=== PATIENT | female | born 1950 | race Caucasian/White ===

== ENCOUNTER 2018-03-16 17:01 | Inpatient (IN) | payer MEDICARE ==
[~2018-03-16] VITALS: Ht 160 cm; Wt 132.6 kg
--- NOTE | 2018-03-16 18:11 | PM&R H&P / Post Admit Assess ---
History of Present Illness HPI/Chief Complaint CC: Debility following left knee replacement uncomplicated per Dr Aleman HPI: This is a 68yoWF clinic patient of Dr Andre Barreto in [place] who presents to the IRF following DC from [facility] in [place] after an uncomplicated left knee replacement but having debility and significant hypoxia during exertion precluding a fast recovery following elective surgery so she was admitted for Pulmonology consultation along with intense therapy in order to optimize her recovery and return home with her . She had her right knee replaced in 2010 and had a long recovery. Patient is maintained on CPAP for DOM but had not required home O2 in the past but has had extensive cardiac history in [facility] in [place] s/p stent in the past. She has required an increase in her Prozac due to tearfulness while at [place] yesterday along with prn Xanax so that will be monitored closely also. Source: patient Exam Limitations: no limitations Date Seen 03/16/18 Time Seen by a Provider: 18:30 Attending Physician Tricia Mccormick DO PCP Dr Andre Barreto Referring Physician Date of Admission Home Medications & Allergies Home Medications Reviewed patient Home Medication Reconciliation performed by pharmacy medication reconciliations concrete engineering technician and/or nursing. Patients Allergies have been reviewed. 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) Smoking Status: Never a Smoker Seasonal Allergies Seasonal Allergies: No Past Medical History Surgeries: Abdominal (exp lap appy), Orthopedic Respiratory: Chronic Bronchitis, Sleep Apnea Currently Using CPAP: Yes Currently Using BIPAP: No Cardiac: Chronic Edema/Swelling, Coronary Artery Disease, High Cholesterol, Hypertension Gastrointestinal: Chronic Constipation Musculoskeletal: Arthritis, Chronic Back Pain Psychosocial: Anxiety, Depression Review of Systems Constitutional: dizziness, malaise, weakness EENTM: no symptoms reported Respiratory: dyspnea on exertion, short of breath, wheezing Cardiovascular: no symptoms reported Gastrointestinal: constipation Genitourinary: no symptoms reported Musculoskeletal: joint pain Skin: no symptoms reported Psychiatric/Neurological: Anxiety, Depressed, Emotional Problems All Other Systems Reviewed Negative Unless Noted: Yes Physical Exam Exam Vital Signs Vital Signs Date Time Temp Pulse Resp B/P (MAP) Pulse Ox O2 Delivery O2 Flow Rate FiO2 03/17/18 09:06 97 Room Air 03/17/18 08:07 89 111/70 (84) 03/17/18 06:29 2.00 03/17/18 05:31 98.3 18 Capillary Refill : General Appearance: No Apparent Distress, WD/WN, Chronically ill, Obese HEENT: PERRL/EOMI, TMs Normal, Normal ENT Inspection, Pharynx Normal, Moist Mucous Membranes Neck: Full Range of Motion, Normal Inspection, Non Tender, Supple Respiratory: Chest Non Tender, Lungs Clear, Normal Breath Sounds, No Accessory Muscle Use, No Respiratory Distress, Decreased Breath Sounds Cardiovascular: Regular Rate, Rhythm, No Edema, No Gallop, No JVD, No Murmur, Normal Peripheral Pulses Gastrointestinal: Normal Bowel Sounds, No Organomegaly, No Pulsatile Mass, Non Tender, Soft Extremity: Normal Capillary Refill, Normal Inspection, Normal Range of Motion ( except left leg post op site), Non Tender, No Calf Tenderness, No Pedal Edema Neurologic/Psychiatric: Alert, Oriented x3, No Motor/Sensory Deficits, Normal Mood/Affect Skin: Normal Color, Warm/Dry Lymphatic: No Adenopathy Results Results/Procedures Labs Laboratory Tests 03/17/18 05:25 Patient resulted labs reviewed. Assessment/Plan Assessment and Plan Assess & Plan/Chief Complaint Assessment: Right total knee replacement POD # 2 Hypoxia requiring supplemental oxygen new onset Chronic bronchitis Anemia s/p surgery DVT prophylaxis with Eliquis DOM on CPAP HTN HLP CAD s/p stent Chronic constipation Depression Anxiety Obesity OAB Insomnia Plan: IRF Monitor depression and hypoxia closely Obtain ECHO and Cardiology records at [place] (1) Status post left knee replacement (2) Anemia due to blood loss, acute (3) Oxygen dependent Onset Date: ~ 03/14/2018 (4) Chronic bronchitis (5) DOM on CPAP (6) CAD (coronary artery disease) (7) Stented coronary artery (8) Depression (9) Anxiety (10) Hypertension (11) Hyperlipidemia (12) Tearfulness (13) Overactive bladder (14) Constipation (15) Insomnia (16) DVT prophylaxis Post Admission Physician Asses Date seen by provider: Mar 16, 2018 Time seen by provider: 18:30 The preadmission screen agrees with the post admission assessment that the patient is a good candidate for inpatient rehabilitation. The patient will have a comprehensive program of inpatient rehabilitation with a goal of maximizing level of functional independence prior to discharge home with family. The patient will have PT/OT ninety minutes per day, each discipline, five days a week for gait, strengthening, conditioning, balance, ADLs, any patient/family/caregiver training as necessary. Speech therapy to do cognitive assessment and treat as indicated. Rehabilitation nursing to assist with bowel, bladder, skin, wound care, medication administration, pain management. Fur Coat Sewer to assist with discharge planning, community reentry. SCD's for DVT prophylaxis. She appears to be well motivated to participate in three hours of therapy a day. She should be able to tolerate three hours of therapy a day from a medical standpoint. She should benefit from the three hours of therapy a day. She has a reasonable discharge plan, reasonable discharge rehabilitation goals and a supportive family. She has various comorbidities that need to be closely monitored with medications and treatments adjusted on a daily basis as needed. These include: [] Barriers to discharge for this patient who had been independent prior to this are for her to be modified independent to supervision for ADLs and mobility skills prior to discharge home with [family], so as to lessen the burden of the caregivers. Risks for this patient include: 1. Fall 2. Fracture 3. DVT 4. Pulmonary embolism 5. Wound infection 6. Skin breakdown 7. Contractures 8. Poorly controlled pain 9. Urinary retention 10. UTI 11. Respiratory infection 12. Aspiration Estimated Length of Stay: 7 days Prognosis: Rehab prognosis appears good for goal of discharge home with family modified independent to supervision for ADLs and mobility skills. TRICIA MCCORMICK DO Mar 16, 2018 18:11
[2018-03-16] MEDS ORDERED: BISACODYL 10 MG SUPP (DULCOLAX) PR PRN (18:15)
[2018-03-16] MEDS ORDERED: PATIENT MAY USE OWN MEDS, ALL MC SCH (18:15)
[2018-03-16] MEDS ORDERED: ONDANSETRON 4 MG (ZOFRAN) ORAL DISSOLVE TAB PO PRN (18:15)
[2018-03-16] MEDS ORDERED: ALPRAZolam 0.25 MG (XANAX) TAB PO PRN (18:15)
[2018-03-16] MEDS ORDERED: guaiFENesin/CODEINE (ROBITUSSIN AC) 10ML UDC PO PRN (18:15)
[2018-03-16] MEDS ORDERED: diphenhydrAMINE 25 MG TAB (BENADRYL) PO PRN (18:15)
[2018-03-16] MEDS ORDERED: CALCIUM CARBONATE 500 MG (TUMS) TAB.CHEW PO PRN (18:15)
[2018-03-16] MEDS ORDERED: ACETAMINOPHEN 500 MG TAB (TYLENOL) PO PRN (18:15)
[2018-03-16] MEDS ORDERED: MELATONIN 3 MG TABLET PO PRN (18:15)
[2018-03-16] MEDS ORDERED: LOPERAMIDE 2 MG (IMODIUM) CAP PO PRN (18:15)
[2018-03-16 18:52] VITALS: BP 114/71
--- NOTE | 2018-03-16 18:53 | NUR ---
Admitted to room 224-1, with an admitting diagnosis of debility post TKR, on 03/16/18 from [place] in [facility] , accompanied by .KETTY CENTENO introduced to surroundings, call light, bed controls, phone, TV, temperature control, lights, meal times, smoking policy, visitor policy, side rail policy, bathrooms and showers. Patient Rights given to patient in the handbook.KETTY CENTENO verbalizes understanding that [facility] is not responsible for the loss or damage to any personal effects or valuables that are kept in the patients posession during their hospitalization. The following Patient Care Plans were discussed with the : Discharge Planning, ,, and , potential for injury r/t fall. KETTY CENTENO verbalizes understanding of Interdisciplinary Patient Education. Patient and/or family were informed about the Rapid Response Team and its purpose. Patient received Patient Rights Booklet, which includes Privacy Act Statement and Data Collection Information Summary.
--- OUTSIDE RECORDS SUMMARY | 2018-03-16 19:07 | XMS REPORT ---
Author Author [facility] Medical Staff Organization [facility] Address [address], [place] [address] Phone [phone] Care Team Providers Care Hooker Operator Name Role Phone CHIQUITA ALFARO MD PP [phone] Summary purpose TRANSITION OF CARE AUTO GENERATION Chief Complaint and Reason for Visit Admit Diagnosis 1 PHYSICAL THERAPY NEC Problem list No authorized problems tracked for continuity of care are available for this visit. Encounters No authorized problems tracked for encounter diagnoses are available for this visit. Medications No medications recorded for this patient visit Allergies, adverse reactions, alerts Allergen Category Ingredient Status Reaction Severity Onset Penicillins Drug Allergy Penicillins Confirmed or Verified Hives Sulfa (Sulfonamide Antibiotics) Drug Allergy Sulfa (Sulfonamide Antibiotics) Confirmed or Verified Hives Zinc Drug Allergy Zinc Confirmed or Verified Hives Immunizations No immunizations recorded for this patient visit Relevant diagnostic tests and/or laboratory data No authorized results are available for this patient visit History of procedures No procedures recorded for this patient visit. Functional status No functional or cognitive status observations are available for this visit. Vital signs No authorized vital signs are available for this visit. Social history No Social History or smoking status observations were recorded for this visit. ( Unknown if ever smoked.) Treatment Plan No treatment plan text is available for this visit. Hospital discharge instructions No discharge instruction text is available for this visit.
--- OUTSIDE RECORDS SUMMARY | 2018-03-16 19:07 | XMS REPORT ---
Author Author [facility] Medical Staff Organization [facility] Address [address], [place] [address] Phone [phone] Care Team Providers Care Telesales Advisor Name Role Phone CHIQUITA ALFARO MD PP [phone] Summary purpose TRANSITION OF CARE AUTO GENERATION [...]
--- OUTSIDE RECORDS SUMMARY | 2018-03-16 19:07 | XMS REPORT ---
Author Author [employer] [facility] Medical Staff Organization [facility] Address [address] [place], [place] [address] Phone [phone] Care Team Providers Care Human Service Worker Name Role Phone CHIQUITA ALFARO MD PP [phone] Summary purpose TRANSITION OF CARE AUTO GENERATION [...]
--- OUTSIDE RECORDS SUMMARY | 2018-03-16 19:07 | XMS REPORT ---
Author Author [facility] Medical Staff Organization [facility] Address [address] [place], [place] [address] Phone [phone] Care Team Providers Care Edge Stripper Name Role Phone CHIQUITA ALFARO MD PP [phone] Summary purpose TRANSITION OF CARE AUTO GENERATION Chief Complaint and Reason for Visit Admit Diagnosis 1 PHYSICAL THERAPY NEC Problem list No authorized problems tracked for continuity of care are available for this visit. Encounters No authorized problems tracked for encounter diagnoses are available for this visit. Medications No home medications recorded for this patient visit Allergies, [...] for this patient visit History of procedures Procedure Code Code Type Description Date Performed Performing Physician 11497 CPT-4 THERAPEUTIC EXERCISES 04-23-2014 CHIQUITA ALFARO 87873 CPT-4 PT EVALUATION 04-23-2014 CHIQUITA ALFARO G8978 CPT-4 MOBILITY CURRENT STATUS 04-23-2014 CHIQUITA ALFARO G8979 CPT-4 MOBILITY GOAL STATUS 04-23-2014 CHIQUITA ALFARO Functional status No functional or cognitive status [...]
--- OUTSIDE RECORDS SUMMARY | 2018-03-16 19:07 | XMS REPORT ---
Author [facility] Medical [facility] Organization [facility] Address [address], [place] [address] Phone [phone] Summary purpose TRANSITION OF CARE AUTO GENERATION Chief Complaint and Reason for Visit No authorized Reason for Visit (Admitting Diagnosis) is available for this visit. Problem list No authorized problems tracked for [...] visit Relevant diagnostic tests and/or laboratory data RESULTS Radiology Results [id number] Bilateral Screen Digital Mammo PACs Image DATE OF EXAM: 2015 [facility] 0845-BILAT SCREEN DIG MAMMO : RADIOLOGY REPORT DATE OF SERVICE: 08/23/15 HISTORY: Screening for possible malignant neoplasm. BILATERAL DIGITAL SCREENING MAMMOGRAPHIC STUDY WITH iCAD SecondLook 7.2-H+ 1035 HOURS There is predominantly fatty parenchyma bilaterally. Asymmetric areas of fibrous tissue and intramammary type lymph node densities in the superior lateral right and left breast demonstrated. No distinct mass, stellate lesion, or abnormal stippled clustered calcification can be seen. Compared to the prior study dated 02/27/2014, 03/07/2010, interval change is not seen. Yearly mammography is recommended. CAD imaging does indicate benign calcifications vascular type bilaterally and an asymmetric fibrous tissue on the left oblique and cephalocaudad view benign presentation. IMPRESSION: 1. Stable mammographic study with no evidence of malignant change. 2. BI-RAD breast assessment category II benign finding. DO BA Jauregui/ellis 08/23/2015 10:48:00 / 08/23/2015 11:26:48 cc:Dr. Andre Alfaro This document has been electronically Signed by: On: DATE OF EXAM: 2015 [facility] 0845-BILAT SCREEN DIG MAMMO : RADIOLOGY REPORT DATE OF SERVICE: 08/23/15 HISTORY: Screening for possible malignant neoplasm. BILATERAL DIGITAL SCREENING MAMMOGRAPHIC STUDY WITH iCAD SecondLook 7.2-H+ 1035 HOURS There is predominantly fatty parenchyma bilaterally. Asymmetric areas of fibrous tissue and intramammary type lymph node densities in the superior lateral right and left breast demonstrated. No distinct mass, stellate lesion, or abnormal stippled clustered calcification can be seen. Compared to the prior study dated 02/27/2014, 03/07/2010, interval change is not seen. Yearly mammography is recommended. CAD imaging does indicate benign calcifications vascular type bilaterally and an asymmetric fibrous tissue on the left oblique and cephalocaudad view benign presentation. IMPRESSION: 1. Stable mammographic study with no evidence of malignant change. 2. BI-RAD breast assessment category II benign finding. Thomas Faria DO /wi 08/23/2015 10:48:00 / 08/23/2015 11:26:48 cc:Dr. Andre Alfaro This document has been electronically Signed by: THOMAS FARIA DO On: 2015 12:58P Result Amended on 2015-08-23 at 12:58:30. Previous status was [place]. History of procedures Procedure Code Code Type Description Date Performed Performing Physician 03822 CPT-4 MAMMOGRAM, SCREENING 08-23-2015 ANDRE ALFARO 51181 CPT-4 COMP SCREEN MAMMOGRAM ADD-ON 08-23-2015 ANDRE ALFARO Functional status No functional or cognitive [...]
--- OUTSIDE RECORDS SUMMARY | 2018-03-16 19:07 | XMS REPORT ---
Author Author [facility] Medical Staff Organization [facility] Address [address] [place], [place] [address] Phone [phone] Care Team Providers Care Sand Screener Operator Name Role Phone CHIQUITA ALFARO MD PP [phone] Summary purpose TRANSITION OF CARE AUTO GENERATION [...] Code Type Description Date Performed Performing Physician 20014 CPT-4 THERAPEUTIC EXERCISES 04-23-2014 CHIQUITA ALFARO 32243 CPT-4 PT EVALUATION 04-23-2014 CHIQUITA ALFARO [id number] [...]
--- OUTSIDE RECORDS SUMMARY | 2018-03-16 19:07 | XMS REPORT ---
Author Author [facility] Medical Staff Organization [facility] Address [address], [place] [address] Phone [phone] Summary purpose TRANSITION OF CARE AUTO GENERATION [...] tests and/or laboratory data RESULTS Radiology Results [id number] Bilateral Screen Digital Mammo PACs Image DATE OF EXAM: 2015 [facility] 0845-BILAT SCREEN DIG MAMMO : RADIOLOGY REPORT [...] 08/23/2015 10:48:00 / 08/23/2015 11:26:48 cc:Dr. Andre Barreto This document has been electronically Signed by: On: DATE OF EXAM: 2015 [facility] 0845-BILAT SCREEN DIG MAMMO : RADIOLOGY REPORT [...] category II benign finding. Thomas Faria DO WP/pr 08/23/2015 10:48:00 / 08/23/2015 11:26:48 cc:Dr. Andre Barreto This document has been electronically Signed by: THOMAS FARIA DO On: 2015 12:58P Result Amended on 2015-08-23 at 12:58:30. Previous status was [place]. History of procedures No procedures recorded for [...]
--- OUTSIDE RECORDS SUMMARY | 2018-03-16 19:08 | XMS REPORT | Clinical Summary ---
Author Author Admin, [place] Organization [facility] Address Unknown Phone Unavailable Allergies, Adverse Reactions, Alerts Allergy Name Reaction Description Start Date Severity Status Provider SULFA Mild No Longer Active Jillina Frazell CERTIFIED ALCOHOL AND DRUG COUNSELOR PENICILLIN Mild No Longer Active Jillina Frazell CERTIFIED ALCOHOL AND DRUG COUNSELOR ZINC Mild No Longer Active Jillina Frazell CERTIFIED ALCOHOL AND DRUG COUNSELOR SULFA Critical No Longer Active Marcelle Yesi RMA PENICILLIN Critical No Longer Active Marcelle Yesi RMA ZINC Critical No Longer Active Marcelle Yesi RMA PENICILLIN UNK Inactive Red Funes MA ZINC UNK Inactive Red Funes MA SULFA UNK Inactive Red Funes MA Conditions or Problems Problem Name Problem Code Onset Date Status Entry Date Provider Comment Standard Description Annotate Hyperlipidemia 272.4 Refinement Andre Barreto MD Other and unspecified hyperlipidemia Mixed hyperlipidemia 272.4 Active Andre Barreto MD Other and unspecified hyperlipidemia Hypertension 401.9 Inactive Andre Barreto MD Unspecified essential hypertension Hypertension, benign essential, controlled 401.1 Active Andre Barreto MD Benign essential hypertension DYSPNEA 786.09 Resolved Andre Barreto MD Other dyspnea and respiratory abnormality FATIGUE 780.79 Resolved Andre Barreto MD Other malaise and fatigue DYSPNEA 786.05 Resolved Andre Barreto MD Shortness of breath Coronary artery disease 414.00 Active Andre Barreto MD Coronary atherosclerosis of unspecified type of vessel, [place] or graft Obstructive sleep apnea 327.23 Active Andre Barreto MD Obstructive sleep apnea (adult) (pediatric) Health screening V70.0 Refinement Andre Barreto MD Routine general medical examination at a health care facility Well Adult Exam V70.0 Active Andre Barreto MD Routine general medical examination at a health care facility Fever 780.60 Resolved Andre Barreto MD Fever, unspecified Actinic keratosis 702.0 Resolved Andre Barreto MD Actinic keratosis Seborrheic keratosis 702.19 Resolved Andre Barreto MD Other seborrheic keratosis Skin tag 701.9 Resolved Andre Barreto MD Unspecified hypertrophic and atrophic conditions of skin Elevated blood sugar 790.29 Inactive Marcelle [facility] Other abnormal glucose Glucose intolerance 271.3 Active Andre Barreto MD Intestinal disaccharidase deficiencies and disaccharide malabsorption Osteoarthritis, knee, left 715.96 Active Andre Barreto MD Osteoarthrosis, unspecified whether generalized or localized, involving lower leg Weakness, muscle 728.87 Resolved Andre Barreto MD Muscle weakness (generalized) Dyshidrotic eczema, hands 705.81 Resolved Andre Barreto MD Dyshidrosis Depression 311 Refinement Andre Barreto MD Depressive disorder, not elsewhere classified Major depressive disorder, single episode, moderate 311 Active Andre Barreto MD Depressive disorder, not elsewhere classified Insomnia, chronic 307.42 Active Andre Barreto MD Persistent disorder of initiating or maintaining sleep Urinary incontinence, urge 788.31 Active Andre Barreto MD Urge incontinence Bronchitis, chronic 491.9 Active Andre Barreto MD Unspecified chronic bronchitis Postmenopausal status V49.81 Resolved Andre Barreto MD Asymptomatic postmenopausal status (age-related) (natural) Family history of osteoporosis V17.81 Resolved Andre Barreto MD Family history of osteoporosis Unsteady gait 781.2 Resolved Andre Barreto MD Abnormality of gait Continuous positive airway pressure rx V46.2 Resolved Andre Barreto MD Other dependence on machines, supplemental oxygen Osteopenia 733.90 Active Pushpa Hernandez APRN Disorder of bone and cartilage, unspecified Obstructive sleep apnea 327.23 Active Andre Barreto MD Obstructive sleep apnea (adult) (pediatric) Acute exacerbation of chronic bronchitis 491.22 Inactive Solitario Howe MD Obstructive chronic bronchitis with acute bronchitis Sinusitis 473.9 Resolved Andre Barreto MD Unspecified sinusitis (chronic) Abscess, skin 682.9 Resolved Andre Barreto MD Cellulitis and abscess of unspecified sites Benign paroxysmal positional vertigo 386.11 Resolved Andre Barreto MD Benign paroxysmal positional vertigo Body Mass Index 50.0-59.9 Adult Active Andre Barreto MD Body Mass Index 50.0-59.9, adult Obesity Class III (BMI >=40) Active Andre Barreto MD Morbid obesity DYSPNEA ICD-786.09 Inactive Andre Barreto MD 2012 FATIGUE ICD-780.79 Inactive Andre Barreto MD 2012 DYSPNEA ICD-786.05 Inactive Andre Barreto MD 2012 Fever ICD-780.60 Inactive Andre Barreto MD 05/23 Actinic keratosis ICD-702.0 Inactive Andre Barreto MD Seborrheic keratosis ICD-702.19 Inactive Andre Barreto MD Skin tag ICD-701.9 Inactive Andre Barreto MD 2014 Weakness, muscle ICD-728.87 Inactive Andre Barreto MD Dyshidrotic eczema, hands ICD-705.81 Inactive Andre Barreto MD Postmenopausal status ICD-V49.81 Inactive Andre Barreto MD Family history of osteoporosis ICD-V17.81 Inactive Andre Barreto MD Unsteady gait ICD-781.2 Inactive Andre Barreto MD Continuous positive airway pressure rx ICD-V46.2 Inactive Andre Barreto MD Acute exacerbation of chronic bronchitis ICD-491.22 Inactive Solitario Howe MD Sinusitis ICD-473.9 Inactive Andre Barreto MD Abscess, skin ICD-682.9 Inactive Andre Barreto MD Benign paroxysmal positional vertigo ICD-386.11 Inactive Andre Barreto MD Medication List Medication Instructions Start Date Stop Date Generic Name NDC Status Provider Patient Instruction PREDNISONE 20 MG ORAL TABLET 2 po qd x 4 days, then 1 po qd x 4 days, then 0.5 po qd x 4 days PREDNISONE 08229187549 Active Andre Barreto MD Active DOXYCYCLINE MONOHYDRATE 100 MG ORAL CAPSULE 1 po BID x 10 days DOXYCYCLINE MONOHYDRATE 26789554428 No Longer Active Andre Barreto MD Active TUSSIONEX PENNKINETIC ER 10-8 MG/5ML ORAL SUSPENSION EXTENDED RELEASE 5ml po q12hr PRN Cough HYDROCOD POLST-CHLORPHEN POLST 07073108125 Active Andre Barreto MD Active ADVAIR DISKUS 250-50 MCG/DOSE INHALATION AEROSOL POWDER BREATH ACTIVATED 1 INH BID FLUTICASONE-SALMETEROL 95162090909 Active Andre Barreto MD Active MYRBETRIQ 25 MG ORAL TABLET EXTENDED RELEASE 24 HOUR 1 po qd MIRABEGRON 73400745113 Active Andre Barreto MD Active TRAMADOL HCL 50 MG ORAL TABLET 2 po q 6 hrs prn TRAMADOL HCL 78019558029 No Longer Active Andre Barreto MD Active MECLIZINE HCL 25 MG ORAL TABLET 1 po q8hr PRN Dizziness MECLIZINE HCL 64314795950 No Longer Active Andre Barreto MD Active MELOXICAM 15 MG ORAL TABLET 1 po qd PRN Pain MELOXICAM 68365500812 Active Andre Barreto MD Active ATORVASTATIN CALCIUM 40 MG ORAL TABLET 1 po qHS ATORVASTATIN CALCIUM 53705704814 No Longer Active Andre Barreto MD Active ATORVASTATIN CALCIUM 20 MG ORAL TABLET 1 po MWF ATORVASTATIN CALCIUM 91995635174 Active Andre Barreto MD Active GUAIFENESIN DM 400-20 MG ORAL TABLET 1 pill by mouth twice daily, if needed for cough DEXTROMETHORPHAN-GUAIFENESIN 34847958459 No Longer Active Andre Barreto MD Active BACTROBAN 2 % EXTERNAL OINTMENT Apply to affected area BID 05/18 MUPIROCIN 95999172007 No Longer Active Moira Price MA Active CLINDAMYCIN HCL 300 MG ORAL CAPSULE 1 po QID x 7 days CLINDAMYCIN HCL 91208114449 No Longer Active David King APRN Active BACTRIM DS 800-160 MG ORAL TABLET 1 tab by mouth twice daily 2017 TRIMETHOPRIM-SULFAMETHOXAZOLE 26671306963 No Longer Active Javanllkinza King APRN Active CEFDINIR 300 MG ORAL CAPSULE by mouth twice a day CEFDINIR 49557880765 No Longer Active David Montsemaury REYNA Active BENZONATATE 200 MG ORAL CAPSULE 1 three times a day as needed for cough 03/27 BENZONATATE 09477736312 No Longer Active Luna Prabhakar Active ZITHROMAX Z-NEVAEH 250 MG ORAL TABLET 2 today and then 1 daily for 4 days 03/27 AZITHROMYCIN 05300670569 No Longer Active Luna Prabhakar Active PREDNISONE 20 MG ORAL TABLET 2 daily for 3 days then 1 daily for 3 days 03/27 PREDNISONE 45831271782 No Longer Active Luna Prabhakar Active CLOPIDOGREL BISULFATE 75 MG ORAL TABLET 1 po qd CLOPIDOGREL BISULFATE 59741583911 Active Andre Barreto MD Active FUROSEMIDE 20 MG ORAL TABLET 1 po qd PRN Edema FUROSEMIDE 37733302143 Active Andre Barreto MD Active PROAIR HFA 108 (90 Base) MCG/ACT INHALATION AEROSOL SOLUTION 2 puffs q4hr PRN Shortness of air/Wheezing ALBUTEROL SULFATE 28123468798 Active Andre Barreto MD Active ATORVASTATIN CALCIUM 80 MG ORAL TABLET 1 po qHS ATORVASTATIN CALCIUM 23601433317 No Longer Active Andre Barreto MD Active AMBIEN 5 MG ORAL TABLET 1 po qHS PRN Insomnia ZOLPIDEM TARTRATE 22732327439 Active Andre Barreto MD Active DETROL 2 MG ORAL TABLET 1 po qd TOLTERODINE TARTRATE 77694952177 Active Andre Barreto MD Active NITROGLYCERIN 0.4 MG SUBLINGUAL TABLET SUBLINGUAL 1 SL q5min PRN Chest pain up to 3 doses NITROGLYCERIN 55938879664 Active Andre Barreto MD Active TOPROL XL 50 MG ORAL TABLET EXTENDED RELEASE 24 HOUR 1 po qd METOPROLOL SUCCINATE 52695464115 Active Andre Barreto MD Active FLUOXETINE HCL 40 MG ORAL CAPSULE 1 po qd FLUOXETINE HCL 29400602552 Active Andre Barreto MD Active BENICAR HCT 40-25 MG ORAL TABLET Take one by mouth daily OLMESARTAN MEDOXOMIL-HCTZ 06038534698 No Longer Active Andre Barreto MD Active LOSARTAN POTASSIUM-HCTZ 100-25 MG ORAL TABLET 1 po qd LOSARTAN POTASSIUM-HCTZ 75210801374 Active Andre Barreto MD Active BETAMETHASONE DIPROPIONATE 0.05 % EXTERNAL OINTMENT Apply to affected areas BID for up to 2 weeks BETAMETHASONE DIPROPIONATE 59401598542 No Longer Active Andre Barreto MD Active ZOFRAN 4 MG ORAL TABLET 1 po q6hr PRN Nausea ONDANSETRON HCL 59024847290 No Longer Active Andre Barreto MD Active CIPRO 500 MG ORAL TABLET 1 tablet by mouth twice daily CIPROFLOXACIN HCL 52085362337 No Longer Active Andre Barreto MD Active SYMBICORT 160-4.5 MCG/ACT INHALATION AEROSOL 2 puffs inhaled bid BUDESONIDE-FORMOTEROL FUMARATE 48327194058 No Longer Active Andre Barreto MD Active DICLOFENAC SODIUM 75 MG ORAL TABLET DELAYED RELEASE 1 tablet by mouth twice daily DICLOFENAC SODIUM 46078286568 No Longer Active Andre Barreto MD Active PROZAC 40 MG ORAL CAPSULE 1 cap by mouth at bedtime FLUOXETINE HCL 35500920229 No Longer Active Andre Barreto MD Active HYDROCODONE-ACETAMINOPHEN 5-325 MG ORAL TABLET 1 po q 6hr PRN Pain HYDROCODONE-ACETAMINOPHEN 71432180385 No Longer Active Andre Barreto MD Active HYDROCODONE-ACETAMINOPHEN 5-325 MG ORAL TABLET 1 po q 6hr PRN Pain HYDROCODONE-ACETAMINOPHEN 5-325 MG ORAL TABLET 967122 HYDROCODONE- ACETAMINOPHEN Inactive PROZAC 40 MG ORAL CAPSULE 1 cap by mouth at bedtime PROZAC 40 MG ORAL CAPSULE 764989 FLUOXETINE HCL Inactive DICLOFENAC SODIUM 75 MG ORAL TABLET DELAYED RELEASE 1 tablet by mouth twice daily DICLOFENAC SODIUM 75 MG ORAL TABLET DELAYED RELEASE 691414 DICLOFENAC SODIUM Inactive SYMBICORT 160-4.5 MCG/ACT INHALATION AEROSOL 2 puffs inhaled bid SYMBICORT 160-4.5 MCG/ACT INHALATION AEROSOL BUDESONIDE-FORMOTEROL FUMARATE Inactive ZOFRAN 4 MG ORAL TABLET 1 po q6hr PRN Nausea ZOFRAN 4 MG ORAL TABLET 227857 ONDANSETRON HCL Inactive BETAMETHASONE DIPROPIONATE 0.05 % EXTERNAL OINTMENT Apply to affected areas BID for up to 2 weeks BETAMETHASONE DIPROPIONATE 0.05 % EXTERNAL OINTMENT 196402 BETAMETHASONE DIPROPIONATE Inactive BENICAR HCT 40-25 MG ORAL TABLET Take one by mouth daily BENICAR HCT 40-25 MG ORAL TABLET 884731 OLMESARTAN MEDOXOMIL-HCTZ Inactive ATORVASTATIN CALCIUM 80 MG ORAL TABLET 1 po qHS ATORVASTATIN CALCIUM 80 MG ORAL TABLET 450219 ATORVASTATIN CALCIUM Inactive PREDNISONE 20 MG ORAL TABLET 2 daily for 3 days then 1 daily for 3 days 03/27 PREDNISONE 20 MG ORAL TABLET 033825 PREDNISONE Inactive ZITHROMAX Z-NEVAEH 250 MG ORAL TABLET 2 today and then 1 daily for 4 days 03/27 ZITHROMAX Z-NEVAEH 250 MG ORAL TABLET 424213 AZITHROMYCIN Inactive BENZONATATE 200 MG ORAL CAPSULE 1 three times a day as needed for cough 03/27 BENZONATATE 200 MG ORAL CAPSULE 740262 BENZONATATE Inactive BACTRIM DS 800-160 MG ORAL TABLET 1 tab by mouth twice daily 2017 BACTRIM DS 800-160 MG ORAL TABLET 609765 TRIMETHOPRIM- SULFAMETHOXAZOLE Inactive BACTROBAN 2 % EXTERNAL OINTMENT Apply to affected area BID 05/18 BACTROBAN 2 % EXTERNAL OINTMENT MUPIROCIN Inactive GUAIFENESIN DM 400-20 MG ORAL TABLET 1 pill by mouth twice daily, if needed for cough GUAIFENESIN DM 400-20 MG ORAL TABLET 6002124 DEXTROMETHORPHAN-GUAIFENESIN Inactive ATORVASTATIN CALCIUM 40 MG ORAL TABLET 1 po qHS ATORVASTATIN CALCIUM 40 MG ORAL TABLET 161904 ATORVASTATIN CALCIUM Inactive MECLIZINE HCL 25 MG ORAL TABLET 1 po q8hr PRN Dizziness MECLIZINE HCL 25 MG ORAL TABLET 085914 MECLIZINE HCL Inactive TRAMADOL HCL 50 MG ORAL TABLET 2 po q 6 hrs prn TRAMADOL HCL 50 MG ORAL TABLET 173532 TRAMADOL HCL Inactive CIPRO 500 MG ORAL TABLET 1 tablet by mouth twice daily CIPRO 500 MG ORAL TABLET 549199 CIPROFLOXACIN HCL Inactive CEFDINIR 300 MG ORAL CAPSULE by mouth twice a day CEFDINIR 300 MG ORAL CAPSULE 060971 CEFDINIR Inactive CLINDAMYCIN HCL 300 MG ORAL CAPSULE 1 po QID x 7 days CLINDAMYCIN HCL 300 MG ORAL CAPSULE 599745 CLINDAMYCIN HCL Inactive DOXYCYCLINE MONOHYDRATE 100 MG ORAL CAPSULE 1 po BID x 10 days DOXYCYCLINE MONOHYDRATE 100 MG ORAL CAPSULE 2477805 DOXYCYCLINE MONOHYDRATE Inactive Advance Directives Directive Description Start Date DISCUSSED WITH PATIENT -- NO DECISION MADE Vital Signs Date Name Value Unit Range Description blood pressure, diastolic 78 mm[Hg] BP pat blood pressure, systolic 154 mm[Hg] BP sys height E&M 63 [in_us] Bdy height pulse rate E&M 69 /min Heart rate temperature E&M 99.4 [degF] Body temperature weight E&M 290 [lb_av] Weight Measured blood pressure, diastolic 76 mm[Hg] BP pat blood pressure, systolic 142 mm[Hg] BP sys height E&M 63 [in_us] Bdy height pulse rate E&M 74 /min Heart rate temperature E&M 98.7 [degF] Body temperature weight E&M 288.80 [lb_av] Weight Measured blood pressure, diastolic 76 mm[Hg] BP pat blood pressure, systolic 138 mm[Hg] BP sys height E&M 63 [in_us] Bdy height pulse rate E&M 71 /min Heart rate temperature E&M 97.5 [degF] Body temperature weight E&M 283.50 [lb_av] Weight Measured blood pressure, diastolic 64 mm[Hg] BP pat blood pressure, systolic 143 mm[Hg] BP sys height E&M 63 [in_us] Bdy height pulse rate E&M 88 /min Heart rate temperature E&M 99.1 [degF] Body temperature weight E&M 281.50 [lb_av] Weight Measured blood pressure, diastolic 68 mm[Hg] BP pat blood pressure, systolic 137 mm[Hg] BP sys height E&M 63 [in_us] Bdy height pulse rate E&M 68 /min Heart rate temperature E&M 97.3 [degF] Body temperature weight E&M 281.5 [lb_av] Weight Measured blood pressure, diastolic 71 mm[Hg] BP pat blood pressure, systolic 148 mm[Hg] BP sys height E&M 63 [in_us] Bdy height pulse rate E&M 71 /min Heart rate temperature E&M 98.6 [degF] Body temperature weight E&M 280 [lb_av] Weight Measured blood pressure, diastolic 73 mm[Hg] BP pat blood pressure, systolic 119 mm[Hg] BP sys height E&M 63 [in_us] Bdy height pulse rate E&M 67 /min Heart rate temperature E&M 98.4 [degF] Body temperature weight E&M 279 [lb_av] Weight Measured blood pressure, diastolic 80 mm[Hg] BP pat blood pressure, systolic 130 mm[Hg] BP sys height E&M 63 [in_us] Bdy height pulse rate E&M 72 /min Heart rate temperature E&M 98.6 [degF] Body temperature weight E&M 280 [lb_av] Weight Measured blood pressure, diastolic 76 mm[Hg] BP pat blood pressure, systolic 176 mm[Hg] BP sys height E&M 63 [in_us] Bdy height pulse rate E&M 92 /min Heart rate temperature E&M 98 [degF] Body temperature weight E&M 278 [lb_av] Weight Measured blood pressure, diastolic 68 mm[Hg] BP pat blood pressure, systolic 149 mm[Hg] BP sys height E&M 63 [in_us] Bdy height pulse rate E&M 59 /min Heart rate temperature E&M 98.6 [degF] Body temperature weight E&M 284.31 [lb_av] Weight Measured blood pressure, diastolic 52 mm[Hg] BP pat blood pressure, systolic 136 mm[Hg] BP sys height E&M 63 [in_us] Bdy height pulse rate E&M 52 /min Heart rate temperature E&M 99.3 [degF] Body temperature weight E&M 281.5 [lb_av] Weight Measured Diagnostic Results Date Name Value Unit Range Description Lab Report: CBC - Hematology leukocyte count, blood 8.1 10^3/MM^3 10*3/mm3 4.6-10.2 erythrocyte (RBC) count 3.96 10^6/MM^3 10*6/mm3 3.80-5.80 hemoglobin, blood 12.4 g/dL 12.0-16.0 hematocrit, blood 38.3 % 37.0-47.0 mean corpuscular volume, RBC 97 fL 80-97 mean corpuscular hemoglobin, RBC 31.3 pg 27.0-31.2 mean corpuscular hemoglobin concentration, RBC 32.4 G/DL % 31.8- 35.4 red blood cell distribution width 13.1 % 11.6-14.8 platelet count 247 10^3/MM^3 10*3/mm3 142-424 Lab Report: Comp. Metabolic Panel - Chemistry sodium, serum 139 mmol/L 094-167 0042/05/04 carbon dioxide, venous blood 28.7 mmol/L 21.0-32.0 potassium, serum 4.2 mmol/L 3.5-5.2 chloride, serum 102 mmol/L 98-107 blood glucose 120 mg/dL 65-95 urea nitrogen, blood 19 mg/dL 7-18 creatinine, serum 0.99 mg/dL 0.60-1.30 alanine aminotransferase (SGPT), serum 40 U/L 12-78 aspartate aminotransferase (SGOT), serum 23 U/L 15-37 calcium, serum 9.4 mg/dL 8.5-10.1 bilirubin, serum, total 0.50 mg/dL 0.00-1.00 Lab Report: HGBA1C, Lipid Panel - Chemistry hemoglobin A1C, blood, as % of total hemoglobin 6.2 % 4.3-6.0 cholesterol, serum 302 mg/dL 661-846 3040/05/04 triglyceride, serum, fasting 145 mg/dL 30-200 HDL cholesterol, serum 61 mg/dL 32-60 LDL cholesterol, serum 212 mg/dL 0-130 Lab Report: Lipid Panel, HGBA1C, MICROALB/CREAT W/RATIO, Comp. Metabolic ... - Chemistry cholesterol, serum 240 mg/dL 671-504 8538/12/18 triglyceride, serum, fasting 119 mg/dL 30-200 HDL cholesterol, serum 51 mg/dL 32-60 LDL cholesterol, serum 165 mg/dL 0-130 hemoglobin A1C, blood, as % of total hemoglobin 6.3 % 4.3-6.0 sodium, serum 139 mmol/L 597-086 7290/12/18 carbon dioxide, venous blood 25.9 mmol/L 21.0-32.0 potassium, serum 3.9 mmol/L 3.5-5.2 chloride, serum 100 mmol/L 98-107 blood glucose 117 mg/dL 65-95 urea nitrogen, blood 23 mg/dL 7-18 creatinine, serum 1.01 mg/dL 0.60-1.30 Estimated Glomerular Filtration Rate (calc) 58 (?) mL/min/1.73m2 =OR > 60 mL/min alanine aminotransferase (SGPT), serum 36 U/L 12-78 aspartate aminotransferase (SGOT), serum 21 U/L 15-37 calcium, serum 9.5 mg/dL 8.5-10.1 bilirubin, serum, total 0.40 mg/dL 0.00-1.00 Lab Report: Lipid Panel, HGBA1C, MICROALB/CREAT W/RATIO, Comp. Metabolic ... - Lab Alkaline phosphatase 109 50-136 microalbumin, urine 30 mg/L 0-19 Lab Report: Lipid Panel, HGBA1C, MICROALB/CREAT W/RATIO, Comp. Metabolic ... - Urinalysis microalbumin/total urine volume <30 mg/g Normal mg/g mg/L 0-29 Encounters Code Encounter Date Provider Facility CPT-01070 Level 3 Est. Patient 14:11:29 FIELD SALES CONSULTANT Andre Barreto MD [facility] CPT-31072 Level 4 Est. Patient 10:54:33 FIELD SALES CONSULTANT Andre Barreto MD [facility] CPT-63386 Level 4 Est. Patient 09:44:36 CDT Andre Barreto MD [facility] CPT-13689 Level 4 Est. Patient 10:07:14 CDT Andre Barreto MD [facility] CPT-77037 Level 3 Est. Patient 14:29:01 CDT Esa Jackson MD [facility] CPT-17200 Level 3 Est. Patient 14:06:16 CDT Andre Barreto MD [facility] CPT-87039 Level 3 Est. Patient 09:16:36 CDT David King [facility] CPT-70411 Level 3 Est. Patient 09:24:01 FIELD SALES CONSULTANT David King [facility] CPT-75468 Level 3 Est. Patient 13:01:07 FIELD SALES CONSULTANT Solitario Howe MD [facility] CPT-14104 Level 4 Est. Patient 10:26:48 FIELD SALES CONSULTANT Andre Barreto MD [facility] CPT-40078 Level 4 Est. Patient 09:45:06 CDT Andre Barreto MD [facility] CPT-72925 Level 4 Est. Patient 11:53:39 FIELD SALES CONSULTANT Andre Barreto MD [facility] CPT-94157 Level 4 Est. Patient 14:21:31 CDT Andre Barreto MD [facility] CPT-95927 Level 4 Est. Patient 15:24:17 CDT Andre Barreto MD [facility] CPT-80324 Level 3 Est. Patient 10:36:40 CDT Andre Barreto MD [facility] CPT-51002 Level 4 Est. Patient 11:27:43 CDT Andre Barreto MD [facility] CPT-11952 Level 3 Est. Patient 10:57:31 FIELD SALES CONSULTANT Andre Barreto MD [facility] CPT-31729 Level 3 Est. Patient 13:53:13 FIELD SALES CONSULTANT Andre Barreto MD [facility] CPT-69621 Level 3 Est. Patient 09:16:12 CDT Andre Barreto MD [facility] CPT-78901 Level 3 Est. Patient 14:50:35 CDT Andre Barreto MD [facility] Procedures Code Procedure Name Date Entry Date Standard Description CPT-000 Give Immunizations Due 11:57:53 CDT CPT-000 Give Appropriate Flu Vaccine 10:54:34 FIELD SALES CONSULTANT CPT-G0439 Subsequent Annual Wellness Exam 10:54:34 FIELD SALES CONSULTANT CPT-82689 Bone Density - XRAY USE ONLY 11:55:39 CDT CPT-63038 Postop F/U Visit 14:31:27 CDT CPT-75335 Postop F/U Visit 14:30:20 CDT CPT-06984 Sono pelvis coley bladder only - XRAY USE ONLY 15:07:39 CDT CPT-58293 First Vx - Ix admin for Medicare patients 13:56:44 FIELD SALES CONSULTANT CPT-56959 Zostavax Subcutaneous Solution Reconstituted 10473 UNT/0.65ML 12/22 13:56:44 FIELD SALES CONSULTANT CPT-G0009 Administration of Pneumococcal Vaccine 10:12:50 CDT CPT-89334 Pneumovax 23 Injection Injectable 25 MCG/0.5ML 10:12:50 CDT CPT-G0439 Subsequent Annual Wellness Exam 09:49:25 CDT CPT-44334 First Vx - Ix admin for Medicare patients 17:55:11 FIELD SALES CONSULTANT CPT-74136 Fluzone High-Dose Intramuscular Suspension 17:55:11 FIELD SALES CONSULTANT CPT-04077 Venipuncture Draw Fee 14:11:36 CDT CPT-23778 Lipid - LAB USE ONLY 14:11:36 CDT CPT-63465 CMP - LAB USE ONLY 14:11:36 CDT CPT-G0438 Initial Annual Wellness Exam 13:29:06 CDT CPT-G0009 Administration of Pneumococcal Vaccine 13:26:57 CDT CPT-67111 Prevnar 13 Intramuscular Suspension 13:26:56 CDT 08/19 CPT-53170 Bone Density - XRAY USE ONLY 09:30:16 CDT CPT-Cryo Cryotherapy 08:59:26 FIELD SALES CONSULTANT CPT-Cryo Cryotherapy 08:46:02 CDT CPT-84043 Chest 2V Frontal and Lat 14:02:13 FIELD SALES CONSULTANT
--- OUTSIDE RECORDS SUMMARY | 2018-03-16 19:08 | XMS REPORT | Clinical Summary ---
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 SULFA Critical No Longer Active Marcelle Yesi [...] Coronary atherosclerosis of unspecified type of vessel, [place] or graft Obstructive sleep apnea 327.23 Active [...] Elevated blood sugar 790.29 Inactive Marcelle Key A Other abnormal glucose Glucose intolerance 271.3 Active [...] 0.5 po qd x 4 days PREDNISONE 66673453769 Active Andre Barreto MD Active DOXYCYCLINE MONOHYDRATE 100 MG ORAL CAPSULE 1 po BID x 10 days DOXYCYCLINE MONOHYDRATE 58968784755 Active Andre Barreto MD Active TUSSIONEX PENNKINETIC ER 10-8 MG/5ML ORAL SUSPENSION EXTENDED RELEASE 5ml po q12hr PRN Cough HYDROCOD POLST-CHLORPHEN POLST 23325425422 Active Andre Barreto MD Active ADVAIR DISKUS 250-50 MCG/DOSE INHALATION AEROSOL POWDER BREATH ACTIVATED 1 INH BID FLUTICASONE-SALMETEROL 16547554551 Active Andre Barreto MD Active MYRBETRIQ 25 MG ORAL TABLET EXTENDED RELEASE 24 HOUR 1 po qd MIRABEGRON 78456711960 Active Andre Barreto MD Active TRAMADOL HCL 50 MG ORAL TABLET 2 po q 6 hrs prn TRAMADOL HCL 25182935160 No Longer Active Andre Barreto MD Active MECLIZINE HCL 25 MG ORAL TABLET 1 po q8hr PRN Dizziness MECLIZINE HCL 10218819831 No Longer Active Andre Barreto MD Active MELOXICAM 15 MG ORAL TABLET 1 po qd PRN Pain MELOXICAM 14867186635 Active Andre Barreto MD Active ATORVASTATIN CALCIUM 40 MG ORAL TABLET 1 po qHS ATORVASTATIN CALCIUM 57638430358 No Longer Active Andre Barreto MD Active ATORVASTATIN CALCIUM 20 MG ORAL TABLET 1 po MWF ATORVASTATIN CALCIUM 63338078636 Active Andre Barreto MD Active GUAIFENESIN DM 400-20 MG ORAL TABLET 1 pill by mouth twice daily, if needed for cough DEXTROMETHORPHAN-GUAIFENESIN 62471378109 No Longer Active Andre Barreto MD Active BACTROBAN 2 % EXTERNAL OINTMENT Apply to affected area BID 05/18 MUPIROCIN 53264111885 No Longer Active Moira Price MA Active CLINDAMYCIN HCL 300 MG ORAL CAPSULE 1 po QID x 7 days CLINDAMYCIN HCL 02053862023 No Longer Active David King APRN Active BACTRIM DS 800-160 MG ORAL TABLET 1 tab by mouth twice daily 2017 TRIMETHOPRIM-SULFAMETHOXAZOLE 21014255478 No Longer Active Javanllkinza King APRN Active CEFDINIR 300 MG ORAL CAPSULE by mouth twice a day CEFDINIR 06255840141 No Longer Active David Montsemaury REYNA Active BENZONATATE 200 MG ORAL CAPSULE 1 three times a day as needed for cough 03/27 BENZONATATE 67625880979 No Longer Active Luna Prabhakar Active ZITHROMAX Z-NEVAEH 250 MG ORAL TABLET 2 today and then 1 daily for 4 days 03/27 AZITHROMYCIN 18476954862 No Longer Active Luna Prabhakar Active PREDNISONE 20 MG ORAL TABLET 2 daily for 3 days then 1 daily for 3 days 03/27 PREDNISONE 00208395234 No Longer Active Luna Prabhakar Active CLOPIDOGREL BISULFATE 75 MG ORAL TABLET 1 po qd CLOPIDOGREL BISULFATE 40660753527 Active Andre Barreto MD Active FUROSEMIDE 20 MG ORAL TABLET 1 po qd PRN Edema FUROSEMIDE 23113156273 Active Andre Barreto MD Active PROAIR HFA 108 (90 Base) MCG/ACT INHALATION AEROSOL SOLUTION 2 puffs q4hr PRN Shortness of air/Wheezing ALBUTEROL SULFATE 13954085578 Active Andre Barreto MD Active ATORVASTATIN CALCIUM 80 MG ORAL TABLET 1 po qHS ATORVASTATIN CALCIUM 83629055784 No Longer Active Andre Barreto MD Active AMBIEN 5 MG ORAL TABLET 1 po qHS PRN Insomnia ZOLPIDEM TARTRATE 44995374327 Active Andre Barreto MD Active DETROL 2 MG ORAL TABLET 1 po qd TOLTERODINE TARTRATE 24498158004 Active Andre Barreto MD Active NITROGLYCERIN 0.4 MG SUBLINGUAL TABLET SUBLINGUAL 1 SL q5min PRN Chest pain up to 3 doses NITROGLYCERIN 53677083817 Active Andre Barreto MD Active TOPROL XL 50 MG ORAL TABLET EXTENDED RELEASE 24 HOUR 1 po qd METOPROLOL SUCCINATE 70012404404 Active Andre Barreto MD Active FLUOXETINE HCL 40 MG ORAL CAPSULE 1 po qd FLUOXETINE HCL 09671055854 Active Andre Barreto MD Active BENICAR HCT 40-25 MG ORAL TABLET Take one by mouth daily OLMESARTAN MEDOXOMIL-HCTZ 96448657841 No Longer Active Andre Barreto MD Active LOSARTAN POTASSIUM-HCTZ 100-25 MG ORAL TABLET 1 po qd [place] POTASSIUM-HCTZ 65838651100 Active Andre Barreto MD Active BETAMETHASONE DIPROPIONATE 0.05 % EXTERNAL OINTMENT Apply to affected areas BID for up to 2 weeks BETAMETHASONE DIPROPIONATE 44838133837 No Longer Active Andre Barreto MD Active ZOFRAN 4 MG ORAL TABLET 1 po q6hr PRN Nausea ONDANSETRON HCL 93438810867 No Longer Active Andre Barreto MD Active CIPRO 500 MG ORAL TABLET 1 tablet by mouth twice daily CIPROFLOXACIN HCL 51851380120 No Longer Active Andre Barreto MD Active SYMBICORT 160-4.5 MCG/ACT INHALATION AEROSOL 2 puffs inhaled bid BUDESONIDE-FORMOTEROL FUMARATE 55194683119 No Longer Active Andre Barreto MD Active DICLOFENAC SODIUM 75 MG ORAL TABLET DELAYED RELEASE 1 tablet by mouth twice daily DICLOFENAC SODIUM 38736492268 No Longer Active Andre Barreto MD Active PROZAC 40 MG ORAL CAPSULE 1 cap by mouth at bedtime FLUOXETINE HCL 58439224737 No Longer Active Andre Barreto MD Active HYDROCODONE-ACETAMINOPHEN 5-325 MG ORAL TABLET 1 po q 6hr PRN Pain HYDROCODONE-ACETAMINOPHEN 28463162954 No Longer Active Andre Barreto MD Active HYDROCODONE-ACETAMINOPHEN 5-325 MG ORAL TABLET 1 po q 6hr PRN Pain HYDROCODONE-ACETAMINOPHEN 5-325 MG ORAL TABLET 342779 HYDROCODONE- ACETAMINOPHEN Inactive PROZAC 40 MG ORAL CAPSULE 1 cap by mouth at bedtime PROZAC 40 MG ORAL CAPSULE 042031 FLUOXETINE HCL Inactive DICLOFENAC SODIUM 75 MG ORAL TABLET DELAYED RELEASE 1 tablet by mouth twice daily DICLOFENAC SODIUM 75 MG ORAL TABLET DELAYED RELEASE 559540 DICLOFENAC SODIUM Inactive SYMBICORT 160-4.5 MCG/ACT INHALATION AEROSOL 2 puffs inhaled bid SYMBICORT 160-4.5 MCG/ACT INHALATION AEROSOL BUDESONIDE-FORMOTEROL FUMARATE Inactive ZOFRAN 4 MG ORAL TABLET 1 po q6hr PRN Nausea ZOFRAN 4 MG ORAL TABLET 226868 ONDANSETRON HCL Inactive BETAMETHASONE DIPROPIONATE 0.05 % EXTERNAL OINTMENT Apply to affected areas BID for up to 2 weeks BETAMETHASONE DIPROPIONATE 0.05 % EXTERNAL OINTMENT 306884 BETAMETHASONE DIPROPIONATE Inactive BENICAR HCT 40-25 MG ORAL TABLET Take one by mouth daily BENICAR HCT 40-25 MG ORAL TABLET 769020 OLMESARTAN MEDOXOMIL-HCTZ Inactive ATORVASTATIN CALCIUM 80 MG ORAL TABLET 1 po qHS ATORVASTATIN CALCIUM 80 MG ORAL TABLET 694066 ATORVASTATIN CALCIUM Inactive PREDNISONE 20 MG ORAL TABLET 2 daily for 3 days then 1 daily for 3 days 03/27 PREDNISONE 20 MG ORAL TABLET 014318 PREDNISONE Inactive ZITHROMAX Z-NEVAEH 250 MG ORAL TABLET 2 today and then 1 daily for 4 days 03/27 ZITHROMAX Z-NEVAEH 250 MG ORAL TABLET 378016 AZITHROMYCIN Inactive BENZONATATE 200 MG ORAL CAPSULE 1 three times a day as needed for cough 03/27 BENZONATATE 200 MG ORAL CAPSULE 565195 BENZONATATE Inactive BACTRIM DS 800-160 MG ORAL TABLET 1 tab by mouth twice daily 2017 BACTRIM DS 800-160 MG ORAL TABLET 664476 TRIMETHOPRIM- SULFAMETHOXAZOLE Inactive BACTROBAN 2 % EXTERNAL OINTMENT Apply to affected area BID 05/18 BACTROBAN 2 % EXTERNAL OINTMENT MUPIROCIN Inactive GUAIFENESIN DM 400-20 MG ORAL TABLET 1 pill by mouth twice daily, if needed for cough GUAIFENESIN DM 400-20 MG ORAL TABLET 3031240 DEXTROMETHORPHAN-GUAIFENESIN Inactive ATORVASTATIN CALCIUM 40 MG ORAL TABLET 1 po qHS ATORVASTATIN CALCIUM 40 MG ORAL TABLET 878687 ATORVASTATIN CALCIUM Inactive MECLIZINE HCL 25 MG ORAL TABLET 1 po q8hr PRN Dizziness MECLIZINE HCL 25 MG ORAL TABLET 567584 MECLIZINE HCL Inactive TRAMADOL HCL 50 MG ORAL TABLET 2 po q 6 hrs prn TRAMADOL HCL 50 MG ORAL TABLET 279709 TRAMADOL HCL Inactive CIPRO 500 MG ORAL TABLET 1 tablet by mouth twice daily CIPRO 500 MG ORAL TABLET 861672 CIPROFLOXACIN HCL Inactive CEFDINIR 300 MG ORAL CAPSULE by mouth twice a day CEFDINIR 300 MG ORAL CAPSULE 386889 CEFDINIR Inactive CLINDAMYCIN HCL 300 MG ORAL CAPSULE 1 po QID x 7 days CLINDAMYCIN HCL 300 MG ORAL CAPSULE 793345 CLINDAMYCIN HCL Inactive Advance Directives Directive Description Start Date [...] Panel - Chemistry sodium, serum 139 mmol/L 401-311 0106/05/04 carbon dioxide, venous blood 28.7 mmol/L 21.0-32.0 [...] 6.2 % 4.3-6.0 cholesterol, serum 302 mg/dL 193-994 3259/05/04 triglyceride, serum, fasting 145 mg/dL 30-200 HDL cholesterol, serum 61 mg/dL 32-60 LDL cholesterol, serum 212 mg/dL 0-130 Lab Report: Lipid Panel, HGBA1C, MICROALB/CREAT W/RATIO, Comp. Metabolic ... - Chemistry cholesterol, serum 240 mg/dL 060-839 8058/12/18 triglyceride, serum, fasting 119 mg/dL 30-200 HDL cholesterol, serum 51 mg/dL 32-60 LDL cholesterol, serum 165 mg/dL 0-130 hemoglobin A1C, blood, as % of total hemoglobin 6.3 % 4.3-6.0 sodium, serum 139 mmol/L 990-399 5795/12/18 carbon dioxide, venous blood 25.9 mmol/L 21.0-32.0 [...] 0-29 Encounters Code Encounter Date Provider Facility CPT-90771 Level 3 Est. Patient 14:11:29 [employer] Andre Barreto MD [facility] CPT-65715 Level 4 Est. Patient 10:54:33 [employer] Andre Barreto MD [facility] CPT-26037 Level 4 Est. Patient 09:44:36 CDT Andre Barreto MD [facility] CPT-31270 Level 4 Est. Patient 10:07:14 CDT Andre Barreto MD [facility] CPT-91904 Level 3 Est. Patient 14:29:01 CDT Esa Jackson MD [facility] CPT-55473 Level 3 Est. Patient 14:06:16 CDT Andre Barreto MD [facility] CPT-32520 Level 3 Est. Patient 09:16:36 CDT David King [facility] CPT-00009 Level 3 Est. Patient 09:24:01 [employer] David King [facility] CPT-48796 Level 3 Est. Patient 13:01:07 [employer] Solitario Howe MD [facility] CPT-76865 Level 4 Est. Patient 10:26:48 [employer] Andre Barreto MD [facility] CPT-78551 Level 4 Est. Patient 09:45:06 CDT Andre Barreto MD [facility] CPT-91778 Level 4 Est. Patient 11:53:39 [employer] Andre Barreto MD [facility] CPT-02996 Level 4 Est. Patient 14:21:31 CDT Andre Barreto MD [facility] CPT-81462 Level 4 Est. Patient 15:24:17 CDT Andre Barreto MD [facility] CPT-50728 Level 3 Est. Patient 10:36:40 CDT Andre Barreto MD [facility] CPT-30777 Level 4 Est. Patient 11:27:43 CDT Andre Barreto MD [facility] CPT-53674 Level 3 Est. Patient 10:57:31 [employer] Andre Barreto MD [facility] CPT-61303 Level 3 Est. Patient 13:53:13 [employer] Andre Barreto MD [facility] CPT-31888 Level 3 Est. Patient 09:16:12 CDT Andre Barreto MD [facility] CPT-73799 Level 3 Est. Patient 14:50:35 CDT Andre Barreto MD [facility] Procedures Code Procedure Name Date Entry Date Standard Description CPT-000 Give Immunizations Due 11:57:53 CDT CPT-000 Give Appropriate Flu Vaccine 10:54:34 [employer] CPT-G0439 Subsequent Annual Wellness Exam 10:54:34 [employer] CPT-46524 Bone Density - XRAY USE ONLY 11:55:39 CDT CPT-89901 Postop F/U Visit 14:31:27 CDT CPT-46791 Postop F/U Visit 14:30:20 CDT CPT-23707 Sono pelvis coley bladder only - XRAY USE ONLY 15:07:39 CDT CPT-73272 First Vx - Ix admin for Medicare patients 13:56:44 [employer] CPT-01361 Zostavax Subcutaneous Solution Reconstituted 97353 UNT/0.65ML 12/22 13:56:44 [employer] CPT-G0009 Administration of Pneumococcal Vaccine 10:12:50 CDT CPT-78533 Pneumovax 23 Injection Injectable 25 MCG/0.5ML 10:12:50 CDT CPT-G0439 Subsequent Annual Wellness Exam 09:49:25 CDT CPT-68760 First Vx - Ix admin for Medicare patients 17:55:11 [facility] CPT-41585 Fluzone High-Dose Intramuscular Suspension 17:55:11 [facility] CPT-54452 Venipuncture Draw Fee 14:11:36 CDT CPT-89482 Lipid - LAB USE ONLY 14:11:36 CDT CPT-05158 CMP - LAB USE ONLY 14:11:36 CDT CPT-G0438 Initial Annual Wellness Exam 13:29:06 CDT CPT-G0009 Administration of Pneumococcal Vaccine 13:26:57 CDT CPT-74580 Prevnar 13 Intramuscular Suspension 13:26:56 CDT 08/19 CPT-75670 Bone Density - XRAY USE ONLY 09:30:16 CDT CPT-Cryo Cryotherapy 08:59:26 [employer] CPT-Cryo Cryotherapy 08:46:02 CDT CPT-43407 Chest 2V Frontal and Lat 14:02:13 [employer]
--- OUTSIDE RECORDS SUMMARY | 2018-03-16 19:09 | XMS REPORT | Clinical Summary ---
Author Author Admin, EDUARDO Organization [employer] Address Unknown Phone Unavailable Allergies, Adverse Reactions, Alerts Allergy Name Reaction Description Start Date Severity Status Provider SULFA Mild No Longer Active Jillina Frazell GUIDE CRUISE PENICILLIN Mild No Longer Active Jillina Frazell GUIDE CRUISE ZINC Mild No Longer Active Jillina Frazell GUIDE CRUISE SULFA Critical No Longer Active Marcelle Yesi [...] Coronary atherosclerosis of unspecified type of vessel, [place] or graft Obstructive sleep apnea 327.23 Active [...] DYSPNEA ICD-786.05 Inactive Andre Barreto MD 2012 Actinic keratosis ICD-702.0 Inactive Andre Barreto MD Seborrheic keratosis ICD-702.19 Inactive Andre Barreto MD Skin tag ICD-701.9 Inactive Andre Barreto MD 2014 Fever ICD-780.60 Inactive Andre Barreto MD 05/23 Dyshidrotic eczema, hands ICD-705.81 Inactive Andre Barreto MD Postmenopausal status ICD-V49.81 Inactive Andre Barreto MD Family history of osteoporosis ICD-V17.81 Inactive Andre Barreto MD Unsteady gait ICD-781.2 Inactive Andre Barreto MD Continuous positive airway pressure rx ICD-V46.2 Inactive Andre Barreto MD Acute exacerbation of chronic bronchitis ICD-491.22 Inactive Solitario Howe MD Sinusitis ICD-473.9 Inactive Andre Barreto MD Abscess, skin ICD-682.9 Inactive Andre Brareto MD Benign paroxysmal positional vertigo ICD-386.11 Inactive Andre Barreto MD Weakness, muscle ICD-728.87 Inactive Andre Barreto MD Medication List Medication Instructions Start Date Stop Date Generic Name NDC Status Provider Patient Instruction PREDNISONE 20 MG ORAL TABLET 2 po qd x 4 days, then 1 po qd x 4 days, then 0.5 po qd x 4 days PREDNISONE 32593453179 Active Andre Barreto MD Active DOXYCYCLINE MONOHYDRATE 100 MG ORAL CAPSULE 1 po BID x 10 days DOXYCYCLINE MONOHYDRATE 83746241053 Active Andre Barreto MD Active TUSSIONEX PENNKINETIC ER 10-8 MG/5ML ORAL SUSPENSION EXTENDED RELEASE 5ml po q12hr PRN Cough HYDROCOD POLST-CHLORPHEN POLST 90306533712 Active Andre Barreto MD Active ADVAIR DISKUS 250-50 MCG/DOSE INHALATION AEROSOL POWDER BREATH ACTIVATED 1 INH BID FLUTICASONE-SALMETEROL 26152309874 Active Andre Barreto MD Active MYRBETRIQ 25 MG ORAL TABLET EXTENDED RELEASE 24 HOUR 1 po qd MIRABEGRON 14633512870 Active Andre Barreto MD Active TRAMADOL HCL 50 MG ORAL TABLET 2 po q 6 hrs prn TRAMADOL HCL 26678053145 No Longer Active Andre Barreto MD Active MECLIZINE HCL 25 MG ORAL TABLET 1 po q8hr PRN Dizziness MECLIZINE HCL 64010036463 No Longer Active Andre Barreto MD Active MELOXICAM 15 MG ORAL TABLET 1 po qd PRN Pain MELOXICAM 13742570544 Active Andre Barreto MD Active ATORVASTATIN CALCIUM 40 MG ORAL TABLET 1 po qHS ATORVASTATIN CALCIUM 93729856320 No Longer Active Andre Barreto MD Active ATORVASTATIN CALCIUM 20 MG ORAL TABLET 1 po MWF ATORVASTATIN CALCIUM 98463650615 Active Andre Barreto MD Active GUAIFENESIN DM 400-20 MG ORAL TABLET 1 pill by mouth twice daily, if needed for cough DEXTROMETHORPHAN-GUAIFENESIN 50851092935 No Longer Active Andre Barreto MD Active BACTROBAN 2 % EXTERNAL OINTMENT Apply to affected area BID 05/18 MUPIROCIN 25766100383 No Longer Active Moira Price MA Active CLINDAMYCIN HCL 300 MG ORAL CAPSULE 1 po QID x 7 days CLINDAMYCIN HCL 33716497673 No Longer Active David King APRN Active BACTRIM DS 800-160 MG ORAL TABLET 1 tab by mouth twice daily 2017 TRIMETHOPRIM-SULFAMETHOXAZOLE 41361138037 No Longer Active Javanllkinza King APRN Active CEFDINIR 300 MG ORAL CAPSULE by mouth twice a day CEFDINIR 50438182594 No Longer Active David Montsemaury REYNA Active BENZONATATE 200 MG ORAL CAPSULE 1 three times a day as needed for cough 03/27 BENZONATATE 70950625684 No Longer Active Luna Prabhakar Active ZITHROMAX Z-NEVAEH 250 MG ORAL TABLET 2 today and then 1 daily for 4 days 03/27 AZITHROMYCIN 12261225316 No Longer Active Luna Prabhakar Active PREDNISONE 20 MG ORAL TABLET 2 daily for 3 days then 1 daily for 3 days 03/27 PREDNISONE 47737006149 No Longer Active Luna Prabhakar Active CLOPIDOGREL BISULFATE 75 MG ORAL TABLET 1 po qd CLOPIDOGREL BISULFATE 71614489897 Active Andre Barreto MD Active FUROSEMIDE 20 MG ORAL TABLET 1 po qd PRN Edema FUROSEMIDE 09165323536 Active Andre Barreto MD Active PROAIR HFA 108 (90 Base) MCG/ACT INHALATION AEROSOL SOLUTION 2 puffs q4hr PRN Shortness of air/Wheezing ALBUTEROL SULFATE 77051129562 Active Andre Barreto MD Active ATORVASTATIN CALCIUM 80 MG ORAL TABLET 1 po qHS ATORVASTATIN CALCIUM 75375638999 No Longer Active Andre Barreto MD Active AMBIEN 5 MG ORAL TABLET 1 po qHS PRN Insomnia ZOLPIDEM TARTRATE 79275179887 Active Andre Barreto MD Active DETROL 2 MG ORAL TABLET 1 po qd TOLTERODINE TARTRATE 91545224292 Active Andre Barreto MD Active NITROGLYCERIN 0.4 MG SUBLINGUAL TABLET SUBLINGUAL 1 SL q5min PRN Chest pain up to 3 doses NITROGLYCERIN 14534798622 Active Andre Barreto MD Active TOPROL XL 50 MG ORAL TABLET EXTENDED RELEASE 24 HOUR 1 po qd METOPROLOL SUCCINATE 91307524889 Active Andre Barreto MD Active FLUOXETINE HCL 40 MG ORAL CAPSULE 1 po qd FLUOXETINE HCL 42500771239 Active Andre Barreto MD Active BENICAR HCT 40-25 MG ORAL TABLET Take one by mouth daily OLMESARTAN MEDOXOMIL-HCTZ 70173674540 No Longer Active Andre Barreto MD Active [place]ARTAN POTASSIUM-HCTZ 100-25 MG ORAL TABLET 1 po qd [place] POTASSIUM-HCTZ 27848247699 Active Andre Barreto MD Active BETAMETHASONE DIPROPIONATE 0.05 % EXTERNAL OINTMENT Apply to affected areas BID for up to 2 weeks BETAMETHASONE DIPROPIONATE 39743633768 No Longer Active Andre Barreto MD Active ZOFRAN 4 MG ORAL TABLET 1 po q6hr PRN Nausea ONDANSETRON HCL 24566185647 No Longer Active Andre Barreto MD Active CIPRO 500 MG ORAL TABLET 1 tablet by mouth twice daily CIPROFLOXACIN HCL 05752339168 No Longer Active Andre Barreto MD Active SYMBICORT 160-4.5 MCG/ACT INHALATION AEROSOL 2 puffs inhaled bid BUDESONIDE-FORMOTEROL FUMARATE 53150101037 No Longer Active Andre Barreto MD Active DICLOFENAC SODIUM 75 MG ORAL TABLET DELAYED RELEASE 1 tablet by mouth twice daily DICLOFENAC SODIUM 38535975280 No Longer Active Andre Barreto MD Active PROZAC 40 MG ORAL CAPSULE 1 cap by mouth at bedtime FLUOXETINE HCL 73814259984 No Longer Active Andre Barreto MD Active HYDROCODONE-ACETAMINOPHEN 5-325 MG ORAL TABLET 1 po q 6hr PRN Pain HYDROCODONE-ACETAMINOPHEN 92944023561 No Longer Active Andre Barreto MD Active HYDROCODONE-ACETAMINOPHEN 5-325 MG ORAL TABLET 1 po q 6hr PRN Pain HYDROCODONE-ACETAMINOPHEN 5-325 MG ORAL TABLET 721476 HYDROCODONE- ACETAMINOPHEN Inactive PROZAC 40 MG ORAL CAPSULE 1 cap by mouth at bedtime PROZAC 40 MG ORAL CAPSULE 965170 FLUOXETINE HCL Inactive DICLOFENAC SODIUM 75 MG ORAL TABLET DELAYED RELEASE 1 tablet by mouth twice daily DICLOFENAC SODIUM 75 MG ORAL TABLET DELAYED RELEASE 184413 DICLOFENAC SODIUM Inactive SYMBICORT 160-4.5 MCG/ACT INHALATION AEROSOL 2 puffs inhaled bid SYMBICORT 160-4.5 MCG/ACT INHALATION AEROSOL BUDESONIDE-FORMOTEROL FUMARATE Inactive ZOFRAN 4 MG ORAL TABLET 1 po q6hr PRN Nausea ZOFRAN 4 MG ORAL TABLET 914102 ONDANSETRON HCL Inactive BETAMETHASONE DIPROPIONATE 0.05 % EXTERNAL OINTMENT Apply to affected areas BID for up to 2 weeks BETAMETHASONE DIPROPIONATE 0.05 % EXTERNAL OINTMENT 751506 BETAMETHASONE DIPROPIONATE Inactive BENICAR HCT 40-25 MG ORAL TABLET Take one by mouth daily BENICAR HCT 40-25 MG ORAL TABLET 279204 OLMESARTAN MEDOXOMIL-HCTZ Inactive ATORVASTATIN CALCIUM 80 MG ORAL TABLET 1 po qHS ATORVASTATIN CALCIUM 80 MG ORAL TABLET 549321 ATORVASTATIN CALCIUM Inactive PREDNISONE 20 MG ORAL TABLET 2 daily for 3 days then 1 daily for 3 days 03/27 PREDNISONE 20 MG ORAL TABLET 499369 PREDNISONE Inactive ZITHROMAX Z-NEVAEH 250 MG ORAL TABLET 2 today and then 1 daily for 4 days 03/27 ZITHROMAX Z-NEVAEH 250 MG ORAL TABLET 945483 AZITHROMYCIN Inactive BENZONATATE 200 MG ORAL CAPSULE 1 three times a day as needed for cough 03/27 BENZONATATE 200 MG ORAL CAPSULE 260842 BENZONATATE Inactive BACTRIM DS 800-160 MG ORAL TABLET 1 tab by mouth twice daily 2017 BACTRIM DS 800-160 MG ORAL TABLET 233757 TRIMETHOPRIM- SULFAMETHOXAZOLE Inactive BACTROBAN 2 % EXTERNAL OINTMENT Apply to affected area BID 05/18 BACTROBAN 2 % EXTERNAL OINTMENT MUPIROCIN Inactive GUAIFENESIN DM 400-20 MG ORAL TABLET 1 pill by mouth twice daily, if needed for cough GUAIFENESIN DM 400-20 MG ORAL TABLET 7549367 DEXTROMETHORPHAN-GUAIFENESIN Inactive ATORVASTATIN CALCIUM 40 MG ORAL TABLET 1 po qHS ATORVASTATIN CALCIUM 40 MG ORAL TABLET 433877 ATORVASTATIN CALCIUM Inactive MECLIZINE HCL 25 MG ORAL TABLET 1 po q8hr PRN Dizziness MECLIZINE HCL 25 MG ORAL TABLET 155656 MECLIZINE HCL Inactive TRAMADOL HCL 50 MG ORAL TABLET 2 po q 6 hrs prn TRAMADOL HCL 50 MG ORAL TABLET 502668 TRAMADOL HCL Inactive CIPRO 500 MG ORAL TABLET 1 tablet by mouth twice daily CIPRO 500 MG ORAL TABLET 307414 CIPROFLOXACIN HCL Inactive CEFDINIR 300 MG ORAL CAPSULE by mouth twice a day CEFDINIR 300 MG ORAL CAPSULE 107596 CEFDINIR Inactive CLINDAMYCIN HCL 300 MG ORAL CAPSULE 1 po QID x 7 days CLINDAMYCIN HCL 300 MG ORAL CAPSULE 125086 CLINDAMYCIN HCL Inactive Advance Directives Directive Description [...] Panel - Chemistry sodium, serum 139 mmol/L 894-118 2038/05/04 carbon dioxide, venous blood 28.7 mmol/L 21.0-32.0 [...] 6.2 % 4.3-6.0 cholesterol, serum 302 mg/dL 569-726 4177/05/04 triglyceride, serum, fasting 145 mg/dL 30-200 HDL cholesterol, serum 61 mg/dL 32-60 LDL cholesterol, serum 212 mg/dL 0-130 Lab Report: Lipid Panel, HGBA1C, MICROALB/CREAT W/RATIO, Comp. Metabolic ... - Chemistry cholesterol, serum 240 mg/dL 157-076 6229/12/18 triglyceride, serum, fasting 119 mg/dL 30-200 HDL cholesterol, serum 51 mg/dL 32-60 LDL cholesterol, serum 165 mg/dL 0-130 hemoglobin A1C, blood, as % of total hemoglobin 6.3 % 4.3-6.0 sodium, serum 139 mmol/L 504-561 9940/12/18 carbon dioxide, venous blood 25.9 mmol/L 21.0-32.0 [...] 0-29 Encounters Code Encounter Date Provider Facility CPT-54832 Level 3 Est. Patient 14:11:29 [facility] Andre Barreto MD [facility] CPT-28686 Level 4 Est. Patient 10:54:33 [facility] Andre Barreto MD [facility] CPT-88086 Level 4 Est. Patient 09:44:36 CDT Andre Barreto MD [facility] CPT-46820 Level 4 Est. Patient 10:07:14 CDT Andre Barreto MD [facility] CPT-65727 Level 3 Est. Patient 14:29:01 CDT Esa Jackson MD [facility] CPT-04132 Level 3 Est. Patient 14:06:16 CDT Andre Barreto MD [facility] CPT-37059 Level 3 Est. Patient 09:16:36 CDT David King [facility] CPT-73312 Level 3 Est. Patient 09:24:01 [facility] David King [facility] CPT-01351 Level 3 Est. Patient 13:01:07 [facility] Solitario Howe MD [facility] CPT-71727 Level 4 Est. Patient 10:26:48 [facility] Andre Barreto MD [facility] CPT-15982 Level 4 Est. Patient 09:45:06 CDT Andre Barreto MD [facility] CPT-38940 Level 4 Est. Patient 11:53:39 [facility] Andre Barreto MD [facility] CPT-04096 Level 4 Est. Patient 14:21:31 CDT Andre Barreto MD [facility] CPT-49257 Level 4 Est. Patient 15:24:17 CDT Andre Barreto MD [facility] CPT-87677 Level 3 Est. Patient 10:36:40 CDT Andre Barreto MD [facility] CPT-80153 Level 4 Est. Patient 11:27:43 CDT Andre Barreto MD [facility] CPT-60972 Level 3 Est. Patient 10:57:31 [facility] [employer] [facility] Andre Barreto MD [facility] CPT-78121 Level 3 Est. Patient 13:53:13 [facility] [employer] [facility] Andre Barreto MD [facility] CPT-53575 Level 3 Est. Patient 09:16:12 CDT Andre Barreto MD [facility] CPT-82763 Level 3 Est. Patient 14:50:35 CDT Andre Barreto MD [facility] Procedures Code Procedure Name Date Entry Date Standard Description CPT-000 Give Immunizations Due 11:57:53 CDT CPT-000 Give Appropriate Flu Vaccine 10:54:34 [facility] CPT-G0439 Subsequent Annual Wellness Exam 10:54:34 [facility] CPT-49186 Bone Density - XRAY USE ONLY 11:55:39 CDT CPT-26189 Postop F/U Visit 14:31:27 CDT CPT-94791 Postop F/U Visit 14:30:20 CDT CPT-16620 Sono pelvis coley bladder only - XRAY USE ONLY 15:07:39 CDT CPT-87409 First Vx - Ix admin for Medicare patients 13:56:44 [facility] CPT-30184 Zostavax Subcutaneous Solution Reconstituted 31732 UNT/0.65ML 12/22 13:56:44 [facility] CPT-G0009 Administration of Pneumococcal Vaccine 10:12:50 CDT CPT-03072 Pneumovax 23 Injection Injectable 25 MCG/0.5ML 10:12:50 CDT CPT-G0439 Subsequent Annual Wellness Exam 09:49:25 CDT CPT-78597 First Vx - Ix admin for Medicare patients 17:55:11 [facility]09992 Fluzone High-Dose Intramuscular Suspension 17:55:11 [facility] C[facility]-45834 Venipuncture Draw Fee 14:11:36 CDT CPT-49374 Lipid - LAB USE ONLY 14:11:36 CDT CPT-37916 CMP - LAB USE ONLY 14:11:36 CDT CPT-G0438 Initial Annual Wellness Exam 13:29:06 CDT CPT-G0009 Administration of Pneumococcal Vaccine 13:26:57 CDT CPT-27377 Prevnar 13 Intramuscular Suspension 13:26:56 CDT 08/19 CPT-51981 Bone Density - XRAY USE ONLY 09:30:16 CDT CPT-Cryo Cryotherapy 08:59:26 [facility] CPT-Cryo Cryotherapy 08:46:02 CDT CPT-22809 Chest 2V Frontal and Lat 14:02:13 [facility]
--- OUTSIDE RECORDS SUMMARY | 2018-03-16 19:10 | XMS REPORT | Clinical Summary ---
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 SULFA Critical No Longer Active Marcelle Yesi [...] Coronary atherosclerosis of unspecified type of vessel, big sandy or graft Obstructive sleep apnea 327.23 Active Andre Barreto MD Obstructive sleep apnea (adult) (pediatric) Health screening V70.0 Refinement Andre Barreto MD Routine general medical examination at a health care facility Well Adult Exam V70.0 Active Andre Brareto MD Routine general medical examination at a [...] Body Mass Index 50.0-59.9 Adult Active Andre Barerto MD Body Mass Index 50.0-59.9, adult Obesity Class III (BMI >=40) Active Andre Barreto MD Morbid obesity DYSPNEA ICD-786.09 Inactive Andre Barreto MD 2012 FATIGUE ICD-780.79 Inactive Andre Barrteo MD 2012 DYSPNEA ICD-786.05 Inactive Andre Barreto [...] 0.5 po qd x 4 days PREDNISONE 23074501187 Active Andre Barreto MD Active DOXYCYCLINE MONOHYDRATE 100 MG ORAL CAPSULE 1 po BID x 10 days DOXYCYCLINE MONOHYDRATE 71661929969 Active Andre Barreto MD Active TUSSIONEX PENNKINETIC ER 10-8 MG/5ML ORAL SUSPENSION EXTENDED RELEASE 5ml po q12hr PRN Cough HYDROCOD POLST-CHLORPHEN POLST 61408057748 Active Andre Barreto MD Active ADVAIR DISKUS 250-50 MCG/DOSE INHALATION AEROSOL POWDER BREATH ACTIVATED 1 INH BID FLUTICASONE-SALMETEROL 73519626852 Active Andre Barreto MD Active MYRBETRIQ 25 MG ORAL TABLET EXTENDED RELEASE 24 HOUR 1 po qd MIRABEGRON 25581158222 Active Andre Barreto MD Active TRAMADOL HCL 50 MG ORAL TABLET 2 po q 6 hrs prn TRAMADOL HCL 25680674760 No Longer Active Andre Barreto MD Active MECLIZINE HCL 25 MG ORAL TABLET 1 po q8hr PRN Dizziness MECLIZINE HCL 61467521893 No Longer Active Andre Barreto MD Active MELOXICAM 15 MG ORAL TABLET 1 po qd PRN Pain MELOXICAM 55278568734 Active Andre Barreto MD Active ATORVASTATIN CALCIUM 40 MG ORAL TABLET 1 po qHS ATORVASTATIN CALCIUM 41359397676 No Longer Active Andre Barreto MD Active ATORVASTATIN CALCIUM 20 MG ORAL TABLET 1 po MWF ATORVASTATIN CALCIUM 09862702507 Active Andre Barreto MD Active GUAIFENESIN DM 400-20 MG ORAL TABLET 1 pill by mouth twice daily, if needed for cough DEXTROMETHORPHAN-GUAIFENESIN 88088466689 No Longer Active Andre Barreto MD Active BACTROBAN 2 % EXTERNAL OINTMENT Apply to affected area BID 05/18 MUPIROCIN 41011427385 No Longer Active Moira Price MA Active CLINDAMYCIN HCL 300 MG ORAL CAPSULE 1 po QID x 7 days CLINDAMYCIN HCL 96070480165 No Longer Active David King APRN Active BACTRIM DS 800-160 MG ORAL TABLET 1 tab by mouth twice daily 2017 TRIMETHOPRIM-SULFAMETHOXAZOLE 34188067207 No Longer Active Javanllkinza King APRN Active CEFDINIR 300 MG ORAL CAPSULE by mouth twice a day CEFDINIR 07022494084 No Longer Active David Montsemaury REYNA Active BENZONATATE 200 MG ORAL CAPSULE 1 three times a day as needed for cough 03/27 BENZONATATE 60081116189 No Longer Active Luna Prabhakar Active ZITHROMAX Z-NEVAEH 250 MG ORAL TABLET 2 today and then 1 daily for 4 days 03/27 AZITHROMYCIN 40929848627 No Longer Active Luna Prabhakar Active PREDNISONE 20 MG ORAL TABLET 2 daily for 3 days then 1 daily for 3 days 03/27 PREDNISONE 02137327428 No Longer Active Luna Prabhakar Active CLOPIDOGREL BISULFATE 75 MG ORAL TABLET 1 po qd CLOPIDOGREL BISULFATE 39372922415 Active Andre Barreto MD Active FUROSEMIDE 20 MG ORAL TABLET 1 po qd PRN Edema FUROSEMIDE 78540765255 Active Andre Barreto MD Active PROAIR HFA 108 (90 Base) MCG/ACT INHALATION AEROSOL SOLUTION 2 puffs q4hr PRN Shortness of air/Wheezing ALBUTEROL SULFATE 20303479438 Active Andre Barreto MD Active ATORVASTATIN CALCIUM 80 MG ORAL TABLET 1 po qHS ATORVASTATIN CALCIUM 10805039223 No Longer Active Andre Barreto MD Active AMBIEN 5 MG ORAL TABLET 1 po qHS PRN Insomnia ZOLPIDEM TARTRATE 11159873658 Active Andre Barreto MD Active DETROL 2 MG ORAL TABLET 1 po qd TOLTERODINE TARTRATE 78374744770 Active Andre Barreto MD Active NITROGLYCERIN 0.4 MG SUBLINGUAL TABLET SUBLINGUAL 1 SL q5min PRN Chest pain up to 3 doses NITROGLYCERIN 50140138273 Active Andre Barreto MD Active TOPROL XL 50 MG ORAL TABLET EXTENDED RELEASE 24 HOUR 1 po qd METOPROLOL SUCCINATE 03160186302 Active Andre Barreto MD Active FLUOXETINE HCL 40 MG ORAL CAPSULE 1 po qd FLUOXETINE HCL 88438102789 Active Andre Barreto MD Active BENICAR HCT 40-25 MG ORAL TABLET Take one by mouth daily OLMESARTAN MEDOXOMIL-HCTZ 65183888959 No Longer Active Andre Barreto MD Active LOSARTAN POTASSIUM-HCTZ 100-25 MG ORAL TABLET 1 po qd LOSARTAN POTASSIUM-HCTZ 63178256109 Active Andre Barreto MD Active BETAMETHASONE DIPROPIONATE 0.05 % EXTERNAL OINTMENT Apply to affected areas BID for up to 2 weeks BETAMETHASONE DIPROPIONATE 08875486430 No Longer Active Andre Barreto MD Active ZOFRAN 4 MG ORAL TABLET 1 po q6hr PRN Nausea ONDANSETRON HCL 05680394299 No Longer Active Andre Barreto MD Active CIPRO 500 MG ORAL TABLET 1 tablet by mouth twice daily CIPROFLOXACIN HCL 01622966045 No Longer Active Andre Barreto MD Active SYMBICORT 160-4.5 MCG/ACT INHALATION AEROSOL 2 puffs inhaled bid BUDESONIDE-FORMOTEROL FUMARATE 56746593994 No Longer Active Andre Barreto MD Active DICLOFENAC SODIUM 75 MG ORAL TABLET DELAYED RELEASE 1 tablet by mouth twice daily DICLOFENAC SODIUM 28760525021 No Longer Active Andre Barreto MD Active PROZAC 40 MG ORAL CAPSULE 1 cap by mouth at bedtime FLUOXETINE HCL 50909309360 No Longer Active Andre Barreto MD Active HYDROCODONE-ACETAMINOPHEN 5-325 MG ORAL TABLET 1 po q 6hr PRN Pain HYDROCODONE-ACETAMINOPHEN 85387975506 No Longer Active Andre Barreto MD Active HYDROCODONE-ACETAMINOPHEN 5-325 MG ORAL TABLET 1 po q 6hr PRN Pain HYDROCODONE-ACETAMINOPHEN 5-325 MG ORAL TABLET 907564 HYDROCODONE- ACETAMINOPHEN Inactive PROZAC 40 MG ORAL CAPSULE 1 cap by mouth at bedtime PROZAC 40 MG ORAL CAPSULE 997298 FLUOXETINE HCL Inactive DICLOFENAC SODIUM 75 MG ORAL TABLET DELAYED RELEASE 1 tablet by mouth twice daily DICLOFENAC SODIUM 75 MG ORAL TABLET DELAYED RELEASE 427483 DICLOFENAC SODIUM Inactive SYMBICORT 160-4.5 MCG/ACT INHALATION AEROSOL 2 puffs inhaled bid SYMBICORT 160-4.5 MCG/ACT INHALATION AEROSOL BUDESONIDE-FORMOTEROL FUMARATE Inactive ZOFRAN 4 MG ORAL TABLET 1 po q6hr PRN Nausea ZOFRAN 4 MG ORAL TABLET 657158 ONDANSETRON HCL Inactive BETAMETHASONE DIPROPIONATE 0.05 % EXTERNAL OINTMENT Apply to affected areas BID for up to 2 weeks BETAMETHASONE DIPROPIONATE 0.05 % EXTERNAL OINTMENT 819859 BETAMETHASONE DIPROPIONATE Inactive BENICAR HCT 40-25 MG ORAL TABLET Take one by mouth daily BENICAR HCT 40-25 MG ORAL TABLET 257378 OLMESARTAN MEDOXOMIL-HCTZ Inactive ATORVASTATIN CALCIUM 80 MG ORAL TABLET 1 po qHS ATORVASTATIN CALCIUM 80 MG ORAL TABLET 325798 ATORVASTATIN CALCIUM Inactive PREDNISONE 20 MG ORAL TABLET 2 daily for 3 days then 1 daily for 3 days 03/27 PREDNISONE 20 MG ORAL TABLET 851356 PREDNISONE Inactive ZITHROMAX Z-NEVAEH 250 MG ORAL TABLET 2 today and then 1 daily for 4 days 03/27 ZITHROMAX Z-NEVAEH 250 MG ORAL TABLET 635867 AZITHROMYCIN Inactive BENZONATATE 200 MG ORAL CAPSULE 1 three times a day as needed for cough 03/27 BENZONATATE 200 MG ORAL CAPSULE 089618 BENZONATATE Inactive BACTRIM DS 800-160 MG ORAL TABLET 1 tab by mouth twice daily 2017 BACTRIM DS 800-160 MG ORAL TABLET 106464 TRIMETHOPRIM- SULFAMETHOXAZOLE Inactive BACTROBAN 2 % EXTERNAL OINTMENT Apply to affected area BID 05/18 BACTROBAN 2 % EXTERNAL OINTMENT MUPIROCIN Inactive GUAIFENESIN DM 400-20 MG ORAL TABLET 1 pill by mouth twice daily, if needed for cough GUAIFENESIN DM 400-20 MG ORAL TABLET 9021183 DEXTROMETHORPHAN-GUAIFENESIN Inactive ATORVASTATIN CALCIUM 40 MG ORAL TABLET 1 po qHS ATORVASTATIN CALCIUM 40 MG ORAL TABLET 843420 ATORVASTATIN CALCIUM Inactive MECLIZINE HCL 25 MG ORAL TABLET 1 po q8hr PRN Dizziness MECLIZINE HCL 25 MG ORAL TABLET 429198 MECLIZINE HCL Inactive TRAMADOL HCL 50 MG ORAL TABLET 2 po q 6 hrs prn TRAMADOL HCL 50 MG ORAL TABLET 291997 TRAMADOL HCL Inactive CIPRO 500 MG ORAL TABLET 1 tablet by mouth twice daily CIPRO 500 MG ORAL TABLET 393967 CIPROFLOXACIN HCL Inactive CEFDINIR 300 MG ORAL CAPSULE by mouth twice a day CEFDINIR 300 MG ORAL CAPSULE 605745 CEFDINIR Inactive CLINDAMYCIN HCL 300 MG ORAL CAPSULE 1 po QID x 7 days CLINDAMYCIN HCL 300 MG ORAL CAPSULE 230850 CLINDAMYCIN HCL Inactive Advance Directives Directive Description [...] Panel - Chemistry sodium, serum 139 mmol/L 832-659 4283/05/04 carbon dioxide, venous blood 28.7 mmol/L 21.0-32.0 [...] 6.2 % 4.3-6.0 cholesterol, serum 302 mg/dL 832-844 9341/05/04 triglyceride, serum, fasting 145 mg/dL 30-200 HDL cholesterol, serum 61 mg/dL 32-60 LDL cholesterol, serum 212 mg/dL 0-130 Lab Report: Lipid Panel, HGBA1C, MICROALB/CREAT W/RATIO, Comp. Metabolic ... - Chemistry cholesterol, serum 240 mg/dL 264-393 3776/12/18 triglyceride, serum, fasting 119 mg/dL 30-200 HDL cholesterol, serum 51 mg/dL 32-60 LDL cholesterol, serum 165 mg/dL 0-130 hemoglobin A1C, blood, as % of total hemoglobin 6.3 % 4.3-6.0 sodium, serum 139 mmol/L 820-511 5129/12/18 carbon dioxide, venous blood 25.9 mmol/L 21.0-32.0 [...] 0-29 Encounters Code Encounter Date Provider Facility CPT-56516 Level 3 Est. Patient 14:11:29 CABINETMAKER APPRENTICE Andre Barreto MD [facility] CPT-71861 Level 4 Est. Patient 10:54:33 CABINETMAKER APPRENTICE Andre Barreto MD [facility] CPT-63975 Level 4 Est. Patient 09:44:36 CDT Andre Barreto MD [facility] CPT-61464 Level 4 Est. Patient 10:07:14 CDT Andre Barreto MD [facility] CPT-67169 Level 3 Est. Patient 14:29:01 CDT Esa Jackson MD [facility] CPT-74405 Level 3 Est. Patient 14:06:16 CDT Andre Barreto MD [facility] CPT-43284 Level 3 Est. Patient 09:16:36 CDT David King [facility] CPT-31012 Level 3 Est. Patient 09:24:01 CABINETMAKER APPRENTICE David King [facility] CPT-94978 Level 3 Est. Patient 13:01:07 CABINETMAKER APPRENTICE Solitario Howe MD [facility] CPT-69885 Level 4 Est. Patient 10:26:48 CABINETMAKER APPRENTICE Andre Barreto MD [facility] CPT-71708 Level 4 Est. Patient 09:45:06 CDT Andre Barreto MD [facility] CPT-98571 Level 4 Est. Patient 11:53:39 CABINETMAKER APPRENTICE Andre Barreto MD [facility] CPT-75232 Level 4 Est. Patient 14:21:31 CDT Andre Barreto MD [facility] CPT-06650 Level 4 Est. Patient 15:24:17 CDT Andre Barreto MD [facility] CPT-45285 Level 3 Est. Patient 10:36:40 CDT Andre Barreto MD [facility] CPT-06335 Level 4 Est. Patient 11:27:43 CDT Andre Barreto MD [facility] CPT-66726 Level 3 Est. Patient 10:57:31 CABINETMAKER APPRENTICE Andre Barreto MD [facility] CPT-35383 Level 3 Est. Patient 13:53:13 CABINETMAKER APPRENTICE Andre Barreto MD [facility] CPT-20215 Level 3 Est. Patient 09:16:12 CDT Andre Barreto MD [facility] CPT-62589 Level 3 Est. Patient 14:50:35 CDT Andre Barreto MD [facility] Procedures Code Procedure Name Date Entry Date Standard Description CPT-000 Give Immunizations Due 11:57:53 CDT CPT-000 Give Appropriate Flu Vaccine 10:54:34 CABINETMAKER APPRENTICE CPT-G0439 Subsequent Annual Wellness Exam 10:54:34 CABINETMAKER APPRENTICE CPT-53703 Bone Density - XRAY USE ONLY 11:55:39 CDT CPT-23699 Postop F/U Visit 14:31:27 CDT CPT-53725 Postop F/U Visit 14:30:20 CDT CPT-16816 Sono pelvis coley bladder only - XRAY USE ONLY 15:07:39 CDT CPT-49380 First Vx - Ix admin for Medicare patients 13:56:44 CABINETMAKER APPRENTICE CPT-85185 Zostavax Subcutaneous Solution Reconstituted 03161 UNT/0.65ML 12/22 13:56:44 CABINETMAKER APPRENTICE CPT-G0009 Administration of Pneumococcal Vaccine 10:12:50 CDT CPT-56447 Pneumovax 23 Injection Injectable 25 MCG/0.5ML 10:12:50 CDT CPT-G0439 Subsequent Annual Wellness Exam 09:49:25 CDT CPT-81101 First Vx - Ix admin for Medicare patients 17:55:11 [facility] CPT-96798 Fluzone High-Dose Intramuscular Suspension 17:55:11 [facility] CPT-73671 Venipuncture Draw Fee 14:11:36 CDT CPT-54321 Lipid - LAB USE ONLY 14:11:36 CDT CPT-31668 CMP - LAB USE ONLY 14:11:36 CDT CPT-G0438 Initial Annual Wellness Exam 13:29:06 CDT CPT-G0009 Administration of Pneumococcal Vaccine 13:26:57 CDT CPT-17380 Prevnar 13 Intramuscular Suspension 13:26:56 CDT 08/19 CPT-39061 Bone Density - XRAY USE ONLY 09:30:16 CDT CPT-Cryo Cryotherapy 08:59:26 CABINETMAKER APPRENTICE CPT-Cryo Cryotherapy 08:46:02 CDT CPT-93819 Chest 2V Frontal and Lat 14:02:13 CABINETMAKER APPRENTICE
--- OUTSIDE RECORDS SUMMARY | 2018-03-16 19:11 | XMS REPORT | Clinical Summary ---
Author Author Admin, EDUARDO Organization [facility] Address Unknown Phone Unavailable Allergies, Adverse Reactions, Alerts Allergy Name Reaction Description Start Date Severity Status Provider SULFA Mild No Longer Active Jillina Frazell VIDEO CONTROL ENGINEER PENICILLIN Mild No Longer Active Jillina Frazell VIDEO CONTROL ENGINEER ZINC Mild No Longer Active Jillina Frazell VIDEO CONTROL ENGINEER SULFA Critical No Longer Active Marcelle Yesi [...] Coronary atherosclerosis of unspecified type of vessel, barrow or graft Obstructive sleep apnea 327.23 Active [...] 0.5 po qd x 4 days PREDNISONE 42823683428 Active Andre Barreto MD Active DOXYCYCLINE MONOHYDRATE 100 MG ORAL CAPSULE 1 po BID x 10 days DOXYCYCLINE MONOHYDRATE 45696730586 Active Andre Barreto MD Active TUSSIONEX PENNKINETIC ER 10-8 MG/5ML ORAL SUSPENSION EXTENDED RELEASE 5ml po q12hr PRN Cough HYDROCOD POLST-CHLORPHEN POLST 42604492454 Active Andre Barreto MD Active ADVAIR DISKUS 250-50 MCG/DOSE INHALATION AEROSOL POWDER BREATH ACTIVATED 1 INH BID FLUTICASONE-SALMETEROL 91041009735 Active Andre Barreto MD Active MYRBETRIQ 25 MG ORAL TABLET EXTENDED RELEASE 24 HOUR 1 po qd MIRABEGRON 48788591297 Active Andre Barreto MD Active TRAMADOL HCL 50 MG ORAL TABLET 2 po q 6 hrs prn TRAMADOL HCL 96490374383 No Longer Active Andre Barreto MD Active MECLIZINE HCL 25 MG ORAL TABLET 1 po q8hr PRN Dizziness MECLIZINE HCL 66166674148 No Longer Active Andre Barreto MD Active MELOXICAM 15 MG ORAL TABLET 1 po qd PRN Pain MELOXICAM 80867436915 Active Andre Barreto MD Active ATORVASTATIN CALCIUM 40 MG ORAL TABLET 1 po qHS ATORVASTATIN CALCIUM 18603857562 No Longer Active Andre Barreto MD Active ATORVASTATIN CALCIUM 20 MG ORAL TABLET 1 po MWF ATORVASTATIN CALCIUM 13010339423 Active Andre Barreto MD Active GUAIFENESIN DM 400-20 MG ORAL TABLET 1 pill by mouth twice daily, if needed for cough DEXTROMETHORPHAN-GUAIFENESIN 87761794737 No Longer Active Andre Barreto MD Active BACTROBAN 2 % EXTERNAL OINTMENT Apply to affected area BID 05/18 MUPIROCIN 94915679857 No Longer Active Moira Price MA Active CLINDAMYCIN HCL 300 MG ORAL CAPSULE 1 po QID x 7 days CLINDAMYCIN HCL 74700614665 No Longer Active David King APRN Active BACTRIM DS 800-160 MG ORAL TABLET 1 tab by mouth twice daily 2017 TRIMETHOPRIM-SULFAMETHOXAZOLE 32183847719 No Longer Active Javanllkinza King APRN Active CEFDINIR 300 MG ORAL CAPSULE by mouth twice a day CEFDINIR 27325760782 No Longer Active David Montsemaury REYNA Active BENZONATATE 200 MG ORAL CAPSULE 1 three times a day as needed for cough 03/27 BENZONATATE 25230851423 No Longer Active Luna Prabhakar Active ZITHROMAX Z-NEVAEH 250 MG ORAL TABLET 2 today and then 1 daily for 4 days 03/27 AZITHROMYCIN 78032196022 No Longer Active Luna Prabhakar Active PREDNISONE 20 MG ORAL TABLET 2 daily for 3 days then 1 daily for 3 days 03/27 PREDNISONE 31968863992 No Longer Active Luna Prabhakar Active CLOPIDOGREL BISULFATE 75 MG ORAL TABLET 1 po qd CLOPIDOGREL BISULFATE 04604960866 Active Andre Barreto MD Active FUROSEMIDE 20 MG ORAL TABLET 1 po qd PRN Edema FUROSEMIDE 46233045936 Active Andre Barreto MD Active PROAIR HFA 108 (90 Base) MCG/ACT INHALATION AEROSOL SOLUTION 2 puffs q4hr PRN Shortness of air/Wheezing ALBUTEROL SULFATE 12014372193 Active Andre Barreto MD Active ATORVASTATIN CALCIUM 80 MG ORAL TABLET 1 po qHS ATORVASTATIN CALCIUM 73780467195 No Longer Active Andre Barreto MD Active AMBIEN 5 MG ORAL TABLET 1 po qHS PRN Insomnia ZOLPIDEM TARTRATE 96901872179 Active Andre Barreto MD Active DETROL 2 MG ORAL TABLET 1 po qd TOLTERODINE TARTRATE 39511376547 Active Andre Barreto MD Active NITROGLYCERIN 0.4 MG SUBLINGUAL TABLET SUBLINGUAL 1 SL q5min PRN Chest pain up to 3 doses NITROGLYCERIN 29357591331 Active Andre Barreto MD Active TOPROL XL 50 MG ORAL TABLET EXTENDED RELEASE 24 HOUR 1 po qd METOPROLOL SUCCINATE 67023615978 Active Andre Barreto MD Active FLUOXETINE HCL 40 MG ORAL CAPSULE 1 po qd FLUOXETINE HCL 94589544538 Active Andre Barreto MD Active BENICAR HCT 40-25 MG ORAL TABLET Take one by mouth daily OLMESARTAN MEDOXOMIL-HCTZ 74054421361 No Longer Active Andre Barreto MD Active LOSARTAN POTASSIUM-HCTZ 100-25 MG ORAL TABLET 1 po qd LOSARTAN POTASSIUM-HCTZ 99413360720 Active Andre Barreto MD Active BETAMETHASONE DIPROPIONATE 0.05 % EXTERNAL OINTMENT Apply to affected areas BID for up to 2 weeks BETAMETHASONE DIPROPIONATE 34851099820 No Longer Active Andre Barreto MD Active ZOFRAN 4 MG ORAL TABLET 1 po q6hr PRN Nausea ONDANSETRON HCL 61681081432 No Longer Active Andre Barreto MD Active CIPRO 500 MG ORAL TABLET 1 tablet by mouth twice daily CIPROFLOXACIN HCL 99191438498 No Longer Active Andre Barreto MD Active SYMBICORT 160-4.5 MCG/ACT INHALATION AEROSOL 2 puffs inhaled bid BUDESONIDE-FORMOTEROL FUMARATE 41215195167 No Longer Active Andre Barreto MD Active DICLOFENAC SODIUM 75 MG ORAL TABLET DELAYED RELEASE 1 tablet by mouth twice daily DICLOFENAC SODIUM 69221686301 No Longer Active Andre Barreto MD Active PROZAC 40 MG ORAL CAPSULE 1 cap by mouth at bedtime FLUOXETINE HCL 59478842546 No Longer Active Andre Barreto MD Active HYDROCODONE-ACETAMINOPHEN 5-325 MG ORAL TABLET 1 po q 6hr PRN Pain HYDROCODONE-ACETAMINOPHEN 90809937118 No Longer Active Andre Barreto MD Active HYDROCODONE-ACETAMINOPHEN 5-325 MG ORAL TABLET 1 po q 6hr PRN Pain HYDROCODONE-ACETAMINOPHEN 5-325 MG ORAL TABLET 850490 HYDROCODONE- ACETAMINOPHEN Inactive PROZAC 40 MG ORAL CAPSULE 1 cap by mouth at bedtime PROZAC 40 MG ORAL CAPSULE 169692 FLUOXETINE HCL Inactive DICLOFENAC SODIUM 75 MG ORAL TABLET DELAYED RELEASE 1 tablet by mouth twice daily DICLOFENAC SODIUM 75 MG ORAL TABLET DELAYED RELEASE 749338 DICLOFENAC SODIUM Inactive SYMBICORT 160-4.5 MCG/ACT INHALATION AEROSOL 2 puffs inhaled bid SYMBICORT 160-4.5 MCG/ACT INHALATION AEROSOL BUDESONIDE-FORMOTEROL FUMARATE Inactive ZOFRAN 4 MG ORAL TABLET 1 po q6hr PRN Nausea ZOFRAN 4 MG ORAL TABLET 780438 ONDANSETRON HCL Inactive BETAMETHASONE DIPROPIONATE 0.05 % EXTERNAL OINTMENT Apply to affected areas BID for up to 2 weeks BETAMETHASONE DIPROPIONATE 0.05 % EXTERNAL OINTMENT 842622 BETAMETHASONE DIPROPIONATE Inactive BENICAR HCT 40-25 MG ORAL TABLET Take one by mouth daily BENICAR HCT 40-25 MG ORAL TABLET 436984 OLMESARTAN MEDOXOMIL-HCTZ Inactive ATORVASTATIN CALCIUM 80 MG ORAL TABLET 1 po qHS ATORVASTATIN CALCIUM 80 MG ORAL TABLET 493894 ATORVASTATIN CALCIUM Inactive PREDNISONE 20 MG ORAL TABLET 2 daily for 3 days then 1 daily for 3 days 03/27 PREDNISONE 20 MG ORAL TABLET 822473 PREDNISONE Inactive ZITHROMAX Z-NEVAEH 250 MG ORAL TABLET 2 today and then 1 daily for 4 days 03/27 ZITHROMAX Z-NEVAEH 250 MG ORAL TABLET 262597 AZITHROMYCIN Inactive BENZONATATE 200 MG ORAL CAPSULE 1 three times a day as needed for cough 03/27 BENZONATATE 200 MG ORAL CAPSULE 493933 BENZONATATE Inactive BACTRIM DS 800-160 MG ORAL TABLET 1 tab by mouth twice daily 2017 BACTRIM DS 800-160 MG ORAL TABLET 044078 TRIMETHOPRIM- SULFAMETHOXAZOLE Inactive BACTROBAN 2 % EXTERNAL OINTMENT Apply to affected area BID 05/18 BACTROBAN 2 % EXTERNAL OINTMENT MUPIROCIN Inactive GUAIFENESIN DM 400-20 MG ORAL TABLET 1 pill by mouth twice daily, if needed for cough GUAIFENESIN DM 400-20 MG ORAL TABLET 2227421 DEXTROMETHORPHAN-GUAIFENESIN Inactive ATORVASTATIN CALCIUM 40 MG ORAL TABLET 1 po qHS ATORVASTATIN CALCIUM 40 MG ORAL TABLET 736329 ATORVASTATIN CALCIUM Inactive MECLIZINE HCL 25 MG ORAL TABLET 1 po q8hr PRN Dizziness MECLIZINE HCL 25 MG ORAL TABLET 970084 MECLIZINE HCL Inactive TRAMADOL HCL 50 MG ORAL TABLET 2 po q 6 hrs prn TRAMADOL HCL 50 MG ORAL TABLET 562292 TRAMADOL HCL Inactive CIPRO 500 MG ORAL TABLET 1 tablet by mouth twice daily CIPRO 500 MG ORAL TABLET 873025 CIPROFLOXACIN HCL Inactive CEFDINIR 300 MG ORAL CAPSULE by mouth twice a day CEFDINIR 300 MG ORAL CAPSULE 916792 CEFDINIR Inactive CLINDAMYCIN HCL 300 MG ORAL CAPSULE 1 po QID x 7 days CLINDAMYCIN HCL 300 MG ORAL CAPSULE 714460 CLINDAMYCIN HCL Inactive Advance Directives Directive Description [...] Panel - Chemistry sodium, serum 139 mmol/L 350-084 0697/05/04 carbon dioxide, venous blood 28.7 mmol/L 21.0-32.0 [...] 6.2 % 4.3-6.0 cholesterol, serum 302 mg/dL 680-769 4879/05/04 triglyceride, serum, fasting 145 mg/dL 30-200 HDL cholesterol, serum 61 mg/dL 32-60 LDL cholesterol, serum 212 mg/dL 0-130 Lab Report: Lipid Panel, HGBA1C, MICROALB/CREAT W/RATIO, Comp. Metabolic ... - Chemistry cholesterol, serum 240 mg/dL 097-028 5485/12/18 triglyceride, serum, fasting 119 mg/dL 30-200 HDL cholesterol, serum 51 mg/dL 32-60 LDL cholesterol, serum 165 mg/dL 0-130 hemoglobin A1C, blood, as % of total hemoglobin 6.3 % 4.3-6.0 sodium, serum 139 mmol/L 065-261 4325/12/18 carbon dioxide, venous blood 25.9 mmol/L 21.0-32.0 [...] 0-29 Encounters Code Encounter Date Provider Facility CPT-03578 Level 3 Est. Patient 14:11:29 FABRICATION INSPECTOR Andre Barreto MD [facility] CPT-46607 Level 4 Est. Patient 10:54:33 FABRICATION INSPECTOR Andre Barreto MD [facility] CPT-91321 Level 4 Est. Patient 09:44:36 CDT Andre Barreto MD [facility] CPT-96157 Level 4 Est. Patient 10:07:14 CDT Andre Barreto MD [facility] CPT-78321 Level 3 Est. Patient 14:29:01 CDT Esa Jackson MD [facility] CPT-47177 Level 3 Est. Patient 14:06:16 CDT Andre Barreto MD [facility] CPT-76974 Level 3 Est. Patient 09:16:36 CDT David King [facility] CPT-98616 Level 3 Est. Patient 09:24:01 FABRICATION INSPECTOR David King [facility] CPT-65280 Level 3 Est. Patient 13:01:07 FABRICATION INSPECTOR Solitario Howe MD [facility] CPT-15196 Level 4 Est. Patient 10:26:48 FABRICATION INSPECTOR Andre Barreto MD [facility] CPT-84849 Level 4 Est. Patient 09:45:06 CDT Andre Barreto MD [facility] CPT-05875 Level 4 Est. Patient 11:53:39 FABRICATION INSPECTOR Andre Barreto MD [facility] CPT-78752 Level 4 Est. Patient 14:21:31 CDT Andre Barreto MD [facility] CPT-64479 Level 4 Est. Patient 15:24:17 CDT Andre Barreto MD [facility] CPT-76530 Level 3 Est. Patient 10:36:40 CDT Andre Barreto MD [facility] CPT-44522 Level 4 Est. Patient 11:27:43 CDT Andre Barreto MD [facility] CPT-27095 Level 3 Est. Patient 10:57:31 FABRICATION INSPECTOR Andre Barreto MD [facility] CPT-97975 Level 3 Est. Patient 13:53:13 FABRICATION INSPECTOR Andre Barreto MD [facility] CPT-35449 Level 3 Est. Patient 09:16:12 CDT Andre Barreto MD [facility] CPT-32276 Level 3 Est. Patient 14:50:35 CDT Andre Barreto MD [facility] Procedures Code Procedure Name Date Entry Date Standard Description CPT-000 Give Immunizations Due 11:57:53 CDT CPT-000 Give Appropriate Flu Vaccine 10:54:34 FABRICATION INSPECTOR CPT-G0439 Subsequent Annual Wellness Exam 10:54:34 FABRICATION INSPECTOR CPT-49206 Bone Density - XRAY USE ONLY 11:55:39 CDT CPT-50661 Postop F/U Visit 14:31:27 CDT CPT-11217 Postop F/U Visit 14:30:20 CDT CPT-36716 Sono pelvis coley bladder only - XRAY USE ONLY 15:07:39 CDT CPT-11493 First Vx - Ix admin for Medicare patients 13:56:44 FABRICATION INSPECTOR CPT-73607 Zostavax Subcutaneous Solution Reconstituted 31389 UNT/0.65ML 12/22 13:56:44 FABRICATION INSPECTOR CPT-G0009 Administration of Pneumococcal Vaccine 10:12:50 CDT CPT-94385 Pneumovax 23 Injection Injectable 25 MCG/0.5ML 10:12:50 CDT CPT-G0439 Subsequent Annual Wellness Exam 09:49:25 CDT CPT-96481 First Vx - Ix admin for Medicare patients 17:55:11 [facility] CPT-53906 Fluzone High-Dose Intramuscular Suspension 17:55:11 [facility] CPT-43947 Venipuncture Draw Fee 14:11:36 CDT CPT-02247 Lipid - LAB USE ONLY 14:11:36 CDT CPT-04970 CMP - LAB USE ONLY 14:11:36 CDT CPT-G0438 Initial Annual Wellness Exam 13:29:06 CDT CPT-G0009 Administration of Pneumococcal Vaccine 13:26:57 CDT CPT-61716 Prevnar 13 Intramuscular Suspension 13:26:56 CDT 08/19 CPT-43456 Bone Density - XRAY USE ONLY 09:30:16 CDT CPT-Cryo Cryotherapy 08:59:26 FABRICATION INSPECTOR CPT-Cryo Cryotherapy 08:46:02 CDT CPT-57029 Chest 2V Frontal and Lat 14:02:13 FABRICATION INSPECTOR
--- OUTSIDE RECORDS SUMMARY | 2018-03-16 19:12 | XMS REPORT | Clinical Summary ---
Author Author Admin, Mobile Messenger Organization [facility] Address Unknown Phone Unavailable Allergies, Adverse Reactions, Alerts Allergy Name Reaction Description Start Date Severity Status Provider SULFA Mild No Longer Active Jillina Frazell DEPUTY SHERIFF CHIEF PENICILLIN Mild No Longer Active Jillina Frazell DEPUTY SHERIFF CHIEF ZINC Mild No Longer Active Jillina Frazell DEPUTY SHERIFF CHIEF SULFA Critical No Longer Active Marcelle Yesi [...] Coronary atherosclerosis of unspecified type of vessel, stebbins or graft Obstructive sleep apnea 327.23 Active [...] Elevated blood sugar 790.29 Inactive Marcelle Key [facility] Other abnormal glucose Glucose intolerance 271.3 Active [...] Generic Name NDC Status Provider Patient Instruction ADVAIR DISKUS 250-50 MCG/DOSE INHALATION AEROSOL POWDER BREATH ACTIVATED 1 INH BID FLUTICASONE-SALMETEROL 74796963455 Active Andre Barreto MD Active MYRBETRIQ 25 MG ORAL TABLET EXTENDED RELEASE 24 HOUR 1 po qd MIRABEGRON 15659198397 Active Andre Barreto MD Active TRAMADOL HCL 50 MG ORAL TABLET 2 po q 6 hrs prn TRAMADOL HCL 18580635354 No Longer Active Andre Barreto MD Active MECLIZINE HCL 25 MG ORAL TABLET 1 po q8hr PRN Dizziness MECLIZINE HCL 91279112627 No Longer Active Andre Barreto MD Active MELOXICAM 15 MG ORAL TABLET 1 po qd PRN Pain MELOXICAM 11897826398 Active Andre Barreto MD Active ATORVASTATIN CALCIUM 40 MG ORAL TABLET 1 po qHS ATORVASTATIN CALCIUM 41899438993 No Longer Active Andre Barreto MD Active ATORVASTATIN CALCIUM 20 MG ORAL TABLET 1 po MWF ATORVASTATIN CALCIUM 48175506739 Active Andre Barreto MD Active GUAIFENESIN DM 400-20 MG ORAL TABLET 1 pill by mouth twice daily, if needed for cough DEXTROMETHORPHAN-GUAIFENESIN 70097714635 No Longer Active Andre Barreto MD Active BACTROBAN 2 % EXTERNAL OINTMENT Apply to affected area BID 05/18 MUPIROCIN 15633211625 No Longer Active Moira Price MA Active CLINDAMYCIN HCL 300 MG ORAL CAPSULE 1 po QID x 7 days CLINDAMYCIN HCL 47564886506 No Longer Active Jillina Frazell DEPUTY SHERIFF CHIEF Active BACTRIM DS 800-160 MG ORAL TABLET 1 tab by mouth twice daily 2017 TRIMETHOPRIM-SULFAMETHOXAZOLE 77631236976 No Longer Active Jillina Frazell DEPUTY SHERIFF CHIEF Active CEFDINIR 300 MG ORAL CAPSULE by mouth twice a day CEFDINIR 76307003646 No Longer Active Jillina Frazell DEPUTY SHERIFF CHIEF Active BENZONATATE 200 MG ORAL CAPSULE 1 three times a day as needed for cough 03/27 BENZONATATE 75110994794 No Longer Active Luna Prabhakar Active ZITHROMAX Z-NEVAEH 250 MG ORAL TABLET 2 today and then 1 daily for 4 days 03/27 AZITHROMYCIN 83059033468 No Longer Active Luna Prabhakar Active PREDNISONE 20 MG ORAL TABLET 2 daily for 3 days then 1 daily for 3 days 03/27 PREDNISONE 79529560069 No Longer Active Luna Prabhakar Active CLOPIDOGREL BISULFATE 75 MG ORAL TABLET 1 po qd CLOPIDOGREL BISULFATE 59975217623 Active Andre Barreto MD Active FUROSEMIDE 20 MG ORAL TABLET 1 po qd PRN Edema FUROSEMIDE 73621138977 Active Andre Barreto MD Active PROAIR HFA 108 (90 Base) MCG/ACT INHALATION AEROSOL SOLUTION 2 puffs q4hr PRN Shortness of air/Wheezing ALBUTEROL SULFATE 09294188484 Active Andre Barreto MD Active ATORVASTATIN CALCIUM 80 MG ORAL TABLET 1 po qHS ATORVASTATIN CALCIUM 06516106681 No Longer Active Andre Barreto MD Active AMBIEN 5 MG ORAL TABLET 1 po qHS PRN Insomnia ZOLPIDEM TARTRATE 23089480918 Active Andre Barreto MD Active DETROL 2 MG ORAL TABLET 1 po qd TOLTERODINE TARTRATE 27281384922 Active Andre Barreto MD Active NITROGLYCERIN 0.4 MG SUBLINGUAL TABLET SUBLINGUAL 1 SL q5min PRN Chest pain up to 3 doses NITROGLYCERIN 61421894309 Active Andre Barreto MD Active TOPROL XL 50 MG ORAL TABLET EXTENDED RELEASE 24 HOUR 1 po qd METOPROLOL SUCCINATE 15295125316 Active Andre Barreto MD Active FLUOXETINE HCL 40 MG ORAL CAPSULE 1 po qd FLUOXETINE HCL 61807224250 Active Andre Barreto MD Active BENICAR HCT 40-25 MG ORAL TABLET Take one by mouth daily OLMESARTAN MEDOXOMIL-HCTZ 09758153313 No Longer Active Andre Barreto MD Active LOSARTAN POTASSIUM-HCTZ 100-25 MG ORAL TABLET 1 po qd LOSARTAN POTASSIUM-HCTZ 43555525064 Active Andre Barreto MD Active BETAMETHASONE DIPROPIONATE 0.05 % EXTERNAL OINTMENT Apply to affected areas BID for up to 2 weeks BETAMETHASONE DIPROPIONATE 46436491231 No Longer Active Andre Barreto MD Active ZOFRAN 4 MG ORAL TABLET 1 po q6hr PRN Nausea ONDANSETRON HCL 74297173515 No Longer Active Andre Barreto MD Active CIPRO 500 MG ORAL TABLET 1 tablet by mouth twice daily CIPROFLOXACIN HCL 74106082378 No Longer Active Andre Barreto MD Active SYMBICORT 160-4.5 MCG/ACT INHALATION AEROSOL 2 puffs inhaled bid BUDESONIDE-FORMOTEROL FUMARATE 11555351570 No Longer Active Andre Barreto MD Active DICLOFENAC SODIUM 75 MG ORAL TABLET DELAYED RELEASE 1 tablet by mouth twice daily DICLOFENAC SODIUM 08276361656 No Longer Active Andre Barreto MD Active PROZAC 40 MG ORAL CAPSULE 1 cap by mouth at bedtime FLUOXETINE HCL 38710806790 No Longer Active Andre Barreto MD Active HYDROCODONE-ACETAMINOPHEN 5-325 MG ORAL TABLET 1 po q 6hr PRN Pain HYDROCODONE-ACETAMINOPHEN 32129632359 No Longer Active Andre Barreto MD Active HYDROCODONE-ACETAMINOPHEN 5-325 MG ORAL TABLET 1 po q 6hr PRN Pain HYDROCODONE-ACETAMINOPHEN 5-325 MG ORAL TABLET 130654 HYDROCODONE- ACETAMINOPHEN Inactive PROZAC 40 MG ORAL CAPSULE 1 cap by mouth at bedtime PROZAC 40 MG ORAL CAPSULE 967048 FLUOXETINE HCL Inactive DICLOFENAC SODIUM 75 MG ORAL TABLET DELAYED RELEASE 1 tablet by mouth twice daily DICLOFENAC SODIUM 75 MG ORAL TABLET DELAYED RELEASE 762316 DICLOFENAC SODIUM Inactive SYMBICORT 160-4.5 MCG/ACT INHALATION AEROSOL 2 puffs inhaled bid SYMBICORT 160-4.5 MCG/ACT INHALATION AEROSOL BUDESONIDE-FORMOTEROL FUMARATE Inactive ZOFRAN 4 MG ORAL TABLET 1 po q6hr PRN Nausea ZOFRAN 4 MG ORAL TABLET 654742 ONDANSETRON HCL Inactive BETAMETHASONE DIPROPIONATE 0.05 % EXTERNAL OINTMENT Apply to affected areas BID for up to 2 weeks BETAMETHASONE DIPROPIONATE 0.05 % EXTERNAL OINTMENT 667183 BETAMETHASONE DIPROPIONATE Inactive BENICAR HCT 40-25 MG ORAL TABLET Take one by mouth daily BENICAR HCT 40-25 MG ORAL TABLET 232077 OLMESARTAN MEDOXOMIL-HCTZ Inactive ATORVASTATIN CALCIUM 80 MG ORAL TABLET 1 po qHS ATORVASTATIN CALCIUM 80 MG ORAL TABLET 512143 ATORVASTATIN CALCIUM Inactive PREDNISONE 20 MG ORAL TABLET 2 daily for 3 days then 1 daily for 3 days 03/27 PREDNISONE 20 MG ORAL TABLET 532270 PREDNISONE Inactive ZITHROMAX Z-NEVAEH 250 MG ORAL TABLET 2 today and then 1 daily for 4 days 03/27 ZITHROMAX Z-NEVAEH 250 MG ORAL TABLET 550561 AZITHROMYCIN Inactive BENZONATATE 200 MG ORAL CAPSULE 1 three times a day as needed for cough 03/27 BENZONATATE 200 MG ORAL CAPSULE 525868 BENZONATATE Inactive BACTRIM DS 800-160 MG ORAL TABLET 1 tab by mouth twice daily 2017 BACTRIM DS 800-160 MG ORAL TABLET 165332 TRIMETHOPRIM- SULFAMETHOXAZOLE Inactive BACTROBAN 2 % EXTERNAL OINTMENT Apply to affected area BID 05/18 BACTROBAN 2 % EXTERNAL OINTMENT MUPIROCIN Inactive GUAIFENESIN DM 400-20 MG ORAL TABLET 1 pill by mouth twice daily, if needed for cough GUAIFENESIN DM 400-20 MG ORAL TABLET 9691253 DEXTROMETHORPHAN-GUAIFENESIN Inactive ATORVASTATIN CALCIUM 40 MG ORAL TABLET 1 po qHS ATORVASTATIN CALCIUM 40 MG ORAL TABLET 954406 ATORVASTATIN CALCIUM Inactive MECLIZINE HCL 25 MG ORAL TABLET 1 po q8hr PRN Dizziness MECLIZINE HCL 25 MG ORAL TABLET 967161 MECLIZINE HCL Inactive TRAMADOL HCL 50 MG ORAL TABLET 2 po q 6 hrs prn TRAMADOL HCL 50 MG ORAL TABLET 456840 TRAMADOL HCL Inactive CIPRO 500 MG ORAL TABLET 1 tablet by mouth twice daily CIPRO 500 MG ORAL TABLET 075711 CIPROFLOXACIN HCL Inactive CEFDINIR 300 MG ORAL CAPSULE by mouth twice a day CEFDINIR 300 MG ORAL CAPSULE 178973 CEFDINIR Inactive CLINDAMYCIN HCL 300 MG ORAL CAPSULE 1 po QID x 7 days CLINDAMYCIN HCL 300 MG ORAL CAPSULE 738214 CLINDAMYCIN HCL Inactive Advance Directives Directive Description Start Date DISCUSSED WITH PATIENT -- NO DECISION MADE Vital Signs Date Name Value Unit Range Description blood pressure, diastolic 76 mm[Hg] BP pat [...] Panel - Chemistry sodium, serum 139 mmol/L 199-265 9425/05/04 carbon dioxide, venous blood 28.7 mmol/L 21.0-32.0 [...] 6.2 % 4.3-6.0 cholesterol, serum 302 mg/dL 922-127 7452/05/04 triglyceride, serum, fasting 145 mg/dL 30-200 HDL cholesterol, serum 61 mg/dL 32-60 LDL cholesterol, serum 212 mg/dL 0-130 Lab Report: Lipid Panel, HGBA1C, MICROALB/CREAT W/RATIO, Comp. Metabolic ... - Chemistry cholesterol, serum 240 mg/dL 612-345 5780/12/18 triglyceride, serum, fasting 119 mg/dL 30-200 HDL cholesterol, serum 51 mg/dL 32-60 LDL cholesterol, serum 165 mg/dL 0-130 hemoglobin A1C, blood, as % of total hemoglobin 6.3 % 4.3-6.0 sodium, serum 139 mmol/L 541-772 8877/12/18 carbon dioxide, venous blood 25.9 mmol/L 21.0-32.0 [...] 0-29 Encounters Code Encounter Date Provider Facility CPT-49599 Level 4 Est. Patient 10:54:33 [employer] Andre Barreto MD [facility] CPT-40921 Level 4 Est. Patient 09:44:36 CDT Andre Barreto MD [facility] CPT-97384 Level 4 Est. Patient 10:07:14 CDT Andre Barreto MD [facility] CPT-81278 Level 3 Est. Patient 14:29:01 CDT Esa Jackson MD [facility] CPT-71314 Level 3 Est. Patient 14:06:16 CDT Andre Barreto MD [facility] CPT-88012 Level 3 Est. Patient 09:16:36 CDT [facility] CPT-93188 Level 3 Est. Patient 09:24:01 [employer] TE[employer] [facility] CPT-86574 Level 3 Est. Patient 13:01:07 [employer] Solitario Howe MD [facility] CPT-10369 Level 4 Est. Patient 10:26:48 [employer] Andre Barreto MD [facility] CPT-56282 Level 4 Est. Patient 09:45:06 CDT Andre Barreto MD [facility] CPT-46740 Level 4 Est. Patient 11:53:39 [employer] TE[employer] Andre Barreto MD [facility] CPT-66366 Level 4 Est. Patient 14:21:31 CDT Andre Barreto MD [facility] CPT-36947 Level 4 Est. Patient 15:24:17 CDT Andre Barreto MD [facility] CPT-00785 Level 3 Est. Patient 10:36:40 CDT Andre Barreto MD [facility] CPT-25920 Level 4 Est. Patient 11:27:43 CDT Andre Barreto MD [facility] CPT-08443 Level 3 Est. Patient 10:57:31 [employer] Andre Barreto MD [facility] CPT-00121 Level 3 Est. Patient 13:53:13 [employer] TE[employer] Andre Barreto MD [facility] CPT-08032 Level 3 Est. Patient 09:16:12 CDT Andre Barreto MD [facility] CPT-49641 Level 3 Est. Patient 14:50:35 CDT Andre Barreto MD [facility] Procedures Code Procedure Name Date Entry Date Standard Description CPT-000 Give Immunizations Due 11:57:53 CDT CPT-000 Give Appropriate Flu Vaccine 10:54:34 [employer] CPT-G0439 Subsequent Annual Wellness Exam 10:54:34 [facility] CPT-68938 Bone Density - XRAY USE ONLY 11:55:39 CDT CPT-80150 Postop F/U Visit 14:31:27 CDT CPT-83739 Postop F/U Visit 14:30:20 CDT CPT-49251 Sono pelvis coley bladder only - XRAY USE ONLY 15:07:39 CDT CPT-95301 First Vx - Ix admin for Medicare patients 13:56:44 [employer] CPT-73674 Zostavax Subcutaneous Solution Reconstituted 98500 UNT/0.65ML 12/22 13:56:44 [employer] CPT-G0009 Administration of Pneumococcal Vaccine 10:12:50 CDT CPT-25126 Pneumovax 23 Injection Injectable 25 MCG/0.5ML 10:12:50 CDT CPT-G0439 Subsequent Annual Wellness Exam 09:49:25 CDT CPT-80427 First Vx - Ix admin for Medicare patients 17:55:11 [employer] CPT-83809 Fluzone High-Dose Intramuscular Suspension 17:55:11 [employer] CPT-40327 Venipuncture Draw Fee 14:11:36 CDT CPT-13808 Lipid - LAB USE ONLY 14:11:36 CDT CPT-16680 CMP - LAB USE ONLY 14:11:36 CDT CPT-G0438 Initial Annual Wellness Exam 13:29:06 CDT CPT-G0009 Administration of Pneumococcal Vaccine 13:26:57 CDT CPT-83621 Prevnar 13 Intramuscular Suspension 13:26:56 CDT 08/19 CPT-01664 Bone Density - XRAY USE ONLY 09:30:16 CDT CPT-Cryo Cryotherapy 08:59:26 [employer] CPT-Cryo Cryotherapy 08:46:02 CDT CPT-11798 Chest 2V Frontal and Lat 14:02:13 [employer]ER
--- OUTSIDE RECORDS SUMMARY | 2018-03-16 19:12 | XMS REPORT | Clinical Summary ---
Author Author Admin, hulu Organization [facility] Address Unknown Phone Unavailable Allergies, Adverse Reactions, Alerts Allergy Name Reaction Description Start Date Severity Status Provider SULFA Mild No Longer Active Jillina Frazell LEGAL PROCESS SPECIALIST PENICILLIN Mild No Longer Active Jillina Frazell LEGAL PROCESS SPECIALIST ZINC Mild No Longer Active Jillina Frazell LEGAL PROCESS SPECIALIST SULFA Critical No Longer Active Marcelle Yesi [...] Coronary atherosclerosis of unspecified type of vessel, [place] or graft Obstructive sleep apnea 327.23 Active [...] Elevated blood sugar 790.29 Inactive Marcelle Key [facility] Other abnormal glucose Glucose intolerance 271.3 Active [...] Generic Name NDC Status Provider Patient Instruction MYRBETRIQ 25 MG ORAL TABLET EXTENDED RELEASE 24 HOUR 1 po qd MIRABEGRON 53496858005 Active Andre Barreto MD Active TRAMADOL HCL 50 MG ORAL TABLET 2 po q 6 hrs prn TRAMADOL HCL 47953944423 No Longer Active Andre Barreto MD Active MECLIZINE HCL 25 MG ORAL TABLET 1 po q8hr PRN Dizziness MECLIZINE HCL 84477729942 No Longer Active Andre Barreto MD Active MELOXICAM 15 MG ORAL TABLET 1 po qd PRN Pain MELOXICAM 38939886127 Active Andre Barreto MD Active ATORVASTATIN CALCIUM 40 MG ORAL TABLET 1 po qHS ATORVASTATIN CALCIUM 15372158197 No Longer Active Andre Barreto MD Active ATORVASTATIN CALCIUM 20 MG ORAL TABLET 1 po MWF ATORVASTATIN CALCIUM 30988753252 Active Andre Barreto MD Active GUAIFENESIN DM 400-20 MG ORAL TABLET 1 pill by mouth twice daily, if needed for cough DEXTROMETHORPHAN-GUAIFENESIN 32131900569 No Longer Active Andre Barreto MD Active BACTROBAN 2 % EXTERNAL OINTMENT Apply to affected area BID 05/18 MUPIROCIN 81271020252 No Longer Active Moira Price MA Active CLINDAMYCIN HCL 300 MG ORAL CAPSULE 1 po QID x 7 days CLINDAMYCIN HCL 18109077307 No Longer Active Jillina Frazell LEGAL PROCESS SPECIALIST Active BACTRIM DS 800-160 MG ORAL TABLET 1 tab by mouth twice daily 2017 TRIMETHOPRIM-SULFAMETHOXAZOLE 83191602694 No Longer Active Jillina Frazell LEGAL PROCESS SPECIALIST Active CEFDINIR 300 MG ORAL CAPSULE by mouth twice a day CEFDINIR 43238359513 No Longer Active Jillina Frazell LEGAL PROCESS SPECIALIST Active BENZONATATE 200 MG ORAL CAPSULE 1 three times a day as needed for cough 03/27 BENZONATATE 77094396130 No Longer Active Luna Prabhakar Active ZITHROMAX Z-NEVAEH 250 MG ORAL TABLET 2 today and then 1 daily for 4 days 03/27 AZITHROMYCIN 62486875096 No Longer Active Luna Prabhakar Active PREDNISONE 20 MG ORAL TABLET 2 daily for 3 days then 1 daily for 3 days 03/27 PREDNISONE 01057924523 No Longer Active Luna Prabhakar Active CLOPIDOGREL BISULFATE 75 MG ORAL TABLET 1 po qd CLOPIDOGREL BISULFATE 49248321142 Active Andre Barreto MD Active FUROSEMIDE 20 MG ORAL TABLET 1 po qd PRN Edema FUROSEMIDE 43192564104 Active Andre Barreto MD Active PROAIR HFA 108 (90 Base) MCG/ACT INHALATION AEROSOL SOLUTION 2 puffs q4hr PRN Shortness of air/Wheezing ALBUTEROL SULFATE 30058625576 Active Andre Barreto MD Active ATORVASTATIN CALCIUM 80 MG ORAL TABLET 1 po qHS ATORVASTATIN CALCIUM 79774099052 No Longer Active Andre Barreot MD Active AMBIEN 5 MG ORAL TABLET 1 po qHS PRN Insomnia ZOLPIDEM TARTRATE 99581350980 Active Andre Barreto MD Active DETROL 2 MG ORAL TABLET 1 po qd TOLTERODINE TARTRATE 70526909993 Active Andre Barreto MD Active NITROGLYCERIN 0.4 MG SUBLINGUAL TABLET SUBLINGUAL 1 SL q5min PRN Chest pain up to 3 doses NITROGLYCERIN 23988182585 Active Andre Barreto MD Active TOPROL XL 50 MG ORAL TABLET EXTENDED RELEASE 24 HOUR 1 po qd METOPROLOL SUCCINATE 51331107075 Active Andre Barreto MD Active SYMBICORT 160-4.5 MCG/ACT INHALATION AEROSOL 2 puff BID BUDESONIDE-FORMOTEROL FUMARATE 42154388123 Active Andre Barreto MD Active FLUOXETINE HCL 40 MG ORAL CAPSULE 1 po qd FLUOXETINE HCL 68163422412 Active Andre Barreto MD Active BENICAR HCT 40-25 MG ORAL TABLET Take one by mouth daily OLMESARTAN MEDOXOMIL-HCTZ 86583111697 No Longer Active Andre Barreto MD Active LOSARTAN POTASSIUM-HCTZ 100-25 MG ORAL TABLET 1 po qd LOSARTAN POTASSIUM-HCTZ 19247975130 Active Andre Barreto MD Active BETAMETHASONE DIPROPIONATE 0.05 % EXTERNAL OINTMENT Apply to affected areas BID for up to 2 weeks BETAMETHASONE DIPROPIONATE 67721024496 No Longer Active Andre Barreto MD Active ZOFRAN 4 MG ORAL TABLET 1 po q6hr PRN Nausea ONDANSETRON HCL 95632412393 No Longer Active Andre Barreto MD Active CIPRO 500 MG ORAL TABLET 1 tablet by mouth twice daily CIPROFLOXACIN HCL 01201230258 No Longer Active Andre Barreto MD Active SYMBICORT 160-4.5 MCG/ACT INHALATION AEROSOL 2 puffs inhaled bid BUDESONIDE-FORMOTEROL FUMARATE 53093995890 No Longer Active Andre Barreto MD Active DICLOFENAC SODIUM 75 MG ORAL TABLET DELAYED RELEASE 1 tablet by mouth twice daily DICLOFENAC SODIUM 38548174157 No Longer Active Andre Barreto MD Active PROZAC 40 MG ORAL CAPSULE 1 cap by mouth at bedtime FLUOXETINE HCL 98132047556 No Longer Active Andre Barreto MD Active HYDROCODONE-ACETAMINOPHEN 5-325 MG ORAL TABLET 1 po q 6hr PRN Pain HYDROCODONE-ACETAMINOPHEN 64907637703 No Longer Active Andre Barreto MD Active HYDROCODONE-ACETAMINOPHEN 5-325 MG ORAL TABLET 1 po q 6hr PRN Pain HYDROCODONE-ACETAMINOPHEN 5-325 MG ORAL TABLET 469748 HYDROCODONE- ACETAMINOPHEN Inactive PROZAC 40 MG ORAL CAPSULE 1 cap by mouth at bedtime PROZAC 40 MG ORAL CAPSULE 888967 FLUOXETINE HCL Inactive DICLOFENAC SODIUM 75 MG ORAL TABLET DELAYED RELEASE 1 tablet by mouth twice daily DICLOFENAC SODIUM 75 MG ORAL TABLET DELAYED RELEASE 966343 DICLOFENAC SODIUM Inactive SYMBICORT 160-4.5 MCG/ACT INHALATION AEROSOL 2 puffs inhaled bid SYMBICORT 160-4.5 MCG/ACT INHALATION AEROSOL BUDESONIDE-FORMOTEROL FUMARATE Inactive ZOFRAN 4 MG ORAL TABLET 1 po q6hr PRN Nausea ZOFRAN 4 MG ORAL TABLET 237721 ONDANSETRON HCL Inactive BETAMETHASONE DIPROPIONATE 0.05 % EXTERNAL OINTMENT Apply to affected areas BID for up to 2 weeks BETAMETHASONE DIPROPIONATE 0.05 % EXTERNAL OINTMENT 924748 BETAMETHASONE DIPROPIONATE Inactive BENICAR HCT 40-25 MG ORAL TABLET Take one by mouth daily BENICAR HCT 40-25 MG ORAL TABLET 555062 OLMESARTAN MEDOXOMIL-HCTZ Inactive ATORVASTATIN CALCIUM 80 MG ORAL TABLET 1 po qHS ATORVASTATIN CALCIUM 80 MG ORAL TABLET 938882 ATORVASTATIN CALCIUM Inactive PREDNISONE 20 MG ORAL TABLET 2 daily for 3 days then 1 daily for 3 days 03/27 PREDNISONE 20 MG ORAL TABLET 898683 PREDNISONE Inactive ZITHROMAX Z-NEVAEH 250 MG ORAL TABLET 2 today and then 1 daily for 4 days 03/27 ZITHROMAX Z-NEVAEH 250 MG ORAL TABLET 247809 AZITHROMYCIN Inactive BENZONATATE 200 MG ORAL CAPSULE 1 three times a day as needed for cough 03/27 BENZONATATE 200 MG ORAL CAPSULE 896955 BENZONATATE Inactive BACTRIM DS 800-160 MG ORAL TABLET 1 tab by mouth twice daily 2017 BACTRIM DS 800-160 MG ORAL TABLET 742038 TRIMETHOPRIM- SULFAMETHOXAZOLE Inactive BACTROBAN 2 % EXTERNAL OINTMENT Apply to affected area BID 05/18 BACTROBAN 2 % EXTERNAL OINTMENT MUPIROCIN Inactive GUAIFENESIN DM 400-20 MG ORAL TABLET 1 pill by mouth twice daily, if needed for cough GUAIFENESIN DM 400-20 MG ORAL TABLET 1413418 DEXTROMETHORPHAN-GUAIFENESIN Inactive ATORVASTATIN CALCIUM 40 MG ORAL TABLET 1 po qHS ATORVASTATIN CALCIUM 40 MG ORAL TABLET 359897 ATORVASTATIN CALCIUM Inactive MECLIZINE HCL 25 MG ORAL TABLET 1 po q8hr PRN Dizziness MECLIZINE HCL 25 MG ORAL TABLET 146907 MECLIZINE HCL Inactive TRAMADOL HCL 50 MG ORAL TABLET 2 po q 6 hrs prn TRAMADOL HCL 50 MG ORAL TABLET 260356 TRAMADOL HCL Inactive CIPRO 500 MG ORAL TABLET 1 tablet by mouth twice daily CIPRO 500 MG ORAL TABLET 879847 CIPROFLOXACIN HCL Inactive CEFDINIR 300 MG ORAL CAPSULE by mouth twice a day CEFDINIR 300 MG ORAL CAPSULE 789142 CEFDINIR Inactive CLINDAMYCIN HCL 300 MG ORAL CAPSULE 1 po QID x 7 days CLINDAMYCIN HCL 300 MG ORAL CAPSULE 986958 CLINDAMYCIN HCL Inactive Advance Directives Directive Description [...] Panel - Chemistry sodium, serum 139 mmol/L 306-139 7005/05/04 carbon dioxide, venous blood 28.7 mmol/L 21.0-32.0 [...] 6.2 % 4.3-6.0 cholesterol, serum 302 mg/dL 606-740 4825/05/04 triglyceride, serum, fasting 145 mg/dL 30-200 HDL cholesterol, serum 61 mg/dL 32-60 LDL cholesterol, serum 212 mg/dL 0-130 Lab Report: Lipid Panel, HGBA1C, MICROALB/CREAT W/RATIO, Comp. Metabolic ... - Chemistry cholesterol, serum 240 mg/dL 289-379 1905/12/18 triglyceride, serum, fasting 119 mg/dL 30-200 HDL cholesterol, serum 51 mg/dL 32-60 LDL cholesterol, serum 165 mg/dL 0-130 hemoglobin A1C, blood, as % of total hemoglobin 6.3 % 4.3-6.0 sodium, serum 139 mmol/L 430-945 4924/12/18 carbon dioxide, venous blood 25.9 mmol/L 21.0-32.0 [...] 0-29 Encounters Code Encounter Date Provider Facility CPT-11454 Level 4 Est. Patient 10:54:33 LIVESTOCK YARD SUPERVISOR Andre Barreto MD [facility] CPT-67784 Level 4 Est. Patient 09:44:36 CDT nAdre Barreto MD [facility] CPT-87887 Level 4 Est. Patient 10:07:14 CDT Andre Barreto MD [facility] CPT-65557 Level 3 Est. Patient 14:29:01 CDT Esa Jackson MD [facility] CPT-44920 Level 3 Est. Patient 14:06:16 CDT Andre Barreto MD [facility] CPT-65058 Level 3 Est. Patient 09:16:36 CDT David King [facility] CPT-68466 Level 3 Est. Patient 09:24:01 LIVESTOCK YARD SUPERVISOR David King [facility] CPT-99486 Level 3 Est. Patient 13:01:07 LIVESTOCK YARD SUPERVISOR Solitario Howe MD [facility] CPT-49986 Level 4 Est. Patient 10:26:48 LIVESTOCK YARD SUPERVISOR Andre Barreto MD [facility] CPT-61006 Level 4 Est. Patient 09:45:06 CDT Andre Barreto MD [facility] CPT-34124 Level 4 Est. Patient 11:53:39 LIVESTOCK YARD SUPERVISOR Andre Barreto MD [facility] CPT-79391 Level 4 Est. Patient 14:21:31 CDT Andre Barreto MD [facility] CPT-82254 Level 4 Est. Patient 15:24:17 CDT Andre Barreto MD [facility] CPT-12879 Level 3 Est. Patient 10:36:40 CDT Andre Barreto MD [facility] CPT-84112 Level 4 Est. Patient 11:27:43 CDT Andre Barreto MD [facility] CPT-50244 Level 3 Est. Patient 10:57:31 LIVESTOCK YARD SUPERVISOR Andre Barreto MD [facility] CPT-79987 Level 3 Est. Patient 13:53:13 LIVESTOCK YARD SUPERVISOR Andre Barreto MD [facility] CPT-40991 Level 3 Est. Patient 09:16:12 CDT Andre Barreto MD [facility] CPT-90391 Level 3 Est. Patient 14:50:35 CDT Andre Barreto MD [facility] Procedures Code Procedure Name Date Entry Date Standard Description CPT-G0439 Subsequent Annual Wellness Exam 10:54:34 LIVESTOCK YARD SUPERVISOR CPT-25357 Bone Density - XRAY USE ONLY 11:55:39 CDT CPT-39444 Postop F/U Visit 14:31:27 CDT CPT-17992 Postop F/U Visit 14:30:20 CDT CPT-60128 Sono pelvis coley bladder only - XRAY USE ONLY 15:07:39 CDT CPT-38913 First Vx - Ix admin for Medicare patients 13:56:44 LIVESTOCK YARD SUPERVISOR CPT-91247 Zostavax Subcutaneous Solution Reconstituted 41364 UNT/0.65ML 12/22 13:56:44 LIVESTOCK YARD SUPERVISOR CPT-G0009 Administration of Pneumococcal Vaccine 10:12:50 CDT CPT-59381 Pneumovax 23 Injection Injectable 25 MCG/0.5ML 10:12:50 CDT CPT-G0439 Subsequent Annual Wellness Exam 09:49:25 CDT CPT-95547 First Vx - Ix admin for Medicare patients 17:55:11 LIVESTOCK YARD SUPERVISOR CPT-44331 Fluzone High-Dose Intramuscular Suspension 17:55:11 LIVESTOCK YARD SUPERVISOR CPT-08149 Venipuncture Draw Fee 14:11:36 CDT CPT-23585 Lipid - LAB USE ONLY 14:11:36 CDT CPT-88485 CMP - LAB USE ONLY 14:11:36 CDT CPT-G0438 Initial Annual Wellness Exam 13:29:06 CDT CPT-G0009 Administration of Pneumococcal Vaccine 13:26:57 CDT CPT-06295 Prevnar 13 Intramuscular Suspension 13:26:56 CDT 08/19 CPT-03316 Bone Density - XRAY USE ONLY 09:30:16 CDT CPT-Cryo Cryotherapy 08:59:26 LIVESTOCK YARD SUPERVISOR CPT-Cryo Cryotherapy 08:46:02 CDT CPT-84379 Chest 2V Frontal and Lat 14:02:13 LIVESTOCK YARD SUPERVISOR
--- OUTSIDE RECORDS SUMMARY | 2018-03-16 19:13 | XMS REPORT | Clinical Summary ---
Author Author Admin, EDUARDO Organization [facility] Address Unknown Phone Unavailable Allergies, Adverse Reactions, Alerts Allergy Name Reaction Description Start Date Severity Status Provider SULFA Mild No Longer Active Jillina Frazell SNOWSPORT INSTRUCTOR PENICILLIN Mild No Longer Active Jillina Frazell SNOWSPORT INSTRUCTOR ZINC Mild No Longer Active Jillina Frazell SNOWSPORT INSTRUCTOR SULFA Critical No Longer Active Marcelle Yesi [...] Coronary atherosclerosis of unspecified type of vessel, [place] or graft Obstructive sleep apnea 327.23 Active [...] RELEASE 24 HOUR 1 po qd MIRABEGRON 38130788924 Active Andre Barreto MD Active TRAMADOL HCL 50 MG ORAL TABLET 2 po q 6 hrs prn TRAMADOL HCL 20263618360 No Longer Active Andre Barreto MD Active MECLIZINE HCL 25 MG ORAL TABLET 1 po q8hr PRN Dizziness MECLIZINE HCL 62302633783 No Longer Active Andre Barreto MD Active MELOXICAM 15 MG ORAL TABLET 1 po qd PRN Pain MELOXICAM 65371415261 Active Andre Barreto MD Active ATORVASTATIN CALCIUM 40 MG ORAL TABLET 1 po qHS ATORVASTATIN CALCIUM 62543293709 No Longer Active Andre Barreto MD Active ATORVASTATIN CALCIUM 20 MG ORAL TABLET 1 po MWF ATORVASTATIN CALCIUM 94648254847 Active Andre Barreto MD Active GUAIFENESIN DM 400-20 MG ORAL TABLET 1 pill by mouth twice daily, if needed for cough DEXTROMETHORPHAN-GUAIFENESIN 88859818158 No Longer Active Andre Barreto MD Active BACTROBAN 2 % EXTERNAL OINTMENT Apply to affected area BID 05/18 MUPIROCIN 83132574583 No Longer Active Moira Price MA Active CLINDAMYCIN HCL 300 MG ORAL CAPSULE 1 po QID x 7 days CLINDAMYCIN HCL 22071846933 No Longer Active Jillina Frazell SNOWSPORT INSTRUCTOR Active BACTRIM DS 800-160 MG ORAL TABLET 1 tab by mouth twice daily 2017 TRIMETHOPRIM-SULFAMETHOXAZOLE 13860847704 No Longer Active Jillina Frazell SNOWSPORT INSTRUCTOR Active CEFDINIR 300 MG ORAL CAPSULE by mouth twice a day CEFDINIR 55660223468 No Longer Active Jillina Frazell SNOWSPORT INSTRUCTOR Active BENZONATATE 200 MG ORAL CAPSULE 1 three times a day as needed for cough 03/27 BENZONATATE 54170433169 No Longer Active Luna Prabhakar Active ZITHROMAX Z-NEVAEH 250 MG ORAL TABLET 2 today and then 1 daily for 4 days 03/27 AZITHROMYCIN 03290549997 No Longer Active Luna Prabhakar Active PREDNISONE 20 MG ORAL TABLET 2 daily for 3 days then 1 daily for 3 days 03/27 PREDNISONE 23133595611 No Longer Active Luna Prabhakar Active CLOPIDOGREL BISULFATE 75 MG ORAL TABLET 1 po qd CLOPIDOGREL BISULFATE 72787209513 Active Andre Barreto MD Active FUROSEMIDE 20 MG ORAL TABLET 1 po qd PRN Edema FUROSEMIDE 57429827396 Active Andre Barreto MD Active PROAIR HFA 108 (90 Base) MCG/ACT INHALATION AEROSOL SOLUTION 2 puffs q4hr PRN Shortness of air/Wheezing ALBUTEROL SULFATE 18983928788 Active Andre Barreto MD Active ATORVASTATIN CALCIUM 80 MG ORAL TABLET 1 po qHS ATORVASTATIN CALCIUM 36774991543 No Longer Active Andre Barreto MD Active AMBIEN 5 MG ORAL TABLET 1 po qHS PRN Insomnia ZOLPIDEM TARTRATE 69880789246 Active Andre Barreto MD Active DETROL 2 MG ORAL TABLET 1 po qd TOLTERODINE TARTRATE 16178694823 Active Andre Barreto MD Active NITROGLYCERIN 0.4 MG SUBLINGUAL TABLET SUBLINGUAL 1 SL q5min PRN Chest pain up to 3 doses NITROGLYCERIN 44041240423 Active Andre Barreto MD Active TOPROL XL 50 MG ORAL TABLET EXTENDED RELEASE 24 HOUR 1 po qd METOPROLOL SUCCINATE 47443172765 Active Andre Barreto MD Active SYMBICORT 160-4.5 MCG/ACT INHALATION AEROSOL 2 puff BID BUDESONIDE-FORMOTEROL FUMARATE 82866253166 Active Andre Barreto MD Active FLUOXETINE HCL 40 MG ORAL CAPSULE 1 po qd FLUOXETINE HCL 12099022909 Active Andre Barreto MD Active BENICAR HCT 40-25 MG ORAL TABLET Take one by mouth daily OLMESARTAN MEDOXOMIL-HCTZ 22593447525 No Longer Active Andre Barreto MD Active LOSARTAN POTASSIUM-HCTZ 100-25 MG ORAL TABLET 1 po qd LOSARTAN POTASSIUM-HCTZ 21285080431 Active Andre Barreto MD Active BETAMETHASONE DIPROPIONATE 0.05 % EXTERNAL OINTMENT Apply to affected areas BID for up to 2 weeks BETAMETHASONE DIPROPIONATE 02550527038 No Longer Active Andre Barreto MD Active ZOFRAN 4 MG ORAL TABLET 1 po q6hr PRN Nausea ONDANSETRON HCL 85066394968 No Longer Active Andre Barreto MD Active CIPRO 500 MG ORAL TABLET 1 tablet by mouth twice daily CIPROFLOXACIN HCL 83288672098 No Longer Active Andre Barreto MD Active SYMBICORT 160-4.5 MCG/ACT INHALATION AEROSOL 2 puffs inhaled bid BUDESONIDE-FORMOTEROL FUMARATE 87079537487 No Longer Active Andre Barreto MD Active DICLOFENAC SODIUM 75 MG ORAL TABLET DELAYED RELEASE 1 tablet by mouth twice daily DICLOFENAC SODIUM 84774890548 No Longer Active Andre Barreto MD Active PROZAC 40 MG ORAL CAPSULE 1 cap by mouth at bedtime FLUOXETINE HCL 73179216145 No Longer Active Andre Barreto MD Active HYDROCODONE-ACETAMINOPHEN 5-325 MG ORAL TABLET 1 po q 6hr PRN Pain HYDROCODONE-ACETAMINOPHEN 02835769386 No Longer Active Andre Barreto MD Active HYDROCODONE-ACETAMINOPHEN 5-325 MG ORAL TABLET 1 po q 6hr PRN Pain HYDROCODONE-ACETAMINOPHEN 5-325 MG ORAL TABLET 533439 HYDROCODONE- ACETAMINOPHEN Inactive PROZAC 40 MG ORAL CAPSULE 1 cap by mouth at bedtime PROZAC 40 MG ORAL CAPSULE 934411 FLUOXETINE HCL Inactive DICLOFENAC SODIUM 75 MG ORAL TABLET DELAYED RELEASE 1 tablet by mouth twice daily DICLOFENAC SODIUM 75 MG ORAL TABLET DELAYED RELEASE 504649 DICLOFENAC SODIUM Inactive SYMBICORT 160-4.5 MCG/ACT INHALATION AEROSOL 2 puffs inhaled bid SYMBICORT 160-4.5 MCG/ACT INHALATION AEROSOL BUDESONIDE-FORMOTEROL FUMARATE Inactive ZOFRAN 4 MG ORAL TABLET 1 po q6hr PRN Nausea ZOFRAN 4 MG ORAL TABLET 766034 ONDANSETRON HCL Inactive BETAMETHASONE DIPROPIONATE 0.05 % EXTERNAL OINTMENT Apply to affected areas BID for up to 2 weeks BETAMETHASONE DIPROPIONATE 0.05 % EXTERNAL OINTMENT 201907 BETAMETHASONE DIPROPIONATE Inactive BENICAR HCT 40-25 MG ORAL TABLET Take one by mouth daily BENICAR HCT 40-25 MG ORAL TABLET 752204 OLMESARTAN MEDOXOMIL-HCTZ Inactive ATORVASTATIN CALCIUM 80 MG ORAL TABLET 1 po qHS ATORVASTATIN CALCIUM 80 MG ORAL TABLET 602774 ATORVASTATIN CALCIUM Inactive PREDNISONE 20 MG ORAL TABLET 2 daily for 3 days then 1 daily for 3 days 03/27 PREDNISONE 20 MG ORAL TABLET 840925 PREDNISONE Inactive ZITHROMAX Z-NEVAEH 250 MG ORAL TABLET 2 today and then 1 daily for 4 days 03/27 ZITHROMAX Z-NEVAEH 250 MG ORAL TABLET 546603 AZITHROMYCIN Inactive BENZONATATE 200 MG ORAL CAPSULE 1 three times a day as needed for cough 03/27 BENZONATATE 200 MG ORAL CAPSULE 832659 BENZONATATE Inactive BACTRIM DS 800-160 MG ORAL TABLET 1 tab by mouth twice daily 2017 BACTRIM DS 800-160 MG ORAL TABLET 515967 TRIMETHOPRIM- SULFAMETHOXAZOLE Inactive BACTROBAN 2 % EXTERNAL OINTMENT Apply to affected area BID 05/18 BACTROBAN 2 % EXTERNAL OINTMENT MUPIROCIN Inactive GUAIFENESIN DM 400-20 MG ORAL TABLET 1 pill by mouth twice daily, if needed for cough GUAIFENESIN DM 400-20 MG ORAL TABLET 8395495 DEXTROMETHORPHAN-GUAIFENESIN Inactive ATORVASTATIN CALCIUM 40 MG ORAL TABLET 1 po qHS ATORVASTATIN CALCIUM 40 MG ORAL TABLET 324911 ATORVASTATIN CALCIUM Inactive MECLIZINE HCL 25 MG ORAL TABLET 1 po q8hr PRN Dizziness MECLIZINE HCL 25 MG ORAL TABLET 454711 MECLIZINE HCL Inactive TRAMADOL HCL 50 MG ORAL TABLET 2 po q 6 hrs prn TRAMADOL HCL 50 MG ORAL TABLET 495820 TRAMADOL HCL Inactive CIPRO 500 MG ORAL TABLET 1 tablet by mouth twice daily CIPRO 500 MG ORAL TABLET 864090 CIPROFLOXACIN HCL Inactive CEFDINIR 300 MG ORAL CAPSULE by mouth twice a day CEFDINIR 300 MG ORAL CAPSULE 542090 CEFDINIR Inactive CLINDAMYCIN HCL 300 MG ORAL CAPSULE 1 po QID x 7 days CLINDAMYCIN HCL 300 MG ORAL CAPSULE 432824 CLINDAMYCIN HCL Inactive Advance Directives Directive Description [...] Panel - Chemistry sodium, serum 139 mmol/L 764-968 4133/05/04 carbon dioxide, venous blood 28.7 mmol/L 21.0-32.0 [...] 6.2 % 4.3-6.0 cholesterol, serum 302 mg/dL 338-593 3197/05/04 triglyceride, serum, fasting 145 mg/dL 30-200 HDL cholesterol, serum 61 mg/dL 32-60 LDL cholesterol, serum 212 mg/dL 0-130 Lab Report: Lipid Panel, HGBA1C, MICROALB/CREAT W/RATIO, Comp. Metabolic ... - Chemistry cholesterol, serum 240 mg/dL 151-958 1402/12/18 triglyceride, serum, fasting 119 mg/dL 30-200 HDL cholesterol, serum 51 mg/dL 32-60 LDL cholesterol, serum 165 mg/dL 0-130 hemoglobin A1C, blood, as % of total hemoglobin 6.3 % 4.3-6.0 sodium, serum 139 mmol/L 030-915 1576/12/18 carbon dioxide, venous blood 25.9 mmol/L 21.0-32.0 [...] 0-29 Encounters Code Encounter Date Provider Facility CPT-66814 Level 4 Est. Patient 10:54:33 AUTO BUMPER STRAIGHTENER Andre Barreto MD [facility] CPT-56564 Level 4 Est. Patient 09:44:36 CDT Andre Barreto MD [facility] CPT-45377 Level 4 Est. Patient 10:07:14 CDT Andre Barreto MD [facility] CPT-34738 Level 3 Est. Patient 14:29:01 CDT Esa Jackson MD [facility] CPT-48794 Level 3 Est. Patient 14:06:16 CDT Andre Barreto MD [facility] CPT-10637 Level 3 Est. Patient 09:16:36 CDT David King [facility] CPT-10033 Level 3 Est. Patient 09:24:01 AUTO BUMPER STRAIGHTENER David King [facility] CPT-62134 Level 3 Est. Patient 13:01:07 AUTO BUMPER STRAIGHTENER Solitario Howe MD [facility] CPT-30054 Level 4 Est. Patient 10:26:48 AUTO BUMPER STRAIGHTENER Andre Barreto MD [facility] CPT-73419 Level 4 Est. Patient 09:45:06 CDT Andre Barreto MD [facility] CPT-61175 Level 4 Est. Patient 11:53:39 AUTO BUMPER STRAIGHTENER Andre Barreto MD [facility] CPT-51635 Level 4 Est. Patient 14:21:31 CDT Andre Barreto MD [facility] CPT-78572 Level 4 Est. Patient 15:24:17 CDT Andre Barreto MD [facility] CPT-58943 Level 3 Est. Patient 10:36:40 CDT Andre Barreto MD [facility] CPT-71029 Level 4 Est. Patient 11:27:43 CDT Andre Barreto MD [facility] CPT-75797 Level 3 Est. Patient 10:57:31 AUTO BUMPER STRAIGHTENER Andre Barreto MD [facility] CPT-96309 Level 3 Est. Patient 13:53:13 AUTO BUMPER STRAIGHTENER Andre Barreto MD [facility] CPT-87036 Level 3 Est. Patient 09:16:12 CDT Andre Barreto MD [facility] CPT-71736 Level 3 Est. Patient 14:50:35 CDT Andre Barreto MD [facility] Procedures Code Procedure Name Date Entry Date Standard Description CPT-G0439 Subsequent Annual Wellness Exam 10:54:34 AUTO BUMPER STRAIGHTENER CPT-61886 Bone Density - XRAY USE ONLY 11:55:39 CDT CPT-53189 Postop F/U Visit 14:31:27 CDT CPT-92129 Postop F/U Visit 14:30:20 CDT CPT-64295 Sono pelvis coley bladder only - XRAY USE ONLY 15:07:39 CDT CPT-88577 First Vx - Ix admin for Medicare patients 13:56:44 AUTO BUMPER STRAIGHTENER CPT-20178 Zostavax Subcutaneous Solution Reconstituted 66569 UNT/0.65ML 12/22 13:56:44 AUTO BUMPER STRAIGHTENER CPT-G0009 Administration of Pneumococcal Vaccine 10:12:50 CDT CPT-94327 Pneumovax 23 Injection Injectable 25 MCG/0.5ML 10:12:50 CDT CPT-G0439 Subsequent Annual Wellness Exam 09:49:25 CDT CPT-81307 First Vx - Ix admin for Medicare patients 17:55:11 AUTO BUMPER STRAIGHTENER CPT-85124 Fluzone High-Dose Intramuscular Suspension 17:55:11 AUTO BUMPER STRAIGHTENER CPT-85972 Venipuncture Draw Fee 14:11:36 CDT CPT-03363 Lipid - LAB USE ONLY 14:11:36 CDT CPT-15277 CMP - LAB USE ONLY 14:11:36 CDT CPT-G0438 Initial Annual Wellness Exam 13:29:06 CDT CPT-G0009 Administration of Pneumococcal Vaccine 13:26:57 CDT CPT-59824 Prevnar 13 Intramuscular Suspension 13:26:56 CDT 08/19 CPT-54073 Bone Density - XRAY USE ONLY 09:30:16 CDT CPT-Cryo Cryotherapy 08:59:26 AUTO BUMPER STRAIGHTENER CPT-Cryo Cryotherapy 08:46:02 CDT CPT-63706 Chest 2V Frontal and Lat 14:02:13 AUTO BUMPER STRAIGHTENER
--- OUTSIDE RECORDS SUMMARY | 2018-03-16 19:14 | XMS REPORT | Clinical Summary ---
Author Author Admin, [employer] Organization [facility] Address Unknown Phone Unavailable Allergies, Adverse Reactions, Alerts Allergy Name Reaction Description Start Date Severity Status Provider SULFA Mild No Longer Active Jillina Frazell JOB COMPOSITOR PENICILLIN Mild No Longer Active Jillina Frazell JOB COMPOSITOR ZINC Mild No Longer Active Jillina Frazell JOB COMPOSITOR SULFA Critical No Longer Active Marcelle Yesi [...] Coronary atherosclerosis of unspecified type of vessel, [place] or graft Obstructive sleep apnea 327.23 Active [...] sugar 790.29 Inactive Marcelle Key [facility] Other abnormal glucose Glucose intolerance 271.3 [...] RELEASE 24 HOUR 1 po qd MIRABEGRON 73065765675 Active Andre Barreto MD Active TRAMADOL HCL 50 MG ORAL TABLET 2 po q 6 hrs prn TRAMADOL HCL 00139452684 No Longer Active Andre Barreto MD Active MECLIZINE HCL 25 MG ORAL TABLET 1 po q8hr PRN Dizziness MECLIZINE HCL 10834038689 No Longer Active Andre Barreto MD Active MELOXICAM 15 MG ORAL TABLET 1 po qd PRN Pain MELOXICAM 53894298325 Active Andre Barreto MD Active ATORVASTATIN CALCIUM 40 MG ORAL TABLET 1 po qHS ATORVASTATIN CALCIUM 66894825660 No Longer Active Andre Barreto MD Active ATORVASTATIN CALCIUM 20 MG ORAL TABLET 1 po MWF ATORVASTATIN CALCIUM 64479624057 Active Andre Barreto MD Active GUAIFENESIN DM 400-20 MG ORAL TABLET 1 pill by mouth twice daily, if needed for cough DEXTROMETHORPHAN-GUAIFENESIN 90262022181 No Longer Active Andre Barreto MD Active BACTROBAN 2 % EXTERNAL OINTMENT Apply to affected area BID 05/18 MUPIROCIN 97117596735 No Longer Active Moira Price MA Active CLINDAMYCIN HCL 300 MG ORAL CAPSULE 1 po QID x 7 days CLINDAMYCIN HCL 84182311532 No Longer Active Jillina Frazell JOB COMPOSITOR Active BACTRIM DS 800-160 MG ORAL TABLET 1 tab by mouth twice daily 2017 TRIMETHOPRIM-SULFAMETHOXAZOLE 44786701382 No Longer Active Jillina Frazell JOB COMPOSITOR Active CEFDINIR 300 MG ORAL CAPSULE by mouth twice a day CEFDINIR 93905478708 No Longer Active Jillina Frazell JOB COMPOSITOR Active BENZONATATE 200 MG ORAL CAPSULE 1 three times a day as needed for cough 03/27 BENZONATATE 88908962631 No Longer Active Luna Prabhakar Active ZITHROMAX Z-NEVAEH 250 MG ORAL TABLET 2 today and then 1 daily for 4 days 03/27 AZITHROMYCIN 09292467096 No Longer Active Luna Prabhakar Active PREDNISONE 20 MG ORAL TABLET 2 daily for 3 days then 1 daily for 3 days 03/27 PREDNISONE 62461645480 No Longer Active Luna Prabhakar Active CLOPIDOGREL BISULFATE 75 MG ORAL TABLET 1 po qd CLOPIDOGREL BISULFATE 16742015765 Active Andre aBrreto MD Active FUROSEMIDE 20 MG ORAL TABLET 1 po qd PRN Edema FUROSEMIDE 96607773504 Active Andre Barreto MD Active PROAIR HFA 108 (90 Base) MCG/ACT INHALATION AEROSOL SOLUTION 2 puffs q4hr PRN Shortness of air/Wheezing ALBUTEROL SULFATE 32687541081 Active Andre Barreto MD Active ATORVASTATIN CALCIUM 80 MG ORAL TABLET 1 po qHS ATORVASTATIN CALCIUM 41209468791 No Longer Active Andre Barreto MD Active AMBIEN 5 MG ORAL TABLET 1 po qHS PRN Insomnia ZOLPIDEM TARTRATE 11607058000 Active Andre Barreto MD Active DETROL 2 MG ORAL TABLET 1 po qd TOLTERODINE TARTRATE 26117915112 Active Andre Barreto MD Active NITROGLYCERIN 0.4 MG SUBLINGUAL TABLET SUBLINGUAL 1 SL q5min PRN Chest pain up to 3 doses NITROGLYCERIN 22286723431 Active Andre Barreto MD Active TOPROL XL 50 MG ORAL TABLET EXTENDED RELEASE 24 HOUR 1 po qd METOPROLOL SUCCINATE 42041685120 Active Andre Barreto MD Active SYMBICORT 160-4.5 MCG/ACT INHALATION AEROSOL 2 puff BID BUDESONIDE-FORMOTEROL FUMARATE 29336862811 Active Andre Barreto MD Active FLUOXETINE HCL 40 MG ORAL CAPSULE 1 po qd FLUOXETINE HCL 17076735402 Active Andre Barreto MD Active BENICAR HCT 40-25 MG ORAL TABLET Take one by mouth daily OLMESARTAN MEDOXOMIL-HCTZ 84363836627 No Longer Active Andre Barreto MD Active LOSARTAN POTASSIUM-HCTZ 100-25 MG ORAL TABLET 1 po qd LOSARTAN POTASSIUM-HCTZ 10823695404 Active Andre Barreto MD Active BETAMETHASONE DIPROPIONATE 0.05 % EXTERNAL OINTMENT Apply to affected areas BID for up to 2 weeks BETAMETHASONE DIPROPIONATE 52496698680 No Longer Active Andre Barreto MD Active ZOFRAN 4 MG ORAL TABLET 1 po q6hr PRN Nausea ONDANSETRON HCL 54615793150 No Longer Active Andre Barreto MD Active CIPRO 500 MG ORAL TABLET 1 tablet by mouth twice daily CIPROFLOXACIN HCL 17507564150 No Longer Active Andre Barreto MD Active SYMBICORT 160-4.5 MCG/ACT INHALATION AEROSOL 2 puffs inhaled bid BUDESONIDE-FORMOTEROL FUMARATE 24326153364 No Longer Active Andre Barreto MD Active DICLOFENAC SODIUM 75 MG ORAL TABLET DELAYED RELEASE 1 tablet by mouth twice daily DICLOFENAC SODIUM 35247986933 No Longer Active Andre Barreto MD Active PROZAC 40 MG ORAL CAPSULE 1 cap by mouth at bedtime FLUOXETINE HCL 96900378492 No Longer Active Andre Barreto MD Active HYDROCODONE-ACETAMINOPHEN 5-325 MG ORAL TABLET 1 po q 6hr PRN Pain HYDROCODONE-ACETAMINOPHEN 28086258026 No Longer Active Andre Barreto MD Active HYDROCODONE-ACETAMINOPHEN 5-325 MG ORAL TABLET 1 po q 6hr PRN Pain HYDROCODONE-ACETAMINOPHEN 5-325 MG ORAL TABLET 090953 HYDROCODONE- ACETAMINOPHEN Inactive PROZAC 40 MG ORAL CAPSULE 1 cap by mouth at bedtime PROZAC 40 MG ORAL CAPSULE 972798 FLUOXETINE HCL Inactive DICLOFENAC SODIUM 75 MG ORAL TABLET DELAYED RELEASE 1 tablet by mouth twice daily DICLOFENAC SODIUM 75 MG ORAL TABLET DELAYED RELEASE 303698 DICLOFENAC SODIUM Inactive SYMBICORT 160-4.5 MCG/ACT INHALATION AEROSOL 2 puffs inhaled bid SYMBICORT 160-4.5 MCG/ACT INHALATION AEROSOL BUDESONIDE-FORMOTEROL FUMARATE Inactive ZOFRAN 4 MG ORAL TABLET 1 po q6hr PRN Nausea ZOFRAN 4 MG ORAL TABLET 614613 ONDANSETRON HCL Inactive BETAMETHASONE DIPROPIONATE 0.05 % EXTERNAL OINTMENT Apply to affected areas BID for up to 2 weeks BETAMETHASONE DIPROPIONATE 0.05 % EXTERNAL OINTMENT 693492 BETAMETHASONE DIPROPIONATE Inactive BENICAR HCT 40-25 MG ORAL TABLET Take one by mouth daily BENICAR HCT 40-25 MG ORAL TABLET 054296 OLMESARTAN MEDOXOMIL-HCTZ Inactive ATORVASTATIN CALCIUM 80 MG ORAL TABLET 1 po qHS ATORVASTATIN CALCIUM 80 MG ORAL TABLET 850616 ATORVASTATIN CALCIUM Inactive PREDNISONE 20 MG ORAL TABLET 2 daily for 3 days then 1 daily for 3 days 03/27 PREDNISONE 20 MG ORAL TABLET 274534 PREDNISONE Inactive ZITHROMAX Z-NEVAEH 250 MG ORAL TABLET 2 today and then 1 daily for 4 days 03/27 ZITHROMAX Z-NEVAEH 250 MG ORAL TABLET 008449 AZITHROMYCIN Inactive BENZONATATE 200 MG ORAL CAPSULE 1 three times a day as needed for cough 03/27 BENZONATATE 200 MG ORAL CAPSULE 731071 BENZONATATE Inactive BACTRIM DS 800-160 MG ORAL TABLET 1 tab by mouth twice daily 2017 BACTRIM DS 800-160 MG ORAL TABLET 641569 TRIMETHOPRIM- SULFAMETHOXAZOLE Inactive BACTROBAN 2 % EXTERNAL OINTMENT Apply to affected area BID 05/18 BACTROBAN 2 % EXTERNAL OINTMENT MUPIROCIN Inactive GUAIFENESIN DM 400-20 MG ORAL TABLET 1 pill by mouth twice daily, if needed for cough GUAIFENESIN DM 400-20 MG ORAL TABLET 4376742 DEXTROMETHORPHAN-GUAIFENESIN Inactive ATORVASTATIN CALCIUM 40 MG ORAL TABLET 1 po qHS ATORVASTATIN CALCIUM 40 MG ORAL TABLET 498671 ATORVASTATIN CALCIUM Inactive MECLIZINE HCL 25 MG ORAL TABLET 1 po q8hr PRN Dizziness MECLIZINE HCL 25 MG ORAL TABLET 691979 MECLIZINE HCL Inactive TRAMADOL HCL 50 MG ORAL TABLET 2 po q 6 hrs prn TRAMADOL HCL 50 MG ORAL TABLET 580338 TRAMADOL HCL Inactive CIPRO 500 MG ORAL TABLET 1 tablet by mouth twice daily CIPRO 500 MG ORAL TABLET 391370 CIPROFLOXACIN HCL Inactive CEFDINIR 300 MG ORAL CAPSULE by mouth twice a day CEFDINIR 300 MG ORAL CAPSULE 824417 CEFDINIR Inactive CLINDAMYCIN HCL 300 MG ORAL CAPSULE 1 po QID x 7 days CLINDAMYCIN HCL 300 MG ORAL CAPSULE 985018 CLINDAMYCIN HCL Inactive Advance Directives Directive Description [...] Panel - Chemistry sodium, serum 139 mmol/L 872-774 9400/05/04 carbon dioxide, venous blood 28.7 mmol/L 21.0-32.0 [...] 6.2 % 4.3-6.0 cholesterol, serum 302 mg/dL 846-599 1664/05/04 triglyceride, serum, fasting 145 mg/dL 30-200 HDL cholesterol, serum 61 mg/dL 32-60 LDL cholesterol, serum 212 mg/dL 0-130 Lab Report: Lipid Panel, HGBA1C, MICROALB/CREAT W/RATIO, Comp. Metabolic ... - Chemistry cholesterol, serum 240 mg/dL 224-506 2366/12/18 triglyceride, serum, fasting 119 mg/dL 30-200 HDL cholesterol, serum 51 mg/dL 32-60 LDL cholesterol, serum 165 mg/dL 0-130 hemoglobin A1C, blood, as % of total hemoglobin 6.3 % 4.3-6.0 sodium, serum 139 mmol/L 707-623 5076/12/18 carbon dioxide, venous blood 25.9 mmol/L 21.0-32.0 [...] 0-29 Encounters Code Encounter Date Provider Facility CPT-28257 Level 4 Est. Patient 10:54:33 HYDROLOGIST Andre Barreto MD [facility] CPT-15044 Level 4 Est. Patient 09:44:36 CDT Andre Barreto MD [facility] CPT-10131 Level 4 Est. Patient 10:07:14 CDT Andre Barreto MD [facility] CPT-42308 Level 3 Est. Patient 14:29:01 CDT Esa Jackson MD [facility] CPT-61712 Level 3 Est. Patient 14:06:16 CDT Andre Barreto MD [facility] CPT-56984 Level 3 Est. Patient 09:16:36 CDT David King [facility] CPT-07372 Level 3 Est. Patient 09:24:01 HYDROLOGIST David King [facility] CPT-03572 Level 3 Est. Patient 13:01:07 HYDROLOGIST Solitario Howe MD [facility] CPT-09961 Level 4 Est. Patient 10:26:48 HYDROLOGIST Andre Barreto MD [facility] CPT-83644 Level 4 Est. Patient 09:45:06 CDT Andre Barreto MD [facility] CPT-77462 Level 4 Est. Patient 11:53:39 HYDROLOGIST Andre Barreto MD [facility] CPT-15162 Level 4 Est. Patient 14:21:31 CDT Andre Barreto MD [facility] CPT-25279 Level 4 Est. Patient 15:24:17 CDT Andre Barreto MD [facility] CPT-73031 Level 3 Est. Patient 10:36:40 CDT Andre Barerto MD [facility] CPT-65369 Level 4 Est. Patient 11:27:43 CDT Andre Barreto MD [facility] CPT-11184 Level 3 Est. Patient 10:57:31 HYDROLOGIST Andre Barreto MD [facility] CPT-99872 Level 3 Est. Patient 13:53:13 HYDROLOGIST Andre Barreto MD [facility] CPT-73405 Level 3 Est. Patient 09:16:12 CDT Andre Barreto MD [facility] CPT-25557 Level 3 Est. Patient 14:50:35 CDT Andre Barreto MD [facility] Procedures Code Procedure Name Date Entry Date Standard Description CPT-G0439 Subsequent Annual Wellness Exam 10:54:34 HYDROLOGIST CPT-90784 Bone Density - XRAY USE ONLY 11:55:39 CDT CPT-09843 Postop F/U Visit 14:31:27 CDT CPT-00124 Postop F/U Visit 14:30:20 CDT CPT-07203 Sono pelvis coley bladder only - XRAY USE ONLY 15:07:39 CDT CPT-16583 First Vx - Ix admin for Medicare patients 13:56:44 HYDROLOGIST CPT-26171 Zostavax Subcutaneous Solution Reconstituted 23122 UNT/0.65ML 12/22 13:56:44 HYDROLOGIST CPT-G0009 Administration of Pneumococcal Vaccine 10:12:50 CDT CPT-24751 Pneumovax 23 Injection Injectable 25 MCG/0.5ML 10:12:50 CDT CPT-G0439 Subsequent Annual Wellness Exam 09:49:25 CDT CPT-91934 First Vx - Ix admin for Medicare patients 17:55:11 HYDROLOGIST CPT-57105 Fluzone High-Dose Intramuscular Suspension 17:55:11 HYDROLOGIST CPT-20350 Venipuncture Draw Fee 14:11:36 CDT CPT-86099 Lipid - LAB USE ONLY 14:11:36 CDT CPT-70549 CMP - LAB USE ONLY 14:11:36 CDT CPT-G0438 Initial Annual Wellness Exam 13:29:06 CDT CPT-G0009 Administration of Pneumococcal Vaccine 13:26:57 CDT CPT-75242 Prevnar 13 Intramuscular Suspension 13:26:56 CDT 08/19 CPT-84098 Bone Density - XRAY USE ONLY 09:30:16 CDT CPT-Cryo Cryotherapy 08:59:26 HYDROLOGIST CPT-Cryo Cryotherapy 08:46:02 CDT CPT-67291 Chest 2V Frontal and Lat 14:02:13 HYDROLOGIST
--- OUTSIDE RECORDS SUMMARY | 2018-03-16 19:15 | XMS REPORT | Clinical Summary ---
Author Author Admin, [employer] Organization [employer] Address Unknown Phone Unavailable Allergies, Adverse Reactions, Alerts Allergy Name Reaction Description Start Date Severity Status Provider SULFA Mild No Longer Active Jillina Frazell ASSOCIATE PROFESSOR OF MEDICINE PENICILLIN Mild No Longer Active Jillina Frazell ASSOCIATE PROFESSOR OF MEDICINE ZINC Mild No Longer Active Jillina Frazell ASSOCIATE PROFESSOR OF MEDICINE SULFA Critical No Longer Active Marcelle Yesi [...] Coronary atherosclerosis of unspecified type of vessel, [place] or graft Obstructive sleep apnea 327.23 Active [...] elsewhere classified Insomnia, chronic 307.42 Active Andre Brareto MD Persistent disorder of initiating or maintaining [...] unspecified sites Benign paroxysmal positional vertigo 386.11 Active Andre Barreto MD Benign paroxysmal positional vertigo Body Mass Index 50.0-59.9 Adult Active Andre Barreto MD Body Mass Index 50.0-59.9, adult DYSPNEA ICD-786.09 Inactive Andre Barreto MD 2012 [...] Abscess, skin ICD-682.9 Inactive Andre Barreto MD Medication List Medication Instructions Start Date Stop Date Generic Name NDC Status Provider Patient Instruction MECLIZINE HCL 25 MG ORAL TABLET 1 po q8hr PRN Dizziness MECLIZINE HCL 47734952576 No Longer Active Andre Barreto MD Active MELOXICAM 15 MG ORAL TABLET 1 po qd PRN Pain MELOXICAM 77962562041 Active Andre Barreto MD Active ATORVASTATIN CALCIUM 40 MG ORAL TABLET 1 po qHS ATORVASTATIN CALCIUM 95212939081 No Longer Active Andre Barreto MD Active ATORVASTATIN CALCIUM 20 MG ORAL TABLET 1 po MWF ATORVASTATIN CALCIUM 82531983085 Active Andre Barreto MD Active GUAIFENESIN DM 400-20 MG ORAL TABLET 1 pill by mouth twice daily, if needed for cough DEXTROMETHORPHAN-GUAIFENESIN 09551595299 No Longer Active Andre Barreto MD Active BACTROBAN 2 % EXTERNAL OINTMENT Apply to affected area BID 05/18 MUPIROCIN 46411706729 No Longer Active Moira Price MA Active CLINDAMYCIN HCL 300 MG ORAL CAPSULE 1 po QID x 7 days CLINDAMYCIN HCL 91258202992 No Longer Active Jillina Frazell ASSOCIATE PROFESSOR OF MEDICINE Active BACTRIM DS 800-160 MG ORAL TABLET 1 tab by mouth twice daily 2017 TRIMETHOPRIM-SULFAMETHOXAZOLE 84216822308 No Longer Active Jillina Frazell ASSOCIATE PROFESSOR OF MEDICINE Active CEFDINIR 300 MG ORAL CAPSULE by mouth twice a day CEFDINIR 21359794863 No Longer Active Jillina Frazell ASSOCIATE PROFESSOR OF MEDICINE Active BENZONATATE 200 MG ORAL CAPSULE 1 three times a day as needed for cough 03/27 BENZONATATE 30640292575 No Longer Active Luna Prabhakar Active ZITHROMAX Z-NEVAEH 250 MG ORAL TABLET 2 today and then 1 daily for 4 days 03/27 AZITHROMYCIN 23574546728 No Longer Active Luna Prabhakar Active PREDNISONE 20 MG ORAL TABLET 2 daily for 3 days then 1 daily for 3 days 03/27 PREDNISONE 84181289182 No Longer Active Luna Prabhakar Active CLOPIDOGREL BISULFATE 75 MG ORAL TABLET 1 po qd CLOPIDOGREL BISULFATE 18768355411 Active Andre Barreto MD Active FUROSEMIDE 20 MG ORAL TABLET 1 po qd PRN Edema FUROSEMIDE 56967856852 Active Andre Barreto MD Active PROAIR HFA 108 (90 Base) MCG/ACT INHALATION AEROSOL SOLUTION 2 puffs q4hr PRN Shortness of air/Wheezing ALBUTEROL SULFATE 70674321094 Active Andre Barreto MD Active ATORVASTATIN CALCIUM 80 MG ORAL TABLET 1 po qHS ATORVASTATIN CALCIUM 96618183168 No Longer Active Andre Barreto MD Active AMBIEN 5 MG ORAL TABLET 1 po qHS PRN Insomnia ZOLPIDEM TARTRATE 81470002099 Active Andre Barreto MD Active DETROL 2 MG ORAL TABLET 1 po qd TOLTERODINE TARTRATE 54499217669 Active Andre Barreto MD Active NITROGLYCERIN 0.4 MG SUBLINGUAL TABLET SUBLINGUAL 1 SL q5min PRN Chest pain up to 3 doses NITROGLYCERIN 29033818323 Active Andre Barreto MD Active TOPROL XL 50 MG ORAL TABLET EXTENDED RELEASE 24 HOUR 1 po qd METOPROLOL SUCCINATE 44827222722 Active Andre Barreto MD Active SYMBICORT 160-4.5 MCG/ACT INHALATION AEROSOL 2 puff BID BUDESONIDE-FORMOTEROL FUMARATE 81383914860 Active Cayla VERA Active FLUOXETINE HCL 40 MG ORAL CAPSULE 1 po qd FLUOXETINE HCL 12766206202 Active Andre Barreto MD Active BENICAR HCT 40-25 MG ORAL TABLET Take one by mouth daily OLMESARTAN MEDOXOMIL-HCTZ 09299242742 No Longer Active Andre Barreto MD Active LOSART[place] POTASSIUM-HCTZ 100-25 MG ORAL TABLET 1 po qd [place]ARTAN POTASSIUM-HCTZ 64384307196 Active Andre Barreto MD Active BETAMETHASONE DIPROPIONATE 0.05 % EXTERNAL OINTMENT Apply to affected areas BID for up to 2 weeks BETAMETHASONE DIPROPIONATE 59917333441 No Longer Active Andre Barreto MD Active ZOFRAN 4 MG ORAL TABLET 1 po q6hr PRN Nausea ONDANSETRON HCL 63853134022 No Longer Active Andre Barreto MD Active CIPRO 500 MG ORAL TABLET 1 tablet by mouth twice daily CIPROFLOXACIN HCL 58612568159 No Longer Active Andre Barreto MD Active SYMBICORT 160-4.5 MCG/ACT INHALATION AEROSOL 2 puffs inhaled bid BUDESONIDE-FORMOTEROL FUMARATE 45297061206 No Longer Active Andre Barreto MD Active DICLOFENAC SODIUM 75 MG ORAL TABLET DELAYED RELEASE 1 tablet by mouth twice daily DICLOFENAC SODIUM 86953496226 No Longer Active Andre Barreto MD Active PROZAC 40 MG ORAL CAPSULE 1 cap by mouth at bedtime FLUOXETINE HCL 83620070037 No Longer Active Andre Barreto MD Active HYDROCODONE-ACETAMINOPHEN 5-325 MG ORAL TABLET 1 po q 6hr PRN Pain HYDROCODONE-ACETAMINOPHEN 19961718060 No Longer Active Andre Barreto MD Active TRAMADOL HCL 50 MG ORAL TABLET 2 po q 6 hrs prn TRAMADOL HCL 08267525342 Active Andre Barreto MD Active HYDROCODONE-ACETAMINOPHEN 5-325 MG ORAL TABLET 1 po q 6hr PRN Pain HYDROCODONE-ACETAMINOPHEN 5-325 MG ORAL TABLET 292638 HYDROCODONE- ACETAMINOPHEN Inactive PROZAC 40 MG ORAL CAPSULE 1 cap by mouth at bedtime PROZAC 40 MG ORAL CAPSULE 319225 FLUOXETINE HCL Inactive DICLOFENAC SODIUM 75 MG ORAL TABLET DELAYED RELEASE 1 tablet by mouth twice daily DICLOFENAC SODIUM 75 MG ORAL TABLET DELAYED RELEASE 599565 DICLOFENAC SODIUM Inactive SYMBICORT 160-4.5 MCG/ACT INHALATION AEROSOL 2 puffs inhaled bid SYMBICORT 160-4.5 MCG/ACT INHALATION AEROSOL BUDESONIDE-FORMOTEROL FUMARATE Inactive ZOFRAN 4 MG ORAL TABLET 1 po q6hr PRN Nausea ZOFRAN 4 MG ORAL TABLET 024201 ONDANSETRON HCL Inactive BETAMETHASONE DIPROPIONATE 0.05 % EXTERNAL OINTMENT Apply to affected areas BID for up to 2 weeks BETAMETHASONE DIPROPIONATE 0.05 % EXTERNAL OINTMENT 383927 BETAMETHASONE DIPROPIONATE Inactive BENICAR HCT 40-25 MG ORAL TABLET Take one by mouth daily BENICAR HCT 40-25 MG ORAL TABLET 102900 OLMESARTAN MEDOXOMIL-HCTZ Inactive ATORVASTATIN CALCIUM 80 MG ORAL TABLET 1 po qHS ATORVASTATIN CALCIUM 80 MG ORAL TABLET 410451 ATORVASTATIN CALCIUM Inactive PREDNISONE 20 MG ORAL TABLET 2 daily for 3 days then 1 daily for 3 days 03/27 PREDNISONE 20 MG ORAL TABLET 262631 PREDNISONE Inactive ZITHROMAX Z-NEVAEH 250 MG ORAL TABLET 2 today and then 1 daily for 4 days 03/27 ZITHROMAX Z-NEVAEH 250 MG ORAL TABLET 126580 AZITHROMYCIN Inactive BENZONATATE 200 MG ORAL CAPSULE 1 three times a day as needed for cough 03/27 BENZONATATE 200 MG ORAL CAPSULE 372614 BENZONATATE Inactive BACTRIM DS 800-160 MG ORAL TABLET 1 tab by mouth twice daily 2017 BACTRIM DS 800-160 MG ORAL TABLET 377051 TRIMETHOPRIM- SULFAMETHOXAZOLE Inactive BACTROBAN 2 % EXTERNAL OINTMENT Apply to affected area BID 05/18 BACTROBAN 2 % EXTERNAL OINTMENT MUPIROCIN Inactive GUAIFENESIN DM 400-20 MG ORAL TABLET 1 pill by mouth twice daily, if needed for cough GUAIFENESIN DM 400-20 MG ORAL TABLET 6626450 DEXTROMETHORPHAN-GUAIFENESIN Inactive ATORVASTATIN CALCIUM 40 MG ORAL TABLET 1 po qHS ATORVASTATIN CALCIUM 40 MG ORAL TABLET 969527 ATORVASTATIN CALCIUM Inactive MECLIZINE HCL 25 MG ORAL TABLET 1 po q8hr PRN Dizziness MECLIZINE HCL 25 MG ORAL TABLET 754453 MECLIZINE HCL Inactive CIPRO 500 MG ORAL TABLET 1 tablet by mouth twice daily CIPRO 500 MG ORAL TABLET 462949 CIPROFLOXACIN HCL Inactive CEFDINIR 300 MG ORAL CAPSULE by mouth twice a day CEFDINIR 300 MG ORAL CAPSULE 531017 CEFDINIR Inactive CLINDAMYCIN HCL 300 MG ORAL CAPSULE 1 po QID x 7 days CLINDAMYCIN HCL 300 MG ORAL CAPSULE 682733 CLINDAMYCIN HCL Inactive Advance Directives Directive Description [...] Panel - Chemistry sodium, serum 139 mmol/L 957-046 3672/05/04 carbon dioxide, venous blood 28.7 mmol/L 21.0-32.0 [...] 6.2 % 4.3-6.0 cholesterol, serum 302 mg/dL 583-429 8609/05/04 triglyceride, serum, fasting 145 mg/dL 30-200 HDL cholesterol, serum 61 mg/dL 32-60 LDL cholesterol, serum 212 mg/dL 0-130 Lab Report: Lipid Panel, HGBA1C, MICROALB/CREAT W/RATIO, Comp. Metabolic ... - Chemistry cholesterol, serum 240 mg/dL 997-219 6566/12/18 triglyceride, serum, fasting 119 mg/dL 30-200 HDL cholesterol, serum 51 mg/dL 32-60 LDL cholesterol, serum 165 mg/dL 0-130 hemoglobin A1C, blood, as % of total hemoglobin 6.3 % 4.3-6.0 sodium, serum 139 mmol/L 766-185 4996/12/18 carbon dioxide, venous blood 25.9 mmol/L 21.0-32.0 [...] 0-29 Encounters Code Encounter Date Provider Facility CPT-99571 Level 4 Est. Patient 09:44:36 CDT Andre Barreto MD [facility] CPT-87241 Level 4 Est. Patient 10:07:14 CDT Andre Barreto MD [facility] CPT-30560 Level 3 Est. Patient 14:29:01 CDT Esa Jackson MD [facility] CPT-36970 Level 3 Est. Patient 14:06:16 CDT Andre Barreto MD [facility] CPT-74118 Level 3 Est. Patient 09:16:36 CDT David King APRN [facility] CPT-16214 Level 3 Est. Patient 09:24:01 DIRECTOR OF STRATEGIC COMMUNICATIONS David King APRN [facility] CPT-61429 Level 3 Est. Patient 13:01:07 DIRECTOR OF STRATEGIC COMMUNICATIONS Solitario Howe MD [facility] CPT-69101 Level 4 Est. Patient 10:26:48 DIRECTOR OF STRATEGIC COMMUNICATIONS Andre Barreto MD [facility] CPT-64480 Level 4 Est. Patient 09:45:06 CDT nAdre Barreto MD [facility] CPT-62536 Level 4 Est. Patient 11:53:39 DIRECTOR OF STRATEGIC COMMUNICATIONS Andre Barreto MD [facility] CPT-06501 Level 4 Est. Patient 14:21:31 CDT Andre Barreto MD [facility] CPT-00091 Level 4 Est. Patient 15:24:17 CDT Andre Barreto MD [facility] CPT-01542 Level 3 Est. Patient 10:36:40 CDT Andre Barreto MD [facility] CPT-19865 Level 4 Est. Patient 11:27:43 CDT Andre Barreto MD [facility] CPT-54522 Level 3 Est. Patient 10:57:31 DIRECTOR OF STRATEGIC COMMUNICATIONS Andre Barreto MD [facility] CPT-38890 Level 3 Est. Patient 13:53:13 DIRECTOR OF STRATEGIC COMMUNICATIONS Andre Barreto MD [facility] CPT-90273 Level 3 Est. Patient 09:16:12 CDT Andre Barreto MD [facility] CPT-04266 Level 3 Est. Patient 14:50:35 CDT Andre Barreto MD [facility] Procedures Code Procedure Name Date Entry Date Standard Description CPT-82547 Bone Density - XRAY USE ONLY 11:55:39 CDT CPT-79849 Postop F/U Visit 14:31:27 CDT CPT-83579 Postop F/U Visit 14:30:20 CDT CPT-58743 Sono pelvis coley bladder only - XRAY USE ONLY 15:07:39 CDT CPT-07944 First Vx - Ix admin for Medicare patients 13:56:44 DIRECTOR OF STRATEGIC COMMUNICATIONS CPT-19966 Zostavax Subcutaneous Solution Reconstituted 24164 UNT/0.65ML 12/22 13:56:44 DIRECTOR OF STRATEGIC COMMUNICATIONS CPT-G0009 Administration of Pneumococcal Vaccine 10:12:50 CDT CPT-88181 Pneumovax 23 Injection Injectable 25 MCG/0.5ML 10:12:50 CDT CPT-G0439 Subsequent Annual Wellness Exam 09:49:25 CDT CPT-36082 First Vx - Ix admin for Medicare patients 17:55:11 DIRECTOR OF STRATEGIC COMMUNICATIONS CPT-36539 Fluzone High-Dose Intramuscular Suspension 17:55:11 DIRECTOR OF STRATEGIC COMMUNICATIONS CPT-68856 Venipuncture Draw Fee 14:11:36 CDT CPT-94258 Lipid - LAB USE ONLY 14:11:36 CDT CPT-53464 CMP - LAB USE ONLY 14:11:36 CDT CPT-G0438 Initial Annual Wellness Exam 13:29:06 CDT CPT-G0009 Administration of Pneumococcal Vaccine 13:26:57 CDT CPT-11286 Prevnar 13 Intramuscular Suspension 13:26:56 CDT 08/19 CPT-88583 Bone Density - XRAY USE ONLY 09:30:16 CDT CPT-Cryo Cryotherapy 08:59:26 DIRECTOR OF STRATEGIC COMMUNICATIONS CPT-Cryo Cryotherapy 08:46:02 CDT CPT-61492 Chest 2V Frontal and Lat 14:02:13 DIRECTOR OF STRATEGIC COMMUNICATIONS
--- OUTSIDE RECORDS SUMMARY | 2018-03-16 19:15 | XMS REPORT | Clinical Summary ---
Author Author Admin, Apriva Organization [facility] Address Unknown Phone Unavailable Allergies, Adverse Reactions, Alerts Allergy Name Reaction Description Start Date Severity Status Provider SULFA Mild No Longer Active Jillina Frazell REPULPING SUPERVISOR PENICILLIN Mild No Longer Active Jillina Frazell REPULPING SUPERVISOR ZINC Mild No Longer Active Jillina Frazell REPULPING SUPERVISOR SULFA Critical No Longer Active Marcelle Yesi [...] Coronary atherosclerosis of unspecified type of vessel, [place] or graft Obstructive sleep apnea 327.23 Active [...] Elevated blood sugar 790.29 Inactive Marcelle Key [facility] Other abnormal glucose Glucose intolerance 271.3 Active [...] RELEASE 24 HOUR 1 po qd MIRABEGRON 89756870212 Active Andre Barreto MD Active TRAMADOL HCL 50 MG ORAL TABLET 2 po q 6 hrs prn TRAMADOL HCL 90052982510 No Longer Active Andre Barreto MD Active MECLIZINE HCL 25 MG ORAL TABLET 1 po q8hr PRN Dizziness MECLIZINE HCL 84491676024 No Longer Active Andre Barreto MD Active MELOXICAM 15 MG ORAL TABLET 1 po qd PRN Pain MELOXICAM 62726330677 Active Andre Barreto MD Active ATORVASTATIN CALCIUM 40 MG ORAL TABLET 1 po qHS ATORVASTATIN CALCIUM 54458991533 No Longer Active Andre Barreto MD Active ATORVASTATIN CALCIUM 20 MG ORAL TABLET 1 po MWF ATORVASTATIN CALCIUM 95972886874 Active Andre Barreto MD Active GUAIFENESIN DM 400-20 MG ORAL TABLET 1 pill by mouth twice daily, if needed for cough DEXTROMETHORPHAN-GUAIFENESIN 99457570386 No Longer Active Andre Barreto MD Active BACTROBAN 2 % EXTERNAL OINTMENT Apply to affected area BID 05/18 MUPIROCIN 63736325596 No Longer Active Moira Price MA Active CLINDAMYCIN HCL 300 MG ORAL CAPSULE 1 po QID x 7 days CLINDAMYCIN HCL 73790349787 No Longer Active Jillina Frazell REPULPING SUPERVISOR Active BACTRIM DS 800-160 MG ORAL TABLET 1 tab by mouth twice daily 2017 TRIMETHOPRIM-SULFAMETHOXAZOLE 64554585326 No Longer Active Jillina Frazell REPULPING SUPERVISOR Active CEFDINIR 300 MG ORAL CAPSULE by mouth twice a day CEFDINIR 50581495121 No Longer Active Jillina Frazell REPULPING SUPERVISOR Active BENZONATATE 200 MG ORAL CAPSULE 1 three times a day as needed for cough 03/27 BENZONATATE 18181028389 No Longer Active Luna Prabhakar Active ZITHROMAX Z-NEVAEH 250 MG ORAL TABLET 2 today and then 1 daily for 4 days 03/27 AZITHROMYCIN 51554459373 No Longer Active Luna Prabhakar Active PREDNISONE 20 MG ORAL TABLET 2 daily for 3 days then 1 daily for 3 days 03/27 PREDNISONE 24231790469 No Longer Active Luna Prabhakar Active CLOPIDOGREL BISULFATE 75 MG ORAL TABLET 1 po qd CLOPIDOGREL BISULFATE 69712535197 Active Andre Barreto MD Active FUROSEMIDE 20 MG ORAL TABLET 1 po qd PRN Edema FUROSEMIDE 21638173250 Active Andre Barreto MD Active PROAIR HFA 108 (90 Base) MCG/ACT INHALATION AEROSOL SOLUTION 2 puffs q4hr PRN Shortness of air/Wheezing ALBUTEROL SULFATE 46616663372 Active Andre Barreto MD Active ATORVASTATIN CALCIUM 80 MG ORAL TABLET 1 po qHS ATORVASTATIN CALCIUM 24092155549 No Longer Active Andre Barreto MD Active AMBIEN 5 MG ORAL TABLET 1 po qHS PRN Insomnia ZOLPIDEM TARTRATE 75515689042 Active Andre Barreto MD Active DETROL 2 MG ORAL TABLET 1 po qd TOLTERODINE TARTRATE 89861777190 Active Andre Barreto MD Active NITROGLYCERIN 0.4 MG SUBLINGUAL TABLET SUBLINGUAL 1 SL q5min PRN Chest pain up to 3 doses NITROGLYCERIN 50491403976 Active Andre Barreto MD Active TOPROL XL 50 MG ORAL TABLET EXTENDED RELEASE 24 HOUR 1 po qd METOPROLOL SUCCINATE 82653613813 Active Andre Barreto MD Active SYMBICORT 160-4.5 MCG/ACT INHALATION AEROSOL 2 puff BID BUDESONIDE-FORMOTEROL FUMARATE 19151475640 Active Andre Barreto MD Active FLUOXETINE HCL 40 MG ORAL CAPSULE 1 po qd FLUOXETINE HCL 57049560767 Active Andre Barreto MD Active BENICAR HCT 40-25 MG ORAL TABLET Take one by mouth daily OLMESARTAN MEDOXOMIL-HCTZ 06674715633 No Longer Active Andre Barreto MD Active LOSARTAN POTASSIUM-HCTZ 100-25 MG ORAL TABLET 1 po qd LOSARTAN POTASSIUM-HCTZ 85146128096 Active Andre Barreto MD Active BETAMETHASONE DIPROPIONATE 0.05 % EXTERNAL OINTMENT Apply to affected areas BID for up to 2 weeks BETAMETHASONE DIPROPIONATE 32049258004 No Longer Active Andre Barreto MD Active ZOFRAN 4 MG ORAL TABLET 1 po q6hr PRN Nausea ONDANSETRON HCL 16884664259 No Longer Active Andre Barreto MD Active CIPRO 500 MG ORAL TABLET 1 tablet by mouth twice daily CIPROFLOXACIN HCL 89933836049 No Longer Active Andre Barreto MD Active SYMBICORT 160-4.5 MCG/ACT INHALATION AEROSOL 2 puffs inhaled bid BUDESONIDE-FORMOTEROL FUMARATE 05114004436 No Longer Active Andre Barreto MD Active DICLOFENAC SODIUM 75 MG ORAL TABLET DELAYED RELEASE 1 tablet by mouth twice daily DICLOFENAC SODIUM 35601355848 No Longer Active Andre Barreto MD Active PROZAC 40 MG ORAL CAPSULE 1 cap by mouth at bedtime FLUOXETINE HCL 38781035941 No Longer Active Andre Barreto MD Active HYDROCODONE-ACETAMINOPHEN 5-325 MG ORAL TABLET 1 po q 6hr PRN Pain HYDROCODONE-ACETAMINOPHEN 24875605042 No Longer Active Andre Barreto MD Active HYDROCODONE-ACETAMINOPHEN 5-325 MG ORAL TABLET 1 po q 6hr PRN Pain HYDROCODONE-ACETAMINOPHEN 5-325 MG ORAL TABLET 821991 HYDROCODONE- ACETAMINOPHEN Inactive PROZAC 40 MG ORAL CAPSULE 1 cap by mouth at bedtime PROZAC 40 MG ORAL CAPSULE 182863 FLUOXETINE HCL Inactive DICLOFENAC SODIUM 75 MG ORAL TABLET DELAYED RELEASE 1 tablet by mouth twice daily DICLOFENAC SODIUM 75 MG ORAL TABLET DELAYED RELEASE 712036 DICLOFENAC SODIUM Inactive SYMBICORT 160-4.5 MCG/ACT INHALATION AEROSOL 2 puffs inhaled bid SYMBICORT 160-4.5 MCG/ACT INHALATION AEROSOL BUDESONIDE-FORMOTEROL FUMARATE Inactive ZOFRAN 4 MG ORAL TABLET 1 po q6hr PRN Nausea ZOFRAN 4 MG ORAL TABLET 623682 ONDANSETRON HCL Inactive BETAMETHASONE DIPROPIONATE 0.05 % EXTERNAL OINTMENT Apply to affected areas BID for up to 2 weeks BETAMETHASONE DIPROPIONATE 0.05 % EXTERNAL OINTMENT 392466 BETAMETHASONE DIPROPIONATE Inactive BENICAR HCT 40-25 MG ORAL TABLET Take one by mouth daily BENICAR HCT 40-25 MG ORAL TABLET 200632 OLMESARTAN MEDOXOMIL-HCTZ Inactive ATORVASTATIN CALCIUM 80 MG ORAL TABLET 1 po qHS ATORVASTATIN CALCIUM 80 MG ORAL TABLET 567729 ATORVASTATIN CALCIUM Inactive PREDNISONE 20 MG ORAL TABLET 2 daily for 3 days then 1 daily for 3 days 03/27 PREDNISONE 20 MG ORAL TABLET 984750 PREDNISONE Inactive ZITHROMAX Z-NEVAEH 250 MG ORAL TABLET 2 today and then 1 daily for 4 days 03/27 ZITHROMAX Z-NEVAEH 250 MG ORAL TABLET 217679 AZITHROMYCIN Inactive BENZONATATE 200 MG ORAL CAPSULE 1 three times a day as needed for cough 03/27 BENZONATATE 200 MG ORAL CAPSULE 222312 BENZONATATE Inactive BACTRIM DS 800-160 MG ORAL TABLET 1 tab by mouth twice daily 2017 BACTRIM DS 800-160 MG ORAL TABLET 338754 TRIMETHOPRIM- SULFAMETHOXAZOLE Inactive BACTROBAN 2 % EXTERNAL OINTMENT Apply to affected area BID 05/18 BACTROBAN 2 % EXTERNAL OINTMENT MUPIROCIN Inactive GUAIFENESIN DM 400-20 MG ORAL TABLET 1 pill by mouth twice daily, if needed for cough GUAIFENESIN DM 400-20 MG ORAL TABLET 0242399 DEXTROMETHORPHAN-GUAIFENESIN Inactive ATORVASTATIN CALCIUM 40 MG ORAL TABLET 1 po qHS ATORVASTATIN CALCIUM 40 MG ORAL TABLET 380687 ATORVASTATIN CALCIUM Inactive MECLIZINE HCL 25 MG ORAL TABLET 1 po q8hr PRN Dizziness MECLIZINE HCL 25 MG ORAL TABLET 035244 MECLIZINE HCL Inactive TRAMADOL HCL 50 MG ORAL TABLET 2 po q 6 hrs prn TRAMADOL HCL 50 MG ORAL TABLET 597026 TRAMADOL HCL Inactive CIPRO 500 MG ORAL TABLET 1 tablet by mouth twice daily CIPRO 500 MG ORAL TABLET 894806 CIPROFLOXACIN HCL Inactive CEFDINIR 300 MG ORAL CAPSULE by mouth twice a day CEFDINIR 300 MG ORAL CAPSULE 392099 CEFDINIR Inactive CLINDAMYCIN HCL 300 MG ORAL CAPSULE 1 po QID x 7 days CLINDAMYCIN HCL 300 MG ORAL CAPSULE 406572 CLINDAMYCIN HCL Inactive Advance Directives Directive Description [...] Panel - Chemistry sodium, serum 139 mmol/L 259-004 8239/05/04 carbon dioxide, venous blood 28.7 mmol/L 21.0-32.0 [...] 6.2 % 4.3-6.0 cholesterol, serum 302 mg/dL 921-087 9083/05/04 triglyceride, serum, fasting 145 mg/dL 30-200 HDL cholesterol, serum 61 mg/dL 32-60 LDL cholesterol, serum 212 mg/dL 0-130 Lab Report: Lipid Panel, HGBA1C, MICROALB/CREAT W/RATIO, Comp. Metabolic ... - Chemistry cholesterol, serum 240 mg/dL 990-714 1055/12/18 triglyceride, serum, fasting 119 mg/dL 30-200 HDL cholesterol, serum 51 mg/dL 32-60 LDL cholesterol, serum 165 mg/dL 0-130 hemoglobin A1C, blood, as % of total hemoglobin 6.3 % 4.3-6.0 sodium, serum 139 mmol/L 633-448 7945/12/18 carbon dioxide, venous blood 25.9 mmol/L 21.0-32.0 [...] 0-29 Encounters Code Encounter Date Provider Facility CPT-34266 Level 4 Est. Patient 10:54:33 BALER Andre Barreto MD [facility] CPT-45414 Level 4 Est. Patient 09:44:36 CDT Andre Barreto MD [facility] CPT-53849 Level 4 Est. Patient 10:07:14 CDT Andre Barreto MD [facility] CPT-54921 Level 3 Est. Patient 14:29:01 CDT Esa Jackson MD [facility] CPT-04205 Level 3 Est. Patient 14:06:16 CDT Andre Barreto MD [facility] CPT-23431 Level 3 Est. Patient 09:16:36 CDT [facility] CPT-01216 Level 3 Est. Patient 09:24:01 BALER [facility] CPT-87098 Level 3 Est. Patient 13:01:07 BALER Solitario Howe MD [facility] CPT-41335 Level 4 Est. Patient 10:26:48 BALER Andre Barreto MD [facility] CPT-67812 Level 4 Est. Patient 09:45:06 CDT Andre Barreto MD [facility] CPT-36769 Level 4 Est. Patient 11:53:39 BALER Andre Barreto MD [facility] CPT-94471 Level 4 Est. Patient 14:21:31 CDT Andre Barreto MD [facility] CPT-90647 Level 4 Est. Patient 15:24:17 CDT Andre Barreto MD [facility] CPT-26152 Level 3 Est. Patient 10:36:40 CDT Andre Barreto MD [facility] CPT-70629 Level 4 Est. Patient 11:27:43 CDT Andre Barreto MD [facility] CPT-67303 Level 3 Est. Patient 10:57:31 BALER Andre Barreto MD [facility] CPT-02859 Level 3 Est. Patient 13:53:13 BALER Andre Barreto MD [facility] CPT-39388 Level 3 Est. Patient 09:16:12 CDT Andre Barreto MD [facility] CPT-38285 Level 3 Est. Patient 14:50:35 CDT Andre Barreto MD [facility] Procedures Code Procedure Name Date Entry Date Standard Description CPT-G0439 Subsequent Annual Wellness Exam 10:54:34 BALER CPT-95055 Bone Density - XRAY USE ONLY 11:55:39 CDT CPT-69415 Postop F/U Visit 14:31:27 CDT CPT-48776 Postop F/U Visit 14:30:20 CDT CPT-82866 Sono pelvis coley bladder only - XRAY USE ONLY 15:07:39 CDT CPT-54211 First Vx - Ix admin for Medicare patients 13:56:44 BALER CPT-46711 Zostavax Subcutaneous Solution Reconstituted 46301 UNT/0.65ML 12/22 13:56:44 BALER CPT-G0009 Administration of Pneumococcal Vaccine 10:12:50 CDT CPT-79820 Pneumovax 23 Injection Injectable 25 MCG/0.5ML 10:12:50 CDT CPT-G0439 Subsequent Annual Wellness Exam 09:49:25 CDT CPT-58199 First Vx - Ix admin for Medicare patients 17:55:11 BALER CPT-01951 Fluzone High-Dose Intramuscular Suspension 17:55:11 BALER CPT-69025 Venipuncture Draw Fee 14:11:36 CDT CPT-99018 Lipid - LAB USE ONLY 14:11:36 CDT CPT-83473 CMP - LAB USE ONLY 14:11:36 CDT CPT-G0438 Initial Annual Wellness Exam 13:29:06 CDT CPT-G0009 Administration of Pneumococcal Vaccine 13:26:57 CDT CPT-60338 Prevnar 13 Intramuscular Suspension 13:26:56 CDT 08/19 CPT-29874 Bone Density - XRAY USE ONLY 09:30:16 CDT CPT-Cryo Cryotherapy 08:59:26 BALER CPT-Cryo Cryotherapy 08:46:02 CDT CPT-86508 Chest 2V Frontal and Lat 14:02:13 BALER
--- OUTSIDE RECORDS SUMMARY | 2018-03-16 19:16 | XMS REPORT | Clinical Summary ---
Author Author Admin, EDUARDO Organization [facility] Address Unknown Phone Unavailable Allergies, Adverse Reactions, Alerts Allergy Name Reaction Description Start Date Severity Status Provider SULFA Mild No Longer Active Jillina Frazell ENGINE SERVICE REPAIRER PENICILLIN Mild No Longer Active Jillina Frazell ENGINE SERVICE REPAIRER ZINC Mild No Longer Active Jillina Frazell ENGINE SERVICE REPAIRER SULFA Critical No Longer Active Marcelle Yesi [...] Coronary atherosclerosis of unspecified type of vessel, [place] or graft Obstructive sleep apnea 327.23 Active [...] DYSPNEA ICD-786.05 Inactive Andre Barreto MD 2012 Seborrheic keratosis ICD-702.19 Inactive Andre Barreto MD Fever ICD-780.60 Inactive Andre Barreto MD 05/23 Actinic keratosis ICD-702.0 Inactive Andre Barreto MD Dyshidrotic eczema, hands [...] Abscess, skin ICD-682.9 Inactive Andre Barreto MD Skin tag ICD-701.9 Inactive Andre Barreto MD 2014 Weakness, muscle ICD-728.87 Inactive Andre Barreto MD Medication List Medication Instructions Start Date Stop Date Generic Name NDC Status Provider Patient Instruction MECLIZINE HCL 25 MG ORAL TABLET 1 po q8hr PRN Dizziness MECLIZINE HCL 42962584150 No Longer Active Andre Barreto MD Active MELOXICAM 15 MG ORAL TABLET 1 po qd PRN Pain MELOXICAM 06210744659 Active Andre Barreto MD Active ATORVASTATIN CALCIUM 40 MG ORAL TABLET 1 po qHS ATORVASTATIN CALCIUM 82316149945 No Longer Active Andre Barreto MD Active ATORVASTATIN CALCIUM 20 MG ORAL TABLET 1 po MWF ATORVASTATIN CALCIUM 66309669680 Active Andre Barreto MD Active GUAIFENESIN DM 400-20 MG ORAL TABLET 1 pill by mouth twice daily, if needed for cough DEXTROMETHORPHAN-GUAIFENESIN 92809063850 No Longer Active Andre Barreto MD Active BACTROBAN 2 % EXTERNAL OINTMENT Apply to affected area BID 05/18 MUPIROCIN 50625185159 No Longer Active Moira Price MA Active CLINDAMYCIN HCL 300 MG ORAL CAPSULE 1 po QID x 7 days CLINDAMYCIN HCL 87341731654 No Longer Active Jillina Frazell ENGINE SERVICE REPAIRER Active BACTRIM DS 800-160 MG ORAL TABLET 1 tab by mouth twice daily 2017 TRIMETHOPRIM-SULFAMETHOXAZOLE 77685028224 No Longer Active Jillina Frazell ENGINE SERVICE REPAIRER Active CEFDINIR 300 MG ORAL CAPSULE by mouth twice a day CEFDINIR 27698233902 No Longer Active Jillina Frazell ENGINE SERVICE REPAIRER Active BENZONATATE 200 MG ORAL CAPSULE 1 three times a day as needed for cough 03/27 BENZONATATE 79041798744 No Longer Active Luna Prabhakar Active ZITHROMAX Z-NEVAEH 250 MG ORAL TABLET 2 today and then 1 daily for 4 days 03/27 AZITHROMYCIN 01059674437 No Longer Active Luna Prabhakar Active PREDNISONE 20 MG ORAL TABLET 2 daily for 3 days then 1 daily for 3 days 03/27 PREDNISONE 11579739777 No Longer Active Luna Prabhakar Active CLOPIDOGREL BISULFATE 75 MG ORAL TABLET 1 po qd CLOPIDOGREL BISULFATE 40762645205 Active Andre Barreto MD Active FUROSEMIDE 20 MG ORAL TABLET 1 po qd PRN Edema FUROSEMIDE 75807580415 Active Andre Barreto MD Active PROAIR HFA 108 (90 Base) MCG/ACT INHALATION AEROSOL SOLUTION 2 puffs q4hr PRN Shortness of air/Wheezing ALBUTEROL SULFATE 87095702520 Active Andre Barreto MD Active ATORVASTATIN CALCIUM 80 MG ORAL TABLET 1 po qHS ATORVASTATIN CALCIUM 27288954433 No Longer Active Andre Barreto MD Active AMBIEN 5 MG ORAL TABLET 1 po qHS PRN Insomnia ZOLPIDEM TARTRATE 89842348439 Active Andre Barreto MD Active DETROL 2 MG ORAL TABLET 1 po qd TOLTERODINE TARTRATE 83731780111 Active Andre Barreto MD Active NITROGLYCERIN 0.4 MG SUBLINGUAL TABLET SUBLINGUAL 1 SL q5min PRN Chest pain up to 3 doses NITROGLYCERIN 09885795758 Active Andre Barreto MD Active TOPROL XL 50 MG ORAL TABLET EXTENDED RELEASE 24 HOUR 1 po qd METOPROLOL SUCCINATE 57451933594 Active Andre Barreto MD Active SYMBICORT 160-4.5 MCG/ACT INHALATION AEROSOL 2 puff BID BUDESONIDE-FORMOTEROL FUMARATE 17071207961 Active Cayla VERA Active FLUOXETINE HCL 40 MG ORAL CAPSULE 1 po qd FLUOXETINE HCL 76761065355 Active Andre Barreto MD Active BENICAR HCT 40-25 MG ORAL TABLET Take one by mouth daily OLMESARTAN MEDOXOMIL-HCTZ 34319173018 No Longer Active Adnre Barreto MD Active LOSARTAN POTASSIUM-HCTZ 100-25 MG ORAL TABLET 1 po qd LOSARTAN POTASSIUM-HCTZ 44359897711 Active Andre Barreto MD Active BETAMETHASONE DIPROPIONATE 0.05 % EXTERNAL OINTMENT Apply to affected areas BID for up to 2 weeks BETAMETHASONE DIPROPIONATE 29767649131 No Longer Active Andre Barreto MD Active ZOFRAN 4 MG ORAL TABLET 1 po q6hr PRN Nausea ONDANSETRON HCL 18988917031 No Longer Active Andre Barreto MD Active CIPRO 500 MG ORAL TABLET 1 tablet by mouth twice daily CIPROFLOXACIN HCL 50821783740 No Longer Active Andre Barreto MD Active SYMBICORT 160-4.5 MCG/ACT INHALATION AEROSOL 2 puffs inhaled bid BUDESONIDE-FORMOTEROL FUMARATE 83174719712 No Longer Active Andre Barreto MD Active DICLOFENAC SODIUM 75 MG ORAL TABLET DELAYED RELEASE 1 tablet by mouth twice daily DICLOFENAC SODIUM 67506374411 No Longer Active Andre Barreto MD Active PROZAC 40 MG ORAL CAPSULE 1 cap by mouth at bedtime FLUOXETINE HCL 75766044804 No Longer Active Andre Barreto MD Active HYDROCODONE-ACETAMINOPHEN 5-325 MG ORAL TABLET 1 po q 6hr PRN Pain HYDROCODONE-ACETAMINOPHEN 64284542197 No Longer Active Andre Barreto MD Active TRAMADOL HCL 50 MG ORAL TABLET 2 po q 6 hrs prn TRAMADOL HCL 39824459037 Active Andre Barreto MD Active HYDROCODONE-ACETAMINOPHEN 5-325 MG ORAL TABLET 1 po q 6hr PRN Pain HYDROCODONE-ACETAMINOPHEN 5-325 MG ORAL TABLET 066009 HYDROCODONE- ACETAMINOPHEN Inactive PROZAC 40 MG ORAL CAPSULE 1 cap by mouth at bedtime PROZAC 40 MG ORAL CAPSULE 162339 FLUOXETINE HCL Inactive DICLOFENAC SODIUM 75 MG ORAL TABLET DELAYED RELEASE 1 tablet by mouth twice daily DICLOFENAC SODIUM 75 MG ORAL TABLET DELAYED RELEASE 350198 DICLOFENAC SODIUM Inactive SYMBICORT 160-4.5 MCG/ACT INHALATION AEROSOL 2 puffs inhaled bid SYMBICORT 160-4.5 MCG/ACT INHALATION AEROSOL BUDESONIDE-FORMOTEROL FUMARATE Inactive ZOFRAN 4 MG ORAL TABLET 1 po q6hr PRN Nausea ZOFRAN 4 MG ORAL TABLET 299883 ONDANSETRON HCL Inactive BETAMETHASONE DIPROPIONATE 0.05 % EXTERNAL OINTMENT Apply to affected areas BID for up to 2 weeks BETAMETHASONE DIPROPIONATE 0.05 % EXTERNAL OINTMENT 863217 BETAMETHASONE DIPROPIONATE Inactive BENICAR HCT 40-25 MG ORAL TABLET Take one by mouth daily BENICAR HCT 40-25 MG ORAL TABLET 960422 OLMESARTAN MEDOXOMIL-HCTZ Inactive ATORVASTATIN CALCIUM 80 MG ORAL TABLET 1 po qHS ATORVASTATIN CALCIUM 80 MG ORAL TABLET 020686 ATORVASTATIN CALCIUM Inactive PREDNISONE 20 MG ORAL TABLET 2 daily for 3 days then 1 daily for 3 days 03/27 PREDNISONE 20 MG ORAL TABLET 616296 PREDNISONE Inactive ZITHROMAX Z-NEVAEH 250 MG ORAL TABLET 2 today and then 1 daily for 4 days 03/27 ZITHROMAX Z-NEVAEH 250 MG ORAL TABLET 097098 AZITHROMYCIN Inactive BENZONATATE 200 MG ORAL CAPSULE 1 three times a day as needed for cough 03/27 BENZONATATE 200 MG ORAL CAPSULE 519078 BENZONATATE Inactive BACTRIM DS 800-160 MG ORAL TABLET 1 tab by mouth twice daily 2017 BACTRIM DS 800-160 MG ORAL TABLET 056718 TRIMETHOPRIM- SULFAMETHOXAZOLE Inactive BACTROBAN 2 % EXTERNAL OINTMENT Apply to affected area BID 05/18 BACTROBAN 2 % EXTERNAL OINTMENT MUPIROCIN Inactive GUAIFENESIN DM 400-20 MG ORAL TABLET 1 pill by mouth twice daily, if needed for cough GUAIFENESIN DM 400-20 MG ORAL TABLET 6866536 DEXTROMETHORPHAN-GUAIFENESIN Inactive ATORVASTATIN CALCIUM 40 MG ORAL TABLET 1 po qHS ATORVASTATIN CALCIUM 40 MG ORAL TABLET 090624 ATORVASTATIN CALCIUM Inactive MECLIZINE HCL 25 MG ORAL TABLET 1 po q8hr PRN Dizziness MECLIZINE HCL 25 MG ORAL TABLET 981289 MECLIZINE HCL Inactive CIPRO 500 MG ORAL TABLET 1 tablet by mouth twice daily CIPRO 500 MG ORAL TABLET 209533 CIPROFLOXACIN HCL Inactive CEFDINIR 300 MG ORAL CAPSULE by mouth twice a day CEFDINIR 300 MG ORAL CAPSULE 242132 CEFDINIR Inactive CLINDAMYCIN HCL 300 MG ORAL CAPSULE 1 po QID x 7 days CLINDAMYCIN HCL 300 MG ORAL CAPSULE 733995 CLINDAMYCIN HCL Inactive Advance Directives Directive Description [...] Panel - Chemistry sodium, serum 139 mmol/L 468-035 6159/05/04 carbon dioxide, venous blood 28.7 mmol/L 21.0-32.0 [...] 6.2 % 4.3-6.0 cholesterol, serum 302 mg/dL 883-693 0509/05/04 triglyceride, serum, fasting 145 mg/dL 30-200 HDL cholesterol, serum 61 mg/dL 32-60 LDL cholesterol, serum 212 mg/dL 0-130 Lab Report: Lipid Panel, HGBA1C, MICROALB/CREAT W/RATIO, Comp. Metabolic ... - Chemistry cholesterol, serum 240 mg/dL 874-229 7542/12/18 triglyceride, serum, fasting 119 mg/dL 30-200 HDL cholesterol, serum 51 mg/dL 32-60 LDL cholesterol, serum 165 mg/dL 0-130 hemoglobin A1C, blood, as % of total hemoglobin 6.3 % 4.3-6.0 sodium, serum 139 mmol/L 292-403 2710/12/18 carbon dioxide, venous blood 25.9 mmol/L 21.0-32.0 [...] 0-29 Encounters Code Encounter Date Provider Facility CPT-37681 Level 4 Est. Patient 09:44:36 CDT Andre Barreto MD [facility] CPT-80080 Level 4 Est. Patient 10:07:14 CDT Andre Barreto MD [facility] CPT-90763 Level 3 Est. Patient 14:29:01 CDT Esa Jackson MD [facility] CPT-85728 Level 3 Est. Patient 14:06:16 CDT Andre Barreto MD [facility] CPT-32324 Level 3 Est. Patient 09:16:36 CDT David King APRN [facility] CPT-36340 Level 3 Est. Patient 09:24:01 RADAR TECHNICIAN David King APRN [facility] CPT-16327 Level 3 Est. Patient 13:01:07 RADAR TECHNICIAN Solitario Howe MD [facility] CPT-84602 Level 4 Est. Patient 10:26:48 RADAR TECHNICIAN Andre Barreto MD [facility] CPT-74704 Level 4 Est. Patient 09:45:06 CDT Andre Barreto MD [facility] CPT-25509 Level 4 Est. Patient 11:53:39 RADAR TECHNICIAN Andre Barreto MD [facility] CPT-17988 Level 4 Est. Patient 14:21:31 CDT Andre Barreto MD [facility] CPT-15958 Level 4 Est. Patient 15:24:17 CDT Andre Barreto MD [facility] CPT-81856 Level 3 Est. Patient 10:36:40 CDT Andre Barreto MD [facility] CPT-20982 Level 4 Est. Patient 11:27:43 CDT Andre Barreto MD [facility] CPT-17920 Level 3 Est. Patient 10:57:31 RADAR TECHNICIAN Andre Barreto MD [facility] CPT-90378 Level 3 Est. Patient 13:53:13 RADAR TECHNICIAN Andre Barreto MD [facility] CPT-02118 Level 3 Est. Patient 09:16:12 CDT Andre Barreto MD [facility] CPT-50347 Level 3 Est. Patient 14:50:35 CDT Andre Brareto MD [facility] Procedures Code Procedure Name Date Entry Date Standard Description CPT-77326 Bone Density - XRAY USE ONLY 11:55:39 CDT CPT-52064 Postop F/U Visit 14:31:27 CDT CPT-93111 Postop F/U Visit 14:30:20 CDT CPT-64113 Sono pelvis coley bladder only - XRAY USE ONLY 15:07:39 CDT CPT-55685 First Vx - Ix admin for Medicare patients 13:56:44 RADAR TECHNICIAN CPT-89383 Zostavax Subcutaneous Solution Reconstituted 24287 UNT/0.65ML 12/22 13:56:44 RADAR TECHNICIAN CPT-G0009 Administration of Pneumococcal Vaccine 10:12:50 CDT CPT-24737 Pneumovax 23 Injection Injectable 25 MCG/0.5ML 10:12:50 CDT CPT-G0439 Subsequent Annual Wellness Exam 09:49:25 CDT CPT-05290 First Vx - Ix admin for Medicare patients 17:55:11 RADAR TECHNICIAN CPT-07047 Fluzone High-Dose Intramuscular Suspension 17:55:11 RADAR TECHNICIAN CPT-32960 Venipuncture Draw Fee 14:11:36 CDT CPT-10433 Lipid - LAB USE ONLY 14:11:36 CDT CPT-89961 CMP - LAB USE ONLY 14:11:36 CDT CPT-G0438 Initial Annual Wellness Exam 13:29:06 CDT CPT-G0009 Administration of Pneumococcal Vaccine 13:26:57 CDT CPT-47855 Prevnar 13 Intramuscular Suspension 13:26:56 CDT 08/19 CPT-05566 Bone Density - XRAY USE ONLY 09:30:16 CDT CPT-Cryo Cryotherapy 08:59:26 RADAR TECHNICIAN CPT-Cryo Cryotherapy 08:46:02 CDT CPT-29648 Chest 2V Frontal and Lat 14:02:13 RADAR TECHNICIAN
--- OUTSIDE RECORDS SUMMARY | 2018-03-16 19:17 | XMS REPORT | Clinical Summary ---
Author Author Admin, EDUARDO Organization [employer] Address Unknown Phone Unavailable Allergies, Adverse Reactions, Alerts Allergy Name Reaction Description Start Date Severity Status Provider SULFA Mild No Longer Active Jillina Frazell NEUROPSYCHOLOGY MEDICAL CONSULTANT PENICILLIN Mild No Longer Active Jillina Frazell NEUROPSYCHOLOGY MEDICAL CONSULTANT ZINC Mild No Longer Active Jillina Frazell NEUROPSYCHOLOGY MEDICAL CONSULTANT SULFA Critical No Longer Active Marcelle Yesi [...] Coronary atherosclerosis of unspecified type of vessel, jackson or graft Obstructive sleep apnea 327.23 Active [...] 1 po q8hr PRN Dizziness MECLIZINE HCL 68096094926 No Longer Active Andre Barreto MD Active MELOXICAM 15 MG ORAL TABLET 1 po qd PRN Pain MELOXICAM 22342198979 Active Andre Barreto MD Active ATORVASTATIN CALCIUM 40 MG ORAL TABLET 1 po qHS ATORVASTATIN CALCIUM 07756056706 No Longer Active Andre Barreto MD Active ATORVASTATIN CALCIUM 20 MG ORAL TABLET 1 po MWF ATORVASTATIN CALCIUM 33945166424 Active Andre Barreto MD Active GUAIFENESIN DM 400-20 MG ORAL TABLET 1 pill by mouth twice daily, if needed for cough DEXTROMETHORPHAN-GUAIFENESIN 27760882425 No Longer Active Andre Barreto MD Active BACTROBAN 2 % EXTERNAL OINTMENT Apply to affected area BID 05/18 MUPIROCIN 69177634006 No Longer Active Moira Price MA Active CLINDAMYCIN HCL 300 MG ORAL CAPSULE 1 po QID x 7 days CLINDAMYCIN HCL 52912084224 No Longer Active Jillina Frazell NEUROPSYCHOLOGY MEDICAL CONSULTANT Active BACTRIM DS 800-160 MG ORAL TABLET 1 tab by mouth twice daily 2017 TRIMETHOPRIM-SULFAMETHOXAZOLE 29453123330 No Longer Active Jillina Frazell NEUROPSYCHOLOGY MEDICAL CONSULTANT Active CEFDINIR 300 MG ORAL CAPSULE by mouth twice a day CEFDINIR 95483535566 No Longer Active Jillina Frazell NEUROPSYCHOLOGY MEDICAL CONSULTANT Active BENZONATATE 200 MG ORAL CAPSULE 1 three times a day as needed for cough 03/27 BENZONATATE 61989366440 No Longer Active Luna Prabhakar Active ZITHROMAX Z-NEVAEH 250 MG ORAL TABLET 2 today and then 1 daily for 4 days 03/27 AZITHROMYCIN 37775604256 No Longer Active Luna Prabhakar Active PREDNISONE 20 MG ORAL TABLET 2 daily for 3 days then 1 daily for 3 days 03/27 PREDNISONE 40775171752 No Longer Active Luna Prabhakar Active CLOPIDOGREL BISULFATE 75 MG ORAL TABLET 1 po qd CLOPIDOGREL BISULFATE 89934563809 Active Andre Barreto MD Active FUROSEMIDE 20 MG ORAL TABLET 1 po qd PRN Edema FUROSEMIDE 55433589093 Active Andre Barreto MD Active PROAIR HFA 108 (90 Base) MCG/ACT INHALATION AEROSOL SOLUTION 2 puffs q4hr PRN Shortness of air/Wheezing ALBUTEROL SULFATE 86310706114 Active Andre Barreto MD Active ATORVASTATIN CALCIUM 80 MG ORAL TABLET 1 po qHS ATORVASTATIN CALCIUM 94947380004 No Longer Active Andre Barreto MD Active AMBIEN 5 MG ORAL TABLET 1 po qHS PRN Insomnia ZOLPIDEM TARTRATE 94187863728 Active Andre Barreto MD Active DETROL 2 MG ORAL TABLET 1 po qd TOLTERODINE TARTRATE 91084798000 Active Andre Barreto MD Active NITROGLYCERIN 0.4 MG SUBLINGUAL TABLET SUBLINGUAL 1 SL q5min PRN Chest pain up to 3 doses NITROGLYCERIN 51559358508 Active Andre Barreto MD Active TOPROL XL 50 MG ORAL TABLET EXTENDED RELEASE 24 HOUR 1 po qd METOPROLOL SUCCINATE 25384919240 Active Andre Barreto MD Active SYMBICORT 160-4.5 MCG/ACT INHALATION AEROSOL 2 puff BID BUDESONIDE-FORMOTEROL FUMARATE 98455447096 Active Cayla VERA Active FLUOXETINE HCL 40 MG ORAL CAPSULE 1 po qd FLUOXETINE HCL 75906937530 Active Andre Barreto MD Active BENICAR HCT 40-25 MG ORAL TABLET Take one by mouth daily OLMESARTAN MEDOXOMIL-HCTZ 17541887010 No Longer Active Andre Barreto MD Active LOSARTAN POTASSIUM-HCTZ 100-25 MG ORAL TABLET 1 po qd LOSARTAN POTASSIUM-HCTZ 70299877386 Active Andre Barreto MD Active BETAMETHASONE DIPROPIONATE 0.05 % EXTERNAL OINTMENT Apply to affected areas BID for up to 2 weeks BETAMETHASONE DIPROPIONATE 37565107582 No Longer Active Andre Barreto MD Active ZOFRAN 4 MG ORAL TABLET 1 po q6hr PRN Nausea ONDANSETRON HCL 19280451385 No Longer Active Andre Barreto MD Active CIPRO 500 MG ORAL TABLET 1 tablet by mouth twice daily CIPROFLOXACIN HCL 84206400170 No Longer Active Andre Barreto MD Active SYMBICORT 160-4.5 MCG/ACT INHALATION AEROSOL 2 puffs inhaled bid BUDESONIDE-FORMOTEROL FUMARATE 68643419264 No Longer Active Andre Barreto MD Active DICLOFENAC SODIUM 75 MG ORAL TABLET DELAYED RELEASE 1 tablet by mouth twice daily DICLOFENAC SODIUM 96587525257 No Longer Active Andre Barreto MD Active PROZAC 40 MG ORAL CAPSULE 1 cap by mouth at bedtime FLUOXETINE HCL 90186844316 No Longer Active Andre Barreto MD Active HYDROCODONE-ACETAMINOPHEN 5-325 MG ORAL TABLET 1 po q 6hr PRN Pain HYDROCODONE-ACETAMINOPHEN 36133385496 No Longer Active Andre Barreto MD Active TRAMADOL HCL 50 MG ORAL TABLET 2 po q 6 hrs prn TRAMADOL HCL 31751755426 Active Andre Barreto MD Active HYDROCODONE-ACETAMINOPHEN 5-325 MG ORAL TABLET 1 po q 6hr PRN Pain HYDROCODONE-ACETAMINOPHEN 5-325 MG ORAL TABLET 381383 HYDROCODONE- ACETAMINOPHEN Inactive PROZAC 40 MG ORAL CAPSULE 1 cap by mouth at bedtime PROZAC 40 MG ORAL CAPSULE 259266 FLUOXETINE HCL Inactive DICLOFENAC SODIUM 75 MG ORAL TABLET DELAYED RELEASE 1 tablet by mouth twice daily DICLOFENAC SODIUM 75 MG ORAL TABLET DELAYED RELEASE 361532 DICLOFENAC SODIUM Inactive SYMBICORT 160-4.5 MCG/ACT INHALATION AEROSOL 2 puffs inhaled bid SYMBICORT 160-4.5 MCG/ACT INHALATION AEROSOL BUDESONIDE-FORMOTEROL FUMARATE Inactive ZOFRAN 4 MG ORAL TABLET 1 po q6hr PRN Nausea ZOFRAN 4 MG ORAL TABLET 760264 ONDANSETRON HCL Inactive BETAMETHASONE DIPROPIONATE 0.05 % EXTERNAL OINTMENT Apply to affected areas BID for up to 2 weeks BETAMETHASONE DIPROPIONATE 0.05 % EXTERNAL OINTMENT 868080 BETAMETHASONE DIPROPIONATE Inactive BENICAR HCT 40-25 MG ORAL TABLET Take one by mouth daily BENICAR HCT 40-25 MG ORAL TABLET 790225 OLMESARTAN MEDOXOMIL-HCTZ Inactive ATORVASTATIN CALCIUM 80 MG ORAL TABLET 1 po qHS ATORVASTATIN CALCIUM 80 MG ORAL TABLET 512613 ATORVASTATIN CALCIUM Inactive PREDNISONE 20 MG ORAL TABLET 2 daily for 3 days then 1 daily for 3 days 03/27 PREDNISONE 20 MG ORAL TABLET 851991 PREDNISONE Inactive ZITHROMAX Z-NEVAEH 250 MG ORAL TABLET 2 today and then 1 daily for 4 days 03/27 ZITHROMAX Z-NEVAEH 250 MG ORAL TABLET 323679 AZITHROMYCIN Inactive BENZONATATE 200 MG ORAL CAPSULE 1 three times a day as needed for cough 03/27 BENZONATATE 200 MG ORAL CAPSULE 766017 BENZONATATE Inactive BACTRIM DS 800-160 MG ORAL TABLET 1 tab by mouth twice daily 2017 BACTRIM DS 800-160 MG ORAL TABLET 076551 TRIMETHOPRIM- SULFAMETHOXAZOLE Inactive BACTROBAN 2 % EXTERNAL OINTMENT Apply to affected area BID 05/18 BACTROBAN 2 % EXTERNAL OINTMENT MUPIROCIN Inactive GUAIFENESIN DM 400-20 MG ORAL TABLET 1 pill by mouth twice daily, if needed for cough GUAIFENESIN DM 400-20 MG ORAL TABLET 5577369 DEXTROMETHORPHAN-GUAIFENESIN Inactive ATORVASTATIN CALCIUM 40 MG ORAL TABLET 1 po qHS ATORVASTATIN CALCIUM 40 MG ORAL TABLET 769047 ATORVASTATIN CALCIUM Inactive MECLIZINE HCL 25 MG ORAL TABLET 1 po q8hr PRN Dizziness MECLIZINE HCL 25 MG ORAL TABLET 376040 MECLIZINE HCL Inactive CIPRO 500 MG ORAL TABLET 1 tablet by mouth twice daily CIPRO 500 MG ORAL TABLET 420285 CIPROFLOXACIN HCL Inactive CEFDINIR 300 MG ORAL CAPSULE by mouth twice a day CEFDINIR 300 MG ORAL CAPSULE 740385 CEFDINIR Inactive CLINDAMYCIN HCL 300 MG ORAL CAPSULE 1 po QID x 7 days CLINDAMYCIN HCL 300 MG ORAL CAPSULE 923708 CLINDAMYCIN HCL Inactive Advance Directives Directive Description [...] 281.5 [lb_av] Weight Measured blood pressure, diastolic 82 mm[Hg] BP pat blood pressure, systolic 139 mm[Hg] BP sys height E&M 63 [in_us] Bdy height pulse rate E&M 69 /min Heart rate temperature E&M 99.4 [degF] Body temperature weight E&M 275 [lb_av] Weight Measured Diagnostic Results Date Name Value Unit Range Description Lab Report: CBC - Hematology mean corpuscular hemoglobin, RBC 31.3 pg 27.0-31.2 mean corpuscular hemoglobin concentration, RBC 32.4 G/DL % 31.8- 35.4 red blood cell distribution width 13.1 % 11.6-14.8 platelet count 247 10^3/MM^3 10*3/mm3 860-668 0603/07/03 leukocyte count, blood 8.1 10^3/MM^3 10*3/mm3 4.6-10.2 erythrocyte (RBC) count 3.96 10^6/MM^3 10*6/mm3 3.80-5.80 hemoglobin, blood 12.4 g/dL 12.0-16.0 hematocrit, blood 38.3 % 37.0-47.0 mean corpuscular volume, RBC 97 fL 80-97 Lab Report: Comp. Metabolic Panel - Chemistry urea nitrogen, blood 19 mg/dL 7-18 creatinine, serum 0.99 mg/dL 0.60-1.30 alanine aminotransferase (SGPT), serum 40 U/L 12-78 aspartate aminotransferase (SGOT), serum 23 U/L 15-37 calcium, serum 9.4 mg/dL 8.5-10.1 bilirubin, serum, total 0.50 mg/dL 0.00-1.00 blood glucose 120 mg/dL 65-95 chloride, serum 102 mmol/L 98-107 potassium, serum 4.2 mmol/L 3.5-5.2 carbon dioxide, venous blood 28.7 mmol/L 21.0-32.0 sodium, serum 139 mmol/L 136-145 Lab Report: HGBA1C, CBC - Chemistry hemoglobin A1C, blood, as % of total hemoglobin 6.3 % 4.3-6.0 Lab Report: HGBA1C, CBC - Hematology leukocyte count, blood 8.0 10^3/MM^3 10*3/mm3 4.6-10.2 erythrocyte (RBC) count 4.40 10^6/MM^3 10*6/mm3 3.80-5.80 hemoglobin, blood 13.4 g/dL 12.0-16.0 hematocrit, blood 41.5 % 37.0-47.0 mean corpuscular volume, RBC 94 fL 80-97 mean corpuscular hemoglobin, RBC 30.3 pg 27.0-31.2 mean corpuscular hemoglobin concentration, RBC 32.2 G/DL % 31.8- 35.4 red blood cell distribution width 15.5 % 11.6-14.8 platelet count 245 10^3/MM^3 10*3/mm3 142-424 Lab Report: HGBA1C, Lipid Panel - Chemistry hemoglobin A1C, blood, as % of total hemoglobin 6.2 % 4.3-6.0 cholesterol, serum 302 mg/dL 643-513 9324/05/04 triglyceride, serum, fasting 145 mg/dL 30-200 HDL cholesterol, serum 61 mg/dL 32-60 LDL cholesterol, serum 212 mg/dL 0-130 Lab Report: Lipid Panel, Comp. Metabolic Panel - Chemistry cholesterol, serum 275 mg/dL 143-557 4524/11/07 triglyceride, serum, fasting 166 mg/dL 30-200 HDL cholesterol, serum 62 mg/dL 32-60 LDL cholesterol, serum 180 mg/dL 0-130 sodium, serum 141 mmol/L 731-453 7017/11/07 carbon dioxide, venous blood 26.3 mmol/L 21.0-32.0 potassium, serum 4.0 mmol/L 3.5-5.2 chloride, serum 102 mmol/L 98-107 blood glucose 111 mg/dL 65-110 urea nitrogen, blood 24 mg/dL 7-18 creatinine, serum 1.15 mg/dL 0.60-1.30 alanine aminotransferase (SGPT), serum 52 U/L 12-78 aspartate aminotransferase (SGOT), serum 28 U/L 15-37 calcium, serum 9.2 mg/dL 8.5-10.1 bilirubin, serum, total 0.50 mg/dL 0.00-1.00 Lab Report: MICROALB/CREAT W/RATIO - Chemistry albumin/creatinine ratio, urine <30 mg/g Normal mg/g mg/g{creat} 0-29 Lab Report: MICROALB/CREAT W/RATIO - Lab microalbumin, urine 10 mg/L 0-19 Encounters Code Encounter Date Provider Facility CPT-01220 Level 4 Est. Patient 09:44:36 CDT Andre Barreto MD [facility] CPT-19565 Level 4 Est. Patient 10:07:14 CDT Andre Barreto MD [facility] CPT-85305 Level 3 Est. Patient 14:29:01 CDT Esa Jackson MD [facility] CPT-82530 Level 3 Est. Patient 14:06:16 CDT Andre Barreto MD [facility] CPT-93767 Level 3 Est. Patient 09:16:36 CDT David King [facility] CPT-35076 Level 3 Est. Patient 09:24:01 [employer] David King [facility] CPT-14429 Level 3 Est. Patient 13:01:07 [employer] Solitario Howe MD [facility] CPT-73950 Level 4 Est. Patient 10:26:48 [employer] Andre Barreto MD [facility] CPT-41162 Level 4 Est. Patient 09:45:06 CDT Andre Barreto MD [facility] CPT-94575 Level 4 Est. Patient 11:53:39 [employer] Andre Barreto MD [facility] CPT-84330 Level 4 Est. Patient 14:21:31 CDT Andre Barreto MD [facility] CPT-00974 Level 4 Est. Patient 15:24:17 CDT Andre Barreto MD [facility] CPT-55716 Level 3 Est. Patient 10:36:40 CDT Andre Barreto MD [facility] CPT-54416 Level 4 Est. Patient 11:27:43 CDT Andre Barreto MD [facility] CPT-21109 Level 3 Est. Patient 10:57:31 [employer] Andre Barreto MD [facility] CPT-75863 Level 3 Est. Patient 13:53:13 [employer] Andre Barreto MD [facility] CPT-68204 Level 3 Est. Patient 09:16:12 CDT Andre Barreto MD [facility] CPT-64954 Level 3 Est. Patient 14:50:35 CDT Andre Barreto MD [facility] Procedures Code Procedure Name Date Entry Date Standard Description CPT-75557 Bone Density - XRAY USE ONLY 11:55:39 CDT CPT-68942 Postop F/U Visit 14:31:27 CDT CPT-37382 Postop F/U Visit 14:30:20 CDT CPT-48931 Sono pelvis coley bladder only - XRAY USE ONLY 15:07:39 CDT CPT-28830 First Vx - Ix admin for Medicare patients 13:56:44 [employer] CPT-14326 Zostavax Subcutaneous Solution Reconstituted 23585 UNT/0.65ML 12/22 13:56:44 [employer] CPT-G0009 Administration of Pneumococcal Vaccine 10:12:50 CDT CPT-53064 Pneumovax 23 Injection Injectable 25 MCG/0.5ML 10:12:50 CDT CPT-G0439 [facility] Annual Wellness Exam 09:49:25 CDT CPT-18662 First Vx - Ix admin for Medicare patients 17:55:11 [employer] CPT-46341 Fluzone High-Dose Intramuscular Suspension 17:55:11 [employer] CPT-66917 Venipuncture Draw Fee 14:11:36 CDT CPT-95621 Lipid - LAB USE ONLY 14:11:36 CDT CPT-99787 CMP - LAB USE ONLY 14:11:36 CDT CPT-G0438 Initial Annual Wellness Exam 13:29:06 CDT CPT-G0009 Administration of Pneumococcal Vaccine 13:26:57 CDT CPT-13747 Prevnar 13 Intramuscular Suspension 13:26:56 CDT 08/19 CPT-79527 Bone Density - XRAY USE ONLY 09:30:16 CDT CPT-Cryo Cryotherapy 08:59:26 [employer] CPT-Cryo Cryotherapy 08:46:02 CDT CPT-44447 Chest 2V Frontal and Lat 14:02:13 [employer]
--- OUTSIDE RECORDS SUMMARY | 2018-03-16 19:17 | XMS REPORT | Clinical Summary ---
Author Author Admin, EDUARDO Organization [employer] Address Unknown Phone Unavailable Allergies, Adverse Reactions, Alerts Allergy Name Reaction Description Start Date Severity Status Provider SULFA Mild No Longer Active Jillina Frazell WHEEL MILL OPERATOR PENICILLIN Mild No Longer Active Jillina Frazell WHEEL MILL OPERATOR ZINC Mild No Longer Active Jillina Frazell WHEEL MILL OPERATOR SULFA Critical No Longer Active Marcelle Yesi RMA PENICILLIN Critical No Longer Active Marcelle Yesi RMA ZINC Critical No Longer Active Marcelle Yesi RMA PENICILLIN UNK Inactive Red Funes MA ZINC UNK Inactive Red Funes MA SULFA UNK Inactive Red Funes MA Conditions or Problems Problem Name Problem Code Onset Date Status Entry Date Provider Comment Standard Description Annotate Hyperlipidemia 272.4 Active Andre Barreto MD Other and [...] Coronary atherosclerosis of unspecified type of vessel, [place] or graft Obstructive sleep apnea 327.23 Active Andre Barreto MD Obstructive sleep apnea (adult) (pediatric) Health screening V70.0 Active Andre Barreto MD Routine general [...] Resolved Andre Barreto MD Dyshidrosis Depression 311 Active Andre Barreto MD Depressive disorder, [...] gait Continuous positive airway pressure rx V46.2 Active Pushpa Hernandez WHEEL MILL OPERATOR Other dependence on machines, supplemental oxygen Osteopenia 733.90 Active Pushpa Hernandez APRN Disorder of bone and cartilage, unspecified Obstructive sleep apnea 327.23 Active Andre Barreto MD Obstructive sleep apnea (adult) (pediatric) Acute exacerbation of chronic bronchitis 491.22 Inactive Solitario Howe MD Obstructive chronic bronchitis with acute bronchitis Sinusitis 473.9 Active David King WHEEL MILL OPERATOR Unspecified sinusitis (chronic) Abscess, skin 682.9 Active David King APRN Cellulitis and abscess of unspecified sites DYSPNEA ICD-786.09 Inactive Andre Barreto MD 2012 [...] Unsteady gait ICD-781.2 Inactive Andre Barreto MD Acute exacerbation of chronic bronchitis ICD-491.22 Inactive Solitario Howe MD Medication List Medication Instructions Start Date Stop Date Generic Name NDC Status Provider Patient Instruction BACTROBAN 2 % EXTERNAL OINTMENT Apply to affected area BID 05/18 MUPIROCIN 63437779964 No Longer Active Moira Price MA Active CLINDAMYCIN HCL 300 MG ORAL CAPSULE 1 po QID x 7 days CLINDAMYCIN HCL 19658745763 No Longer Active Jillina Frazell WHEEL MILL OPERATOR Active BACTRIM DS 800-160 MG ORAL TABLET 1 tab by mouth twice daily 2017 TRIMETHOPRIM-SULFAMETHOXAZOLE 45791138659 No Longer Active Jillina Frazell WHEEL MILL OPERATOR Active GUAIFENESIN DM 400-20 MG ORAL TABLET 1 pill by mouth twice daily, if needed for cough DEXTROMETHORPHAN-GUAIFENESIN 29879292172 Active Jillina Frazell WHEEL MILL OPERATOR Active CEFDINIR 300 MG ORAL CAPSULE by mouth twice a day CEFDINIR 60186020077 No Longer Active Jillina Frazell WHEEL MILL OPERATOR Active BENZONATATE 200 MG ORAL CAPSULE 1 three times a day as needed for cough 03/27 BENZONATATE 49331153871 No Longer Active Luna Prabhakar Active ZITHROMAX Z-NEVAEH 250 MG ORAL TABLET 2 today and then 1 daily for 4 days 03/27 AZITHROMYCIN 72116547496 No Longer Active Luna Prabhakar Active PREDNISONE 20 MG ORAL TABLET 2 daily for 3 days then 1 daily for 3 days 03/27 PREDNISONE 36458760999 No Longer Active Luna Prabhakar Active ATORVASTATIN CALCIUM 40 MG ORAL TABLET 1 po qHS ATORVASTATIN CALCIUM 14808276025 Active Marcelle VERA Active CLOPIDOGREL BISULFATE 75 MG ORAL TABLET 1 po qd CLOPIDOGREL BISULFATE 39254466060 Active Andre Barreto MD Active FUROSEMIDE 20 MG ORAL TABLET 1 po qd PRN Edema FUROSEMIDE 44722982884 Active Andre Barreto MD Active PROAIR HFA 108 (90 Base) MCG/ACT INHALATION AEROSOL SOLUTION 2 puffs q4hr PRN Shortness of air/Wheezing ALBUTEROL SULFATE 76053068104 Active Andre Barreto MD Active ATORVASTATIN CALCIUM 80 MG ORAL TABLET 1 po qHS ATORVASTATIN CALCIUM 63735499479 No Longer Active Andre Barreto MD Active AMBIEN 5 MG ORAL TABLET 1 po qHS PRN Insomnia ZOLPIDEM TARTRATE 04468179088 Active Andre Barreto MD Active DETROL 2 MG ORAL TABLET 1 po qd TOLTERODINE TARTRATE 86538956594 Active Andre Barreto MD Active NITROGLYCERIN 0.4 MG SUBLINGUAL TABLET SUBLINGUAL 1 SL q5min PRN Chest pain up to 3 doses NITROGLYCERIN 73447799347 Active Andre Barreto MD Active TOPROL XL 50 MG ORAL TABLET EXTENDED RELEASE 24 HOUR 1 po qd METOPROLOL SUCCINATE 13468769765 Active Andre Barreto MD Active SYMBICORT 160-4.5 MCG/ACT INHALATION AEROSOL 2 puff BID BUDESONIDE-FORMOTEROL FUMARATE 14398816455 Active Cayla VERA Active FLUOXETINE HCL 40 MG ORAL CAPSULE 1 po qd FLUOXETINE HCL 84512622014 Active Andre Barreto MD Active BENICAR HCT 40-25 MG ORAL TABLET Take one by mouth daily OLMESARTAN MEDOXOMIL-HCTZ 54549041745 No Longer Active Andre Barreto MD Active LOSARTAN POTASSIUM-HCTZ 100-25 MG ORAL TABLET 1 po qd LOSARTAN POTASSIUM-HCTZ 23225878107 Active Andre Barreto MD Active BETAMETHASONE DIPROPIONATE 0.05 % EXTERNAL OINTMENT Apply to affected areas BID for up to 2 weeks BETAMETHASONE DIPROPIONATE 22573703189 No Longer Active Andre Barreto MD Active ZOFRAN 4 MG ORAL TABLET 1 po q6hr PRN Nausea ONDANSETRON HCL 92632195378 No Longer Active Andre Barreto MD Active CIPRO 500 MG ORAL TABLET 1 tablet by mouth twice daily CIPROFLOXACIN HCL 05185407840 No Longer Active Andre Barreto MD Active SYMBICORT 160-4.5 MCG/ACT INHALATION AEROSOL 2 puffs inhaled bid BUDESONIDE-FORMOTEROL FUMARATE 50497183692 No Longer Active Andre Barreto MD Active DICLOFENAC SODIUM 75 MG ORAL TABLET DELAYED RELEASE 1 tablet by mouth twice daily DICLOFENAC SODIUM 05921216943 No Longer Active Andre Barreto MD Active PROZAC 40 MG ORAL CAPSULE 1 cap by mouth at bedtime FLUOXETINE HCL 24066819872 No Longer Active Andre Barreto MD Active HYDROCODONE-ACETAMINOPHEN 5-325 MG ORAL TABLET 1 po q 6hr PRN Pain HYDROCODONE-ACETAMINOPHEN 27912237136 No Longer Active Andre Barreto MD Active TRAMADOL HCL 50 MG ORAL TABLET 2 po q 6 hrs prn TRAMADOL HCL 03064506519 Active Andre Barreto MD Active HYDROCODONE-ACETAMINOPHEN 5-325 MG ORAL TABLET 1 po q 6hr PRN Pain HYDROCODONE-ACETAMINOPHEN 5-325 MG ORAL TABLET 601823 HYDROCODONE- ACETAMINOPHEN Inactive PROZAC 40 MG ORAL CAPSULE 1 cap by mouth at bedtime PROZAC 40 MG ORAL CAPSULE 708543 FLUOXETINE HCL Inactive DICLOFENAC SODIUM 75 MG ORAL TABLET DELAYED RELEASE 1 tablet by mouth twice daily DICLOFENAC SODIUM 75 MG ORAL TABLET DELAYED RELEASE 051966 DICLOFENAC SODIUM Inactive SYMBICORT 160-4.5 MCG/ACT INHALATION AEROSOL 2 puffs inhaled bid SYMBICORT 160-4.5 MCG/ACT INHALATION AEROSOL BUDESONIDE-FORMOTEROL FUMARATE Inactive ZOFRAN 4 MG ORAL TABLET 1 po q6hr PRN Nausea ZOFRAN 4 MG ORAL TABLET 568465 ONDANSETRON HCL Inactive BETAMETHASONE DIPROPIONATE 0.05 % EXTERNAL OINTMENT Apply to affected areas BID for up to 2 weeks BETAMETHASONE DIPROPIONATE 0.05 % EXTERNAL OINTMENT 692194 BETAMETHASONE DIPROPIONATE Inactive BENICAR HCT 40-25 MG ORAL TABLET Take one by mouth daily BENICAR HCT 40-25 MG ORAL TABLET 892456 OLMESARTAN MEDOXOMIL-HCTZ Inactive ATORVASTATIN CALCIUM 80 MG ORAL TABLET 1 po qHS ATORVASTATIN CALCIUM 80 MG ORAL TABLET 539754 ATORVASTATIN CALCIUM Inactive PREDNISONE 20 MG ORAL TABLET 2 daily for 3 days then 1 daily for 3 days 03/27 PREDNISONE 20 MG ORAL TABLET 990019 PREDNISONE Inactive ZITHROMAX Z-NEVAEH 250 MG ORAL TABLET 2 today and then 1 daily for 4 days 03/27 ZITHROMAX Z-NEVAEH 250 MG ORAL TABLET 462778 AZITHROMYCIN Inactive BENZONATATE 200 MG ORAL CAPSULE 1 three times a day as needed for cough 03/27 BENZONATATE 200 MG ORAL CAPSULE 265403 BENZONATATE Inactive BACTRIM DS 800-160 MG ORAL TABLET 1 tab by mouth twice daily 2017 BACTRIM DS 800-160 MG ORAL TABLET 078935 TRIMETHOPRIM- SULFAMETHOXAZOLE Inactive BACTROBAN 2 % EXTERNAL OINTMENT Apply to affected area BID 05/18 BACTROBAN 2 % EXTERNAL OINTMENT 909117 MUPIROCIN Inactive CIPRO 500 MG ORAL TABLET 1 tablet by mouth twice daily CIPRO 500 MG ORAL TABLET 948941 CIPROFLOXACIN HCL Inactive CEFDINIR 300 MG ORAL CAPSULE by mouth twice a day CEFDINIR 300 MG ORAL CAPSULE 675752 CEFDINIR Inactive CLINDAMYCIN HCL 300 MG ORAL CAPSULE 1 po QID x 7 days CLINDAMYCIN HCL 300 MG ORAL CAPSULE 081840 CLINDAMYCIN HCL Inactive Advance Directives Directive Description Start Date DISCUSSED WITH PATIENT -- NO DECISION MADE Vital Signs Date Name Value Unit Range Description blood pressure, diastolic 68 mm[Hg] BP pat [...] temperature weight E&M 275 [lb_av] Weight Measured blood pressure, diastolic 85 mm[Hg] BP pat blood pressure, systolic 162 mm[Hg] BP sys pulse rate E&M 80 /min Heart rate temperature E&M 97.8 [degF] Body temperature weight E&M 293.56 [lb_av] Weight Measured Diagnostic Results Date Name Value Unit Range Description Lab Report: CBC - Chemistry albumin/creatinine ratio, urine <30 mg/g Normal mg/g mg/g{creat} 0-29 Lab Report: CBC - Hematology leukocyte count, blood 6.7 10^3/MM^3 10*3/mm3 4.6-10.2 erythrocyte (RBC) count 4.49 10^6/MM^3 10*6/mm3 3.80-5.80 hemoglobin, blood 13.5 g/dL 12.0-16.0 hematocrit, blood 41.5 % 37.0-47.0 mean corpuscular volume, RBC 92 fL 80-97 mean corpuscular hemoglobin, RBC 30.0 pg 27.0-31.2 mean corpuscular hemoglobin concentration, RBC 32.5 G/DL % 31.8- 35.4 red blood cell distribution width 13.4 % 11.6-14.8 platelet count 263 10^3/MM^3 10*3/mm3 142-424 Lab Report: CBC - Lab microalbumin, urine 30 mg/L 0-19 Lab Report: HGBA1C, CBC - Chemistry hemoglobin [...] 10^3/MM^3 10*3/mm3 142-424 Lab Report: HGBA1C, Lipid Panel, Comp. Metabolic Panel - Chemistry hemoglobin A1C, blood, as % of total hemoglobin 6.2 % 4.3-6.0 cholesterol, serum 229 mg/dL 321-993 6841/07/24 triglyceride, serum, fasting 106 mg/dL 30-200 HDL cholesterol, serum 60 mg/dL 32-60 LDL cholesterol, serum 148 mg/dL 0-130 sodium, serum 139 mmol/L 115-870 0296/07/24 carbon dioxide, venous blood 34.8 mmol/L 21.0-32.0 potassium, serum 4.6 mmol/L 3.5-5.2 chloride, serum 101 mmol/L 98-107 blood glucose 112 mg/dL 65-110 urea nitrogen, blood 22 mg/dL 7-18 creatinine, serum 1.12 mg/dL 0.60-1.30 alanine aminotransferase (SGPT), serum 32 U/L 12-78 aspartate aminotransferase (SGOT), serum 22 U/L 15-37 calcium, serum 9.4 mg/dL 8.5-10.1 bilirubin, serum, total 0.50 mg/dL 0.00-1.00 Lab Report: Lipid Panel, Comp. Metabolic Panel - Chemistry cholesterol, serum 275 mg/dL 497-744 1949/11/07 triglyceride, serum, fasting 166 mg/dL 30-200 HDL cholesterol, serum 62 mg/dL 32-60 LDL cholesterol, serum 180 mg/dL 0-130 sodium, serum 141 mmol/L 376-712 5964/11/07 carbon dioxide, venous blood 26.3 mmol/L 21.0-32.0 potassium, serum 4.0 mmol/L 3.5-5.2 chloride, serum 102 mmol/L 98-107 blood glucose 111 mg/dL 65-110 urea nitrogen, blood 24 mg/dL 7-18 creatinine, serum 1.15 mg/dL 0.60-1.30 alanine aminotransferase (SGPT), serum 52 U/L -78 aspartate aminotransferase (SGOT), serum 28 U/L 15-37 calcium, serum 9.2 mg/dL 8.5-10.1 bilirubin, serum, total 0.50 mg/dL 0.00-1.00 Lab Report: MICROALB/CREAT W/RATIO - Chemistry albumin/creatinine ratio, urine <30 mg/g Normal mg/g mg/g{creat} 0-29 Lab Report: MICROALB/CREAT W/RATIO - Lab microalbumin, urine 10 mg/L 0-19 Encounters Code Encounter Date Provider Facility CPT-17260 Level 3 Est. Patient 14:29:01 CDT Esa Jackson MD [facility] CPT-16965 Level 3 Est. Patient 14:06:16 CDT Andre Barreto MD [facility] CPT-97323 Level 3 Est. Patient 09:16:36 CDT David King [facility] CPT-32600 Level 3 Est. Patient 09:24:01 BUSINESS OFFICE MANAGER David King [facility] CPT-11935 Level 3 Est. Patient 13:01:07 BUSINESS OFFICE MANAGER Solitario Howe MD [facility] CPT-48688 Level 4 Est. Patient 10:26:48 BUSINESS OFFICE MANAGER Andre Barreto MD [facility] CPT-16756 Level 4 Est. Patient 09:45:06 CDT Andre Barreto MD [facility] CPT-19752 Level 4 Est. Patient 11:53:39 BUSINESS OFFICE MANAGER Andre Barreto MD [facility] CPT-00935 Level 4 Est. Patient 14:21:31 CDT Andre Barreto MD [facility] CPT-03225 Level 4 Est. Patient 15:24:17 CDT Andre Barreto MD [facility] CPT-42834 Level 3 Est. Patient 10:36:40 CDT Andre Barreto MD [facility] [place] CPT-81453 Level 4 Est. Patient 11:27:43 CDT Andre Barreto MD [facility] CPT-63200 Level 3 Est. Patient 10:57:31 BUSINESS OFFICE MANAGER Andre Barreto MD [facility] CPT-81483 Level 3 Est. Patient 13:53:13 BUSINESS OFFICE MANAGER Andre Barreto MD [facility] CPT-06227 Level 3 Est. Patient 09:16:12 CDT Andre Barreto MD [facility] CPT-16401 Level 3 Est. Patient 14:50:35 CDT Andre Barreto MD [facility] [place] Procedures Code Procedure Name Date Entry Date Standard Description CPT-78424 Postop F/U Visit 14:31:27 CDT CPT-79844 Postop F/U Visit 14:30:20 CDT CPT-30008 Sono pelvis coley bladder only - XRAY USE ONLY 15:07:39 CDT CPT-97334 First Vx - Ix admin for Medicare patients 13:56:44 BUSINESS OFFICE MANAGER CPT-20609 Zostavax Subcutaneous Solution Reconstituted 41107 UNT/0.65ML 12/22 13:56:44 BUSINESS OFFICE MANAGER CPT-G0009 Administration of Pneumococcal Vaccine 10:12:50 CDT CPT-27794 Pneumovax 23 Injection Injectable 25 MCG/0.5ML 10:12:50 CDT CPT-G0439 Subsequent Annual Wellness Exam 09:49:25 CDT CPT-96198 First Vx - Ix admin for Medicare patients 17:55:11 BUSINESS OFFICE MANAGER CPT-35633 Fluzone High-Dose Intramuscular Suspension 17:55:11 BUSINESS OFFICE MANAGER CPT-00433 Venipuncture Draw Fee 14:11:36 CDT CPT-77346 Lipid - LAB USE ONLY 14:11:36 CDT CPT-48911 CMP - LAB USE ONLY 14:11:36 CDT CPT-G0438 Initial Annual Wellness Exam 13:29:06 CDT CPT-G0009 Administration of Pneumococcal Vaccine 13:26:57 CDT CPT-17145 Prevnar 13 Intramuscular Suspension 13:26:56 CDT 08/19 CPT-80819 Bone Density - XRAY USE ONLY 09:30:16 CDT CPT-Cryo Cryotherapy 08:59:26 BUSINESS OFFICE MANAGER CPT-Cryo Cryotherapy 08:46:02 CDT CPT-76821 Chest 2V Frontal and Lat 14:02:13 BUSINESS OFFICE MANAGER
--- OUTSIDE RECORDS SUMMARY | 2018-03-16 19:18 | XMS REPORT | Clinical Summary ---
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 SULFA Critical No Longer Active Marcelle [...] Coronary atherosclerosis of unspecified type of vessel, nulato or graft Obstructive sleep apnea 327.23 Active [...] 1 po q8hr PRN Dizziness MECLIZINE HCL 12080803690 No Longer Active Andre Barreto MD Active MELOXICAM 15 MG ORAL TABLET 1 po qd PRN Pain MELOXICAM 87318109560 Active Andre Barreto MD Active ATORVASTATIN CALCIUM 40 MG ORAL TABLET 1 po qHS ATORVASTATIN CALCIUM 34209653280 No Longer Active Andre Barreto MD Active ATORVASTATIN CALCIUM 20 MG ORAL TABLET 1 po MWF ATORVASTATIN CALCIUM 53461082178 Active Andre Barreto MD Active GUAIFENESIN DM 400-20 MG ORAL TABLET 1 pill by mouth twice daily, if needed for cough DEXTROMETHORPHAN-GUAIFENESIN 85576443737 No Longer Active Andre Barreto MD Active BACTROBAN 2 % EXTERNAL OINTMENT Apply to affected area BID 05/18 MUPIROCIN 55424076338 No Longer Active Moira Price MA Active CLINDAMYCIN HCL 300 MG ORAL CAPSULE 1 po QID x 7 days CLINDAMYCIN HCL 80520786599 No Longer Active Jillina Frazell 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 BACTRIM DS 800-160 MG ORAL TABLET 1 tab by mouth twice daily 2017 TRIMETHOPRIM-SULFAMETHOXAZOLE 13584681254 No Longer Active Jillina Frazell 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 CEFDINIR 300 MG ORAL CAPSULE by mouth twice a day CEFDINIR 72105447212 No Longer Active Jillina Frazell 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 BENZONATATE 200 MG ORAL CAPSULE 1 three times a day as needed for cough 03/27 BENZONATATE 87418193027 No Longer Active Luna Prabhakar Active ZITHROMAX Z-NEVAEH 250 MG ORAL TABLET 2 today and then 1 daily for 4 days 03/27 AZITHROMYCIN 57832586346 No Longer Active Luna Prabhakar Active PREDNISONE 20 MG ORAL TABLET 2 daily for 3 days then 1 daily for 3 days 03/27 PREDNISONE 68780290908 No Longer Active Luna Prabhakar Active CLOPIDOGREL BISULFATE 75 MG ORAL TABLET 1 po qd CLOPIDOGREL BISULFATE 93623209399 Active Andre Barreto MD Active FUROSEMIDE 20 MG ORAL TABLET 1 po qd PRN Edema FUROSEMIDE 78748839599 Active Andre Barreto MD Active PROAIR HFA 108 (90 Base) MCG/ACT INHALATION AEROSOL SOLUTION 2 puffs q4hr PRN Shortness of air/Wheezing ALBUTEROL SULFATE 21657945171 Active Andre Barreto MD Active ATORVASTATIN CALCIUM 80 MG ORAL TABLET 1 po qHS ATORVASTATIN CALCIUM 47140956543 No Longer Active Andre Barreto MD Active AMBIEN 5 MG ORAL TABLET 1 po qHS PRN Insomnia ZOLPIDEM TARTRATE 33297842275 Active Andre Barreto MD Active DETROL 2 MG ORAL TABLET 1 po qd TOLTERODINE TARTRATE 01696103639 Active Andre Barreto MD Active NITROGLYCERIN 0.4 MG SUBLINGUAL TABLET SUBLINGUAL 1 SL q5min PRN Chest pain up to 3 doses NITROGLYCERIN 19760898268 Active Andre Barreto MD Active TOPROL XL 50 MG ORAL TABLET EXTENDED RELEASE 24 HOUR 1 po qd METOPROLOL SUCCINATE 83281642957 Active Andre Barreto MD Active SYMBICORT 160-4.5 MCG/ACT INHALATION AEROSOL 2 puff BID BUDESONIDE-FORMOTEROL FUMARATE 80356488143 Active Cayla VERA Active FLUOXETINE HCL 40 MG ORAL CAPSULE 1 po qd FLUOXETINE HCL 37079768756 Active Andre Barreto MD Active BENICAR HCT 40-25 MG ORAL TABLET Take one by mouth daily OLMESARTAN MEDOXOMIL-HCTZ 67365134847 No Longer Active Andre Barreto MD Active LOSARTAN POTASSIUM-HCTZ 100-25 MG ORAL TABLET 1 po qd LOSARTAN POTASSIUM-HCTZ 21104091671 Active Andre Barreto MD Active BETAMETHASONE DIPROPIONATE 0.05 % EXTERNAL OINTMENT Apply to affected areas BID for up to 2 weeks BETAMETHASONE DIPROPIONATE 60231563128 No Longer Active Andre Barreto MD Active ZOFRAN 4 MG ORAL TABLET 1 po q6hr PRN Nausea ONDANSETRON HCL 01056463979 No Longer Active Andre Barreto MD Active CIPRO 500 MG ORAL TABLET 1 tablet by mouth twice daily CIPROFLOXACIN HCL 15903331031 No Longer Active Andre Barreto MD Active SYMBICORT 160-4.5 MCG/ACT INHALATION AEROSOL 2 puffs inhaled bid BUDESONIDE-FORMOTEROL FUMARATE 20182039989 No Longer Active Andre Barreto MD Active DICLOFENAC SODIUM 75 MG ORAL TABLET DELAYED RELEASE 1 tablet by mouth twice daily DICLOFENAC SODIUM 29743255687 No Longer Active Andre Barreto MD Active PROZAC 40 MG ORAL CAPSULE 1 cap by mouth at bedtime FLUOXETINE HCL 14153496102 No Longer Active Andre Barreto MD Active HYDROCODONE-ACETAMINOPHEN 5-325 MG ORAL TABLET 1 po q 6hr PRN Pain HYDROCODONE-ACETAMINOPHEN 30212025005 No Longer Active Andre Barreto MD Active TRAMADOL HCL 50 MG ORAL TABLET 2 po q 6 hrs prn TRAMADOL HCL 93917600741 Active Andre Barreto MD Active HYDROCODONE-ACETAMINOPHEN 5-325 MG ORAL TABLET 1 po q 6hr PRN Pain HYDROCODONE-ACETAMINOPHEN 5-325 MG ORAL TABLET 500287 HYDROCODONE- ACETAMINOPHEN Inactive PROZAC 40 MG ORAL CAPSULE 1 cap by mouth at bedtime PROZAC 40 MG ORAL CAPSULE 517742 FLUOXETINE HCL Inactive DICLOFENAC SODIUM 75 MG ORAL TABLET DELAYED RELEASE 1 tablet by mouth twice daily DICLOFENAC SODIUM 75 MG ORAL TABLET DELAYED RELEASE 575721 DICLOFENAC SODIUM Inactive SYMBICORT 160-4.5 MCG/ACT INHALATION AEROSOL 2 puffs inhaled bid SYMBICORT 160-4.5 MCG/ACT INHALATION AEROSOL BUDESONIDE-FORMOTEROL FUMARATE Inactive ZOFRAN 4 MG ORAL TABLET 1 po q6hr PRN Nausea ZOFRAN 4 MG ORAL TABLET 889231 ONDANSETRON HCL Inactive BETAMETHASONE DIPROPIONATE 0.05 % EXTERNAL OINTMENT Apply to affected areas BID for up to 2 weeks BETAMETHASONE DIPROPIONATE 0.05 % EXTERNAL OINTMENT 012604 BETAMETHASONE DIPROPIONATE Inactive BENICAR HCT 40-25 MG ORAL TABLET Take one by mouth daily BENICAR HCT 40-25 MG ORAL TABLET 364434 OLMESARTAN MEDOXOMIL-HCTZ Inactive ATORVASTATIN CALCIUM 80 MG ORAL TABLET 1 po qHS ATORVASTATIN CALCIUM 80 MG ORAL TABLET 381377 ATORVASTATIN CALCIUM Inactive PREDNISONE 20 MG ORAL TABLET 2 daily for 3 days then 1 daily for 3 days 03/27 PREDNISONE 20 MG ORAL TABLET 209008 PREDNISONE Inactive ZITHROMAX Z-NEVAEH 250 MG ORAL TABLET 2 today and then 1 daily for 4 days 03/27 ZITHROMAX Z-NEVAEH 250 MG ORAL TABLET 240095 AZITHROMYCIN Inactive BENZONATATE 200 MG ORAL CAPSULE 1 three times a day as needed for cough 03/27 BENZONATATE 200 MG ORAL CAPSULE 844031 BENZONATATE Inactive BACTRIM DS 800-160 MG ORAL TABLET 1 tab by mouth twice daily 2017 BACTRIM DS 800-160 MG ORAL TABLET 067574 TRIMETHOPRIM- SULFAMETHOXAZOLE Inactive BACTROBAN 2 % EXTERNAL OINTMENT Apply to affected area BID 05/18 BACTROBAN 2 % EXTERNAL OINTMENT MUPIROCIN Inactive GUAIFENESIN DM 400-20 MG ORAL TABLET 1 pill by mouth twice daily, if needed for cough GUAIFENESIN DM 400-20 MG ORAL TABLET 1122739 DEXTROMETHORPHAN-GUAIFENESIN Inactive ATORVASTATIN CALCIUM 40 MG ORAL TABLET 1 po qHS ATORVASTATIN CALCIUM 40 MG ORAL TABLET 727639 ATORVASTATIN CALCIUM Inactive MECLIZINE HCL 25 MG ORAL TABLET 1 po q8hr PRN Dizziness MECLIZINE HCL 25 MG ORAL TABLET 355785 MECLIZINE HCL Inactive CIPRO 500 MG ORAL TABLET 1 tablet by mouth twice daily CIPRO 500 MG ORAL TABLET 274586 CIPROFLOXACIN HCL Inactive CEFDINIR 300 MG ORAL CAPSULE by mouth twice a day CEFDINIR 300 MG ORAL CAPSULE 666061 CEFDINIR Inactive CLINDAMYCIN HCL 300 MG ORAL CAPSULE 1 po QID x 7 days CLINDAMYCIN HCL 300 MG ORAL CAPSULE 473856 CLINDAMYCIN HCL Inactive Advance Directives Directive Description [...] % 11.6-14.8 platelet count 263 10^3/MM^3 10*3/mm3 013-396 7277/07/03 leukocyte count, blood 8.1 10^3/MM^3 10*3/mm3 4.6-10.2 [...] count 247 10^3/MM^3 10*3/mm3 142-424 Lab Report: CBC - Lab microalbumin, urine 30 mg/L 0-19 Lab Report: Comp. Metabolic Panel - Chemistry sodium, serum 139 mmol/L 837-271 7081/05/04 carbon dioxide, venous blood 28.7 mmol/L 21.0-32.0 potassium, serum 4.2 mmol/L 3.5-5.2 chloride, serum 102 mmol/L 98-107 blood glucose 120 mg/dL 65-95 urea nitrogen, blood 19 mg/dL 7-18 creatinine, serum 0.99 mg/dL 0.60-1.30 alanine aminotransferase (SGPT), serum 40 U/L 12-78 aspartate aminotransferase (SGOT), serum 23 U/L 15-37 calcium, serum 9.4 mg/dL 8.5-10.1 bilirubin, serum, total 0.50 mg/dL 0.00-1.00 Lab Report: HGBA1C, CBC - Chemistry hemoglobin [...] 6.2 % 4.3-6.0 cholesterol, serum 302 mg/dL 358-641 0939/05/04 triglyceride, serum, fasting 145 mg/dL 30-200 HDL cholesterol, serum 61 mg/dL 32-60 LDL cholesterol, serum 212 mg/dL 0-130 Lab Report: HGBA1C, Lipid Panel, Comp. Metabolic Panel - Chemistry hemoglobin A1C, blood, as % of total hemoglobin 6.2 % 4.3-6.0 cholesterol, serum 229 mg/dL 178-541 1290/07/24 triglyceride, serum, fasting 106 mg/dL 30-200 HDL cholesterol, serum 60 mg/dL 32-60 LDL cholesterol, serum 148 mg/dL 0-130 sodium, serum 139 mmol/L 380-121 6051/07/24 carbon dioxide, venous blood 34.8 mmol/L 21.0-32.0 [...] Panel - Chemistry cholesterol, serum 275 mg/dL 365-134 9518/11/07 triglyceride, serum, fasting 166 mg/dL 30-200 HDL cholesterol, serum 62 mg/dL 32-60 LDL cholesterol, serum 180 mg/dL 0-130 sodium, serum 141 mmol/L 692-540 4008/11/07 carbon dioxide, venous blood 26.3 mmol/L 21.0-32.0 [...] 0-19 Encounters Code Encounter Date Provider Facility CPT-57570 Level 4 Est. Patient 09:44:36 CDT Andre Barreto MD [facility] CPT-89847 Level 4 Est. Patient 10:07:14 CDT Andre Barreto MD [facility] CPT-01287 Level 3 Est. Patient 14:29:01 CDT Esa Jackson MD [facility] CPT-98529 Level 3 Est. Patient 14:06:16 CDT Andre Barreto MD [facility] CPT-54253 Level 3 Est. Patient 09:16:36 CDT David King [facility] CPT-56142 Level 3 Est. Patient 09:24:01 [employer]VIS[employer] David King [facility] CPT-15382 Level 3 Est. Patient 13:01:07 [employer]PER[employer] Solitario Howe MD [facility] CPT-90264 Level 4 Est. Patient 10:26:48 [employer] Andre Barreto MD [facility] CPT-59218 Level 4 Est. Patient 09:45:06 CDT Andre Barreto MD [facility] CPT-95135 Level 4 Est. Patient 11:53:39 [employer]PERVIS[employer] Andre Barreto MD [facility] CPT-00207 Level 4 Est. Patient 14:21:31 CDT Andre Barreto MD [facility] CPT-87577 Level 4 Est. Patient 15:24:17 CDT Andre Barreto MD [facility] CPT-58053 Level 3 Est. Patient 10:36:40 CDT Andre Barreto MD [facility] CPT-05580 Level 4 Est. Patient 11:27:43 CDT Andre Barreto MD [facility] CPT-59046 Level 3 Est. Patient 10:57:31 [employer]PERVIS[employer] Andre Barreto MD [facility] CPT-91746 Level 3 Est. Patient 13:53:13 SUPERVIS[employer] Andre Barreto MD [facility] CPT-72275 Level 3 Est. Patient 09:16:12 CDT Andre Barreto MD [facility] CPT-09351 Level 3 Est. Patient 14:50:35 CDT Andre Barreto MD [facility] Procedures Code Procedure Name Date Entry Date Standard Description CPT-93830 Bone Density - XRAY USE ONLY 11:55:39 CDT CPT-45979 Postop F/U Visit 14:31:27 CDT CPT-86215 Postop F/U Visit 14:30:20 CDT CPT-53760 Sono pelvis coley bladder only - XRAY USE ONLY 15:07:39 CDT CPT-45779 First Vx - Ix admin for Medicare patients 13:56:44 [employer] CPT-34121 Zostavax Subcutaneous Solution Reconstituted 71808 UNT/0.65ML 12/22 13:56:44 [employer] CPT-G0009 Administration of Pneumococcal Vaccine 10:12:50 CDT CPT-28699 Pneumovax 23 Injection Injectable 25 MCG/0.5ML 10:12:50 CDT CPT-G0439 Subsequent Annual Wellness Exam 09:49:25 CDT CPT-14257 First Vx - Ix admin for Medicare patients 17:55:11 [employer] CPT-36929 Fluzone High-Dose Intramuscular Suspension 17:55:11 [employer] CPT-34905 Venipuncture Draw Fee 14:11:36 CDT CPT-46818 Lipid - LAB USE ONLY 14:11:36 CDT CPT-90895 CMP - LAB USE ONLY 14:11:36 CDT CPT-G0438 Initial Annual Wellness Exam 13:29:06 CDT CPT-G0009 Administration of Pneumococcal Vaccine 13:26:57 CDT CPT-92571 Prevnar 13 Intramuscular Suspension 13:26:56 CDT 08/19 CPT-22578 Bone Density - XRAY USE ONLY 09:30:16 CDT CPT-Cryo Cryotherapy 08:59:26 SUPERVIS[employer] CPT-Cryo Cryotherapy 08:46:02 CDT CPT-82792 Chest 2V Frontal and Lat 14:02:13 SUPERVIS[employer]
--- OUTSIDE RECORDS SUMMARY | 2018-03-16 19:19 | XMS REPORT | Clinical Summary ---
Author Author Admin, [employer] Organization [facility] Address Unknown Phone Unavailable Allergies, Adverse Reactions, Alerts Allergy Name Reaction Description Start Date Severity Status Provider SULFA Mild No Longer Active Jillina Frazell DIRECTOR FACILITIES MAINTENANCE PENICILLIN Mild No Longer Active Jillina Frazell DIRECTOR FACILITIES MAINTENANCE ZINC Mild No Longer Active Jillina Frazell DIRECTOR FACILITIES MAINTENANCE SULFA Critical No Longer Active Marcelle Yesi [...] Coronary atherosclerosis of unspecified type of vessel, little traverse or graft Obstructive sleep apnea 327.23 Active [...] sugar 790.29 Inactive Marcelle Key [facility] Other abnormal glucose Glucose intolerance 271.3 Active [...] Abscess, skin ICD-682.9 Inactive Andre Barreto MD Actinic keratosis ICD-702.0 Inactive Andre Barreto MD Weakness, muscle ICD-728.87 Inactive Andre Barreto MD Medication List Medication Instructions Start Date Stop Date Generic Name NDC Status Provider Patient Instruction MECLIZINE HCL 25 MG ORAL TABLET 1 po q8hr PRN Dizziness MECLIZINE HCL 81543987545 No Longer Active Andre Barreto MD Active MELOXICAM 15 MG ORAL TABLET 1 po qd PRN Pain MELOXICAM 73583404226 Active Andre Barreto MD Active ATORVASTATIN CALCIUM 40 MG ORAL TABLET 1 po qHS ATORVASTATIN CALCIUM 01554403370 No Longer Active Andre Barreto MD Active ATORVASTATIN CALCIUM 20 MG ORAL TABLET 1 po MWF ATORVASTATIN CALCIUM 84985869670 Active Andre Barreto MD Active GUAIFENESIN DM 400-20 MG ORAL TABLET 1 pill by mouth twice daily, if needed for cough DEXTROMETHORPHAN-GUAIFENESIN 61554637840 No Longer Active Andre Barreto MD Active BACTROBAN 2 % EXTERNAL OINTMENT Apply to affected area BID 05/18 MUPIROCIN 30381366887 No Longer Active Moira Price MA Active CLINDAMYCIN HCL 300 MG ORAL CAPSULE 1 po QID x 7 days CLINDAMYCIN HCL 37464669166 No Longer Active Jillina Frazell DIRECTOR FACILITIES MAINTENANCE Active BACTRIM DS 800-160 MG ORAL TABLET 1 tab by mouth twice daily 2017 TRIMETHOPRIM-SULFAMETHOXAZOLE 12595450784 No Longer Active Jillina Frazell DIRECTOR FACILITIES MAINTENANCE Active CEFDINIR 300 MG ORAL CAPSULE by mouth twice a day CEFDINIR 10082226663 No Longer Active Jillina Frazell DIRECTOR FACILITIES MAINTENANCE Active BENZONATATE 200 MG ORAL CAPSULE 1 three times a day as needed for cough 03/27 BENZONATATE 93333069844 No Longer Active Luna Prabhakar Active ZITHROMAX Z-NEVAEH 250 MG ORAL TABLET 2 today and then 1 daily for 4 days 03/27 AZITHROMYCIN 72743360346 No Longer Active Luna Prabhakar Active PREDNISONE 20 MG ORAL TABLET 2 daily for 3 days then 1 daily for 3 days 03/27 PREDNISONE 18968604366 No Longer Active Luna Prabhakar Active CLOPIDOGREL BISULFATE 75 MG ORAL TABLET 1 po qd CLOPIDOGREL BISULFATE 62750653953 Active Andre Barreto MD Active FUROSEMIDE 20 MG ORAL TABLET 1 po qd PRN Edema FUROSEMIDE 14914170119 Active Andre Barreto MD Active PROAIR HFA 108 (90 Base) MCG/ACT INHALATION AEROSOL SOLUTION 2 puffs q4hr PRN Shortness of air/Wheezing ALBUTEROL SULFATE 24067340916 Active Andre Barreto MD Active ATORVASTATIN CALCIUM 80 MG ORAL TABLET 1 po qHS ATORVASTATIN CALCIUM 75589018142 No Longer Active Andre Barreto MD Active AMBIEN 5 MG ORAL TABLET 1 po qHS PRN Insomnia ZOLPIDEM TARTRATE 47845619090 Active Andre Barreto MD Active DETROL 2 MG ORAL TABLET 1 po qd TOLTERODINE TARTRATE 40849010804 Active Andre Barreto MD Active NITROGLYCERIN 0.4 MG SUBLINGUAL TABLET SUBLINGUAL 1 SL q5min PRN Chest pain up to 3 doses NITROGLYCERIN 14077749528 Active Andre Barreto MD Active TOPROL XL 50 MG ORAL TABLET EXTENDED RELEASE 24 HOUR 1 po qd METOPROLOL SUCCINATE 16198117404 Active Andre Barreto MD Active SYMBICORT 160-4.5 MCG/ACT INHALATION AEROSOL 2 puff BID BUDESONIDE-FORMOTEROL FUMARATE 49105851093 Active Cayla VERA Active FLUOXETINE HCL 40 MG ORAL CAPSULE 1 po qd FLUOXETINE HCL 17981334441 Active Andre Barreto MD Active BENICAR HCT 40-25 MG ORAL TABLET Take one by mouth daily OLMESARTAN MEDOXOMIL-HCTZ 04475006714 No Longer Active Andre Barreto MD Active LOSARTAN POTASSIUM-HCTZ 100-25 MG ORAL TABLET 1 po qd LOSARTAN POTASSIUM-HCTZ 11353706269 Active Andre Barreto MD Active BETAMETHASONE DIPROPIONATE 0.05 % EXTERNAL OINTMENT Apply to affected areas BID for up to 2 weeks BETAMETHASONE DIPROPIONATE 38862831520 No Longer Active Andre Barreto MD Active ZOFRAN 4 MG ORAL TABLET 1 po q6hr PRN Nausea ONDANSETRON HCL 70102956451 No Longer Active Ander Barreto MD Active CIPRO 500 MG ORAL TABLET 1 tablet by mouth twice daily CIPROFLOXACIN HCL 72072691536 No Longer Active Andre Barreto MD Active SYMBICORT 160-4.5 MCG/ACT INHALATION AEROSOL 2 puffs inhaled bid BUDESONIDE-FORMOTEROL FUMARATE 41775711334 No Longer Active Andre Barreto MD Active DICLOFENAC SODIUM 75 MG ORAL TABLET DELAYED RELEASE 1 tablet by mouth twice daily DICLOFENAC SODIUM 47658099763 No Longer Active Andre Barreto MD Active PROZAC 40 MG ORAL CAPSULE 1 cap by mouth at bedtime FLUOXETINE HCL 01187223580 No Longer Active Andre aBrreto MD Active HYDROCODONE-ACETAMINOPHEN 5-325 MG ORAL TABLET 1 po q 6hr PRN Pain HYDROCODONE-ACETAMINOPHEN 60049620761 No Longer Active Andre Barreto MD Active TRAMADOL HCL 50 MG ORAL TABLET 2 po q 6 hrs prn TRAMADOL HCL 97582518381 Active Andre Barreto MD Active HYDROCODONE-ACETAMINOPHEN 5-325 MG ORAL TABLET 1 po q 6hr PRN Pain HYDROCODONE-ACETAMINOPHEN 5-325 MG ORAL TABLET 695825 HYDROCODONE- ACETAMINOPHEN Inactive PROZAC 40 MG ORAL CAPSULE 1 cap by mouth at bedtime PROZAC 40 MG ORAL CAPSULE 546658 FLUOXETINE HCL Inactive DICLOFENAC SODIUM 75 MG ORAL TABLET DELAYED RELEASE 1 tablet by mouth twice daily DICLOFENAC SODIUM 75 MG ORAL TABLET DELAYED RELEASE 067140 DICLOFENAC SODIUM Inactive SYMBICORT 160-4.5 MCG/ACT INHALATION AEROSOL 2 puffs inhaled bid SYMBICORT 160-4.5 MCG/ACT INHALATION AEROSOL BUDESONIDE-FORMOTEROL FUMARATE Inactive ZOFRAN 4 MG ORAL TABLET 1 po q6hr PRN Nausea ZOFRAN 4 MG ORAL TABLET 654231 ONDANSETRON HCL Inactive BETAMETHASONE DIPROPIONATE 0.05 % EXTERNAL OINTMENT Apply to affected areas BID for up to 2 weeks BETAMETHASONE DIPROPIONATE 0.05 % EXTERNAL OINTMENT 992960 BETAMETHASONE DIPROPIONATE Inactive BENICAR HCT 40-25 MG ORAL TABLET Take one by mouth daily BENICAR HCT 40-25 MG ORAL TABLET 366109 OLMESARTAN MEDOXOMIL-HCTZ Inactive ATORVASTATIN CALCIUM 80 MG ORAL TABLET 1 po qHS ATORVASTATIN CALCIUM 80 MG ORAL TABLET 454697 ATORVASTATIN CALCIUM Inactive PREDNISONE 20 MG ORAL TABLET 2 daily for 3 days then 1 daily for 3 days 03/27 PREDNISONE 20 MG ORAL TABLET 836410 PREDNISONE Inactive ZITHROMAX Z-NEVAEH 250 MG ORAL TABLET 2 today and then 1 daily for 4 days 03/27 ZITHROMAX Z-NEVAEH 250 MG ORAL TABLET 254569 AZITHROMYCIN Inactive BENZONATATE 200 MG ORAL CAPSULE 1 three times a day as needed for cough 03/27 BENZONATATE 200 MG ORAL CAPSULE 947289 BENZONATATE Inactive BACTRIM DS 800-160 MG ORAL TABLET 1 tab by mouth twice daily 2017 BACTRIM DS 800-160 MG ORAL TABLET 894084 TRIMETHOPRIM- SULFAMETHOXAZOLE Inactive BACTROBAN 2 % EXTERNAL OINTMENT Apply to affected area BID 05/18 BACTROBAN 2 % EXTERNAL OINTMENT MUPIROCIN Inactive GUAIFENESIN DM 400-20 MG ORAL TABLET 1 pill by mouth twice daily, if needed for cough GUAIFENESIN DM 400-20 MG ORAL TABLET 5806714 DEXTROMETHORPHAN-GUAIFENESIN Inactive ATORVASTATIN CALCIUM 40 MG ORAL TABLET 1 po qHS ATORVASTATIN CALCIUM 40 MG ORAL TABLET 282733 ATORVASTATIN CALCIUM Inactive MECLIZINE HCL 25 MG ORAL TABLET 1 po q8hr PRN Dizziness MECLIZINE HCL 25 MG ORAL TABLET 990998 MECLIZINE HCL Inactive CIPRO 500 MG ORAL TABLET 1 tablet by mouth twice daily CIPRO 500 MG ORAL TABLET 198851 CIPROFLOXACIN HCL Inactive CEFDINIR 300 MG ORAL CAPSULE by mouth twice a day CEFDINIR 300 MG ORAL CAPSULE 267490 CEFDINIR Inactive CLINDAMYCIN HCL 300 MG ORAL CAPSULE 1 po QID x 7 days CLINDAMYCIN HCL 300 MG ORAL CAPSULE 014799 CLINDAMYCIN HCL Inactive Advance Directives Directive Description [...] mg/g{creat} 0-29 Lab Report: CBC - Hematology mean corpuscular hemoglobin, RBC 30.0 pg 27.0-31.2 mean corpuscular hemoglobin concentration, RBC 32.5 G/DL % 31.8- 35.4 red blood cell distribution width 13.4 % 11.6-14.8 platelet count 263 10^3/MM^3 10*3/mm3 512-851 7928/07/24 mean corpuscular volume, RBC 92 fL 80-97 hematocrit, blood 41.5 % 37.0-47.0 hemoglobin, blood 13.5 g/dL 12.0-16.0 erythrocyte (RBC) count 4.49 10^6/MM^3 10*6/mm3 3.80-5.80 leukocyte count, blood 6.7 10^3/MM^3 10*3/mm3 4.6-10.2 leukocyte count, blood 8.1 10^3/MM^3 10*3/mm3 4.6-10.2 [...] Panel - Chemistry sodium, serum 139 mmol/L 006-574 3213/05/04 carbon dioxide, venous blood 28.7 mmol/L 21.0-32.0 [...] 6.2 % 4.3-6.0 cholesterol, serum 302 mg/dL 646-321 9607/05/04 triglyceride, serum, fasting 145 mg/dL 30-200 HDL cholesterol, serum 61 mg/dL 32-60 LDL cholesterol, serum 212 mg/dL 0-130 Lab Report: HGBA1C, Lipid Panel, Comp. Metabolic Panel - Chemistry hemoglobin A1C, blood, as % of total hemoglobin 6.2 % 4.3-6.0 cholesterol, serum 229 mg/dL 718-586 4818/07/24 triglyceride, serum, fasting 106 mg/dL 30-200 HDL cholesterol, serum 60 mg/dL 32-60 LDL cholesterol, serum 148 mg/dL 0-130 sodium, serum 139 mmol/L 386-289 5406/07/24 carbon dioxide, venous blood 34.8 mmol/L 21.0-32.0 [...] Panel - Chemistry cholesterol, serum 275 mg/dL 688-700 9274/11/07 triglyceride, serum, fasting 166 mg/dL 30-200 HDL cholesterol, serum 62 mg/dL 32-60 LDL cholesterol, serum 180 mg/dL 0-130 sodium, serum 141 mmol/L 284-457 0571/11/07 carbon dioxide, venous blood 26.3 mmol/L 21.0-32.0 [...] 0-19 Encounters Code Encounter Date Provider Facility CPT-61610 Level 4 Est. Patient 09:44:36 CDT Andre Barreto MD [facility] CPT-81908 Level 4 Est. Patient 10:07:14 CDT Andre Barreto MD [facility] CPT-30789 Level 3 Est. Patient 14:29:01 CDT Esa Jackson MD [facility] CPT-68435 Level 3 Est. Patient 14:06:16 CDT Andre Barreto MD [facility] CPT-20177 Level 3 Est. Patient 09:16:36 CDT [facility] CPT-22375 Level 3 Est. Patient 09:24:01 BLASTING HELPER [facility] CPT-54315 Level 3 Est. Patient 13:01:07 BLASTING HELPER Solitario Howe MD [facility] CPT-59127 Level 4 Est. Patient 10:26:48 BLASTING HELPER Andre Barreto MD [facility] CPT-79251 Level 4 Est. Patient 09:45:06 CDT Andre Barreto MD [facility] CPT-15703 Level 4 Est. Patient 11:53:39 BLASTING HELPER Andre Barreto MD [facility] CPT-03759 Level 4 Est. Patient 14:21:31 CDT Andre Barreto MD [facility] CPT-22358 Level 4 Est. Patient 15:24:17 CDT Andre Barreto MD [facility] CPT-11312 Level 3 Est. Patient 10:36:40 CDT Andre Barreto MD [facility] CPT-51923 Level 4 Est. Patient 11:27:43 CDT Andre Barreto MD [facility] CPT-78651 Level 3 Est. Patient 10:57:31 BLASTING HELPER Andre Barreto MD [facility] CPT-49227 Level 3 Est. Patient 13:53:13 BLASTING HELPER Andre Barreto MD [facility] CPT-00110 Level 3 Est. Patient 09:16:12 CDT Andre Barreto MD [facility] CPT-38547 Level 3 Est. Patient 14:50:35 CDT Andre Barreto MD [facility] Procedures Code Procedure Name Date Entry Date Standard Description CPT-14439 Bone Density - XRAY USE ONLY 11:55:39 CDT CPT-70143 Postop F/U Visit 14:31:27 CDT CPT-91532 Postop F/U Visit 14:30:20 CDT CPT-26661 Sono pelvis coley bladder only - XRAY USE ONLY 15:07:39 CDT CPT-37110 First Vx - Ix admin for Medicare patients 13:56:44 BLASTING HELPER CPT-96140 Zostavax Subcutaneous Solution Reconstituted 29831 UNT/0.65ML 12/22 13:56:44 BLASTING HELPER CPT-G0009 Administration of Pneumococcal Vaccine 10:12:50 CDT CPT-09926 Pneumovax 23 Injection Injectable 25 MCG/0.5ML 10:12:50 CDT CPT-G0439 Subsequent Annual Wellness Exam 09:49:25 CDT CPT-48863 First Vx - Ix admin for Medicare patients 17:55:11 BLASTING HELPER CPT-48552 Fluzone High-Dose Intramuscular Suspension 17:55:11 BLASTING HELPER CPT-59238 Venipuncture Draw Fee 14:11:36 CDT CPT-83352 Lipid - LAB USE ONLY 14:11:36 CDT CPT-97462 CMP - LAB USE ONLY 14:11:36 CDT CPT-G0438 Initial Annual Wellness Exam 13:29:06 CDT CPT-G0009 Administration of Pneumococcal Vaccine 13:26:57 CDT CPT-27665 Prevnar 13 Intramuscular Suspension 13:26:56 CDT 08/19 CPT-19104 Bone Density - XRAY USE ONLY 09:30:16 CDT CPT-Cryo Cryotherapy 08:59:26 BLASTING HELPER CPT-Cryo Cryotherapy 08:46:02 CDT CPT-97060 Chest 2V Frontal and Lat 14:02:13 BLASTING HELPER
--- OUTSIDE RECORDS SUMMARY | 2018-03-16 19:20 | XMS REPORT | Clinical Summary ---
Author Author Admin, EDUARDO Organization [employer] Address Unknown Phone Unavailable Allergies, Adverse Reactions, Alerts Allergy Name Reaction Description Start Date Severity Status Provider SULFA Mild No Longer Active Jillina Frazell [employer] PENICILLIN Mild No Longer Active Jillina Frazell [employer] ZINC Mild No Longer Active Jillina Frazell [employer] SULFA Critical No Longer Active Marcelle Yesi [...] Coronary atherosclerosis of unspecified type of vessel, [place] or graft Obstructive sleep apnea 327.23 Active Anrde Barreto MD Obstructive sleep apnea (adult) (pediatric) [...] 1 po q8hr PRN Dizziness MECLIZINE HCL 21728428827 No Longer Active Andre Barreto MD Active MELOXICAM 15 MG ORAL TABLET 1 po qd PRN Pain MELOXICAM 38593370997 Active Andre Barreto MD Active ATORVASTATIN CALCIUM 40 MG ORAL TABLET 1 po qHS ATORVASTATIN CALCIUM 04137327696 No Longer Active Andre Barreto MD Active ATORVASTATIN CALCIUM 20 MG ORAL TABLET 1 po MWF ATORVASTATIN CALCIUM 41805399196 Active Andre Barreto MD Active GUAIFENESIN DM 400-20 MG ORAL TABLET 1 pill by mouth twice daily, if needed for cough DEXTROMETHORPHAN-GUAIFENESIN 00643851202 No Longer Active Andre Barreto MD Active BACTROBAN 2 % EXTERNAL OINTMENT Apply to affected area BID 05/18 MUPIROCIN 27778518964 No Longer Active Moira Price MA Active CLINDAMYCIN HCL 300 MG ORAL CAPSULE 1 po QID x 7 days CLINDAMYCIN HCL 65733830847 No Longer Active Jillina Frazell [employer] Active BACTRIM DS 800-160 MG ORAL TABLET 1 tab by mouth twice daily 2017 TRIMETHOPRIM-SULFAMETHOXAZOLE 41911158547 No Longer Active Jillina Frazell [employer] Active CEFDINIR 300 MG ORAL CAPSULE by mouth twice a day CEFDINIR 25016187720 No Longer Active Jillina Frazell [employer] Active BENZONATATE 200 MG ORAL CAPSULE 1 three times a day as needed for cough 03/27 BENZONATATE 24003200704 No Longer Active Luna Prabhakar Active ZITHROMAX Z-NEVAEH 250 MG ORAL TABLET 2 today and then 1 daily for 4 days 03/27 AZITHROMYCIN 31555767597 No Longer Active Luna Prabhakar Active PREDNISONE 20 MG ORAL TABLET 2 daily for 3 days then 1 daily for 3 days 03/27 PREDNISONE 18028702743 No Longer Active Luna Prabhakar Active CLOPIDOGREL BISULFATE 75 MG ORAL TABLET 1 po qd CLOPIDOGREL BISULFATE 20322953761 Active Andre Barreto MD Active FUROSEMIDE 20 MG ORAL TABLET 1 po qd PRN Edema FUROSEMIDE 99838551907 Active Andre Barreto MD Active PROAIR HFA 108 (90 Base) MCG/ACT INHALATION AEROSOL SOLUTION 2 puffs q4hr PRN Shortness of air/Wheezing ALBUTEROL SULFATE 86921261168 Active Andre Barreto MD Active ATORVASTATIN CALCIUM 80 MG ORAL TABLET 1 po qHS ATORVASTATIN CALCIUM 71223915261 No Longer Active Andre Barreto MD Active AMBIEN 5 MG ORAL TABLET 1 po qHS PRN Insomnia ZOLPIDEM TARTRATE 72111636096 Active Andre Barreto MD Active DETROL 2 MG ORAL TABLET 1 po qd TOLTERODINE TARTRATE 12327450991 Active Andre Barreto MD Active NITROGLYCERIN 0.4 MG SUBLINGUAL TABLET SUBLINGUAL 1 SL q5min PRN Chest pain up to 3 doses NITROGLYCERIN 19777189625 Active Andre Barreto MD Active TOPROL XL 50 MG ORAL TABLET EXTENDED RELEASE 24 HOUR 1 po qd METOPROLOL SUCCINATE 01850908008 Active Andre Barreto MD Active SYMBICORT 160-4.5 MCG/ACT INHALATION AEROSOL 2 puff BID BUDESONIDE-FORMOTEROL FUMARATE 48111973742 Active Cayla VERA Active FLUOXETINE HCL 40 MG ORAL CAPSULE 1 po qd FLUOXETINE HCL 31776873911 Active Andre Barreto MD Active BENICAR HCT 40-25 MG ORAL TABLET Take one by mouth daily OLMESARTAN MEDOXOMIL-HCTZ 30015583404 No Longer Active Andre Barreto MD Active LOSARTAN POTASSIUM-HCTZ 100-25 MG ORAL TABLET 1 po qd [place] POTASSIUM-HCTZ 17280684099 Active Andre Barreto MD Active BETAMETHASONE DIPROPIONATE 0.05 % EXTERNAL OINTMENT Apply to affected areas BID for up to 2 weeks BETAMETHASONE DIPROPIONATE 92615160581 No Longer Active Andre Barreto MD Active ZOFRAN 4 MG ORAL TABLET 1 po q6hr PRN Nausea ONDANSETRON HCL 11440715839 No Longer Active Andre Barreto MD Active CIPRO 500 MG ORAL TABLET 1 tablet by mouth twice daily CIPROFLOXACIN HCL 01829631238 No Longer Active Andre Barreto MD Active SYMBICORT 160-4.5 MCG/ACT INHALATION AEROSOL 2 puffs inhaled bid BUDESONIDE-FORMOTEROL FUMARATE 02523923038 No Longer Active Andre Barreto MD Active DICLOFENAC SODIUM 75 MG ORAL TABLET DELAYED RELEASE 1 tablet by mouth twice daily DICLOFENAC SODIUM 10341830946 No Longer Active Andre Barreto MD Active PROZAC 40 MG ORAL CAPSULE 1 cap by mouth at bedtime FLUOXETINE HCL 64495996295 No Longer Active Andre Barreto MD Active HYDROCODONE-ACETAMINOPHEN 5-325 MG ORAL TABLET 1 po q 6hr PRN Pain HYDROCODONE-ACETAMINOPHEN 73853612104 No Longer Active Andre Barreto MD Active TRAMADOL HCL 50 MG ORAL TABLET 2 po q 6 hrs prn TRAMADOL HCL 44565762129 Active Andre Barreto MD Active HYDROCODONE-ACETAMINOPHEN 5-325 MG ORAL TABLET 1 po q 6hr PRN Pain HYDROCODONE-ACETAMINOPHEN 5-325 MG ORAL TABLET 724936 HYDROCODONE- ACETAMINOPHEN Inactive PROZAC 40 MG ORAL CAPSULE 1 cap by mouth at bedtime PROZAC 40 MG ORAL CAPSULE 532026 FLUOXETINE HCL Inactive DICLOFENAC SODIUM 75 MG ORAL TABLET DELAYED RELEASE 1 tablet by mouth twice daily DICLOFENAC SODIUM 75 MG ORAL TABLET DELAYED RELEASE 702915 DICLOFENAC SODIUM Inactive SYMBICORT 160-4.5 MCG/ACT INHALATION AEROSOL 2 puffs inhaled bid SYMBICORT 160-4.5 MCG/ACT INHALATION AEROSOL BUDESONIDE-FORMOTEROL FUMARATE Inactive ZOFRAN 4 MG ORAL TABLET 1 po q6hr PRN Nausea ZOFRAN 4 MG ORAL TABLET 675788 ONDANSETRON HCL Inactive BETAMETHASONE DIPROPIONATE 0.05 % EXTERNAL OINTMENT Apply to affected areas BID for up to 2 weeks BETAMETHASONE DIPROPIONATE 0.05 % EXTERNAL OINTMENT 396894 BETAMETHASONE DIPROPIONATE Inactive BENICAR HCT 40-25 MG ORAL TABLET Take one by mouth daily BENICAR HCT 40-25 MG ORAL TABLET 378476 OLMESARTAN MEDOXOMIL-HCTZ Inactive ATORVASTATIN CALCIUM 80 MG ORAL TABLET 1 po qHS ATORVASTATIN CALCIUM 80 MG ORAL TABLET 788689 ATORVASTATIN CALCIUM Inactive PREDNISONE 20 MG ORAL TABLET 2 daily for 3 days then 1 daily for 3 days 03/27 PREDNISONE 20 MG ORAL TABLET 233715 PREDNISONE Inactive ZITHROMAX Z-NEVAEH 250 MG ORAL TABLET 2 today and then 1 daily for 4 days 03/27 ZITHROMAX Z-NEVAEH 250 MG ORAL TABLET 977611 AZITHROMYCIN Inactive BENZONATATE 200 MG ORAL CAPSULE 1 three times a day as needed for cough 03/27 BENZONATATE 200 MG ORAL CAPSULE 293489 BENZONATATE Inactive BACTRIM DS 800-160 MG ORAL TABLET 1 tab by mouth twice daily 2017 BACTRIM DS 800-160 MG ORAL TABLET 824409 TRIMETHOPRIM- SULFAMETHOXAZOLE Inactive BACTROBAN 2 % EXTERNAL OINTMENT Apply to affected area BID 05/18 BACTROBAN 2 % EXTERNAL OINTMENT MUPIROCIN Inactive GUAIFENESIN DM 400-20 MG ORAL TABLET 1 pill by mouth twice daily, if needed for cough GUAIFENESIN DM 400-20 MG ORAL TABLET 2023320 DEXTROMETHORPHAN-GUAIFENESIN Inactive ATORVASTATIN CALCIUM 40 MG ORAL TABLET 1 po qHS ATORVASTATIN CALCIUM 40 MG ORAL TABLET 538266 ATORVASTATIN CALCIUM Inactive MECLIZINE HCL 25 MG ORAL TABLET 1 po q8hr PRN Dizziness MECLIZINE HCL 25 MG ORAL TABLET 447322 MECLIZINE HCL Inactive CIPRO 500 MG ORAL TABLET 1 tablet by mouth twice daily CIPRO 500 MG ORAL TABLET 050535 CIPROFLOXACIN HCL Inactive CEFDINIR 300 MG ORAL CAPSULE by mouth twice a day CEFDINIR 300 MG ORAL CAPSULE 987949 CEFDINIR Inactive CLINDAMYCIN HCL 300 MG ORAL CAPSULE 1 po QID x 7 days CLINDAMYCIN HCL 300 MG ORAL CAPSULE 929266 CLINDAMYCIN HCL Inactive Advance Directives Directive Description [...] Panel - Chemistry sodium, serum 139 mmol/L 804-391 6378/05/04 carbon dioxide, venous blood 28.7 mmol/L 21.0-32.0 [...] 6.2 % 4.3-6.0 cholesterol, serum 302 mg/dL 951-363 3689/05/04 triglyceride, serum, fasting 145 mg/dL 30-200 HDL cholesterol, serum 61 mg/dL 32-60 LDL cholesterol, serum 212 mg/dL 0-130 Lab Report: HGBA1C, Lipid Panel, Comp. Metabolic Panel - Chemistry hemoglobin A1C, blood, as % of total hemoglobin 6.2 % 4.3-6.0 cholesterol, serum 229 mg/dL 232-405 2126/07/24 triglyceride, serum, fasting 106 mg/dL 30-200 HDL cholesterol, serum 60 mg/dL 32-60 LDL cholesterol, serum 148 mg/dL 0-130 sodium, serum 139 mmol/L 475-348 4933/07/24 carbon dioxide, venous blood 34.8 mmol/L 21.0-32.0 potassium, serum 4.6 mmol/L 3.5-5.2 chloride, serum 101 mmol/L 98-107 blood glucose 112 mg/dL 65-110 urea nitrogen, blood 22 mg/dL 7-18 creatinine, serum 1.12 mg/dL 0.60-1.30 alanine aminotransferase (SGPT), serum 32 U/L -78 aspartate aminotransferase (SGOT), serum 22 U/L 15-37 calcium, serum 9.4 mg/dL 8.5-10.1 bilirubin, serum, total 0.50 mg/dL 0.00-1.00 Lab Report: Lipid Panel, Comp. Metabolic Panel - Chemistry cholesterol, serum 275 mg/dL 936-680 0492/11/07 triglyceride, serum, fasting 166 mg/dL 30-200 HDL cholesterol, serum 62 mg/dL 32-60 LDL cholesterol, serum 180 mg/dL 0-130 sodium, serum 141 mmol/L 540-209 3867/11/07 carbon dioxide, venous blood 26.3 mmol/L 21.0-32.0 [...] 0-19 Encounters Code Encounter Date Provider Facility CPT-99267 Level 4 Est. Patient 09:44:36 CDT Andre Barreto MD [facility] CPT-67823 Level 4 Est. Patient 10:07:14 CDT Andre Barreto MD [facility] CPT-93707 Level 3 Est. Patient 14:29:01 CDT Esa Jackson MD [facility] CPT-50700 Level 3 Est. Patient 14:06:16 CDT Andre Barreto MD [facility] CPT-01194 Level 3 Est. Patient 09:16:36 CDT David King [facility] CPT-21415 Level 3 Est. Patient 09:24:01 MULTIPLE 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 David King [facility] CPT-41500 Level 3 Est. Patient 13:01:07 MULTIPLE 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 Solitario Howe MD [facility] CPT-71883 Level 4 Est. Patient 10:26:48 MULTIPLE 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 Andre Barreto MD [facility] CPT-32814 Level 4 Est. Patient 09:45:06 CDT Andre Barreto MD [facility] CPT-62368 Level 4 Est. Patient 11:53:39 MULTIPLE 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 Andre Barreto MD [facility] CPT-37456 Level 4 Est. Patient 14:21:31 CDT Andre Barreto MD [facility] CPT-10182 Level 4 Est. Patient 15:24:17 CDT Andre Barreto MD [facility] CPT-03801 Level 3 Est. Patient 10:36:40 CDT Andre Barreto MD [facility] CPT-91352 Level 4 Est. Patient 11:27:43 CDT Andre Barreto MD [facility] CPT-20607 Level 3 Est. Patient 10:57:31 MULTIPLE 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 Andre Barreto MD [facility] CPT-52966 Level 3 Est. Patient 13:53:13 MULTIPLE 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 Andre Barreto MD [facility] CPT-14558 Level 3 Est. Patient 09:16:12 CDT Andre Barreto MD [facility] CPT-67836 Level 3 Est. Patient 14:50:35 CDT Andre Barreto MD [facility] Procedures Code Procedure Name Date Entry Date Standard Description CPT-10478 Postop F/U Visit 14:31:27 CDT CPT-39668 Postop F/U Visit 14:30:20 CDT CPT-84811 Sono pelvis coley bladder only - XRAY USE ONLY 15:07:39 CDT CPT-23316 First Vx - Ix admin for Medicare patients 13:56:44 MULTIPLE 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 CPT-21236 Zostavax Subcutaneous Solution Reconstituted 34155 UNT/0.65ML 12/22 13:56:44 MULTIPLE 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 CPT-G0009 Administration of Pneumococcal Vaccine 10:12:50 CDT CPT-50903 Pneumovax 23 Injection Injectable 25 MCG/0.5ML 10:12:50 CDT CPT-G0439 [facility] Annual Wellness Exam 09:49:25 CDT CPT-70828 First Vx - Ix admin for Medicare patients 17:55:11 MULTIPLE 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 CPT-15533 Fluzone High-Dose Intramuscular Suspension 17:55:11 MULTIPLE 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 CPT-31824 Venipuncture Draw Fee 14:11:36 CDT CPT-10348 Lipid - LAB USE ONLY 14:11:36 CDT CPT-36612 CMP - LAB USE ONLY 14:11:36 CDT CPT-G0438 Initial Annual Wellness Exam 13:29:06 CDT CPT-G0009 Administration of Pneumococcal Vaccine 13:26:57 CDT CPT-98964 Prevnar 13 Intramuscular Suspension 13:26:56 CDT 08/19 CPT-54927 Bone Density - XRAY USE ONLY 09:30:16 CDT CPT-Cryo Cryotherapy 08:59:26 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
--- OUTSIDE RECORDS SUMMARY | 2018-03-16 19:21 | XMS REPORT | Clinical Summary ---
Author Author Admin, EDUARDO Organization [facility] Address Unknown Phone Unavailable Allergies, Adverse Reactions, Alerts Allergy Name Reaction Description Start Date Severity Status Provider SULFA Critical Active Marcelle Yesi RMA PENICILLIN Critical Active Marcelle Yesi RMA ZINC Critical Active Marcelle Yesi RMA Conditions or Problems Problem Name Problem Code Onset Date Status Entry Date Provider Comment Standard Description Annotate Hyperlipidemia 272.4 Active Andre Barreto MD Other and unspecified hyperlipidemia Hypertension 401.9 Active Andre Barreto MD Unspecified essential hypertension DYSPNEA 786.09 Resolved Andre Barreto MD Other dyspnea and respiratory abnormality FATIGUE 780.79 Resolved Andre Barreto MD Other malaise and fatigue DYSPNEA 786.05 Resolved Andre Barreto MD Shortness of breath CORONARY ARTERY DISEASE 414.00 Active Andre Barreto MD Coronary atherosclerosis of unspecified type of vessel, [place] or graft OBSTRUCTIVE SLEEP APNEA 327.23 Active Andre Barreto MD Obstructive sleep apnea (adult) (pediatric) HEALTH SCREENING V70.0 Active Andre Barreto MD Routine general medical examination at a health care facility Fever 780.60 Resolved Andre Barreto MD Fever, unspecified Actinic keratosis 702.0 Active Andre Barreto MD Actinic keratosis Seborrheic keratosis 702.19 Active Andre Barreto MD Other seborrheic keratosis Skin [...] localized, involving lower leg Weakness, muscle 728.87 Active Andre Barreto MD Muscle weakness (generalized) DYSPNEA ICD-786.09 Inactive Andre Barreto MD 2012 FATIGUE ICD-780.79 Inactive Andre Barreto MD 2012 DYSPNEA ICD-786.05 Inactive Andre Barreto MD 2012 Fever ICD-780.60 Inactive Andre Barreto MD 05/23 Skin tag ICD-701.9 Inactive Andre Barreto MD 2014 Medication List Medication Instructions Start Date Stop Date Generic Name NDC Status Provider Patient Instruction LIPITOR 40 MG TAB Take 1 tab by mouth daily ATORVASTATIN CALCIUM 69385313981 Active Andre Barreto MD Active ZOFRAN 4 MG TABS 1 po q6hr PRN Nausea ONDANSETRON HCL 04947342961 No Longer Active Andre Barreto MD Active CIPRO 500 MG TAB 1 tablet by mouth twice daily CIPROFLOXACIN HCL 53294148437 No Longer Active Andre Barreto MD Active SYMBICORT 160-4.5 MCG/ACT AERO 2 puffs inhaled bid BUDESONIDE- FORMOTEROL FUMARATE 04788411720 No Longer Active Andre Barreto MD Active LASIX 20 MG TAB 1 tablet by mouth daily PRN FUROSEMIDE 88577206811 Active Andre Barreto MD Active TOPROL XL 25 MG [id number] Take one by mouth daily METOPROLOL SUCCINATE 33081142870 Active Andre Barreto MD Active PLAVIX 75 MG TABS 1 tablet by mouth daily CLOPIDOGREL BISULFATE 11603385664 Active Andre Barreto MD Active NITROSTAT 0.4 MG SL TAB disolve 1 under tongue repeat if needed NITROGLYCERIN 77557719187 Active Andre Barreto MD Active DICLOFENAC SODIUM 75 MG TBEC 1 tablet by mouth twice daily DICLOFENAC SODIUM 00479149053 No Longer Active Andre Barreto MD Active FLUOXETINE HCL 20 MG CAPS TAKE 3 CAPSULES BY MOUTH ONCE DAILY. FLUOXETINE HCL 33828299052 Active Andre Barreto MD Active PROZAC 40 MG CAPS 1 cap by mouth at bedtime FLUOXETINE HCL 26444698593 No Longer Active Andre Barreto MD Active HYDROCODONE-ACETAMINOPHEN 5-325 MG TABS 1 po q 6hr PRN Pain HYDROCODONE-ACETAMINOPHEN 41250423609 No Longer Active Andre Barreto MD Active TRAMADOL HCL 50 MG TABS 2 po q 6 hrs prn TRAMADOL HCL 36678999248 Active Andre Barreto MD Active AMBIEN 5 MG TABS 1 po a hs prn ZOLPIDEM TARTRATE 44441451107 Active Andre Barreto MD Active BENICAR HCT 40-25 MG TABS Take one by mouth daily OLMESARTAN MEDOXOMIL- HCTZ 91710223120 Active Andre Barreto MD Active HYDROCODONE-ACETAMINOPHEN 5-325 MG TABS 1 po q 6hr PRN Pain HYDROCODONE-ACETAMINOPHEN 5-325 MG TABS 389047 HYDROCODONE-ACETAMINOPHEN Inactive PROZAC 40 MG CAPS 1 cap by mouth at bedtime PROZAC 40 MG CAPS 372640 FLUOXETINE HCL Inactive DICLOFENAC SODIUM 75 MG TBEC 1 tablet by mouth twice daily DICLOFENAC SODIUM 75 MG TBEC 857482 DICLOFENAC SODIUM Inactive SYMBICORT 160-4.5 MCG/ACT AERO 2 puffs inhaled bid SYMBICORT 160-4.5 MCG/ACT AERO BUDESONIDE-FORMOTEROL FUMARATE Inactive ZOFRAN 4 MG TABS 1 po q6hr PRN Nausea ZOFRAN 4 MG TABS 379429 ONDANSETRON HCL Inactive CIPRO 500 MG TAB 1 tablet by mouth twice daily CIPRO 500 MG TAB 398282 CIPROFLOXACIN HCL Inactive Vital Signs Date Name Value Unit Range Description blood pressure, diastolic - 8462-4 77 mm[Hg] BP pat blood pressure, systolic - 8480-6 119 mm[Hg] BP sys pulse rate E&M - 8867-4 59 /min Heart rate temperature E&M 98.7 [degF] Body temperature weight E&M - 3141-9 261 [lb_av] Weight Measured blood pressure, diastolic - 8462-4 83 mm[Hg] BP pat blood pressure, systolic - 8480-6 132 mm[Hg] BP sys pulse rate E&M - 8867-4 75 /min Heart rate weight E&M - 3141-9 270.1 [lb_av] Weight Measured blood pressure, diastolic - 8462-4 83 mm[Hg] BP pat blood pressure, systolic - 8480-6 169 mm[Hg] BP sys pulse rate E&M - 8867-4 80 /min Heart rate temperature E&M 99.0 [degF] Body temperature weight E&M - 3141-9 276.2 [lb_av] Weight Measured Diagnostic Results Date Name Value Unit Range Description Lab Report: Comp. Metabolic Panel, Lipid Panel, CBC W/DIFF - Chemistry sodium, serum 145 mmol/L 838-728 2458/12/19 potassium, serum 4.3 mmol/L 3.5-5.2 chloride, serum 104 mmol/L 98-107 carbon dioxide, venous blood 29.9 mmol/L 21.0-32.0 blood glucose 121 mg/dL 65-110 urea nitrogen, blood 17 mg/dL 7-18 creatinine, serum 1.20 mg/dL 0.60-1.30 alanine aminotransferase (SGPT), serum 40 U/L 12-78 aspartate aminotransferase (SGOT), serum 25 U/L 15-37 calcium, serum 9.2 mg/dL 8.5-10.1 bilirubin, serum, total 0.50 mg/dL 0.00-1.00 cholesterol, serum 174 mg/dL 496-300 0485/12/19 triglyceride, serum, fasting 129 mg/dL 30-200 HDL cholesterol, serum 55 mg/dL 32-96 LDL cholesterol, serum 93 mg/dL 0-130 Lab Report: Comp. Metabolic Panel, Lipid Panel, CBC W/DIFF - Hematology leukocyte count, blood 8.6 10^3/MM^3 10*3/mm3 4.6-10.2 neutrophils as percent of blood leukocytes 62.2 % 42.2-75.2 monocytes as percent of blood leukocytes 5.5 % 1.7-9.3 lymphocytes as percent of blood leukocytes 28.1 % 20.5-51.1 erythrocyte (RBC) count 4.48 10^6/MM^3 10*6/mm3 4.04-5.48 hemoglobin, blood 14.3 g/dL 12.0-16.0 hematocrit, blood 42.6 % 36.0-46.0 mean corpuscular volume, RBC 95 fL 80-97 mean corpuscular hemoglobin, RBC 31.8 pg 27.0-31.2 mean corpuscular hemoglobin concentration, RBC 33.5 G/DL % 31.8- 35.4 red blood cell distribution width 13.6 % 11.6-14.8 platelet count 256 10^3/MM^3 10*3/mm3 142-424 Lab Report: HGBA1C - Chemistry hemoglobin A1C, blood, as % of total hemoglobin 5.9 % 4.3-6.0 hemoglobin A1C, blood, as % of total hemoglobin 6.0 % 4.3-6.0 Encounters Code Encounter Date Provider Facility CPT-26992 Level 4 Est. Patient 11:27:43 CDT Andre Barreto MD [facility] CPT-96264 Level 3 Est. Patient 10:57:31 [employer] Andre Barreto MD [facility] CPT-51863 Level 3 Est. Patient 13:53:13 [employer] Andre Barreto MD [facility] CPT-28229 Level 3 Est. Patient 09:16:12 CDT Andre Barreto MD [facility] CPT-62637 Level 3 Est. Patient 14:50:35 CDT Andre Barreto MD [facility] Procedures Code Procedure Name Date Entry Date Standard Description CPT-Cryo Cryotherapy 08:59:26 [employer] CPT-Cryo Cryotherapy 08:46:02 CDT CPT-61254 Chest 2V Frontal and Lat 14:02:13 [employer]
--- OUTSIDE RECORDS SUMMARY | 2018-03-16 19:21 | XMS REPORT | Clinical Summary ---
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, supplemental oxygen Osteopenia 733.90 Active Pushpa Beverly APRN Disorder of bone and cartilage, unspecified FATIGUE ICD-780.79 Inactive Andre Barreto MD 2012 DYSPNEA ICD-786.05 Inactive Andre Barreto MD 2012 Fever ICD-780.60 Inactive Andre Barreto MD 05/23 Actinic keratosis ICD-702.0 Inactive Andre Barreto MD Seborrheic keratosis ICD-702.19 Inactive Andre Barreto MD Skin tag ICD-701.9 Inactive Andre Barreto MD 2014 Weakness, muscle ICD-728.87 Inactive Ander Barreto MD Dyshidrotic eczema, hands ICD-705.81 Inactive Andre Barreto MD Postmenopausal status ICD-V49.81 Inactive Andre Barreto MD Family history of osteoporosis ICD-V17.81 Inactive Andre Barreto MD Unsteady gait ICD-781.2 Inactive Andre Barreto MD DYSPNEA ICD-786.09 Inactive Andre Barreto MD 2012 Medication List Medication Instructions Start Date Stop Date Generic Name NDC Status Provider Patient Instruction DETROL 2 MG ORAL TABS 1 po qd TOLTERODINE TARTRATE 82150310627 Active Andre Barreto MD Active NITROGLYCERIN 0.4 MG SL SUBL 1 SL q5min PRN Chest pain up to 3 doses NITROGLYCERIN 55839715890 Active Andre Barreto MD Active TOPROL XL 50 MG ORAL AV56R-YOL 1 po qd METOPROLOL SUCCINATE 26703533573 Active Andre Barreto MD Active PLAVIX 75 MG TABS 1 po qd CLOPIDOGREL BISULFATE 49467051700 Active Andre Barreto MD Active LASIX 20 MG TAB 1 po qd PRN Edema FUROSEMIDE 03874279390 Bar Barreto MD Active ATORVASTATIN CALCIUM 80 MG TABS 1 po qHS ATORVASTATIN CALCIUM 76262054037 Active Andre Barreto MD Active SYMBICORT 160-4.5 MCG/ACT AERO 2 puff BID BUDESONIDE- FORMOTEROL FUMARATE 89233568438 Active Andre Barreto MD Active PROAIR HFA 108 (90 BASE) MCG/ACT AERS 2 puffs four times a day as needed 2015 ALBUTEROL SULFATE 37845962128 Active Andre Barreto MD Active FLUOXETINE HCL 40 MG ORAL CAPS 1 po qd FLUOXETINE HCL 86097148126 Active Andre Barreto MD Active BENICAR HCT 40-25 MG TABS Take one by mouth daily OLMESARTAN MEDOXOMIL-HCTZ 24872712016 No Longer Active Andre Barreto MD Active LOSARTAN POTASSIUM-HCTZ 100-25 MG TABS 1 po qd LOSARTAN POTASSIUM-HCTZ 30256010927 Active Andre Barreto MD Active BETAMETHASONE DIPROPIONATE 0.05 % OINT Apply to affected areas BID for up to 2 weeks BETAMETHASONE DIPROPIONATE 84793332849 No Longer Active Andre Barreto MD Active ZOFRAN 4 MG TABS 1 po q6hr PRN Nausea ONDANSETRON HCL 89128955047 No Longer Active Andre Barreto MD Active CIPRO 500 MG TAB 1 tablet by mouth twice daily CIPROFLOXACIN HCL 62436938754 No Longer Active Andre Barreto MD Active SYMBICORT 160-4.5 MCG/ACT AERO 2 puffs inhaled bid BUDESONIDE- FORMOTEROL FUMARATE 87118198754 No Longer Active Andre Barreto MD Active DICLOFENAC SODIUM 75 MG TBEC 1 tablet by mouth twice daily DICLOFENAC SODIUM 87660794688 No Longer Active Andre Barreto MD Active PROZAC 40 MG CAPS 1 cap by mouth at bedtime FLUOXETINE HCL 11515074797 No Longer Active Andre Barreto MD Active HYDROCODONE-ACETAMINOPHEN 5-325 MG TABS 1 po q 6hr PRN Pain HYDROCODONE-ACETAMINOPHEN 52052199429 No Longer Active Andre Barreto MD Active TRAMADOL HCL 50 MG TABS 2 po q 6 hrs prn TRAMADOL HCL 61154369536 Active Andre Barreto MD Active AMBIEN 5 MG TABS 1 po a hs prn ZOLPIDEM TARTRATE 04130492043 Active Andre Barreto MD Active HYDROCODONE-ACETAMINOPHEN 5-325 MG TABS 1 po q 6hr PRN Pain HYDROCODONE-ACETAMINOPHEN 5-325 MG TABS 066627 HYDROCODONE-ACETAMINOPHEN Inactive PROZAC 40 MG CAPS 1 cap by mouth at bedtime PROZAC 40 MG CAPS 630656 FLUOXETINE HCL Inactive DICLOFENAC SODIUM 75 MG TBEC 1 tablet by mouth twice daily DICLOFENAC SODIUM 75 MG TBEC 846348 DICLOFENAC SODIUM Inactive SYMBICORT 160-4.5 MCG/ACT AERO 2 puffs inhaled bid SYMBICORT 160-4.5 MCG/ACT AERO BUDESONIDE-FORMOTEROL FUMARATE Inactive ZOFRAN 4 MG TABS 1 po q6hr PRN Nausea ZOFRAN 4 MG TABS 912902 ONDANSETRON HCL Inactive BETAMETHASONE DIPROPIONATE 0.05 % OINT Apply to affected areas BID for up to 2 weeks BETAMETHASONE DIPROPIONATE 0.05 % OINT 326079 BETAMETHASONE DIPROPIONATE Inactive BENICAR HCT 40-25 MG TABS Take one by mouth daily BENICAR HCT 40-25 MG TABS 781095 OLMESARTAN MEDOXOMIL-HCTZ Inactive CIPRO 500 MG TAB 1 tablet by mouth twice daily CIPRO 500 MG TAB 152723 CIPROFLOXACIN HCL Inactive Advance Directives Directive Description Start Date DISCUSSED WITH PATIENT -- NO DECISION MADE Vital Signs Date Name Value Unit Range Description blood pressure, diastolic - 8462-4 57 mm[Hg] BP pat blood pressure, systolic - 8480-6 134 mm[Hg] BP sys pulse rate E&M - 8867-4 63 /min Heart rate temperature E&M 98.6 [degF] Body temperature weight E&M - 3141-9 290.4 [lb_av] Weight Measured blood pressure, diastolic - 8462-4 85 mm[Hg] BP pat blood pressure, systolic - 8480-6 166 mm[Hg] BP sys pulse rate E&M - 8867-4 85 /min Heart rate temperature E&M 99.4 [degF] Body temperature weight E&M - 3141-9 293 [lb_av] Weight Measured blood pressure, diastolic - 8462-4 72 mm[Hg] BP pat blood pressure, systolic - 8480-6 149 mm[Hg] BP sys height E&M - 8302-2 63 [in_us] Bdy height pulse rate E&M - 8867-4 72 /min Heart rate temperature E&M 98.9 [degF] Body temperature weight E&M - 3141-9 279 [lb_av] Weight Measured blood pressure, diastolic - 8462-4 71 mm[Hg] BP pat blood pressure, systolic - 8480-6 131 mm[Hg] BP sys pulse rate E&M - 8867-4 56 /min Heart rate temperature E&M 96.5 [degF] Body temperature weight E&M - 3141-9 281 [lb_av] Weight Measured Diagnostic Results Date Name Value Unit Range Description Lab Report: CBC, Comp. Metabolic Panel, Lipid Panel, HGBA1C, MICROALB/CR ... - Chemistry sodium, serum 140 mmol/L 177-639 8420/06/28 carbon dioxide, venous blood 32.4 mmol/L 21.0-32.0 potassium, serum 4.0 mmol/L 3.5-5.2 chloride, serum 101 mmol/L 98-107 blood glucose 108 mg/dL 65-110 urea nitrogen, blood 20 mg/dL 7-18 creatinine, serum 0.98 mg/dL 0.55-1.30 alanine aminotransferase (SGPT), serum 44 U/L 12-78 aspartate aminotransferase (SGOT), serum 27 U/L 15-37 calcium, serum 9.4 mg/dL 8.5-10.1 bilirubin, serum, total 0.30 mg/dL 0.00-1.00 cholesterol, serum 264 mg/dL 700-469 0462/06/28 triglyceride, serum, fasting 146 mg/dL 30-200 HDL cholesterol, serum 70 mg/dL 32-96 LDL cholesterol, serum 165 mg/dL 0-130 hemoglobin A1C, blood, as % of total hemoglobin 6.0 % 4.3-6.0 albumin/creatinine ratio, urine < 30 mg/g mg/g{creat} 0-29 Lab Report: CBC, Comp. Metabolic Panel, Lipid Panel, HGBA1C, MICROALB/CR ... - Hematology leukocyte count, blood 8.2 10^3/MM^3 10*3/mm3 4.6-10.2 erythrocyte (RBC) count 4.43 10^6/MM^3 10*6/mm3 4.04-5.48 hemoglobin, blood 14.0 g/dL 12.0-16.0 hematocrit, blood 41.8 % 36.0-46.0 mean corpuscular volume, RBC 94 fL 80-97 mean corpuscular hemoglobin, RBC 31.5 pg 27.0-31.2 mean corpuscular hemoglobin concentration, RBC 33.4 G/DL % 31.8- 35.4 red blood cell distribution width 13.9 % 11.6-14.8 platelet count 283 10^3/MM^3 10*3/mm3 142-424 Lab Report: CBC, Comp. Metabolic Panel, Lipid Panel, HGBA1C, MICROALB/CR ... - Lab microalbumin, urine 30 0-19 Lab Report: Comp. Metabolic Panel, Lipid Panel - Chemistry sodium, serum 143 mmol/L 438-123 0733/09/27 carbon dioxide, venous blood 30.1 mmol/L 21.0-32.0 potassium, serum 3.9 mmol/L 3.5-5.2 chloride, serum 107 mmol/L 98-107 blood glucose 114 mg/dL 65-110 urea nitrogen, blood 14 mg/dL 7-18 creatinine, serum 0.79 mg/dL 0.55-1.30 alanine aminotransferase (SGPT), serum 44 U/L 12-78 aspartate aminotransferase (SGOT), serum 25 U/L 15-37 calcium, serum 8.5 mg/dL 8.5-10.1 bilirubin, serum, total 0.30 mg/dL 0.00-1.00 cholesterol, serum 152 mg/dL 156-998 6688/09/27 triglyceride, serum, fasting 85 mg/dL 30-200 HDL cholesterol, serum 59 mg/dL 32-96 LDL cholesterol, serum 76 mg/dL 0-130 Encounters Code Encounter Date Provider Facility CPT-16911 Level 4 Est. Patient 11:53:39 CARE GIVER Andre Barreto MD [facility] CPT-85623 Level 4 Est. Patient 14:21:31 CDT Andre Barreto MD [facility] CPT-87964 Level 4 Est. Patient 15:24:17 CDT Andre Barreto MD [facility] CPT-91895 Level 3 Est. Patient 10:36:40 CDT Andre Barreto MD [facility] CPT-51120 Level 4 Est. Patient 11:27:43 CDT Andre Barreto MD [facility] CPT-09231 Level 3 Est. Patient 10:57:31 CARE GIVER Andre Barreto MD [facility] CPT-32340 Level 3 Est. Patient 13:53:13 CARE GIVER Andre Barreto MD [facility] CPT-42367 Level 3 Est. Patient 09:16:12 CDT Andre Barreto MD [facility] CPT-50735 Level 3 Est. Patient 14:50:35 CDT Andre Barreto MD [facility] Procedures Code Procedure Name Date Entry Date Standard Description CPT-35775 First Vx - Ix admin for Medicare patients 17:55:11 CARE GIVER CPT-58304 Fluzone High-Dose Intramuscular Suspension 17:55:11 CARE GIVER CPT-57423 Venipuncture Draw Fee 14:11:36 CDT CPT-42135 Lipid - LAB USE ONLY 14:11:36 CDT CPT-44394 CMP - LAB USE ONLY 14:11:36 CDT CPT-G0438 Initial Annual Wellness Exam 13:29:06 CDT CPT-G0009 Administration of Pneumococcal Vaccine 13:26:57 CDT CPT-15157 Prevnar 13 Intramuscular Suspension 13:26:56 CDT 08/19 CPT-95958 Bone Density - XRAY USE ONLY 09:30:16 CDT CPT-Cryo Cryotherapy 08:59:26 CARE GIVER CPT-Cryo Cryotherapy 08:46:02 CDT CPT-00346 Chest 2V Frontal and Lat 14:02:13 CARE GIVER
--- OUTSIDE RECORDS SUMMARY | 2018-03-16 19:21 | XMS REPORT | Clinical Summary ---
Author Author Admin, EDUARDO Organization [employer] Address Unknown Phone Unavailable Allergies, Adverse Reactions, Alerts Allergy Name Reaction Description Start Date Severity Status Provider SULFA Mild No Longer Active Jillina Frazell PARTS COUNTER SALESPERSON PENICILLIN Mild No Longer Active Jillina Frazell PARTS COUNTER SALESPERSON ZINC Mild No Longer Active Jillina Frazell PARTS COUNTER SALESPERSON SULFA Critical No Longer Active Marcelle Yesi [...] Coronary atherosclerosis of unspecified type of vessel, [place] or graft Obstructive sleep apnea 327.23 Active [...] 1 po q8hr PRN Dizziness MECLIZINE HCL 66497500115 No Longer Active Andre Barreto MD Active MELOXICAM 15 MG ORAL TABLET 1 po qd PRN Pain MELOXICAM 99162892532 Active Andre Barreto MD Active ATORVASTATIN CALCIUM 40 MG ORAL TABLET 1 po qHS ATORVASTATIN CALCIUM 88623850057 No Longer Active Andre Barreto MD Active ATORVASTATIN CALCIUM 20 MG ORAL TABLET 1 po MWF ATORVASTATIN CALCIUM 98989809238 Active Andre Barreto MD Active GUAIFENESIN DM 400-20 MG ORAL TABLET 1 pill by mouth twice daily, if needed for cough DEXTROMETHORPHAN-GUAIFENESIN 58712133940 No Longer Active Andre Barreto MD Active BACTROBAN 2 % EXTERNAL OINTMENT Apply to affected area BID 05/18 MUPIROCIN 28552972830 No Longer Active Moira Price MA Active CLINDAMYCIN HCL 300 MG ORAL CAPSULE 1 po QID x 7 days CLINDAMYCIN HCL 76369973969 No Longer Active Jillina Frazell PARTS COUNTER SALESPERSON Active BACTRIM DS 800-160 MG ORAL TABLET 1 tab by mouth twice daily 2017 TRIMETHOPRIM-SULFAMETHOXAZOLE 69613599543 No Longer Active Jillina Frazell PARTS COUNTER SALESPERSON Active CEFDINIR 300 MG ORAL CAPSULE by mouth twice a day CEFDINIR 44764529792 No Longer Active Jillina Frazell PARTS COUNTER SALESPERSON Active BENZONATATE 200 MG ORAL CAPSULE 1 three times a day as needed for cough 03/27 BENZONATATE 49289348021 No Longer Active Luna Prabhakar Active ZITHROMAX Z-NEVAEH 250 MG ORAL TABLET 2 today and then 1 daily for 4 days 03/27 AZITHROMYCIN 46792954078 No Longer Active Luna Prabhakar Active PREDNISONE 20 MG ORAL TABLET 2 daily for 3 days then 1 daily for 3 days 03/27 PREDNISONE 94950975493 No Longer Active Luna Prabhakar Active CLOPIDOGREL BISULFATE 75 MG ORAL TABLET 1 po qd CLOPIDOGREL BISULFATE 30786703260 Active Andre Barreto MD Active FUROSEMIDE 20 MG ORAL TABLET 1 po qd PRN Edema FUROSEMIDE 39282095322 Active Andre Barreto MD Active PROAIR HFA 108 (90 Base) MCG/ACT INHALATION AEROSOL SOLUTION 2 puffs q4hr PRN Shortness of air/Wheezing ALBUTEROL SULFATE 60527954377 Active Andre Barreto MD Active ATORVASTATIN CALCIUM 80 MG ORAL TABLET 1 po qHS ATORVASTATIN CALCIUM 21267755303 No Longer Active Andre Barreto MD Active AMBIEN 5 MG ORAL TABLET 1 po qHS PRN Insomnia ZOLPIDEM TARTRATE 96374246512 Active Andre Barreto MD Active DETROL 2 MG ORAL TABLET 1 po qd TOLTERODINE TARTRATE 70806547790 Active Andre Barreto MD Active NITROGLYCERIN 0.4 MG SUBLINGUAL TABLET SUBLINGUAL 1 SL q5min PRN Chest pain up to 3 doses NITROGLYCERIN 33892225768 Active Andre Barreto MD Active TOPROL XL 50 MG ORAL TABLET EXTENDED RELEASE 24 HOUR 1 po qd METOPROLOL SUCCINATE 25834204328 Active Andre Barreto MD Active SYMBICORT 160-4.5 MCG/ACT INHALATION AEROSOL 2 puff BID BUDESONIDE-FORMOTEROL FUMARATE 78793755855 Active Cayla VERA Active FLUOXETINE HCL 40 MG ORAL CAPSULE 1 po qd FLUOXETINE HCL 37089792893 Active Andre Barreto MD Active BENICAR HCT 40-25 MG ORAL TABLET Take one by mouth daily OLMESARTAN MEDOXOMIL-HCTZ 05055476890 No Longer Active Andre Barreto MD Active LOSARTAN POTASSIUM-HCTZ 100-25 MG ORAL TABLET 1 po qd LOSARTAN POTASSIUM-HCTZ 62673241496 Active Andre Barreto MD Active BETAMETHASONE DIPROPIONATE 0.05 % EXTERNAL OINTMENT Apply to affected areas BID for up to 2 weeks BETAMETHASONE DIPROPIONATE 36013988342 No Longer Active Andre Barreto MD Active ZOFRAN 4 MG ORAL TABLET 1 po q6hr PRN Nausea ONDANSETRON HCL 50833958306 No Longer Active Andre Barreto MD Active CIPRO 500 MG ORAL TABLET 1 tablet by mouth twice daily CIPROFLOXACIN HCL 15502549419 No Longer Active Andre Barreto MD Active SYMBICORT 160-4.5 MCG/ACT INHALATION AEROSOL 2 puffs inhaled bid BUDESONIDE-FORMOTEROL FUMARATE 22133643941 No Longer Active Andre Barreto MD Active DICLOFENAC SODIUM 75 MG ORAL TABLET DELAYED RELEASE 1 tablet by mouth twice daily DICLOFENAC SODIUM 33601424531 No Longer Active Andre Barreto MD Active PROZAC 40 MG ORAL CAPSULE 1 cap by mouth at bedtime FLUOXETINE HCL 86194807635 No Longer Active Andre Barreto MD Active HYDROCODONE-ACETAMINOPHEN 5-325 MG ORAL TABLET 1 po q 6hr PRN Pain HYDROCODONE-ACETAMINOPHEN 18133485749 No Longer Active Andre Barreto MD Active TRAMADOL HCL 50 MG ORAL TABLET 2 po q 6 hrs prn TRAMADOL HCL 04247293290 Active Andre Barreto MD Active HYDROCODONE-ACETAMINOPHEN 5-325 MG ORAL TABLET 1 po q 6hr PRN Pain HYDROCODONE-ACETAMINOPHEN 5-325 MG ORAL TABLET 330531 HYDROCODONE- ACETAMINOPHEN Inactive PROZAC 40 MG ORAL CAPSULE 1 cap by mouth at bedtime PROZAC 40 MG ORAL CAPSULE 205321 FLUOXETINE HCL Inactive DICLOFENAC SODIUM 75 MG ORAL TABLET DELAYED RELEASE 1 tablet by mouth twice daily DICLOFENAC SODIUM 75 MG ORAL TABLET DELAYED RELEASE 432940 DICLOFENAC SODIUM Inactive SYMBICORT 160-4.5 MCG/ACT INHALATION AEROSOL 2 puffs inhaled bid SYMBICORT 160-4.5 MCG/ACT INHALATION AEROSOL BUDESONIDE-FORMOTEROL FUMARATE Inactive ZOFRAN 4 MG ORAL TABLET 1 po q6hr PRN Nausea ZOFRAN 4 MG ORAL TABLET 606897 ONDANSETRON HCL Inactive BETAMETHASONE DIPROPIONATE 0.05 % EXTERNAL OINTMENT Apply to affected areas BID for up to 2 weeks BETAMETHASONE DIPROPIONATE 0.05 % EXTERNAL OINTMENT 746158 BETAMETHASONE DIPROPIONATE Inactive BENICAR HCT 40-25 MG ORAL TABLET Take one by mouth daily BENICAR HCT 40-25 MG ORAL TABLET 150032 OLMESARTAN MEDOXOMIL-HCTZ Inactive ATORVASTATIN CALCIUM 80 MG ORAL TABLET 1 po qHS ATORVASTATIN CALCIUM 80 MG ORAL TABLET 992922 ATORVASTATIN CALCIUM Inactive PREDNISONE 20 MG ORAL TABLET 2 daily for 3 days then 1 daily for 3 days 03/27 PREDNISONE 20 MG ORAL TABLET 662156 PREDNISONE Inactive ZITHROMAX Z-NEVAEH 250 MG ORAL TABLET 2 today and then 1 daily for 4 days 03/27 ZITHROMAX Z-NEVAEH 250 MG ORAL TABLET 223635 AZITHROMYCIN Inactive BENZONATATE 200 MG ORAL CAPSULE 1 three times a day as needed for cough 03/27 BENZONATATE 200 MG ORAL CAPSULE 394547 BENZONATATE Inactive BACTRIM DS 800-160 MG ORAL TABLET 1 tab by mouth twice daily 2017 BACTRIM DS 800-160 MG ORAL TABLET 094958 TRIMETHOPRIM- SULFAMETHOXAZOLE Inactive BACTROBAN 2 % EXTERNAL OINTMENT Apply to affected area BID 05/18 BACTROBAN 2 % EXTERNAL OINTMENT MUPIROCIN Inactive GUAIFENESIN DM 400-20 MG ORAL TABLET 1 pill by mouth twice daily, if needed for cough GUAIFENESIN DM 400-20 MG ORAL TABLET 3868922 DEXTROMETHORPHAN-GUAIFENESIN Inactive ATORVASTATIN CALCIUM 40 MG ORAL TABLET 1 po qHS ATORVASTATIN CALCIUM 40 MG ORAL TABLET 647601 ATORVASTATIN CALCIUM Inactive MECLIZINE HCL 25 MG ORAL TABLET 1 po q8hr PRN Dizziness MECLIZINE HCL 25 MG ORAL TABLET 911966 MECLIZINE HCL Inactive CIPRO 500 MG ORAL TABLET 1 tablet by mouth twice daily CIPRO 500 MG ORAL TABLET 221936 CIPROFLOXACIN HCL Inactive CEFDINIR 300 MG ORAL CAPSULE by mouth twice a day CEFDINIR 300 MG ORAL CAPSULE 082279 CEFDINIR Inactive CLINDAMYCIN HCL 300 MG ORAL CAPSULE 1 po QID x 7 days CLINDAMYCIN HCL 300 MG ORAL CAPSULE 877755 CLINDAMYCIN HCL Inactive Advance Directives Directive Description [...] Panel - Chemistry sodium, serum 139 mmol/L 360-284 0723/05/04 carbon dioxide, venous blood 28.7 mmol/L 21.0-32.0 [...] 4.3-6.0 Lab Report: HGBA1C, CBC - Hematology mean corpuscular volume, RBC 94 fL 80-97 mean corpuscular hemoglobin, RBC 30.3 pg 27.0-31.2 mean corpuscular hemoglobin concentration, RBC 32.2 G/DL % 31.8- 35.4 red blood cell distribution width 15.5 % 11.6-14.8 platelet count 245 10^3/MM^3 10*3/mm3 310-571 3332/11/07 hematocrit, blood 41.5 % 37.0-47.0 hemoglobin, blood 13.4 g/dL 12.0-16.0 erythrocyte (RBC) count 4.40 10^6/MM^3 10*6/mm3 3.80-5.80 leukocyte count, blood 8.0 10^3/MM^3 10*3/mm3 4.6-10.2 Lab Report: HGBA1C, Lipid Panel - Chemistry hemoglobin A1C, blood, as % of total hemoglobin 6.2 % 4.3-6.0 cholesterol, serum 302 mg/dL 456-045 8320/05/04 triglyceride, serum, fasting 145 mg/dL 30-200 HDL cholesterol, serum 61 mg/dL 32-60 LDL cholesterol, serum 212 mg/dL 0-130 Lab Report: HGBA1C, Lipid Panel, Comp. Metabolic Panel - Chemistry hemoglobin A1C, blood, as % of total hemoglobin 6.2 % 4.3-6.0 cholesterol, serum 229 mg/dL 095-633 9021/07/24 triglyceride, serum, fasting 106 mg/dL 30-200 HDL cholesterol, serum 60 mg/dL 32-60 LDL cholesterol, serum 148 mg/dL 0-130 sodium, serum 139 mmol/L 439-311 8480/07/24 carbon dioxide, venous blood 34.8 mmol/L 21.0-32.0 [...] Panel - Chemistry cholesterol, serum 275 mg/dL 565-320 4459/11/07 triglyceride, serum, fasting 166 mg/dL 30-200 HDL cholesterol, serum 62 mg/dL 32-60 LDL cholesterol, serum 180 mg/dL 0-130 sodium, serum 141 mmol/L 296-692 4494/11/07 carbon dioxide, venous blood 26.3 mmol/L 21.0-32.0 [...] 0-19 Encounters Code Encounter Date Provider Facility CPT-73530 Level 4 Est. Patient 09:44:36 CDT Andre Barreto MD [facility] CPT-01559 Level 4 Est. Patient 10:07:14 CDT Andre Barreto MD [facility] CPT-71954 Level 3 Est. Patient 14:29:01 CDT Esa Jackson MD [facility] CPT-50901 Level 3 Est. Patient 14:06:16 CDT Andre Barreto MD [facility] CPT-02856 Level 3 Est. Patient 09:16:36 CDT David King [facility] CPT-39590 Level 3 Est. Patient 09:24:01 YARD CALLER David King [facility] CPT-25798 Level 3 Est. Patient 13:01:07 YARD CALLER Solitario Howe MD [facility] CPT-19238 Level 4 Est. Patient 10:26:48 YARD CALLER Andre Barreto MD [facility] CPT-38826 Level 4 Est. Patient 09:45:06 CDT Andre Barreto MD [facility] CPT-62040 Level 4 Est. Patient 11:53:39 YARD CALLER Andre Barreto MD [facility] CPT-82793 Level 4 Est. Patient 14:21:31 CDT Andre Barreto MD [facility] CPT-18770 Level 4 Est. Patient 15:24:17 CDT Andre Barreto MD [facility] CPT-70240 Level 3 Est. Patient 10:36:40 CDT Andre Barreto MD [facility] CPT-17876 Level 4 Est. Patient 11:27:43 CDT Andre Barreto MD [facility] CPT-33035 Level 3 Est. Patient 10:57:31 YARD CALLER Andre Barreto MD [facility] CPT-66172 Level 3 Est. Patient 13:53:13 YARD CALLER Andre Barreto MD [facility] CPT-11907 Level 3 Est. Patient 09:16:12 CDT Andre Barreto MD [facility] CPT-34116 Level 3 Est. Patient 14:50:35 CDT Andre Barreto MD [facility] Procedures Code Procedure Name Date Entry Date Standard Description CPT-12857 Postop F/U Visit 14:31:27 CDT CPT-71654 Postop F/U Visit 14:30:20 CDT CPT-30965 Sono pelvis coley bladder only - XRAY USE ONLY 15:07:39 CDT CPT-60849 First Vx - Ix admin for Medicare patients 13:56:44 YARD CALLER CPT-37066 Zostavax Subcutaneous Solution Reconstituted 88213 UNT/0.65ML 12/22 13:56:44 YARD CALLER CPT-G0009 Administration of Pneumococcal Vaccine 10:12:50 CDT CPT-80857 Pneumovax 23 Injection Injectable 25 MCG/0.5ML 10:12:50 CDT CPT-G0439 [facility] Annual Wellness Exam 09:49:25 CDT CPT-33788 First Vx - Ix admin for Medicare patients 17:55:11 YARD CALLER CPT-03934 Fluzone High-Dose Intramuscular Suspension 17:55:11 YARD CALLER CPT-55544 Venipuncture Draw Fee 14:11:36 CDT CPT-32357 Lipid - LAB USE ONLY 14:11:36 CDT CPT-01623 CMP - LAB USE ONLY 14:11:36 CDT CPT-G0438 Initial Annual Wellness Exam 13:29:06 CDT CPT-G0009 Administration of Pneumococcal Vaccine 13:26:57 CDT CPT-73855 Prevnar 13 Intramuscular Suspension 13:26:56 CDT 08/19 CPT-96583 Bone Density - XRAY USE ONLY 09:30:16 CDT CPT-Cryo Cryotherapy 08:59:26 YARD CALLER CPT-Cryo Cryotherapy 08:46:02 CDT CPT-05672 Chest 2V Frontal and Lat 14:02:13 YARD CALLER
--- OUTSIDE RECORDS SUMMARY | 2018-03-16 19:22 | XMS REPORT | Clinical Summary ---
Author Author Admin, E Organization [facility] Address Unknown Phone Unavailable Allergies, Adverse [...] Coronary atherosclerosis of unspecified type of vessel, [place]' or graft Obstructive sleep apnea 327.23 Active [...] airway pressure rx V46.2 Active Pushpa Beverly APRN Other dependence on machines, supplemental oxygen Osteopenia 733.90 Active Pushpa Beverly APRN Disorder of bone and cartilage, unspecified DYSPNEA ICD-786.09 Inactive Andre Barreto MD 2012 [...] Unsteady gait ICD-781.2 Inactive Andre Barreto MD Medication List Medication Instructions Start Date Stop Date Generic Name NDC Status Provider Patient Instruction TOPROL XL 50 MG ORAL [id number] 1 po qd METOPROLOL SUCCINATE 46912178748 Active Andre Barreto MD Active PLAVIX 75 MG TABS 1 po qd CLOPIDOGREL BISULFATE 06174784277 Active Andre Barreto MD Active LASIX 20 MG TAB 1 po qd PRN Edema FUROSEMIDE 13835302100 Active Andre Barreto MD Active ATORVASTATIN CALCIUM 80 MG TABS 1 po qHS ATORVASTATIN CALCIUM 90284748865 Active Andre Barreto MD Active SYMBICORT 160-4.5 MCG/ACT AERO 2 puff BID BUDESONIDE- FORMOTEROL FUMARATE 20141785127 Active Andre Barreto MD Active PROAIR HFA 108 (90 BASE) MCG/ACT AERS 2 puffs four times a day as needed 2015 ALBUTEROL SULFATE 65832768589 Active Andre Barreto MD Active FLUOXETINE HCL 40 MG ORAL CAPS 1 po qd FLUOXETINE HCL 90098821409 Active Andre Barreto MD Active DETROL 2 MG ORAL TABS one tab daily TOLTERODINE TARTRATE 61843535695 Active Andre Barreto MD Active BENICAR HCT 40-25 MG TABS Take one by mouth daily OLMESARTAN MEDOXOMIL-HCTZ 69570430681 No Longer Active Andre Barreto MD Active LOSARTAN POTASSIUM-HCTZ 100-25 MG TABS 1 po qd LOSARTAN POTASSIUM-HCTZ 06505688180 Active Andre Barreto MD Active BETAMETHASONE DIPROPIONATE 0.05 % OINT Apply to affected areas BID for up to 2 weeks BETAMETHASONE DIPROPIONATE 22455850451 No Longer Active Andre Barreto MD Active ZOFRAN 4 MG TABS 1 po q6hr PRN Nausea ONDANSETRON HCL 11921662722 No Longer Active Andre Barreto MD Active CIPRO 500 MG TAB 1 tablet by mouth twice daily CIPROFLOXACIN HCL 28508907568 No Longer Active Andre Barreto MD Active SYMBICORT 160-4.5 MCG/ACT AERO 2 puffs inhaled bid BUDESONIDE- FORMOTEROL FUMARATE 81842330615 No Longer Active Andre Barreto MD Active NITROSTAT 0.4 MG SL TAB disolve 1 under tongue repeat if needed NITROGLYCERIN 00506201616 Active Andre Barreto MD Active DICLOFENAC SODIUM 75 MG TBEC 1 tablet by mouth twice daily DICLOFENAC SODIUM 70924415801 No Longer Active Andre Barreto MD Active PROZAC 40 MG CAPS 1 cap by mouth at bedtime FLUOXETINE HCL 87998405235 No Longer Active Andre Barreto MD Active HYDROCODONE-ACETAMINOPHEN 5-325 MG TABS 1 po q 6hr PRN Pain HYDROCODONE-ACETAMINOPHEN 81637929826 No Longer Active Andre Barreto MD Active TRAMADOL HCL 50 MG TABS 2 po q 6 hrs prn TRAMADOL HCL 10727479677 Active Andre Barreto MD Active AMBIEN 5 MG TABS 1 po a hs prn ZOLPIDEM TARTRATE 91120878860 Active Andre Barreto MD Active HYDROCODONE-ACETAMINOPHEN 5-325 MG TABS 1 po q 6hr PRN Pain HYDROCODONE-ACETAMINOPHEN 5-325 MG TABS 424772 HYDROCODONE-ACETAMINOPHEN Inactive PROZAC 40 MG CAPS 1 cap by mouth at bedtime PROZAC 40 MG CAPS 048890 FLUOXETINE HCL Inactive DICLOFENAC SODIUM 75 MG TBEC 1 tablet by mouth twice daily DICLOFENAC SODIUM 75 MG TBEC 746699 DICLOFENAC SODIUM Inactive SYMBICORT 160-4.5 MCG/ACT AERO 2 puffs inhaled bid SYMBICORT 160-4.5 MCG/ACT AERO BUDESONIDE-FORMOTEROL FUMARATE Inactive ZOFRAN 4 MG TABS 1 po q6hr PRN Nausea ZOFRAN 4 MG TABS 078115 ONDANSETRON HCL Inactive BETAMETHASONE DIPROPIONATE 0.05 % OINT Apply to affected areas BID for up to 2 weeks BETAMETHASONE DIPROPIONATE 0.05 % OINT 246549 BETAMETHASONE DIPROPIONATE Inactive BENICAR HCT 40-25 MG TABS Take one by mouth daily BENICAR HCT 40-25 MG TABS OLMESARTAN MEDOXOMIL-HCTZ Inactive CIPRO 500 MG TAB 1 tablet by mouth twice daily CIPRO 500 MG TAB 660996 CIPROFLOXACIN HCL Inactive Advance Directives Directive Description Start Date DISCUSSED WITH PATIENT -- NO DECISION MADE Vital Signs Date Name Value Unit Range Description blood pressure, diastolic - 8462-4 85 mm[Hg] [...] ... - Chemistry sodium, serum 140 mmol/L 389-858 1074/06/28 carbon dioxide, venous blood 32.4 mmol/L 21.0-32.0 potassium, serum 4.0 mmol/L 3.5-5.2 chloride, serum 101 mmol/L 98-107 blood glucose 108 mg/dL 65-110 urea nitrogen, blood 20 mg/dL 7-18 creatinine, serum 0.98 mg/dL 0.55-1.30 alanine aminotransferase (SGPT), serum 44 U/L 12-78 aspartate aminotransferase (SGOT), serum 27 U/L 15-37 calcium, serum 9.4 mg/dL 8.5-10.1 bilirubin, serum, total 0.30 mg/dL 0.00-1.00 cholesterol, serum 264 mg/dL 855-836 1606/06/28 triglyceride, serum, fasting 146 mg/dL 30-200 HDL [...] Panel - Chemistry sodium, serum 143 mmol/L 234-228 9589/09/27 carbon dioxide, venous blood 30.1 mmol/L 21.0-32.0 potassium, serum 3.9 mmol/L 3.5-5.2 chloride, serum 107 mmol/L 98-107 blood glucose 114 mg/dL 65-110 urea nitrogen, blood 14 mg/dL 7-18 creatinine, serum 0.79 mg/dL 0.55-1.30 alanine aminotransferase (SGPT), serum 44 U/L 12-78 aspartate aminotransferase (SGOT), serum 25 U/L 15-37 calcium, serum 8.5 mg/dL 8.5-10.1 bilirubin, serum, total 0.30 mg/dL 0.00-1.00 cholesterol, serum 152 mg/dL 837-951 4368/09/27 triglyceride, serum, fasting 85 mg/dL 30-200 HDL cholesterol, serum 59 mg/dL 32-96 LDL cholesterol, serum 76 mg/dL 0-130 Encounters Code Encounter Date Provider Facility CPT-85336 Level 4 Est. Patient 14:21:31 CDT Andre Barreto MD [facility] CPT-07886 Level 4 Est. Patient 15:24:17 CDT Andre Barreto MD [facility] CPT-44836 Level 3 Est. Patient 10:36:40 CDT Andre Barreto MD [facility] CPT-52193 Level 4 Est. Patient 11:27:43 CDT Andre Barreto MD [facility] CPT-68147 Level 3 Est. Patient 10:57:31 WOOD BARREL RECONDITIONER Andre Barreto MD [facility] CPT-61728 Level 3 Est. Patient 13:53:13 WOOD BARREL RECONDITIONER Andre Barreto MD [facility] CPT-17903 Level 3 Est. Patient 09:16:12 CDT Andre Barreto MD [facility] CPT-98859 Level 3 Est. Patient 14:50:35 CDT Andre Barreto MD [facility] Procedures Code Procedure Name Date Entry Date Standard Description CPT-82201 Venipuncture Draw Fee 14:11:36 CDT CPT-40576 Lipid - LAB USE ONLY 14:11:36 CDT CPT-78011 CMP - LAB USE ONLY 14:11:36 CDT CPT-G0438 Initial Annual Wellness Exam 13:29:06 CDT CPT-G0009 Administration of Pneumococcal Vaccine 13:26:57 CDT CPT-26422 Prevnar 13 Intramuscular Suspension 13:26:56 CDT 08/19 CPT-76124 Bone Density - XRAY USE ONLY 09:30:16 CDT CPT-Cryo Cryotherapy 08:59:26 WOOD BARREL RECONDITIONER CPT-Cryo Cryotherapy 08:46:02 CDT CPT-01132 Chest 2V Frontal and Lat 14:02:13 WOOD BARREL RECONDITIONER
--- OUTSIDE RECORDS SUMMARY | 2018-03-16 19:22 | XMS REPORT | Clinical Summary ---
Author Author Admin, EDUARDO Organization [facility] Address Unknown Phone Unavailable Allergies, Adverse Reactions, [...] Coronary atherosclerosis of unspecified type of vessel, [place] or graft Obstructive sleep apnea 327.23 Active [...] airway pressure rx V46.2 Active Pushpa Beverly COSMETOLOGY INSTRUCTOR Other dependence on machines, supplemental oxygen Osteopenia 733.90 Active Pushpa Beverly APRN Disorder of bone and cartilage, unspecified Obstructive sleep apnea 327.23 Active Andre Barreto MD Obstructive sleep apnea (adult) (pediatric) DYSPNEA ICD-786.09 Inactive Andre Barreto MD 2012 [...] Inactive Andre Barreto MD Unsteady gait ICD-781.2 Andressa Barreto MD Medication List Medication Instructions Start Date Stop Date Generic Name NDC Status Provider Patient Instruction CLOPIDOGREL BISULFATE 75 MG ORAL TABS 1 po qd CLOPIDOGREL BISULFATE 53602691407 Active Andre Barreto MD Active FUROSEMIDE 20 MG ORAL TABS 1 po qd PRN Edema FUROSEMIDE 04155348959 Active Andre Barreto MD Active PROAIR HFA 108 (90 BASE) MCG/ACT INH AERS 2 puffs q4hr PRN Shortness of air/ Wheezing ALBUTEROL SULFATE 33203012641 Active Andre Barreto MD Active ATORVASTATIN CALCIUM 80 MG TABS 1 po qHS ATORVASTATIN CALCIUM 05946690551 No Longer Active Andre Barreto MD Active AMBIEN 5 MG TABS 1 po qHS PRN Insomnia ZOLPIDEM TARTRATE 81899970645 Active Andre Barreto MD Active DETROL 2 MG ORAL TABS 1 po qd TOLTERODINE TARTRATE 38210193871 Active Andre Barreto MD Active NITROGLYCERIN 0.4 MG SL SUBL 1 SL q5min PRN Chest pain up to 3 doses NITROGLYCERIN 27200697287 Active Andre Barreto MD Active TOPROL XL 50 MG ORAL [id number] 1 po qd METOPROLOL SUCCINATE 13433665024 Active Andre Barreto MD Active SYMBICORT 160-4.5 MCG/ACT AERO 2 puff BID BUDESONIDE- FORMOTEROL FUMARATE 10404626933 Active Cayla Flanagan [facility] Active FLUOXETINE HCL 40 MG ORAL CAPS 1 po qd FLUOXETINE HCL 26407951880 Active Andre Barreto MD Active BENICAR HCT 40-25 MG TABS Take one by mouth daily OLMESARTAN MEDOXOMIL-HCTZ 09208750069 No Longer Active Andre Barreto MD Active LOSARTAN POTASSIUM-HCTZ 100-25 MG TABS 1 po qd LOSARTAN POTASSIUM-HCTZ 50143423238 Active Andre Barreto MD Active BETAMETHASONE DIPROPIONATE 0.05 % OINT Apply to affected areas BID for up to 2 weeks BETAMETHASONE DIPROPIONATE 41141099969 No Longer Active Andre Barreto MD Active ZOFRAN 4 MG TABS 1 po q6hr PRN Nausea ONDANSETRON HCL 48097819093 No Longer Active Andre Barreto MD Active CIPRO 500 MG TAB 1 tablet by mouth twice daily CIPROFLOXACIN HCL 66862348614 No Longer Active Andre Barreto MD Active SYMBICORT 160-4.5 MCG/ACT AERO 2 puffs inhaled bid BUDESONIDE- FORMOTEROL FUMARATE 90880300581 No Longer Active Andre Barreto MD Active DICLOFENAC SODIUM 75 MG TBEC 1 tablet by mouth twice daily DICLOFENAC SODIUM 76834837295 No Longer Active Andre Barreot MD Active PROZAC 40 MG CAPS 1 cap by mouth at bedtime FLUOXETINE HCL 99809015948 No Longer Active Andre Barreto MD Active HYDROCODONE-ACETAMINOPHEN 5-325 MG TABS 1 po q 6hr PRN Pain HYDROCODONE-ACETAMINOPHEN 85750518921 No Longer Active Andre Barreto MD Active TRAMADOL HCL 50 MG TABS 2 po q 6 hrs prn TRAMADOL HCL 57469861453 Active Andre Barreto MD Active HYDROCODONE-ACETAMINOPHEN 5-325 MG TABS 1 po q 6hr PRN Pain HYDROCODONE-ACETAMINOPHEN 5-325 MG TABS 435700 HYDROCODONE-ACETAMINOPHEN Inactive PROZAC 40 MG CAPS 1 cap by mouth at bedtime PROZAC 40 MG CAPS 297781 FLUOXETINE HCL Inactive DICLOFENAC SODIUM 75 MG TBEC 1 tablet by mouth twice daily DICLOFENAC SODIUM 75 MG TBEC 732230 DICLOFENAC SODIUM Inactive SYMBICORT 160-4.5 MCG/ACT AERO 2 puffs inhaled bid SYMBICORT 160-4.5 MCG/ACT AERO BUDESONIDE-FORMOTEROL FUMARATE Inactive ZOFRAN 4 MG TABS 1 po q6hr PRN Nausea ZOFRAN 4 MG TABS 942821 ONDANSETRON HCL Inactive BETAMETHASONE DIPROPIONATE 0.05 % OINT Apply to affected areas BID for up to 2 weeks BETAMETHASONE DIPROPIONATE 0.05 % OINT 787714 BETAMETHASONE DIPROPIONATE Inactive BENICAR HCT 40-25 MG TABS Take one by mouth daily BENICAR HCT 40-25 MG TABS 111578 OLMESARTAN MEDOXOMIL-HCTZ Inactive ATORVASTATIN CALCIUM 80 MG TABS 1 po qHS ATORVASTATIN CALCIUM 80 MG TABS 794157 ATORVASTATIN CALCIUM Inactive CIPRO 500 MG TAB 1 tablet by mouth twice daily CIPRO 500 MG TAB 094596 CIPROFLOXACIN HCL Inactive Advance Directives Directive Description Start Date DISCUSSED WITH PATIENT -- NO DECISION MADE Vital Signs Date Name Value Unit Range Description blood pressure, diastolic 82 mm[Hg] BP pat [...] temperature weight E&M 293.56 [lb_av] Weight Measured blood pressure, diastolic 57 mm[Hg] BP pat blood pressure, systolic 134 mm[Hg] BP sys pulse rate E&M 63 /min Heart rate temperature E&M 98.6 [degF] Body temperature weight E&M 290.4 [lb_av] Weight Measured Diagnostic Results Date Name [...] urine 30 mg/L 0-19 Lab Report: HGBA1C, Lipid Panel, Comp. Metabolic Panel - Chemistry hemoglobin A1C, blood, as % of total hemoglobin 6.2 % 4.3-6.0 cholesterol, serum 229 mg/dL 081-515 3171/07/24 triglyceride, serum, fasting 106 mg/dL 30-200 HDL cholesterol, serum 60 mg/dL 32-60 LDL cholesterol, serum 148 mg/dL 0-130 sodium, serum 139 mmol/L 783-035 7831/07/24 carbon dioxide, venous blood 34.8 mmol/L 21.0-32.0 potassium, serum 4.6 mmol/L 3.5-5.2 chloride, serum 101 mmol/L 98-107 blood glucose 112 mg/dL 65-110 urea nitrogen, blood 22 mg/dL 7-18 creatinine, serum 1.12 mg/dL 0.60-1.30 alanine aminotransferase (SGPT), serum 32 U/L 12-78 aspartate aminotransferase (SGOT), serum 22 U/L 15-37 calcium, serum 9.4 mg/dL 8.5-10.1 bilirubin, serum, total 0.50 mg/dL 0.00-1.00 Encounters Code Encounter Date Provider Facility CPT-63092 Level 4 Est. Patient 10:26:48 JOINT SEALER Andre Barreto MD [facility] CPT-18987 Level 4 Est. Patient 09:45:06 CDT Andre Barreto MD [facility] CPT-79133 Level 4 Est. Patient 11:53:39 JOINT SEALER Andre Barreto MD [facility] CPT-35795 Level 4 Est. Patient 14:21:31 CDT Andre Barreto MD [facility] CPT-08755 Level 4 Est. Patient 15:24:17 CDT Adnre Barreto [facility] CPT-87399 Level 3 Est. Patient 10:36:40 CDT Andre Barreto MD [facility] CPT-86096 Level 4 Est. Patient 11:27:43 CDT Andre Barreto MD [facility] CPT-58890 Level 3 Est. Patient 10:57:31 JOINT SEALER Andre Barreto MD [facility] CPT-55190 Level 3 Est. Patient 13:53:13 JOINT SEALER Andre Barreto MD [facility] CPT-32014 Level 3 Est. Patient 09:16:12 CDT Andre Barreto MD [facility] CPT-32590 Level 3 Est. Patient 14:50:35 CDT Andre Barreto MD [facility] Procedures Code Procedure Name Date Entry Date Standard Description CPT-81652 First Vx - Ix admin for Medicare patients 13:56:44 JOINT SEALER CPT-16608 Zostavax Subcutaneous Solution Reconstituted 91224 UNT/0.65ML 12/22 13:56:44 JOINT SEALER CPT-G0009 Administration of Pneumococcal Vaccine 10:12:50 CDT CPT-57831 Pneumovax 23 Injection Injectable 25 MCG/0.5ML 10:12:50 CDT CPT-G0439 Subsequent Annual Wellness Exam 09:49:25 CDT CPT-69196 First Vx - Ix admin for Medicare patients 17:55:11 JOINT SEALER CPT-25089 Fluzone High-Dose Intramuscular Suspension 17:55:11 JOINT SEALER CPT-30019 Venipuncture Draw Fee 14:11:36 CDT CPT-00334 Lipid - LAB USE ONLY 14:11:36 CDT CPT-38356 CMP - LAB USE ONLY 14:11:36 CDT CPT-G0438 Initial Annual Wellness Exam 13:29:06 CDT CPT-G0009 Administration of Pneumococcal Vaccine 13:26:57 CDT CPT-42744 Prevnar 13 Intramuscular Suspension 13:26:56 CDT 08/19 CPT-28281 Bone Density - XRAY USE ONLY 09:30:16 CDT CPT-Cryo Cryotherapy 08:59:26 JOINT SEALER CPT-Cryo Cryotherapy 08:46:02 CDT CPT-76352 Chest 2V Frontal and Lat 14:02:13 JOINT SEALER
--- OUTSIDE RECORDS SUMMARY | 2018-03-16 19:22 | XMS REPORT | Clinical Summary ---
Author Author Admin, EDUARDO Organization [facility] Address Unknown Phone Unavailable Allergies, Adverse [...] Coronary atherosclerosis of unspecified type of vessel, [place] or graft OBSTRUCTIVE SLEEP APNEA 327.23 Active [...] Muscle weakness (generalized) Dyshidrotic eczema, hands 705.81 Active Andre Barreto MD Dyshidrosis DYSPNEA ICD-786.09 Inactive Andre Barreto MD 2012 FATIGUE ICD-780.79 Inactive Andre Barreto MD 2012 DYSPNEA ICD-786.05 Inactive Andre Barreto MD 2012 Fever ICD-780.60 Inactive Andre Barreto MD 05/23 Skin tag ICD-701.9 Inactive Andre Barreto MD 2014 Weakness, muscle ICD-728.87 Inactive Andre Barreto MD Medication List Medication Instructions Start Date Stop Date Generic Name NDC Status Provider Patient Instruction BETAMETHASONE DIPROPIONATE 0.05 % OINT Apply to affected areas BID for up to 2 weeks BETAMETHASONE DIPROPIONATE 67898718475 Active Andre Barreto MD Active LIPITOR 40 MG TAB Take 1 tab by mouth daily ATORVASTATIN CALCIUM 32201093193 Active Andre Barreto MD Active ZOFRAN 4 MG TABS 1 po q6hr PRN Nausea ONDANSETRON HCL 30024045959 No Longer Active Andre Barreto MD Active CIPRO 500 MG TAB 1 tablet by mouth twice daily CIPROFLOXACIN HCL 58914425725 No Longer Active Andre Barreto MD Active SYMBICORT 160-4.5 MCG/ACT AERO 2 puffs inhaled bid BUDESONIDE- FORMOTEROL FUMARATE 21883182833 No Longer Active Andre Barreto MD Active LASIX 20 MG TAB 1 tablet by mouth daily PRN FUROSEMIDE 89795929049 Active Andre Barreto MD Active TOPROL XL 25 MG [id number] Take one by mouth daily METOPROLOL SUCCINATE 25866729996 Active Andre Barreto MD Active PLAVIX 75 MG TABS 1 tablet by mouth daily CLOPIDOGREL BISULFATE 51555795146 Active Andre Barreto MD Active NITROSTAT 0.4 MG SL TAB disolve 1 under tongue repeat if needed NITROGLYCERIN 43303948914 Active Andre Barreto MD Active DICLOFENAC SODIUM 75 MG TBEC 1 tablet by mouth twice daily DICLOFENAC SODIUM 02245420130 No Longer Active Andre Barreto MD Active FLUOXETINE HCL 20 MG CAPS TAKE 3 CAPSULES BY MOUTH ONCE DAILY. FLUOXETINE HCL 43320624611 Active Andre Barreto MD Active PROZAC 40 MG CAPS 1 cap by mouth at bedtime FLUOXETINE HCL 75481621773 No Longer Active Andre Barreto MD Active HYDROCODONE-ACETAMINOPHEN 5-325 MG TABS 1 po q 6hr PRN Pain HYDROCODONE-ACETAMINOPHEN 78154127513 No Longer Active Andre Barreto MD Active TRAMADOL HCL 50 MG TABS 2 po q 6 hrs prn TRAMADOL HCL 28605451768 Active Andre Barreto MD Active AMBIEN 5 MG TABS 1 po a hs prn ZOLPIDEM TARTRATE 94495471397 Active Andre Barreto MD Active BENICAR HCT 40-25 MG TABS Take one by mouth daily OLMESARTAN MEDOXOMIL- HCTZ 45558832736 Active Andre Barreto MD Active HYDROCODONE-ACETAMINOPHEN 5-325 MG TABS 1 po q 6hr PRN Pain HYDROCODONE-ACETAMINOPHEN 5-325 MG TABS 098050 HYDROCODONE-ACETAMINOPHEN Inactive PROZAC 40 MG CAPS 1 cap by mouth at bedtime PROZAC 40 MG CAPS 020261 FLUOXETINE HCL Inactive DICLOFENAC SODIUM 75 MG TBEC 1 tablet by mouth twice daily DICLOFENAC SODIUM 75 MG TBEC 468985 DICLOFENAC SODIUM Inactive SYMBICORT 160-4.5 MCG/ACT AERO 2 puffs inhaled bid SYMBICORT 160-4.5 MCG/ACT AERO BUDESONIDE-FORMOTEROL FUMARATE Inactive ZOFRAN 4 MG TABS 1 po q6hr PRN Nausea ZOFRAN 4 MG TABS 721758 ONDANSETRON HCL Inactive CIPRO 500 MG TAB 1 tablet by mouth twice daily CIPRO 500 MG TAB 334936 CIPROFLOXACIN HCL Inactive Vital Signs Date Name Value Unit Range Description blood pressure, diastolic - 8462-4 79 mm[Hg] BP pat blood pressure, systolic - 8480-6 123 mm[Hg] BP sys pulse rate E&M - 8867-4 72 /min Heart rate temperature E&M 98.6 [degF] Body temperature weight E&M - 3141-9 259 [lb_av] Weight Measured Encounters Code Encounter Date Provider Facility CPT-21969 Level 3 Est. Patient 10:36:40 CDT [facility] CPT-11669 Level 4 Est. Patient 11:27:43 CDT [facility] CPT-70384 Level 3 Est. Patient 10:57:31 HOME CARE ASSISTANT Andre [facility] MD [facility] CPT-59390 Level 3 Est. Patient 13:53:13 HOME CARE ASSISTANT Andre Barreto MD [facility] CPT-17130 Level 3 Est. Patient 09:16:12 CDT Andre Barre[facility] MD [facility] CPT-78887 Level 3 Est. Patient 14:50:35 CDT Andre Barreto MD [facility] Procedures Code Procedure Name Date Entry Date Standard Description CPT-Cryo Cryotherapy 08:59:26 HOME CARE ASSISTANT CPT-Cryo Cryotherapy 08:46:02 CDT CPT-08863 Chest 2V Frontal and Lat 14:02:13 HOME CARE ASSISTANT
--- OUTSIDE RECORDS SUMMARY | 2018-03-16 19:23 | XMS REPORT | Clinical Summary ---
Author Author Admin, EDUARDO Organization [employer] Address Unknown Phone Unavailable Allergies, Adverse Reactions, Alerts Allergy Name Reaction Description Start Date Severity Status Provider SULFA Mild No Longer Active Jillina Frazell CONSUMER SCIENCE TEACHER PENICILLIN Mild No Longer Active Jillina Frazell CONSUMER SCIENCE TEACHER ZINC Mild No Longer Active Jillina Frazell CONSUMER SCIENCE TEACHER SULFA Critical No Longer Active Marcelle Yesi [...] Coronary atherosclerosis of unspecified type of vessel, [place] or graft Obstructive sleep apnea 327.23 Active [...] airway pressure rx V46.2 Active Pushpa Hernandez CONSUMER SCIENCE TEACHER Other dependence on machines, supplemental oxygen Osteopenia 733.90 Active Pushpa Hernandez CONSUMER SCIENCE TEACHER Disorder of bone and cartilage, unspecified Obstructive sleep apnea 327.23 Active Andre Barreto MD Obstructive sleep apnea (adult) (pediatric) Acute exacerbation of chronic bronchitis 491.22 Inactive Solitario Howe MD Obstructive chronic bronchitis with acute bronchitis Sinusitis 473.9 Active David King CONSUMER SCIENCE TEACHER Unspecified sinusitis (chronic) Abscess, skin 682.9 Active David King APRN Cellulitis and abscess of unspecified sites DYSPNEA ICD-786.09 Inactive Andre Barreto MD 2012 FATIGUE ICD-780.79 Inactive Andre Barreto MD 2012 DYSPNEA ICD-786.05 Inactive Andre Barreto MD 2012 Fever ICD-780.60 Inactive Andre Barreto MD 05/23 Actinic keratosis ICD-702.0 Inactive Andre Barreto MD Seborrheic keratosis ICD-702.19 Inactive Andre Barreto MD Dyshidrotic eczema, hands ICD-705.81 Inactive Andre Barreto MD Postmenopausal status ICD-V49.81 Inactive Andre Barreto MD Family history of osteoporosis ICD-V17.81 Inactive Andre Barreto MD Unsteady gait ICD-781.2 Inactive Andre Barreto MD Acute exacerbation of chronic bronchitis ICD-491.22 Inactive Solitario Howe MD Skin tag ICD-701.9 Inactive Andre Barreto MD 2014 Weakness, muscle ICD-728.87 Inactive Andre Barreto MD Medication List Medication Instructions Start Date Stop Date Generic Name NDC Status Provider Patient Instruction BACTROBAN 2 % EXTERNAL OINTMENT Apply to affected area BID MUPIROCIN 00033864445 Active Jillina Frazell CONSUMER SCIENCE TEACHER Active BACTRIM DS 800-160 MG ORAL TABLET 1 tab by mouth twice daily 2017 TRIMETHOPRIM-SULFAMETHOXAZOLE 48956236308 Active Jillina Frazell CONSUMER SCIENCE TEACHER Active GUAIFENESIN DM 400-20 MG ORAL TABLET 1 pill by mouth twice daily, if needed for cough DEXTROMETHORPHAN-GUAIFENESIN 95941160609 Active Jillina Frazell CONSUMER SCIENCE TEACHER Active CEFDINIR 300 MG ORAL CAPSULE by mouth twice a day CEFDINIR 26258967259 No Longer Active Jillina Frazell CONSUMER SCIENCE TEACHER Active BENZONATATE 200 MG ORAL CAPSULE 1 three times a day as needed for cough 03/27 BENZONATATE 52689003397 No Longer Active Luna Prabhakar Active ZITHROMAX Z-NEVAEH 250 MG ORAL TABLET 2 today and then 1 daily for 4 days 03/27 AZITHROMYCIN 20701769265 No Longer Active Luna Prabhakar Active PREDNISONE 20 MG ORAL TABLET 2 daily for 3 days then 1 daily for 3 days 03/27 PREDNISONE 66161629786 No Longer Active Luna Prabhakar Active ATORVASTATIN CALCIUM 40 MG ORAL TABLET 1 po qHS ATORVASTATIN CALCIUM 64858923170 Active Marcelle VERA Active CLOPIDOGREL BISULFATE 75 MG ORAL TABLET 1 po qd CLOPIDOGREL BISULFATE 79781225935 Active Andre Barreto MD Active FUROSEMIDE 20 MG ORAL TABLET 1 po qd PRN Edema FUROSEMIDE 93986150980 Active Andre Barreto MD Active PROAIR HFA 108 (90 Base) MCG/ACT INHALATION AEROSOL SOLUTION 2 puffs q4hr PRN Shortness of air/Wheezing ALBUTEROL SULFATE 44579437897 Active Andre Barreto MD Active ATORVASTATIN CALCIUM 80 MG ORAL TABLET 1 po qHS ATORVASTATIN CALCIUM 09474285635 No Longer Active Andre Barreto MD Active AMBIEN 5 MG ORAL TABLET 1 po qHS PRN Insomnia ZOLPIDEM TARTRATE 91098902779 Active Andre Barreto MD Active DETROL 2 MG ORAL TABLET 1 po qd TOLTERODINE TARTRATE 92303209903 Active Andre Barreto MD Active NITROGLYCERIN 0.4 MG SUBLINGUAL TABLET SUBLINGUAL 1 SL q5min PRN Chest pain up to 3 doses NITROGLYCERIN 72682980424 Active Andre Barreto MD Active TOPROL XL 50 MG ORAL TABLET EXTENDED RELEASE 24 HOUR 1 po qd METOPROLOL SUCCINATE 98286601684 Active Andre Barreto MD Active SYMBICORT 160-4.5 MCG/ACT INHALATION AEROSOL 2 puff BID BUDESONIDE-FORMOTEROL FUMARATE 24621480758 Active Cayla VERA Active FLUOXETINE HCL 40 MG ORAL CAPSULE 1 po qd FLUOXETINE HCL 01881405725 Active Andre Barreto MD Active BENICAR HCT 40-25 MG ORAL TABLET Take one by mouth daily OLMESARTAN MEDOXOMIL-HCTZ 87900556457 No Longer Active Andre Barreto MD Active LOSARTAN POTASSIUM-HCTZ 100-25 MG ORAL TABLET 1 po qd LOSARTAN POTASSIUM-HCTZ 07706773102 Active Andre Barreto MD Active BETAMETHASONE DIPROPIONATE 0.05 % EXTERNAL OINTMENT Apply to affected areas BID for up to 2 weeks BETAMETHASONE DIPROPIONATE 21571939873 No Longer Active Andre Barreto MD Active ZOFRAN 4 MG ORAL TABLET 1 po q6hr PRN Nausea ONDANSETRON HCL 15517457599 No Longer Active Andre Barreto MD Active CIPRO 500 MG ORAL TABLET 1 tablet by mouth twice daily CIPROFLOXACIN HCL 60058792777 No Longer Active Andre Barreto MD Active SYMBICORT 160-4.5 MCG/ACT INHALATION AEROSOL 2 puffs inhaled bid BUDESONIDE-FORMOTEROL FUMARATE 86240470822 No Longer Active Andre Barreto MD Active DICLOFENAC SODIUM 75 MG ORAL TABLET DELAYED RELEASE 1 tablet by mouth twice daily DICLOFENAC SODIUM 48998385247 No Longer Active Andre Barreto MD Active PROZAC 40 MG ORAL CAPSULE 1 cap by mouth at bedtime FLUOXETINE HCL 31967846535 No Longer Active Andre Barreto MD Active HYDROCODONE-ACETAMINOPHEN 5-325 MG ORAL TABLET 1 po q 6hr PRN Pain HYDROCODONE-ACETAMINOPHEN 65498346859 No Longer Active Andre Barreto MD Active TRAMADOL HCL 50 MG ORAL TABLET 2 po q 6 hrs prn TRAMADOL HCL 54491315281 Active Andre Barreto MD Active HYDROCODONE-ACETAMINOPHEN 5-325 MG ORAL TABLET 1 po q 6hr PRN Pain HYDROCODONE-ACETAMINOPHEN 5-325 MG ORAL TABLET 622422 HYDROCODONE- ACETAMINOPHEN Inactive PROZAC 40 MG ORAL CAPSULE 1 cap by mouth at bedtime PROZAC 40 MG ORAL CAPSULE 426853 FLUOXETINE HCL Inactive DICLOFENAC SODIUM 75 MG ORAL TABLET DELAYED RELEASE 1 tablet by mouth twice daily DICLOFENAC SODIUM 75 MG ORAL TABLET DELAYED RELEASE 582039 DICLOFENAC SODIUM Inactive SYMBICORT 160-4.5 MCG/ACT INHALATION AEROSOL 2 puffs inhaled bid SYMBICORT 160-4.5 MCG/ACT INHALATION AEROSOL BUDESONIDE-FORMOTEROL FUMARATE Inactive ZOFRAN 4 MG ORAL TABLET 1 po q6hr PRN Nausea ZOFRAN 4 MG ORAL TABLET 151320 ONDANSETRON HCL Inactive BETAMETHASONE DIPROPIONATE 0.05 % EXTERNAL OINTMENT Apply to affected areas BID for up to 2 weeks BETAMETHASONE DIPROPIONATE 0.05 % EXTERNAL OINTMENT 317137 BETAMETHASONE DIPROPIONATE Inactive BENICAR HCT 40-25 MG ORAL TABLET Take one by mouth daily BENICAR HCT 40-25 MG ORAL TABLET 678293 OLMESARTAN MEDOXOMIL-HCTZ Inactive ATORVASTATIN CALCIUM 80 MG ORAL TABLET 1 po qHS ATORVASTATIN CALCIUM 80 MG ORAL TABLET 905809 ATORVASTATIN CALCIUM Inactive PREDNISONE 20 MG ORAL TABLET 2 daily for 3 days then 1 daily for 3 days 03/27 PREDNISONE 20 MG ORAL TABLET 042261 PREDNISONE Inactive ZITHROMAX Z-NEVAEH 250 MG ORAL TABLET 2 today and then 1 daily for 4 days 03/27 ZITHROMAX Z-NEVAEH 250 MG ORAL TABLET 940643 AZITHROMYCIN Inactive BENZONATATE 200 MG ORAL CAPSULE 1 three times a day as needed for cough 03/27 BENZONATATE 200 MG ORAL CAPSULE 179993 BENZONATATE Inactive CIPRO 500 MG ORAL TABLET 1 tablet by mouth twice daily CIPRO 500 MG ORAL TABLET 533547 CIPROFLOXACIN HCL Inactive CEFDINIR 300 MG ORAL CAPSULE by mouth twice a day CEFDINIR 300 MG ORAL CAPSULE 685522 CEFDINIR Inactive Advance Directives Directive Description Start Date [...] Measured blood pressure, diastolic 68 mm[Hg] BP pta blood pressure, systolic 149 mm[Hg] BP sys [...] 6.2 % 4.3-6.0 cholesterol, serum 229 mg/dL 749-245 6085/07/24 triglyceride, serum, fasting 106 mg/dL 30-200 HDL cholesterol, serum 60 mg/dL 32-60 LDL cholesterol, serum 148 mg/dL 0-130 sodium, serum 139 mmol/L 396-294 3361/07/24 carbon dioxide, venous blood 34.8 mmol/L 21.0-32.0 [...] Panel - Chemistry cholesterol, serum 275 mg/dL 215-210 2561/11/07 triglyceride, serum, fasting 166 mg/dL 30-200 HDL cholesterol, serum 62 mg/dL 32-60 LDL cholesterol, serum 180 mg/dL 0-130 sodium, serum 141 mmol/L 403-002 8174/11/07 carbon dioxide, venous blood 26.3 mmol/L 21.0-32.0 [...] 0-19 Encounters Code Encounter Date Provider Facility CPT-55635 Level 3 Est. Patient 09:16:36 CDT David King APRN [facility] CPT-37481 Level 3 Est. Patient 09:24:01 LICENSED PESTICIDE APPLICATOR Dvaid King APRN [facility] CPT-86784 Level 3 Est. Patient 13:01:07 LICENSED PESTICIDE APPLICATOR Solitario Howe MD [facility] CPT-28738 Level 4 Est. Patient 10:26:48 LICENSED PESTICIDE APPLICATOR Andre Barreto MD [facility] CPT-85575 Level 4 Est. Patient 09:45:06 CDT Andre Barreto MD [facility] CPT-03480 Level 4 Est. Patient 11:53:39 LICENSED PESTICIDE APPLICATOR Andre Barreto MD [facility] CPT-24731 Level 4 Est. Patient 14:21:31 CDT Andre Barreto MD [facility] CPT-97416 Level 4 Est. Patient 15:24:17 CDT Andre Barreto MD [facility] CPT-20704 Level 3 Est. Patient 10:36:40 CDT Andre Barreto MD [facility] CPT-67457 Level 4 Est. Patient 11:27:43 CDT Andre Barreto MD [facility] CPT-38111 Level 3 Est. Patient 10:57:31 LICENSED PESTICIDE APPLICATOR Andre Barreto MD [facility] CPT-61241 Level 3 Est. Patient 13:53:13 LICENSED PESTICIDE APPLICATOR Andre Barreto MD [facility] CPT-58915 Level 3 Est. Patient 09:16:12 CDT Andre Barreto MD [facility] CPT-22792 Level 3 Est. Patient 14:50:35 CDT Andre Barreto MD [facility] Procedures Code Procedure Name Date Entry Date Standard Description CPT-13010 First Vx - Ix admin for Medicare patients 13:56:44 LICENSED PESTICIDE APPLICATOR CPT-79762 Zostavax Subcutaneous Solution Reconstituted 35791 UNT/0.65ML 12/22 13:56:44 LICENSED PESTICIDE APPLICATOR CPT-G0009 Administration of Pneumococcal Vaccine 10:12:50 CDT CPT-79613 Pneumovax 23 Injection Injectable 25 MCG/0.5ML 10:12:50 CDT CPT-G0439 Subsequent Annual Wellness Exam 09:49:25 CDT CPT-23538 First Vx - Ix admin for Medicare patients 17:55:11 LICENSED PESTICIDE APPLICATOR CPT-11470 Fluzone High-Dose Intramuscular Suspension 17:55:11 LICENSED PESTICIDE APPLICATOR CPT-11199 Venipuncture Draw Fee 14:11:36 CDT CPT-46443 Lipid - LAB USE ONLY 14:11:36 CDT CPT-30397 CMP - LAB USE ONLY 14:11:36 CDT CPT-G0438 Initial Annual Wellness Exam 13:29:06 CDT CPT-G0009 Administration of Pneumococcal Vaccine 13:26:57 CDT CPT-80263 Prevnar 13 Intramuscular Suspension 13:26:56 CDT 08/19 CPT-80436 Bone Density - XRAY USE ONLY 09:30:16 CDT CPT-Cryo Cryotherapy 08:59:26 LICENSED PESTICIDE APPLICATOR CPT-Cryo Cryotherapy 08:46:02 CDT CPT-50672 Chest 2V Frontal and Lat 14:02:13 LICENSED PESTICIDE APPLICATOR
--- OUTSIDE RECORDS SUMMARY | 2018-03-16 19:23 | XMS REPORT | Clinical Summary ---
Author Author Admin, EDUARDO Organization [facility] Address Unknown Phone Unavailable Allergies, Adverse Reactions, [...] MD Benign essential hypertension DYSPNEA 786.09 Resolved Ander Barreto MD Other dyspnea and respiratory abnormality FATIGUE 780.79 Resolved Andre Barreto MD Other malaise and fatigue DYSPNEA 786.05 Resolved Andre Barreto MD Shortness of breath Coronary artery disease 414.00 Active Andre Barreto MD Coronary atherosclerosis of unspecified type of vessel, [place] or graft Obstructive sleep apnea 327.23 Active [...] Elevated blood sugar 790.29 Inactive Marcelle Key RMIsabella Other abnormal glucose Glucose intolerance 271.3 Active [...] airway pressure rx V46.2 Active 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 on 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, supplemental oxygen Osteopenia 733.90 Active Pushpa Beverly APRN Disorder of bone and cartilage, unspecified Obstructive sleep apnea 327.23 Active Andre Barreto MD Obstructive sleep apnea (adult) (pediatric) Acute exacerbation of chronic bronchitis 491.22 Active Solitario Howe MD Obstructive chronic bronchitis with acute bronchitis DYSPNEA ICD-786.09 Inactive Andre Barreto MD 2012 [...] Barreto MD Family history of osteoporosis ICD-V17.81 Andressa Barreto MD Unsteady gait ICD-781.2 Andressa Barreto MD Medication List Medication Instructions Start Date Stop Date Generic Name NDC Status Provider Patient Instruction PREDNISONE 20 MG ORAL TABLET 2 daily for 3 days then 1 daily for 3 days 03/27 PREDNISONE 23521609993 Active Solitario Howe MD Active BENZONATATE 200 MG ORAL CAPSULE 1 three times a day as needed for cough 03/27 BENZONATATE 30837354027 Active Solitario Howe MD Active ZITHROMAX Z-NEVAEH 250 MG ORAL TABLET 2 today and then 1 daily for 4 days 03/27 AZITHROMYCIN 11535170949 Active Solitario Howe MD Active ATORVASTATIN CALCIUM 40 MG ORAL TABLET 1 po qHS ATORVASTATIN CALCIUM 98300416045 Active Marcelle Key RMA Active CLOPIDOGREL BISULFATE 75 MG ORAL TABLET 1 po qd CLOPIDOGREL BISULFATE 15986120899 Active Andre Barreto MD Active FUROSEMIDE 20 MG ORAL TABLET 1 po qd PRN Edema FUROSEMIDE 51102997134 Active Andre Barreto MD Active PROAIR HFA 108 (90 Base) MCG/ACT INHALATION AEROSOL SOLUTION 2 puffs q4hr PRN Shortness of air/Wheezing ALBUTEROL SULFATE 86424109226 Active Andre Barreto MD Active ATORVASTATIN CALCIUM 80 MG ORAL TABLET 1 po qHS ATORVASTATIN CALCIUM 43873710947 No Longer Active Andre Barreto MD Active AMBIEN 5 MG ORAL TABLET 1 po qHS PRN Insomnia ZOLPIDEM TARTRATE 62860873182 Active Andre Barreto MD Active DETROL 2 MG ORAL TABLET 1 po qd TOLTERODINE TARTRATE 75118192245 Active Andre Barreto MD Active NITROGLYCERIN 0.4 MG SUBLINGUAL TABLET SUBLINGUAL 1 SL q5min PRN Chest pain up to 3 doses NITROGLYCERIN 42388998636 Active Andre Barreto MD Active TOPROL XL 50 MG ORAL TABLET EXTENDED RELEASE 24 HOUR 1 po qd METOPROLOL SUCCINATE 42991966385 Active Andre Barreto MD Active SYMBICORT 160-4.5 MCG/ACT INHALATION AEROSOL 2 puff BID BUDESONIDE-FORMOTEROL FUMARATE 05260599309 Active Cayla Flanagan [facility] Active FLUOXETINE HCL 40 MG ORAL CAPSULE 1 po qd FLUOXETINE HCL 52508220851 Active Andre Barreto MD Active BENICAR HCT 40-25 MG ORAL TABLET Take one by mouth daily OLMESARTAN MEDOXOMIL-HCTZ 21679564065 No Longer Active Andre Barreto MD Active LOSARTAN POTASSIUM-HCTZ 100-25 MG ORAL TABLET 1 po qd LOSARTAN POTASSIUM-HCTZ 06628268930 Active Andre Barreto MD Active BETAMETHASONE DIPROPIONATE 0.05 % EXTERNAL OINTMENT Apply to affected areas BID for up to 2 weeks BETAMETHASONE DIPROPIONATE 59018856834 No Longer Active Andre Barreto MD Active ZOFRAN 4 MG ORAL TABLET 1 po q6hr PRN Nausea ONDANSETRON HCL 61828058290 No Longer Active Andre Barreto MD Active CIPRO 500 MG ORAL TABLET 1 tablet by mouth twice daily CIPROFLOXACIN HCL 19767050082 No Longer Active Andre Barreto MD Active SYMBICORT 160-4.5 MCG/ACT INHALATION AEROSOL 2 puffs inhaled bid BUDESONIDE-FORMOTEROL FUMARATE 66613384802 No Longer Active Andre Barreto MD Active DICLOFENAC SODIUM 75 MG ORAL TABLET DELAYED RELEASE 1 tablet by mouth twice daily DICLOFENAC SODIUM 03471714880 No Longer Active Andre Barreto MD Active PROZAC 40 MG ORAL CAPSULE 1 cap by mouth at bedtime FLUOXETINE HCL 42980618320 No Longer Active Andre Barreto MD Active HYDROCODONE-ACETAMINOPHEN 5-325 MG ORAL TABLET 1 po q 6hr PRN Pain HYDROCODONE-ACETAMINOPHEN 29900521127 No Longer Active Andre Barreto MD Active TRAMADOL HCL 50 MG ORAL TABLET 2 po q 6 hrs prn TRAMADOL HCL 13852501566 Active Andre Barreto MD Active HYDROCODONE-ACETAMINOPHEN 5-325 MG ORAL TABLET 1 po q 6hr PRN Pain HYDROCODONE-ACETAMINOPHEN 5-325 MG ORAL TABLET 371382 HYDROCODONE- ACETAMINOPHEN Inactive PROZAC 40 MG ORAL CAPSULE 1 cap by mouth at bedtime PROZAC 40 MG ORAL CAPSULE 054868 FLUOXETINE HCL Inactive DICLOFENAC SODIUM 75 MG ORAL TABLET DELAYED RELEASE 1 tablet by mouth twice daily DICLOFENAC SODIUM 75 MG ORAL TABLET DELAYED RELEASE 669707 DICLOFENAC SODIUM Inactive SYMBICORT 160-4.5 MCG/ACT INHALATION AEROSOL 2 puffs inhaled bid SYMBICORT 160-4.5 MCG/ACT INHALATION AEROSOL BUDESONIDE-FORMOTEROL FUMARATE Inactive ZOFRAN 4 MG ORAL TABLET 1 po q6hr PRN Nausea ZOFRAN 4 MG ORAL TABLET 158344 ONDANSETRON HCL Inactive BETAMETHASONE DIPROPIONATE 0.05 % EXTERNAL OINTMENT Apply to affected areas BID for up to 2 weeks BETAMETHASONE DIPROPIONATE 0.05 % EXTERNAL OINTMENT 170799 BETAMETHASONE DIPROPIONATE Inactive BENICAR HCT 40-25 MG ORAL TABLET Take one by mouth daily BENICAR HCT 40-25 MG ORAL TABLET 149926 OLMESARTAN MEDOXOMIL-HCTZ Inactive ATORVASTATIN CALCIUM 80 MG ORAL TABLET 1 po qHS ATORVASTATIN CALCIUM 80 MG ORAL TABLET 842220 ATORVASTATIN CALCIUM Inactive CIPRO 500 MG ORAL TABLET 1 tablet by mouth twice daily CIPRO 500 MG ORAL TABLET 253707 CIPROFLOXACIN HCL Inactive Advance Directives Directive Description Start Date DISCUSSED WITH PATIENT -- NO DECISION MADE Vital Signs Date Name Value Unit Range Description blood pressure, diastolic 52 mm[Hg] BP pat [...] 6.2 % 4.3-6.0 cholesterol, serum 229 mg/dL 484-994 2000/07/24 triglyceride, serum, fasting 106 mg/dL 30-200 HDL cholesterol, serum 60 mg/dL 32-60 LDL cholesterol, serum 148 mg/dL 0-130 sodium, serum 139 mmol/L 142-563 0458/07/24 carbon dioxide, venous blood 34.8 mmol/L 21.0-32.0 [...] Panel - Chemistry cholesterol, serum 275 mg/dL 335-742 4055/11/07 triglyceride, serum, fasting 166 mg/dL 30-200 HDL cholesterol, serum 62 mg/dL 32-60 LDL cholesterol, serum 180 mg/dL 0-130 sodium, serum 141 mmol/L 598-577 1973/11/07 carbon dioxide, venous blood 26.3 mmol/L 21.0-32.0 [...] 0-19 Encounters Code Encounter Date Provider Facility CPT-92608 Level 3 Est. Patient 13:01:07 THERAPIST'S ASSISTANT Solitario Howe MD [facility] CPT-22032 Level 4 Est. Patient 10:26:48 THERAPIST'S ASSISTANT Andre Barreto MD [facility] CPT-87688 Level 4 Est. Patient 09:45:06 CDT Andre Barreto MD [facility] CPT-29274 Level 4 Est. Patient 11:53:39 THERAPIST'S ASSISTANT Andre Barreto MD [facility] CPT-79790 Level 4 Est. Patient 14:21:31 CDT Andre Barreto MD [facility] CPT-36803 Level 4 Est. Patient 15:24:17 CDT Andre Barreto MD [facility] CPT-06901 Level 3 Est. Patient 10:36:40 CDT Andre Barreto MD [facility] CPT-18769 Level 4 Est. Patient 11:27:43 CDT Andre Barreto MD [facility] CPT-73583 Level 3 Est. Patient 10:57:31 THERAPIST'S ASSISTANT Andre Barreto MD [facility] CPT-56511 Level 3 Est. Patient 13:53:13 THERAPIST'S ASSISTANT Andre Barreto MD [facility] CPT-14701 Level 3 Est. Patient 09:16:12 CDT Andre Barreto MD [facility] CPT-87888 Level 3 Est. Patient 14:50:35 CDT Andre Barreto MD [facility] Procedures Code Procedure Name Date Entry Date Standard Description CPT-76183 First Vx - Ix admin for Medicare patients 13:56:44 THERAPIST'S ASSISTANT CPT-70332 Zostavax Subcutaneous Solution Reconstituted 01616 UNT/0.65ML 12/22 13:56:44 THERAPIST'S ASSISTANT CPT-G0009 Administration of Pneumococcal Vaccine 10:12:50 CDT CPT-92585 Pneumovax 23 Injection Injectable 25 MCG/0.5ML 10:12:50 CDT CPT-G0439 Subsequent Annual Wellness Exam 09:49:25 CDT CPT-33886 First Vx - Ix admin for Medicare patients 17:55:11 THERAPIST'S ASSISTANT CPT-39739 Fluzone High-Dose Intramuscular Suspension 17:55:11 THERAPIST'S ASSISTANT CPT-16158 Venipuncture Draw Fee 14:11:36 CDT CPT-99806 Lipid - LAB USE ONLY 14:11:36 CDT CPT-27472 CMP - LAB USE ONLY 14:11:36 CDT CPT-G0438 Initial Annual Wellness Exam 13:29:06 CDT CPT-G0009 Administration of Pneumococcal Vaccine 13:26:57 CDT CPT-57996 Prevnar 13 Intramuscular Suspension 13:26:56 CDT 08/19 CPT-29531 Bone Density - XRAY USE ONLY 09:30:16 CDT CPT-Cryo Cryotherapy 08:59:26 THERAPIST'S ASSISTANT CPT-Cryo Cryotherapy 08:46:02 CDT CPT-98008 Chest 2V Frontal and Lat 14:02:13 THERAPIST'S ASSISTANT
--- OUTSIDE RECORDS SUMMARY | 2018-03-16 19:24 | XMS REPORT | Clinical Summary ---
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, supplemental oxygen Osteopenia 733.90 Active Pushpa Beverly APRN Disorder of bone and cartilage, unspecified Obstructive sleep apnea 327.23 Active Andre Barreto MD Obstructive sleep apnea (adult) (pediatric) DYSPNEA ICD-786.09 Inactive Andre Barreto MD 2012 FATIGUE ICD-780.79 Inactive Andre Barreto MD 2012 DYSPNEA ICD-786.05 Inactive Andre Barreto MD 2012 Fever ICD-780.60 Inactive Andre Barreto MD 05/23 Seborrheic keratosis ICD-702.19 Inactive Andre Barreto MD Skin tag ICD-701.9 Inactive Andre Barreto MD 2014 Weakness, muscle ICD-728.87 Inactive Andre Barreto MD Dyshidrotic eczema, hands ICD-705.81 Inactive Andre Barreto MD Postmenopausal status ICD-V49.81 Inactive Andre Barreto MD Family history of osteoporosis ICD-V17.81 Inactive Andre Barreto MD Unsteady gait ICD-781.2 Inactive Andre Barreto MD Actinic keratosis ICD-702.0 Inactive Andre Barreto MD Medication List Medication Instructions Start Date Stop Date Generic Name NDC Status Provider Patient Instruction CLOPIDOGREL BISULFATE 75 MG ORAL TABS 1 po qd CLOPIDOGREL BISULFATE 96131196232 Active Andre Barreto MD Active FUROSEMIDE 20 MG ORAL TABS 1 po qd PRN Edema FUROSEMIDE 88821354118 Active Anrde Barreto MD Active PROAIR HFA 108 (90 BASE) MCG/ACT INH AERS 2 puffs q4hr PRN Shortness of air/ Wheezing ALBUTEROL SULFATE 72679404357 Active Andre Barreto MD Active ATORVASTATIN CALCIUM 80 MG TABS 1 po qHS ATORVASTATIN CALCIUM 12699334684 No Longer Active Andre Barreto MD Active AMBIEN 5 MG TABS 1 po qHS PRN Insomnia ZOLPIDEM TARTRATE 08322599045 Active Andre Barreto MD Active DETROL 2 MG ORAL TABS 1 po qd TOLTERODINE TARTRATE 21660906639 Active Andre Barreto MD Active NITROGLYCERIN 0.4 MG SL SUBL 1 SL q5min PRN Chest pain up to 3 doses NITROGLYCERIN 66431678409 Active Andre Barreto MD Active TOPROL XL 50 MG ORAL TC48N-RFL 1 po qd METOPROLOL SUCCINATE 98677005489 Active Andre Barreto MD Active SYMBICORT 160-4.5 MCG/ACT AERO 2 puff BID BUDESONIDE- FORMOTEROL FUMARATE 58526316604 Active Cayla Flanagan [facility] Active FLUOXETINE HCL 40 MG ORAL CAPS 1 po qd FLUOXETINE HCL 87210729124 Active Andre Barreto MD Active BENICAR HCT 40-25 MG TABS Take one by mouth daily OLMESARTAN MEDOXOMIL-HCTZ 83717375442 No Longer Active Andre Barreto MD Active LOSARTAN POTASSIUM-HCTZ 100-25 MG TABS 1 po qd LOSARTAN POTASSIUM-HCTZ 27888096605 Active Andre Barreto MD Active BETAMETHASONE DIPROPIONATE 0.05 % OINT Apply to affected areas BID for up to 2 weeks BETAMETHASONE DIPROPIONATE 76712101419 No Longer Active Andre Barreto MD Active ZOFRAN 4 MG TABS 1 po q6hr PRN Nausea ONDANSETRON HCL 71058244297 No Longer Active Andre Barreto MD Active CIPRO 500 MG TAB 1 tablet by mouth twice daily CIPROFLOXACIN HCL 61246161173 No Longer Active Andre Barreto MD Active SYMBICORT 160-4.5 MCG/ACT AERO 2 puffs inhaled bid BUDESONIDE- FORMOTEROL FUMARATE 73625903886 No Longer Active Andre Barreto MD Active DICLOFENAC SODIUM 75 MG TBEC 1 tablet by mouth twice daily DICLOFENAC SODIUM 52988386363 No Longer Active Andre Barreto MD Active PROZAC 40 MG CAPS 1 cap by mouth at bedtime FLUOXETINE HCL 59781372135 No Longer Active Andre Barreto MD Active HYDROCODONE-ACETAMINOPHEN 5-325 MG TABS 1 po q 6hr PRN Pain HYDROCODONE-ACETAMINOPHEN 58961386934 No Longer Active Andre Barreto MD Active TRAMADOL HCL 50 MG TABS 2 po q 6 hrs prn TRAMADOL HCL 59141950805 Active Andre Barreto MD Active BETAMETHASONE DIPROPIONATE 0.05 % OINT Apply to affected areas BID for up to 2 weeks BETAMETHASONE DIPROPIONATE 0.05 % OINT 421398 BETAMETHASONE DIPROPIONATE Inactive CIPRO 500 MG TAB 1 tablet by mouth twice daily CIPRO 500 MG TAB 013607 CIPROFLOXACIN HCL Inactive ZOFRAN 4 MG TABS 1 po q6hr PRN Nausea ZOFRAN 4 MG TABS 518199 ONDANSETRON HCL Inactive DICLOFENAC SODIUM 75 MG TBEC 1 tablet by mouth twice daily DICLOFENAC SODIUM 75 MG TBEC 585779 DICLOFENAC SODIUM Inactive PROZAC 40 MG CAPS 1 cap by mouth at bedtime PROZAC 40 MG CAPS 184219 FLUOXETINE HCL Inactive ATORVASTATIN CALCIUM 80 MG TABS 1 po qHS ATORVASTATIN CALCIUM 80 MG TABS 709660 ATORVASTATIN CALCIUM Inactive HYDROCODONE-ACETAMINOPHEN 5-325 MG TABS 1 po q 6hr PRN Pain HYDROCODONE-ACETAMINOPHEN 5-325 MG TABS 938699 HYDROCODONE-ACETAMINOPHEN Inactive BENICAR HCT 40-25 MG TABS Take one by mouth daily BENICAR HCT 40-25 MG TABS 853956 OLMESARTAN MEDOXOMIL-HCTZ Inactive SYMBICORT 160-4.5 MCG/ACT AERO 2 puffs inhaled bid SYMBICORT 160-4.5 MCG/ACT AERO BUDESONIDE-FORMOTEROL FUMARATE Inactive Advance Directives Directive Description Start Date [...] % 11.6-14.8 platelet count 263 10^3/MM^3 10*3/mm3 666-501 0952/07/24 mean corpuscular volume, RBC 92 fL 80-97 hematocrit, blood 41.5 % 37.0-47.0 hemoglobin, blood 13.5 g/dL 12.0-16.0 erythrocyte (RBC) count 4.49 10^6/MM^3 10*6/mm3 3.80-5.80 leukocyte count, blood 6.7 10^3/MM^3 10*3/mm3 4.6-10.2 Lab Report: CBC - Lab microalbumin, urine [...] 6.2 % 4.3-6.0 cholesterol, serum 229 mg/dL 580-283 5936/07/24 triglyceride, serum, fasting 106 mg/dL 30-200 HDL cholesterol, serum 60 mg/dL 32-60 LDL cholesterol, serum 148 mg/dL 0-130 sodium, serum 139 mmol/L 847-124 3400/07/24 carbon dioxide, venous blood 34.8 mmol/L 21.0-32.0 [...] Panel - Chemistry cholesterol, serum 275 mg/dL 344-291 6887/11/07 triglyceride, serum, fasting 166 mg/dL 30-200 HDL cholesterol, serum 62 mg/dL 32-60 LDL cholesterol, serum 180 mg/dL 0-130 sodium, serum 141 mmol/L 412-657 0803/11/07 carbon dioxide, venous blood 26.3 mmol/L 21.0-32.0 [...] 0-19 Encounters Code Encounter Date Provider Facility CPT-90533 Level 4 Est. Patient 10:26:48 COPPER PLATE PRINTER Andre Barreto MD [facility] CPT-09983 Level 4 Est. Patient 09:45:06 CDT Andre Barreto MD [facility] CPT-13560 Level 4 Est. Patient 11:53:39 COPPER PLATE PRINTER Andre Barreto MD [facility] CPT-95296 Level 4 Est. Patient 14:21:31 CDT Andre Barreto MD [facility] CPT-92390 Level 4 Est. Patient 15:24:17 CDT Andre Barreto MD [facility] CPT-84434 Level 3 Est. Patient 10:36:40 CDT Andre Barreto MD [facility] CPT-17340 Level 4 Est. Patient 11:27:43 CDT Andre Barreto MD [facility] CPT-18902 Level 3 Est. Patient 10:57:31 COPPER PLATE PRINTER Andre Barreto MD [facility] CPT-23348 Level 3 Est. Patient 13:53:13 COPPER PLATE PRINTER Andre Barreto MD [facility] CPT-49962 Level 3 Est. Patient 09:16:12 CDT Andre Barreto MD [facility] CPT-37039 Level 3 Est. Patient 14:50:35 CDT Andre Barreto MD [facility] Procedures Code Procedure Name Date Entry Date Standard Description CPT-31264 First Vx - Ix admin for Medicare patients 13:56:44 COPPER PLATE PRINTER CPT-17029 Zostavax Subcutaneous Solution Reconstituted 37000 UNT/0.65ML 12/22 13:56:44 COPPER PLATE PRINTER CPT-G0009 Administration of Pneumococcal Vaccine 10:12:50 CDT CPT-95603 Pneumovax 23 Injection Injectable 25 MCG/0.5ML 10:12:50 CDT CPT-G0439 [facility] Annual Wellness Exam 09:49:25 CDT CPT-86466 First Vx - Ix admin for Medicare patients 17:55:11 COPPER PLATE PRINTER CPT-34444 Fluzone High-Dose Intramuscular Suspension 17:55:11 COPPER PLATE PRINTER CPT-90907 Venipuncture Draw Fee 14:11:36 CDT CPT-42436 Lipid - LAB USE ONLY 14:11:36 CDT CPT-12081 CMP - LAB USE ONLY 14:11:36 CDT CPT-G0438 Initial Annual Wellness Exam 13:29:06 CDT CPT-G0009 Administration of Pneumococcal Vaccine 13:26:57 CDT CPT-50252 Prevnar 13 Intramuscular Suspension 13:26:56 CDT 08/19 CPT-01495 Bone Density - XRAY USE ONLY 09:30:16 CDT CPT-Cryo Cryotherapy 08:59:26 COPPER PLATE PRINTER CPT-Cryo Cryotherapy 08:46:02 CDT CPT-16103 Chest 2V Frontal and Lat 14:02:13 COPPER PLATE PRINTER
--- OUTSIDE RECORDS SUMMARY | 2018-03-16 19:25 | XMS REPORT | Clinical Summary ---
Author Author Admin, EDUARDO Organization [facility] Address Unknown Phone Unavailable Allergies, Adverse Reactions, Alerts Allergy Name Reaction Description Start Date Severity Status Provider SULFA Mild No Longer Active Jillina Frazell COATER OPERATOR PENICILLIN Mild No Longer Active Jillina Frazell COATER OPERATOR ZINC Mild No Longer Active Jillina Frazell COATER OPERATOR SULFA Critical No Longer Active Marcelle [...] Coronary atherosclerosis of unspecified type of vessel, seneca or graft Obstructive sleep apnea 327.23 Active [...] airway pressure rx V46.2 Active Pushpa Hernandez COATER OPERATOR Other dependence on machines, supplemental oxygen Osteopenia 733.90 Active Pushpa Hernandez APRN Disorder of bone and cartilage, unspecified Obstructive sleep apnea 327.23 Active Andre Barreto MD Obstructive sleep apnea (adult) (pediatric) Acute exacerbation of chronic bronchitis 491.22 Inactive Solitario Howe MD Obstructive chronic bronchitis with acute bronchitis Sinusitis 473.9 Active David King COATER OPERATOR Unspecified sinusitis (chronic) Abscess, skin 682.9 [...] Apply to affected area BID 05/18 MUPIROCIN 33099214534 No Longer Active Moira Price MA Active CLINDAMYCIN HCL 300 MG ORAL CAPSULE 1 po QID x 7 days CLINDAMYCIN HCL 67150111616 No Longer Active Jillina Frazell COATER OPERATOR Active BACTRIM DS 800-160 MG ORAL TABLET 1 tab by mouth twice daily 2017 TRIMETHOPRIM-SULFAMETHOXAZOLE 98044571199 No Longer Active Jillina Frazell COATER OPERATOR Active GUAIFENESIN DM 400-20 MG ORAL TABLET 1 pill by mouth twice daily, if needed for cough DEXTROMETHORPHAN-GUAIFENESIN 02978395532 Active Jillina Frazell COATER OPERATOR Active CEFDINIR 300 MG ORAL CAPSULE by mouth twice a day CEFDINIR 62331592627 No Longer Active Jillina Frazell COATER OPERATOR Active BENZONATATE 200 MG ORAL CAPSULE 1 three times a day as needed for cough 03/27 BENZONATATE 65133394066 No Longer Active Luna Prabhakar Active ZITHROMAX Z-NEVAEH 250 MG ORAL TABLET 2 today and then 1 daily for 4 days 03/27 AZITHROMYCIN 98585101619 No Longer Active Luna Prabhakar Active PREDNISONE 20 MG ORAL TABLET 2 daily for 3 days then 1 daily for 3 days 03/27 PREDNISONE 06113511911 No Longer Active Luna Prabhakar Active ATORVASTATIN CALCIUM 40 MG ORAL TABLET 1 po qHS ATORVASTATIN CALCIUM 31855710076 Active Marcelle VERA Active CLOPIDOGREL BISULFATE 75 MG ORAL TABLET 1 po qd CLOPIDOGREL BISULFATE 55954360482 Active Andre Barreto MD Active FUROSEMIDE 20 MG ORAL TABLET 1 po qd PRN Edema FUROSEMIDE 94726615997 Active Andre Barreto MD Active PROAIR HFA 108 (90 Base) MCG/ACT INHALATION AEROSOL SOLUTION 2 puffs q4hr PRN Shortness of air/Wheezing ALBUTEROL SULFATE 97735920923 Active Andre Barreto MD Active ATORVASTATIN CALCIUM 80 MG ORAL TABLET 1 po qHS ATORVASTATIN CALCIUM 94632817604 No Longer Active Andre Barreto MD Active AMBIEN 5 MG ORAL TABLET 1 po qHS PRN Insomnia ZOLPIDEM TARTRATE 64067260642 Active Andre Barreto MD Active DETROL 2 MG ORAL TABLET 1 po qd TOLTERODINE TARTRATE 80995042924 Active Andre Barreto MD Active NITROGLYCERIN 0.4 MG SUBLINGUAL TABLET SUBLINGUAL 1 SL q5min PRN Chest pain up to 3 doses NITROGLYCERIN 50481268054 Active Andre Barreto MD Active TOPROL XL 50 MG ORAL TABLET EXTENDED RELEASE 24 HOUR 1 po qd METOPROLOL SUCCINATE 80623319347 Active Andre Barreto MD Active SYMBICORT 160-4.5 MCG/ACT INHALATION AEROSOL 2 puff BID BUDESONIDE-FORMOTEROL FUMARATE 86404232959 Active Cayla VERA Active FLUOXETINE HCL 40 MG ORAL CAPSULE 1 po qd FLUOXETINE HCL 39866728797 Active Andre Barreto MD Active BENICAR HCT 40-25 MG ORAL TABLET Take one by mouth daily OLMESARTAN MEDOXOMIL-HCTZ 63562014155 No Longer Active Andre Barreto MD Active LOSARTAN POTASSIUM-HCTZ 100-25 MG ORAL TABLET 1 po qd LOSARTAN POTASSIUM-HCTZ 51659383799 Active Andre Barreto MD Active BETAMETHASONE DIPROPIONATE 0.05 % EXTERNAL OINTMENT Apply to affected areas BID for up to 2 weeks BETAMETHASONE DIPROPIONATE 50700356294 No Longer Active Andre Barreto MD Active ZOFRAN 4 MG ORAL TABLET 1 po q6hr PRN Nausea ONDANSETRON HCL 62511705537 No Longer Active Andre Barreto MD Active CIPRO 500 MG ORAL TABLET 1 tablet by mouth twice daily CIPROFLOXACIN HCL 26548204804 No Longer Active Andre Barreto MD Active SYMBICORT 160-4.5 MCG/ACT INHALATION AEROSOL 2 puffs inhaled bid BUDESONIDE-FORMOTEROL FUMARATE 02177107588 No Longer Active Andre Barreto MD Active DICLOFENAC SODIUM 75 MG ORAL TABLET DELAYED RELEASE 1 tablet by mouth twice daily DICLOFENAC SODIUM 59537376891 No Longer Active Andre Barreto MD Active PROZAC 40 MG ORAL CAPSULE 1 cap by mouth at bedtime FLUOXETINE HCL 29390660393 No Longer Active Andre Barreto MD Active HYDROCODONE-ACETAMINOPHEN 5-325 MG ORAL TABLET 1 po q 6hr PRN Pain HYDROCODONE-ACETAMINOPHEN 10236369971 No Longer Active Andre Barreto MD Active TRAMADOL HCL 50 MG ORAL TABLET 2 po q 6 hrs prn TRAMADOL HCL 26197864389 Active Andre Barreto MD Active HYDROCODONE-ACETAMINOPHEN 5-325 MG ORAL TABLET 1 po q 6hr PRN Pain HYDROCODONE-ACETAMINOPHEN 5-325 MG ORAL TABLET 677789 HYDROCODONE- ACETAMINOPHEN Inactive PROZAC 40 MG ORAL CAPSULE 1 cap by mouth at bedtime PROZAC 40 MG ORAL CAPSULE 507954 FLUOXETINE HCL Inactive DICLOFENAC SODIUM 75 MG ORAL TABLET DELAYED RELEASE 1 tablet by mouth twice daily DICLOFENAC SODIUM 75 MG ORAL TABLET DELAYED RELEASE 340835 DICLOFENAC SODIUM Inactive SYMBICORT 160-4.5 MCG/ACT INHALATION AEROSOL 2 puffs inhaled bid SYMBICORT 160-4.5 MCG/ACT INHALATION AEROSOL BUDESONIDE-FORMOTEROL FUMARATE Inactive ZOFRAN 4 MG ORAL TABLET 1 po q6hr PRN Nausea ZOFRAN 4 MG ORAL TABLET 286925 ONDANSETRON HCL Inactive BETAMETHASONE DIPROPIONATE 0.05 % EXTERNAL OINTMENT Apply to affected areas BID for up to 2 weeks BETAMETHASONE DIPROPIONATE 0.05 % EXTERNAL OINTMENT 166034 BETAMETHASONE DIPROPIONATE Inactive BENICAR HCT 40-25 MG ORAL TABLET Take one by mouth daily BENICAR HCT 40-25 MG ORAL TABLET 301554 OLMESARTAN MEDOXOMIL-HCTZ Inactive ATORVASTATIN CALCIUM 80 MG ORAL TABLET 1 po qHS ATORVASTATIN CALCIUM 80 MG ORAL TABLET 821713 ATORVASTATIN CALCIUM Inactive PREDNISONE 20 MG ORAL TABLET 2 daily for 3 days then 1 daily for 3 days 03/27 PREDNISONE 20 MG ORAL TABLET 689513 PREDNISONE Inactive ZITHROMAX Z-NEVAEH 250 MG ORAL TABLET 2 today and then 1 daily for 4 days 03/27 ZITHROMAX Z-NEVAEH 250 MG ORAL TABLET 442710 AZITHROMYCIN Inactive BENZONATATE 200 MG ORAL CAPSULE 1 three times a day as needed for cough 03/27 BENZONATATE 200 MG ORAL CAPSULE 812502 BENZONATATE Inactive BACTRIM DS 800-160 MG ORAL TABLET 1 tab by mouth twice daily 2017 BACTRIM DS 800-160 MG ORAL TABLET 212980 TRIMETHOPRIM- SULFAMETHOXAZOLE Inactive BACTROBAN 2 % EXTERNAL OINTMENT Apply to affected area BID 05/18 BACTROBAN 2 % EXTERNAL OINTMENT 071167 MUPIROCIN Inactive CIPRO 500 MG ORAL TABLET 1 tablet by mouth twice daily CIPRO 500 MG ORAL TABLET 778489 CIPROFLOXACIN HCL Inactive CEFDINIR 300 MG ORAL CAPSULE by mouth twice a day CEFDINIR 300 MG ORAL CAPSULE 715814 CEFDINIR Inactive CLINDAMYCIN HCL 300 MG ORAL CAPSULE 1 po QID x 7 days CLINDAMYCIN HCL 300 MG ORAL CAPSULE 178787 CLINDAMYCIN HCL Inactive Advance Directives Directive Description [...] 6.2 % 4.3-6.0 cholesterol, serum 229 mg/dL 791-409 2238/07/24 triglyceride, serum, fasting 106 mg/dL 30-200 HDL cholesterol, serum 60 mg/dL 32-60 LDL cholesterol, serum 148 mg/dL 0-130 sodium, serum 139 mmol/L 314-657 6696/07/24 carbon dioxide, venous blood 34.8 mmol/L 21.0-32.0 [...] Panel - Chemistry cholesterol, serum 275 mg/dL 580-750 5994/11/07 triglyceride, serum, fasting 166 mg/dL 30-200 HDL cholesterol, serum 62 mg/dL 32-60 LDL cholesterol, serum 180 mg/dL 0-130 sodium, serum 141 mmol/L 446-825 1117/11/07 carbon dioxide, venous blood 26.3 mmol/L 21.0-32.0 [...] 0-19 Encounters Code Encounter Date Provider Facility CPT-56831 Level 3 Est. Patient 14:29:01 CDT Esa Jackson MD [facility] CPT-43922 Level 3 Est. Patient 14:06:16 CDT Andre Barreto MD [facility] CPT-01935 Level 3 Est. Patient 09:16:36 CDT David King [facility] CPT-52285 Level 3 Est. Patient 09:24:01 PRODUCTION SERVICE MANAGER David King [facility] CPT-51276 Level 3 Est. Patient 13:01:07 PRODUCTION SERVICE MANAGER Solitario Howe MD [facility] CPT-74008 Level 4 Est. Patient 10:26:48 PRODUCTION SERVICE MANAGER Andre Barreto MD [facility] CPT-51960 Level 4 Est. Patient 09:45:06 CDT Andre Barreto MD [facility] CPT-25762 Level 4 Est. Patient 11:53:39 PRODUCTION SERVICE MANAGER Andre Barreto MD [facility] CPT-69796 Level 4 Est. Patient 14:21:31 CDT Andre Barreto MD [facility] CPT-53518 Level 4 Est. Patient 15:24:17 CDT Andre Barreto MD [facility] CPT-63339 Level 3 Est. Patient 10:36:40 CDT Andre Barreto MD [facility] CPT-65274 Level 4 Est. Patient 11:27:43 CDT Andre Barreto MD [facility] CPT-81443 Level 3 Est. Patient 10:57:31 PRODUCTION SERVICE MANAGER Andre Barreto MD [facility] CPT-84721 Level 3 Est. Patient 13:53:13 PRODUCTION SERVICE MANAGER Andre Barreto MD [facility] CPT-70004 Level 3 Est. Patient 09:16:12 CDT Andre Barreto MD [facility] CPT-41126 Level 3 Est. Patient 14:50:35 CDT Andre Barreto MD [facility] Procedures Code Procedure Name Date Entry Date Standard Description CPT-06612 Postop F/U Visit 14:31:27 CDT CPT-57359 Postop F/U Visit 14:30:20 CDT CPT-29788 Sono pelvis coley bladder only - XRAY USE ONLY 15:07:39 CDT CPT-43136 First Vx - Ix admin for Medicare patients 13:56:44 PRODUCTION SERVICE MANAGER CPT-96431 Zostavax Subcutaneous Solution Reconstituted 78895 UNT/0.65ML 12/22 13:56:44 PRODUCTION SERVICE MANAGER CPT-G0009 Administration of Pneumococcal Vaccine 10:12:50 CDT CPT-28551 Pneumovax 23 Injection Injectable 25 MCG/0.5ML 10:12:50 CDT CPT-G0439 Subsequent Annual Wellness Exam 09:49:25 CDT CPT-35265 First Vx - Ix admin for Medicare patients 17:55:11 PRODUCTION SERVICE MANAGER CPT-55353 Fluzone High-Dose Intramuscular Suspension 17:55:11 PRODUCTION SERVICE MANAGER CPT-68747 Venipuncture Draw Fee 14:11:36 CDT CPT-65007 Lipid - LAB USE ONLY 14:11:36 CDT CPT-94920 CMP - LAB USE ONLY 14:11:36 CDT CPT-G0438 Initial Annual Wellness Exam 13:29:06 CDT CPT-G0009 Administration of Pneumococcal Vaccine 13:26:57 CDT CPT-07869 Prevnar 13 Intramuscular Suspension 13:26:56 CDT 08/19 CPT-83301 Bone Density - XRAY USE ONLY 09:30:16 CDT CPT-Cryo Cryotherapy 08:59:26 PRODUCTION SERVICE MANAGER CPT-Cryo Cryotherapy 08:46:02 CDT CPT-81035 Chest 2V Frontal and Lat 14:02:13 PRODUCTION SERVICE MANAGER
--- OUTSIDE RECORDS SUMMARY | 2018-03-16 19:25 | XMS REPORT | Clinical Summary ---
Author Author Admin, E Organization [facility] Address Unknown Phone Unavailable Allergies, Adverse Reactions, [...] Coronary atherosclerosis of unspecified type of vessel, [place] or graft Obstructive sleep apnea 327.23 Active [...] ORAL TABS 1 po qd CLOPIDOGREL BISULFATE 22937068208 Active Andre Barreto MD Active FUROSEMIDE 20 MG ORAL TABS 1 po qd PRN Edema FUROSEMIDE 39789696236 Active Andre Barreto MD Active PROAIR HFA 108 (90 BASE) MCG/ACT INH AERS 2 puffs q4hr PRN Shortness of air/ Wheezing ALBUTEROL SULFATE 86256970436 Active Andre Barreto MD Active ATORVASTATIN CALCIUM 80 MG TABS 1 po qHS ATORVASTATIN CALCIUM 58769428978 No Longer Active Andre Barreto MD Active AMBIEN 5 MG TABS 1 po qHS PRN Insomnia ZOLPIDEM TARTRATE 28214979929 Active Andre Barreto MD Active DETROL 2 MG ORAL TABS 1 po qd TOLTERODINE TARTRATE 72651200269 Active Andre Barreto MD Active NITROGLYCERIN 0.4 MG SL SUBL 1 SL q5min PRN Chest pain up to 3 doses NITROGLYCERIN 60854235176 Active Andre Barreto MD Active TOPROL XL 50 MG ORAL [id number] 1 po qd METOPROLOL SUCCINATE 77366653821 Active Andre Barreto MD Active SYMBICORT 160-4.5 MCG/ACT AERO 2 puff BID BUDESONIDE- FORMOTEROL FUMARATE 38521657679 Active Cayla VERA Active FLUOXETINE HCL 40 MG ORAL CAPS 1 po qd FLUOXETINE HCL 54754284545 Active Andre Barreto MD Active BENICAR HCT 40-25 MG TABS Take one by mouth daily OLMESARTAN MEDOXOMIL-HCTZ 12318841530 No Longer Active Andre Barreto MD Active LOSARTAN POTASSIUM-HCTZ 100-25 MG TABS 1 po qd LOSARTAN POTASSIUM-HCTZ 37762363016 Active Andre Barreto MD Active BETAMETHASONE DIPROPIONATE 0.05 % OINT Apply to affected areas BID for up to 2 weeks BETAMETHASONE DIPROPIONATE 22220971530 No Longer Active Andre Barreto MD Active ZOFRAN 4 MG TABS 1 po q6hr PRN Nausea ONDANSETRON HCL 28617918836 No Longer Active Andre Barreto MD Active CIPRO 500 MG TAB 1 tablet by mouth twice daily CIPROFLOXACIN HCL 74643766790 No Longer Active Andre Barreto MD Active SYMBICORT 160-4.5 MCG/ACT AERO 2 puffs inhaled bid BUDESONIDE- FORMOTEROL FUMARATE 56463010902 No Longer Active Andre Barreto MD Active DICLOFENAC SODIUM 75 MG TBEC 1 tablet by mouth twice daily DICLOFENAC SODIUM 98535488560 No Longer Active Andre Barreto MD Active PROZAC 40 MG CAPS 1 cap by mouth at bedtime FLUOXETINE HCL 34409710990 No Longer Active Andre Barreto MD Active HYDROCODONE-ACETAMINOPHEN 5-325 MG TABS 1 po q 6hr PRN Pain HYDROCODONE-ACETAMINOPHEN 51131819569 No Longer Active Andre Barreto MD Active TRAMADOL HCL 50 MG TABS 2 po q 6 hrs prn TRAMADOL HCL 89740721564 Active Andre Barreto MD Active HYDROCODONE-ACETAMINOPHEN 5-325 MG TABS 1 po q 6hr PRN Pain HYDROCODONE-ACETAMINOPHEN 5-325 MG TABS 622591 HYDROCODONE-ACETAMINOPHEN Inactive PROZAC 40 MG CAPS 1 cap by mouth at bedtime PROZAC 40 MG CAPS 009357 FLUOXETINE HCL Inactive DICLOFENAC SODIUM 75 MG TBEC 1 tablet by mouth twice daily DICLOFENAC SODIUM 75 MG TBEC 381428 DICLOFENAC SODIUM Inactive SYMBICORT 160-4.5 MCG/ACT AERO 2 puffs inhaled bid SYMBICORT 160-4.5 MCG/ACT AERO BUDESONIDE-FORMOTEROL FUMARATE Inactive ZOFRAN 4 MG TABS 1 po q6hr PRN Nausea ZOFRAN 4 MG TABS 499174 ONDANSETRON HCL Inactive BETAMETHASONE DIPROPIONATE 0.05 % OINT Apply to affected areas BID for up to 2 weeks BETAMETHASONE DIPROPIONATE 0.05 % OINT 789295 BETAMETHASONE DIPROPIONATE Inactive BENICAR HCT 40-25 MG TABS Take one by mouth daily BENICAR HCT 40-25 MG TABS 211020 OLMESARTAN MEDOXOMIL-HCTZ Inactive ATORVASTATIN CALCIUM 80 MG TABS 1 po qHS ATORVASTATIN CALCIUM 80 MG TABS 074762 ATORVASTATIN CALCIUM Inactive CIPRO 500 MG TAB 1 tablet by mouth twice daily CIPRO 500 MG TAB 842654 CIPROFLOXACIN HCL Inactive Advance Directives Directive Description [...] 6.2 % 4.3-6.0 cholesterol, serum 229 mg/dL 009-923 4324/07/24 triglyceride, serum, fasting 106 mg/dL 30-200 HDL cholesterol, serum 60 mg/dL 32-60 LDL cholesterol, serum 148 mg/dL 0-130 sodium, serum 139 mmol/L 762-269 9512/07/24 carbon dioxide, venous blood 34.8 mmol/L 21.0-32.0 [...] 0.00-1.00 Encounters Code Encounter Date Provider Facility CPT-24846 Level 4 Est. Patient 10:26:48 SILK FINISHER Andre Barreto MD [facility] CPT-32381 Level 4 Est. Patient 09:45:06 CDT Andre Barreto MD [facility] CPT-44429 Level 4 Est. Patient 11:53:39 SILK FINISHER Andre Barreto MD [facility] CPT-05051 Level 4 Est. Patient 14:21:31 CDT Andre Barreto MD [facility] CPT-43198 Level 4 Est. Patient 15:24:17 CDT Andre Barreto MD [facility] CPT-75024 Level 3 Est. Patient 10:36:40 CDT Andre Barreto MD [facility] CPT-83398 Level 4 Est. Patient 11:27:43 CDT Andre Barreto MD [facility] CPT-31208 Level 3 Est. Patient 10:57:31 SILK FINISHER Andre Barreto MD [facility] CPT-71528 Level 3 Est. Patient 13:53:13 SILK FINISHER Andre Barreto MD [facility] CPT-52862 Level 3 Est. Patient 09:16:12 CDT Andre Barreto MD [facility] CPT-88440 Level 3 Est. Patient 14:50:35 CDT Andre Barreto MD [facility] Procedures Code Procedure Name Date Entry Date Standard Description CPT-G0009 Administration of Pneumococcal Vaccine 10:12:50 CDT CPT-71672 Pneumovax 23 Injection Injectable 25 MCG/0.5ML 10:12:50 CDT CPT-G0439 Subsequent Annual Wellness Exam 09:49:25 CDT CPT-33358 First Vx - Ix admin for Medicare patients 17:55:11 [facility] CPT-58269 Fluzone High-Dose Intramuscular Suspension 17:55:11 [facility] CPT-05393 Venipuncture Draw Fee 14:11:36 CDT CPT-90149 Lipid - LAB USE ONLY 14:11:36 CDT CPT-10744 CMP - LAB USE ONLY 14:11:36 CDT CPT-G0438 Initial Annual Wellness Exam 13:29:06 CDT CPT-G0009 Administration of Pneumococcal Vaccine 13:26:57 CDT CPT-21064 Prevnar 13 Intramuscular Suspension 13:26:56 CDT 08/19 CPT-02481 Bone Density - XRAY USE ONLY 09:30:16 CDT CPT-Cryo Cryotherapy 08:59:26 SILK FINISHER CPT-Cryo Cryotherapy 08:46:02 CDT CPT-35534 Chest 2V Frontal and Lat 14:02:13 SILK FINISHER
--- OUTSIDE RECORDS SUMMARY | 2018-03-16 19:25 | XMS REPORT | Clinical Summary ---
Author Author Admin, EDUARDO Organization [facility] Address Unknown Phone Unavailable Allergies, Adverse Reactions, [...] Coronary atherosclerosis of unspecified type of vessel, [place] or graft Obstructive sleep apnea 327.23 Active [...] airway pressure rx V46.2 Active [employer] [place] [employer] Other dependence on machines, supplemental oxygen Osteopenia [...] Generic Name NDC Status Provider Patient Instruction ATORVASTATIN CALCIUM 80 MG TABS 1 po qHS ATORVASTATIN CALCIUM 93606098425 No Longer Active Andre Barreto MD Active AMBIEN 5 MG TABS 1 po qHS PRN Insomnia ZOLPIDEM TARTRATE 90284276345 Active Andre Barreto MD Active DETROL 2 MG ORAL TABS 1 po qd TOLTERODINE TARTRATE 92335577707 Active Andre Barreto MD Active NITROGLYCERIN 0.4 MG SL SUBL 1 SL q5min PRN Chest pain up to 3 doses NITROGLYCERIN 13936152155 Active Andre Barreto MD Active TOPROL XL 50 MG ORAL [id number] 1 po qd METOPROLOL SUCCINATE 95952799026 Active Andre Barreto MD Active PLAVIX 75 MG TABS 1 po qd CLOPIDOGREL BISULFATE 90629908777 Active Andre Barreto MD Active LASIX 20 MG TAB 1 po qd PRN Edema FUROSEMIDE 38134556322 Active Andre Barreto MD Active SYMBICORT 160-4.5 MCG/ACT AERO 2 puff BID BUDESONIDE- FORMOTEROL FUMARATE 11672823633 Active Cayla VERA Active PROAIR HFA 108 (90 BASE) MCG/ACT AERS 2 puffs four times a day as needed 2015 ALBUTEROL SULFATE 99229261053 Active Ander Barreto MD Active FLUOXETINE HCL 40 MG ORAL CAPS 1 po qd FLUOXETINE HCL 19977821426 Active Andre Barreto MD Active BENICAR HCT 40-25 MG TABS Take one by mouth daily OLMESARTAN MEDOXOMIL-HCTZ 11868212737 No Longer Active Andre Barreto MD Active LOSARTAN POTASSIUM-HCTZ 100-25 MG TABS 1 po qd LOSARTAN POTASSIUM-HCTZ 24424847991 Active Andre Barreto MD Active BETAMETHASONE DIPROPIONATE 0.05 % OINT Apply to affected areas BID for up to 2 weeks BETAMETHASONE DIPROPIONATE 36738707189 No Longer Active Andre Barreto MD Active ZOFRAN 4 MG TABS 1 po q6hr PRN Nausea ONDANSETRON HCL 66604477215 No Longer Active Andre Barreto MD Active CIPRO 500 MG TAB 1 tablet by mouth twice daily CIPROFLOXACIN HCL 28753739877 No Longer Active Andre Barreto MD Active SYMBICORT 160-4.5 MCG/ACT AERO 2 puffs inhaled bid BUDESONIDE- FORMOTEROL FUMARATE 99927824245 No Longer Active Andre Barreto MD Active DICLOFENAC SODIUM 75 MG TBEC 1 tablet by mouth twice daily DICLOFENAC SODIUM 66024585435 No Longer Active Andre Barreto MD Active PROZAC 40 MG CAPS 1 cap by mouth at bedtime FLUOXETINE HCL 71075206195 No Longer Active Andre Barreto MD Active HYDROCODONE-ACETAMINOPHEN 5-325 MG TABS 1 po q 6hr PRN Pain HYDROCODONE-ACETAMINOPHEN 21999234328 No Longer Active Andre Barreto MD Active TRAMADOL HCL 50 MG TABS 2 po q 6 hrs prn TRAMADOL HCL 41274006069 Active Andre Barreto MD Active HYDROCODONE-ACETAMINOPHEN 5-325 MG TABS 1 po q 6hr PRN Pain HYDROCODONE-ACETAMINOPHEN 5-325 MG TABS 542037 HYDROCODONE-ACETAMINOPHEN Inactive PROZAC 40 MG CAPS 1 cap by mouth at bedtime PROZAC 40 MG CAPS 283060 FLUOXETINE HCL Inactive DICLOFENAC SODIUM 75 MG TBEC 1 tablet by mouth twice daily DICLOFENAC SODIUM 75 MG TBEC 845166 DICLOFENAC SODIUM Inactive SYMBICORT 160-4.5 MCG/ACT AERO 2 puffs inhaled bid SYMBICORT 160-4.5 MCG/ACT AERO BUDESONIDE-FORMOTEROL FUMARATE Inactive ZOFRAN 4 MG TABS 1 po q6hr PRN Nausea ZOFRAN 4 MG TABS 290316 ONDANSETRON HCL Inactive BETAMETHASONE DIPROPIONATE 0.05 % OINT Apply to affected areas BID for up to 2 weeks BETAMETHASONE DIPROPIONATE 0.05 % OINT 274971 BETAMETHASONE DIPROPIONATE Inactive BENICAR HCT 40-25 MG TABS Take one by mouth daily BENICAR HCT 40-25 MG TABS 033227 OLMESARTAN MEDOXOMIL-HCTZ Inactive ATORVASTATIN CALCIUM 80 MG TABS 1 po qHS ATORVASTATIN CALCIUM 80 MG TABS 241139 ATORVASTATIN CALCIUM Inactive CIPRO 500 MG TAB 1 tablet by mouth twice daily CIPRO 500 MG TAB 927356 CIPROFLOXACIN HCL Inactive Advance Directives Directive Description Start Date DISCUSSED WITH PATIENT -- NO DECISION MADE Vital Signs Date Name Value Unit Range Description blood pressure, diastolic 85 mm[Hg] BP pat [...] temperature weight E&M 290.4 [lb_av] Weight Measured blood pressure, diastolic 85 mm[Hg] BP pat blood pressure, systolic 166 mm[Hg] BP sys pulse rate E&M 85 /min Heart rate temperature E&M 99.4 [degF] Body temperature weight E&M 293 [lb_av] Weight Measured Diagnostic Results Date Name [...] 30 mg/L 0-19 Lab Report: Comp. Metabolic Panel, Lipid Panel - Chemistry sodium, serum 143 mmol/L 665-479 9543/09/27 carbon dioxide, venous blood 30.1 mmol/L 21.0-32.0 potassium, serum 3.9 mmol/L 3.5-5.2 chloride, serum 107 mmol/L 98-107 blood glucose 114 mg/dL 65-110 urea nitrogen, blood 14 mg/dL 7-18 creatinine, serum 0.79 mg/dL 0.55-1.30 alanine aminotransferase (SGPT), serum 44 U/L 12-78 aspartate aminotransferase (SGOT), serum 25 U/L 15-37 calcium, serum 8.5 mg/dL 8.5-10.1 bilirubin, serum, total 0.30 mg/dL 0.00-1.00 cholesterol, serum 152 mg/dL 700-354 3525/09/27 triglyceride, serum, fasting 85 mg/dL 30-200 HDL cholesterol, serum 59 mg/dL 32-96 LDL cholesterol, serum 76 mg/dL 0-130 Lab Report: HGBA1C, Lipid Panel, Comp. Metabolic Panel - Chemistry hemoglobin A1C, blood, as % of total hemoglobin 6.2 % 4.3-6.0 cholesterol, serum 229 mg/dL 632-995 0412/07/24 triglyceride, serum, fasting 106 mg/dL 30-200 HDL cholesterol, serum 60 mg/dL 32-60 LDL cholesterol, serum 148 mg/dL 0-130 sodium, serum 139 mmol/L 476-929 2448/07/24 carbon dioxide, venous blood 34.8 mmol/L 21.0-32.0 [...] 0.00-1.00 Encounters Code Encounter Date Provider Facility CPT-40644 Level 4 Est. Patient 09:45:06 CDT Andre Barreto MD [facility] CPT-03132 Level 4 Est. Patient 11:53:39 BELLHOP Andre Barreto MD [facility] CPT-87773 Level 4 Est. Patient 14:21:31 CDT Andre Barreto MD [facility] CPT-72264 Level 4 Est. Patient 15:24:17 CDT Andre Barreto MD [facility] CPT-10195 Level 3 Est. Patient 10:36:40 CDT Andre Barreto MD [facility] CPT-75974 Level 4 Est. Patient 11:27:43 CDT Andre Barreto MD [facility] CPT-38320 Level 3 Est. Patient 10:57:31 BE[facility]OP Andre Barreto MD [facility] CPT-33880 Level 3 Est. Patient 13:53:13 BELL[employer]OP Andre Barreto MD [facility] CPT-66263 Level 3 Est. Patient 09:16:12 CDT Andre Barreto MD [facility] CPT-63330 Level 3 Est. Patient 14:50:35 CDT Andre Barreto MD [facility] Procedures Code Procedure Name Date Entry Date Standard Description CPT-G0009 Administration of Pneumococcal Vaccine 10:12:50 CDT CPT-54612 Pneumovax 23 Injection Injectable 25 MCG/0.5ML 10:12:50 CDT CPT-G0439 MC Subsequent Annual Wellness Exam 09:49:25 CDT CPT-21025 First Vx - Ix admin for Medicare patients 17:55:11 [facility] CPT-52327 Fluzone High-Dose Intramuscular Suspension 17:55:11 [facility] CPT-64796 Venipuncture Draw Fee 14:11:36 CDT CPT-45960 Lipid - LAB USE ONLY 14:11:36 CDT CPT-88855 CMP - LAB USE ONLY 14:11:36 CDT CPT-G0438 Initial Annual Wellness Exam 13:29:06 CDT CPT-G0009 Administration of Pneumococcal Vaccine 13:26:57 CDT CPT-31959 Prevnar 13 Intramuscular Suspension 13:26:56 CDT 08/19 CPT-42872 Bone Density - XRAY USE ONLY 09:30:16 CDT CPT-Cryo Cryotherapy 08:59:26 BELL[facility]OP CPT-Cryo Cryotherapy 08:46:02 CDT CPT-52984 Chest 2V Frontal and Lat 14:02:13 [facility]
--- OUTSIDE RECORDS SUMMARY | 2018-03-16 19:26 | XMS REPORT | Clinical Summary ---
Author Author Admin, QIE Organization [facility] Address Unknown Phone Unavailable Allergies, Adverse Reactions, [...] Coronary atherosclerosis of unspecified type of vessel, [place] or graft OBSTRUCTIVE SLEEP APNEA 327.23 Active [...] for up to 2 weeks BETAMETHASONE DIPROPIONATE 43442378203 Active Andre Barreto MD Active LIPITOR 40 MG TAB Take 1 tab by mouth daily ATORVASTATIN CALCIUM 68609792370 Active Andre Barreto MD Active ZOFRAN 4 MG TABS 1 po q6hr PRN Nausea ONDANSETRON HCL 78783326598 No Longer Active Andre Barreto MD Active CIPRO 500 MG TAB 1 tablet by mouth twice daily CIPROFLOXACIN HCL 37387227723 No Longer Active Andre Barreto MD Active SYMBICORT 160-4.5 MCG/ACT AERO 2 puffs inhaled bid BUDESONIDE- FORMOTEROL FUMARATE 14888063081 No Longer Active Andre Barreto MD Active LASIX 20 MG TAB 1 tablet by mouth daily PRN FUROSEMIDE 77548852807 Active Andre Barreto MD Active TOPROL XL 25 MG [id number] Take one by mouth daily METOPROLOL SUCCINATE 89832696744 Active Andre Barreto MD Active PLAVIX 75 MG TABS 1 tablet by mouth daily CLOPIDOGREL BISULFATE 61929098348 Active Andre Barreto MD Active NITROSTAT 0.4 MG SL TAB disolve 1 under tongue repeat if needed NITROGLYCERIN 61595590658 Active Andre Barreto MD Active DICLOFENAC SODIUM 75 MG TBEC 1 tablet by mouth twice daily DICLOFENAC SODIUM 47422545129 No Longer Active Andre Barreto MD Active FLUOXETINE HCL 20 MG CAPS TAKE 3 CAPSULES BY MOUTH ONCE DAILY. FLUOXETINE HCL 28147340124 Active Andre Barreto MD Active PROZAC 40 MG CAPS 1 cap by mouth at bedtime FLUOXETINE HCL 94237732334 No Longer Active Andre Barreto MD Active HYDROCODONE-ACETAMINOPHEN 5-325 MG TABS 1 po q 6hr PRN Pain HYDROCODONE-ACETAMINOPHEN 38478235143 No Longer Active Andre Barreto MD Active TRAMADOL HCL 50 MG TABS 2 po q 6 hrs prn TRAMADOL HCL 82668870631 Active Andre Barreto MD Active AMBIEN 5 MG TABS 1 po a hs prn ZOLPIDEM TARTRATE 61664021828 Active Andre Barreto MD Active BENICAR HCT 40-25 MG TABS Take one by mouth daily OLMESARTAN MEDOXOMIL- HCTZ 96210639866 Active Andre Barreto MD Active HYDROCODONE-ACETAMINOPHEN 5-325 MG TABS 1 po q 6hr PRN Pain HYDROCODONE-ACETAMINOPHEN 5-325 MG TABS 135199 HYDROCODONE-ACETAMINOPHEN Inactive PROZAC 40 MG CAPS 1 cap by mouth at bedtime PROZAC 40 MG CAPS 647285 FLUOXETINE HCL Inactive DICLOFENAC SODIUM 75 MG TBEC 1 tablet by mouth twice daily DICLOFENAC SODIUM 75 MG TBEC 197504 DICLOFENAC SODIUM Inactive SYMBICORT 160-4.5 MCG/ACT AERO 2 puffs inhaled bid SYMBICORT 160-4.5 MCG/ACT AERO BUDESONIDE-FORMOTEROL FUMARATE Inactive ZOFRAN 4 MG TABS 1 po q6hr PRN Nausea ZOFRAN 4 MG TABS 962661 ONDANSETRON HCL Inactive CIPRO 500 MG TAB 1 tablet by mouth twice daily CIPRO 500 MG TAB 521138 CIPROFLOXACIN HCL Inactive Vital Signs Date Name Value Unit Range Description blood pressure, diastolic - 8462-4 79 mm[Hg] BP pat blood pressure, systolic - 8480-6 123 mm[Hg] BP sys pulse rate E&M - 8867-4 72 /min Heart rate temperature E&M 98.6 [degF] Body temperature weight E&M - 3141-9 259 [lb_av] Weight Measured blood pressure, diastolic - 8462-4 77 mm[Hg] [...] Panel, Lipid Panel, CBC W/DIFF - Chemistry urea nitrogen, blood 17 mg/dL 7-18 creatinine, serum 1.20 mg/dL 0.60-1.30 alanine aminotransferase (SGPT), serum 40 U/L 12-78 aspartate aminotransferase (SGOT), serum 25 U/L 15-37 calcium, serum 9.2 mg/dL 8.5-10.1 bilirubin, serum, total 0.50 mg/dL 0.00-1.00 cholesterol, serum 174 mg/dL 330-483 2404/12/19 triglyceride, serum, fasting 129 mg/dL 30-200 HDL cholesterol, serum 55 mg/dL 32-96 LDL cholesterol, serum 93 mg/dL 0-130 carbon dioxide, venous blood 29.9 mmol/L 21.0-32.0 chloride, serum 104 mmol/L 98-107 potassium, serum 4.3 mmol/L 3.5-5.2 sodium, serum 145 mmol/L 870-000 3243/12/19 blood glucose 121 mg/dL 65-110 Lab Report: Comp. Metabolic Panel, Lipid Panel, [...] % of total hemoglobin 6.0 % 4.3-6.0 hemoglobin A1C, blood, as % of total hemoglobin 5.9 % 4.3-6.0 Encounters Code Encounter Date Provider Facility CPT-25382 Level 3 Est. Patient 10:36:40 CDT Andre Barreto MD [facility] CPT-32040 Level 4 Est. Patient 11:27:43 CDT Andre Barreto MD [facility] CPT-04090 Level 3 Est. Patient 10:57:31 LOCK TECHNICIAN Andre Barreto MD [facility] CPT-60715 Level 3 Est. Patient 13:53:13 LOCK TECHNICIAN Andre Barreto MD [facility] CPT-32382 Level 3 Est. Patient 09:16:12 CDT Andre Barreto MD [facility] CPT-20480 Level 3 Est. Patient 14:50:35 CDT Andre Barreto MD [facility] Procedures Code Procedure Name Date Entry Date Standard Description CPT-Cryo Cryotherapy 08:59:26 LOCK TECHNICIAN CPT-Cryo Cryotherapy 08:46:02 CDT CPT-39534 Chest 2V Frontal and Lat 14:02:13 LOCK TECHNICIAN
--- OUTSIDE RECORDS SUMMARY | 2018-03-16 19:26 | XMS REPORT | Clinical Summary ---
Author Author Admin, EDUARDO Organization [employer] Address Unknown Phone Unavailable Allergies, Adverse Reactions, [...] Coronary atherosclerosis of unspecified type of vessel, [place] or graft Obstructive sleep apnea 327.23 Active [...] skin Elevated blood sugar 790.29 Inactive Marcelle VERA Other abnormal glucose Glucose intolerance 271.3 Active [...] airway pressure rx V46.2 Active Pushpa Hernandez APRN Other dependence on machines, supplemental oxygen Osteopenia 733.90 Active Pushpa Hernandez APRN Disorder of bone and cartilage, unspecified Obstructive sleep apnea 327.23 Active Andre Barreto MD Obstructive sleep apnea (adult) (pediatric) Acute exacerbation of chronic bronchitis 491.22 Inactive Solitario Howe MD Obstructive chronic bronchitis with acute bronchitis Sinusitis 473.9 Active David King APRN Unspecified sinusitis (chronic) DYSPNEA ICD-786.09 Inactive Andre Barreto MD 2012 [...] Generic Name NDC Status Provider Patient Instruction GUAIFENESIN DM 400-20 MG ORAL TABLET 1 pill by mouth twice daily, if needed for cough DEXTROMETHORPHAN-GUAIFENESIN 19385026243 Active David King APRN Active CEFDINIR 300 MG ORAL CAPSULE by mouth twice a day CEFDINIR 36713246124 Active David King DRESS CUTTER 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 BENZONATATE 200 MG ORAL CAPSULE 1 three times a day as needed for cough 03/27 BENZONATATE 80072688644 No Longer Active Luna Prabhakar Active ZITHROMAX Z-NEVAEH 250 MG ORAL TABLET 2 today and then 1 daily for 4 days 03/27 AZITHROMYCIN 25260473050 No Longer Active Luna Prabhakar Active PREDNISONE 20 MG ORAL TABLET 2 daily for 3 days then 1 daily for 3 days 03/27 PREDNISONE 81835714111 No Longer Active Luna Prabhakar Active ATORVASTATIN CALCIUM 40 MG ORAL TABLET 1 po qHS ATORVASTATIN CALCIUM 98985496231 Active Marcelle Key Isabella Active CLOPIDOGREL BISULFATE 75 MG ORAL TABLET 1 po qd CLOPIDOGREL BISULFATE 20199130401 Active Andre Barreto MD Active FUROSEMIDE 20 MG ORAL TABLET 1 po qd PRN Edema FUROSEMIDE 77481456723 Active Andre Barreto MD Active PROAIR HFA 108 (90 Base) MCG/ACT INHALATION AEROSOL SOLUTION 2 puffs q4hr PRN Shortness of air/Wheezing ALBUTEROL SULFATE 42640256887 Active Andre Barreto MD Active ATORVASTATIN CALCIUM 80 MG ORAL TABLET 1 po qHS ATORVASTATIN CALCIUM 13158585749 No Longer Active Andre Barreto MD Active AMBIEN 5 MG ORAL TABLET 1 po qHS PRN Insomnia ZOLPIDEM TARTRATE 81232329462 Active Andre Barreto MD Active DETROL 2 MG ORAL TABLET 1 po qd TOLTERODINE TARTRATE 79194594196 Active Andre Barreto MD Active NITROGLYCERIN 0.4 MG SUBLINGUAL TABLET SUBLINGUAL 1 SL q5min PRN Chest pain up to 3 doses NITROGLYCERIN 21838260359 Active Andre Barreto MD Active TOPROL XL 50 MG ORAL TABLET EXTENDED RELEASE 24 HOUR 1 po qd METOPROLOL SUCCINATE 64760960058 Active Andre Barreto MD Active SYMBICORT 160-4.5 MCG/ACT INHALATION AEROSOL 2 puff BID BUDESONIDE-FORMOTEROL FUMARATE 67236918703 Active Cayla VERA Active FLUOXETINE HCL 40 MG ORAL CAPSULE 1 po qd FLUOXETINE HCL 52267188407 Active Andre Barreto MD Active BENICAR HCT 40-25 MG ORAL TABLET Take one by mouth daily OLMESARTAN MEDOXOMIL-HCTZ 99377961814 No Longer Active Andre Barreto MD Active [place]ARTAN POTASSIUM-HCTZ 100-25 MG ORAL TABLET 1 po qd LOSARTAN POTASSIUM-HCTZ 08877607205 Active Andre Barreto MD Active BETAMETHASONE DIPROPIONATE 0.05 % EXTERNAL OINTMENT Apply to affected areas BID for up to 2 weeks BETAMETHASONE DIPROPIONATE 67273734757 No Longer Active Andre Barreto MD Active ZOFRAN 4 MG ORAL TABLET 1 po q6hr PRN Nausea ONDANSETRON HCL 60848277516 No Longer Active Andre Barreto MD Active CIPRO 500 MG ORAL TABLET 1 tablet by mouth twice daily CIPROFLOXACIN HCL 46722379137 No Longer Active Andre Barreto MD Active SYMBICORT 160-4.5 MCG/ACT INHALATION AEROSOL 2 puffs inhaled bid BUDESONIDE-FORMOTEROL FUMARATE 62653339354 No Longer Active Andre Barreto MD Active DICLOFENAC SODIUM 75 MG ORAL TABLET DELAYED RELEASE 1 tablet by mouth twice daily DICLOFENAC SODIUM 32899349520 No Longer Active Andre Barreto MD Active PROZAC 40 MG ORAL CAPSULE 1 cap by mouth at bedtime FLUOXETINE HCL 57671712635 No Longer Active Andre Barreto MD Active HYDROCODONE-ACETAMINOPHEN 5-325 MG ORAL TABLET 1 po q 6hr PRN Pain HYDROCODONE-ACETAMINOPHEN 88026675143 No Longer Active Andre Barreto MD Active TRAMADOL HCL 50 MG ORAL TABLET 2 po q 6 hrs prn TRAMADOL HCL 78137844613 Active Andre Barreto MD Active HYDROCODONE-ACETAMINOPHEN 5-325 MG ORAL TABLET 1 po q 6hr PRN Pain HYDROCODONE-ACETAMINOPHEN 5-325 MG ORAL TABLET 261649 HYDROCODONE- ACETAMINOPHEN Inactive PROZAC 40 MG ORAL CAPSULE 1 cap by mouth at bedtime PROZAC 40 MG ORAL CAPSULE 168208 FLUOXETINE HCL Inactive DICLOFENAC SODIUM 75 MG ORAL TABLET DELAYED RELEASE 1 tablet by mouth twice daily DICLOFENAC SODIUM 75 MG ORAL TABLET DELAYED RELEASE 535472 DICLOFENAC SODIUM Inactive SYMBICORT 160-4.5 MCG/ACT INHALATION AEROSOL 2 puffs inhaled bid SYMBICORT 160-4.5 MCG/ACT INHALATION AEROSOL BUDESONIDE-FORMOTEROL FUMARATE Inactive ZOFRAN 4 MG ORAL TABLET 1 po q6hr PRN Nausea ZOFRAN 4 MG ORAL TABLET 713551 ONDANSETRON HCL Inactive BETAMETHASONE DIPROPIONATE 0.05 % EXTERNAL OINTMENT Apply to affected areas BID for up to 2 weeks BETAMETHASONE DIPROPIONATE 0.05 % EXTERNAL OINTMENT 593333 BETAMETHASONE DIPROPIONATE Inactive BENICAR HCT 40-25 MG ORAL TABLET Take one by mouth daily BENICAR HCT 40-25 MG ORAL TABLET 093219 OLMESARTAN MEDOXOMIL-HCTZ Inactive ATORVASTATIN CALCIUM 80 MG ORAL TABLET 1 po qHS ATORVASTATIN CALCIUM 80 MG ORAL TABLET 585452 ATORVASTATIN CALCIUM Inactive PREDNISONE 20 MG ORAL TABLET 2 daily for 3 days then 1 daily for 3 days 03/27 PREDNISONE 20 MG ORAL TABLET 407447 PREDNISONE Inactive ZITHROMAX Z-NEVAEH 250 MG ORAL TABLET 2 today and then 1 daily for 4 days 03/27 ZITHROMAX Z-NEVAEH 250 MG ORAL TABLET 485762 AZITHROMYCIN Inactive BENZONATATE 200 MG ORAL CAPSULE 1 three times a day as needed for cough 03/27 BENZONATATE 200 MG ORAL CAPSULE 200675 BENZONATATE Inactive CIPRO 500 MG ORAL TABLET 1 tablet by mouth twice daily CIPRO 500 MG ORAL TABLET 003682 CIPROFLOXACIN HCL Inactive Advance Directives Directive Description [...] % 11.6-14.8 platelet count 263 10^3/MM^3 10*3/mm3 375-566 0149/07/24 mean corpuscular volume, RBC 92 fL 80-97 [...] 6.2 % 4.3-6.0 cholesterol, serum 229 mg/dL 833-377 7177/07/24 triglyceride, serum, fasting 106 mg/dL 30-200 HDL cholesterol, serum 60 mg/dL 32-60 LDL cholesterol, serum 148 mg/dL 0-130 sodium, serum 139 mmol/L 869-899 6263/07/24 carbon dioxide, venous blood 34.8 mmol/L 21.0-32.0 [...] Panel - Chemistry cholesterol, serum 275 mg/dL 023-278 8376/11/07 triglyceride, serum, fasting 166 mg/dL 30-200 HDL cholesterol, serum 62 mg/dL 32-60 LDL cholesterol, serum 180 mg/dL 0-130 sodium, serum 141 mmol/L 980-195 1192/11/07 carbon dioxide, venous blood 26.3 mmol/L 21.0-32.0 potassium, serum 4.0 mmol/L 3.5-5.2 chloride, serum 102 mmol/L 98-107 blood glucose 111 mg/dL 65-110 urea nitrogen, blood 24 mg/dL 7-18 creatinine, serum 1.15 mg/dL 0.60-1.30 alanine aminotransferase (SGPT), serum 52 U/L - aspartate aminotransferase (SGOT), serum 28 U/L 15-37 calcium, serum 9.2 mg/dL 8.5-10.1 bilirubin, serum, total 0.50 mg/dL 0.00-1.00 Lab Report: MICROALB/CREAT W/RATIO - Chemistry albumin/creatinine ratio, urine <30 mg/g Normal mg/g mg/g{creat} 0-29 Lab Report: MICROALB/CREAT W/RATIO - Lab microalbumin, urine 10 mg/L 0-19 Encounters Code Encounter Date Provider Facility CPT-67416 Level 3 Est. Patient 09:24:01 [employer] David King APRN [facility] CPT-93020 Level 3 Est. Patient 13:01:07 [employer] Solitario Howe MD [facility] CPT-24592 Level 4 Est. Patient 10:26:48 [employer] Andre Barreto MD [facility] CPT-38312 Level 4 Est. Patient 09:45:06 CDT Andre Barreto MD [facility] CPT-43937 Level 4 Est. Patient 11:53:39 [employer] Andre Barreto MD [facility] CPT-79491 Level 4 Est. Patient 14:21:31 CDT Andre Barreto MD [facility] CPT-83061 Level 4 Est. Patient 15:24:17 CDT Andre Barreto MD [facility] CPT-49399 Level 3 Est. Patient 10:36:40 CDT Andre Barreto MD [facility] CPT-00904 Level 4 Est. Patient 11:27:43 CDT Andre Barreto MD [facility] CPT-93949 Level 3 Est. Patient 10:57:31 [employer] Andre Barreto MD [facility] CPT-63400 Level 3 Est. Patient 13:53:13 [employer] Andre Barreto MD [facility] CPT-59037 Level 3 Est. Patient 09:16:12 CDT Andre Barreto MD [facility] CPT-45514 Level 3 Est. Patient 14:50:35 CDT Andre Barreto MD [facility] Procedures Code Procedure Name Date Entry Date Standard Description CPT-25629 First Vx - Ix admin for Medicare patients 13:56:44 [employer] CPT-10087 Zostavax Subcutaneous Solution Reconstituted 93984 UNT/0.65ML 12/22 13:56:44 [employer] CPT-G0009 Administration of Pneumococcal Vaccine 10:12:50 CDT CPT-16567 Pneumovax 23 Injection Injectable 25 MCG/0.5ML 10:12:50 CDT CPT-G0439 Subsequent Annual Wellness Exam 09:49:25 CDT CPT-19322 First Vx - Ix admin for Medicare patients 17:55:11 [employer] CPT-65407 Fluzone High-Dose Intramuscular Suspension 17:55:11 [employer] CPT-67683 Venipuncture Draw Fee 14:11:36 CDT CPT-31321 Lipid - LAB USE ONLY 14:11:36 CDT CPT-94317 CMP - LAB USE ONLY 14:11:36 CDT CPT-G0438 Initial Annual Wellness Exam 13:29:06 CDT CPT-G0009 Administration of Pneumococcal Vaccine 13:26:57 CDT CPT-06449 Prevnar 13 Intramuscular Suspension 13:26:56 CDT 08/19 CPT-70869 Bone Density - XRAY USE ONLY 09:30:16 CDT CPT-Cryo Cryotherapy 08:59:26 [employer] CPT-Cryo Cryotherapy 08:46:02 CDT CPT-75221 Chest 2V Frontal and Lat 14:02:13 [employer]
--- OUTSIDE RECORDS SUMMARY | 2018-03-16 19:27 | XMS REPORT | Clinical Summary ---
Author Author Admin, EDUARDO Organization [employer] Address Unknown Phone Unavailable Allergies, Adverse Reactions, [...] dyspnea and respiratory abnormality FATIGUE 780.79 Resolved nAdre Barreto MD Other malaise and fatigue DYSPNEA 786.05 Resolved Andre Barreto MD Shortness of breath Coronary artery disease 414.00 Active Andre Barreto MD Coronary atherosclerosis of unspecified type of vessel, [place] or graft Obstructive sleep apnea 327.23 Active [...] Patient Instruction TOPROL XL 50 MG ORAL [id number] 1 po qd METOPROLOL SUCCINATE 72496676269 Active Andre Barreto MD Active PLAVIX 75 MG TABS 1 po qd CLOPIDOGREL BISULFATE 51392813781 Active Andre Barreto MD Active LASIX 20 MG TAB 1 po qd PRN Edema FUROSEMIDE 06890114812 Active Andre Barreto MD Active ATORVASTATIN CALCIUM 80 MG TABS 1 po qHS ATORVASTATIN CALCIUM 36544416298 Active Andre Barreto MD Active SYMBICORT 160-4.5 MCG/ACT AERO 2 puff BID BUDESONIDE- FORMOTEROL FUMARATE 41931062512 Active Andre Barreto MD Active PROAIR HFA 108 (90 BASE) MCG/ACT AERS 2 puffs four times a day as needed 2015 ALBUTEROL SULFATE 33943764550 Active Andre Barreto MD Active FLUOXETINE HCL 40 MG ORAL CAPS 1 po qd FLUOXETINE HCL 11989218782 Active Andre Barreto MD Active DETROL 2 MG ORAL TABS one tab daily TOLTERODINE TARTRATE 42156153414 Active Andre Barreto MD Active BENICAR HCT 40-25 MG TABS Take one by mouth daily OLMESARTAN MEDOXOMIL-HCTZ 06257975443 No Longer Active Andre Barreto MD Active LOSARTAN POTASSIUM-HCTZ 100-25 MG TABS 1 po qd LOSARTAN POTASSIUM-HCTZ 45237728650 Active Andre Barreto MD Active BETAMETHASONE DIPROPIONATE 0.05 % OINT Apply to affected areas BID for up to 2 weeks BETAMETHASONE DIPROPIONATE 23212192651 No Longer Active Andre Barreto MD Active ZOFRAN 4 MG TABS 1 po q6hr PRN Nausea ONDANSETRON HCL 28531757764 No Longer Active Andre Barreto MD Active CIPRO 500 MG TAB 1 tablet by mouth twice daily CIPROFLOXACIN HCL 03096389136 No Longer Active Andre Barreto MD Active SYMBICORT 160-4.5 MCG/ACT AERO 2 puffs inhaled bid BUDESONIDE- FORMOTEROL FUMARATE 93981565804 No Longer Active Andre Barreto MD Active NITROSTAT 0.4 MG SL TAB disolve 1 under tongue repeat if needed NITROGLYCERIN 57888037269 Active Andre Barreto MD Active DICLOFENAC SODIUM 75 MG TBEC 1 tablet by mouth twice daily DICLOFENAC SODIUM 39576506727 No Longer Active Andre Barreto MD Active PROZAC 40 MG CAPS 1 cap by mouth at bedtime FLUOXETINE HCL 68852843778 No Longer Active Andre Barreto MD Active HYDROCODONE-ACETAMINOPHEN 5-325 MG TABS 1 po q 6hr PRN Pain HYDROCODONE-ACETAMINOPHEN 27901727081 No Longer Active Andre Barreto MD Active TRAMADOL HCL 50 MG TABS 2 po q 6 hrs prn TRAMADOL HCL 06061375500 Active Andre Barreto MD Active AMBIEN 5 MG TABS 1 po a hs prn ZOLPIDEM TARTRATE 19708879651 Active Andre Barreto MD Active HYDROCODONE-ACETAMINOPHEN 5-325 MG TABS 1 po q 6hr PRN Pain HYDROCODONE-ACETAMINOPHEN 5-325 MG TABS 152064 HYDROCODONE-ACETAMINOPHEN Inactive PROZAC 40 MG CAPS 1 cap by mouth at bedtime PROZAC 40 MG CAPS 732147 FLUOXETINE HCL Inactive DICLOFENAC SODIUM 75 MG TBEC 1 tablet by mouth twice daily DICLOFENAC SODIUM 75 MG TBEC 333117 DICLOFENAC SODIUM Inactive SYMBICORT 160-4.5 MCG/ACT AERO 2 puffs inhaled bid SYMBICORT 160-4.5 MCG/ACT AERO BUDESONIDE-FORMOTEROL FUMARATE Inactive ZOFRAN 4 MG TABS 1 po q6hr PRN Nausea ZOFRAN 4 MG TABS 126676 ONDANSETRON HCL Inactive BETAMETHASONE DIPROPIONATE 0.05 % OINT Apply to affected areas BID for up to 2 weeks BETAMETHASONE DIPROPIONATE 0.05 % OINT 801943 BETAMETHASONE DIPROPIONATE Inactive BENICAR HCT 40-25 MG TABS Take one by mouth daily BENICAR HCT 40-25 MG TABS OLMESARTAN MEDOXOMIL-HCTZ Inactive CIPRO 500 MG TAB 1 tablet by mouth twice daily CIPRO 500 MG TAB 114936 CIPROFLOXACIN HCL Inactive Advance Directives Directive Description [...] ... - Chemistry sodium, serum 140 mmol/L 366-828 4894/06/28 carbon dioxide, venous blood 32.4 mmol/L 21.0-32.0 potassium, serum 4.0 mmol/L 3.5-5.2 chloride, serum 101 mmol/L 98-107 blood glucose 108 mg/dL 65-110 urea nitrogen, blood 20 mg/dL 7-18 creatinine, serum 0.98 mg/dL 0.55-1.30 alanine aminotransferase (SGPT), serum 44 U/L 12-78 aspartate aminotransferase (SGOT), serum 27 U/L 15-37 calcium, serum 9.4 mg/dL 8.5-10.1 bilirubin, serum, total 0.30 mg/dL 0.00-1.00 cholesterol, serum 264 mg/dL 447-316 9479/06/28 triglyceride, serum, fasting 146 mg/dL 30-200 HDL [...] Panel - Chemistry sodium, serum 143 mmol/L 441-912 6578/09/27 carbon dioxide, venous blood 30.1 mmol/L 21.0-32.0 potassium, serum 3.9 mmol/L 3.5-5.2 chloride, serum 107 mmol/L 98-107 blood glucose 114 mg/dL 65-110 urea nitrogen, blood 14 mg/dL 7-18 creatinine, serum 0.79 mg/dL 0.55-1.30 alanine aminotransferase (SGPT), serum 44 U/L 12-78 aspartate aminotransferase (SGOT), serum 25 U/L 15-37 calcium, serum 8.5 mg/dL 8.5-10.1 bilirubin, serum, total 0.30 mg/dL 0.00-1.00 cholesterol, serum 152 mg/dL 844-458 2200/09/27 triglyceride, serum, fasting 85 mg/dL 30-200 HDL cholesterol, serum 59 mg/dL 32-96 LDL cholesterol, serum 76 mg/dL 0-130 Encounters Code Encounter Date Provider Facility CPT-40991 Level 4 Est. Patient 14:21:31 CDT Andre Barreto MD [facility] CPT-86678 Level 4 Est. Patient 15:24:17 CDT Andre Barreto MD [facility] CPT-41602 Level 3 Est. Patient 10:36:40 CDT Andre Barreto MD [facility] CPT-16482 Level 4 Est. Patient 11:27:43 CDT Andre Barreto MD [facility] CPT-07774 Level 3 Est. Patient 10:57:31 [employer] Andre Barreto MD [facility] CPT-68476 Level 3 Est. Patient 13:53:13 [employer] Andre Barreto MD [facility] CPT-88312 Level 3 Est. Patient 09:16:12 CDT Andre Barreto MD [facility] CPT-92315 Level 3 Est. Patient 14:50:35 CDT Andre Barreto MD [facility] Procedures Code Procedure Name Date Entry Date Standard Description CPT-38493 Venipuncture Draw Fee 14:11:36 CDT CPT-13229 Lipid - LAB USE ONLY 14:11:36 CDT CPT-63794 CMP - LAB USE ONLY 14:11:36 CDT CPT-G0438 Initial Annual Wellness Exam 13:29:06 CDT CPT-G0009 Administration of Pneumococcal Vaccine 13:26:57 CDT CPT-28708 Prevnar 13 Intramuscular Suspension 13:26:56 CDT 08/19 CPT-55530 Bone Density - XRAY USE ONLY 09:30:16 CDT CPT-Cryo Cryotherapy 08:59:26 [employer] CPT-Cryo Cryotherapy 08:46:02 CDT CPT-65584 Chest 2V Frontal and Lat 14:02:13 [employer]
--- OUTSIDE RECORDS SUMMARY | 2018-03-16 19:27 | XMS REPORT | Clinical Summary ---
Author Author Admin, [employer] Organization [employer] Address Unknown Phone Unavailable Allergies, Adverse Reactions, Alerts Allergy Name Reaction Description Start Date Severity Status Provider SULFA Mild No Longer Active Jillina Frazell CLIENT RELATIONS ASSOCIATE PENICILLIN Mild No Longer Active Jillina Frazell CLIENT RELATIONS ASSOCIATE ZINC Mild No Longer Active Jillina Frazell CLIENT RELATIONS ASSOCIATE SULFA Critical No Longer Active Marcelle Yesi RMA PENICILLIN Critical No Longer Active Marcelle Yesi RMA ZINC Critical No Longer Active Marcelle Ysei RMA PENICILLIN UNK Inactive [place] [...] Coronary atherosclerosis of unspecified type of vessel, [place] or graft Obstructive sleep apnea 327.23 Active [...] on machines, supplemental oxygen Osteopenia 733.90 Active uPshpa Hernandez APRN Disorder of bone and cartilage, unspecified Obstructive sleep apnea 327.23 Active Andre Barreto MD Obstructive sleep apnea (adult) (pediatric) Acute exacerbation of chronic bronchitis 491.22 Inactive Solitario Howe MD Obstructive chronic bronchitis with acute bronchitis Sinusitis 473.9 Active David King APRN Unspecified sinusitis (chronic) Abscess, skin 682.9 Active [...] Generic Name NDC Status Provider Patient Instruction CLINDAMYCIN HCL 300 MG ORAL CAPSULE 1 po QID x 7 days CLINDAMYCIN HCL 17854947360 Active Jillina Frazell CLIENT RELATIONS ASSOCIATE Active BACTRIM DS 800-160 MG ORAL TABLET 1 tab by mouth twice daily 2017 TRIMETHOPRIM-SULFAMETHOXAZOLE 96812391474 No Longer Active Jillina Frazell CLIENT RELATIONS ASSOCIATE Active BACTROBAN 2 % EXTERNAL OINTMENT Apply to affected area BID MUPIROCIN 91283967004 Active Jillina Frazell CLIENT RELATIONS ASSOCIATE Active GUAIFENESIN DM 400-20 MG ORAL TABLET 1 pill by mouth twice daily, if needed for cough DEXTROMETHORPHAN-GUAIFENESIN 96218438013 Active Jillina Frazell CLIENT RELATIONS ASSOCIATE Active CEFDINIR 300 MG ORAL CAPSULE by mouth twice a day CEFDINIR 25358484454 No Longer Active Jillina Frazell CLIENT RELATIONS ASSOCIATE Active BENZONATATE 200 MG ORAL CAPSULE 1 three times a day as needed for cough 03/27 BENZONATATE 14745649352 No Longer Active Luna Prabhakar Active ZITHROMAX Z-NEVAEH 250 MG ORAL TABLET 2 today and then 1 daily for 4 days 03/27 AZITHROMYCIN 04548804854 No Longer Active Luna Prabhakar Active PREDNISONE 20 MG ORAL TABLET 2 daily for 3 days then 1 daily for 3 days 03/27 PREDNISONE 36647622750 No Longer Active Luna Prabhakar Active ATORVASTATIN CALCIUM 40 MG ORAL TABLET 1 po qHS ATORVASTATIN CALCIUM 05585779745 Active Marcelle Key Isabella Active CLOPIDOGREL BISULFATE 75 MG ORAL TABLET 1 po qd CLOPIDOGREL BISULFATE 83545107650 Active Andre Barreto MD Active FUROSEMIDE 20 MG ORAL TABLET 1 po qd PRN Edema FUROSEMIDE 54636701744 Active Andre Barreto MD Active PROAIR HFA 108 (90 Base) MCG/ACT INHALATION AEROSOL SOLUTION 2 puffs q4hr PRN Shortness of air/Wheezing ALBUTEROL SULFATE 91684587684 Active Andre Barreto MD Active ATORVASTATIN CALCIUM 80 MG ORAL TABLET 1 po qHS ATORVASTATIN CALCIUM 24554576316 No Longer Active Andre Barreto MD Active AMBIEN 5 MG ORAL TABLET 1 po qHS PRN Insomnia ZOLPIDEM TARTRATE 41802638611 Active Andre Barreto MD Active DETROL 2 MG ORAL TABLET 1 po qd TOLTERODINE TARTRATE 40792854784 Active Andre Barreto MD Active NITROGLYCERIN 0.4 MG SUBLINGUAL TABLET SUBLINGUAL 1 SL q5min PRN Chest pain up to 3 doses NITROGLYCERIN 72022563498 Active Andre Barreto MD Active TOPROL XL 50 MG ORAL TABLET EXTENDED RELEASE 24 HOUR 1 po qd METOPROLOL SUCCINATE 85973030815 Active Andre Barreto MD Active SYMBICORT 160-4.5 MCG/ACT INHALATION AEROSOL 2 puff BID BUDESONIDE-FORMOTEROL FUMARATE 40923930656 Active Cayla VERA Active FLUOXETINE HCL 40 MG ORAL CAPSULE 1 po qd FLUOXETINE HCL 58484210450 Active Andre Barreto MD Active BENICAR HCT 40-25 MG ORAL TABLET Take one by mouth daily OLMESARTAN MEDOXOMIL-HCTZ 01843799103 No Longer Active Andre Barreto MD Active LOSARTAN POTASSIUM-HCTZ 100-25 MG ORAL TABLET 1 po qd LOSARTAN POTASSIUM-HCTZ 65802984649 Active Andre Barreto MD Active BETAMETHASONE DIPROPIONATE 0.05 % EXTERNAL OINTMENT Apply to affected areas BID for up to 2 weeks BETAMETHASONE DIPROPIONATE 06349602436 No Longer Active Andre Barreto MD Active ZOFRAN 4 MG ORAL TABLET 1 po q6hr PRN Nausea ONDANSETRON HCL 10581008533 No Longer Active Andre Barreto MD Active CIPRO 500 MG ORAL TABLET 1 tablet by mouth twice daily CIPROFLOXACIN HCL 87198531644 No Longer Active Andre Barreto MD Active SYMBICORT 160-4.5 MCG/ACT INHALATION AEROSOL 2 puffs inhaled bid BUDESONIDE-FORMOTEROL FUMARATE 04179367159 No Longer Active Andre Barreto MD Active DICLOFENAC SODIUM 75 MG ORAL TABLET DELAYED RELEASE 1 tablet by mouth twice daily DICLOFENAC SODIUM 37553294336 No Longer Active Andre Barreto MD Active PROZAC 40 MG ORAL CAPSULE 1 cap by mouth at bedtime FLUOXETINE HCL 25363062215 No Longer Active Andre Barreto MD Active HYDROCODONE-ACETAMINOPHEN 5-325 MG ORAL TABLET 1 po q 6hr PRN Pain HYDROCODONE-ACETAMINOPHEN 84295153469 No Longer Active Andre Barreto MD Active TRAMADOL HCL 50 MG ORAL TABLET 2 po q 6 hrs prn TRAMADOL HCL 16622634105 Active Andre Barreto MD Active HYDROCODONE-ACETAMINOPHEN 5-325 MG ORAL TABLET 1 po q 6hr PRN Pain HYDROCODONE-ACETAMINOPHEN 5-325 MG ORAL TABLET 180070 HYDROCODONE- ACETAMINOPHEN Inactive PROZAC 40 MG ORAL CAPSULE 1 cap by mouth at bedtime PROZAC 40 MG ORAL CAPSULE 905672 FLUOXETINE HCL Inactive DICLOFENAC SODIUM 75 MG ORAL TABLET DELAYED RELEASE 1 tablet by mouth twice daily DICLOFENAC SODIUM 75 MG ORAL TABLET DELAYED RELEASE 435489 DICLOFENAC SODIUM Inactive SYMBICORT 160-4.5 MCG/ACT INHALATION AEROSOL 2 puffs inhaled bid SYMBICORT 160-4.5 MCG/ACT INHALATION AEROSOL BUDESONIDE-FORMOTEROL FUMARATE Inactive ZOFRAN 4 MG ORAL TABLET 1 po q6hr PRN Nausea ZOFRAN 4 MG ORAL TABLET 962994 ONDANSETRON HCL Inactive BETAMETHASONE DIPROPIONATE 0.05 % EXTERNAL OINTMENT Apply to affected areas BID for up to 2 weeks BETAMETHASONE DIPROPIONATE 0.05 % EXTERNAL OINTMENT 210949 BETAMETHASONE DIPROPIONATE Inactive BENICAR HCT 40-25 MG ORAL TABLET Take one by mouth daily BENICAR HCT 40-25 MG ORAL TABLET 778555 OLMESARTAN MEDOXOMIL-HCTZ Inactive ATORVASTATIN CALCIUM 80 MG ORAL TABLET 1 po qHS ATORVASTATIN CALCIUM 80 MG ORAL TABLET 596729 ATORVASTATIN CALCIUM Inactive PREDNISONE 20 MG ORAL TABLET 2 daily for 3 days then 1 daily for 3 days 03/27 PREDNISONE 20 MG ORAL TABLET 115774 PREDNISONE Inactive ZITHROMAX Z-NEVAEH 250 MG ORAL TABLET 2 today and then 1 daily for 4 days 03/27 ZITHROMAX Z-NEVAEH 250 MG ORAL TABLET 369801 AZITHROMYCIN Inactive BENZONATATE 200 MG ORAL CAPSULE 1 three times a day as needed for cough 03/27 BENZONATATE 200 MG ORAL CAPSULE 412190 BENZONATATE Inactive BACTRIM DS 800-160 MG ORAL TABLET 1 tab by mouth twice daily 2017 BACTRIM DS 800-160 MG ORAL TABLET 439466 TRIMETHOPRIM- SULFAMETHOXAZOLE Inactive CIPRO 500 MG ORAL TABLET 1 tablet by mouth twice daily CIPRO 500 MG ORAL TABLET 218777 CIPROFLOXACIN HCL Inactive CEFDINIR 300 MG ORAL CAPSULE by mouth twice a day CEFDINIR 300 MG ORAL CAPSULE 147447 CEFDINIR Inactive Advance Directives Directive Description Start [...] 6.2 % 4.3-6.0 cholesterol, serum 229 mg/dL 593-206 7076/07/24 triglyceride, serum, fasting 106 mg/dL 30-200 HDL cholesterol, serum 60 mg/dL 32-60 LDL cholesterol, serum 148 mg/dL 0-130 sodium, serum 139 mmol/L 927-686 7915/07/24 carbon dioxide, venous blood 34.8 mmol/L 21.0-32.0 [...] Panel - Chemistry cholesterol, serum 275 mg/dL 813-174 3656/11/07 triglyceride, serum, fasting 166 mg/dL 30-200 HDL cholesterol, serum 62 mg/dL 32-60 LDL cholesterol, serum 180 mg/dL 0-130 sodium, serum 141 mmol/L 768-606 1922/11/07 carbon dioxide, venous blood 26.3 mmol/L 21.0-32.0 [...] 0-19 Encounters Code Encounter Date Provider Facility CPT-00012 Level 3 Est. Patient 09:16:36 CDT David King [facility] CPT-77568 Level 3 Est. Patient 09:24:01 SPOILAGE WORKER David King [facility] CPT-01706 Level 3 Est. Patient 13:01:07 SPOILAGE WORKER Solitario Howe MD [facility] CPT-98192 Level 4 Est. Patient 10:26:48 SPOILAGE WORKER Andre Barreto MD [facility] CPT-23347 Level 4 Est. Patient 09:45:06 CDT Andre Barreto MD [facility] CPT-95856 Level 4 Est. Patient 11:53:39 SPOILAGE WORKER Andre Barreto MD [facility] CPT-63933 Level 4 Est. Patient 14:21:31 CDT Andre Barreto MD [facility] CPT-34937 Level 4 Est. Patient 15:24:17 CDT Andre Barreto MD [facility] CPT-09302 Level 3 Est. Patient 10:36:40 CDT Andre Barreto MD [facility] CPT-68638 Level 4 Est. Patient 11:27:43 CDT Andre Barreto MD [facility] CPT-65339 Level 3 Est. Patient 10:57:31 SPOILAGE WORKER Andre Barreto MD [facility] CPT-41893 Level 3 Est. Patient 13:53:13 SPOILAGE WORKER Andre Barreto MD [facility] CPT-64637 Level 3 Est. Patient 09:16:12 CDT Andre Barreto MD [facility] CPT-74379 Level 3 Est. Patient 14:50:35 CDT Andre Barreto MD [facility] Procedures Code Procedure Name Date Entry Date Standard Description CPT-33475 First Vx - Ix admin for Medicare patients 13:56:44 SPOILAGE WORKER CPT-94846 Zostavax Subcutaneous Solution Reconstituted 16564 UNT/0.65ML 12/22 13:56:44 SPOILAGE WORKER CPT-G0009 Administration of Pneumococcal Vaccine 10:12:50 CDT CPT-04996 Pneumovax 23 Injection Injectable 25 MCG/0.5ML 10:12:50 CDT CPT-G0439 Subsequent Annual Wellness Exam 09:49:25 CDT CPT-33982 First Vx - Ix admin for Medicare patients 17:55:11 SPOILAGE WORKER CPT-17322 Fluzone High-Dose Intramuscular Suspension 17:55:11 SPOILAGE WORKER CPT-66142 Venipuncture Draw Fee 14:11:36 CDT CPT-25786 Lipid - LAB USE ONLY 14:11:36 CDT CPT-98509 CMP - LAB USE ONLY 14:11:36 CDT CPT-G0438 Initial Annual Wellness Exam 13:29:06 CDT CPT-G0009 Administration of Pneumococcal Vaccine 13:26:57 CDT CPT-76915 Prevnar 13 Intramuscular Suspension 13:26:56 CDT 08/19 CPT-61186 Bone Density - XRAY USE ONLY 09:30:16 CDT CPT-Cryo Cryotherapy 08:59:26 SPOILAGE WORKER CPT-Cryo Cryotherapy 08:46:02 CDT CPT-84878 Chest 2V Frontal and Lat 14:02:13 SPOILAGE WORKER
--- OUTSIDE RECORDS SUMMARY | 2018-03-16 19:28 | XMS REPORT | Clinical Summary ---
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 dependence on machines, supplemental oxygen Osteopenia [...] ORAL TABS 1 po qd TOLTERODINE TARTRATE 41250860830 Active Andre Barreto MD Active NITROGLYCERIN 0.4 MG SL SUBL 1 SL q5min PRN Chest pain up to 3 doses NITROGLYCERIN 58679475453 Active Andre Barreto MD Active TOPROL XL 50 MG ORAL [id number] 1 po qd METOPROLOL SUCCINATE 04800046034 Active Andre Barreto MD Active PLAVIX 75 MG TABS 1 po qd CLOPIDOGREL BISULFATE 39893255131 Active Andre Barreto MD Active LASIX 20 MG TAB 1 po qd PRN Edema FUROSEMIDE 83079748882 Bar Barreto MD Active ATORVASTATIN CALCIUM 80 MG TABS 1 po qHS ATORVASTATIN CALCIUM 94496345638 Active Andre Barreto MD Active SYMBICORT 160-4.5 MCG/ACT AERO 2 puff BID BUDESONIDE- FORMOTEROL FUMARATE 05852609984 Active Andre Barreto MD Active PROAIR HFA 108 (90 BASE) MCG/ACT AERS 2 puffs four times a day as needed 2015 ALBUTEROL SULFATE 28955500721 Active Andre Barreto MD Active FLUOXETINE HCL 40 MG ORAL CAPS 1 po qd FLUOXETINE HCL 18032950987 Active Andre Barreto MD Active BENICAR HCT 40-25 MG TABS Take one by mouth daily OLMESARTAN MEDOXOMIL-HCTZ 01918895309 No Longer Active Andre Barreto MD Active LOSARTAN POTASSIUM-HCTZ 100-25 MG TABS 1 po qd LOSARTAN POTASSIUM-HCTZ 12027646027 Active Andre Barreto MD Active BETAMETHASONE DIPROPIONATE 0.05 % OINT Apply to affected areas BID for up to 2 weeks BETAMETHASONE DIPROPIONATE 30129160438 No Longer Active Andre Barreto MD Active ZOFRAN 4 MG TABS 1 po q6hr PRN Nausea ONDANSETRON HCL 27906360891 No Longer Active Andre Barreto MD Active CIPRO 500 MG TAB 1 tablet by mouth twice daily CIPROFLOXACIN HCL 74980714792 No Longer Active Andre aBrreto MD Active SYMBICORT 160-4.5 MCG/ACT AERO 2 puffs inhaled bid BUDESONIDE- FORMOTEROL FUMARATE 76879410180 No Longer Active Andre Barreto MD Active DICLOFENAC SODIUM 75 MG TBEC 1 tablet by mouth twice daily DICLOFENAC SODIUM 25727040912 No Longer Active Andre Barreto MD Active PROZAC 40 MG CAPS 1 cap by mouth at bedtime FLUOXETINE HCL 04183477862 No Longer Active Andre Barreto MD Active HYDROCODONE-ACETAMINOPHEN 5-325 MG TABS 1 po q 6hr PRN Pain HYDROCODONE-ACETAMINOPHEN 59606354244 No Longer Active Andre Barreto MD Active TRAMADOL HCL 50 MG TABS 2 po q 6 hrs prn TRAMADOL HCL 13021775518 Active Andre Barreto MD Active AMBIEN 5 MG TABS 1 po a hs prn ZOLPIDEM TARTRATE 32801463179 Active Andre Barreto MD Active HYDROCODONE-ACETAMINOPHEN 5-325 MG TABS 1 po q 6hr PRN Pain HYDROCODONE-ACETAMINOPHEN 5-325 MG TABS 761578 HYDROCODONE-ACETAMINOPHEN Inactive PROZAC 40 MG CAPS 1 cap by mouth at bedtime PROZAC 40 MG CAPS 626021 FLUOXETINE HCL Inactive DICLOFENAC SODIUM 75 MG TBEC 1 tablet by mouth twice daily DICLOFENAC SODIUM 75 MG TBEC 361547 DICLOFENAC SODIUM Inactive SYMBICORT 160-4.5 MCG/ACT AERO 2 puffs inhaled bid SYMBICORT 160-4.5 MCG/ACT AERO BUDESONIDE-FORMOTEROL FUMARATE Inactive ZOFRAN 4 MG TABS 1 po q6hr PRN Nausea ZOFRAN 4 MG TABS 392976 ONDANSETRON HCL Inactive BETAMETHASONE DIPROPIONATE 0.05 % OINT Apply to affected areas BID for up to 2 weeks BETAMETHASONE DIPROPIONATE 0.05 % OINT 564932 BETAMETHASONE DIPROPIONATE Inactive BENICAR HCT 40-25 MG TABS Take one by mouth daily BENICAR HCT 40-25 MG TABS 854778 OLMESARTAN MEDOXOMIL-HCTZ Inactive CIPRO 500 MG TAB 1 tablet by mouth twice daily CIPRO 500 MG TAB 280982 CIPROFLOXACIN HCL Inactive Advance Directives Directive Description [...] ... - Chemistry sodium, serum 140 mmol/L 966-473 3370/06/28 carbon dioxide, venous blood 32.4 mmol/L 21.0-32.0 potassium, serum 4.0 mmol/L 3.5-5.2 chloride, serum 101 mmol/L 98-107 blood glucose 108 mg/dL 65-110 urea nitrogen, blood 20 mg/dL 7-18 creatinine, serum 0.98 mg/dL 0.55-1.30 alanine aminotransferase (SGPT), serum 44 U/L 12-78 aspartate aminotransferase (SGOT), serum 27 U/L 15-37 calcium, serum 9.4 mg/dL 8.5-10.1 bilirubin, serum, total 0.30 mg/dL 0.00-1.00 cholesterol, serum 264 mg/dL 255-481 1574/06/28 triglyceride, serum, fasting 146 mg/dL 30-200 HDL [...] Panel - Chemistry sodium, serum 143 mmol/L 093-308 3362/09/27 carbon dioxide, venous blood 30.1 mmol/L 21.0-32.0 potassium, serum 3.9 mmol/L 3.5-5.2 chloride, serum 107 mmol/L 98-107 blood glucose 114 mg/dL 65-110 urea nitrogen, blood 14 mg/dL 7-18 creatinine, serum 0.79 mg/dL 0.55-1.30 alanine aminotransferase (SGPT), serum 44 U/L 12-78 aspartate aminotransferase (SGOT), serum 25 U/L 15-37 calcium, serum 8.5 mg/dL 8.5-10.1 bilirubin, serum, total 0.30 mg/dL 0.00-1.00 cholesterol, serum 152 mg/dL 965-343 9226/09/27 triglyceride, serum, fasting 85 mg/dL 30-200 HDL cholesterol, serum 59 mg/dL 32-96 LDL cholesterol, serum 76 mg/dL 0-130 Encounters Code Encounter Date Provider Facility CPT-32098 Level 4 Est. Patient 11:53:39 REPRODUCTIVE ENDOCRINOLOGIST Andre Barreto MD [facility] CPT-94728 Level 4 Est. Patient 14:21:31 CDT Andre Barreto MD [facility] CPT-26847 Level 4 Est. Patient 15:24:17 CDT Andre Barreto MD [facility] CPT-40630 Level 3 Est. Patient 10:36:40 CDT Andre Barreto MD [facility] CPT-73247 Level 4 Est. Patient 11:27:43 CDT Andre Barreto MD [facility] CPT-06349 Level 3 Est. Patient 10:57:31 REPRODUCTIVE ENDOCRINOLOGIST Andre Barreto MD [facility] CPT-79100 Level 3 Est. Patient 13:53:13 REPRODUCTIVE ENDOCRINOLOGIST Andre Barreto MD [facility] CPT-83151 Level 3 Est. Patient 09:16:12 CDT Andre Barreto MD [facility] CPT-33112 Level 3 Est. Patient 14:50:35 CDT Andre Barreto MD [facility] Procedures Code Procedure Name Date Entry Date Standard Description CPT-62768 Venipuncture Draw Fee 14:11:36 CDT CPT-32982 Lipid - LAB USE ONLY 14:11:36 CDT CPT-59702 CMP - LAB USE ONLY 14:11:36 CDT CPT-G0438 Initial Annual Wellness Exam 13:29:06 CDT CPT-G0009 Administration of Pneumococcal Vaccine 13:26:57 CDT CPT-18670 Prevnar 13 Intramuscular Suspension 13:26:56 CDT 08/19 CPT-22266 Bone Density - XRAY USE ONLY 09:30:16 CDT CPT-Cryo Cryotherapy 08:59:26 REPRODUCTIVE ENDOCRINOLOGIST CPT-Cryo Cryotherapy 08:46:02 CDT CPT-16759 Chest 2V Frontal and Lat 14:02:13 REPRODUCTIVE ENDOCRINOLOGIST
--- OUTSIDE RECORDS SUMMARY | 2018-03-16 19:28 | XMS REPORT | Clinical Summary ---
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 Other dependence on machines, supplemental oxygen Osteopenia [...] MG TABS 1 po qHS ATORVASTATIN CALCIUM 87485876527 No Longer Active Andre Barreto MD Active AMBIEN 5 MG TABS 1 po qHS PRN Insomnia ZOLPIDEM TARTRATE 72870698424 Active Andre Barreto MD Active DETROL 2 MG ORAL TABS 1 po qd TOLTERODINE TARTRATE 98418630619 Active Andre Barreto MD Active NITROGLYCERIN 0.4 MG SL SUBL 1 SL q5min PRN Chest pain up to 3 doses NITROGLYCERIN 00136911687 Active Andre Barreto MD Active TOPROL XL 50 MG ORAL [id number] 1 po qd METOPROLOL SUCCINATE 38856585612 Active Andre Barreto MD Active PLAVIX 75 MG TABS 1 po qd CLOPIDOGREL BISULFATE 78776676401 Active Andre Barreto MD Active LASIX 20 MG TAB 1 po qd PRN Edema FUROSEMIDE 58251095739 Active Andre Barreto MD Active SYMBICORT 160-4.5 MCG/ACT AERO 2 puff BID BUDESONIDE- FORMOTEROL FUMARATE 68203925407 Active Cayla VERA Active PROAIR HFA 108 (90 BASE) MCG/ACT AERS 2 puffs four times a day as needed 2015 ALBUTEROL SULFATE 87171657250 Active Andre Barreto MD Active FLUOXETINE HCL 40 MG ORAL CAPS 1 po qd FLUOXETINE HCL 01766829074 Active Andre Barreto MD Active BENICAR HCT 40-25 MG TABS Take one by mouth daily OLMESARTAN MEDOXOMIL-HCTZ 55632307283 No Longer Active Andre Barreto MD Active LOSARTAN POTASSIUM-HCTZ 100-25 MG TABS 1 po qd LOSARTAN POTASSIUM-HCTZ 50422723578 Active Andre Barreto MD Active BETAMETHASONE DIPROPIONATE 0.05 % OINT Apply to affected areas BID for up to 2 weeks BETAMETHASONE DIPROPIONATE 87691733861 No Longer Active Andre Barreto MD Active ZOFRAN 4 MG TABS 1 po q6hr PRN Nausea ONDANSETRON HCL 79281918179 No Longer Active Andre Barreto MD Active CIPRO 500 MG TAB 1 tablet by mouth twice daily CIPROFLOXACIN HCL 92945585543 No Longer Active Andre Barreto MD Active SYMBICORT 160-4.5 MCG/ACT AERO 2 puffs inhaled bid BUDESONIDE- FORMOTEROL FUMARATE 23923631581 No Longer Active Andre Barreto MD Active DICLOFENAC SODIUM 75 MG TBEC 1 tablet by mouth twice daily DICLOFENAC SODIUM 89161979479 No Longer Active Andre Barreto MD Active PROZAC 40 MG CAPS 1 cap by mouth at bedtime FLUOXETINE HCL 06457090452 No Longer Active Andre Barreto MD Active HYDROCODONE-ACETAMINOPHEN 5-325 MG TABS 1 po q 6hr PRN Pain HYDROCODONE-ACETAMINOPHEN 51839429580 No Longer Active Andre Barreto MD Active TRAMADOL HCL 50 MG TABS 2 po q 6 hrs prn TRAMADOL HCL 16509627524 Active Andre Barreto MD Active HYDROCODONE-ACETAMINOPHEN 5-325 MG TABS 1 po q 6hr PRN Pain HYDROCODONE-ACETAMINOPHEN 5-325 MG TABS 159308 HYDROCODONE-ACETAMINOPHEN Inactive PROZAC 40 MG CAPS 1 cap by mouth at bedtime PROZAC 40 MG CAPS 932068 FLUOXETINE HCL Inactive DICLOFENAC SODIUM 75 MG TBEC 1 tablet by mouth twice daily DICLOFENAC SODIUM 75 MG TBEC 660652 DICLOFENAC SODIUM Inactive SYMBICORT 160-4.5 MCG/ACT AERO 2 puffs inhaled bid SYMBICORT 160-4.5 MCG/ACT AERO BUDESONIDE-FORMOTEROL FUMARATE Inactive ZOFRAN 4 MG TABS 1 po q6hr PRN Nausea ZOFRAN 4 MG TABS 449792 ONDANSETRON HCL Inactive BETAMETHASONE DIPROPIONATE 0.05 % OINT Apply to affected areas BID for up to 2 weeks BETAMETHASONE DIPROPIONATE 0.05 % OINT 493795 BETAMETHASONE DIPROPIONATE Inactive BENICAR HCT 40-25 MG TABS Take one by mouth daily BENICAR HCT 40-25 MG TABS 447411 OLMESARTAN MEDOXOMIL-HCTZ Inactive ATORVASTATIN CALCIUM 80 MG TABS 1 po qHS ATORVASTATIN CALCIUM 80 MG TABS 461263 ATORVASTATIN CALCIUM Inactive CIPRO 500 MG TAB 1 tablet by mouth twice daily CIPRO 500 MG TAB 247712 CIPROFLOXACIN HCL Inactive Advance Directives Directive Description [...] Panel - Chemistry sodium, serum 143 mmol/L 635-887 1519/09/27 carbon dioxide, venous blood 30.1 mmol/L 21.0-32.0 potassium, serum 3.9 mmol/L 3.5-5.2 chloride, serum 107 mmol/L 98-107 blood glucose 114 mg/dL 65-110 urea nitrogen, blood 14 mg/dL 7-18 creatinine, serum 0.79 mg/dL 0.55-1.30 alanine aminotransferase (SGPT), serum 44 U/L 12-78 aspartate aminotransferase (SGOT), serum 25 U/L 15-37 calcium, serum 8.5 mg/dL 8.5-10.1 bilirubin, serum, total 0.30 mg/dL 0.00-1.00 cholesterol, serum 152 mg/dL 901-932 1379/09/27 triglyceride, serum, fasting 85 mg/dL 30-200 HDL cholesterol, serum 59 mg/dL 32-96 LDL cholesterol, serum 76 mg/dL 0-130 Lab Report: HGBA1C, Lipid Panel, Comp. Metabolic Panel - Chemistry hemoglobin A1C, blood, as % of total hemoglobin 6.2 % 4.3-6.0 cholesterol, serum 229 mg/dL 659-957 5398/07/24 triglyceride, serum, fasting 106 mg/dL 30-200 HDL cholesterol, serum 60 mg/dL 32-60 LDL cholesterol, serum 148 mg/dL 0-130 sodium, serum 139 mmol/L 930-187 9316/07/24 carbon dioxide, venous blood 34.8 mmol/L 21.0-32.0 [...] 0.00-1.00 Encounters Code Encounter Date Provider Facility CPT-92593 Level 4 Est. Patient 09:45:06 CDT Andre Barreto MD [facility] CPT-41921 Level 4 Est. Patient 11:53:39 ENERGY BROKER Andre Barreto MD [facility] CPT-74596 Level 4 Est. Patient 14:21:31 CDT Andre Barreto MD [facility] CPT-44453 Level 4 Est. Patient 15:24:17 CDT Andre Barreto MD [facility] CPT-52999 Level 3 Est. Patient 10:36:40 CDT Andre Barreto MD [facility] CPT-02058 Level 4 Est. Patient 11:27:43 CDT Andre Barreto MD [facility] CPT-49434 Level 3 Est. Patient 10:57:31 ENERGY BROKER Andre Barreto MD [facility] CPT-07315 Level 3 Est. Patient 13:53:13 ENERGY BROKER Andre Barreto MD [facility] CPT-12851 Level 3 Est. Patient 09:16:12 CDT Andre Barreto MD [facility] CPT-76387 Level 3 Est. Patient 14:50:35 CDT Andre Barreto MD [facility] Procedures Code Procedure Name Date Entry Date Standard Description CPT-G0009 Administration of Pneumococcal Vaccine 10:12:50 CDT CPT-95519 Pneumovax 23 Injection Injectable 25 MCG/0.5ML 10:12:50 CDT CPT-G0439 MC Subsequent Annual Wellness Exam 09:49:25 CDT CPT-56599 First Vx - Ix admin for Medicare patients 17:55:11 ENERGY BROKER CPT-56001 Fluzone High-Dose Intramuscular Suspension 17:55:11 ENERGY BROKER CPT-43569 Venipuncture Draw Fee 14:11:36 CDT CPT-43959 Lipid - LAB USE ONLY 14:11:36 CDT CPT-00397 CMP - LAB USE ONLY 14:11:36 CDT CPT-G0438 Initial Annual Wellness Exam 13:29:06 CDT CPT-G0009 Administration of Pneumococcal Vaccine 13:26:57 CDT CPT-88359 Prevnar 13 Intramuscular Suspension 13:26:56 CDT 08/19 CPT-11972 Bone Density - XRAY USE ONLY 09:30:16 CDT CPT-Cryo Cryotherapy 08:59:26 ENERGY BROKER CPT-Cryo Cryotherapy 08:46:02 CDT CPT-23613 Chest 2V Frontal and Lat 14:02:13 ENERGY BROKER
--- OUTSIDE RECORDS SUMMARY | 2018-03-16 19:29 | XMS REPORT | Clinical Summary ---
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 Other dependence on machines, supplemental oxygen [...] ORAL TABS 1 po qd TOLTERODINE TARTRATE 12562048284 Active Andre Barreto MD Active NITROGLYCERIN 0.4 MG SL SUBL 1 SL q5min PRN Chest pain up to 3 doses NITROGLYCERIN 77842313066 Active Andre Barreto MD Active TOPROL XL 50 MG ORAL [id number] 1 po qd METOPROLOL SUCCINATE 52335989104 Active Andre Barreto MD Active PLAVIX 75 MG TABS 1 po qd CLOPIDOGREL BISULFATE 35594944340 Active Andre Barreto MD Active LASIX 20 MG TAB 1 po qd PRN Edema FUROSEMIDE 74248373189 Bar Barreto MD Active ATORVASTATIN CALCIUM 80 MG TABS 1 po qHS ATORVASTATIN CALCIUM 35188315986 Active Andre Barreto MD Active SYMBICORT 160-4.5 MCG/ACT AERO 2 puff BID BUDESONIDE- FORMOTEROL FUMARATE 17448508841 Active Andre Barreto MD Active PROAIR HFA 108 (90 BASE) MCG/ACT AERS 2 puffs four times a day as needed 2015 ALBUTEROL SULFATE 05024888774 Active Andre Barreto MD Active FLUOXETINE HCL 40 MG ORAL CAPS 1 po qd FLUOXETINE HCL 73870346812 Active Andre Barreto MD Active BENICAR HCT 40-25 MG TABS Take one by mouth daily OLMESARTAN MEDOXOMIL-HCTZ 98937592630 No Longer Active Andre Barreto MD Active LOSARTAN POTASSIUM-HCTZ 100-25 MG TABS 1 po qd LOSARTAN POTASSIUM-HCTZ 78303297477 Active Andre Barreto MD Active BETAMETHASONE DIPROPIONATE 0.05 % OINT Apply to affected areas BID for up to 2 weeks BETAMETHASONE DIPROPIONATE 64144771485 No Longer Active Andre Barreto MD Active ZOFRAN 4 MG TABS 1 po q6hr PRN Nausea ONDANSETRON HCL 94280568833 No Longer Active Andre Barreto MD Active CIPRO 500 MG TAB 1 tablet by mouth twice daily CIPROFLOXACIN HCL 81590274418 No Longer Active Andre Barreto MD Active SYMBICORT 160-4.5 MCG/ACT AERO 2 puffs inhaled bid BUDESONIDE- FORMOTEROL FUMARATE 34038909723 No Longer Active Andre Barreto MD Active DICLOFENAC SODIUM 75 MG TBEC 1 tablet by mouth twice daily DICLOFENAC SODIUM 56363442529 No Longer Active Andre Barreto MD Active PROZAC 40 MG CAPS 1 cap by mouth at bedtime FLUOXETINE HCL 07831467542 No Longer Active Andre Barreto MD Active HYDROCODONE-ACETAMINOPHEN 5-325 MG TABS 1 po q 6hr PRN Pain HYDROCODONE-ACETAMINOPHEN 75221572703 No Longer Active Andre Barreto MD Active TRAMADOL HCL 50 MG TABS 2 po q 6 hrs prn TRAMADOL HCL 23753050396 Active Andre Barreto MD Active AMBIEN 5 MG TABS 1 po a hs prn ZOLPIDEM TARTRATE 61368896334 Active Andre Barreto MD Active HYDROCODONE-ACETAMINOPHEN 5-325 MG TABS 1 po q 6hr PRN Pain HYDROCODONE-ACETAMINOPHEN 5-325 MG TABS 780880 HYDROCODONE-ACETAMINOPHEN Inactive PROZAC 40 MG CAPS 1 cap by mouth at bedtime PROZAC 40 MG CAPS 837236 FLUOXETINE HCL Inactive DICLOFENAC SODIUM 75 MG TBEC 1 tablet by mouth twice daily DICLOFENAC SODIUM 75 MG TBEC 576686 DICLOFENAC SODIUM Inactive SYMBICORT 160-4.5 MCG/ACT AERO 2 puffs inhaled bid SYMBICORT 160-4.5 MCG/ACT AERO BUDESONIDE-FORMOTEROL FUMARATE Inactive ZOFRAN 4 MG TABS 1 po q6hr PRN Nausea ZOFRAN 4 MG TABS 712565 ONDANSETRON HCL Inactive BETAMETHASONE DIPROPIONATE 0.05 % OINT Apply to affected areas BID for up to 2 weeks BETAMETHASONE DIPROPIONATE 0.05 % OINT 519476 BETAMETHASONE DIPROPIONATE Inactive BENICAR HCT 40-25 MG TABS Take one by mouth daily BENICAR HCT 40-25 MG TABS 770521 OLMESARTAN MEDOXOMIL-HCTZ Inactive CIPRO 500 MG TAB 1 tablet by mouth twice daily CIPRO 500 MG TAB 006266 CIPROFLOXACIN HCL Inactive Advance Directives Directive Description [...] ... - Chemistry sodium, serum 140 mmol/L 035-944 7813/06/28 carbon dioxide, venous blood 32.4 mmol/L 21.0-32.0 potassium, serum 4.0 mmol/L 3.5-5.2 chloride, serum 101 mmol/L 98-107 blood glucose 108 mg/dL 65-110 urea nitrogen, blood 20 mg/dL 7-18 creatinine, serum 0.98 mg/dL 0.55-1.30 alanine aminotransferase (SGPT), serum 44 U/L 12-78 aspartate aminotransferase (SGOT), serum 27 U/L 15-37 calcium, serum 9.4 mg/dL 8.5-10.1 bilirubin, serum, total 0.30 mg/dL 0.00-1.00 cholesterol, serum 264 mg/dL 994-098 6452/06/28 triglyceride, serum, fasting 146 mg/dL 30-200 HDL [...] Panel - Chemistry sodium, serum 143 mmol/L 646-033 7552/09/27 carbon dioxide, venous blood 30.1 mmol/L 21.0-32.0 potassium, serum 3.9 mmol/L 3.5-5.2 chloride, serum 107 mmol/L 98-107 blood glucose 114 mg/dL 65-110 urea nitrogen, blood 14 mg/dL 7-18 creatinine, serum 0.79 mg/dL 0.55-1.30 alanine aminotransferase (SGPT), serum 44 U/L 12-78 aspartate aminotransferase (SGOT), serum 25 U/L 15-37 calcium, serum 8.5 mg/dL 8.5-10.1 bilirubin, serum, total 0.30 mg/dL 0.00-1.00 cholesterol, serum 152 mg/dL 421-918 5293/09/27 triglyceride, serum, fasting 85 mg/dL 30-200 HDL cholesterol, serum 59 mg/dL 32-96 LDL cholesterol, serum 76 mg/dL 0-130 Encounters Code Encounter Date Provider Facility CPT-82914 Level 4 Est. Patient 11:53:39 BALING MACHINE OPERATOR Andre Barreto MD [facility] CPT-00866 Level 4 Est. Patient 14:21:31 CDT Andre Barreto MD [facility] CPT-24701 Level 4 Est. Patient 15:24:17 CDT Andre Barreto MD [facility] CPT-86838 Level 3 Est. Patient 10:36:40 CDT Andre Barreto MD [facility] CPT-49136 Level 4 Est. Patient 11:27:43 CDT Andre Barreto MD [facility] CPT-27571 Level 3 Est. Patient 10:57:31 BALING MACHINE OPERATOR Andre Barreto MD [facility] CPT-44184 Level 3 Est. Patient 13:53:13 BALING MACHINE OPERATOR Andre Barreto MD [facility] CPT-91320 Level 3 Est. Patient 09:16:12 CDT Andre Barreto MD [facility] CPT-09826 Level 3 Est. Patient 14:50:35 CDT Andre Barreto MD [facility] Procedures Code Procedure Name Date Entry Date Standard Description CPT-67249 First Vx - Ix admin for Medicare patients 17:55:11 BALING MACHINE OPERATOR CPT-05929 Fluzone High-Dose Intramuscular Suspension 17:55:11 BALING MACHINE OPERATOR CPT-13989 Venipuncture Draw Fee 14:11:36 CDT CPT-90212 Lipid - LAB USE ONLY 14:11:36 CDT CPT-08929 CMP - LAB USE ONLY 14:11:36 CDT CPT-G0438 Initial Annual Wellness Exam 13:29:06 CDT CPT-G0009 Administration of Pneumococcal Vaccine 13:26:57 CDT CPT-29495 Prevnar 13 Intramuscular Suspension 13:26:56 CDT 08/19 CPT-00994 Bone Density - XRAY USE ONLY 09:30:16 CDT CPT-Cryo Cryotherapy 08:59:26 BALING MACHINE OPERATOR CPT-Cryo Cryotherapy 08:46:02 CDT CPT-87207 Chest 2V Frontal and Lat 14:02:13 BALING MACHINE OPERATOR
--- OUTSIDE RECORDS SUMMARY | 2018-03-16 19:29 | XMS REPORT | Clinical Summary ---
Author Author Admin, E Organization [employer] [facility] Address Unknown Phone Unavailable Allergies, Adverse Reactions, [...] Coronary atherosclerosis of unspecified type of vessel, [place] or graft Obstructive sleep apnea 327.23 Active [...] MG TABS 1 po qHS ATORVASTATIN CALCIUM 97187813590 No Longer Active Andre Barreto MD Active AMBIEN 5 MG TABS 1 po qHS PRN Insomnia ZOLPIDEM TARTRATE 63430924889 Active Andre Barreto MD Active DETROL 2 MG ORAL TABS 1 po qd TOLTERODINE TARTRATE 99256433185 Active Andre Barreto MD Active NITROGLYCERIN 0.4 MG SL SUBL 1 SL q5min PRN Chest pain up to 3 doses NITROGLYCERIN 79342148323 Active Andre Barreto MD Active TOPROL XL 50 MG ORAL [id number] 1 po qd METOPROLOL SUCCINATE 12850809211 Active Andre Barreto MD Active PLAVIX 75 MG TABS 1 po qd CLOPIDOGREL BISULFATE 09828028801 Active Andre Barreto MD Active LASIX 20 MG TAB 1 po qd PRN Edema FUROSEMIDE 89093832657 Active Andre Barreto MD Active SYMBICORT 160-4.5 MCG/ACT AERO 2 puff BID BUDESONIDE- FORMOTEROL FUMARATE 84904834114 Active Cayla VERA Active PROAIR HFA 108 (90 BASE) MCG/ACT AERS 2 puffs four times a day as needed 2015 ALBUTEROL SULFATE 63341970591 Active Andre Barreto MD Active FLUOXETINE HCL 40 MG ORAL CAPS 1 po qd FLUOXETINE HCL 60427301507 Active Andre Barreto MD Active BENICAR HCT 40-25 MG TABS Take one by mouth daily OLMESARTAN MEDOXOMIL-HCTZ 45577144954 No Longer Active Andre Barreto MD Active [place] POTASSIUM-HCTZ 100-25 MG TABS 1 po qd LOSARTAN POTASSIUM-HCTZ 65545808348 Active Andre Barreto MD Active BETAMETHASONE DIPROPIONATE 0.05 % OINT Apply to affected areas BID for up to 2 weeks BETAMETHASONE DIPROPIONATE 66118545261 No Longer Active Andre Barreto MD Active ZOFRAN 4 MG TABS 1 po q6hr PRN Nausea ONDANSETRON HCL 89080994576 No Longer Active Andre Barreto MD Active CIPRO 500 MG TAB 1 tablet by mouth twice daily CIPROFLOXACIN HCL 18807626324 No Longer Active Andre Barreto MD Active SYMBICORT 160-4.5 MCG/ACT AERO 2 puffs inhaled bid BUDESONIDE- FORMOTEROL FUMARATE 82123715919 No Longer Active Andre Barreto MD Active DICLOFENAC SODIUM 75 MG TBEC 1 tablet by mouth twice daily DICLOFENAC SODIUM 51321374240 No Longer Active Andre Barreto MD Active PROZAC 40 MG CAPS 1 cap by mouth at bedtime FLUOXETINE HCL 35818963996 No Longer Active Andre Barreto MD Active HYDROCODONE-ACETAMINOPHEN 5-325 MG TABS 1 po q 6hr PRN Pain HYDROCODONE-ACETAMINOPHEN 91369183286 No Longer Active Andre Barreto MD Active TRAMADOL HCL 50 MG TABS 2 po q 6 hrs prn TRAMADOL HCL 78262119657 Active Andre Barreto MD Active HYDROCODONE-ACETAMINOPHEN 5-325 MG TABS 1 po q 6hr PRN Pain HYDROCODONE-ACETAMINOPHEN 5-325 MG TABS 514867 HYDROCODONE-ACETAMINOPHEN Inactive PROZAC 40 MG CAPS 1 cap by mouth at bedtime PROZAC 40 MG CAPS 373147 FLUOXETINE HCL Inactive DICLOFENAC SODIUM 75 MG TBEC 1 tablet by mouth twice daily DICLOFENAC SODIUM 75 MG TBEC 938398 DICLOFENAC SODIUM Inactive SYMBICORT 160-4.5 MCG/ACT AERO 2 puffs inhaled bid SYMBICORT 160-4.5 MCG/ACT AERO BUDESONIDE-FORMOTEROL FUMARATE Inactive ZOFRAN 4 MG TABS 1 po q6hr PRN Nausea ZOFRAN 4 MG TABS 618597 ONDANSETRON HCL Inactive BETAMETHASONE DIPROPIONATE 0.05 % OINT Apply to affected areas BID for up to 2 weeks BETAMETHASONE DIPROPIONATE 0.05 % OINT 036886 BETAMETHASONE DIPROPIONATE Inactive BENICAR HCT 40-25 MG TABS Take one by mouth daily BENICAR HCT 40-25 MG TABS 316622 OLMESARTAN MEDOXOMIL-HCTZ Inactive ATORVASTATIN CALCIUM 80 MG TABS 1 po qHS ATORVASTATIN CALCIUM 80 MG TABS 848025 ATORVASTATIN CALCIUM Inactive CIPRO 500 MG TAB 1 tablet by mouth twice daily CIPRO 500 MG TAB 403914 CIPROFLOXACIN HCL Inactive Advance Directives Directive Description [...] Panel - Chemistry sodium, serum 143 mmol/L 836-046 7964/09/27 carbon dioxide, venous blood 30.1 mmol/L 21.0-32.0 potassium, serum 3.9 mmol/L 3.5-5.2 chloride, serum 107 mmol/L 98-107 blood glucose 114 mg/dL 65-110 urea nitrogen, blood 14 mg/dL 7-18 creatinine, serum 0.79 mg/dL 0.55-1.30 alanine aminotransferase (SGPT), serum 44 U/L 12-78 aspartate aminotransferase (SGOT), serum 25 U/L 15-37 calcium, serum 8.5 mg/dL 8.5-10.1 bilirubin, serum, total 0.30 mg/dL 0.00-1.00 cholesterol, serum 152 mg/dL 932-162 8628/09/27 triglyceride, serum, fasting 85 mg/dL 30-200 HDL cholesterol, serum 59 mg/dL 32-96 LDL cholesterol, serum 76 mg/dL 0-130 Lab Report: HGBA1C, Lipid Panel, Comp. Metabolic Panel - Chemistry hemoglobin A1C, blood, as % of total hemoglobin 6.2 % 4.3-6.0 cholesterol, serum 229 mg/dL 587-815 5966/07/24 triglyceride, serum, fasting 106 mg/dL 30-200 HDL cholesterol, serum 60 mg/dL 32-60 LDL cholesterol, serum 148 mg/dL 0-130 sodium, serum 139 mmol/L 172-542 8487/07/24 carbon dioxide, venous blood 34.8 mmol/L 21.0-32.0 [...] 0.00-1.00 Encounters Code Encounter Date Provider Facility CPT-45624 Level 4 Est. Patient 09:45:06 CDT Andre Barreto MD [facility] CPT-95538 Level 4 Est. Patient 11:53:39 MASTER DATA ANALYST Andre Barreto MD [facility] CPT-86469 Level 4 Est. Patient 14:21:31 CDT Andre Barreto MD [facility] CPT-00201 Level 4 Est. Patient 15:24:17 CDT Andre Barreto MD [facility] CPT-54862 Level 3 Est. Patient 10:36:40 CDT Andre Barreto MD [facility] CPT-01416 Level 4 Est. Patient 11:27:43 CDT Andre Barreto MD [facility] CPT-86090 Level 3 Est. Patient 10:57:31 MASTER DATA ANALYST Andre Barreto MD [facility] CPT-76872 Level 3 Est. Patient 13:53:13 MASTER DATA ANALYST Andre Barreto MD [facility] CPT-02966 Level 3 Est. Patient 09:16:12 CDT Andre Barreto MD [facility] CPT-63611 Level 3 Est. Patient 14:50:35 CDT Andre Barreto MD [facility] Procedures Code Procedure Name Date Entry Date Standard Description CPT-G0009 Administration of Pneumococcal Vaccine 10:12:50 CDT CPT-50550 Pneumovax 23 Injection Injectable 25 MCG/0.5ML 10:12:50 CDT CPT-G0439 Subsequent Annual Wellness Exam 09:49:25 CDT CPT-58520 First Vx - Ix admin for Medicare patients 17:55:11 MASTER DATA ANALYST CPT-61196 Fluzone High-Dose Intramuscular Suspension 17:55:11 MASTER DATA ANALYST CPT-15643 Venipuncture Draw Fee 14:11:36 CDT CPT-48166 Lipid - LAB USE ONLY 14:11:36 CDT CPT-80256 CMP - LAB USE ONLY 14:11:36 CDT CPT-G0438 Initial Annual Wellness Exam 13:29:06 CDT CPT-G0009 Administration of Pneumococcal Vaccine 13:26:57 CDT CPT-73462 Prevnar 13 Intramuscular Suspension 13:26:56 CDT 08/19 CPT-45214 Bone Density - XRAY USE ONLY 09:30:16 CDT CPT-Cryo Cryotherapy 08:59:26 MASTER DATA ANALYST CPT-Cryo Cryotherapy 08:46:02 CDT CPT-45671 Chest 2V Frontal and Lat 14:02:13 MASTER DATA ANALYST
--- OUTSIDE RECORDS SUMMARY | 2018-03-16 19:30 | XMS REPORT | Clinical Summary ---
Author Author Admin, EDUARDO Organization [employer] Address Unknown Phone Unavailable Allergies, Adverse Reactions, Alerts Allergy Name Reaction Description Start Date Severity Status Provider SULFA Mild No Longer Active Jillina Frazell CHEMISTRY TEACHER PENICILLIN Mild No Longer Active Jillina Frazell CHEMISTRY TEACHER ZINC Mild No Longer Active Jillina Frazell CHEMISTRY TEACHER SULFA Critical No Longer Active Marcelle [...] Coronary atherosclerosis of unspecified type of vessel, [place] or graft Obstructive sleep apnea 327.23 Active [...] airway pressure rx V46.2 Active Pushpa Hernandez CHEMISTRY TEACHER Other dependence on machines, supplemental oxygen Osteopenia 733.90 Active Pushpa Hernandez APRN Disorder of bone and cartilage, unspecified Obstructive sleep apnea 327.23 Active Andre Barreto MD Obstructive sleep apnea (adult) (pediatric) Acute exacerbation of chronic bronchitis 491.22 Inactive Solitario Howe MD Obstructive chronic bronchitis with acute bronchitis Sinusitis 473.9 Active David King CHEMISTRY TEACHER Unspecified sinusitis (chronic) Abscess, skin 682.9 [...] Apply to affected area BID 05/18 MUPIROCIN 97640482250 No Longer Active Moira Price MA Active CLINDAMYCIN HCL 300 MG ORAL CAPSULE 1 po QID x 7 days CLINDAMYCIN HCL 09081131045 No Longer Active Jillina Frazell CHEMISTRY TEACHER Active BACTRIM DS 800-160 MG ORAL TABLET 1 tab by mouth twice daily 2017 TRIMETHOPRIM-SULFAMETHOXAZOLE 72262985000 No Longer Active Jillina Frazell CHEMISTRY TEACHER Active GUAIFENESIN DM 400-20 MG ORAL TABLET 1 pill by mouth twice daily, if needed for cough DEXTROMETHORPHAN-GUAIFENESIN 00409237507 Active Jillina Frazell CHEMISTRY TEACHER Active CEFDINIR 300 MG ORAL CAPSULE by mouth twice a day CEFDINIR 07626896343 No Longer Active Jillina Frazell CHEMISTRY TEACHER Active BENZONATATE 200 MG ORAL CAPSULE 1 three times a day as needed for cough 03/27 BENZONATATE 08078880938 No Longer Active Luna Prabhakar Active ZITHROMAX Z-NEVAEH 250 MG ORAL TABLET 2 today and then 1 daily for 4 days 03/27 AZITHROMYCIN 79375952776 No Longer Active Luna Prabhakar Active PREDNISONE 20 MG ORAL TABLET 2 daily for 3 days then 1 daily for 3 days 03/27 PREDNISONE 79524496531 No Longer Active Luna Prabhakar Active ATORVASTATIN CALCIUM 40 MG ORAL TABLET 1 po qHS ATORVASTATIN CALCIUM 53947445213 Active Marcelle VERA Active CLOPIDOGREL BISULFATE 75 MG ORAL TABLET 1 po qd CLOPIDOGREL BISULFATE 27848668393 Active Andre Barreto MD Active FUROSEMIDE 20 MG ORAL TABLET 1 po qd PRN Edema FUROSEMIDE 60630141335 Active Andre Barreto MD Active PROAIR HFA 108 (90 Base) MCG/ACT INHALATION AEROSOL SOLUTION 2 puffs q4hr PRN Shortness of air/Wheezing ALBUTEROL SULFATE 90188229176 Active Andre Barreto MD Active ATORVASTATIN CALCIUM 80 MG ORAL TABLET 1 po qHS ATORVASTATIN CALCIUM 95795833587 No Longer Active Andre Barreto MD Active AMBIEN 5 MG ORAL TABLET 1 po qHS PRN Insomnia ZOLPIDEM TARTRATE 89232216502 Active Andre Barreto MD Active DETROL 2 MG ORAL TABLET 1 po qd TOLTERODINE TARTRATE 60683214091 Active Andre Barreto MD Active NITROGLYCERIN 0.4 MG SUBLINGUAL TABLET SUBLINGUAL 1 SL q5min PRN Chest pain up to 3 doses NITROGLYCERIN 57166999805 Active Andre Barreto MD Active TOPROL XL 50 MG ORAL TABLET EXTENDED RELEASE 24 HOUR 1 po qd METOPROLOL SUCCINATE 57040752580 Active Andre Barreto MD Active SYMBICORT 160-4.5 MCG/ACT INHALATION AEROSOL 2 puff BID BUDESONIDE-FORMOTEROL FUMARATE 88808570506 Active Cayla VERA Active FLUOXETINE HCL 40 MG ORAL CAPSULE 1 po qd FLUOXETINE HCL 62180141352 Active Andre Barreto MD Active BENICAR HCT 40-25 MG ORAL TABLET Take one by mouth daily OLMESARTAN MEDOXOMIL-HCTZ 16572975230 No Longer Active Andre Barreto MD Active LOSARTAN POTASSIUM-HCTZ 100-25 MG ORAL TABLET 1 po qd LOSARTAN POTASSIUM-HCTZ 73834788980 Active Andre Barreto MD Active BETAMETHASONE DIPROPIONATE 0.05 % EXTERNAL OINTMENT Apply to affected areas BID for up to 2 weeks BETAMETHASONE DIPROPIONATE 60838386162 No Longer Active Andre Barreto MD Active ZOFRAN 4 MG ORAL TABLET 1 po q6hr PRN Nausea ONDANSETRON HCL 40060755952 No Longer Active Andre Barreto MD Active CIPRO 500 MG ORAL TABLET 1 tablet by mouth twice daily CIPROFLOXACIN HCL 38379853693 No Longer Active Andre Barreto MD Active SYMBICORT 160-4.5 MCG/ACT INHALATION AEROSOL 2 puffs inhaled bid BUDESONIDE-FORMOTEROL FUMARATE 81821393677 No Longer Active Andre Barreto MD Active DICLOFENAC SODIUM 75 MG ORAL TABLET DELAYED RELEASE 1 tablet by mouth twice daily DICLOFENAC SODIUM 46305158984 No Longer Active Andre Barreto MD Active PROZAC 40 MG ORAL CAPSULE 1 cap by mouth at bedtime FLUOXETINE HCL 48407441281 No Longer Active Andre Barreto MD Active HYDROCODONE-ACETAMINOPHEN 5-325 MG ORAL TABLET 1 po q 6hr PRN Pain HYDROCODONE-ACETAMINOPHEN 93225962048 No Longer Active Andre Barreto MD Active TRAMADOL HCL 50 MG ORAL TABLET 2 po q 6 hrs prn TRAMADOL HCL 45725230971 Active Andre Barreto MD Active HYDROCODONE-ACETAMINOPHEN 5-325 MG ORAL TABLET 1 po q 6hr PRN Pain HYDROCODONE-ACETAMINOPHEN 5-325 MG ORAL TABLET 741081 HYDROCODONE- ACETAMINOPHEN Inactive PROZAC 40 MG ORAL CAPSULE 1 cap by mouth at bedtime PROZAC 40 MG ORAL CAPSULE 029068 FLUOXETINE HCL Inactive DICLOFENAC SODIUM 75 MG ORAL TABLET DELAYED RELEASE 1 tablet by mouth twice daily DICLOFENAC SODIUM 75 MG ORAL TABLET DELAYED RELEASE 797516 DICLOFENAC SODIUM Inactive SYMBICORT 160-4.5 MCG/ACT INHALATION AEROSOL 2 puffs inhaled bid SYMBICORT 160-4.5 MCG/ACT INHALATION AEROSOL BUDESONIDE-FORMOTEROL FUMARATE Inactive ZOFRAN 4 MG ORAL TABLET 1 po q6hr PRN Nausea ZOFRAN 4 MG ORAL TABLET 578316 ONDANSETRON HCL Inactive BETAMETHASONE DIPROPIONATE 0.05 % EXTERNAL OINTMENT Apply to affected areas BID for up to 2 weeks BETAMETHASONE DIPROPIONATE 0.05 % EXTERNAL OINTMENT 375981 BETAMETHASONE DIPROPIONATE Inactive BENICAR HCT 40-25 MG ORAL TABLET Take one by mouth daily BENICAR HCT 40-25 MG ORAL TABLET 997886 OLMESARTAN MEDOXOMIL-HCTZ Inactive ATORVASTATIN CALCIUM 80 MG ORAL TABLET 1 po qHS ATORVASTATIN CALCIUM 80 MG ORAL TABLET 261720 ATORVASTATIN CALCIUM Inactive PREDNISONE 20 MG ORAL TABLET 2 daily for 3 days then 1 daily for 3 days 03/27 PREDNISONE 20 MG ORAL TABLET 283792 PREDNISONE Inactive ZITHROMAX Z-NEVAEH 250 MG ORAL TABLET 2 today and then 1 daily for 4 days 03/27 ZITHROMAX Z-NEVAEH 250 MG ORAL TABLET 354972 AZITHROMYCIN Inactive BENZONATATE 200 MG ORAL CAPSULE 1 three times a day as needed for cough 03/27 BENZONATATE 200 MG ORAL CAPSULE 000909 BENZONATATE Inactive BACTRIM DS 800-160 MG ORAL TABLET 1 tab by mouth twice daily 2017 BACTRIM DS 800-160 MG ORAL TABLET 080616 TRIMETHOPRIM- SULFAMETHOXAZOLE Inactive BACTROBAN 2 % EXTERNAL OINTMENT Apply to affected area BID 05/18 BACTROBAN 2 % EXTERNAL OINTMENT 953301 MUPIROCIN Inactive CIPRO 500 MG ORAL TABLET 1 tablet by mouth twice daily CIPRO 500 MG ORAL TABLET 493668 CIPROFLOXACIN HCL Inactive CEFDINIR 300 MG ORAL CAPSULE by mouth twice a day CEFDINIR 300 MG ORAL CAPSULE 287533 CEFDINIR Inactive CLINDAMYCIN HCL 300 MG ORAL CAPSULE 1 po QID x 7 days CLINDAMYCIN HCL 300 MG ORAL CAPSULE 230794 CLINDAMYCIN HCL Inactive Advance Directives Directive Description [...] 6.2 % 4.3-6.0 cholesterol, serum 229 mg/dL 911-145 0085/07/24 triglyceride, serum, fasting 106 mg/dL 30-200 HDL cholesterol, serum 60 mg/dL 32-60 LDL cholesterol, serum 148 mg/dL 0-130 sodium, serum 139 mmol/L 630-372 4402/07/24 carbon dioxide, venous blood 34.8 mmol/L 21.0-32.0 [...] Panel - Chemistry cholesterol, serum 275 mg/dL 292-312 6971/11/07 triglyceride, serum, fasting 166 mg/dL 30-200 HDL cholesterol, serum 62 mg/dL 32-60 LDL cholesterol, serum 180 mg/dL 0-130 sodium, serum 141 mmol/L 230-355 9623/11/07 carbon dioxide, venous blood 26.3 mmol/L 21.0-32.0 [...] 0-19 Encounters Code Encounter Date Provider Facility CPT-75328 Level 3 Est. Patient 14:29:01 CDT Esa Jackson MD [facility] CPT-96335 Level 3 Est. Patient 14:06:16 CDT Andre Barreto MD [facility] CPT-13623 Level 3 Est. Patient 09:16:36 CDT David King [facility] CPT-53155 Level 3 Est. Patient 09:24:01 CHEMICAL MANAGER David King [facility] CPT-14155 Level 3 Est. Patient 13:01:07 CHEMICAL MANAGER Solitario Howe MD [facility] CPT-68274 Level 4 Est. Patient 10:26:48 CHEMICAL MANAGER Andre Barreto MD [facility] CPT-73691 Level 4 Est. Patient 09:45:06 CDT Andre Barreto MD [facility] CPT-29626 Level 4 Est. Patient 11:53:39 CHEMICAL MANAGER Andre Barreto MD [facility] CPT-71108 Level 4 Est. Patient 14:21:31 CDT Andre Barreto MD [facility] CPT-49184 Level 4 Est. Patient 15:24:17 CDT Andre Barreto MD [facility] CPT-08648 Level 3 Est. Patient 10:36:40 CDT Andre Barreto MD [facility] CPT-88023 Level 4 Est. Patient 11:27:43 CDT Andre Barreto MD [facility] CPT-87471 Level 3 Est. Patient 10:57:31 CHEMICAL MANAGER Andre Barreto MD [facility] CPT-67543 Level 3 Est. Patient 13:53:13 CHEMICAL MANAGER Andre Barreto MD [facility] CPT-61835 Level 3 Est. Patient 09:16:12 CDT Andre Barreto MD [facility] CPT-05574 Level 3 Est. Patient 14:50:35 CDT Andre Barreto MD [facility] Procedures Code Procedure Name Date Entry Date Standard Description CPT-37634 Postop F/U Visit 14:31:27 CDT CPT-53095 Postop F/U Visit 14:30:20 CDT CPT-85076 Sono pelvis coley bladder only - XRAY USE ONLY 15:07:39 CDT CPT-42982 First Vx - Ix admin for Medicare patients 13:56:44 CHEMICAL MANAGER CPT-82306 Zostavax Subcutaneous Solution Reconstituted 59812 UNT/0.65ML 12/22 13:56:44 CHEMICAL MANAGER CPT-G0009 Administration of Pneumococcal Vaccine 10:12:50 CDT CPT-55912 Pneumovax 23 Injection Injectable 25 MCG/0.5ML 10:12:50 CDT CPT-G0439 Subsequent Annual Wellness Exam 09:49:25 CDT CPT-91737 First Vx - Ix admin for Medicare patients 17:55:11 CHEMICAL MANAGER CPT-30321 Fluzone High-Dose Intramuscular Suspension 17:55:11 CHEMICAL MANAGER CPT-57825 Venipuncture Draw Fee 14:11:36 CDT CPT-87811 Lipid - LAB USE ONLY 14:11:36 CDT CPT-03002 CMP - LAB USE ONLY 14:11:36 CDT CPT-G0438 Initial Annual Wellness Exam 13:29:06 CDT CPT-G0009 Administration of Pneumococcal Vaccine 13:26:57 CDT CPT-81267 Prevnar 13 Intramuscular Suspension 13:26:56 CDT 08/19 CPT-75986 Bone Density - XRAY USE ONLY 09:30:16 CDT CPT-Cryo Cryotherapy 08:59:26 CHEMICAL MANAGER CPT-Cryo Cryotherapy 08:46:02 CDT CPT-85180 Chest 2V Frontal and Lat 14:02:13 CHEMICAL MANAGER
--- OUTSIDE RECORDS SUMMARY | 2018-03-16 19:30 | XMS REPORT | Clinical Summary ---
Author Author Admin, EDUARDO Organization [employer] Address Unknown Phone Unavailable Allergies, Adverse Reactions, [...] Coronary atherosclerosis of unspecified type of vessel, [place] or graft Obstructive sleep apnea 327.23 Active [...] airway pressure rx V46.2 Active Pushpa Beverly [employer]ER Other dependence on machines, supplemental oxygen Osteopenia [...] NDC Status Provider Patient Instruction ATORVASTATIN CALCIUM 40 MG ORAL TABLET 1 po qHS ATORVASTATIN CALCIUM 61000343924 Active Marcellekala Key RMA Active CLOPIDOGREL BISULFATE 75 MG ORAL TABLET 1 po qd CLOPIDOGREL BISULFATE 06084590655 Active Andre Barreto MD Active FUROSEMIDE 20 MG ORAL TABLET 1 po qd PRN Edema FUROSEMIDE 20828083826 Active Andre Barreto MD Active PROAIR HFA 108 (90 Base) MCG/ACT INHALATION AEROSOL SOLUTION 2 puffs q4hr PRN Shortness of air/Wheezing ALBUTEROL SULFATE 93629036664 Active Andre Barreto MD Active ATORVASTATIN CALCIUM 80 MG ORAL TABLET 1 po qHS ATORVASTATIN CALCIUM 02295863894 No Longer Active Andre Barreto MD Active AMBIEN 5 MG ORAL TABLET 1 po qHS PRN Insomnia ZOLPIDEM TARTRATE 64855438665 Active Andre Barreto MD Active DETROL 2 MG ORAL TABLET 1 po qd TOLTERODINE TARTRATE 37109502399 Active Andre Barreto MD Active NITROGLYCERIN 0.4 MG SUBLINGUAL TABLET SUBLINGUAL 1 SL q5min PRN Chest pain up to 3 doses NITROGLYCERIN 06609117677 Active Andre Barreto MD Active TOPROL XL 50 MG ORAL TABLET EXTENDED RELEASE 24 HOUR 1 po qd METOPROLOL SUCCINATE 86797401188 Active Andre Barreto MD Active SYMBICORT 160-4.5 MCG/ACT INHALATION AEROSOL 2 puff BID BUDESONIDE-FORMOTEROL FUMARATE 99047970458 Active Cayla Flanagan [facility] Active FLUOXETINE HCL 40 MG ORAL CAPSULE 1 po qd FLUOXETINE HCL 77460828273 Active Andre Barreto MD Active BENICAR HCT 40-25 MG ORAL TABLET Take one by mouth daily OLMESARTAN MEDOXOMIL-HCTZ 17650460369 No Longer Active Andre Barreto MD Active LOSARTAN POTASSIUM-HCTZ 100-25 MG ORAL TABLET 1 po qd LOSARTAN POTASSIUM-HCTZ 49212730971 Active Andre Barreto MD Active BETAMETHASONE DIPROPIONATE 0.05 % EXTERNAL OINTMENT Apply to affected areas BID for up to 2 weeks BETAMETHASONE DIPROPIONATE 48278788744 No Longer Active Andre Barreto MD Active ZOFRAN 4 MG ORAL TABLET 1 po q6hr PRN Nausea ONDANSETRON HCL 00744751084 No Longer Active Andre Barreto MD Active CIPRO 500 MG ORAL TABLET 1 tablet by mouth twice daily CIPROFLOXACIN HCL 16993099450 No Longer Active Andre Barreto MD Active SYMBICORT 160-4.5 MCG/ACT INHALATION AEROSOL 2 puffs inhaled bid BUDESONIDE-FORMOTEROL FUMARATE 99562855265 No Longer Active Andre Barreto MD Active DICLOFENAC SODIUM 75 MG ORAL TABLET DELAYED RELEASE 1 tablet by mouth twice daily DICLOFENAC SODIUM 80058196189 No Longer Active Andre Barreto MD Active PROZAC 40 MG ORAL CAPSULE 1 cap by mouth at bedtime FLUOXETINE HCL 31580449546 No Longer Active Andre Barreto MD Active HYDROCODONE-ACETAMINOPHEN 5-325 MG ORAL TABLET 1 po q 6hr PRN Pain HYDROCODONE-ACETAMINOPHEN 55958295755 No Longer Active Andre Barreto MD Active TRAMADOL HCL 50 MG ORAL TABLET 2 po q 6 hrs prn TRAMADOL HCL 56301639522 Active Andre Barreto MD Active HYDROCODONE-ACETAMINOPHEN 5-325 MG ORAL TABLET 1 po q 6hr PRN Pain HYDROCODONE-ACETAMINOPHEN 5-325 MG ORAL TABLET 659736 HYDROCODONE- ACETAMINOPHEN Inactive PROZAC 40 MG ORAL CAPSULE 1 cap by mouth at bedtime PROZAC 40 MG ORAL CAPSULE 882840 FLUOXETINE HCL Inactive DICLOFENAC SODIUM 75 MG ORAL TABLET DELAYED RELEASE 1 tablet by mouth twice daily DICLOFENAC SODIUM 75 MG ORAL TABLET DELAYED RELEASE 988438 DICLOFENAC SODIUM Inactive SYMBICORT 160-4.5 MCG/ACT INHALATION AEROSOL 2 puffs inhaled bid SYMBICORT 160-4.5 MCG/ACT INHALATION AEROSOL BUDESONIDE-FORMOTEROL FUMARATE Inactive ZOFRAN 4 MG ORAL TABLET 1 po q6hr PRN Nausea ZOFRAN 4 MG ORAL TABLET 739425 ONDANSETRON HCL Inactive BETAMETHASONE DIPROPIONATE 0.05 % EXTERNAL OINTMENT Apply to affected areas BID for up to 2 weeks BETAMETHASONE DIPROPIONATE 0.05 % EXTERNAL OINTMENT 693823 BETAMETHASONE DIPROPIONATE Inactive BENICAR HCT 40-25 MG ORAL TABLET Take one by mouth daily BENICAR HCT 40-25 MG ORAL TABLET 288797 OLMESARTAN MEDOXOMIL-HCTZ Inactive ATORVASTATIN CALCIUM 80 MG ORAL TABLET 1 po qHS ATORVASTATIN CALCIUM 80 MG ORAL TABLET 501015 ATORVASTATIN CALCIUM Inactive CIPRO 500 MG ORAL TABLET 1 tablet by mouth twice daily CIPRO 500 MG ORAL TABLET 316537 CIPROFLOXACIN HCL Inactive Advance Directives Directive Description [...] 6.2 % 4.3-6.0 cholesterol, serum 229 mg/dL 990-923 0711/07/24 triglyceride, serum, fasting 106 mg/dL 30-200 HDL cholesterol, serum 60 mg/dL 32-60 LDL cholesterol, serum 148 mg/dL 0-130 sodium, serum 139 mmol/L 760-389 6387/07/24 carbon dioxide, venous blood 34.8 mmol/L 21.0-32.0 [...] Panel - Chemistry cholesterol, serum 275 mg/dL 185-010 2160/11/07 triglyceride, serum, fasting 166 mg/dL 30-200 HDL cholesterol, serum 62 mg/dL 32-60 LDL cholesterol, serum 180 mg/dL 0-130 sodium, serum 141 mmol/L 963-765 0129/11/07 carbon dioxide, venous blood 26.3 mmol/L 21.0-32.0 [...] 0-19 Encounters Code Encounter Date Provider Facility CPT-30239 Level 4 Est. Patient 10:26:48 EQUITIES ANALYST Andre Barreto MD [facility] CPT-30386 Level 4 Est. Patient 09:45:06 CDT Andre Brareto MD [facility] CPT-62643 Level 4 Est. Patient 11:53:39 EQUITIES ANALYST Andre Barreto MD [facility] CPT-46278 Level 4 Est. Patient 14:21:31 CDT Andre Barreto MD [facility] CPT-39312 Level 4 Est. Patient 15:24:17 CDT Andre Barreto MD [facility] CPT-90380 Level 3 Est. Patient 10:36:40 CDT Andre Barreto MD [facility] CPT-36684 Level 4 Est. Patient 11:27:43 CDT Andre Barreto MD [facility] CPT-60666 Level 3 Est. Patient 10:57:31 EQUITIES ANALYST Andre Barreto MD [facility] CPT-60400 Level 3 Est. Patient 13:53:13 EQUITIES ANALYST Andre Barreto MD [facility] CPT-11874 Level 3 Est. Patient 09:16:12 CDT Andre Barreto MD [facility] CPT-08518 Level 3 Est. Patient 14:50:35 CDT Andre Barreto MD [facility] Procedures Code Procedure Name Date Entry Date Standard Description CPT-56322 First Vx - Ix admin for Medicare patients 13:56:44 EQUITIES ANALYST CPT-50372 Zostavax Subcutaneous Solution Reconstituted 75515 UNT/0.65ML 12/22 13:56:44 EQUITIES ANALYST CPT-G0009 Administration of Pneumococcal Vaccine 10:12:50 CDT CPT-61115 Pneumovax 23 Injection Injectable 25 MCG/0.5ML 10:12:50 CDT CPT-G0439 Subsequent Annual Wellness Exam 09:49:25 CDT CPT-08937 First Vx - Ix admin for Medicare patients 17:55:11 EQUITIES ANALYST CPT-30281 Fluzone High-Dose Intramuscular Suspension 17:55:11 EQUITIES ANALYST CPT-73608 Venipuncture Draw Fee 14:11:36 CDT CPT-53839 Lipid - LAB USE ONLY 14:11:36 CDT CPT-34991 CMP - LAB USE ONLY 14:11:36 CDT CPT-G0438 Initial Annual Wellness Exam 13:29:06 CDT CPT-G0009 Administration of Pneumococcal Vaccine 13:26:57 CDT CPT-02451 Prevnar 13 Intramuscular Suspension 13:26:56 CDT 08/19 CPT-78020 Bone Density - XRAY USE ONLY 09:30:16 CDT CPT-Cryo Cryotherapy 08:59:26 EQUITIES ANALYST CPT-Cryo Cryotherapy 08:46:02 CDT CPT-31191 Chest 2V Frontal and Lat 14:02:13 EQUITIES ANALYST
--- OUTSIDE RECORDS SUMMARY | 2018-03-16 19:31 | XMS REPORT | Clinical Summary ---
Author Author Admin, E Organization [employer] [facility] Address Unknown Phone Unavailable Allergies, Adverse [...] Coronary atherosclerosis of unspecified type of vessel, [place] or graft Obstructive sleep apnea 327.23 Active [...] ORAL TABLET 1 po qHS ATORVASTATIN CALCIUM 46351324065 Active Marcelle Yesi A Active CLOPIDOGREL BISULFATE 75 MG ORAL TABLET 1 po qd CLOPIDOGREL BISULFATE 16025855413 Active Andre Barreto MD Active FUROSEMIDE 20 MG ORAL TABLET 1 po qd PRN Edema FUROSEMIDE 22139920218 Active Andre Barreto MD Active PROAIR HFA 108 (90 Base) MCG/ACT INHALATION AEROSOL SOLUTION 2 puffs q4hr PRN Shortness of air/Wheezing ALBUTEROL SULFATE 64236214007 Active Andre Barreto MD Active ATORVASTATIN CALCIUM 80 MG ORAL TABLET 1 po qHS ATORVASTATIN CALCIUM 48782949376 No Longer Active Andre Barreto MD Active AMBIEN 5 MG ORAL TABLET 1 po qHS PRN Insomnia ZOLPIDEM TARTRATE 25202187854 Active Andre Barreto MD Active DETROL 2 MG ORAL TABLET 1 po qd TOLTERODINE TARTRATE 43752894470 Active Andre Barreto MD Active NITROGLYCERIN 0.4 MG SUBLINGUAL TABLET SUBLINGUAL 1 SL q5min PRN Chest pain up to 3 doses NITROGLYCERIN 81886324369 Active Andre Barreto MD Active TOPROL XL 50 MG ORAL TABLET EXTENDED RELEASE 24 HOUR 1 po qd METOPROLOL SUCCINATE 22068631856 Active Andre Barreto MD Active SYMBICORT 160-4.5 MCG/ACT INHALATION AEROSOL 2 puff BID BUDESONIDE-FORMOTEROL FUMARATE 98834433184 Active Cayla Flanagan [facility] Active FLUOXETINE HCL 40 MG ORAL CAPSULE 1 po qd FLUOXETINE HCL 22925191766 Active Andre Barreto MD Active BENICAR HCT 40-25 MG ORAL TABLET Take one by mouth daily OLMESARTAN MEDOXOMIL-HCTZ 04218299660 No Longer Active Andre Barreto MD Active LOSARTAN POTASSIUM-HCTZ 100-25 MG ORAL TABLET 1 po qd LOSARTAN POTASSIUM-HCTZ 45735160541 Active Andre Barreto MD Active BETAMETHASONE DIPROPIONATE 0.05 % EXTERNAL OINTMENT Apply to affected areas BID for up to 2 weeks BETAMETHASONE DIPROPIONATE 82271848277 No Longer Active Andre Barreto MD Active ZOFRAN 4 MG ORAL TABLET 1 po q6hr PRN Nausea ONDANSETRON HCL 08496176354 No Longer Active Andre Barreto MD Active CIPRO 500 MG ORAL TABLET 1 tablet by mouth twice daily CIPROFLOXACIN HCL 97552540359 No Longer Active Andre Barreto MD Active SYMBICORT 160-4.5 MCG/ACT INHALATION AEROSOL 2 puffs inhaled bid BUDESONIDE-FORMOTEROL FUMARATE 24728232300 No Longer Active Andre Barreto MD Active DICLOFENAC SODIUM 75 MG ORAL TABLET DELAYED RELEASE 1 tablet by mouth twice daily DICLOFENAC SODIUM 65616071247 No Longer Active Andre Barreto MD Active PROZAC 40 MG ORAL CAPSULE 1 cap by mouth at bedtime FLUOXETINE HCL 77818101149 No Longer Active Andre Barreto MD Active HYDROCODONE-ACETAMINOPHEN 5-325 MG ORAL TABLET 1 po q 6hr PRN Pain HYDROCODONE-ACETAMINOPHEN 37757837886 No Longer Active Andre Barreto MD Active TRAMADOL HCL 50 MG ORAL TABLET 2 po q 6 hrs prn TRAMADOL HCL 50021108795 Active Andre Barreto MD Active HYDROCODONE-ACETAMINOPHEN 5-325 MG ORAL TABLET 1 po q 6hr PRN Pain HYDROCODONE-ACETAMINOPHEN 5-325 MG ORAL TABLET 239474 HYDROCODONE- ACETAMINOPHEN Inactive PROZAC 40 MG ORAL CAPSULE 1 cap by mouth at bedtime PROZAC 40 MG ORAL CAPSULE 170817 FLUOXETINE HCL Inactive DICLOFENAC SODIUM 75 MG ORAL TABLET DELAYED RELEASE 1 tablet by mouth twice daily DICLOFENAC SODIUM 75 MG ORAL TABLET DELAYED RELEASE 976196 DICLOFENAC SODIUM Inactive SYMBICORT 160-4.5 MCG/ACT INHALATION AEROSOL 2 puffs inhaled bid SYMBICORT 160-4.5 MCG/ACT INHALATION AEROSOL BUDESONIDE-FORMOTEROL FUMARATE Inactive ZOFRAN 4 MG ORAL TABLET 1 po q6hr PRN Nausea ZOFRAN 4 MG ORAL TABLET 012616 ONDANSETRON HCL Inactive BETAMETHASONE DIPROPIONATE 0.05 % EXTERNAL OINTMENT Apply to affected areas BID for up to 2 weeks BETAMETHASONE DIPROPIONATE 0.05 % EXTERNAL OINTMENT 720714 BETAMETHASONE DIPROPIONATE Inactive BENICAR HCT 40-25 MG ORAL TABLET Take one by mouth daily BENICAR HCT 40-25 MG ORAL TABLET 115574 OLMESARTAN MEDOXOMIL-HCTZ Inactive ATORVASTATIN CALCIUM 80 MG ORAL TABLET 1 po qHS ATORVASTATIN CALCIUM 80 MG ORAL TABLET 807867 ATORVASTATIN CALCIUM Inactive CIPRO 500 MG ORAL TABLET 1 tablet by mouth twice daily CIPRO 500 MG ORAL TABLET 714546 CIPROFLOXACIN HCL Inactive Advance Directives Directive Description [...] 6.2 % 4.3-6.0 cholesterol, serum 229 mg/dL 376-603 5233/07/24 triglyceride, serum, fasting 106 mg/dL 30-200 HDL cholesterol, serum 60 mg/dL 32-60 LDL cholesterol, serum 148 mg/dL 0-130 sodium, serum 139 mmol/L 860-014 1181/07/24 carbon dioxide, venous blood 34.8 mmol/L 21.0-32.0 [...] Panel - Chemistry cholesterol, serum 275 mg/dL 181-235 3244/11/07 triglyceride, serum, fasting 166 mg/dL 30-200 HDL cholesterol, serum 62 mg/dL 32-60 LDL cholesterol, serum 180 mg/dL 0-130 sodium, serum 141 mmol/L 186-829 2811/11/07 carbon dioxide, venous blood 26.3 mmol/L 21.0-32.0 [...] 0-19 Encounters Code Encounter Date Provider Facility CPT-21523 Level 4 Est. Patient 10:26:48 DESULFURIZER MACHINE Andre Barreto MD [facility] CPT-09332 Level 4 Est. Patient 09:45:06 CDT Andre Barreto MD [facility] CPT-91049 Level 4 Est. Patient 11:53:39 DESULFURIZER MACHINE Andre Barreto MD [facility] CPT-99393 Level 4 Est. Patient 14:21:31 CDT Andre Barreto MD [facility] CPT-66529 Level 4 Est. Patient 15:24:17 CDT Andre Barreto MD [facility] CPT-58903 Level 3 Est. Patient 10:36:40 CDT Andre Barreto MD [facility] CPT-24750 Level 4 Est. Patient 11:27:43 CDT Andre Barreto MD [facility] CPT-79106 Level 3 Est. Patient 10:57:31 DESULFURIZER MACHINE Andre Barreto MD [facility] CPT-12269 Level 3 Est. Patient 13:53:13 DESULFURIZER MACHINE Andre Barreto MD [facility] CPT-84947 Level 3 Est. Patient 09:16:12 CDT Andre Barreto MD [facility] CPT-50957 Level 3 Est. Patient 14:50:35 CDT Andre Barreto MD [facility] Procedures Code Procedure Name Date Entry Date Standard Description CPT-83687 First Vx - Ix admin for Medicare patients 13:56:44 DESULFURIZER MACHINE CPT-67881 Zostavax Subcutaneous Solution Reconstituted 80111 UNT/0.65ML 12/22 13:56:44 DESULFURIZER MACHINE CPT-G0009 Administration of Pneumococcal Vaccine 10:12:50 CDT CPT-55453 Pneumovax 23 Injection Injectable 25 MCG/0.5ML 10:12:50 CDT CPT-G0439 Subsequent Annual Wellness Exam 09:49:25 CDT CPT-22105 First Vx - Ix admin for Medicare patients 17:55:11 DESULFURIZER MACHINE CPT-92994 Fluzone High-Dose Intramuscular Suspension 17:55:11 DESULFURIZER MACHINE CPT-66705 Venipuncture Draw Fee 14:11:36 CDT CPT-49995 Lipid - LAB USE ONLY 14:11:36 CDT CPT-22094 CMP - LAB USE ONLY 14:11:36 CDT CPT-G0438 Initial Annual Wellness Exam 13:29:06 CDT CPT-G0009 Administration of Pneumococcal Vaccine 13:26:57 CDT CPT-52782 Prevnar 13 Intramuscular Suspension 13:26:56 CDT 08/19 CPT-71767 Bone Density - XRAY USE ONLY 09:30:16 CDT CPT-Cryo Cryotherapy 08:59:26 DESULFURIZER MACHINE CPT-Cryo Cryotherapy 08:46:02 CDT CPT-88977 Chest 2V Frontal and Lat 14:02:13 DESULFURIZER MACHINE
--- OUTSIDE RECORDS SUMMARY | 2018-03-16 19:31 | XMS REPORT | Clinical Summary ---
Author Author Admin, EDUARDO Organization [employer] Address Unknown Phone Unavailable Allergies, Adverse Reactions, [...] Coronary atherosclerosis of unspecified type of vessel, [place] or graft Obstructive sleep apnea 327.23 Active [...] MD Unspecified chronic bronchitis Postmenopausal status V49.81 Active Janette NICHOLS Asymptomatic postmenopausal status (age-related) (natural) Family history of osteoporosis V17.81 Active Janette NICHOLS Family history of osteoporosis DYSPNEA ICD-786.09 Inactive Andre Barreto MD 2012 FATIGUE ICD-780.79 Inactive Andre Barreto MD 2012 DYSPNEA ICD-786.05 Inactive Andre Barreto MD 2012 Fever ICD-780.60 Inactive Andre Barreto MD 05/23 Skin tag ICD-701.9 Inactive Andre Barreto MD 2014 Weakness, muscle ICD-728.87 Inactive Andre Barreto MD Dyshidrotic eczema, hands ICD-705.81 Inactive Andre Barreto MD Medication List Medication Instructions Start Date Stop Date Generic Name NDC Status Provider Patient Instruction ATORVASTATIN CALCIUM 80 MG TABS 1 po qHS ATORVASTATIN CALCIUM 09794519337 Active Andre Barreto MD Active SYMBICORT 160-4.5 MCG/ACT AERO 2 puff BID BUDESONIDE- FORMOTEROL FUMARATE 86269957184 Active Andre Barreto MD Active PROAIR HFA 108 (90 BASE) MCG/ACT AERS 2 puffs four times a day as needed 2015 ALBUTEROL SULFATE 58762232746 Active Andre Barreto MD Active FLUOXETINE HCL 40 MG ORAL CAPS 1 po qd FLUOXETINE HCL 13185856290 Active Andre Barreto MD Active DETROL 2 MG ORAL TABS one tab daily TOLTERODINE TARTRATE 54737759863 Active Andre Barreto MD Active BENICAR HCT 40-25 MG TABS Take one by mouth daily OLMESARTAN MEDOXOMIL-HCTZ 65250805408 No Longer Active Andre Barreto MD Active LOSARTAN POTASSIUM-HCTZ 100-25 MG TABS 1 po qd [place]ARTAN POTASSIUM-HCTZ 29150474945 Active Andre Barreto MD Active BETAMETHASONE DIPROPIONATE 0.05 % OINT Apply to affected areas BID for up to 2 weeks BETAMETHASONE DIPROPIONATE 64723822728 No Longer Active Andre Barreto MD Active ZOFRAN 4 MG TABS 1 po q6hr PRN Nausea ONDANSETRON HCL 10980616589 No Longer Active Andre Barreto MD Active CIPRO 500 MG TAB 1 tablet by mouth twice daily CIPROFLOXACIN HCL 18287146159 No Longer Active Andre Barreto MD Active SYMBICORT 160-4.5 MCG/ACT AERO 2 puffs inhaled bid BUDESONIDE- FORMOTEROL FUMARATE 75736860963 No Longer Active Andre Barreto MD Active LASIX 20 MG TAB 1 tablet by mouth daily PRN FUROSEMIDE 73448782475 Active Andre Barreto MD Active TOPROL XL 25 MG [id number] Take one by mouth daily METOPROLOL SUCCINATE 78911246230 Active Andre Barreto MD Active PLAVIX 75 MG TABS 1 tablet by mouth daily CLOPIDOGREL BISULFATE 95748136611 Active Andre Barreto MD Active NITROSTAT 0.4 MG SL TAB disolve 1 under tongue repeat if needed NITROGLYCERIN 18546951857 Active Andre Barreto MD Active DICLOFENAC SODIUM 75 MG TBEC 1 tablet by mouth twice daily DICLOFENAC SODIUM 35361812246 No Longer Active Andre Barreto MD Active PROZAC 40 MG CAPS 1 cap by mouth at bedtime FLUOXETINE HCL 73059220661 No Longer Active Andre Barreto MD Active HYDROCODONE-ACETAMINOPHEN 5-325 MG TABS 1 po q 6hr PRN Pain HYDROCODONE-ACETAMINOPHEN 31754045976 No Longer Active Andre Barreto MD Active TRAMADOL HCL 50 MG TABS 2 po q 6 hrs prn TRAMADOL HCL 89383400581 Active David King APRN Active AMBIEN 5 MG TABS 1 po a hs prn ZOLPIDEM TARTRATE 74344468863 Active Andre Barreto MD Active HYDROCODONE-ACETAMINOPHEN 5-325 MG TABS 1 po q 6hr PRN Pain HYDROCODONE-ACETAMINOPHEN 5-325 MG TABS 416045 HYDROCODONE-ACETAMINOPHEN Inactive PROZAC 40 MG CAPS 1 cap by mouth at bedtime PROZAC 40 MG CAPS 293495 FLUOXETINE HCL Inactive DICLOFENAC SODIUM 75 MG TBEC 1 tablet by mouth twice daily DICLOFENAC SODIUM 75 MG TBEC 402416 DICLOFENAC SODIUM Inactive SYMBICORT 160-4.5 MCG/ACT AERO 2 puffs inhaled bid SYMBICORT 160-4.5 MCG/ACT AERO BUDESONIDE-FORMOTEROL FUMARATE Inactive ZOFRAN 4 MG TABS 1 po q6hr PRN Nausea ZOFRAN 4 MG TABS 110917 ONDANSETRON HCL Inactive BETAMETHASONE DIPROPIONATE 0.05 % OINT Apply to affected areas BID for up to 2 weeks BETAMETHASONE DIPROPIONATE 0.05 % OINT 275887 BETAMETHASONE DIPROPIONATE Inactive BENICAR HCT 40-25 MG TABS Take one by mouth daily BENICAR HCT 40-25 MG TABS OLMESARTAN MEDOXOMIL-HCTZ Inactive CIPRO 500 MG TAB 1 tablet by mouth twice daily CIPRO 500 MG TAB 367147 CIPROFLOXACIN HCL Inactive Vital Signs Date Name Value Unit Range Description blood pressure, diastolic - 8462-4 71 mm[Hg] [...] ... - Chemistry sodium, serum 140 mmol/L 388-216 7069/06/28 carbon dioxide, venous blood 32.4 mmol/L 21.0-32.0 potassium, serum 4.0 mmol/L 3.5-5.2 chloride, serum 101 mmol/L 98-107 blood glucose 108 mg/dL 65-110 urea nitrogen, blood 20 mg/dL 7-18 creatinine, serum 0.98 mg/dL 0.55-1.30 alanine aminotransferase (SGPT), serum 44 U/L 12-78 aspartate aminotransferase (SGOT), serum 27 U/L 15-37 calcium, serum 9.4 mg/dL 8.5-10.1 bilirubin, serum, total 0.30 mg/dL 0.00-1.00 cholesterol, serum 264 mg/dL 343-442 5877/06/28 triglyceride, serum, fasting 146 mg/dL 30-200 HDL [...] ... - Lab microalbumin, urine 30 0-19 Encounters Code Encounter Date Provider Facility CPT-15517 Level 4 Est. Patient 15:24:17 CDT Andre Barreto MD [facility] CPT-16602 Level 3 Est. Patient 10:36:40 CDT Andre Barreto MD [facility] CPT-14994 Level 4 Est. Patient 11:27:43 CDT Andre Barreto MD [facility] CPT-34279 Level 3 Est. Patient 10:57:31 ORTHOPEDIC DESIGNER Andre Barreto MD [facility] CPT-28510 Level 3 Est. Patient 13:53:13 ORTHOPEDIC DESIGNER Andre Barreto MD [facility] CPT-39509 Level 3 Est. Patient 09:16:12 CDT Andre Barreto MD [facility] CPT-16732 Level 3 Est. Patient 14:50:35 CDT Andre Barreto MD [facility] Procedures Code Procedure Name Date Entry Date Standard Description CPT-24716 Bone Density - XRAY USE ONLY 09:30:16 CDT CPT-Cryo Cryotherapy 08:59:26 ORTHOPEDIC DESIGNER CPT-Cryo Cryotherapy 08:46:02 CDT CPT-06708 Chest 2V Frontal and Lat 14:02:13 ORTHOPEDIC DESIGNER
--- OUTSIDE RECORDS SUMMARY | 2018-03-16 19:31 | XMS REPORT | Clinical Summary ---
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, supplemental oxygen Osteopenia [...] ORAL TABLET 1 po qHS ATORVASTATIN CALCIUM 90779480681 Active Marcellekala Key RMA Active CLOPIDOGREL BISULFATE 75 MG ORAL TABLET 1 po qd CLOPIDOGREL BISULFATE 93829836703 Active Andre Barreto MD Active FUROSEMIDE 20 MG ORAL TABLET 1 po qd PRN Edema FUROSEMIDE 59284129132 Active Andre Barreto MD Active PROAIR HFA 108 (90 Base) MCG/ACT INHALATION AEROSOL SOLUTION 2 puffs q4hr PRN Shortness of air/Wheezing ALBUTEROL SULFATE 32005282205 Active Andre Barreto MD Active ATORVASTATIN CALCIUM 80 MG ORAL TABLET 1 po qHS ATORVASTATIN CALCIUM 77921053771 No Longer Active Andre Barreto MD Active AMBIEN 5 MG ORAL TABLET 1 po qHS PRN Insomnia ZOLPIDEM TARTRATE 28640358078 Active Andre Barreto MD Active DETROL 2 MG ORAL TABLET 1 po qd TOLTERODINE TARTRATE 96438034490 Active Andre Barreto MD Active NITROGLYCERIN 0.4 MG SUBLINGUAL TABLET SUBLINGUAL 1 SL q5min PRN Chest pain up to 3 doses NITROGLYCERIN 37371000396 Active Andre Barreto MD Active TOPROL XL 50 MG ORAL TABLET EXTENDED RELEASE 24 HOUR 1 po qd METOPROLOL SUCCINATE 51029798806 Active Andre Barreto MD Active SYMBICORT 160-4.5 MCG/ACT INHALATION AEROSOL 2 puff BID BUDESONIDE-FORMOTEROL FUMARATE 57888391691 Active Cayla Flanagan [facility] Active FLUOXETINE HCL 40 MG ORAL CAPSULE 1 po qd FLUOXETINE HCL 24069067939 Active Andre Barreto MD Active BENICAR HCT 40-25 MG ORAL TABLET Take one by mouth daily OLMESARTAN MEDOXOMIL-HCTZ 80990890909 No Longer Active Andre Barreto MD Active LOSARTAN POTASSIUM-HCTZ 100-25 MG ORAL TABLET 1 po qd LOSARTAN POTASSIUM-HCTZ 27506959464 Active Andre Barreto MD Active BETAMETHASONE DIPROPIONATE 0.05 % EXTERNAL OINTMENT Apply to affected areas BID for up to 2 weeks BETAMETHASONE DIPROPIONATE 41528209229 No Longer Active Andre Barreto MD Active ZOFRAN 4 MG ORAL TABLET 1 po q6hr PRN Nausea ONDANSETRON HCL 37617710840 No Longer Active Andre Barreto MD Active CIPRO 500 MG ORAL TABLET 1 tablet by mouth twice daily CIPROFLOXACIN HCL 62590965996 No Longer Active Andre Barreto MD Active SYMBICORT 160-4.5 MCG/ACT INHALATION AEROSOL 2 puffs inhaled bid BUDESONIDE-FORMOTEROL FUMARATE 69745788405 No Longer Active Andre Barreto MD Active DICLOFENAC SODIUM 75 MG ORAL TABLET DELAYED RELEASE 1 tablet by mouth twice daily DICLOFENAC SODIUM 88826087266 No Longer Active Andre Barreto MD Active PROZAC 40 MG ORAL CAPSULE 1 cap by mouth at bedtime FLUOXETINE HCL 46160212122 No Longer Active Andre Barreto MD Active HYDROCODONE-ACETAMINOPHEN 5-325 MG ORAL TABLET 1 po q 6hr PRN Pain HYDROCODONE-ACETAMINOPHEN 36306920408 No Longer Active Andre Barreto MD Active TRAMADOL HCL 50 MG ORAL TABLET 2 po q 6 hrs prn TRAMADOL HCL 05456421978 Active Andre Barreto MD Active HYDROCODONE-ACETAMINOPHEN 5-325 MG ORAL TABLET 1 po q 6hr PRN Pain HYDROCODONE-ACETAMINOPHEN 5-325 MG ORAL TABLET 219794 HYDROCODONE- ACETAMINOPHEN Inactive PROZAC 40 MG ORAL CAPSULE 1 cap by mouth at bedtime PROZAC 40 MG ORAL CAPSULE 166056 FLUOXETINE HCL Inactive DICLOFENAC SODIUM 75 MG ORAL TABLET DELAYED RELEASE 1 tablet by mouth twice daily DICLOFENAC SODIUM 75 MG ORAL TABLET DELAYED RELEASE 188744 DICLOFENAC SODIUM Inactive SYMBICORT 160-4.5 MCG/ACT INHALATION AEROSOL 2 puffs inhaled bid SYMBICORT 160-4.5 MCG/ACT INHALATION AEROSOL BUDESONIDE-FORMOTEROL FUMARATE Inactive ZOFRAN 4 MG ORAL TABLET 1 po q6hr PRN Nausea ZOFRAN 4 MG ORAL TABLET 888045 ONDANSETRON HCL Inactive BETAMETHASONE DIPROPIONATE 0.05 % EXTERNAL OINTMENT Apply to affected areas BID for up to 2 weeks BETAMETHASONE DIPROPIONATE 0.05 % EXTERNAL OINTMENT 458344 BETAMETHASONE DIPROPIONATE Inactive BENICAR HCT 40-25 MG ORAL TABLET Take one by mouth daily BENICAR HCT 40-25 MG ORAL TABLET 221313 OLMESARTAN MEDOXOMIL-HCTZ Inactive ATORVASTATIN CALCIUM 80 MG ORAL TABLET 1 po qHS ATORVASTATIN CALCIUM 80 MG ORAL TABLET 388952 ATORVASTATIN CALCIUM Inactive CIPRO 500 MG ORAL TABLET 1 tablet by mouth twice daily CIPRO 500 MG ORAL TABLET 595478 CIPROFLOXACIN HCL Inactive Advance Directives Directive Description [...] 6.2 % 4.3-6.0 cholesterol, serum 229 mg/dL 977-850 7629/07/24 triglyceride, serum, fasting 106 mg/dL 30-200 HDL cholesterol, serum 60 mg/dL 32-60 LDL cholesterol, serum 148 mg/dL 0-130 sodium, serum 139 mmol/L 686-131 1628/07/24 carbon dioxide, venous blood 34.8 mmol/L 21.0-32.0 [...] Panel - Chemistry cholesterol, serum 275 mg/dL 103-967 2068/11/07 triglyceride, serum, fasting 166 mg/dL 30-200 HDL cholesterol, serum 62 mg/dL 32-60 LDL cholesterol, serum 180 mg/dL 0-130 sodium, serum 141 mmol/L 969-898 9052/11/07 carbon dioxide, venous blood 26.3 mmol/L 21.0-32.0 [...] 0-19 Encounters Code Encounter Date Provider Facility CPT-23496 Level 4 Est. Patient 10:26:48 COMPLAINT CLERK Andre Barreto MD [facility] CPT-57702 Level 4 Est. Patient 09:45:06 CDT Andre Barreto MD [facility] CPT-94559 Level 4 Est. Patient 11:53:39 COMPLAINT CLERK Andre Barreto MD [facility] CPT-59869 Level 4 Est. Patient 14:21:31 CDT Andre Barreto MD [facility] CPT-42115 Level 4 Est. Patient 15:24:17 CDT Andre Barreto MD [facility] CPT-98417 Level 3 Est. Patient 10:36:40 CDT Andre Barreto MD [facility] CPT-07588 Level 4 Est. Patient 11:27:43 CDT Andre Barreto MD [facility] CPT-36888 Level 3 Est. Patient 10:57:31 COMPLAINT CLERK Andre Barreto MD [facility] CPT-45610 Level 3 Est. Patient 13:53:13 COMPLAINT CLERK Andre Barreto MD [facility] CPT-05762 Level 3 Est. Patient 09:16:12 CDT Andre Barreto MD [facility] CPT-69191 Level 3 Est. Patient 14:50:35 CDT Andre Barreto MD [facility] Procedures Code Procedure Name Date Entry Date Standard Description CPT-85112 First Vx - Ix admin for Medicare patients 13:56:44 COMPLAINT CLERK CPT-91065 Zostavax Subcutaneous Solution Reconstituted 00521 UNT/0.65ML 12/22 13:56:44 COMPLAINT CLERK CPT-G0009 Administration of Pneumococcal Vaccine 10:12:50 CDT CPT-49939 Pneumovax 23 Injection Injectable 25 MCG/0.5ML 10:12:50 CDT CPT-G0439 Subsequent Annual Wellness Exam 09:49:25 CDT CPT-27323 First Vx - Ix admin for Medicare patients 17:55:11 COMPLAINT CLERK CPT-93299 Fluzone High-Dose Intramuscular Suspension 17:55:11 COMPLAINT CLERK CPT-80839 Venipuncture Draw Fee 14:11:36 CDT CPT-51265 Lipid - LAB USE ONLY 14:11:36 CDT CPT-69132 CMP - LAB USE ONLY 14:11:36 CDT CPT-G0438 Initial Annual Wellness Exam 13:29:06 CDT CPT-G0009 Administration of Pneumococcal Vaccine 13:26:57 CDT CPT-86919 Prevnar 13 Intramuscular Suspension 13:26:56 CDT 08/19 CPT-12442 Bone Density - XRAY USE ONLY 09:30:16 CDT CPT-Cryo Cryotherapy 08:59:26 COMPLAINT CLERK CPT-Cryo Cryotherapy 08:46:02 CDT CPT-76802 Chest 2V Frontal and Lat 14:02:13 COMPLAINT CLERK
--- OUTSIDE RECORDS SUMMARY | 2018-03-16 19:32 | XMS REPORT | Clinical Summary ---
Author Author Admin, [employer] Organization [employer] Address Unknown Phone Unavailable Allergies, Adverse Reactions, Alerts Allergy Name Reaction Description Start Date Severity Status Provider SULFA Mild No Longer Active Jillina Frazell ICT PROGRAMMER PENICILLIN Mild No Longer Active Jillina Frazell ICT PROGRAMMER ZINC Mild No Longer Active Jillina Frazell ICT PROGRAMMER SULFA Critical No Longer Active Marcelle Yesi RMA PENICILLIN Critical No Longer Active Marcelle Yesi RMA ZINC Critical No Longer Active Marcelle Yesi RMA PENICILLIN UNK Inactive Red Funes MA ZINC UNK Inactive Red Funes MA SULFA UNK Inactive Red Funse MA Conditions or Problems Problem Name Problem [...] Coronary atherosclerosis of unspecified type of vessel, [place] or graft Obstructive sleep apnea 327.23 [...] Apply to affected area BID 05/18 MUPIROCIN 86230883374 No Longer Active Moira Price MA Active CLINDAMYCIN HCL 300 MG ORAL CAPSULE 1 po QID x 7 days CLINDAMYCIN HCL 75292839614 No Longer Active Jillina Frazell ICT PROGRAMMER Active BACTRIM DS 800-160 MG ORAL TABLET 1 tab by mouth twice daily 2017 TRIMETHOPRIM-SULFAMETHOXAZOLE 41193929098 No Longer Active Jillina Frazell ICT PROGRAMMER Active GUAIFENESIN DM 400-20 MG ORAL TABLET 1 pill by mouth twice daily, if needed for cough DEXTROMETHORPHAN-GUAIFENESIN 68206111086 Active Jillina Frazell ICT PROGRAMMER Active CEFDINIR 300 MG ORAL CAPSULE by mouth twice a day CEFDINIR 84993804510 No Longer Active Jillina Frazell ICT PROGRAMMER Active BENZONATATE 200 MG ORAL CAPSULE 1 three times a day as needed for cough 03/27 BENZONATATE 05987069090 No Longer Active Luna Prabhakar Active ZITHROMAX Z-NEVAEH 250 MG ORAL TABLET 2 today and then 1 daily for 4 days 03/27 AZITHROMYCIN 95668461991 No Longer Active Luna Prabhakar Active PREDNISONE 20 MG ORAL TABLET 2 daily for 3 days then 1 daily for 3 days 03/27 PREDNISONE 16548204275 No Longer Active Luna Prabhakar Active ATORVASTATIN CALCIUM 40 MG ORAL TABLET 1 po qHS ATORVASTATIN CALCIUM 54307252542 Active Marcelle VERA Active CLOPIDOGREL BISULFATE 75 MG ORAL TABLET 1 po qd CLOPIDOGREL BISULFATE 80222119641 Active Andre Barreto MD Active FUROSEMIDE 20 MG ORAL TABLET 1 po qd PRN Edema FUROSEMIDE 20739501488 Active Andre Barreto MD Active PROAIR HFA 108 (90 Base) MCG/ACT INHALATION AEROSOL SOLUTION 2 puffs q4hr PRN Shortness of air/Wheezing ALBUTEROL SULFATE 78653298411 Active Andre Barreto MD Active ATORVASTATIN CALCIUM 80 MG ORAL TABLET 1 po qHS ATORVASTATIN CALCIUM 15655547166 No Longer Active Andre Barreto MD Active AMBIEN 5 MG ORAL TABLET 1 po qHS PRN Insomnia ZOLPIDEM TARTRATE 23552494843 Active Andre Barreto MD Active DETROL 2 MG ORAL TABLET 1 po qd TOLTERODINE TARTRATE 28727709397 Active Andre Barreto MD Active NITROGLYCERIN 0.4 MG SUBLINGUAL TABLET SUBLINGUAL 1 SL q5min PRN Chest pain up to 3 doses NITROGLYCERIN 55764354909 Active Andre Barreto MD Active TOPROL XL 50 MG ORAL TABLET EXTENDED RELEASE 24 HOUR 1 po qd METOPROLOL SUCCINATE 38225047534 Active Andre Barreto MD Active SYMBICORT 160-4.5 MCG/ACT INHALATION AEROSOL 2 puff BID BUDESONIDE-FORMOTEROL FUMARATE 09384565901 Active Cayla VERA Active FLUOXETINE HCL 40 MG ORAL CAPSULE 1 po qd FLUOXETINE HCL 24777481769 Active Andre Barreto MD Active BENICAR HCT 40-25 MG ORAL TABLET Take one by mouth daily OLMESARTAN MEDOXOMIL-HCTZ 67044490532 No Longer Active Andre Barreto MD Active LOSARTAN POTASSIUM-HCTZ 100-25 MG ORAL TABLET 1 po qd LOSARTAN POTASSIUM-HCTZ 55332531059 Active Andre Barreto MD Active BETAMETHASONE DIPROPIONATE 0.05 % EXTERNAL OINTMENT Apply to affected areas BID for up to 2 weeks BETAMETHASONE DIPROPIONATE 83115493628 No Longer Active Andre Barreto MD Active ZOFRAN 4 MG ORAL TABLET 1 po q6hr PRN Nausea ONDANSETRON HCL 98871056166 No Longer Active Andre Barreto MD Active CIPRO 500 MG ORAL TABLET 1 tablet by mouth twice daily CIPROFLOXACIN HCL 84354529684 No Longer Active Adnre Barreto MD Active SYMBICORT 160-4.5 MCG/ACT INHALATION AEROSOL 2 puffs inhaled bid BUDESONIDE-FORMOTEROL FUMARATE 97590444731 No Longer Active Andre Barreto MD Active DICLOFENAC SODIUM 75 MG ORAL TABLET DELAYED RELEASE 1 tablet by mouth twice daily DICLOFENAC SODIUM 18156849991 No Longer Active Andre Barreto MD Active PROZAC 40 MG ORAL CAPSULE 1 cap by mouth at bedtime FLUOXETINE HCL 07661436266 No Longer Active Andre Barreto MD Active HYDROCODONE-ACETAMINOPHEN 5-325 MG ORAL TABLET 1 po q 6hr PRN Pain HYDROCODONE-ACETAMINOPHEN 40748516561 No Longer Active Andre Barreto MD Active TRAMADOL HCL 50 MG ORAL TABLET 2 po q 6 hrs prn TRAMADOL HCL 17672894900 Active Andre Barreto MD Active HYDROCODONE-ACETAMINOPHEN 5-325 MG ORAL TABLET 1 po q 6hr PRN Pain HYDROCODONE-ACETAMINOPHEN 5-325 MG ORAL TABLET 341819 HYDROCODONE- ACETAMINOPHEN Inactive PROZAC 40 MG ORAL CAPSULE 1 cap by mouth at bedtime PROZAC 40 MG ORAL CAPSULE 624387 FLUOXETINE HCL Inactive DICLOFENAC SODIUM 75 MG ORAL TABLET DELAYED RELEASE 1 tablet by mouth twice daily DICLOFENAC SODIUM 75 MG ORAL TABLET DELAYED RELEASE 795256 DICLOFENAC SODIUM Inactive SYMBICORT 160-4.5 MCG/ACT INHALATION AEROSOL 2 puffs inhaled bid SYMBICORT 160-4.5 MCG/ACT INHALATION AEROSOL BUDESONIDE-FORMOTEROL FUMARATE Inactive ZOFRAN 4 MG ORAL TABLET 1 po q6hr PRN Nausea ZOFRAN 4 MG ORAL TABLET 146161 ONDANSETRON HCL Inactive BETAMETHASONE DIPROPIONATE 0.05 % EXTERNAL OINTMENT Apply to affected areas BID for up to 2 weeks BETAMETHASONE DIPROPIONATE 0.05 % EXTERNAL OINTMENT 804409 BETAMETHASONE DIPROPIONATE Inactive BENICAR HCT 40-25 MG ORAL TABLET Take one by mouth daily BENICAR HCT 40-25 MG ORAL TABLET 533832 OLMESARTAN MEDOXOMIL-HCTZ Inactive ATORVASTATIN CALCIUM 80 MG ORAL TABLET 1 po qHS ATORVASTATIN CALCIUM 80 MG ORAL TABLET 088766 ATORVASTATIN CALCIUM Inactive PREDNISONE 20 MG ORAL TABLET 2 daily for 3 days then 1 daily for 3 days 03/27 PREDNISONE 20 MG ORAL TABLET 024379 PREDNISONE Inactive ZITHROMAX Z-NEVAEH 250 MG ORAL TABLET 2 today and then 1 daily for 4 days 03/27 ZITHROMAX Z-NEVAEH 250 MG ORAL TABLET 444124 AZITHROMYCIN Inactive BENZONATATE 200 MG ORAL CAPSULE 1 three times a day as needed for cough 03/27 BENZONATATE 200 MG ORAL CAPSULE 512463 BENZONATATE Inactive BACTRIM DS 800-160 MG ORAL TABLET 1 tab by mouth twice daily 2017 BACTRIM DS 800-160 MG ORAL TABLET 337438 TRIMETHOPRIM- SULFAMETHOXAZOLE Inactive BACTROBAN 2 % EXTERNAL OINTMENT Apply to affected area BID 05/18 BACTROBAN 2 % EXTERNAL OINTMENT 641098 MUPIROCIN Inactive CIPRO 500 MG ORAL TABLET 1 tablet by mouth twice daily CIPRO 500 MG ORAL TABLET 237428 CIPROFLOXACIN HCL Inactive CEFDINIR 300 MG ORAL CAPSULE by mouth twice a day CEFDINIR 300 MG ORAL CAPSULE 098937 CEFDINIR Inactive CLINDAMYCIN HCL 300 MG ORAL CAPSULE 1 po QID x 7 days CLINDAMYCIN HCL 300 MG ORAL CAPSULE 251912 CLINDAMYCIN HCL Inactive Advance Directives Directive Description [...] 6.2 % 4.3-6.0 cholesterol, serum 229 mg/dL 939-828 9258/07/24 triglyceride, serum, fasting 106 mg/dL 30-200 HDL cholesterol, serum 60 mg/dL 32-60 LDL cholesterol, serum 148 mg/dL 0-130 sodium, serum 139 mmol/L 081-167 0390/07/24 carbon dioxide, venous blood 34.8 mmol/L 21.0-32.0 [...] Panel - Chemistry cholesterol, serum 275 mg/dL 656-283 3654/11/07 triglyceride, serum, fasting 166 mg/dL 30-200 HDL cholesterol, serum 62 mg/dL 32-60 LDL cholesterol, serum 180 mg/dL 0-130 sodium, serum 141 mmol/L 077-900 4794/11/07 carbon dioxide, venous blood 26.3 mmol/L 21.0-32.0 [...] 0-19 Encounters Code Encounter Date Provider Facility CPT-88447 Level 3 Est. Patient 14:29:01 CDT Esa Jackson MD [facility] CPT-76842 Level 3 Est. Patient 14:06:16 CDT Andre Barreto MD [facility] CPT-68362 Level 3 Est. Patient 09:16:36 CDT David King [facility]-75963 Level 3 Est. Patient 09:24:[address] JUDGE David King [facility] CPT-77881 Level 3 Est. Patient 13:01:[address] JUDGE Solitario Howe MD [facility]-82247 Level 4 Est. Patient 10:26:[address] JUDGE Andre Barreto MD [facility] CPT-61003 Level 4 Est. Patient 09:45:06 CDT Andre Barreto MD [facility] CPT-54820 Level 4 Est. Patient 11:53:[address] JUDGE Andre Barreto MD [facility] CPT-49351 Level 4 Est. Patient 14:21:31 CDT Andre Barreto MD [facility] CPT-17377 Level 4 Est. Patient 15:24:17 CDT Andre Barreto MD [facility] CPT-53904 Level 3 Est. Patient 10:36:40 CDT Andre Barreto MD [facility] CPT-31486 Level 4 Est. Patient 11:27:43 CDT Andre Barreto MD [facility] CPT-96198 Level 3 Est. Patient 10:57:[address] JUDGE Andre Barreto MD [facility] CPT-68058 Level 3 Est. Patient 13:53:[address] JUDGE Andre Barreto MD [facility] CPT-25964 Level 3 Est. Patient 09:16:12 CDT Andre Barreto MD [facility] CPT-09172 Level 3 Est. Patient 14:50:35 CDT Andre Barreto MD [facility] Procedures Code Procedure Name Date Entry Date Standard Description CPT-37309 Postop F/U Visit 14:31:27 CDT CPT-62697 Postop F/U Visit 14:30:20 CDT CPT-95872 Sono pelvis coley bladder only - XRAY USE ONLY 15:07:39 CDT CPT-37459 First Vx - Ix admin for Medicare patients 13:56:[address] JUDGE CPT-07606 Zostavax Subcutaneous Solution Reconstituted 76994 UNT/0.65ML 12/22 13:56:[address] JUDGE CPT-G0009 Administration of Pneumococcal Vaccine 10:12:50 CDT CPT-38493 Pneumovax 23 Injection Injectable 25 MCG/0.5ML 10:12:50 CDT CPT-G0439 Subsequent Annual Wellness Exam 09:49:25 CDT CPT-22946 First Vx - Ix admin for Medicare patients 17:55:[address] JUDGE CPT-30038 Fluzone High-Dose Intramuscular Suspension 17:55:[address] JUDGE CPT-43991 Venipuncture Draw Fee 14:11:36 CDT CPT-31443 Lipid - LAB USE ONLY 14:11:36 CDT CPT-17257 CMP - LAB USE ONLY 14:11:36 CDT CPT-G0438 Initial Annual Wellness Exam 13:29:06 CDT CPT-G0009 Administration of Pneumococcal Vaccine 13:26:57 CDT CPT-21382 Prevnar 13 Intramuscular Suspension 13:26:56 CDT 08/19 CPT-44457 Bone Density - XRAY USE ONLY 09:30:16 CDT CPT-Cryo Cryotherapy 08:59:[address] JUDGE CPT-Cryo Cryotherapy 08:46:02 CDT CPT-54498 Chest 2V Frontal and Lat 14:02:[address] JUDGE
--- OUTSIDE RECORDS SUMMARY | 2018-03-16 19:33 | XMS REPORT | Clinical Summary ---
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 dependence on machines, supplemental oxygen Osteopenia [...] ORAL TABS 1 po qd TOLTERODINE TARTRATE 76092048860 Active Andre Barreto MD Active NITROGLYCERIN 0.4 MG SL SUBL 1 SL q5min PRN Chest pain up to 3 doses NITROGLYCERIN 28701129030 Active Andre Barreto MD Active TOPROL XL 50 MG ORAL [id number] 1 po qd METOPROLOL SUCCINATE 36682527669 Active Andre Barreto MD Active PLAVIX 75 MG TABS 1 po qd CLOPIDOGREL BISULFATE 30560514445 Active Andre Barreto MD Active LASIX 20 MG TAB 1 po qd PRN Edema FUROSEMIDE 10180812484 Bar Barreto MD Active ATORVASTATIN CALCIUM 80 MG TABS 1 po qHS ATORVASTATIN CALCIUM 54634796972 Active Andre Barreto MD Active SYMBICORT 160-4.5 MCG/ACT AERO 2 puff BID BUDESONIDE- FORMOTEROL FUMARATE 98799621246 Active Andre Barreto MD Active PROAIR HFA 108 (90 BASE) MCG/ACT AERS 2 puffs four times a day as needed 2015 ALBUTEROL SULFATE 55261826412 Active Andre Barreto MD Active FLUOXETINE HCL 40 MG ORAL CAPS 1 po qd FLUOXETINE HCL 09060246863 Active Andre Barreto MD Active BENICAR HCT 40-25 MG TABS Take one by mouth daily OLMESARTAN MEDOXOMIL-HCTZ 65141964279 No Longer Active Andre Barreto MD Active LOSARTAN POTASSIUM-HCTZ 100-25 MG TABS 1 po qd LOSARTAN POTASSIUM-HCTZ 98140635075 Active Andre Barreto MD Active BETAMETHASONE DIPROPIONATE 0.05 % OINT Apply to affected areas BID for up to 2 weeks BETAMETHASONE DIPROPIONATE 78813127701 No Longer Active Andre Barreto MD Active ZOFRAN 4 MG TABS 1 po q6hr PRN Nausea ONDANSETRON HCL 41724240491 No Longer Active Andre Barreto MD Active CIPRO 500 MG TAB 1 tablet by mouth twice daily CIPROFLOXACIN HCL 53537949765 No Longer Active Andre Barreto MD Active SYMBICORT 160-4.5 MCG/ACT AERO 2 puffs inhaled bid BUDESONIDE- FORMOTEROL FUMARATE 90800164501 No Longer Active Andre Barreto MD Active DICLOFENAC SODIUM 75 MG TBEC 1 tablet by mouth twice daily DICLOFENAC SODIUM 35288716458 No Longer Active Andre Barreto MD Active PROZAC 40 MG CAPS 1 cap by mouth at bedtime FLUOXETINE HCL 27332587651 No Longer Active Andre Barreto MD Active HYDROCODONE-ACETAMINOPHEN 5-325 MG TABS 1 po q 6hr PRN Pain HYDROCODONE-ACETAMINOPHEN 40273978789 No Longer Active Andre Barreto MD Active TRAMADOL HCL 50 MG TABS 2 po q 6 hrs prn TRAMADOL HCL 61383949880 Active Andre Barreto MD Active AMBIEN 5 MG TABS 1 po a hs prn ZOLPIDEM TARTRATE 47479627206 Active Andre Barreto MD Active HYDROCODONE-ACETAMINOPHEN 5-325 MG TABS 1 po q 6hr PRN Pain HYDROCODONE-ACETAMINOPHEN 5-325 MG TABS 084307 HYDROCODONE-ACETAMINOPHEN Inactive PROZAC 40 MG CAPS 1 cap by mouth at bedtime PROZAC 40 MG CAPS 061415 FLUOXETINE HCL Inactive DICLOFENAC SODIUM 75 MG TBEC 1 tablet by mouth twice daily DICLOFENAC SODIUM 75 MG TBEC 963843 DICLOFENAC SODIUM Inactive SYMBICORT 160-4.5 MCG/ACT AERO 2 puffs inhaled bid SYMBICORT 160-4.5 MCG/ACT AERO BUDESONIDE-FORMOTEROL FUMARATE Inactive ZOFRAN 4 MG TABS 1 po q6hr PRN Nausea ZOFRAN 4 MG TABS 182675 ONDANSETRON HCL Inactive BETAMETHASONE DIPROPIONATE 0.05 % OINT Apply to affected areas BID for up to 2 weeks BETAMETHASONE DIPROPIONATE 0.05 % OINT 342099 BETAMETHASONE DIPROPIONATE Inactive BENICAR HCT 40-25 MG TABS Take one by mouth daily BENICAR HCT 40-25 MG TABS 399687 OLMESARTAN MEDOXOMIL-HCTZ Inactive CIPRO 500 MG TAB 1 tablet by mouth twice daily CIPRO 500 MG TAB 453863 CIPROFLOXACIN HCL Inactive Advance Directives Directive Description [...] ... - Chemistry sodium, serum 140 mmol/L 336-477 6041/06/28 carbon dioxide, venous blood 32.4 mmol/L 21.0-32.0 potassium, serum 4.0 mmol/L 3.5-5.2 chloride, serum 101 mmol/L 98-107 blood glucose 108 mg/dL 65-110 urea nitrogen, blood 20 mg/dL 7-18 creatinine, serum 0.98 mg/dL 0.55-1.30 alanine aminotransferase (SGPT), serum 44 U/L 12-78 aspartate aminotransferase (SGOT), serum 27 U/L 15-37 calcium, serum 9.4 mg/dL 8.5-10.1 bilirubin, serum, total 0.30 mg/dL 0.00-1.00 cholesterol, serum 264 mg/dL 416-419 6107/06/28 triglyceride, serum, fasting 146 mg/dL 30-200 HDL [...] Panel - Chemistry sodium, serum 143 mmol/L 478-968 0112/09/27 carbon dioxide, venous blood 30.1 mmol/L 21.0-32.0 potassium, serum 3.9 mmol/L 3.5-5.2 chloride, serum 107 mmol/L 98-107 blood glucose 114 mg/dL 65-110 urea nitrogen, blood 14 mg/dL 7-18 creatinine, serum 0.79 mg/dL 0.55-1.30 alanine aminotransferase (SGPT), serum 44 U/L 12-78 aspartate aminotransferase (SGOT), serum 25 U/L 15-37 calcium, serum 8.5 mg/dL 8.5-10.1 bilirubin, serum, total 0.30 mg/dL 0.00-1.00 cholesterol, serum 152 mg/dL 104-340 1017/09/27 triglyceride, serum, fasting 85 mg/dL 30-200 HDL cholesterol, serum 59 mg/dL 32-96 LDL cholesterol, serum 76 mg/dL 0-130 Encounters Code Encounter Date Provider Facility CPT-27014 Level 4 Est. Patient 11:53:39 COMPUTER INFORMATION SYSTEMS INSTRUCTOR Andre Barreto MD [facility] CPT-28531 Level 4 Est. Patient 14:21:31 CDT Andre Barreto MD [facility] CPT-06096 Level 4 Est. Patient 15:24:17 CDT Andre Barreto MD [facility] CPT-49259 Level 3 Est. Patient 10:36:40 CDT Andre Barreto MD [facility] CPT-55632 Level 4 Est. Patient 11:27:43 CDT Andre Barreto MD [facility] CPT-71072 Level 3 Est. Patient 10:57:31 COMPUTER INFORMATION SYSTEMS INSTRUCTOR Andre Barreto MD [facility] CPT-80026 Level 3 Est. Patient 13:53:13 COMPUTER INFORMATION SYSTEMS INSTRUCTOR Andre Barreto MD [facility] CPT-28119 Level 3 Est. Patient 09:16:12 CDT Andre Barreto MD [facility] CPT-69382 Level 3 Est. Patient 14:50:35 CDT Andre Barreto MD [facility] Procedures Code Procedure Name Date Entry Date Standard Description CPT-08979 First Vx - Ix admin for Medicare patients 17:55:11 COMPUTER INFORMATION SYSTEMS INSTRUCTOR CPT-73119 Fluzone High-Dose Intramuscular Suspension 17:55:11 COMPUTER INFORMATION SYSTEMS INSTRUCTOR CPT-64440 Venipuncture Draw Fee 14:11:36 CDT CPT-02569 Lipid - LAB USE ONLY 14:11:36 CDT CPT-28349 CMP - LAB USE ONLY 14:11:36 CDT CPT-G0438 Initial Annual Wellness Exam 13:29:06 CDT CPT-G0009 Administration of Pneumococcal Vaccine 13:26:57 CDT CPT-86915 Prevnar 13 Intramuscular Suspension 13:26:56 CDT 08/19 CPT-10565 Bone Density - XRAY USE ONLY 09:30:16 CDT CPT-Cryo Cryotherapy 08:59:26 COMPUTER INFORMATION SYSTEMS INSTRUCTOR CPT-Cryo Cryotherapy 08:46:02 CDT CPT-49281 Chest 2V Frontal and Lat 14:02:13 COMPUTER INFORMATION SYSTEMS INSTRUCTOR
--- OUTSIDE RECORDS SUMMARY | 2018-03-16 19:33 | XMS REPORT | Clinical Summary ---
Author Author Admin, EDUARDO Organization [employer] Address Unknown Phone Unavailable Allergies, Adverse Reactions, [...] of unspecified type of vessel, [place] or graft Obstructive sleep apnea 327.23 Active [...] Patient Instruction TOPROL XL 50 MG ORAL [id number] 1 po qd METOPROLOL SUCCINATE 60602879391 Active Andre Barreto MD Active PLAVIX 75 MG TABS 1 po qd CLOPIDOGREL BISULFATE 48635165440 Active Andre Barreto MD Active LASIX 20 MG TAB 1 po qd PRN Edema FUROSEMIDE 45809500057 Active Andre Barreto MD Active ATORVASTATIN CALCIUM 80 MG TABS 1 po qHS ATORVASTATIN CALCIUM 75276650221 Active Andre Barreto MD Active SYMBICORT 160-4.5 MCG/ACT AERO 2 puff BID BUDESONIDE- FORMOTEROL FUMARATE 57778314565 Active Andre Barreto MD Active PROAIR HFA 108 (90 BASE) MCG/ACT AERS 2 puffs four times a day as needed 2015 ALBUTEROL SULFATE 55895006937 Active Andre Barreto MD Active FLUOXETINE HCL 40 MG ORAL CAPS 1 po qd FLUOXETINE HCL 42507405147 Active Andre Barreto MD Active DETROL 2 MG ORAL TABS one tab daily TOLTERODINE TARTRATE 96781327434 Active Andre Barreto MD Active BENICAR HCT 40-25 MG TABS Take one by mouth daily OLMESARTAN MEDOXOMIL-HCTZ 55226837677 No Longer Active Andre Barreto MD Active LOSARTAN POTASSIUM-HCTZ 100-25 MG TABS 1 po qd LOSARTAN POTASSIUM-HCTZ 15793513928 Active Andre Barreto MD Active BETAMETHASONE DIPROPIONATE 0.05 % OINT Apply to affected areas BID for up to 2 weeks BETAMETHASONE DIPROPIONATE 88103091644 No Longer Active Andre Barreto MD Active ZOFRAN 4 MG TABS 1 po q6hr PRN Nausea ONDANSETRON HCL 76318412023 No Longer Active Andre Barreto MD Active CIPRO 500 MG TAB 1 tablet by mouth twice daily CIPROFLOXACIN HCL 92367731754 No Longer Active Andre Barreto MD Active SYMBICORT 160-4.5 MCG/ACT AERO 2 puffs inhaled bid BUDESONIDE- FORMOTEROL FUMARATE 93987625729 No Longer Active Andre Barreto MD Active NITROSTAT 0.4 MG SL TAB disolve 1 under tongue repeat if needed NITROGLYCERIN 02760334558 Active Andre Barreto MD Active DICLOFENAC SODIUM 75 MG TBEC 1 tablet by mouth twice daily DICLOFENAC SODIUM 75053739550 No Longer Active Andre Barreto MD Active PROZAC 40 MG CAPS 1 cap by mouth at bedtime FLUOXETINE HCL 86752266738 No Longer Active Andre Barreto MD Active HYDROCODONE-ACETAMINOPHEN 5-325 MG TABS 1 po q 6hr PRN Pain HYDROCODONE-ACETAMINOPHEN 35563006799 No Longer Active Andre Barreto MD Active TRAMADOL HCL 50 MG TABS 2 po q 6 hrs prn TRAMADOL HCL 16260180804 Active Andre Barreto MD Active AMBIEN 5 MG TABS 1 po a hs prn ZOLPIDEM TARTRATE 53315447918 Active Andre Barreto MD Active HYDROCODONE-ACETAMINOPHEN 5-325 MG TABS 1 po q 6hr PRN Pain HYDROCODONE-ACETAMINOPHEN 5-325 MG TABS 608494 HYDROCODONE-ACETAMINOPHEN Inactive PROZAC 40 MG CAPS 1 cap by mouth at bedtime PROZAC 40 MG CAPS 727534 FLUOXETINE HCL Inactive DICLOFENAC SODIUM 75 MG TBEC 1 tablet by mouth twice daily DICLOFENAC SODIUM 75 MG TBEC 970180 DICLOFENAC SODIUM Inactive SYMBICORT 160-4.5 MCG/ACT AERO 2 puffs inhaled bid SYMBICORT 160-4.5 MCG/ACT AERO BUDESONIDE-FORMOTEROL FUMARATE Inactive ZOFRAN 4 MG TABS 1 po q6hr PRN Nausea ZOFRAN 4 MG TABS 657143 ONDANSETRON HCL Inactive BETAMETHASONE DIPROPIONATE 0.05 % OINT Apply to affected areas BID for up to 2 weeks BETAMETHASONE DIPROPIONATE 0.05 % OINT 226820 BETAMETHASONE DIPROPIONATE Inactive BENICAR HCT 40-25 MG TABS Take one by mouth daily BENICAR HCT 40-25 MG TABS OLMESARTAN MEDOXOMIL-HCTZ Inactive CIPRO 500 MG TAB 1 tablet by mouth twice daily CIPRO 500 MG TAB 546738 CIPROFLOXACIN HCL Inactive Advance Directives Directive Description [...] ... - Chemistry sodium, serum 140 mmol/L 636-455 4629/06/28 carbon dioxide, venous blood 32.4 mmol/L 21.0-32.0 potassium, serum 4.0 mmol/L 3.5-5.2 chloride, serum 101 mmol/L 98-107 blood glucose 108 mg/dL 65-110 urea nitrogen, blood 20 mg/dL 7-18 creatinine, serum 0.98 mg/dL 0.55-1.30 alanine aminotransferase (SGPT), serum 44 U/L 12-78 aspartate aminotransferase (SGOT), serum 27 U/L 15-37 calcium, serum 9.4 mg/dL 8.5-10.1 bilirubin, serum, total 0.30 mg/dL 0.00-1.00 cholesterol, serum 264 mg/dL 108-554 6850/06/28 triglyceride, serum, fasting 146 mg/dL 30-200 HDL [...] Panel - Chemistry sodium, serum 143 mmol/L 563-354 2246/09/27 carbon dioxide, venous blood 30.1 mmol/L 21.0-32.0 potassium, serum 3.9 mmol/L 3.5-5.2 chloride, serum 107 mmol/L 98-107 blood glucose 114 mg/dL 65-110 urea nitrogen, blood 14 mg/dL 7-18 creatinine, serum 0.79 mg/dL 0.55-1.30 alanine aminotransferase (SGPT), serum 44 U/L 12-78 aspartate aminotransferase (SGOT), serum 25 U/L 15-37 calcium, serum 8.5 mg/dL 8.5-10.1 bilirubin, serum, total 0.30 mg/dL 0.00-1.00 cholesterol, serum 152 mg/dL 727-772 3140/09/27 triglyceride, serum, fasting 85 mg/dL 30-200 HDL cholesterol, serum 59 mg/dL 32-96 LDL cholesterol, serum 76 mg/dL 0-130 Encounters Code Encounter Date Provider Facility CPT-49806 Level 4 Est. Patient 14:21:31 CDT Andre Barreto MD [facility] CPT-92438 Level 4 Est. Patient 15:24:17 CDT Andre Barreto MD [facility] CPT-24949 Level 3 Est. Patient 10:36:40 CDT Andre Barreto MD [facility] CPT-84095 Level 4 Est. Patient 11:27:43 CDT Andre Barreto MD [facility] CPT-42848 Level 3 Est. Patient 10:57:31 SALES VICE PRESIDENT Andre Barreto MD [facility] CPT-55591 Level 3 Est. Patient 13:53:13 SALES VICE PRESIDENT Andre Barreto MD [facility] CPT-42502 Level 3 Est. Patient 09:16:12 CDT Andre Barreto MD [facility] CPT-35793 Level 3 Est. Patient 14:50:35 CDT Andre Barreto MD [facility] Procedures Code Procedure Name Date Entry Date Standard Description CPT-67755 Venipuncture Draw Fee 14:11:36 CDT CPT-23777 Lipid - LAB USE ONLY 14:11:36 CDT CPT-97621 CMP - LAB USE ONLY 14:11:36 CDT CPT-G0438 Initial Annual Wellness Exam 13:29:06 CDT CPT-G0009 Administration of Pneumococcal Vaccine 13:26:57 CDT CPT-64632 Prevnar 13 Intramuscular Suspension 13:26:56 CDT 08/19 CPT-03140 Bone Density - XRAY USE ONLY 09:30:16 CDT CPT-Cryo Cryotherapy 08:59:26 SALES VICE PRESIDENT CPT-Cryo Cryotherapy 08:46:02 CDT CPT-24765 Chest 2V Frontal and Lat 14:02:13 SALES VICE PRESIDENT
--- OUTSIDE RECORDS SUMMARY | 2018-03-16 19:33 | XMS REPORT | Clinical Summary ---
Author Author Admin, E Organization [facility] Address Unknown Phone Unavailable Allergies, Adverse [...] Coronary atherosclerosis of unspecified type of vessel, [place] or graft Obstructive sleep apnea 327.23 Active [...] Patient Instruction TOPROL XL 50 MG ORAL [id number] 1 po qd METOPROLOL SUCCINATE 84780046236 Active Andre Barreto MD Active PLAVIX 75 MG TABS 1 po qd CLOPIDOGREL BISULFATE 76006635564 Active Andre Barreto MD Active LASIX 20 MG TAB 1 po qd PRN Edema FUROSEMIDE 55550210746 Active Andre Barreto MD Active ATORVASTATIN CALCIUM 80 MG TABS 1 po qHS ATORVASTATIN CALCIUM 84380591832 Active Andre Barreto MD Active SYMBICORT 160-4.5 MCG/ACT AERO 2 puff BID BUDESONIDE- FORMOTEROL FUMARATE 52013547216 Active Andre Barreto MD Active PROAIR HFA 108 (90 BASE) MCG/ACT AERS 2 puffs four times a day as needed 2015 ALBUTEROL SULFATE 33252659643 Active Andre Barreto MD Active FLUOXETINE HCL 40 MG ORAL CAPS 1 po qd FLUOXETINE HCL 58424332530 Active Andre Barreto MD Active DETROL 2 MG ORAL TABS one tab daily TOLTERODINE TARTRATE 00693909081 Active Andre Barreto MD Active BENICAR HCT 40-25 MG TABS Take one by mouth daily OLMESARTAN MEDOXOMIL-HCTZ 66106258638 No Longer Active Andre Barreto MD Active LOSARTAN POTASSIUM-HCTZ 100-25 MG TABS 1 po qd LOSARTAN POTASSIUM-HCTZ 92096343438 Active Andre Barreto MD Active BETAMETHASONE DIPROPIONATE 0.05 % OINT Apply to affected areas BID for up to 2 weeks BETAMETHASONE DIPROPIONATE 16072751615 No Longer Active Andre Barreto MD Active ZOFRAN 4 MG TABS 1 po q6hr PRN Nausea ONDANSETRON HCL 09242992487 No Longer Active Andre Barreto MD Active CIPRO 500 MG TAB 1 tablet by mouth twice daily CIPROFLOXACIN HCL 89411163697 No Longer Active Andre Barreto MD Active SYMBICORT 160-4.5 MCG/ACT AERO 2 puffs inhaled bid BUDESONIDE- FORMOTEROL FUMARATE 02491141694 No Longer Active Andre Barreto MD Active NITROSTAT 0.4 MG SL TAB disolve 1 under tongue repeat if needed NITROGLYCERIN 79959476157 Active Andre Barreto MD Active DICLOFENAC SODIUM 75 MG TBEC 1 tablet by mouth twice daily DICLOFENAC SODIUM 18202494065 No Longer Active Andre Barreto MD Active PROZAC 40 MG CAPS 1 cap by mouth at bedtime FLUOXETINE HCL 40233347079 No Longer Active Andre Barreto MD Active HYDROCODONE-ACETAMINOPHEN 5-325 MG TABS 1 po q 6hr PRN Pain HYDROCODONE-ACETAMINOPHEN 24582040157 No Longer Active Andre Barreto MD Active TRAMADOL HCL 50 MG TABS 2 po q 6 hrs prn TRAMADOL HCL 92026819982 Active Andre Barreto MD Active AMBIEN 5 MG TABS 1 po a hs prn ZOLPIDEM TARTRATE 56193659258 Active Andre Barreto MD Active HYDROCODONE-ACETAMINOPHEN 5-325 MG TABS 1 po q 6hr PRN Pain HYDROCODONE-ACETAMINOPHEN 5-325 MG TABS 422062 HYDROCODONE-ACETAMINOPHEN Inactive PROZAC 40 MG CAPS 1 cap by mouth at bedtime PROZAC 40 MG CAPS 701090 FLUOXETINE HCL Inactive DICLOFENAC SODIUM 75 MG TBEC 1 tablet by mouth twice daily DICLOFENAC SODIUM 75 MG TBEC 714089 DICLOFENAC SODIUM Inactive SYMBICORT 160-4.5 MCG/ACT AERO 2 puffs inhaled bid SYMBICORT 160-4.5 MCG/ACT AERO BUDESONIDE-FORMOTEROL FUMARATE Inactive ZOFRAN 4 MG TABS 1 po q6hr PRN Nausea ZOFRAN 4 MG TABS 901135 ONDANSETRON HCL Inactive BETAMETHASONE DIPROPIONATE 0.05 % OINT Apply to affected areas BID for up to 2 weeks BETAMETHASONE DIPROPIONATE 0.05 % OINT 063273 BETAMETHASONE DIPROPIONATE Inactive BENICAR HCT 40-25 MG TABS Take one by mouth daily BENICAR HCT 40-25 MG TABS 814384 OLMESARTAN MEDOXOMIL-HCTZ Inactive CIPRO 500 MG TAB 1 tablet by mouth twice daily CIPRO 500 MG TAB 943198 CIPROFLOXACIN HCL Inactive Advance Directives Directive Description [...] ... - Chemistry sodium, serum 140 mmol/L 658-346 3300/06/28 carbon dioxide, venous blood 32.4 mmol/L 21.0-32.0 potassium, serum 4.0 mmol/L 3.5-5.2 chloride, serum 101 mmol/L 98-107 blood glucose 108 mg/dL 65-110 urea nitrogen, blood 20 mg/dL 7-18 creatinine, serum 0.98 mg/dL 0.55-1.30 alanine aminotransferase (SGPT), serum 44 U/L 12-78 aspartate aminotransferase (SGOT), serum 27 U/L 15-37 calcium, serum 9.4 mg/dL 8.5-10.1 bilirubin, serum, total 0.30 mg/dL 0.00-1.00 cholesterol, serum 264 mg/dL 142-354 5437/06/28 triglyceride, serum, fasting 146 mg/dL 30-200 HDL [...] Panel - Chemistry sodium, serum 143 mmol/L 157-022 9111/09/27 carbon dioxide, venous blood 30.1 mmol/L 21.0-32.0 potassium, serum 3.9 mmol/L 3.5-5.2 chloride, serum 107 mmol/L 98-107 blood glucose 114 mg/dL 65-110 urea nitrogen, blood 14 mg/dL 7-18 creatinine, serum 0.79 mg/dL 0.55-1.30 alanine aminotransferase (SGPT), serum 44 U/L 12-78 aspartate aminotransferase (SGOT), serum 25 U/L 15-37 calcium, serum 8.5 mg/dL 8.5-10.1 bilirubin, serum, total 0.30 mg/dL 0.00-1.00 cholesterol, serum 152 mg/dL 291-839 4638/09/27 triglyceride, serum, fasting 85 mg/dL 30-200 HDL cholesterol, serum 59 mg/dL 32-96 LDL cholesterol, serum 76 mg/dL 0-130 Encounters Code Encounter Date Provider Facility CPT-77117 Level 4 Est. Patient 14:21:31 CDT Andre Barreto MD [facility] CPT-45339 Level 4 Est. Patient 15:24:17 CDT Andre Barreto MD [facility] CPT-43538 Level 3 Est. Patient 10:36:40 CDT Andre Barreto MD [facility] CPT-18529 Level 4 Est. Patient 11:27:43 CDT Andre Barreto MD [facility] CPT-89009 Level 3 Est. Patient 10:57:31 WARHEAD MAINTENANCE SPECIALIST Andre Barreto MD [facility] CPT-78706 Level 3 Est. Patient 13:53:13 WARHEAD MAINTENANCE SPECIALIST Andre Barreto MD [facility] CPT-13126 Level 3 Est. Patient 09:16:12 CDT Andre Barreto MD [facility] CPT-39336 Level 3 Est. Patient 14:50:35 CDT Andre Barreto MD [facility] Procedures Code Procedure Name Date Entry Date Standard Description CPT-11087 Venipuncture Draw Fee 14:11:36 CDT CPT-01507 Lipid - LAB USE ONLY 14:11:36 CDT CPT-70267 CMP - LAB USE ONLY 14:11:36 CDT CPT-G0438 Initial Annual Wellness Exam 13:29:06 CDT CPT-G0009 Administration of Pneumococcal Vaccine 13:26:57 CDT CPT-42724 Prevnar 13 Intramuscular Suspension 13:26:56 CDT 08/19 CPT-22417 Bone Density - XRAY USE ONLY 09:30:16 CDT CPT-Cryo Cryotherapy 08:59:26 WARHEAD MAINTENANCE SPECIALIST CPT-Cryo Cryotherapy 08:46:02 CDT CPT-64679 Chest 2V Frontal and Lat 14:02:13 WARHEAD MAINTENANCE SPECIALIST
--- OUTSIDE RECORDS SUMMARY | 2018-03-16 19:34 | XMS REPORT | Clinical Summary ---
Author Author Admin, EDUARDO Organization [employer] Address Unknown Phone Unavailable Allergies, Adverse Reactions, Alerts Allergy Name Reaction Description Start Date Severity Status Provider SULFA Mild No Longer Active Jillina Frazell [employer] PENICILLIN Mild No Longer Active Jillina Frazell [employer] ZINC Mild No Longer Active Jillina Frazell [employer] SULFA Critical No Longer Active Marcelle Yesi [...] Coronary atherosclerosis of unspecified type of vessel, [place] or graft Obstructive sleep apnea [...] 1 po q8hr PRN Dizziness MECLIZINE HCL 47699733379 No Longer Active Andre Barreto MD Active MELOXICAM 15 MG ORAL TABLET 1 po qd PRN Pain MELOXICAM 41493536049 Active Andre Barreto MD Active ATORVASTATIN CALCIUM 40 MG ORAL TABLET 1 po qHS ATORVASTATIN CALCIUM 12428309478 No Longer Active Andre Barreto MD Active ATORVASTATIN CALCIUM 20 MG ORAL TABLET 1 po MWF ATORVASTATIN CALCIUM 98832136258 Active Andre Barreto MD Active GUAIFENESIN DM 400-20 MG ORAL TABLET 1 pill by mouth twice daily, if needed for cough DEXTROMETHORPHAN-GUAIFENESIN 51470668592 No Longer Active Andre Barreto MD Active BACTROBAN 2 % EXTERNAL OINTMENT Apply to affected area BID 05/18 MUPIROCIN 95588983757 No Longer Active Moira Price MA Active CLINDAMYCIN HCL 300 MG ORAL CAPSULE 1 po QID x 7 days CLINDAMYCIN HCL 23619588464 No Longer Active Jillina Frazell [employer] Active BACTRIM DS 800-160 MG ORAL TABLET 1 tab by mouth twice daily 2017 TRIMETHOPRIM-SULFAMETHOXAZOLE 16394091332 No Longer Active Jillina Frazell [employer] Active CEFDINIR 300 MG ORAL CAPSULE by mouth twice a day CEFDINIR 11886823988 No Longer Active Jillina Frazell [employer] Active BENZONATATE 200 MG ORAL CAPSULE 1 three times a day as needed for cough 03/27 BENZONATATE 74764205130 No Longer Active Luna Prabhakar Active ZITHROMAX Z-NEVAEH 250 MG ORAL TABLET 2 today and then 1 daily for 4 days 03/27 AZITHROMYCIN 24878256353 No Longer Active Luna Prabhakar Active PREDNISONE 20 MG ORAL TABLET 2 daily for 3 days then 1 daily for 3 days 03/27 PREDNISONE 19959813830 No Longer Active Luna Prabhakar Active CLOPIDOGREL BISULFATE 75 MG ORAL TABLET 1 po qd CLOPIDOGREL BISULFATE 44787593483 Active Andre Barreto MD Active FUROSEMIDE 20 MG ORAL TABLET 1 po qd PRN Edema FUROSEMIDE 81867503973 Active Andre Barreto MD Active PROAIR HFA 108 (90 Base) MCG/ACT INHALATION AEROSOL SOLUTION 2 puffs q4hr PRN Shortness of air/Wheezing ALBUTEROL SULFATE 28944344824 Active Andre Barreto MD Active ATORVASTATIN CALCIUM 80 MG ORAL TABLET 1 po qHS ATORVASTATIN CALCIUM 95992402673 No Longer Active Andre Barreto MD Active AMBIEN 5 MG ORAL TABLET 1 po qHS PRN Insomnia ZOLPIDEM TARTRATE 57371635219 Active Andre Barreto MD Active DETROL 2 MG ORAL TABLET 1 po qd TOLTERODINE TARTRATE 81708409380 Active Andre Barreto MD Active NITROGLYCERIN 0.4 MG SUBLINGUAL TABLET SUBLINGUAL 1 SL q5min PRN Chest pain up to 3 doses NITROGLYCERIN 38974459103 Active Andre Barreto MD Active TOPROL XL 50 MG ORAL TABLET EXTENDED RELEASE 24 HOUR 1 po qd METOPROLOL SUCCINATE 36136692298 Active Andre Barreto MD Active SYMBICORT 160-4.5 MCG/ACT INHALATION AEROSOL 2 puff BID BUDESONIDE-FORMOTEROL FUMARATE 72748098614 Active Cayla VERA Active FLUOXETINE HCL 40 MG ORAL CAPSULE 1 po qd FLUOXETINE HCL 66853822903 Active Andre Barreto MD Active BENICAR HCT 40-25 MG ORAL TABLET Take one by mouth daily OLMESARTAN MEDOXOMIL-HCTZ 72843727853 No Longer Active Andre Barreto MD Active LOSARTAN POTASSIUM-HCTZ 100-25 MG ORAL TABLET 1 po qd LOSARTAN POTASSIUM-HCTZ 93906683411 Active Andre Barreto MD Active BETAMETHASONE DIPROPIONATE 0.05 % EXTERNAL OINTMENT Apply to affected areas BID for up to 2 weeks BETAMETHASONE DIPROPIONATE 24015863234 No Longer Active Andre Barreto MD Active ZOFRAN 4 MG ORAL TABLET 1 po q6hr PRN Nausea ONDANSETRON HCL 64498745367 No Longer Active Andre Barreto MD Active CIPRO 500 MG ORAL TABLET 1 tablet by mouth twice daily CIPROFLOXACIN HCL 11021619194 No Longer Active Andre Barreto MD Active SYMBICORT 160-4.5 MCG/ACT INHALATION AEROSOL 2 puffs inhaled bid BUDESONIDE-FORMOTEROL FUMARATE 23384035839 No Longer Active Andre Barreto MD Active DICLOFENAC SODIUM 75 MG ORAL TABLET DELAYED RELEASE 1 tablet by mouth twice daily DICLOFENAC SODIUM 08885650812 No Longer Active Andre Barreto MD Active PROZAC 40 MG ORAL CAPSULE 1 cap by mouth at bedtime FLUOXETINE HCL 82315316821 No Longer Active Andre Barreto MD Active HYDROCODONE-ACETAMINOPHEN 5-325 MG ORAL TABLET 1 po q 6hr PRN Pain HYDROCODONE-ACETAMINOPHEN 24879093539 No Longer Active Andre Barreto MD Active TRAMADOL HCL 50 MG ORAL TABLET 2 po q 6 hrs prn TRAMADOL HCL 98490373268 Active Andre Barreto MD Active HYDROCODONE-ACETAMINOPHEN 5-325 MG ORAL TABLET 1 po q 6hr PRN Pain HYDROCODONE-ACETAMINOPHEN 5-325 MG ORAL TABLET 711931 HYDROCODONE- ACETAMINOPHEN Inactive PROZAC 40 MG ORAL CAPSULE 1 cap by mouth at bedtime PROZAC 40 MG ORAL CAPSULE 793583 FLUOXETINE HCL Inactive DICLOFENAC SODIUM 75 MG ORAL TABLET DELAYED RELEASE 1 tablet by mouth twice daily DICLOFENAC SODIUM 75 MG ORAL TABLET DELAYED RELEASE 055280 DICLOFENAC SODIUM Inactive SYMBICORT 160-4.5 MCG/ACT INHALATION AEROSOL 2 puffs inhaled bid SYMBICORT 160-4.5 MCG/ACT INHALATION AEROSOL BUDESONIDE-FORMOTEROL FUMARATE Inactive ZOFRAN 4 MG ORAL TABLET 1 po q6hr PRN Nausea ZOFRAN 4 MG ORAL TABLET 380468 ONDANSETRON HCL Inactive BETAMETHASONE DIPROPIONATE 0.05 % EXTERNAL OINTMENT Apply to affected areas BID for up to 2 weeks BETAMETHASONE DIPROPIONATE 0.05 % EXTERNAL OINTMENT 541131 BETAMETHASONE DIPROPIONATE Inactive BENICAR HCT 40-25 MG ORAL TABLET Take one by mouth daily BENICAR HCT 40-25 MG ORAL TABLET 032864 OLMESARTAN MEDOXOMIL-HCTZ Inactive ATORVASTATIN CALCIUM 80 MG ORAL TABLET 1 po qHS ATORVASTATIN CALCIUM 80 MG ORAL TABLET 210799 ATORVASTATIN CALCIUM Inactive PREDNISONE 20 MG ORAL TABLET 2 daily for 3 days then 1 daily for 3 days 03/27 PREDNISONE 20 MG ORAL TABLET 895269 PREDNISONE Inactive ZITHROMAX Z-NEVAEH 250 MG ORAL TABLET 2 today and then 1 daily for 4 days 03/27 ZITHROMAX Z-NEVAEH 250 MG ORAL TABLET 003195 AZITHROMYCIN Inactive BENZONATATE 200 MG ORAL CAPSULE 1 three times a day as needed for cough 03/27 BENZONATATE 200 MG ORAL CAPSULE 151363 BENZONATATE Inactive BACTRIM DS 800-160 MG ORAL TABLET 1 tab by mouth twice daily 2017 BACTRIM DS 800-160 MG ORAL TABLET 057496 TRIMETHOPRIM- SULFAMETHOXAZOLE Inactive BACTROBAN 2 % EXTERNAL OINTMENT Apply to affected area BID 05/18 BACTROBAN 2 % EXTERNAL OINTMENT MUPIROCIN Inactive GUAIFENESIN DM 400-20 MG ORAL TABLET 1 pill by mouth twice daily, if needed for cough GUAIFENESIN DM 400-20 MG ORAL TABLET 3578947 DEXTROMETHORPHAN-GUAIFENESIN Inactive ATORVASTATIN CALCIUM 40 MG ORAL TABLET 1 po qHS ATORVASTATIN CALCIUM 40 MG ORAL TABLET 117042 ATORVASTATIN CALCIUM Inactive MECLIZINE HCL 25 MG ORAL TABLET 1 po q8hr PRN Dizziness MECLIZINE HCL 25 MG ORAL TABLET 580832 MECLIZINE HCL Inactive CIPRO 500 MG ORAL TABLET 1 tablet by mouth twice daily CIPRO 500 MG ORAL TABLET 886630 CIPROFLOXACIN HCL Inactive CEFDINIR 300 MG ORAL CAPSULE by mouth twice a day CEFDINIR 300 MG ORAL CAPSULE 000222 CEFDINIR Inactive CLINDAMYCIN HCL 300 MG ORAL CAPSULE 1 po QID x 7 days CLINDAMYCIN HCL 300 MG ORAL CAPSULE 453373 CLINDAMYCIN HCL Inactive Advance Directives Directive Description [...] Panel - Chemistry sodium, serum 139 mmol/L 562-746 7437/05/04 carbon dioxide, venous blood 28.7 mmol/L 21.0-32.0 [...] 6.2 % 4.3-6.0 cholesterol, serum 302 mg/dL 529-599 2754/05/04 triglyceride, serum, fasting 145 mg/dL 30-200 HDL cholesterol, serum 61 mg/dL 32-60 LDL cholesterol, serum 212 mg/dL 0-130 Lab Report: HGBA1C, Lipid Panel, Comp. Metabolic Panel - Chemistry hemoglobin A1C, blood, as % of total hemoglobin 6.2 % 4.3-6.0 cholesterol, serum 229 mg/dL 082-874 9418/07/24 triglyceride, serum, fasting 106 mg/dL 30-200 HDL cholesterol, serum 60 mg/dL 32-60 LDL cholesterol, serum 148 mg/dL 0-130 sodium, serum 139 mmol/L 196-608 4946/07/24 carbon dioxide, venous blood 34.8 mmol/L 21.0-32.0 [...] Panel - Chemistry cholesterol, serum 275 mg/dL 368-938 2135/11/07 triglyceride, serum, fasting 166 mg/dL 30-200 HDL cholesterol, serum 62 mg/dL 32-60 LDL cholesterol, serum 180 mg/dL 0-130 sodium, serum 141 mmol/L 762-036 3057/11/07 carbon dioxide, venous blood 26.3 mmol/L 21.0-32.0 [...] 0-19 Encounters Code Encounter Date Provider Facility CPT-58718 Level 4 Est. Patient 09:44:36 CDT Andre Barreto MD [facility] CPT-09397 Level 4 Est. Patient 10:07:14 CDT Andre Barreto MD [facility] CPT-12852 Level 3 Est. Patient 14:29:01 CDT Esa Jackson MD [facility] CPT-38678 Level 3 Est. Patient 14:06:16 CDT Andre Barreto MD [facility] CPT-64577 Level 3 Est. Patient 09:16:36 CDT David King [facility] CPT-18846 Level 3 Est. Patient 09:24:01 [employer] David King [facility] CPT-79205 Level 3 Est. Patient 13:01:07 [employer] Solitario Howe MD [facility] CPT-79359 Level 4 Est. Patient 10:26:48 [employer] Andre Barreto MD [facility] CPT-20572 Level 4 Est. Patient 09:45:06 CDT Andre Barreto MD [facility] CPT-02555 Level 4 Est. Patient 11:53:39 [employer]END[employer] Andre Barreto MD [facility] CPT-67136 Level 4 Est. Patient 14:21:31 CDT Andre Barreto MD [facility] CPT-35526 Level 4 Est. Patient 15:24:17 CDT Andre Barreto MD [facility] CPT-20229 Level 3 Est. Patient 10:36:40 CDT Andre Barreto MD [facility] CPT-72384 Level 4 Est. Patient 11:27:43 CDT Andre Barreto MD [facility] CPT-88589 Level 3 Est. Patient 10:57:31 [employer] Andre Barreto MD [facility] CPT-15764 Level 3 Est. Patient 13:53:13 [employer]END[employer] Andre Barreto MD [facility] CPT-65382 Level 3 Est. Patient 09:16:12 CDT Andre Barreto MD [facility] CPT-55484 Level 3 Est. Patient 14:50:35 CDT Andre Barreto MD [facility] Procedures Code Procedure Name Date Entry Date Standard Description CPT-36542 Postop F/U Visit 14:31:27 CDT CPT-06748 Postop F/U Visit 14:30:20 CDT CPT-64352 Sono pelvis coley bladder only - XRAY USE ONLY 15:07:39 CDT CPT-95335 First Vx - Ix admin for Medicare patients 13:56:44 [employer]END[employer] CPT-88058 Zostavax Subcutaneous Solution Reconstituted 29547 UNT/0.65ML 12/22 13:56:44 [employer]END[employer] CPT-G0009 Administration of Pneumococcal Vaccine 10:12:50 CDT CPT-77044 Pneumovax 23 Injection Injectable 25 MCG/0.5ML 10:12:50 CDT CPT-G0439 [facility] Annual Wellness Exam 09:49:25 CDT CPT-68701 First Vx - Ix admin for Medicare patients 17:55:11 [employer]END[employer] CPT-30200 Fluzone High-Dose Intramuscular Suspension 17:55:11 [employer]END[employer] CPT-19392 Venipuncture Draw Fee 14:11:36 CDT CPT-45006 Lipid - LAB USE ONLY 14:11:36 CDT CPT-95389 CMP - LAB USE ONLY 14:11:36 CDT CPT-G0438 Initial Annual Wellness Exam 13:29:06 CDT CPT-G0009 Administration of Pneumococcal Vaccine 13:26:57 CDT CPT-46758 Prevnar 13 Intramuscular Suspension 13:26:56 CDT 08/19 CPT-30990 Bone Density - XRAY USE ONLY 09:30:16 CDT CPT-Cryo Cryotherapy 08:59:26 [employer]ENDANT CPT-Cryo Cryotherapy 08:46:02 CDT CPT-71552 Chest 2V Frontal and Lat 14:02:13 [employer] ATTENDANT
--- OUTSIDE RECORDS SUMMARY | 2018-03-16 19:35 | XMS REPORT | Clinical Summary ---
Author Author Admin, EDUARDO Organization [email or web address] Address Unknown Phone Unavailable Allergies, Adverse Reactions, [...] Coronary atherosclerosis of unspecified type of vessel, [place] or graft Obstructive sleep apnea 327.23 Active [...] airway pressure rx V46.2 Active [employer] Other dependence on machines, supplemental oxygen Osteopenia [...] Generic Name NDC Status Provider Patient Instruction AMBIEN 5 MG TABS 1 po qHS PRN Insomnia ZOLPIDEM TARTRATE 53841886531 Active Andre Barreto MD Active DETROL 2 MG ORAL TABS 1 po qd TOLTERODINE TARTRATE 17942824855 Active Andre Barreto MD Active NITROGLYCERIN 0.4 MG SL SUBL 1 SL q5min PRN Chest pain up to 3 doses NITROGLYCERIN 57872804976 Bar Barreto MD Active TOPROL XL 50 MG ORAL [id number] 1 po qd METOPROLOL SUCCINATE 90049357241 Active Andre Barreto MD Active PLAVIX 75 MG TABS 1 po qd CLOPIDOGREL BISULFATE 56285203349 Bar Barreto MD Active LASIX 20 MG TAB 1 po qd PRN Edema FUROSEMIDE 29851355536 Active Andre Barreto MD Active ATORVASTATIN CALCIUM 80 MG TABS 1 po qHS ATORVASTATIN CALCIUM 78751547866 Active Andre Barreto MD Active SYMBICORT 160-4.5 MCG/ACT AERO 2 puff BID BUDESONIDE- FORMOTEROL FUMARATE 93425014880 Active Andre Barreto MD Active PROAIR HFA 108 (90 BASE) MCG/ACT AERS 2 puffs four times a day as needed 2015 ALBUTEROL SULFATE 00670539034 Active Andre Barreto MD Active FLUOXETINE HCL 40 MG ORAL CAPS 1 po qd FLUOXETINE HCL 91011912103 Active Andre Barreto MD Active BENICAR HCT 40-25 MG TABS Take one by mouth daily OLMESARTAN MEDOXOMIL-HCTZ 71569596806 No Longer Active Andre Barreto MD Active LOSARTAN POTASSIUM-HCTZ 100-25 MG TABS 1 po qd LOSARTAN POTASSIUM-HCTZ 51876786295 Active Andre Barreto MD Active BETAMETHASONE DIPROPIONATE 0.05 % OINT Apply to affected areas BID for up to 2 weeks BETAMETHASONE DIPROPIONATE 68799706345 No Longer Active Andre Barreto MD Active ZOFRAN 4 MG TABS 1 po q6hr PRN Nausea ONDANSETRON HCL 57313859574 No Longer Active Andre Barreto MD Active CIPRO 500 MG TAB 1 tablet by mouth twice daily CIPROFLOXACIN HCL 45251210843 No Longer Active Andre Barreto MD Active SYMBICORT 160-4.5 MCG/ACT AERO 2 puffs inhaled bid BUDESONIDE- FORMOTEROL FUMARATE 43135786210 No Longer Active Andre Barreto MD Active DICLOFENAC SODIUM 75 MG TBEC 1 tablet by mouth twice daily DICLOFENAC SODIUM 09221351146 No Longer Active Andre Barreto MD Active PROZAC 40 MG CAPS 1 cap by mouth at bedtime FLUOXETINE HCL 09563757045 No Longer Active Andre Barreto MD Active HYDROCODONE-ACETAMINOPHEN 5-325 MG TABS 1 po q 6hr PRN Pain HYDROCODONE-ACETAMINOPHEN 13680489193 No Longer Active Andre Barreto MD Active TRAMADOL HCL 50 MG TABS 2 po q 6 hrs prn TRAMADOL HCL 78975635946 Active Andre Barreto MD Active HYDROCODONE-ACETAMINOPHEN 5-325 MG TABS 1 po q 6hr PRN Pain HYDROCODONE-ACETAMINOPHEN 5-325 MG TABS 698994 HYDROCODONE-ACETAMINOPHEN Inactive PROZAC 40 MG CAPS 1 cap by mouth at bedtime PROZAC 40 MG CAPS 090164 FLUOXETINE HCL Inactive DICLOFENAC SODIUM 75 MG TBEC 1 tablet by mouth twice daily DICLOFENAC SODIUM 75 MG TBEC 832034 DICLOFENAC SODIUM Inactive SYMBICORT 160-4.5 MCG/ACT AERO 2 puffs inhaled bid SYMBICORT 160-4.5 MCG/ACT AERO BUDESONIDE-FORMOTEROL FUMARATE Inactive ZOFRAN 4 MG TABS 1 po q6hr PRN Nausea ZOFRAN 4 MG TABS 024266 ONDANSETRON HCL Inactive BETAMETHASONE DIPROPIONATE 0.05 % OINT Apply to affected areas BID for up to 2 weeks BETAMETHASONE DIPROPIONATE 0.05 % OINT 318948 BETAMETHASONE DIPROPIONATE Inactive BENICAR HCT 40-25 MG TABS Take one by mouth daily BENICAR HCT 40-25 MG TABS 626889 OLMESARTAN MEDOXOMIL-HCTZ Inactive CIPRO 500 MG TAB 1 tablet by mouth twice daily CIPRO 500 MG TAB 532305 CIPROFLOXACIN HCL Inactive Advance Directives Directive Description Start Date DISCUSSED WITH PATIENT -- NO DECISION MADE Vital Signs Date Name Value Unit Range Description blood pressure, diastolic 57 mm[Hg] BP pat [...] Panel - Chemistry sodium, serum 143 mmol/L 333-309 0681/09/27 carbon dioxide, venous blood 30.1 mmol/L 21.0-32.0 potassium, serum 3.9 mmol/L 3.5-5.2 chloride, serum 107 mmol/L 98-107 blood glucose 114 mg/dL 65-110 urea nitrogen, blood 14 mg/dL 7-18 creatinine, serum 0.79 mg/dL 0.55-1.30 alanine aminotransferase (SGPT), serum 44 U/L 12-78 aspartate aminotransferase (SGOT), serum 25 U/L 15-37 calcium, serum 8.5 mg/dL 8.5-10.1 bilirubin, serum, total 0.30 mg/dL 0.00-1.00 cholesterol, serum 152 mg/dL 582-179 2587/09/27 triglyceride, serum, fasting 85 mg/dL 30-200 HDL cholesterol, serum 59 mg/dL 32-96 LDL cholesterol, serum 76 mg/dL 0-130 Lab Report: HGBA1C, Lipid Panel, Comp. Metabolic Panel - Chemistry hemoglobin A1C, blood, as % of total hemoglobin 6.2 % 4.3-6.0 cholesterol, serum 229 mg/dL 349-520 7030/07/24 triglyceride, serum, fasting 106 mg/dL 30-200 HDL cholesterol, serum 60 mg/dL 32-60 LDL cholesterol, serum 148 mg/dL 0-130 sodium, serum 139 mmol/L 380-112 9573/07/24 carbon dioxide, venous blood 34.8 mmol/L 21.0-32.0 [...] 0.00-1.00 Encounters Code Encounter Date Provider Facility CPT-11763 Level 4 Est. Patient 11:53:39 [employer] Andre Barreto MD [facility] CPT-32403 Level 4 Est. Patient 14:21:31 CDT Andre Barreto MD [facility] CPT-34073 Level 4 Est. Patient 15:24:17 CDT Andre Barreto MD [facility] CPT-33947 Level 3 Est. Patient 10:36:40 CDT Andre Barreto MD [facility] CPT-16526 Level 4 Est. Patient 11:27:43 CDT Andre Barreto MD [facility] CPT-31103 Level 3 Est. Patient 10:57:31 [employer] Andre Barreto MD [facility] CPT-02567 Level 3 Est. Patient 13:53:13 [employer] Andre Barreto MD [facility] CPT-13829 Level 3 Est. Patient 09:16:12 CDT Andre Barreto MD [facility] CPT-24850 Level 3 Est. Patient 14:50:35 CDT Andre Barreto MD [facility] Procedures Code Procedure Name Date Entry Date Standard Description CPT-76816 First Vx - Ix admin for Medicare patients 17:55:11 [employer] CPT-06772 Fluzone High-Dose Intramuscular Suspension 17:55:11 [employer] CPT-54357 Venipuncture Draw Fee 14:11:36 CDT CPT-08826 Lipid - LAB USE ONLY 14:11:36 CDT CPT-37783 CMP - LAB USE ONLY 14:11:36 CDT CPT-G0438 Initial Annual Wellness Exam 13:29:06 CDT CPT-G0009 Administration of Pneumococcal Vaccine 13:26:57 CDT CPT-55980 Prevnar 13 Intramuscular Suspension 13:26:56 CDT 08/19 CPT-81272 Bone Density - XRAY USE ONLY 09:30:16 CDT CPT-Cryo Cryotherapy 08:59:26 [employer] CPT-Cryo Cryotherapy 08:46:02 CDT CPT-40697 Chest 2V Frontal and Lat 14:02:13 [employer]
--- OUTSIDE RECORDS SUMMARY | 2018-03-16 19:35 | XMS REPORT | Clinical Summary ---
Author Author Admin, [employer] Organization [employer] Address Unknown Phone Unavailable Allergies, Adverse Reactions, Alerts Allergy Name Reaction Description Start Date Severity Status Provider SULFA Mild No Longer Active Jillina Frazell FLORAL ASSISTANT PENICILLIN Mild No Longer Active Jillina Frazell FLORAL ASSISTANT ZINC Mild No Longer Active Jillina Frazell FLORAL ASSISTANT SULFA Critical No Longer Active Marcelle Yesi [...] Coronary atherosclerosis of unspecified type of vessel, [place] or graft Obstructive sleep apnea 327.23 Active [...] Barreto MD Dyshidrotic eczema, hands ICD-705.81 Inactive nAdre Barreto MD Postmenopausal status ICD-V49.81 Inactive Andre Barreto MD Family history of osteoporosis ICD-V17.81 Inactive Andre Barreto MD Unsteady gait ICD-781.2 Inactive Andre Barreto MD Acute exacerbation of chronic bronchitis ICD-491.22 Inactive Solitario Howe MD Medication List Medication Instructions Start Date Stop Date Generic Name NDC Status Provider Patient Instruction BACTROBAN 2 % EXTERNAL OINTMENT Apply to affected area BID 05/18 MUPIROCIN 22115482438 No Longer Active Moira Price MA Active CLINDAMYCIN HCL 300 MG ORAL CAPSULE 1 po QID x 7 days CLINDAMYCIN HCL 53817499818 Active Jillina Frazell FLORAL ASSISTANT Active BACTRIM DS 800-160 MG ORAL TABLET 1 tab by mouth twice daily 2017 TRIMETHOPRIM-SULFAMETHOXAZOLE 42609850851 No Longer Active Jillina Frazell FLORAL ASSISTANT Active GUAIFENESIN DM 400-20 MG ORAL TABLET 1 pill by mouth twice daily, if needed for cough DEXTROMETHORPHAN-GUAIFENESIN 57605618578 Active Jillina Frazell FLORAL ASSISTANT Active CEFDINIR 300 MG ORAL CAPSULE by mouth twice a day CEFDINIR 60397117007 No Longer Active Jillina Frazell FLORAL ASSISTANT Active BENZONATATE 200 MG ORAL CAPSULE 1 three times a day as needed for cough 03/27 BENZONATATE 95230274714 No Longer Active Luna Prabhakar Active ZITHROMAX Z-NEVAEH 250 MG ORAL TABLET 2 today and then 1 daily for 4 days 03/27 AZITHROMYCIN 78278450967 No Longer Active Luna Prabhakar Active PREDNISONE 20 MG ORAL TABLET 2 daily for 3 days then 1 daily for 3 days 03/27 PREDNISONE 51762825606 No Longer Active Luna Prabhakar Active ATORVASTATIN CALCIUM 40 MG ORAL TABLET 1 po qHS ATORVASTATIN CALCIUM 43488870424 Active Marcelle VERA Active CLOPIDOGREL BISULFATE 75 MG ORAL TABLET 1 po qd CLOPIDOGREL BISULFATE 18643986847 Active Andre Barreto MD Active FUROSEMIDE 20 MG ORAL TABLET 1 po qd PRN Edema FUROSEMIDE 78283230056 Active Andre Barreto MD Active PROAIR HFA 108 (90 Base) MCG/ACT INHALATION AEROSOL SOLUTION 2 puffs q4hr PRN Shortness of air/Wheezing ALBUTEROL SULFATE 58972071827 Active Andre Barreto MD Active ATORVASTATIN CALCIUM 80 MG ORAL TABLET 1 po qHS ATORVASTATIN CALCIUM 86543144126 No Longer Active Andre Barreto MD Active AMBIEN 5 MG ORAL TABLET 1 po qHS PRN Insomnia ZOLPIDEM TARTRATE 37674718714 Active Andre Barreto MD Active DETROL 2 MG ORAL TABLET 1 po qd TOLTERODINE TARTRATE 91033687908 Active Andre Barreto MD Active NITROGLYCERIN 0.4 MG SUBLINGUAL TABLET SUBLINGUAL 1 SL q5min PRN Chest pain up to 3 doses NITROGLYCERIN 15274597195 Active Andre Barreto MD Active TOPROL XL 50 MG ORAL TABLET EXTENDED RELEASE 24 HOUR 1 po qd METOPROLOL SUCCINATE 55058119897 Active Andre Barreto MD Active SYMBICORT 160-4.5 MCG/ACT INHALATION AEROSOL 2 puff BID BUDESONIDE-FORMOTEROL FUMARATE 01765509265 Active Cayla VERA Active FLUOXETINE HCL 40 MG ORAL CAPSULE 1 po qd FLUOXETINE HCL 25708218544 Active Andre Barreto MD Active BENICAR HCT 40-25 MG ORAL TABLET Take one by mouth daily OLMESARTAN MEDOXOMIL-HCTZ 30982197502 No Longer Active Andre Barreto MD Active LOSARTAN POTASSIUM-HCTZ 100-25 MG ORAL TABLET 1 po qd LOSARTAN POTASSIUM-HCTZ 24596368122 Active Andre Barreto MD Active BETAMETHASONE DIPROPIONATE 0.05 % EXTERNAL OINTMENT Apply to affected areas BID for up to 2 weeks BETAMETHASONE DIPROPIONATE 11123240368 No Longer Active Andre Barreto MD Active ZOFRAN 4 MG ORAL TABLET 1 po q6hr PRN Nausea ONDANSETRON HCL 94301874578 No Longer Active Andre Barreto MD Active CIPRO 500 MG ORAL TABLET 1 tablet by mouth twice daily CIPROFLOXACIN HCL 66416970546 No Longer Active Andre Barreto MD Active SYMBICORT 160-4.5 MCG/ACT INHALATION AEROSOL 2 puffs inhaled bid BUDESONIDE-FORMOTEROL FUMARATE 77329206845 No Longer Active Andre Barreto MD Active DICLOFENAC SODIUM 75 MG ORAL TABLET DELAYED RELEASE 1 tablet by mouth twice daily DICLOFENAC SODIUM 81722718733 No Longer Active Andre Barreto MD Active PROZAC 40 MG ORAL CAPSULE 1 cap by mouth at bedtime FLUOXETINE HCL 38131667985 No Longer Active Andre Barreto MD Active HYDROCODONE-ACETAMINOPHEN 5-325 MG ORAL TABLET 1 po q 6hr PRN Pain HYDROCODONE-ACETAMINOPHEN 04731427159 No Longer Active Andre Barreto MD Active TRAMADOL HCL 50 MG ORAL TABLET 2 po q 6 hrs prn TRAMADOL HCL 26967513068 Active Andre Barreto MD Active HYDROCODONE-ACETAMINOPHEN 5-325 MG ORAL TABLET 1 po q 6hr PRN Pain HYDROCODONE-ACETAMINOPHEN 5-325 MG ORAL TABLET 805049 HYDROCODONE- ACETAMINOPHEN Inactive PROZAC 40 MG ORAL CAPSULE 1 cap by mouth at bedtime PROZAC 40 MG ORAL CAPSULE 274538 FLUOXETINE HCL Inactive DICLOFENAC SODIUM 75 MG ORAL TABLET DELAYED RELEASE 1 tablet by mouth twice daily DICLOFENAC SODIUM 75 MG ORAL TABLET DELAYED RELEASE 503231 DICLOFENAC SODIUM Inactive SYMBICORT 160-4.5 MCG/ACT INHALATION AEROSOL 2 puffs inhaled bid SYMBICORT 160-4.5 MCG/ACT INHALATION AEROSOL BUDESONIDE-FORMOTEROL FUMARATE Inactive ZOFRAN 4 MG ORAL TABLET 1 po q6hr PRN Nausea ZOFRAN 4 MG ORAL TABLET 412894 ONDANSETRON HCL Inactive BETAMETHASONE DIPROPIONATE 0.05 % EXTERNAL OINTMENT Apply to affected areas BID for up to 2 weeks BETAMETHASONE DIPROPIONATE 0.05 % EXTERNAL OINTMENT 699234 BETAMETHASONE DIPROPIONATE Inactive BENICAR HCT 40-25 MG ORAL TABLET Take one by mouth daily BENICAR HCT 40-25 MG ORAL TABLET 845432 OLMESARTAN MEDOXOMIL-HCTZ Inactive ATORVASTATIN CALCIUM 80 MG ORAL TABLET 1 po qHS ATORVASTATIN CALCIUM 80 MG ORAL TABLET 976157 ATORVASTATIN CALCIUM Inactive PREDNISONE 20 MG ORAL TABLET 2 daily for 3 days then 1 daily for 3 days 03/27 PREDNISONE 20 MG ORAL TABLET 026891 PREDNISONE Inactive ZITHROMAX Z-NEVAEH 250 MG ORAL TABLET 2 today and then 1 daily for 4 days 03/27 ZITHROMAX Z-NEVAEH 250 MG ORAL TABLET 554787 AZITHROMYCIN Inactive BENZONATATE 200 MG ORAL CAPSULE 1 three times a day as needed for cough 03/27 BENZONATATE 200 MG ORAL CAPSULE 074156 BENZONATATE Inactive BACTRIM DS 800-160 MG ORAL TABLET 1 tab by mouth twice daily 2017 BACTRIM DS 800-160 MG ORAL TABLET 759229 TRIMETHOPRIM- SULFAMETHOXAZOLE Inactive BACTROBAN 2 % EXTERNAL OINTMENT Apply to affected area BID 05/18 BACTROBAN 2 % EXTERNAL OINTMENT 642341 MUPIROCIN Inactive CIPRO 500 MG ORAL TABLET 1 tablet by mouth twice daily CIPRO 500 MG ORAL TABLET 615112 CIPROFLOXACIN HCL Inactive CEFDINIR 300 MG ORAL CAPSULE by mouth twice a day CEFDINIR 300 MG ORAL CAPSULE 476710 CEFDINIR Inactive Advance Directives Directive Description Start Date DISCUSSED WITH PATIENT -- NO DECISION MADE Vital Signs Date Name Value Unit Range Description blood pressure, diastolic 80 mm[Hg] BP pat [...] 6.2 % 4.3-6.0 cholesterol, serum 229 mg/dL 239-023 4913/07/24 triglyceride, serum, fasting 106 mg/dL 30-200 HDL cholesterol, serum 60 mg/dL 32-60 LDL cholesterol, serum 148 mg/dL 0-130 sodium, serum 139 mmol/L 708-904 7157/07/24 carbon dioxide, venous blood 34.8 mmol/L 21.0-32.0 [...] Panel - Chemistry cholesterol, serum 275 mg/dL 373-360 4477/11/07 triglyceride, serum, fasting 166 mg/dL 30-200 HDL cholesterol, serum 62 mg/dL 32-60 LDL cholesterol, serum 180 mg/dL 0-130 sodium, serum 141 mmol/L 078-498 1105/11/07 carbon dioxide, venous blood 26.3 mmol/L 21.0-32.0 [...] 0-19 Encounters Code Encounter Date Provider Facility CPT-95624 Level 3 Est. Patient 14:06:16 CDT Andre Barreto MD [facility] CPT-11828 Level 3 Est. Patient 09:16:36 CDT [facility] CPT-28217 Level 3 Est. Patient 09:24:01 UPHOLSTERY AUTO TRIMMER [facility] CPT-06244 Level 3 Est. Patient 13:01:07 UPHOLSTERY AUTO TRIMMER Solitario Howe MD [facility] CPT-12511 Level 4 Est. Patient 10:26:48 UPHOLSTERY AUTO TRIMMER Andre Barreto MD [facility] CPT-98651 Level 4 Est. Patient 09:45:06 CDT Andre Barreto MD [facility] CPT-07375 Level 4 Est. Patient 11:53:39 UPHOLSTERY AUTO TRIMMER Andre Barreto MD [facility] CPT-32090 Level 4 Est. Patient 14:21:31 CDT Andre Barreto MD [facility] CPT-84157 Level 4 Est. Patient 15:24:17 CDT Andre Barreto MD [facility] CPT-30005 Level 3 Est. Patient 10:36:40 CDT Andre Barreto MD [facility] CPT-00368 Level 4 Est. Patient 11:27:43 CDT Andre Barreto MD [facility] CPT-77311 Level 3 Est. Patient 10:57:31 UPHOLSTERY AUTO TRIMMER Andre Barreto MD [facility] CPT-73904 Level 3 Est. Patient 13:53:13 UPHOLSTERY AUTO TRIMMER Andre Barreto MD [facility] CPT-81358 Level 3 Est. Patient 09:16:12 CDT Andre Barreto MD [facility] CPT-06755 Level 3 Est. Patient 14:50:35 CDT Andre Barreto MD [facility] Procedures Code Procedure Name Date Entry Date Standard Description CPT-19173 Sono pelvis coley bladder only - XRAY USE ONLY 15:07:39 CDT CPT-87307 First Vx - Ix admin for Medicare patients 13:56:44 UPHOLSTERY AUTO TRIMMER CPT-17347 Zostavax Subcutaneous Solution Reconstituted 05624 UNT/0.65ML 12/22 13:56:44 UPHOLSTERY AUTO TRIMMER CPT-G0009 Administration of Pneumococcal Vaccine 10:12:50 CDT CPT-19032 Pneumovax 23 Injection Injectable 25 MCG/0.5ML 10:12:50 CDT CPT-G0439 Subsequent Annual Wellness Exam 09:49:25 CDT CPT-09859 First Vx - Ix admin for Medicare patients 17:55:11 UPHOLSTERY AUTO TRIMMER CPT-79604 Fluzone High-Dose Intramuscular Suspension 17:55:11 UPHOLSTERY AUTO TRIMMER CPT-30800 Venipuncture Draw Fee 14:11:36 CDT CPT-44248 Lipid - LAB USE ONLY 14:11:36 CDT CPT-46639 CMP - LAB USE ONLY 14:11:36 CDT CPT-G0438 Initial Annual Wellness Exam 13:29:06 CDT CPT-G0009 Administration of Pneumococcal Vaccine 13:26:57 CDT CPT-29039 Prevnar 13 Intramuscular Suspension 13:26:56 CDT 08/19 CPT-81046 Bone Density - XRAY USE ONLY 09:30:16 CDT CPT-Cryo Cryotherapy 08:59:26 UPHOLSTERY AUTO TRIMMER CPT-Cryo Cryotherapy 08:46:02 CDT CPT-34376 Chest 2V Frontal and Lat 14:02:13 UPHOLSTERY AUTO TRIMMER
--- OUTSIDE RECORDS SUMMARY | 2018-03-16 19:36 | XMS REPORT | Clinical Summary ---
Author Author Admin, [employer] Organization [employer] Address Unknown Phone Unavailable Allergies, Adverse Reactions, Alerts Allergy Name Reaction Description Start Date Severity Status Provider SULFA Critical Active Marcelle Yesi RMA PENICILLIN Critical Active Marcelle Yesi RMA ZINC Critical Active Marcelle Yesi RMA Conditions or Problems Problem Name Problem Code Onset Date Status Entry Date Provider Comment Standard Description Annotate Hyperlipidemia 272.4 Active Anrde Barreto MD Other and unspecified hyperlipidemia Hypertension 401.9 Active Andre Barreto MD Unspecified essential hypertension DYSPNEA 786.09 Resolved Andre Barreto MD Other dyspnea and respiratory abnormality FATIGUE 780.79 Resolved Andre Barreto MD Other malaise and fatigue DYSPNEA 786.05 Resolved Andre Barreto MD Shortness of breath Coronary artery disease 414.00 Active Andre Barreto MD Coronary atherosclerosis of unspecified type of vessel, [place] or graft Obstructive sleep apnea 327.23 Active [...] Active Janette NICHOLS Family history of osteoporosis Unsteady gait 781.2 Active Pushpa Beverly APRN Abnormality of gait Continuous positive airway pressure rx V46.2 Active Pushpa Beverly APRN Other dependence on machines, supplemental oxygen Osteopenia 733.90 Active Pushpa Beverly APRN Disorder of bone and cartilage, unspecified DYSPNEA ICD-786.09 Inactive Andre Barreto MD 2012 FATIGUE ICD-780.79 Inactive Andre Barreto MD 2012 DYSPNEA ICD-786.05 Inactive Andre Barreto MD 2013 /03/26 Fever ICD-780.60 Inactive Andre Barreto MD 05/23 Skin tag ICD-701.9 Inactive Andre Barreto MD 2014 Weakness, muscle ICD-728.87 Inactive Andre Barreto MD Dyshidrotic eczema, hands ICD-705.81 Inactive Andre Barreto MD Medication List Medication Instructions Start Date Stop Date Generic Name NDC Status Provider Patient Instruction ATORVASTATIN CALCIUM 80 MG TABS 1 po qHS ATORVASTATIN CALCIUM 17051512960 Active Andre Barreto MD Active SYMBICORT 160-4.5 MCG/ACT AERO 2 puff BID BUDESONIDE- FORMOTEROL FUMARATE 68319501375 Active Andre Barreto MD Active PROAIR HFA 108 (90 BASE) MCG/ACT AERS 2 puffs four times a day as needed 2015 ALBUTEROL SULFATE 91520846787 Active Andre Barreto MD Active FLUOXETINE HCL 40 MG ORAL CAPS 1 po qd FLUOXETINE HCL 31326953257 Active Andre Barreto MD Active DETROL 2 MG ORAL TABS one tab daily TOLTERODINE TARTRATE 23245395953 Active Andre Barreto MD Active BENICAR HCT 40-25 MG TABS Take one by mouth daily OLMESARTAN MEDOXOMIL-HCTZ 44201105848 No Longer Active Andre Barreto MD Active LOSARTAN POTASSIUM-HCTZ 100-25 MG TABS 1 po qd LOSARTAN POTASSIUM-HCTZ 22673994206 Active Andre Barreto MD Active BETAMETHASONE DIPROPIONATE 0.05 % OINT Apply to affected areas BID for up to 2 weeks BETAMETHASONE DIPROPIONATE 76697303895 No Longer Active Andre Barreto MD Active ZOFRAN 4 MG TABS 1 po q6hr PRN Nausea ONDANSETRON HCL 89977195552 No Longer Active Andre Barreto MD Active CIPRO 500 MG TAB 1 tablet by mouth twice daily CIPROFLOXACIN HCL 22267337934 No Longer Active Andre Barreto MD Active SYMBICORT 160-4.5 MCG/ACT AERO 2 puffs inhaled bid BUDESONIDE- FORMOTEROL FUMARATE 58694650418 No Longer Active Andre Barreto MD Active LASIX 20 MG TAB 1 tablet by mouth daily PRN FUROSEMIDE 13153965605 Active Andre Barreto MD Active TOPROL XL 25 MG [id number] Take one by mouth daily METOPROLOL SUCCINATE 57715945354 Active Andre Barreto MD Active PLAVIX 75 MG TABS 1 tablet by mouth daily CLOPIDOGREL BISULFATE 25598447329 Active Andre Barreto MD Active NITROSTAT 0.4 MG SL TAB disolve 1 under tongue repeat if needed NITROGLYCERIN 66867999169 Active Andre Barreto MD Active DICLOFENAC SODIUM 75 MG TBEC 1 tablet by mouth twice daily DICLOFENAC SODIUM 88993048239 No Longer Active Andre Barreto MD Active PROZAC 40 MG CAPS 1 cap by mouth at bedtime FLUOXETINE HCL 26525264292 No Longer Active Andre Barreto MD Active HYDROCODONE-ACETAMINOPHEN 5-325 MG TABS 1 po q 6hr PRN Pain HYDROCODONE-ACETAMINOPHEN 90274813797 No Longer Active Andre Barreto MD Active TRAMADOL HCL 50 MG TABS 2 po q 6 hrs prn TRAMADOL HCL 39208709249 Active David King FLATBED PRESS OPERATOR Active AMBIEN 5 MG TABS 1 po a hs prn ZOLPIDEM TARTRATE 80099325637 Active Andre Barreto MD Active HYDROCODONE-ACETAMINOPHEN 5-325 MG TABS 1 po q 6hr PRN Pain HYDROCODONE-ACETAMINOPHEN 5-325 MG TABS 982096 HYDROCODONE-ACETAMINOPHEN Inactive PROZAC 40 MG CAPS 1 cap by mouth at bedtime PROZAC 40 MG CAPS 367021 FLUOXETINE HCL Inactive DICLOFENAC SODIUM 75 MG TBEC 1 tablet by mouth twice daily DICLOFENAC SODIUM 75 MG TBEC 698233 DICLOFENAC SODIUM Inactive SYMBICORT 160-4.5 MCG/ACT AERO 2 puffs inhaled bid SYMBICORT 160-4.5 MCG/ACT AERO BUDESONIDE-FORMOTEROL FUMARATE Inactive ZOFRAN 4 MG TABS 1 po q6hr PRN Nausea ZOFRAN 4 MG TABS 445896 ONDANSETRON HCL Inactive BETAMETHASONE DIPROPIONATE 0.05 % OINT Apply to affected areas BID for up to 2 weeks BETAMETHASONE DIPROPIONATE 0.05 % OINT 941211 BETAMETHASONE DIPROPIONATE Inactive BENICAR HCT 40-25 MG TABS Take one by mouth daily BENICAR HCT 40-25 MG TABS OLMESARTAN MEDOXOMIL-HCTZ Inactive CIPRO 500 MG TAB 1 tablet by mouth twice daily CIPRO 500 MG TAB 154708 CIPROFLOXACIN HCL Inactive Advance Directives Directive Description [...] ... - Chemistry sodium, serum 140 mmol/L 776-150 8048/06/28 carbon dioxide, venous blood 32.4 mmol/L 21.0-32.0 potassium, serum 4.0 mmol/L 3.5-5.2 chloride, serum 101 mmol/L 98-107 blood glucose 108 mg/dL 65-110 urea nitrogen, blood 20 mg/dL 7-18 creatinine, serum 0.98 mg/dL 0.55-1.30 alanine aminotransferase (SGPT), serum 44 U/L 12-78 aspartate aminotransferase (SGOT), serum 27 U/L 15-37 calcium, serum 9.4 mg/dL 8.5-10.1 bilirubin, serum, total 0.30 mg/dL 0.00-1.00 cholesterol, serum 264 mg/dL 414-254 5184/06/28 triglyceride, serum, fasting 146 mg/dL 30-200 HDL [...] 0-19 Encounters Code Encounter Date Provider Facility CPT-75161 Level 4 Est. Patient 15:24:17 CDT Andre Barreto MD [facility] CPT-33807 Level 3 Est. Patient 10:36:40 CDT Andre Barreto MD [facility] CPT-17977 Level 4 Est. Patient 11:27:43 CDT Andre Barreto MD [facility] CPT-01951 Level 3 Est. Patient 10:57:31 CAR MOVER Andre Barreto MD [facility] CPT-92893 Level 3 Est. Patient 13:53:13 CAR MOVER Andre Barreto MD [facility] CPT-49926 Level 3 Est. Patient 09:16:12 CDT Andre aBrreto MD [facility] CPT-67686 Level 3 Est. Patient 14:50:35 CDT Andre Barreto MD [facility] Procedures Code Procedure Name Date Entry Date Standard Description CPT-G0438 Initial Annual Wellness Exam 13:29:06 CDT CPT-G0009 Administration of Pneumococcal Vaccine 13:26:57 CDT CPT-29959 Prevnar 13 Intramuscular Suspension 13:26:56 CDT 08/19 CPT-17362 Bone Density - XRAY USE ONLY 09:30:16 CDT CPT-Cryo Cryotherapy 08:59:26 CAR MOVER CPT-Cryo Cryotherapy 08:46:02 CDT CPT-56413 Chest 2V Frontal and Lat 14:02:13 CAR MOVER
--- OUTSIDE RECORDS SUMMARY | 2018-03-16 19:37 | XMS REPORT | Clinical Summary ---
Author Author Admin, EDUARDO Organization [employer] ( [facility] ) Address Unknown Phone Unavailable Allergies, Adverse Reactions, [...] Coronary atherosclerosis of unspecified type of vessel, [place] or graft Obstructive sleep apnea 327.23 Active Andre aBrreto MD Obstructive sleep apnea (adult) (pediatric) Health screening V70.0 Active Andre Barreto MD Routine general medical examination at a health care facility Fever 780.60 Resolved Andre Barreto MD Fever, unspecified Actinic keratosis 702.0 Resolved Andre Barreto MD Actinic keratosis Seborrheic keratosis 702.19 Resolved Ander Barreto MD Other seborrheic keratosis Skin tag [...] airway pressure rx V46.2 Active 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 on 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, supplemental oxygen Osteopenia [...] ORAL TABS 1 po qd TOLTERODINE TARTRATE 48941373159 Active Andre Barreto MD Active NITROGLYCERIN 0.4 MG SL SUBL 1 SL q5min PRN Chest pain up to 3 doses NITROGLYCERIN 17882747974 Active Andre Barreto MD Active TOPROL XL 50 MG ORAL AV22X-UEX 1 po qd METOPROLOL SUCCINATE 70376115978 Active Andre Barreto MD Active PLAVIX 75 MG TABS 1 po qd CLOPIDOGREL BISULFATE 73221863993 Active Andre Barreto MD Active LASIX 20 MG TAB 1 po qd PRN Edema FUROSEMIDE 03508034687 Bar Barreto MD Active ATORVASTATIN CALCIUM 80 MG TABS 1 po qHS ATORVASTATIN CALCIUM 02993428135 Active Andre Barreto MD Active SYMBICORT 160-4.5 MCG/ACT AERO 2 puff BID BUDESONIDE- FORMOTEROL FUMARATE 21129004616 Active Andre Barreto MD Active PROAIR HFA 108 (90 BASE) MCG/ACT AERS 2 puffs four times a day as needed 2015 ALBUTEROL SULFATE 73468487650 Active Andre Barreto MD Active FLUOXETINE HCL 40 MG ORAL CAPS 1 po qd FLUOXETINE HCL 81277553541 Active Andre Barreto MD Active BENICAR HCT 40-25 MG TABS Take one by mouth daily OLMESARTAN MEDOXOMIL-HCTZ 20244249168 No Longer Active Andre Barreto MD Active LOSARTAN POTASSIUM-HCTZ 100-25 MG TABS 1 po qd LOSARTAN POTASSIUM-HCTZ 58363997254 Active Andre Barreto MD Active BETAMETHASONE DIPROPIONATE 0.05 % OINT Apply to affected areas BID for up to 2 weeks BETAMETHASONE DIPROPIONATE 20313527556 No Longer Active Andre Barreto MD Active ZOFRAN 4 MG TABS 1 po q6hr PRN Nausea ONDANSETRON HCL 38092211716 No Longer Active Andre Barreto MD Active CIPRO 500 MG TAB 1 tablet by mouth twice daily CIPROFLOXACIN HCL 74160745080 No Longer Active Andre Barreto MD Active SYMBICORT 160-4.5 MCG/ACT AERO 2 puffs inhaled bid BUDESONIDE- FORMOTEROL FUMARATE 94789411487 No Longer Active Andre Barreto MD Active DICLOFENAC SODIUM 75 MG TBEC 1 tablet by mouth twice daily DICLOFENAC SODIUM 88961548316 No Longer Active Andre Barreto MD Active PROZAC 40 MG CAPS 1 cap by mouth at bedtime FLUOXETINE HCL 86329688014 No Longer Active Andre Barreto MD Active HYDROCODONE-ACETAMINOPHEN 5-325 MG TABS 1 po q 6hr PRN Pain HYDROCODONE-ACETAMINOPHEN 39843984024 No Longer Active Andre Barreto MD Active TRAMADOL HCL 50 MG TABS 2 po q 6 hrs prn TRAMADOL HCL 32218953492 Active Andre Barreto MD Active AMBIEN 5 MG TABS 1 po a hs prn ZOLPIDEM TARTRATE 85995730362 Active Andre Barreto MD Active HYDROCODONE-ACETAMINOPHEN 5-325 MG TABS 1 po q 6hr PRN Pain HYDROCODONE-ACETAMINOPHEN 5-325 MG TABS 002812 HYDROCODONE-ACETAMINOPHEN Inactive PROZAC 40 MG CAPS 1 cap by mouth at bedtime PROZAC 40 MG CAPS 487880 FLUOXETINE HCL Inactive DICLOFENAC SODIUM 75 MG TBEC 1 tablet by mouth twice daily DICLOFENAC SODIUM 75 MG TBEC 690624 DICLOFENAC SODIUM Inactive SYMBICORT 160-4.5 MCG/ACT AERO 2 puffs inhaled bid SYMBICORT 160-4.5 MCG/ACT AERO BUDESONIDE-FORMOTEROL FUMARATE Inactive ZOFRAN 4 MG TABS 1 po q6hr PRN Nausea ZOFRAN 4 MG TABS 320591 ONDANSETRON HCL Inactive BETAMETHASONE DIPROPIONATE 0.05 % OINT Apply to affected areas BID for up to 2 weeks BETAMETHASONE DIPROPIONATE 0.05 % OINT 098880 BETAMETHASONE DIPROPIONATE Inactive BENICAR HCT 40-25 MG TABS Take one by mouth daily BENICAR HCT 40-25 MG TABS 494900 OLMESARTAN MEDOXOMIL-HCTZ Inactive CIPRO 500 MG TAB 1 tablet by mouth twice daily CIPRO 500 MG TAB 532834 CIPROFLOXACIN HCL Inactive Advance Directives Directive Description [...] ... - Chemistry sodium, serum 140 mmol/L 816-220 7176/06/28 carbon dioxide, venous blood 32.4 mmol/L 21.0-32.0 potassium, serum 4.0 mmol/L 3.5-5.2 chloride, serum 101 mmol/L 98-107 blood glucose 108 mg/dL 65-110 urea nitrogen, blood 20 mg/dL 7-18 creatinine, serum 0.98 mg/dL 0.55-1.30 alanine aminotransferase (SGPT), serum 44 U/L 12-78 aspartate aminotransferase (SGOT), serum 27 U/L 15-37 calcium, serum 9.4 mg/dL 8.5-10.1 bilirubin, serum, total 0.30 mg/dL 0.00-1.00 cholesterol, serum 264 mg/dL 745-251 6077/06/28 triglyceride, serum, fasting 146 mg/dL 30-200 HDL [...] Panel - Chemistry sodium, serum 143 mmol/L 179-259 5602/09/27 carbon dioxide, venous blood 30.1 mmol/L 21.0-32.0 potassium, serum 3.9 mmol/L 3.5-5.2 chloride, serum 107 mmol/L 98-107 blood glucose 114 mg/dL 65-110 urea nitrogen, blood 14 mg/dL 7-18 creatinine, serum 0.79 mg/dL 0.55-1.30 alanine aminotransferase (SGPT), serum 44 U/L 12-78 aspartate aminotransferase (SGOT), serum 25 U/L 15-37 calcium, serum 8.5 mg/dL 8.5-10.1 bilirubin, serum, total 0.30 mg/dL 0.00-1.00 cholesterol, serum 152 mg/dL 401-137 0855/09/27 triglyceride, serum, fasting 85 mg/dL 30-200 HDL cholesterol, serum 59 mg/dL 32-96 LDL cholesterol, serum 76 mg/dL 0-130 Encounters Code Encounter Date Provider Facility CPT-71538 Level 4 Est. Patient 11:53:39 ACRYLIC FABRICATOR Andre Barreto MD [facility] CPT-22300 Level 4 Est. Patient 14:21:31 CDT Andre Barreto MD [facility] CPT-06117 Level 4 Est. Patient 15:24:17 CDT Andre Barreto MD [facility] CPT-57102 Level 3 Est. Patient 10:36:40 CDT Andre Barreto MD [facility] CPT-97759 Level 4 Est. Patient 11:27:43 CDT Andre Barreto MD [facility] CPT-50818 Level 3 Est. Patient 10:57:31 ACRYLIC FABRICATOR Andre Barreto MD [facility] CPT-26370 Level 3 Est. Patient 13:53:13 ACRYLIC FABRICATOR Andre Barreto MD [facility] CPT-62302 Level 3 Est. Patient 09:16:12 CDT Andre Barreto MD [facility] CPT-73098 Level 3 Est. Patient 14:50:35 CDT Andre Barreto MD [facility] Procedures Code Procedure Name Date Entry Date Standard Description CPT-85730 Venipuncture Draw Fee 14:11:36 CDT CPT-38521 Lipid - LAB USE ONLY 14:11:36 CDT CPT-12989 CMP - LAB USE ONLY 14:11:36 CDT CPT-G0438 Initial Annual Wellness Exam 13:29:06 CDT CPT-G0009 Administration of Pneumococcal Vaccine 13:26:57 CDT CPT-50187 Prevnar 13 Intramuscular Suspension 13:26:56 CDT 08/19 CPT-54966 Bone Density - XRAY USE ONLY 09:30:16 CDT CPT-Cryo Cryotherapy 08:59:26 ACRYLIC FABRICATOR CPT-Cryo Cryotherapy 08:46:02 CDT CPT-82491 Chest 2V Frontal and Lat 14:02:13 ACRYLIC FABRICATOR
--- OUTSIDE RECORDS SUMMARY | 2018-03-16 19:37 | XMS REPORT | Clinical Summary ---
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, supplemental oxygen Osteopenia [...] 1 daily for 3 days 03/27 PREDNISONE 36888753354 Active Solitario Howe MD Active BENZONATATE 200 MG ORAL CAPSULE 1 three times a day as needed for cough 03/27 BENZONATATE 92489715367 Active Solitario Howe MD Active ZITHROMAX Z-NEVAEH 250 MG ORAL TABLET 2 today and then 1 daily for 4 days 03/27 AZITHROMYCIN 70708647851 Active Solitario Howe MD Active ATORVASTATIN CALCIUM 40 MG ORAL TABLET 1 po qHS ATORVASTATIN CALCIUM 46075363713 Active Marcelle Key RMA Active CLOPIDOGREL BISULFATE 75 MG ORAL TABLET 1 po qd CLOPIDOGREL BISULFATE 37028643212 Active Andre Barreto MD Active FUROSEMIDE 20 MG ORAL TABLET 1 po qd PRN Edema FUROSEMIDE 10497199121 Active Andre Barreto MD Active PROAIR HFA 108 (90 Base) MCG/ACT INHALATION AEROSOL SOLUTION 2 puffs q4hr PRN Shortness of air/Wheezing ALBUTEROL SULFATE 00404638650 Active Andre Barreto MD Active ATORVASTATIN CALCIUM 80 MG ORAL TABLET 1 po qHS ATORVASTATIN CALCIUM 80755371114 No Longer Active Andre Barreto MD Active AMBIEN 5 MG ORAL TABLET 1 po qHS PRN Insomnia ZOLPIDEM TARTRATE 68224099638 Active Andre Barreto MD Active DETROL 2 MG ORAL TABLET 1 po qd TOLTERODINE TARTRATE 84640962015 Active Andre Barreto MD Active NITROGLYCERIN 0.4 MG SUBLINGUAL TABLET SUBLINGUAL 1 SL q5min PRN Chest pain up to 3 doses NITROGLYCERIN 23032508418 Active Andre Barreto MD Active TOPROL XL 50 MG ORAL TABLET EXTENDED RELEASE 24 HOUR 1 po qd METOPROLOL SUCCINATE 98897979990 Active Andre Barreto MD Active SYMBICORT 160-4.5 MCG/ACT INHALATION AEROSOL 2 puff BID BUDESONIDE-FORMOTEROL FUMARATE 36878020511 Active Cayla Flanagan [facility] Active FLUOXETINE HCL 40 MG ORAL CAPSULE 1 po qd FLUOXETINE HCL 68021483910 Active Andre Barreto MD Active BENICAR HCT 40-25 MG ORAL TABLET Take one by mouth daily OLMESARTAN MEDOXOMIL-HCTZ 52698077609 No Longer Active Andre Barreto MD Active LOSARTAN POTASSIUM-HCTZ 100-25 MG ORAL TABLET 1 po qd LOSARTAN POTASSIUM-HCTZ 01580533712 Active Andre Barreto MD Active BETAMETHASONE DIPROPIONATE 0.05 % EXTERNAL OINTMENT Apply to affected areas BID for up to 2 weeks BETAMETHASONE DIPROPIONATE 25087072692 No Longer Active Andre Barreto MD Active ZOFRAN 4 MG ORAL TABLET 1 po q6hr PRN Nausea ONDANSETRON HCL 12902160910 No Longer Active Andre Barreto MD Active CIPRO 500 MG ORAL TABLET 1 tablet by mouth twice daily CIPROFLOXACIN HCL 76127168373 No Longer Active Andre Barreto MD Active SYMBICORT 160-4.5 MCG/ACT INHALATION AEROSOL 2 puffs inhaled bid BUDESONIDE-FORMOTEROL FUMARATE 10907640338 No Longer Active Andre Barreto MD Active DICLOFENAC SODIUM 75 MG ORAL TABLET DELAYED RELEASE 1 tablet by mouth twice daily DICLOFENAC SODIUM 30667703651 No Longer Active Andre Barreto MD Active PROZAC 40 MG ORAL CAPSULE 1 cap by mouth at bedtime FLUOXETINE HCL 87097230713 No Longer Active Andre Barreto MD Active HYDROCODONE-ACETAMINOPHEN 5-325 MG ORAL TABLET 1 po q 6hr PRN Pain HYDROCODONE-ACETAMINOPHEN 80289933590 No Longer Active Andre Barreto MD Active TRAMADOL HCL 50 MG ORAL TABLET 2 po q 6 hrs prn TRAMADOL HCL 01166193737 Active Andre Barreto MD Active HYDROCODONE-ACETAMINOPHEN 5-325 MG ORAL TABLET 1 po q 6hr PRN Pain HYDROCODONE-ACETAMINOPHEN 5-325 MG ORAL TABLET 819797 HYDROCODONE- ACETAMINOPHEN Inactive PROZAC 40 MG ORAL CAPSULE 1 cap by mouth at bedtime PROZAC 40 MG ORAL CAPSULE 263273 FLUOXETINE HCL Inactive DICLOFENAC SODIUM 75 MG ORAL TABLET DELAYED RELEASE 1 tablet by mouth twice daily DICLOFENAC SODIUM 75 MG ORAL TABLET DELAYED RELEASE 170239 DICLOFENAC SODIUM Inactive SYMBICORT 160-4.5 MCG/ACT INHALATION AEROSOL 2 puffs inhaled bid SYMBICORT 160-4.5 MCG/ACT INHALATION AEROSOL BUDESONIDE-FORMOTEROL FUMARATE Inactive ZOFRAN 4 MG ORAL TABLET 1 po q6hr PRN Nausea ZOFRAN 4 MG ORAL TABLET 469794 ONDANSETRON HCL Inactive BETAMETHASONE DIPROPIONATE 0.05 % EXTERNAL OINTMENT Apply to affected areas BID for up to 2 weeks BETAMETHASONE DIPROPIONATE 0.05 % EXTERNAL OINTMENT 030410 BETAMETHASONE DIPROPIONATE Inactive BENICAR HCT 40-25 MG ORAL TABLET Take one by mouth daily BENICAR HCT 40-25 MG ORAL TABLET 201464 OLMESARTAN MEDOXOMIL-HCTZ Inactive ATORVASTATIN CALCIUM 80 MG ORAL TABLET 1 po qHS ATORVASTATIN CALCIUM 80 MG ORAL TABLET 603686 ATORVASTATIN CALCIUM Inactive CIPRO 500 MG ORAL TABLET 1 tablet by mouth twice daily CIPRO 500 MG ORAL TABLET 134483 CIPROFLOXACIN HCL Inactive Advance Directives Directive Description [...] 6.2 % 4.3-6.0 cholesterol, serum 229 mg/dL 329-590 7973/07/24 triglyceride, serum, fasting 106 mg/dL 30-200 HDL cholesterol, serum 60 mg/dL 32-60 LDL cholesterol, serum 148 mg/dL 0-130 sodium, serum 139 mmol/L 545-765 3653/07/24 carbon dioxide, venous blood 34.8 mmol/L 21.0-32.0 [...] Panel - Chemistry cholesterol, serum 275 mg/dL 850-569 2674/11/07 triglyceride, serum, fasting 166 mg/dL 30-200 HDL cholesterol, serum 62 mg/dL 32-60 LDL cholesterol, serum 180 mg/dL 0-130 sodium, serum 141 mmol/L 289-512 3384/11/07 carbon dioxide, venous blood 26.3 mmol/L 21.0-32.0 [...] 0-19 Encounters Code Encounter Date Provider Facility CPT-18957 Level 3 Est. Patient 13:01:07 BINDING PRINTER Solitario Howe MD [facility] CPT-58875 Level 4 Est. Patient 10:26:48 BINDING PRINTER Andre Barreto MD [facility] CPT-93778 Level 4 Est. Patient 09:45:06 CDT Andre Barreto MD [facility] CPT-83616 Level 4 Est. Patient 11:53:39 BINDING PRINTER Andre Barreto MD [facility] CPT-38948 Level 4 Est. Patient 14:21:31 CDT Andre Barreto MD [facility] CPT-33727 Level 4 Est. Patient 15:24:17 CDT Andre Barreto MD [facility] CPT-46062 Level 3 Est. Patient 10:36:40 CDT Andre Barreto MD [facility] CPT-49531 Level 4 Est. Patient 11:27:43 CDT Andre Barreto MD [facility] CPT-74025 Level 3 Est. Patient 10:57:31 BINDING PRINTER Andre Barreto MD [facility] CPT-12225 Level 3 Est. Patient 13:53:13 BINDING PRINTER Andre Barreto MD [facility] CPT-17180 Level 3 Est. Patient 09:16:12 CDT Andre Barreto MD [facility] CPT-99846 Level 3 Est. Patient 14:50:35 CDT Andre Barreto MD [facility] Procedures Code Procedure Name Date Entry Date Standard Description CPT-28491 First Vx - Ix admin for Medicare patients 13:56:44 BINDING PRINTER CPT-63879 Zostavax Subcutaneous Solution Reconstituted 97382 UNT/0.65ML 12/22 13:56:44 BINDING PRINTER CPT-G0009 Administration of Pneumococcal Vaccine 10:12:50 CDT CPT-09278 Pneumovax 23 Injection Injectable 25 MCG/0.5ML 10:12:50 CDT CPT-G0439 Subsequent Annual Wellness Exam 09:49:25 CDT CPT-18181 First Vx - Ix admin for Medicare patients 17:55:11 BINDING PRINTER CPT-20837 Fluzone High-Dose Intramuscular Suspension 17:55:11 BINDING PRINTER CPT-59723 Venipuncture Draw Fee 14:11:36 CDT CPT-35140 Lipid - LAB USE ONLY 14:11:36 CDT CPT-31143 CMP - LAB USE ONLY 14:11:36 CDT CPT-G0438 Initial Annual Wellness Exam 13:29:06 CDT CPT-G0009 Administration of Pneumococcal Vaccine 13:26:57 CDT CPT-99197 Prevnar 13 Intramuscular Suspension 13:26:56 CDT 08/19 CPT-95959 Bone Density - XRAY USE ONLY 09:30:16 CDT CPT-Cryo Cryotherapy 08:59:26 BINDING PRINTER CPT-Cryo Cryotherapy 08:46:02 CDT CPT-58539 Chest 2V Frontal and Lat 14:02:13 BINDING PRINTER
--- OUTSIDE RECORDS SUMMARY | 2018-03-16 19:38 | XMS REPORT | Clinical Summary ---
Author Author Admin, E Organization [facility] Address Unknown Phone Unavailable Allergies, Adverse Reactions, [...] unspecified type of vessel, [place] or graft Obstructive sleep apnea 327.23 Active [...] MG TABS 1 po qHS ATORVASTATIN CALCIUM 52259385677 Active Andre Barreto MD Active SYMBICORT 160-4.5 MCG/ACT AERO 2 puff BID BUDESONIDE- FORMOTEROL FUMARATE 75858093281 Active Andre Barreto MD Active PROAIR HFA 108 (90 BASE) MCG/ACT AERS 2 puffs four times a day as needed 2015 ALBUTEROL SULFATE 17835166062 Active Andre Barreto MD Active FLUOXETINE HCL 40 MG ORAL CAPS 1 po qd FLUOXETINE HCL 24116023559 Active Andre Barreto MD Active DETROL 2 MG ORAL TABS one tab daily TOLTERODINE TARTRATE 81637270817 Active Andre Barreto MD Active BENICAR HCT 40-25 MG TABS Take one by mouth daily OLMESARTAN MEDOXOMIL-HCTZ 22459173027 No Longer Active Andre Barreto MD Active [place]AN POTASSIUM-HCTZ 100-25 MG TABS 1 po qd LOSARTAN POTASSIUM-HCTZ 43108456518 Active Andre Barreto MD Active BETAMETHASONE DIPROPIONATE 0.05 % OINT Apply to affected areas BID for up to 2 weeks BETAMETHASONE DIPROPIONATE 04430284956 No Longer Active Andre Barreto MD Active ZOFRAN 4 MG TABS 1 po q6hr PRN Nausea ONDANSETRON HCL 39983313995 No Longer Active Andre Barreto MD Active CIPRO 500 MG TAB 1 tablet by mouth twice daily CIPROFLOXACIN HCL 03638778473 No Longer Active Andre Barreto MD Active SYMBICORT 160-4.5 MCG/ACT AERO 2 puffs inhaled bid BUDESONIDE- FORMOTEROL FUMARATE 96912874703 No Longer Active Andre Barreto MD Active LASIX 20 MG TAB 1 tablet by mouth daily PRN FUROSEMIDE 46970201370 Active Andre Barreto MD Active TOPROL XL 25 MG [id number] Take one by mouth daily METOPROLOL SUCCINATE 61920028412 Active Andre Barreto MD Active PLAVIX 75 MG TABS 1 tablet by mouth daily CLOPIDOGREL BISULFATE 27326968153 Active Andre Barreto MD Active NITROSTAT 0.4 MG SL TAB disolve 1 under tongue repeat if needed NITROGLYCERIN 68116891745 Active Andre Barreto MD Active DICLOFENAC SODIUM 75 MG TBEC 1 tablet by mouth twice daily DICLOFENAC SODIUM 85707559582 No Longer Active Andre Barreto MD Active PROZAC 40 MG CAPS 1 cap by mouth at bedtime FLUOXETINE HCL 07597730920 No Longer Active Andre Barreto MD Active HYDROCODONE-ACETAMINOPHEN 5-325 MG TABS 1 po q 6hr PRN Pain HYDROCODONE-ACETAMINOPHEN 98299980119 No Longer Active Andre Barreto MD Active TRAMADOL HCL 50 MG TABS 2 po q 6 hrs prn TRAMADOL HCL 92413165950 Active David King TIMBER BUYER Active AMBIEN 5 MG TABS 1 po a hs prn ZOLPIDEM TARTRATE 14479875460 Active Andre Barreto MD Active HYDROCODONE-ACETAMINOPHEN 5-325 MG TABS 1 po q 6hr PRN Pain HYDROCODONE-ACETAMINOPHEN 5-325 MG TABS 938849 HYDROCODONE-ACETAMINOPHEN Inactive PROZAC 40 MG CAPS 1 cap by mouth at bedtime PROZAC 40 MG CAPS 237039 FLUOXETINE HCL Inactive DICLOFENAC SODIUM 75 MG TBEC 1 tablet by mouth twice daily DICLOFENAC SODIUM 75 MG TBEC 072171 DICLOFENAC SODIUM Inactive SYMBICORT 160-4.5 MCG/ACT AERO 2 puffs inhaled bid SYMBICORT 160-4.5 MCG/ACT AERO BUDESONIDE-FORMOTEROL FUMARATE Inactive ZOFRAN 4 MG TABS 1 po q6hr PRN Nausea ZOFRAN 4 MG TABS 747587 ONDANSETRON HCL Inactive BETAMETHASONE DIPROPIONATE 0.05 % OINT Apply to affected areas BID for up to 2 weeks BETAMETHASONE DIPROPIONATE 0.05 % OINT 833974 BETAMETHASONE DIPROPIONATE Inactive BENICAR HCT 40-25 MG TABS Take one by mouth daily BENICAR HCT 40-25 MG TABS OLMESARTAN MEDOXOMIL-HCTZ Inactive CIPRO 500 MG TAB 1 tablet by mouth twice daily CIPRO 500 MG TAB 433621 CIPROFLOXACIN HCL Inactive Advance Directives Directive Description Start Date DISCUSSED WITH PATIENT -- NO DECISION MADE Vital Signs Date Name Value Unit Range Description blood pressure, diastolic - 8462-4 72 mm[Hg] [...] ... - Chemistry sodium, serum 140 mmol/L 311-767 2906/06/28 carbon dioxide, venous blood 32.4 mmol/L 21.0-32.0 potassium, serum 4.0 mmol/L 3.5-5.2 chloride, serum 101 mmol/L 98-107 blood glucose 108 mg/dL 65-110 urea nitrogen, blood 20 mg/dL 7-18 creatinine, serum 0.98 mg/dL 0.55-1.30 alanine aminotransferase (SGPT), serum 44 U/L 12-78 aspartate aminotransferase (SGOT), serum 27 U/L 15-37 calcium, serum 9.4 mg/dL 8.5-10.1 bilirubin, serum, total 0.30 mg/dL 0.00-1.00 cholesterol, serum 264 mg/dL 720-840 6575/06/28 triglyceride, serum, fasting 146 mg/dL 30-200 HDL [...] 0-19 Encounters Code Encounter Date Provider Facility CPT-12856 Level 4 Est. Patient 15:24:17 CDT Andre Barreto MD [facility] CPT-15708 Level 3 Est. Patient 10:36:40 CDT Andre Barreto MD [facility] CPT-43812 Level 4 Est. Patient 11:27:43 CDT Andre Barreto MD [facility] CPT-09974 Level 3 Est. Patient 10:57:31 MICA INSPECTOR Andre Barreto MD [facility] CPT-81817 Level 3 Est. Patient 13:53:13 MICA INSPECTOR Andre Barreto MD [facility] CPT-24266 Level 3 Est. Patient 09:16:12 CDT Andre Barreto MD [facility] CPT-30026 Level 3 Est. Patient 14:50:35 CDT Andre Barreto MD [facility] Procedures Code Procedure Name Date Entry Date Standard Description CPT-G0438 Initial Annual Wellness Exam 13:29:06 CDT CPT-G0009 Administration of Pneumococcal Vaccine 13:26:57 CDT CPT-86690 Prevnar 13 Intramuscular Suspension 13:26:56 CDT 08/19 CPT-49344 Bone Density - XRAY USE ONLY 09:30:16 CDT CPT-Cryo Cryotherapy 08:59:26 MICA INSPECTOR CPT-Cryo Cryotherapy 08:46:02 CDT CPT-59185 Chest 2V Frontal and Lat 14:02:13 MICA INSPECTOR
--- OUTSIDE RECORDS SUMMARY | 2018-03-16 19:38 | XMS REPORT | Clinical Summary ---
Author Author Admin, QIE Organization [facility] Address Unknown Phone Unavailable Allergies, Adverse [...] Coronary atherosclerosis of unspecified type of vessel, [place] or graft OBSTRUCTIVE SLEEP APNEA 327.23 Active [...] for up to 2 weeks BETAMETHASONE DIPROPIONATE 41269119495 Active Andre Barreto MD Active LIPITOR 40 MG TAB Take 1 tab by mouth daily ATORVASTATIN CALCIUM 90428498062 Active Andre Barreto MD Active ZOFRAN 4 MG TABS 1 po q6hr PRN Nausea ONDANSETRON HCL 31910384946 No Longer Active Andre Barreto MD Active CIPRO 500 MG TAB 1 tablet by mouth twice daily CIPROFLOXACIN HCL 39733611536 No Longer Active Andre Barreto MD Active SYMBICORT 160-4.5 MCG/ACT AERO 2 puffs inhaled bid BUDESONIDE- FORMOTEROL FUMARATE 29807685735 No Longer Active Andre Barreto MD Active LASIX 20 MG TAB 1 tablet by mouth daily PRN FUROSEMIDE 00922999912 Active Andre Barreto MD Active TOPROL XL 25 MG [id number] Take one by mouth daily METOPROLOL SUCCINATE 94006952375 Active Andre Barreto MD Active PLAVIX 75 MG TABS 1 tablet by mouth daily CLOPIDOGREL BISULFATE 36123861509 Active Andre Barreto MD Active NITROSTAT 0.4 MG SL TAB disolve 1 under tongue repeat if needed NITROGLYCERIN 91539717810 Active Andre Barreto MD Active DICLOFENAC SODIUM 75 MG TBEC 1 tablet by mouth twice daily DICLOFENAC SODIUM 49661862196 No Longer Active Andre Barreto MD Active FLUOXETINE HCL 20 MG CAPS TAKE 3 CAPSULES BY MOUTH ONCE DAILY. FLUOXETINE HCL 46667780838 Active Andre Barreto MD Active PROZAC 40 MG CAPS 1 cap by mouth at bedtime FLUOXETINE HCL 72185997606 No Longer Active Andre Barreto MD Active HYDROCODONE-ACETAMINOPHEN 5-325 MG TABS 1 po q 6hr PRN Pain HYDROCODONE-ACETAMINOPHEN 05164522995 No Longer Active Andre Barreto MD Active TRAMADOL HCL 50 MG TABS 2 po q 6 hrs prn TRAMADOL HCL 11127814620 Active Andre Barreto MD Active AMBIEN 5 MG TABS 1 po a hs prn ZOLPIDEM TARTRATE 70429645577 Active Andre Barreto MD Active BENICAR HCT 40-25 MG TABS Take one by mouth daily OLMESARTAN MEDOXOMIL- HCTZ 47515914018 Active Andre Barreto MD Active CIPRO 500 MG TAB 1 tablet by mouth twice daily CIPRO 500 MG TAB 548135 CIPROFLOXACIN HCL Inactive ZOFRAN 4 MG TABS 1 po q6hr PRN Nausea ZOFRAN 4 MG TABS 573317 ONDANSETRON HCL Inactive DICLOFENAC SODIUM 75 MG TBEC 1 tablet by mouth twice daily DICLOFENAC SODIUM 75 MG TBEC 820608 DICLOFENAC SODIUM Inactive PROZAC 40 MG CAPS 1 cap by mouth at bedtime PROZAC 40 MG CAPS 581370 FLUOXETINE HCL Inactive HYDROCODONE-ACETAMINOPHEN 5-325 MG TABS 1 po q 6hr PRN Pain HYDROCODONE-ACETAMINOPHEN 5-325 MG TABS 207578 HYDROCODONE-ACETAMINOPHEN Inactive SYMBICORT 160-4.5 MCG/ACT AERO 2 puffs inhaled bid SYMBICORT 160-4.5 MCG/ACT AERO BUDESONIDE-FORMOTEROL FUMARATE Inactive Vital Signs Date Name Value Unit [...] W/DIFF - Chemistry sodium, serum 145 mmol/L 498-554 0297/12/19 potassium, serum 4.3 mmol/L 3.5-5.2 chloride, serum 104 mmol/L 98-107 carbon dioxide, venous blood 29.9 mmol/L 21.0-32.0 blood glucose 121 mg/dL 65-110 urea nitrogen, blood 17 mg/dL 7-18 creatinine, serum 1.20 mg/dL 0.60-1.30 alanine aminotransferase (SGPT), serum 40 U/L 12-78 aspartate aminotransferase (SGOT), serum 25 U/L 15-37 calcium, serum 9.2 mg/dL 8.5-10.1 bilirubin, serum, total 0.50 mg/dL 0.00-1.00 cholesterol, serum 174 mg/dL 300-689 5440/12/19 triglyceride, serum, fasting 129 mg/dL 30-200 HDL [...] 4.3-6.0 Encounters Code Encounter Date Provider Facility CPT-02463 Level 3 Est. Patient 10:36:40 CDT Andre Barreto MD [facility] CPT-34635 Level 4 Est. Patient 11:27:43 CDT Andre Barreto MD [facility] CPT-72889 Level 3 Est. Patient 10:57:31 CATALOG LIBRARY ASSISTANT Andre Barreto MD [facility] CPT-79272 Level 3 Est. Patient 13:53:13 CATALOG LIBRARY ASSISTANT Andre Barreto MD [facility] CPT-54428 Level 3 Est. Patient 09:16:12 CDT Andre Barreto MD [facility] CPT-95794 Level 3 Est. Patient 14:50:35 CDT Andre Barreto MD [facility] Procedures Code Procedure Name Date Entry Date Standard Description CPT-Cryo Cryotherapy 08:59:26 CATALOG LIBRARY ASSISTANT CPT-Cryo Cryotherapy 08:46:02 CDT CPT-77938 Chest 2V Frontal and Lat 14:02:13 CATALOG LIBRARY ASSISTANT
--- OUTSIDE RECORDS SUMMARY | 2018-03-16 19:39 | XMS REPORT | Clinical Summary ---
Author Author Admin, EDUARDO Organization [facility] Address Unknown Phone Unavailable Allergies, Adverse Reactions, [...] Coronary atherosclerosis of unspecified type of vessel, [place] or graft Obstructive sleep apnea 327.23 Active Andre Barreto MD Obstructive sleep apnea (adult) (pediatric) Health screening V70.0 Active Andre Barreto MD Routine general medical examination at a health care facility Fever 780.60 Resolved Andre Barreto MD Fever, unspecified Actinic keratosis 702.0 Active Andre Barreto MD Actinic keratosis Seborrheic keratosis 702.19 Active nAdre Barreto MD Other seborrheic keratosis Skin tag [...] DYSPNEA ICD-786.05 Inactive Andre Barreto MD 2012 Skin tag ICD-701.9 Inactive Andre Barreto MD 2014 Dyshidrotic eczema, hands ICD-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 Inactive Andre Barreto MD Weakness, muscle ICD-728.87 Inactive Andre Barreto MD Fever ICD-780.60 Inactive Andre Barreto MD 05/23 Medication List Medication Instructions Start Date Stop Date Generic Name ND Status Provider Patient Instruction SYMBICORT 160-4.5 MCG/ACT AERO 2 puff BID BUDESONIDE- FORMOTEROL FUMARATE 20361775626 Active Andre Barreto MD Active PROAIR HFA 108 (90 BASE) MCG/ACT AERS 2 puffs four times a day as needed 2015 ALBUTEROL SULFATE 40224648648 Active Andre Barreto MD Active FLUOXETINE HCL 40 MG ORAL CAPS 1 po qd FLUOXETINE HCL 67092660048 Active Andre Barreto MD Active DETROL 2 MG ORAL TABS one tab daily TOLTERODINE TARTRATE 05139158840 Active Andre Barreto MD Active BENICAR HCT 40-25 MG TABS Take one by mouth daily OLMESARTAN MEDOXOMIL-HCTZ 38865345771 No Longer Active Andre Barreto MD Active LOSARTAN POTASSIUM-HCTZ 100-25 MG TABS 1 po qd LOSARTAN POTASSIUM-HCTZ 70120572735 Active Andre Barreto MD Active BETAMETHASONE DIPROPIONATE 0.05 % OINT Apply to affected areas BID for up to 2 weeks BETAMETHASONE DIPROPIONATE 93177115989 No Longer Active Andre Barreto MD Active LIPITOR 40 MG TAB Take 1 tab by mouth daily ATORVASTATIN CALCIUM 66641222019 Active Andre Barreto MD Active ZOFRAN 4 MG TABS 1 po q6hr PRN Nausea ONDANSETRON HCL 08359364384 No Longer Active Andre Barreto MD Active CIPRO 500 MG TAB 1 tablet by mouth twice daily CIPROFLOXACIN HCL 59001833048 No Longer Active Andre Barreto MD Active SYMBICORT 160-4.5 MCG/ACT AERO 2 puffs inhaled bid BUDESONIDE- FORMOTEROL FUMARATE 45873850080 No Longer Active Andre Barreto MD Active LASIX 20 MG TAB 1 tablet by mouth daily PRN FUROSEMIDE 04638945168 Active Andre Barreto MD Active TOPROL XL 25 MG [id number] Take one by mouth daily METOPROLOL SUCCINATE 28595486273 Active Andre Barreto MD Active PLAVIX 75 MG TABS 1 tablet by mouth daily CLOPIDOGREL BISULFATE 97833132109 Active Andre Barreto MD Active NITROSTAT 0.4 MG SL TAB disolve 1 under tongue repeat if needed NITROGLYCERIN 46621550968 Active Andre Barreto MD Active DICLOFENAC SODIUM 75 MG TBEC 1 tablet by mouth twice daily DICLOFENAC SODIUM 57217402197 No Longer Active Anrde Barreto MD Active PROZAC 40 MG CAPS 1 cap by mouth at bedtime FLUOXETINE HCL 06187053988 No Longer Active Andre Barreto MD Active HYDROCODONE-ACETAMINOPHEN 5-325 MG TABS 1 po q 6hr PRN Pain HYDROCODONE-ACETAMINOPHEN 24554910115 No Longer Active Andre Barreto MD Active TRAMADOL HCL 50 MG TABS 2 po q 6 hrs prn TRAMADOL HCL 91048647646 Active David 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 AMBIEN 5 MG TABS 1 po a hs prn ZOLPIDEM TARTRATE 40830243487 Active Andre Barreto MD Active HYDROCODONE-ACETAMINOPHEN 5-325 MG TABS 1 po q 6hr PRN Pain HYDROCODONE-ACETAMINOPHEN 5-325 MG TABS 804298 HYDROCODONE-ACETAMINOPHEN Inactive PROZAC 40 MG CAPS 1 cap by mouth at bedtime PROZAC 40 MG CAPS 942317 FLUOXETINE HCL Inactive DICLOFENAC SODIUM 75 MG TBEC 1 tablet by mouth twice daily DICLOFENAC SODIUM 75 MG TBEC 588448 DICLOFENAC SODIUM Inactive SYMBICORT 160-4.5 MCG/ACT AERO 2 puffs inhaled bid SYMBICORT 160-4.5 MCG/ACT AERO BUDESONIDE-FORMOTEROL FUMARATE Inactive ZOFRAN 4 MG TABS 1 po q6hr PRN Nausea ZOFRAN 4 MG TABS 341727 ONDANSETRON HCL Inactive BETAMETHASONE DIPROPIONATE 0.05 % OINT Apply to affected areas BID for up to 2 weeks BETAMETHASONE DIPROPIONATE 0.05 % OINT 151926 BETAMETHASONE DIPROPIONATE Inactive BENICAR HCT 40-25 MG TABS Take one by mouth daily BENICAR HCT 40-25 MG TABS OLMESARTAN MEDOXOMIL-HCTZ Inactive CIPRO 500 MG TAB 1 tablet by mouth twice daily CIPRO 500 MG TAB 964695 CIPROFLOXACIN HCL Inactive Vital Signs Date Name Value Unit Range Description blood pressure, diastolic - 8462-4 71 mm[Hg] BP pat blood pressure, systolic - 8480-6 131 mm[Hg] BP sys pulse rate E&M - 8867-4 56 /min Heart rate temperature E&M 96.5 [degF] Body temperature weight E&M - 3141-9 281 [lb_av] Weight Measured Encounters Code Encounter Date Provider Facility CPT-00765 Level 4 Est. Patient 15:24:17 CDT Andre Barreto MD [facility] CPT-37814 Level 3 Est. Patient 10:36:40 CDT Andre Barreto MD [facility] CPT-53764 Level 4 Est. Patient 11:27:43 CDT Andre Barreto MD [facility] CPT-13711 Level 3 Est. Patient 10:57:31 ROLLER STAKER Andre Barreto MD [facility] CPT-45138 Level 3 Est. Patient 13:53:13 ROLLER STAKER Andre Barreto MD [facility] CPT-34363 Level 3 Est. Patient 09:16:12 CDT Andre Barreto MD [facility] CPT-82312 Level 3 Est. Patient 14:50:35 CDT Andre Barreto MD [facility] Procedures Code Procedure Name Date Entry Date Standard Description CPT-49565 Bone Density - XRAY USE ONLY 09:30:16 CDT CPT-Cryo Cryotherapy 08:59:26 ROLLER STAKER CPT-Cryo Cryotherapy 08:46:02 CDT CPT-50608 Chest 2V Frontal and Lat 14:02:13 ROLLER STAKER
--- OUTSIDE RECORDS SUMMARY | 2018-03-16 19:39 | XMS REPORT | Clinical Summary ---
Author Author Admin, QIE Organization [facility] Address Unknown Phone Unavailable Allergies, Adverse Reactions, [...] Coronary atherosclerosis of unspecified type of vessel, [place] or graft OBSTRUCTIVE SLEEP APNEA 327.23 Active [...] for up to 2 weeks BETAMETHASONE DIPROPIONATE 08548171224 Active Andre Barreto MD Active LIPITOR 40 MG TAB Take 1 tab by mouth daily ATORVASTATIN CALCIUM 95546404656 Active Andre Barreto MD Active ZOFRAN 4 MG TABS 1 po q6hr PRN Nausea ONDANSETRON HCL 68662578829 No Longer Active Andre Barreto MD Active CIPRO 500 MG TAB 1 tablet by mouth twice daily CIPROFLOXACIN HCL 75140611690 No Longer Active Andre Barreto MD Active SYMBICORT 160-4.5 MCG/ACT AERO 2 puffs inhaled bid BUDESONIDE- FORMOTEROL FUMARATE 90761342559 No Longer Active Andre Barreto MD Active LASIX 20 MG TAB 1 tablet by mouth daily PRN FUROSEMIDE 98411572184 Active Andre Barreto MD Active TOPROL XL 25 MG [id number] Take one by mouth daily METOPROLOL SUCCINATE 74516349781 Active Andre Barreto MD Active PLAVIX 75 MG TABS 1 tablet by mouth daily CLOPIDOGREL BISULFATE 94274589991 Active Andre Barreto MD Active NITROSTAT 0.4 MG SL TAB disolve 1 under tongue repeat if needed NITROGLYCERIN 26511150235 Active Adnre Barreto MD Active DICLOFENAC SODIUM 75 MG TBEC 1 tablet by mouth twice daily DICLOFENAC SODIUM 66421338222 No Longer Active Andre Barreto MD Active FLUOXETINE HCL 20 MG CAPS TAKE 3 CAPSULES BY MOUTH ONCE DAILY. FLUOXETINE HCL 07147083797 Active Andre Barreto MD Active PROZAC 40 MG CAPS 1 cap by mouth at bedtime FLUOXETINE HCL 01801940213 No Longer Active Andre Barreto MD Active HYDROCODONE-ACETAMINOPHEN 5-325 MG TABS 1 po q 6hr PRN Pain HYDROCODONE-ACETAMINOPHEN 26835980617 No Longer Active Andre Barreto MD Active TRAMADOL HCL 50 MG TABS 2 po q 6 hrs prn TRAMADOL HCL 95662560588 Active Andre Barreto MD Active AMBIEN 5 MG TABS 1 po a hs prn ZOLPIDEM TARTRATE 39157849960 Active Andre Barreto MD Active BENICAR HCT 40-25 MG TABS Take one by mouth daily OLMESARTAN MEDOXOMIL- HCTZ 03562523633 Active Andre Barreto MD Active HYDROCODONE-ACETAMINOPHEN 5-325 MG TABS 1 po q 6hr PRN Pain HYDROCODONE-ACETAMINOPHEN 5-325 MG TABS 921966 HYDROCODONE-ACETAMINOPHEN Inactive PROZAC 40 MG CAPS 1 cap by mouth at bedtime PROZAC 40 MG CAPS 399490 FLUOXETINE HCL Inactive DICLOFENAC SODIUM 75 MG TBEC 1 tablet by mouth twice daily DICLOFENAC SODIUM 75 MG TBEC 537919 DICLOFENAC SODIUM Inactive SYMBICORT 160-4.5 MCG/ACT AERO 2 puffs inhaled bid SYMBICORT 160-4.5 MCG/ACT AERO BUDESONIDE-FORMOTEROL FUMARATE Inactive ZOFRAN 4 MG TABS 1 po q6hr PRN Nausea ZOFRAN 4 MG TABS 174968 ONDANSETRON HCL Inactive CIPRO 500 MG TAB 1 tablet by mouth twice daily CIPRO 500 MG TAB 562869 CIPROFLOXACIN HCL Inactive Vital Signs Date Name [...] E&M - 3141-9 270.1 [lb_av] Weight Measured Diagnostic Results Date Name Value Unit Range Description Lab Report: HGBA1C - Chemistry hemoglobin A1C, blood, as % of total hemoglobin 6.0 % 4.3-6.0 Encounters Code Encounter Date Provider Facility CPT-38238 Level 3 Est. Patient 10:36:40 CDT Andre Barreto MD [facility] CPT-90772 Level 4 Est. Patient 11:27:43 CDT Andre Barreto MD [facility] CPT-47523 Level 3 Est. Patient 10:57:31 RAVELER Andre Barreto MD [facility] CPT-10999 Level 3 Est. Patient 13:53:13 RAVELER Andre Barreto MD [facility] CPT-34383 Level 3 Est. Patient 09:16:12 CDT Andre Barreto MD [facility] CPT-70734 Level 3 Est. Patient 14:50:35 CDT Andre Barreto MD [facility] Procedures Code Procedure Name Date Entry Date Standard Description CPT-Cryo Cryotherapy 08:59:26 RAVELER CPT-Cryo Cryotherapy 08:46:02 CDT CPT-36843 Chest 2V Frontal and Lat 14:02:13 RAVELER
--- OUTSIDE RECORDS SUMMARY | 2018-03-16 19:39 | XMS REPORT | Clinical Summary ---
Author Author Admin, E Organization [facility] [facility] [facility] Address Unknown Phone Unavailable Allergies, Adverse [...] Coronary atherosclerosis of unspecified type of vessel, [place] or graft Obstructive sleep apnea 327.23 Active [...] ORAL TABLET 1 po qHS ATORVASTATIN CALCIUM 95463705864 Active Marcelle Yesi A Active CLOPIDOGREL BISULFATE 75 MG ORAL TABLET 1 po qd CLOPIDOGREL BISULFATE 57944327200 Active Andre Barreto MD Active FUROSEMIDE 20 MG ORAL TABLET 1 po qd PRN Edema FUROSEMIDE 50314514450 Active Andre Barreto MD Active PROAIR HFA 108 (90 Base) MCG/ACT INHALATION AEROSOL SOLUTION 2 puffs q4hr PRN Shortness of air/Wheezing ALBUTEROL SULFATE 73158633150 Active Andre Barreto MD Active ATORVASTATIN CALCIUM 80 MG ORAL TABLET 1 po qHS ATORVASTATIN CALCIUM 37534256210 No Longer Active Andre Barreto MD Active AMBIEN 5 MG ORAL TABLET 1 po qHS PRN Insomnia ZOLPIDEM TARTRATE 21676559732 Active Andre Barreto MD Active DETROL 2 MG ORAL TABLET 1 po qd TOLTERODINE TARTRATE 75263781053 Active Andre Barreto MD Active NITROGLYCERIN 0.4 MG SUBLINGUAL TABLET SUBLINGUAL 1 SL q5min PRN Chest pain up to 3 doses NITROGLYCERIN 47623134979 Active Andre Barreto MD Active TOPROL XL 50 MG ORAL TABLET EXTENDED RELEASE 24 HOUR 1 po qd METOPROLOL SUCCINATE 54459134768 Active Andre Barreto MD Active SYMBICORT 160-4.5 MCG/ACT INHALATION AEROSOL 2 puff BID BUDESONIDE-FORMOTEROL FUMARATE 74077036777 Active Cayla Flanagan [facility] Active FLUOXETINE HCL 40 MG ORAL CAPSULE 1 po qd FLUOXETINE HCL 21581272615 Active Andre Barreto MD Active BENICAR HCT 40-25 MG ORAL TABLET Take one by mouth daily OLMESARTAN MEDOXOMIL-HCTZ 50069221456 No Longer Active Andre Barreto MD Active LOSARTAN POTASSIUM-HCTZ 100-25 MG ORAL TABLET 1 po qd LOSARTAN POTASSIUM-HCTZ 49372988255 Active Andre Barreto MD Active BETAMETHASONE DIPROPIONATE 0.05 % EXTERNAL OINTMENT Apply to affected areas BID for up to 2 weeks BETAMETHASONE DIPROPIONATE 60522729625 No Longer Active Andre Barreto MD Active ZOFRAN 4 MG ORAL TABLET 1 po q6hr PRN Nausea ONDANSETRON HCL 71594024877 No Longer Active Andre Barreto MD Active CIPRO 500 MG ORAL TABLET 1 tablet by mouth twice daily CIPROFLOXACIN HCL 44376908623 No Longer Active Andre Barreto MD Active SYMBICORT 160-4.5 MCG/ACT INHALATION AEROSOL 2 puffs inhaled bid BUDESONIDE-FORMOTEROL FUMARATE 23408861919 No Longer Active Andre Barreto MD Active DICLOFENAC SODIUM 75 MG ORAL TABLET DELAYED RELEASE 1 tablet by mouth twice daily DICLOFENAC SODIUM 22382909219 No Longer Active Andre Barreto MD Active PROZAC 40 MG ORAL CAPSULE 1 cap by mouth at bedtime FLUOXETINE HCL 59421845797 No Longer Active Andre Barreto MD Active HYDROCODONE-ACETAMINOPHEN 5-325 MG ORAL TABLET 1 po q 6hr PRN Pain HYDROCODONE-ACETAMINOPHEN 85465470250 No Longer Active Andre Barreto MD Active TRAMADOL HCL 50 MG ORAL TABLET 2 po q 6 hrs prn TRAMADOL HCL 02452499851 Active Andre Barreto MD Active HYDROCODONE-ACETAMINOPHEN 5-325 MG ORAL TABLET 1 po q 6hr PRN Pain HYDROCODONE-ACETAMINOPHEN 5-325 MG ORAL TABLET 179155 HYDROCODONE- ACETAMINOPHEN Inactive PROZAC 40 MG ORAL CAPSULE 1 cap by mouth at bedtime PROZAC 40 MG ORAL CAPSULE 351973 FLUOXETINE HCL Inactive DICLOFENAC SODIUM 75 MG ORAL TABLET DELAYED RELEASE 1 tablet by mouth twice daily DICLOFENAC SODIUM 75 MG ORAL TABLET DELAYED RELEASE 237822 DICLOFENAC SODIUM Inactive SYMBICORT 160-4.5 MCG/ACT INHALATION AEROSOL 2 puffs inhaled bid SYMBICORT 160-4.5 MCG/ACT INHALATION AEROSOL BUDESONIDE-FORMOTEROL FUMARATE Inactive ZOFRAN 4 MG ORAL TABLET 1 po q6hr PRN Nausea ZOFRAN 4 MG ORAL TABLET 448033 ONDANSETRON HCL Inactive BETAMETHASONE DIPROPIONATE 0.05 % EXTERNAL OINTMENT Apply to affected areas BID for up to 2 weeks BETAMETHASONE DIPROPIONATE 0.05 % EXTERNAL OINTMENT 345363 BETAMETHASONE DIPROPIONATE Inactive BENICAR HCT 40-25 MG ORAL TABLET Take one by mouth daily BENICAR HCT 40-25 MG ORAL TABLET 271192 OLMESARTAN MEDOXOMIL-HCTZ Inactive ATORVASTATIN CALCIUM 80 MG ORAL TABLET 1 po qHS ATORVASTATIN CALCIUM 80 MG ORAL TABLET 629978 ATORVASTATIN CALCIUM Inactive CIPRO 500 MG ORAL TABLET 1 tablet by mouth twice daily CIPRO 500 MG ORAL TABLET 984936 CIPROFLOXACIN HCL Inactive Advance Directives Directive Description [...] % 11.6-14.8 platelet count 263 10^3/MM^3 10*3/mm3 535-415 5905/07/24 mean corpuscular volume, RBC 92 fL 80-97 [...] 6.2 % 4.3-6.0 cholesterol, serum 229 mg/dL 189-477 8964/07/24 triglyceride, serum, fasting 106 mg/dL 30-200 HDL cholesterol, serum 60 mg/dL 32-60 LDL cholesterol, serum 148 mg/dL 0-130 sodium, serum 139 mmol/L 035-160 8405/07/24 carbon dioxide, venous blood 34.8 mmol/L 21.0-32.0 [...] Panel - Chemistry cholesterol, serum 275 mg/dL 923-343 3577/11/07 triglyceride, serum, fasting 166 mg/dL 30-200 HDL cholesterol, serum 62 mg/dL 32-60 LDL cholesterol, serum 180 mg/dL 0-130 sodium, serum 141 mmol/L 560-646 4713/11/07 carbon dioxide, venous blood 26.3 mmol/L 21.0-32.0 [...] 0-19 Encounters Code Encounter Date Provider Facility CPT-50948 Level 4 Est. Patient 10:26:48 ENVIRONMENTAL SAMPLER Andre Barreto MD [facility] CPT-20073 Level 4 Est. Patient 09:45:06 CDT Andre Barreto MD [facility] CPT-47130 Level 4 Est. Patient 11:53:39 ENVIRONMENTAL SAMPLER Andre Barreto MD [facility] CPT-80592 Level 4 Est. Patient 14:21:31 CDT Andre Barreto MD [facility] CPT-47343 Level 4 Est. Patient 15:24:17 CDT Andre Barreto MD [facility] CPT-85304 Level 3 Est. Patient 10:36:40 CDT Andre Barreto MD [facility] CPT-68642 Level 4 Est. Patient 11:27:43 CDT Andre Barreto MD [facility] CPT-49324 Level 3 Est. Patient 10:57:31 ENVIRONMENTAL SAMPLER Andre Barreto MD [facility] CPT-36164 Level 3 Est. Patient 13:53:13 ENVIRONMENTAL SAMPLER Andre Barreto MD [facility] CPT-57384 Level 3 Est. Patient 09:16:12 CDT Andre Barreto MD [facility] CPT-55838 Level 3 Est. Patient 14:50:35 CDT Andre Barreto MD [facility] Procedures Code Procedure Name Date Entry Date Standard Description CPT-18385 First Vx - Ix admin for Medicare patients 13:56:44 ENVIRONMENTAL SAMPLER CPT-38529 Zostavax Subcutaneous Solution Reconstituted 33302 UNT/0.65ML 12/22 13:56:44 ENVIRONMENTAL SAMPLER CPT-G0009 Administration of Pneumococcal Vaccine 10:12:50 CDT CPT-09181 Pneumovax 23 Injection Injectable 25 MCG/0.5ML 10:12:50 CDT CPT-G0439 Subsequent Annual Wellness Exam 09:49:25 CDT CPT-23059 First Vx - Ix admin for Medicare patients 17:55:11 ENVIRONMENTAL SAMPLER CPT-49227 Fluzone High-Dose Intramuscular Suspension 17:55:11 ENVIRONMENTAL SAMPLER CPT-07497 Venipuncture Draw Fee 14:11:36 CDT CPT-26530 Lipid - LAB USE ONLY 14:11:36 CDT CPT-02580 CMP - LAB USE ONLY 14:11:36 CDT CPT-G0438 Initial Annual Wellness Exam 13:29:06 CDT CPT-G0009 Administration of Pneumococcal Vaccine 13:26:57 CDT CPT-76639 Prevnar 13 Intramuscular Suspension 13:26:56 CDT 08/19 CPT-76144 Bone Density - XRAY USE ONLY 09:30:16 CDT CPT-Cryo Cryotherapy 08:59:26 ENVIRONMENTAL SAMPLER CPT-Cryo Cryotherapy 08:46:02 CDT CPT-22729 Chest 2V Frontal and Lat 14:02:13 ENVIRONMENTAL SAMPLER
--- OUTSIDE RECORDS SUMMARY | 2018-03-16 19:39 | XMS REPORT | Clinical Summary ---
Author Author Admin, EDUARDO Organization [facility] Address Unknown Phone Unavailable Allergies, Adverse Reactions, Alerts Allergy Name Reaction Description Start Date Severity Status Provider SULFA Critical Active Marcelle Yesi RMA PENICILLIN Critical Active Marcelle Yesi RMA ZINC Critical Active Marcelle Yesi RMA Conditions or Problems Problem Name Problem Code Onset Date Status Entry Date Provider Comment Standard Description Annotate HYPERLIPIDEMIA 272.4 Active Andre Barreto MD Other and unspecified hyperlipidemia HYPERTENSION 401.9 Active Andre Barreto MD Unspecified essential hypertension DYSPNEA 786.09 Resolved Andre Barreto MD Other dyspnea and respiratory abnormality FATIGUE 780.79 Resolved Andre Barreto MD Other malaise and fatigue DYSPNEA 786.05 Resolved Andre Barreto MD Shortness of breath CORONARY ARTERY DISEASE 414.00 Active Andre Barreto MD Coronary atherosclerosis of unspecified type of vessel, [place] or graft OBSTRUCTIVE SLEEP APNEA 327.23 Active [...] conditions of skin Elevated blood sugar 790.29 Active Marcelle Key RMA Other abnormal glucose Osteoarthritis, knee, left 715.96 Active Andre Barreto [...] 1 tab by mouth daily ATORVASTATIN CALCIUM 92021170434 Active Andre Barreto MD Active ZOFRAN 4 MG TABS 1 po q6hr PRN Nausea ONDANSETRON HCL 67577546701 No Longer Active Andre Barreto MD Active CIPRO 500 MG TAB 1 tablet by mouth twice daily CIPROFLOXACIN HCL 11612774597 No Longer Active Andre Barreto MD Active SYMBICORT 160-4.5 MCG/ACT AERO 2 puffs inhaled bid BUDESONIDE- FORMOTEROL FUMARATE 29033207636 No Longer Active Andre Barreto MD Active LASIX 20 MG TAB 1 tablet by mouth daily PRN FUROSEMIDE 06488519931 Active Andre Barreto MD Active TOPROL XL 25 MG [id number]-GKT Take one by mouth daily METOPROLOL SUCCINATE 44070155523 Active Andre Barreto MD Active PLAVIX 75 MG TABS 1 tablet by mouth daily CLOPIDOGREL BISULFATE 65956093228 Active Andre Barreto MD Active NITROSTAT 0.4 MG SL TAB disolve 1 under tongue repeat if needed NITROGLYCERIN 66017611408 Active Andre Barreto MD Active DICLOFENAC SODIUM 75 MG TBEC 1 tablet by mouth twice daily DICLOFENAC SODIUM 23162302374 No Longer Active Andre Barreto MD Active FLUOXETINE HCL 20 MG CAPS TAKE 3 CAPSULES BY MOUTH ONCE DAILY. FLUOXETINE HCL 33764476052 Active Andre Barreto MD Active PROZAC 40 MG CAPS 1 cap by mouth at bedtime FLUOXETINE HCL 22304450414 No Longer Active Andre Barreto MD Active HYDROCODONE-ACETAMINOPHEN 5-325 MG TABS 1 po q 6hr PRN Pain HYDROCODONE-ACETAMINOPHEN 56118512955 No Longer Active Andre Barreto MD Active TRAMADOL HCL 50 MG TABS 2 po q 6 hrs prn TRAMADOL HCL 67387079858 Active Andre Barreto MD Active AMBIEN 5 MG TABS 1 po a hs prn ZOLPIDEM TARTRATE 58345670518 Active Andre Barreto MD Active BENICAR HCT 40-25 MG TABS Take one by mouth daily OLMESARTAN MEDOXOMIL- HCTZ 19163216540 Active Andre Barreto MD Active HYDROCODONE-ACETAMINOPHEN 5-325 MG TABS 1 po q 6hr PRN Pain HYDROCODONE-ACETAMINOPHEN 5-325 MG TABS 566611 HYDROCODONE-ACETAMINOPHEN Inactive PROZAC 40 MG CAPS 1 cap by mouth at bedtime PROZAC 40 MG CAPS 004346 FLUOXETINE HCL Inactive DICLOFENAC SODIUM 75 MG TBEC 1 tablet by mouth twice daily DICLOFENAC SODIUM 75 MG TBEC 059935 DICLOFENAC SODIUM Inactive SYMBICORT 160-4.5 MCG/ACT AERO 2 puffs inhaled bid SYMBICORT 160-4.5 MCG/ACT AERO BUDESONIDE-FORMOTEROL FUMARATE Inactive ZOFRAN 4 MG TABS 1 po q6hr PRN Nausea ZOFRAN 4 MG TABS 068909 ONDANSETRON HCL Inactive CIPRO 500 MG TAB 1 tablet by mouth twice daily CIPRO 500 MG TAB 600024 CIPROFLOXACIN HCL Inactive Vital Signs Date Name Value Unit Range Description blood pressure, diastolic - 8462-4 83 mm[Hg] [...] W/DIFF - Chemistry sodium, serum 145 mmol/L 352-600 7914/12/19 potassium, serum 4.3 mmol/L 3.5-5.2 chloride, serum 104 mmol/L 98-107 carbon dioxide, venous blood 29.9 mmol/L 21.0-32.0 blood glucose 121 mg/dL 65-110 urea nitrogen, blood 17 mg/dL 7-18 creatinine, serum 1.20 mg/dL 0.60-1.30 alanine aminotransferase (SGPT), serum 40 U/L 12-78 aspartate aminotransferase (SGOT), serum 25 U/L 15-37 calcium, serum 9.2 mg/dL 8.5-10.1 bilirubin, serum, total 0.50 mg/dL 0.00-1.00 cholesterol, serum 174 mg/dL 445-425 4773/12/19 triglyceride, serum, fasting 129 mg/dL 30-200 HDL [...] 4.3-6.0 Encounters Code Encounter Date Provider Facility CPT-19368 Level 3 Est. Patient 10:57:31 ACCOUNT DEVELOPER Andre Barreto MD [facility] CPT-00226 Level 3 Est. Patient 13:53:13 ACCOUNT DEVELOPER Andre Barreto MD [facility] CPT-27671 Level 3 Est. Patient 09:16:12 CDT Andre Barreto MD [facility] CPT-29029 Level 3 Est. Patient 14:50:35 CDT Andre Barreto MD [facility] Procedures Code Procedure Name Date Entry Date Standard Description CPT-Cryo Cryotherapy 08:59:26 ACCOUNT DEVELOPER CPT-Cryo Cryotherapy 08:46:02 CDT CPT-26102 Chest 2V Frontal and Lat 14:02:13 ACCOUNT DEVELOPER
--- OUTSIDE RECORDS SUMMARY | 2018-03-16 19:40 | XMS REPORT | Clinical Summary ---
Author Author Admin, EDUARDO Organization [employer] [facility] Address Unknown Phone Unavailable Allergies, Adverse [...] Coronary atherosclerosis of unspecified type of vessel, [place] or graft Obstructive sleep apnea 327.23 Active [...] Andre Barreto MD Unsteady gait ICD-781.2 Inactive Anrde Barreto MD Acute exacerbation of chronic bronchitis ICD-491.22 Inactive Solitario Howe MD Actinic keratosis ICD-702.0 Inactive Andre Barreto MD Weakness, muscle ICD-728.87 Inactive Andre Barreto MD Medication List Medication Instructions Start Date Stop Date Generic Name NDC Status Provider Patient Instruction GUAIFENESIN DM 400-20 MG ORAL TABLET 1 pill by mouth twice daily, if needed for cough DEXTROMETHORPHAN-GUAIFENESIN 09580339720 Active David King APRN Active CEFDINIR 300 MG ORAL CAPSULE by mouth twice a day CEFDINIR 24686605434 Active David King HAND MOLD MAKER Active BENZONATATE 200 MG ORAL CAPSULE 1 three times a day as needed for cough 03/27 BENZONATATE 96330474027 No Longer Active Luna Prabhakar Active ZITHROMAX Z-NEVAEH 250 MG ORAL TABLET 2 today and then 1 daily for 4 days 03/27 AZITHROMYCIN 01156985212 No Longer Active Luna Prabhakar Active PREDNISONE 20 MG ORAL TABLET 2 daily for 3 days then 1 daily for 3 days 03/27 PREDNISONE 01079738793 No Longer Active Luna Prabhakar Active ATORVASTATIN CALCIUM 40 MG ORAL TABLET 1 po qHS ATORVASTATIN CALCIUM 95947518567 Active Marcelle Key Isabella Active CLOPIDOGREL BISULFATE 75 MG ORAL TABLET 1 po qd CLOPIDOGREL BISULFATE 47733840740 Active Andre Barreto MD Active FUROSEMIDE 20 MG ORAL TABLET 1 po qd PRN Edema FUROSEMIDE 70631777699 Active Andre Barreto MD Active PROAIR HFA 108 (90 Base) MCG/ACT INHALATION AEROSOL SOLUTION 2 puffs q4hr PRN Shortness of air/Wheezing ALBUTEROL SULFATE 47354067638 Active Andre Barreto MD Active ATORVASTATIN CALCIUM 80 MG ORAL TABLET 1 po qHS ATORVASTATIN CALCIUM 85488012895 No Longer Active Andre Barreto MD Active AMBIEN 5 MG ORAL TABLET 1 po qHS PRN Insomnia ZOLPIDEM TARTRATE 56646479035 Active Andre Barreto MD Active DETROL 2 MG ORAL TABLET 1 po qd TOLTERODINE TARTRATE 54211597455 Active Andre Barreto MD Active NITROGLYCERIN 0.4 MG SUBLINGUAL TABLET SUBLINGUAL 1 SL q5min PRN Chest pain up to 3 doses NITROGLYCERIN 09977026758 Active Andre Barreto MD Active TOPROL XL 50 MG ORAL TABLET EXTENDED RELEASE 24 HOUR 1 po qd METOPROLOL SUCCINATE 63352554181 Active Andre Barreto MD Active SYMBICORT 160-4.5 MCG/ACT INHALATION AEROSOL 2 puff BID BUDESONIDE-FORMOTEROL FUMARATE 35525629383 Active Cayla VERA Active FLUOXETINE HCL 40 MG ORAL CAPSULE 1 po qd FLUOXETINE HCL 14052948759 Active Andre Barreto MD Active BENICAR HCT 40-25 MG ORAL TABLET Take one by mouth daily OLMESARTAN MEDOXOMIL-HCTZ 90757708417 No Longer Active Andre Barreto MD Active LOSARTAN POTASSIUM-HCTZ 100-25 MG ORAL TABLET 1 po qd LOSARTAN POTASSIUM-HCTZ 43547461872 Active Andre Barreto MD Active BETAMETHASONE DIPROPIONATE 0.05 % EXTERNAL OINTMENT Apply to affected areas BID for up to 2 weeks BETAMETHASONE DIPROPIONATE 84345191762 No Longer Active Andre Barreto MD Active ZOFRAN 4 MG ORAL TABLET 1 po q6hr PRN Nausea ONDANSETRON HCL 08622934874 No Longer Active Andre Barreto MD Active CIPRO 500 MG ORAL TABLET 1 tablet by mouth twice daily CIPROFLOXACIN HCL 99687892028 No Longer Active Andre Barreto MD Active SYMBICORT 160-4.5 MCG/ACT INHALATION AEROSOL 2 puffs inhaled bid BUDESONIDE-FORMOTEROL FUMARATE 14556360810 No Longer Active Andre Barreto MD Active DICLOFENAC SODIUM 75 MG ORAL TABLET DELAYED RELEASE 1 tablet by mouth twice daily DICLOFENAC SODIUM 64883782088 No Longer Active Andre Barreto MD Active PROZAC 40 MG ORAL CAPSULE 1 cap by mouth at bedtime FLUOXETINE HCL 40429076341 No Longer Active Andre Barreto MD Active HYDROCODONE-ACETAMINOPHEN 5-325 MG ORAL TABLET 1 po q 6hr PRN Pain HYDROCODONE-ACETAMINOPHEN 47727726869 No Longer Active Andre Barreto MD Active TRAMADOL HCL 50 MG ORAL TABLET 2 po q 6 hrs prn TRAMADOL HCL 76526987784 Active Andre Barreto MD Active HYDROCODONE-ACETAMINOPHEN 5-325 MG ORAL TABLET 1 po q 6hr PRN Pain HYDROCODONE-ACETAMINOPHEN 5-325 MG ORAL TABLET 664348 HYDROCODONE- ACETAMINOPHEN Inactive PROZAC 40 MG ORAL CAPSULE 1 cap by mouth at bedtime PROZAC 40 MG ORAL CAPSULE 610808 FLUOXETINE HCL Inactive DICLOFENAC SODIUM 75 MG ORAL TABLET DELAYED RELEASE 1 tablet by mouth twice daily DICLOFENAC SODIUM 75 MG ORAL TABLET DELAYED RELEASE 087309 DICLOFENAC SODIUM Inactive SYMBICORT 160-4.5 MCG/ACT INHALATION AEROSOL 2 puffs inhaled bid SYMBICORT 160-4.5 MCG/ACT INHALATION AEROSOL BUDESONIDE-FORMOTEROL FUMARATE Inactive ZOFRAN 4 MG ORAL TABLET 1 po q6hr PRN Nausea ZOFRAN 4 MG ORAL TABLET 002722 ONDANSETRON HCL Inactive BETAMETHASONE DIPROPIONATE 0.05 % EXTERNAL OINTMENT Apply to affected areas BID for up to 2 weeks BETAMETHASONE DIPROPIONATE 0.05 % EXTERNAL OINTMENT 902269 BETAMETHASONE DIPROPIONATE Inactive BENICAR HCT 40-25 MG ORAL TABLET Take one by mouth daily BENICAR HCT 40-25 MG ORAL TABLET 471879 OLMESARTAN MEDOXOMIL-HCTZ Inactive ATORVASTATIN CALCIUM 80 MG ORAL TABLET 1 po qHS ATORVASTATIN CALCIUM 80 MG ORAL TABLET 532059 ATORVASTATIN CALCIUM Inactive PREDNISONE 20 MG ORAL TABLET 2 daily for 3 days then 1 daily for 3 days 03/27 PREDNISONE 20 MG ORAL TABLET 184539 PREDNISONE Inactive ZITHROMAX Z-NEVAEH 250 MG ORAL TABLET 2 today and then 1 daily for 4 days 03/27 ZITHROMAX Z-NEVAEH 250 MG ORAL TABLET 968187 AZITHROMYCIN Inactive BENZONATATE 200 MG ORAL CAPSULE 1 three times a day as needed for cough 03/27 BENZONATATE 200 MG ORAL CAPSULE 339177 BENZONATATE Inactive CIPRO 500 MG ORAL TABLET 1 tablet by mouth twice daily CIPRO 500 MG ORAL TABLET 256751 CIPROFLOXACIN HCL Inactive Advance Directives Directive Description [...] 6.2 % 4.3-6.0 cholesterol, serum 229 mg/dL 192-256 6805/07/24 triglyceride, serum, fasting 106 mg/dL 30-200 HDL cholesterol, serum 60 mg/dL 32-60 LDL cholesterol, serum 148 mg/dL 0-130 sodium, serum 139 mmol/L 755-822 8487/07/24 carbon dioxide, venous blood 34.8 mmol/L [...] Panel - Chemistry cholesterol, serum 275 mg/dL 704-576 5256/11/07 triglyceride, serum, fasting 166 mg/dL 30-200 HDL cholesterol, serum 62 mg/dL 32-60 LDL cholesterol, serum 180 mg/dL 0-130 sodium, serum 141 mmol/L 602-770 6971/11/07 carbon dioxide, venous blood 26.3 mmol/L 21.0-32.0 [...] 0-19 Encounters Code Encounter Date Provider Facility CPT-20436 Level 3 Est. Patient 09:24:01 WATER MAIN INSPECTOR David King APRN [facility] CPT-67145 Level 3 Est. Patient 13:01:07 WATER MAIN INSPECTOR Solitario Howe MD [facility] CPT-78176 Level 4 Est. Patient 10:26:48 WATER MAIN INSPECTOR Andre Barreto MD [facility] CPT-98635 Level 4 Est. Patient 09:45:06 CDT Andre Barreto MD [facility] CPT-89508 Level 4 Est. Patient 11:53:39 WATER MAIN INSPECTOR Andre Barreto MD [facility] CPT-56865 Level 4 Est. Patient 14:21:31 CDT Andre Barreto MD [facility] CPT-64616 Level 4 Est. Patient 15:24:17 CDT Andre Barreto MD [facility] CPT-44559 Level 3 Est. Patient 10:36:40 CDT Andre Barreto MD [facility] CPT-36218 Level 4 Est. Patient 11:27:43 CDT Andre Barreto MD [facility] CPT-60604 Level 3 Est. Patient 10:57:31 WATER MAIN INSPECTOR Andre Barreto MD [facility] CPT-75915 Level 3 Est. Patient 13:53:13 WATER MAIN INSPECTOR Andre Barreto MD [facility] CPT-46271 Level 3 Est. Patient 09:16:12 CDT Andre Barreto MD [facility] CPT-80447 Level 3 Est. Patient 14:50:35 CDT Andre Barreto MD [facility] Procedures Code Procedure Name Date Entry Date Standard Description CPT-38968 First Vx - Ix admin for Medicare patients 13:56:44 WATER MAIN INSPECTOR CPT-64881 Zostavax Subcutaneous Solution Reconstituted 97560 UNT/0.65ML 12/22 13:56:44 WATER MAIN INSPECTOR CPT-G0009 Administration of Pneumococcal Vaccine 10:12:50 CDT CPT-88257 Pneumovax 23 Injection Injectable 25 MCG/0.5ML 10:12:50 CDT CPT-G0439 Subsequent Annual Wellness Exam 09:49:25 CDT CPT-91083 First Vx - Ix admin for Medicare patients 17:55:11 WATER MAIN INSPECTOR CPT-60177 Fluzone High-Dose Intramuscular Suspension 17:55:11 WATER MAIN INSPECTOR CPT-32731 Venipuncture Draw Fee 14:11:36 CDT CPT-04657 Lipid - LAB USE ONLY 14:11:36 CDT CPT-55393 CMP - LAB USE ONLY 14:11:36 CDT CPT-G0438 Initial Annual Wellness Exam 13:29:06 CDT CPT-G0009 Administration of Pneumococcal Vaccine 13:26:57 CDT CPT-65778 Prevnar 13 Intramuscular Suspension 13:26:56 CDT 08/19 CPT-83805 Bone Density - XRAY USE ONLY 09:30:16 CDT CPT-Cryo Cryotherapy 08:59:26 WATER MAIN INSPECTOR CPT-Cryo Cryotherapy 08:46:02 CDT CPT-57998 Chest 2V Frontal and Lat 14:02:13 WATER MAIN INSPECTOR
--- OUTSIDE RECORDS SUMMARY | 2018-03-16 19:40 | XMS REPORT | Clinical Summary ---
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 oxygen Osteopenia [...] ORAL TABLET 1 po qHS ATORVASTATIN CALCIUM 11537431758 Active Marcellekala Key RMA Active CLOPIDOGREL BISULFATE 75 MG ORAL TABLET 1 po qd CLOPIDOGREL BISULFATE 05027424447 Active Andre Barreto MD Active FUROSEMIDE 20 MG ORAL TABLET 1 po qd PRN Edema FUROSEMIDE 25564059894 Active Andre Barreto MD Active PROAIR HFA 108 (90 Base) MCG/ACT INHALATION AEROSOL SOLUTION 2 puffs q4hr PRN Shortness of air/Wheezing ALBUTEROL SULFATE 93303476388 Active Andre Barreto MD Active ATORVASTATIN CALCIUM 80 MG ORAL TABLET 1 po qHS ATORVASTATIN CALCIUM 82882359585 No Longer Active Andre Barreto MD Active AMBIEN 5 MG ORAL TABLET 1 po qHS PRN Insomnia ZOLPIDEM TARTRATE 15370934527 Active Andre Barreto MD Active DETROL 2 MG ORAL TABLET 1 po qd TOLTERODINE TARTRATE 46173223901 Active Andre Barreto MD Active NITROGLYCERIN 0.4 MG SUBLINGUAL TABLET SUBLINGUAL 1 SL q5min PRN Chest pain up to 3 doses NITROGLYCERIN 20709927664 Active Andre Barreto MD Active TOPROL XL 50 MG ORAL TABLET EXTENDED RELEASE 24 HOUR 1 po qd METOPROLOL SUCCINATE 28323146805 Active Andre Barreto MD Active SYMBICORT 160-4.5 MCG/ACT INHALATION AEROSOL 2 puff BID BUDESONIDE-FORMOTEROL FUMARATE 11292034802 Active Cayla Flanagan [facility] Active FLUOXETINE HCL 40 MG ORAL CAPSULE 1 po qd FLUOXETINE HCL 45684938063 Active Andre Barreto MD Active BENICAR HCT 40-25 MG ORAL TABLET Take one by mouth daily OLMESARTAN MEDOXOMIL-HCTZ 56591791826 No Longer Active Andre Barreto MD Active LOSARTAN POTASSIUM-HCTZ 100-25 MG ORAL TABLET 1 po qd LOSARTAN POTASSIUM-HCTZ 73799165083 Active Andre Barreto MD Active BETAMETHASONE DIPROPIONATE 0.05 % EXTERNAL OINTMENT Apply to affected areas BID for up to 2 weeks BETAMETHASONE DIPROPIONATE 81304033470 No Longer Active Andre Barreto MD Active ZOFRAN 4 MG ORAL TABLET 1 po q6hr PRN Nausea ONDANSETRON HCL 85383519175 No Longer Active Andre Barreto MD Active CIPRO 500 MG ORAL TABLET 1 tablet by mouth twice daily CIPROFLOXACIN HCL 07407922837 No Longer Active Andre Barreto MD Active SYMBICORT 160-4.5 MCG/ACT INHALATION AEROSOL 2 puffs inhaled bid BUDESONIDE-FORMOTEROL FUMARATE 87721508770 No Longer Active Andre Barreto MD Active DICLOFENAC SODIUM 75 MG ORAL TABLET DELAYED RELEASE 1 tablet by mouth twice daily DICLOFENAC SODIUM 70264514810 No Longer Active Andre Barreto MD Active PROZAC 40 MG ORAL CAPSULE 1 cap by mouth at bedtime FLUOXETINE HCL 64682069649 No Longer Active Andre Barreto MD Active HYDROCODONE-ACETAMINOPHEN 5-325 MG ORAL TABLET 1 po q 6hr PRN Pain HYDROCODONE-ACETAMINOPHEN 36424171200 No Longer Active Andre Barreto MD Active TRAMADOL HCL 50 MG ORAL TABLET 2 po q 6 hrs prn TRAMADOL HCL 73235755921 Active Andre Barreto MD Active HYDROCODONE-ACETAMINOPHEN 5-325 MG ORAL TABLET 1 po q 6hr PRN Pain HYDROCODONE-ACETAMINOPHEN 5-325 MG ORAL TABLET 309250 HYDROCODONE- ACETAMINOPHEN Inactive PROZAC 40 MG ORAL CAPSULE 1 cap by mouth at bedtime PROZAC 40 MG ORAL CAPSULE 789294 FLUOXETINE HCL Inactive DICLOFENAC SODIUM 75 MG ORAL TABLET DELAYED RELEASE 1 tablet by mouth twice daily DICLOFENAC SODIUM 75 MG ORAL TABLET DELAYED RELEASE 790608 DICLOFENAC SODIUM Inactive SYMBICORT 160-4.5 MCG/ACT INHALATION AEROSOL 2 puffs inhaled bid SYMBICORT 160-4.5 MCG/ACT INHALATION AEROSOL BUDESONIDE-FORMOTEROL FUMARATE Inactive ZOFRAN 4 MG ORAL TABLET 1 po q6hr PRN Nausea ZOFRAN 4 MG ORAL TABLET 999565 ONDANSETRON HCL Inactive BETAMETHASONE DIPROPIONATE 0.05 % EXTERNAL OINTMENT Apply to affected areas BID for up to 2 weeks BETAMETHASONE DIPROPIONATE 0.05 % EXTERNAL OINTMENT 334676 BETAMETHASONE DIPROPIONATE Inactive BENICAR HCT 40-25 MG ORAL TABLET Take one by mouth daily BENICAR HCT 40-25 MG ORAL TABLET 375298 OLMESARTAN MEDOXOMIL-HCTZ Inactive ATORVASTATIN CALCIUM 80 MG ORAL TABLET 1 po qHS ATORVASTATIN CALCIUM 80 MG ORAL TABLET 141319 ATORVASTATIN CALCIUM Inactive CIPRO 500 MG ORAL TABLET 1 tablet by mouth twice daily CIPRO 500 MG ORAL TABLET 332465 CIPROFLOXACIN HCL Inactive Advance Directives Directive Description [...] 6.2 % 4.3-6.0 cholesterol, serum 229 mg/dL 109-457 5589/07/24 triglyceride, serum, fasting 106 mg/dL 30-200 HDL cholesterol, serum 60 mg/dL 32-60 LDL cholesterol, serum 148 mg/dL 0-130 sodium, serum 139 mmol/L 143-509 5456/07/24 carbon dioxide, venous blood 34.8 mmol/L 21.0-32.0 [...] Panel - Chemistry cholesterol, serum 275 mg/dL 273-784 5900/11/07 triglyceride, serum, fasting 166 mg/dL 30-200 HDL cholesterol, serum 62 mg/dL 32-60 LDL cholesterol, serum 180 mg/dL 0-130 sodium, serum 141 mmol/L 689-454 8000/11/07 carbon dioxide, venous blood 26.3 mmol/L 21.0-32.0 [...] 0-19 Encounters Code Encounter Date Provider Facility CPT-97492 Level 4 Est. Patient 10:26:48 CHECK WEIGHER Andre Barreto MD [facility] CPT-45711 Level 4 Est. Patient 09:45:06 CDT Andre Barreto MD [facility] CPT-59936 Level 4 Est. Patient 11:53:39 CHECK WEIGHER Andre Barreto MD [facility] CPT-13022 Level 4 Est. Patient 14:21:31 CDT Andre Barreto MD [facility] CPT-27344 Level 4 Est. Patient 15:24:17 CDT Andre Barreto MD [facility] CPT-96180 Level 3 Est. Patient 10:36:40 CDT Andre Barreto MD [facility] CPT-34327 Level 4 Est. Patient 11:27:43 CDT Andre Barreto MD [facility] CPT-69678 Level 3 Est. Patient 10:57:31 CHECK WEIGHER Andre Barreto MD [facility] CPT-25564 Level 3 Est. Patient 13:53:13 CHECK WEIGHER Andre Barreto MD [facility] CPT-42514 Level 3 Est. Patient 09:16:12 CDT Andre Barreto MD [facility] CPT-68577 Level 3 Est. Patient 14:50:35 CDT Andre Barreto MD [facility] Procedures Code Procedure Name Date Entry Date Standard Description CPT-81763 First Vx - Ix admin for Medicare patients 13:56:44 CHECK WEIGHER CPT-29667 Zostavax Subcutaneous Solution Reconstituted 82427 UNT/0.65ML 12/22 13:56:44 CHECK WEIGHER CPT-G0009 Administration of Pneumococcal Vaccine 10:12:50 CDT CPT-69287 Pneumovax 23 Injection Injectable 25 MCG/0.5ML 10:12:50 CDT CPT-G0439 Subsequent Annual Wellness Exam 09:49:25 CDT CPT-82704 First Vx - Ix admin for Medicare patients 17:55:11 CHECK WEIGHER CPT-43962 Fluzone High-Dose Intramuscular Suspension 17:55:11 CHECK WEIGHER CPT-49791 Venipuncture Draw Fee 14:11:36 CDT CPT-81836 Lipid - LAB USE ONLY 14:11:36 CDT CPT-46504 CMP - LAB USE ONLY 14:11:36 CDT CPT-G0438 Initial Annual Wellness Exam 13:29:06 CDT CPT-G0009 Administration of Pneumococcal Vaccine 13:26:57 CDT CPT-47970 Prevnar 13 Intramuscular Suspension 13:26:56 CDT 08/19 CPT-34416 Bone Density - XRAY USE ONLY 09:30:16 CDT CPT-Cryo Cryotherapy 08:59:26 CHECK WEIGHER CPT-Cryo Cryotherapy 08:46:02 CDT CPT-83393 Chest 2V Frontal and Lat 14:02:13 CHECK WEIGHER
[2018-03-16] MEDS: HYDROcodone/APAP 10 MG/325 MG (LORTAB) TAB PO PRN (19:41)
--- OUTSIDE RECORDS SUMMARY | 2018-03-16 19:41 | XMS REPORT | Clinical Summary ---
Author Author Admin, EDUARDO Organization [employer] Address Unknown Phone Unavailable Allergies, Adverse [...] Coronary atherosclerosis of unspecified type of vessel, [place] or graft Obstructive sleep apnea 327.23 Active [...] maintaining sleep Urinary incontinence, urge 788.31 Active Adnre Barreto MD Urge incontinence Bronchitis, chronic 491.9 [...] tag ICD-701.9 Inactive Andre Barreto MD 2014 Actinic keratosis ICD-702.0 Inactive Andre Barreto MD Dyshidrotic eczema, hands ICD-705.81 Inactive Andre Barreto MD Postmenopausal status ICD-V49.81 Inactive Andre Barreto MD Family history of osteoporosis ICD-V17.81 Inactive Andre Barreto MD Unsteady gait ICD-781.2 Inactive Andre Barreto MD Acute exacerbation of chronic bronchitis ICD-491.22 Inactive Solitario Howe MD Seborrheic keratosis ICD-702.19 Inactive Andre Barreto MD Weakness, muscle ICD-728.87 Inactive Andre Barreto MD Medication List Medication Instructions Start Date Stop Date Generic Name NDC Status Provider Patient Instruction GUAIFENESIN DM 400-20 MG ORAL TABLET 1 pill by mouth twice daily, if needed for cough DEXTROMETHORPHAN-GUAIFENESIN 81917995663 Active David King APRN Active CEFDINIR 300 MG ORAL CAPSULE by mouth twice a day CEFDINIR 32780724403 Active David King GENERAL OFFICE ASSOCIATE Active BENZONATATE 200 MG ORAL CAPSULE 1 three times a day as needed for cough 03/27 BENZONATATE 22199003926 No Longer Active Luna rPabhakar Active ZITHROMAX Z-NEVAEH 250 MG ORAL TABLET 2 today and then 1 daily for 4 days 03/27 AZITHROMYCIN 58149535888 No Longer Active Luna Prabhakar Active PREDNISONE 20 MG ORAL TABLET 2 daily for 3 days then 1 daily for 3 days 03/27 PREDNISONE 35390132582 No Longer Active Luna Prabhakar Active ATORVASTATIN CALCIUM 40 MG ORAL TABLET 1 po qHS ATORVASTATIN CALCIUM 60663229382 Active Marcelle Key Isabella Active CLOPIDOGREL BISULFATE 75 MG ORAL TABLET 1 po qd CLOPIDOGREL BISULFATE 92896357404 Active Andre Barreto MD Active FUROSEMIDE 20 MG ORAL TABLET 1 po qd PRN Edema FUROSEMIDE 94901202165 Active Andre Barreto MD Active PROAIR HFA 108 (90 Base) MCG/ACT INHALATION AEROSOL SOLUTION 2 puffs q4hr PRN Shortness of air/Wheezing ALBUTEROL SULFATE 27785615985 Active Andre Barreto MD Active ATORVASTATIN CALCIUM 80 MG ORAL TABLET 1 po qHS ATORVASTATIN CALCIUM 41267733335 No Longer Active Andre Barreto MD Active AMBIEN 5 MG ORAL TABLET 1 po qHS PRN Insomnia ZOLPIDEM TARTRATE 54764106656 Active Andre Barreto MD Active DETROL 2 MG ORAL TABLET 1 po qd TOLTERODINE TARTRATE 05203652582 Active Andre Barreto MD Active NITROGLYCERIN 0.4 MG SUBLINGUAL TABLET SUBLINGUAL 1 SL q5min PRN Chest pain up to 3 doses NITROGLYCERIN 82524311939 Active Andre Barreto MD Active TOPROL XL 50 MG ORAL TABLET EXTENDED RELEASE 24 HOUR 1 po qd METOPROLOL SUCCINATE 11512376889 Active Andre Barreto MD Active SYMBICORT 160-4.5 MCG/ACT INHALATION AEROSOL 2 puff BID BUDESONIDE-FORMOTEROL FUMARATE 62102971354 Active Cayla VERA Active FLUOXETINE HCL 40 MG ORAL CAPSULE 1 po qd FLUOXETINE HCL 25070648185 Active Andre Barreto MD Active BENICAR HCT 40-25 MG ORAL TABLET Take one by mouth daily OLMESARTAN MEDOXOMIL-HCTZ 66376104079 No Longer Active Andre Barreto MD Active LOSARTAN POTASSIUM-HCTZ 100-25 MG ORAL TABLET 1 po qd LOSARTAN POTASSIUM-HCTZ 21509196546 Active Andre Barreto MD Active BETAMETHASONE DIPROPIONATE 0.05 % EXTERNAL OINTMENT Apply to affected areas BID for up to 2 weeks BETAMETHASONE DIPROPIONATE 77301090562 No Longer Active Andre Barreto MD Active ZOFRAN 4 MG ORAL TABLET 1 po q6hr PRN Nausea ONDANSETRON HCL 28482096722 No Longer Active Andre Barreto MD Active CIPRO 500 MG ORAL TABLET 1 tablet by mouth twice daily CIPROFLOXACIN HCL 01838200457 No Longer Active Andre Barreto MD Active SYMBICORT 160-4.5 MCG/ACT INHALATION AEROSOL 2 puffs inhaled bid BUDESONIDE-FORMOTEROL FUMARATE 17550788028 No Longer Active Andre Barreto MD Active DICLOFENAC SODIUM 75 MG ORAL TABLET DELAYED RELEASE 1 tablet by mouth twice daily DICLOFENAC SODIUM 45889973933 No Longer Active Andre Barreto MD Active PROZAC 40 MG ORAL CAPSULE 1 cap by mouth at bedtime FLUOXETINE HCL 97854118029 No Longer Active Andre Barreto MD Active HYDROCODONE-ACETAMINOPHEN 5-325 MG ORAL TABLET 1 po q 6hr PRN Pain HYDROCODONE-ACETAMINOPHEN 96711659693 No Longer Active Andre Barreto MD Active TRAMADOL HCL 50 MG ORAL TABLET 2 po q 6 hrs prn TRAMADOL HCL 16661079515 Active Andre Barreto MD Active HYDROCODONE-ACETAMINOPHEN 5-325 MG ORAL TABLET 1 po q 6hr PRN Pain HYDROCODONE-ACETAMINOPHEN 5-325 MG ORAL TABLET 821602 HYDROCODONE- ACETAMINOPHEN Inactive PROZAC 40 MG ORAL CAPSULE 1 cap by mouth at bedtime PROZAC 40 MG ORAL CAPSULE 601639 FLUOXETINE HCL Inactive DICLOFENAC SODIUM 75 MG ORAL TABLET DELAYED RELEASE 1 tablet by mouth twice daily DICLOFENAC SODIUM 75 MG ORAL TABLET DELAYED RELEASE 758991 DICLOFENAC SODIUM Inactive SYMBICORT 160-4.5 MCG/ACT INHALATION AEROSOL 2 puffs inhaled bid SYMBICORT 160-4.5 MCG/ACT INHALATION AEROSOL BUDESONIDE-FORMOTEROL FUMARATE Inactive ZOFRAN 4 MG ORAL TABLET 1 po q6hr PRN Nausea ZOFRAN 4 MG ORAL TABLET 975084 ONDANSETRON HCL Inactive BETAMETHASONE DIPROPIONATE 0.05 % EXTERNAL OINTMENT Apply to affected areas BID for up to 2 weeks BETAMETHASONE DIPROPIONATE 0.05 % EXTERNAL OINTMENT 284422 BETAMETHASONE DIPROPIONATE Inactive BENICAR HCT 40-25 MG ORAL TABLET Take one by mouth daily BENICAR HCT 40-25 MG ORAL TABLET 750492 OLMESARTAN MEDOXOMIL-HCTZ Inactive ATORVASTATIN CALCIUM 80 MG ORAL TABLET 1 po qHS ATORVASTATIN CALCIUM 80 MG ORAL TABLET 109621 ATORVASTATIN CALCIUM Inactive PREDNISONE 20 MG ORAL TABLET 2 daily for 3 days then 1 daily for 3 days 03/27 PREDNISONE 20 MG ORAL TABLET 246482 PREDNISONE Inactive ZITHROMAX Z-NEVAEH 250 MG ORAL TABLET 2 today and then 1 daily for 4 days 03/27 ZITHROMAX Z-NEVAEH 250 MG ORAL TABLET 354313 AZITHROMYCIN Inactive BENZONATATE 200 MG ORAL CAPSULE 1 three times a day as needed for cough 03/27 BENZONATATE 200 MG ORAL CAPSULE 669513 BENZONATATE Inactive CIPRO 500 MG ORAL TABLET 1 tablet by mouth twice daily CIPRO 500 MG ORAL TABLET 043088 CIPROFLOXACIN HCL Inactive Advance Directives Directive Description [...] 6.2 % 4.3-6.0 cholesterol, serum 229 mg/dL 700-325 6302/07/24 triglyceride, serum, fasting 106 mg/dL 30-200 HDL cholesterol, serum 60 mg/dL 32-60 LDL cholesterol, serum 148 mg/dL 0-130 sodium, serum 139 mmol/L 104-485 2476/07/24 carbon dioxide, venous blood 34.8 mmol/L 21.0-32.0 [...] Panel - Chemistry cholesterol, serum 275 mg/dL 645-294 8181/11/07 triglyceride, serum, fasting 166 mg/dL 30-200 HDL cholesterol, serum 62 mg/dL 32-60 LDL cholesterol, serum 180 mg/dL 0-130 sodium, serum 141 mmol/L 266-614 5826/11/07 carbon dioxide, venous blood 26.3 mmol/L 21.0-32.0 [...] 0-19 Encounters Code Encounter Date Provider Facility CPT-95391 Level 3 Est. Patient 09:24:01 CIVIL ENGINEER'S AIDE David King APRN [facility] CPT-15354 Level 3 Est. Patient 13:01:07 CIVIL ENGINEER'S AIDE Solitario Howe MD [facility] CPT-10211 Level 4 Est. Patient 10:26:48 CIVIL ENGINEER'S AIDE Andre Barreto MD [facility] CPT-39284 Level 4 Est. Patient 09:45:06 CDT Andre Barreto MD [facility] CPT-31590 Level 4 Est. Patient 11:53:39 CIVIL ENGINEER'S AIDE Andre Barreto MD [facility] CPT-93162 Level 4 Est. Patient 14:21:31 CDT Andre Barreto MD [facility] CPT-43669 Level 4 Est. Patient 15:24:17 CDT Andre Barreto MD [facility] CPT-76874 Level 3 Est. Patient 10:36:40 CDT Andre Barreto MD [facility] CPT-22479 Level 4 Est. Patient 11:27:43 CDT Andre Barreto MD [facility] CPT-76868 Level 3 Est. Patient 10:57:31 CIVIL ENGINEER'S AIDE Andre Barreto MD [facility] CPT-22505 Level 3 Est. Patient 13:53:13 CIVIL ENGINEER'S AIDE Andre Barreto MD [facility] CPT-90765 Level 3 Est. Patient 09:16:12 CDT Andre Barreto MD [facility] CPT-55787 Level 3 Est. Patient 14:50:35 CDT Andre Barreto MD [facility] Procedures Code Procedure Name Date Entry Date Standard Description CPT-25223 First Vx - Ix admin for Medicare patients 13:56:44 CIVIL ENGINEER'S AIDE CPT-11326 Zostavax Subcutaneous Solution Reconstituted 38634 UNT/0.65ML 12/22 13:56:44 CIVIL ENGINEER'S AIDE CPT-G0009 Administration of Pneumococcal Vaccine 10:12:50 CDT CPT-79434 Pneumovax 23 Injection Injectable 25 MCG/0.5ML 10:12:50 CDT CPT-G0439 Subsequent Annual Wellness Exam 09:49:25 CDT CPT-71860 First Vx - Ix admin for Medicare patients 17:55:11 CIVIL ENGINEER'S AIDE CPT-41258 Fluzone High-Dose Intramuscular Suspension 17:55:11 CIVIL ENGINEER'S AIDE CPT-60094 Venipuncture Draw Fee 14:11:36 CDT CPT-91638 Lipid - LAB USE ONLY 14:11:36 CDT CPT-93885 CMP - LAB USE ONLY 14:11:36 CDT CPT-G0438 Initial Annual Wellness Exam 13:29:06 CDT CPT-G0009 Administration of Pneumococcal Vaccine 13:26:57 CDT CPT-12106 Prevnar 13 Intramuscular Suspension 13:26:56 CDT 08/19 CPT-02087 Bone Density - XRAY USE ONLY 09:30:16 CDT CPT-Cryo Cryotherapy 08:59:26 CIVIL ENGINEER'S AIDE CPT-Cryo Cryotherapy 08:46:02 CDT CPT-83864 Chest 2V Frontal and Lat 14:02:13 CIVIL ENGINEER'S AIDE
--- OUTSIDE RECORDS SUMMARY | 2018-03-16 19:41 | XMS REPORT | Clinical Summary ---
Author Author Admin, EDUARDO Organization [employer] Address Unknown Phone Unavailable Allergies, Adverse Reactions, [...] Coronary atherosclerosis of unspecified type of vessel, [place] or graft Obstructive sleep apnea 327.23 Active [...] Patient Instruction TOPROL XL 50 MG ORAL OS60K-IHP 1 po qd METOPROLOL SUCCINATE 18573499593 Active Andre Barreto MD Active PLAVIX 75 MG TABS 1 po qd CLOPIDOGREL BISULFATE 35969144309 Active Andre Barreto MD Active LASIX 20 MG TAB 1 po qd PRN Edema FUROSEMIDE 98854547718 Active Andre Barreto MD Active ATORVASTATIN CALCIUM 80 MG TABS 1 po qHS ATORVASTATIN CALCIUM 87110207492 Active Andre Barreto MD Active SYMBICORT 160-4.5 MCG/ACT AERO 2 puff BID BUDESONIDE- FORMOTEROL FUMARATE 50095831844 Active Andre Barreto MD Active PROAIR HFA 108 (90 BASE) MCG/ACT AERS 2 puffs four times a day as needed 2015 ALBUTEROL SULFATE 76547164717 Active Andre Barreto MD Active FLUOXETINE HCL 40 MG ORAL CAPS 1 po qd FLUOXETINE HCL 01618052294 Active Andre Barreto MD Active DETROL 2 MG ORAL TABS one tab daily TOLTERODINE TARTRATE 29964864855 Active Andre Barreto MD Active BENICAR HCT 40-25 MG TABS Take one by mouth daily OLMESARTAN MEDOXOMIL-HCTZ 46911588814 No Longer Active Andre Barreto MD Active LOSARTAN POTASSIUM-HCTZ 100-25 MG TABS 1 po qd LOSARTAN POTASSIUM-HCTZ 79556645094 Active Andre Barreto MD Active BETAMETHASONE DIPROPIONATE 0.05 % OINT Apply to affected areas BID for up to 2 weeks BETAMETHASONE DIPROPIONATE 04060563085 No Longer Active Andre Barreto MD Active ZOFRAN 4 MG TABS 1 po q6hr PRN Nausea ONDANSETRON HCL 10062411941 No Longer Active Andre Barreto MD Active CIPRO 500 MG TAB 1 tablet by mouth twice daily CIPROFLOXACIN HCL 53885872812 No Longer Active Andre Barreto MD Active SYMBICORT 160-4.5 MCG/ACT AERO 2 puffs inhaled bid BUDESONIDE- FORMOTEROL FUMARATE 33228987226 No Longer Active Andre Barreto MD Active NITROSTAT 0.4 MG SL TAB disolve 1 under tongue repeat if needed NITROGLYCERIN 13801941331 Active Andre Barreto MD Active DICLOFENAC SODIUM 75 MG TBEC 1 tablet by mouth twice daily DICLOFENAC SODIUM 05235089113 No Longer Active Andre Barreto MD Active PROZAC 40 MG CAPS 1 cap by mouth at bedtime FLUOXETINE HCL 68880319093 No Longer Active Andre Barreto MD Active HYDROCODONE-ACETAMINOPHEN 5-325 MG TABS 1 po q 6hr PRN Pain HYDROCODONE-ACETAMINOPHEN 71689757682 No Longer Active Andre Barreto MD Active TRAMADOL HCL 50 MG TABS 2 po q 6 hrs prn TRAMADOL HCL 48899741293 Active Andre Barreto MD Active AMBIEN 5 MG TABS 1 po a hs prn ZOLPIDEM TARTRATE 27574918005 Active Andre Barreto MD Active HYDROCODONE-ACETAMINOPHEN 5-325 MG TABS 1 po q 6hr PRN Pain HYDROCODONE-ACETAMINOPHEN 5-325 MG TABS 303313 HYDROCODONE-ACETAMINOPHEN Inactive PROZAC 40 MG CAPS 1 cap by mouth at bedtime PROZAC 40 MG CAPS 220091 FLUOXETINE HCL Inactive DICLOFENAC SODIUM 75 MG TBEC 1 tablet by mouth twice daily DICLOFENAC SODIUM 75 MG TBEC 201760 DICLOFENAC SODIUM Inactive SYMBICORT 160-4.5 MCG/ACT AERO 2 puffs inhaled bid SYMBICORT 160-4.5 MCG/ACT AERO BUDESONIDE-FORMOTEROL FUMARATE Inactive ZOFRAN 4 MG TABS 1 po q6hr PRN Nausea ZOFRAN 4 MG TABS 547244 ONDANSETRON HCL Inactive BETAMETHASONE DIPROPIONATE 0.05 % OINT Apply to affected areas BID for up to 2 weeks BETAMETHASONE DIPROPIONATE 0.05 % OINT 894378 BETAMETHASONE DIPROPIONATE Inactive BENICAR HCT 40-25 MG TABS Take one by mouth daily BENICAR HCT 40-25 MG TABS 788792 OLMESARTAN MEDOXOMIL-HCTZ Inactive CIPRO 500 MG TAB 1 tablet by mouth twice daily CIPRO 500 MG TAB 806660 CIPROFLOXACIN HCL Inactive Advance Directives Directive Description [...] ... - Chemistry sodium, serum 140 mmol/L 767-143 4778/06/28 carbon dioxide, venous blood 32.4 mmol/L 21.0-32.0 potassium, serum 4.0 mmol/L 3.5-5.2 chloride, serum 101 mmol/L 98-107 blood glucose 108 mg/dL 65-110 urea nitrogen, blood 20 mg/dL 7-18 creatinine, serum 0.98 mg/dL 0.55-1.30 alanine aminotransferase (SGPT), serum 44 U/L 12-78 aspartate aminotransferase (SGOT), serum 27 U/L 15-37 calcium, serum 9.4 mg/dL 8.5-10.1 bilirubin, serum, total 0.30 mg/dL 0.00-1.00 cholesterol, serum 264 mg/dL 036-540 1187/06/28 triglyceride, serum, fasting 146 mg/dL 30-200 HDL [...] Comp. Metabolic Panel, Lipid Panel - Chemistry urea nitrogen, blood 14 mg/dL 7-18 creatinine, serum 0.79 mg/dL 0.55-1.30 alanine aminotransferase (SGPT), serum 44 U/L 12-78 aspartate aminotransferase (SGOT), serum 25 U/L 15-37 calcium, serum 8.5 mg/dL 8.5-10.1 bilirubin, serum, total 0.30 mg/dL 0.00-1.00 cholesterol, serum 152 mg/dL 560-477 7833/09/27 triglyceride, serum, fasting 85 mg/dL 30-200 HDL cholesterol, serum 59 mg/dL 32-96 LDL cholesterol, serum 76 mg/dL 0-130 blood glucose 114 mg/dL 65-110 chloride, serum 107 mmol/L 98-107 potassium, serum 3.9 mmol/L 3.5-5.2 carbon dioxide, venous blood 30.1 mmol/L 21.0-32.0 sodium, serum 143 mmol/L 136-145 Encounters Code Encounter Date Provider Facility CPT-05775 Level 4 Est. Patient 14:21:31 CDT Andre Barreto MD [facility] CPT-42219 Level 4 Est. Patient 15:24:17 CDT Andre Barreto MD [facility] CPT-71710 Level 3 Est. Patient 10:36:40 CDT Andre Barreto MD [facility] CPT-60819 Level 4 Est. Patient 11:27:43 CDT Andre Barreto MD [facility] CPT-47179 Level 3 Est. Patient 10:57:31 [employer] OFFICER Andre Barreto MD [facility] CPT-26723 Level 3 Est. Patient 13:53:13 [employer]ILLANCE OFFICER Andre Barreto MD [facility] CPT-26191 Level 3 Est. Patient 09:16:12 CDT Andre Barreto MD [facility] CPT-04618 Level 3 Est. Patient 14:50:35 CDT Andre Barreto MD [facility] Procedures Code Procedure Name Date Entry Date Standard Description CPT-26396 Venipuncture Draw Fee 14:11:36 CDT CPT-89685 Lipid - LAB USE ONLY 14:11:36 CDT CPT-09512 CMP - LAB USE ONLY 14:11:36 CDT CPT-G0438 Initial Annual Wellness Exam 13:29:06 CDT CPT-G0009 Administration of Pneumococcal Vaccine 13:26:57 CDT CPT-16290 Prevnar 13 Intramuscular Suspension 13:26:56 CDT 08/19 CPT-90622 Bone Density - XRAY USE ONLY 09:30:16 CDT CPT-Cryo Cryotherapy 08:59:26 [employer]ANCE OFFICER CPT-Cryo Cryotherapy 08:46:02 CDT CPT-53817 Chest 2V Frontal and Lat 14:02:13 [employer]VEILLANCE OFFICER
--- OUTSIDE RECORDS SUMMARY | 2018-03-16 19:42 | XMS REPORT | Clinical Summary ---
Author Author Admin, EDUARDO Organization [email or web address] Address Unknown Phone Unavailable Allergies, Adverse Reactions, Alerts Allergy Name Reaction Description Start Date Severity Status Provider SULFA Mild No Longer Active Jillina Frazell MACHINE TOOL TECHNOLOGY INSTRUCTOR PENICILLIN Mild No Longer Active Jillina Frazell MACHINE TOOL TECHNOLOGY INSTRUCTOR ZINC Mild No Longer Active Jillina Frazell MACHINE TOOL TECHNOLOGY INSTRUCTOR SULFA Critical No Longer Active Marcelle Yesi RMA PENICILLIN Critical No Longer Active Marcelle Yesi RMA ZINC Critical No Longer Active Macrelle Yesi RMA PENICILLIN UNK Inactive [place] [...] Coronary atherosclerosis of unspecified type of vessel, afognak or graft Obstructive sleep apnea 327.23 Active [...] airway pressure rx V46.2 Active Pushpa Hernandez MACHINE TOOL TECHNOLOGY INSTRUCTOR Other dependence on machines, supplemental oxygen Osteopenia 733.90 Active Pushpa Hernandez APRN Disorder of bone and cartilage, unspecified Obstructive sleep apnea 327.23 Active Andre Barreto MD Obstructive sleep apnea (adult) (pediatric) Acute exacerbation of chronic bronchitis 491.22 Inactive Solitario Howe MD Obstructive chronic bronchitis with acute bronchitis Sinusitis 473.9 Active David King MACHINE TOOL TECHNOLOGY INSTRUCTOR Unspecified sinusitis (chronic) Abscess, skin 682.9 Active [...] Apply to affected area BID 05/18 MUPIROCIN 53535820918 No Longer Active Moira Price MA Active CLINDAMYCIN HCL 300 MG ORAL CAPSULE 1 po QID x 7 days CLINDAMYCIN HCL 90753759718 No Longer Active Jillina Frazell MACHINE TOOL TECHNOLOGY INSTRUCTOR Active BACTRIM DS 800-160 MG ORAL TABLET 1 tab by mouth twice daily 2017 TRIMETHOPRIM-SULFAMETHOXAZOLE 24911519244 No Longer Active Jillina Frazell MACHINE TOOL TECHNOLOGY INSTRUCTOR Active GUAIFENESIN DM 400-20 MG ORAL TABLET 1 pill by mouth twice daily, if needed for cough DEXTROMETHORPHAN-GUAIFENESIN 85344876562 Active Jillina Frazell MACHINE TOOL TECHNOLOGY INSTRUCTOR Active CEFDINIR 300 MG ORAL CAPSULE by mouth twice a day CEFDINIR 12524521003 No Longer Active Jillina Frazell MACHINE TOOL TECHNOLOGY INSTRUCTOR Active BENZONATATE 200 MG ORAL CAPSULE 1 three times a day as needed for cough 03/27 BENZONATATE 12772025687 No Longer Active Luna Prabhakar Active ZITHROMAX Z-NEVAEH 250 MG ORAL TABLET 2 today and then 1 daily for 4 days 03/27 AZITHROMYCIN 57904404139 No Longer Active Luna Prabhakar Active PREDNISONE 20 MG ORAL TABLET 2 daily for 3 days then 1 daily for 3 days 03/27 PREDNISONE 94390996968 No Longer Active Luna Prabhakar Active ATORVASTATIN CALCIUM 40 MG ORAL TABLET 1 po qHS ATORVASTATIN CALCIUM 01977835946 Active Marcelle VERA Active CLOPIDOGREL BISULFATE 75 MG ORAL TABLET 1 po qd CLOPIDOGREL BISULFATE 03243416895 Active Andre Barreto MD Active FUROSEMIDE 20 MG ORAL TABLET 1 po qd PRN Edema FUROSEMIDE 04603790558 Active Andre Barreto MD Active PROAIR HFA 108 (90 Base) MCG/ACT INHALATION AEROSOL SOLUTION 2 puffs q4hr PRN Shortness of air/Wheezing ALBUTEROL SULFATE 52137165952 Active Andre Barreto MD Active ATORVASTATIN CALCIUM 80 MG ORAL TABLET 1 po qHS ATORVASTATIN CALCIUM 79269283696 No Longer Active Andre Barreto MD Active AMBIEN 5 MG ORAL TABLET 1 po qHS PRN Insomnia ZOLPIDEM TARTRATE 17333625141 Active Andre Barreto MD Active DETROL 2 MG ORAL TABLET 1 po qd TOLTERODINE TARTRATE 47362239907 Active Andre Barreto MD Active NITROGLYCERIN 0.4 MG SUBLINGUAL TABLET SUBLINGUAL 1 SL q5min PRN Chest pain up to 3 doses NITROGLYCERIN 18768576636 Active Andre Barreto MD Active TOPROL XL 50 MG ORAL TABLET EXTENDED RELEASE 24 HOUR 1 po qd METOPROLOL SUCCINATE 40999839818 Active Andre Barreto MD Active SYMBICORT 160-4.5 MCG/ACT INHALATION AEROSOL 2 puff BID BUDESONIDE-FORMOTEROL FUMARATE 41192345812 Active Cayla VERA Active FLUOXETINE HCL 40 MG ORAL CAPSULE 1 po qd FLUOXETINE HCL 50071449568 Active Andre Barreto MD Active BENICAR HCT 40-25 MG ORAL TABLET Take one by mouth daily OLMESARTAN MEDOXOMIL-HCTZ 75900815110 No Longer Active Andre Barreto MD Active LOSARTAN POTASSIUM-HCTZ 100-25 MG ORAL TABLET 1 po qd LOSARTAN POTASSIUM-HCTZ 68931728454 Active Andre Barreto MD Active BETAMETHASONE DIPROPIONATE 0.05 % EXTERNAL OINTMENT Apply to affected areas BID for up to 2 weeks BETAMETHASONE DIPROPIONATE 97664898086 No Longer Active Andre Barreto MD Active ZOFRAN 4 MG ORAL TABLET 1 po q6hr PRN Nausea ONDANSETRON HCL 29892904149 No Longer Active Andre Barreto MD Active CIPRO 500 MG ORAL TABLET 1 tablet by mouth twice daily CIPROFLOXACIN HCL 32991532148 No Longer Active Andre Barreto MD Active SYMBICORT 160-4.5 MCG/ACT INHALATION AEROSOL 2 puffs inhaled bid BUDESONIDE-FORMOTEROL FUMARATE 07137549285 No Longer Active Andre Barreto MD Active DICLOFENAC SODIUM 75 MG ORAL TABLET DELAYED RELEASE 1 tablet by mouth twice daily DICLOFENAC SODIUM 61057956814 No Longer Active Andre Barreto MD Active PROZAC 40 MG ORAL CAPSULE 1 cap by mouth at bedtime FLUOXETINE HCL 78243390518 No Longer Active Andre Barreto MD Active HYDROCODONE-ACETAMINOPHEN 5-325 MG ORAL TABLET 1 po q 6hr PRN Pain HYDROCODONE-ACETAMINOPHEN 63118056781 No Longer Active Andre Barreto MD Active TRAMADOL HCL 50 MG ORAL TABLET 2 po q 6 hrs prn TRAMADOL HCL 58002506538 Active Andre Barreto MD Active HYDROCODONE-ACETAMINOPHEN 5-325 MG ORAL TABLET 1 po q 6hr PRN Pain HYDROCODONE-ACETAMINOPHEN 5-325 MG ORAL TABLET 889183 HYDROCODONE- ACETAMINOPHEN Inactive PROZAC 40 MG ORAL CAPSULE 1 cap by mouth at bedtime PROZAC 40 MG ORAL CAPSULE 145356 FLUOXETINE HCL Inactive DICLOFENAC SODIUM 75 MG ORAL TABLET DELAYED RELEASE 1 tablet by mouth twice daily DICLOFENAC SODIUM 75 MG ORAL TABLET DELAYED RELEASE 416288 DICLOFENAC SODIUM Inactive SYMBICORT 160-4.5 MCG/ACT INHALATION AEROSOL 2 puffs inhaled bid SYMBICORT 160-4.5 MCG/ACT INHALATION AEROSOL BUDESONIDE-FORMOTEROL FUMARATE Inactive ZOFRAN 4 MG ORAL TABLET 1 po q6hr PRN Nausea ZOFRAN 4 MG ORAL TABLET 520520 ONDANSETRON HCL Inactive BETAMETHASONE DIPROPIONATE 0.05 % EXTERNAL OINTMENT Apply to affected areas BID for up to 2 weeks BETAMETHASONE DIPROPIONATE 0.05 % EXTERNAL OINTMENT 774635 BETAMETHASONE DIPROPIONATE Inactive BENICAR HCT 40-25 MG ORAL TABLET Take one by mouth daily BENICAR HCT 40-25 MG ORAL TABLET 374245 OLMESARTAN MEDOXOMIL-HCTZ Inactive ATORVASTATIN CALCIUM 80 MG ORAL TABLET 1 po qHS ATORVASTATIN CALCIUM 80 MG ORAL TABLET 595555 ATORVASTATIN CALCIUM Inactive PREDNISONE 20 MG ORAL TABLET 2 daily for 3 days then 1 daily for 3 days 03/27 PREDNISONE 20 MG ORAL TABLET 731067 PREDNISONE Inactive ZITHROMAX Z-NEVAEH 250 MG ORAL TABLET 2 today and then 1 daily for 4 days 03/27 ZITHROMAX Z-NEVAEH 250 MG ORAL TABLET 665078 AZITHROMYCIN Inactive BENZONATATE 200 MG ORAL CAPSULE 1 three times a day as needed for cough 03/27 BENZONATATE 200 MG ORAL CAPSULE 857064 BENZONATATE Inactive BACTRIM DS 800-160 MG ORAL TABLET 1 tab by mouth twice daily 2017 BACTRIM DS 800-160 MG ORAL TABLET 581904 TRIMETHOPRIM- SULFAMETHOXAZOLE Inactive BACTROBAN 2 % EXTERNAL OINTMENT Apply to affected area BID 05/18 BACTROBAN 2 % EXTERNAL OINTMENT 966708 MUPIROCIN Inactive CIPRO 500 MG ORAL TABLET 1 tablet by mouth twice daily CIPRO 500 MG ORAL TABLET 528586 CIPROFLOXACIN HCL Inactive CEFDINIR 300 MG ORAL CAPSULE by mouth twice a day CEFDINIR 300 MG ORAL CAPSULE 093466 CEFDINIR Inactive CLINDAMYCIN HCL 300 MG ORAL CAPSULE 1 po QID x 7 days CLINDAMYCIN HCL 300 MG ORAL CAPSULE 882455 CLINDAMYCIN HCL Inactive Advance Directives Directive Description [...] 6.2 % 4.3-6.0 cholesterol, serum 229 mg/dL 682-340 1423/07/24 triglyceride, serum, fasting 106 mg/dL 30-200 HDL cholesterol, serum 60 mg/dL 32-60 LDL cholesterol, serum 148 mg/dL 0-130 sodium, serum 139 mmol/L 176-013 4065/07/24 carbon dioxide, venous blood 34.8 mmol/L 21.0-32.0 [...] Panel - Chemistry cholesterol, serum 275 mg/dL 909-189 1415/11/07 triglyceride, serum, fasting 166 mg/dL 30-200 HDL cholesterol, serum 62 mg/dL 32-60 LDL cholesterol, serum 180 mg/dL 0-130 sodium, serum 141 mmol/L 141-118 6671/11/07 carbon dioxide, venous blood 26.3 mmol/L 21.0-32.0 [...] 0-19 Encounters Code Encounter Date Provider Facility CPT-67040 Level 3 Est. Patient 14:29:01 CDT Eas Jackson MD [facility] CPT-00445 Level 3 Est. Patient 14:06:16 CDT Andre Barreto MD [facility] CPT-72626 Level 3 Est. Patient 09:16:36 CDT David King [facility] CPT-61931 Level 3 Est. Patient 09:24:01 CREAM DUMPER David King [facility] CPT-81135 Level 3 Est. Patient 13:01:07 CREAM DUMPER Solitario Howe MD [facility] CPT-18532 Level 4 Est. Patient 10:26:48 CREAM DUMPER Andre Barreto MD [facility] CPT-83165 Level 4 Est. Patient 09:45:06 CDT Andre Barreto MD [facility] CPT-47901 Level 4 Est. Patient 11:53:39 CREAM DUMPER Andre Barreto MD [facility] CPT-79003 Level 4 Est. Patient 14:21:31 CDT Andre Barreto MD [facility] CPT-60506 Level 4 Est. Patient 15:24:17 CDT Andre Barreto MD [facility] CPT-83481 Level 3 Est. Patient 10:36:40 CDT Andre Barreto MD [facility] CPT-86533 Level 4 Est. Patient 11:27:43 CDT Andre Barreto MD [facility] CPT-61292 Level 3 Est. Patient 10:57:31 CREAM DUMPER Andre Barreto MD [facility] CPT-78084 Level 3 Est. Patient 13:53:13 CREAM DUMPER Andre Barreto MD [facility] CPT-49907 Level 3 Est. Patient 09:16:12 CDT Andre Barreto MD [facility] CPT-15305 Level 3 Est. Patient 14:50:35 CDT Andre Barreto MD [facility] Procedures Code Procedure Name Date Entry Date Standard Description CPT-64103 Postop F/U Visit 14:31:27 CDT CPT-77569 Postop F/U Visit 14:30:20 CDT CPT-23841 Sono pelvis coley bladder only - XRAY USE ONLY 15:07:39 CDT CPT-95696 First Vx - Ix admin for Medicare patients 13:56:44 CREAM DUMPER CPT-64722 Zostavax Subcutaneous Solution Reconstituted 69103 UNT/0.65ML 12/22 13:56:44 CREAM DUMPER CPT-G0009 Administration of Pneumococcal Vaccine 10:12:50 CDT CPT-26436 Pneumovax 23 Injection Injectable 25 MCG/0.5ML 10:12:50 CDT CPT-G0439 Subsequent Annual Wellness Exam 09:49:25 CDT CPT-85602 First Vx - Ix admin for Medicare patients 17:55:11 CREAM DUMPER CPT-72439 Fluzone High-Dose Intramuscular Suspension 17:55:11 CREAM DUMPER CPT-91349 Venipuncture Draw Fee 14:11:36 CDT CPT-46779 Lipid - LAB USE ONLY 14:11:36 CDT CPT-57961 CMP - LAB USE ONLY 14:11:36 CDT CPT-G0438 Initial Annual Wellness Exam 13:29:06 CDT CPT-G0009 Administration of Pneumococcal Vaccine 13:26:57 CDT CPT-47615 Prevnar 13 Intramuscular Suspension 13:26:56 CDT 08/19 CPT-43296 Bone Density - XRAY USE ONLY 09:30:16 CDT CPT-Cryo Cryotherapy 08:59:26 CREAM DUMPER CPT-Cryo Cryotherapy 08:46:02 CDT CPT-70397 Chest 2V Frontal and Lat 14:02:13 CREAM DUMPER
--- OUTSIDE RECORDS SUMMARY | 2018-03-16 19:42 | XMS REPORT | Clinical Summary ---
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 Other dependence on machines, supplemental oxygen Osteopenia [...] MG TABS 1 po qHS ATORVASTATIN CALCIUM 23344785330 No Longer Active Andre Barreto MD Active AMBIEN 5 MG TABS 1 po qHS PRN Insomnia ZOLPIDEM TARTRATE 91419845228 Active Andre Barreto MD Active DETROL 2 MG ORAL TABS 1 po qd TOLTERODINE TARTRATE 32598556602 Active Andre Barreto MD Active NITROGLYCERIN 0.4 MG SL SUBL 1 SL q5min PRN Chest pain up to 3 doses NITROGLYCERIN 16360986325 Active Andre Barreto MD Active TOPROL XL 50 MG ORAL BU46Z-TIP 1 po qd METOPROLOL SUCCINATE 28249080990 Active Andre Barreto MD Active PLAVIX 75 MG TABS 1 po qd CLOPIDOGREL BISULFATE 75709015944 Active Andre Barreto MD Active LASIX 20 MG TAB 1 po qd PRN Edema FUROSEMIDE 33540939541 Active Andre Barreto MD Active SYMBICORT 160-4.5 MCG/ACT AERO 2 puff BID BUDESONIDE- FORMOTEROL FUMARATE 53973044818 Active Cayla VERA Active PROAIR HFA 108 (90 BASE) MCG/ACT AERS 2 puffs four times a day as needed 2015 ALBUTEROL SULFATE 56172918998 Active Andre Barreto MD Active FLUOXETINE HCL 40 MG ORAL CAPS 1 po qd FLUOXETINE HCL 02901493617 Active Andre Barreto MD Active BENICAR HCT 40-25 MG TABS Take one by mouth daily OLMESARTAN MEDOXOMIL-HCTZ 64574811607 No Longer Active Andre Barreto MD Active LOSARTAN POTASSIUM-HCTZ 100-25 MG TABS 1 po qd LOSARTAN POTASSIUM-HCTZ 98929908862 Active Andre Barreto MD Active BETAMETHASONE DIPROPIONATE 0.05 % OINT Apply to affected areas BID for up to 2 weeks BETAMETHASONE DIPROPIONATE 34217274682 No Longer Active Andre Barreto MD Active ZOFRAN 4 MG TABS 1 po q6hr PRN Nausea ONDANSETRON HCL 38106207831 No Longer Active Andre Barreto MD Active CIPRO 500 MG TAB 1 tablet by mouth twice daily CIPROFLOXACIN HCL 26411122533 No Longer Active Andre Barreto MD Active SYMBICORT 160-4.5 MCG/ACT AERO 2 puffs inhaled bid BUDESONIDE- FORMOTEROL FUMARATE 90514882057 No Longer Active Andre Barreto MD Active DICLOFENAC SODIUM 75 MG TBEC 1 tablet by mouth twice daily DICLOFENAC SODIUM 90259591150 No Longer Active Andre Barreto MD Active PROZAC 40 MG CAPS 1 cap by mouth at bedtime FLUOXETINE HCL 51404564034 No Longer Active Andre Barreto MD Active HYDROCODONE-ACETAMINOPHEN 5-325 MG TABS 1 po q 6hr PRN Pain HYDROCODONE-ACETAMINOPHEN 68345042057 No Longer Active Andre Barreto MD Active TRAMADOL HCL 50 MG TABS 2 po q 6 hrs prn TRAMADOL HCL 15799190597 Active Andre Barreto MD Active HYDROCODONE-ACETAMINOPHEN 5-325 MG TABS 1 po q 6hr PRN Pain HYDROCODONE-ACETAMINOPHEN 5-325 MG TABS 560759 HYDROCODONE-ACETAMINOPHEN Inactive PROZAC 40 MG CAPS 1 cap by mouth at bedtime PROZAC 40 MG CAPS 401564 FLUOXETINE HCL Inactive DICLOFENAC SODIUM 75 MG TBEC 1 tablet by mouth twice daily DICLOFENAC SODIUM 75 MG TBEC 262768 DICLOFENAC SODIUM Inactive SYMBICORT 160-4.5 MCG/ACT AERO 2 puffs inhaled bid SYMBICORT 160-4.5 MCG/ACT AERO BUDESONIDE-FORMOTEROL FUMARATE Inactive ZOFRAN 4 MG TABS 1 po q6hr PRN Nausea ZOFRAN 4 MG TABS 031291 ONDANSETRON HCL Inactive BETAMETHASONE DIPROPIONATE 0.05 % OINT Apply to affected areas BID for up to 2 weeks BETAMETHASONE DIPROPIONATE 0.05 % OINT 057046 BETAMETHASONE DIPROPIONATE Inactive BENICAR HCT 40-25 MG TABS Take one by mouth daily BENICAR HCT 40-25 MG TABS 273615 OLMESARTAN MEDOXOMIL-HCTZ Inactive ATORVASTATIN CALCIUM 80 MG TABS 1 po qHS ATORVASTATIN CALCIUM 80 MG TABS 673958 ATORVASTATIN CALCIUM Inactive CIPRO 500 MG TAB 1 tablet by mouth twice daily CIPRO 500 MG TAB 685861 CIPROFLOXACIN HCL Inactive Advance Directives Directive Description [...] Panel - Chemistry sodium, serum 143 mmol/L 009-638 6173/09/27 carbon dioxide, venous blood 30.1 mmol/L 21.0-32.0 potassium, serum 3.9 mmol/L 3.5-5.2 chloride, serum 107 mmol/L 98-107 blood glucose 114 mg/dL 65-110 urea nitrogen, blood 14 mg/dL 7-18 creatinine, serum 0.79 mg/dL 0.55-1.30 alanine aminotransferase (SGPT), serum 44 U/L 12-78 aspartate aminotransferase (SGOT), serum 25 U/L 15-37 calcium, serum 8.5 mg/dL 8.5-10.1 bilirubin, serum, total 0.30 mg/dL 0.00-1.00 cholesterol, serum 152 mg/dL 079-322 3074/09/27 triglyceride, serum, fasting 85 mg/dL 30-200 HDL cholesterol, serum 59 mg/dL 32-96 LDL cholesterol, serum 76 mg/dL 0-130 Lab Report: HGBA1C, Lipid Panel, Comp. Metabolic Panel - Chemistry hemoglobin A1C, blood, as % of total hemoglobin 6.2 % 4.3-6.0 cholesterol, serum 229 mg/dL 900-969 6572/07/24 triglyceride, serum, fasting 106 mg/dL 30-200 HDL cholesterol, serum 60 mg/dL 32-60 LDL cholesterol, serum 148 mg/dL 0-130 sodium, serum 139 mmol/L 417-870 3434/07/24 carbon dioxide, venous blood 34.8 mmol/L 21.0-32.0 [...] 0.00-1.00 Encounters Code Encounter Date Provider Facility CPT-34705 Level 4 Est. Patient 09:45:06 CDT Andre Barreto MD [facility] CPT-58017 Level 4 Est. Patient 11:53:39 CLINICAL SCIENCE LIAISON nAdre Barreto MD [facility] CPT-98800 Level 4 Est. Patient 14:21:31 CDT Andre Barreto MD [facility] CPT-57725 Level 4 Est. Patient 15:24:17 CDT Andre Barreto MD [facility] CPT-80823 Level 3 Est. Patient 10:36:40 CDT Andre Barreto MD [facility] CPT-57257 Level 4 Est. Patient 11:27:43 CDT Andre Barreto MD [facility] CPT-43585 Level 3 Est. Patient 10:57:31 CLINICAL SCIENCE LIAISON Andre Barreto MD [facility] CPT-84125 Level 3 Est. Patient 13:53:13 CLINICAL SCIENCE LIAISON Andre Barreto MD [facility] CPT-11216 Level 3 Est. Patient 09:16:12 CDT Andre Barreto MD [facility] CPT-93380 Level 3 Est. Patient 14:50:35 CDT Andre Barreto MD [facility] Procedures Code Procedure Name Date Entry Date Standard Description CPT-G0009 Administration of Pneumococcal Vaccine 10:12:50 CDT CPT-36807 Pneumovax 23 Injection Injectable 25 MCG/0.5ML 10:12:50 CDT CPT-G0439 MC Subsequent Annual Wellness Exam 09:49:25 CDT CPT-93060 First Vx - Ix admin for Medicare patients 17:55:11 CLINICAL SCIENCE LIAISON CPT-64977 Fluzone High-Dose Intramuscular Suspension 17:55:11 CLINICAL SCIENCE LIAISON CPT-45220 Venipuncture Draw Fee 14:11:36 CDT CPT-50029 Lipid - LAB USE ONLY 14:11:36 CDT CPT-39131 CMP - LAB USE ONLY 14:11:36 CDT CPT-G0438 Initial Annual Wellness Exam 13:29:06 CDT CPT-G0009 Administration of Pneumococcal Vaccine 13:26:57 CDT CPT-53420 Prevnar 13 Intramuscular Suspension 13:26:56 CDT 08/19 CPT-63601 Bone Density - XRAY USE ONLY 09:30:16 CDT CPT-Cryo Cryotherapy 08:59:26 CLINICAL SCIENCE LIAISON CPT-Cryo Cryotherapy 08:46:02 CDT CPT-91623 Chest 2V Frontal and Lat 14:02:13 CLINICAL SCIENCE LIAISON
--- OUTSIDE RECORDS SUMMARY | 2018-03-16 19:43 | XMS REPORT | Clinical Summary ---
Author Author Admin, [employer] Organization [facility] Address Unknown Phone Unavailable Allergies, Adverse Reactions, Alerts Allergy Name Reaction Description Start Date Severity Status Provider SULFA Mild No Longer Active Jillina Frazell SCIENTIFIC DIVER PENICILLIN Mild No Longer Active Jillina Frazell SCIENTIFIC DIVER ZINC Mild No Longer Active Jillina Frazell SCIENTIFIC DIVER SULFA Critical No Longer Active Marcelle Yesi [...] Coronary atherosclerosis of unspecified type of vessel, ruby or graft Obstructive sleep apnea 327.23 Active [...] Andre Barreto MD Benign paroxysmal positional vertigo DYSPNEA ICD-786.09 Inactive Andre Barreto MD 2012 [...] 1 po q8hr PRN Dizziness MECLIZINE HCL 61834411577 Active Andre Barreto MD Active MELOXICAM 15 MG ORAL TABLET 1 po qd PRN Pain MELOXICAM 28878898152 Active Andre Barreto MD Active ATORVASTATIN CALCIUM 40 MG ORAL TABLET 1 po qHS ATORVASTATIN CALCIUM 39711324222 No Longer Active Andre Barreto MD Active ATORVASTATIN CALCIUM 20 MG ORAL TABLET 1 po MWF ATORVASTATIN CALCIUM 72627952864 Active Andre Barreto MD Active GUAIFENESIN DM 400-20 MG ORAL TABLET 1 pill by mouth twice daily, if needed for cough DEXTROMETHORPHAN-GUAIFENESIN 53886551322 No Longer Active Andre Barreto MD Active BACTROBAN 2 % EXTERNAL OINTMENT Apply to affected area BID 05/18 MUPIROCIN 10214322478 No Longer Active Moira Price MA Active CLINDAMYCIN HCL 300 MG ORAL CAPSULE 1 po QID x 7 days CLINDAMYCIN HCL 93539773625 No Longer Active David King APRN Active BACTRIM DS 800-160 MG ORAL TABLET 1 tab by mouth twice daily 2017 TRIMETHOPRIM-SULFAMETHOXAZOLE 11207317014 No Longer Active David King APRN Active CEFDINIR 300 MG ORAL CAPSULE by mouth twice a day CEFDINIR 57510679990 No Longer Active David King SCIENTIFIC DIVER Active BENZONATATE 200 MG ORAL CAPSULE 1 three times a day as needed for cough 03/27 BENZONATATE 19728841805 No Longer Active Luna Prabhakar Active ZITHROMAX Z-NEVAEH 250 MG ORAL TABLET 2 today and then 1 daily for 4 days 03/27 AZITHROMYCIN 76904743435 No Longer Active Luna Prabhakar Active PREDNISONE 20 MG ORAL TABLET 2 daily for 3 days then 1 daily for 3 days 03/27 PREDNISONE 27439019071 No Longer Active Luna Prabhakar Active CLOPIDOGREL BISULFATE 75 MG ORAL TABLET 1 po qd CLOPIDOGREL BISULFATE 68398500995 Active Andre Barreto MD Active FUROSEMIDE 20 MG ORAL TABLET 1 po qd PRN Edema FUROSEMIDE 26644019073 Active Andre Barreto MD Active PROAIR HFA 108 (90 Base) MCG/ACT INHALATION AEROSOL SOLUTION 2 puffs q4hr PRN Shortness of air/Wheezing ALBUTEROL SULFATE 60383990645 Active Andre Barreto MD Active ATORVASTATIN CALCIUM 80 MG ORAL TABLET 1 po qHS ATORVASTATIN CALCIUM 20239842542 No Longer Active Andre Barreto MD Active AMBIEN 5 MG ORAL TABLET 1 po qHS PRN Insomnia ZOLPIDEM TARTRATE 29743337857 Active Andre Barreto MD Active DETROL 2 MG ORAL TABLET 1 po qd TOLTERODINE TARTRATE 09860483437 Active Andre Barreto MD Active NITROGLYCERIN 0.4 MG SUBLINGUAL TABLET SUBLINGUAL 1 SL q5min PRN Chest pain up to 3 doses NITROGLYCERIN 61611845689 Active Andre Barreto MD Active TOPROL XL 50 MG ORAL TABLET EXTENDED RELEASE 24 HOUR 1 po qd METOPROLOL SUCCINATE 33915673951 Active Andre Barreto MD Active SYMBICORT 160-4.5 MCG/ACT INHALATION AEROSOL 2 puff BID BUDESONIDE-FORMOTEROL FUMARATE 12012215308 Active Cayla VERA Active FLUOXETINE HCL 40 MG ORAL CAPSULE 1 po qd FLUOXETINE HCL 26055145185 Active Andre Barreto MD Active BENICAR HCT 40-25 MG ORAL TABLET Take one by mouth daily OLMESARTAN MEDOXOMIL-HCTZ 36663718783 No Longer Active Andre Barreto MD Active LOSARTAN POTASSIUM-HCTZ 100-25 MG ORAL TABLET 1 po qd LOSARTAN POTASSIUM-HCTZ 76678676777 Active Andre Barreto MD Active BETAMETHASONE DIPROPIONATE 0.05 % EXTERNAL OINTMENT Apply to affected areas BID for up to 2 weeks BETAMETHASONE DIPROPIONATE 81822110943 No Longer Active Andre Barreto MD Active ZOFRAN 4 MG ORAL TABLET 1 po q6hr PRN Nausea ONDANSETRON HCL 10807645290 No Longer Active Andre Barreto MD Active CIPRO 500 MG ORAL TABLET 1 tablet by mouth twice daily CIPROFLOXACIN HCL 06891942709 No Longer Active Andre Barreto MD Active SYMBICORT 160-4.5 MCG/ACT INHALATION AEROSOL 2 puffs inhaled bid BUDESONIDE-FORMOTEROL FUMARATE 40896681374 No Longer Active Andre Barreto MD Active DICLOFENAC SODIUM 75 MG ORAL TABLET DELAYED RELEASE 1 tablet by mouth twice daily DICLOFENAC SODIUM 95819554631 No Longer Active Andre Barreto MD Active PROZAC 40 MG ORAL CAPSULE 1 cap by mouth at bedtime FLUOXETINE HCL 97887585294 No Longer Active Andre Barreto MD Active HYDROCODONE-ACETAMINOPHEN 5-325 MG ORAL TABLET 1 po q 6hr PRN Pain HYDROCODONE-ACETAMINOPHEN 91743913772 No Longer Active Andre Barreto MD Active TRAMADOL HCL 50 MG ORAL TABLET 2 po q 6 hrs prn TRAMADOL HCL 83554522329 Active Andre Barreto MD Active HYDROCODONE-ACETAMINOPHEN 5-325 MG ORAL TABLET 1 po q 6hr PRN Pain HYDROCODONE-ACETAMINOPHEN 5-325 MG ORAL TABLET 567873 HYDROCODONE- ACETAMINOPHEN Inactive PROZAC 40 MG ORAL CAPSULE 1 cap by mouth at bedtime PROZAC 40 MG ORAL CAPSULE 887757 FLUOXETINE HCL Inactive DICLOFENAC SODIUM 75 MG ORAL TABLET DELAYED RELEASE 1 tablet by mouth twice daily DICLOFENAC SODIUM 75 MG ORAL TABLET DELAYED RELEASE 616891 DICLOFENAC SODIUM Inactive SYMBICORT 160-4.5 MCG/ACT INHALATION AEROSOL 2 puffs inhaled bid SYMBICORT 160-4.5 MCG/ACT INHALATION AEROSOL BUDESONIDE-FORMOTEROL FUMARATE Inactive ZOFRAN 4 MG ORAL TABLET 1 po q6hr PRN Nausea ZOFRAN 4 MG ORAL TABLET 427330 ONDANSETRON HCL Inactive BETAMETHASONE DIPROPIONATE 0.05 % EXTERNAL OINTMENT Apply to affected areas BID for up to 2 weeks BETAMETHASONE DIPROPIONATE 0.05 % EXTERNAL OINTMENT 838635 BETAMETHASONE DIPROPIONATE Inactive BENICAR HCT 40-25 MG ORAL TABLET Take one by mouth daily BENICAR HCT 40-25 MG ORAL TABLET 501918 OLMESARTAN MEDOXOMIL-HCTZ Inactive ATORVASTATIN CALCIUM 80 MG ORAL TABLET 1 po qHS ATORVASTATIN CALCIUM 80 MG ORAL TABLET 726705 ATORVASTATIN CALCIUM Inactive PREDNISONE 20 MG ORAL TABLET 2 daily for 3 days then 1 daily for 3 days 03/27 PREDNISONE 20 MG ORAL TABLET 379675 PREDNISONE Inactive ZITHROMAX Z-NEVAEH 250 MG ORAL TABLET 2 today and then 1 daily for 4 days 03/27 ZITHROMAX Z-ENVAEH 250 MG ORAL TABLET 685117 AZITHROMYCIN Inactive BENZONATATE 200 MG ORAL CAPSULE 1 three times a day as needed for cough 03/27 BENZONATATE 200 MG ORAL CAPSULE 242462 BENZONATATE Inactive BACTRIM DS 800-160 MG ORAL TABLET 1 tab by mouth twice daily 2017 BACTRIM DS 800-160 MG ORAL TABLET 864055 TRIMETHOPRIM- SULFAMETHOXAZOLE Inactive BACTROBAN 2 % EXTERNAL OINTMENT Apply to affected area BID 05/18 BACTROBAN 2 % EXTERNAL OINTMENT 259687 MUPIROCIN Inactive GUAIFENESIN DM 400-20 MG ORAL TABLET 1 pill by mouth twice daily, if needed for cough GUAIFENESIN DM 400-20 MG ORAL TABLET 8429248 DEXTROMETHORPHAN-GUAIFENESIN Inactive ATORVASTATIN CALCIUM 40 MG ORAL TABLET 1 po qHS ATORVASTATIN CALCIUM 40 MG ORAL TABLET 623581 ATORVASTATIN CALCIUM Inactive CIPRO 500 MG ORAL TABLET 1 tablet by mouth twice daily CIPRO 500 MG ORAL TABLET 907182 CIPROFLOXACIN HCL Inactive CEFDINIR 300 MG ORAL CAPSULE by mouth twice a day CEFDINIR 300 MG ORAL CAPSULE 313455 CEFDINIR Inactive CLINDAMYCIN HCL 300 MG ORAL CAPSULE 1 po QID x 7 days CLINDAMYCIN HCL 300 MG ORAL CAPSULE 910985 CLINDAMYCIN HCL Inactive Advance Directives Directive Description Start Date DISCUSSED WITH PATIENT -- NO DECISION MADE Vital Signs Date Name Value Unit Range Description blood pressure, diastolic 64 mm[Hg] BP pat [...] Panel - Chemistry sodium, serum 139 mmol/L 033-359 1454/05/04 carbon dioxide, venous blood 28.7 mmol/L 21.0-32.0 [...] 6.2 % 4.3-6.0 cholesterol, serum 302 mg/dL 106-642 0362/05/04 triglyceride, serum, fasting 145 mg/dL 30-200 HDL cholesterol, serum 61 mg/dL 32-60 LDL cholesterol, serum 212 mg/dL 0-130 Lab Report: HGBA1C, Lipid Panel, Comp. Metabolic Panel - Chemistry hemoglobin A1C, blood, as % of total hemoglobin 6.2 % 4.3-6.0 cholesterol, serum 229 mg/dL 281-895 5672/07/24 triglyceride, serum, fasting 106 mg/dL 30-200 HDL cholesterol, serum 60 mg/dL 32-60 LDL cholesterol, serum 148 mg/dL 0-130 sodium, serum 139 mmol/L 373-795 9811/07/24 carbon dioxide, venous blood 34.8 mmol/L 21.0-32.0 [...] Panel - Chemistry cholesterol, serum 275 mg/dL 246-606 5375/11/07 triglyceride, serum, fasting 166 mg/dL 30-200 HDL cholesterol, serum 62 mg/dL 32-60 LDL cholesterol, serum 180 mg/dL 0-130 sodium, serum 141 mmol/L 442-003 3914/11/07 carbon dioxide, venous blood 26.3 mmol/L 21.0-32.0 [...] 0-19 Encounters Code Encounter Date Provider Facility CPT-75272 Level 4 Est. Patient 10:07:14 CDT Andre Barreto MD [facility] CPT-54515 Level 3 Est. Patient 14:29:01 CDT Esa Jackson MD [facility] CPT-33716 Level 3 Est. Patient 14:06:16 CDT Andre Barreto MD [facility] CPT-74669 Level 3 Est. Patient 09:16:36 CDT David King [facility] CPT-62441 Level 3 Est. Patient 09:24:01 NURSE ORTHOPEDIC David King [facility] CPT-54829 Level 3 Est. Patient 13:01:07 NURSE ORTHOPEDIC Solitario Howe MD [facility] CPT-51431 Level 4 Est. Patient 10:26:48 NURSE ORTHOPEDIC Andre Barreto MD [facility] CPT-21416 Level 4 Est. Patient 09:45:06 CDT Andre Barreto MD [facility] CPT-39476 Level 4 Est. Patient 11:53:39 NURSE ORTHOPEDIC Andre Barreto MD [facility] CPT-02945 Level 4 Est. Patient 14:21:31 CDT Andre Barreto MD [facility] CPT-38235 Level 4 Est. Patient 15:24:17 CDT Andre Barreto MD [facility] CPT-00885 Level 3 Est. Patient 10:36:40 CDT Andre Barreto MD [facility] CPT-81361 Level 4 Est. Patient 11:27:43 CDT Andre Barreto MD [facility] CPT-36041 Level 3 Est. Patient 10:57:31 NURSE ORTHOPEDIC Andre Barreto MD [facility] CPT-51493 Level 3 Est. Patient 13:53:13 NURSE ORTHOPEDIC Andre Barreto MD [facility] CPT-80899 Level 3 Est. Patient 09:16:12 CDT Andre Barreto MD [facility] CPT-93149 Level 3 Est. Patient 14:50:35 CDT Andre Barreto MD [facility] Procedures Code Procedure Name Date Entry Date Standard Description CPT-70192 Postop F/U Visit 14:31:27 CDT CPT-99372 Postop F/U Visit 14:30:20 CDT CPT-99867 Sono pelvis coley bladder only - XRAY USE ONLY 15:07:39 CDT CPT-25844 First Vx - Ix admin for Medicare patients 13:56:44 NURSE ORTHOPEDIC CPT-34776 Zostavax Subcutaneous Solution Reconstituted 53497 UNT/0.65ML 12/22 13:56:44 NURSE ORTHOPEDIC CPT-G0009 Administration of Pneumococcal Vaccine 10:12:50 CDT CPT-59035 Pneumovax 23 Injection Injectable 25 MCG/0.5ML 10:12:50 CDT CPT-G0439 Subsequent Annual Wellness Exam 09:49:25 CDT CPT-24641 First Vx - Ix admin for Medicare patients 17:55:11 NURSE ORTHOPEDIC CPT-93017 Fluzone High-Dose Intramuscular Suspension 17:55:11 NURSE ORTHOPEDIC CPT-04683 Venipuncture Draw Fee 14:11:36 CDT CPT-43517 Lipid - LAB USE ONLY 14:11:36 CDT CPT-30508 CMP - LAB USE ONLY 14:11:36 CDT CPT-G0438 Initial Annual Wellness Exam 13:29:06 CDT CPT-G0009 Administration of Pneumococcal Vaccine 13:26:57 CDT CPT-59838 Prevnar 13 Intramuscular Suspension 13:26:56 CDT 08/19 CPT-13186 Bone Density - XRAY USE ONLY 09:30:16 CDT CPT-Cryo Cryotherapy 08:59:26 NURSE ORTHOPEDIC CPT-Cryo Cryotherapy 08:46:02 CDT CPT-60401 Chest 2V Frontal and Lat 14:02:13 NURSE ORTHOPEDIC
--- OUTSIDE RECORDS SUMMARY | 2018-03-16 19:44 | XMS REPORT | Clinical Summary ---
Author Author Admin, [employer] Organization [employer] Address Unknown Phone Unavailable Allergies, Adverse Reactions, [...] Coronary atherosclerosis of unspecified type of vessel, [place] or graft Obstructive sleep apnea 327.23 Active [...] airway pressure rx V46.2 Active [employer] Other dependence on machines, supplemental oxygen Osteopenia [...] 1 po qHS PRN Insomnia ZOLPIDEM TARTRATE 77695051576 Active Andre Barreto MD Active DETROL 2 MG ORAL TABS 1 po qd TOLTERODINE TARTRATE 93831557631 Active Andre Barreto MD Active NITROGLYCERIN 0.4 MG SL SUBL 1 SL q5min PRN Chest pain up to 3 doses NITROGLYCERIN 58601244687 Bar Barreto MD Active TOPROL XL 50 MG ORAL NH72X-LDT 1 po qd METOPROLOL SUCCINATE 59626003199 Active Andre Barreto MD Active PLAVIX 75 MG TABS 1 po qd CLOPIDOGREL BISULFATE 87682394547 Bar Barreto MD Active LASIX 20 MG TAB 1 po qd PRN Edema FUROSEMIDE 38190465295 Active Andre Barreto MD Active ATORVASTATIN CALCIUM 80 MG TABS 1 po qHS ATORVASTATIN CALCIUM 39133464018 Active Andre Barreto MD Active SYMBICORT 160-4.5 MCG/ACT AERO 2 puff BID BUDESONIDE- FORMOTEROL FUMARATE 90899671763 Active Andre Barreto MD Active PROAIR HFA 108 (90 BASE) MCG/ACT AERS 2 puffs four times a day as needed 2015 ALBUTEROL SULFATE 16544359907 Active Andre Barreto MD Active FLUOXETINE HCL 40 MG ORAL CAPS 1 po qd FLUOXETINE HCL 72412887006 Active Andre Barreto MD Active BENICAR HCT 40-25 MG TABS Take one by mouth daily OLMESARTAN MEDOXOMIL-HCTZ 80773444643 No Longer Active Andre Barreto MD Active LOSARTAN POTASSIUM-HCTZ 100-25 MG TABS 1 po qd LOSARTAN POTASSIUM-HCTZ 97021005873 Active Andre Barreto MD Active BETAMETHASONE DIPROPIONATE 0.05 % OINT Apply to affected areas BID for up to 2 weeks BETAMETHASONE DIPROPIONATE 28749239512 No Longer Active Andre Barreto MD Active ZOFRAN 4 MG TABS 1 po q6hr PRN Nausea ONDANSETRON HCL 60029008922 No Longer Active Andre Barreto MD Active CIPRO 500 MG TAB 1 tablet by mouth twice daily CIPROFLOXACIN HCL 36551353887 No Longer Active Andre Barreto MD Active SYMBICORT 160-4.5 MCG/ACT AERO 2 puffs inhaled bid BUDESONIDE- FORMOTEROL FUMARATE 01266311466 No Longer Active Andre Barreto MD Active DICLOFENAC SODIUM 75 MG TBEC 1 tablet by mouth twice daily DICLOFENAC SODIUM 22470131218 No Longer Active Andre Barreto MD Active PROZAC 40 MG CAPS 1 cap by mouth at bedtime FLUOXETINE HCL 40378826878 No Longer Active Andre Barreto MD Active HYDROCODONE-ACETAMINOPHEN 5-325 MG TABS 1 po q 6hr PRN Pain HYDROCODONE-ACETAMINOPHEN 42211603269 No Longer Active Andre Barreto MD Active TRAMADOL HCL 50 MG TABS 2 po q 6 hrs prn TRAMADOL HCL 86640726489 Active Andre Barreto MD Active HYDROCODONE-ACETAMINOPHEN 5-325 MG TABS 1 po q 6hr PRN Pain HYDROCODONE-ACETAMINOPHEN 5-325 MG TABS 688981 HYDROCODONE-ACETAMINOPHEN Inactive PROZAC 40 MG CAPS 1 cap by mouth at bedtime PROZAC 40 MG CAPS 540776 FLUOXETINE HCL Inactive DICLOFENAC SODIUM 75 MG TBEC 1 tablet by mouth twice daily DICLOFENAC SODIUM 75 MG TBEC 627952 DICLOFENAC SODIUM Inactive SYMBICORT 160-4.5 MCG/ACT AERO 2 puffs inhaled bid SYMBICORT 160-4.5 MCG/ACT AERO BUDESONIDE-FORMOTEROL FUMARATE Inactive ZOFRAN 4 MG TABS 1 po q6hr PRN Nausea ZOFRAN 4 MG TABS 704949 ONDANSETRON HCL Inactive BETAMETHASONE DIPROPIONATE 0.05 % OINT Apply to affected areas BID for up to 2 weeks BETAMETHASONE DIPROPIONATE 0.05 % OINT 979666 BETAMETHASONE DIPROPIONATE Inactive BENICAR HCT 40-25 MG TABS Take one by mouth daily BENICAR HCT 40-25 MG TABS 212435 OLMESARTAN MEDOXOMIL-HCTZ Inactive CIPRO 500 MG TAB 1 tablet by mouth twice daily CIPRO 500 MG TAB 870866 CIPROFLOXACIN HCL Inactive Advance Directives Directive Description [...] ... - Chemistry sodium, serum 140 mmol/L 183-275 4626/06/28 carbon dioxide, venous blood 32.4 mmol/L 21.0-32.0 potassium, serum 4.0 mmol/L 3.5-5.2 chloride, serum 101 mmol/L 98-107 blood glucose 108 mg/dL 65-110 urea nitrogen, blood 20 mg/dL 7-18 creatinine, serum 0.98 mg/dL 0.55-1.30 alanine aminotransferase (SGPT), serum 44 U/L 12-78 aspartate aminotransferase (SGOT), serum 27 U/L 15-37 calcium, serum 9.4 mg/dL 8.5-10.1 bilirubin, serum, total 0.30 mg/dL 0.00-1.00 cholesterol, serum 264 mg/dL 135-648 6598/06/28 triglyceride, serum, fasting 146 mg/dL 30-200 HDL [...] Panel - Chemistry sodium, serum 143 mmol/L 070-286 4809/09/27 carbon dioxide, venous blood 30.1 mmol/L 21.0-32.0 potassium, serum 3.9 mmol/L 3.5-5.2 chloride, serum 107 mmol/L 98-107 blood glucose 114 mg/dL 65-110 urea nitrogen, blood 14 mg/dL 7-18 creatinine, serum 0.79 mg/dL 0.55-1.30 alanine aminotransferase (SGPT), serum 44 U/L 12-78 aspartate aminotransferase (SGOT), serum 25 U/L 15-37 calcium, serum 8.5 mg/dL 8.5-10.1 bilirubin, serum, total 0.30 mg/dL 0.00-1.00 cholesterol, serum 152 mg/dL 516-890 5650/09/27 triglyceride, serum, fasting 85 mg/dL 30-200 HDL cholesterol, serum 59 mg/dL 32-96 LDL cholesterol, serum 76 mg/dL 0-130 Encounters Code Encounter Date Provider Facility CPT-57868 Level 4 Est. Patient 11:53:39 B[employer]LING BALL [employer]OLDER Andre Barreto MD [facility] CPT-55916 Level 4 Est. Patient 14:21:31 CDT Andre Barreto MD [facility] CPT-46354 Level 4 Est. Patient 15:24:17 CDT Andre Barreto MD [facility] CPT-86250 Level 3 Est. Patient 10:36:40 CDT Ander Barreto MD [facility] CPT-10714 Level 4 Est. Patient 11:27:43 CDT Andre Barreto MD [facility] CPT-23202 Level 3 Est. Patient 10:57:31 B[employer]LING BALL MOLDER Andre Barreto MD [facility] CPT-05576 Level 3 Est. Patient 13:53:13 BOWLING BALL MOLDER Andre Barreto MD [facility] CPT-48488 Level 3 Est. Patient 09:16:12 CDT Andre Barreto MD [facility] CPT-56623 Level 3 Est. Patient 14:50:35 CDT Andre Barreto MD [facility] Procedures Code Procedure Name Date Entry Date Standard Description CPT-96537 First Vx - Ix admin for Medicare patients 17:55:11 B[employer]LING BALL MOLDER CPT-90766 Fluzone High-Dose Intramuscular Suspension 17:55:11 B[employer]LING B[employer]DER CPT-84340 Venipuncture Draw Fee 14:11:36 CDT CPT-65195 Lipid - LAB USE ONLY 14:11:36 CDT CPT-75605 CMP - LAB USE ONLY 14:11:36 CDT CPT-G0438 Initial Annual Wellness Exam 13:29:06 CDT CPT-G0009 Administration of Pneumococcal Vaccine 13:26:57 CDT CPT-86967 Prevnar 13 Intramuscular Suspension 13:26:56 CDT 08/19 CPT-34573 Bone Density - XRAY USE ONLY 09:30:16 CDT CPT-Cryo Cryotherapy 08:59:26 B[employer]LING BALL MOLDER CPT-Cryo Cryotherapy 08:46:02 CDT CPT-84233 Chest 2V Frontal and Lat 14:02:13 B[employer]LING BALL M[employer]DER
--- OUTSIDE RECORDS SUMMARY | 2018-03-16 19:44 | XMS REPORT | Clinical Summary ---
Author Author Admin, EDUARDO Organization [email or web address] Address Unknown Phone Unavailable Allergies, Adverse Reactions, [...] Coronary atherosclerosis of unspecified type of vessel, [place] or graft Obstructive sleep apnea 327.23 [...] airway pressure rx V46.2 Active Pushpa Beverly [facility] Other dependence on machines, supplemental oxygen Osteopenia [...] 1 daily for 3 days 03/27 PREDNISONE 44909511737 Active Solitario Howe MD Active BENZONATATE 200 MG ORAL CAPSULE 1 three times a day as needed for cough 03/27 BENZONATATE 26816954672 Active Solitario Howe MD Active ZITHROMAX Z-NEVAEH 250 MG ORAL TABLET 2 today and then 1 daily for 4 days 03/27 AZITHROMYCIN 88867152913 Active Solitario Howe MD Active ATORVASTATIN CALCIUM 40 MG ORAL TABLET 1 po qHS ATORVASTATIN CALCIUM 22547017083 Active Marcelle Key RMA Active CLOPIDOGREL BISULFATE 75 MG ORAL TABLET 1 po qd CLOPIDOGREL BISULFATE 22629867262 Active Andre Barreto MD Active FUROSEMIDE 20 MG ORAL TABLET 1 po qd PRN Edema FUROSEMIDE 52288864715 Active Andre Barreto MD Active PROAIR HFA 108 (90 Base) MCG/ACT INHALATION AEROSOL SOLUTION 2 puffs q4hr PRN Shortness of air/Wheezing ALBUTEROL SULFATE 18130292456 Active Andre Barreto MD Active ATORVASTATIN CALCIUM 80 MG ORAL TABLET 1 po qHS ATORVASTATIN CALCIUM 98006503459 No Longer Active Andre Barreto MD Active AMBIEN 5 MG ORAL TABLET 1 po qHS PRN Insomnia ZOLPIDEM TARTRATE 15872215591 Active Andre Barreto MD Active DETROL 2 MG ORAL TABLET 1 po qd TOLTERODINE TARTRATE 44461022302 Active Andre Barreto MD Active NITROGLYCERIN 0.4 MG SUBLINGUAL TABLET SUBLINGUAL 1 SL q5min PRN Chest pain up to 3 doses NITROGLYCERIN 23935354528 Active Andre Barreto MD Active TOPROL XL 50 MG ORAL TABLET EXTENDED RELEASE 24 HOUR 1 po qd METOPROLOL SUCCINATE 82781988339 Active Andre Barreto MD Active SYMBICORT 160-4.5 MCG/ACT INHALATION AEROSOL 2 puff BID BUDESONIDE-FORMOTEROL FUMARATE 21645609440 Active Cayla Flanagan [facility] Active FLUOXETINE HCL 40 MG ORAL CAPSULE 1 po qd FLUOXETINE HCL 43402629860 Active Andre Barreto MD Active BENICAR HCT 40-25 MG ORAL TABLET Take one by mouth daily OLMESARTAN MEDOXOMIL-HCTZ 76538607861 No Longer Active Andre Barreto MD Active LOSARTAN POTASSIUM-HCTZ 100-25 MG ORAL TABLET 1 po qd LOSARTAN POTASSIUM-HCTZ 60781478959 Active Andre Barreto MD Active BETAMETHASONE DIPROPIONATE 0.05 % EXTERNAL OINTMENT Apply to affected areas BID for up to 2 weeks BETAMETHASONE DIPROPIONATE 14248745916 No Longer Active Andre Barreto MD Active ZOFRAN 4 MG ORAL TABLET 1 po q6hr PRN Nausea ONDANSETRON HCL 91040504795 No Longer Active Andre Barreto MD Active CIPRO 500 MG ORAL TABLET 1 tablet by mouth twice daily CIPROFLOXACIN HCL 76187085045 No Longer Active Andre Barreto MD Active SYMBICORT 160-4.5 MCG/ACT INHALATION AEROSOL 2 puffs inhaled bid BUDESONIDE-FORMOTEROL FUMARATE 63459730686 No Longer Active Andre Barreto MD Active DICLOFENAC SODIUM 75 MG ORAL TABLET DELAYED RELEASE 1 tablet by mouth twice daily DICLOFENAC SODIUM 49469669304 No Longer Active Andre Barreto MD Active PROZAC 40 MG ORAL CAPSULE 1 cap by mouth at bedtime FLUOXETINE HCL 88160651623 No Longer Active Andre Barreto MD Active HYDROCODONE-ACETAMINOPHEN 5-325 MG ORAL TABLET 1 po q 6hr PRN Pain HYDROCODONE-ACETAMINOPHEN 26993069456 No Longer Active Andre Barreto MD Active TRAMADOL HCL 50 MG ORAL TABLET 2 po q 6 hrs prn TRAMADOL HCL 61744567899 Active Andre Barreto MD Active HYDROCODONE-ACETAMINOPHEN 5-325 MG ORAL TABLET 1 po q 6hr PRN Pain HYDROCODONE-ACETAMINOPHEN 5-325 MG ORAL TABLET 921275 HYDROCODONE- ACETAMINOPHEN Inactive PROZAC 40 MG ORAL CAPSULE 1 cap by mouth at bedtime PROZAC 40 MG ORAL CAPSULE 641518 FLUOXETINE HCL Inactive DICLOFENAC SODIUM 75 MG ORAL TABLET DELAYED RELEASE 1 tablet by mouth twice daily DICLOFENAC SODIUM 75 MG ORAL TABLET DELAYED RELEASE 072564 DICLOFENAC SODIUM Inactive SYMBICORT 160-4.5 MCG/ACT INHALATION AEROSOL 2 puffs inhaled bid SYMBICORT 160-4.5 MCG/ACT INHALATION AEROSOL BUDESONIDE-FORMOTEROL FUMARATE Inactive ZOFRAN 4 MG ORAL TABLET 1 po q6hr PRN Nausea ZOFRAN 4 MG ORAL TABLET 080154 ONDANSETRON HCL Inactive BETAMETHASONE DIPROPIONATE 0.05 % EXTERNAL OINTMENT Apply to affected areas BID for up to 2 weeks BETAMETHASONE DIPROPIONATE 0.05 % EXTERNAL OINTMENT 059317 BETAMETHASONE DIPROPIONATE Inactive BENICAR HCT 40-25 MG ORAL TABLET Take one by mouth daily BENICAR HCT 40-25 MG ORAL TABLET 798388 OLMESARTAN MEDOXOMIL-HCTZ Inactive ATORVASTATIN CALCIUM 80 MG ORAL TABLET 1 po qHS ATORVASTATIN CALCIUM 80 MG ORAL TABLET 451133 ATORVASTATIN CALCIUM Inactive CIPRO 500 MG ORAL TABLET 1 tablet by mouth twice daily CIPRO 500 MG ORAL TABLET 233810 CIPROFLOXACIN HCL Inactive Advance Directives Directive Description [...] 6.2 % 4.3-6.0 cholesterol, serum 229 mg/dL 979-269 2679/07/24 triglyceride, serum, fasting 106 mg/dL 30-200 HDL cholesterol, serum 60 mg/dL 32-60 LDL cholesterol, serum 148 mg/dL 0-130 sodium, serum 139 mmol/L 980-893 1777/07/24 carbon dioxide, venous blood 34.8 mmol/L 21.0-32.0 [...] Panel - Chemistry cholesterol, serum 275 mg/dL 036-955 7647/11/07 triglyceride, serum, fasting 166 mg/dL 30-200 HDL cholesterol, serum 62 mg/dL 32-60 LDL cholesterol, serum 180 mg/dL 0-130 sodium, serum 141 mmol/L 895-023 2838/11/07 carbon dioxide, venous blood 26.3 mmol/L 21.0-32.0 [...] 0-19 Encounters Code Encounter Date Provider Facility CPT-77452 Level 3 Est. Patient 13:01:07 SOLUTION DIRECTOR Solitario Howe MD [facility] CPT-05157 Level 4 Est. Patient 10:26:48 SOLUTION DIRECTOR Andre Barreto MD [facility] CPT-23823 Level 4 Est. Patient 09:45:06 CDT Andre Barreto MD [facility] CPT-56241 Level 4 Est. Patient 11:53:39 SOLUTION DIRECTOR Andre Barreto MD [facility] CPT-49367 Level 4 Est. Patient 14:21:31 CDT Andre Barreto MD [facility] CPT-69528 Level 4 Est. Patient 15:24:17 CDT Andre Barreto MD [facility] CPT-83576 Level 3 Est. Patient 10:36:40 CDT Andre Barreto MD [facility] CPT-66902 Level 4 Est. Patient 11:27:43 CDT Andre Barreto MD [facility] CPT-89791 Level 3 Est. Patient 10:57:31 SOLUTION DIRECTOR Andre Barreto MD [facility] CPT-84166 Level 3 Est. Patient 13:53:13 SOLUTION DIRECTOR Andre Barreto MD [facility] CPT-51551 Level 3 Est. Patient 09:16:12 CDT Andre Barreto MD [facility] CPT-75554 Level 3 Est. Patient 14:50:35 CDT Andre Barreto MD [facility] Procedures Code Procedure Name Date Entry Date Standard Description CPT-08964 First Vx - Ix admin for Medicare patients 13:56:44 SOLUTION DIRECTOR CPT-92893 Zostavax Subcutaneous Solution Reconstituted 02314 UNT/0.65ML 12/22 13:56:44 SOLUTION DIRECTOR CPT-G0009 Administration of Pneumococcal Vaccine 10:12:50 CDT CPT-70471 Pneumovax 23 Injection Injectable 25 MCG/0.5ML 10:12:50 CDT CPT-G0439 Subsequent Annual Wellness Exam 09:49:25 CDT CPT-76183 First Vx - Ix admin for Medicare patients 17:55:11 SOLUTION DIRECTOR CPT-19475 Fluzone High-Dose Intramuscular Suspension 17:55:11 SOLUTION DIRECTOR CPT-83111 Venipuncture Draw Fee 14:11:36 CDT CPT-68161 Lipid - LAB USE ONLY 14:11:36 CDT CPT-66824 CMP - LAB USE ONLY 14:11:36 CDT CPT-G0438 Initial Annual Wellness Exam 13:29:06 CDT CPT-G0009 Administration of Pneumococcal Vaccine 13:26:57 CDT CPT-04791 Prevnar 13 Intramuscular Suspension 13:26:56 CDT 08/19 CPT-13878 Bone Density - XRAY USE ONLY 09:30:16 CDT CPT-Cryo Cryotherapy 08:59:26 SOLUTION DIRECTOR CPT-Cryo Cryotherapy 08:46:02 CDT CPT-48855 Chest 2V Frontal and Lat 14:02:13 SOLUTION DIRECTOR
--- OUTSIDE RECORDS SUMMARY | 2018-03-16 19:45 | XMS REPORT | Clinical Summary ---
Author Author Admin, EDUARDO Organization [employer] Address Unknown Phone Unavailable Allergies, Adverse Reactions, Alerts Allergy Name Reaction Description Start Date Severity Status Provider SULFA Mild No Longer Active Jillina Frazell SUPERVISORY FORESTER PENICILLIN Mild No Longer Active Jillina Frazell SUPERVISORY FORESTER ZINC Mild No Longer Active Jillina Frazell SUPERVISORY FORESTER SULFA Critical No Longer Active Marcelle Yesi [...] Coronary atherosclerosis of unspecified type of vessel, [place] or graft Obstructive sleep apnea 327.23 Active [...] acute bronchitis Sinusitis 473.9 Active David King SUPERVISORY FORESTER Unspecified sinusitis (chronic) Abscess, skin 682.9 Active [...] po QID x 7 days CLINDAMYCIN HCL 88221882909 Active Jillina Frazell SUPERVISORY FORESTER Active BACTRIM DS 800-160 MG ORAL TABLET 1 tab by mouth twice daily 2017 TRIMETHOPRIM-SULFAMETHOXAZOLE 14926316156 No Longer Active Jillina Frazell SUPERVISORY FORESTER Active BACTROBAN 2 % EXTERNAL OINTMENT Apply to affected area BID MUPIROCIN 03028658928 Active Jillina Frazell SUPERVISORY FORESTER Active GUAIFENESIN DM 400-20 MG ORAL TABLET 1 pill by mouth twice daily, if needed for cough DEXTROMETHORPHAN-GUAIFENESIN 28880214123 Active Jillina Frazell SUPERVISORY FORESTER Active CEFDINIR 300 MG ORAL CAPSULE by mouth twice a day CEFDINIR 30720119624 No Longer Active Jillina Frazell SUPERVISORY FORESTER Active BENZONATATE 200 MG ORAL CAPSULE 1 three times a day as needed for cough 03/27 BENZONATATE 70810421380 No Longer Active Luna Prabhakar Active ZITHROMAX Z-NEVAEH 250 MG ORAL TABLET 2 today and then 1 daily for 4 days 03/27 AZITHROMYCIN 22938943001 No Longer Active Luna Prabhakar Active PREDNISONE 20 MG ORAL TABLET 2 daily for 3 days then 1 daily for 3 days 03/27 PREDNISONE 03495106468 No Longer Active Luna Prabhakar Active ATORVASTATIN CALCIUM 40 MG ORAL TABLET 1 po qHS ATORVASTATIN CALCIUM 88046778201 Active Marcelle VERA Active CLOPIDOGREL BISULFATE 75 MG ORAL TABLET 1 po qd CLOPIDOGREL BISULFATE 67646058127 Active Andre Barreto MD Active FUROSEMIDE 20 MG ORAL TABLET 1 po qd PRN Edema FUROSEMIDE 43896943714 Active Andre Barreto MD Active PROAIR HFA 108 (90 Base) MCG/ACT INHALATION AEROSOL SOLUTION 2 puffs q4hr PRN Shortness of air/Wheezing ALBUTEROL SULFATE 70403454284 Active Andre Barreto MD Active ATORVASTATIN CALCIUM 80 MG ORAL TABLET 1 po qHS ATORVASTATIN CALCIUM 31573521820 No Longer Active Andre Barreto MD Active AMBIEN 5 MG ORAL TABLET 1 po qHS PRN Insomnia ZOLPIDEM TARTRATE 12244545134 Active Andre Barreto MD Active DETROL 2 MG ORAL TABLET 1 po qd TOLTERODINE TARTRATE 37104722093 Active Andre Barreto MD Active NITROGLYCERIN 0.4 MG SUBLINGUAL TABLET SUBLINGUAL 1 SL q5min PRN Chest pain up to 3 doses NITROGLYCERIN 48614572582 Active Andre Barreto MD Active TOPROL XL 50 MG ORAL TABLET EXTENDED RELEASE 24 HOUR 1 po qd METOPROLOL SUCCINATE 12520170435 Active Andre Barreto MD Active SYMBICORT 160-4.5 MCG/ACT INHALATION AEROSOL 2 puff BID BUDESONIDE-FORMOTEROL FUMARATE 45688642286 Active Cayla Flanagan Isabella Active FLUOXETINE HCL 40 MG ORAL CAPSULE 1 po qd FLUOXETINE HCL 62043196149 Active Andre Barreto MD Active BENICAR HCT 40-25 MG ORAL TABLET Take one by mouth daily OLMESARTAN MEDOXOMIL-HCTZ 28584175794 No Longer Active Andre Barreto MD Active LOSARTAN POTASSIUM-HCTZ 100-25 MG ORAL TABLET 1 po qd LOSARTAN POTASSIUM-HCTZ 24121884482 Active Andre Barreto MD Active BETAMETHASONE DIPROPIONATE 0.05 % EXTERNAL OINTMENT Apply to affected areas BID for up to 2 weeks BETAMETHASONE DIPROPIONATE 03412797047 No Longer Active Andre Barreto MD Active ZOFRAN 4 MG ORAL TABLET 1 po q6hr PRN Nausea ONDANSETRON HCL 57432744943 No Longer Active Andre Barreto MD Active CIPRO 500 MG ORAL TABLET 1 tablet by mouth twice daily CIPROFLOXACIN HCL 35113026313 No Longer Active Andre aBrreto MD Active SYMBICORT 160-4.5 MCG/ACT INHALATION AEROSOL 2 puffs inhaled bid BUDESONIDE-FORMOTEROL FUMARATE 00359970237 No Longer Active Andre Barreto MD Active DICLOFENAC SODIUM 75 MG ORAL TABLET DELAYED RELEASE 1 tablet by mouth twice daily DICLOFENAC SODIUM 43701944306 No Longer Active Andre Barreto MD Active PROZAC 40 MG ORAL CAPSULE 1 cap by mouth at bedtime FLUOXETINE HCL 49049326737 No Longer Active Andre Barreto MD Active HYDROCODONE-ACETAMINOPHEN 5-325 MG ORAL TABLET 1 po q 6hr PRN Pain HYDROCODONE-ACETAMINOPHEN 45860152571 No Longer Active Andre Barreto MD Active TRAMADOL HCL 50 MG ORAL TABLET 2 po q 6 hrs prn TRAMADOL HCL 48778005403 Active Andre Barreto MD Active HYDROCODONE-ACETAMINOPHEN 5-325 MG ORAL TABLET 1 po q 6hr PRN Pain HYDROCODONE-ACETAMINOPHEN 5-325 MG ORAL TABLET 486805 HYDROCODONE- ACETAMINOPHEN Inactive PROZAC 40 MG ORAL CAPSULE 1 cap by mouth at bedtime PROZAC 40 MG ORAL CAPSULE 011630 FLUOXETINE HCL Inactive DICLOFENAC SODIUM 75 MG ORAL TABLET DELAYED RELEASE 1 tablet by mouth twice daily DICLOFENAC SODIUM 75 MG ORAL TABLET DELAYED RELEASE 203709 DICLOFENAC SODIUM Inactive SYMBICORT 160-4.5 MCG/ACT INHALATION AEROSOL 2 puffs inhaled bid SYMBICORT 160-4.5 MCG/ACT INHALATION AEROSOL BUDESONIDE-FORMOTEROL FUMARATE Inactive ZOFRAN 4 MG ORAL TABLET 1 po q6hr PRN Nausea ZOFRAN 4 MG ORAL TABLET 133825 ONDANSETRON HCL Inactive BETAMETHASONE DIPROPIONATE 0.05 % EXTERNAL OINTMENT Apply to affected areas BID for up to 2 weeks BETAMETHASONE DIPROPIONATE 0.05 % EXTERNAL OINTMENT 447218 BETAMETHASONE DIPROPIONATE Inactive BENICAR HCT 40-25 MG ORAL TABLET Take one by mouth daily BENICAR HCT 40-25 MG ORAL TABLET 622777 OLMESARTAN MEDOXOMIL-HCTZ Inactive ATORVASTATIN CALCIUM 80 MG ORAL TABLET 1 po qHS ATORVASTATIN CALCIUM 80 MG ORAL TABLET 229278 ATORVASTATIN CALCIUM Inactive PREDNISONE 20 MG ORAL TABLET 2 daily for 3 days then 1 daily for 3 days 03/27 PREDNISONE 20 MG ORAL TABLET 265862 PREDNISONE Inactive ZITHROMAX Z-NEVAEH 250 MG ORAL TABLET 2 today and then 1 daily for 4 days 03/27 ZITHROMAX Z-NEVAEH 250 MG ORAL TABLET 632724 AZITHROMYCIN Inactive BENZONATATE 200 MG ORAL CAPSULE 1 three times a day as needed for cough 03/27 BENZONATATE 200 MG ORAL CAPSULE 757588 BENZONATATE Inactive BACTRIM DS 800-160 MG ORAL TABLET 1 tab by mouth twice daily 2017 BACTRIM DS 800-160 MG ORAL TABLET 980477 TRIMETHOPRIM- SULFAMETHOXAZOLE Inactive CIPRO 500 MG ORAL TABLET 1 tablet by mouth twice daily CIPRO 500 MG ORAL TABLET 631189 CIPROFLOXACIN HCL Inactive CEFDINIR 300 MG ORAL CAPSULE by mouth twice a day CEFDINIR 300 MG ORAL CAPSULE 168600 CEFDINIR Inactive Advance Directives Directive Description Start [...] Lab Report: CBC - Hematology mean corpuscular volume, RBC 92 fL 80-97 hematocrit, blood 41.5 % 37.0-47.0 hemoglobin, blood 13.5 g/dL 12.0-16.0 erythrocyte (RBC) count 4.49 10^6/MM^3 10*6/mm3 3.80-5.80 leukocyte count, blood 6.7 10^3/MM^3 10*3/mm3 4.6-10.2 platelet count 263 10^3/MM^3 10*3/mm3 300-236 4007/07/24 red blood cell distribution width 13.4 % 11.6-14.8 mean corpuscular hemoglobin concentration, RBC 32.5 G/DL % 31.8- 35.4 mean corpuscular hemoglobin, RBC 30.0 pg 27.0-31.2 Lab Report: CBC - Lab microalbumin, urine [...] % of total hemoglobin 6.2 % 4.3-6.0 carbon dioxide, venous blood 34.8 mmol/L 21.0-32.0 potassium, serum 4.6 mmol/L 3.5-5.2 chloride, serum 101 mmol/L 98-107 blood glucose 112 mg/dL 65-110 urea nitrogen, blood 22 mg/dL 7-18 creatinine, serum 1.12 mg/dL 0.60-1.30 alanine aminotransferase (SGPT), serum 32 U/L 12-78 aspartate aminotransferase (SGOT), serum 22 U/L 15-37 calcium, serum 9.4 mg/dL 8.5-10.1 bilirubin, serum, total 0.50 mg/dL 0.00-1.00 cholesterol, serum 229 mg/dL 200-396 5868/07/24 triglyceride, serum, fasting 106 mg/dL 30-200 HDL cholesterol, serum 60 mg/dL 32-60 LDL cholesterol, serum 148 mg/dL 0-130 sodium, serum 139 mmol/L 136-145 Lab Report: Lipid Panel, Comp. Metabolic Panel - Chemistry cholesterol, serum 275 mg/dL 325-495 1895/11/07 potassium, serum 4.0 mmol/L 3.5-5.2 chloride, serum 102 mmol/L 98-107 blood glucose 111 mg/dL 65-110 urea nitrogen, blood 24 mg/dL 7-18 creatinine, serum 1.15 mg/dL 0.60-1.30 alanine aminotransferase (SGPT), serum 52 U/L 12-78 aspartate aminotransferase (SGOT), serum 28 U/L 15-37 calcium, serum 9.2 mg/dL 8.5-10.1 bilirubin, serum, total 0.50 mg/dL 0.00-1.00 triglyceride, serum, fasting 166 mg/dL 30-200 HDL cholesterol, serum 62 mg/dL 32-60 LDL cholesterol, serum 180 mg/dL 0-130 sodium, serum 141 mmol/L 456-389 3553/11/07 carbon dioxide, venous blood 26.3 mmol/L 21.0-32.0 Lab Report: MICROALB/CREAT W/RATIO - Chemistry albumin/creatinine ratio, urine <30 mg/g Normal mg/g mg/g{creat} 0-29 Lab Report: MICROALB/CREAT W/RATIO - Lab microalbumin, urine 10 mg/L 0-19 Encounters Code Encounter Date Provider Facility CPT-40907 Level 3 Est. Patient 14:06:16 CDT Andre Barreto MD [facility] CPT-96585 Level 3 Est. Patient 09:16:36 CDT [facility] CPT-99354 Level 3 Est. Patient 09:24:01 BILINGUAL TEACHER ASSISTANT [facility] CPT-45532 Level 3 Est. Patient 13:01:07 BILINGUAL TEACHER ASSISTANT Solitario Howe MD [facility] CPT-68968 Level 4 Est. Patient 10:26:48 BILINGUAL TEACHER ASSISTANT Andre Barreto MD [facility] CPT-50904 Level 4 Est. Patient 09:45:06 CDT Andre Barreto MD [facility] CPT-61002 Level 4 Est. Patient 11:53:39 BILINGUAL TEACHER ASSISTANT Andre Barreto MD [facility] CPT-48370 Level 4 Est. Patient 14:21:31 CDT Andre Barreto MD [facility] CPT-96419 Level 4 Est. Patient 15:24:17 CDT Andre Barreto MD [facility] CPT-73659 Level 3 Est. Patient 10:36:40 CDT Andre Barreto MD [facility] CPT-28384 Level 4 Est. Patient 11:27:43 CDT Andre Barreto MD [facility] CPT-81453 Level 3 Est. Patient 10:57:31 BILINGUAL TEACHER ASSISTANT Andre Barreto MD [facility] CPT-58583 Level 3 Est. Patient 13:53:13 BILINGUAL TEACHER ASSISTANT Andre Barreto MD [facility] CPT-96377 Level 3 Est. Patient 09:16:12 CDT Andre Barreto MD [facility] CPT-19508 Level 3 Est. Patient 14:50:35 CDT Andre Barreto MD [facility] Procedures Code Procedure Name Date Entry Date Standard Description CPT-95111 Sono pelvis coley bladder only - XRAY USE ONLY 15:07:39 CDT CPT-25252 First Vx - Ix admin for Medicare patients 13:56:44 BILINGUAL TEACHER ASSISTANT CPT-40010 Zostavax Subcutaneous Solution Reconstituted 79442 UNT/0.65ML 12/22 13:56:44 BILINGUAL TEACHER ASSISTANT CPT-G0009 Administration of Pneumococcal Vaccine 10:12:50 CDT CPT-72942 Pneumovax 23 Injection Injectable 25 MCG/0.5ML 10:12:50 CDT CPT-G0439 Subsequent Annual Wellness Exam 09:49:25 CDT CPT-01906 First Vx - Ix admin for Medicare patients 17:55:11 BILINGUAL TEACHER ASSISTANT CPT-30326 Fluzone High-Dose Intramuscular Suspension 17:55:11 BILINGUAL TEACHER ASSISTANT CPT-65422 Venipuncture Draw Fee 14:11:36 CDT CPT-66787 Lipid - LAB USE ONLY 14:11:36 CDT CPT-49036 CMP - LAB USE ONLY 14:11:36 CDT CPT-G0438 Initial Annual Wellness Exam 13:29:06 CDT CPT-G0009 Administration of Pneumococcal Vaccine 13:26:57 CDT CPT-97304 Prevnar 13 Intramuscular Suspension 13:26:56 CDT 08/19 CPT-92724 Bone Density - XRAY USE ONLY 09:30:16 CDT CPT-Cryo Cryotherapy 08:59:26 BILINGUAL TEACHER ASSISTANT CPT-Cryo Cryotherapy 08:46:02 CDT CPT-88970 Chest 2V Frontal and Lat 14:02:13 BILINGUAL TEACHER ASSISTANT
--- OUTSIDE RECORDS SUMMARY | 2018-03-16 19:46 | XMS REPORT | Clinical Summary ---
Author Author Admin, [employer] Organization [employer] Address Unknown Phone Unavailable Allergies, Adverse Reactions, Alerts Allergy Name Reaction Description Start Date Severity Status Provider SULFA Mild No Longer Active Jillina Frazell WAREHOUSER PENICILLIN Mild No Longer Active Jillina Frazell WAREHOUSER ZINC Mild No Longer Active Jillina Frazell WAREHOUSER SULFA Critical No Longer Active Marcelle Yesi [...] Coronary atherosclerosis of unspecified type of vessel, council or graft Obstructive sleep apnea 327.23 Active [...] Apply to affected area BID 05/18 MUPIROCIN 31668525873 No Longer Active Moira Price MA Active CLINDAMYCIN HCL 300 MG ORAL CAPSULE 1 po QID x 7 days CLINDAMYCIN HCL 06711264170 No Longer Active Jillina Frazell WAREHOUSER Active BACTRIM DS 800-160 MG ORAL TABLET 1 tab by mouth twice daily 2017 TRIMETHOPRIM-SULFAMETHOXAZOLE 75470780195 No Longer Active Jillina Frazell WAREHOUSER Active GUAIFENESIN DM 400-20 MG ORAL TABLET 1 pill by mouth twice daily, if needed for cough DEXTROMETHORPHAN-GUAIFENESIN 43123257121 Active Jillina Frazell WAREHOUSER Active CEFDINIR 300 MG ORAL CAPSULE by mouth twice a day CEFDINIR 95766754136 No Longer Active Jillina Frazell WAREHOUSER Active BENZONATATE 200 MG ORAL CAPSULE 1 three times a day as needed for cough 03/27 BENZONATATE 95602011966 No Longer Active Luna Prabhakar Active ZITHROMAX Z-NEVAEH 250 MG ORAL TABLET 2 today and then 1 daily for 4 days 03/27 AZITHROMYCIN 57509724865 No Longer Active Luna Prabhakar Active PREDNISONE 20 MG ORAL TABLET 2 daily for 3 days then 1 daily for 3 days 03/27 PREDNISONE 57107858180 No Longer Active Luna Prabhakar Active ATORVASTATIN CALCIUM 40 MG ORAL TABLET 1 po qHS ATORVASTATIN CALCIUM 09287267933 Active Marcelle VERA Active CLOPIDOGREL BISULFATE 75 MG ORAL TABLET 1 po qd CLOPIDOGREL BISULFATE 56875849471 Active Andre Barreto MD Active FUROSEMIDE 20 MG ORAL TABLET 1 po qd PRN Edema FUROSEMIDE 25681601542 Active Andre Barreto MD Active PROAIR HFA 108 (90 Base) MCG/ACT INHALATION AEROSOL SOLUTION 2 puffs q4hr PRN Shortness of air/Wheezing ALBUTEROL SULFATE 82121731587 Active Andre Barreto MD Active ATORVASTATIN CALCIUM 80 MG ORAL TABLET 1 po qHS ATORVASTATIN CALCIUM 98499178293 No Longer Active Andre Barreto MD Active AMBIEN 5 MG ORAL TABLET 1 po qHS PRN Insomnia ZOLPIDEM TARTRATE 44929110052 Active Andre Barreto MD Active DETROL 2 MG ORAL TABLET 1 po qd TOLTERODINE TARTRATE 45029064642 Active Andre Barreto MD Active NITROGLYCERIN 0.4 MG SUBLINGUAL TABLET SUBLINGUAL 1 SL q5min PRN Chest pain up to 3 doses NITROGLYCERIN 80799421698 Active Andre Barreto MD Active TOPROL XL 50 MG ORAL TABLET EXTENDED RELEASE 24 HOUR 1 po qd METOPROLOL SUCCINATE 30876703394 Active Andre Barreto MD Active SYMBICORT 160-4.5 MCG/ACT INHALATION AEROSOL 2 puff BID BUDESONIDE-FORMOTEROL FUMARATE 84234890928 Active Cayla VERA Active FLUOXETINE HCL 40 MG ORAL CAPSULE 1 po qd FLUOXETINE HCL 89744966428 Active Andre Barreto MD Active BENICAR HCT 40-25 MG ORAL TABLET Take one by mouth daily OLMESARTAN MEDOXOMIL-HCTZ 01745480794 No Longer Active Andre Barreto MD Active LOSARTAN POTASSIUM-HCTZ 100-25 MG ORAL TABLET 1 po qd LOSARTAN POTASSIUM-HCTZ 26479764290 Active Andre Barreto MD Active BETAMETHASONE DIPROPIONATE 0.05 % EXTERNAL OINTMENT Apply to affected areas BID for up to 2 weeks BETAMETHASONE DIPROPIONATE 48286291774 No Longer Active Andre Barreto MD Active ZOFRAN 4 MG ORAL TABLET 1 po q6hr PRN Nausea ONDANSETRON HCL 14823906597 No Longer Active Andre Barreto MD Active CIPRO 500 MG ORAL TABLET 1 tablet by mouth twice daily CIPROFLOXACIN HCL 35518031725 No Longer Active Andre Barreto MD Active SYMBICORT 160-4.5 MCG/ACT INHALATION AEROSOL 2 puffs inhaled bid BUDESONIDE-FORMOTEROL FUMARATE 39945501866 No Longer Active Andre Barreto MD Active DICLOFENAC SODIUM 75 MG ORAL TABLET DELAYED RELEASE 1 tablet by mouth twice daily DICLOFENAC SODIUM 79774982117 No Longer Active Andre Barreto MD Active PROZAC 40 MG ORAL CAPSULE 1 cap by mouth at bedtime FLUOXETINE HCL 54626239031 No Longer Active Andre Barreto MD Active HYDROCODONE-ACETAMINOPHEN 5-325 MG ORAL TABLET 1 po q 6hr PRN Pain HYDROCODONE-ACETAMINOPHEN 05086142695 No Longer Active Andre Barreto MD Active TRAMADOL HCL 50 MG ORAL TABLET 2 po q 6 hrs prn TRAMADOL HCL 28413250657 Active Andre Barreto MD Active HYDROCODONE-ACETAMINOPHEN 5-325 MG ORAL TABLET 1 po q 6hr PRN Pain HYDROCODONE-ACETAMINOPHEN 5-325 MG ORAL TABLET 770805 HYDROCODONE- ACETAMINOPHEN Inactive PROZAC 40 MG ORAL CAPSULE 1 cap by mouth at bedtime PROZAC 40 MG ORAL CAPSULE 729441 FLUOXETINE HCL Inactive DICLOFENAC SODIUM 75 MG ORAL TABLET DELAYED RELEASE 1 tablet by mouth twice daily DICLOFENAC SODIUM 75 MG ORAL TABLET DELAYED RELEASE 147877 DICLOFENAC SODIUM Inactive SYMBICORT 160-4.5 MCG/ACT INHALATION AEROSOL 2 puffs inhaled bid SYMBICORT 160-4.5 MCG/ACT INHALATION AEROSOL BUDESONIDE-FORMOTEROL FUMARATE Inactive ZOFRAN 4 MG ORAL TABLET 1 po q6hr PRN Nausea ZOFRAN 4 MG ORAL TABLET 363809 ONDANSETRON HCL Inactive BETAMETHASONE DIPROPIONATE 0.05 % EXTERNAL OINTMENT Apply to affected areas BID for up to 2 weeks BETAMETHASONE DIPROPIONATE 0.05 % EXTERNAL OINTMENT 415250 BETAMETHASONE DIPROPIONATE Inactive BENICAR HCT 40-25 MG ORAL TABLET Take one by mouth daily BENICAR HCT 40-25 MG ORAL TABLET 952129 OLMESARTAN MEDOXOMIL-HCTZ Inactive ATORVASTATIN CALCIUM 80 MG ORAL TABLET 1 po qHS ATORVASTATIN CALCIUM 80 MG ORAL TABLET 900649 ATORVASTATIN CALCIUM Inactive PREDNISONE 20 MG ORAL TABLET 2 daily for 3 days then 1 daily for 3 days 03/27 PREDNISONE 20 MG ORAL TABLET 057865 PREDNISONE Inactive ZITHROMAX Z-NEVAEH 250 MG ORAL TABLET 2 today and then 1 daily for 4 days 03/27 ZITHROMAX Z-NEVAEH 250 MG ORAL TABLET 455077 AZITHROMYCIN Inactive BENZONATATE 200 MG ORAL CAPSULE 1 three times a day as needed for cough 03/27 BENZONATATE 200 MG ORAL CAPSULE 497051 BENZONATATE Inactive BACTRIM DS 800-160 MG ORAL TABLET 1 tab by mouth twice daily 2017 BACTRIM DS 800-160 MG ORAL TABLET 310175 TRIMETHOPRIM- SULFAMETHOXAZOLE Inactive BACTROBAN 2 % EXTERNAL OINTMENT Apply to affected area BID 05/18 BACTROBAN 2 % EXTERNAL OINTMENT 399310 MUPIROCIN Inactive CIPRO 500 MG ORAL TABLET 1 tablet by mouth twice daily CIPRO 500 MG ORAL TABLET 296230 CIPROFLOXACIN HCL Inactive CEFDINIR 300 MG ORAL CAPSULE by mouth twice a day CEFDINIR 300 MG ORAL CAPSULE 691147 CEFDINIR Inactive CLINDAMYCIN HCL 300 MG ORAL CAPSULE 1 po QID x 7 days CLINDAMYCIN HCL 300 MG ORAL CAPSULE 280842 CLINDAMYCIN HCL Inactive Advance Directives Directive Description [...] 6.2 % 4.3-6.0 cholesterol, serum 229 mg/dL 067-958 5967/07/24 triglyceride, serum, fasting 106 mg/dL 30-200 HDL cholesterol, serum 60 mg/dL 32-60 LDL cholesterol, serum 148 mg/dL 0-130 sodium, serum 139 mmol/L 600-860 7628/07/24 carbon dioxide, venous blood 34.8 mmol/L 21.0-32.0 [...] Panel - Chemistry cholesterol, serum 275 mg/dL 581-148 7450/11/07 triglyceride, serum, fasting 166 mg/dL 30-200 HDL cholesterol, serum 62 mg/dL 32-60 LDL cholesterol, serum 180 mg/dL 0-130 sodium, serum 141 mmol/L 366-608 0810/11/07 carbon dioxide, venous blood 26.3 mmol/L 21.0-32.0 [...] 0-19 Encounters Code Encounter Date Provider Facility CPT-47199 Level 3 Est. Patient 14:29:01 CDT Esa Jackson MD [facility] CPT-36308 Level 3 Est. Patient 14:06:16 CDT Andre Barreto MD [facility] CPT-94137 Level 3 Est. Patient 09:16:36 CDT David King [facility]-23728 Level 3 Est. Patient 09:24:01 QUALITY HEAD David King [facility] CPT-42300 Level 3 Est. Patient 13:01:07 QUAL[facility] Solitario Howe MD [facility]-79161 Level 4 Est. Patient 10:26:48 QUAL[facility] Andre Barreto MD [facility] CPT-82736 Level 4 Est. Patient 09:45:06 CDT Andre Barreto MD [facility] CPT-55225 Level 4 Est. Patient 11:53:39 QUAL[facility] Andre Barreto MD [facility] CPT-19456 Level 4 Est. Patient 14:21:31 CDT Andre Barreto MD [facility] CPT-51579 Level 4 Est. Patient 15:24:17 CDT Andre Barreto MD [facility] CPT-15309 Level 3 Est. Patient 10:36:40 CDT Andre Barreto MD [facility] CPT-44082 Level 4 Est. Patient 11:27:43 CDT Andre Barreto MD [facility] CPT-89598 Level 3 Est. Patient 10:57:31 QUALITY [facility] Andre Barreto MD [facility] CPT-42831 Level 3 Est. Patient 13:53:13 QUALITY HEAD Andre Barreto MD [facility] CPT-48838 Level 3 Est. Patient 09:16:12 CDT Andre Barreto MD [facility] CPT-77183 Level 3 Est. Patient 14:50:35 CDT Andre Barreto MD [facility] Procedures Code Procedure Name Date Entry Date Standard Description CPT-45753 Postop F/U Visit 14:31:27 CDT CPT-07145 Postop F/U Visit 14:30:20 CDT CPT-92107 Sono pelvis coley bladder only - XRAY USE ONLY 15:07:39 CDT CPT-88025 First Vx - Ix admin for Medicare patients 13:56:44 QUALITY HEAD CPT-50402 Zostavax Subcutaneous Solution Reconstituted 55892 UNT/0.65ML 12/22 13:56:44 QUALITY HEAD CPT-G0009 Administration of Pneumococcal Vaccine 10:12:50 CDT CPT-39207 Pneumovax 23 Injection Injectable 25 MCG/0.5ML 10:12:50 CDT CPT-G0439 Subsequent Annual Wellness Exam 09:49:25 CDT CPT-04111 First Vx - Ix admin for Medicare patients 17:55:11 QUALITY HEAD CPT-06899 Fluzone High-Dose Intramuscular Suspension 17:55:11 QUAL[facility] HEAD CPT-11819 Venipuncture Draw Fee 14:11:36 CDT CPT-35373 Lipid - LAB USE ONLY 14:11:36 CDT CPT-04959 CMP - LAB USE ONLY 14:11:36 CDT CPT-G0438 Initial Annual Wellness Exam 13:29:06 CDT CPT-G0009 Administration of Pneumococcal Vaccine 13:26:57 CDT CPT-68553 Prevnar 13 Intramuscular Suspension 13:26:56 CDT 08/19 CPT-05491 Bone Density - XRAY USE ONLY 09:30:16 CDT CPT-Cryo Cryotherapy 08:59:26 QUALITY HEAD CPT-Cryo Cryotherapy 08:46:02 CDT CPT-70652 Chest 2V Frontal and Lat 14:02:13 QUALITY HEAD
--- OUTSIDE RECORDS SUMMARY | 2018-03-16 19:46 | XMS REPORT | Clinical Summary ---
Author Author Admin, EDUARDO Organization [employer] Address Unknown Phone Unavailable Allergies, Adverse Reactions, [...] atherosclerosis of unspecified type of vessel, [place] or graft Obstructive sleep apnea 327.23 [...] airway pressure rx V46.2 Active [employer] [place] [employer] Other dependence on machines, supplemental oxygen Osteopenia [...] 1 po qHS PRN Insomnia ZOLPIDEM TARTRATE 42184618998 Active Andre Barreto MD Active DETROL 2 MG ORAL TABS 1 po qd TOLTERODINE TARTRATE 11538548696 Active Andre Barreto MD Active NITROGLYCERIN 0.4 MG SL SUBL 1 SL q5min PRN Chest pain up to 3 doses NITROGLYCERIN 98856215835 Bar Barreto MD Active TOPROL XL 50 MG ORAL [id number] 1 po qd METOPROLOL SUCCINATE 78560985193 Active Andre Barreto MD Active PLAVIX 75 MG TABS 1 po qd CLOPIDOGREL BISULFATE 95727862894 Bar Barreto MD Active LASIX 20 MG TAB 1 po qd PRN Edema FUROSEMIDE 66393464913 Active Andre Barreto MD Active ATORVASTATIN CALCIUM 80 MG TABS 1 po qHS ATORVASTATIN CALCIUM 38771301196 Active Andre Barreto MD Active SYMBICORT 160-4.5 MCG/ACT AERO 2 puff BID BUDESONIDE- FORMOTEROL FUMARATE 25084086992 Active Andre Barreto MD Active PROAIR HFA 108 (90 BASE) MCG/ACT AERS 2 puffs four times a day as needed 2015 ALBUTEROL SULFATE 89647166441 Active Andre Barreto MD Active FLUOXETINE HCL 40 MG ORAL CAPS 1 po qd FLUOXETINE HCL 35995714578 Active Andre Barreto MD Active BENICAR HCT 40-25 MG TABS Take one by mouth daily OLMESARTAN MEDOXOMIL-HCTZ 33748262118 No Longer Active Andre Barreto MD Active LOSARTAN POTASSIUM-HCTZ 100-25 MG TABS 1 po qd LOSARTAN POTASSIUM-HCTZ 94099788338 Active Andre Barreto MD Active BETAMETHASONE DIPROPIONATE 0.05 % OINT Apply to affected areas BID for up to 2 weeks BETAMETHASONE DIPROPIONATE 94273139004 No Longer Active Andre Barreto MD Active ZOFRAN 4 MG TABS 1 po q6hr PRN Nausea ONDANSETRON HCL 11624004082 No Longer Active Andre Barreto MD Active CIPRO 500 MG TAB 1 tablet by mouth twice daily CIPROFLOXACIN HCL 21830351684 No Longer Active Andre Barreto MD Active SYMBICORT 160-4.5 MCG/ACT AERO 2 puffs inhaled bid BUDESONIDE- FORMOTEROL FUMARATE 14782125024 No Longer Active Andre Barreto MD Active DICLOFENAC SODIUM 75 MG TBEC 1 tablet by mouth twice daily DICLOFENAC SODIUM 94391545834 No Longer Active Andre Barreto MD Active PROZAC 40 MG CAPS 1 cap by mouth at bedtime FLUOXETINE HCL 07759725298 No Longer Active Andre Barreto MD Active HYDROCODONE-ACETAMINOPHEN 5-325 MG TABS 1 po q 6hr PRN Pain HYDROCODONE-ACETAMINOPHEN 51242970577 No Longer Active Andre Barreto MD Active TRAMADOL HCL 50 MG TABS 2 po q 6 hrs prn TRAMADOL HCL 92976607240 Active Andre Barreto MD Active HYDROCODONE-ACETAMINOPHEN 5-325 MG TABS 1 po q 6hr PRN Pain HYDROCODONE-ACETAMINOPHEN 5-325 MG TABS 863930 HYDROCODONE-ACETAMINOPHEN Inactive PROZAC 40 MG CAPS 1 cap by mouth at bedtime PROZAC 40 MG CAPS 192154 FLUOXETINE HCL Inactive DICLOFENAC SODIUM 75 MG TBEC 1 tablet by mouth twice daily DICLOFENAC SODIUM 75 MG TBEC 080359 DICLOFENAC SODIUM Inactive SYMBICORT 160-4.5 MCG/ACT AERO 2 puffs inhaled bid SYMBICORT 160-4.5 MCG/ACT AERO BUDESONIDE-FORMOTEROL FUMARATE Inactive ZOFRAN 4 MG TABS 1 po q6hr PRN Nausea ZOFRAN 4 MG TABS 569780 ONDANSETRON HCL Inactive BETAMETHASONE DIPROPIONATE 0.05 % OINT Apply to affected areas BID for up to 2 weeks BETAMETHASONE DIPROPIONATE 0.05 % OINT 048039 BETAMETHASONE DIPROPIONATE Inactive BENICAR HCT 40-25 MG TABS Take one by mouth daily BENICAR HCT 40-25 MG TABS 616892 OLMESARTAN MEDOXOMIL-HCTZ Inactive CIPRO 500 MG TAB 1 tablet by mouth twice daily CIPRO 500 MG TAB 732141 CIPROFLOXACIN HCL Inactive Advance Directives Directive Description [...] ... - Chemistry sodium, serum 140 mmol/L 753-744 0615/06/28 carbon dioxide, venous blood 32.4 mmol/L 21.0-32.0 potassium, serum 4.0 mmol/L 3.5-5.2 chloride, serum 101 mmol/L 98-107 blood glucose 108 mg/dL 65-110 urea nitrogen, blood 20 mg/dL 7-18 creatinine, serum 0.98 mg/dL 0.55-1.30 alanine aminotransferase (SGPT), serum 44 U/L 12-78 aspartate aminotransferase (SGOT), serum 27 U/L 15-37 calcium, serum 9.4 mg/dL 8.5-10.1 bilirubin, serum, total 0.30 mg/dL 0.00-1.00 cholesterol, serum 264 mg/dL 173-506 3451/06/28 triglyceride, serum, fasting 146 mg/dL 30-200 HDL [...] Panel - Chemistry sodium, serum 143 mmol/L 115-802 2720/09/27 carbon dioxide, venous blood 30.1 mmol/L 21.0-32.0 potassium, serum 3.9 mmol/L 3.5-5.2 chloride, serum 107 mmol/L 98-107 blood glucose 114 mg/dL 65-110 urea nitrogen, blood 14 mg/dL 7-18 creatinine, serum 0.79 mg/dL 0.55-1.30 alanine aminotransferase (SGPT), serum 44 U/L 12-78 aspartate aminotransferase (SGOT), serum 25 U/L 15-37 calcium, serum 8.5 mg/dL 8.5-10.1 bilirubin, serum, total 0.30 mg/dL 0.00-1.00 cholesterol, serum 152 mg/dL 869-525 1392/09/27 triglyceride, serum, fasting 85 mg/dL 30-200 HDL cholesterol, serum 59 mg/dL 32-96 LDL cholesterol, serum 76 mg/dL 0-130 Encounters Code Encounter Date Provider Facility CPT-47036 Level 4 Est. Patient 11:53:39 BOTTOM BRUSHER Andre Barreto MD [facility] CPT-26657 Level 4 Est. Patient 14:21:31 CDT Andre Barreto MD [facility] CPT-36154 Level 4 Est. Patient 15:24:17 CDT Andre Barreto MD [facility] CPT-16972 Level 3 Est. Patient 10:36:40 CDT Andre Barreto MD [facility] CPT-48012 Level 4 Est. Patient 11:27:43 CDT Andre Barreto MD [facility] CPT-46291 Level 3 Est. Patient 10:57:31 BOTTOM BRUSHER Andre Barreto MD [facility] CPT-67907 Level 3 Est. Patient 13:53:13 BOTTOM BRUSHER Andre Barreto MD [facility] CPT-81991 Level 3 Est. Patient 09:16:12 CDT Andre Barreto MD [facility] CPT-84851 Level 3 Est. Patient 14:50:35 CDT Andre Barreto MD [facility] Procedures Code Procedure Name Date Entry Date Standard Description CPT-22298 First Vx - Ix admin for Medicare patients 17:55:11 BOTTOM BRUSHER CPT-68703 Fluzone High-Dose Intramuscular Suspension 17:55:11 BOTTOM BRUSHER CPT-38538 Venipuncture Draw Fee 14:11:36 CDT CPT-89887 Lipid - LAB USE ONLY 14:11:36 CDT CPT-65939 CMP - LAB USE ONLY 14:11:36 CDT CPT-G0438 Initial Annual Wellness Exam 13:29:06 CDT CPT-G0009 Administration of Pneumococcal Vaccine 13:26:57 CDT CPT-42878 Prevnar 13 Intramuscular Suspension 13:26:56 CDT 08/19 CPT-21111 Bone Density - XRAY USE ONLY 09:30:16 CDT CPT-Cryo Cryotherapy 08:59:26 BOTTOM BRUSHER CPT-Cryo Cryotherapy 08:46:02 CDT CPT-24130 Chest 2V Frontal and Lat 14:02:13 BOTTOM BRUSHER
--- OUTSIDE RECORDS SUMMARY | 2018-03-16 19:46 | XMS REPORT | Clinical Summary ---
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 [...] Unsteady gait ICD-781.2 Inactive Andre Barreto MD Weakness, muscle ICD-728.87 Inactive Andre Barreto MD Medication List Medication Instructions Start Date Stop Date Generic Name NDC Status Provider Patient Instruction DETROL 2 MG ORAL TABS 1 po qd TOLTERODINE TARTRATE 68347320693 Active Andre Barreto MD Active NITROGLYCERIN 0.4 MG SL SUBL 1 SL q5min PRN Chest pain up to 3 doses NITROGLYCERIN 21258503762 Active Andre Barreto MD Active TOPROL XL 50 MG ORAL [id number] 1 po qd METOPROLOL SUCCINATE 68549052769 Active Andre Barreto MD Active PLAVIX 75 MG TABS 1 po qd CLOPIDOGREL BISULFATE 61640140450 Active Andre Barreto MD Active LASIX 20 MG TAB 1 po qd PRN Edema FUROSEMIDE 54171807987 Bar Barreto MD Active ATORVASTATIN CALCIUM 80 MG TABS 1 po qHS ATORVASTATIN CALCIUM 17386059294 Active Andre Barreto MD Active SYMBICORT 160-4.5 MCG/ACT AERO 2 puff BID BUDESONIDE- FORMOTEROL FUMARATE 54597540160 Active Andre Barreto MD Active PROAIR HFA 108 (90 BASE) MCG/ACT AERS 2 puffs four times a day as needed 2015 ALBUTEROL SULFATE 39243510566 Active Andre Barreto MD Active FLUOXETINE HCL 40 MG ORAL CAPS 1 po qd FLUOXETINE HCL 01124953896 Active Andre Barreto MD Active BENICAR HCT 40-25 MG TABS Take one by mouth daily OLMESARTAN MEDOXOMIL-HCTZ 06490661208 No Longer Active Andre Barreto MD Active LOSARTAN POTASSIUM-HCTZ 100-25 MG TABS 1 po qd LOSARTAN POTASSIUM-HCTZ 69670527565 Active Andre Barreto MD Active BETAMETHASONE DIPROPIONATE 0.05 % OINT Apply to affected areas BID for up to 2 weeks BETAMETHASONE DIPROPIONATE 20844185723 No Longer Active Andre Barreto MD Active ZOFRAN 4 MG TABS 1 po q6hr PRN Nausea ONDANSETRON HCL 04791095561 No Longer Active Andre Barreto MD Active CIPRO 500 MG TAB 1 tablet by mouth twice daily CIPROFLOXACIN HCL 85241346556 No Longer Active Andre Barreto MD Active SYMBICORT 160-4.5 MCG/ACT AERO 2 puffs inhaled bid BUDESONIDE- FORMOTEROL FUMARATE 43008561606 No Longer Active Andre Barreto MD Active DICLOFENAC SODIUM 75 MG TBEC 1 tablet by mouth twice daily DICLOFENAC SODIUM 72472551758 No Longer Active Andre Barreto MD Active PROZAC 40 MG CAPS 1 cap by mouth at bedtime FLUOXETINE HCL 71555386948 No Longer Active Andre Barreto MD Active HYDROCODONE-ACETAMINOPHEN 5-325 MG TABS 1 po q 6hr PRN Pain HYDROCODONE-ACETAMINOPHEN 63333696281 No Longer Active Andre Barreto MD Active TRAMADOL HCL 50 MG TABS 2 po q 6 hrs prn TRAMADOL HCL 05054275877 Active Andre Barreto MD Active AMBIEN 5 MG TABS 1 po a hs prn ZOLPIDEM TARTRATE 81358294191 Active Andre Barreto MD Active HYDROCODONE-ACETAMINOPHEN 5-325 MG TABS 1 po q 6hr PRN Pain HYDROCODONE-ACETAMINOPHEN 5-325 MG TABS 508794 HYDROCODONE-ACETAMINOPHEN Inactive PROZAC 40 MG CAPS 1 cap by mouth at bedtime PROZAC 40 MG CAPS 877428 FLUOXETINE HCL Inactive DICLOFENAC SODIUM 75 MG TBEC 1 tablet by mouth twice daily DICLOFENAC SODIUM 75 MG TBEC 369066 DICLOFENAC SODIUM Inactive SYMBICORT 160-4.5 MCG/ACT AERO 2 puffs inhaled bid SYMBICORT 160-4.5 MCG/ACT AERO BUDESONIDE-FORMOTEROL FUMARATE Inactive ZOFRAN 4 MG TABS 1 po q6hr PRN Nausea ZOFRAN 4 MG TABS 051086 ONDANSETRON HCL Inactive BETAMETHASONE DIPROPIONATE 0.05 % OINT Apply to affected areas BID for up to 2 weeks BETAMETHASONE DIPROPIONATE 0.05 % OINT 283213 BETAMETHASONE DIPROPIONATE Inactive BENICAR HCT 40-25 MG TABS Take one by mouth daily BENICAR HCT 40-25 MG TABS 637309 OLMESARTAN MEDOXOMIL-HCTZ Inactive CIPRO 500 MG TAB 1 tablet by mouth twice daily CIPRO 500 MG TAB 225388 CIPROFLOXACIN HCL Inactive Advance Directives Directive Description [...] ... - Chemistry sodium, serum 140 mmol/L 958-190 3881/06/28 carbon dioxide, venous blood 32.4 mmol/L 21.0-32.0 potassium, serum 4.0 mmol/L 3.5-5.2 chloride, serum 101 mmol/L 98-107 blood glucose 108 mg/dL 65-110 urea nitrogen, blood 20 mg/dL 7-18 creatinine, serum 0.98 mg/dL 0.55-1.30 alanine aminotransferase (SGPT), serum 44 U/L 12-78 aspartate aminotransferase (SGOT), serum 27 U/L 15-37 calcium, serum 9.4 mg/dL 8.5-10.1 bilirubin, serum, total 0.30 mg/dL 0.00-1.00 cholesterol, serum 264 mg/dL 278-333 7497/06/28 triglyceride, serum, fasting 146 mg/dL 30-200 HDL cholesterol, serum 70 mg/dL 32-96 LDL cholesterol, serum 165 mg/dL 0-130 hemoglobin A1C, blood, as % of total hemoglobin 6.0 % 4.3-6.0 albumin/creatinine ratio, urine < 30 mg/g mg/g{creat} 0-29 Lab Report: CBC, Comp. Metabolic Panel, Lipid Panel, HGBA1C, MICROALB/CR ... - Hematology mean corpuscular volume, RBC 94 fL 80-97 hematocrit, blood 41.8 % 36.0-46.0 hemoglobin, blood 14.0 g/dL 12.0-16.0 erythrocyte (RBC) count 4.43 10^6/MM^3 10*6/mm3 4.04-5.48 leukocyte count, blood 8.2 10^3/MM^3 10*3/mm3 4.6-10.2 mean corpuscular hemoglobin, RBC 31.5 pg 27.0-31.2 mean corpuscular hemoglobin concentration, RBC 33.4 G/DL % 31.8- 35.4 red blood cell distribution width 13.9 % 11.6-14.8 platelet count 283 10^3/MM^3 10*3/mm3 142-424 Lab Report: CBC, Comp. Metabolic Panel, Lipid Panel, HGBA1C, MICROALB/CR ... - Lab microalbumin, urine 30 0-19 Lab Report: Comp. Metabolic Panel, Lipid Panel - Chemistry sodium, serum 143 mmol/L 494-346 0434/09/27 creatinine, serum 0.79 mg/dL 0.55-1.30 alanine aminotransferase (SGPT), serum 44 U/L 12-78 aspartate aminotransferase (SGOT), serum 25 U/L 15-37 calcium, serum 8.5 mg/dL 8.5-10.1 bilirubin, serum, total 0.30 mg/dL 0.00-1.00 cholesterol, serum 152 mg/dL 871-639 4459/09/27 triglyceride, serum, fasting 85 mg/dL 30-200 HDL cholesterol, serum 59 mg/dL 32-96 LDL cholesterol, serum 76 mg/dL 0-130 carbon dioxide, venous blood 30.1 mmol/L 21.0-32.0 potassium, serum 3.9 mmol/L 3.5-5.2 chloride, serum 107 mmol/L 98-107 blood glucose 114 mg/dL 65-110 urea nitrogen, blood 14 mg/dL 7-18 Encounters Code Encounter Date Provider Facility CPT-10916 Level 4 Est. 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 Patient 14:21:31 CDT Andre Barreto MD [facility] CPT-76741 Level 4 Est. Patient 15:24:17 CDT Andre Barreto MD [facility] CPT-43792 Level 3 Est. Patient 10:36:40 CDT Andre Barreto MD [facility] CPT-19677 Level 4 Est. Patient 11:27:43 CDT Andre Barreto MD [facility] CPT-55774 Level 3 Est. 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 CPT-10113 Level 3 Est. 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 CPT-54886 Level 3 Est. Patient 09:16:12 CDT Andre Barreto MD [facility] CPT-73438 Level 3 Est. Patient 14:50:35 CDT Andre Barreto MD 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
--- OUTSIDE RECORDS SUMMARY | 2018-03-16 19:47 | XMS REPORT | Clinical Summary ---
Author Author Admin, [employer]LINK Organization [employer] Address Unknown Phone Unavailable Allergies, Adverse Reactions, Alerts Allergy Name Reaction Description Start Date Severity Status Provider SULFA Mild No Longer Active Jillina Frazell RESPIRATORY EQUIPMENT ASSISTANT PENICILLIN Mild No Longer Active Jillina Frazell RESPIRATORY EQUIPMENT ASSISTANT ZINC Mild No Longer Active Jillina Frazell RESPIRATORY EQUIPMENT ASSISTANT SULFA Critical No Longer Active Marcelle [...] Coronary atherosclerosis of unspecified type of vessel, [place] or graft Obstructive sleep apnea 327.23 Active [...] Apply to affected area BID 05/18 MUPIROCIN 60573936516 No Longer Active Moira Price MA Active CLINDAMYCIN HCL 300 MG ORAL CAPSULE 1 po QID x 7 days CLINDAMYCIN HCL 76595962341 No Longer Active Jillina Frazell RESPIRATORY EQUIPMENT ASSISTANT Active BACTRIM DS 800-160 MG ORAL TABLET 1 tab by mouth twice daily 2017 TRIMETHOPRIM-SULFAMETHOXAZOLE 50935775470 No Longer Active Jillina Frazell RESPIRATORY EQUIPMENT ASSISTANT Active GUAIFENESIN DM 400-20 MG ORAL TABLET 1 pill by mouth twice daily, if needed for cough DEXTROMETHORPHAN-GUAIFENESIN 93724633113 Active Jillina Frazell RESPIRATORY EQUIPMENT ASSISTANT Active CEFDINIR 300 MG ORAL CAPSULE by mouth twice a day CEFDINIR 90806436601 No Longer Active Jillina Frazell RESPIRATORY EQUIPMENT ASSISTANT Active BENZONATATE 200 MG ORAL CAPSULE 1 three times a day as needed for cough 03/27 BENZONATATE 38511337928 No Longer Active Luna Prabhakar Active ZITHROMAX Z-NEVAEH 250 MG ORAL TABLET 2 today and then 1 daily for 4 days 03/27 AZITHROMYCIN 54429158605 No Longer Active Luna Prabhakar Active PREDNISONE 20 MG ORAL TABLET 2 daily for 3 days then 1 daily for 3 days 03/27 PREDNISONE 25053516330 No Longer Active Luna Prabhakar Active ATORVASTATIN CALCIUM 40 MG ORAL TABLET 1 po qHS ATORVASTATIN CALCIUM 62440796027 Active Marcelle VERA Active CLOPIDOGREL BISULFATE 75 MG ORAL TABLET 1 po qd CLOPIDOGREL BISULFATE 76915263334 Active Andre Barreto MD Active FUROSEMIDE 20 MG ORAL TABLET 1 po qd PRN Edema FUROSEMIDE 27394037885 Active Andre Barreto MD Active PROAIR HFA 108 (90 Base) MCG/ACT INHALATION AEROSOL SOLUTION 2 puffs q4hr PRN Shortness of air/Wheezing ALBUTEROL SULFATE 13208094950 Active Andre Barreto MD Active ATORVASTATIN CALCIUM 80 MG ORAL TABLET 1 po qHS ATORVASTATIN CALCIUM 21444882611 No Longer Active Andre Barreto MD Active AMBIEN 5 MG ORAL TABLET 1 po qHS PRN Insomnia ZOLPIDEM TARTRATE 89313409508 Active Andre Barreto MD Active DETROL 2 MG ORAL TABLET 1 po qd TOLTERODINE TARTRATE 12026866214 Active Andre Barreto MD Active NITROGLYCERIN 0.4 MG SUBLINGUAL TABLET SUBLINGUAL 1 SL q5min PRN Chest pain up to 3 doses NITROGLYCERIN 38972078836 Active Andre Barreto MD Active TOPROL XL 50 MG ORAL TABLET EXTENDED RELEASE 24 HOUR 1 po qd METOPROLOL SUCCINATE 63135422629 Active Andre Barreto MD Active SYMBICORT 160-4.5 MCG/ACT INHALATION AEROSOL 2 puff BID BUDESONIDE-FORMOTEROL FUMARATE 60169173727 Active Cayla VERA Active FLUOXETINE HCL 40 MG ORAL CAPSULE 1 po qd FLUOXETINE HCL 87237146269 Active Andre Barreto MD Active BENICAR HCT 40-25 MG ORAL TABLET Take one by mouth daily OLMESARTAN MEDOXOMIL-HCTZ 92262615838 No Longer Active Andre Barreto MD Active LOSARTAN POTASSIUM-HCTZ 100-25 MG ORAL TABLET 1 po qd LOSARTAN POTASSIUM-HCTZ 24866531246 Active Andre Barreto MD Active BETAMETHASONE DIPROPIONATE 0.05 % EXTERNAL OINTMENT Apply to affected areas BID for up to 2 weeks BETAMETHASONE DIPROPIONATE 11611746952 No Longer Active Andre Barreto MD Active ZOFRAN 4 MG ORAL TABLET 1 po q6hr PRN Nausea ONDANSETRON HCL 81822219191 No Longer Active Andre Barreto MD Active CIPRO 500 MG ORAL TABLET 1 tablet by mouth twice daily CIPROFLOXACIN HCL 35954862376 No Longer Active Andre Barreto MD Active SYMBICORT 160-4.5 MCG/ACT INHALATION AEROSOL 2 puffs inhaled bid BUDESONIDE-FORMOTEROL FUMARATE 58087303019 No Longer Active Andre Barreto MD Active DICLOFENAC SODIUM 75 MG ORAL TABLET DELAYED RELEASE 1 tablet by mouth twice daily DICLOFENAC SODIUM 10662006618 No Longer Active Andre Barreto MD Active PROZAC 40 MG ORAL CAPSULE 1 cap by mouth at bedtime FLUOXETINE HCL 85516596089 No Longer Active Andre Barreto MD Active HYDROCODONE-ACETAMINOPHEN 5-325 MG ORAL TABLET 1 po q 6hr PRN Pain HYDROCODONE-ACETAMINOPHEN 51925786026 No Longer Active Andre Barreto MD Active TRAMADOL HCL 50 MG ORAL TABLET 2 po q 6 hrs prn TRAMADOL HCL 72786662793 Active Andre Barreto MD Active HYDROCODONE-ACETAMINOPHEN 5-325 MG ORAL TABLET 1 po q 6hr PRN Pain HYDROCODONE-ACETAMINOPHEN 5-325 MG ORAL TABLET 944437 HYDROCODONE- ACETAMINOPHEN Inactive PROZAC 40 MG ORAL CAPSULE 1 cap by mouth at bedtime PROZAC 40 MG ORAL CAPSULE 485160 FLUOXETINE HCL Inactive DICLOFENAC SODIUM 75 MG ORAL TABLET DELAYED RELEASE 1 tablet by mouth twice daily DICLOFENAC SODIUM 75 MG ORAL TABLET DELAYED RELEASE 438558 DICLOFENAC SODIUM Inactive SYMBICORT 160-4.5 MCG/ACT INHALATION AEROSOL 2 puffs inhaled bid SYMBICORT 160-4.5 MCG/ACT INHALATION AEROSOL BUDESONIDE-FORMOTEROL FUMARATE Inactive ZOFRAN 4 MG ORAL TABLET 1 po q6hr PRN Nausea ZOFRAN 4 MG ORAL TABLET 923384 ONDANSETRON HCL Inactive BETAMETHASONE DIPROPIONATE 0.05 % EXTERNAL OINTMENT Apply to affected areas BID for up to 2 weeks BETAMETHASONE DIPROPIONATE 0.05 % EXTERNAL OINTMENT 365061 BETAMETHASONE DIPROPIONATE Inactive BENICAR HCT 40-25 MG ORAL TABLET Take one by mouth daily BENICAR HCT 40-25 MG ORAL TABLET 155833 OLMESARTAN MEDOXOMIL-HCTZ Inactive ATORVASTATIN CALCIUM 80 MG ORAL TABLET 1 po qHS ATORVASTATIN CALCIUM 80 MG ORAL TABLET 051134 ATORVASTATIN CALCIUM Inactive PREDNISONE 20 MG ORAL TABLET 2 daily for 3 days then 1 daily for 3 days 03/27 PREDNISONE 20 MG ORAL TABLET 840316 PREDNISONE Inactive ZITHROMAX Z-NEVAEH 250 MG ORAL TABLET 2 today and then 1 daily for 4 days 03/27 ZITHROMAX Z-NEVAEH 250 MG ORAL TABLET 737449 AZITHROMYCIN Inactive BENZONATATE 200 MG ORAL CAPSULE 1 three times a day as needed for cough 03/27 BENZONATATE 200 MG ORAL CAPSULE 486045 BENZONATATE Inactive BACTRIM DS 800-160 MG ORAL TABLET 1 tab by mouth twice daily 2017 BACTRIM DS 800-160 MG ORAL TABLET 716566 TRIMETHOPRIM- SULFAMETHOXAZOLE Inactive BACTROBAN 2 % EXTERNAL OINTMENT Apply to affected area BID 05/18 BACTROBAN 2 % EXTERNAL OINTMENT 707367 MUPIROCIN Inactive CIPRO 500 MG ORAL TABLET 1 tablet by mouth twice daily CIPRO 500 MG ORAL TABLET 391062 CIPROFLOXACIN HCL Inactive CEFDINIR 300 MG ORAL CAPSULE by mouth twice a day CEFDINIR 300 MG ORAL CAPSULE 393597 CEFDINIR Inactive CLINDAMYCIN HCL 300 MG ORAL CAPSULE 1 po QID x 7 days CLINDAMYCIN HCL 300 MG ORAL CAPSULE 054449 CLINDAMYCIN HCL Inactive Advance Directives Directive Description [...] 6.2 % 4.3-6.0 cholesterol, serum 229 mg/dL 545-761 0788/07/24 triglyceride, serum, fasting 106 mg/dL 30-200 HDL cholesterol, serum 60 mg/dL 32-60 LDL cholesterol, serum 148 mg/dL 0-130 sodium, serum 139 mmol/L 928-169 8560/07/24 carbon dioxide, venous blood 34.8 mmol/L 21.0-32.0 [...] Panel - Chemistry cholesterol, serum 275 mg/dL 287-329 8529/11/07 triglyceride, serum, fasting 166 mg/dL 30-200 HDL cholesterol, serum 62 mg/dL 32-60 LDL cholesterol, serum 180 mg/dL 0-130 sodium, serum 141 mmol/L 170-183 3005/11/07 carbon dioxide, venous blood 26.3 mmol/L 21.0-32.0 [...] 0-19 Encounters Code Encounter Date Provider Facility CPT-49909 Level 3 Est. Patient 14:29:01 CDT Esa Jackson MD [facility] CPT-41312 Level 3 Est. Patient 14:06:16 CDT Andre Barreto MD [facility] CPT-62031 Level 3 Est. Patient 09:16:36 CDT David King [facility]-03198 Level 3 Est. Patient 09:24:01 [employer] David King [facility] CPT-53926 Level 3 Est. Patient 13:01:07 [employer]SEM[employer] Solitario Howe MD [facility]-94595 Level 4 Est. Patient 10:26:48 [employer]SEMBLER [employer] Andre Barreto MD [facility] CPT-67772 Level 4 Est. Patient 09:45:06 CDT Andre Barreto MD [facility] CPT-47148 Level 4 Est. Patient 11:53:39 ASSEMBLER [employer] Andre Barreto MD [facility] CPT-80474 Level 4 Est. Patient 14:21:31 CDT Andre Barreto MD [facility] CPT-03750 Level 4 Est. Patient 15:24:17 CDT Andre Barreto MD [facility] CPT-27654 Level 3 Est. Patient 10:36:40 CDT Andre Barreto MD [facility] CPT-66657 Level 4 Est. Patient 11:27:43 CDT Andre Barreto MD [facility] CPT-35557 Level 3 Est. Patient 10:57:31 ASSEMBLER [employer] Andre Barreto MD [facility] CPT-39906 Level 3 Est. Patient 13:53:13 ASSEMBLER [employer] Andre Barreto MD [facility] CPT-75014 Level 3 Est. Patient 09:16:12 CDT Andre Barreto MD [facility] CPT-64401 Level 3 Est. Patient 14:50:35 CDT Andre Barreto MD [facility] Procedures Code Procedure Name Date Entry Date Standard Description CPT-21232 Postop F/U Visit 14:31:27 CDT CPT-50743 Postop F/U Visit 14:30:20 CDT CPT-57900 Sono pelvis coley bladder only - XRAY USE ONLY 15:07:39 CDT CPT-59215 First Vx - Ix admin for Medicare patients 13:56:44 [employer]SEMBLER [employer] CPT-09473 Zostavax Subcutaneous Solution Reconstituted 58075 UNT/0.65ML 12/22 13:56:44 [employer]SEMBLER [employer] CPT-G0009 Administration of Pneumococcal Vaccine 10:12:50 CDT CPT-45479 Pneumovax 23 Injection Injectable 25 MCG/0.5ML 10:12:50 CDT CPT-G0439 Subsequent Annual Wellness Exam 09:49:25 CDT CPT-61029 First Vx - Ix admin for Medicare patients 17:55:11 [employer]SEMBLER [employer] CPT-89559 Fluzone High-Dose Intramuscular Suspension 17:55:11 [employer]SEMBLER [employer] CPT-11027 Venipuncture Draw Fee 14:11:36 CDT CPT-58165 Lipid - LAB USE ONLY 14:11:36 CDT CPT-33300 CMP - LAB USE ONLY 14:11:36 CDT CPT-G0438 Initial Annual Wellness Exam 13:29:06 CDT CPT-G0009 Administration of Pneumococcal Vaccine 13:26:57 CDT CPT-67788 Prevnar 13 Intramuscular Suspension 13:26:56 CDT 08/19 CPT-47765 Bone Density - XRAY USE ONLY 09:30:16 CDT CPT-Cryo Cryotherapy 08:59:26 [employer]SEMBLER [employer] CPT-Cryo Cryotherapy 08:46:02 CDT CPT-96178 Chest 2V Frontal and Lat 14:02:13 ASSEMBLER [employer]
--- OUTSIDE RECORDS SUMMARY | 2018-03-16 19:48 | XMS REPORT | Clinical Summary ---
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 Other dependence on machines, supplemental oxygen [...] tag ICD-701.9 Inactive Andre Barreto MD 2014 Seborrheic keratosis ICD-702.19 Inactive Andre Barreto MD Dyshidrotic eczema, hands ICD-705.81 Inactive Andre Barreto MD Postmenopausal status ICD-V49.81 Inactive Andre Barreto MD Family history of osteoporosis ICD-V17.81 Andressa Barreto MD Unsteady gait ICD-781.2 Inactive Andre Barreto MD Actinic keratosis ICD-702.0 Inactive Andre Barreto MD Weakness, muscle ICD-728.87 Andressa Barreto MD Medication List Medication Instructions Start Date Stop Date Generic Name NDC Status Provider Patient Instruction PREDNISONE 20 MG ORAL TABLET 2 daily for 3 days then 1 daily for 3 days 03/27 PREDNISONE 57963149430 Active Solitario Howe MD Active BENZONATATE 200 MG ORAL CAPSULE 1 three times a day as needed for cough 03/27 BENZONATATE 11140364087 Active Solitario Howe MD Active ZITHROMAX Z-NEVAEH 250 MG ORAL TABLET 2 today and then 1 daily for 4 days 03/27 AZITHROMYCIN 64614287728 Active Solitario Howe MD Active ATORVASTATIN CALCIUM 40 MG ORAL TABLET 1 po qHS ATORVASTATIN CALCIUM 86641784013 Active Marcelle Key RMA Active CLOPIDOGREL BISULFATE 75 MG ORAL TABLET 1 po qd CLOPIDOGREL BISULFATE 33428936970 Active Andre Barreto MD Active FUROSEMIDE 20 MG ORAL TABLET 1 po qd PRN Edema FUROSEMIDE 66279755852 Active Andre Barreto MD Active PROAIR HFA 108 (90 Base) MCG/ACT INHALATION AEROSOL SOLUTION 2 puffs q4hr PRN Shortness of air/Wheezing ALBUTEROL SULFATE 10180345462 Active Andre Barreto MD Active ATORVASTATIN CALCIUM 80 MG ORAL TABLET 1 po qHS ATORVASTATIN CALCIUM 17439363262 No Longer Active Andre Barreto MD Active AMBIEN 5 MG ORAL TABLET 1 po qHS PRN Insomnia ZOLPIDEM TARTRATE 24750989866 Active Andre Barreto MD Active DETROL 2 MG ORAL TABLET 1 po qd TOLTERODINE TARTRATE 99888694960 Active Andre Barreto MD Active NITROGLYCERIN 0.4 MG SUBLINGUAL TABLET SUBLINGUAL 1 SL q5min PRN Chest pain up to 3 doses NITROGLYCERIN 19905410032 Active Andre Barreto MD Active TOPROL XL 50 MG ORAL TABLET EXTENDED RELEASE 24 HOUR 1 po qd METOPROLOL SUCCINATE 38382559494 Active Andre Barreto MD Active SYMBICORT 160-4.5 MCG/ACT INHALATION AEROSOL 2 puff BID BUDESONIDE-FORMOTEROL FUMARATE 19223528914 Active Cayla Flanagan [facility] Active FLUOXETINE HCL 40 MG ORAL CAPSULE 1 po qd FLUOXETINE HCL 78754597112 Active Andre Barreto MD Active BENICAR HCT 40-25 MG ORAL TABLET Take one by mouth daily OLMESARTAN MEDOXOMIL-HCTZ 57300350034 No Longer Active Andre Barreto MD Active LOSARTAN POTASSIUM-HCTZ 100-25 MG ORAL TABLET 1 po qd LOSARTAN POTASSIUM-HCTZ 05960026387 Active Andre Barreto MD Active BETAMETHASONE DIPROPIONATE 0.05 % EXTERNAL OINTMENT Apply to affected areas BID for up to 2 weeks BETAMETHASONE DIPROPIONATE 28981545188 No Longer Active Andre Barreto MD Active ZOFRAN 4 MG ORAL TABLET 1 po q6hr PRN Nausea ONDANSETRON HCL 90542904521 No Longer Active Andre Barreto MD Active CIPRO 500 MG ORAL TABLET 1 tablet by mouth twice daily CIPROFLOXACIN HCL 83127839974 No Longer Active Andre Barreto MD Active SYMBICORT 160-4.5 MCG/ACT INHALATION AEROSOL 2 puffs inhaled bid BUDESONIDE-FORMOTEROL FUMARATE 85461212390 No Longer Active Andre Barreto MD Active DICLOFENAC SODIUM 75 MG ORAL TABLET DELAYED RELEASE 1 tablet by mouth twice daily DICLOFENAC SODIUM 42167197929 No Longer Active Andre Barreto MD Active PROZAC 40 MG ORAL CAPSULE 1 cap by mouth at bedtime FLUOXETINE HCL 42146979821 No Longer Active Andre Barreto MD Active HYDROCODONE-ACETAMINOPHEN 5-325 MG ORAL TABLET 1 po q 6hr PRN Pain HYDROCODONE-ACETAMINOPHEN 80691828680 No Longer Active Andre Barreto MD Active TRAMADOL HCL 50 MG ORAL TABLET 2 po q 6 hrs prn TRAMADOL HCL 68675106679 Active Andre Barreto MD Active HYDROCODONE-ACETAMINOPHEN 5-325 MG ORAL TABLET 1 po q 6hr PRN Pain HYDROCODONE-ACETAMINOPHEN 5-325 MG ORAL TABLET 577947 HYDROCODONE- ACETAMINOPHEN Inactive PROZAC 40 MG ORAL CAPSULE 1 cap by mouth at bedtime PROZAC 40 MG ORAL CAPSULE 021096 FLUOXETINE HCL Inactive DICLOFENAC SODIUM 75 MG ORAL TABLET DELAYED RELEASE 1 tablet by mouth twice daily DICLOFENAC SODIUM 75 MG ORAL TABLET DELAYED RELEASE 761589 DICLOFENAC SODIUM Inactive SYMBICORT 160-4.5 MCG/ACT INHALATION AEROSOL 2 puffs inhaled bid SYMBICORT 160-4.5 MCG/ACT INHALATION AEROSOL BUDESONIDE-FORMOTEROL FUMARATE Inactive ZOFRAN 4 MG ORAL TABLET 1 po q6hr PRN Nausea ZOFRAN 4 MG ORAL TABLET 983229 ONDANSETRON HCL Inactive BETAMETHASONE DIPROPIONATE 0.05 % EXTERNAL OINTMENT Apply to affected areas BID for up to 2 weeks BETAMETHASONE DIPROPIONATE 0.05 % EXTERNAL OINTMENT 535765 BETAMETHASONE DIPROPIONATE Inactive BENICAR HCT 40-25 MG ORAL TABLET Take one by mouth daily BENICAR HCT 40-25 MG ORAL TABLET 335894 OLMESARTAN MEDOXOMIL-HCTZ Inactive ATORVASTATIN CALCIUM 80 MG ORAL TABLET 1 po qHS ATORVASTATIN CALCIUM 80 MG ORAL TABLET 638376 ATORVASTATIN CALCIUM Inactive CIPRO 500 MG ORAL TABLET 1 tablet by mouth twice daily CIPRO 500 MG ORAL TABLET 202132 CIPROFLOXACIN HCL Inactive Advance Directives Directive Description [...] leukocyte count, blood 6.7 10^3/MM^3 10*3/mm3 4.6-10.2 mean corpuscular hemoglobin, RBC 30.0 pg 27.0-31.2 [...] Report: HGBA1C, CBC - Hematology mean corpuscular hemoglobin, RBC 30.3 pg 27.0-31.2 mean corpuscular hemoglobin concentration, RBC 32.2 G/DL % 31.8- 35.4 red blood cell distribution width 15.5 % 11.6-14.8 platelet count 245 10^3/MM^3 10*3/mm3 071-074 0743/11/07 leukocyte count, blood 8.0 10^3/MM^3 10*3/mm3 4.6-10.2 erythrocyte (RBC) count 4.40 10^6/MM^3 10*6/mm3 3.80-5.80 hemoglobin, blood 13.4 g/dL 12.0-16.0 hematocrit, blood 41.5 % 37.0-47.0 mean corpuscular volume, RBC 94 fL 80-97 Lab Report: HGBA1C, Lipid Panel, Comp. Metabolic Panel - Chemistry hemoglobin A1C, blood, as % of total hemoglobin 6.2 % 4.3-6.0 cholesterol, serum 229 mg/dL 397-369 5420/07/24 triglyceride, serum, fasting 106 mg/dL 30-200 HDL cholesterol, serum 60 mg/dL 32-60 LDL cholesterol, serum 148 mg/dL 0-130 sodium, serum 139 mmol/L 383-999 1300/07/24 carbon dioxide, venous blood 34.8 mmol/L 21.0-32.0 [...] Panel - Chemistry cholesterol, serum 275 mg/dL 190-054 6693/11/07 potassium, serum 4.0 mmol/L 3.5-5.2 chloride, serum [...] 180 mg/dL 0-130 sodium, serum 141 mmol/L 244-853 2649/11/07 carbon dioxide, venous blood 26.3 mmol/L 21.0-32.0 Lab Report: MICROALB/CREAT W/RATIO - Chemistry albumin/creatinine ratio, urine <30 mg/g Normal mg/g mg/g{creat} 0-29 Lab Report: MICROALB/CREAT W/RATIO - Lab microalbumin, urine 10 mg/L 0-19 Encounters Code Encounter Date Provider Facility CPT-30249 Level 3 Est. Patient 13:01:07 CAUSE ANALYST Solitario Howe MD [facility] CPT-93679 Level 4 Est. Patient 10:26:48 CAUSE ANALYST Andre Barreto MD [facility] CPT-01165 Level 4 Est. Patient 09:45:06 CDT Andre Barreto MD [facility] CPT-27660 Level 4 Est. Patient 11:53:39 CAUSE ANALYST Andre Barreto MD [facility] CPT-35365 Level 4 Est. Patient 14:21:31 CDT Andre Barreto MD [facility] CPT-84232 Level 4 Est. Patient 15:24:17 CDT Andre Barreto MD [facility] CPT-33180 Level 3 Est. Patient 10:36:40 CDT Andre Barreto MD [facility] CPT-40706 Level 4 Est. Patient 11:27:43 CDT Andre Barreto MD [facility] CPT-67808 Level 3 Est. Patient 10:57:31 CAUSE ANALYST Andre Barreto MD [facility] CPT-04910 Level 3 Est. Patient 13:53:13 CAUSE ANALYST Andre Barreto MD [facility] CPT-83036 Level 3 Est. Patient 09:16:12 CDT Andre Barreto MD [facility] CPT-49970 Level 3 Est. Patient 14:50:35 CDT Andre Barreto MD [facility] Procedures Code Procedure Name Date Entry Date Standard Description CPT-42038 First Vx - Ix admin for Medicare patients 13:56:44 CAUSE ANALYST CPT-96805 Zostavax Subcutaneous Solution Reconstituted 45346 UNT/0.65ML 12/22 13:56:44 CAUSE ANALYST CPT-G0009 Administration of Pneumococcal Vaccine 10:12:50 CDT CPT-60108 Pneumovax 23 Injection Injectable 25 MCG/0.5ML 10:12:50 CDT CPT-G0439 Subsequent Annual Wellness Exam 09:49:25 CDT CPT-38006 First Vx - Ix admin for Medicare patients 17:55:11 CAUSE ANALYST CPT-01933 Fluzone High-Dose Intramuscular Suspension 17:55:11 CAUSE ANALYST CPT-07543 Venipuncture Draw Fee 14:11:36 CDT CPT-64224 Lipid - LAB USE ONLY 14:11:36 CDT CPT-74915 CMP - LAB USE ONLY 14:11:36 CDT CPT-G0438 Initial Annual Wellness Exam 13:29:06 CDT CPT-G0009 Administration of Pneumococcal Vaccine 13:26:57 CDT CPT-77576 Prevnar 13 Intramuscular Suspension 13:26:56 CDT 08/19 CPT-11805 Bone Density - XRAY USE ONLY 09:30:16 CDT CPT-Cryo Cryotherapy 08:59:26 CAUSE ANALYST CPT-Cryo Cryotherapy 08:46:02 CDT CPT-85610 Chest 2V Frontal and Lat 14:02:13 CAUSE ANALYST
--- OUTSIDE RECORDS SUMMARY | 2018-03-16 19:48 | XMS REPORT | Clinical Summary ---
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, supplemental oxygen Osteopenia [...] MD 2014 Weakness, muscle ICD-728.87 Inactive Andre Barerto MD Dyshidrotic eczema, hands ICD-705.81 Inactive Andre Barreto MD Postmenopausal status ICD-V49.81 Inactive Andre Barreto MD Family history of osteoporosis ICD-V17.81 Inactive Andre Barreto MD Unsteady gait ICD-781.2 Inactive Andre Barreto MD Medication List Medication Instructions Start Date Stop Date Generic Name NDC Status Provider Patient Instruction ATORVASTATIN CALCIUM 80 MG TABS 1 po qHS ATORVASTATIN CALCIUM 40675253991 No Longer Active Andre Barreto MD Active AMBIEN 5 MG TABS 1 po qHS PRN Insomnia ZOLPIDEM TARTRATE 91353461390 Active Andre Barreto MD Active DETROL 2 MG ORAL TABS 1 po qd TOLTERODINE TARTRATE 23851526997 Active Andre Barreto MD Active NITROGLYCERIN 0.4 MG SL SUBL 1 SL q5min PRN Chest pain up to 3 doses NITROGLYCERIN 37163801340 Active Andre Barreto MD Active TOPROL XL 50 MG ORAL NT78C-MEU 1 po qd METOPROLOL SUCCINATE 66901812753 Active Andre aBrreto MD Active PLAVIX 75 MG TABS 1 po qd CLOPIDOGREL BISULFATE 02726864756 Active Andre Barreto MD Active LASIX 20 MG TAB 1 po qd PRN Edema FUROSEMIDE 28578175960 Active Andre Barreto MD Active SYMBICORT 160-4.5 MCG/ACT AERO 2 puff BID BUDESONIDE- FORMOTEROL FUMARATE 32234625328 Active Cayla VERA Active PROAIR HFA 108 (90 BASE) MCG/ACT AERS 2 puffs four times a day as needed 2015 ALBUTEROL SULFATE 13704633055 Active Andre Barreto MD Active FLUOXETINE HCL 40 MG ORAL CAPS 1 po qd FLUOXETINE HCL 75929887247 Active Andre Barerto MD Active BENICAR HCT 40-25 MG TABS Take one by mouth daily OLMESARTAN MEDOXOMIL-HCTZ 94644037983 No Longer Active Andre Barreto MD Active LOSARTAN POTASSIUM-HCTZ 100-25 MG TABS 1 po qd LOSARTAN POTASSIUM-HCTZ 66857188773 Active Andre Barreto MD Active BETAMETHASONE DIPROPIONATE 0.05 % OINT Apply to affected areas BID for up to 2 weeks BETAMETHASONE DIPROPIONATE 07504295889 No Longer Active Andre Barreto MD Active ZOFRAN 4 MG TABS 1 po q6hr PRN Nausea ONDANSETRON HCL 56330368481 No Longer Active Andre Barreto MD Active CIPRO 500 MG TAB 1 tablet by mouth twice daily CIPROFLOXACIN HCL 04320561236 No Longer Active Andre Barreto MD Active SYMBICORT 160-4.5 MCG/ACT AERO 2 puffs inhaled bid BUDESONIDE- FORMOTEROL FUMARATE 29778864265 No Longer Active Andre Barreto MD Active DICLOFENAC SODIUM 75 MG TBEC 1 tablet by mouth twice daily DICLOFENAC SODIUM 55487294808 No Longer Active Andre Barreto MD Active PROZAC 40 MG CAPS 1 cap by mouth at bedtime FLUOXETINE HCL 74630631772 No Longer Active Andre Barreto MD Active HYDROCODONE-ACETAMINOPHEN 5-325 MG TABS 1 po q 6hr PRN Pain HYDROCODONE-ACETAMINOPHEN 16881628950 No Longer Active Andre Barreto MD Active TRAMADOL HCL 50 MG TABS 2 po q 6 hrs prn TRAMADOL HCL 00000766758 Active Andre Barreto MD Active HYDROCODONE-ACETAMINOPHEN 5-325 MG TABS 1 po q 6hr PRN Pain HYDROCODONE-ACETAMINOPHEN 5-325 MG TABS 722925 HYDROCODONE-ACETAMINOPHEN Inactive PROZAC 40 MG CAPS 1 cap by mouth at bedtime PROZAC 40 MG CAPS 121523 FLUOXETINE HCL Inactive DICLOFENAC SODIUM 75 MG TBEC 1 tablet by mouth twice daily DICLOFENAC SODIUM 75 MG TBEC 837353 DICLOFENAC SODIUM Inactive SYMBICORT 160-4.5 MCG/ACT AERO 2 puffs inhaled bid SYMBICORT 160-4.5 MCG/ACT AERO BUDESONIDE-FORMOTEROL FUMARATE Inactive ZOFRAN 4 MG TABS 1 po q6hr PRN Nausea ZOFRAN 4 MG TABS 585758 ONDANSETRON HCL Inactive BETAMETHASONE DIPROPIONATE 0.05 % OINT Apply to affected areas BID for up to 2 weeks BETAMETHASONE DIPROPIONATE 0.05 % OINT 122470 BETAMETHASONE DIPROPIONATE Inactive BENICAR HCT 40-25 MG TABS Take one by mouth daily BENICAR HCT 40-25 MG TABS 237806 OLMESARTAN MEDOXOMIL-HCTZ Inactive ATORVASTATIN CALCIUM 80 MG TABS 1 po qHS ATORVASTATIN CALCIUM 80 MG TABS 174882 ATORVASTATIN CALCIUM Inactive CIPRO 500 MG TAB 1 tablet by mouth twice daily CIPRO 500 MG TAB 999856 CIPROFLOXACIN HCL Inactive Advance Directives Directive Description [...] Panel - Chemistry sodium, serum 143 mmol/L 244-311 4694/09/27 carbon dioxide, venous blood 30.1 mmol/L 21.0-32.0 potassium, serum 3.9 mmol/L 3.5-5.2 chloride, serum 107 mmol/L 98-107 blood glucose 114 mg/dL 65-110 urea nitrogen, blood 14 mg/dL 7-18 creatinine, serum 0.79 mg/dL 0.55-1.30 alanine aminotransferase (SGPT), serum 44 U/L 12-78 aspartate aminotransferase (SGOT), serum 25 U/L 15-37 calcium, serum 8.5 mg/dL 8.5-10.1 bilirubin, serum, total 0.30 mg/dL 0.00-1.00 cholesterol, serum 152 mg/dL 977-683 8614/09/27 triglyceride, serum, fasting 85 mg/dL 30-200 HDL cholesterol, serum 59 mg/dL 32-96 LDL cholesterol, serum 76 mg/dL 0-130 Lab Report: HGBA1C, Lipid Panel, Comp. Metabolic Panel - Chemistry hemoglobin A1C, blood, as % of total hemoglobin 6.2 % 4.3-6.0 cholesterol, serum 229 mg/dL 608-665 5363/07/24 triglyceride, serum, fasting 106 mg/dL 30-200 HDL cholesterol, serum 60 mg/dL 32-60 LDL cholesterol, serum 148 mg/dL 0-130 sodium, serum 139 mmol/L 622-719 4763/07/24 carbon dioxide, venous blood 34.8 mmol/L 21.0-32.0 [...] 0.00-1.00 Encounters Code Encounter Date Provider Facility CPT-39713 Level 4 Est. Patient 09:45:06 CDT Andre Barreto MD [facility] CPT-51210 Level 4 Est. 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 Patient 14:21:31 CDT Andre Barreto MD [facility] CPT-13549 Level 4 Est. Patient 15:24:17 CDT Andre Barreto MD [facility] CPT-51421 Level 3 Est. Patient 10:36:40 CDT Andre Barreto MD [facility] CPT-54811 Level 4 Est. Patient 11:27:43 CDT Andre Barreto MD [facility] CPT-15613 Level 3 Est. Patient 10:57:31 LAYBOY OPERATOR Andre Barreto MD [facility] CPT-42877 Level 3 Est. Patient 13:53:13 LAYBOY OPERATOR Andre Barreto MD [facility] CPT-49754 Level 3 Est. Patient 09:16:12 CDT Andre Barreto MD [facility] CPT-42461 Level 3 Est. Patient 14:50:35 CDT Andre Barreto MD [facility] Procedures Code Procedure Name Date Entry Date Standard Description CPT-G0009 Administration of Pneumococcal Vaccine 10:12:50 CDT CPT-93823 Pneumovax 23 Injection Injectable 25 MCG/0.5ML 10:12:50 CDT CPT-G0439 MC Subsequent Annual Wellness Exam 09:49:25 CDT CPT-06448 First Vx - Ix admin for Medicare patients 17:55:11 LAYBOY OPERATOR CPT-20673 Fluzone High-Dose Intramuscular Suspension 17:55:11 LAYBOY OPERATOR CPT-82169 Venipuncture Draw Fee 14:11:36 CDT CPT-99617 Lipid - LAB USE ONLY 14:11:36 CDT CPT-40729 CMP - LAB USE ONLY 14:11:36 CDT CPT-G0438 Initial Annual Wellness Exam 13:29:06 CDT CPT-G0009 Administration of Pneumococcal Vaccine 13:26:57 CDT CPT-85611 Prevnar 13 Intramuscular Suspension 13:26:56 CDT 08/19 CPT-30785 Bone Density - XRAY USE ONLY 09:30:16 CDT CPT-Cryo Cryotherapy 08:59:26 LAYBOY OPERATOR CPT-Cryo Cryotherapy 08:46:02 CDT CPT-01453 Chest 2V Frontal and Lat 14:02:13 LAYBOY OPERATOR
--- OUTSIDE RECORDS SUMMARY | 2018-03-16 19:49 | XMS REPORT | Clinical Summary ---
Author Author Admin, [employer] Organization [facility] Address Unknown Phone Unavailable Allergies, Adverse Reactions, Alerts Allergy Name Reaction Description Start Date Severity Status Provider SULFA Mild No Longer Active Jillina Frazell WATER RECLAMATION SYSTEMS OPERATOR PENICILLIN Mild No Longer Active Jillina Frazell WATER RECLAMATION SYSTEMS OPERATOR ZINC Mild No Longer Active Jillina Frazell WATER RECLAMATION SYSTEMS OPERATOR SULFA Critical No Longer Active Marcelle [...] Coronary atherosclerosis of unspecified type of vessel, [place] or graft Obstructive sleep apnea 327.23 Active [...] Apply to affected area BID 05/18 MUPIROCIN 94292953298 No Longer Active Moira Price MA Active CLINDAMYCIN HCL 300 MG ORAL CAPSULE 1 po QID x 7 days CLINDAMYCIN HCL 68523773193 No Longer Active Jillina Frazell WATER RECLAMATION SYSTEMS OPERATOR Active BACTRIM DS 800-160 MG ORAL TABLET 1 tab by mouth twice daily 2017 TRIMETHOPRIM-SULFAMETHOXAZOLE 07969484171 No Longer Active Jillina Frazell WATER RECLAMATION SYSTEMS OPERATOR Active GUAIFENESIN DM 400-20 MG ORAL TABLET 1 pill by mouth twice daily, if needed for cough DEXTROMETHORPHAN-GUAIFENESIN 28486096795 Active Jillina Frazell WATER RECLAMATION SYSTEMS OPERATOR Active CEFDINIR 300 MG ORAL CAPSULE by mouth twice a day CEFDINIR 42880171408 No Longer Active Jillina Frazell WATER RECLAMATION SYSTEMS OPERATOR Active BENZONATATE 200 MG ORAL CAPSULE 1 three times a day as needed for cough 03/27 BENZONATATE 17299008170 No Longer Active Luna Prabhakar Active ZITHROMAX Z-NEVAEH 250 MG ORAL TABLET 2 today and then 1 daily for 4 days 03/27 AZITHROMYCIN 41057597188 No Longer Active Luna Prabhakar Active PREDNISONE 20 MG ORAL TABLET 2 daily for 3 days then 1 daily for 3 days 03/27 PREDNISONE 88769287145 No Longer Active Luna Prabhakar Active ATORVASTATIN CALCIUM 40 MG ORAL TABLET 1 po qHS ATORVASTATIN CALCIUM 23015285445 Active Marcelle VERA Active CLOPIDOGREL BISULFATE 75 MG ORAL TABLET 1 po qd CLOPIDOGREL BISULFATE 09440411491 Active Andre Barreto MD Active FUROSEMIDE 20 MG ORAL TABLET 1 po qd PRN Edema FUROSEMIDE 67881727333 Active Andre Barreto MD Active PROAIR HFA 108 (90 Base) MCG/ACT INHALATION AEROSOL SOLUTION 2 puffs q4hr PRN Shortness of air/Wheezing ALBUTEROL SULFATE 31890223007 Active Andre Barreto MD Active ATORVASTATIN CALCIUM 80 MG ORAL TABLET 1 po qHS ATORVASTATIN CALCIUM 14391640466 No Longer Active Andre Barreto MD Active AMBIEN 5 MG ORAL TABLET 1 po qHS PRN Insomnia ZOLPIDEM TARTRATE 78850349846 Active Andre Barreto MD Active DETROL 2 MG ORAL TABLET 1 po qd TOLTERODINE TARTRATE 03881070014 Active Andre Barreto MD Active NITROGLYCERIN 0.4 MG SUBLINGUAL TABLET SUBLINGUAL 1 SL q5min PRN Chest pain up to 3 doses NITROGLYCERIN 01100715341 Active Andre Barreto MD Active TOPROL XL 50 MG ORAL TABLET EXTENDED RELEASE 24 HOUR 1 po qd METOPROLOL SUCCINATE 75799558388 Active Andre Barreto MD Active SYMBICORT 160-4.5 MCG/ACT INHALATION AEROSOL 2 puff BID BUDESONIDE-FORMOTEROL FUMARATE 96978298262 Active Cayla VERA Active FLUOXETINE HCL 40 MG ORAL CAPSULE 1 po qd FLUOXETINE HCL 99493119849 Active Andre Barreto MD Active BENICAR HCT 40-25 MG ORAL TABLET Take one by mouth daily OLMESARTAN MEDOXOMIL-HCTZ 90377153102 No Longer Active Andre Barreto MD Active LOSARTAN POTASSIUM-HCTZ 100-25 MG ORAL TABLET 1 po qd LOSARTAN POTASSIUM-HCTZ 34166165355 Active Andre Barreto MD Active BETAMETHASONE DIPROPIONATE 0.05 % EXTERNAL OINTMENT Apply to affected areas BID for up to 2 weeks BETAMETHASONE DIPROPIONATE 78187650543 No Longer Active Andre Barreto MD Active ZOFRAN 4 MG ORAL TABLET 1 po q6hr PRN Nausea ONDANSETRON HCL 97570859856 No Longer Active Andre Barreto MD Active CIPRO 500 MG ORAL TABLET 1 tablet by mouth twice daily CIPROFLOXACIN HCL 29079079774 No Longer Active Andre Barreto MD Active SYMBICORT 160-4.5 MCG/ACT INHALATION AEROSOL 2 puffs inhaled bid BUDESONIDE-FORMOTEROL FUMARATE 79702605722 No Longer Active Andre Barreto MD Active DICLOFENAC SODIUM 75 MG ORAL TABLET DELAYED RELEASE 1 tablet by mouth twice daily DICLOFENAC SODIUM 94035462909 No Longer Active Andre Barreto MD Active PROZAC 40 MG ORAL CAPSULE 1 cap by mouth at bedtime FLUOXETINE HCL 18756426930 No Longer Active Andre Barreto MD Active HYDROCODONE-ACETAMINOPHEN 5-325 MG ORAL TABLET 1 po q 6hr PRN Pain HYDROCODONE-ACETAMINOPHEN 43101334411 No Longer Active Andre Barreto MD Active TRAMADOL HCL 50 MG ORAL TABLET 2 po q 6 hrs prn TRAMADOL HCL 08089624914 Active Andre Barreto MD Active HYDROCODONE-ACETAMINOPHEN 5-325 MG ORAL TABLET 1 po q 6hr PRN Pain HYDROCODONE-ACETAMINOPHEN 5-325 MG ORAL TABLET 392013 HYDROCODONE- ACETAMINOPHEN Inactive PROZAC 40 MG ORAL CAPSULE 1 cap by mouth at bedtime PROZAC 40 MG ORAL CAPSULE 113847 FLUOXETINE HCL Inactive DICLOFENAC SODIUM 75 MG ORAL TABLET DELAYED RELEASE 1 tablet by mouth twice daily DICLOFENAC SODIUM 75 MG ORAL TABLET DELAYED RELEASE 783803 DICLOFENAC SODIUM Inactive SYMBICORT 160-4.5 MCG/ACT INHALATION AEROSOL 2 puffs inhaled bid SYMBICORT 160-4.5 MCG/ACT INHALATION AEROSOL BUDESONIDE-FORMOTEROL FUMARATE Inactive ZOFRAN 4 MG ORAL TABLET 1 po q6hr PRN Nausea ZOFRAN 4 MG ORAL TABLET 218709 ONDANSETRON HCL Inactive BETAMETHASONE DIPROPIONATE 0.05 % EXTERNAL OINTMENT Apply to affected areas BID for up to 2 weeks BETAMETHASONE DIPROPIONATE 0.05 % EXTERNAL OINTMENT 671596 BETAMETHASONE DIPROPIONATE Inactive BENICAR HCT 40-25 MG ORAL TABLET Take one by mouth daily BENICAR HCT 40-25 MG ORAL TABLET 396153 OLMESARTAN MEDOXOMIL-HCTZ Inactive ATORVASTATIN CALCIUM 80 MG ORAL TABLET 1 po qHS ATORVASTATIN CALCIUM 80 MG ORAL TABLET 757517 ATORVASTATIN CALCIUM Inactive PREDNISONE 20 MG ORAL TABLET 2 daily for 3 days then 1 daily for 3 days 03/27 PREDNISONE 20 MG ORAL TABLET 902328 PREDNISONE Inactive ZITHROMAX Z-NEVAEH 250 MG ORAL TABLET 2 today and then 1 daily for 4 days 03/27 ZITHROMAX Z-NEVAEH 250 MG ORAL TABLET 743530 AZITHROMYCIN Inactive BENZONATATE 200 MG ORAL CAPSULE 1 three times a day as needed for cough 03/27 BENZONATATE 200 MG ORAL CAPSULE 604297 BENZONATATE Inactive BACTRIM DS 800-160 MG ORAL TABLET 1 tab by mouth twice daily 2017 BACTRIM DS 800-160 MG ORAL TABLET 810921 TRIMETHOPRIM- SULFAMETHOXAZOLE Inactive BACTROBAN 2 % EXTERNAL OINTMENT Apply to affected area BID 05/18 BACTROBAN 2 % EXTERNAL OINTMENT 174022 MUPIROCIN Inactive CIPRO 500 MG ORAL TABLET 1 tablet by mouth twice daily CIPRO 500 MG ORAL TABLET 514991 CIPROFLOXACIN HCL Inactive CEFDINIR 300 MG ORAL CAPSULE by mouth twice a day CEFDINIR 300 MG ORAL CAPSULE 958088 CEFDINIR Inactive CLINDAMYCIN HCL 300 MG ORAL CAPSULE 1 po QID x 7 days CLINDAMYCIN HCL 300 MG ORAL CAPSULE 766630 CLINDAMYCIN HCL Inactive Advance Directives Directive Description [...] Measured blood pressure, diastolic 52 mm[Hg] BP pta blood pressure, systolic 136 mm[Hg] BP sys [...] Panel - Chemistry sodium, serum 139 mmol/L 118-633 4283/05/04 carbon dioxide, venous blood 28.7 mmol/L [...] % 11.6-14.8 platelet count 245 10^3/MM^3 10*3/mm3 613-913 9365/11/07 leukocyte count, blood 8.0 10^3/MM^3 10*3/mm3 4.6-10.2 erythrocyte (RBC) count 4.40 10^6/MM^3 10*6/mm3 3.80-5.80 hemoglobin, blood 13.4 g/dL 12.0-16.0 hematocrit, blood 41.5 % 37.0-47.0 mean corpuscular volume, RBC 94 fL 80-97 Lab Report: HGBA1C, Lipid Panel - Chemistry hemoglobin A1C, blood, as % of total hemoglobin 6.2 % 4.3-6.0 cholesterol, serum 302 mg/dL 692-884 1705/05/04 triglyceride, serum, fasting 145 mg/dL 30-200 HDL cholesterol, serum 61 mg/dL 32-60 LDL cholesterol, serum 212 mg/dL 0-130 Lab Report: HGBA1C, Lipid Panel, Comp. Metabolic Panel - Chemistry hemoglobin A1C, blood, as % of total hemoglobin 6.2 % 4.3-6.0 cholesterol, serum 229 mg/dL 585-726 8224/07/24 triglyceride, serum, fasting 106 mg/dL 30-200 HDL cholesterol, serum 60 mg/dL 32-60 LDL cholesterol, serum 148 mg/dL 0-130 sodium, serum 139 mmol/L 733-583 1873/07/24 carbon dioxide, venous blood 34.8 mmol/L 21.0-32.0 [...] Panel - Chemistry cholesterol, serum 275 mg/dL 932-110 0542/11/07 triglyceride, serum, fasting 166 mg/dL 30-200 HDL cholesterol, serum 62 mg/dL 32-60 LDL cholesterol, serum 180 mg/dL 0-130 sodium, serum 141 mmol/L 386-942 1302/11/07 carbon dioxide, venous blood 26.3 mmol/L 21.0-32.0 [...] 0-19 Encounters Code Encounter Date Provider Facility CPT-83530 Level 3 Est. Patient 14:29:01 CDT Esa Jackson MD [facility] CPT-13771 Level 3 Est. Patient 14:06:16 CDT Andre Barreto MD [facility] CPT-11729 Level 3 Est. Patient 09:16:36 CDT David King [facility] CPT-60060 Level 3 Est. Patient 09:24:01 PERCH MENDER David King [facility] CPT-53034 Level 3 Est. Patient 13:01:07 [employer] Solitario Howe MD [facility] CPT-84659 Level 4 Est. Patient 10:26:48 PER[employer]ENDER Andre Barreto MD [facility] CPT-31599 Level 4 Est. Patient 09:45:06 CDT Andre Barreto MD [facility] CPT-96181 Level 4 Est. Patient 11:53:39 PERCH MENDER Andre Barreto MD [facility] CPT-51933 Level 4 Est. Patient 14:21:31 CDT Andre Barreto MD [facility] CPT-25180 Level 4 Est. Patient 15:24:17 CDT Andre Barreto MD [facility] CPT-45777 Level 3 Est. Patient 10:36:40 CDT Andre Barreto MD [facility] CPT-18732 Level 4 Est. Patient 11:27:43 CDT Andre Barreto MD [facility] CPT-17381 Level 3 Est. Patient 10:57:31 PERCH MENDER Andre Barreto MD [facility] CPT-37372 Level 3 Est. Patient 13:53:13 PERCH MENDER Andre Barreto MD [facility] CPT-07046 Level 3 Est. Patient 09:16:12 CDT Andre Barreto MD [facility] CPT-83708 Level 3 Est. Patient 14:50:35 CDT Andre Barreto MD [facility] Procedures Code Procedure Name Date Entry Date Standard Description CPT-81625 Postop F/U Visit 14:31:27 CDT CPT-91139 Postop F/U Visit 14:30:20 CDT CPT-16981 Sono pelvis coley bladder only - XRAY USE ONLY 15:07:39 CDT CPT-52347 First Vx - Ix admin for Medicare patients 13:56:44 PER[employer] MENDER CPT-17248 Zostavax Subcutaneous Solution Reconstituted 24576 UNT/0.65ML 12/22 13:56:44 [employer] MENDER CPT-G0009 Administration of Pneumococcal Vaccine 10:12:50 CDT CPT-35995 Pneumovax 23 Injection Injectable 25 MCG/0.5ML 10:12:50 CDT CPT-G0439 Subsequent Annual Wellness Exam 09:49:25 CDT CPT-47056 First Vx - Ix admin for Medicare patients 17:55:11 [employer] MEND[employer] CPT-14990 Fluzone High-Dose Intramuscular Suspension 17:55:11 [employer] CPT-17382 Venipuncture Draw Fee 14:11:36 CDT CPT-16573 Lipid - LAB USE ONLY 14:11:36 CDT CPT-28481 CMP - LAB USE ONLY 14:11:36 CDT CPT-G0438 Initial Annual Wellness Exam 13:29:06 CDT CPT-G0009 Administration of Pneumococcal Vaccine 13:26:57 CDT CPT-94505 Prevnar 13 Intramuscular Suspension 13:26:56 CDT 08/19 CPT-40495 Bone Density - XRAY USE ONLY 09:30:16 CDT CPT-Cryo Cryotherapy 08:59:26 PERCH MENDER CPT-Cryo Cryotherapy 08:46:02 CDT CPT-88793 Chest 2V Frontal and Lat 14:02:13 PERCH MENDER
--- OUTSIDE RECORDS SUMMARY | 2018-03-16 19:51 | XMS REPORT | Clinical Summary ---
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 Other dependence on machines, supplemental oxygen Osteopenia [...] ORAL TABS 1 po qd CLOPIDOGREL BISULFATE 72248423281 Active Andre Barreto MD Active FUROSEMIDE 20 MG ORAL TABS 1 po qd PRN Edema FUROSEMIDE 81762942499 Active Andre Barreto MD Active PROAIR HFA 108 (90 BASE) MCG/ACT INH AERS 2 puffs q4hr PRN Shortness of air/ Wheezing ALBUTEROL SULFATE 92397789591 Active Andre Barreto MD Active ATORVASTATIN CALCIUM 80 MG TABS 1 po qHS ATORVASTATIN CALCIUM 21833274898 No Longer Active Andre Barreto MD Active AMBIEN 5 MG TABS 1 po qHS PRN Insomnia ZOLPIDEM TARTRATE 63041955419 Active Andre Barreto MD Active DETROL 2 MG ORAL TABS 1 po qd TOLTERODINE TARTRATE 21394140723 Active Andre Barreto MD Active NITROGLYCERIN 0.4 MG SL SUBL 1 SL q5min PRN Chest pain up to 3 doses NITROGLYCERIN 57570339504 Active Andre Barreto MD Active TOPROL XL 50 MG ORAL [id number] 1 po qd METOPROLOL SUCCINATE 90968087557 Active Andre Barreto MD Active SYMBICORT 160-4.5 MCG/ACT AERO 2 puff BID BUDESONIDE- FORMOTEROL FUMARATE 82725036288 Active Cayla Flanagan [facility] Active FLUOXETINE HCL 40 MG ORAL CAPS 1 po qd FLUOXETINE HCL 78192939686 Active Andre Barreto MD Active BENICAR HCT 40-25 MG TABS Take one by mouth daily OLMESARTAN MEDOXOMIL-HCTZ 20403765239 No Longer Active Andre Barreto MD Active LOSARTAN POTASSIUM-HCTZ 100-25 MG TABS 1 po qd LOSARTAN POTASSIUM-HCTZ 93332849281 Active Andre Barreto MD Active BETAMETHASONE DIPROPIONATE 0.05 % OINT Apply to affected areas BID for up to 2 weeks BETAMETHASONE DIPROPIONATE 49248883115 No Longer Active Andre Barreto MD Active ZOFRAN 4 MG TABS 1 po q6hr PRN Nausea ONDANSETRON HCL 80699369322 No Longer Active Andre Barreto MD Active CIPRO 500 MG TAB 1 tablet by mouth twice daily CIPROFLOXACIN HCL 82390282786 No Longer Active Andre Barreto MD Active SYMBICORT 160-4.5 MCG/ACT AERO 2 puffs inhaled bid BUDESONIDE- FORMOTEROL FUMARATE 13705652783 No Longer Active Andre Barreto MD Active DICLOFENAC SODIUM 75 MG TBEC 1 tablet by mouth twice daily DICLOFENAC SODIUM 28609117243 No Longer Active Andre Barreto MD Active PROZAC 40 MG CAPS 1 cap by mouth at bedtime FLUOXETINE HCL 83230266497 No Longer Active Andre Barreto MD Active HYDROCODONE-ACETAMINOPHEN 5-325 MG TABS 1 po q 6hr PRN Pain HYDROCODONE-ACETAMINOPHEN 73738582322 No Longer Active Andre Barreto MD Active TRAMADOL HCL 50 MG TABS 2 po q 6 hrs prn TRAMADOL HCL 48833332506 Active Andre Barreto MD Active HYDROCODONE-ACETAMINOPHEN 5-325 MG TABS 1 po q 6hr PRN Pain HYDROCODONE-ACETAMINOPHEN 5-325 MG TABS 461060 HYDROCODONE-ACETAMINOPHEN Inactive PROZAC 40 MG CAPS 1 cap by mouth at bedtime PROZAC 40 MG CAPS 694979 FLUOXETINE HCL Inactive DICLOFENAC SODIUM 75 MG TBEC 1 tablet by mouth twice daily DICLOFENAC SODIUM 75 MG TBEC 763627 DICLOFENAC SODIUM Inactive SYMBICORT 160-4.5 MCG/ACT AERO 2 puffs inhaled bid SYMBICORT 160-4.5 MCG/ACT AERO BUDESONIDE-FORMOTEROL FUMARATE Inactive ZOFRAN 4 MG TABS 1 po q6hr PRN Nausea ZOFRAN 4 MG TABS 630073 ONDANSETRON HCL Inactive BETAMETHASONE DIPROPIONATE 0.05 % OINT Apply to affected areas BID for up to 2 weeks BETAMETHASONE DIPROPIONATE 0.05 % OINT 760676 BETAMETHASONE DIPROPIONATE Inactive BENICAR HCT 40-25 MG TABS Take one by mouth daily BENICAR HCT 40-25 MG TABS 463500 OLMESARTAN MEDOXOMIL-HCTZ Inactive ATORVASTATIN CALCIUM 80 MG TABS 1 po qHS ATORVASTATIN CALCIUM 80 MG TABS 943932 ATORVASTATIN CALCIUM Inactive CIPRO 500 MG TAB 1 tablet by mouth twice daily CIPRO 500 MG TAB 764849 CIPROFLOXACIN HCL Inactive Advance Directives Directive Description [...] 6.2 % 4.3-6.0 cholesterol, serum 229 mg/dL 241-937 2462/07/24 triglyceride, serum, fasting 106 mg/dL 30-200 HDL cholesterol, serum 60 mg/dL 32-60 LDL cholesterol, serum 148 mg/dL 0-130 sodium, serum 139 mmol/L 785-023 1126/07/24 carbon dioxide, venous blood 34.8 mmol/L 21.0-32.0 [...] 0.00-1.00 Encounters Code Encounter Date Provider Facility CPT-16331 Level 4 Est. 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 Patient 09:45:06 CDT Andre Barreot MD [facility] CPT-39059 Level 4 Est. Patient 11:53:39 FOOD AND NUTRITION SERVICES SUPERVISOR Andre Barreto MD [facility] CPT-19099 Level 4 Est. Patient 14:21:31 CDT Andre Barreto MD [facility] CPT-77418 Level 4 Est. Patient 15:24:17 CDT Andre Barreto [facility] CPT-38334 Level 3 Est. Patient 10:36:40 CDT Andre Barreto MD [facility] CPT-14866 Level 4 Est. Patient 11:27:43 CDT Andre Barreto MD [facility] CPT-67233 Level 3 Est. Patient 10:57:31 FOOD AND NUTRITION SERVICES SUPERVISOR Andre Barreto MD [facility] CPT-94498 Level 3 Est. Patient 13:53:13 FOOD AND NUTRITION SERVICES SUPERVISOR Andre Barreto MD [facility] CPT-84870 Level 3 Est. Patient 09:16:12 CDT Andre Barreto MD [facility] CPT-51751 Level 3 Est. Patient 14:50:35 CDT Andre Barreto MD [facility] Procedures Code Procedure Name Date Entry Date Standard Description CPT-G0009 Administration of Pneumococcal Vaccine 10:12:50 CDT CPT-30702 Pneumovax 23 Injection Injectable 25 MCG/0.5ML 10:12:50 CDT CPT-G0439 Subsequent Annual Wellness Exam 09:49:25 CDT CPT-65458 First Vx - Ix admin for Medicare patients 17:55:11 FOOD AND NUTRITION SERVICES SUPERVISOR CPT-55423 Fluzone High-Dose Intramuscular Suspension 17:55:11 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
--- OUTSIDE RECORDS SUMMARY | 2018-03-16 19:51 | XMS REPORT | Clinical Summary ---
Author Author Admin, EDUARDO Organization [place] Address Unknown Phone Unavailable Allergies, Adverse Reactions, [...] Coronary atherosclerosis of unspecified type of vessel, [place] or graft Obstructive sleep apnea 327.23 Active [...] 1 daily for 3 days 03/27 PREDNISONE 62574992332 Active Solitario Howe MD Active BENZONATATE 200 MG ORAL CAPSULE 1 three times a day as needed for cough 03/27 BENZONATATE 30786138041 Active Solitario Howe MD Active ZITHROMAX Z-NEVAEH 250 MG ORAL TABLET 2 today and then 1 daily for 4 days 03/27 AZITHROMYCIN 65442433681 Active Solitario Howe MD Active ATORVASTATIN CALCIUM 40 MG ORAL TABLET 1 po qHS ATORVASTATIN CALCIUM 43689598807 Active Marcelle Key A Active CLOPIDOGREL BISULFATE 75 MG ORAL TABLET 1 po qd CLOPIDOGREL BISULFATE 33078355455 Active Andre Barreto MD Active FUROSEMIDE 20 MG ORAL TABLET 1 po qd PRN Edema FUROSEMIDE 72314040679 Active Andre Barreto MD Active PROAIR HFA 108 (90 Base) MCG/ACT INHALATION AEROSOL SOLUTION 2 puffs q4hr PRN Shortness of air/Wheezing ALBUTEROL SULFATE 62234088295 Active Andre Barreto MD Active ATORVASTATIN CALCIUM 80 MG ORAL TABLET 1 po qHS ATORVASTATIN CALCIUM 45419667111 No Longer Active Andre Barreto MD Active AMBIEN 5 MG ORAL TABLET 1 po qHS PRN Insomnia ZOLPIDEM TARTRATE 33622664449 Active Andre Barreto MD Active DETROL 2 MG ORAL TABLET 1 po qd TOLTERODINE TARTRATE 39932939937 Active Andre Barreto MD Active NITROGLYCERIN 0.4 MG SUBLINGUAL TABLET SUBLINGUAL 1 SL q5min PRN Chest pain up to 3 doses NITROGLYCERIN 59666465891 Active Andre Barreto MD Active TOPROL XL 50 MG ORAL TABLET EXTENDED RELEASE 24 HOUR 1 po qd METOPROLOL SUCCINATE 19615761924 Active Andre Barreto MD Active SYMBICORT 160-4.5 MCG/ACT INHALATION AEROSOL 2 puff BID BUDESONIDE-FORMOTEROL FUMARATE 63325216635 Active Cayla Flanagan [facility] Active FLUOXETINE HCL 40 MG ORAL CAPSULE 1 po qd FLUOXETINE HCL 73860491428 Active Andre Barreto MD Active BENICAR HCT 40-25 MG ORAL TABLET Take one by mouth daily OLMESARTAN MEDOXOMIL-HCTZ 45352813462 No Longer Active Andre Barreto MD Active LOSARTAN POTASSIUM-HCTZ 100-25 MG ORAL TABLET 1 po qd LOSARTAN POTASSIUM-HCTZ 68631106817 Active Andre Barreto MD Active BETAMETHASONE DIPROPIONATE 0.05 % EXTERNAL OINTMENT Apply to affected areas BID for up to 2 weeks BETAMETHASONE DIPROPIONATE 70370512507 No Longer Active Andre Barreto MD Active ZOFRAN 4 MG ORAL TABLET 1 po q6hr PRN Nausea ONDANSETRON HCL 01399842935 No Longer Active Andre Barreto MD Active CIPRO 500 MG ORAL TABLET 1 tablet by mouth twice daily CIPROFLOXACIN HCL 13268877540 No Longer Active Andre Barreto MD Active SYMBICORT 160-4.5 MCG/ACT INHALATION AEROSOL 2 puffs inhaled bid BUDESONIDE-FORMOTEROL FUMARATE 05449260677 No Longer Active Andre Barreto MD Active DICLOFENAC SODIUM 75 MG ORAL TABLET DELAYED RELEASE 1 tablet by mouth twice daily DICLOFENAC SODIUM 79719592529 No Longer Active Andre Barreto MD Active PROZAC 40 MG ORAL CAPSULE 1 cap by mouth at bedtime FLUOXETINE HCL 33059777614 No Longer Active Andre Barreto MD Active HYDROCODONE-ACETAMINOPHEN 5-325 MG ORAL TABLET 1 po q 6hr PRN Pain HYDROCODONE-ACETAMINOPHEN 30662895435 No Longer Active Andre Barreto MD Active TRAMADOL HCL 50 MG ORAL TABLET 2 po q 6 hrs prn TRAMADOL HCL 68063221306 Active Andre Barreto MD Active HYDROCODONE-ACETAMINOPHEN 5-325 MG ORAL TABLET 1 po q 6hr PRN Pain HYDROCODONE-ACETAMINOPHEN 5-325 MG ORAL TABLET 760261 HYDROCODONE- ACETAMINOPHEN Inactive PROZAC 40 MG ORAL CAPSULE 1 cap by mouth at bedtime PROZAC 40 MG ORAL CAPSULE 987471 FLUOXETINE HCL Inactive DICLOFENAC SODIUM 75 MG ORAL TABLET DELAYED RELEASE 1 tablet by mouth twice daily DICLOFENAC SODIUM 75 MG ORAL TABLET DELAYED RELEASE 489334 DICLOFENAC SODIUM Inactive SYMBICORT 160-4.5 MCG/ACT INHALATION AEROSOL 2 puffs inhaled bid SYMBICORT 160-4.5 MCG/ACT INHALATION AEROSOL BUDESONIDE-FORMOTEROL FUMARATE Inactive ZOFRAN 4 MG ORAL TABLET 1 po q6hr PRN Nausea ZOFRAN 4 MG ORAL TABLET 443585 ONDANSETRON HCL Inactive BETAMETHASONE DIPROPIONATE 0.05 % EXTERNAL OINTMENT Apply to affected areas BID for up to 2 weeks BETAMETHASONE DIPROPIONATE 0.05 % EXTERNAL OINTMENT 914302 BETAMETHASONE DIPROPIONATE Inactive BENICAR HCT 40-25 MG ORAL TABLET Take one by mouth daily BENICAR HCT 40-25 MG ORAL TABLET 593329 OLMESARTAN MEDOXOMIL-HCTZ Inactive ATORVASTATIN CALCIUM 80 MG ORAL TABLET 1 po qHS ATORVASTATIN CALCIUM 80 MG ORAL TABLET 929567 ATORVASTATIN CALCIUM Inactive CIPRO 500 MG ORAL TABLET 1 tablet by mouth twice daily CIPRO 500 MG ORAL TABLET 130292 CIPROFLOXACIN HCL Inactive Advance Directives Directive Description [...] % 11.6-14.8 platelet count 245 10^3/MM^3 10*3/mm3 280-780 9769/11/07 leukocyte count, blood 8.0 10^3/MM^3 10*3/mm3 4.6-10.2 erythrocyte (RBC) count 4.40 10^6/MM^3 10*6/mm3 3.80-5.80 hemoglobin, blood 13.4 g/dL 12.0-16.0 hematocrit, blood 41.5 % 37.0-47.0 mean corpuscular volume, RBC 94 fL 80-97 Lab Report: HGBA1C, Lipid Panel, Comp. Metabolic Panel - Chemistry hemoglobin A1C, blood, as % of total hemoglobin 6.2 % 4.3-6.0 cholesterol, serum 229 mg/dL 314-327 7827/07/24 triglyceride, serum, fasting 106 mg/dL 30-200 HDL cholesterol, serum 60 mg/dL 32-60 LDL cholesterol, serum 148 mg/dL 0-130 sodium, serum 139 mmol/L 488-776 0208/07/24 carbon dioxide, venous blood 34.8 mmol/L 21.0-32.0 [...] Lipid Panel, Comp. Metabolic Panel - Chemistry carbon dioxide, venous blood 26.3 mmol/L 21.0-32.0 potassium, serum 4.0 mmol/L 3.5-5.2 chloride, serum 102 mmol/L 98-107 blood glucose 111 mg/dL 65-110 urea nitrogen, blood 24 mg/dL 7-18 creatinine, serum 1.15 mg/dL 0.60-1.30 alanine aminotransferase (SGPT), serum 52 U/L -78 aspartate aminotransferase (SGOT), serum 28 U/L 15-37 calcium, serum 9.2 mg/dL 8.5-10.1 bilirubin, serum, total 0.50 mg/dL 0.00-1.00 cholesterol, serum 275 mg/dL 297-370 0550/11/07 triglyceride, serum, fasting 166 mg/dL 30-200 HDL cholesterol, serum 62 mg/dL 32-60 LDL cholesterol, serum 180 mg/dL 0-130 sodium, serum 141 mmol/L 136-145 Lab Report: MICROALB/CREAT W/RATIO - Chemistry albumin/creatinine ratio, urine <30 mg/g Normal mg/g mg/g{creat} 0-29 Lab Report: MICROALB/CREAT W/RATIO - Lab microalbumin, urine 10 mg/L 0-19 Encounters Code Encounter Date Provider Facility CPT-34558 Level 3 Est. Patient 13:01:07 [employer] OUT WORKER Solitario Howe MD [facility] CPT-87783 Level 4 Est. Patient 10:26:48 [employer] OUT WORKER Andre Barreto MD [facility] CPT-53234 Level 4 Est. Patient 09:45:06 CDT Andre Barreto MD [facility] CPT-66539 Level 4 Est. Patient 11:53:39 L[employer] OUT WORKER Andre Barreto MD [facility] CPT-15578 Level 4 Est. Patient 14:21:31 CDT Andre Barreto MD [facility] CPT-18743 Level 4 Est. Patient 15:24:17 CDT Andre Barreto MD [facility] CPT-29366 Level 3 Est. Patient 10:36:40 CDT Andre Barreto MD [facility] CPT-67249 Level 4 Est. Patient 11:27:43 CDT Andre Barreto MD [facility] CPT-16982 Level 3 Est. Patient 10:57:31 L[employer] OUT WORKER Andre Barreto MD [facility] CPT-95949 Level 3 Est. Patient 13:53:13 L[employer] OUT WORKER Andre Barreto MD [facility] CPT-99274 Level 3 Est. Patient 09:16:12 CDT Andre Barreto MD [facility] CPT-47653 Level 3 Est. Patient 14:50:35 CDT Andre Barreto MD [facility] Procedures Code Procedure Name Date Entry Date Standard Description CPT-81653 First Vx - Ix admin for Medicare patients 13:56:44 L[employer] OUT WORKER CPT-17120 Zostavax Subcutaneous Solution Reconstituted 66287 UNT/0.65ML 12/22 13:56:44 [employer] OUT WORKER CPT-G0009 Administration of Pneumococcal Vaccine 10:12:50 CDT CPT-33523 Pneumovax 23 Injection Injectable 25 MCG/0.5ML 10:12:50 CDT CPT-G0439 Subsequent Annual Wellness Exam 09:49:25 CDT CPT-21831 First Vx - Ix admin for Medicare patients 17:55:11 L[employer] OUT WORKER CPT-16548 Fluzone High-Dose Intramuscular Suspension 17:55:11 [employer] OUT WORKER CPT-29766 Venipuncture Draw Fee 14:11:36 CDT CPT-34988 Lipid - LAB USE ONLY 14:11:36 CDT CPT-54305 CMP - LAB USE ONLY 14:11:36 CDT CPT-G0438 Initial Annual Wellness Exam 13:29:06 CDT CPT-G0009 Administration of Pneumococcal Vaccine 13:26:57 CDT CPT-47936 Prevnar 13 Intramuscular Suspension 13:26:56 CDT 08/19 CPT-58520 Bone Density - XRAY USE ONLY 09:30:16 CDT CPT-Cryo Cryotherapy 08:59:26 L[employer] OUT WORKER CPT-Cryo Cryotherapy 08:46:02 CDT CPT-15315 Chest 2V Frontal and Lat 14:02:13 LAY OUT WORKER
--- OUTSIDE RECORDS SUMMARY | 2018-03-16 19:52 | XMS REPORT | Clinical Summary ---
Author Author Admin, EDUARDO Organization [employer] Address Unknown Phone Unavailable Allergies, Adverse Reactions, [...] Coronary atherosclerosis of unspecified type of vessel, [place] or graft Obstructive sleep apnea 327.23 Active [...] DYSPNEA ICD-786.05 Inactive Andre Barreto MD 2012 DYSPNEA ICD-786.09 Inactive Andre Barreto MD 2012 Actinic keratosis [...] Unsteady gait ICD-781.2 Inactive Andre Barreto MD Fever ICD-780.60 Inactive Andre Barreto MD 05/23 Medication List Medication Instructions Start Date Stop Date Generic Name NDC Status Provider Patient Instruction TOPROL XL 50 MG ORAL ME27P-POT 1 po qd METOPROLOL SUCCINATE 60465812576 Active Andre Barreto MD Active PLAVIX 75 MG TABS 1 po qd CLOPIDOGREL BISULFATE 04036130315 Active Andre Barreto MD Active LASIX 20 MG TAB 1 po qd PRN Edema FUROSEMIDE 08357204476 Active Andre Barreto MD Active ATORVASTATIN CALCIUM 80 MG TABS 1 po qHS ATORVASTATIN CALCIUM 23113834289 Active Andre Barreto MD Active SYMBICORT 160-4.5 MCG/ACT AERO 2 puff BID BUDESONIDE- FORMOTEROL FUMARATE 20557956507 Active Andre Barreto MD Active PROAIR HFA 108 (90 BASE) MCG/ACT AERS 2 puffs four times a day as needed 2015 ALBUTEROL SULFATE 39081539309 Active Andre Barreto MD Active FLUOXETINE HCL 40 MG ORAL CAPS 1 po qd FLUOXETINE HCL 54105329644 Active Andre Barreto MD Active DETROL 2 MG ORAL TABS one tab daily TOLTERODINE TARTRATE 99281401042 Active Andre Barreto MD Active BENICAR HCT 40-25 MG TABS Take one by mouth daily OLMESARTAN MEDOXOMIL-HCTZ 24584907868 No Longer Active Andre Barreto MD Active [place]AN POTASSIUM-HCTZ 100-25 MG TABS 1 po qd [place]ARTAN POTASSIUM-HCTZ 02791189806 Active Andre Barreto MD Active BETAMETHASONE DIPROPIONATE 0.05 % OINT Apply to affected areas BID for up to 2 weeks BETAMETHASONE DIPROPIONATE 23747729967 No Longer Active Andre Barreto MD Active ZOFRAN 4 MG TABS 1 po q6hr PRN Nausea ONDANSETRON HCL 46429092575 No Longer Active Andre Barreto MD Active CIPRO 500 MG TAB 1 tablet by mouth twice daily CIPROFLOXACIN HCL 39941678647 No Longer Active Andre Barreto MD Active SYMBICORT 160-4.5 MCG/ACT AERO 2 puffs inhaled bid BUDESONIDE- FORMOTEROL FUMARATE 97365710871 No Longer Active Andre Barreto MD Active NITROSTAT 0.4 MG SL TAB disolve 1 under tongue repeat if needed NITROGLYCERIN 86819568753 Active Andre Barreto MD Active DICLOFENAC SODIUM 75 MG TBEC 1 tablet by mouth twice daily DICLOFENAC SODIUM 56833307147 No Longer Active Andre Barreto MD Active PROZAC 40 MG CAPS 1 cap by mouth at bedtime FLUOXETINE HCL 12678476137 No Longer Active Andre Barreto MD Active HYDROCODONE-ACETAMINOPHEN 5-325 MG TABS 1 po q 6hr PRN Pain HYDROCODONE-ACETAMINOPHEN 46038783347 No Longer Active Andre Barreto MD Active TRAMADOL HCL 50 MG TABS 2 po q 6 hrs prn TRAMADOL HCL 44285754365 Active Andre Barreto MD Active AMBIEN 5 MG TABS 1 po a hs prn ZOLPIDEM TARTRATE 21736940243 Active Andre Barreto MD Active HYDROCODONE-ACETAMINOPHEN 5-325 MG TABS 1 po q 6hr PRN Pain HYDROCODONE-ACETAMINOPHEN 5-325 MG TABS 847496 HYDROCODONE-ACETAMINOPHEN Inactive PROZAC 40 MG CAPS 1 cap by mouth at bedtime PROZAC 40 MG CAPS 414710 FLUOXETINE HCL Inactive DICLOFENAC SODIUM 75 MG TBEC 1 tablet by mouth twice daily DICLOFENAC SODIUM 75 MG TBEC 643016 DICLOFENAC SODIUM Inactive SYMBICORT 160-4.5 MCG/ACT AERO 2 puffs inhaled bid SYMBICORT 160-4.5 MCG/ACT AERO BUDESONIDE-FORMOTEROL FUMARATE Inactive ZOFRAN 4 MG TABS 1 po q6hr PRN Nausea ZOFRAN 4 MG TABS 174943 ONDANSETRON HCL Inactive BETAMETHASONE DIPROPIONATE 0.05 % OINT Apply to affected areas BID for up to 2 weeks BETAMETHASONE DIPROPIONATE 0.05 % OINT 406010 BETAMETHASONE DIPROPIONATE Inactive BENICAR HCT 40-25 MG TABS Take one by mouth daily BENICAR HCT 40-25 MG TABS OLMESARTAN MEDOXOMIL-HCTZ Inactive CIPRO 500 MG TAB 1 tablet by mouth twice daily CIPRO 500 MG TAB 587997 CIPROFLOXACIN HCL Inactive Advance Directives Directive Description [...] ... - Chemistry sodium, serum 140 mmol/L 352-577 4614/06/28 carbon dioxide, venous blood 32.4 mmol/L 21.0-32.0 potassium, serum 4.0 mmol/L 3.5-5.2 chloride, serum 101 mmol/L 98-107 blood glucose 108 mg/dL 65-110 urea nitrogen, blood 20 mg/dL 7-18 creatinine, serum 0.98 mg/dL 0.55-1.30 alanine aminotransferase (SGPT), serum 44 U/L 12-78 aspartate aminotransferase (SGOT), serum 27 U/L 15-37 calcium, serum 9.4 mg/dL 8.5-10.1 bilirubin, serum, total 0.30 mg/dL 0.00-1.00 cholesterol, serum 264 mg/dL 100-671 5631/06/28 triglyceride, serum, fasting 146 mg/dL 30-200 HDL [...] Comp. Metabolic Panel, Lipid Panel - Chemistry cholesterol, serum 152 mg/dL 215-343 4970/09/27 triglyceride, serum, fasting 85 mg/dL 30-200 HDL cholesterol, serum 59 mg/dL 32-96 LDL cholesterol, serum 76 mg/dL 0-130 sodium, serum 143 mmol/L 050-292 3695/09/27 carbon dioxide, venous blood 30.1 mmol/L 21.0-32.0 potassium, serum 3.9 mmol/L 3.5-5.2 chloride, serum 107 mmol/L 98-107 blood glucose 114 mg/dL 65-110 urea nitrogen, blood 14 mg/dL 7-18 creatinine, serum 0.79 mg/dL 0.55-1.30 alanine aminotransferase (SGPT), serum 44 U/L 12-78 aspartate aminotransferase (SGOT), serum 25 U/L 15-37 calcium, serum 8.5 mg/dL 8.5-10.1 bilirubin, serum, total 0.30 mg/dL 0.00-1.00 Encounters Code Encounter Date Provider Facility CPT-69300 Level 4 Est. Patient 14:21:31 CDT [facility] CPT-82185 Level 4 Est. Patient 15:24:17 CDT [facility] CPT-28723 Level 3 Est. Patient 10:36:40 CDT Andre Barreto MD [facility] CPT-36191 Level 4 Est. Patient 11:27:43 CDT Andre Barreto MD [facility] CPT-79407 Level 3 Est. Patient 10:57:31 [employer] Andre Barreto MD [facility] CPT-60942 Level 3 Est. Patient 13:53:13 [employer] Andre Barreto MD [facility] CPT-05964 Level 3 Est. Patient 09:16:12 CDT Andre Barreto MD [facility] CPT-43701 Level 3 Est. Patient 14:50:35 CDT Andre Barreto MD [facility] Procedures Code Procedure Name Date Entry Date Standard Description CPT-28567 Venipuncture Draw Fee 14:11:36 CDT CPT-43411 Lipid - LAB USE ONLY 14:11:36 CDT CPT-86605 CMP - LAB USE ONLY 14:11:36 CDT CPT-G0438 Initial Annual Wellness Exam 13:29:06 CDT CPT-G0009 Administration of Pneumococcal Vaccine 13:26:57 CDT CPT-01465 Prevnar 13 Intramuscular Suspension 13:26:56 CDT 08/19 CPT-07380 Bone Density - XRAY USE ONLY 09:30:16 CDT CPT-Cryo Cryotherapy 08:59:26 [employer] CPT-Cryo Cryotherapy 08:46:02 CDT CPT-35829 Chest 2V Frontal and Lat 14:02:13 [employer]
--- OUTSIDE RECORDS SUMMARY | 2018-03-16 19:53 | XMS REPORT | Clinical Summary ---
Author Author Admin, QIE Organization [facility] Address Unknown Phone Unavailable Allergies, Adverse [...] Coronary atherosclerosis of unspecified type of vessel, [place] or graft OBSTRUCTIVE SLEEP APNEA 327.23 Active [...] 1 tab by mouth daily ATORVASTATIN CALCIUM 87871736230 Active Andre Barreto MD Active ZOFRAN 4 MG TABS 1 po q6hr PRN Nausea ONDANSETRON HCL 21164854680 No Longer Active Andre Barreto MD Active CIPRO 500 MG TAB 1 tablet by mouth twice daily CIPROFLOXACIN HCL 88373983047 No Longer Active Andre Barreto MD Active SYMBICORT 160-4.5 MCG/ACT AERO 2 puffs inhaled bid BUDESONIDE- FORMOTEROL FUMARATE 85365291036 No Longer Active Andre Barreto MD Active LASIX 20 MG TAB 1 tablet by mouth daily PRN FUROSEMIDE 17050729296 Active Andre Barreto MD Active TOPROL XL 25 MG [id number] Take one by mouth daily METOPROLOL SUCCINATE 73997891262 Active Andre Barreto MD Active PLAVIX 75 MG TABS 1 tablet by mouth daily CLOPIDOGREL BISULFATE 45105427878 Active Andre Barreto MD Active NITROSTAT 0.4 MG SL TAB disolve 1 under tongue repeat if needed NITROGLYCERIN 82815481590 Active Andre Barreto MD Active DICLOFENAC SODIUM 75 MG TBEC 1 tablet by mouth twice daily DICLOFENAC SODIUM 93867413510 No Longer Active Andre Barreto MD Active FLUOXETINE HCL 20 MG CAPS TAKE 3 CAPSULES BY MOUTH ONCE DAILY. FLUOXETINE HCL 14245941502 Active Andre Barreto MD Active PROZAC 40 MG CAPS 1 cap by mouth at bedtime FLUOXETINE HCL 56762004291 No Longer Active Andre Barreto MD Active HYDROCODONE-ACETAMINOPHEN 5-325 MG TABS 1 po q 6hr PRN Pain HYDROCODONE-ACETAMINOPHEN 06743201717 No Longer Active Andre Barreto MD Active TRAMADOL HCL 50 MG TABS 2 po q 6 hrs prn TRAMADOL HCL 70307480939 Active Andre Barreto MD Active AMBIEN 5 MG TABS 1 po a hs prn ZOLPIDEM TARTRATE 33109610013 Active Andre Barreto MD Active BENICAR HCT 40-25 MG TABS Take one by mouth daily OLMESARTAN MEDOXOMIL- HCTZ 48053584628 Active Andre Barreto MD Active HYDROCODONE-ACETAMINOPHEN 5-325 MG TABS 1 po q 6hr PRN Pain HYDROCODONE-ACETAMINOPHEN 5-325 MG TABS 341380 HYDROCODONE-ACETAMINOPHEN Inactive PROZAC 40 MG CAPS 1 cap by mouth at bedtime PROZAC 40 MG CAPS 382140 FLUOXETINE HCL Inactive DICLOFENAC SODIUM 75 MG TBEC 1 tablet by mouth twice daily DICLOFENAC SODIUM 75 MG TBEC 686965 DICLOFENAC SODIUM Inactive SYMBICORT 160-4.5 MCG/ACT AERO 2 puffs inhaled bid SYMBICORT 160-4.5 MCG/ACT AERO BUDESONIDE-FORMOTEROL FUMARATE Inactive ZOFRAN 4 MG TABS 1 po q6hr PRN Nausea ZOFRAN 4 MG TABS 774447 ONDANSETRON HCL Inactive CIPRO 500 MG TAB 1 tablet by mouth twice daily CIPRO 500 MG TAB 802079 CIPROFLOXACIN HCL Inactive Vital Signs Date Name [...] W/DIFF - Chemistry sodium, serum 145 mmol/L 735-921 4045/12/19 potassium, serum 4.3 mmol/L 3.5-5.2 chloride, serum 104 mmol/L 98-107 carbon dioxide, venous blood 29.9 mmol/L 21.0-32.0 blood glucose 121 mg/dL 65-110 urea nitrogen, blood 17 mg/dL 7-18 creatinine, serum 1.20 mg/dL 0.60-1.30 alanine aminotransferase (SGPT), serum 40 U/L 12-78 aspartate aminotransferase (SGOT), serum 25 U/L 15-37 calcium, serum 9.2 mg/dL 8.5-10.1 bilirubin, serum, total 0.50 mg/dL 0.00-1.00 cholesterol, serum 174 mg/dL 523-647 2044/12/19 triglyceride, serum, fasting 129 mg/dL 30-200 HDL [...] 4.3-6.0 Encounters Code Encounter Date Provider Facility CPT-03357 Level 4 Est. Patient 11:27:43 CDT Andre Barreto MD [facility] CPT-96605 Level 3 Est. Patient 10:57:31 [employer] Andre Barreto MD [facility] CPT-59397 Level 3 Est. Patient 13:53:13 [employer] Andre Barreto MD [facility] CPT-78400 Level 3 Est. Patient 09:16:12 CDT Andre Barreto MD [facility] CPT-14514 Level 3 Est. Patient 14:50:35 CDT Andre Barreto MD [facility] Procedures Code Procedure Name Date Entry Date Standard Description CPT-Cryo Cryotherapy 08:59:26 [employer]ER CPT-Cryo Cryotherapy 08:46:02 CDT CPT-90956 Chest 2V Frontal and Lat 14:02:13 [employer]OTH [employer]
--- OUTSIDE RECORDS SUMMARY | 2018-03-16 19:54 | XMS REPORT | Clinical Summary ---
Author Author Admin, EDUARDO Organization [employer] Address Unknown Phone Unavailable Allergies, Adverse Reactions, Alerts Allergy Name Reaction Description Start Date Severity Status Provider SULFA Mild No Longer Active Jillina Frazell [employer] PENICILLIN Mild No Longer Active Jillina Frazell [employer] HELPER ZINC Mild No Longer Active Jillina Frazell [employer] HELPER SULFA Critical No Longer Active Marcelle Yesi [...] and respiratory abnormality FATIGUE 780.79 Resolved Andre Barerto MD Other malaise and fatigue DYSPNEA 786.05 Resolved Andre Barreto MD Shortness of breath Coronary artery disease 414.00 Active Andre Barreto MD Coronary atherosclerosis of unspecified type of vessel, mak[place] or graft Obstructive sleep apnea 327.23 Active [...] airway pressure rx V46.2 Active Pushpa Hernandez [employer] Other dependence on machines, supplemental oxygen Osteopenia 733.90 Active Pushpa Hernandez APRN Disorder of bone and cartilage, unspecified Obstructive sleep apnea 327.23 Active Andre Barreto MD Obstructive sleep apnea (adult) (pediatric) Acute exacerbation of chronic bronchitis 491.22 Inactive Solitario Howe MD Obstructive chronic bronchitis with acute bronchitis Sinusitis 473.9 Active David King [employer] Unspecified sinusitis (chronic) Abscess, skin 682.9 Active David King APRN Cellulitis and abscess of unspecified sites DYSPNEA ICD-786.09 Inactive Andre Barreot MD 2012 FATIGUE ICD-780.79 Inactive Andre Barreto [...] Apply to affected area BID 05/18 MUPIROCIN 07155793094 No Longer Active Moira Price MA Active CLINDAMYCIN HCL 300 MG ORAL CAPSULE 1 po QID x 7 days CLINDAMYCIN HCL 20571061259 No Longer Active Jillina Frazell [employer]PER Active BACTRIM DS 800-160 MG ORAL TABLET 1 tab by mouth twice daily 2017 TRIMETHOPRIM-SULFAMETHOXAZOLE 96032603546 No Longer Active Jillina Frazell [employer] HELPER Active GUAIFENESIN DM 400-20 MG ORAL TABLET 1 pill by mouth twice daily, if needed for cough DEXTROMETHORPHAN-GUAIFENESIN 74027945284 Active Jillina Frazell [employer] HELPER Active CEFDINIR 300 MG ORAL CAPSULE by mouth twice a day CEFDINIR 44183144774 No Longer Active Jillina Frazell [employer] HELPER Active BENZONATATE 200 MG ORAL CAPSULE 1 three times a day as needed for cough 03/27 BENZONATATE 62097958010 No Longer Active Luna Prabhakar Active ZITHROMAX Z-NEVAEH 250 MG ORAL TABLET 2 today and then 1 daily for 4 days 03/27 AZITHROMYCIN 54204846642 No Longer Active Luna Prabhakar Active PREDNISONE 20 MG ORAL TABLET 2 daily for 3 days then 1 daily for 3 days 03/27 PREDNISONE 61273831415 No Longer Active Luna Prabhakar Active ATORVASTATIN CALCIUM 40 MG ORAL TABLET 1 po qHS ATORVASTATIN CALCIUM 56016203914 Active Marcelle VERA Active CLOPIDOGREL BISULFATE 75 MG ORAL TABLET 1 po qd CLOPIDOGREL BISULFATE 47069252452 Active Andre Barreto MD Active FUROSEMIDE 20 MG ORAL TABLET 1 po qd PRN Edema FUROSEMIDE 05026730048 Active Andre Barreto MD Active PROAIR HFA 108 (90 Base) MCG/ACT INHALATION AEROSOL SOLUTION 2 puffs q4hr PRN Shortness of air/Wheezing ALBUTEROL SULFATE 43949958396 Active Andre Barreto MD Active ATORVASTATIN CALCIUM 80 MG ORAL TABLET 1 po qHS ATORVASTATIN CALCIUM 26281333205 No Longer Active Andre Barreto MD Active AMBIEN 5 MG ORAL TABLET 1 po qHS PRN Insomnia ZOLPIDEM TARTRATE 71447728497 Active Andre Barreto MD Active DETROL 2 MG ORAL TABLET 1 po qd TOLTERODINE TARTRATE 65870946078 Active Andre Barreto MD Active NITROGLYCERIN 0.4 MG SUBLINGUAL TABLET SUBLINGUAL 1 SL q5min PRN Chest pain up to 3 doses NITROGLYCERIN 27745560382 Active Andre Barreto MD Active TOPROL XL 50 MG ORAL TABLET EXTENDED RELEASE 24 HOUR 1 po qd METOPROLOL SUCCINATE 74053297943 Active Andre Barreto MD Active SYMBICORT 160-4.5 MCG/ACT INHALATION AEROSOL 2 puff BID BUDESONIDE-FORMOTEROL FUMARATE 35361197566 Active Cayla VERA Active FLUOXETINE HCL 40 MG ORAL CAPSULE 1 po qd FLUOXETINE HCL 21925565727 Active Andre Barreto MD Active BENICAR HCT 40-25 MG ORAL TABLET Take one by mouth daily OLMESARTAN MEDOXOMIL-HCTZ 41105197310 No Longer Active Andre Barreto MD Active LOSARTAN POTASSIUM-HCTZ 100-25 MG ORAL TABLET 1 po qd LOSARTAN POTASSIUM-HCTZ 80023403403 Active Andre Barreto MD Active BETAMETHASONE DIPROPIONATE 0.05 % EXTERNAL OINTMENT Apply to affected areas BID for up to 2 weeks BETAMETHASONE DIPROPIONATE 82389190780 No Longer Active Andre Barreto MD Active ZOFRAN 4 MG ORAL TABLET 1 po q6hr PRN Nausea ONDANSETRON HCL 65175450350 No Longer Active Andre Barreto MD Active CIPRO 500 MG ORAL TABLET 1 tablet by mouth twice daily CIPROFLOXACIN HCL 94575819790 No Longer Active Andre Barreto MD Active SYMBICORT 160-4.5 MCG/ACT INHALATION AEROSOL 2 puffs inhaled bid BUDESONIDE-FORMOTEROL FUMARATE 33351652484 No Longer Active Andre Barerto MD Active DICLOFENAC SODIUM 75 MG ORAL TABLET DELAYED RELEASE 1 tablet by mouth twice daily DICLOFENAC SODIUM 97409623505 No Longer Active Andre Barreto MD Active PROZAC 40 MG ORAL CAPSULE 1 cap by mouth at bedtime FLUOXETINE HCL 08613491791 No Longer Active Andre Barreto MD Active HYDROCODONE-ACETAMINOPHEN 5-325 MG ORAL TABLET 1 po q 6hr PRN Pain HYDROCODONE-ACETAMINOPHEN 40983305384 No Longer Active Andre Barreto MD Active TRAMADOL HCL 50 MG ORAL TABLET 2 po q 6 hrs prn TRAMADOL HCL 70717664648 Active Andre Barreto MD Active HYDROCODONE-ACETAMINOPHEN 5-325 MG ORAL TABLET 1 po q 6hr PRN Pain HYDROCODONE-ACETAMINOPHEN 5-325 MG ORAL TABLET 151589 HYDROCODONE- ACETAMINOPHEN Inactive PROZAC 40 MG ORAL CAPSULE 1 cap by mouth at bedtime PROZAC 40 MG ORAL CAPSULE 379809 FLUOXETINE HCL Inactive DICLOFENAC SODIUM 75 MG ORAL TABLET DELAYED RELEASE 1 tablet by mouth twice daily DICLOFENAC SODIUM 75 MG ORAL TABLET DELAYED RELEASE 741228 DICLOFENAC SODIUM Inactive SYMBICORT 160-4.5 MCG/ACT INHALATION AEROSOL 2 puffs inhaled bid SYMBICORT 160-4.5 MCG/ACT INHALATION AEROSOL BUDESONIDE-FORMOTEROL FUMARATE Inactive ZOFRAN 4 MG ORAL TABLET 1 po q6hr PRN Nausea ZOFRAN 4 MG ORAL TABLET 423341 ONDANSETRON HCL Inactive BETAMETHASONE DIPROPIONATE 0.05 % EXTERNAL OINTMENT Apply to affected areas BID for up to 2 weeks BETAMETHASONE DIPROPIONATE 0.05 % EXTERNAL OINTMENT 090355 BETAMETHASONE DIPROPIONATE Inactive BENICAR HCT 40-25 MG ORAL TABLET Take one by mouth daily BENICAR HCT 40-25 MG ORAL TABLET 769163 OLMESARTAN MEDOXOMIL-HCTZ Inactive ATORVASTATIN CALCIUM 80 MG ORAL TABLET 1 po qHS ATORVASTATIN CALCIUM 80 MG ORAL TABLET 003364 ATORVASTATIN CALCIUM Inactive PREDNISONE 20 MG ORAL TABLET 2 daily for 3 days then 1 daily for 3 days 03/27 PREDNISONE 20 MG ORAL TABLET 916960 PREDNISONE Inactive ZITHROMAX Z-NEVAEH 250 MG ORAL TABLET 2 today and then 1 daily for 4 days 03/27 ZITHROMAX Z-NEVAEH 250 MG ORAL TABLET 640806 AZITHROMYCIN Inactive BENZONATATE 200 MG ORAL CAPSULE 1 three times a day as needed for cough 03/27 BENZONATATE 200 MG ORAL CAPSULE 756864 BENZONATATE Inactive BACTRIM DS 800-160 MG ORAL TABLET 1 tab by mouth twice daily 2017 BACTRIM DS 800-160 MG ORAL TABLET 082531 TRIMETHOPRIM- SULFAMETHOXAZOLE Inactive BACTROBAN 2 % EXTERNAL OINTMENT Apply to affected area BID 05/18 BACTROBAN 2 % EXTERNAL OINTMENT 817801 MUPIROCIN Inactive CIPRO 500 MG ORAL TABLET 1 tablet by mouth twice daily CIPRO 500 MG ORAL TABLET 628563 CIPROFLOXACIN HCL Inactive CEFDINIR 300 MG ORAL CAPSULE by mouth twice a day CEFDINIR 300 MG ORAL CAPSULE 435022 CEFDINIR Inactive CLINDAMYCIN HCL 300 MG ORAL CAPSULE 1 po QID x 7 days CLINDAMYCIN HCL 300 MG ORAL CAPSULE 044792 CLINDAMYCIN HCL Inactive Advance Directives Directive Description [...] 6.2 % 4.3-6.0 cholesterol, serum 229 mg/dL 660-126 1098/07/24 triglyceride, serum, fasting 106 mg/dL 30-200 HDL cholesterol, serum 60 mg/dL 32-60 LDL cholesterol, serum 148 mg/dL 0-130 sodium, serum 139 mmol/L 564-423 8460/07/24 carbon dioxide, venous blood 34.8 mmol/L 21.0-32.0 [...] Panel - Chemistry cholesterol, serum 275 mg/dL 834-630 1757/11/07 triglyceride, serum, fasting 166 mg/dL 30-200 HDL cholesterol, serum 62 mg/dL 32-60 LDL cholesterol, serum 180 mg/dL 0-130 sodium, serum 141 mmol/L 448-761 7661/11/07 carbon dioxide, venous blood 26.3 mmol/L 21.0-32.0 [...] 0-19 Encounters Code Encounter Date Provider Facility CPT-42492 Level 3 Est. Patient 14:29:01 CDT Esa Jackson MD [facility] CPT-81393 Level 3 Est. Patient 14:06:16 CDT Andre Barreto MD [facility] CPT-49859 Level 3 Est. Patient 09:16:36 CDT David King [facility] CPT-08912 Level 3 Est. Patient 09:24:01 CHARGE HAND David King [facility] CPT-00321 Level 3 Est. Patient 13:01:07 CHARGE HAND Solitario Howe MD [facility] CPT-93022 Level 4 Est. Patient 10:26:48 CHARGE HAND nAdre Barreto MD [facility] CPT-54099 Level 4 Est. Patient 09:45:06 CDT Andre Barreto MD [facility] CPT-92827 Level 4 Est. Patient 11:53:39 CHARGE HAND Andre Barreto MD [facility] CPT-44883 Level 4 Est. Patient 14:21:31 CDT Andre Barreto MD [facility] CPT-80029 Level 4 Est. Patient 15:24:17 CDT Andre Barreto MD [facility] CPT-27889 Level 3 Est. Patient 10:36:40 CDT Andre Barreto MD [facility] CPT-56392 Level 4 Est. Patient 11:27:43 CDT Andre Barreto MD [facility] CPT-51707 Level 3 Est. Patient 10:57:31 CHARGE HAND Andre Barreto MD [facility] CPT-91636 Level 3 Est. Patient 13:53:13 CHARGE HAND Andre Barreto MD [facility] CPT-31992 Level 3 Est. Patient 09:16:12 CDT Andre Barreto MD [facility] CPT-68681 Level 3 Est. Patient 14:50:35 CDT Andre Barreto MD [facility] Procedures Code Procedure Name Date Entry Date Standard Description CPT-60178 Postop F/U Visit 14:31:27 CDT CPT-60274 Postop F/U Visit 14:30:20 CDT CPT-28798 Sono pelvis coley bladder only - XRAY USE ONLY 15:07:39 CDT CPT-79522 First Vx - Ix admin for Medicare patients 13:56:44 CHARGE HAND CPT-62613 Zostavax Subcutaneous Solution Reconstituted 90528 UNT/0.65ML 12/22 13:56:44 CHARGE HAND CPT-G0009 Administration of Pneumococcal Vaccine 10:12:50 CDT CPT-26370 Pneumovax 23 Injection Injectable 25 MCG/0.5ML 10:12:50 CDT CPT-G0439 Subsequent Annual Wellness Exam 09:49:25 CDT CPT-89156 First Vx - Ix admin for Medicare patients 17:55:11 CHARGE HAND CPT-96849 Fluzone High-Dose Intramuscular Suspension 17:55:11 CHARGE HAND CPT-42407 Venipuncture Draw Fee 14:11:36 CDT CPT-69698 Lipid - LAB USE ONLY 14:11:36 CDT CPT-79439 CMP - LAB USE ONLY 14:11:36 CDT CPT-G0438 Initial Annual Wellness Exam 13:29:06 CDT CPT-G0009 Administration of Pneumococcal Vaccine 13:26:57 CDT CPT-83348 Prevnar 13 Intramuscular Suspension 13:26:56 CDT 08/19 CPT-74027 Bone Density - XRAY USE ONLY 09:30:16 CDT CPT-Cryo Cryotherapy 08:59:26 CHARGE HAND CPT-Cryo Cryotherapy 08:46:02 CDT CPT-58511 Chest 2V Frontal and Lat 14:02:13 CHARGE HAND
--- OUTSIDE RECORDS SUMMARY | 2018-03-16 19:55 | XMS REPORT | Clinical Summary ---
Author Author Admin, EDUARDO Organization [employer] Address Unknown Phone Unavailable Allergies, Adverse Reactions, Alerts Allergy Name Reaction Description Start Date Severity Status Provider SULFA Mild No Longer Active Jillina Frazell [employer]APHIC WORKER PENICILLIN Mild No Longer Active Jillina Frazell [employer]AL L[employer]OGRAPHIC WORKER ZINC Mild No Longer Active Jillina Frazell [employer]AL [employer]GRAPHIC WORKER SULFA Critical No Longer Active Marcelle Yesi [...] Coronary atherosclerosis of unspecified type of vessel, [place] or graft Obstructive sleep apnea 327.23 Active [...] airway pressure rx V46.2 Active Pushpa Hernandez [employer]IC WORKER Other dependence on machines, supplemental oxygen Osteopenia 733.90 Active Pushpa Hernandez APRN Disorder of bone and cartilage, unspecified Obstructive sleep apnea 327.23 Active Andre Barreto MD Obstructive sleep apnea (adult) (pediatric) Acute exacerbation of chronic bronchitis 491.22 Inactive Solitario Howe MD Obstructive chronic bronchitis with acute bronchitis Sinusitis 473.9 Active David King [employer] WORKER Unspecified sinusitis (chronic) Abscess, skin 682.9 Active [...] Apply to affected area BID 05/18 MUPIROCIN 64464832384 No Longer Active Moira Price MA Active CLINDAMYCIN HCL 300 MG ORAL CAPSULE 1 po QID x 7 days CLINDAMYCIN HCL 70516104898 No Longer Active Jillina Frazell [employer]AL [employer]GRAPHIC WORKER Active BACTRIM DS 800-160 MG ORAL TABLET 1 tab by mouth twice daily 2017 TRIMETHOPRIM-SULFAMETHOXAZOLE 47758473490 No Longer Active Jillina Frazell [employer]AL [employer]OGRAPHIC WORKER Active GUAIFENESIN DM 400-20 MG ORAL TABLET 1 pill by mouth twice daily, if needed for cough DEXTROMETHORPHAN-GUAIFENESIN 31760384166 Active Jillina Frazell [employer]AL [employer]OGRAPHIC WORKER Active CEFDINIR 300 MG ORAL CAPSULE by mouth twice a day CEFDINIR 81249061383 No Longer Active Jillina Frazell GENERAL L[employer]OGRAPHIC WORKER Active BENZONATATE 200 MG ORAL CAPSULE 1 three times a day as needed for cough 03/27 BENZONATATE 34356193441 No Longer Active Luna Prabhakar Active ZITHROMAX Z-NEVAEH 250 MG ORAL TABLET 2 today and then 1 daily for 4 days 03/27 AZITHROMYCIN 70702373278 No Longer Active Luna Prabhakar Active PREDNISONE 20 MG ORAL TABLET 2 daily for 3 days then 1 daily for 3 days 03/27 PREDNISONE 52067076539 No Longer Active Luna Prabhakar Active ATORVASTATIN CALCIUM 40 MG ORAL TABLET 1 po qHS ATORVASTATIN CALCIUM 64043661859 Active Marcelle VERA Active CLOPIDOGREL BISULFATE 75 MG ORAL TABLET 1 po qd CLOPIDOGREL BISULFATE 41119404261 Active Andre Barreto MD Active FUROSEMIDE 20 MG ORAL TABLET 1 po qd PRN Edema FUROSEMIDE 68666061831 Active Andre Barreto MD Active PROAIR HFA 108 (90 Base) MCG/ACT INHALATION AEROSOL SOLUTION 2 puffs q4hr PRN Shortness of air/Wheezing ALBUTEROL SULFATE 35387581899 Active Andre Barreto MD Active ATORVASTATIN CALCIUM 80 MG ORAL TABLET 1 po qHS ATORVASTATIN CALCIUM 03048821924 No Longer Active Andre Barreto MD Active AMBIEN 5 MG ORAL TABLET 1 po qHS PRN Insomnia ZOLPIDEM TARTRATE 72532215909 Active Andre aBrreto MD Active DETROL 2 MG ORAL TABLET 1 po qd TOLTERODINE TARTRATE 95101977784 Active Andre Barreto MD Active NITROGLYCERIN 0.4 MG SUBLINGUAL TABLET SUBLINGUAL 1 SL q5min PRN Chest pain up to 3 doses NITROGLYCERIN 59665400083 Active Andre Barreto MD Active TOPROL XL 50 MG ORAL TABLET EXTENDED RELEASE 24 HOUR 1 po qd METOPROLOL SUCCINATE 75371398313 Active Andre Barreto MD Active SYMBICORT 160-4.5 MCG/ACT INHALATION AEROSOL 2 puff BID BUDESONIDE-FORMOTEROL FUMARATE 15111475872 Active Cayla VERA Active FLUOXETINE HCL 40 MG ORAL CAPSULE 1 po qd FLUOXETINE HCL 52199840246 Active Andre Barreto MD Active BENICAR HCT 40-25 MG ORAL TABLET Take one by mouth daily OLMESARTAN MEDOXOMIL-HCTZ 95451782710 No Longer Active Andre Barreto MD Active LOSARTAN POTASSIUM-HCTZ 100-25 MG ORAL TABLET 1 po qd LOSARTAN POTASSIUM-HCTZ 66576930855 Active Andre Barreto MD Active BETAMETHASONE DIPROPIONATE 0.05 % EXTERNAL OINTMENT Apply to affected areas BID for up to 2 weeks BETAMETHASONE DIPROPIONATE 09209030385 No Longer Active Andre Barreto MD Active ZOFRAN 4 MG ORAL TABLET 1 po q6hr PRN Nausea ONDANSETRON HCL 00810602540 No Longer Active Andre Barreto MD Active CIPRO 500 MG ORAL TABLET 1 tablet by mouth twice daily CIPROFLOXACIN HCL 75193189469 No Longer Active Andre Barreto MD Active SYMBICORT 160-4.5 MCG/ACT INHALATION AEROSOL 2 puffs inhaled bid BUDESONIDE-FORMOTEROL FUMARATE 95421275439 No Longer Active Andre Barreto MD Active DICLOFENAC SODIUM 75 MG ORAL TABLET DELAYED RELEASE 1 tablet by mouth twice daily DICLOFENAC SODIUM 86664775740 No Longer Active Andre Barreto MD Active PROZAC 40 MG ORAL CAPSULE 1 cap by mouth at bedtime FLUOXETINE HCL 22892197849 No Longer Active Andre Barreto MD Active HYDROCODONE-ACETAMINOPHEN 5-325 MG ORAL TABLET 1 po q 6hr PRN Pain HYDROCODONE-ACETAMINOPHEN 31974733633 No Longer Active Andre Barreto MD Active TRAMADOL HCL 50 MG ORAL TABLET 2 po q 6 hrs prn TRAMADOL HCL 49650985272 Active Andre Barreto MD Active HYDROCODONE-ACETAMINOPHEN 5-325 MG ORAL TABLET 1 po q 6hr PRN Pain HYDROCODONE-ACETAMINOPHEN 5-325 MG ORAL TABLET 187852 HYDROCODONE- ACETAMINOPHEN Inactive PROZAC 40 MG ORAL CAPSULE 1 cap by mouth at bedtime PROZAC 40 MG ORAL CAPSULE 014055 FLUOXETINE HCL Inactive DICLOFENAC SODIUM 75 MG ORAL TABLET DELAYED RELEASE 1 tablet by mouth twice daily DICLOFENAC SODIUM 75 MG ORAL TABLET DELAYED RELEASE 480782 DICLOFENAC SODIUM Inactive SYMBICORT 160-4.5 MCG/ACT INHALATION AEROSOL 2 puffs inhaled bid SYMBICORT 160-4.5 MCG/ACT INHALATION AEROSOL BUDESONIDE-FORMOTEROL FUMARATE Inactive ZOFRAN 4 MG ORAL TABLET 1 po q6hr PRN Nausea ZOFRAN 4 MG ORAL TABLET 101211 ONDANSETRON HCL Inactive BETAMETHASONE DIPROPIONATE 0.05 % EXTERNAL OINTMENT Apply to affected areas BID for up to 2 weeks BETAMETHASONE DIPROPIONATE 0.05 % EXTERNAL OINTMENT 300993 BETAMETHASONE DIPROPIONATE Inactive BENICAR HCT 40-25 MG ORAL TABLET Take one by mouth daily BENICAR HCT 40-25 MG ORAL TABLET 212362 OLMESARTAN MEDOXOMIL-HCTZ Inactive ATORVASTATIN CALCIUM 80 MG ORAL TABLET 1 po qHS ATORVASTATIN CALCIUM 80 MG ORAL TABLET 403340 ATORVASTATIN CALCIUM Inactive PREDNISONE 20 MG ORAL TABLET 2 daily for 3 days then 1 daily for 3 days 03/27 PREDNISONE 20 MG ORAL TABLET 136434 PREDNISONE Inactive ZITHROMAX Z-NEVAEH 250 MG ORAL TABLET 2 today and then 1 daily for 4 days 03/27 ZITHROMAX Z-NEVAEH 250 MG ORAL TABLET 318771 AZITHROMYCIN Inactive BENZONATATE 200 MG ORAL CAPSULE 1 three times a day as needed for cough 03/27 BENZONATATE 200 MG ORAL CAPSULE 087494 BENZONATATE Inactive BACTRIM DS 800-160 MG ORAL TABLET 1 tab by mouth twice daily 2017 BACTRIM DS 800-160 MG ORAL TABLET 498048 TRIMETHOPRIM- SULFAMETHOXAZOLE Inactive BACTROBAN 2 % EXTERNAL OINTMENT Apply to affected area BID 05/18 BACTROBAN 2 % EXTERNAL OINTMENT 488554 MUPIROCIN Inactive CIPRO 500 MG ORAL TABLET 1 tablet by mouth twice daily CIPRO 500 MG ORAL TABLET 603116 CIPROFLOXACIN HCL Inactive CEFDINIR 300 MG ORAL CAPSULE by mouth twice a day CEFDINIR 300 MG ORAL CAPSULE 916739 CEFDINIR Inactive CLINDAMYCIN HCL 300 MG ORAL CAPSULE 1 po QID x 7 days CLINDAMYCIN HCL 300 MG ORAL CAPSULE 324054 CLINDAMYCIN HCL Inactive Advance Directives Directive Description [...] 6.2 % 4.3-6.0 cholesterol, serum 229 mg/dL 535-624 4953/07/24 triglyceride, serum, fasting 106 mg/dL 30-200 HDL cholesterol, serum 60 mg/dL 32-60 LDL cholesterol, serum 148 mg/dL 0-130 sodium, serum 139 mmol/L 775-185 8757/07/24 carbon dioxide, venous blood 34.8 mmol/L 21.0-32.0 [...] Panel - Chemistry cholesterol, serum 275 mg/dL 068-694 3904/11/07 triglyceride, serum, fasting 166 mg/dL 30-200 HDL cholesterol, serum 62 mg/dL 32-60 LDL cholesterol, serum 180 mg/dL 0-130 sodium, serum 141 mmol/L 125-316 6484/11/07 carbon dioxide, venous blood 26.3 mmol/L 21.0-32.0 [...] 0-19 Encounters Code Encounter Date Provider Facility CPT-40067 Level 3 Est. Patient 14:29:01 CDT Esa Jackson MD [facility] CPT-14322 Level 3 Est. Patient 14:06:16 CDT Andre Barreto MD [facility] CPT-41849 Level 3 Est. Patient 09:16:36 CDT David King [facility] CPT-84947 Level 3 Est. Patient 09:24:01 TRANSITIONS RN CARE COORDINATOR David King [facility] CPT-35500 Level 3 Est. Patient 13:01:07 TRANSITIONS RN CARE COORDINATOR Solitario Howe MD [facility] CPT-59388 Level 4 Est. Patient 10:26:48 TRANSITIONS RN CARE COORDINATOR Andre Barreto MD [facility] CPT-17962 Level 4 Est. Patient 09:45:06 CDT Andre Barreto MD [facility] CPT-04048 Level 4 Est. Patient 11:53:39 TRANSITIONS RN CARE COORDINATOR Andre Barreto MD [facility] CPT-90218 Level 4 Est. Patient 14:21:31 CDT Andre Barreto MD [facility] CPT-00566 Level 4 Est. Patient 15:24:17 CDT Andre Barreto MD [facility] CPT-00410 Level 3 Est. Patient 10:36:40 CDT Andre Barreto MD [facility] CPT-97788 Level 4 Est. Patient 11:27:43 CDT Andre Barreto MD [facility] CPT-63447 Level 3 Est. Patient 10:57:31 TRANSITIONS RN CARE COORDINATOR Andre Barreto MD [facility] CPT-48436 Level 3 Est. Patient 13:53:13 TRANSITIONS RN CARE COORDINATOR Andre Barreto MD [facility] CPT-47869 Level 3 Est. Patient 09:16:12 CDT Andre Barreto MD [facility] CPT-82327 Level 3 Est. Patient 14:50:35 CDT Andre Barreto MD [facility] Procedures Code Procedure Name Date Entry Date Standard Description CPT-77887 Postop F/U Visit 14:31:27 CDT CPT-31051 Postop F/U Visit 14:30:20 CDT CPT-41866 Sono pelvis coley bladder only - XRAY USE ONLY 15:07:39 CDT CPT-42373 First Vx - Ix admin for Medicare patients 13:56:44 TRANSITIONS RN CARE COORDINATOR CPT-85174 Zostavax Subcutaneous Solution Reconstituted 34001 UNT/0.65ML 12/22 13:56:44 TRANSITIONS RN CARE COORDINATOR CPT-G0009 Administration of Pneumococcal Vaccine 10:12:50 CDT CPT-10875 Pneumovax 23 Injection Injectable 25 MCG/0.5ML 10:12:50 CDT CPT-G0439 Subsequent Annual Wellness Exam 09:49:25 CDT CPT-49010 First Vx - Ix admin for Medicare patients 17:55:11 TRANSITIONS RN CARE COORDINATOR CPT-21752 Fluzone High-Dose Intramuscular Suspension 17:55:11 TRANSITIONS RN CARE COORDINATOR CPT-52139 Venipuncture Draw Fee 14:11:36 CDT CPT-56113 Lipid - LAB USE ONLY 14:11:36 CDT CPT-11344 CMP - LAB USE ONLY 14:11:36 CDT CPT-G0438 Initial Annual Wellness Exam 13:29:06 CDT CPT-G0009 Administration of Pneumococcal Vaccine 13:26:57 CDT CPT-75209 Prevnar 13 Intramuscular Suspension 13:26:56 CDT 08/19 CPT-05567 Bone Density - XRAY USE ONLY 09:30:16 CDT CPT-Cryo Cryotherapy 08:59:26 TRANSITIONS RN CARE COORDINATOR CPT-Cryo Cryotherapy 08:46:02 CDT CPT-80313 Chest 2V Frontal and Lat 14:02:13 TRANSITIONS RN CARE COORDINATOR
--- OUTSIDE RECORDS SUMMARY | 2018-03-16 19:56 | XMS REPORT | Clinical Summary ---
Author Author Admin, EDUARDO Organization [employer] Address Unknown Phone Unavailable Allergies, Adverse Reactions, [...] Coronary atherosclerosis of unspecified type of vessel, [place] or graft Obstructive sleep apnea 327.23 Active Andre Barreto MD Obstructive sleep apnea (adult) (pediatric) Health screening V70.0 Active Andre Barreto MD Routine general medical examination at a health care facility Fever 780.60 Resolved Ander Barreto MD Fever, unspecified Actinic keratosis 702.0 [...] Patient Instruction TOPROL XL 50 MG ORAL [id number] 1 po qd METOPROLOL SUCCINATE 05747648035 Active Andre Barreto MD Active PLAVIX 75 MG TABS 1 po qd CLOPIDOGREL BISULFATE 30095717570 Active Andre Barreto MD Active LASIX 20 MG TAB 1 po qd PRN Edema FUROSEMIDE 13405618799 Active Andre Barreto MD Active ATORVASTATIN CALCIUM 80 MG TABS 1 po qHS ATORVASTATIN CALCIUM 61985970981 Active Andre Barreto MD Active SYMBICORT 160-4.5 MCG/ACT AERO 2 puff BID BUDESONIDE- FORMOTEROL FUMARATE 49918851274 Active Andre Barreto MD Active PROAIR HFA 108 (90 BASE) MCG/ACT AERS 2 puffs four times a day as needed 2015 ALBUTEROL SULFATE 81843066329 Active Andre Barreto MD Active FLUOXETINE HCL 40 MG ORAL CAPS 1 po qd FLUOXETINE HCL 06616070248 Active Andre Barreto MD Active DETROL 2 MG ORAL TABS one tab daily TOLTERODINE TARTRATE 71963687702 Active Andre Barreto MD Active BENICAR HCT 40-25 MG TABS Take one by mouth daily OLMESARTAN MEDOXOMIL-HCTZ 24653564263 No Longer Active Andre Barreto MD Active LOSARTAN POTASSIUM-HCTZ 100-25 MG TABS 1 po qd LOSARTAN POTASSIUM-HCTZ 42681637724 Active Andre Barreto MD Active BETAMETHASONE DIPROPIONATE 0.05 % OINT Apply to affected areas BID for up to 2 weeks BETAMETHASONE DIPROPIONATE 45495513339 No Longer Active Andre Barreto MD Active ZOFRAN 4 MG TABS 1 po q6hr PRN Nausea ONDANSETRON HCL 09799510939 No Longer Active Andre Barreto MD Active CIPRO 500 MG TAB 1 tablet by mouth twice daily CIPROFLOXACIN HCL 52758493943 No Longer Active Andre Barreto MD Active SYMBICORT 160-4.5 MCG/ACT AERO 2 puffs inhaled bid BUDESONIDE- FORMOTEROL FUMARATE 16679062759 No Longer Active Andre Barreto MD Active NITROSTAT 0.4 MG SL TAB disolve 1 under tongue repeat if needed NITROGLYCERIN 13818971957 Active Andre Barreto MD Active DICLOFENAC SODIUM 75 MG TBEC 1 tablet by mouth twice daily DICLOFENAC SODIUM 92850709873 No Longer Active Andre Barreto MD Active PROZAC 40 MG CAPS 1 cap by mouth at bedtime FLUOXETINE HCL 20590235845 No Longer Active Andre Barreto MD Active HYDROCODONE-ACETAMINOPHEN 5-325 MG TABS 1 po q 6hr PRN Pain HYDROCODONE-ACETAMINOPHEN 43302900567 No Longer Active Andre Barreto MD Active TRAMADOL HCL 50 MG TABS 2 po q 6 hrs prn TRAMADOL HCL 28811369477 Active Andre Barreto MD Active AMBIEN 5 MG TABS 1 po a hs prn ZOLPIDEM TARTRATE 71656541097 Active Andre Barreto MD Active HYDROCODONE-ACETAMINOPHEN 5-325 MG TABS 1 po q 6hr PRN Pain HYDROCODONE-ACETAMINOPHEN 5-325 MG TABS 542657 HYDROCODONE-ACETAMINOPHEN Inactive PROZAC 40 MG CAPS 1 cap by mouth at bedtime PROZAC 40 MG CAPS 525482 FLUOXETINE HCL Inactive DICLOFENAC SODIUM 75 MG TBEC 1 tablet by mouth twice daily DICLOFENAC SODIUM 75 MG TBEC 475631 DICLOFENAC SODIUM Inactive SYMBICORT 160-4.5 MCG/ACT AERO 2 puffs inhaled bid SYMBICORT 160-4.5 MCG/ACT AERO BUDESONIDE-FORMOTEROL FUMARATE Inactive ZOFRAN 4 MG TABS 1 po q6hr PRN Nausea ZOFRAN 4 MG TABS 291438 ONDANSETRON HCL Inactive BETAMETHASONE DIPROPIONATE 0.05 % OINT Apply to affected areas BID for up to 2 weeks BETAMETHASONE DIPROPIONATE 0.05 % OINT 758761 BETAMETHASONE DIPROPIONATE Inactive BENICAR HCT 40-25 MG TABS Take one by mouth daily BENICAR HCT 40-25 MG TABS OLMESARTAN MEDOXOMIL-HCTZ Inactive CIPRO 500 MG TAB 1 tablet by mouth twice daily CIPRO 500 MG TAB 754045 CIPROFLOXACIN HCL Inactive Advance Directives Directive Description [...] ... - Chemistry sodium, serum 140 mmol/L 682-067 7144/06/28 carbon dioxide, venous blood 32.4 mmol/L 21.0-32.0 potassium, serum 4.0 mmol/L 3.5-5.2 chloride, serum 101 mmol/L 98-107 blood glucose 108 mg/dL 65-110 urea nitrogen, blood 20 mg/dL 7-18 creatinine, serum 0.98 mg/dL 0.55-1.30 alanine aminotransferase (SGPT), serum 44 U/L 12-78 aspartate aminotransferase (SGOT), serum 27 U/L 15-37 calcium, serum 9.4 mg/dL 8.5-10.1 bilirubin, serum, total 0.30 mg/dL 0.00-1.00 cholesterol, serum 264 mg/dL 232-347 1216/06/28 triglyceride, serum, fasting 146 mg/dL 30-200 HDL [...] Panel - Chemistry sodium, serum 143 mmol/L 410-433 9395/09/27 carbon dioxide, venous blood 30.1 mmol/L 21.0-32.0 potassium, serum 3.9 mmol/L 3.5-5.2 chloride, serum 107 mmol/L 98-107 blood glucose 114 mg/dL 65-110 urea nitrogen, blood 14 mg/dL 7-18 creatinine, serum 0.79 mg/dL 0.55-1.30 alanine aminotransferase (SGPT), serum 44 U/L 12-78 aspartate aminotransferase (SGOT), serum 25 U/L 15-37 calcium, serum 8.5 mg/dL 8.5-10.1 bilirubin, serum, total 0.30 mg/dL 0.00-1.00 cholesterol, serum 152 mg/dL 673-433 0474/09/27 triglyceride, serum, fasting 85 mg/dL 30-200 HDL cholesterol, serum 59 mg/dL 32-96 LDL cholesterol, serum 76 mg/dL 0-130 Encounters Code Encounter Date Provider Facility CPT-57571 Level 4 Est. Patient 14:21:31 CDT Andre Barreto MD [facility] CPT-43689 Level 4 Est. Patient 15:24:17 CDT Andre Barreto MD [facility] CPT-07799 Level 3 Est. Patient 10:36:40 CDT Andre Barreto MD [facility] CPT-45980 Level 4 Est. Patient 11:27:43 CDT Andre Barreto MD [facility] CPT-30006 Level 3 Est. Patient 10:57:31 USED [employer] Andre Barreto MD [facility] CPT-36547 Level 3 Est. Patient 13:53:13 USED [employer] Andre Barreto MD [facility] CPT-56210 Level 3 Est. Patient 09:16:12 CDT Andre Barreto MD [facility] CPT-92801 Level 3 Est. Patient 14:50:35 CDT Andre Barreto MD [facility] Procedures Code Procedure Name Date Entry Date Standard Description CPT-65921 Venipuncture Draw Fee 14:11:36 CDT CPT-51892 Lipid - LAB USE ONLY 14:11:36 CDT CPT-91675 CMP - LAB USE ONLY 14:11:36 CDT CPT-G0438 Initial Annual Wellness Exam 13:29:06 CDT CPT-G0009 Administration of Pneumococcal Vaccine 13:26:57 CDT CPT-36138 Prevnar 13 Intramuscular Suspension 13:26:56 CDT 08/19 CPT-32508 Bone Density - XRAY USE ONLY 09:30:16 CDT CPT-Cryo Cryotherapy 08:59:26 USED [employer] CPT-Cryo Cryotherapy 08:46:02 CDT CPT-23793 Chest 2V Frontal and Lat 14:02:13 USED [employer]
--- OUTSIDE RECORDS SUMMARY | 2018-03-16 19:57 | XMS REPORT | Clinical Summary ---
Author Author Admin, EDUARDO Organization [employer] Address Unknown Phone Unavailable Allergies, Adverse Reactions, [...] of unspecified type of vessel, [place] or graft Obstructive sleep apnea 327.23 Active [...] Patient Instruction TOPROL XL 50 MG ORAL [id number] 1 po qd METOPROLOL SUCCINATE 07037577361 Active Andre Barreto MD Active PLAVIX 75 MG TABS 1 po qd CLOPIDOGREL BISULFATE 12388409492 Active Andre Barreto MD Active LASIX 20 MG TAB 1 po qd PRN Edema FUROSEMIDE 61100344987 Active Andre Barreto MD Active ATORVASTATIN CALCIUM 80 MG TABS 1 po qHS ATORVASTATIN CALCIUM 08392856694 Active Andre Barreto MD Active SYMBICORT 160-4.5 MCG/ACT AERO 2 puff BID BUDESONIDE- FORMOTEROL FUMARATE 62110452724 Active Andre Barreto MD Active PROAIR HFA 108 (90 BASE) MCG/ACT AERS 2 puffs four times a day as needed 2015 ALBUTEROL SULFATE 53202758315 Active Andre Barreto MD Active FLUOXETINE HCL 40 MG ORAL CAPS 1 po qd FLUOXETINE HCL 81508683852 Active Andre Barreto MD Active DETROL 2 MG ORAL TABS one tab daily TOLTERODINE TARTRATE 93157527961 Active Andre Barreto MD Active BENICAR HCT 40-25 MG TABS Take one by mouth daily OLMESARTAN MEDOXOMIL-HCTZ 45999461321 No Longer Active Andre Barreto MD Active LOSARTAN POTASSIUM-HCTZ 100-25 MG TABS 1 po qd LOSARTAN POTASSIUM-HCTZ 90072037415 Active Andre Barreto MD Active BETAMETHASONE DIPROPIONATE 0.05 % OINT Apply to affected areas BID for up to 2 weeks BETAMETHASONE DIPROPIONATE 59046743378 No Longer Active Andre Barreto MD Active ZOFRAN 4 MG TABS 1 po q6hr PRN Nausea ONDANSETRON HCL 98416486615 No Longer Active Andre Barreto MD Active CIPRO 500 MG TAB 1 tablet by mouth twice daily CIPROFLOXACIN HCL 36679146650 No Longer Active Andre Barreto MD Active SYMBICORT 160-4.5 MCG/ACT AERO 2 puffs inhaled bid BUDESONIDE- FORMOTEROL FUMARATE 43766256117 No Longer Active Andre Barreto MD Active NITROSTAT 0.4 MG SL TAB disolve 1 under tongue repeat if needed NITROGLYCERIN 21932389474 Active Andre Barreto MD Active DICLOFENAC SODIUM 75 MG TBEC 1 tablet by mouth twice daily DICLOFENAC SODIUM 71706694627 No Longer Active Andre Barreto MD Active PROZAC 40 MG CAPS 1 cap by mouth at bedtime FLUOXETINE HCL 60601836701 No Longer Active Andre Barreto MD Active HYDROCODONE-ACETAMINOPHEN 5-325 MG TABS 1 po q 6hr PRN Pain HYDROCODONE-ACETAMINOPHEN 13355449880 No Longer Active Andre Barreto MD Active TRAMADOL HCL 50 MG TABS 2 po q 6 hrs prn TRAMADOL HCL 96998028279 Active Andre Barreto MD Active AMBIEN 5 MG TABS 1 po a hs prn ZOLPIDEM TARTRATE 15619981583 Active Andre Barreto MD Active HYDROCODONE-ACETAMINOPHEN 5-325 MG TABS 1 po q 6hr PRN Pain HYDROCODONE-ACETAMINOPHEN 5-325 MG TABS 874287 HYDROCODONE-ACETAMINOPHEN Inactive PROZAC 40 MG CAPS 1 cap by mouth at bedtime PROZAC 40 MG CAPS 482053 FLUOXETINE HCL Inactive DICLOFENAC SODIUM 75 MG TBEC 1 tablet by mouth twice daily DICLOFENAC SODIUM 75 MG TBEC 761388 DICLOFENAC SODIUM Inactive SYMBICORT 160-4.5 MCG/ACT AERO 2 puffs inhaled bid SYMBICORT 160-4.5 MCG/ACT AERO BUDESONIDE-FORMOTEROL FUMARATE Inactive ZOFRAN 4 MG TABS 1 po q6hr PRN Nausea ZOFRAN 4 MG TABS 210993 ONDANSETRON HCL Inactive BETAMETHASONE DIPROPIONATE 0.05 % OINT Apply to affected areas BID for up to 2 weeks BETAMETHASONE DIPROPIONATE 0.05 % OINT 482226 BETAMETHASONE DIPROPIONATE Inactive BENICAR HCT 40-25 MG TABS Take one by mouth daily BENICAR HCT 40-25 MG TABS OLMESARTAN MEDOXOMIL-HCTZ Inactive CIPRO 500 MG TAB 1 tablet by mouth twice daily CIPRO 500 MG TAB 130635 CIPROFLOXACIN HCL Inactive Advance Directives Directive Description [...] ... - Chemistry sodium, serum 140 mmol/L 960-088 2984/06/28 carbon dioxide, venous blood 32.4 mmol/L 21.0-32.0 potassium, serum 4.0 mmol/L 3.5-5.2 chloride, serum 101 mmol/L 98-107 blood glucose 108 mg/dL 65-110 urea nitrogen, blood 20 mg/dL 7-18 creatinine, serum 0.98 mg/dL 0.55-1.30 alanine aminotransferase (SGPT), serum 44 U/L 12-78 aspartate aminotransferase (SGOT), serum 27 U/L 15-37 calcium, serum 9.4 mg/dL 8.5-10.1 bilirubin, serum, total 0.30 mg/dL 0.00-1.00 cholesterol, serum 264 mg/dL 164-800 3122/06/28 triglyceride, serum, fasting 146 mg/dL 30-200 HDL [...] Panel - Chemistry sodium, serum 143 mmol/L 566-259 3337/09/27 carbon dioxide, venous blood 30.1 mmol/L 21.0-32.0 potassium, serum 3.9 mmol/L 3.5-5.2 chloride, serum 107 mmol/L 98-107 blood glucose 114 mg/dL 65-110 urea nitrogen, blood 14 mg/dL 7-18 creatinine, serum 0.79 mg/dL 0.55-1.30 alanine aminotransferase (SGPT), serum 44 U/L 12-78 aspartate aminotransferase (SGOT), serum 25 U/L 15-37 calcium, serum 8.5 mg/dL 8.5-10.1 bilirubin, serum, total 0.30 mg/dL 0.00-1.00 cholesterol, serum 152 mg/dL 685-034 8244/09/27 triglyceride, serum, fasting 85 mg/dL 30-200 HDL cholesterol, serum 59 mg/dL 32-96 LDL cholesterol, serum 76 mg/dL 0-130 Encounters Code Encounter Date Provider Facility CPT-87110 Level 4 Est. Patient 14:21:31 CDT Andre Barreto MD [facility] CPT-21015 Level 4 Est. Patient 15:24:17 CDT Andre Barreto MD [facility] CPT-33953 Level 3 Est. Patient 10:36:40 CDT Andre Barreto MD [facility] CPT-90769 Level 4 Est. Patient 11:27:43 CDT Andre Barreto MD [facility] CPT-11659 Level 3 Est. Patient 10:57:31 MANUFACTURING [employer]OB [employer]ITLES Andre Barreto MD [facility] CPT-40079 Level 3 Est. Patient 13:53:13 MANUFACTURING JOB TITLES Andre Barreto MD [facility] CPT-23702 Level 3 Est. Patient 09:16:12 CDT Andre Barreto MD [facility] CPT-94474 Level 3 Est. Patient 14:50:35 CDT Andre Barreto MD [facility] Procedures Code Procedure Name Date Entry Date Standard Description CPT-48363 Venipuncture Draw Fee 14:11:36 CDT CPT-70641 Lipid - LAB USE ONLY 14:11:36 CDT CPT-18891 CMP - LAB USE ONLY 14:11:36 CDT CPT-G0438 Initial Annual Wellness Exam 13:29:06 CDT CPT-G0009 Administration of Pneumococcal Vaccine 13:26:57 CDT CPT-54841 Prevnar 13 Intramuscular Suspension 13:26:56 CDT 08/19 CPT-28412 Bone Density - XRAY USE ONLY 09:30:16 CDT CPT-Cryo Cryotherapy 08:59:26 MANUFACTURING JOB TITLES CPT-Cryo Cryotherapy 08:46:02 CDT CPT-91228 Chest 2V Frontal and Lat 14:02:13 MANUFACTURING JOB TITLES
--- OUTSIDE RECORDS SUMMARY | 2018-03-16 19:59 | XMS REPORT | Clinical Summary ---
Author Author Admin, EDUARDO Organization [employer] Address Unknown Phone Unavailable Allergies, Adverse Reactions, Alerts Allergy Name Reaction Description Start Date Severity Status Provider SULFA Critical Active Marcelle Ysei RMA PENICILLIN Critical Active Marcelle Yesi RMA [...] Coronary atherosclerosis of unspecified type of vessel, [place] or graft Obstructive sleep apnea 327.23 Active [...] Patient Instruction TOPROL XL 50 MG ORAL [id number] 1 po qd METOPROLOL SUCCINATE 20562291427 Active Andre Barreto MD Active PLAVIX 75 MG TABS 1 po qd CLOPIDOGREL BISULFATE 20196415238 Active Andre Barreto MD Active LASIX 20 MG TAB 1 po qd PRN Edema FUROSEMIDE 37418575308 Active Andre Barreto MD Active ATORVASTATIN CALCIUM 80 MG TABS 1 po qHS ATORVASTATIN CALCIUM 49850352325 Active Andre Barreto MD Active SYMBICORT 160-4.5 MCG/ACT AERO 2 puff BID BUDESONIDE- FORMOTEROL FUMARATE 07913933236 Active Andre Brareto MD Active PROAIR HFA 108 (90 BASE) MCG/ACT AERS 2 puffs four times a day as needed 2015 ALBUTEROL SULFATE 21862955407 Active Andre Barreto MD Active FLUOXETINE HCL 40 MG ORAL CAPS 1 po qd FLUOXETINE HCL 49778868879 Active Andre Barreto MD Active DETROL 2 MG ORAL TABS one tab daily TOLTERODINE TARTRATE 73019074250 Active Andre Barreto MD Active BENICAR HCT 40-25 MG TABS Take one by mouth daily OLMESARTAN MEDOXOMIL-HCTZ 32072660931 No Longer Active Andre Barreto MD Active LOSARTAN POTASSIUM-HCTZ 100-25 MG TABS 1 po qd LOSARTAN POTASSIUM-HCTZ 04955699810 Active Andre Barreto MD Active BETAMETHASONE DIPROPIONATE 0.05 % OINT Apply to affected areas BID for up to 2 weeks BETAMETHASONE DIPROPIONATE 68986583788 No Longer Active Andre Barreto MD Active ZOFRAN 4 MG TABS 1 po q6hr PRN Nausea ONDANSETRON HCL 55628930801 No Longer Active Andre Barreto MD Active CIPRO 500 MG TAB 1 tablet by mouth twice daily CIPROFLOXACIN HCL 22793095744 No Longer Active Andre Barreto MD Active SYMBICORT 160-4.5 MCG/ACT AERO 2 puffs inhaled bid BUDESONIDE- FORMOTEROL FUMARATE 38927836897 No Longer Active Andre Barreto MD Active NITROSTAT 0.4 MG SL TAB disolve 1 under tongue repeat if needed NITROGLYCERIN 14794652609 Active Andre Barreto MD Active DICLOFENAC SODIUM 75 MG TBEC 1 tablet by mouth twice daily DICLOFENAC SODIUM 50618136796 No Longer Active Andre Barreto MD Active PROZAC 40 MG CAPS 1 cap by mouth at bedtime FLUOXETINE HCL 54233303779 No Longer Active Andre Barreto MD Active HYDROCODONE-ACETAMINOPHEN 5-325 MG TABS 1 po q 6hr PRN Pain HYDROCODONE-ACETAMINOPHEN 72003367171 No Longer Active Andre Barreto MD Active TRAMADOL HCL 50 MG TABS 2 po q 6 hrs prn TRAMADOL HCL 71130303568 Active Andre Barreto MD Active AMBIEN 5 MG TABS 1 po a hs prn ZOLPIDEM TARTRATE 57065545959 Active Andre Barreto MD Active HYDROCODONE-ACETAMINOPHEN 5-325 MG TABS 1 po q 6hr PRN Pain HYDROCODONE-ACETAMINOPHEN 5-325 MG TABS 689929 HYDROCODONE-ACETAMINOPHEN Inactive PROZAC 40 MG CAPS 1 cap by mouth at bedtime PROZAC 40 MG CAPS 144593 FLUOXETINE HCL Inactive DICLOFENAC SODIUM 75 MG TBEC 1 tablet by mouth twice daily DICLOFENAC SODIUM 75 MG TBEC 776900 DICLOFENAC SODIUM Inactive SYMBICORT 160-4.5 MCG/ACT AERO 2 puffs inhaled bid SYMBICORT 160-4.5 MCG/ACT AERO BUDESONIDE-FORMOTEROL FUMARATE Inactive ZOFRAN 4 MG TABS 1 po q6hr PRN Nausea ZOFRAN 4 MG TABS 301938 ONDANSETRON HCL Inactive BETAMETHASONE DIPROPIONATE 0.05 % OINT Apply to affected areas BID for up to 2 weeks BETAMETHASONE DIPROPIONATE 0.05 % OINT 184257 BETAMETHASONE DIPROPIONATE Inactive BENICAR HCT 40-25 MG TABS Take one by mouth daily BENICAR HCT 40-25 MG TABS OLMESARTAN MEDOXOMIL-HCTZ Inactive CIPRO 500 MG TAB 1 tablet by mouth twice daily CIPRO 500 MG TAB 035922 CIPROFLOXACIN HCL Inactive Advance Directives Directive Description [...] pressure, diastolic - 8462-4 72 mm[Hg] BP pta blood pressure, systolic - 8480-6 149 mm[Hg] [...] ... - Chemistry sodium, serum 140 mmol/L 908-233 8759/06/28 carbon dioxide, venous blood 32.4 mmol/L 21.0-32.0 potassium, serum 4.0 mmol/L 3.5-5.2 chloride, serum 101 mmol/L 98-107 blood glucose 108 mg/dL 65-110 urea nitrogen, blood 20 mg/dL 7-18 creatinine, serum 0.98 mg/dL 0.55-1.30 alanine aminotransferase (SGPT), serum 44 U/L 12-78 aspartate aminotransferase (SGOT), serum 27 U/L 15-37 calcium, serum 9.4 mg/dL 8.5-10.1 bilirubin, serum, total 0.30 mg/dL 0.00-1.00 cholesterol, serum 264 mg/dL 371-137 7385/06/28 triglyceride, serum, fasting 146 mg/dL 30-200 HDL [...] Panel - Chemistry sodium, serum 143 mmol/L 467-973 5450/09/27 carbon dioxide, venous blood 30.1 mmol/L 21.0-32.0 potassium, serum 3.9 mmol/L 3.5-5.2 chloride, serum 107 mmol/L 98-107 blood glucose 114 mg/dL 65-110 urea nitrogen, blood 14 mg/dL 7-18 creatinine, serum 0.79 mg/dL 0.55-1.30 alanine aminotransferase (SGPT), serum 44 U/L 12-78 aspartate aminotransferase (SGOT), serum 25 U/L 15-37 calcium, serum 8.5 mg/dL 8.5-10.1 bilirubin, serum, total 0.30 mg/dL 0.00-1.00 cholesterol, serum 152 mg/dL 386-803 0579/09/27 triglyceride, serum, fasting 85 mg/dL 30-200 HDL cholesterol, serum 59 mg/dL 32-96 LDL cholesterol, serum 76 mg/dL 0-130 Encounters Code Encounter Date Provider Facility CPT-86667 Level 4 Est. Patient 14:21:31 CDT Andre Barreto MD [facility] CPT-79369 Level 4 Est. Patient 15:24:17 CDT Andre Barreto MD [facility] CPT-32620 Level 3 Est. Patient 10:36:40 CDT Andre Barreto MD [facility] CPT-22632 Level 4 Est. Patient 11:27:43 CDT Andre Barreto MD [facility] CPT-39448 Level 3 Est. Patient 10:57:31 PLATER PRODUCTION Andre Barreto MD [facility] CPT-08459 Level 3 Est. Patient 13:53:13 PLATER PRODUCTION Andre Barreto MD [facility] CPT-79732 Level 3 Est. Patient 09:16:12 CDT Andre Barreto MD [facility] CPT-01744 Level 3 Est. Patient 14:50:35 CDT Andre Barreto MD [facility] Procedures Code Procedure Name Date Entry Date Standard Description CPT-73996 Venipuncture Draw Fee 14:11:36 CDT CPT-84413 Lipid - LAB USE ONLY 14:11:36 CDT CPT-16218 CMP - LAB USE ONLY 14:11:36 CDT CPT-G0438 Initial Annual Wellness Exam 13:29:06 CDT CPT-G0009 Administration of Pneumococcal Vaccine 13:26:57 CDT CPT-66841 Prevnar 13 Intramuscular Suspension 13:26:56 CDT 08/19 CPT-42157 Bone Density - XRAY USE ONLY 09:30:16 CDT CPT-Cryo Cryotherapy 08:59:26 PLATER PRODUCTION CPT-Cryo Cryotherapy 08:46:02 CDT CPT-70751 Chest 2V Frontal and Lat 14:02:13 PLATER PRODUCTION
--- OUTSIDE RECORDS SUMMARY | 2018-03-16 20:02 | XMS REPORT | Clinical Summary ---
Author Author Admin, EDUARDO Organization [employer] Address Unknown Phone Unavailable Allergies, Adverse Reactions, Alerts Allergy Name Reaction Description Start Date Severity Status Provider SULFA Mild No Longer Active Jillina Frazell LASTING ROOM SUPERVISOR PENICILLIN Mild No Longer Active Jillina Frazell LASTING ROOM SUPERVISOR ZINC Mild No Longer Active Jillina Frazell LASTING ROOM SUPERVISOR SULFA Critical No Longer Active Marcelle [...] Coronary atherosclerosis of unspecified type of vessel, [place] or graft Obstructive sleep apnea 327.23 Active [...] airway pressure rx V46.2 Active Pushpa Hernandez LASTING ROOM SUPERVISOR Other dependence on machines, supplemental oxygen Osteopenia 733.90 Active Pushpa Hernandez APRN Disorder of bone and cartilage, unspecified Obstructive sleep apnea 327.23 Active Andre Barreto MD Obstructive sleep apnea (adult) (pediatric) Acute exacerbation of chronic bronchitis 491.22 Inactive Solitario Howe MD Obstructive chronic bronchitis with acute bronchitis Sinusitis 473.9 Active David King LASTING ROOM SUPERVISOR Unspecified sinusitis (chronic) Abscess, skin 682.9 Active David King APRN Cellulitis and abscess of unspecified sites DYSPNEA ICD-786.09 Inactive Andre Barreto MD 2012 FATIGUE ICD-780.79 Inactive Andre Barreto MD 2012 DYSPNEA ICD-786.05 Inactive Andre Barreto MD 2012 Fever ICD-780.60 Inactive Andre Barreto MD 05/23 Actinic keratosis ICD-702.0 Inactive Andre Barreto MD Seborrheic keratosis ICD-702.19 Inactive Andre Barreto MD Skin tag ICD-701.9 Inactive Andre Barreot MD 2014 Weakness, muscle ICD-728.87 Inactive Andre [...] Apply to affected area BID 05/18 MUPIROCIN 30084904207 No Longer Active Moira Price MA Active CLINDAMYCIN HCL 300 MG ORAL CAPSULE 1 po QID x 7 days CLINDAMYCIN HCL 44616232393 No Longer Active Jillina Frazell LASTING ROOM SUPERVISOR Active BACTRIM DS 800-160 MG ORAL TABLET 1 tab by mouth twice daily 2017 TRIMETHOPRIM-SULFAMETHOXAZOLE 03657893477 No Longer Active Jillina Frazell LASTING ROOM SUPERVISOR Active GUAIFENESIN DM 400-20 MG ORAL TABLET 1 pill by mouth twice daily, if needed for cough DEXTROMETHORPHAN-GUAIFENESIN 86259950972 Active Jillina Frazell LASTING ROOM SUPERVISOR Active CEFDINIR 300 MG ORAL CAPSULE by mouth twice a day CEFDINIR 88792921191 No Longer Active Jillina Frazell LASTING ROOM SUPERVISOR Active BENZONATATE 200 MG ORAL CAPSULE 1 three times a day as needed for cough 03/27 BENZONATATE 03580773910 No Longer Active Luna Prabhakar Active ZITHROMAX Z-NEVAEH 250 MG ORAL TABLET 2 today and then 1 daily for 4 days 03/27 AZITHROMYCIN 63551950731 No Longer Active Luna Prabhakar Active PREDNISONE 20 MG ORAL TABLET 2 daily for 3 days then 1 daily for 3 days 03/27 PREDNISONE 42308309895 No Longer Active Luan Prabhakar Active ATORVASTATIN CALCIUM 40 MG ORAL TABLET 1 po qHS ATORVASTATIN CALCIUM 36138187267 Active Marcelle VERA Active CLOPIDOGREL BISULFATE 75 MG ORAL TABLET 1 po qd CLOPIDOGREL BISULFATE 43603576765 Active Andre Barreto MD Active FUROSEMIDE 20 MG ORAL TABLET 1 po qd PRN Edema FUROSEMIDE 45423547094 Active Andre Barreto MD Active PROAIR HFA 108 (90 Base) MCG/ACT INHALATION AEROSOL SOLUTION 2 puffs q4hr PRN Shortness of air/Wheezing ALBUTEROL SULFATE 87808482750 Active Andre Barreto MD Active ATORVASTATIN CALCIUM 80 MG ORAL TABLET 1 po qHS ATORVASTATIN CALCIUM 46683660647 No Longer Active Andre Barreto MD Active AMBIEN 5 MG ORAL TABLET 1 po qHS PRN Insomnia ZOLPIDEM TARTRATE 92132284821 Active Andre Barreto MD Active DETROL 2 MG ORAL TABLET 1 po qd TOLTERODINE TARTRATE 00868821324 Active Andre Barreto MD Active NITROGLYCERIN 0.4 MG SUBLINGUAL TABLET SUBLINGUAL 1 SL q5min PRN Chest pain up to 3 doses NITROGLYCERIN 09763677779 Active Andre Barreto MD Active TOPROL XL 50 MG ORAL TABLET EXTENDED RELEASE 24 HOUR 1 po qd METOPROLOL SUCCINATE 47932820539 Active Andre Barreto MD Active SYMBICORT 160-4.5 MCG/ACT INHALATION AEROSOL 2 puff BID BUDESONIDE-FORMOTEROL FUMARATE 86819876893 Active Cayla VERA Active FLUOXETINE HCL 40 MG ORAL CAPSULE 1 po qd FLUOXETINE HCL 78779362158 Active Andre Barreto MD Active BENICAR HCT 40-25 MG ORAL TABLET Take one by mouth daily OLMESARTAN MEDOXOMIL-HCTZ 82533080159 No Longer Active Andre Barreto MD Active LOSARTAN POTASSIUM-HCTZ 100-25 MG ORAL TABLET 1 po qd LOSARTAN POTASSIUM-HCTZ 76430339558 Active Andre Barreto MD Active BETAMETHASONE DIPROPIONATE 0.05 % EXTERNAL OINTMENT Apply to affected areas BID for up to 2 weeks BETAMETHASONE DIPROPIONATE 10933768013 No Longer Active Andre Barreto MD Active ZOFRAN 4 MG ORAL TABLET 1 po q6hr PRN Nausea ONDANSETRON HCL 14754769756 No Longer Active Andre Barreto MD Active CIPRO 500 MG ORAL TABLET 1 tablet by mouth twice daily CIPROFLOXACIN HCL 17994136822 No Longer Active Andre Barreto MD Active SYMBICORT 160-4.5 MCG/ACT INHALATION AEROSOL 2 puffs inhaled bid BUDESONIDE-FORMOTEROL FUMARATE 71494143912 No Longer Active Andre Barreto MD Active DICLOFENAC SODIUM 75 MG ORAL TABLET DELAYED RELEASE 1 tablet by mouth twice daily DICLOFENAC SODIUM 61643883996 No Longer Active Andre Barreto MD Active PROZAC 40 MG ORAL CAPSULE 1 cap by mouth at bedtime FLUOXETINE HCL 31906771673 No Longer Active Andre Barreto MD Active HYDROCODONE-ACETAMINOPHEN 5-325 MG ORAL TABLET 1 po q 6hr PRN Pain HYDROCODONE-ACETAMINOPHEN 95148424242 No Longer Active Andre Barreto MD Active TRAMADOL HCL 50 MG ORAL TABLET 2 po q 6 hrs prn TRAMADOL HCL 58243777616 Active Andre Barreto MD Active HYDROCODONE-ACETAMINOPHEN 5-325 MG ORAL TABLET 1 po q 6hr PRN Pain HYDROCODONE-ACETAMINOPHEN 5-325 MG ORAL TABLET 182350 HYDROCODONE- ACETAMINOPHEN Inactive PROZAC 40 MG ORAL CAPSULE 1 cap by mouth at bedtime PROZAC 40 MG ORAL CAPSULE 159564 FLUOXETINE HCL Inactive DICLOFENAC SODIUM 75 MG ORAL TABLET DELAYED RELEASE 1 tablet by mouth twice daily DICLOFENAC SODIUM 75 MG ORAL TABLET DELAYED RELEASE 155407 DICLOFENAC SODIUM Inactive SYMBICORT 160-4.5 MCG/ACT INHALATION AEROSOL 2 puffs inhaled bid SYMBICORT 160-4.5 MCG/ACT INHALATION AEROSOL BUDESONIDE-FORMOTEROL FUMARATE Inactive ZOFRAN 4 MG ORAL TABLET 1 po q6hr PRN Nausea ZOFRAN 4 MG ORAL TABLET 397429 ONDANSETRON HCL Inactive BETAMETHASONE DIPROPIONATE 0.05 % EXTERNAL OINTMENT Apply to affected areas BID for up to 2 weeks BETAMETHASONE DIPROPIONATE 0.05 % EXTERNAL OINTMENT 631677 BETAMETHASONE DIPROPIONATE Inactive BENICAR HCT 40-25 MG ORAL TABLET Take one by mouth daily BENICAR HCT 40-25 MG ORAL TABLET 397541 OLMESARTAN MEDOXOMIL-HCTZ Inactive ATORVASTATIN CALCIUM 80 MG ORAL TABLET 1 po qHS ATORVASTATIN CALCIUM 80 MG ORAL TABLET 313662 ATORVASTATIN CALCIUM Inactive PREDNISONE 20 MG ORAL TABLET 2 daily for 3 days then 1 daily for 3 days 03/27 PREDNISONE 20 MG ORAL TABLET 158299 PREDNISONE Inactive ZITHROMAX Z-ENVAEH 250 MG ORAL TABLET 2 today and then 1 daily for 4 days 03/27 ZITHROMAX Z-NEVAEH 250 MG ORAL TABLET 943629 AZITHROMYCIN Inactive BENZONATATE 200 MG ORAL CAPSULE 1 three times a day as needed for cough 03/27 BENZONATATE 200 MG ORAL CAPSULE 159324 BENZONATATE Inactive BACTRIM DS 800-160 MG ORAL TABLET 1 tab by mouth twice daily 2017 BACTRIM DS 800-160 MG ORAL TABLET 962366 TRIMETHOPRIM- SULFAMETHOXAZOLE Inactive BACTROBAN 2 % EXTERNAL OINTMENT Apply to affected area BID 05/18 BACTROBAN 2 % EXTERNAL OINTMENT 034222 MUPIROCIN Inactive CIPRO 500 MG ORAL TABLET 1 tablet by mouth twice daily CIPRO 500 MG ORAL TABLET 096289 CIPROFLOXACIN HCL Inactive CEFDINIR 300 MG ORAL CAPSULE by mouth twice a day CEFDINIR 300 MG ORAL CAPSULE 277217 CEFDINIR Inactive CLINDAMYCIN HCL 300 MG ORAL CAPSULE 1 po QID x 7 days CLINDAMYCIN HCL 300 MG ORAL CAPSULE 922784 CLINDAMYCIN HCL Inactive Advance Directives Directive Description [...] 6.2 % 4.3-6.0 cholesterol, serum 229 mg/dL 713-751 5842/07/24 triglyceride, serum, fasting 106 mg/dL 30-200 HDL cholesterol, serum 60 mg/dL 32-60 LDL cholesterol, serum 148 mg/dL 0-130 sodium, serum 139 mmol/L 045-610 5008/07/24 carbon dioxide, venous blood 34.8 mmol/L 21.0-32.0 [...] Panel - Chemistry cholesterol, serum 275 mg/dL 781-351 1020/11/07 triglyceride, serum, fasting 166 mg/dL 30-200 HDL cholesterol, serum 62 mg/dL 32-60 LDL cholesterol, serum 180 mg/dL 0-130 sodium, serum 141 mmol/L 096-659 7147/11/07 carbon dioxide, venous blood 26.3 mmol/L 21.0-32.0 [...] 0-19 Encounters Code Encounter Date Provider Facility CPT-15620 Level 3 Est. Patient 14:29:01 CDT Esa Jackson MD [facility] CPT-48070 Level 3 Est. Patient 14:06:16 CDT Andre Barreto MD [facility] CPT-22093 Level 3 Est. Patient 09:16:36 CDT David King [facility] CPT-77416 Level 3 Est. Patient 09:24:01 LABOR CREW SUPERVISOR David King [facility] CPT-04554 Level 3 Est. Patient 13:01:07 LABOR CREW SUPERVISOR Solitario Howe MD [facility] CPT-87051 Level 4 Est. Patient 10:26:48 LABOR CREW SUPERVISOR Andre Barreto MD [facility] CPT-40802 Level 4 Est. Patient 09:45:06 CDT Andre Barreto MD [facility] CPT-57107 Level 4 Est. Patient 11:53:39 LABOR CREW SUPERVISOR Andre Barreto MD [facility] CPT-64455 Level 4 Est. Patient 14:21:31 CDT Andre Barreto MD [facility] CPT-28314 Level 4 Est. Patient 15:24:17 CDT Andre Barreto MD [facility] CPT-65302 Level 3 Est. Patient 10:36:40 CDT Andre Barreto MD [facility] CPT-37280 Level 4 Est. Patient 11:27:43 CDT Andre Barreto MD [facility] CPT-47467 Level 3 Est. Patient 10:57:31 LABOR CREW SUPERVISOR Andre Barreto MD [facility] CPT-98772 Level 3 Est. Patient 13:53:13 LABOR CREW SUPERVISOR Andre Barreto MD [facility] CPT-72287 Level 3 Est. Patient 09:16:12 CDT Andre Barreto MD [facility] CPT-30674 Level 3 Est. Patient 14:50:35 CDT Andre Barreto MD [facility] Procedures Code Procedure Name Date Entry Date Standard Description CPT-49765 Postop F/U Visit 14:31:27 CDT CPT-07672 Postop F/U Visit 14:30:20 CDT CPT-83780 Sono pelvis coley bladder only - XRAY USE ONLY 15:07:39 CDT CPT-94595 First Vx - Ix admin for Medicare patients 13:56:44 LABOR CREW SUPERVISOR CPT-27859 Zostavax Subcutaneous Solution Reconstituted 36473 UNT/0.65ML 12/22 13:56:44 LABOR CREW SUPERVISOR CPT-G0009 Administration of Pneumococcal Vaccine 10:12:50 CDT CPT-14664 Pneumovax 23 Injection Injectable 25 MCG/0.5ML 10:12:50 CDT CPT-G0439 Subsequent Annual Wellness Exam 09:49:25 CDT CPT-00361 First Vx - Ix admin for Medicare patients 17:55:11 LABOR CREW SUPERVISOR CPT-97565 Fluzone High-Dose Intramuscular Suspension 17:55:11 LABOR CREW SUPERVISOR CPT-03032 Venipuncture Draw Fee 14:11:36 CDT CPT-27841 Lipid - LAB USE ONLY 14:11:36 CDT CPT-65105 CMP - LAB USE ONLY 14:11:36 CDT CPT-G0438 Initial Annual Wellness Exam 13:29:06 CDT CPT-G0009 Administration of Pneumococcal Vaccine 13:26:57 CDT CPT-42813 Prevnar 13 Intramuscular Suspension 13:26:56 CDT 08/19 CPT-94385 Bone Density - XRAY USE ONLY 09:30:16 CDT CPT-Cryo Cryotherapy 08:59:26 LABOR CREW SUPERVISOR CPT-Cryo Cryotherapy 08:46:02 CDT CPT-65649 Chest 2V Frontal and Lat 14:02:13 LABOR CREW SUPERVISOR
--- OUTSIDE RECORDS SUMMARY | 2018-03-16 20:03 | XMS REPORT | Clinical Summary ---
Author Author Admin, EDUARDO Organization [employer] Address Unknown Phone Unavailable Allergies, Adverse Reactions, [...] airway pressure rx V46.2 Active Pushpa Beverly PEER TUTOR Other dependence on machines, supplemental oxygen Osteopenia 733.90 Active Pushpa Beverly APRN Disorder of bone and cartilage, unspecified DYSPNEA ICD-786.09 Inactive Andre Barreto MD 2012 FATIGUE ICD-780.79 Inactive Andre Barreto MD 2012 DYSPNEA ICD-786.05 Inactive Andre Barreto MD 2012 Fever ICD-780.60 Inactive Andre Barreot MD 05/23 Actinic keratosis ICD-702.0 Inactive Andre Barreto MD Seborrheic keratosis ICD-702.19 Inactive Andre Barreto MD Dyshidrotic eczema, hands ICD-705.81 Inactive Andre Barreto MD Postmenopausal status ICD-V49.81 Inactive Andre Barreto MD Family history of osteoporosis ICD-V17.81 Inactive Andre Barreto MD Unsteady gait ICD-781.2 Inactive Andre Barreto MD Skin tag ICD-701.9 Inactive Andre Barreto MD 2014 Weakness, muscle ICD-728.87 Inactive Andre Barreto MD Medication List Medication Instructions Start Date Stop Date Generic Name NDC Status Provider Patient Instruction DETROL 2 MG ORAL TABS 1 po qd TOLTERODINE TARTRATE 81408183099 Active Andre Barreto MD Active NITROGLYCERIN 0.4 MG SL SUBL 1 SL q5min PRN Chest pain up to 3 doses NITROGLYCERIN 19513936547 Active Andre Barreto MD Active TOPROL XL 50 MG ORAL LB64F-MBL 1 po qd METOPROLOL SUCCINATE 58337121343 Active Andre Barreto MD Active PLAVIX 75 MG TABS 1 po qd CLOPIDOGREL BISULFATE 34194346056 Active Andre Barreto MD Active LASIX 20 MG TAB 1 po qd PRN Edema FUROSEMIDE 66116943659 Active Andre Barreto MD Active ATORVASTATIN CALCIUM 80 MG TABS 1 po qHS ATORVASTATIN CALCIUM 13947106984 Active Andre Barreto MD Active SYMBICORT 160-4.5 MCG/ACT AERO 2 puff BID BUDESONIDE- FORMOTEROL FUMARATE 89397191301 Active Andre Barreto MD Active PROAIR HFA 108 (90 BASE) MCG/ACT AERS 2 puffs four times a day as needed 2015 ALBUTEROL SULFATE 60953519445 Active Andre Barreto MD Active FLUOXETINE HCL 40 MG ORAL CAPS 1 po qd FLUOXETINE HCL 59520466465 Active Andre Barreto MD Active BENICAR HCT 40-25 MG TABS Take one by mouth daily OLMESARTAN MEDOXOMIL-HCTZ 60892694285 No Longer Active Andre Barreto MD Active LOSARTAN POTASSIUM-HCTZ 100-25 MG TABS 1 po qd LOSARTAN POTASSIUM-HCTZ 38926164870 Active Andre Barreto MD Active BETAMETHASONE DIPROPIONATE 0.05 % OINT Apply to affected areas BID for up to 2 weeks BETAMETHASONE DIPROPIONATE 80239511925 No Longer Active Andre Barreot MD Active ZOFRAN 4 MG TABS 1 po q6hr PRN Nausea ONDANSETRON HCL 87955022056 No Longer Active Andre Barreto MD Active CIPRO 500 MG TAB 1 tablet by mouth twice daily CIPROFLOXACIN HCL 13056940584 No Longer Active Andre Barreto MD Active SYMBICORT 160-4.5 MCG/ACT AERO 2 puffs inhaled bid BUDESONIDE- FORMOTEROL FUMARATE 93527649521 No Longer Active Andre Barreto MD Active DICLOFENAC SODIUM 75 MG TBEC 1 tablet by mouth twice daily DICLOFENAC SODIUM 44249258620 No Longer Active Andre Barreto MD Active PROZAC 40 MG CAPS 1 cap by mouth at bedtime FLUOXETINE HCL 45012008931 No Longer Active Andre Barreto MD Active HYDROCODONE-ACETAMINOPHEN 5-325 MG TABS 1 po q 6hr PRN Pain HYDROCODONE-ACETAMINOPHEN 14031052571 No Longer Active Andre Barreto MD Active TRAMADOL HCL 50 MG TABS 2 po q 6 hrs prn TRAMADOL HCL 30787768876 Active Andre Barreto MD Active AMBIEN 5 MG TABS 1 po a hs prn ZOLPIDEM TARTRATE 25422165965 Active Andre Barreto MD Active HYDROCODONE-ACETAMINOPHEN 5-325 MG TABS 1 po q 6hr PRN Pain HYDROCODONE-ACETAMINOPHEN 5-325 MG TABS 214762 HYDROCODONE-ACETAMINOPHEN Inactive PROZAC 40 MG CAPS 1 cap by mouth at bedtime PROZAC 40 MG CAPS 589576 FLUOXETINE HCL Inactive DICLOFENAC SODIUM 75 MG TBEC 1 tablet by mouth twice daily DICLOFENAC SODIUM 75 MG TBEC 134221 DICLOFENAC SODIUM Inactive SYMBICORT 160-4.5 MCG/ACT AERO 2 puffs inhaled bid SYMBICORT 160-4.5 MCG/ACT AERO BUDESONIDE-FORMOTEROL FUMARATE Inactive ZOFRAN 4 MG TABS 1 po q6hr PRN Nausea ZOFRAN 4 MG TABS 577103 ONDANSETRON HCL Inactive BETAMETHASONE DIPROPIONATE 0.05 % OINT Apply to affected areas BID for up to 2 weeks BETAMETHASONE DIPROPIONATE 0.05 % OINT 896780 BETAMETHASONE DIPROPIONATE Inactive BENICAR HCT 40-25 MG TABS Take one by mouth daily BENICAR HCT 40-25 MG TABS 244420 OLMESARTAN MEDOXOMIL-HCTZ Inactive CIPRO 500 MG TAB 1 tablet by mouth twice daily CIPRO 500 MG TAB 458385 CIPROFLOXACIN HCL Inactive Advance Directives Directive Description [...] ... - Chemistry sodium, serum 140 mmol/L 665-421 2259/06/28 carbon dioxide, venous blood 32.4 mmol/L 21.0-32.0 potassium, serum 4.0 mmol/L 3.5-5.2 chloride, serum 101 mmol/L 98-107 blood glucose 108 mg/dL 65-110 urea nitrogen, blood 20 mg/dL 7-18 creatinine, serum 0.98 mg/dL 0.55-1.30 alanine aminotransferase (SGPT), serum 44 U/L 12-78 aspartate aminotransferase (SGOT), serum 27 U/L 15-37 calcium, serum 9.4 mg/dL 8.5-10.1 bilirubin, serum, total 0.30 mg/dL 0.00-1.00 cholesterol, serum 264 mg/dL 674-093 6974/06/28 triglyceride, serum, fasting 146 mg/dL 30-200 HDL [...] Panel - Chemistry cholesterol, serum 152 mg/dL 074-286 2862/09/27 triglyceride, serum, fasting 85 mg/dL 30-200 HDL cholesterol, serum 59 mg/dL 32-96 LDL cholesterol, serum 76 mg/dL 0-130 sodium, serum 143 mmol/L 965-344 6114/09/27 carbon dioxide, venous blood 30.1 mmol/L 21.0-32.0 [...] 0.00-1.00 Encounters Code Encounter Date Provider Facility CPT-70153 Level 4 Est. Patient 11:53:39 MARKET RESEARCH ASSISTANT Andre Barreto MD [facility] CPT-20084 Level 4 Est. Patient 14:21:31 CDT Andre Barreto MD [facility] CPT-39809 Level 4 Est. Patient 15:24:17 CDT Andre Barreto MD [facility] CPT-16757 Level 3 Est. Patient 10:36:40 CDT Andre Barreto MD [facility] CPT-75474 Level 4 Est. Patient 11:27:43 CDT Andre Barreto MD [facility] CPT-94958 Level 3 Est. Patient 10:57:31 MARKET RESEARCH ASSISTANT Andre Barreto MD [facility] CPT-56347 Level 3 Est. Patient 13:53:13 MARKET RESEARCH ASSISTANT Andre Barreto MD [facility] CPT-29965 Level 3 Est. Patient 09:16:12 CDT Andre Barreot MD [facility] CPT-31365 Level 3 Est. Patient 14:50:35 CDT Andre Barreto MD [facility] Procedures Code Procedure Name Date Entry Date Standard Description CPT-74143 First Vx - Ix admin for Medicare patients 17:55:11 MARKET RESEARCH ASSISTANT CPT-15507 Fluzone High-Dose Intramuscular Suspension 17:55:11 MARKET RESEARCH ASSISTANT CPT-33461 Venipuncture Draw Fee 14:11:36 CDT CPT-68417 Lipid - LAB USE ONLY 14:11:36 CDT CPT-21008 CMP - LAB USE ONLY 14:11:36 CDT CPT-G0438 Initial Annual Wellness Exam 13:29:06 CDT CPT-G0009 Administration of Pneumococcal Vaccine 13:26:57 CDT CPT-27976 Prevnar 13 Intramuscular Suspension 13:26:56 CDT 08/19 CPT-71647 Bone Density - XRAY USE ONLY 09:30:16 CDT CPT-Cryo Cryotherapy 08:59:26 MARKET RESEARCH ASSISTANT CPT-Cryo Cryotherapy 08:46:02 CDT CPT-17175 Chest 2V Frontal and Lat 14:02:13 MARKET RESEARCH ASSISTANT
--- OUTSIDE RECORDS SUMMARY | 2018-03-16 20:03 | XMS REPORT | Clinical Summary ---
Author Author Admin, EDUARDO Organization [facility] Address Unknown Phone Unavailable Allergies, Adverse Reactions, Alerts Allergy Name Reaction Description Start Date Severity Status Provider SULFA Mild No Longer Active Jillina Frazell NATUROPATHIC ONCOLOGY PROVIDER PENICILLIN Mild No Longer Active Jillina Frazell NATUROPATHIC ONCOLOGY PROVIDER ZINC Mild No Longer Active Jillina Frazell NATUROPATHIC ONCOLOGY PROVIDER SULFA Critical No Longer Active Marcelle Yesi [...] Coronary atherosclerosis of unspecified type of vessel, cherokee or graft Obstructive sleep apnea 327.23 Active [...] airway pressure rx V46.2 Active Pushpa Hernandez NATUROPATHIC ONCOLOGY PROVIDER Other dependence on machines, supplemental oxygen Osteopenia 733.90 Active Pushpa Hernandez NATUROPATHIC ONCOLOGY PROVIDER Disorder of bone and cartilage, unspecified Obstructive sleep apnea 327.23 Active Andre Barreto MD Obstructive sleep apnea (adult) (pediatric) Acute exacerbation of chronic bronchitis 491.22 Inactive Solitario Howe MD Obstructive chronic bronchitis with acute bronchitis Sinusitis 473.9 Active David King NATUROPATHIC ONCOLOGY PROVIDER Unspecified sinusitis (chronic) Abscess, skin 682.9 Active [...] po QID x 7 days CLINDAMYCIN HCL 95828311309 Active Jillina Frazell NATUROPATHIC ONCOLOGY PROVIDER Active BACTRIM DS 800-160 MG ORAL TABLET 1 tab by mouth twice daily 2017 TRIMETHOPRIM-SULFAMETHOXAZOLE 29682100586 No Longer Active Jillina Frazell NATUROPATHIC ONCOLOGY PROVIDER Active BACTROBAN 2 % EXTERNAL OINTMENT Apply to affected area BID MUPIROCIN 26352336948 Active Jillina Frazell NATUROPATHIC ONCOLOGY PROVIDER Active GUAIFENESIN DM 400-20 MG ORAL TABLET 1 pill by mouth twice daily, if needed for cough DEXTROMETHORPHAN-GUAIFENESIN 53997168491 Active Jillina Frazell NATUROPATHIC ONCOLOGY PROVIDER Active CEFDINIR 300 MG ORAL CAPSULE by mouth twice a day CEFDINIR 16348812064 No Longer Active Jillina Frazell NATUROPATHIC ONCOLOGY PROVIDER Active BENZONATATE 200 MG ORAL CAPSULE 1 three times a day as needed for cough 03/27 BENZONATATE 33076796782 No Longer Active Luna Prabhakar Active ZITHROMAX Z-NEVAEH 250 MG ORAL TABLET 2 today and then 1 daily for 4 days 03/27 AZITHROMYCIN 99292438368 No Longer Active Luna Prabhakar Active PREDNISONE 20 MG ORAL TABLET 2 daily for 3 days then 1 daily for 3 days 03/27 PREDNISONE 24469465277 No Longer Active Luna Prabhakar Active ATORVASTATIN CALCIUM 40 MG ORAL TABLET 1 po qHS ATORVASTATIN CALCIUM 26088556769 Active Marcelle VERA Active CLOPIDOGREL BISULFATE 75 MG ORAL TABLET 1 po qd CLOPIDOGREL BISULFATE 71819195342 Active Andre Barreto MD Active FUROSEMIDE 20 MG ORAL TABLET 1 po qd PRN Edema FUROSEMIDE 70717651777 Active Andre Barreto MD Active PROAIR HFA 108 (90 Base) MCG/ACT INHALATION AEROSOL SOLUTION 2 puffs q4hr PRN Shortness of air/Wheezing ALBUTEROL SULFATE 92515392230 Active Andre Barerto MD Active ATORVASTATIN CALCIUM 80 MG ORAL TABLET 1 po qHS ATORVASTATIN CALCIUM 58072932431 No Longer Active Andre Barreto MD Active AMBIEN 5 MG ORAL TABLET 1 po qHS PRN Insomnia ZOLPIDEM TARTRATE 02371518215 Active Andre Barreto MD Active DETROL 2 MG ORAL TABLET 1 po qd TOLTERODINE TARTRATE 08054742793 Active Andre Barreto MD Active NITROGLYCERIN 0.4 MG SUBLINGUAL TABLET SUBLINGUAL 1 SL q5min PRN Chest pain up to 3 doses NITROGLYCERIN 88840529171 Active Andre Barreto MD Active TOPROL XL 50 MG ORAL TABLET EXTENDED RELEASE 24 HOUR 1 po qd METOPROLOL SUCCINATE 82761430108 Active Andre Barreto MD Active SYMBICORT 160-4.5 MCG/ACT INHALATION AEROSOL 2 puff BID BUDESONIDE-FORMOTEROL FUMARATE 71580411900 Active Cayla Flanagan Isabella Active FLUOXETINE HCL 40 MG ORAL CAPSULE 1 po qd FLUOXETINE HCL 96919487531 Active Andre Barreto MD Active BENICAR HCT 40-25 MG ORAL TABLET Take one by mouth daily OLMESARTAN MEDOXOMIL-HCTZ 37070711516 No Longer Active Andre Barreto MD Active LOSARTAN POTASSIUM-HCTZ 100-25 MG ORAL TABLET 1 po qd LOSARTAN POTASSIUM-HCTZ 12651801012 Active Andre Barreto MD Active BETAMETHASONE DIPROPIONATE 0.05 % EXTERNAL OINTMENT Apply to affected areas BID for up to 2 weeks BETAMETHASONE DIPROPIONATE 85829268077 No Longer Active Andre Barreto MD Active ZOFRAN 4 MG ORAL TABLET 1 po q6hr PRN Nausea ONDANSETRON HCL 78533818612 No Longer Active Andre Barreto MD Active CIPRO 500 MG ORAL TABLET 1 tablet by mouth twice daily CIPROFLOXACIN HCL 89097381099 No Longer Active Andre Barreto MD Active SYMBICORT 160-4.5 MCG/ACT INHALATION AEROSOL 2 puffs inhaled bid BUDESONIDE-FORMOTEROL FUMARATE 65056046965 No Longer Active Andre Barreto MD Active DICLOFENAC SODIUM 75 MG ORAL TABLET DELAYED RELEASE 1 tablet by mouth twice daily DICLOFENAC SODIUM 71450412481 No Longer Active Andre Barreto MD Active PROZAC 40 MG ORAL CAPSULE 1 cap by mouth at bedtime FLUOXETINE HCL 25470861645 No Longer Active Andre Barreto MD Active HYDROCODONE-ACETAMINOPHEN 5-325 MG ORAL TABLET 1 po q 6hr PRN Pain HYDROCODONE-ACETAMINOPHEN 83341871169 No Longer Active Andre Barreto MD Active TRAMADOL HCL 50 MG ORAL TABLET 2 po q 6 hrs prn TRAMADOL HCL 99911185518 Active Andre Barreto MD Active HYDROCODONE-ACETAMINOPHEN 5-325 MG ORAL TABLET 1 po q 6hr PRN Pain HYDROCODONE-ACETAMINOPHEN 5-325 MG ORAL TABLET 194008 HYDROCODONE- ACETAMINOPHEN Inactive PROZAC 40 MG ORAL CAPSULE 1 cap by mouth at bedtime PROZAC 40 MG ORAL CAPSULE 171796 FLUOXETINE HCL Inactive DICLOFENAC SODIUM 75 MG ORAL TABLET DELAYED RELEASE 1 tablet by mouth twice daily DICLOFENAC SODIUM 75 MG ORAL TABLET DELAYED RELEASE 981591 DICLOFENAC SODIUM Inactive SYMBICORT 160-4.5 MCG/ACT INHALATION AEROSOL 2 puffs inhaled bid SYMBICORT 160-4.5 MCG/ACT INHALATION AEROSOL BUDESONIDE-FORMOTEROL FUMARATE Inactive ZOFRAN 4 MG ORAL TABLET 1 po q6hr PRN Nausea ZOFRAN 4 MG ORAL TABLET 705510 ONDANSETRON HCL Inactive BETAMETHASONE DIPROPIONATE 0.05 % EXTERNAL OINTMENT Apply to affected areas BID for up to 2 weeks BETAMETHASONE DIPROPIONATE 0.05 % EXTERNAL OINTMENT 445613 BETAMETHASONE DIPROPIONATE Inactive BENICAR HCT 40-25 MG ORAL TABLET Take one by mouth daily BENICAR HCT 40-25 MG ORAL TABLET 213399 OLMESARTAN MEDOXOMIL-HCTZ Inactive ATORVASTATIN CALCIUM 80 MG ORAL TABLET 1 po qHS ATORVASTATIN CALCIUM 80 MG ORAL TABLET 171996 ATORVASTATIN CALCIUM Inactive PREDNISONE 20 MG ORAL TABLET 2 daily for 3 days then 1 daily for 3 days 03/27 PREDNISONE 20 MG ORAL TABLET 580010 PREDNISONE Inactive ZITHROMAX Z-NEVAEH 250 MG ORAL TABLET 2 today and then 1 daily for 4 days 03/27 ZITHROMAX Z-NEVAEH 250 MG ORAL TABLET 165772 AZITHROMYCIN Inactive BENZONATATE 200 MG ORAL CAPSULE 1 three times a day as needed for cough 03/27 BENZONATATE 200 MG ORAL CAPSULE 897504 BENZONATATE Inactive BACTRIM DS 800-160 MG ORAL TABLET 1 tab by mouth twice daily 2017 BACTRIM DS 800-160 MG ORAL TABLET 426647 TRIMETHOPRIM- SULFAMETHOXAZOLE Inactive CIPRO 500 MG ORAL TABLET 1 tablet by mouth twice daily CIPRO 500 MG ORAL TABLET 993371 CIPROFLOXACIN HCL Inactive CEFDINIR 300 MG ORAL CAPSULE by mouth twice a day CEFDINIR 300 MG ORAL CAPSULE 815597 CEFDINIR Inactive Advance Directives Directive Description Start [...] 6.2 % 4.3-6.0 cholesterol, serum 229 mg/dL 622-187 9597/07/24 triglyceride, serum, fasting 106 mg/dL 30-200 HDL cholesterol, serum 60 mg/dL 32-60 LDL cholesterol, serum 148 mg/dL 0-130 sodium, serum 139 mmol/L 937-825 7113/07/24 carbon dioxide, venous blood 34.8 mmol/L 21.0-32.0 [...] Panel - Chemistry cholesterol, serum 275 mg/dL 132-202 1670/11/07 triglyceride, serum, fasting 166 mg/dL 30-200 HDL cholesterol, serum 62 mg/dL 32-60 LDL cholesterol, serum 180 mg/dL 0-130 sodium, serum 141 mmol/L 578-155 5610/11/07 carbon dioxide, venous blood 26.3 mmol/L 21.0-32.0 [...] 0-19 Encounters Code Encounter Date Provider Facility CPT-90375 Level 3 Est. Patient 09:16:36 CDT David King [facility] [place] CPT-85416 Level 3 Est. Patient 09:24:01 METAL CRAFTS TEACHER David King [facility] [place] [facility] [place] CPT-53411 Level 3 Est. Patient 13:01:07 METAL CRAFTS TEACHER Solitario Howe MD [facility] CPT-21836 Level 4 Est. Patient 10:26:48 METAL CRAFTS TEACHER Andre Barreto MD [facility] CPT-36621 Level 4 Est. Patient 09:45:06 CDT Andre Barreto MD [facility] CPT-50740 Level 4 Est. Patient 11:53:39 METAL CRAFTS TEACHER Andre Barreto MD [facility] CPT-30979 Level 4 Est. Patient 14:21:31 CDT Andre Barreto MD [facility] CPT-42931 Level 4 Est. Patient 15:24:17 CDT Andre Barreto MD [facility] CPT-71590 Level 3 Est. Patient 10:36:40 CDT Andre Barreto MD [facility] CPT-29872 Level 4 Est. Patient 11:27:43 CDT Andre Barreto MD [facility] CPT-78686 Level 3 Est. Patient 10:57:31 METAL CRAFTS TEACHER Andre Barreto MD [facility] CPT-55760 Level 3 Est. Patient 13:53:13 METAL CRAFTS TEACHER Andre Barreto MD [facility] CPT-71931 Level 3 Est. Patient 09:16:12 CDT Andre Barreto MD [facility] CPT-05974 Level 3 Est. Patient 14:50:35 CDT Andre Barreto MD [facility] Procedures Code Procedure Name Date Entry Date Standard Description CPT-98827 First Vx - Ix admin for Medicare patients 13:56:44 METAL CRAFTS TEACHER CPT-25180 Zostavax Subcutaneous Solution Reconstituted 50952 UNT/0.65ML 12/22 13:56:44 METAL CRAFTS TEACHER CPT-G0009 Administration of Pneumococcal Vaccine 10:12:50 CDT CPT-56082 Pneumovax 23 Injection Injectable 25 MCG/0.5ML 10:12:50 CDT CPT-G0439 Subsequent Annual Wellness Exam 09:49:25 CDT CPT-47398 First Vx - Ix admin for Medicare patients 17:55:11 METAL CRAFTS TEACHER CPT-94831 Fluzone High-Dose Intramuscular Suspension 17:55:11 METAL CRAFTS TEACHER CPT-99757 Venipuncture Draw Fee 14:11:36 CDT CPT-41301 Lipid - LAB USE ONLY 14:11:36 CDT CPT-38770 CMP - LAB USE ONLY 14:11:36 CDT CPT-G0438 Initial Annual Wellness Exam 13:29:06 CDT CPT-G0009 Administration of Pneumococcal Vaccine 13:26:57 CDT CPT-23157 Prevnar 13 Intramuscular Suspension 13:26:56 CDT 08/19 CPT-66790 Bone Density - XRAY USE ONLY 09:30:16 CDT CPT-Cryo Cryotherapy 08:59:26 METAL CRAFTS TEACHER CPT-Cryo Cryotherapy 08:46:02 CDT CPT-56888 Chest 2V Frontal and Lat 14:02:13 METAL CRAFTS TEACHER
--- OUTSIDE RECORDS SUMMARY | 2018-03-16 20:06 | XMS REPORT | Clinical Summary ---
Author Author Admin, [employer] Organization [facility] Address Unknown Phone Unavailable Allergies, Adverse Reactions, Alerts Allergy Name Reaction Description Start Date Severity Status Provider SULFA Mild No Longer Active Jillina Frazell VALIDATION SOFTWARE FACILITATOR PENICILLIN Mild No Longer Active Jillina Frazell VALIDATION SOFTWARE FACILITATOR ZINC Mild No Longer Active Jillina Frazell VALIDATION SOFTWARE FACILITATOR SULFA Critical No Longer Active Marcelle Yesi [...] Coronary atherosclerosis of unspecified type of vessel, gamb[place] or graft Obstructive sleep apnea 327.23 Active [...] 1 po q8hr PRN Dizziness MECLIZINE HCL 82633944270 Active Andre Barreto MD Active MELOXICAM 15 MG ORAL TABLET 1 po qd PRN Pain MELOXICAM 84975627903 Active Andre Barreto MD Active ATORVASTATIN CALCIUM 40 MG ORAL TABLET 1 po qHS ATORVASTATIN CALCIUM 58729889797 No Longer Active Andre Barreto MD Active ATORVASTATIN CALCIUM 20 MG ORAL TABLET 1 po MWF ATORVASTATIN CALCIUM 96063211836 Active Andre Barreto MD Active GUAIFENESIN DM 400-20 MG ORAL TABLET 1 pill by mouth twice daily, if needed for cough DEXTROMETHORPHAN-GUAIFENESIN 48267399209 No Longer Active Andre Barreto MD Active BACTROBAN 2 % EXTERNAL OINTMENT Apply to affected area BID 05/18 MUPIROCIN 99421800569 No Longer Active Moira Price MA Active CLINDAMYCIN HCL 300 MG ORAL CAPSULE 1 po QID x 7 days CLINDAMYCIN HCL 31339144711 No Longer Active David King APRN Active BACTRIM DS 800-160 MG ORAL TABLET 1 tab by mouth twice daily 2017 TRIMETHOPRIM-SULFAMETHOXAZOLE 84755447729 No Longer Active David King APRN Active CEFDINIR 300 MG ORAL CAPSULE by mouth twice a day CEFDINIR 09835207086 No Longer Active David King VALIDATION SOFTWARE FACILITATOR Active BENZONATATE 200 MG ORAL CAPSULE 1 three times a day as needed for cough 03/27 BENZONATATE 04701555621 No Longer Active Luna Prabhakar Active ZITHROMAX Z-NEVAEH 250 MG ORAL TABLET 2 today and then 1 daily for 4 days 03/27 AZITHROMYCIN 03323466527 No Longer Active Luna Prabhakar Active PREDNISONE 20 MG ORAL TABLET 2 daily for 3 days then 1 daily for 3 days 03/27 PREDNISONE 37430801978 No Longer Active Luna Prabhakar Active CLOPIDOGREL BISULFATE 75 MG ORAL TABLET 1 po qd CLOPIDOGREL BISULFATE 32535000495 Active Andre Barreto MD Active FUROSEMIDE 20 MG ORAL TABLET 1 po qd PRN Edema FUROSEMIDE 40148113208 Active Andre Barreto MD Active PROAIR HFA 108 (90 Base) MCG/ACT INHALATION AEROSOL SOLUTION 2 puffs q4hr PRN Shortness of air/Wheezing ALBUTEROL SULFATE 31158162963 Active Andre Barreto MD Active ATORVASTATIN CALCIUM 80 MG ORAL TABLET 1 po qHS ATORVASTATIN CALCIUM 01529005613 No Longer Active Andre Barreto MD Active AMBIEN 5 MG ORAL TABLET 1 po qHS PRN Insomnia ZOLPIDEM TARTRATE 79863206773 Active Andre Barreto MD Active DETROL 2 MG ORAL TABLET 1 po qd TOLTERODINE TARTRATE 06813818622 Active Andre Barreto MD Active NITROGLYCERIN 0.4 MG SUBLINGUAL TABLET SUBLINGUAL 1 SL q5min PRN Chest pain up to 3 doses NITROGLYCERIN 83445601684 Active Andre Barreto MD Active TOPROL XL 50 MG ORAL TABLET EXTENDED RELEASE 24 HOUR 1 po qd METOPROLOL SUCCINATE 85084568142 Active Andre Barreto MD Active SYMBICORT 160-4.5 MCG/ACT INHALATION AEROSOL 2 puff BID BUDESONIDE-FORMOTEROL FUMARATE 82166122466 Active Cayla VERA Active FLUOXETINE HCL 40 MG ORAL CAPSULE 1 po qd FLUOXETINE HCL 28727750730 Active Andre Barreto MD Active BENICAR HCT 40-25 MG ORAL TABLET Take one by mouth daily OLMESARTAN MEDOXOMIL-HCTZ 19946993404 No Longer Active Andre Barreto MD Active LOSARTAN POTASSIUM-HCTZ 100-25 MG ORAL TABLET 1 po qd LOSARTAN POTASSIUM-HCTZ 00068590497 Active Andre Barreto MD Active BETAMETHASONE DIPROPIONATE 0.05 % EXTERNAL OINTMENT Apply to affected areas BID for up to 2 weeks BETAMETHASONE DIPROPIONATE 63427209432 No Longer Active Andre Barreto MD Active ZOFRAN 4 MG ORAL TABLET 1 po q6hr PRN Nausea ONDANSETRON HCL 38885372426 No Longer Active Andre Barreto MD Active CIPRO 500 MG ORAL TABLET 1 tablet by mouth twice daily CIPROFLOXACIN HCL 79560355535 No Longer Active Andre Barreto MD Active SYMBICORT 160-4.5 MCG/ACT INHALATION AEROSOL 2 puffs inhaled bid BUDESONIDE-FORMOTEROL FUMARATE 70675503569 No Longer Active Andre Barreto MD Active DICLOFENAC SODIUM 75 MG ORAL TABLET DELAYED RELEASE 1 tablet by mouth twice daily DICLOFENAC SODIUM 49180715655 No Longer Active Andre Barreto MD Active PROZAC 40 MG ORAL CAPSULE 1 cap by mouth at bedtime FLUOXETINE HCL 39319194576 No Longer Active Andre Barreto MD Active HYDROCODONE-ACETAMINOPHEN 5-325 MG ORAL TABLET 1 po q 6hr PRN Pain HYDROCODONE-ACETAMINOPHEN 92947192847 No Longer Active Andre Barreto MD Active TRAMADOL HCL 50 MG ORAL TABLET 2 po q 6 hrs prn TRAMADOL HCL 15222905647 Active Andre Barreto MD Active HYDROCODONE-ACETAMINOPHEN 5-325 MG ORAL TABLET 1 po q 6hr PRN Pain HYDROCODONE-ACETAMINOPHEN 5-325 MG ORAL TABLET 479339 HYDROCODONE- ACETAMINOPHEN Inactive PROZAC 40 MG ORAL CAPSULE 1 cap by mouth at bedtime PROZAC 40 MG ORAL CAPSULE 148554 FLUOXETINE HCL Inactive DICLOFENAC SODIUM 75 MG ORAL TABLET DELAYED RELEASE 1 tablet by mouth twice daily DICLOFENAC SODIUM 75 MG ORAL TABLET DELAYED RELEASE 818122 DICLOFENAC SODIUM Inactive SYMBICORT 160-4.5 MCG/ACT INHALATION AEROSOL 2 puffs inhaled bid SYMBICORT 160-4.5 MCG/ACT INHALATION AEROSOL BUDESONIDE-FORMOTEROL FUMARATE Inactive ZOFRAN 4 MG ORAL TABLET 1 po q6hr PRN Nausea ZOFRAN 4 MG ORAL TABLET 208752 ONDANSETRON HCL Inactive BETAMETHASONE DIPROPIONATE 0.05 % EXTERNAL OINTMENT Apply to affected areas BID for up to 2 weeks BETAMETHASONE DIPROPIONATE 0.05 % EXTERNAL OINTMENT 651175 BETAMETHASONE DIPROPIONATE Inactive BENICAR HCT 40-25 MG ORAL TABLET Take one by mouth daily BENICAR HCT 40-25 MG ORAL TABLET 182189 OLMESARTAN MEDOXOMIL-HCTZ Inactive ATORVASTATIN CALCIUM 80 MG ORAL TABLET 1 po qHS ATORVASTATIN CALCIUM 80 MG ORAL TABLET 680706 ATORVASTATIN CALCIUM Inactive PREDNISONE 20 MG ORAL TABLET 2 daily for 3 days then 1 daily for 3 days 03/27 PREDNISONE 20 MG ORAL TABLET 668199 PREDNISONE Inactive ZITHROMAX Z-NEVAEH 250 MG ORAL TABLET 2 today and then 1 daily for 4 days 03/27 ZITHROMAX Z-NEVAEH 250 MG ORAL TABLET 849349 AZITHROMYCIN Inactive BENZONATATE 200 MG ORAL CAPSULE 1 three times a day as needed for cough 03/27 BENZONATATE 200 MG ORAL CAPSULE 828716 BENZONATATE Inactive BACTRIM DS 800-160 MG ORAL TABLET 1 tab by mouth twice daily 2017 BACTRIM DS 800-160 MG ORAL TABLET 097683 TRIMETHOPRIM- SULFAMETHOXAZOLE Inactive BACTROBAN 2 % EXTERNAL OINTMENT Apply to affected area BID 05/18 BACTROBAN 2 % EXTERNAL OINTMENT 822109 MUPIROCIN Inactive GUAIFENESIN DM 400-20 MG ORAL TABLET 1 pill by mouth twice daily, if needed for cough GUAIFENESIN DM 400-20 MG ORAL TABLET 9602223 DEXTROMETHORPHAN-GUAIFENESIN Inactive ATORVASTATIN CALCIUM 40 MG ORAL TABLET 1 po qHS ATORVASTATIN CALCIUM 40 MG ORAL TABLET 456345 ATORVASTATIN CALCIUM Inactive CIPRO 500 MG ORAL TABLET 1 tablet by mouth twice daily CIPRO 500 MG ORAL TABLET 584309 CIPROFLOXACIN HCL Inactive CEFDINIR 300 MG ORAL CAPSULE by mouth twice a day CEFDINIR 300 MG ORAL CAPSULE 115130 CEFDINIR Inactive CLINDAMYCIN HCL 300 MG ORAL CAPSULE 1 po QID x 7 days CLINDAMYCIN HCL 300 MG ORAL CAPSULE 456546 CLINDAMYCIN HCL Inactive Advance Directives Directive Description [...] Measured blood pressure, diastolic 85 mm[Hg] BP pta blood pressure, systolic 162 mm[Hg] BP sys [...] % 11.6-14.8 platelet count 263 10^3/MM^3 10*3/mm3 855-028 7214/07/24 mean corpuscular volume, RBC 92 fL 80-97 hematocrit, blood 41.5 % 37.0-47.0 hemoglobin, blood 13.5 g/dL 12.0-16.0 erythrocyte (RBC) count 4.49 10^6/MM^3 10*6/mm3 3.80-5.80 leukocyte count, blood 6.7 10^3/MM^3 10*3/mm3 4.6-10.2 Lab Report: CBC - Lab microalbumin, urine 30 mg/L 0-19 Lab Report: Comp. Metabolic Panel - Chemistry sodium, serum 139 mmol/L 142-869 9326/05/04 carbon dioxide, venous blood 28.7 mmol/L 21.0-32.0 [...] 6.2 % 4.3-6.0 cholesterol, serum 302 mg/dL 146-771 1158/05/04 triglyceride, serum, fasting 145 mg/dL 30-200 HDL cholesterol, serum 61 mg/dL 32-60 LDL cholesterol, serum 212 mg/dL 0-130 Lab Report: HGBA1C, Lipid Panel, Comp. Metabolic Panel - Chemistry hemoglobin A1C, blood, as % of total hemoglobin 6.2 % 4.3-6.0 cholesterol, serum 229 mg/dL 326-877 8167/07/24 triglyceride, serum, fasting 106 mg/dL 30-200 HDL cholesterol, serum 60 mg/dL 32-60 LDL cholesterol, serum 148 mg/dL 0-130 sodium, serum 139 mmol/L 812-554 7440/07/24 carbon dioxide, venous blood 34.8 mmol/L 21.0-32.0 [...] Panel - Chemistry cholesterol, serum 275 mg/dL 389-854 0285/11/07 triglyceride, serum, fasting 166 mg/dL 30-200 HDL cholesterol, serum 62 mg/dL 32-60 LDL cholesterol, serum 180 mg/dL 0-130 sodium, serum 141 mmol/L 042-031 1892/11/07 carbon dioxide, venous blood 26.3 mmol/L 21.0-32.0 [...] 0-19 Encounters Code Encounter Date Provider Facility CPT-94407 Level 4 Est. Patient 10:07:14 CDT Andre Barreto MD [facility] CPT-76439 Level 3 Est. Patient 14:29:01 CDT Esa Jackson MD [facility] CPT-64801 Level 3 Est. Patient 14:06:16 CDT Andre Barreto MD [facility] CPT-10982 Level 3 Est. Patient 09:16:36 CDT David King [facility] CPT-94293 Level 3 Est. Patient 09:24:01 SALESMAN/OWNER David King [facility] CPT-97781 Level 3 Est. Patient 13:01:07 SALESMAN/OWNER Solitario Howe MD [facility] CPT-88752 Level 4 Est. Patient 10:26:48 SALESMAN/OWNER Andre Barreto MD [facility] CPT-23701 Level 4 Est. Patient 09:45:06 CDT Andre Barreto MD [facility] CPT-62717 Level 4 Est. Patient 11:53:39 SALESMAN/OWNER Andre Barreto MD [facility] CPT-47456 Level 4 Est. Patient 14:21:31 CDT Andre Barreto MD [facility] CPT-87003 Level 4 Est. Patient 15:24:17 CDT Andre Barreto MD [facility] CPT-44673 Level 3 Est. Patient 10:36:40 CDT Andre Barreto MD [facility] CPT-63135 Level 4 Est. Patient 11:27:43 CDT Andre Barreto MD [facility] CPT-98606 Level 3 Est. Patient 10:57:31 SALESMAN/OWNER Andre Barreto MD [facility] CPT-65527 Level 3 Est. Patient 13:53:13 SALESMAN/OWNER Andre Barreto MD [facility] CPT-09472 Level 3 Est. Patient 09:16:12 CDT Andre Barreto MD [facility] CPT-23275 Level 3 Est. Patient 14:50:35 CDT Andre Barreto MD [facility] Procedures Code Procedure Name Date Entry Date Standard Description CPT-31541 Postop F/U Visit 14:31:27 CDT CPT-71353 Postop F/U Visit 14:30:20 CDT CPT-18873 Sono pelvis coley bladder only - XRAY USE ONLY 15:07:39 CDT CPT-10148 First Vx - Ix admin for Medicare patients 13:56:44 SALESMAN/OWNER CPT-26068 Zostavax Subcutaneous Solution Reconstituted 75059 UNT/0.65ML 12/22 13:56:44 SALESMAN/OWNER CPT-G0009 Administration of Pneumococcal Vaccine 10:12:50 CDT CPT-16251 Pneumovax 23 Injection Injectable 25 MCG/0.5ML 10:12:50 CDT CPT-G0439 Subsequent Annual Wellness Exam 09:49:25 CDT CPT-10606 First Vx - Ix admin for Medicare patients 17:55:11 SALESMAN/OWNER CPT-96383 Fluzone High-Dose Intramuscular Suspension 17:55:11 SALESMAN/OWNER CPT-24832 Venipuncture Draw Fee 14:11:36 CDT CPT-97879 Lipid - LAB USE ONLY 14:11:36 CDT CPT-84117 CMP - LAB USE ONLY 14:11:36 CDT CPT-G0438 Initial Annual Wellness Exam 13:29:06 CDT CPT-G0009 Administration of Pneumococcal Vaccine 13:26:57 CDT CPT-11763 Prevnar 13 Intramuscular Suspension 13:26:56 CDT 08/19 CPT-06181 Bone Density - XRAY USE ONLY 09:30:16 CDT CPT-Cryo Cryotherapy 08:59:26 SALESMAN/OWNER CPT-Cryo Cryotherapy 08:46:02 CDT CPT-15765 Chest 2V Frontal and Lat 14:02:13 SALESMAN/OWNER
--- OUTSIDE RECORDS SUMMARY | 2018-03-16 20:08 | XMS REPORT | Clinical Summary ---
Author Author Admin, E Organization [facility] Address Unknown Phone Unavailable Allergies, Adverse Reactions, [...] type of vessel, [place] or graft Obstructive sleep apnea 327.23 Active [...] skin Elevated blood sugar 790.29 Inactive Marcelle eKy RMA Other abnormal glucose Glucose intolerance 271.3 [...] Andre Barreto MD Seborrheic keratosis ICD-702.19 Inactive Ander Barreto MD Skin tag ICD-701.9 Inactive Andre [...] MG TABS 1 po qHS ATORVASTATIN CALCIUM 01477699875 No Longer Active Andre Barreto MD Active AMBIEN 5 MG TABS 1 po qHS PRN Insomnia ZOLPIDEM TARTRATE 01270997155 Active Andre Barreto MD Active DETROL 2 MG ORAL TABS 1 po qd TOLTERODINE TARTRATE 01846252011 Active Andre Barreto MD Active NITROGLYCERIN 0.4 MG SL SUBL 1 SL q5min PRN Chest pain up to 3 doses NITROGLYCERIN 21381231790 Active Andre Barreto MD Active TOPROL XL 50 MG ORAL [id number] 1 po qd METOPROLOL SUCCINATE 06958883896 Active Andre Barreto MD Active PLAVIX 75 MG TABS 1 po qd CLOPIDOGREL BISULFATE 00256413411 Active Andre Barreto MD Active LASIX 20 MG TAB 1 po qd PRN Edema FUROSEMIDE 51915853463 Active Andre Barreto MD Active SYMBICORT 160-4.5 MCG/ACT AERO 2 puff BID BUDESONIDE- FORMOTEROL FUMARATE 14120088853 Active Cayla VERA Active PROAIR HFA 108 (90 BASE) MCG/ACT AERS 2 puffs four times a day as needed 2015 ALBUTEROL SULFATE 97629764874 Active Andre Barreto MD Active FLUOXETINE HCL 40 MG ORAL CAPS 1 po qd FLUOXETINE HCL 32095370628 Active Andre Barreto MD Active BENICAR HCT 40-25 MG TABS Take one by mouth daily OLMESARTAN MEDOXOMIL-HCTZ 04399567745 No Longer Active Andre Barreto MD Active LOSARTAN POTASSIUM-HCTZ 100-25 MG TABS 1 po qd LOSARTAN POTASSIUM-HCTZ 45617350859 Active Andre Barreto MD Active BETAMETHASONE DIPROPIONATE 0.05 % OINT Apply to affected areas BID for up to 2 weeks BETAMETHASONE DIPROPIONATE 25383087533 No Longer Active Andre Barreto MD Active ZOFRAN 4 MG TABS 1 po q6hr PRN Nausea ONDANSETRON HCL 46159794609 No Longer Active Ander Barreto MD Active CIPRO 500 MG TAB 1 tablet by mouth twice daily CIPROFLOXACIN HCL 37106990530 No Longer Active Andre Barreto MD Active SYMBICORT 160-4.5 MCG/ACT AERO 2 puffs inhaled bid BUDESONIDE- FORMOTEROL FUMARATE 95929048933 No Longer Active Andre Barreto MD Active DICLOFENAC SODIUM 75 MG TBEC 1 tablet by mouth twice daily DICLOFENAC SODIUM 00105459973 No Longer Active Andre Barreto MD Active PROZAC 40 MG CAPS 1 cap by mouth at bedtime FLUOXETINE HCL 90450233735 No Longer Active Andre Barreto MD Active HYDROCODONE-ACETAMINOPHEN 5-325 MG TABS 1 po q 6hr PRN Pain HYDROCODONE-ACETAMINOPHEN 87750242559 No Longer Active Andre Barreto MD Active TRAMADOL HCL 50 MG TABS 2 po q 6 hrs prn TRAMADOL HCL 44163523967 Active Andre Barreto MD Active HYDROCODONE-ACETAMINOPHEN 5-325 MG TABS 1 po q 6hr PRN Pain HYDROCODONE-ACETAMINOPHEN 5-325 MG TABS 313702 HYDROCODONE-ACETAMINOPHEN Inactive PROZAC 40 MG CAPS 1 cap by mouth at bedtime PROZAC 40 MG CAPS 670136 FLUOXETINE HCL Inactive DICLOFENAC SODIUM 75 MG TBEC 1 tablet by mouth twice daily DICLOFENAC SODIUM 75 MG TBEC 171153 DICLOFENAC SODIUM Inactive SYMBICORT 160-4.5 MCG/ACT AERO 2 puffs inhaled bid SYMBICORT 160-4.5 MCG/ACT AERO BUDESONIDE-FORMOTEROL FUMARATE Inactive ZOFRAN 4 MG TABS 1 po q6hr PRN Nausea ZOFRAN 4 MG TABS 398537 ONDANSETRON HCL Inactive BETAMETHASONE DIPROPIONATE 0.05 % OINT Apply to affected areas BID for up to 2 weeks BETAMETHASONE DIPROPIONATE 0.05 % OINT 812858 BETAMETHASONE DIPROPIONATE Inactive BENICAR HCT 40-25 MG TABS Take one by mouth daily BENICAR HCT 40-25 MG TABS 122696 OLMESARTAN MEDOXOMIL-HCTZ Inactive ATORVASTATIN CALCIUM 80 MG TABS 1 po qHS ATORVASTATIN CALCIUM 80 MG TABS 385713 ATORVASTATIN CALCIUM Inactive CIPRO 500 MG TAB 1 tablet by mouth twice daily CIPRO 500 MG TAB 367690 CIPROFLOXACIN HCL Inactive Advance Directives Directive Description [...] Panel - Chemistry sodium, serum 143 mmol/L 849-488 0380/09/27 carbon dioxide, venous blood 30.1 mmol/L 21.0-32.0 potassium, serum 3.9 mmol/L 3.5-5.2 chloride, serum 107 mmol/L 98-107 blood glucose 114 mg/dL 65-110 urea nitrogen, blood 14 mg/dL 7-18 creatinine, serum 0.79 mg/dL 0.55-1.30 alanine aminotransferase (SGPT), serum 44 U/L 12-78 aspartate aminotransferase (SGOT), serum 25 U/L 15-37 calcium, serum 8.5 mg/dL 8.5-10.1 bilirubin, serum, total 0.30 mg/dL 0.00-1.00 cholesterol, serum 152 mg/dL 937-601 6614/09/27 triglyceride, serum, fasting 85 mg/dL 30-200 HDL cholesterol, serum 59 mg/dL 32-96 LDL cholesterol, serum 76 mg/dL 0-130 Lab Report: HGBA1C, Lipid Panel, Comp. Metabolic Panel - Chemistry hemoglobin A1C, blood, as % of total hemoglobin 6.2 % 4.3-6.0 cholesterol, serum 229 mg/dL 950-363 0246/07/24 triglyceride, serum, fasting 106 mg/dL 30-200 HDL cholesterol, serum 60 mg/dL 32-60 LDL cholesterol, serum 148 mg/dL 0-130 sodium, serum 139 mmol/L 380-890 6160/07/24 carbon dioxide, venous blood 34.8 mmol/L 21.0-32.0 [...] 0.00-1.00 Encounters Code Encounter Date Provider Facility CPT-95060 Level 4 Est. Patient 09:45:06 CDT Andre Barreto MD [facility] CPT-88684 Level 4 Est. Patient 11:53:39 CNC MACHINE SETTER Andre Barreto MD [facility] CPT-61146 Level 4 Est. Patient 14:21:31 CDT Andre Barreto MD [facility] CPT-68896 Level 4 Est. Patient 15:24:17 CDT Andre Barreto MD [facility] CPT-86174 Level 3 Est. Patient 10:36:40 CDT Andre Barreto MD [facility] CPT-59690 Level 4 Est. Patient 11:27:43 CDT Andre Barreto MD [facility] CPT-61553 Level 3 Est. Patient 10:57:31 CNC MACHINE SETTER Andre Barreto MD [facility] CPT-87119 Level 3 Est. Patient 13:53:13 CNC MACHINE SETTER Andre Barreto MD [facility] CPT-13352 Level 3 Est. Patient 09:16:12 CDT Andre Barreto MD [facility] CPT-72935 Level 3 Est. Patient 14:50:35 CDT Andre Barreto MD [facility] Procedures Code Procedure Name Date Entry Date Standard Description CPT-G0009 Administration of Pneumococcal Vaccine 10:12:50 CDT CPT-24962 Pneumovax 23 Injection Injectable 25 MCG/0.5ML 10:12:50 CDT CPT-G0439 Subsequent Annual Wellness Exam 09:49:25 CDT CPT-51836 First Vx - Ix admin for Medicare patients 17:55:11 CNC MACHINE SETTER CPT-95404 Fluzone High-Dose Intramuscular Suspension 17:55:11 CNC MACHINE SETTER CPT-41229 Venipuncture Draw Fee 14:11:36 CDT CPT-51736 Lipid - LAB USE ONLY 14:11:36 CDT CPT-57203 CMP - LAB USE ONLY 14:11:36 CDT CPT-G0438 Initial Annual Wellness Exam 13:29:06 CDT CPT-G0009 Administration of Pneumococcal Vaccine 13:26:57 CDT CPT-14909 Prevnar 13 Intramuscular Suspension 13:26:56 CDT 08/19 CPT-70873 Bone Density - XRAY USE ONLY 09:30:16 CDT CPT-Cryo Cryotherapy 08:59:26 CNC MACHINE SETTER CPT-Cryo Cryotherapy 08:46:02 CDT CPT-20105 Chest 2V Frontal and Lat 14:02:13 CNC MACHINE SETTER
--- OUTSIDE RECORDS SUMMARY | 2018-03-16 20:09 | XMS REPORT | Clinical Summary ---
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 Other dependence on machines, supplemental oxygen Osteopenia 733.90 Active Pushpa Beverly APRN Disorder of bone and cartilage, unspecified DYSPNEA ICD-786.09 Inactive Andre Barreto MD 2012 FATIGUE ICD-780.79 Inactive Andre Barreto MD 2013 /03/26 DYSPNEA ICD-786.05 Inactive Andre Barreto MD 2012 Fever ICD-780.60 Inactive Andre Barreto MD 05/23 Actinic keratosis ICD-702.0 Inactive Andre Barreto MD Seborrheic keratosis ICD-702.19 Inactive Andre Barreto MD Skin tag ICD-701.9 Inactive Andre Barreto MD 2014 Weakness, muscle ICD-728.87 Inactive Andre Barreto MD Dyshidrotic eczema, hands ICD-705.81 Inactive Andre Barreot MD Postmenopausal status ICD-V49.81 Inactive Andre Barreto MD Family history of osteoporosis ICD-V17.81 Inactive Andre Barreto MD Unsteady gait ICD-781.2 Inactive Andre Barreto MD Medication List Medication Instructions Start Date Stop Date Generic Name NDC Status Provider Patient Instruction DETROL 2 MG ORAL TABS 1 po qd TOLTERODINE TARTRATE 65057331640 Active Andre Barreto MD Active NITROGLYCERIN 0.4 MG SL SUBL 1 SL q5min PRN Chest pain up to 3 doses NITROGLYCERIN 15709326035 Active Andre Barreto MD Active TOPROL XL 50 MG ORAL [id number] 1 po qd METOPROLOL SUCCINATE 77175682804 Active Andre Barreto MD Active PLAVIX 75 MG TABS 1 po qd CLOPIDOGREL BISULFATE 58845075252 Active Andre Barreto MD Active LASIX 20 MG TAB 1 po qd PRN Edema FUROSEMIDE 63899399437 Bar Barreto MD Active ATORVASTATIN CALCIUM 80 MG TABS 1 po qHS ATORVASTATIN CALCIUM 86127643121 Active Andre Barreto MD Active SYMBICORT 160-4.5 MCG/ACT AERO 2 puff BID BUDESONIDE- FORMOTEROL FUMARATE 99585097070 Active Andre Barreto MD Active PROAIR HFA 108 (90 BASE) MCG/ACT AERS 2 puffs four times a day as needed 2015 ALBUTEROL SULFATE 13180198530 Active Andre Barreto MD Active FLUOXETINE HCL 40 MG ORAL CAPS 1 po qd FLUOXETINE HCL 11080739759 Active Andre Barreto MD Active BENICAR HCT 40-25 MG TABS Take one by mouth daily OLMESARTAN MEDOXOMIL-HCTZ 69205626011 No Longer Active Andre Barreto MD Active LOSARTAN POTASSIUM-HCTZ 100-25 MG TABS 1 po qd LOSARTAN POTASSIUM-HCTZ 64138867881 Active Andre Barreto MD Active BETAMETHASONE DIPROPIONATE 0.05 % OINT Apply to affected areas BID for up to 2 weeks BETAMETHASONE DIPROPIONATE 34288708171 No Longer Active Andre Barreto MD Active ZOFRAN 4 MG TABS 1 po q6hr PRN Nausea ONDANSETRON HCL 48125264428 No Longer Active Andre Barreto MD Active CIPRO 500 MG TAB 1 tablet by mouth twice daily CIPROFLOXACIN HCL 59402015678 No Longer Active Andre Barreto MD Active SYMBICORT 160-4.5 MCG/ACT AERO 2 puffs inhaled bid BUDESONIDE- FORMOTEROL FUMARATE 85579561475 No Longer Active Andre Barreto MD Active DICLOFENAC SODIUM 75 MG TBEC 1 tablet by mouth twice daily DICLOFENAC SODIUM 80523333995 No Longer Active Andre Barreto MD Active PROZAC 40 MG CAPS 1 cap by mouth at bedtime FLUOXETINE HCL 77994350544 No Longer Active Andre Barreto MD Active HYDROCODONE-ACETAMINOPHEN 5-325 MG TABS 1 po q 6hr PRN Pain HYDROCODONE-ACETAMINOPHEN 00212315617 No Longer Active Andre Barreto MD Active TRAMADOL HCL 50 MG TABS 2 po q 6 hrs prn TRAMADOL HCL 57025363822 Active Andre Barreto MD Active AMBIEN 5 MG TABS 1 po a hs prn ZOLPIDEM TARTRATE 00515853343 Active Andre Barreto MD Active HYDROCODONE-ACETAMINOPHEN 5-325 MG TABS 1 po q 6hr PRN Pain HYDROCODONE-ACETAMINOPHEN 5-325 MG TABS 066846 HYDROCODONE-ACETAMINOPHEN Inactive PROZAC 40 MG CAPS 1 cap by mouth at bedtime PROZAC 40 MG CAPS 780819 FLUOXETINE HCL Inactive DICLOFENAC SODIUM 75 MG TBEC 1 tablet by mouth twice daily DICLOFENAC SODIUM 75 MG TBEC 105577 DICLOFENAC SODIUM Inactive SYMBICORT 160-4.5 MCG/ACT AERO 2 puffs inhaled bid SYMBICORT 160-4.5 MCG/ACT AERO BUDESONIDE-FORMOTEROL FUMARATE Inactive ZOFRAN 4 MG TABS 1 po q6hr PRN Nausea ZOFRAN 4 MG TABS 519401 ONDANSETRON HCL Inactive BETAMETHASONE DIPROPIONATE 0.05 % OINT Apply to affected areas BID for up to 2 weeks BETAMETHASONE DIPROPIONATE 0.05 % OINT 804298 BETAMETHASONE DIPROPIONATE Inactive BENICAR HCT 40-25 MG TABS Take one by mouth daily BENICAR HCT 40-25 MG TABS 869619 OLMESARTAN MEDOXOMIL-HCTZ Inactive CIPRO 500 MG TAB 1 tablet by mouth twice daily CIPRO 500 MG TAB 070564 CIPROFLOXACIN HCL Inactive Advance Directives Directive Description [...] ... - Chemistry sodium, serum 140 mmol/L 319-517 4825/06/28 carbon dioxide, venous blood 32.4 mmol/L 21.0-32.0 potassium, serum 4.0 mmol/L 3.5-5.2 chloride, serum 101 mmol/L 98-107 blood glucose 108 mg/dL 65-110 urea nitrogen, blood 20 mg/dL 7-18 creatinine, serum 0.98 mg/dL 0.55-1.30 alanine aminotransferase (SGPT), serum 44 U/L 12-78 aspartate aminotransferase (SGOT), serum 27 U/L 15-37 calcium, serum 9.4 mg/dL 8.5-10.1 bilirubin, serum, total 0.30 mg/dL 0.00-1.00 cholesterol, serum 264 mg/dL 885-931 5704/06/28 triglyceride, serum, fasting 146 mg/dL 30-200 HDL [...] Panel - Chemistry sodium, serum 143 mmol/L 609-760 6671/09/27 carbon dioxide, venous blood 30.1 mmol/L 21.0-32.0 potassium, serum 3.9 mmol/L 3.5-5.2 chloride, serum 107 mmol/L 98-107 blood glucose 114 mg/dL 65-110 urea nitrogen, blood 14 mg/dL 7-18 creatinine, serum 0.79 mg/dL 0.55-1.30 alanine aminotransferase (SGPT), serum 44 U/L 12-78 aspartate aminotransferase (SGOT), serum 25 U/L 15-37 calcium, serum 8.5 mg/dL 8.5-10.1 bilirubin, serum, total 0.30 mg/dL 0.00-1.00 cholesterol, serum 152 mg/dL 213-734 3627/09/27 triglyceride, serum, fasting 85 mg/dL 30-200 HDL cholesterol, serum 59 mg/dL 32-96 LDL cholesterol, serum 76 mg/dL 0-130 Encounters Code Encounter Date Provider Facility CPT-30548 Level 4 Est. Patient 11:53:39 IMAGE CONSULTANT Andre Barreto MD [facility] CPT-39584 Level 4 Est. Patient 14:21:31 CDT Andre Barreto MD [facility] CPT-38806 Level 4 Est. Patient 15:24:17 CDT Andre Barreto MD [facility] CPT-34637 Level 3 Est. Patient 10:36:40 CDT Andre Barreto MD [facility] CPT-50923 Level 4 Est. Patient 11:27:43 CDT Andre Barreto MD [facility] CPT-03269 Level 3 Est. Patient 10:57:31 IMAGE CONSULTANT Andre Barreto MD [facility] CPT-54114 Level 3 Est. Patient 13:53:13 IMAGE CONSULTANT Andre Barreto MD [facility] CPT-88386 Level 3 Est. Patient 09:16:12 CDT Andre Barreto MD [facility] CPT-10809 Level 3 Est. Patient 14:50:35 CDT Andre Barreto MD [facility] Procedures Code Procedure Name Date Entry Date Standard Description CPT-94964 First Vx - Ix admin for Medicare patients 17:55:11 IMAGE CONSULTANT CPT-82699 Fluzone High-Dose Intramuscular Suspension 17:55:11 IMAGE CONSULTANT CPT-21575 Venipuncture Draw Fee 14:11:36 CDT CPT-07477 Lipid - LAB USE ONLY 14:11:36 CDT CPT-96961 CMP - LAB USE ONLY 14:11:36 CDT CPT-G0438 Initial Annual Wellness Exam 13:29:06 CDT CPT-G0009 Administration of Pneumococcal Vaccine 13:26:57 CDT CPT-74634 Prevnar 13 Intramuscular Suspension 13:26:56 CDT 08/19 CPT-98023 Bone Density - XRAY USE ONLY 09:30:16 CDT CPT-Cryo Cryotherapy 08:59:26 IMAGE CONSULTANT CPT-Cryo Cryotherapy 08:46:02 CDT CPT-80755 Chest 2V Frontal and Lat 14:02:13 IMAGE CONSULTANT
--- OUTSIDE RECORDS SUMMARY | 2018-03-16 20:11 | XMS REPORT | Clinical Summary ---
Author Author Admin, [employer] Organization [employer] Address Unknown Phone Unavailable Allergies, Adverse Reactions, Alerts Allergy Name Reaction Description Start Date Severity Status Provider SULFA Mild No Longer Active Jillina Frazell [employer]OR [employer] PENICILLIN Mild No Longer Active Jillina Frazell [employer]OR [employer] ZINC Mild No Longer Active Jillina Frazell DIRECTOR [employer] SULFA Critical No Longer Active Marcelle Yesi [...] Coronary atherosclerosis of unspecified type of vessel, [place] or graft Obstructive sleep apnea 327.23 Active Andre Barreto MD Obstructive sleep apnea (adult) (pediatric) Health screening V70.0 Active Andre Barreto MD Routine general medical examination at a health care facility Fever 780.60 Resolved Andre Barreto MD Fever, unspecified Actinic keratosis 702.0 Resolved Andre Barreto MD Actinic keratosis Seborrheic keratosis 702.19 Resolved Andre Barreto MD Other seborrheic keratosis Skin tag 701.9 Resolved Anrde Barreto MD Unspecified hypertrophic and atrophic conditions [...] po QID x 7 days CLINDAMYCIN HCL 13021226417 Active Jillina Frazell [employer]OR PUBLIC [employer]ICE Active BACTRIM DS 800-160 MG ORAL TABLET 1 tab by mouth twice daily 2017 TRIMETHOPRIM-SULFAMETHOXAZOLE 55735753660 No Longer Active Jillina Frazell [employer]OR [employer]ICE Active BACTROBAN 2 % EXTERNAL OINTMENT Apply to affected area BID MUPIROCIN 24759138356 Active Jillina Frazell DIRECTOR [employer] SERVICE Active GUAIFENESIN DM 400-20 MG ORAL TABLET 1 pill by mouth twice daily, if needed for cough DEXTROMETHORPHAN-GUAIFENESIN 70724109828 Active Jillina Frazell [employer]OR [employer]ICE Active CEFDINIR 300 MG ORAL CAPSULE by mouth twice a day CEFDINIR 56221866669 No Longer Active Jillina Frazell [employer] Active BENZONATATE 200 MG ORAL CAPSULE 1 three times a day as needed for cough 03/27 BENZONATATE 19353546638 No Longer Active Luna Prabhakar Active ZITHROMAX Z-NEVAEH 250 MG ORAL TABLET 2 today and then 1 daily for 4 days 03/27 AZITHROMYCIN 74560821419 No Longer Active Luna Prabhakar Active PREDNISONE 20 MG ORAL TABLET 2 daily for 3 days then 1 daily for 3 days 03/27 PREDNISONE 91259214712 No Longer Active Luna Prabhakar Active ATORVASTATIN CALCIUM 40 MG ORAL TABLET 1 po qHS ATORVASTATIN CALCIUM 65275959856 Active Marcelle Key Isabella Active CLOPIDOGREL BISULFATE 75 MG ORAL TABLET 1 po qd CLOPIDOGREL BISULFATE 64123662495 Active Andre Barreto MD Active FUROSEMIDE 20 MG ORAL TABLET 1 po qd PRN Edema FUROSEMIDE 74660624496 Active Andre Barreto MD Active PROAIR HFA 108 (90 Base) MCG/ACT INHALATION AEROSOL SOLUTION 2 puffs q4hr PRN Shortness of air/Wheezing ALBUTEROL SULFATE 00356641701 Active Andre Barreto MD Active ATORVASTATIN CALCIUM 80 MG ORAL TABLET 1 po qHS ATORVASTATIN CALCIUM 35470604261 No Longer Active Andre Barreto MD Active AMBIEN 5 MG ORAL TABLET 1 po qHS PRN Insomnia ZOLPIDEM TARTRATE 74786307014 Active Andre Barreto MD Active DETROL 2 MG ORAL TABLET 1 po qd TOLTERODINE TARTRATE 17901829772 Active Andre Barreto MD Active NITROGLYCERIN 0.4 MG SUBLINGUAL TABLET SUBLINGUAL 1 SL q5min PRN Chest pain up to 3 doses NITROGLYCERIN 58782318858 Active Andre Barreto MD Active TOPROL XL 50 MG ORAL TABLET EXTENDED RELEASE 24 HOUR 1 po qd METOPROLOL SUCCINATE 00436326808 Active Andre Barreto MD Active SYMBICORT 160-4.5 MCG/ACT INHALATION AEROSOL 2 puff BID BUDESONIDE-FORMOTEROL FUMARATE 62298697163 Active Cayla VERA Active FLUOXETINE HCL 40 MG ORAL CAPSULE 1 po qd FLUOXETINE HCL 60457079506 Active Andre Barreto MD Active BENICAR HCT 40-25 MG ORAL TABLET Take one by mouth daily OLMESARTAN MEDOXOMIL-HCTZ 51158793822 No Longer Active Andre Barreto MD Active [place]ARTAN POTASSIUM-HCTZ 100-25 MG ORAL TABLET 1 po qd LOSARTAN POTASSIUM-HCTZ 49481977420 Active Andre Barreto MD Active BETAMETHASONE DIPROPIONATE 0.05 % EXTERNAL OINTMENT Apply to affected areas BID for up to 2 weeks BETAMETHASONE DIPROPIONATE 24492763386 No Longer Active Andre Barreto MD Active ZOFRAN 4 MG ORAL TABLET 1 po q6hr PRN Nausea ONDANSETRON HCL 94491341983 No Longer Active Andre Barreto MD Active CIPRO 500 MG ORAL TABLET 1 tablet by mouth twice daily CIPROFLOXACIN HCL 69925703899 No Longer Active Andre Barreto MD Active SYMBICORT 160-4.5 MCG/ACT INHALATION AEROSOL 2 puffs inhaled bid BUDESONIDE-FORMOTEROL FUMARATE 71330848877 No Longer Active Andre Barreto MD Active DICLOFENAC SODIUM 75 MG ORAL TABLET DELAYED RELEASE 1 tablet by mouth twice daily DICLOFENAC SODIUM 69080746496 No Longer Active Andre Barreto MD Active PROZAC 40 MG ORAL CAPSULE 1 cap by mouth at bedtime FLUOXETINE HCL 49661710200 No Longer Active Andre Barreto MD Active HYDROCODONE-ACETAMINOPHEN 5-325 MG ORAL TABLET 1 po q 6hr PRN Pain HYDROCODONE-ACETAMINOPHEN 01745200669 No Longer Active Andre Barreto MD Active TRAMADOL HCL 50 MG ORAL TABLET 2 po q 6 hrs prn TRAMADOL HCL 91628493428 Active Andre Barreto MD Active HYDROCODONE-ACETAMINOPHEN 5-325 MG ORAL TABLET 1 po q 6hr PRN Pain HYDROCODONE-ACETAMINOPHEN 5-325 MG ORAL TABLET 539355 HYDROCODONE- ACETAMINOPHEN Inactive PROZAC 40 MG ORAL CAPSULE 1 cap by mouth at bedtime PROZAC 40 MG ORAL CAPSULE 763345 FLUOXETINE HCL Inactive DICLOFENAC SODIUM 75 MG ORAL TABLET DELAYED RELEASE 1 tablet by mouth twice daily DICLOFENAC SODIUM 75 MG ORAL TABLET DELAYED RELEASE 581072 DICLOFENAC SODIUM Inactive SYMBICORT 160-4.5 MCG/ACT INHALATION AEROSOL 2 puffs inhaled bid SYMBICORT 160-4.5 MCG/ACT INHALATION AEROSOL BUDESONIDE-FORMOTEROL FUMARATE Inactive ZOFRAN 4 MG ORAL TABLET 1 po q6hr PRN Nausea ZOFRAN 4 MG ORAL TABLET 194877 ONDANSETRON HCL Inactive BETAMETHASONE DIPROPIONATE 0.05 % EXTERNAL OINTMENT Apply to affected areas BID for up to 2 weeks BETAMETHASONE DIPROPIONATE 0.05 % EXTERNAL OINTMENT 364235 BETAMETHASONE DIPROPIONATE Inactive BENICAR HCT 40-25 MG ORAL TABLET Take one by mouth daily BENICAR HCT 40-25 MG ORAL TABLET 991470 OLMESARTAN MEDOXOMIL-HCTZ Inactive ATORVASTATIN CALCIUM 80 MG ORAL TABLET 1 po qHS ATORVASTATIN CALCIUM 80 MG ORAL TABLET 666741 ATORVASTATIN CALCIUM Inactive PREDNISONE 20 MG ORAL TABLET 2 daily for 3 days then 1 daily for 3 days 03/27 PREDNISONE 20 MG ORAL TABLET 759183 PREDNISONE Inactive ZITHROMAX Z-NEVAEH 250 MG ORAL TABLET 2 today and then 1 daily for 4 days 03/27 ZITHROMAX Z-NEVAEH 250 MG ORAL TABLET 846760 AZITHROMYCIN Inactive BENZONATATE 200 MG ORAL CAPSULE 1 three times a day as needed for cough 03/27 BENZONATATE 200 MG ORAL CAPSULE 077171 BENZONATATE Inactive BACTRIM DS 800-160 MG ORAL TABLET 1 tab by mouth twice daily 2017 BACTRIM DS 800-160 MG ORAL TABLET 565426 TRIMETHOPRIM- SULFAMETHOXAZOLE Inactive CIPRO 500 MG ORAL TABLET 1 tablet by mouth twice daily CIPRO 500 MG ORAL TABLET 298468 CIPROFLOXACIN HCL Inactive CEFDINIR 300 MG ORAL CAPSULE by mouth twice a day CEFDINIR 300 MG ORAL CAPSULE 000679 CEFDINIR Inactive Advance Directives Directive Description Start [...] 6.2 % 4.3-6.0 cholesterol, serum 229 mg/dL 878-732 0529/07/24 triglyceride, serum, fasting 106 mg/dL 30-200 HDL cholesterol, serum 60 mg/dL 32-60 LDL cholesterol, serum 148 mg/dL 0-130 sodium, serum 139 mmol/L 511-892 9246/07/24 carbon dioxide, venous blood 34.8 mmol/L 21.0-32.0 [...] Panel - Chemistry cholesterol, serum 275 mg/dL 206-067 0149/11/07 triglyceride, serum, fasting 166 mg/dL 30-200 HDL cholesterol, serum 62 mg/dL 32-60 LDL cholesterol, serum 180 mg/dL 0-130 sodium, serum 141 mmol/L 059-569 2818/11/07 carbon dioxide, venous blood 26.3 mmol/L 21.0-32.0 [...] 0-19 Encounters Code Encounter Date Provider Facility CPT-09765 Level 3 Est. Patient 14:06:16 CDT Andre Barreto MD [facility] CPT-47505 Level 3 Est. Patient 09:16:36 CDT David King [facility] CPT-34635 Level 3 Est. Patient 09:24:01 RADIOLOGY RECEPTIONIST David King [facility] CPT-46253 Level 3 Est. Patient 13:01:07 RADIOLOGY RECEPTIONIST Solitario Howe MD [facility] CPT-33578 Level 4 Est. Patient 10:26:48 RADIOLOGY RECEPTIONIST Andre Barreto MD [facility] CPT-71826 Level 4 Est. Patient 09:45:06 CDT Andre Barreto MD [facility] CPT-17263 Level 4 Est. Patient 11:53:39 RADIOLOGY RECEPTIONIST Andre Barreto MD [facility] CPT-52175 Level 4 Est. Patient 14:21:31 CDT Andre Barreto MD [facility] CPT-43764 Level 4 Est. Patient 15:24:17 CDT Andre Barreto MD [facility] CPT-07282 Level 3 Est. Patient 10:36:40 CDT Andre Barreto MD [facility] CPT-39623 Level 4 Est. Patient 11:27:43 CDT Andre Barreto MD [facility] CPT-05200 Level 3 Est. Patient 10:57:31 RADIOLOGY RECEPTIONIST Andre Barreto MD [facility] CPT-31396 Level 3 Est. Patient 13:53:13 RADIOLOGY RECEPTIONIST Andre Barreto MD [facility] CPT-28607 Level 3 Est. Patient 09:16:12 CDT Andre Barreto MD [facility] CPT-58845 Level 3 Est. Patient 14:50:35 CDT Andre Barreto MD [facility] Procedures Code Procedure Name Date Entry Date Standard Description CPT-18988 Sono pelvis coley bladder only - XRAY USE ONLY 15:07:39 CDT CPT-73747 First Vx - Ix admin for Medicare patients 13:56:44 RADIOLOGY RECEPTIONIST CPT-98573 Zostavax Subcutaneous Solution Reconstituted 64294 UNT/0.65ML 12/22 13:56:44 RADIOLOGY RECEPTIONIST CPT-G0009 Administration of Pneumococcal Vaccine 10:12:50 CDT CPT-76657 Pneumovax 23 Injection Injectable 25 MCG/0.5ML 10:12:50 CDT CPT-G0439 Subsequent Annual Wellness Exam 09:49:25 CDT CPT-51629 First Vx - Ix admin for Medicare patients 17:55:11 RADIOLOGY RECEPTIONIST CPT-66187 Fluzone High-Dose Intramuscular Suspension 17:55:11 RADIOLOGY RECEPTIONIST CPT-50497 Venipuncture Draw Fee 14:11:36 CDT CPT-94169 Lipid - LAB USE ONLY 14:11:36 CDT CPT-14371 CMP - LAB USE ONLY 14:11:36 CDT CPT-G0438 Initial Annual Wellness Exam 13:29:06 CDT CPT-G0009 Administration of Pneumococcal Vaccine 13:26:57 CDT CPT-32712 Prevnar 13 Intramuscular Suspension 13:26:56 CDT 08/19 CPT-28202 Bone Density - XRAY USE ONLY 09:30:16 CDT CPT-Cryo Cryotherapy 08:59:26 RADIOLOGY RECEPTIONIST CPT-Cryo Cryotherapy 08:46:02 CDT CPT-30557 Chest 2V Frontal and Lat 14:02:13 RADIOLOGY RECEPTIONIST
--- OUTSIDE RECORDS SUMMARY | 2018-03-16 20:12 | XMS REPORT | Clinical Summary ---
Author Author Admin, [employer] Organization [employer] Address Unknown Phone Unavailable Allergies, Adverse Reactions, [...] Coronary atherosclerosis of unspecified type of vessel, [place] or graft Obstructive sleep apnea 327.23 Active [...] MG TABS 1 po qHS ATORVASTATIN CALCIUM 59023876087 Active Andre Barreto MD Active SYMBICORT 160-4.5 MCG/ACT AERO 2 puff BID BUDESONIDE- FORMOTEROL FUMARATE 15023587724 Active Andre Barreto MD Active PROAIR HFA 108 (90 BASE) MCG/ACT AERS 2 puffs four times a day as needed 2015 ALBUTEROL SULFATE 83043197111 Active Andre Barreto MD Active FLUOXETINE HCL 40 MG ORAL CAPS 1 po qd FLUOXETINE HCL 95947686470 Active Andre Barreto MD Active DETROL 2 MG ORAL TABS one tab daily TOLTERODINE TARTRATE 58967912712 Active Andre Barreto MD Active BENICAR HCT 40-25 MG TABS Take one by mouth daily OLMESARTAN MEDOXOMIL-HCTZ 71413168199 No Longer Active Andre Barreto MD Active LOSARTAN POTASSIUM-HCTZ 100-25 MG TABS 1 po qd LOSARTAN POTASSIUM-HCTZ 46124268063 Active Andre Barreto MD Active BETAMETHASONE DIPROPIONATE 0.05 % OINT Apply to affected areas BID for up to 2 weeks BETAMETHASONE DIPROPIONATE 68104987886 No Longer Active Andre Barreto MD Active ZOFRAN 4 MG TABS 1 po q6hr PRN Nausea ONDANSETRON HCL 08193201864 No Longer Active Andre Barreto MD Active CIPRO 500 MG TAB 1 tablet by mouth twice daily CIPROFLOXACIN HCL 17627069593 No Longer Active Andre Barreto MD Active SYMBICORT 160-4.5 MCG/ACT AERO 2 puffs inhaled bid BUDESONIDE- FORMOTEROL FUMARATE 35093573835 No Longer Active Andre Barreto MD Active LASIX 20 MG TAB 1 tablet by mouth daily PRN FUROSEMIDE 59407708996 Active Andre Barreto MD Active TOPROL XL 25 MG [id number] Take one by mouth daily METOPROLOL SUCCINATE 66552974519 Active Andre Barreto MD Active PLAVIX 75 MG TABS 1 tablet by mouth daily CLOPIDOGREL BISULFATE 64820276668 Active Andre Barreto MD Active NITROSTAT 0.4 MG SL TAB disolve 1 under tongue repeat if needed NITROGLYCERIN 32480138314 Active Andre Barreto MD Active DICLOFENAC SODIUM 75 MG TBEC 1 tablet by mouth twice daily DICLOFENAC SODIUM 39637241588 No Longer Active Andre Barreto MD Active PROZAC 40 MG CAPS 1 cap by mouth at bedtime FLUOXETINE HCL 29046007385 No Longer Active Andre Barreto MD Active HYDROCODONE-ACETAMINOPHEN 5-325 MG TABS 1 po q 6hr PRN Pain HYDROCODONE-ACETAMINOPHEN 53262517820 No Longer Active Andre Barreto MD Active TRAMADOL HCL 50 MG TABS 2 po q 6 hrs prn TRAMADOL HCL 72583110412 Active Andre Barreto MD Active AMBIEN 5 MG TABS 1 po a hs prn ZOLPIDEM TARTRATE 59191600832 Active Andre Barreto MD Active HYDROCODONE-ACETAMINOPHEN 5-325 MG TABS 1 po q 6hr PRN Pain HYDROCODONE-ACETAMINOPHEN 5-325 MG TABS 018992 HYDROCODONE-ACETAMINOPHEN Inactive PROZAC 40 MG CAPS 1 cap by mouth at bedtime PROZAC 40 MG CAPS 918394 FLUOXETINE HCL Inactive DICLOFENAC SODIUM 75 MG TBEC 1 tablet by mouth twice daily DICLOFENAC SODIUM 75 MG TBEC 155043 DICLOFENAC SODIUM Inactive SYMBICORT 160-4.5 MCG/ACT AERO 2 puffs inhaled bid SYMBICORT 160-4.5 MCG/ACT AERO BUDESONIDE-FORMOTEROL FUMARATE Inactive ZOFRAN 4 MG TABS 1 po q6hr PRN Nausea ZOFRAN 4 MG TABS 058535 ONDANSETRON HCL Inactive BETAMETHASONE DIPROPIONATE 0.05 % OINT Apply to affected areas BID for up to 2 weeks BETAMETHASONE DIPROPIONATE 0.05 % OINT 040233 BETAMETHASONE DIPROPIONATE Inactive BENICAR HCT 40-25 MG TABS Take one by mouth daily BENICAR HCT 40-25 MG TABS OLMESARTAN MEDOXOMIL-HCTZ Inactive CIPRO 500 MG TAB 1 tablet by mouth twice daily CIPRO 500 MG TAB 080966 CIPROFLOXACIN HCL Inactive Advance Directives Directive Description [...] ... - Chemistry sodium, serum 140 mmol/L 222-147 0379/06/28 carbon dioxide, venous blood 32.4 mmol/L 21.0-32.0 potassium, serum 4.0 mmol/L 3.5-5.2 chloride, serum 101 mmol/L 98-107 blood glucose 108 mg/dL 65-110 urea nitrogen, blood 20 mg/dL 7-18 creatinine, serum 0.98 mg/dL 0.55-1.30 alanine aminotransferase (SGPT), serum 44 U/L 12-78 aspartate aminotransferase (SGOT), serum 27 U/L 15-37 calcium, serum 9.4 mg/dL 8.5-10.1 bilirubin, serum, total 0.30 mg/dL 0.00-1.00 cholesterol, serum 264 mg/dL 911-081 9949/06/28 triglyceride, serum, fasting 146 mg/dL 30-200 HDL [...] Panel - Chemistry sodium, serum 143 mmol/L 710-160 1787/09/27 carbon dioxide, venous blood 30.1 mmol/L 21.0-32.0 potassium, serum 3.9 mmol/L 3.5-5.2 chloride, serum 107 mmol/L 98-107 blood glucose 114 mg/dL 65-110 urea nitrogen, blood 14 mg/dL 7-18 creatinine, serum 0.79 mg/dL 0.55-1.30 alanine aminotransferase (SGPT), serum 44 U/L 12-78 aspartate aminotransferase (SGOT), serum 25 U/L 15-37 calcium, serum 8.5 mg/dL 8.5-10.1 bilirubin, serum, total 0.30 mg/dL 0.00-1.00 cholesterol, serum 152 mg/dL 701-936 9037/09/27 triglyceride, serum, fasting 85 mg/dL 30-200 HDL cholesterol, serum 59 mg/dL 32-96 LDL cholesterol, serum 76 mg/dL 0-130 Encounters Code Encounter Date Provider Facility CPT-20362 Level 4 Est. Patient 15:24:17 CDT Andre Barreto MD [facility] CPT-45445 Level 3 Est. Patient 10:36:40 CDT Andre Barreto MD [facility] CPT-38121 Level 4 Est. Patient 11:27:43 CDT Andre Barreto MD [facility] CPT-17958 Level 3 Est. Patient 10:57:31 TUNNEL MAN Andre Barreto MD [facility] CPT-64662 Level 3 Est. Patient 13:53:13 TUNNEL MAN Andre Barreto MD [facility] CPT-51713 Level 3 Est. Patient 09:16:12 CDT Andre Barreto MD [facility] CPT-30231 Level 3 Est. Patient 14:50:35 CDT Andre Barreto MD [facility] Procedures Code Procedure Name Date Entry Date Standard Description CPT-G0438 Initial Annual Wellness Exam 13:29:06 CDT CPT-G0009 Administration of Pneumococcal Vaccine 13:26:57 CDT CPT-97621 Prevnar 13 Intramuscular Suspension 13:26:56 CDT 08/19 CPT-54840 Bone Density - XRAY USE ONLY 09:30:16 CDT CPT-Cryo Cryotherapy 08:59:26 TUNNEL MAN CPT-Cryo Cryotherapy 08:46:02 CDT CPT-50092 Chest 2V Frontal and Lat 14:02:13 TUNNEL MAN
--- OUTSIDE RECORDS SUMMARY | 2018-03-16 20:12 | XMS REPORT | Clinical Summary ---
Author Author Admin, [employer] Organization [employer] Address Unknown Phone Unavailable Allergies, Adverse Reactions, [...] Coronary atherosclerosis of unspecified type of vessel, [place] or graft Obstructive sleep apnea 327.23 Active [...] Active Andre Barreto MD Unspecified chronic bronchitis DYSPNEA ICD-786.09 Inactive Andre Barreto MD [...] Generic Name NDC Status Provider Patient Instruction SYMBICORT 160-4.5 MCG/ACT AERO 2 puff BID BUDESONIDE- FORMOTEROL FUMARATE 52389279405 Active Andre Barreto MD Active PROAIR HFA 108 (90 BASE) MCG/ACT AERS 2 puffs four times a day as needed 2015 ALBUTEROL SULFATE 28639511156 Active Andre Barreto MD Active FLUOXETINE HCL 40 MG ORAL CAPS 1 po qd FLUOXETINE HCL 93636360663 Active Andre Barreto MD Active DETROL 2 MG ORAL TABS one tab daily TOLTERODINE TARTRATE 92303607958 Active Andre Barreto MD Active BENICAR HCT 40-25 MG TABS Take one by mouth daily OLMESARTAN MEDOXOMIL-HCTZ 22233029008 No Longer Active Andre Barreto MD Active LOSARTAN POTASSIUM-HCTZ 100-25 MG TABS 1 po qd LOSARTAN POTASSIUM-HCTZ 49038930738 Active Andre Barreto MD Active BETAMETHASONE DIPROPIONATE 0.05 % OINT Apply to affected areas BID for up to 2 weeks BETAMETHASONE DIPROPIONATE 46430705212 No Longer Active Andre Barreto MD Active LIPITOR 40 MG TAB Take 1 tab by mouth daily ATORVASTATIN CALCIUM 48163166460 Active Andre Barreto MD Active ZOFRAN 4 MG TABS 1 po q6hr PRN Nausea ONDANSETRON HCL 46850558273 No Longer Active Andre Barreto MD Active CIPRO 500 MG TAB 1 tablet by mouth twice daily CIPROFLOXACIN HCL 59803934366 No Longer Active Andre Barreto MD Active SYMBICORT 160-4.5 MCG/ACT AERO 2 puffs inhaled bid BUDESONIDE- FORMOTEROL FUMARATE 85127433070 No Longer Active Andre Barreto MD Active LASIX 20 MG TAB 1 tablet by mouth daily PRN FUROSEMIDE 77823554238 Active Andre Barreto MD Active TOPROL XL 25 MG [id number] Take one by mouth daily METOPROLOL SUCCINATE 79069088160 Active Andre Barreto MD Active PLAVIX 75 MG TABS 1 tablet by mouth daily CLOPIDOGREL BISULFATE 20111039681 Active Andre Barreto MD Active NITROSTAT 0.4 MG SL TAB disolve 1 under tongue repeat if needed NITROGLYCERIN 43573844486 Active Andre Barreto MD Active DICLOFENAC SODIUM 75 MG TBEC 1 tablet by mouth twice daily DICLOFENAC SODIUM 53251848594 No Longer Active Andre Barreto MD Active PROZAC 40 MG CAPS 1 cap by mouth at bedtime FLUOXETINE HCL 93632540634 No Longer Active Andre Barreto MD Active HYDROCODONE-ACETAMINOPHEN 5-325 MG TABS 1 po q 6hr PRN Pain HYDROCODONE-ACETAMINOPHEN 07850198341 No Longer Active Andre Barreto MD Active TRAMADOL HCL 50 MG TABS 2 po q 6 hrs prn TRAMADOL HCL 30987791735 Active David King CLOTH FINISHER Active AMBIEN 5 MG TABS 1 po a hs prn ZOLPIDEM TARTRATE 08725229267 Active Andre Barreto MD Active HYDROCODONE-ACETAMINOPHEN 5-325 MG TABS 1 po q 6hr PRN Pain HYDROCODONE-ACETAMINOPHEN 5-325 MG TABS 880453 HYDROCODONE-ACETAMINOPHEN Inactive PROZAC 40 MG CAPS 1 cap by mouth at bedtime PROZAC 40 MG CAPS 785565 FLUOXETINE HCL Inactive DICLOFENAC SODIUM 75 MG TBEC 1 tablet by mouth twice daily DICLOFENAC SODIUM 75 MG TBEC 738397 DICLOFENAC SODIUM Inactive SYMBICORT 160-4.5 MCG/ACT AERO 2 puffs inhaled bid SYMBICORT 160-4.5 MCG/ACT AERO BUDESONIDE-FORMOTEROL FUMARATE Inactive ZOFRAN 4 MG TABS 1 po q6hr PRN Nausea ZOFRAN 4 MG TABS 108817 ONDANSETRON HCL Inactive BETAMETHASONE DIPROPIONATE 0.05 % OINT Apply to affected areas BID for up to 2 weeks BETAMETHASONE DIPROPIONATE 0.05 % OINT 804893 BETAMETHASONE DIPROPIONATE Inactive BENICAR HCT 40-25 MG TABS Take one by mouth daily BENICAR HCT 40-25 MG TABS OLMESARTAN MEDOXOMIL-HCTZ Inactive CIPRO 500 MG TAB 1 tablet by mouth twice daily CIPRO 500 MG TAB 900459 CIPROFLOXACIN HCL Inactive Vital Signs Date Name Value Unit Range Description blood pressure, diastolic - 8462-4 71 mm[Hg] BP pat blood pressure, systolic - 8480-6 131 mm[Hg] BP sys pulse rate E&M - 8867-4 56 /min Heart rate temperature E&M 96.5 [degF] Body temperature weight E&M - 3141-9 281 [lb_av] Weight Measured Encounters Code Encounter Date Provider Facility CPT-30087 Level 4 Est. Patient 15:24:17 CDT Andre Barreto MD [facility] CPT-41518 Level 3 Est. Patient 10:36:40 CDT Andre Barreto MD [facility] CPT-03173 Level 4 Est. Patient 11:27:43 CDT Andre Barreto MD [facility] CPT-27988 Level 3 Est. 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 Patient 13:53:13 MACHINE TOOL ELECTRICIAN Andre Barreto MD [facility] CPT-08044 Level 3 Est. Patient 09:16:12 CDT Andre Barreto MD [facility] CPT-42529 Level 3 Est. Patient 14:50:35 CDT Andre Barreto MD [facility] Procedures Code Procedure Name Date Entry Date Standard Description CPT-Cryo Cryotherapy 08:59:26 MACHINE TOOL ELECTRICIAN CPT-Cryo Cryotherapy 08:46:02 CDT CPT-83206 Chest 2V Frontal and Lat 14:02:13 MACHINE TOOL ELECTRICIAN
--- OUTSIDE RECORDS SUMMARY | 2018-03-16 20:14 | XMS REPORT | Clinical Summary ---
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 on machines, supplemental oxygen [...] ORAL TABS 1 po qd TOLTERODINE TARTRATE 06510579416 Active Andre Barreto MD Active NITROGLYCERIN 0.4 MG SL SUBL 1 SL q5min PRN Chest pain up to 3 doses NITROGLYCERIN 08501211764 Active Andre Barreto MD Active TOPROL XL 50 MG ORAL [id number] 1 po qd METOPROLOL SUCCINATE 56582905697 Active Andre Barreto MD Active PLAVIX 75 MG TABS 1 po qd CLOPIDOGREL BISULFATE 74853244836 Active Andre Barreto MD Active LASIX 20 MG TAB 1 po qd PRN Edema FUROSEMIDE 26917706651 Bar Barreto MD Active ATORVASTATIN CALCIUM 80 MG TABS 1 po qHS ATORVASTATIN CALCIUM 38250087150 Active Andre Barreto MD Active SYMBICORT 160-4.5 MCG/ACT AERO 2 puff BID BUDESONIDE- FORMOTEROL FUMARATE 89262964182 Active Andre Barreto MD Active PROAIR HFA 108 (90 BASE) MCG/ACT AERS 2 puffs four times a day as needed 2015 ALBUTEROL SULFATE 26462461120 Active Andre Barreto MD Active FLUOXETINE HCL 40 MG ORAL CAPS 1 po qd FLUOXETINE HCL 76057582966 Active Andre Barreto MD Active BENICAR HCT 40-25 MG TABS Take one by mouth daily OLMESARTAN MEDOXOMIL-HCTZ 45113167143 No Longer Active Andre Barreto MD Active LOSARTAN POTASSIUM-HCTZ 100-25 MG TABS 1 po qd LOSARTAN POTASSIUM-HCTZ 47469171305 Active Andre Barreto MD Active BETAMETHASONE DIPROPIONATE 0.05 % OINT Apply to affected areas BID for up to 2 weeks BETAMETHASONE DIPROPIONATE 64736232304 No Longer Active Andre Barreto MD Active ZOFRAN 4 MG TABS 1 po q6hr PRN Nausea ONDANSETRON HCL 80862338105 No Longer Active Andre Barreto MD Active CIPRO 500 MG TAB 1 tablet by mouth twice daily CIPROFLOXACIN HCL 13977383896 No Longer Active Andre Barreto MD Active SYMBICORT 160-4.5 MCG/ACT AERO 2 puffs inhaled bid BUDESONIDE- FORMOTEROL FUMARATE 28577748737 No Longer Active Andre Barreto MD Active DICLOFENAC SODIUM 75 MG TBEC 1 tablet by mouth twice daily DICLOFENAC SODIUM 96317547708 No Longer Active Andre Barreto MD Active PROZAC 40 MG CAPS 1 cap by mouth at bedtime FLUOXETINE HCL 67848505527 No Longer Active Andre Barreto MD Active HYDROCODONE-ACETAMINOPHEN 5-325 MG TABS 1 po q 6hr PRN Pain HYDROCODONE-ACETAMINOPHEN 10274542165 No Longer Active Andre Barreto MD Active TRAMADOL HCL 50 MG TABS 2 po q 6 hrs prn TRAMADOL HCL 64933030457 Active Andre Barreto MD Active AMBIEN 5 MG TABS 1 po a hs prn ZOLPIDEM TARTRATE 84802160635 Active Andre Barreto MD Active HYDROCODONE-ACETAMINOPHEN 5-325 MG TABS 1 po q 6hr PRN Pain HYDROCODONE-ACETAMINOPHEN 5-325 MG TABS 695190 HYDROCODONE-ACETAMINOPHEN Inactive PROZAC 40 MG CAPS 1 cap by mouth at bedtime PROZAC 40 MG CAPS 586652 FLUOXETINE HCL Inactive DICLOFENAC SODIUM 75 MG TBEC 1 tablet by mouth twice daily DICLOFENAC SODIUM 75 MG TBEC 776106 DICLOFENAC SODIUM Inactive SYMBICORT 160-4.5 MCG/ACT AERO 2 puffs inhaled bid SYMBICORT 160-4.5 MCG/ACT AERO BUDESONIDE-FORMOTEROL FUMARATE Inactive ZOFRAN 4 MG TABS 1 po q6hr PRN Nausea ZOFRAN 4 MG TABS 213099 ONDANSETRON HCL Inactive BETAMETHASONE DIPROPIONATE 0.05 % OINT Apply to affected areas BID for up to 2 weeks BETAMETHASONE DIPROPIONATE 0.05 % OINT 541629 BETAMETHASONE DIPROPIONATE Inactive BENICAR HCT 40-25 MG TABS Take one by mouth daily BENICAR HCT 40-25 MG TABS 808556 OLMESARTAN MEDOXOMIL-HCTZ Inactive CIPRO 500 MG TAB 1 tablet by mouth twice daily CIPRO 500 MG TAB 806743 CIPROFLOXACIN HCL Inactive Advance Directives Directive Description [...] ... - Chemistry sodium, serum 140 mmol/L 083-514 8220/06/28 carbon dioxide, venous blood 32.4 mmol/L 21.0-32.0 potassium, serum 4.0 mmol/L 3.5-5.2 chloride, serum 101 mmol/L 98-107 blood glucose 108 mg/dL 65-110 urea nitrogen, blood 20 mg/dL 7-18 creatinine, serum 0.98 mg/dL 0.55-1.30 alanine aminotransferase (SGPT), serum 44 U/L 12-78 aspartate aminotransferase (SGOT), serum 27 U/L 15-37 calcium, serum 9.4 mg/dL 8.5-10.1 bilirubin, serum, total 0.30 mg/dL 0.00-1.00 cholesterol, serum 264 mg/dL 200-009 8707/06/28 triglyceride, serum, fasting 146 mg/dL 30-200 HDL [...] Panel - Chemistry sodium, serum 143 mmol/L 354-380 7133/09/27 carbon dioxide, venous blood 30.1 mmol/L 21.0-32.0 potassium, serum 3.9 mmol/L 3.5-5.2 chloride, serum 107 mmol/L 98-107 blood glucose 114 mg/dL 65-110 urea nitrogen, blood 14 mg/dL 7-18 creatinine, serum 0.79 mg/dL 0.55-1.30 alanine aminotransferase (SGPT), serum 44 U/L 12-78 aspartate aminotransferase (SGOT), serum 25 U/L 15-37 calcium, serum 8.5 mg/dL 8.5-10.1 bilirubin, serum, total 0.30 mg/dL 0.00-1.00 cholesterol, serum 152 mg/dL 837-038 1021/09/27 triglyceride, serum, fasting 85 mg/dL 30-200 HDL cholesterol, serum 59 mg/dL 32-96 LDL cholesterol, serum 76 mg/dL 0-130 Encounters Code Encounter Date Provider Facility CPT-20886 Level 4 Est. 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 Patient 14:21:31 CDT Andre Barreto MD [facility] CPT-90472 Level 4 Est. Patient 15:24:17 CDT Andre Barreto MD [facility] CPT-10243 Level 3 Est. Patient 10:36:40 CDT Andre Barreto MD [facility] CPT-94261 Level 4 Est. Patient 11:27:43 CDT Andre Barreto MD [facility] CPT-01672 Level 3 Est. Patient 10:57:31 AUTO BODY STRAIGHTENER Andre Barreto MD [facility] CPT-87704 Level 3 Est. Patient 13:53:13 AUTO BODY STRAIGHTENER Andre Barreto MD [facility] CPT-55248 Level 3 Est. Patient 09:16:12 CDT Andre Barreto MD [facility] CPT-53584 Level 3 Est. Patient 14:50:35 CDT Andre Barreto MD [facility] Procedures Code Procedure Name Date Entry Date Standard Description CPT-41027 First Vx - Ix admin for Medicare patients 17:55:11 AUTO BODY STRAIGHTENER CPT-31655 Fluzone High-Dose Intramuscular Suspension 17:55:11 AUTO BODY STRAIGHTENER CPT-44570 Venipuncture Draw Fee 14:11:36 CDT CPT-38901 Lipid - LAB USE ONLY 14:11:36 CDT CPT-77733 CMP - LAB USE ONLY 14:11:36 CDT CPT-G0438 Initial Annual Wellness Exam 13:29:06 CDT CPT-G0009 Administration of Pneumococcal Vaccine 13:26:57 CDT CPT-77738 Prevnar 13 Intramuscular Suspension 13:26:56 CDT 08/19 CPT-20475 Bone Density - XRAY USE ONLY 09:30:16 CDT CPT-Cryo Cryotherapy 08:59:26 AUTO BODY STRAIGHTENER CPT-Cryo Cryotherapy 08:46:02 CDT CPT-99046 Chest 2V Frontal and Lat 14:02:13 AUTO BODY STRAIGHTENER
--- OUTSIDE RECORDS SUMMARY | 2018-03-16 20:15 | XMS REPORT | Clinical Summary ---
Author Author Admin, EDUARDO Organization [facility] Address Unknown Phone Unavailable Allergies, Adverse Reactions, [...] Coronary atherosclerosis of unspecified type of vessel, [place] or graft OBSTRUCTIVE SLEEP APNEA 327.23 Active [...] for up to 2 weeks BETAMETHASONE DIPROPIONATE 20580882890 Active Andre Barreto MD Active LIPITOR 40 MG TAB Take 1 tab by mouth daily ATORVASTATIN CALCIUM 09640204136 Active Andre Barreto MD Active ZOFRAN 4 MG TABS 1 po q6hr PRN Nausea ONDANSETRON HCL 70970181476 No Longer Active Andre Barreto MD Active CIPRO 500 MG TAB 1 tablet by mouth twice daily CIPROFLOXACIN HCL 82082570449 No Longer Active Andre Barreto MD Active SYMBICORT 160-4.5 MCG/ACT AERO 2 puffs inhaled bid BUDESONIDE- FORMOTEROL FUMARATE 82759959096 No Longer Active Andre Barreto MD Active LASIX 20 MG TAB 1 tablet by mouth daily PRN FUROSEMIDE 35436998497 Active Andre Barreto MD Active TOPROL XL 25 MG [id number] Take one by mouth daily METOPROLOL SUCCINATE 04398197257 Active Andre Barreto MD Active PLAVIX 75 MG TABS 1 tablet by mouth daily CLOPIDOGREL BISULFATE 11180414998 Active Andre Barreto MD Active NITROSTAT 0.4 MG SL TAB disolve 1 under tongue repeat if needed NITROGLYCERIN 05087961989 Active Andre Barreto MD Active DICLOFENAC SODIUM 75 MG TBEC 1 tablet by mouth twice daily DICLOFENAC SODIUM 24491945088 No Longer Active Andre Barreto MD Active FLUOXETINE HCL 20 MG CAPS TAKE 3 CAPSULES BY MOUTH ONCE DAILY. FLUOXETINE HCL 93179066654 Active Andre Barreto MD Active PROZAC 40 MG CAPS 1 cap by mouth at bedtime FLUOXETINE HCL 26298693222 No Longer Active Andre Barreto MD Active HYDROCODONE-ACETAMINOPHEN 5-325 MG TABS 1 po q 6hr PRN Pain HYDROCODONE-ACETAMINOPHEN 89199225179 No Longer Active Andre Barreto MD Active TRAMADOL HCL 50 MG TABS 2 po q 6 hrs prn TRAMADOL HCL 60345000707 Active Andre Barreto MD Active AMBIEN 5 MG TABS 1 po a hs prn ZOLPIDEM TARTRATE 90073593966 Active Andre Barreto MD Active BENICAR HCT 40-25 MG TABS Take one by mouth daily OLMESARTAN MEDOXOMIL- HCTZ 81675291924 Active Andre Barreto MD Active HYDROCODONE-ACETAMINOPHEN 5-325 MG TABS 1 po q 6hr PRN Pain HYDROCODONE-ACETAMINOPHEN 5-325 MG TABS 291549 HYDROCODONE-ACETAMINOPHEN Inactive PROZAC 40 MG CAPS 1 cap by mouth at bedtime PROZAC 40 MG CAPS 537110 FLUOXETINE HCL Inactive DICLOFENAC SODIUM 75 MG TBEC 1 tablet by mouth twice daily DICLOFENAC SODIUM 75 MG TBEC 160394 DICLOFENAC SODIUM Inactive SYMBICORT 160-4.5 MCG/ACT AERO 2 puffs inhaled bid SYMBICORT 160-4.5 MCG/ACT AERO BUDESONIDE-FORMOTEROL FUMARATE Inactive ZOFRAN 4 MG TABS 1 po q6hr PRN Nausea ZOFRAN 4 MG TABS 475308 ONDANSETRON HCL Inactive CIPRO 500 MG TAB 1 tablet by mouth twice daily CIPRO 500 MG TAB 428808 CIPROFLOXACIN HCL Inactive Vital Signs Date Name [...] W/DIFF - Chemistry sodium, serum 145 mmol/L 538-178 6333/12/19 potassium, serum 4.3 mmol/L 3.5-5.2 chloride, serum 104 mmol/L 98-107 carbon dioxide, venous blood 29.9 mmol/L 21.0-32.0 blood glucose 121 mg/dL 65-110 urea nitrogen, blood 17 mg/dL 7-18 creatinine, serum 1.20 mg/dL 0.60-1.30 alanine aminotransferase (SGPT), serum 40 U/L 12-78 aspartate aminotransferase (SGOT), serum 25 U/L 15-37 calcium, serum 9.2 mg/dL 8.5-10.1 bilirubin, serum, total 0.50 mg/dL 0.00-1.00 cholesterol, serum 174 mg/dL 650-634 6673/12/19 triglyceride, serum, fasting 129 mg/dL 30-200 HDL [...] 4.3-6.0 Encounters Code Encounter Date Provider Facility CPT-00007 Level 3 Est. Patient 10:36:40 CDT Andre Barreto MD [facility] CPT-33842 Level 4 Est. Patient 11:27:43 CDT Andre Barreto MD [facility] CPT-02166 Level 3 Est. 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 Patient 13:53:13 STARCH MANGLE TENDER Andre Barreto MD [facility] CPT-99582 Level 3 Est. Patient 09:16:12 CDT Andre Barreto MD [facility] CPT-15116 Level 3 Est. Patient 14:50:35 CDT Andre Barreto MD [facility] Procedures Code Procedure Name Date Entry Date Standard Description CPT-Cryo Cryotherapy 08:59:26 STARCH MANGLE TENDER CPT-Cryo Cryotherapy 08:46:02 CDT CPT-71724 Chest 2V Frontal and Lat 14:02:13 STARCH MANGLE TENDER
--- OUTSIDE RECORDS SUMMARY | 2018-03-16 20:16 | XMS REPORT | Clinical Summary ---
Author Author Admin, EDUARDO Organization [employer] Address Unknown Phone Unavailable Allergies, Adverse Reactions, [...] Coronary atherosclerosis of unspecified type of vessel, [place] or graft Obstructive sleep apnea 327.23 Active [...] malabsorption Osteoarthritis, knee, left 715.96 Active Andre Brareto MD Osteoarthrosis, unspecified whether generalized or localized, [...] AERO 2 puff BID BUDESONIDE- FORMOTEROL FUMARATE 68026232994 Active Andre Barreto MD Active PROAIR HFA 108 (90 BASE) MCG/ACT AERS 2 puffs four times a day as needed 2015 ALBUTEROL SULFATE 94767740816 Active Andre Barreto MD Active FLUOXETINE HCL 40 MG ORAL CAPS 1 po qd FLUOXETINE HCL 49502718316 Active Andre Barreto MD Active DETROL 2 MG ORAL TABS one tab daily TOLTERODINE TARTRATE 79057262474 Active Andre Barreto MD Active BENICAR HCT 40-25 MG TABS Take one by mouth daily OLMESARTAN MEDOXOMIL-HCTZ 70328036906 No Longer Active Andre Barreto MD Active [place]ART[place] POTASSIUM-HCTZ 100-25 MG TABS 1 po qd LOSARTAN POTASSIUM-HCTZ 92469244258 Active Andre Barreto MD Active BETAMETHASONE DIPROPIONATE 0.05 % OINT Apply to affected areas BID for up to 2 weeks BETAMETHASONE DIPROPIONATE 86901276032 No Longer Active Andre Barreto MD Active LIPITOR 40 MG TAB Take 1 tab by mouth daily ATORVASTATIN CALCIUM 52844105094 Active Andre Barreto MD Active ZOFRAN 4 MG TABS 1 po q6hr PRN Nausea ONDANSETRON HCL 34785897958 No Longer Active Andre Barreto MD Active CIPRO 500 MG TAB 1 tablet by mouth twice daily CIPROFLOXACIN HCL 96035311442 No Longer Active Andre Barreto MD Active SYMBICORT 160-4.5 MCG/ACT AERO 2 puffs inhaled bid BUDESONIDE- FORMOTEROL FUMARATE 06884872668 No Longer Active Andre Barreto MD Active LASIX 20 MG TAB 1 tablet by mouth daily PRN FUROSEMIDE 76337658638 Active Andre Barreto MD Active TOPROL XL 25 MG [id number] Take one by mouth daily METOPROLOL SUCCINATE 35986788377 Active Andre Barreto MD Active PLAVIX 75 MG TABS 1 tablet by mouth daily CLOPIDOGREL BISULFATE 47317192963 Active Andre Barreto MD Active NITROSTAT 0.4 MG SL TAB disolve 1 under tongue repeat if needed NITROGLYCERIN 56055907220 Active Andre Barreto MD Active DICLOFENAC SODIUM 75 MG TBEC 1 tablet by mouth twice daily DICLOFENAC SODIUM 03472893369 No Longer Active Andre Barreto MD Active PROZAC 40 MG CAPS 1 cap by mouth at bedtime FLUOXETINE HCL 66704787445 No Longer Active Anrde Barreto MD Active HYDROCODONE-ACETAMINOPHEN 5-325 MG TABS 1 po q 6hr PRN Pain HYDROCODONE-ACETAMINOPHEN 88683996959 No Longer Active Andre Barreto MD Active TRAMADOL HCL 50 MG TABS 2 po q 6 hrs prn TRAMADOL HCL 44957982090 Active David King BABY COUNSELOR Active AMBIEN 5 MG TABS 1 po a hs prn ZOLPIDEM TARTRATE 96807773689 Active Andre Barreto MD Active HYDROCODONE-ACETAMINOPHEN 5-325 MG TABS 1 po q 6hr PRN Pain HYDROCODONE-ACETAMINOPHEN 5-325 MG TABS 764841 HYDROCODONE-ACETAMINOPHEN Inactive PROZAC 40 MG CAPS 1 cap by mouth at bedtime PROZAC 40 MG CAPS 607981 FLUOXETINE HCL Inactive DICLOFENAC SODIUM 75 MG TBEC 1 tablet by mouth twice daily DICLOFENAC SODIUM 75 MG TBEC 294845 DICLOFENAC SODIUM Inactive SYMBICORT 160-4.5 MCG/ACT AERO 2 puffs inhaled bid SYMBICORT 160-4.5 MCG/ACT AERO BUDESONIDE-FORMOTEROL FUMARATE Inactive ZOFRAN 4 MG TABS 1 po q6hr PRN Nausea ZOFRAN 4 MG TABS 652915 ONDANSETRON HCL Inactive BETAMETHASONE DIPROPIONATE 0.05 % OINT Apply to affected areas BID for up to 2 weeks BETAMETHASONE DIPROPIONATE 0.05 % OINT 814949 BETAMETHASONE DIPROPIONATE Inactive BENICAR HCT 40-25 MG TABS Take one by mouth daily BENICAR HCT 40-25 MG TABS OLMESARTAN MEDOXOMIL-HCTZ Inactive CIPRO 500 MG TAB 1 tablet by mouth twice daily CIPRO 500 MG TAB 576591 CIPROFLOXACIN HCL Inactive Vital Signs Date Name Value Unit Range Description blood pressure, diastolic - 8462-4 71 mm[Hg] BP pat blood pressure, systolic - 8480-6 131 mm[Hg] BP sys pulse rate E&M - 8867-4 56 /min Heart rate temperature E&M 96.5 [degF] Body temperature weight E&M - 3141-9 281 [lb_av] Weight Measured Encounters Code Encounter Date Provider Facility CPT-80721 Level 4 Est. Patient 15:24:17 CDT Andre Barreto MD [facility] CPT-75334 Level 3 Est. Patient 10:36:40 CDT Andre Barreto MD [facility] CPT-40089 Level 4 Est. Patient 11:27:43 CDT Andre Barreto MD [facility] CPT-35082 Level 3 Est. Patient 10:57:31 MACHINE GREASER Andre Barreto MD [facility] CPT-49126 Level 3 Est. Patient 13:53:13 MACHINE GREASER Andre Barreto MD [facility] CPT-10172 Level 3 Est. Patient 09:16:12 CDT Andre Barreto MD [facility] CPT-53423 Level 3 Est. Patient 14:50:35 CDT Andre Barreto MD [facility] Procedures Code Procedure Name Date Entry Date Standard Description CPT-Cryo Cryotherapy 08:59:26 MACHINE GREASER CPT-Cryo Cryotherapy 08:46:02 CDT CPT-68072 Chest 2V Frontal and Lat 14:02:13 MACHINE GREASER
--- OUTSIDE RECORDS SUMMARY | 2018-03-16 20:16 | XMS REPORT | Clinical Summary ---
Author Author Admin, EDUARDO Organization [employer] Address Unknown Phone Unavailable Allergies, Adverse Reactions, [...] Coronary atherosclerosis of unspecified type of vessel, [place] or graft Obstructive sleep apnea 327.23 Active [...] MG TABS 1 po qHS ATORVASTATIN CALCIUM 30587415910 Active Andre Barreto MD Active SYMBICORT 160-4.5 MCG/ACT AERO 2 puff BID BUDESONIDE- FORMOTEROL FUMARATE 22084183689 Active Andre Barreto MD Active PROAIR HFA 108 (90 BASE) MCG/ACT AERS 2 puffs four times a day as needed 2015 ALBUTEROL SULFATE 32069200706 Active Andre Barreto MD Active FLUOXETINE HCL 40 MG ORAL CAPS 1 po qd FLUOXETINE HCL 16594250844 Active Andre Barreto MD Active DETROL 2 MG ORAL TABS one tab daily TOLTERODINE TARTRATE 83842424386 Active Andre Barreto MD Active BENICAR HCT 40-25 MG TABS Take one by mouth daily OLMESARTAN MEDOXOMIL-HCTZ 38503576992 No Longer Active Andre Barreto MD Active [place] POTASSIUM-HCTZ 100-25 MG TABS 1 po qd LOSARTAN POTASSIUM-HCTZ 20389924574 Active Andre Barreto MD Active BETAMETHASONE DIPROPIONATE 0.05 % OINT Apply to affected areas BID for up to 2 weeks BETAMETHASONE DIPROPIONATE 39816116687 No Longer Active Andre Barreto MD Active ZOFRAN 4 MG TABS 1 po q6hr PRN Nausea ONDANSETRON HCL 89922568866 No Longer Active Andre Barreto MD Active CIPRO 500 MG TAB 1 tablet by mouth twice daily CIPROFLOXACIN HCL 30884671626 No Longer Active Andre Barreto MD Active SYMBICORT 160-4.5 MCG/ACT AERO 2 puffs inhaled bid BUDESONIDE- FORMOTEROL FUMARATE 26046037645 No Longer Active Andre Barreto MD Active LASIX 20 MG TAB 1 tablet by mouth daily PRN FUROSEMIDE 82076729832 Active Andre Barreto MD Active TOPROL XL 25 MG [id number] Take one by mouth daily METOPROLOL SUCCINATE 09306093126 Active Andre Barreto MD Active PLAVIX 75 MG TABS 1 tablet by mouth daily CLOPIDOGREL BISULFATE 21094693003 Active Andre Barreto MD Active NITROSTAT 0.4 MG SL TAB disolve 1 under tongue repeat if needed NITROGLYCERIN 11476100086 Active Andre Barreto MD Active DICLOFENAC SODIUM 75 MG TBEC 1 tablet by mouth twice daily DICLOFENAC SODIUM 93106879071 No Longer Active Andre Barreto MD Active PROZAC 40 MG CAPS 1 cap by mouth at bedtime FLUOXETINE HCL 16338048454 No Longer Active Andre Barreto MD Active HYDROCODONE-ACETAMINOPHEN 5-325 MG TABS 1 po q 6hr PRN Pain HYDROCODONE-ACETAMINOPHEN 77159415796 No Longer Active Andre Barreto MD Active TRAMADOL HCL 50 MG TABS 2 po q 6 hrs prn TRAMADOL HCL 47003917901 Active David King PLATE AND WELD INSPECTOR Active AMBIEN 5 MG TABS 1 po a hs prn ZOLPIDEM TARTRATE 26214847021 Active Andre Barreto MD Active HYDROCODONE-ACETAMINOPHEN 5-325 MG TABS 1 po q 6hr PRN Pain HYDROCODONE-ACETAMINOPHEN 5-325 MG TABS 372446 HYDROCODONE-ACETAMINOPHEN Inactive PROZAC 40 MG CAPS 1 cap by mouth at bedtime PROZAC 40 MG CAPS 842336 FLUOXETINE HCL Inactive DICLOFENAC SODIUM 75 MG TBEC 1 tablet by mouth twice daily DICLOFENAC SODIUM 75 MG TBEC 885147 DICLOFENAC SODIUM Inactive SYMBICORT 160-4.5 MCG/ACT AERO 2 puffs inhaled bid SYMBICORT 160-4.5 MCG/ACT AERO BUDESONIDE-FORMOTEROL FUMARATE Inactive ZOFRAN 4 MG TABS 1 po q6hr PRN Nausea ZOFRAN 4 MG TABS 065429 ONDANSETRON HCL Inactive BETAMETHASONE DIPROPIONATE 0.05 % OINT Apply to affected areas BID for up to 2 weeks BETAMETHASONE DIPROPIONATE 0.05 % OINT 714596 BETAMETHASONE DIPROPIONATE Inactive BENICAR HCT 40-25 MG TABS Take one by mouth daily BENICAR HCT 40-25 MG TABS OLMESARTAN MEDOXOMIL-HCTZ Inactive CIPRO 500 MG TAB 1 tablet by mouth twice daily CIPRO 500 MG TAB 443669 CIPROFLOXACIN HCL Inactive Advance Directives Directive Description [...] ... - Chemistry sodium, serum 140 mmol/L 619-277 7586/06/28 carbon dioxide, venous blood 32.4 mmol/L 21.0-32.0 potassium, serum 4.0 mmol/L 3.5-5.2 chloride, serum 101 mmol/L 98-107 blood glucose 108 mg/dL 65-110 urea nitrogen, blood 20 mg/dL 7-18 creatinine, serum 0.98 mg/dL 0.55-1.30 alanine aminotransferase (SGPT), serum 44 U/L 12-78 aspartate aminotransferase (SGOT), serum 27 U/L 15-37 calcium, serum 9.4 mg/dL 8.5-10.1 bilirubin, serum, total 0.30 mg/dL 0.00-1.00 cholesterol, serum 264 mg/dL 332-549 7968/06/28 triglyceride, serum, fasting 146 mg/dL 30-200 HDL [...] 0-19 Encounters Code Encounter Date Provider Facility CPT-72675 Level 4 Est. Patient 15:24:17 CDT Andre Barreto MD [facility] CPT-27955 Level 3 Est. Patient 10:36:40 CDT Andre Barreto MD [facility] CPT-70422 Level 4 Est. Patient 11:27:43 CDT Andre Barreto MD [facility] CPT-79371 Level 3 Est. Patient 10:57:31 PR SPECIALIST Andre Barreto MD [facility] CPT-97689 Level 3 Est. Patient 13:53:13 PR SPECIALIST Andre Barreto MD [facility] CPT-25981 Level 3 Est. Patient 09:16:12 CDT Andre Barreto MD [facility] CPT-82100 Level 3 Est. Patient 14:50:35 CDT Andre Barreto MD [facility] Procedures Code Procedure Name Date Entry Date Standard Description CPT-G0438 Initial Annual Wellness Exam 13:29:06 CDT CPT-G0009 Administration of Pneumococcal Vaccine 13:26:57 CDT CPT-07202 Prevnar 13 Intramuscular Suspension 13:26:56 CDT 08/19 CPT-35283 Bone Density - XRAY USE ONLY 09:30:16 CDT CPT-Cryo Cryotherapy 08:59:26 PR SPECIALIST CPT-Cryo Cryotherapy 08:46:02 CDT CPT-15737 Chest 2V Frontal and Lat 14:02:13 PR SPECIALIST
[2018-03-16] MEDS: RT-ALBUTEROL SULF 2.5 MG/3 ML PRE-MIX VIAL INH SCH (20:17)
[2018-03-16] MEDS: RT-ADVAIR HFA 115/21 MCG PER PUFF IH SCH (20:17)
--- OUTSIDE RECORDS SUMMARY | 2018-03-16 20:17 | XMS REPORT | Clinical Summary ---
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 dependence on machines, supplemental oxygen Osteopenia [...] ORAL TABS 1 po qd TOLTERODINE TARTRATE 61158428768 Active Andre Barreto MD Active NITROGLYCERIN 0.4 MG SL SUBL 1 SL q5min PRN Chest pain up to 3 doses NITROGLYCERIN 86774077876 Active Andre Barreto MD Active TOPROL XL 50 MG ORAL [id number]-EFA 1 po qd METOPROLOL SUCCINATE 69567073844 Active Andre Barreto MD Active PLAVIX 75 MG TABS 1 po qd CLOPIDOGREL BISULFATE 97262546910 Active Andre Barreto MD Active LASIX 20 MG TAB 1 po qd PRN Edema FUROSEMIDE 74185865699 Bar Barreto MD Active ATORVASTATIN CALCIUM 80 MG TABS 1 po qHS ATORVASTATIN CALCIUM 95685382967 Active Andre Barreto MD Active SYMBICORT 160-4.5 MCG/ACT AERO 2 puff BID BUDESONIDE- FORMOTEROL FUMARATE 35498531957 Active Andre Barreto MD Active PROAIR HFA 108 (90 BASE) MCG/ACT AERS 2 puffs four times a day as needed 2015 ALBUTEROL SULFATE 45090859642 Active Andre Barreto MD Active FLUOXETINE HCL 40 MG ORAL CAPS 1 po qd FLUOXETINE HCL 91438341798 Active Andre Barreto MD Active BENICAR HCT 40-25 MG TABS Take one by mouth daily OLMESARTAN MEDOXOMIL-HCTZ 63492299835 No Longer Active Andre Barreto MD Active LOSARTAN POTASSIUM-HCTZ 100-25 MG TABS 1 po qd LOSARTAN POTASSIUM-HCTZ 99539295582 Active Andre Barreto MD Active BETAMETHASONE DIPROPIONATE 0.05 % OINT Apply to affected areas BID for up to 2 weeks BETAMETHASONE DIPROPIONATE 75405955214 No Longer Active Andre Barreto MD Active ZOFRAN 4 MG TABS 1 po q6hr PRN Nausea ONDANSETRON HCL 43532913914 No Longer Active Andre Barreto MD Active CIPRO 500 MG TAB 1 tablet by mouth twice daily CIPROFLOXACIN HCL 74240377239 No Longer Active Andre Barreto MD Active SYMBICORT 160-4.5 MCG/ACT AERO 2 puffs inhaled bid BUDESONIDE- FORMOTEROL FUMARATE 83841402523 No Longer Active Andre Barreto MD Active DICLOFENAC SODIUM 75 MG TBEC 1 tablet by mouth twice daily DICLOFENAC SODIUM 90125668321 No Longer Active Andre Barreto MD Active PROZAC 40 MG CAPS 1 cap by mouth at bedtime FLUOXETINE HCL 50026379239 No Longer Active Andre Barreto MD Active HYDROCODONE-ACETAMINOPHEN 5-325 MG TABS 1 po q 6hr PRN Pain HYDROCODONE-ACETAMINOPHEN 51548714322 No Longer Active Andre Barreto MD Active TRAMADOL HCL 50 MG TABS 2 po q 6 hrs prn TRAMADOL HCL 50022007395 Active Andre Barreto MD Active AMBIEN 5 MG TABS 1 po a hs prn ZOLPIDEM TARTRATE 57134012551 Active Andre Barreto MD Active HYDROCODONE-ACETAMINOPHEN 5-325 MG TABS 1 po q 6hr PRN Pain HYDROCODONE-ACETAMINOPHEN 5-325 MG TABS 233129 HYDROCODONE-ACETAMINOPHEN Inactive PROZAC 40 MG CAPS 1 cap by mouth at bedtime PROZAC 40 MG CAPS 919757 FLUOXETINE HCL Inactive DICLOFENAC SODIUM 75 MG TBEC 1 tablet by mouth twice daily DICLOFENAC SODIUM 75 MG TBEC 119183 DICLOFENAC SODIUM Inactive SYMBICORT 160-4.5 MCG/ACT AERO 2 puffs inhaled bid SYMBICORT 160-4.5 MCG/ACT AERO BUDESONIDE-FORMOTEROL FUMARATE Inactive ZOFRAN 4 MG TABS 1 po q6hr PRN Nausea ZOFRAN 4 MG TABS 538801 ONDANSETRON HCL Inactive BETAMETHASONE DIPROPIONATE 0.05 % OINT Apply to affected areas BID for up to 2 weeks BETAMETHASONE DIPROPIONATE 0.05 % OINT 120785 BETAMETHASONE DIPROPIONATE Inactive BENICAR HCT 40-25 MG TABS Take one by mouth daily BENICAR HCT 40-25 MG TABS 065969 OLMESARTAN MEDOXOMIL-HCTZ Inactive CIPRO 500 MG TAB 1 tablet by mouth twice daily CIPRO 500 MG TAB 345884 CIPROFLOXACIN HCL Inactive Advance Directives Directive Description [...] ... - Chemistry sodium, serum 140 mmol/L 474-457 9112/06/28 carbon dioxide, venous blood 32.4 mmol/L 21.0-32.0 potassium, serum 4.0 mmol/L 3.5-5.2 chloride, serum 101 mmol/L 98-107 blood glucose 108 mg/dL 65-110 urea nitrogen, blood 20 mg/dL 7-18 creatinine, serum 0.98 mg/dL 0.55-1.30 alanine aminotransferase (SGPT), serum 44 U/L 12-78 aspartate aminotransferase (SGOT), serum 27 U/L 15-37 calcium, serum 9.4 mg/dL 8.5-10.1 bilirubin, serum, total 0.30 mg/dL 0.00-1.00 cholesterol, serum 264 mg/dL 906-465 0067/06/28 triglyceride, serum, fasting 146 mg/dL 30-200 HDL [...] Panel - Chemistry sodium, serum 143 mmol/L 338-658 3160/09/27 carbon dioxide, venous blood 30.1 mmol/L 21.0-32.0 potassium, serum 3.9 mmol/L 3.5-5.2 chloride, serum 107 mmol/L 98-107 blood glucose 114 mg/dL 65-110 urea nitrogen, blood 14 mg/dL 7-18 creatinine, serum 0.79 mg/dL 0.55-1.30 alanine aminotransferase (SGPT), serum 44 U/L 12-78 aspartate aminotransferase (SGOT), serum 25 U/L 15-37 calcium, serum 8.5 mg/dL 8.5-10.1 bilirubin, serum, total 0.30 mg/dL 0.00-1.00 cholesterol, serum 152 mg/dL 921-596 1488/09/27 triglyceride, serum, fasting 85 mg/dL 30-200 HDL cholesterol, serum 59 mg/dL 32-96 LDL cholesterol, serum 76 mg/dL 0-130 Encounters Code Encounter Date Provider Facility CPT-49438 Level 4 Est. Patient 11:53:39 SWING DRIVER Andre Barreto MD [facility] CPT-34733 Level 4 Est. Patient 14:21:31 CDT Andre Barreto MD [facility] CPT-75051 Level 4 Est. Patient 15:24:17 CDT Andre Barreto MD [facility] CPT-71662 Level 3 Est. Patient 10:36:40 CDT Andre Barreto MD [facility] CPT-19157 Level 4 Est. Patient 11:27:43 CDT Andre Barreto MD [facility] CPT-49346 Level 3 Est. Patient 10:57:31 SWING DRIVER Andre Barreto MD [facility] CPT-91370 Level 3 Est. Patient 13:53:13 SWING DRIVER Andre Barreto MD [facility] CPT-40728 Level 3 Est. Patient 09:16:12 CDT Andre Barreto MD [facility] CPT-58360 Level 3 Est. Patient 14:50:35 CDT Andre Barreto MD [facility] Procedures Code Procedure Name Date Entry Date Standard Description CPT-60260 Venipuncture Draw Fee 14:11:36 CDT CPT-53768 Lipid - LAB USE ONLY 14:11:36 CDT CPT-68924 CMP - LAB USE ONLY 14:11:36 CDT CPT-G0438 Initial Annual Wellness Exam 13:29:06 CDT CPT-G0009 Administration of Pneumococcal Vaccine 13:26:57 CDT CPT-08748 Prevnar 13 Intramuscular Suspension 13:26:56 CDT 08/19 CPT-00511 Bone Density - XRAY USE ONLY 09:30:16 CDT CPT-Cryo Cryotherapy 08:59:26 SWING DRIVER CPT-Cryo Cryotherapy 08:46:02 CDT CPT-32174 Chest 2V Frontal and Lat 14:02:13 SWING DRIVER
--- OUTSIDE RECORDS SUMMARY | 2018-03-16 20:18 | XMS REPORT | Clinical Summary ---
Author Author Admin, EDUARDO Organization [employer] Address Unknown Phone Unavailable Allergies, Adverse Reactions, [...] AERO 2 puff BID BUDESONIDE- FORMOTEROL FUMARATE 66088777984 Active Andre Barreto MD Active PROAIR HFA 108 (90 BASE) MCG/ACT AERS 2 puffs four times a day as needed 2015 ALBUTEROL SULFATE 07575814996 Active Andre Barreto MD Active FLUOXETINE HCL 40 MG ORAL CAPS 1 po qd FLUOXETINE HCL 38456472041 Active Andre Barreto MD Active DETROL 2 MG ORAL TABS one tab daily TOLTERODINE TARTRATE 76058243880 Active Andre Barreto MD Active BENICAR HCT 40-25 MG TABS Take one by mouth daily OLMESARTAN MEDOXOMIL-HCTZ 17061427987 No Longer Active Andre Barreto MD Active LOSARTAN POTASSIUM-HCTZ 100-25 MG TABS 1 po qd LOSARTAN POTASSIUM-HCTZ 71034285868 Active Andre Barreto MD Active BETAMETHASONE DIPROPIONATE 0.05 % OINT Apply to affected areas BID for up to 2 weeks BETAMETHASONE DIPROPIONATE 11608574580 No Longer Active Andre Barreto MD Active LIPITOR 40 MG TAB Take 1 tab by mouth daily ATORVASTATIN CALCIUM 34030922990 Active Andre Barreto MD Active ZOFRAN 4 MG TABS 1 po q6hr PRN Nausea ONDANSETRON HCL 07425358284 No Longer Active Andre Barreto MD Active CIPRO 500 MG TAB 1 tablet by mouth twice daily CIPROFLOXACIN HCL 34014438949 No Longer Active Andre Barreto MD Active SYMBICORT 160-4.5 MCG/ACT AERO 2 puffs inhaled bid BUDESONIDE- FORMOTEROL FUMARATE 46405996768 No Longer Active Andre Barreto MD Active LASIX 20 MG TAB 1 tablet by mouth daily PRN FUROSEMIDE 83109376775 Active Andre Barreto MD Active TOPROL XL 25 MG [id number]-MLH Take one by mouth daily METOPROLOL SUCCINATE 18057407853 Active Andre Barreto MD Active PLAVIX 75 MG TABS 1 tablet by mouth daily CLOPIDOGREL BISULFATE 13140066409 Active Andre Barreto MD Active NITROSTAT 0.4 MG SL TAB disolve 1 under tongue repeat if needed NITROGLYCERIN 14404010885 Active Andre Barreto MD Active DICLOFENAC SODIUM 75 MG TBEC 1 tablet by mouth twice daily DICLOFENAC SODIUM 75674907480 No Longer Active Andre Barreto MD Active PROZAC 40 MG CAPS 1 cap by mouth at bedtime FLUOXETINE HCL 35567630098 No Longer Active Andre Barreto MD Active HYDROCODONE-ACETAMINOPHEN 5-325 MG TABS 1 po q 6hr PRN Pain HYDROCODONE-ACETAMINOPHEN 81822723081 No Longer Active Andre Barreto MD Active TRAMADOL HCL 50 MG TABS 2 po q 6 hrs prn TRAMADOL HCL 32489326217 Active David King UNDERWRITER SOLICITATION DIRECTOR Active AMBIEN 5 MG TABS 1 po a hs prn ZOLPIDEM TARTRATE 96998653934 Active Andre Barreto MD Active HYDROCODONE-ACETAMINOPHEN 5-325 MG TABS 1 po q 6hr PRN Pain HYDROCODONE-ACETAMINOPHEN 5-325 MG TABS 875837 HYDROCODONE-ACETAMINOPHEN Inactive PROZAC 40 MG CAPS 1 cap by mouth at bedtime PROZAC 40 MG CAPS 742937 FLUOXETINE HCL Inactive DICLOFENAC SODIUM 75 MG TBEC 1 tablet by mouth twice daily DICLOFENAC SODIUM 75 MG TBEC 510212 DICLOFENAC SODIUM Inactive SYMBICORT 160-4.5 MCG/ACT AERO 2 puffs inhaled bid SYMBICORT 160-4.5 MCG/ACT AERO BUDESONIDE-FORMOTEROL FUMARATE Inactive ZOFRAN 4 MG TABS 1 po q6hr PRN Nausea ZOFRAN 4 MG TABS 512043 ONDANSETRON HCL Inactive BETAMETHASONE DIPROPIONATE 0.05 % OINT Apply to affected areas BID for up to 2 weeks BETAMETHASONE DIPROPIONATE 0.05 % OINT 025010 BETAMETHASONE DIPROPIONATE Inactive BENICAR HCT 40-25 MG TABS Take one by mouth daily BENICAR HCT 40-25 MG TABS OLMESARTAN MEDOXOMIL-HCTZ Inactive CIPRO 500 MG TAB 1 tablet by mouth twice daily CIPRO 500 MG TAB 636778 CIPROFLOXACIN HCL Inactive Vital Signs Date Name Value Unit Range Description blood pressure, diastolic - 8462-4 71 mm[Hg] BP pat blood pressure, systolic - 8480-6 131 mm[Hg] BP sys pulse rate E&M - 8867-4 56 /min Heart rate temperature E&M 96.5 [degF] Body temperature weight E&M - 3141-9 281 [lb_av] Weight Measured Encounters Code Encounter Date Provider Facility CPT-06346 Level 4 Est. Patient 15:24:17 CDT Andre Barreto MD [facility] CPT-01851 Level 3 Est. Patient 10:36:40 CDT Andre Barreto MD [facility] CPT-61934 Level 4 Est. Patient 11:27:43 CDT Andre Barreto MD [facility] CPT-42266 Level 3 Est. Patient 10:57:31 WINDER FIXER Andre Barreto MD [facility] CPT-86501 Level 3 Est. Patient 13:53:13 WINDER FIXER Andre Barreto MD [facility] CPT-75712 Level 3 Est. Patient 09:16:12 CDT Andre Barreto MD [facility] CPT-20032 Level 3 Est. Patient 14:50:35 CDT Andre Barreto MD [facility] Procedures Code Procedure Name Date Entry Date Standard Description CPT-Cryo Cryotherapy 08:59:26 WINDER FIXER CPT-Cryo Cryotherapy 08:46:02 CDT CPT-33463 Chest 2V Frontal and Lat 14:02:13 WINDER FIXER
--- OUTSIDE RECORDS SUMMARY | 2018-03-16 20:19 | XMS REPORT | Clinical Summary ---
Author Author Admin, E Organization [employer] [facility] Address Unknown Phone Unavailable Allergies, Adverse [...] Coronary atherosclerosis of unspecified type of vessel, [place] or graft Obstructive sleep apnea 327.23 Active [...] Elevated blood sugar 790.29 Inactive Marcelle eKy RMIsabella Other abnormal glucose Glucose intolerance 271.3 [...] 1 daily for 3 days 03/27 PREDNISONE 32668740358 Active Solitario Howe MD Active BENZONATATE 200 MG ORAL CAPSULE 1 three times a day as needed for cough 03/27 BENZONATATE 09907647331 Active Solitario Howe MD Active ZITHROMAX Z-NEVAEH 250 MG ORAL TABLET 2 today and then 1 daily for 4 days 03/27 AZITHROMYCIN 51052930995 Active Solitario Howe MD Active ATORVASTATIN CALCIUM 40 MG ORAL TABLET 1 po qHS ATORVASTATIN CALCIUM 29067533564 Active Marcelle Key RMA Active CLOPIDOGREL BISULFATE 75 MG ORAL TABLET 1 po qd CLOPIDOGREL BISULFATE 55835398900 Active Andre Barreto MD Active FUROSEMIDE 20 MG ORAL TABLET 1 po qd PRN Edema FUROSEMIDE 90635434418 Active Andre Barreto MD Active PROAIR HFA 108 (90 Base) MCG/ACT INHALATION AEROSOL SOLUTION 2 puffs q4hr PRN Shortness of air/Wheezing ALBUTEROL SULFATE 23857995243 Active Andre Barreto MD Active ATORVASTATIN CALCIUM 80 MG ORAL TABLET 1 po qHS ATORVASTATIN CALCIUM 02123479650 No Longer Active Andre Barreto MD Active AMBIEN 5 MG ORAL TABLET 1 po qHS PRN Insomnia ZOLPIDEM TARTRATE 00469775102 Active Andre Barreto MD Active DETROL 2 MG ORAL TABLET 1 po qd TOLTERODINE TARTRATE 35752941635 Active Andre Barreto MD Active NITROGLYCERIN 0.4 MG SUBLINGUAL TABLET SUBLINGUAL 1 SL q5min PRN Chest pain up to 3 doses NITROGLYCERIN 06612771541 Active Andre Barreto MD Active TOPROL XL 50 MG ORAL TABLET EXTENDED RELEASE 24 HOUR 1 po qd METOPROLOL SUCCINATE 31554115213 Active Andre Barreto MD Active SYMBICORT 160-4.5 MCG/ACT INHALATION AEROSOL 2 puff BID BUDESONIDE-FORMOTEROL FUMARATE 46778247378 Active Cayla Flanagan [facility] Active FLUOXETINE HCL 40 MG ORAL CAPSULE 1 po qd FLUOXETINE HCL 66103954116 Active Andre Barreto MD Active BENICAR HCT 40-25 MG ORAL TABLET Take one by mouth daily OLMESARTAN MEDOXOMIL-HCTZ 40781027996 No Longer Active Andre Barreto MD Active LOSARTAN POTASSIUM-HCTZ 100-25 MG ORAL TABLET 1 po qd LOSARTAN POTASSIUM-HCTZ 69234136842 Active Andre Barreto MD Active BETAMETHASONE DIPROPIONATE 0.05 % EXTERNAL OINTMENT Apply to affected areas BID for up to 2 weeks BETAMETHASONE DIPROPIONATE 80034292640 No Longer Active Andre Barreto MD Active ZOFRAN 4 MG ORAL TABLET 1 po q6hr PRN Nausea ONDANSETRON HCL 81636989618 No Longer Active Andre Barreto MD Active CIPRO 500 MG ORAL TABLET 1 tablet by mouth twice daily CIPROFLOXACIN HCL 22671083781 No Longer Active Andre Barreto MD Active SYMBICORT 160-4.5 MCG/ACT INHALATION AEROSOL 2 puffs inhaled bid BUDESONIDE-FORMOTEROL FUMARATE 58378490605 No Longer Active Andre Barreto MD Active DICLOFENAC SODIUM 75 MG ORAL TABLET DELAYED RELEASE 1 tablet by mouth twice daily DICLOFENAC SODIUM 32342384725 No Longer Active Andre Barreto MD Active PROZAC 40 MG ORAL CAPSULE 1 cap by mouth at bedtime FLUOXETINE HCL 59053491202 No Longer Active Andre Barreto MD Active HYDROCODONE-ACETAMINOPHEN 5-325 MG ORAL TABLET 1 po q 6hr PRN Pain HYDROCODONE-ACETAMINOPHEN 85911122331 No Longer Active Andre Barreto MD Active TRAMADOL HCL 50 MG ORAL TABLET 2 po q 6 hrs prn TRAMADOL HCL 17384065552 Active Andre Barreto MD Active HYDROCODONE-ACETAMINOPHEN 5-325 MG ORAL TABLET 1 po q 6hr PRN Pain HYDROCODONE-ACETAMINOPHEN 5-325 MG ORAL TABLET 102585 HYDROCODONE- ACETAMINOPHEN Inactive PROZAC 40 MG ORAL CAPSULE 1 cap by mouth at bedtime PROZAC 40 MG ORAL CAPSULE 229161 FLUOXETINE HCL Inactive DICLOFENAC SODIUM 75 MG ORAL TABLET DELAYED RELEASE 1 tablet by mouth twice daily DICLOFENAC SODIUM 75 MG ORAL TABLET DELAYED RELEASE 502091 DICLOFENAC SODIUM Inactive SYMBICORT 160-4.5 MCG/ACT INHALATION AEROSOL 2 puffs inhaled bid SYMBICORT 160-4.5 MCG/ACT INHALATION AEROSOL BUDESONIDE-FORMOTEROL FUMARATE Inactive ZOFRAN 4 MG ORAL TABLET 1 po q6hr PRN Nausea ZOFRAN 4 MG ORAL TABLET 527558 ONDANSETRON HCL Inactive BETAMETHASONE DIPROPIONATE 0.05 % EXTERNAL OINTMENT Apply to affected areas BID for up to 2 weeks BETAMETHASONE DIPROPIONATE 0.05 % EXTERNAL OINTMENT 582769 BETAMETHASONE DIPROPIONATE Inactive BENICAR HCT 40-25 MG ORAL TABLET Take one by mouth daily BENICAR HCT 40-25 MG ORAL TABLET 066845 OLMESARTAN MEDOXOMIL-HCTZ Inactive ATORVASTATIN CALCIUM 80 MG ORAL TABLET 1 po qHS ATORVASTATIN CALCIUM 80 MG ORAL TABLET 097061 ATORVASTATIN CALCIUM Inactive CIPRO 500 MG ORAL TABLET 1 tablet by mouth twice daily CIPRO 500 MG ORAL TABLET 112841 CIPROFLOXACIN HCL Inactive Advance Directives Directive Description [...] 6.2 % 4.3-6.0 cholesterol, serum 229 mg/dL 435-584 4851/07/24 triglyceride, serum, fasting 106 mg/dL 30-200 HDL cholesterol, serum 60 mg/dL 32-60 LDL cholesterol, serum 148 mg/dL 0-130 sodium, serum 139 mmol/L 940-898 9475/07/24 carbon dioxide, venous blood 34.8 mmol/L 21.0-32.0 [...] Panel - Chemistry cholesterol, serum 275 mg/dL 604-766 0931/11/07 triglyceride, serum, fasting 166 mg/dL 30-200 HDL cholesterol, serum 62 mg/dL 32-60 LDL cholesterol, serum 180 mg/dL 0-130 sodium, serum 141 mmol/L 248-324 5792/11/07 carbon dioxide, venous blood 26.3 mmol/L 21.0-32.0 [...] 0-19 Encounters Code Encounter Date Provider Facility CPT-90751 Level 3 Est. Patient 13:01:07 SUPERINTENDENT RECREATION Solitario Howe MD [facility] CPT-64008 Level 4 Est. Patient 10:26:48 SUPERINTENDENT RECREATION Andre Barreto MD [facility] CPT-46712 Level 4 Est. Patient 09:45:06 CDT Andre Barreto MD [facility] CPT-03162 Level 4 Est. Patient 11:53:39 SUPERINTENDENT RECREATION Andre Barreto MD [facility] CPT-82185 Level 4 Est. Patient 14:21:31 CDT Andre Barreto MD [facility] CPT-51675 Level 4 Est. Patient 15:24:17 CDT Andre Barreto MD [facility] CPT-51842 Level 3 Est. Patient 10:36:40 CDT Andre Barreto MD [facility] CPT-96772 Level 4 Est. Patient 11:27:43 CDT Andre Barreto MD [facility] CPT-62010 Level 3 Est. Patient 10:57:31 SUPERINTENDENT RECREATION Andre Barreto MD [facility] CPT-30556 Level 3 Est. Patient 13:53:13 SUPERINTENDENT RECREATION Andre Barreto MD [facility] CPT-60672 Level 3 Est. Patient 09:16:12 CDT Andre Barreto MD [facility] CPT-85731 Level 3 Est. Patient 14:50:35 CDT Andre Barreto MD [facility] Procedures Code Procedure Name Date Entry Date Standard Description CPT-51783 First Vx - Ix admin for Medicare patients 13:56:44 SUPERINTENDENT RECREATION CPT-21859 Zostavax Subcutaneous Solution Reconstituted 28907 UNT/0.65ML 12/22 13:56:44 SUPERINTENDENT RECREATION CPT-G0009 Administration of Pneumococcal Vaccine 10:12:50 CDT CPT-91786 Pneumovax 23 Injection Injectable 25 MCG/0.5ML 10:12:50 CDT CPT-G0439 Subsequent Annual Wellness Exam 09:49:25 CDT CPT-70030 First Vx - Ix admin for Medicare patients 17:55:11 SUPERINTENDENT RECREATION CPT-42809 Fluzone High-Dose Intramuscular Suspension 17:55:11 SUPERINTENDENT RECREATION CPT-03289 Venipuncture Draw Fee 14:11:36 CDT CPT-88647 Lipid - LAB USE ONLY 14:11:36 CDT CPT-02156 CMP - LAB USE ONLY 14:11:36 CDT CPT-G0438 Initial Annual Wellness Exam 13:29:06 CDT CPT-G0009 Administration of Pneumococcal Vaccine 13:26:57 CDT CPT-16010 Prevnar 13 Intramuscular Suspension 13:26:56 CDT 08/19 CPT-26502 Bone Density - XRAY USE ONLY 09:30:16 CDT CPT-Cryo Cryotherapy 08:59:26 SUPERINTENDENT RECREATION CPT-Cryo Cryotherapy 08:46:02 CDT CPT-67734 Chest 2V Frontal and Lat 14:02:13 SUPERINTENDENT RECREATION
--- OUTSIDE RECORDS SUMMARY | 2018-03-16 20:20 | XMS REPORT | Clinical Summary ---
Author Author Admin, E Organization [employer] [facility] Address Unknown Phone Unavailable Allergies, Adverse [...] Coronary atherosclerosis of unspecified type of vessel, [place] or graft Obstructive sleep apnea 327.23 Active [...] MG TABS 1 po qHS ATORVASTATIN CALCIUM 18928577603 No Longer Active Andre Barreto MD Active AMBIEN 5 MG TABS 1 po qHS PRN Insomnia ZOLPIDEM TARTRATE 62354764896 Active Andre Barreto MD Active DETROL 2 MG ORAL TABS 1 po qd TOLTERODINE TARTRATE 42033859370 Active Andre Barreto MD Active NITROGLYCERIN 0.4 MG SL SUBL 1 SL q5min PRN Chest pain up to 3 doses NITROGLYCERIN 17986953756 Active Andre Barreto MD Active TOPROL XL 50 MG ORAL [id number] 1 po qd METOPROLOL SUCCINATE 54584639362 Active Andre Barreto MD Active PLAVIX 75 MG TABS 1 po qd CLOPIDOGREL BISULFATE 04503211263 Active Andre Barreto MD Active LASIX 20 MG TAB 1 po qd PRN Edema FUROSEMIDE 62425008580 Active Andre Barreto MD Active SYMBICORT 160-4.5 MCG/ACT AERO 2 puff BID BUDESONIDE- FORMOTEROL FUMARATE 50380825597 Active Cayla VERA Active PROAIR HFA 108 (90 BASE) MCG/ACT AERS 2 puffs four times a day as needed 2015 ALBUTEROL SULFATE 69922816539 Active Andre Barreto MD Active FLUOXETINE HCL 40 MG ORAL CAPS 1 po qd FLUOXETINE HCL 49499710411 Active Andre Barreto MD Active BENICAR HCT 40-25 MG TABS Take one by mouth daily OLMESARTAN MEDOXOMIL-HCTZ 05988404088 No Longer Active Andre Barreto MD Active LOSARTAN POTASSIUM-HCTZ 100-25 MG TABS 1 po qd LOSARTAN POTASSIUM-HCTZ 33371301970 Active Andre Barreto MD Active BETAMETHASONE DIPROPIONATE 0.05 % OINT Apply to affected areas BID for up to 2 weeks BETAMETHASONE DIPROPIONATE 08483338232 No Longer Active Andre Barreto MD Active ZOFRAN 4 MG TABS 1 po q6hr PRN Nausea ONDANSETRON HCL 67487240681 No Longer Active Andre Barreto MD Active CIPRO 500 MG TAB 1 tablet by mouth twice daily CIPROFLOXACIN HCL 58143281820 No Longer Active Andre Barreto MD Active SYMBICORT 160-4.5 MCG/ACT AERO 2 puffs inhaled bid BUDESONIDE- FORMOTEROL FUMARATE 35304821137 No Longer Active Andre Barreto MD Active DICLOFENAC SODIUM 75 MG TBEC 1 tablet by mouth twice daily DICLOFENAC SODIUM 22064845156 No Longer Active Andre Barreto MD Active PROZAC 40 MG CAPS 1 cap by mouth at bedtime FLUOXETINE HCL 88011370214 No Longer Active Andre Barreto MD Active HYDROCODONE-ACETAMINOPHEN 5-325 MG TABS 1 po q 6hr PRN Pain HYDROCODONE-ACETAMINOPHEN 05663579478 No Longer Active Andre Barreto MD Active TRAMADOL HCL 50 MG TABS 2 po q 6 hrs prn TRAMADOL HCL 05291794700 Active Andre Barreto MD Active HYDROCODONE-ACETAMINOPHEN 5-325 MG TABS 1 po q 6hr PRN Pain HYDROCODONE-ACETAMINOPHEN 5-325 MG TABS 965287 HYDROCODONE-ACETAMINOPHEN Inactive PROZAC 40 MG CAPS 1 cap by mouth at bedtime PROZAC 40 MG CAPS 523784 FLUOXETINE HCL Inactive DICLOFENAC SODIUM 75 MG TBEC 1 tablet by mouth twice daily DICLOFENAC SODIUM 75 MG TBEC 996589 DICLOFENAC SODIUM Inactive SYMBICORT 160-4.5 MCG/ACT AERO 2 puffs inhaled bid SYMBICORT 160-4.5 MCG/ACT AERO BUDESONIDE-FORMOTEROL FUMARATE Inactive ZOFRAN 4 MG TABS 1 po q6hr PRN Nausea ZOFRAN 4 MG TABS 709381 ONDANSETRON HCL Inactive BETAMETHASONE DIPROPIONATE 0.05 % OINT Apply to affected areas BID for up to 2 weeks BETAMETHASONE DIPROPIONATE 0.05 % OINT 305633 BETAMETHASONE DIPROPIONATE Inactive BENICAR HCT 40-25 MG TABS Take one by mouth daily BENICAR HCT 40-25 MG TABS 001637 OLMESARTAN MEDOXOMIL-HCTZ Inactive ATORVASTATIN CALCIUM 80 MG TABS 1 po qHS ATORVASTATIN CALCIUM 80 MG TABS 134916 ATORVASTATIN CALCIUM Inactive CIPRO 500 MG TAB 1 tablet by mouth twice daily CIPRO 500 MG TAB 455921 CIPROFLOXACIN HCL Inactive Advance Directives Directive Description [...] Panel - Chemistry sodium, serum 143 mmol/L 501-544 3433/09/27 carbon dioxide, venous blood 30.1 mmol/L 21.0-32.0 potassium, serum 3.9 mmol/L 3.5-5.2 chloride, serum 107 mmol/L 98-107 blood glucose 114 mg/dL 65-110 urea nitrogen, blood 14 mg/dL 7-18 creatinine, serum 0.79 mg/dL 0.55-1.30 alanine aminotransferase (SGPT), serum 44 U/L 12-78 aspartate aminotransferase (SGOT), serum 25 U/L 15-37 calcium, serum 8.5 mg/dL 8.5-10.1 bilirubin, serum, total 0.30 mg/dL 0.00-1.00 cholesterol, serum 152 mg/dL 582-923 4052/09/27 triglyceride, serum, fasting 85 mg/dL 30-200 HDL cholesterol, serum 59 mg/dL 32-96 LDL cholesterol, serum 76 mg/dL 0-130 Lab Report: HGBA1C, Lipid Panel, Comp. Metabolic Panel - Chemistry hemoglobin A1C, blood, as % of total hemoglobin 6.2 % 4.3-6.0 cholesterol, serum 229 mg/dL 034-360 7385/07/24 triglyceride, serum, fasting 106 mg/dL 30-200 HDL cholesterol, serum 60 mg/dL 32-60 LDL cholesterol, serum 148 mg/dL 0-130 sodium, serum 139 mmol/L 294-144 2362/07/24 carbon dioxide, venous blood 34.8 mmol/L 21.0-32.0 [...] 0.00-1.00 Encounters Code Encounter Date Provider Facility CPT-35608 Level 4 Est. Patient 09:45:06 CDT Andre Barreto MD [facility] CPT-11659 Level 4 Est. Patient 11:53:39 [employer] Andre Barreto MD [facility] CPT-94176 Level 4 Est. Patient 14:21:31 CDT Andre Barreto MD [facility] CPT-77702 Level 4 Est. Patient 15:24:17 CDT Andre Barreto MD [facility] CPT-19175 Level 3 Est. Patient 10:36:40 CDT Andre Barreto MD [facility] CPT-24382 Level 4 Est. Patient 11:27:43 CDT Andre Barreto MD [facility] CPT-37109 Level 3 Est. Patient 10:57:31 [employer] Andre Barreto MD [facility] CPT-68062 Level 3 Est. Patient 13:53:13 [employer] Andre Barreto MD [facility] CPT-53815 Level 3 Est. Patient 09:16:12 CDT Andre Barreto MD [facility] CPT-90836 Level 3 Est. Patient 14:50:35 CDT Andre Barreto MD [facility] Procedures Code Procedure Name Date Entry Date Standard Description CPT-G0009 Administration of Pneumococcal Vaccine 10:12:50 CDT CPT-98184 Pneumovax 23 Injection Injectable 25 MCG/0.5ML 10:12:50 CDT CPT-G0439 Subsequent Annual Wellness Exam 09:49:25 CDT CPT-71337 First Vx - Ix admin for Medicare patients 17:55:11 [employer] CPT-82934 Fluzone High-Dose Intramuscular Suspension 17:55:11 [employer] CPT-94926 Venipuncture Draw Fee 14:11:36 CDT CPT-33431 Lipid - LAB USE ONLY 14:11:36 CDT CPT-91311 CMP - LAB USE ONLY 14:11:36 CDT CPT-G0438 Initial Annual Wellness Exam 13:29:06 CDT CPT-G0009 Administration of Pneumococcal Vaccine 13:26:57 CDT CPT-26189 Prevnar 13 Intramuscular Suspension 13:26:56 CDT 08/19 CPT-17771 Bone Density - XRAY USE ONLY 09:30:16 CDT CPT-Cryo Cryotherapy 08:59:26 [employer] CPT-Cryo Cryotherapy 08:46:02 CDT CPT-24520 Chest 2V Frontal and Lat 14:02:13 [employer]
--- OUTSIDE RECORDS SUMMARY | 2018-03-16 20:20 | XMS REPORT | Clinical Summary ---
Author Author Admin, E Organization [facility] Address Unknown Phone Unavailable Allergies, Adverse [...] Coronary atherosclerosis of unspecified type of vessel, [place] or graft Obstructive sleep apnea 327.23 Active Andre Barreto MD Obstructive sleep apnea (adult) (pediatric) Health screening V70.0 Active Andre Barreto MD Routine general medical examination at a health care facility Fever 780.60 Resolved Andre Barreto MD Fever, unspecified Actinic keratosis 702.0 Active Andre Barreto MD Actinic keratosis Seborrheic keratosis 702.19 Active Andre Brareto MD Other seborrheic keratosis Skin tag 701.9 [...] MG TABS 1 po qHS ATORVASTATIN CALCIUM 91369881821 Active Andre Barreto MD Active SYMBICORT 160-4.5 MCG/ACT AERO 2 puff BID BUDESONIDE- FORMOTEROL FUMARATE 24309669727 Active Andre Barreto MD Active PROAIR HFA 108 (90 BASE) MCG/ACT AERS 2 puffs four times a day as needed 2015 ALBUTEROL SULFATE 86657747932 Active Andre Barreto MD Active FLUOXETINE HCL 40 MG ORAL CAPS 1 po qd FLUOXETINE HCL 07694165260 Active Andre Barreto MD Active DETROL 2 MG ORAL TABS one tab daily TOLTERODINE TARTRATE 31538520882 Active Andre Barreto MD Active BENICAR HCT 40-25 MG TABS Take one by mouth daily OLMESARTAN MEDOXOMIL-HCTZ 06585076974 No Longer Active Andre Barreto MD Active LOSARTAN POTASSIUM-HCTZ 100-25 MG TABS 1 po qd LOSARTAN POTASSIUM-HCTZ 61609704746 Active Andre Barreto MD Active BETAMETHASONE DIPROPIONATE 0.05 % OINT Apply to affected areas BID for up to 2 weeks BETAMETHASONE DIPROPIONATE 42245186715 No Longer Active Andre Barreto MD Active ZOFRAN 4 MG TABS 1 po q6hr PRN Nausea ONDANSETRON HCL 61771005256 No Longer Active Andre Barreto MD Active CIPRO 500 MG TAB 1 tablet by mouth twice daily CIPROFLOXACIN HCL 72768238116 No Longer Active Andre Barreto MD Active SYMBICORT 160-4.5 MCG/ACT AERO 2 puffs inhaled bid BUDESONIDE- FORMOTEROL FUMARATE 29941525318 No Longer Active Andre Barreto MD Active LASIX 20 MG TAB 1 tablet by mouth daily PRN FUROSEMIDE 40474818813 Active Andre Barreto MD Active TOPROL XL 25 MG [id number] Take one by mouth daily METOPROLOL SUCCINATE 90005061119 Active Andre Barreto MD Active PLAVIX 75 MG TABS 1 tablet by mouth daily CLOPIDOGREL BISULFATE 79706982384 Active Andre Barreto MD Active NITROSTAT 0.4 MG SL TAB disolve 1 under tongue repeat if needed NITROGLYCERIN 11272656903 Active Andre Barreto MD Active DICLOFENAC SODIUM 75 MG TBEC 1 tablet by mouth twice daily DICLOFENAC SODIUM 18336283070 No Longer Active Andre Barreto MD Active PROZAC 40 MG CAPS 1 cap by mouth at bedtime FLUOXETINE HCL 79902443353 No Longer Active Andre Barreto MD Active HYDROCODONE-ACETAMINOPHEN 5-325 MG TABS 1 po q 6hr PRN Pain HYDROCODONE-ACETAMINOPHEN 66747643609 No Longer Active Andre Barreto MD Active TRAMADOL HCL 50 MG TABS 2 po q 6 hrs prn TRAMADOL HCL 95481000690 Active David King APRN Active AMBIEN 5 MG TABS 1 po a hs prn ZOLPIDEM TARTRATE 55956388470 Active Andre Barreto MD Active HYDROCODONE-ACETAMINOPHEN 5-325 MG TABS 1 po q 6hr PRN Pain HYDROCODONE-ACETAMINOPHEN 5-325 MG TABS 166198 HYDROCODONE-ACETAMINOPHEN Inactive PROZAC 40 MG CAPS 1 cap by mouth at bedtime PROZAC 40 MG CAPS 509700 FLUOXETINE HCL Inactive DICLOFENAC SODIUM 75 MG TBEC 1 tablet by mouth twice daily DICLOFENAC SODIUM 75 MG TBEC 718176 DICLOFENAC SODIUM Inactive SYMBICORT 160-4.5 MCG/ACT AERO 2 puffs inhaled bid SYMBICORT 160-4.5 MCG/ACT AERO BUDESONIDE-FORMOTEROL FUMARATE Inactive ZOFRAN 4 MG TABS 1 po q6hr PRN Nausea ZOFRAN 4 MG TABS 124800 ONDANSETRON HCL Inactive BETAMETHASONE DIPROPIONATE 0.05 % OINT Apply to affected areas BID for up to 2 weeks BETAMETHASONE DIPROPIONATE 0.05 % OINT 149039 BETAMETHASONE DIPROPIONATE Inactive BENICAR HCT 40-25 MG TABS Take one by mouth daily BENICAR HCT 40-25 MG TABS OLMESARTAN MEDOXOMIL-HCTZ Inactive CIPRO 500 MG TAB 1 tablet by mouth twice daily CIPRO 500 MG TAB 528717 CIPROFLOXACIN HCL Inactive Vital Signs Date Name [...] ... - Chemistry sodium, serum 140 mmol/L 070-350 0079/06/28 carbon dioxide, venous blood 32.4 mmol/L 21.0-32.0 potassium, serum 4.0 mmol/L 3.5-5.2 chloride, serum 101 mmol/L 98-107 blood glucose 108 mg/dL 65-110 urea nitrogen, blood 20 mg/dL 7-18 creatinine, serum 0.98 mg/dL 0.55-1.30 alanine aminotransferase (SGPT), serum 44 U/L 12-78 aspartate aminotransferase (SGOT), serum 27 U/L 15-37 calcium, serum 9.4 mg/dL 8.5-10.1 bilirubin, serum, total 0.30 mg/dL 0.00-1.00 cholesterol, serum 264 mg/dL 613-316 7130/06/28 triglyceride, serum, fasting 146 mg/dL 30-200 HDL [...] 0-19 Encounters Code Encounter Date Provider Facility CPT-83202 Level 4 Est. Patient 15:24:17 CDT Andre Barreto MD [facility] CPT-12559 Level 3 Est. Patient 10:36:40 CDT Andre Barreto MD [facility] CPT-43573 Level 4 Est. Patient 11:27:43 CDT Andre Barreto MD [facility] CPT-85933 Level 3 Est. Patient 10:57:31 [employer] Andre Barreto MD [facility] CPT-89362 Level 3 Est. Patient 13:53:13 [employer] Andre Barreto MD [facility] CPT-85823 Level 3 Est. Patient 09:16:12 CDT Andre Barreto MD [facility] CPT-08300 Level 3 Est. 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
--- OUTSIDE RECORDS SUMMARY | 2018-03-16 20:21 | XMS REPORT | Clinical Summary ---
Author Author Admin, EDUARDO Organization [employer] Address Unknown Phone Unavailable Allergies, Adverse Reactions, [...] Coronary atherosclerosis of unspecified type of vessel, [place] or graft Obstructive sleep apnea [...] airway pressure rx V46.2 Active [employer] Other dependence on machines, supplemental oxygen Osteopenia [...] 1 po qHS PRN Insomnia ZOLPIDEM TARTRATE 81627791557 Active Andre Barreto MD Active DETROL 2 MG ORAL TABS 1 po qd TOLTERODINE TARTRATE 98697259196 Active Andre Barreto MD Active NITROGLYCERIN 0.4 MG SL SUBL 1 SL q5min PRN Chest pain up to 3 doses NITROGLYCERIN 59533722933 Bar Barreto MD Active TOPROL XL 50 MG ORAL [id number] 1 po qd METOPROLOL SUCCINATE 28814912540 Active Andre Barreto MD Active PLAVIX 75 MG TABS 1 po qd CLOPIDOGREL BISULFATE 54616934210 Bar Barreto MD Active LASIX 20 MG TAB 1 po qd PRN Edema FUROSEMIDE 69400486856 Active Andre Barreto MD Active ATORVASTATIN CALCIUM 80 MG TABS 1 po qHS ATORVASTATIN CALCIUM 55079728349 Active Andre Barreto MD Active SYMBICORT 160-4.5 MCG/ACT AERO 2 puff BID BUDESONIDE- FORMOTEROL FUMARATE 56342373305 Active Andre Barreto MD Active PROAIR HFA 108 (90 BASE) MCG/ACT AERS 2 puffs four times a day as needed 2015 ALBUTEROL SULFATE 13804005115 Active Ander Barreto MD Active FLUOXETINE HCL 40 MG ORAL CAPS 1 po qd FLUOXETINE HCL 62191944875 Active Andre Barreto MD Active BENICAR HCT 40-25 MG TABS Take one by mouth daily OLMESARTAN MEDOXOMIL-HCTZ 74566620629 No Longer Active Andre Barreto MD Active LOSARTAN POTASSIUM-HCTZ 100-25 MG TABS 1 po qd LOSARTAN POTASSIUM-HCTZ 40514137305 Active Andre Barreto MD Active BETAMETHASONE DIPROPIONATE 0.05 % OINT Apply to affected areas BID for up to 2 weeks BETAMETHASONE DIPROPIONATE 49056901073 No Longer Active Andre Barreto MD Active ZOFRAN 4 MG TABS 1 po q6hr PRN Nausea ONDANSETRON HCL 66505163767 No Longer Active Andre Barreto MD Active CIPRO 500 MG TAB 1 tablet by mouth twice daily CIPROFLOXACIN HCL 12093066212 No Longer Active Andre Barreto MD Active SYMBICORT 160-4.5 MCG/ACT AERO 2 puffs inhaled bid BUDESONIDE- FORMOTEROL FUMARATE 26209856563 No Longer Active Andre Barreto MD Active DICLOFENAC SODIUM 75 MG TBEC 1 tablet by mouth twice daily DICLOFENAC SODIUM 61193820482 No Longer Active Andre Barreto MD Active PROZAC 40 MG CAPS 1 cap by mouth at bedtime FLUOXETINE HCL 56564890754 No Longer Active Andre Barreto MD Active HYDROCODONE-ACETAMINOPHEN 5-325 MG TABS 1 po q 6hr PRN Pain HYDROCODONE-ACETAMINOPHEN 22074765642 No Longer Active Andre Barreto MD Active TRAMADOL HCL 50 MG TABS 2 po q 6 hrs prn TRAMADOL HCL 44463973559 Active Andre Barreto MD Active HYDROCODONE-ACETAMINOPHEN 5-325 MG TABS 1 po q 6hr PRN Pain HYDROCODONE-ACETAMINOPHEN 5-325 MG TABS 922241 HYDROCODONE-ACETAMINOPHEN Inactive PROZAC 40 MG CAPS 1 cap by mouth at bedtime PROZAC 40 MG CAPS 234028 FLUOXETINE HCL Inactive DICLOFENAC SODIUM 75 MG TBEC 1 tablet by mouth twice daily DICLOFENAC SODIUM 75 MG TBEC 284774 DICLOFENAC SODIUM Inactive SYMBICORT 160-4.5 MCG/ACT AERO 2 puffs inhaled bid SYMBICORT 160-4.5 MCG/ACT AERO BUDESONIDE-FORMOTEROL FUMARATE Inactive ZOFRAN 4 MG TABS 1 po q6hr PRN Nausea ZOFRAN 4 MG TABS 205451 ONDANSETRON HCL Inactive BETAMETHASONE DIPROPIONATE 0.05 % OINT Apply to affected areas BID for up to 2 weeks BETAMETHASONE DIPROPIONATE 0.05 % OINT 969845 BETAMETHASONE DIPROPIONATE Inactive BENICAR HCT 40-25 MG TABS Take one by mouth daily BENICAR HCT 40-25 MG TABS 636551 OLMESARTAN MEDOXOMIL-HCTZ Inactive CIPRO 500 MG TAB 1 tablet by mouth twice daily CIPRO 500 MG TAB 859682 CIPROFLOXACIN HCL Inactive Advance Directives Directive Description [...] 0.30 mg/dL 0.00-1.00 cholesterol, serum 152 mg/dL 850-645 4606/09/27 triglyceride, serum, fasting 85 mg/dL 30-200 HDL cholesterol, serum 59 mg/dL 32-96 LDL cholesterol, serum 76 mg/dL 0-130 blood glucose 114 mg/dL 65-110 chloride, serum 107 mmol/L 98-107 potassium, serum 3.9 mmol/L 3.5-5.2 carbon dioxide, venous blood 30.1 mmol/L 21.0-32.0 sodium, serum 143 mmol/L 136-145 Lab Report: HGBA1C, Lipid Panel, Comp. Metabolic Panel - Chemistry alanine aminotransferase (SGPT), serum 32 U/L 12-78 aspartate aminotransferase (SGOT), serum 22 U/L 15-37 calcium, serum 9.4 mg/dL 8.5-10.1 bilirubin, serum, total 0.50 mg/dL 0.00-1.00 hemoglobin A1C, blood, as % of total hemoglobin 6.2 % 4.3-6.0 cholesterol, serum 229 mg/dL 164-640 9647/07/24 triglyceride, serum, fasting 106 mg/dL 30-200 HDL cholesterol, serum 60 mg/dL 32-60 LDL cholesterol, serum 148 mg/dL 0-130 sodium, serum 139 mmol/L 230-329 6149/07/24 carbon dioxide, venous blood 34.8 mmol/L 21.0-32.0 potassium, serum 4.6 mmol/L 3.5-5.2 chloride, serum 101 mmol/L 98-107 blood glucose 112 mg/dL 65-110 urea nitrogen, blood 22 mg/dL 7-18 creatinine, serum 1.12 mg/dL 0.60-1.30 Encounters Code Encounter Date Provider Facility CPT-85529 Level 4 Est. Patient 11:53:39 [employer] Andre Barreto MD [facility] CPT-44886 Level 4 Est. Patient 14:21:31 CDT Andre Barreto MD [facility] CPT-43075 Level 4 Est. Patient 15:24:17 CDT Andre Barreto MD [facility] CPT-99965 Level 3 Est. Patient 10:36:40 CDT [facility] CPT-65289 Level 4 Est. Patient 11:27:43 CDT [facility] CPT-81057 Level 3 Est. Patient 10:57:31 [employer] Andre [facility] CPT-41672 Level 3 Est. Patient 13:53:13 [employer] Andre [facility] CPT-32996 Level 3 Est. Patient 09:16:12 CDT Andre [facility] CPT-35822 Level 3 Est. Patient 14:50:35 CDT Andre [facility] Procedures Code Procedure Name Date Entry Date Standard Description CPT-20228 First Vx - Ix admin for Medicare patients 17:55:11 [employer] CPT-39878 Fluzone High-Dose Intramuscular Suspension 17:55:11 [employer] CPT-45872 Venipuncture Draw Fee 14:11:36 CDT CPT-53125 Lipid - LAB USE ONLY 14:11:36 CDT CPT-87460 CMP - LAB USE ONLY 14:11:36 CDT CPT-G0438 Initial Annual Wellness Exam 13:29:06 CDT CPT-G0009 Administration of Pneumococcal Vaccine 13:26:57 CDT CPT-04713 Prevnar 13 Intramuscular Suspension 13:26:56 CDT 08/19 CPT-05473 Bone Density - XRAY USE ONLY 09:30:16 CDT CPT-Cryo Cryotherapy 08:59:26 [employer] CPT-Cryo Cryotherapy 08:46:02 CDT CPT-81938 Chest 2V Frontal and Lat 14:02:13 [employer]
--- OUTSIDE RECORDS SUMMARY | 2018-03-16 20:22 | XMS REPORT | Clinical Summary ---
Author Author Admin, E Organization [facility] Address Unknown Phone Unavailable Allergies, [...] Patient Instruction TOPROL XL 50 MG ORAL [id number] 1 po qd METOPROLOL SUCCINATE 70346169445 Active Andre Barreto MD Active PLAVIX 75 MG TABS 1 po qd CLOPIDOGREL BISULFATE 51490335181 Active Andre Barreto MD Active LASIX 20 MG TAB 1 po qd PRN Edema FUROSEMIDE 10994151755 Active Andre Barreto MD Active ATORVASTATIN CALCIUM 80 MG TABS 1 po qHS ATORVASTATIN CALCIUM 57478969686 Active Andre Barreto MD Active SYMBICORT 160-4.5 MCG/ACT AERO 2 puff BID BUDESONIDE- FORMOTEROL FUMARATE 80559010472 Active Andre Barreto MD Active PROAIR HFA 108 (90 BASE) MCG/ACT AERS 2 puffs four times a day as needed 2015 ALBUTEROL SULFATE 98637112478 Active Andre Barreto MD Active FLUOXETINE HCL 40 MG ORAL CAPS 1 po qd FLUOXETINE HCL 49294452048 Active Andre Barreto MD Active DETROL 2 MG ORAL TABS one tab daily TOLTERODINE TARTRATE 47397452169 Active Andre Barreto MD Active BENICAR HCT 40-25 MG TABS Take one by mouth daily OLMESARTAN MEDOXOMIL-HCTZ 76318272182 No Longer Active Andre Barreto MD Active LOSARTAN POTASSIUM-HCTZ 100-25 MG TABS 1 po qd LOSARTAN POTASSIUM-HCTZ 26133742928 Active Andre Barreto MD Active BETAMETHASONE DIPROPIONATE 0.05 % OINT Apply to affected areas BID for up to 2 weeks BETAMETHASONE DIPROPIONATE 24678221169 No Longer Active Andre Barreto MD Active ZOFRAN 4 MG TABS 1 po q6hr PRN Nausea ONDANSETRON HCL 37483748806 No Longer Active Andre Barreto MD Active CIPRO 500 MG TAB 1 tablet by mouth twice daily CIPROFLOXACIN HCL 23315258330 No Longer Active Andre Barreto MD Active SYMBICORT 160-4.5 MCG/ACT AERO 2 puffs inhaled bid BUDESONIDE- FORMOTEROL FUMARATE 11127540947 No Longer Active Andre Barreto MD Active NITROSTAT 0.4 MG SL TAB disolve 1 under tongue repeat if needed NITROGLYCERIN 49353430448 Active Andre Barreto MD Active DICLOFENAC SODIUM 75 MG TBEC 1 tablet by mouth twice daily DICLOFENAC SODIUM 43608818246 No Longer Active Andre Barreto MD Active PROZAC 40 MG CAPS 1 cap by mouth at bedtime FLUOXETINE HCL 91869814109 No Longer Active Andre Barreto MD Active HYDROCODONE-ACETAMINOPHEN 5-325 MG TABS 1 po q 6hr PRN Pain HYDROCODONE-ACETAMINOPHEN 91158458629 No Longer Active Andre Barreto MD Active TRAMADOL HCL 50 MG TABS 2 po q 6 hrs prn TRAMADOL HCL 24168385584 Active Andre Barreto MD Active AMBIEN 5 MG TABS 1 po a hs prn ZOLPIDEM TARTRATE 09491463815 Active Andre Barreto MD Active HYDROCODONE-ACETAMINOPHEN 5-325 MG TABS 1 po q 6hr PRN Pain HYDROCODONE-ACETAMINOPHEN 5-325 MG TABS 222326 HYDROCODONE-ACETAMINOPHEN Inactive PROZAC 40 MG CAPS 1 cap by mouth at bedtime PROZAC 40 MG CAPS 550193 FLUOXETINE HCL Inactive DICLOFENAC SODIUM 75 MG TBEC 1 tablet by mouth twice daily DICLOFENAC SODIUM 75 MG TBEC 289782 DICLOFENAC SODIUM Inactive SYMBICORT 160-4.5 MCG/ACT AERO 2 puffs inhaled bid SYMBICORT 160-4.5 MCG/ACT AERO BUDESONIDE-FORMOTEROL FUMARATE Inactive ZOFRAN 4 MG TABS 1 po q6hr PRN Nausea ZOFRAN 4 MG TABS 612000 ONDANSETRON HCL Inactive BETAMETHASONE DIPROPIONATE 0.05 % OINT Apply to affected areas BID for up to 2 weeks BETAMETHASONE DIPROPIONATE 0.05 % OINT 976778 BETAMETHASONE DIPROPIONATE Inactive BENICAR HCT 40-25 MG TABS Take one by mouth daily BENICAR HCT 40-25 MG TABS 633191 OLMESARTAN MEDOXOMIL-HCTZ Inactive CIPRO 500 MG TAB 1 tablet by mouth twice daily CIPRO 500 MG TAB 429454 CIPROFLOXACIN HCL Inactive Advance Directives Directive Description [...] ... - Chemistry sodium, serum 140 mmol/L 860-609 8605/06/28 carbon dioxide, venous blood 32.4 mmol/L 21.0-32.0 potassium, serum 4.0 mmol/L 3.5-5.2 chloride, serum 101 mmol/L 98-107 blood glucose 108 mg/dL 65-110 urea nitrogen, blood 20 mg/dL 7-18 creatinine, serum 0.98 mg/dL 0.55-1.30 alanine aminotransferase (SGPT), serum 44 U/L 12-78 aspartate aminotransferase (SGOT), serum 27 U/L 15-37 calcium, serum 9.4 mg/dL 8.5-10.1 bilirubin, serum, total 0.30 mg/dL 0.00-1.00 cholesterol, serum 264 mg/dL 700-297 5009/06/28 triglyceride, serum, fasting 146 mg/dL 30-200 HDL [...] Panel - Chemistry sodium, serum 143 mmol/L 654-971 2431/09/27 carbon dioxide, venous blood 30.1 mmol/L 21.0-32.0 potassium, serum 3.9 mmol/L 3.5-5.2 chloride, serum 107 mmol/L 98-107 blood glucose 114 mg/dL 65-110 urea nitrogen, blood 14 mg/dL 7-18 creatinine, serum 0.79 mg/dL 0.55-1.30 alanine aminotransferase (SGPT), serum 44 U/L 12-78 aspartate aminotransferase (SGOT), serum 25 U/L 15-37 calcium, serum 8.5 mg/dL 8.5-10.1 bilirubin, serum, total 0.30 mg/dL 0.00-1.00 cholesterol, serum 152 mg/dL 324-085 4490/09/27 triglyceride, serum, fasting 85 mg/dL 30-200 HDL cholesterol, serum 59 mg/dL 32-96 LDL cholesterol, serum 76 mg/dL 0-130 Encounters Code Encounter Date Provider Facility CPT-51281 Level 4 Est. Patient 14:21:31 CDT Andre Barreto MD [facility] CPT-65513 Level 4 Est. Patient 15:24:17 CDT Andre Barreto MD [facility] CPT-45190 Level 3 Est. Patient 10:36:40 CDT Andre Barreto MD [facility] CPT-91885 Level 4 Est. Patient 11:27:43 CDT Andre Barreto MD [facility] CPT-78455 Level 3 Est. Patient 10:57:31 ROAD WORKER Andre Barreto MD [facility] CPT-93528 Level 3 Est. Patient 13:53:13 ROAD WORKER Andre Barreto MD [facility] CPT-54189 Level 3 Est. Patient 09:16:12 CDT Andre Barreto MD [facility] CPT-82222 Level 3 Est. Patient 14:50:35 CDT Andre Barreto MD [facility] Procedures Code Procedure Name Date Entry Date Standard Description CPT-59837 Venipuncture Draw Fee 14:11:36 CDT CPT-06583 Lipid - LAB USE ONLY 14:11:36 CDT CPT-45746 CMP - LAB USE ONLY 14:11:36 CDT CPT-G0438 Initial Annual Wellness Exam 13:29:06 CDT CPT-G0009 Administration of Pneumococcal Vaccine 13:26:57 CDT CPT-79021 Prevnar 13 Intramuscular Suspension 13:26:56 CDT 08/19 CPT-98481 Bone Density - XRAY USE ONLY 09:30:16 CDT CPT-Cryo Cryotherapy 08:59:26 ROAD WORKER CPT-Cryo Cryotherapy 08:46:02 CDT CPT-75381 Chest 2V Frontal and Lat 14:02:13 ROAD WORKER
--- OUTSIDE RECORDS SUMMARY | 2018-03-16 20:24 | XMS REPORT | Clinical Summary ---
Author Author Admin, [employer] Organization [facility] Address Unknown Phone Unavailable Allergies, Adverse Reactions, Alerts Allergy Name Reaction Description Start Date Severity Status Provider SULFA Mild No Longer Active Jillina Frazell INSTALLER APPRENTICE PENICILLIN Mild No Longer Active Jillina Frazell INSTALLER APPRENTICE ZINC Mild No Longer Active Jillina Frazell INSTALLER APPRENTICE SULFA Critical No Longer Active Marcelle Yesi [...] Coronary atherosclerosis of unspecified type of vessel, kake or graft Obstructive sleep apnea 327.23 Active [...] Apply to affected area BID 05/18 MUPIROCIN 61663911647 No Longer Active Moira Price MA Active CLINDAMYCIN HCL 300 MG ORAL CAPSULE 1 po QID x 7 days CLINDAMYCIN HCL 78161650697 Active Jillina Frazell INSTALLER APPRENTICE Active BACTRIM DS 800-160 MG ORAL TABLET 1 tab by mouth twice daily 2017 TRIMETHOPRIM-SULFAMETHOXAZOLE 26645318572 No Longer Active Jillina Frazell INSTALLER APPRENTICE Active GUAIFENESIN DM 400-20 MG ORAL TABLET 1 pill by mouth twice daily, if needed for cough DEXTROMETHORPHAN-GUAIFENESIN 66590145794 Active Jillina Frazell INSTALLER APPRENTICE Active CEFDINIR 300 MG ORAL CAPSULE by mouth twice a day CEFDINIR 58152097962 No Longer Active Jillina Frazell INSTALLER APPRENTICE Active BENZONATATE 200 MG ORAL CAPSULE 1 three times a day as needed for cough 03/27 BENZONATATE 85046751007 No Longer Active Luna Prabhakar Active ZITHROMAX Z-NEVAEH 250 MG ORAL TABLET 2 today and then 1 daily for 4 days 03/27 AZITHROMYCIN 29243053563 No Longer Active Luna Prabhakar Active PREDNISONE 20 MG ORAL TABLET 2 daily for 3 days then 1 daily for 3 days 03/27 PREDNISONE 68354257871 No Longer Active Luna Prabhakar Active ATORVASTATIN CALCIUM 40 MG ORAL TABLET 1 po qHS ATORVASTATIN CALCIUM 49120263598 Active Marcelle VERA Active CLOPIDOGREL BISULFATE 75 MG ORAL TABLET 1 po qd CLOPIDOGREL BISULFATE 84834845350 Active Andre Barreto MD Active FUROSEMIDE 20 MG ORAL TABLET 1 po qd PRN Edema FUROSEMIDE 00223358435 Active Andre Barreto MD Active PROAIR HFA 108 (90 Base) MCG/ACT INHALATION AEROSOL SOLUTION 2 puffs q4hr PRN Shortness of air/Wheezing ALBUTEROL SULFATE 56691865158 Active Andre Barreto MD Active ATORVASTATIN CALCIUM 80 MG ORAL TABLET 1 po qHS ATORVASTATIN CALCIUM 75843980686 No Longer Active Andre Barreto MD Active AMBIEN 5 MG ORAL TABLET 1 po qHS PRN Insomnia ZOLPIDEM TARTRATE 41357272876 Active Andre Barreto MD Active DETROL 2 MG ORAL TABLET 1 po qd TOLTERODINE TARTRATE 90189580245 Active Andre Barreto MD Active NITROGLYCERIN 0.4 MG SUBLINGUAL TABLET SUBLINGUAL 1 SL q5min PRN Chest pain up to 3 doses NITROGLYCERIN 88563191436 Active Andre Barreto MD Active TOPROL XL 50 MG ORAL TABLET EXTENDED RELEASE 24 HOUR 1 po qd METOPROLOL SUCCINATE 60602970712 Active Andre Barreto MD Active SYMBICORT 160-4.5 MCG/ACT INHALATION AEROSOL 2 puff BID BUDESONIDE-FORMOTEROL FUMARATE 95960983899 Active Cayla VERA Active FLUOXETINE HCL 40 MG ORAL CAPSULE 1 po qd FLUOXETINE HCL 26307508510 Active Andre Barreto MD Active BENICAR HCT 40-25 MG ORAL TABLET Take one by mouth daily OLMESARTAN MEDOXOMIL-HCTZ 17844938369 No Longer Active Andre Barreto MD Active LOSARTAN POTASSIUM-HCTZ 100-25 MG ORAL TABLET 1 po qd LOSARTAN POTASSIUM-HCTZ 80408395886 Active Andre Barreto MD Active BETAMETHASONE DIPROPIONATE 0.05 % EXTERNAL OINTMENT Apply to affected areas BID for up to 2 weeks BETAMETHASONE DIPROPIONATE 11264066750 No Longer Active Andre Barreto MD Active ZOFRAN 4 MG ORAL TABLET 1 po q6hr PRN Nausea ONDANSETRON HCL 57869836672 No Longer Active Andre Barreto MD Active CIPRO 500 MG ORAL TABLET 1 tablet by mouth twice daily CIPROFLOXACIN HCL 32788667475 No Longer Active Andre Barreto MD Active SYMBICORT 160-4.5 MCG/ACT INHALATION AEROSOL 2 puffs inhaled bid BUDESONIDE-FORMOTEROL FUMARATE 74948807943 No Longer Active Andre Barreto MD Active DICLOFENAC SODIUM 75 MG ORAL TABLET DELAYED RELEASE 1 tablet by mouth twice daily DICLOFENAC SODIUM 23345249326 No Longer Active Andre Barreto MD Active PROZAC 40 MG ORAL CAPSULE 1 cap by mouth at bedtime FLUOXETINE HCL 95207487990 No Longer Active Andre Barreto MD Active HYDROCODONE-ACETAMINOPHEN 5-325 MG ORAL TABLET 1 po q 6hr PRN Pain HYDROCODONE-ACETAMINOPHEN 08708756277 No Longer Active Andre Barreto MD Active TRAMADOL HCL 50 MG ORAL TABLET 2 po q 6 hrs prn TRAMADOL HCL 38225165032 Active Andre Barreto MD Active HYDROCODONE-ACETAMINOPHEN 5-325 MG ORAL TABLET 1 po q 6hr PRN Pain HYDROCODONE-ACETAMINOPHEN 5-325 MG ORAL TABLET 138539 HYDROCODONE- ACETAMINOPHEN Inactive PROZAC 40 MG ORAL CAPSULE 1 cap by mouth at bedtime PROZAC 40 MG ORAL CAPSULE 979415 FLUOXETINE HCL Inactive DICLOFENAC SODIUM 75 MG ORAL TABLET DELAYED RELEASE 1 tablet by mouth twice daily DICLOFENAC SODIUM 75 MG ORAL TABLET DELAYED RELEASE 451672 DICLOFENAC SODIUM Inactive SYMBICORT 160-4.5 MCG/ACT INHALATION AEROSOL 2 puffs inhaled bid SYMBICORT 160-4.5 MCG/ACT INHALATION AEROSOL BUDESONIDE-FORMOTEROL FUMARATE Inactive ZOFRAN 4 MG ORAL TABLET 1 po q6hr PRN Nausea ZOFRAN 4 MG ORAL TABLET 256258 ONDANSETRON HCL Inactive BETAMETHASONE DIPROPIONATE 0.05 % EXTERNAL OINTMENT Apply to affected areas BID for up to 2 weeks BETAMETHASONE DIPROPIONATE 0.05 % EXTERNAL OINTMENT 453492 BETAMETHASONE DIPROPIONATE Inactive BENICAR HCT 40-25 MG ORAL TABLET Take one by mouth daily BENICAR HCT 40-25 MG ORAL TABLET 868305 OLMESARTAN MEDOXOMIL-HCTZ Inactive ATORVASTATIN CALCIUM 80 MG ORAL TABLET 1 po qHS ATORVASTATIN CALCIUM 80 MG ORAL TABLET 822288 ATORVASTATIN CALCIUM Inactive PREDNISONE 20 MG ORAL TABLET 2 daily for 3 days then 1 daily for 3 days 03/27 PREDNISONE 20 MG ORAL TABLET 859089 PREDNISONE Inactive ZITHROMAX Z-NEVAEH 250 MG ORAL TABLET 2 today and then 1 daily for 4 days 03/27 ZITHROMAX Z-NEVAEH 250 MG ORAL TABLET 090805 AZITHROMYCIN Inactive BENZONATATE 200 MG ORAL CAPSULE 1 three times a day as needed for cough 03/27 BENZONATATE 200 MG ORAL CAPSULE 070118 BENZONATATE Inactive BACTRIM DS 800-160 MG ORAL TABLET 1 tab by mouth twice daily 2017 BACTRIM DS 800-160 MG ORAL TABLET 335009 TRIMETHOPRIM- SULFAMETHOXAZOLE Inactive BACTROBAN 2 % EXTERNAL OINTMENT Apply to affected area BID 05/18 BACTROBAN 2 % EXTERNAL OINTMENT 167360 MUPIROCIN Inactive CIPRO 500 MG ORAL TABLET 1 tablet by mouth twice daily CIPRO 500 MG ORAL TABLET 288320 CIPROFLOXACIN HCL Inactive CEFDINIR 300 MG ORAL CAPSULE by mouth twice a day CEFDINIR 300 MG ORAL CAPSULE 339291 CEFDINIR Inactive Advance Directives Directive Description Start [...] 6.2 % 4.3-6.0 cholesterol, serum 229 mg/dL 915-300 0501/07/24 triglyceride, serum, fasting 106 mg/dL 30-200 HDL cholesterol, serum 60 mg/dL 32-60 LDL cholesterol, serum 148 mg/dL 0-130 sodium, serum 139 mmol/L 467-058 3430/07/24 carbon dioxide, venous blood 34.8 mmol/L 21.0-32.0 [...] Panel - Chemistry cholesterol, serum 275 mg/dL 054-044 1788/11/07 triglyceride, serum, fasting 166 mg/dL 30-200 HDL cholesterol, serum 62 mg/dL 32-60 LDL cholesterol, serum 180 mg/dL 0-130 sodium, serum 141 mmol/L 623-831 1149/11/07 carbon dioxide, venous blood 26.3 mmol/L 21.0-32.0 [...] 0-19 Encounters Code Encounter Date Provider Facility CPT-78634 Level 3 Est. Patient 14:06:16 CDT Andre Barreto MD [facility] CPT-21554 Level 3 Est. Patient 09:16:36 CDT [facility] CPT-07970 Level 3 Est. Patient 09:24:01 VOICE INTERCEPT TECHNICIAN [facility] CPT-24960 Level 3 Est. Patient 13:01:07 VOICE INTERCEPT TECHNICIAN Solitario Howe MD [facility] CPT-15172 Level 4 Est. Patient 10:26:48 VOICE INTERCEPT TECHNICIAN Andre Barreto MD [facility] CPT-28997 Level 4 Est. Patient 09:45:06 CDT Andre Barreto MD [facility] CPT-43290 Level 4 Est. Patient 11:53:39 VOICE INTERCEPT TECHNICIAN Andre Barreto MD [facility] CPT-15043 Level 4 Est. Patient 14:21:31 CDT Andre Barreto MD [facility] CPT-88487 Level 4 Est. Patient 15:24:17 CDT Andre Barreto MD [facility] CPT-34972 Level 3 Est. Patient 10:36:40 CDT Andre Barreto MD [facility] CPT-82290 Level 4 Est. Patient 11:27:43 CDT Andre Barreto MD [facility] CPT-48595 Level 3 Est. Patient 10:57:31 VOICE INTERCEPT TECHNICIAN Andre Barreto MD [facility] CPT-82956 Level 3 Est. Patient 13:53:13 VOICE INTERCEPT TECHNICIAN Andre Barreto MD [facility] CPT-77073 Level 3 Est. Patient 09:16:12 CDT Andre Barreto MD [facility] CPT-20680 Level 3 Est. Patient 14:50:35 CDT Andre Barreto MD [facility] Procedures Code Procedure Name Date Entry Date Standard Description CPT-17300 Sono pelvis coley bladder only - XRAY USE ONLY 15:07:39 CDT CPT-76426 First Vx - Ix admin for Medicare patients 13:56:44 VOICE INTERCEPT TECHNICIAN CPT-27113 Zostavax Subcutaneous Solution Reconstituted 32869 UNT/0.65ML 12/22 13:56:44 VOICE INTERCEPT TECHNICIAN CPT-G0009 Administration of Pneumococcal Vaccine 10:12:50 CDT CPT-79162 Pneumovax 23 Injection Injectable 25 MCG/0.5ML 10:12:50 CDT CPT-G0439 Subsequent Annual Wellness Exam 09:49:25 CDT CPT-48017 First Vx - Ix admin for Medicare patients 17:55:11 VOICE INTERCEPT TECHNICIAN CPT-77639 Fluzone High-Dose Intramuscular Suspension 17:55:11 VOICE INTERCEPT TECHNICIAN CPT-98788 Venipuncture Draw Fee 14:11:36 CDT CPT-45902 Lipid - LAB USE ONLY 14:11:36 CDT CPT-57693 CMP - LAB USE ONLY 14:11:36 CDT CPT-G0438 Initial Annual Wellness Exam 13:29:06 CDT CPT-G0009 Administration of Pneumococcal Vaccine 13:26:57 CDT CPT-05086 Prevnar 13 Intramuscular Suspension 13:26:56 CDT 08/19 CPT-10914 Bone Density - XRAY USE ONLY 09:30:16 CDT CPT-Cryo Cryotherapy 08:59:26 VOICE INTERCEPT TECHNICIAN CPT-Cryo Cryotherapy 08:46:02 CDT CPT-74212 Chest 2V Frontal and Lat 14:02:13 VOICE INTERCEPT TECHNICIAN
--- OUTSIDE RECORDS SUMMARY | 2018-03-16 20:24 | XMS REPORT | Clinical Summary ---
Author Author Admin, EDUARDO Organization [employer] Address Unknown Phone Unavailable Allergies, Adverse Reactions, Alerts Allergy Name Reaction Description Start Date Severity Status Provider SULFA Mild No Longer Active Jillina Frazell INSTANT PRINT OPERATOR PENICILLIN Mild No Longer Active Jillina Frazell INSTANT PRINT OPERATOR ZINC Mild No Longer Active Jillina Frazell INSTANT PRINT OPERATOR SULFA Critical No Longer Active Marcelle [...] Coronary atherosclerosis of unspecified type of vessel, [place] or graft Obstructive sleep apnea 327.23 Active [...] airway pressure rx V46.2 Active Pushpa Hernandez INSTANT PRINT OPERATOR Other dependence on machines, supplemental oxygen Osteopenia 733.90 Active Pushpa Hernandez APRN Disorder of bone and cartilage, unspecified Obstructive sleep apnea 327.23 Active Andre Barreto MD Obstructive sleep apnea (adult) (pediatric) Acute exacerbation of chronic bronchitis 491.22 Inactive Solitario Howe MD Obstructive chronic bronchitis with acute bronchitis Sinusitis 473.9 Active David King INSTANT PRINT OPERATOR Unspecified sinusitis (chronic) Abscess, skin 682.9 Active David King APRN Cellulitis and abscess of unspecified sites DYSPNEA ICD-786.09 Inactive Andre Barreot MD 2012 FATIGUE ICD-780.79 Inactive Andre Barreto MD 2012 DYSPNEA ICD-786.05 Inactive Andre Barreto MD 2012 Fever ICD-780.60 Inactive Andre Barerto MD 05/23 Actinic keratosis ICD-702.0 Inactive Andre [...] Apply to affected area BID 05/18 MUPIROCIN 59239582002 No Longer Active Moira Price MA Active CLINDAMYCIN HCL 300 MG ORAL CAPSULE 1 po QID x 7 days CLINDAMYCIN HCL 99548286446 Active Jillina Frazell INSTANT PRINT OPERATOR Active BACTRIM DS 800-160 MG ORAL TABLET 1 tab by mouth twice daily 2017 TRIMETHOPRIM-SULFAMETHOXAZOLE 10728769297 No Longer Active Jillina Frazell INSTANT PRINT OPERATOR Active GUAIFENESIN DM 400-20 MG ORAL TABLET 1 pill by mouth twice daily, if needed for cough DEXTROMETHORPHAN-GUAIFENESIN 28990401992 Active Jillina Frazell INSTANT PRINT OPERATOR Active CEFDINIR 300 MG ORAL CAPSULE by mouth twice a day CEFDINIR 66482748485 No Longer Active Jillina Frazell INSTANT PRINT OPERATOR Active BENZONATATE 200 MG ORAL CAPSULE 1 three times a day as needed for cough 03/27 BENZONATATE 22800677569 No Longer Active Luna Prabhakar Active ZITHROMAX Z-NEVAEH 250 MG ORAL TABLET 2 today and then 1 daily for 4 days 03/27 AZITHROMYCIN 78237860602 No Longer Active Luna Prabhakar Active PREDNISONE 20 MG ORAL TABLET 2 daily for 3 days then 1 daily for 3 days 03/27 PREDNISONE 86708431300 No Longer Active Luna Prabhakar Active ATORVASTATIN CALCIUM 40 MG ORAL TABLET 1 po qHS ATORVASTATIN CALCIUM 97378666605 Active Marcellekala Key RMA Active CLOPIDOGREL BISULFATE 75 MG ORAL TABLET 1 po qd CLOPIDOGREL BISULFATE 24056835269 Active Andre Barreto MD Active FUROSEMIDE 20 MG ORAL TABLET 1 po qd PRN Edema FUROSEMIDE 56245191816 Active Andre Barreto MD Active PROAIR HFA 108 (90 Base) MCG/ACT INHALATION AEROSOL SOLUTION 2 puffs q4hr PRN Shortness of air/Wheezing ALBUTEROL SULFATE 22618665602 Active Andre Barreto MD Active ATORVASTATIN CALCIUM 80 MG ORAL TABLET 1 po qHS ATORVASTATIN CALCIUM 21084128610 No Longer Active Andre Barreto MD Active AMBIEN 5 MG ORAL TABLET 1 po qHS PRN Insomnia ZOLPIDEM TARTRATE 63737033419 Active Andre Barreto MD Active DETROL 2 MG ORAL TABLET 1 po qd TOLTERODINE TARTRATE 38976264060 Active Andre Barreto MD Active NITROGLYCERIN 0.4 MG SUBLINGUAL TABLET SUBLINGUAL 1 SL q5min PRN Chest pain up to 3 doses NITROGLYCERIN 87123957302 Active Andre Barreto MD Active TOPROL XL 50 MG ORAL TABLET EXTENDED RELEASE 24 HOUR 1 po qd METOPROLOL SUCCINATE 58943550175 Active Adnre Barreto MD Active SYMBICORT 160-4.5 MCG/ACT INHALATION AEROSOL 2 puff BID BUDESONIDE-FORMOTEROL FUMARATE 47423011778 Active Cayla VERA Active FLUOXETINE HCL 40 MG ORAL CAPSULE 1 po qd FLUOXETINE HCL 96686322175 Active Andre Barreto MD Active BENICAR HCT 40-25 MG ORAL TABLET Take one by mouth daily OLMESARTAN MEDOXOMIL-HCTZ 78846615631 No Longer Active Andre Barreto MD Active LOSARTAN POTASSIUM-HCTZ 100-25 MG ORAL TABLET 1 po qd LOSARTAN POTASSIUM-HCTZ 58631295862 Active Andre Barreto MD Active BETAMETHASONE DIPROPIONATE 0.05 % EXTERNAL OINTMENT Apply to affected areas BID for up to 2 weeks BETAMETHASONE DIPROPIONATE 49132253414 No Longer Active Andre Barreto MD Active ZOFRAN 4 MG ORAL TABLET 1 po q6hr PRN Nausea ONDANSETRON HCL 49324482166 No Longer Active Andre Barreto MD Active CIPRO 500 MG ORAL TABLET 1 tablet by mouth twice daily CIPROFLOXACIN HCL 35911950320 No Longer Active Andre Barreto MD Active SYMBICORT 160-4.5 MCG/ACT INHALATION AEROSOL 2 puffs inhaled bid BUDESONIDE-FORMOTEROL FUMARATE 40105313072 No Longer Active Andre Barreto MD Active DICLOFENAC SODIUM 75 MG ORAL TABLET DELAYED RELEASE 1 tablet by mouth twice daily DICLOFENAC SODIUM 41827909230 No Longer Active Andre Barreto MD Active PROZAC 40 MG ORAL CAPSULE 1 cap by mouth at bedtime FLUOXETINE HCL 08825715928 No Longer Active Andre Barreto MD Active HYDROCODONE-ACETAMINOPHEN 5-325 MG ORAL TABLET 1 po q 6hr PRN Pain HYDROCODONE-ACETAMINOPHEN 68353093232 No Longer Active Andre Barreto MD Active TRAMADOL HCL 50 MG ORAL TABLET 2 po q 6 hrs prn TRAMADOL HCL 67997303743 Active Andre Barreto MD Active HYDROCODONE-ACETAMINOPHEN 5-325 MG ORAL TABLET 1 po q 6hr PRN Pain HYDROCODONE-ACETAMINOPHEN 5-325 MG ORAL TABLET 633712 HYDROCODONE- ACETAMINOPHEN Inactive PROZAC 40 MG ORAL CAPSULE 1 cap by mouth at bedtime PROZAC 40 MG ORAL CAPSULE 983287 FLUOXETINE HCL Inactive DICLOFENAC SODIUM 75 MG ORAL TABLET DELAYED RELEASE 1 tablet by mouth twice daily DICLOFENAC SODIUM 75 MG ORAL TABLET DELAYED RELEASE 913595 DICLOFENAC SODIUM Inactive SYMBICORT 160-4.5 MCG/ACT INHALATION AEROSOL 2 puffs inhaled bid SYMBICORT 160-4.5 MCG/ACT INHALATION AEROSOL BUDESONIDE-FORMOTEROL FUMARATE Inactive ZOFRAN 4 MG ORAL TABLET 1 po q6hr PRN Nausea ZOFRAN 4 MG ORAL TABLET 701123 ONDANSETRON HCL Inactive BETAMETHASONE DIPROPIONATE 0.05 % EXTERNAL OINTMENT Apply to affected areas BID for up to 2 weeks BETAMETHASONE DIPROPIONATE 0.05 % EXTERNAL OINTMENT 300337 BETAMETHASONE DIPROPIONATE Inactive BENICAR HCT 40-25 MG ORAL TABLET Take one by mouth daily BENICAR HCT 40-25 MG ORAL TABLET 802486 OLMESARTAN MEDOXOMIL-HCTZ Inactive ATORVASTATIN CALCIUM 80 MG ORAL TABLET 1 po qHS ATORVASTATIN CALCIUM 80 MG ORAL TABLET 367799 ATORVASTATIN CALCIUM Inactive PREDNISONE 20 MG ORAL TABLET 2 daily for 3 days then 1 daily for 3 days 03/27 PREDNISONE 20 MG ORAL TABLET 152172 PREDNISONE Inactive ZITHROMAX Z-NEVAEH 250 MG ORAL TABLET 2 today and then 1 daily for 4 days 03/27 ZITHROMAX Z-NEVAEH 250 MG ORAL TABLET 578877 AZITHROMYCIN Inactive BENZONATATE 200 MG ORAL CAPSULE 1 three times a day as needed for cough 03/27 BENZONATATE 200 MG ORAL CAPSULE 416536 BENZONATATE Inactive BACTRIM DS 800-160 MG ORAL TABLET 1 tab by mouth twice daily 2017 BACTRIM DS 800-160 MG ORAL TABLET 957502 TRIMETHOPRIM- SULFAMETHOXAZOLE Inactive BACTROBAN 2 % EXTERNAL OINTMENT Apply to affected area BID 05/18 BACTROBAN 2 % EXTERNAL OINTMENT 336526 MUPIROCIN Inactive CIPRO 500 MG ORAL TABLET 1 tablet by mouth twice daily CIPRO 500 MG ORAL TABLET 927164 CIPROFLOXACIN HCL Inactive CEFDINIR 300 MG ORAL CAPSULE by mouth twice a day CEFDINIR 300 MG ORAL CAPSULE 911619 CEFDINIR Inactive Advance Directives Directive Description Start [...] 6.2 % 4.3-6.0 cholesterol, serum 229 mg/dL 120-340 4795/07/24 triglyceride, serum, fasting 106 mg/dL 30-200 HDL cholesterol, serum 60 mg/dL 32-60 LDL cholesterol, serum 148 mg/dL 0-130 sodium, serum 139 mmol/L 183-675 2342/07/24 carbon dioxide, venous blood 34.8 mmol/L 21.0-32.0 [...] Panel - Chemistry cholesterol, serum 275 mg/dL 338-376 8439/11/07 triglyceride, serum, fasting 166 mg/dL 30-200 HDL cholesterol, serum 62 mg/dL 32-60 LDL cholesterol, serum 180 mg/dL 0-130 sodium, serum 141 mmol/L 886-225 3791/11/07 carbon dioxide, venous blood 26.3 mmol/L 21.0-32.0 [...] 0-19 Encounters Code Encounter Date Provider Facility CPT-13826 Level 3 Est. Patient 14:06:16 CDT Andre Barreto MD [facility] CPT-93033 Level 3 Est. Patient 09:16:36 CDT David King [facility] CPT-02828 Level 3 Est. Patient 09:24:01 DIETARY ASSISTANT David King [facility] CPT-64447 Level 3 Est. Patient 13:01:07 DIETARY ASSISTANT Solitario Howe MD [facility] CPT-02619 Level 4 Est. Patient 10:26:48 DIETARY ASSISTANT Andre Barreto MD [facility] CPT-21503 Level 4 Est. Patient 09:45:06 CDT Andre Barreto MD [facility] CPT-58347 Level 4 Est. Patient 11:53:39 DIETARY ASSISTANT Andre Barreto MD [facility] CPT-35488 Level 4 Est. Patient 14:21:31 CDT Andre Barreto MD [facility] CPT-17747 Level 4 Est. Patient 15:24:17 CDT Andre Barreto MD [facility] CPT-59671 Level 3 Est. Patient 10:36:40 CDT Andre Barreto MD [facility] CPT-82945 Level 4 Est. Patient 11:27:43 CDT Andre Barreto MD [facility] CPT-84133 Level 3 Est. Patient 10:57:31 DIETARY ASSISTANT Andre Barreto MD [facility] CPT-18014 Level 3 Est. Patient 13:53:13 DIETARY ASSISTANT Andre Barreto MD [facility] CPT-67983 Level 3 Est. Patient 09:16:12 CDT Andre Barreto MD [facility] CPT-79208 Level 3 Est. Patient 14:50:35 CDT Andre Barreto MD [facility] Procedures Code Procedure Name Date Entry Date Standard Description CPT-24585 Sono pelvis coley bladder only - XRAY USE ONLY 15:07:39 CDT CPT-45198 First Vx - Ix admin for Medicare patients 13:56:44 DIETARY ASSISTANT CPT-79243 Zostavax Subcutaneous Solution Reconstituted 17937 UNT/0.65ML 12/22 13:56:44 DIETARY ASSISTANT CPT-G0009 Administration of Pneumococcal Vaccine 10:12:50 CDT CPT-91011 Pneumovax 23 Injection Injectable 25 MCG/0.5ML 10:12:50 CDT CPT-G0439 Subsequent Annual Wellness Exam 09:49:25 CDT CPT-03568 First Vx - Ix admin for Medicare patients 17:55:11 DIETARY ASSISTANT CPT-48799 Fluzone High-Dose Intramuscular Suspension 17:55:11 DIETARY ASSISTANT CPT-33197 Venipuncture Draw Fee 14:11:36 CDT CPT-06743 Lipid - LAB USE ONLY 14:11:36 CDT CPT-51767 CMP - LAB USE ONLY 14:11:36 CDT CPT-G0438 Initial Annual Wellness Exam 13:29:06 CDT CPT-G0009 Administration of Pneumococcal Vaccine 13:26:57 CDT CPT-20642 Prevnar 13 Intramuscular Suspension 13:26:56 CDT 08/19 CPT-38608 Bone Density - XRAY USE ONLY 09:30:16 CDT CPT-Cryo Cryotherapy 08:59:26 DIETARY ASSISTANT CPT-Cryo Cryotherapy 08:46:02 CDT CPT-19634 Chest 2V Frontal and Lat 14:02:13 DIETARY ASSISTANT
--- OUTSIDE RECORDS SUMMARY | 2018-03-16 20:25 | XMS REPORT | Clinical Summary ---
Author Author Admin, EDUARDO Organization [facility] Address Unknown Phone Unavailable Allergies, Adverse [...] Coronary atherosclerosis of unspecified type of vessel, [place] or graft OBSTRUCTIVE SLEEP APNEA 327.23 Active [...] for up to 2 weeks BETAMETHASONE DIPROPIONATE 97496867517 Active Andre Barreto MD Active LIPITOR 40 MG TAB Take 1 tab by mouth daily ATORVASTATIN CALCIUM 25972931087 Active Andre Barreto MD Active ZOFRAN 4 MG TABS 1 po q6hr PRN Nausea ONDANSETRON HCL 86088383636 No Longer Active Andre Barreto MD Active CIPRO 500 MG TAB 1 tablet by mouth twice daily CIPROFLOXACIN HCL 14780566793 No Longer Active Andre Barreto MD Active SYMBICORT 160-4.5 MCG/ACT AERO 2 puffs inhaled bid BUDESONIDE- FORMOTEROL FUMARATE 54188642004 No Longer Active Andre Barreto MD Active LASIX 20 MG TAB 1 tablet by mouth daily PRN FUROSEMIDE 65720194217 Active Andre Barreto MD Active TOPROL XL 25 MG [id number] Take one by mouth daily METOPROLOL SUCCINATE 46965171036 Active Andre Barreto MD Active PLAVIX 75 MG TABS 1 tablet by mouth daily CLOPIDOGREL BISULFATE 23989719935 Active Andre Barreto MD Active NITROSTAT 0.4 MG SL TAB disolve 1 under tongue repeat if needed NITROGLYCERIN 17077219921 Active Andre Barreto MD Active DICLOFENAC SODIUM 75 MG TBEC 1 tablet by mouth twice daily DICLOFENAC SODIUM 35683779500 No Longer Active Andre Barreto MD Active FLUOXETINE HCL 20 MG CAPS TAKE 3 CAPSULES BY MOUTH ONCE DAILY. FLUOXETINE HCL 23846114327 Active Andre Barreto MD Active PROZAC 40 MG CAPS 1 cap by mouth at bedtime FLUOXETINE HCL 28302956679 No Longer Active Andre Barreto MD Active HYDROCODONE-ACETAMINOPHEN 5-325 MG TABS 1 po q 6hr PRN Pain HYDROCODONE-ACETAMINOPHEN 54097102953 No Longer Active Andre Barreto MD Active TRAMADOL HCL 50 MG TABS 2 po q 6 hrs prn TRAMADOL HCL 30919601682 Active Andre Barreto MD Active AMBIEN 5 MG TABS 1 po a hs prn ZOLPIDEM TARTRATE 80312318688 Active Andre Barreto MD Active BENICAR HCT 40-25 MG TABS Take one by mouth daily OLMESARTAN MEDOXOMIL- HCTZ 93198496640 Active Andre Barreto MD Active HYDROCODONE-ACETAMINOPHEN 5-325 MG TABS 1 po q 6hr PRN Pain HYDROCODONE-ACETAMINOPHEN 5-325 MG TABS 918858 HYDROCODONE-ACETAMINOPHEN Inactive PROZAC 40 MG CAPS 1 cap by mouth at bedtime PROZAC 40 MG CAPS 329902 FLUOXETINE HCL Inactive DICLOFENAC SODIUM 75 MG TBEC 1 tablet by mouth twice daily DICLOFENAC SODIUM 75 MG TBEC 678927 DICLOFENAC SODIUM Inactive SYMBICORT 160-4.5 MCG/ACT AERO 2 puffs inhaled bid SYMBICORT 160-4.5 MCG/ACT AERO BUDESONIDE-FORMOTEROL FUMARATE Inactive ZOFRAN 4 MG TABS 1 po q6hr PRN Nausea ZOFRAN 4 MG TABS 421914 ONDANSETRON HCL Inactive CIPRO 500 MG TAB 1 tablet by mouth twice daily CIPRO 500 MG TAB 676273 CIPROFLOXACIN HCL Inactive Vital Signs Date Name [...] 4.3-6.0 Encounters Code Encounter Date Provider Facility CPT-60121 Level 3 Est. Patient 10:36:40 CDT Andre Barreto MD [facility] CPT-72014 Level 4 Est. Patient 11:27:43 CDT Andre Barreto MD [facility] CPT-57013 Level 3 Est. Patient 10:57:31 BIBLICAL STUDIES PROFESSOR Andre Barreto MD [facility] CPT-19170 Level 3 Est. Patient 13:53:13 BIBLICAL STUDIES PROFESSOR Andre Barreto MD [facility] CPT-48451 Level 3 Est. Patient 09:16:12 CDT Andre Barreto MD [facility] CPT-96319 Level 3 Est. Patient 14:50:35 CDT Andre Barreto MD [facility] Procedures Code Procedure Name Date Entry Date Standard Description CPT-Cryo Cryotherapy 08:59:26 BIBLICAL STUDIES PROFESSOR CPT-Cryo Cryotherapy 08:46:02 CDT CPT-42015 Chest 2V Frontal and Lat 14:02:13 BIBLICAL STUDIES PROFESSOR
--- OUTSIDE RECORDS SUMMARY | 2018-03-16 20:25 | XMS REPORT | Clinical Summary ---
Author Author Admin, EDUARDO Organization [employer] Address Unknown Phone Unavailable Allergies, Adverse Reactions, [...] eczema, hands ICD-705.81 Inactive Andre Barreto MD Skin tag ICD-701.9 Inactive Andre Barreto MD 2014 Weakness, muscle ICD-728.87 Inactive Andre Barreto MD Medication List Medication Instructions Start Date Stop Date Generic Name NDC Status Provider Patient Instruction ATORVASTATIN CALCIUM 80 MG TABS 1 po qHS ATORVASTATIN CALCIUM 96978672686 Active Andre Barreto MD Active SYMBICORT 160-4.5 MCG/ACT AERO 2 puff BID BUDESONIDE- FORMOTEROL FUMARATE 19904753415 Active Andre Barreto MD Active PROAIR HFA 108 (90 BASE) MCG/ACT AERS 2 puffs four times a day as needed 2015 ALBUTEROL SULFATE 08835968245 Active Andre Barreto MD Active FLUOXETINE HCL 40 MG ORAL CAPS 1 po qd FLUOXETINE HCL 41510224938 Active Andre Barreto MD Active DETROL 2 MG ORAL TABS one tab daily TOLTERODINE TARTRATE 10397029106 Active Andre Barreto MD Active BENICAR HCT 40-25 MG TABS Take one by mouth daily OLMESARTAN MEDOXOMIL-HCTZ 07250715385 No Longer Active Andre Barreto MD Active LOSARTAN POTASSIUM-HCTZ 100-25 MG TABS 1 po qd LOSARTAN POTASSIUM-HCTZ 13854717342 Active Andre Barreto MD Active BETAMETHASONE DIPROPIONATE 0.05 % OINT Apply to affected areas BID for up to 2 weeks BETAMETHASONE DIPROPIONATE 00211944139 No Longer Active Andre Barreto MD Active ZOFRAN 4 MG TABS 1 po q6hr PRN Nausea ONDANSETRON HCL 99122601809 No Longer Active Andre Barreto MD Active CIPRO 500 MG TAB 1 tablet by mouth twice daily CIPROFLOXACIN HCL 64378301841 No Longer Active Andre Barreto MD Active SYMBICORT 160-4.5 MCG/ACT AERO 2 puffs inhaled bid BUDESONIDE- FORMOTEROL FUMARATE 90158074043 No Longer Active Andre Barreto MD Active LASIX 20 MG TAB 1 tablet by mouth daily PRN FUROSEMIDE 89161362710 Active Andre Barreto MD Active TOPROL XL 25 MG [id number] Take one by mouth daily METOPROLOL SUCCINATE 37209191198 Active Andre Barreto MD Active PLAVIX 75 MG TABS 1 tablet by mouth daily CLOPIDOGREL BISULFATE 05627900070 Active Andre Barreto MD Active NITROSTAT 0.4 MG SL TAB disolve 1 under tongue repeat if needed NITROGLYCERIN 81744506257 Active Andre Barreto MD Active DICLOFENAC SODIUM 75 MG TBEC 1 tablet by mouth twice daily DICLOFENAC SODIUM 67911173478 No Longer Active Andre Barreto MD Active PROZAC 40 MG CAPS 1 cap by mouth at bedtime FLUOXETINE HCL 07433218454 No Longer Active Andre Barreto MD Active HYDROCODONE-ACETAMINOPHEN 5-325 MG TABS 1 po q 6hr PRN Pain HYDROCODONE-ACETAMINOPHEN 76052187399 No Longer Active Andre Barreto MD Active TRAMADOL HCL 50 MG TABS 2 po q 6 hrs prn TRAMADOL HCL 21003981840 Active David King AUTO REPAIR TECHNICIAN Active AMBIEN 5 MG TABS 1 po a hs prn ZOLPIDEM TARTRATE 18445821874 Active Andre Barreto MD Active HYDROCODONE-ACETAMINOPHEN 5-325 MG TABS 1 po q 6hr PRN Pain HYDROCODONE-ACETAMINOPHEN 5-325 MG TABS 142692 HYDROCODONE-ACETAMINOPHEN Inactive PROZAC 40 MG CAPS 1 cap by mouth at bedtime PROZAC 40 MG CAPS 612475 FLUOXETINE HCL Inactive DICLOFENAC SODIUM 75 MG TBEC 1 tablet by mouth twice daily DICLOFENAC SODIUM 75 MG TBEC 100644 DICLOFENAC SODIUM Inactive SYMBICORT 160-4.5 MCG/ACT AERO 2 puffs inhaled bid SYMBICORT 160-4.5 MCG/ACT AERO BUDESONIDE-FORMOTEROL FUMARATE Inactive ZOFRAN 4 MG TABS 1 po q6hr PRN Nausea ZOFRAN 4 MG TABS 285147 ONDANSETRON HCL Inactive BETAMETHASONE DIPROPIONATE 0.05 % OINT Apply to affected areas BID for up to 2 weeks BETAMETHASONE DIPROPIONATE 0.05 % OINT 140889 BETAMETHASONE DIPROPIONATE Inactive BENICAR HCT 40-25 MG TABS Take one by mouth daily BENICAR HCT 40-25 MG TABS OLMESARTAN MEDOXOMIL-HCTZ Inactive CIPRO 500 MG TAB 1 tablet by mouth twice daily CIPRO 500 MG TAB 769403 CIPROFLOXACIN HCL Inactive Advance Directives Directive Description [...] ... - Chemistry sodium, serum 140 mmol/L 745-076 8493/06/28 carbon dioxide, venous blood 32.4 mmol/L 21.0-32.0 potassium, serum 4.0 mmol/L 3.5-5.2 chloride, serum 101 mmol/L 98-107 blood glucose 108 mg/dL 65-110 urea nitrogen, blood 20 mg/dL 7-18 creatinine, serum 0.98 mg/dL 0.55-1.30 alanine aminotransferase (SGPT), serum 44 U/L 12-78 aspartate aminotransferase (SGOT), serum 27 U/L 15-37 calcium, serum 9.4 mg/dL 8.5-10.1 bilirubin, serum, total 0.30 mg/dL 0.00-1.00 cholesterol, serum 264 mg/dL 967-451 4125/06/28 triglyceride, serum, fasting 146 mg/dL 30-200 HDL [...] 0-19 Encounters Code Encounter Date Provider Facility CPT-34602 Level 4 Est. Patient 15:24:17 CDT Andre Barreto MD [facility] CPT-49306 Level 3 Est. Patient 10:36:40 CDT Andre Barreto MD [facility] CPT-61773 Level 4 Est. Patient 11:27:43 CDT Andre Barreto MD [facility] CPT-80240 Level 3 Est. Patient 10:57:31 CNA PCT Andre Barreto MD [facility] CPT-43251 Level 3 Est. Patient 13:53:13 CNA PCT Andre Barreto MD [facility] CPT-70845 Level 3 Est. Patient 09:16:12 CDT Andre Barreto MD [facility] CPT-04706 Level 3 Est. Patient 14:50:35 CDT Andre Barreto MD [facility] Procedures Code Procedure Name Date Entry Date Standard Description CPT-G0438 Initial Annual Wellness Exam 13:29:06 CDT CPT-G0009 Administration of Pneumococcal Vaccine 13:26:57 CDT CPT-66575 Prevnar 13 Intramuscular Suspension 13:26:56 CDT 08/19 CPT-03585 Bone Density - XRAY USE ONLY 09:30:16 CDT CPT-Cryo Cryotherapy 08:59:26 CNA PCT CPT-Cryo Cryotherapy 08:46:02 CDT CPT-18610 Chest 2V Frontal and Lat 14:02:13 CNA PCT
--- OUTSIDE RECORDS SUMMARY | 2018-03-16 20:26 | XMS REPORT | Clinical Summary ---
Author Author Admin, EDUARDO Organization [employer] Address Unknown Phone Unavailable Allergies, Adverse Reactions, Alerts Allergy Name Reaction Description Start Date Severity Status Provider SULFA Mild No Longer Active Jillina Frazell SUPERVISOR [employer] PENICILLIN Mild No Longer Active Jillina Frazell SUPERVISOR [employer] ZINC Mild No Longer Active Jillina Frazell SUPERVISOR [employer]SEM[employer]Y SULFA Critical No Longer Active Marcelle Yesi [...] Coronary atherosclerosis of unspecified type of vessel, [place] or graft Obstructive sleep apnea [...] airway pressure rx V46.2 Active Pushpa Hernandez SUPERVISOR [employer]SEMBL[employer] Other dependence on machines, supplemental oxygen Osteopenia 733.90 Active Pushpa Hernandez APRN Disorder of bone and cartilage, unspecified Obstructive sleep apnea 327.23 Active Andre Barreto MD Obstructive sleep apnea (adult) (pediatric) Acute exacerbation of chronic bronchitis 491.22 Inactive Solitario Howe MD Obstructive chronic bronchitis with acute bronchitis Sinusitis 473.9 Active David King SUPERVISOR [employer]SEM[employer] Unspecified sinusitis (chronic) Abscess, skin 682.9 Active [...] Acute exacerbation of chronic bronchitis ICD-491.22 Inactive Soltiario Howe MD Medication List Medication Instructions Start Date Stop Date Generic Name NDC Status Provider Patient Instruction BACTROBAN 2 % EXTERNAL OINTMENT Apply to affected area BID 05/18 MUPIROCIN [id number] No Longer Active Moira Price MA Active CLINDAMYCIN HCL 300 MG ORAL CAPSULE 1 po QID x 7 days CLINDAMYCIN HCL 70288144674 Active Jillina Frazell SUPERVISOR [employer] Active BACTRIM DS 800-160 MG ORAL TABLET 1 tab by mouth twice daily 2017 TRIMETHOPRIM-SULFAMETHOXAZOLE 87235837038 No Longer Active Jillina Frazell SUPERVISOR [employer] Active GUAIFENESIN DM 400-20 MG ORAL TABLET 1 pill by mouth twice daily, if needed for cough DEXTROMETHORPHAN-GUAIFENESIN 99192748483 Active Jillina Frazell SUPERVISOR [employer] Active CEFDINIR 300 MG ORAL CAPSULE by mouth twice a day CEFDINIR 25838747940 No Longer Active Jillina Frazell SUPERVISOR [employer] Active BENZONATATE 200 MG ORAL CAPSULE 1 three times a day as needed for cough 03/27 BENZONATATE 90518746628 No Longer Active Luna Prabhakar Active ZITHROMAX Z-NEVAEH 250 MG ORAL TABLET 2 today and then 1 daily for 4 days 03/27 AZITHROMYCIN 10285118610 No Longer Active Luna Prabhakar Active PREDNISONE 20 MG ORAL TABLET 2 daily for 3 days then 1 daily for 3 days 03/27 PREDNISONE 90114948951 No Longer Active Luna Prabhakar Active ATORVASTATIN CALCIUM 40 MG ORAL TABLET 1 po qHS ATORVASTATIN CALCIUM 77234657355 Active Marcellekala Key RMA Active CLOPIDOGREL BISULFATE 75 MG ORAL TABLET 1 po qd CLOPIDOGREL BISULFATE 14411749420 Active Andre Barreto MD Active FUROSEMIDE 20 MG ORAL TABLET 1 po qd PRN Edema FUROSEMIDE 95319613560 Active Andre Barreto MD Active PROAIR HFA 108 (90 Base) MCG/ACT INHALATION AEROSOL SOLUTION 2 puffs q4hr PRN Shortness of air/Wheezing ALBUTEROL SULFATE 49627056554 Active Andre Barreto MD Active ATORVASTATIN CALCIUM 80 MG ORAL TABLET 1 po qHS ATORVASTATIN CALCIUM 64734174419 No Longer Active Andre Barreto MD Active AMBIEN 5 MG ORAL TABLET 1 po qHS PRN Insomnia ZOLPIDEM TARTRATE 04826403302 Active Andre Barreto MD Active DETROL 2 MG ORAL TABLET 1 po qd TOLTERODINE TARTRATE 03264087653 Active Andre Barreto MD Active NITROGLYCERIN 0.4 MG SUBLINGUAL TABLET SUBLINGUAL 1 SL q5min PRN Chest pain up to 3 doses NITROGLYCERIN 65014194056 Active Andre Barreto MD Active TOPROL XL 50 MG ORAL TABLET EXTENDED RELEASE 24 HOUR 1 po qd METOPROLOL SUCCINATE 32232634562 Active Andre Barreto MD Active SYMBICORT 160-4.5 MCG/ACT INHALATION AEROSOL 2 puff BID BUDESONIDE-FORMOTEROL FUMARATE 59475663311 Active Cayla VERA Active FLUOXETINE HCL 40 MG ORAL CAPSULE 1 po qd FLUOXETINE HCL 58248723725 Active Andre Barreto MD Active BENICAR HCT 40-25 MG ORAL TABLET Take one by mouth daily OLMESARTAN MEDOXOMIL-HCTZ 88298053876 No Longer Active Andre Barreto MD Active LOSARTAN POTASSIUM-HCTZ 100-25 MG ORAL TABLET 1 po qd LOSARTAN POTASSIUM-HCTZ 18309131923 Active Andre Barreto MD Active BETAMETHASONE DIPROPIONATE 0.05 % EXTERNAL OINTMENT Apply to affected areas BID for up to 2 weeks BETAMETHASONE DIPROPIONATE 50313831229 No Longer Active Andre Barreto MD Active ZOFRAN 4 MG ORAL TABLET 1 po q6hr PRN Nausea ONDANSETRON HCL 51999344973 No Longer Active Andre Barreto MD Active CIPRO 500 MG ORAL TABLET 1 tablet by mouth twice daily CIPROFLOXACIN HCL 61490062172 No Longer Active Andre Barreto MD Active SYMBICORT 160-4.5 MCG/ACT INHALATION AEROSOL 2 puffs inhaled bid BUDESONIDE-FORMOTEROL FUMARATE 60376693887 No Longer Active Andre Barreto MD Active DICLOFENAC SODIUM 75 MG ORAL TABLET DELAYED RELEASE 1 tablet by mouth twice daily DICLOFENAC SODIUM 50979740545 No Longer Active Andre Barreto MD Active PROZAC 40 MG ORAL CAPSULE 1 cap by mouth at bedtime FLUOXETINE HCL 21580538669 No Longer Active Andre Barreto MD Active HYDROCODONE-ACETAMINOPHEN 5-325 MG ORAL TABLET 1 po q 6hr PRN Pain HYDROCODONE-ACETAMINOPHEN 58723172322 No Longer Active Andre Barreto MD Active TRAMADOL HCL 50 MG ORAL TABLET 2 po q 6 hrs prn TRAMADOL HCL 61761738533 Active Andre Barreto MD Active HYDROCODONE-ACETAMINOPHEN 5-325 MG ORAL TABLET 1 po q 6hr PRN Pain HYDROCODONE-ACETAMINOPHEN 5-325 MG ORAL TABLET 525615 HYDROCODONE- ACETAMINOPHEN Inactive PROZAC 40 MG ORAL CAPSULE 1 cap by mouth at bedtime PROZAC 40 MG ORAL CAPSULE 615413 FLUOXETINE HCL Inactive DICLOFENAC SODIUM 75 MG ORAL TABLET DELAYED RELEASE 1 tablet by mouth twice daily DICLOFENAC SODIUM 75 MG ORAL TABLET DELAYED RELEASE 784138 DICLOFENAC SODIUM Inactive SYMBICORT 160-4.5 MCG/ACT INHALATION AEROSOL 2 puffs inhaled bid SYMBICORT 160-4.5 MCG/ACT INHALATION AEROSOL BUDESONIDE-FORMOTEROL FUMARATE Inactive ZOFRAN 4 MG ORAL TABLET 1 po q6hr PRN Nausea ZOFRAN 4 MG ORAL TABLET 160106 ONDANSETRON HCL Inactive BETAMETHASONE DIPROPIONATE 0.05 % EXTERNAL OINTMENT Apply to affected areas BID for up to 2 weeks BETAMETHASONE DIPROPIONATE 0.05 % EXTERNAL OINTMENT 222335 BETAMETHASONE DIPROPIONATE Inactive BENICAR HCT 40-25 MG ORAL TABLET Take one by mouth daily BENICAR HCT 40-25 MG ORAL TABLET 192854 OLMESARTAN MEDOXOMIL-HCTZ Inactive ATORVASTATIN CALCIUM 80 MG ORAL TABLET 1 po qHS ATORVASTATIN CALCIUM 80 MG ORAL TABLET 832204 ATORVASTATIN CALCIUM Inactive PREDNISONE 20 MG ORAL TABLET 2 daily for 3 days then 1 daily for 3 days 03/27 PREDNISONE 20 MG ORAL TABLET 162430 PREDNISONE Inactive ZITHROMAX Z-NEVAEH 250 MG ORAL TABLET 2 today and then 1 daily for 4 days 03/27 ZITHROMAX Z-NEVAEH 250 MG ORAL TABLET 113810 AZITHROMYCIN Inactive BENZONATATE 200 MG ORAL CAPSULE 1 three times a day as needed for cough 03/27 BENZONATATE 200 MG ORAL CAPSULE 778305 BENZONATATE Inactive BACTRIM DS 800-160 MG ORAL TABLET 1 tab by mouth twice daily 2017 BACTRIM DS 800-160 MG ORAL TABLET 538862 TRIMETHOPRIM- SULFAMETHOXAZOLE Inactive BACTROBAN 2 % EXTERNAL OINTMENT Apply to affected area BID 05/18 BACTROBAN 2 % EXTERNAL OINTMENT 675232 MUPIROCIN Inactive CIPRO 500 MG ORAL TABLET 1 tablet by mouth twice daily CIPRO 500 MG ORAL TABLET 851060 CIPROFLOXACIN HCL Inactive CEFDINIR 300 MG ORAL CAPSULE by mouth twice a day CEFDINIR 300 MG ORAL CAPSULE 818584 CEFDINIR Inactive Advance Directives Directive Description Start [...] 6.2 % 4.3-6.0 cholesterol, serum 229 mg/dL 128-753 6527/07/24 triglyceride, serum, fasting 106 mg/dL 30-200 HDL cholesterol, serum 60 mg/dL 32-60 LDL cholesterol, serum 148 mg/dL 0-130 sodium, serum 139 mmol/L 073-406 4099/07/24 carbon dioxide, venous blood 34.8 mmol/L 21.0-32.0 [...] Panel - Chemistry cholesterol, serum 275 mg/dL 218-357 6341/11/07 triglyceride, serum, fasting 166 mg/dL 30-200 HDL cholesterol, serum 62 mg/dL 32-60 LDL cholesterol, serum 180 mg/dL 0-130 sodium, serum 141 mmol/L 223-375 8941/11/07 carbon dioxide, venous blood 26.3 mmol/L 21.0-32.0 [...] 0-19 Encounters Code Encounter Date Provider Facility CPT-49102 Level 3 Est. Patient 14:06:16 CDT Andre Barreto MD [facility] CPT-67475 Level 3 Est. Patient 09:16:36 CDT David King [facility] CPT-96985 Level 3 Est. Patient 09:24:01 ELECTRONIC NEWS GATHERING EDITOR David King [facility] CPT-20095 Level 3 Est. Patient 13:01:07 ELECTRONIC NEWS GATHERING EDITOR Solitario Howe MD [facility] CPT-93691 Level 4 Est. Patient 10:26:48 ELECTRONIC NEWS GATHERING EDITOR Andre Barreto MD [facility] CPT-46503 Level 4 Est. Patient 09:45:06 CDT Andre Barreto MD [facility] CPT-27306 Level 4 Est. Patient 11:53:39 ELECTRONIC NEWS GATHERING EDITOR Andre Barreto MD [facility] CPT-25572 Level 4 Est. Patient 14:21:31 CDT Andre Barreto MD [facility] CPT-55393 Level 4 Est. Patient 15:24:17 CDT Andre Barreto MD [facility] CPT-06283 Level 3 Est. Patient 10:36:40 CDT Andre Barreto MD [facility] CPT-58012 Level 4 Est. Patient 11:27:43 CDT Andre Barreto MD [facility] CPT-91070 Level 3 Est. Patient 10:57:31 ELECTRONIC NEWS GATHERING EDITOR Andre Barreto MD [facility] CPT-24950 Level 3 Est. Patient 13:53:13 ELECTRONIC NEWS GATHERING EDITOR Andre Barreto MD [facility] CPT-18351 Level 3 Est. Patient 09:16:12 CDT Andre Barreto MD [facility] CPT-40102 Level 3 Est. Patient 14:50:35 CDT Andre Barreto MD [facility] Procedures Code Procedure Name Date Entry Date Standard Description CPT-60990 Sono pelvis coley bladder only - XRAY USE ONLY 15:07:39 CDT CPT-02676 First Vx - Ix admin for Medicare patients 13:56:44 ELECTRONIC NEWS GATHERING EDITOR CPT-68902 Zostavax Subcutaneous Solution Reconstituted 14697 UNT/0.65ML 12/22 13:56:44 ELECTRONIC NEWS GATHERING EDITOR CPT-G0009 Administration of Pneumococcal Vaccine 10:12:50 CDT CPT-49239 Pneumovax 23 Injection Injectable 25 MCG/0.5ML 10:12:50 CDT CPT-G0439 Subsequent Annual Wellness Exam 09:49:25 CDT CPT-82629 First Vx - Ix admin for Medicare patients 17:55:11 ELECTRONIC NEWS GATHERING EDITOR CPT-58851 Fluzone High-Dose Intramuscular Suspension 17:55:11 ELECTRONIC NEWS GATHERING EDITOR CPT-86290 Venipuncture Draw Fee 14:11:36 CDT CPT-28429 Lipid - LAB USE ONLY 14:11:36 CDT CPT-14691 CMP - LAB USE ONLY 14:11:36 CDT CPT-G0438 Initial Annual Wellness Exam 13:29:06 CDT CPT-G0009 Administration of Pneumococcal Vaccine 13:26:57 CDT CPT-80714 Prevnar 13 Intramuscular Suspension 13:26:56 CDT 08/19 CPT-66915 Bone Density - XRAY USE ONLY 09:30:16 CDT CPT-Cryo Cryotherapy 08:59:26 ELECTRONIC NEWS GATHERING EDITOR CPT-Cryo Cryotherapy 08:46:02 CDT CPT-51555 Chest 2V Frontal and Lat 14:02:13 ELECTRONIC NEWS GATHERING EDITOR
--- OUTSIDE RECORDS SUMMARY | 2018-03-16 20:27 | XMS REPORT | Clinical Summary ---
Author Author Admin, QIE Organization [facility] Address Unknown Phone Unavailable Allergies, Adverse Reactions, [...] Coronary atherosclerosis of unspecified type of vessel, [place] or graft OBSTRUCTIVE SLEEP APNEA 327.23 Active [...] for up to 2 weeks BETAMETHASONE DIPROPIONATE 40040232402 Active Andre Barreto MD Active LIPITOR 40 MG TAB Take 1 tab by mouth daily ATORVASTATIN CALCIUM 57565335890 Active Andre Barreto MD Active ZOFRAN 4 MG TABS 1 po q6hr PRN Nausea ONDANSETRON HCL 06488854179 No Longer Active Andre Barreto MD Active CIPRO 500 MG TAB 1 tablet by mouth twice daily CIPROFLOXACIN HCL 02777997532 No Longer Active Andre Barreto MD Active SYMBICORT 160-4.5 MCG/ACT AERO 2 puffs inhaled bid BUDESONIDE- FORMOTEROL FUMARATE 69222995094 No Longer Active Andre Barreto MD Active LASIX 20 MG TAB 1 tablet by mouth daily PRN FUROSEMIDE 06888262936 Active Andre Barreto MD Active TOPROL XL 25 MG [id number] Take one by mouth daily METOPROLOL SUCCINATE 04975161932 Active Andre Barreto MD Active PLAVIX 75 MG TABS 1 tablet by mouth daily CLOPIDOGREL BISULFATE 30790176860 Active Andre Barreto MD Active NITROSTAT 0.4 MG SL TAB disolve 1 under tongue repeat if needed NITROGLYCERIN 09781166420 Active Andre Barreto MD Active DICLOFENAC SODIUM 75 MG TBEC 1 tablet by mouth twice daily DICLOFENAC SODIUM 44778570835 No Longer Active Andre Barreto MD Active FLUOXETINE HCL 20 MG CAPS TAKE 3 CAPSULES BY MOUTH ONCE DAILY. FLUOXETINE HCL 95946391668 Active Andre Barreto MD Active PROZAC 40 MG CAPS 1 cap by mouth at bedtime FLUOXETINE HCL 91796306819 No Longer Active Andre Barreto MD Active HYDROCODONE-ACETAMINOPHEN 5-325 MG TABS 1 po q 6hr PRN Pain HYDROCODONE-ACETAMINOPHEN 26246707409 No Longer Active Andre Barreto MD Active TRAMADOL HCL 50 MG TABS 2 po q 6 hrs prn TRAMADOL HCL 83025612655 Active Andre Barreto MD Active AMBIEN 5 MG TABS 1 po a hs prn ZOLPIDEM TARTRATE 57626722792 Active Andre Barreto MD Active BENICAR HCT 40-25 MG TABS Take one by mouth daily OLMESARTAN MEDOXOMIL- HCTZ 36652801724 Active Andre Barreto MD Active HYDROCODONE-ACETAMINOPHEN 5-325 MG TABS 1 po q 6hr PRN Pain HYDROCODONE-ACETAMINOPHEN 5-325 MG TABS 751052 HYDROCODONE-ACETAMINOPHEN Inactive PROZAC 40 MG CAPS 1 cap by mouth at bedtime PROZAC 40 MG CAPS 943144 FLUOXETINE HCL Inactive DICLOFENAC SODIUM 75 MG TBEC 1 tablet by mouth twice daily DICLOFENAC SODIUM 75 MG TBEC 731483 DICLOFENAC SODIUM Inactive SYMBICORT 160-4.5 MCG/ACT AERO 2 puffs inhaled bid SYMBICORT 160-4.5 MCG/ACT AERO BUDESONIDE-FORMOTEROL FUMARATE Inactive ZOFRAN 4 MG TABS 1 po q6hr PRN Nausea ZOFRAN 4 MG TABS 816293 ONDANSETRON HCL Inactive CIPRO 500 MG TAB 1 tablet by mouth twice daily CIPRO 500 MG TAB 320563 CIPROFLOXACIN HCL Inactive Vital Signs Date Name [...] 4.3-6.0 Encounters Code Encounter Date Provider Facility CPT-71331 Level 3 Est. Patient 10:36:40 CDT Andre Barreto MD [facility] CPT-29708 Level 4 Est. Patient 11:27:43 CDT Andre Barreto MD [facility] CPT-56398 Level 3 Est. Patient 10:57:31 SEMICONDUCTOR WAFERS ETCH OPERATOR Andre Barreto MD [facility] CPT-33426 Level 3 Est. Patient 13:53:13 SEMICONDUCTOR WAFERS ETCH OPERATOR Andre Barreto MD [facility] CPT-69498 Level 3 Est. Patient 09:16:12 CDT Andre Barreto MD [facility] CPT-75347 Level 3 Est. Patient 14:50:35 CDT Andre Barreto MD [facility] Procedures Code Procedure Name Date Entry Date Standard Description CPT-Cryo Cryotherapy 08:59:26 SEMICONDUCTOR WAFERS ETCH OPERATOR CPT-Cryo Cryotherapy 08:46:02 CDT CPT-08774 Chest 2V Frontal and Lat 14:02:13 SEMICONDUCTOR WAFERS ETCH OPERATOR
--- OUTSIDE RECORDS SUMMARY | 2018-03-16 20:27 | XMS REPORT | Clinical Summary ---
Author Author Admin, EDUARDO Organization [employer] Address Unknown Phone Unavailable Allergies, Adverse Reactions, [...] Coronary atherosclerosis of unspecified type of vessel, [place] or graft Obstructive sleep apnea 327.23 Active [...] airway pressure rx V46.2 Active Pushpa Beverly [employer] Other dependence on machines, supplemental oxygen Osteopenia [...] MG TABS 1 po qHS ATORVASTATIN CALCIUM 49348100851 No Longer Active Andre Barreto MD Active AMBIEN 5 MG TABS 1 po qHS PRN Insomnia ZOLPIDEM TARTRATE 89852323401 Active Andre Barreto MD Active DETROL 2 MG ORAL TABS 1 po qd TOLTERODINE TARTRATE 61018635585 Active Andre Barreto MD Active NITROGLYCERIN 0.4 MG SL SUBL 1 SL q5min PRN Chest pain up to 3 doses NITROGLYCERIN 80888195736 Active Andre Barreto MD Active TOPROL XL 50 MG ORAL [id number] 1 po qd METOPROLOL SUCCINATE 58970032354 Active Andre Barreto MD Active PLAVIX 75 MG TABS 1 po qd CLOPIDOGREL BISULFATE 54465815496 Active Andre Barreto MD Active LASIX 20 MG TAB 1 po qd PRN Edema FUROSEMIDE 02426084960 Active Andre Barreto MD Active SYMBICORT 160-4.5 MCG/ACT AERO 2 puff BID BUDESONIDE- FORMOTEROL FUMARATE 21896884902 Active Cayla VERA Active PROAIR HFA 108 (90 BASE) MCG/ACT AERS 2 puffs four times a day as needed 2015 ALBUTEROL SULFATE 97982858475 Active Andre Barreto MD Active FLUOXETINE HCL 40 MG ORAL CAPS 1 po qd FLUOXETINE HCL 34582085059 Active Andre Barreto MD Active BENICAR HCT 40-25 MG TABS Take one by mouth daily OLMESARTAN MEDOXOMIL-HCTZ 09231230326 No Longer Active Andre Barreto MD Active LOSARTAN POTASSIUM-HCTZ 100-25 MG TABS 1 po qd LOSARTAN POTASSIUM-HCTZ 95836790945 Active Andre Barreto MD Active BETAMETHASONE DIPROPIONATE 0.05 % OINT Apply to affected areas BID for up to 2 weeks BETAMETHASONE DIPROPIONATE 55668300080 No Longer Active Andre Barreto MD Active ZOFRAN 4 MG TABS 1 po q6hr PRN Nausea ONDANSETRON HCL 92988301188 No Longer Active Andre Barreto MD Active CIPRO 500 MG TAB 1 tablet by mouth twice daily CIPROFLOXACIN HCL 58086528103 No Longer Active Andre Barreto MD Active SYMBICORT 160-4.5 MCG/ACT AERO 2 puffs inhaled bid BUDESONIDE- FORMOTEROL FUMARATE 78860736979 No Longer Active Andre Barreto MD Active DICLOFENAC SODIUM 75 MG TBEC 1 tablet by mouth twice daily DICLOFENAC SODIUM 86054257800 No Longer Active Andre Barreto MD Active PROZAC 40 MG CAPS 1 cap by mouth at bedtime FLUOXETINE HCL 06148201139 No Longer Active Andre Barreto MD Active HYDROCODONE-ACETAMINOPHEN 5-325 MG TABS 1 po q 6hr PRN Pain HYDROCODONE-ACETAMINOPHEN 61473328273 No Longer Active Andre Barreto MD Active TRAMADOL HCL 50 MG TABS 2 po q 6 hrs prn TRAMADOL HCL 98379951580 Active Andre Barreto MD Active HYDROCODONE-ACETAMINOPHEN 5-325 MG TABS 1 po q 6hr PRN Pain HYDROCODONE-ACETAMINOPHEN 5-325 MG TABS 121048 HYDROCODONE-ACETAMINOPHEN Inactive PROZAC 40 MG CAPS 1 cap by mouth at bedtime PROZAC 40 MG CAPS 229689 FLUOXETINE HCL Inactive DICLOFENAC SODIUM 75 MG TBEC 1 tablet by mouth twice daily DICLOFENAC SODIUM 75 MG TBEC 211544 DICLOFENAC SODIUM Inactive SYMBICORT 160-4.5 MCG/ACT AERO 2 puffs inhaled bid SYMBICORT 160-4.5 MCG/ACT AERO BUDESONIDE-FORMOTEROL FUMARATE Inactive ZOFRAN 4 MG TABS 1 po q6hr PRN Nausea ZOFRAN 4 MG TABS 118616 ONDANSETRON HCL Inactive BETAMETHASONE DIPROPIONATE 0.05 % OINT Apply to affected areas BID for up to 2 weeks BETAMETHASONE DIPROPIONATE 0.05 % OINT 090752 BETAMETHASONE DIPROPIONATE Inactive BENICAR HCT 40-25 MG TABS Take one by mouth daily BENICAR HCT 40-25 MG TABS 350820 OLMESARTAN MEDOXOMIL-HCTZ Inactive ATORVASTATIN CALCIUM 80 MG TABS 1 po qHS ATORVASTATIN CALCIUM 80 MG TABS 792385 ATORVASTATIN CALCIUM Inactive CIPRO 500 MG TAB 1 tablet by mouth twice daily CIPRO 500 MG TAB 350754 CIPROFLOXACIN HCL Inactive Advance Directives Directive Description [...] Panel - Chemistry sodium, serum 143 mmol/L 269-251 6597/09/27 carbon dioxide, venous blood 30.1 mmol/L 21.0-32.0 potassium, serum 3.9 mmol/L 3.5-5.2 chloride, serum 107 mmol/L 98-107 blood glucose 114 mg/dL 65-110 urea nitrogen, blood 14 mg/dL 7-18 creatinine, serum 0.79 mg/dL 0.55-1.30 alanine aminotransferase (SGPT), serum 44 U/L 12-78 aspartate aminotransferase (SGOT), serum 25 U/L 15-37 calcium, serum 8.5 mg/dL 8.5-10.1 bilirubin, serum, total 0.30 mg/dL 0.00-1.00 cholesterol, serum 152 mg/dL 669-967 0159/09/27 triglyceride, serum, fasting 85 mg/dL 30-200 HDL cholesterol, serum 59 mg/dL 32-96 LDL cholesterol, serum 76 mg/dL 0-130 Lab Report: HGBA1C, Lipid Panel, Comp. Metabolic Panel - Chemistry hemoglobin A1C, blood, as % of total hemoglobin 6.2 % 4.3-6.0 cholesterol, serum 229 mg/dL 721-293 0466/07/24 triglyceride, serum, fasting 106 mg/dL 30-200 HDL cholesterol, serum 60 mg/dL 32-60 LDL cholesterol, serum 148 mg/dL 0-130 sodium, serum 139 mmol/L 541-928 6010/07/24 carbon dioxide, venous blood 34.8 mmol/L 21.0-32.0 [...] 0.00-1.00 Encounters Code Encounter Date Provider Facility CPT-61229 Level 4 Est. Patient 09:45:06 CDT Andre Barreto MD [facility] CPT-06874 Level 4 Est. Patient 11:53:39 AIRLINE PILOT Andre Barreto MD [facility] CPT-70815 Level 4 Est. Patient 14:21:31 CDT Andre Barreto MD [facility] CPT-93948 Level 4 Est. Patient 15:24:17 CDT Andre Barreto MD [facility] CPT-39384 Level 3 Est. Patient 10:36:40 CDT Andre Barreto MD [facility] CPT-25305 Level 4 Est. Patient 11:27:43 CDT Andre Barreto MD [facility] CPT-74377 Level 3 Est. Patient 10:57:31 AIRLINE PILOT Andre Barreto MD [facility] CPT-23132 Level 3 Est. Patient 13:53:13 AIRLINE PILOT Andre Barreto MD [facility] CPT-64510 Level 3 Est. Patient 09:16:12 CDT Andre Barreto MD [facility] CPT-39938 Level 3 Est. Patient 14:50:35 CDT Andre Barreto MD [facility] Procedures Code Procedure Name Date Entry Date Standard Description CPT-G0009 Administration of Pneumococcal Vaccine 10:12:50 CDT CPT-47241 Pneumovax 23 Injection Injectable 25 MCG/0.5ML 10:12:50 CDT CPT-G0439 MC Subsequent Annual Wellness Exam 09:49:25 CDT CPT-49808 First Vx - Ix admin for Medicare patients 17:55:11 AIRLINE PILOT CPT-39447 Fluzone High-Dose Intramuscular Suspension 17:55:11 AIRLINE PILOT CPT-64630 Venipuncture Draw Fee 14:11:36 CDT CPT-11556 Lipid - LAB USE ONLY 14:11:36 CDT CPT-85268 CMP - LAB USE ONLY 14:11:36 CDT CPT-G0438 Initial Annual Wellness Exam 13:29:06 CDT CPT-G0009 Administration of Pneumococcal Vaccine 13:26:57 CDT CPT-43652 Prevnar 13 Intramuscular Suspension 13:26:56 CDT 08/19 CPT-88544 Bone Density - XRAY USE ONLY 09:30:16 CDT CPT-Cryo Cryotherapy 08:59:26 AIRLINE PILOT CPT-Cryo Cryotherapy 08:46:02 CDT CPT-43770 Chest 2V Frontal and Lat 14:02:13 AIRLINE PILOT
--- OUTSIDE RECORDS SUMMARY | 2018-03-16 20:28 | XMS REPORT | Clinical Summary ---
Author Author Admin, EDUARDO Organization [employer] Address Unknown Phone Unavailable Allergies, Adverse Reactions, [...] Andre Barreto MD Postmenopausal status ICD-V49.81 Inactive Anrde Barreto MD Family history of osteoporosis ICD-V17.81 Inactive Andre Barreto MD Unsteady gait ICD-781.2 Inactive Andre Barreto MD Acute exacerbation of chronic bronchitis ICD-491.22 Inactive Solitario Howe MD Medication List Medication Instructions Start Date Stop Date Generic Name NDC Status Provider Patient Instruction GUAIFENESIN DM 400-20 MG ORAL TABLET 1 pill by mouth twice daily, if needed for cough DEXTROMETHORPHAN-GUAIFENESIN 53830663980 Active David King APRN Active CEFDINIR 300 MG ORAL CAPSULE by mouth twice a day CEFDINIR 22671440103 Active David King GRAPHIC ARTIST Active BENZONATATE 200 MG ORAL CAPSULE 1 three times a day as needed for cough 03/27 BENZONATATE 74322402636 No Longer Active Luna Prabhakar Active ZITHROMAX Z-NEVAEH 250 MG ORAL TABLET 2 today and then 1 daily for 4 days 03/27 AZITHROMYCIN 19035017387 No Longer Active Luna Prabhakar Active PREDNISONE 20 MG ORAL TABLET 2 daily for 3 days then 1 daily for 3 days 03/27 PREDNISONE 40113482081 No Longer Active Luna Prabhakar Active ATORVASTATIN CALCIUM 40 MG ORAL TABLET 1 po qHS ATORVASTATIN CALCIUM 61106024846 Active Marcelle Key Isabella Active CLOPIDOGREL BISULFATE 75 MG ORAL TABLET 1 po qd CLOPIDOGREL BISULFATE 66670805753 Active Andre Barreto MD Active FUROSEMIDE 20 MG ORAL TABLET 1 po qd PRN Edema FUROSEMIDE 17021977412 Active Andre Barreto MD Active PROAIR HFA 108 (90 Base) MCG/ACT INHALATION AEROSOL SOLUTION 2 puffs q4hr PRN Shortness of air/Wheezing ALBUTEROL SULFATE 47741059767 Active Andre Barreto MD Active ATORVASTATIN CALCIUM 80 MG ORAL TABLET 1 po qHS ATORVASTATIN CALCIUM 39756613001 No Longer Active Andre Barreto MD Active AMBIEN 5 MG ORAL TABLET 1 po qHS PRN Insomnia ZOLPIDEM TARTRATE 58006891330 Active Andre Barreto MD Active DETROL 2 MG ORAL TABLET 1 po qd TOLTERODINE TARTRATE 17161488419 Active Andre Barreto MD Active NITROGLYCERIN 0.4 MG SUBLINGUAL TABLET SUBLINGUAL 1 SL q5min PRN Chest pain up to 3 doses NITROGLYCERIN 59276846312 Active Andre Barreto MD Active TOPROL XL 50 MG ORAL TABLET EXTENDED RELEASE 24 HOUR 1 po qd METOPROLOL SUCCINATE 95052286982 Active Andre Barreto MD Active SYMBICORT 160-4.5 MCG/ACT INHALATION AEROSOL 2 puff BID BUDESONIDE-FORMOTEROL FUMARATE 48846316683 Active Cayla VERA Active FLUOXETINE HCL 40 MG ORAL CAPSULE 1 po qd FLUOXETINE HCL 48396338668 Active Andre Barreto MD Active BENICAR HCT 40-25 MG ORAL TABLET Take one by mouth daily OLMESARTAN MEDOXOMIL-HCTZ 43365791494 No Longer Active Andre Barreto MD Active LOSARTAN POTASSIUM-HCTZ 100-25 MG ORAL TABLET 1 po qd LOSARTAN POTASSIUM-HCTZ 27667687999 Active Andre Barreto MD Active BETAMETHASONE DIPROPIONATE 0.05 % EXTERNAL OINTMENT Apply to affected areas BID for up to 2 weeks BETAMETHASONE DIPROPIONATE 60780992712 No Longer Active Andre Barreto MD Active ZOFRAN 4 MG ORAL TABLET 1 po q6hr PRN Nausea ONDANSETRON HCL 81741720421 No Longer Active Andre Barreto MD Active CIPRO 500 MG ORAL TABLET 1 tablet by mouth twice daily CIPROFLOXACIN HCL 17162088195 No Longer Active Andre Barreto MD Active SYMBICORT 160-4.5 MCG/ACT INHALATION AEROSOL 2 puffs inhaled bid BUDESONIDE-FORMOTEROL FUMARATE 68077062067 No Longer Active Andre Barreto MD Active DICLOFENAC SODIUM 75 MG ORAL TABLET DELAYED RELEASE 1 tablet by mouth twice daily DICLOFENAC SODIUM 67272368171 No Longer Active Andre Barreto MD Active PROZAC 40 MG ORAL CAPSULE 1 cap by mouth at bedtime FLUOXETINE HCL 90701376267 No Longer Active Andre Barreto MD Active HYDROCODONE-ACETAMINOPHEN 5-325 MG ORAL TABLET 1 po q 6hr PRN Pain HYDROCODONE-ACETAMINOPHEN 02881597872 No Longer Active Andre Barreto MD Active TRAMADOL HCL 50 MG ORAL TABLET 2 po q 6 hrs prn TRAMADOL HCL 61253199261 Active Andre Barreto MD Active HYDROCODONE-ACETAMINOPHEN 5-325 MG ORAL TABLET 1 po q 6hr PRN Pain HYDROCODONE-ACETAMINOPHEN 5-325 MG ORAL TABLET 212108 HYDROCODONE- ACETAMINOPHEN Inactive PROZAC 40 MG ORAL CAPSULE 1 cap by mouth at bedtime PROZAC 40 MG ORAL CAPSULE 595122 FLUOXETINE HCL Inactive DICLOFENAC SODIUM 75 MG ORAL TABLET DELAYED RELEASE 1 tablet by mouth twice daily DICLOFENAC SODIUM 75 MG ORAL TABLET DELAYED RELEASE 248675 DICLOFENAC SODIUM Inactive SYMBICORT 160-4.5 MCG/ACT INHALATION AEROSOL 2 puffs inhaled bid SYMBICORT 160-4.5 MCG/ACT INHALATION AEROSOL BUDESONIDE-FORMOTEROL FUMARATE Inactive ZOFRAN 4 MG ORAL TABLET 1 po q6hr PRN Nausea ZOFRAN 4 MG ORAL TABLET 768790 ONDANSETRON HCL Inactive BETAMETHASONE DIPROPIONATE 0.05 % EXTERNAL OINTMENT Apply to affected areas BID for up to 2 weeks BETAMETHASONE DIPROPIONATE 0.05 % EXTERNAL OINTMENT 355706 BETAMETHASONE DIPROPIONATE Inactive BENICAR HCT 40-25 MG ORAL TABLET Take one by mouth daily BENICAR HCT 40-25 MG ORAL TABLET 261058 OLMESARTAN MEDOXOMIL-HCTZ Inactive ATORVASTATIN CALCIUM 80 MG ORAL TABLET 1 po qHS ATORVASTATIN CALCIUM 80 MG ORAL TABLET 764829 ATORVASTATIN CALCIUM Inactive PREDNISONE 20 MG ORAL TABLET 2 daily for 3 days then 1 daily for 3 days 03/27 PREDNISONE 20 MG ORAL TABLET 868048 PREDNISONE Inactive ZITHROMAX Z-NEVAEH 250 MG ORAL TABLET 2 today and then 1 daily for 4 days 03/27 ZITHROMAX Z-NEVAEH 250 MG ORAL TABLET 243927 AZITHROMYCIN Inactive BENZONATATE 200 MG ORAL CAPSULE 1 three times a day as needed for cough 03/27 BENZONATATE 200 MG ORAL CAPSULE 342575 BENZONATATE Inactive CIPRO 500 MG ORAL TABLET 1 tablet by mouth twice daily CIPRO 500 MG ORAL TABLET 834188 CIPROFLOXACIN HCL Inactive Advance Directives Directive Description [...] 6.2 % 4.3-6.0 cholesterol, serum 229 mg/dL 506-089 0847/07/24 triglyceride, serum, fasting 106 mg/dL 30-200 HDL cholesterol, serum 60 mg/dL 32-60 LDL cholesterol, serum 148 mg/dL 0-130 sodium, serum 139 mmol/L 571-901 3717/07/24 carbon dioxide, venous blood 34.8 mmol/L 21.0-32.0 [...] Panel - Chemistry cholesterol, serum 275 mg/dL 690-349 0976/11/07 triglyceride, serum, fasting 166 mg/dL 30-200 HDL cholesterol, serum 62 mg/dL 32-60 LDL cholesterol, serum 180 mg/dL 0-130 sodium, serum 141 mmol/L 286-794 8115/11/07 carbon dioxide, venous blood 26.3 mmol/L 21.0-32.0 [...] 0-19 Encounters Code Encounter Date Provider Facility CPT-06373 Level 3 Est. Patient 09:24:01 YARD SWITCHER David King APRN [facility] CPT-21951 Level 3 Est. Patient 13:01:07 YARD SWITCHER Solitario Howe MD [facility] CPT-68924 Level 4 Est. Patient 10:26:48 YARD SWITCHER Andre Barreto MD [facility] CPT-10247 Level 4 Est. Patient 09:45:06 CDT Andre Barreto MD [facility] CPT-71450 Level 4 Est. Patient 11:53:39 YARD SWITCHER Andre Barreto MD [facility] CPT-25504 Level 4 Est. Patient 14:21:31 CDT Andre Barreto MD [facility] CPT-59845 Level 4 Est. Patient 15:24:17 CDT Andre Barreto MD [facility] CPT-07675 Level 3 Est. Patient 10:36:40 CDT Andre Barreto MD [facility] CPT-49461 Level 4 Est. Patient 11:27:43 CDT Andre Barreto MD [facility] CPT-11829 Level 3 Est. Patient 10:57:31 YARD SWITCHER Andre Barreto MD [facility] CPT-25114 Level 3 Est. Patient 13:53:13 YARD SWITCHER Andre Barreto MD [facility] CPT-25950 Level 3 Est. Patient 09:16:12 CDT Andre Barreto MD [facility] CPT-62207 Level 3 Est. Patient 14:50:35 CDT Andre Barreto MD [facility] Procedures Code Procedure Name Date Entry Date Standard Description CPT-88898 First Vx - Ix admin for Medicare patients 13:56:44 YARD SWITCHER CPT-99486 Zostavax Subcutaneous Solution Reconstituted 28340 UNT/0.65ML 12/22 13:56:44 YARD SWITCHER CPT-G0009 Administration of Pneumococcal Vaccine 10:12:50 CDT CPT-67939 Pneumovax 23 Injection Injectable 25 MCG/0.5ML 10:12:50 CDT CPT-G0439 Subsequent Annual Wellness Exam 09:49:25 CDT CPT-69805 First Vx - Ix admin for Medicare patients 17:55:11 YARD SWITCHER CPT-08582 Fluzone High-Dose Intramuscular Suspension 17:55:11 YARD SWITCHER CPT-80811 Venipuncture Draw Fee 14:11:36 CDT CPT-59166 Lipid - LAB USE ONLY 14:11:36 CDT CPT-70088 CMP - LAB USE ONLY 14:11:36 CDT CPT-G0438 Initial Annual Wellness Exam 13:29:06 CDT CPT-G0009 Administration of Pneumococcal Vaccine 13:26:57 CDT CPT-12305 Prevnar 13 Intramuscular Suspension 13:26:56 CDT 08/19 CPT-08221 Bone Density - XRAY USE ONLY 09:30:16 CDT CPT-Cryo Cryotherapy 08:59:26 YARD SWITCHER CPT-Cryo Cryotherapy 08:46:02 CDT CPT-17315 Chest 2V Frontal and Lat 14:02:13 YARD SWITCHER
--- OUTSIDE RECORDS SUMMARY | 2018-03-16 20:29 | XMS REPORT | Clinical Summary ---
Author Author Admin, EDUARDO Organization [email or web address] Address Unknown Phone Unavailable Allergies, Adverse Reactions, Alerts Allergy Name Reaction Description Start Date Severity Status Provider SULFA Mild No Longer Active Jillina Frazell BINDING DYER PENICILLIN Mild No Longer Active Jillina Frazell BINDING DYER ZINC Mild No Longer Active Jillina Frazell BINDING DYER SULFA Critical No Longer Active Marcelle Yesi [...] Coronary atherosclerosis of unspecified type of vessel, [place] or graft Obstructive sleep apnea 327.23 Active [...] airway pressure rx V46.2 Active Pushpa Hernandez BINDING DYER Other dependence on machines, supplemental oxygen Osteopenia 733.90 Active Pushpa Hernandez APRN Disorder of bone and cartilage, unspecified Obstructive sleep apnea 327.23 Active Andre Barreto MD Obstructive sleep apnea (adult) (pediatric) Acute exacerbation of chronic bronchitis 491.22 Inactive Solitario Howe MD Obstructive chronic bronchitis with acute bronchitis Sinusitis 473.9 Active David King BINDING DYER Unspecified sinusitis (chronic) Abscess, skin 682.9 Active [...] Apply to affected area BID 05/18 MUPIROCIN 17642960484 No Longer Active Moira Price MA Active CLINDAMYCIN HCL 300 MG ORAL CAPSULE 1 po QID x 7 days CLINDAMYCIN HCL 86827609023 No Longer Active Jillina Frazell BINDING DYER Active BACTRIM DS 800-160 MG ORAL TABLET 1 tab by mouth twice daily 2017 TRIMETHOPRIM-SULFAMETHOXAZOLE 05238168124 No Longer Active Jillina Frazell BINDING DYER Active GUAIFENESIN DM 400-20 MG ORAL TABLET 1 pill by mouth twice daily, if needed for cough DEXTROMETHORPHAN-GUAIFENESIN 58651457052 Active Jillina Frazell BINDING DYER Active CEFDINIR 300 MG ORAL CAPSULE by mouth twice a day CEFDINIR 43774630896 No Longer Active Jillina Frazell BINDING DYER Active BENZONATATE 200 MG ORAL CAPSULE 1 three times a day as needed for cough 03/27 BENZONATATE 58859609543 No Longer Active Luna Prabhakar Active ZITHROMAX Z-NEVAEH 250 MG ORAL TABLET 2 today and then 1 daily for 4 days 03/27 AZITHROMYCIN 59165681581 No Longer Active Luna Prabhakar Active PREDNISONE 20 MG ORAL TABLET 2 daily for 3 days then 1 daily for 3 days 03/27 PREDNISONE 29011025104 No Longer Active Luna Prabhakar Active ATORVASTATIN CALCIUM 40 MG ORAL TABLET 1 po qHS ATORVASTATIN CALCIUM 83133422732 Active Marcelle VERA Active CLOPIDOGREL BISULFATE 75 MG ORAL TABLET 1 po qd CLOPIDOGREL BISULFATE 36427343651 Active Andre Barreto MD Active FUROSEMIDE 20 MG ORAL TABLET 1 po qd PRN Edema FUROSEMIDE 98734519757 Active Andre Barreto MD Active PROAIR HFA 108 (90 Base) MCG/ACT INHALATION AEROSOL SOLUTION 2 puffs q4hr PRN Shortness of air/Wheezing ALBUTEROL SULFATE 74665302692 Active Andre Barreto MD Active ATORVASTATIN CALCIUM 80 MG ORAL TABLET 1 po qHS ATORVASTATIN CALCIUM 45415056030 No Longer Active Andre Barreto MD Active AMBIEN 5 MG ORAL TABLET 1 po qHS PRN Insomnia ZOLPIDEM TARTRATE 92489655062 Active Andre Barreto MD Active DETROL 2 MG ORAL TABLET 1 po qd TOLTERODINE TARTRATE 32474566921 Active Andre Barreto MD Active NITROGLYCERIN 0.4 MG SUBLINGUAL TABLET SUBLINGUAL 1 SL q5min PRN Chest pain up to 3 doses NITROGLYCERIN 88830108594 Active Andre Barreto MD Active TOPROL XL 50 MG ORAL TABLET EXTENDED RELEASE 24 HOUR 1 po qd METOPROLOL SUCCINATE 36917031425 Active Andre Barreto MD Active SYMBICORT 160-4.5 MCG/ACT INHALATION AEROSOL 2 puff BID BUDESONIDE-FORMOTEROL FUMARATE 47633993326 Active Cayla VERA Active FLUOXETINE HCL 40 MG ORAL CAPSULE 1 po qd FLUOXETINE HCL 24531906794 Active Andre Barreto MD Active BENICAR HCT 40-25 MG ORAL TABLET Take one by mouth daily OLMESARTAN MEDOXOMIL-HCTZ 64259550609 No Longer Active Andre Barreto MD Active LOSARTAN POTASSIUM-HCTZ 100-25 MG ORAL TABLET 1 po qd LOSARTAN POTASSIUM-HCTZ 76731977660 Active Andre Barreto MD Active BETAMETHASONE DIPROPIONATE 0.05 % EXTERNAL OINTMENT Apply to affected areas BID for up to 2 weeks BETAMETHASONE DIPROPIONATE 49278860939 No Longer Active Andre Barreto MD Active ZOFRAN 4 MG ORAL TABLET 1 po q6hr PRN Nausea ONDANSETRON HCL 36616517801 No Longer Active Andre Barreto MD Active CIPRO 500 MG ORAL TABLET 1 tablet by mouth twice daily CIPROFLOXACIN HCL 78054511859 No Longer Active Andre Barreto MD Active SYMBICORT 160-4.5 MCG/ACT INHALATION AEROSOL 2 puffs inhaled bid BUDESONIDE-FORMOTEROL FUMARATE 36389900459 No Longer Active Andre Barreto MD Active DICLOFENAC SODIUM 75 MG ORAL TABLET DELAYED RELEASE 1 tablet by mouth twice daily DICLOFENAC SODIUM 56525348427 No Longer Active Andre Barreto MD Active PROZAC 40 MG ORAL CAPSULE 1 cap by mouth at bedtime FLUOXETINE HCL 76252335904 No Longer Active Andre Barreto MD Active HYDROCODONE-ACETAMINOPHEN 5-325 MG ORAL TABLET 1 po q 6hr PRN Pain HYDROCODONE-ACETAMINOPHEN 20314450450 No Longer Active Andre Barreto MD Active TRAMADOL HCL 50 MG ORAL TABLET 2 po q 6 hrs prn TRAMADOL HCL 37100300962 Active Andre Barreto MD Active HYDROCODONE-ACETAMINOPHEN 5-325 MG ORAL TABLET 1 po q 6hr PRN Pain HYDROCODONE-ACETAMINOPHEN 5-325 MG ORAL TABLET 155323 HYDROCODONE- ACETAMINOPHEN Inactive PROZAC 40 MG ORAL CAPSULE 1 cap by mouth at bedtime PROZAC 40 MG ORAL CAPSULE 149116 FLUOXETINE HCL Inactive DICLOFENAC SODIUM 75 MG ORAL TABLET DELAYED RELEASE 1 tablet by mouth twice daily DICLOFENAC SODIUM 75 MG ORAL TABLET DELAYED RELEASE 470130 DICLOFENAC SODIUM Inactive SYMBICORT 160-4.5 MCG/ACT INHALATION AEROSOL 2 puffs inhaled bid SYMBICORT 160-4.5 MCG/ACT INHALATION AEROSOL BUDESONIDE-FORMOTEROL FUMARATE Inactive ZOFRAN 4 MG ORAL TABLET 1 po q6hr PRN Nausea ZOFRAN 4 MG ORAL TABLET 168183 ONDANSETRON HCL Inactive BETAMETHASONE DIPROPIONATE 0.05 % EXTERNAL OINTMENT Apply to affected areas BID for up to 2 weeks BETAMETHASONE DIPROPIONATE 0.05 % EXTERNAL OINTMENT 220917 BETAMETHASONE DIPROPIONATE Inactive BENICAR HCT 40-25 MG ORAL TABLET Take one by mouth daily BENICAR HCT 40-25 MG ORAL TABLET 538199 OLMESARTAN MEDOXOMIL-HCTZ Inactive ATORVASTATIN CALCIUM 80 MG ORAL TABLET 1 po qHS ATORVASTATIN CALCIUM 80 MG ORAL TABLET 680850 ATORVASTATIN CALCIUM Inactive PREDNISONE 20 MG ORAL TABLET 2 daily for 3 days then 1 daily for 3 days 03/27 PREDNISONE 20 MG ORAL TABLET 366717 PREDNISONE Inactive ZITHROMAX Z-NEVAEH 250 MG ORAL TABLET 2 today and then 1 daily for 4 days 03/27 ZITHROMAX Z-NEVAEH 250 MG ORAL TABLET 218781 AZITHROMYCIN Inactive BENZONATATE 200 MG ORAL CAPSULE 1 three times a day as needed for cough 03/27 BENZONATATE 200 MG ORAL CAPSULE 823023 BENZONATATE Inactive BACTRIM DS 800-160 MG ORAL TABLET 1 tab by mouth twice daily 2017 BACTRIM DS 800-160 MG ORAL TABLET 265791 TRIMETHOPRIM- SULFAMETHOXAZOLE Inactive BACTROBAN 2 % EXTERNAL OINTMENT Apply to affected area BID 05/18 BACTROBAN 2 % EXTERNAL OINTMENT 298627 MUPIROCIN Inactive CIPRO 500 MG ORAL TABLET 1 tablet by mouth twice daily CIPRO 500 MG ORAL TABLET 955031 CIPROFLOXACIN HCL Inactive CEFDINIR 300 MG ORAL CAPSULE by mouth twice a day CEFDINIR 300 MG ORAL CAPSULE 284184 CEFDINIR Inactive CLINDAMYCIN HCL 300 MG ORAL CAPSULE 1 po QID x 7 days CLINDAMYCIN HCL 300 MG ORAL CAPSULE 440968 CLINDAMYCIN HCL Inactive Advance Directives Directive Description [...] 6.2 % 4.3-6.0 cholesterol, serum 229 mg/dL 259-130 4785/07/24 triglyceride, serum, fasting 106 mg/dL 30-200 HDL cholesterol, serum 60 mg/dL 32-60 LDL cholesterol, serum 148 mg/dL 0-130 sodium, serum 139 mmol/L 647-301 0709/07/24 carbon dioxide, venous blood 34.8 mmol/L 21.0-32.0 [...] Panel - Chemistry cholesterol, serum 275 mg/dL 804-804 4355/11/07 triglyceride, serum, fasting 166 mg/dL 30-200 HDL cholesterol, serum 62 mg/dL 32-60 LDL cholesterol, serum 180 mg/dL 0-130 sodium, serum 141 mmol/L 174-822 2556/11/07 carbon dioxide, venous blood 26.3 mmol/L 21.0-32.0 [...] 0-19 Encounters Code Encounter Date Provider Facility CPT-77323 Level 3 Est. Patient 14:06:16 CDT Andre Barreto MD [facility] CPT-85800 Level 3 Est. Patient 09:16:36 CDT David King [facility] CPT-24961 Level 3 Est. Patient 09:24:01 INVESTMENTS MANAGER David King [facility] CPT-60923 Level 3 Est. Patient 13:01:07 INVESTMENTS MANAGER Solitario Howe MD [facility] CPT-61065 Level 4 Est. Patient 10:26:48 INVESTMENTS MANAGER Andre Barreto MD [facility] CPT-10027 Level 4 Est. Patient 09:45:06 CDT Andre Barreto MD [facility] CPT-63273 Level 4 Est. Patient 11:53:39 INVESTMENTS MANAGER Andre Barreto MD [facility] CPT-48116 Level 4 Est. Patient 14:21:31 CDT Andre Barreto MD [facility] CPT-60505 Level 4 Est. Patient 15:24:17 CDT Andre Barreto MD [facility] CPT-80249 Level 3 Est. Patient 10:36:40 CDT Andre Barreto MD [facility] CPT-16171 Level 4 Est. Patient 11:27:43 CDT Andre Barreto MD [facility] CPT-45778 Level 3 Est. Patient 10:57:31 INVESTMENTS MANAGER Andre Barreto MD [facility] CPT-39050 Level 3 Est. Patient 13:53:13 INVESTMENTS MANAGER Andre Barreto MD [facility] CPT-56729 Level 3 Est. Patient 09:16:12 CDT Andre Barreto MD [facility] CPT-16384 Level 3 Est. Patient 14:50:35 CDT Andre Barreto MD [facility] Procedures Code Procedure Name Date Entry Date Standard Description CPT-00869 Sono pelvis coley bladder only - XRAY USE ONLY 15:07:39 CDT CPT-05562 First Vx - Ix admin for Medicare patients 13:56:44 INVESTMENTS MANAGER CPT-52027 Zostavax Subcutaneous Solution Reconstituted 85678 UNT/0.65ML 12/22 13:56:44 INVESTMENTS MANAGER CPT-G0009 Administration of Pneumococcal Vaccine 10:12:50 CDT CPT-65190 Pneumovax 23 Injection Injectable 25 MCG/0.5ML 10:12:50 CDT CPT-G0439 Subsequent Annual Wellness Exam 09:49:25 CDT CPT-84348 First Vx - Ix admin for Medicare patients 17:55:11 INVESTMENTS MANAGER CPT-10017 Fluzone High-Dose Intramuscular Suspension 17:55:11 INVESTMENTS MANAGER CPT-09123 Venipuncture Draw Fee 14:11:36 CDT CPT-87376 Lipid - LAB USE ONLY 14:11:36 CDT CPT-26896 CMP - LAB USE ONLY 14:11:36 CDT CPT-G0438 Initial Annual Wellness Exam 13:29:06 CDT CPT-G0009 Administration of Pneumococcal Vaccine 13:26:57 CDT CPT-89581 Prevnar 13 Intramuscular Suspension 13:26:56 CDT 08/19 CPT-63208 Bone Density - XRAY USE ONLY 09:30:16 CDT CPT-Cryo Cryotherapy 08:59:26 INVESTMENTS MANAGER CPT-Cryo Cryotherapy 08:46:02 CDT CPT-45296 Chest 2V Frontal and Lat 14:02:13 INVESTMENTS MANAGER
--- OUTSIDE RECORDS SUMMARY | 2018-03-16 20:30 | XMS REPORT | Clinical Summary ---
Author Author Admin, EDUARDO Organization [employer] Address Unknown Phone Unavailable Allergies, Adverse Reactions, Alerts Allergy Name Reaction Description Start Date Severity Status Provider SULFA Mild No Longer Active Jillina Frazell SOLAR DEVELOPMENT ENGINEER PENICILLIN Mild No Longer Active Jillina Frazell SOLAR DEVELOPMENT ENGINEER ZINC Mild No Longer Active Jillina Frazell SOLAR DEVELOPMENT ENGINEER SULFA Critical No Longer Active Marcelle [...] Coronary atherosclerosis of unspecified type of vessel, [place] or graft Obstructive sleep apnea 327.23 Active [...] airway pressure rx V46.2 Active Pushpa Hernandez SOLAR DEVELOPMENT ENGINEER Other dependence on machines, supplemental oxygen Osteopenia 733.90 Active Pushpa Hernandez APRN Disorder of bone and cartilage, unspecified Obstructive sleep apnea 327.23 Active Andre Barreto MD Obstructive sleep apnea (adult) (pediatric) Acute exacerbation of chronic bronchitis 491.22 Inactive Solitario Howe MD Obstructive chronic bronchitis with acute bronchitis Sinusitis 473.9 Active David King SOLAR DEVELOPMENT ENGINEER Unspecified sinusitis (chronic) Abscess, skin 682.9 Active [...] po QID x 7 days CLINDAMYCIN HCL 92579507097 Active Jillina Frazell SOLAR DEVELOPMENT ENGINEER Active BACTRIM DS 800-160 MG ORAL TABLET 1 tab by mouth twice daily 2017 TRIMETHOPRIM-SULFAMETHOXAZOLE 12033477877 No Longer Active Jillina Frazell SOLAR DEVELOPMENT ENGINEER Active BACTROBAN 2 % EXTERNAL OINTMENT Apply to affected area BID MUPIROCIN 10318009595 Active Jillina Frazell SOLAR DEVELOPMENT ENGINEER Active GUAIFENESIN DM 400-20 MG ORAL TABLET 1 pill by mouth twice daily, if needed for cough DEXTROMETHORPHAN-GUAIFENESIN 09840722876 Active Jillina Frazell SOLAR DEVELOPMENT ENGINEER Active CEFDINIR 300 MG ORAL CAPSULE by mouth twice a day CEFDINIR 99631007569 No Longer Active Jillina Frazell SOLAR DEVELOPMENT ENGINEER Active BENZONATATE 200 MG ORAL CAPSULE 1 three times a day as needed for cough 03/27 BENZONATATE 55770207544 No Longer Active Luna Prabhakar Active ZITHROMAX Z-NEVAEH 250 MG ORAL TABLET 2 today and then 1 daily for 4 days 03/27 AZITHROMYCIN 33871848784 No Longer Active Luna Prabhakra Active PREDNISONE 20 MG ORAL TABLET 2 daily for 3 days then 1 daily for 3 days 03/27 PREDNISONE 26964021582 No Longer Active Luna Prabhakar Active ATORVASTATIN CALCIUM 40 MG ORAL TABLET 1 po qHS ATORVASTATIN CALCIUM 15146390662 Active Marcelle VERA Active CLOPIDOGREL BISULFATE 75 MG ORAL TABLET 1 po qd CLOPIDOGREL BISULFATE 71593960081 Active Andre Barreto MD Active FUROSEMIDE 20 MG ORAL TABLET 1 po qd PRN Edema FUROSEMIDE 23772242828 Active Andre Barreto MD Active PROAIR HFA 108 (90 Base) MCG/ACT INHALATION AEROSOL SOLUTION 2 puffs q4hr PRN Shortness of air/Wheezing ALBUTEROL SULFATE 80815801127 Active Andre Barreto MD Active ATORVASTATIN CALCIUM 80 MG ORAL TABLET 1 po qHS ATORVASTATIN CALCIUM 86325348983 No Longer Active Andre Barreto MD Active AMBIEN 5 MG ORAL TABLET 1 po qHS PRN Insomnia ZOLPIDEM TARTRATE 31597547004 Active Andre Barreto MD Active DETROL 2 MG ORAL TABLET 1 po qd TOLTERODINE TARTRATE 63036738494 Active Andre Barreto MD Active NITROGLYCERIN 0.4 MG SUBLINGUAL TABLET SUBLINGUAL 1 SL q5min PRN Chest pain up to 3 doses NITROGLYCERIN 94625743880 Active Andre Barreto MD Active TOPROL XL 50 MG ORAL TABLET EXTENDED RELEASE 24 HOUR 1 po qd METOPROLOL SUCCINATE 42513024333 Active Andre Barreto MD Active SYMBICORT 160-4.5 MCG/ACT INHALATION AEROSOL 2 puff BID BUDESONIDE-FORMOTEROL FUMARATE 23096991716 Active Cayla Flanagan Isabella Active FLUOXETINE HCL 40 MG ORAL CAPSULE 1 po qd FLUOXETINE HCL 16558346962 Active Andre Barreto MD Active BENICAR HCT 40-25 MG ORAL TABLET Take one by mouth daily OLMESARTAN MEDOXOMIL-HCTZ 62451777921 No Longer Active Andre Barreto MD Active LOSARTAN POTASSIUM-HCTZ 100-25 MG ORAL TABLET 1 po qd LOSARTAN POTASSIUM-HCTZ 84711343842 Active Andre Barreto MD Active BETAMETHASONE DIPROPIONATE 0.05 % EXTERNAL OINTMENT Apply to affected areas BID for up to 2 weeks BETAMETHASONE DIPROPIONATE 90366531205 No Longer Active Andre Barreto MD Active ZOFRAN 4 MG ORAL TABLET 1 po q6hr PRN Nausea ONDANSETRON HCL 08279112538 No Longer Active Andre aBrreto MD Active CIPRO 500 MG ORAL TABLET 1 tablet by mouth twice daily CIPROFLOXACIN HCL 17472583389 No Longer Active Andre Barreto MD Active SYMBICORT 160-4.5 MCG/ACT INHALATION AEROSOL 2 puffs inhaled bid BUDESONIDE-FORMOTEROL FUMARATE 60322616665 No Longer Active Andre Barreto MD Active DICLOFENAC SODIUM 75 MG ORAL TABLET DELAYED RELEASE 1 tablet by mouth twice daily DICLOFENAC SODIUM 38152077374 No Longer Active Andre Barreto MD Active PROZAC 40 MG ORAL CAPSULE 1 cap by mouth at bedtime FLUOXETINE HCL 02062847439 No Longer Active Andre Barreto MD Active HYDROCODONE-ACETAMINOPHEN 5-325 MG ORAL TABLET 1 po q 6hr PRN Pain HYDROCODONE-ACETAMINOPHEN 07290517752 No Longer Active Andre Barreto MD Active TRAMADOL HCL 50 MG ORAL TABLET 2 po q 6 hrs prn TRAMADOL HCL 42694068278 Active Andre Barreto MD Active HYDROCODONE-ACETAMINOPHEN 5-325 MG ORAL TABLET 1 po q 6hr PRN Pain HYDROCODONE-ACETAMINOPHEN 5-325 MG ORAL TABLET 884275 HYDROCODONE- ACETAMINOPHEN Inactive PROZAC 40 MG ORAL CAPSULE 1 cap by mouth at bedtime PROZAC 40 MG ORAL CAPSULE 738272 FLUOXETINE HCL Inactive DICLOFENAC SODIUM 75 MG ORAL TABLET DELAYED RELEASE 1 tablet by mouth twice daily DICLOFENAC SODIUM 75 MG ORAL TABLET DELAYED RELEASE 560772 DICLOFENAC SODIUM Inactive SYMBICORT 160-4.5 MCG/ACT INHALATION AEROSOL 2 puffs inhaled bid SYMBICORT 160-4.5 MCG/ACT INHALATION AEROSOL BUDESONIDE-FORMOTEROL FUMARATE Inactive ZOFRAN 4 MG ORAL TABLET 1 po q6hr PRN Nausea ZOFRAN 4 MG ORAL TABLET 218437 ONDANSETRON HCL Inactive BETAMETHASONE DIPROPIONATE 0.05 % EXTERNAL OINTMENT Apply to affected areas BID for up to 2 weeks BETAMETHASONE DIPROPIONATE 0.05 % EXTERNAL OINTMENT 315927 BETAMETHASONE DIPROPIONATE Inactive BENICAR HCT 40-25 MG ORAL TABLET Take one by mouth daily BENICAR HCT 40-25 MG ORAL TABLET 971226 OLMESARTAN MEDOXOMIL-HCTZ Inactive ATORVASTATIN CALCIUM 80 MG ORAL TABLET 1 po qHS ATORVASTATIN CALCIUM 80 MG ORAL TABLET 068167 ATORVASTATIN CALCIUM Inactive PREDNISONE 20 MG ORAL TABLET 2 daily for 3 days then 1 daily for 3 days 03/27 PREDNISONE 20 MG ORAL TABLET 724141 PREDNISONE Inactive ZITHROMAX Z-NEVAEH 250 MG ORAL TABLET 2 today and then 1 daily for 4 days 03/27 ZITHROMAX Z-NEVAEH 250 MG ORAL TABLET 877862 AZITHROMYCIN Inactive BENZONATATE 200 MG ORAL CAPSULE 1 three times a day as needed for cough 03/27 BENZONATATE 200 MG ORAL CAPSULE 561261 BENZONATATE Inactive BACTRIM DS 800-160 MG ORAL TABLET 1 tab by mouth twice daily 2017 BACTRIM DS 800-160 MG ORAL TABLET 814181 TRIMETHOPRIM- SULFAMETHOXAZOLE Inactive CIPRO 500 MG ORAL TABLET 1 tablet by mouth twice daily CIPRO 500 MG ORAL TABLET 754682 CIPROFLOXACIN HCL Inactive CEFDINIR 300 MG ORAL CAPSULE by mouth twice a day CEFDINIR 300 MG ORAL CAPSULE 839817 CEFDINIR Inactive Advance Directives Directive Description Start [...] 6.2 % 4.3-6.0 cholesterol, serum 229 mg/dL 483-195 4608/07/24 triglyceride, serum, fasting 106 mg/dL 30-200 HDL cholesterol, serum 60 mg/dL 32-60 LDL cholesterol, serum 148 mg/dL 0-130 sodium, serum 139 mmol/L 395-052 1843/07/24 carbon dioxide, venous blood 34.8 mmol/L 21.0-32.0 [...] Panel - Chemistry cholesterol, serum 275 mg/dL 960-693 0884/11/07 triglyceride, serum, fasting 166 mg/dL 30-200 HDL cholesterol, serum 62 mg/dL 32-60 LDL cholesterol, serum 180 mg/dL 0-130 sodium, serum 141 mmol/L 857-987 0262/11/07 carbon dioxide, venous blood 26.3 mmol/L 21.0-32.0 [...] 0-19 Encounters Code Encounter Date Provider Facility CPT-96979 Level 3 Est. Patient 14:06:16 CDT Andre Barreto MD [facility] CPT-69947 Level 3 Est. Patient 09:16:36 CDT David King [facility] CPT-99811 Level 3 Est. Patient 09:24:01 TRACTOR MECHANIC APPRENTICE David King [facility] CPT-12266 Level 3 Est. Patient 13:01:07 TRACTOR MECHANIC APPRENTICE Solitario Howe MD [facility] CPT-44477 Level 4 Est. Patient 10:26:48 TRACTOR MECHANIC APPRENTICE Andre Barreto MD [facility] CPT-08805 Level 4 Est. Patient 09:45:06 CDT Andre Barreto MD [facility] CPT-72562 Level 4 Est. Patient 11:53:39 TRACTOR MECHANIC APPRENTICE Andre Barreto MD [facility] CPT-26736 Level 4 Est. Patient 14:21:31 CDT Andre Barreto MD [facility] CPT-39238 Level 4 Est. Patient 15:24:17 CDT Andre Barreto MD [facility] CPT-34528 Level 3 Est. Patient 10:36:40 CDT Andre Barreto MD [facility] CPT-00586 Level 4 Est. Patient 11:27:43 CDT Andre Barreto MD [facility] CPT-35484 Level 3 Est. Patient 10:57:31 TRACTOR MECHANIC APPRENTICE Andre Barreto MD [facility] CPT-37430 Level 3 Est. Patient 13:53:13 TRACTOR MECHANIC APPRENTICE Andre Barreto MD [facility] CPT-16772 Level 3 Est. Patient 09:16:12 CDT Andre Barreto MD [facility] CPT-97255 Level 3 Est. Patient 14:50:35 CDT Andre Barreto MD [facility] Procedures Code Procedure Name Date Entry Date Standard Description CPT-49833 Sono pelvis coley bladder only - XRAY USE ONLY 15:07:39 CDT CPT-47986 First Vx - Ix admin for Medicare patients 13:56:44 TRACTOR MECHANIC APPRENTICE CPT-43813 Zostavax Subcutaneous Solution Reconstituted 08004 UNT/0.65ML 12/22 13:56:44 TRACTOR MECHANIC APPRENTICE CPT-G0009 Administration of Pneumococcal Vaccine 10:12:50 CDT CPT-15622 Pneumovax 23 Injection Injectable 25 MCG/0.5ML 10:12:50 CDT CPT-G0439 Subsequent Annual Wellness Exam 09:49:25 CDT CPT-27904 First Vx - Ix admin for Medicare patients 17:55:11 TRACTOR MECHANIC APPRENTICE CPT-19274 Fluzone High-Dose Intramuscular Suspension 17:55:11 TRACTOR MECHANIC APPRENTICE CPT-11158 Venipuncture Draw Fee 14:11:36 CDT CPT-31552 Lipid - LAB USE ONLY 14:11:36 CDT CPT-85479 CMP - LAB USE ONLY 14:11:36 CDT CPT-G0438 Initial Annual Wellness Exam 13:29:06 CDT CPT-G0009 Administration of Pneumococcal Vaccine 13:26:57 CDT CPT-01946 Prevnar 13 Intramuscular Suspension 13:26:56 CDT 08/19 CPT-07234 Bone Density - XRAY USE ONLY 09:30:16 CDT CPT-Cryo Cryotherapy 08:59:26 TRACTOR MECHANIC APPRENTICE CPT-Cryo Cryotherapy 08:46:02 CDT CPT-98823 Chest 2V Frontal and Lat 14:02:13 TRACTOR MECHANIC APPRENTICE
--- OUTSIDE RECORDS SUMMARY | 2018-03-16 20:30 | XMS REPORT | Clinical Summary ---
Author Author Admin, EDUARDO Organization [employer] Address Unknown Phone Unavailable Allergies, Adverse Reactions, [...] Coronary atherosclerosis of unspecified type of vessel, [place] or graft Obstructive sleep apnea 327.23 Active [...] airway pressure rx V46.2 Active Pushpa Beverly FERTILIZER MIXER Other dependence on machines, supplemental oxygen Osteopenia [...] Actinic keratosis ICD-702.0 Inactive Andre Barreto MD Skin tag ICD-701.9 Inactive Andre Barreto MD 2014 Medication List Medication Instructions Start Date Stop Date Generic Name NDC Status Provider Patient Instruction CLOPIDOGREL BISULFATE 75 MG ORAL TABS 1 po qd CLOPIDOGREL BISULFATE 95949548465 Active Andre Barreto MD Active FUROSEMIDE 20 MG ORAL TABS 1 po qd PRN Edema FUROSEMIDE 94142298878 Active Andre Barreto MD Active PROAIR HFA 108 (90 BASE) MCG/ACT INH AERS 2 puffs q4hr PRN Shortness of air/ Wheezing ALBUTEROL SULFATE 97936923231 Active Andre Barreto MD Active ATORVASTATIN CALCIUM 80 MG TABS 1 po qHS ATORVASTATIN CALCIUM 92253834633 No Longer Active Andre Barreto MD Active AMBIEN 5 MG TABS 1 po qHS PRN Insomnia ZOLPIDEM TARTRATE 93491022413 Active Andre Barreto MD Active DETROL 2 MG ORAL TABS 1 po qd TOLTERODINE TARTRATE 38688757039 Active Andre Barreto MD Active NITROGLYCERIN 0.4 MG SL SUBL 1 SL q5min PRN Chest pain up to 3 doses NITROGLYCERIN 13340336096 Active Andre Barreto MD Active TOPROL XL 50 MG ORAL [id number] 1 po qd METOPROLOL SUCCINATE 08984546878 Active Andre Barreto MD Active SYMBICORT 160-4.5 MCG/ACT AERO 2 puff BID BUDESONIDE- FORMOTEROL FUMARATE 20452486292 Active Cayla Flanagan [facility] Active FLUOXETINE HCL 40 MG ORAL CAPS 1 po qd FLUOXETINE HCL 75193198639 Active Andre Barreto MD Active BENICAR HCT 40-25 MG TABS Take one by mouth daily OLMESARTAN MEDOXOMIL-HCTZ 58460722203 No Longer Active Andre Barreto MD Active LOSARTAN POTASSIUM-HCTZ 100-25 MG TABS 1 po qd LOSARTAN POTASSIUM-HCTZ 42455938881 Active Andre Barreto MD Active BETAMETHASONE DIPROPIONATE 0.05 % OINT Apply to affected areas BID for up to 2 weeks BETAMETHASONE DIPROPIONATE 17853696657 No Longer Active Andre Barreto MD Active ZOFRAN 4 MG TABS 1 po q6hr PRN Nausea ONDANSETRON HCL 50355943428 No Longer Active Andre Barreto MD Active CIPRO 500 MG TAB 1 tablet by mouth twice daily CIPROFLOXACIN HCL 11911399513 No Longer Active Andre Barreto MD Active SYMBICORT 160-4.5 MCG/ACT AERO 2 puffs inhaled bid BUDESONIDE- FORMOTEROL FUMARATE 76346193699 No Longer Active Andre Barreto MD Active DICLOFENAC SODIUM 75 MG TBEC 1 tablet by mouth twice daily DICLOFENAC SODIUM 66332397729 No Longer Active Andre Barreto MD Active PROZAC 40 MG CAPS 1 cap by mouth at bedtime FLUOXETINE HCL 32914255454 No Longer Active Andre Barreto MD Active HYDROCODONE-ACETAMINOPHEN 5-325 MG TABS 1 po q 6hr PRN Pain HYDROCODONE-ACETAMINOPHEN 28586605359 No Longer Active Andre Barreto MD Active TRAMADOL HCL 50 MG TABS 2 po q 6 hrs prn TRAMADOL HCL 63706233954 Active Andre Barreto MD Active HYDROCODONE-ACETAMINOPHEN 5-325 MG TABS 1 po q 6hr PRN Pain HYDROCODONE-ACETAMINOPHEN 5-325 MG TABS 319975 HYDROCODONE-ACETAMINOPHEN Inactive PROZAC 40 MG CAPS 1 cap by mouth at bedtime PROZAC 40 MG CAPS 511121 FLUOXETINE HCL Inactive DICLOFENAC SODIUM 75 MG TBEC 1 tablet by mouth twice daily DICLOFENAC SODIUM 75 MG TBEC 016967 DICLOFENAC SODIUM Inactive SYMBICORT 160-4.5 MCG/ACT AERO 2 puffs inhaled bid SYMBICORT 160-4.5 MCG/ACT AERO BUDESONIDE-FORMOTEROL FUMARATE Inactive ZOFRAN 4 MG TABS 1 po q6hr PRN Nausea ZOFRAN 4 MG TABS 790918 ONDANSETRON HCL Inactive BETAMETHASONE DIPROPIONATE 0.05 % OINT Apply to affected areas BID for up to 2 weeks BETAMETHASONE DIPROPIONATE 0.05 % OINT 507391 BETAMETHASONE DIPROPIONATE Inactive BENICAR HCT 40-25 MG TABS Take one by mouth daily BENICAR HCT 40-25 MG TABS 632992 OLMESARTAN MEDOXOMIL-HCTZ Inactive ATORVASTATIN CALCIUM 80 MG TABS 1 po qHS ATORVASTATIN CALCIUM 80 MG TABS 778452 ATORVASTATIN CALCIUM Inactive CIPRO 500 MG TAB 1 tablet by mouth twice daily CIPRO 500 MG TAB 876505 CIPROFLOXACIN HCL Inactive Advance Directives Directive Description [...] mg/g{creat} 0-29 Lab Report: CBC - Hematology platelet count 263 10^3/MM^3 10*3/mm3 615-657 6582/07/24 red blood cell distribution width 13.4 % 11.6-14.8 mean corpuscular hemoglobin concentration, RBC 32.5 G/DL % 31.8- 35.4 mean corpuscular hemoglobin, RBC 30.0 pg 27.0-31.2 mean corpuscular volume, RBC 92 fL 80-97 [...] 0.50 mg/dL 0.00-1.00 cholesterol, serum 229 mg/dL 540-935 1216/07/24 triglyceride, serum, fasting 106 mg/dL 30-200 HDL [...] 0.50 mg/dL 0.00-1.00 cholesterol, serum 275 mg/dL 183-772 6157/11/07 triglyceride, serum, fasting 166 mg/dL 30-200 HDL cholesterol, serum 62 mg/dL 32-60 LDL cholesterol, serum 180 mg/dL 0-130 sodium, serum 141 mmol/L 136-145 Lab Report: MICROALB/CREAT W/RATIO - Chemistry albumin/creatinine ratio, urine <30 mg/g Normal mg/g mg/g{creat} 0-29 Lab Report: MICROALB/CREAT W/RATIO - Lab microalbumin, urine 10 mg/L 0-19 Encounters Code Encounter Date Provider Facility CPT-21098 Level 4 Est. Patient 10:26:48 FLATTENING MACHINE OPERATOR Andre Barreto MD [facility] CPT-85559 Level 4 Est. Patient 09:45:06 CDT Andre Barreto MD [facility] CPT-65105 Level 4 Est. Patient 11:53:39 FLATTENING MACHINE OPERATOR Andre Barreto MD [facility] CPT-88968 Level 4 Est. Patient 14:21:31 CDT Andre Barreto MD [facility] CPT-39463 Level 4 Est. Patient 15:24:17 CDT Andre Barreto MD [facility] CPT-20230 Level 3 Est. Patient 10:36:40 CDT Andre Barreto MD [facility] CPT-41422 Level 4 Est. Patient 11:27:43 CDT Andre Barreto MD [facility] CPT-94062 Level 3 Est. Patient 10:57:31 FLATTENING MACHINE OPERATOR Andre Barreto MD [facility] CPT-63600 Level 3 Est. Patient 13:53:13 FLATTENING MACHINE OPERATOR Andre Barreto MD [facility] CPT-65247 Level 3 Est. Patient 09:16:12 CDT Andre Barreto MD [facility] CPT-17612 Level 3 Est. Patient 14:50:35 CDT Andre Barreto MD [facility] Procedures Code Procedure Name Date Entry Date Standard Description CPT-72759 First Vx - Ix admin for Medicare patients 13:56:44 FLATTENING MACHINE OPERATOR CPT-26408 Zostavax Subcutaneous Solution Reconstituted 14869 UNT/0.65ML 12/22 13:56:44 FLATTENING MACHINE OPERATOR CPT-G0009 Administration of Pneumococcal Vaccine 10:12:50 CDT CPT-40254 Pneumovax 23 Injection Injectable 25 MCG/0.5ML 10:12:50 CDT CPT-G0439 [facility] Annual Wellness Exam 09:49:25 CDT CPT-19447 First Vx - Ix admin for Medicare patients 17:55:11 FLATTENING MACHINE OPERATOR CPT-90718 Fluzone High-Dose Intramuscular Suspension 17:55:11 FLATTENING MACHINE OPERATOR CPT-65659 Venipuncture Draw Fee 14:11:36 CDT CPT-92645 Lipid - LAB USE ONLY 14:11:36 CDT CPT-29167 CMP - LAB USE ONLY 14:11:36 CDT CPT-G0438 Initial Annual Wellness Exam 13:29:06 CDT CPT-G0009 Administration of Pneumococcal Vaccine 13:26:57 CDT CPT-37310 Prevnar 13 Intramuscular Suspension 13:26:56 CDT 08/19 CPT-71683 Bone Density - XRAY USE ONLY 09:30:16 CDT CPT-Cryo Cryotherapy 08:59:26 FLATTENING MACHINE OPERATOR CPT-Cryo Cryotherapy 08:46:02 CDT CPT-88662 Chest 2V Frontal and Lat 14:02:13 FLATTENING MACHINE OPERATOR
--- OUTSIDE RECORDS SUMMARY | 2018-03-16 20:32 | XMS REPORT | Clinical Summary ---
Author Author Admin, [place] Organization [facility] Address Unknown Phone Unavailable Allergies, Adverse Reactions, Alerts Allergy Name Reaction Description Start Date Severity Status Provider SULFA Mild No Longer Active Jillina Frazell ADOPTION MANAGER PENICILLIN Mild No Longer Active Jillina Frazell ADOPTION MANAGER ZINC Mild No Longer Active Jillina Frazell ADOPTION MANAGER SULFA Critical No Longer Active Marcelle [...] Coronary atherosclerosis of unspecified type of vessel, [place] or graft Obstructive sleep apnea 327.23 Active [...] Elevated blood sugar 790.29 Inactive Marcelle Key [facility] Other abnormal glucose Glucose intolerance 271.3 [...] 1 po q8hr PRN Dizziness MECLIZINE HCL 79623670983 No Longer Active Andre Barreto MD Active MELOXICAM 15 MG ORAL TABLET 1 po qd PRN Pain MELOXICAM 09598232868 Active Andre Barreto MD Active ATORVASTATIN CALCIUM 40 MG ORAL TABLET 1 po qHS ATORVASTATIN CALCIUM 68558228207 No Longer Active Andre Barreto MD Active ATORVASTATIN CALCIUM 20 MG ORAL TABLET 1 po MWF ATORVASTATIN CALCIUM 39904568606 Active Andre Barreto MD Active GUAIFENESIN DM 400-20 MG ORAL TABLET 1 pill by mouth twice daily, if needed for cough DEXTROMETHORPHAN-GUAIFENESIN 10740971720 No Longer Active Andre Barreto MD Active BACTROBAN 2 % EXTERNAL OINTMENT Apply to affected area BID 05/18 MUPIROCIN 91969539277 No Longer Active Moira Price MA Active CLINDAMYCIN HCL 300 MG ORAL CAPSULE 1 po QID x 7 days CLINDAMYCIN HCL 68024211046 No Longer Active Jillina Frazell ADOPTION MANAGER Active BACTRIM DS 800-160 MG ORAL TABLET 1 tab by mouth twice daily 2017 TRIMETHOPRIM-SULFAMETHOXAZOLE 57346967088 No Longer Active Jillina Frazell ADOPTION MANAGER Active CEFDINIR 300 MG ORAL CAPSULE by mouth twice a day CEFDINIR 66344201602 No Longer Active Jillina Frazell ADOPTION MANAGER Active BENZONATATE 200 MG ORAL CAPSULE 1 three times a day as needed for cough 03/27 BENZONATATE 42192907089 No Longer Active Luna Prabhakar Active ZITHROMAX Z-NEVAEH 250 MG ORAL TABLET 2 today and then 1 daily for 4 days 03/27 AZITHROMYCIN 76801038987 No Longer Active Luna Prabhakar Active PREDNISONE 20 MG ORAL TABLET 2 daily for 3 days then 1 daily for 3 days 03/27 PREDNISONE 04952700835 No Longer Active Luna Prabhakar Active CLOPIDOGREL BISULFATE 75 MG ORAL TABLET 1 po qd CLOPIDOGREL BISULFATE 33875363665 Active Andre Barreto MD Active FUROSEMIDE 20 MG ORAL TABLET 1 po qd PRN Edema FUROSEMIDE 52763059087 Active Andre Barreto MD Active PROAIR HFA 108 (90 Base) MCG/ACT INHALATION AEROSOL SOLUTION 2 puffs q4hr PRN Shortness of air/Wheezing ALBUTEROL SULFATE 46474290198 Active Andre Barreto MD Active ATORVASTATIN CALCIUM 80 MG ORAL TABLET 1 po qHS ATORVASTATIN CALCIUM 21457012308 No Longer Active Andre Barreto MD Active AMBIEN 5 MG ORAL TABLET 1 po qHS PRN Insomnia ZOLPIDEM TARTRATE 82840322700 Active Andre Barreto MD Active DETROL 2 MG ORAL TABLET 1 po qd TOLTERODINE TARTRATE 66396636879 Active Andre Barreto MD Active NITROGLYCERIN 0.4 MG SUBLINGUAL TABLET SUBLINGUAL 1 SL q5min PRN Chest pain up to 3 doses NITROGLYCERIN 42020146474 Active Andre Barreto MD Active TOPROL XL 50 MG ORAL TABLET EXTENDED RELEASE 24 HOUR 1 po qd METOPROLOL SUCCINATE 37923488052 Active Andre Barreto MD Active SYMBICORT 160-4.5 MCG/ACT INHALATION AEROSOL 2 puff BID BUDESONIDE-FORMOTEROL FUMARATE 73624810639 Active Cayla VERA Active FLUOXETINE HCL 40 MG ORAL CAPSULE 1 po qd FLUOXETINE HCL 25820010586 Active Andre Barreto MD Active BENICAR HCT 40-25 MG ORAL TABLET Take one by mouth daily OLMESARTAN MEDOXOMIL-HCTZ 73655276885 No Longer Active Andre Barreto MD Active LOSARTAN POTASSIUM-HCTZ 100-25 MG ORAL TABLET 1 po qd LOSARTAN POTASSIUM-HCTZ 20223894691 Active Andre Barreto MD Active BETAMETHASONE DIPROPIONATE 0.05 % EXTERNAL OINTMENT Apply to affected areas BID for up to 2 weeks BETAMETHASONE DIPROPIONATE 38616734931 No Longer Active Andre Barreto MD Active ZOFRAN 4 MG ORAL TABLET 1 po q6hr PRN Nausea ONDANSETRON HCL 00768563929 No Longer Active Andre Barreto MD Active CIPRO 500 MG ORAL TABLET 1 tablet by mouth twice daily CIPROFLOXACIN HCL 27717759216 No Longer Active Andre Barreto MD Active SYMBICORT 160-4.5 MCG/ACT INHALATION AEROSOL 2 puffs inhaled bid BUDESONIDE-FORMOTEROL FUMARATE 19925053360 No Longer Active Andre Barreto MD Active DICLOFENAC SODIUM 75 MG ORAL TABLET DELAYED RELEASE 1 tablet by mouth twice daily DICLOFENAC SODIUM 18710453802 No Longer Active Andre Barreto MD Active PROZAC 40 MG ORAL CAPSULE 1 cap by mouth at bedtime FLUOXETINE HCL 11295105381 No Longer Active Andre Barreto MD Active HYDROCODONE-ACETAMINOPHEN 5-325 MG ORAL TABLET 1 po q 6hr PRN Pain HYDROCODONE-ACETAMINOPHEN 34245209925 No Longer Active Andre Barreto MD Active TRAMADOL HCL 50 MG ORAL TABLET 2 po q 6 hrs prn TRAMADOL HCL 53707462227 Active Andre Barreto MD Active HYDROCODONE-ACETAMINOPHEN 5-325 MG ORAL TABLET 1 po q 6hr PRN Pain HYDROCODONE-ACETAMINOPHEN 5-325 MG ORAL TABLET 959617 HYDROCODONE- ACETAMINOPHEN Inactive PROZAC 40 MG ORAL CAPSULE 1 cap by mouth at bedtime PROZAC 40 MG ORAL CAPSULE 546749 FLUOXETINE HCL Inactive DICLOFENAC SODIUM 75 MG ORAL TABLET DELAYED RELEASE 1 tablet by mouth twice daily DICLOFENAC SODIUM 75 MG ORAL TABLET DELAYED RELEASE 359296 DICLOFENAC SODIUM Inactive SYMBICORT 160-4.5 MCG/ACT INHALATION AEROSOL 2 puffs inhaled bid SYMBICORT 160-4.5 MCG/ACT INHALATION AEROSOL BUDESONIDE-FORMOTEROL FUMARATE Inactive ZOFRAN 4 MG ORAL TABLET 1 po q6hr PRN Nausea ZOFRAN 4 MG ORAL TABLET 215919 ONDANSETRON HCL Inactive BETAMETHASONE DIPROPIONATE 0.05 % EXTERNAL OINTMENT Apply to affected areas BID for up to 2 weeks BETAMETHASONE DIPROPIONATE 0.05 % EXTERNAL OINTMENT 943225 BETAMETHASONE DIPROPIONATE Inactive BENICAR HCT 40-25 MG ORAL TABLET Take one by mouth daily BENICAR HCT 40-25 MG ORAL TABLET 304534 OLMESARTAN MEDOXOMIL-HCTZ Inactive ATORVASTATIN CALCIUM 80 MG ORAL TABLET 1 po qHS ATORVASTATIN CALCIUM 80 MG ORAL TABLET 413883 ATORVASTATIN CALCIUM Inactive PREDNISONE 20 MG ORAL TABLET 2 daily for 3 days then 1 daily for 3 days 03/27 PREDNISONE 20 MG ORAL TABLET 573459 PREDNISONE Inactive ZITHROMAX Z-NEVAEH 250 MG ORAL TABLET 2 today and then 1 daily for 4 days 03/27 ZITHROMAX Z-NEVAEH 250 MG ORAL TABLET 799777 AZITHROMYCIN Inactive BENZONATATE 200 MG ORAL CAPSULE 1 three times a day as needed for cough 03/27 BENZONATATE 200 MG ORAL CAPSULE 052864 BENZONATATE Inactive BACTRIM DS 800-160 MG ORAL TABLET 1 tab by mouth twice daily 2017 BACTRIM DS 800-160 MG ORAL TABLET 875034 TRIMETHOPRIM- SULFAMETHOXAZOLE Inactive BACTROBAN 2 % EXTERNAL OINTMENT Apply to affected area BID 05/18 BACTROBAN 2 % EXTERNAL OINTMENT MUPIROCIN Inactive GUAIFENESIN DM 400-20 MG ORAL TABLET 1 pill by mouth twice daily, if needed for cough GUAIFENESIN DM 400-20 MG ORAL TABLET 6624554 DEXTROMETHORPHAN-GUAIFENESIN Inactive ATORVASTATIN CALCIUM 40 MG ORAL TABLET 1 po qHS ATORVASTATIN CALCIUM 40 MG ORAL TABLET 399672 ATORVASTATIN CALCIUM Inactive MECLIZINE HCL 25 MG ORAL TABLET 1 po q8hr PRN Dizziness MECLIZINE HCL 25 MG ORAL TABLET 789362 MECLIZINE HCL Inactive CIPRO 500 MG ORAL TABLET 1 tablet by mouth twice daily CIPRO 500 MG ORAL TABLET 875191 CIPROFLOXACIN HCL Inactive CEFDINIR 300 MG ORAL CAPSULE by mouth twice a day CEFDINIR 300 MG ORAL CAPSULE 325348 CEFDINIR Inactive CLINDAMYCIN HCL 300 MG ORAL CAPSULE 1 po QID x 7 days CLINDAMYCIN HCL 300 MG ORAL CAPSULE 173644 CLINDAMYCIN HCL Inactive Advance Directives Directive Description [...] % 11.6-14.8 platelet count 263 10^3/MM^3 10*3/mm3 751-261 1790/07/03 leukocyte count, blood 8.1 10^3/MM^3 10*3/mm3 4.6-10.2 [...] Panel - Chemistry sodium, serum 139 mmol/L 534-800 0162/05/04 carbon dioxide, venous blood 28.7 mmol/L 21.0-32.0 [...] 6.2 % 4.3-6.0 cholesterol, serum 302 mg/dL 748-961 1112/05/04 triglyceride, serum, fasting 145 mg/dL 30-200 HDL cholesterol, serum 61 mg/dL 32-60 LDL cholesterol, serum 212 mg/dL 0-130 Lab Report: HGBA1C, Lipid Panel, Comp. Metabolic Panel - Chemistry hemoglobin A1C, blood, as % of total hemoglobin 6.2 % 4.3-6.0 cholesterol, serum 229 mg/dL 510-472 8738/07/24 triglyceride, serum, fasting 106 mg/dL 30-200 HDL cholesterol, serum 60 mg/dL 32-60 LDL cholesterol, serum 148 mg/dL 0-130 sodium, serum 139 mmol/L 850-813 0842/07/24 carbon dioxide, venous blood 34.8 mmol/L 21.0-32.0 [...] Panel - Chemistry cholesterol, serum 275 mg/dL 042-772 9040/11/07 triglyceride, serum, fasting 166 mg/dL 30-200 HDL cholesterol, serum 62 mg/dL 32-60 LDL cholesterol, serum 180 mg/dL 0-130 sodium, serum 141 mmol/L 233-978 7381/11/07 carbon dioxide, venous blood 26.3 mmol/L 21.0-32.0 [...] 0-19 Encounters Code Encounter Date Provider Facility CPT-24902 Level 4 Est. Patient 09:44:36 CDT Andre Barreto MD [facility] CPT-37558 Level 4 Est. Patient 10:07:14 CDT Andre Barreto MD [facility] CPT-20967 Level 3 Est. Patient 14:29:01 CDT Esa Jackson MD [facility] CPT-70346 Level 3 Est. Patient 14:06:16 CDT Andre Barreto MD [facility] CPT-88013 Level 3 Est. Patient 09:16:36 CDT David King [facility] CPT-95009 Level 3 Est. Patient 09:24:01 SALES REPRESENTATIVE LIVESTOCK David King [facility] CPT-07196 Level 3 Est. Patient 13:01:07 SALES REPRESENTATIVE LIVESTOCK Solitario Howe MD [facility] CPT-24461 Level 4 Est. Patient 10:26:48 SALES REPRESENTATIVE LIVESTOCK Andre Barreto MD [facility] CPT-42185 Level 4 Est. Patient 09:45:06 CDT Andre Barreto MD [facility] CPT-60347 Level 4 Est. Patient 11:53:39 SALES REPRESENTATIVE LIVESTOCK Andre Barreto MD [facility] CPT-45779 Level 4 Est. Patient 14:21:31 CDT Andre Barreto MD [facility] CPT-36850 Level 4 Est. Patient 15:24:17 CDT Andre Barreto MD [facility] CPT-49400 Level 3 Est. Patient 10:36:40 CDT Andre Barreto MD [facility] CPT-13789 Level 4 Est. Patient 11:27:43 CDT Andre Barreto MD [facility] CPT-96463 Level 3 Est. Patient 10:57:31 SALES REPRESENTATIVE LIVESTOCK Andre Barreto MD [facility] CPT-61062 Level 3 Est. Patient 13:53:13 SALES REPRESENTATIVE LIVESTOCK Andre Barreto MD [facility] CPT-08042 Level 3 Est. Patient 09:16:12 CDT Andre Barreto MD [facility] CPT-96551 Level 3 Est. Patient 14:50:35 CDT Andre Barreto MD [facility] Procedures Code Procedure Name Date Entry Date Standard Description CPT-40823 Bone Density - XRAY USE ONLY 11:55:39 CDT CPT-70970 Postop F/U Visit 14:31:27 CDT CPT-77401 Postop F/U Visit 14:30:20 CDT CPT-48811 Sono pelvis coley bladder only - XRAY USE ONLY 15:07:39 CDT CPT-74027 First Vx - Ix admin for Medicare patients 13:56:44 SALES REPRESENTATIVE LIVESTOCK CPT-05236 Zostavax Subcutaneous Solution Reconstituted 34159 UNT/0.65ML 12/22 13:56:44 SALES REPRESENTATIVE LIVESTOCK CPT-G0009 Administration of Pneumococcal Vaccine 10:12:50 CDT CPT-57778 Pneumovax 23 Injection Injectable 25 MCG/0.5ML 10:12:50 CDT CPT-G0439 Subsequent Annual Wellness Exam 09:49:25 CDT CPT-33558 First Vx - Ix admin for Medicare patients 17:55:11 SALES REPRESENTATIVE LIVESTOCK CPT-42698 Fluzone High-Dose Intramuscular Suspension 17:55:11 SALES REPRESENTATIVE LIVESTOCK CPT-84445 Venipuncture Draw Fee 14:11:36 CDT CPT-91907 Lipid - LAB USE ONLY 14:11:36 CDT CPT-80649 CMP - LAB USE ONLY 14:11:36 CDT CPT-G0438 Initial Annual Wellness Exam 13:29:06 CDT CPT-G0009 Administration of Pneumococcal Vaccine 13:26:57 CDT CPT-02226 Prevnar 13 Intramuscular Suspension 13:26:56 CDT 08/19 CPT-60268 Bone Density - XRAY USE ONLY 09:30:16 CDT CPT-Cryo Cryotherapy 08:59:26 SALES REPRESENTATIVE LIVESTOCK CPT-Cryo Cryotherapy 08:46:02 CDT CPT-86792 Chest 2V Frontal and Lat 14:02:13 SALES REPRESENTATIVE LIVESTOCK
--- OUTSIDE RECORDS SUMMARY | 2018-03-16 20:32 | XMS REPORT | Clinical Summary ---
Author Author Admin, EDUARDO Organization [employer] Address Unknown Phone Unavailable Allergies, Adverse Reactions, [...] Coronary atherosclerosis of unspecified type of vessel, [place] or graft Obstructive sleep apnea 327.23 Active [...] Patient Instruction TOPROL XL 50 MG ORAL [id number] 1 po qd METOPROLOL SUCCINATE 47651187096 Active Andre Barerto MD Active PLAVIX 75 MG TABS 1 po qd CLOPIDOGREL BISULFATE 63624792003 Active Andre Barreto MD Active LASIX 20 MG TAB 1 po qd PRN Edema FUROSEMIDE 45552328979 Active Andre Barreto MD Active ATORVASTATIN CALCIUM 80 MG TABS 1 po qHS ATORVASTATIN CALCIUM 06067950883 Active Andre Barreto MD Active SYMBICORT 160-4.5 MCG/ACT AERO 2 puff BID BUDESONIDE- FORMOTEROL FUMARATE 61062755854 Active Andre Barreto MD Active PROAIR HFA 108 (90 BASE) MCG/ACT AERS 2 puffs four times a day as needed 2015 ALBUTEROL SULFATE 75955062875 Active Andre Barreto MD Active FLUOXETINE HCL 40 MG ORAL CAPS 1 po qd FLUOXETINE HCL 28245181290 Active Andre Barreto MD Active DETROL 2 MG ORAL TABS one tab daily TOLTERODINE TARTRATE 61960246680 Active Andre Barreto MD Active BENICAR HCT 40-25 MG TABS Take one by mouth daily OLMESARTAN MEDOXOMIL-HCTZ 30604910270 No Longer Active Andre Barreto MD Active LOSARTAN POTASSIUM-HCTZ 100-25 MG TABS 1 po qd LOSARTAN POTASSIUM-HCTZ 51144283432 Active Andre Barreto MD Active BETAMETHASONE DIPROPIONATE 0.05 % OINT Apply to affected areas BID for up to 2 weeks BETAMETHASONE DIPROPIONATE 73034438691 No Longer Active Andre Barreto MD Active ZOFRAN 4 MG TABS 1 po q6hr PRN Nausea ONDANSETRON HCL 75022998909 No Longer Active Andre Barreto MD Active CIPRO 500 MG TAB 1 tablet by mouth twice daily CIPROFLOXACIN HCL 22572542233 No Longer Active Andre Barreto MD Active SYMBICORT 160-4.5 MCG/ACT AERO 2 puffs inhaled bid BUDESONIDE- FORMOTEROL FUMARATE 42861444745 No Longer Active Andre Barreto MD Active NITROSTAT 0.4 MG SL TAB disolve 1 under tongue repeat if needed NITROGLYCERIN 14529928306 Active Andre Barreto MD Active DICLOFENAC SODIUM 75 MG TBEC 1 tablet by mouth twice daily DICLOFENAC SODIUM 57640644392 No Longer Active Andre Barreto MD Active PROZAC 40 MG CAPS 1 cap by mouth at bedtime FLUOXETINE HCL 91097113839 No Longer Active Andre Barreto MD Active HYDROCODONE-ACETAMINOPHEN 5-325 MG TABS 1 po q 6hr PRN Pain HYDROCODONE-ACETAMINOPHEN 02462782849 No Longer Active Andre Barreto MD Active TRAMADOL HCL 50 MG TABS 2 po q 6 hrs prn TRAMADOL HCL 55845891643 Active Andre Barreto MD Active AMBIEN 5 MG TABS 1 po a hs prn ZOLPIDEM TARTRATE 08956694403 Active Andre Barreto MD Active HYDROCODONE-ACETAMINOPHEN 5-325 MG TABS 1 po q 6hr PRN Pain HYDROCODONE-ACETAMINOPHEN 5-325 MG TABS 228725 HYDROCODONE-ACETAMINOPHEN Inactive PROZAC 40 MG CAPS 1 cap by mouth at bedtime PROZAC 40 MG CAPS 777277 FLUOXETINE HCL Inactive DICLOFENAC SODIUM 75 MG TBEC 1 tablet by mouth twice daily DICLOFENAC SODIUM 75 MG TBEC 073552 DICLOFENAC SODIUM Inactive SYMBICORT 160-4.5 MCG/ACT AERO 2 puffs inhaled bid SYMBICORT 160-4.5 MCG/ACT AERO BUDESONIDE-FORMOTEROL FUMARATE Inactive ZOFRAN 4 MG TABS 1 po q6hr PRN Nausea ZOFRAN 4 MG TABS 527498 ONDANSETRON HCL Inactive BETAMETHASONE DIPROPIONATE 0.05 % OINT Apply to affected areas BID for up to 2 weeks BETAMETHASONE DIPROPIONATE 0.05 % OINT 229248 BETAMETHASONE DIPROPIONATE Inactive BENICAR HCT 40-25 MG TABS Take one by mouth daily BENICAR HCT 40-25 MG TABS OLMESARTAN MEDOXOMIL-HCTZ Inactive CIPRO 500 MG TAB 1 tablet by mouth twice daily CIPRO 500 MG TAB 662036 CIPROFLOXACIN HCL Inactive Advance Directives Directive Description [...] ... - Chemistry sodium, serum 140 mmol/L 523-395 6402/06/28 carbon dioxide, venous blood 32.4 mmol/L 21.0-32.0 potassium, serum 4.0 mmol/L 3.5-5.2 chloride, serum 101 mmol/L 98-107 blood glucose 108 mg/dL 65-110 urea nitrogen, blood 20 mg/dL 7-18 creatinine, serum 0.98 mg/dL 0.55-1.30 alanine aminotransferase (SGPT), serum 44 U/L 12-78 aspartate aminotransferase (SGOT), serum 27 U/L 15-37 calcium, serum 9.4 mg/dL 8.5-10.1 bilirubin, serum, total 0.30 mg/dL 0.00-1.00 cholesterol, serum 264 mg/dL 111-886 3241/06/28 triglyceride, serum, fasting 146 mg/dL 30-200 HDL [...] Panel - Chemistry sodium, serum 143 mmol/L 340-466 7063/09/27 carbon dioxide, venous blood 30.1 mmol/L 21.0-32.0 potassium, serum 3.9 mmol/L 3.5-5.2 chloride, serum 107 mmol/L 98-107 blood glucose 114 mg/dL 65-110 urea nitrogen, blood 14 mg/dL 7-18 creatinine, serum 0.79 mg/dL 0.55-1.30 alanine aminotransferase (SGPT), serum 44 U/L 12-78 aspartate aminotransferase (SGOT), serum 25 U/L 15-37 calcium, serum 8.5 mg/dL 8.5-10.1 bilirubin, serum, total 0.30 mg/dL 0.00-1.00 cholesterol, serum 152 mg/dL 846-473 2453/09/27 triglyceride, serum, fasting 85 mg/dL 30-200 HDL cholesterol, serum 59 mg/dL 32-96 LDL cholesterol, serum 76 mg/dL 0-130 Encounters Code Encounter Date Provider Facility CPT-21474 Level 4 Est. Patient 14:21:31 CDT Andre Barreto MD [facility] CPT-43424 Level 4 Est. Patient 15:24:17 CDT Andre Barreto MD [facility] CPT-96953 Level 3 Est. Patient 10:36:40 CDT Andre Barreto MD [facility] CPT-26947 Level 4 Est. Patient 11:27:43 CDT Andre Barreto MD [facility] CPT-91732 Level 3 Est. Patient 10:57:31 BROOM BUILDER Andre Barreto MD [facility] CPT-57538 Level 3 Est. Patient 13:53:13 BROOM BUILDER Andre Barreto MD [facility] CPT-88176 Level 3 Est. Patient 09:16:12 CDT Andre Barreto MD [facility] CPT-18394 Level 3 Est. Patient 14:50:35 CDT Andre Barreto MD [facility] Procedures Code Procedure Name Date Entry Date Standard Description CPT-50951 Venipuncture Draw Fee 14:11:36 CDT CPT-31657 Lipid - LAB USE ONLY 14:11:36 CDT CPT-87276 CMP - LAB USE ONLY 14:11:36 CDT CPT-G0438 Initial Annual Wellness Exam 13:29:06 CDT CPT-G0009 Administration of Pneumococcal Vaccine 13:26:57 CDT CPT-62800 Prevnar 13 Intramuscular Suspension 13:26:56 CDT 08/19 CPT-42014 Bone Density - XRAY USE ONLY 09:30:16 CDT CPT-Cryo Cryotherapy 08:59:26 BROOM BUILDER CPT-Cryo Cryotherapy 08:46:02 CDT CPT-19830 Chest 2V Frontal and Lat 14:02:13 BROOM BUILDER
[2018-03-16] MEDS: BACLOFEN 10 MG (LIORESAL) TAB PO SCH (20:33)
[2018-03-16] MEDS: DOCUSATE SODIUM 100 MG (COLACE) CAP PO SCH (20:33)
[2018-03-16] MEDS: ZOLPIDEM 5 MG (AMBIEN) TAB PO SCH (20:33)
[2018-03-16] MEDS: LACTULOSE SYRUP 10GM/15ML (ENULOSE) 30ML UDC PO SCH (20:33)
[2018-03-16] MEDS: TOLTERODINE LA 2 MG (DETROL LA) CAP PO SCH (20:33)
--- OUTSIDE RECORDS SUMMARY | 2018-03-16 20:33 | XMS REPORT | Clinical Summary ---
Author Author Admin, EDUARDO Organization [employer] Address Unknown Phone Unavailable Allergies, Adverse Reactions, [...] MG TABS 1 po qHS ATORVASTATIN CALCIUM 18715073899 Active Andre Barreto MD Active SYMBICORT 160-4.5 MCG/ACT AERO 2 puff BID BUDESONIDE- FORMOTEROL FUMARATE 01984594981 Active Andre Barreto MD Active PROAIR HFA 108 (90 BASE) MCG/ACT AERS 2 puffs four times a day as needed 2015 ALBUTEROL SULFATE 58009220069 Active Andre Barreto MD Active FLUOXETINE HCL 40 MG ORAL CAPS 1 po qd FLUOXETINE HCL 82049227802 Active Andre Barreto MD Active DETROL 2 MG ORAL TABS one tab daily TOLTERODINE TARTRATE 65345368733 Active Andre Barreto MD Active BENICAR HCT 40-25 MG TABS Take one by mouth daily OLMESARTAN MEDOXOMIL-HCTZ 12906016188 No Longer Active Andre Barreto MD Active LOSARTAN POTASSIUM-HCTZ 100-25 MG TABS 1 po qd LOSARTAN POTASSIUM-HCTZ 13516745207 Active Andre Barreto MD Active BETAMETHASONE DIPROPIONATE 0.05 % OINT Apply to affected areas BID for up to 2 weeks BETAMETHASONE DIPROPIONATE 74099498986 No Longer Active Andre Barreto MD Active ZOFRAN 4 MG TABS 1 po q6hr PRN Nausea ONDANSETRON HCL 54468669775 No Longer Active Andre Barreto MD Active CIPRO 500 MG TAB 1 tablet by mouth twice daily CIPROFLOXACIN HCL 99076595874 No Longer Active Andre Barreto MD Active SYMBICORT 160-4.5 MCG/ACT AERO 2 puffs inhaled bid BUDESONIDE- FORMOTEROL FUMARATE 80461743261 No Longer Active Andre Barreto MD Active LASIX 20 MG TAB 1 tablet by mouth daily PRN FUROSEMIDE 85271288084 Active Andre Barreto MD Active TOPROL XL 25 MG [id number] Take one by mouth daily METOPROLOL SUCCINATE 07314407750 Active Andre Barreto MD Active PLAVIX 75 MG TABS 1 tablet by mouth daily CLOPIDOGREL BISULFATE 62050625571 Active Andre Barreto MD Active NITROSTAT 0.4 MG SL TAB disolve 1 under tongue repeat if needed NITROGLYCERIN 08682953892 Active Andre Barreto MD Active DICLOFENAC SODIUM 75 MG TBEC 1 tablet by mouth twice daily DICLOFENAC SODIUM 33862958572 No Longer Active Andre Barreto MD Active PROZAC 40 MG CAPS 1 cap by mouth at bedtime FLUOXETINE HCL 11788147548 No Longer Active Andre Barreto MD Active HYDROCODONE-ACETAMINOPHEN 5-325 MG TABS 1 po q 6hr PRN Pain HYDROCODONE-ACETAMINOPHEN 51216051837 No Longer Active Andre Barreto MD Active TRAMADOL HCL 50 MG TABS 2 po q 6 hrs prn TRAMADOL HCL 18334632377 Active David King APRN Active AMBIEN 5 MG TABS 1 po a hs prn ZOLPIDEM TARTRATE 05120861491 Active Andre Barreto MD Active HYDROCODONE-ACETAMINOPHEN 5-325 MG TABS 1 po q 6hr PRN Pain HYDROCODONE-ACETAMINOPHEN 5-325 MG TABS 309788 HYDROCODONE-ACETAMINOPHEN Inactive PROZAC 40 MG CAPS 1 cap by mouth at bedtime PROZAC 40 MG CAPS 636743 FLUOXETINE HCL Inactive DICLOFENAC SODIUM 75 MG TBEC 1 tablet by mouth twice daily DICLOFENAC SODIUM 75 MG TBEC 508572 DICLOFENAC SODIUM Inactive SYMBICORT 160-4.5 MCG/ACT AERO 2 puffs inhaled bid SYMBICORT 160-4.5 MCG/ACT AERO BUDESONIDE-FORMOTEROL FUMARATE Inactive ZOFRAN 4 MG TABS 1 po q6hr PRN Nausea ZOFRAN 4 MG TABS 921697 ONDANSETRON HCL Inactive BETAMETHASONE DIPROPIONATE 0.05 % OINT Apply to affected areas BID for up to 2 weeks BETAMETHASONE DIPROPIONATE 0.05 % OINT 154572 BETAMETHASONE DIPROPIONATE Inactive BENICAR HCT 40-25 MG TABS Take one by mouth daily BENICAR HCT 40-25 MG TABS OLMESARTAN MEDOXOMIL-HCTZ Inactive CIPRO 500 MG TAB 1 tablet by mouth twice daily CIPRO 500 MG TAB 053157 CIPROFLOXACIN HCL Inactive Vital Signs Date Name [...] ... - Chemistry sodium, serum 140 mmol/L 457-431 8545/06/28 carbon dioxide, venous blood 32.4 mmol/L 21.0-32.0 potassium, serum 4.0 mmol/L 3.5-5.2 chloride, serum 101 mmol/L 98-107 blood glucose 108 mg/dL 65-110 urea nitrogen, blood 20 mg/dL 7-18 creatinine, serum 0.98 mg/dL 0.55-1.30 alanine aminotransferase (SGPT), serum 44 U/L 12-78 aspartate aminotransferase (SGOT), serum 27 U/L 15-37 calcium, serum 9.4 mg/dL 8.5-10.1 bilirubin, serum, total 0.30 mg/dL 0.00-1.00 cholesterol, serum 264 mg/dL 176-673 8068/06/28 triglyceride, serum, fasting 146 mg/dL 30-200 HDL [...] 0-19 Encounters Code Encounter Date Provider Facility CPT-50155 Level 4 Est. Patient 15:24:17 CDT Andre Barreto MD [facility] CPT-46597 Level 3 Est. Patient 10:36:40 CDT Andre Barreto MD [facility] CPT-49855 Level 4 Est. Patient 11:27:43 CDT Andre Barreto MD [facility] CPT-49878 Level 3 Est. Patient 10:57:31 CHIEF WRITER Andre Barreto MD [facility] CPT-29793 Level 3 Est. Patient 13:53:13 CHIEF WRITER Andre Barreto MD [facility] CPT-77350 Level 3 Est. Patient 09:16:12 CDT Andre Barreto MD [facility] CPT-73143 Level 3 Est. Patient 14:50:35 CDT Andre Barreto MD [facility] Procedures Code Procedure Name Date Entry Date Standard Description CPT-33160 Bone Density - XRAY USE ONLY 09:30:16 CDT CPT-Cryo Cryotherapy 08:59:26 CHIEF WRITER CPT-Cryo Cryotherapy 08:46:02 CDT CPT-18638 Chest 2V Frontal and Lat 14:02:13 CHIEF WRITER
--- OUTSIDE RECORDS SUMMARY | 2018-03-16 20:33 | XMS REPORT | Clinical Summary ---
Author Author Admin, QIE Organization [facility] Address Unknown Phone Unavailable Allergies, Adverse [...] Coronary atherosclerosis of unspecified type of vessel, mi'kmaq or graft OBSTRUCTIVE SLEEP APNEA 327.23 Active [...] 1 tab by mouth daily ATORVASTATIN CALCIUM 25860420224 Active Andre Barreto MD Active ZOFRAN 4 MG TABS 1 po q6hr PRN Nausea ONDANSETRON HCL 71851730648 No Longer Active Andre Barreto MD Active CIPRO 500 MG TAB 1 tablet by mouth twice daily CIPROFLOXACIN HCL 97428010761 No Longer Active Andre Barreto MD Active SYMBICORT 160-4.5 MCG/ACT AERO 2 puffs inhaled bid BUDESONIDE- FORMOTEROL FUMARATE 33441454744 No Longer Active Andre Barreto MD Active LASIX 20 MG TAB 1 tablet by mouth daily PRN FUROSEMIDE 87681053485 Active Andre Barreto MD Active TOPROL XL 25 MG [id number] Take one by mouth daily METOPROLOL SUCCINATE 98730132036 Active Andre Barreto MD Active PLAVIX 75 MG TABS 1 tablet by mouth daily CLOPIDOGREL BISULFATE 75824133404 Active Andre Barreto MD Active NITROSTAT 0.4 MG SL TAB disolve 1 under tongue repeat if needed NITROGLYCERIN 27989888114 Active Andre Barreto MD Active DICLOFENAC SODIUM 75 MG TBEC 1 tablet by mouth twice daily DICLOFENAC SODIUM 67903447351 No Longer Active Andre Barreto MD Active FLUOXETINE HCL 20 MG CAPS TAKE 3 CAPSULES BY MOUTH ONCE DAILY. FLUOXETINE HCL 23363430888 Active Andre Barreto MD Active PROZAC 40 MG CAPS 1 cap by mouth at bedtime FLUOXETINE HCL 52878087694 No Longer Active Andre Barreto MD Active HYDROCODONE-ACETAMINOPHEN 5-325 MG TABS 1 po q 6hr PRN Pain HYDROCODONE-ACETAMINOPHEN 13356777186 No Longer Active Andre Barreto MD Active TRAMADOL HCL 50 MG TABS 2 po q 6 hrs prn TRAMADOL HCL 50462394500 Active Andre Barreto MD Active AMBIEN 5 MG TABS 1 po a hs prn ZOLPIDEM TARTRATE 81284585441 Active Andre Barreto MD Active BENICAR HCT 40-25 MG TABS Take one by mouth daily OLMESARTAN MEDOXOMIL- HCTZ 13330827836 Active Andre Barreto MD Active HYDROCODONE-ACETAMINOPHEN 5-325 MG TABS 1 po q 6hr PRN Pain HYDROCODONE-ACETAMINOPHEN 5-325 MG TABS 206836 HYDROCODONE-ACETAMINOPHEN Inactive PROZAC 40 MG CAPS 1 cap by mouth at bedtime PROZAC 40 MG CAPS 511442 FLUOXETINE HCL Inactive DICLOFENAC SODIUM 75 MG TBEC 1 tablet by mouth twice daily DICLOFENAC SODIUM 75 MG TBEC 088375 DICLOFENAC SODIUM Inactive SYMBICORT 160-4.5 MCG/ACT AERO 2 puffs inhaled bid SYMBICORT 160-4.5 MCG/ACT AERO BUDESONIDE-FORMOTEROL FUMARATE Inactive ZOFRAN 4 MG TABS 1 po q6hr PRN Nausea ZOFRAN 4 MG TABS 604300 ONDANSETRON HCL Inactive CIPRO 500 MG TAB 1 tablet by mouth twice daily CIPRO 500 MG TAB 953762 CIPROFLOXACIN HCL Inactive Vital Signs Date Name [...] W/DIFF - Chemistry sodium, serum 145 mmol/L 495-280 9072/12/19 potassium, serum 4.3 mmol/L 3.5-5.2 chloride, serum 104 mmol/L 98-107 carbon dioxide, venous blood 29.9 mmol/L 21.0-32.0 blood glucose 121 mg/dL 65-110 urea nitrogen, blood 17 mg/dL 7-18 creatinine, serum 1.20 mg/dL 0.60-1.30 alanine aminotransferase (SGPT), serum 40 U/L 12-78 aspartate aminotransferase (SGOT), serum 25 U/L 15-37 calcium, serum 9.2 mg/dL 8.5-10.1 bilirubin, serum, total 0.50 mg/dL 0.00-1.00 cholesterol, serum 174 mg/dL 291-604 4634/12/19 triglyceride, serum, fasting 129 mg/dL 30-200 HDL [...] 4.3-6.0 Encounters Code Encounter Date Provider Facility CPT-57651 Level 4 Est. Patient 11:27:43 CDT Andre Barreto MD [facility] CPT-52342 Level 3 Est. Patient 10:57:31 RELAY SHOP SUPERVISOR Andre Barreto MD [facility] CPT-18323 Level 3 Est. Patient 13:53:13 RELAY SHOP SUPERVISOR Andre Barreto MD [facility] CPT-37538 Level 3 Est. Patient 09:16:12 CDT Andre Barreto MD [facility] CPT-23651 Level 3 Est. Patient 14:50:35 CDT Andre Barreto MD [facility] Procedures Code Procedure Name Date Entry Date Standard Description CPT-Cryo Cryotherapy 08:59:26 RELAY SHOP SUPERVISOR CPT-Cryo Cryotherapy 08:46:02 CDT CPT-82170 Chest 2V Frontal and Lat 14:02:13 RELAY SHOP SUPERVISOR
--- OUTSIDE RECORDS SUMMARY | 2018-03-16 20:34 | XMS REPORT | Clinical Summary ---
Author Author Admin, E Organization [facility] Address Unknown Phone Unavailable Allergies, Adverse [...] Coronary atherosclerosis of unspecified type of vessel, [place] ira or graft Obstructive sleep apnea 327.23 Active [...] Patient Instruction TOPROL XL 50 MG ORAL [id number] 1 po qd METOPROLOL SUCCINATE 72352767853 Active Andre Barreto MD Active PLAVIX 75 MG TABS 1 po qd CLOPIDOGREL BISULFATE 90005098508 Active Andre Barreto MD Active LASIX 20 MG TAB 1 po qd PRN Edema FUROSEMIDE 29684714747 Active Andre Barreto MD Active ATORVASTATIN CALCIUM 80 MG TABS 1 po qHS ATORVASTATIN CALCIUM 92822550635 Active Andre Barreto MD Active SYMBICORT 160-4.5 MCG/ACT AERO 2 puff BID BUDESONIDE- FORMOTEROL FUMARATE 24927570354 Active Andre Barreto MD Active PROAIR HFA 108 (90 BASE) MCG/ACT AERS 2 puffs four times a day as needed 2015 ALBUTEROL SULFATE 68676055321 Active Andre Barreto MD Active FLUOXETINE HCL 40 MG ORAL CAPS 1 po qd FLUOXETINE HCL 44504987933 Active Andre Barreto MD Active DETROL 2 MG ORAL TABS one tab daily TOLTERODINE TARTRATE 06390430064 Active nAdre Barreto MD Active BENICAR HCT 40-25 MG TABS Take one by mouth daily OLMESARTAN MEDOXOMIL-HCTZ 26154524124 No Longer Active Andre Barreto MD Active LOSARTAN POTASSIUM-HCTZ 100-25 MG TABS 1 po qd LOSARTAN POTASSIUM-HCTZ 85890198730 Active Andre Barreto MD Active BETAMETHASONE DIPROPIONATE 0.05 % OINT Apply to affected areas BID for up to 2 weeks BETAMETHASONE DIPROPIONATE 66301558878 No Longer Active Andre Barreto MD Active ZOFRAN 4 MG TABS 1 po q6hr PRN Nausea ONDANSETRON HCL 65177022919 No Longer Active Andre Barreto MD Active CIPRO 500 MG TAB 1 tablet by mouth twice daily CIPROFLOXACIN HCL 01408668162 No Longer Active Andre Barreto MD Active SYMBICORT 160-4.5 MCG/ACT AERO 2 puffs inhaled bid BUDESONIDE- FORMOTEROL FUMARATE 47973723606 No Longer Active Andre Barreto MD Active NITROSTAT 0.4 MG SL TAB disolve 1 under tongue repeat if needed NITROGLYCERIN 15118823412 Active Andre Barreto MD Active DICLOFENAC SODIUM 75 MG TBEC 1 tablet by mouth twice daily DICLOFENAC SODIUM 55866142023 No Longer Active Andre Barreto MD Active PROZAC 40 MG CAPS 1 cap by mouth at bedtime FLUOXETINE HCL 28162130379 No Longer Active Andre Barreto MD Active HYDROCODONE-ACETAMINOPHEN 5-325 MG TABS 1 po q 6hr PRN Pain HYDROCODONE-ACETAMINOPHEN 09351566263 No Longer Active Andre Barreto MD Active TRAMADOL HCL 50 MG TABS 2 po q 6 hrs prn TRAMADOL HCL 03788240032 Active Andre Barreto MD Active AMBIEN 5 MG TABS 1 po a hs prn ZOLPIDEM TARTRATE 72223141356 Active Andre Barreto MD Active HYDROCODONE-ACETAMINOPHEN 5-325 MG TABS 1 po q 6hr PRN Pain HYDROCODONE-ACETAMINOPHEN 5-325 MG TABS 855128 HYDROCODONE-ACETAMINOPHEN Inactive PROZAC 40 MG CAPS 1 cap by mouth at bedtime PROZAC 40 MG CAPS 516012 FLUOXETINE HCL Inactive DICLOFENAC SODIUM 75 MG TBEC 1 tablet by mouth twice daily DICLOFENAC SODIUM 75 MG TBEC 229300 DICLOFENAC SODIUM Inactive SYMBICORT 160-4.5 MCG/ACT AERO 2 puffs inhaled bid SYMBICORT 160-4.5 MCG/ACT AERO BUDESONIDE-FORMOTEROL FUMARATE Inactive ZOFRAN 4 MG TABS 1 po q6hr PRN Nausea ZOFRAN 4 MG TABS 438870 ONDANSETRON HCL Inactive BETAMETHASONE DIPROPIONATE 0.05 % OINT Apply to affected areas BID for up to 2 weeks BETAMETHASONE DIPROPIONATE 0.05 % OINT 500136 BETAMETHASONE DIPROPIONATE Inactive BENICAR HCT 40-25 MG TABS Take one by mouth daily BENICAR HCT 40-25 MG TABS OLMESARTAN MEDOXOMIL-HCTZ Inactive CIPRO 500 MG TAB 1 tablet by mouth twice daily CIPRO 500 MG TAB 755864 CIPROFLOXACIN HCL Inactive Advance Directives Directive Description [...] ... - Chemistry sodium, serum 140 mmol/L 983-927 6782/06/28 carbon dioxide, venous blood 32.4 mmol/L 21.0-32.0 potassium, serum 4.0 mmol/L 3.5-5.2 chloride, serum 101 mmol/L 98-107 blood glucose 108 mg/dL 65-110 urea nitrogen, blood 20 mg/dL 7-18 creatinine, serum 0.98 mg/dL 0.55-1.30 alanine aminotransferase (SGPT), serum 44 U/L 12-78 aspartate aminotransferase (SGOT), serum 27 U/L 15-37 calcium, serum 9.4 mg/dL 8.5-10.1 bilirubin, serum, total 0.30 mg/dL 0.00-1.00 cholesterol, serum 264 mg/dL 498-536 8281/06/28 triglyceride, serum, fasting 146 mg/dL 30-200 HDL [...] Panel - Chemistry sodium, serum 143 mmol/L 927-962 1888/09/27 carbon dioxide, venous blood 30.1 mmol/L 21.0-32.0 potassium, serum 3.9 mmol/L 3.5-5.2 chloride, serum 107 mmol/L 98-107 blood glucose 114 mg/dL 65-110 urea nitrogen, blood 14 mg/dL 7-18 creatinine, serum 0.79 mg/dL 0.55-1.30 alanine aminotransferase (SGPT), serum 44 U/L 12-78 aspartate aminotransferase (SGOT), serum 25 U/L 15-37 calcium, serum 8.5 mg/dL 8.5-10.1 bilirubin, serum, total 0.30 mg/dL 0.00-1.00 cholesterol, serum 152 mg/dL 643-776 8326/09/27 triglyceride, serum, fasting 85 mg/dL 30-200 HDL cholesterol, serum 59 mg/dL 32-96 LDL cholesterol, serum 76 mg/dL 0-130 Encounters Code Encounter Date Provider Facility CPT-84404 Level 4 Est. Patient 14:21:31 CDT Andre Barreto MD [facility] CPT-39932 Level 4 Est. Patient 15:24:17 CDT Andre Barreto MD [facility] CPT-46209 Level 3 Est. Patient 10:36:40 CDT Andre Barreto MD [facility] CPT-08550 Level 4 Est. Patient 11:27:43 CDT Andre Barreto MD [facility] CPT-43444 Level 3 Est. Patient 10:57:31 HYDROMETALLURGICAL ENGINEER Andre Barreto MD [facility] CPT-42427 Level 3 Est. Patient 13:53:13 HYDROMETALLURGICAL ENGINEER Andre Barreto MD [facility] CPT-20623 Level 3 Est. Patient 09:16:12 CDT Andre Barreto MD [facility] CPT-61919 Level 3 Est. Patient 14:50:35 CDT Andre Barreto MD [facility] Procedures Code Procedure Name Date Entry Date Standard Description CPT-70987 Venipuncture Draw Fee 14:11:36 CDT CPT-49362 Lipid - LAB USE ONLY 14:11:36 CDT CPT-32209 CMP - LAB USE ONLY 14:11:36 CDT CPT-G0438 Initial Annual Wellness Exam 13:29:06 CDT CPT-G0009 Administration of Pneumococcal Vaccine 13:26:57 CDT CPT-62262 Prevnar 13 Intramuscular Suspension 13:26:56 CDT 08/19 CPT-37400 Bone Density - XRAY USE ONLY 09:30:16 CDT CPT-Cryo Cryotherapy 08:59:26 HYDROMETALLURGICAL ENGINEER CPT-Cryo Cryotherapy 08:46:02 CDT CPT-13333 Chest 2V Frontal and Lat 14:02:13 HYDROMETALLURGICAL ENGINEER
--- OUTSIDE RECORDS SUMMARY | 2018-03-16 20:34 | XMS REPORT | Clinical Summary ---
Author Author Admin, EDUARDO Organization [facility] Address Unknown Phone Unavailable Allergies, Adverse Reactions, Alerts Allergy Name Reaction Description Start Date Severity Status Provider SULFA Mild No Longer Active Jillina Frazell LABOR EMPLOYMENT ASSOCIATE PENICILLIN Mild No Longer Active Jillina Frazell LABOR EMPLOYMENT ASSOCIATE ZINC Mild No Longer Active Jillina Frazell LABOR EMPLOYMENT ASSOCIATE SULFA Critical No Longer Active Marcelle [...] of skin Elevated blood sugar 790.29 Inactive Marcellekala Key RMA Other abnormal glucose Glucose intolerance [...] 1 po q8hr PRN Dizziness MECLIZINE HCL 63461401599 Active Andre Barreto MD Active MELOXICAM 15 MG ORAL TABLET 1 po qd PRN Pain MELOXICAM 31250116965 Active Andre Barreto MD Active ATORVASTATIN CALCIUM 40 MG ORAL TABLET 1 po qHS ATORVASTATIN CALCIUM 56637453769 No Longer Active Andre Barreto MD Active ATORVASTATIN CALCIUM 20 MG ORAL TABLET 1 po MWF ATORVASTATIN CALCIUM 20736156666 Active Andre Barreto MD Active GUAIFENESIN DM 400-20 MG ORAL TABLET 1 pill by mouth twice daily, if needed for cough DEXTROMETHORPHAN-GUAIFENESIN 05162337042 No Longer Active Andre Barreto MD Active BACTROBAN 2 % EXTERNAL OINTMENT Apply to affected area BID 05/18 MUPIROCIN 00161283090 No Longer Active Moira Price MA Active CLINDAMYCIN HCL 300 MG ORAL CAPSULE 1 po QID x 7 days CLINDAMYCIN HCL 89862627561 No Longer Active David King APRN Active BACTRIM DS 800-160 MG ORAL TABLET 1 tab by mouth twice daily 2017 TRIMETHOPRIM-SULFAMETHOXAZOLE 24455281657 No Longer Active David King APRN Active CEFDINIR 300 MG ORAL CAPSULE by mouth twice a day CEFDINIR 62868769956 No Longer Active David King LABOR EMPLOYMENT ASSOCIATE Active BENZONATATE 200 MG ORAL CAPSULE 1 three times a day as needed for cough 03/27 BENZONATATE 44578431552 No Longer Active Luna Prabhakar Active ZITHROMAX Z-NEVAEH 250 MG ORAL TABLET 2 today and then 1 daily for 4 days 03/27 AZITHROMYCIN 87196015221 No Longer Active Luna Prabhakar Active PREDNISONE 20 MG ORAL TABLET 2 daily for 3 days then 1 daily for 3 days 03/27 PREDNISONE 41468298662 No Longer Active Luna Prabhakar Active CLOPIDOGREL BISULFATE 75 MG ORAL TABLET 1 po qd CLOPIDOGREL BISULFATE 68726324685 Active Andre Barreto MD Active FUROSEMIDE 20 MG ORAL TABLET 1 po qd PRN Edema FUROSEMIDE 03329424638 Active Andre Barreto MD Active PROAIR HFA 108 (90 Base) MCG/ACT INHALATION AEROSOL SOLUTION 2 puffs q4hr PRN Shortness of air/Wheezing ALBUTEROL SULFATE 32823596486 Active Andre Barreto MD Active ATORVASTATIN CALCIUM 80 MG ORAL TABLET 1 po qHS ATORVASTATIN CALCIUM 15518903632 No Longer Active Andre Barreto MD Active AMBIEN 5 MG ORAL TABLET 1 po qHS PRN Insomnia ZOLPIDEM TARTRATE 71916207005 Active Andre Barreto MD Active DETROL 2 MG ORAL TABLET 1 po qd TOLTERODINE TARTRATE 73083930856 Active Andre Barerto MD Active NITROGLYCERIN 0.4 MG SUBLINGUAL TABLET SUBLINGUAL 1 SL q5min PRN Chest pain up to 3 doses NITROGLYCERIN 61585609000 Active Andre Barreto MD Active TOPROL XL 50 MG ORAL TABLET EXTENDED RELEASE 24 HOUR 1 po qd METOPROLOL SUCCINATE 75134451158 Active Andre Barreto MD Active SYMBICORT 160-4.5 MCG/ACT INHALATION AEROSOL 2 puff BID BUDESONIDE-FORMOTEROL FUMARATE 66659291542 Active Cayla VERA Active FLUOXETINE HCL 40 MG ORAL CAPSULE 1 po qd FLUOXETINE HCL 31062770957 Active Andre Barreto MD Active BENICAR HCT 40-25 MG ORAL TABLET Take one by mouth daily OLMESARTAN MEDOXOMIL-HCTZ 19548754592 No Longer Active Andre Barreto MD Active LOSARTAN POTASSIUM-HCTZ 100-25 MG ORAL TABLET 1 po qd LOSARTAN POTASSIUM-HCTZ 11324706562 Active Andre Barreto MD Active BETAMETHASONE DIPROPIONATE 0.05 % EXTERNAL OINTMENT Apply to affected areas BID for up to 2 weeks BETAMETHASONE DIPROPIONATE 26214776529 No Longer Active Andre Barreto MD Active ZOFRAN 4 MG ORAL TABLET 1 po q6hr PRN Nausea ONDANSETRON HCL 57588010975 No Longer Active Andre Barreto MD Active CIPRO 500 MG ORAL TABLET 1 tablet by mouth twice daily CIPROFLOXACIN HCL 55587340278 No Longer Active Andre Barreto MD Active SYMBICORT 160-4.5 MCG/ACT INHALATION AEROSOL 2 puffs inhaled bid BUDESONIDE-FORMOTEROL FUMARATE 92968724817 No Longer Active Andre Barreto MD Active DICLOFENAC SODIUM 75 MG ORAL TABLET DELAYED RELEASE 1 tablet by mouth twice daily DICLOFENAC SODIUM 95435594797 No Longer Active Andre Barreto MD Active PROZAC 40 MG ORAL CAPSULE 1 cap by mouth at bedtime FLUOXETINE HCL 45303985401 No Longer Active Andre Barreto MD Active HYDROCODONE-ACETAMINOPHEN 5-325 MG ORAL TABLET 1 po q 6hr PRN Pain HYDROCODONE-ACETAMINOPHEN 66359968962 No Longer Active Andre Barreto MD Active TRAMADOL HCL 50 MG ORAL TABLET 2 po q 6 hrs prn TRAMADOL HCL 19117391005 Active Andre Barreto MD Active HYDROCODONE-ACETAMINOPHEN 5-325 MG ORAL TABLET 1 po q 6hr PRN Pain HYDROCODONE-ACETAMINOPHEN 5-325 MG ORAL TABLET 654004 HYDROCODONE- ACETAMINOPHEN Inactive PROZAC 40 MG ORAL CAPSULE 1 cap by mouth at bedtime PROZAC 40 MG ORAL CAPSULE 733471 FLUOXETINE HCL Inactive DICLOFENAC SODIUM 75 MG ORAL TABLET DELAYED RELEASE 1 tablet by mouth twice daily DICLOFENAC SODIUM 75 MG ORAL TABLET DELAYED RELEASE 662007 DICLOFENAC SODIUM Inactive SYMBICORT 160-4.5 MCG/ACT INHALATION AEROSOL 2 puffs inhaled bid SYMBICORT 160-4.5 MCG/ACT INHALATION AEROSOL BUDESONIDE-FORMOTEROL FUMARATE Inactive ZOFRAN 4 MG ORAL TABLET 1 po q6hr PRN Nausea ZOFRAN 4 MG ORAL TABLET 192081 ONDANSETRON HCL Inactive BETAMETHASONE DIPROPIONATE 0.05 % EXTERNAL OINTMENT Apply to affected areas BID for up to 2 weeks BETAMETHASONE DIPROPIONATE 0.05 % EXTERNAL OINTMENT 598991 BETAMETHASONE DIPROPIONATE Inactive BENICAR HCT 40-25 MG ORAL TABLET Take one by mouth daily BENICAR HCT 40-25 MG ORAL TABLET 302377 OLMESARTAN MEDOXOMIL-HCTZ Inactive ATORVASTATIN CALCIUM 80 MG ORAL TABLET 1 po qHS ATORVASTATIN CALCIUM 80 MG ORAL TABLET 349589 ATORVASTATIN CALCIUM Inactive PREDNISONE 20 MG ORAL TABLET 2 daily for 3 days then 1 daily for 3 days 03/27 PREDNISONE 20 MG ORAL TABLET 878186 PREDNISONE Inactive ZITHROMAX Z-NEVAEH 250 MG ORAL TABLET 2 today and then 1 daily for 4 days 03/27 ZITHROMAX Z-NEVAEH 250 MG ORAL TABLET 734938 AZITHROMYCIN Inactive BENZONATATE 200 MG ORAL CAPSULE 1 three times a day as needed for cough 03/27 BENZONATATE 200 MG ORAL CAPSULE 078140 BENZONATATE Inactive BACTRIM DS 800-160 MG ORAL TABLET 1 tab by mouth twice daily 2017 BACTRIM DS 800-160 MG ORAL TABLET 320892 TRIMETHOPRIM- SULFAMETHOXAZOLE Inactive BACTROBAN 2 % EXTERNAL OINTMENT Apply to affected area BID 05/18 BACTROBAN 2 % EXTERNAL OINTMENT 852673 MUPIROCIN Inactive GUAIFENESIN DM 400-20 MG ORAL TABLET 1 pill by mouth twice daily, if needed for cough GUAIFENESIN DM 400-20 MG ORAL TABLET 3172781 DEXTROMETHORPHAN-GUAIFENESIN Inactive ATORVASTATIN CALCIUM 40 MG ORAL TABLET 1 po qHS ATORVASTATIN CALCIUM 40 MG ORAL TABLET 294606 ATORVASTATIN CALCIUM Inactive CIPRO 500 MG ORAL TABLET 1 tablet by mouth twice daily CIPRO 500 MG ORAL TABLET 337675 CIPROFLOXACIN HCL Inactive CEFDINIR 300 MG ORAL CAPSULE by mouth twice a day CEFDINIR 300 MG ORAL CAPSULE 464430 CEFDINIR Inactive CLINDAMYCIN HCL 300 MG ORAL CAPSULE 1 po QID x 7 days CLINDAMYCIN HCL 300 MG ORAL CAPSULE 126203 CLINDAMYCIN HCL Inactive Advance Directives Directive Description [...] Panel - Chemistry sodium, serum 139 mmol/L 031-603 8529/05/04 carbon dioxide, venous blood 28.7 mmol/L 21.0-32.0 [...] 6.2 % 4.3-6.0 cholesterol, serum 302 mg/dL 667-018 6821/05/04 triglyceride, serum, fasting 145 mg/dL 30-200 HDL cholesterol, serum 61 mg/dL 32-60 LDL cholesterol, serum 212 mg/dL 0-130 Lab Report: HGBA1C, Lipid Panel, Comp. Metabolic Panel - Chemistry hemoglobin A1C, blood, as % of total hemoglobin 6.2 % 4.3-6.0 cholesterol, serum 229 mg/dL 322-002 6777/07/24 triglyceride, serum, fasting 106 mg/dL 30-200 HDL cholesterol, serum 60 mg/dL 32-60 LDL cholesterol, serum 148 mg/dL 0-130 sodium, serum 139 mmol/L 548-284 6003/07/24 carbon dioxide, venous blood 34.8 mmol/L 21.0-32.0 [...] Panel - Chemistry cholesterol, serum 275 mg/dL 000-543 6791/11/07 triglyceride, serum, fasting 166 mg/dL 30-200 HDL cholesterol, serum 62 mg/dL 32-60 LDL cholesterol, serum 180 mg/dL 0-130 sodium, serum 141 mmol/L 838-071 4697/11/07 carbon dioxide, venous blood 26.3 mmol/L 21.0-32.0 [...] 0-19 Encounters Code Encounter Date Provider Facility CPT-84140 Level 4 Est. Patient 10:07:14 CDT Andre Barreto MD [facility] CPT-54698 Level 3 Est. Patient 14:29:01 CDT Esa Jackson MD [facility] CPT-23125 Level 3 Est. Patient 14:06:16 CDT Andre Barreto MD [facility] CPT-87672 Level 3 Est. Patient 09:16:36 CDT David King [facility] CPT-14794 Level 3 Est. Patient 09:24:01 DEICER INSPECTOR PNEUMATIC David King [facility] CPT-26092 Level 3 Est. Patient 13:01:07 DEICER INSPECTOR PNEUMATIC Solitario Howe MD [facility] CPT-14477 Level 4 Est. Patient 10:26:48 DEICER INSPECTOR PNEUMATIC Andre Barreto MD [facility] CPT-48413 Level 4 Est. Patient 09:45:06 CDT Andre Barreto MD [facility] CPT-34565 Level 4 Est. Patient 11:53:39 DEICER INSPECTOR PNEUMATIC Andre Barreto MD [facility] CPT-41691 Level 4 Est. Patient 14:21:31 CDT Andre Barreto MD [facility] CPT-58444 Level 4 Est. Patient 15:24:17 CDT Andre Barreto MD [facility] CPT-28046 Level 3 Est. Patient 10:36:40 CDT Andre Barreto MD [facility] CPT-66709 Level 4 Est. Patient 11:27:43 CDT Andre Barreto MD [facility] CPT-60466 Level 3 Est. Patient 10:57:31 DEICER INSPECTOR PNEUMATIC Andre Barreto MD [facility] CPT-67373 Level 3 Est. Patient 13:53:13 DEICER INSPECTOR PNEUMATIC Andre Barreto MD [facility] CPT-55846 Level 3 Est. Patient 09:16:12 CDT Andre Barreto MD [facility] CPT-18649 Level 3 Est. Patient 14:50:35 CDT Andre Barreto MD [facility] Procedures Code Procedure Name Date Entry Date Standard Description CPT-87327 Postop F/U Visit 14:31:27 CDT CPT-64244 Postop F/U Visit 14:30:20 CDT CPT-30596 Sono pelvis coley bladder only - XRAY USE ONLY 15:07:39 CDT CPT-35361 First Vx - Ix admin for Medicare patients 13:56:44 DEICER INSPECTOR PNEUMATIC CPT-67128 Zostavax Subcutaneous Solution Reconstituted 00298 UNT/0.65ML 12/22 13:56:44 DEICER INSPECTOR PNEUMATIC CPT-G0009 Administration of Pneumococcal Vaccine 10:12:50 CDT CPT-49206 Pneumovax 23 Injection Injectable 25 MCG/0.5ML 10:12:50 CDT CPT-G0439 Subsequent Annual Wellness Exam 09:49:25 CDT CPT-69602 First Vx - Ix admin for Medicare patients 17:55:11 DEICER INSPECTOR PNEUMATIC CPT-34057 Fluzone High-Dose Intramuscular Suspension 17:55:11 DEICER INSPECTOR PNEUMATIC CPT-57890 Venipuncture Draw Fee 14:11:36 CDT CPT-14491 Lipid - LAB USE ONLY 14:11:36 CDT CPT-67113 CMP - LAB USE ONLY 14:11:36 CDT CPT-G0438 Initial Annual Wellness Exam 13:29:06 CDT CPT-G0009 Administration of Pneumococcal Vaccine 13:26:57 CDT CPT-93685 Prevnar 13 Intramuscular Suspension 13:26:56 CDT 08/19 CPT-99885 Bone Density - XRAY USE ONLY 09:30:16 CDT CPT-Cryo Cryotherapy 08:59:26 DEICER INSPECTOR PNEUMATIC CPT-Cryo Cryotherapy 08:46:02 CDT CPT-63775 Chest 2V Frontal and Lat 14:02:13 DEICER INSPECTOR PNEUMATIC
--- OUTSIDE RECORDS SUMMARY | 2018-03-16 20:35 | XMS REPORT | Clinical Summary ---
Author Author Admin, E Organization [facility] Address Unknown Phone Unavailable Allergies, Adverse [...] Coronary atherosclerosis of unspecified type of vessel, [place] or graft Obstructive sleep apnea 327.23 Active [...] MG TABS 1 po qHS ATORVASTATIN CALCIUM 47787597959 No Longer Active Andre Barreto MD Active AMBIEN 5 MG TABS 1 po qHS PRN Insomnia ZOLPIDEM TARTRATE 23370609340 Active Andre Barreto MD Active DETROL 2 MG ORAL TABS 1 po qd TOLTERODINE TARTRATE 35681984182 Active Andre Barreto MD Active NITROGLYCERIN 0.4 MG SL SUBL 1 SL q5min PRN Chest pain up to 3 doses NITROGLYCERIN 00438727581 Active Andre Barreto MD Active TOPROL XL 50 MG ORAL [id number] 1 po qd METOPROLOL SUCCINATE 26614456350 Active Andre Barreto MD Active PLAVIX 75 MG TABS 1 po qd CLOPIDOGREL BISULFATE 48489448912 Active Andre Barreto MD Active LASIX 20 MG TAB 1 po qd PRN Edema FUROSEMIDE 52695345549 Active Andre Barreto MD Active SYMBICORT 160-4.5 MCG/ACT AERO 2 puff BID BUDESONIDE- FORMOTEROL FUMARATE 28950155904 Active Cayla VERA Active PROAIR HFA 108 (90 BASE) MCG/ACT AERS 2 puffs four times a day as needed 2015 ALBUTEROL SULFATE 25975347604 Active Andre Barreto MD Active FLUOXETINE HCL 40 MG ORAL CAPS 1 po qd FLUOXETINE HCL 02598524532 Active Andre Barreto MD Active BENICAR HCT 40-25 MG TABS Take one by mouth daily OLMESARTAN MEDOXOMIL-HCTZ 97454897127 No Longer Active Andre Barreto MD Active LOSARTAN POTASSIUM-HCTZ 100-25 MG TABS 1 po qd LOSARTAN POTASSIUM-HCTZ 37549814362 Active Andre Barreto MD Active BETAMETHASONE DIPROPIONATE 0.05 % OINT Apply to affected areas BID for up to 2 weeks BETAMETHASONE DIPROPIONATE 31119660143 No Longer Active Andre Barreto MD Active ZOFRAN 4 MG TABS 1 po q6hr PRN Nausea ONDANSETRON HCL 41505671001 No Longer Active Andre Barreto MD Active CIPRO 500 MG TAB 1 tablet by mouth twice daily CIPROFLOXACIN HCL 54545258896 No Longer Active Andre Barreto MD Active SYMBICORT 160-4.5 MCG/ACT AERO 2 puffs inhaled bid BUDESONIDE- FORMOTEROL FUMARATE 23900597460 No Longer Active Andre Barreto MD Active DICLOFENAC SODIUM 75 MG TBEC 1 tablet by mouth twice daily DICLOFENAC SODIUM 59310195026 No Longer Active Andre Barreto MD Active PROZAC 40 MG CAPS 1 cap by mouth at bedtime FLUOXETINE HCL 47571745769 No Longer Active Andre Barreto MD Active HYDROCODONE-ACETAMINOPHEN 5-325 MG TABS 1 po q 6hr PRN Pain HYDROCODONE-ACETAMINOPHEN 02605259229 No Longer Active Andre Barreto MD Active TRAMADOL HCL 50 MG TABS 2 po q 6 hrs prn TRAMADOL HCL 68697488347 Active Andre Barreto MD Active HYDROCODONE-ACETAMINOPHEN 5-325 MG TABS 1 po q 6hr PRN Pain HYDROCODONE-ACETAMINOPHEN 5-325 MG TABS 611491 HYDROCODONE-ACETAMINOPHEN Inactive PROZAC 40 MG CAPS 1 cap by mouth at bedtime PROZAC 40 MG CAPS 559625 FLUOXETINE HCL Inactive DICLOFENAC SODIUM 75 MG TBEC 1 tablet by mouth twice daily DICLOFENAC SODIUM 75 MG TBEC 356937 DICLOFENAC SODIUM Inactive SYMBICORT 160-4.5 MCG/ACT AERO 2 puffs inhaled bid SYMBICORT 160-4.5 MCG/ACT AERO BUDESONIDE-FORMOTEROL FUMARATE Inactive ZOFRAN 4 MG TABS 1 po q6hr PRN Nausea ZOFRAN 4 MG TABS 812352 ONDANSETRON HCL Inactive BETAMETHASONE DIPROPIONATE 0.05 % OINT Apply to affected areas BID for up to 2 weeks BETAMETHASONE DIPROPIONATE 0.05 % OINT 035599 BETAMETHASONE DIPROPIONATE Inactive BENICAR HCT 40-25 MG TABS Take one by mouth daily BENICAR HCT 40-25 MG TABS 006241 OLMESARTAN MEDOXOMIL-HCTZ Inactive ATORVASTATIN CALCIUM 80 MG TABS 1 po qHS ATORVASTATIN CALCIUM 80 MG TABS 684889 ATORVASTATIN CALCIUM Inactive CIPRO 500 MG TAB 1 tablet by mouth twice daily CIPRO 500 MG TAB 485730 CIPROFLOXACIN HCL Inactive Advance Directives Directive Description [...] blood 6.7 10^3/MM^3 10*3/mm3 4.6-10.2 mean corpuscular hemoglobin concentration, RBC 32.5 G/DL % 31.8- 35.4 red blood cell distribution width 13.4 % 11.6-14.8 platelet count 263 10^3/MM^3 10*3/mm3 775-989 0078/07/24 erythrocyte (RBC) count 4.49 10^6/MM^3 10*6/mm3 3.80-5.80 [...] 0.30 mg/dL 0.00-1.00 cholesterol, serum 152 mg/dL 041-694 9578/09/27 triglyceride, serum, fasting 85 mg/dL 30-200 HDL [...] 6.2 % 4.3-6.0 cholesterol, serum 229 mg/dL 906-086 5639/07/24 triglyceride, serum, fasting 106 mg/dL 30-200 HDL cholesterol, serum 60 mg/dL 32-60 LDL cholesterol, serum 148 mg/dL 0-130 sodium, serum 139 mmol/L 009-628 8145/07/24 carbon dioxide, venous blood 34.8 mmol/L 21.0-32.0 [...] 0.00-1.00 Encounters Code Encounter Date Provider Facility CPT-13761 Level 4 Est. Patient 09:45:06 CDT Andre Barreto MD [facility] CPT-82302 Level 4 Est. Patient 11:53:39 QUICK PRINT OPERATOR Andre Barreto MD [facility] CPT-62169 Level 4 Est. Patient 14:21:31 CDT Andre Barreto MD [facility] CPT-36358 Level 4 Est. Patient 15:24:17 CDT Andre Barreto MD [facility] CPT-90206 Level 3 Est. Patient 10:36:40 CDT Andre Barreto MD [facility] CPT-71747 Level 4 Est. Patient 11:27:43 CDT Andre Barreto MD [facility] CPT-86191 Level 3 Est. Patient 10:57:31 QUICK PRINT OPERATOR Andre Barreto MD [facility] CPT-62041 Level 3 Est. Patient 13:53:13 QUICK PRINT OPERATOR Andre Barreto MD [facility] CPT-18363 Level 3 Est. Patient 09:16:12 CDT Andre Barreto MD [facility] CPT-58819 Level 3 Est. Patient 14:50:35 CDT Andre Barreto MD [facility] Procedures Code Procedure Name Date Entry Date Standard Description CPT-G0009 Administration of Pneumococcal Vaccine 10:12:50 CDT CPT-44760 Pneumovax 23 Injection Injectable 25 MCG/0.5ML 10:12:50 CDT CPT-G0439 Subsequent Annual Wellness Exam 09:49:25 CDT CPT-55252 First Vx - Ix admin for Medicare patients 17:55:11 QUICK PRINT OPERATOR CPT-30428 Fluzone High-Dose Intramuscular Suspension 17:55:11 QUICK PRINT OPERATOR CPT-67639 Venipuncture Draw Fee 14:11:36 CDT CPT-81948 Lipid - LAB USE ONLY 14:11:36 CDT CPT-09226 CMP - LAB USE ONLY 14:11:36 CDT CPT-G0438 Initial Annual Wellness Exam 13:29:06 CDT CPT-G0009 Administration of Pneumococcal Vaccine 13:26:57 CDT CPT-41282 Prevnar 13 Intramuscular Suspension 13:26:56 CDT 08/19 CPT-48717 Bone Density - XRAY USE ONLY 09:30:16 CDT CPT-Cryo Cryotherapy 08:59:26 QUICK PRINT OPERATOR CPT-Cryo Cryotherapy 08:46:02 CDT CPT-65676 Chest 2V Frontal and Lat 14:02:13 QUICK PRINT OPERATOR
--- OUTSIDE RECORDS SUMMARY | 2018-03-16 20:35 | XMS REPORT | Clinical Summary ---
Author Author Admin, EDUARDO Organization [employer] Address Unknown Phone Unavailable Allergies, Adverse Reactions, [...] AERO 2 puff BID BUDESONIDE- FORMOTEROL FUMARATE 71375103144 Active Andre Barreto MD Active PROAIR HFA 108 (90 BASE) MCG/ACT AERS 2 puffs four times a day as needed 2015 ALBUTEROL SULFATE 48195118012 Active Andre Barreto MD Active FLUOXETINE HCL 40 MG ORAL CAPS 1 po qd FLUOXETINE HCL 87395078713 Active Andre Barreto MD Active DETROL 2 MG ORAL TABS one tab daily TOLTERODINE TARTRATE 66618372933 Active Andre Barreto MD Active BENICAR HCT 40-25 MG TABS Take one by mouth daily OLMESARTAN MEDOXOMIL-HCTZ 65008490795 No Longer Active Andre Barreto MD Active LOSARTAN POTASSIUM-HCTZ 100-25 MG TABS 1 po qd LOSARTAN POTASSIUM-HCTZ 06312256952 Active Andre Barreto MD Active BETAMETHASONE DIPROPIONATE 0.05 % OINT Apply to affected areas BID for up to 2 weeks BETAMETHASONE DIPROPIONATE 88442465223 No Longer Active Andre Barreto MD Active LIPITOR 40 MG TAB Take 1 tab by mouth daily ATORVASTATIN CALCIUM 06310354533 Active Andre Barreto MD Active ZOFRAN 4 MG TABS 1 po q6hr PRN Nausea ONDANSETRON HCL 56947289271 No Longer Active Andre Barreto MD Active CIPRO 500 MG TAB 1 tablet by mouth twice daily CIPROFLOXACIN HCL 75358671134 No Longer Active Andre Barreto MD Active SYMBICORT 160-4.5 MCG/ACT AERO 2 puffs inhaled bid BUDESONIDE- FORMOTEROL FUMARATE 88264415794 No Longer Active Andre Barreto MD Active LASIX 20 MG TAB 1 tablet by mouth daily PRN FUROSEMIDE 97420028338 Active Andre Barreto MD Active TOPROL XL 25 MG [id number] Take one by mouth daily METOPROLOL SUCCINATE 12348752475 Active Andre Barreto MD Active PLAVIX 75 MG TABS 1 tablet by mouth daily CLOPIDOGREL BISULFATE 34050435939 Active Andre Barreto MD Active NITROSTAT 0.4 MG SL TAB disolve 1 under tongue repeat if needed NITROGLYCERIN 21726312297 Active Andre Barreto MD Active DICLOFENAC SODIUM 75 MG TBEC 1 tablet by mouth twice daily DICLOFENAC SODIUM 71984043707 No Longer Active Andre Barreto MD Active PROZAC 40 MG CAPS 1 cap by mouth at bedtime FLUOXETINE HCL 67559392143 No Longer Active Andre Barreto MD Active HYDROCODONE-ACETAMINOPHEN 5-325 MG TABS 1 po q 6hr PRN Pain HYDROCODONE-ACETAMINOPHEN 28266973870 No Longer Active Andre Barreto MD Active TRAMADOL HCL 50 MG TABS 2 po q 6 hrs prn TRAMADOL HCL 99430427893 Active David King INSIDE SALES ASSISTANT Active AMBIEN 5 MG TABS 1 po a hs prn ZOLPIDEM TARTRATE 22139962831 Active Andre Barreto MD Active HYDROCODONE-ACETAMINOPHEN 5-325 MG TABS 1 po q 6hr PRN Pain HYDROCODONE-ACETAMINOPHEN 5-325 MG TABS 444634 HYDROCODONE-ACETAMINOPHEN Inactive PROZAC 40 MG CAPS 1 cap by mouth at bedtime PROZAC 40 MG CAPS 403187 FLUOXETINE HCL Inactive DICLOFENAC SODIUM 75 MG TBEC 1 tablet by mouth twice daily DICLOFENAC SODIUM 75 MG TBEC 965413 DICLOFENAC SODIUM Inactive SYMBICORT 160-4.5 MCG/ACT AERO 2 puffs inhaled bid SYMBICORT 160-4.5 MCG/ACT AERO BUDESONIDE-FORMOTEROL FUMARATE Inactive ZOFRAN 4 MG TABS 1 po q6hr PRN Nausea ZOFRAN 4 MG TABS 352774 ONDANSETRON HCL Inactive BETAMETHASONE DIPROPIONATE 0.05 % OINT Apply to affected areas BID for up to 2 weeks BETAMETHASONE DIPROPIONATE 0.05 % OINT 675550 BETAMETHASONE DIPROPIONATE Inactive BENICAR HCT 40-25 MG TABS Take one by mouth daily BENICAR HCT 40-25 MG TABS OLMESARTAN MEDOXOMIL-HCTZ Inactive CIPRO 500 MG TAB 1 tablet by mouth twice daily CIPRO 500 MG TAB 603649 CIPROFLOXACIN HCL Inactive Vital Signs Date Name Value Unit Range Description blood pressure, diastolic - 8462-4 71 mm[Hg] BP pat blood pressure, systolic - 8480-6 131 mm[Hg] BP sys pulse rate E&M - 8867-4 56 /min Heart rate temperature E&M 96.5 [degF] Body temperature weight E&M - 3141-9 281 [lb_av] Weight Measured Encounters Code Encounter Date Provider Facility CPT-65669 Level 4 Est. Patient 15:24:17 CDT Andre Barreto MD [facility] CPT-10373 Level 3 Est. Patient 10:36:40 CDT Andre Barreto MD [facility] CPT-83684 Level 4 Est. Patient 11:27:43 CDT Andre Barreto MD [facility] CPT-92839 Level 3 Est. Patient 10:57:31 INSPECTOR AND MENDER Andre Barreto MD [facility] CPT-01258 Level 3 Est. Patient 13:53:13 INSPECTOR AND MENDER Andre Barreto MD [facility] CPT-74204 Level 3 Est. Patient 09:16:12 CDT Andre Barreto MD [facility] CPT-86625 Level 3 Est. Patient 14:50:35 CDT Andre Barreto MD [facility] Procedures Code Procedure Name Date Entry Date Standard Description CPT-Cryo Cryotherapy 08:59:26 INSPECTOR AND MENDER CPT-Cryo Cryotherapy 08:46:02 CDT CPT-18408 Chest 2V Frontal and Lat 14:02:13 INSPECTOR AND MENDER
[2018-03-16] MEDS: POLYETHYLENE GLYCOL 17 GM (MIRALAX) PACK PO SCH (20:36)
--- OUTSIDE RECORDS SUMMARY | 2018-03-16 20:36 | XMS REPORT | Clinical Summary ---
Author Author Admin, V[place] Organization [facility] Address Unknown Phone Unavailable Allergies, Adverse Reactions, Alerts Allergy Name Reaction Description Start Date Severity Status Provider SULFA Mild No Longer Active Jillina Frazell HARBORMASTER PENICILLIN Mild No Longer Active Jillina Frazell HARBORMASTER ZINC Mild No Longer Active Jillina Frazell HARBORMASTER SULFA Critical No Longer Active Marcelle Yesi [...] Coronary atherosclerosis of unspecified type of vessel, [place] or graft Obstructive sleep apnea 327.23 [...] Elevated blood sugar 790.29 Inactive Marcelle Key [facility] Other abnormal glucose Glucose intolerance 271.3 Active [...] Solitario Howe MD Sinusitis ICD-473.9 Inactive Andre Brareto MD Abscess, skin ICD-682.9 Inactive Andre Barreto MD Medication List Medication Instructions Start Date Stop Date Generic Name NDC Status Provider Patient Instruction MECLIZINE HCL 25 MG ORAL TABLET 1 po q8hr PRN Dizziness MECLIZINE HCL 96029672501 No Longer Active Andre Barreto MD Active MELOXICAM 15 MG ORAL TABLET 1 po qd PRN Pain MELOXICAM 32102839924 Active Andre Barreto MD Active ATORVASTATIN CALCIUM 40 MG ORAL TABLET 1 po qHS ATORVASTATIN CALCIUM 32242951615 No Longer Active Andre Barreto MD Active ATORVASTATIN CALCIUM 20 MG ORAL TABLET 1 po MWF ATORVASTATIN CALCIUM 42790836716 Active Andre Barreto MD Active GUAIFENESIN DM 400-20 MG ORAL TABLET 1 pill by mouth twice daily, if needed for cough DEXTROMETHORPHAN-GUAIFENESIN 09722257929 No Longer Active Andre Barreto MD Active BACTROBAN 2 % EXTERNAL OINTMENT Apply to affected area BID 05/18 MUPIROCIN 60324739603 No Longer Active Moira Price MA Active CLINDAMYCIN HCL 300 MG ORAL CAPSULE 1 po QID x 7 days CLINDAMYCIN HCL 87360167922 No Longer Active Jillina Frazell HARBORMASTER Active BACTRIM DS 800-160 MG ORAL TABLET 1 tab by mouth twice daily 2017 TRIMETHOPRIM-SULFAMETHOXAZOLE 12182908834 No Longer Active Jillina Frazell HARBORMASTER Active CEFDINIR 300 MG ORAL CAPSULE by mouth twice a day CEFDINIR 61103857930 No Longer Active Jillina Frazell HARBORMASTER Active BENZONATATE 200 MG ORAL CAPSULE 1 three times a day as needed for cough 03/27 BENZONATATE 60214738376 No Longer Active Luna Prabhakar Active ZITHROMAX Z-NEVAEH 250 MG ORAL TABLET 2 today and then 1 daily for 4 days 03/27 AZITHROMYCIN 80206212640 No Longer Active Luna Prabhakar Active PREDNISONE 20 MG ORAL TABLET 2 daily for 3 days then 1 daily for 3 days 03/27 PREDNISONE 58127642948 No Longer Active Luna Prabhakar Active CLOPIDOGREL BISULFATE 75 MG ORAL TABLET 1 po qd CLOPIDOGREL BISULFATE 17467235155 Active Andre Barreto MD Active FUROSEMIDE 20 MG ORAL TABLET 1 po qd PRN Edema FUROSEMIDE 49480755471 Active Andre Barreto MD Active PROAIR HFA 108 (90 Base) MCG/ACT INHALATION AEROSOL SOLUTION 2 puffs q4hr PRN Shortness of air/Wheezing ALBUTEROL SULFATE 21820673614 Active Andre Barreto MD Active ATORVASTATIN CALCIUM 80 MG ORAL TABLET 1 po qHS ATORVASTATIN CALCIUM 92809672097 No Longer Active Andre Barreto MD Active AMBIEN 5 MG ORAL TABLET 1 po qHS PRN Insomnia ZOLPIDEM TARTRATE 61322167593 Active Andre Barreto MD Active DETROL 2 MG ORAL TABLET 1 po qd TOLTERODINE TARTRATE 97652972509 Active Andre Barreto MD Active NITROGLYCERIN 0.4 MG SUBLINGUAL TABLET SUBLINGUAL 1 SL q5min PRN Chest pain up to 3 doses NITROGLYCERIN 19771662112 Active Andre Barreto MD Active TOPROL XL 50 MG ORAL TABLET EXTENDED RELEASE 24 HOUR 1 po qd METOPROLOL SUCCINATE 70386402720 Active Andre Barreto MD Active SYMBICORT 160-4.5 MCG/ACT INHALATION AEROSOL 2 puff BID BUDESONIDE-FORMOTEROL FUMARATE 11157663188 Active Cayla VERA Active FLUOXETINE HCL 40 MG ORAL CAPSULE 1 po qd FLUOXETINE HCL 74981705260 Active Andre Barreto MD Active BENICAR HCT 40-25 MG ORAL TABLET Take one by mouth daily OLMESARTAN MEDOXOMIL-HCTZ 68228543608 No Longer Active Andre Barreto MD Active LOSARTAN POTASSIUM-HCTZ 100-25 MG ORAL TABLET 1 po qd LOSARTAN POTASSIUM-HCTZ 70416433113 Active Andre Barreto MD Active BETAMETHASONE DIPROPIONATE 0.05 % EXTERNAL OINTMENT Apply to affected areas BID for up to 2 weeks BETAMETHASONE DIPROPIONATE 89693662115 No Longer Active Andre Barreto MD Active ZOFRAN 4 MG ORAL TABLET 1 po q6hr PRN Nausea ONDANSETRON HCL 35870552972 No Longer Active Andre Barreto MD Active CIPRO 500 MG ORAL TABLET 1 tablet by mouth twice daily CIPROFLOXACIN HCL 18787564242 No Longer Active Andre Barreto MD Active SYMBICORT 160-4.5 MCG/ACT INHALATION AEROSOL 2 puffs inhaled bid BUDESONIDE-FORMOTEROL FUMARATE 55451198834 No Longer Active Andre Barreto MD Active DICLOFENAC SODIUM 75 MG ORAL TABLET DELAYED RELEASE 1 tablet by mouth twice daily DICLOFENAC SODIUM 81262320340 No Longer Active Andre Barreto MD Active PROZAC 40 MG ORAL CAPSULE 1 cap by mouth at bedtime FLUOXETINE HCL 14253636628 No Longer Active Andre Barreto MD Active HYDROCODONE-ACETAMINOPHEN 5-325 MG ORAL TABLET 1 po q 6hr PRN Pain HYDROCODONE-ACETAMINOPHEN 66058790060 No Longer Active Andre Barreto MD Active TRAMADOL HCL 50 MG ORAL TABLET 2 po q 6 hrs prn TRAMADOL HCL 73833060852 Active Andre Barreto MD Active HYDROCODONE-ACETAMINOPHEN 5-325 MG ORAL TABLET 1 po q 6hr PRN Pain HYDROCODONE-ACETAMINOPHEN 5-325 MG ORAL TABLET 378205 HYDROCODONE- ACETAMINOPHEN Inactive PROZAC 40 MG ORAL CAPSULE 1 cap by mouth at bedtime PROZAC 40 MG ORAL CAPSULE 477532 FLUOXETINE HCL Inactive DICLOFENAC SODIUM 75 MG ORAL TABLET DELAYED RELEASE 1 tablet by mouth twice daily DICLOFENAC SODIUM 75 MG ORAL TABLET DELAYED RELEASE 857681 DICLOFENAC SODIUM Inactive SYMBICORT 160-4.5 MCG/ACT INHALATION AEROSOL 2 puffs inhaled bid SYMBICORT 160-4.5 MCG/ACT INHALATION AEROSOL BUDESONIDE-FORMOTEROL FUMARATE Inactive ZOFRAN 4 MG ORAL TABLET 1 po q6hr PRN Nausea ZOFRAN 4 MG ORAL TABLET 106571 ONDANSETRON HCL Inactive BETAMETHASONE DIPROPIONATE 0.05 % EXTERNAL OINTMENT Apply to affected areas BID for up to 2 weeks BETAMETHASONE DIPROPIONATE 0.05 % EXTERNAL OINTMENT 202444 BETAMETHASONE DIPROPIONATE Inactive BENICAR HCT 40-25 MG ORAL TABLET Take one by mouth daily BENICAR HCT 40-25 MG ORAL TABLET 494694 OLMESARTAN MEDOXOMIL-HCTZ Inactive ATORVASTATIN CALCIUM 80 MG ORAL TABLET 1 po qHS ATORVASTATIN CALCIUM 80 MG ORAL TABLET 667068 ATORVASTATIN CALCIUM Inactive PREDNISONE 20 MG ORAL TABLET 2 daily for 3 days then 1 daily for 3 days 03/27 PREDNISONE 20 MG ORAL TABLET 016791 PREDNISONE Inactive ZITHROMAX Z-NEVAEH 250 MG ORAL TABLET 2 today and then 1 daily for 4 days 03/27 ZITHROMAX Z-NEVAEH 250 MG ORAL TABLET 081094 AZITHROMYCIN Inactive BENZONATATE 200 MG ORAL CAPSULE 1 three times a day as needed for cough 03/27 BENZONATATE 200 MG ORAL CAPSULE 634476 BENZONATATE Inactive BACTRIM DS 800-160 MG ORAL TABLET 1 tab by mouth twice daily 2017 BACTRIM DS 800-160 MG ORAL TABLET 449560 TRIMETHOPRIM- SULFAMETHOXAZOLE Inactive BACTROBAN 2 % EXTERNAL OINTMENT Apply to affected area BID 05/18 BACTROBAN 2 % EXTERNAL OINTMENT MUPIROCIN Inactive GUAIFENESIN DM 400-20 MG ORAL TABLET 1 pill by mouth twice daily, if needed for cough GUAIFENESIN DM 400-20 MG ORAL TABLET 5540088 DEXTROMETHORPHAN-GUAIFENESIN Inactive ATORVASTATIN CALCIUM 40 MG ORAL TABLET 1 po qHS ATORVASTATIN CALCIUM 40 MG ORAL TABLET 537050 ATORVASTATIN CALCIUM Inactive MECLIZINE HCL 25 MG ORAL TABLET 1 po q8hr PRN Dizziness MECLIZINE HCL 25 MG ORAL TABLET 529020 MECLIZINE HCL Inactive CIPRO 500 MG ORAL TABLET 1 tablet by mouth twice daily CIPRO 500 MG ORAL TABLET 851892 CIPROFLOXACIN HCL Inactive CEFDINIR 300 MG ORAL CAPSULE by mouth twice a day CEFDINIR 300 MG ORAL CAPSULE 705446 CEFDINIR Inactive CLINDAMYCIN HCL 300 MG ORAL CAPSULE 1 po QID x 7 days CLINDAMYCIN HCL 300 MG ORAL CAPSULE 733713 CLINDAMYCIN HCL Inactive Advance Directives Directive Description [...] Panel - Chemistry sodium, serum 139 mmol/L 060-394 3577/05/04 carbon dioxide, venous blood 28.7 mmol/L 21.0-32.0 [...] 6.2 % 4.3-6.0 cholesterol, serum 302 mg/dL 900-472 5299/05/04 triglyceride, serum, fasting 145 mg/dL 30-200 HDL cholesterol, serum 61 mg/dL 32-60 LDL cholesterol, serum 212 mg/dL 0-130 Lab Report: HGBA1C, Lipid Panel, Comp. Metabolic Panel - Chemistry hemoglobin A1C, blood, as % of total hemoglobin 6.2 % 4.3-6.0 cholesterol, serum 229 mg/dL 786-916 2026/07/24 triglyceride, serum, fasting 106 mg/dL 30-200 HDL cholesterol, serum 60 mg/dL 32-60 LDL cholesterol, serum 148 mg/dL 0-130 sodium, serum 139 mmol/L 356-025 7102/07/24 carbon dioxide, venous blood 34.8 mmol/L 21.0-32.0 [...] Panel - Chemistry cholesterol, serum 275 mg/dL 972-611 4747/11/07 triglyceride, serum, fasting 166 mg/dL 30-200 HDL cholesterol, serum 62 mg/dL 32-60 LDL cholesterol, serum 180 mg/dL 0-130 sodium, serum 141 mmol/L 704-976 3953/11/07 carbon dioxide, venous blood 26.3 mmol/L 21.0-32.0 [...] 0-19 Encounters Code Encounter Date Provider Facility CPT-68413 Level 4 Est. Patient 09:44:36 CDT Andre Barreto MD [facility] CPT-38306 Level 4 Est. Patient 10:07:14 CDT Andre Barreto MD [facility] CPT-03349 Level 3 Est. Patient 14:29:01 CDT Esa Jackson MD [facility] CPT-10543 Level 3 Est. Patient 14:06:16 CDT Andre Barreto MD [facility] CPT-90804 Level 3 Est. Patient 09:16:36 CDT David King [facility] CPT-22681 Level 3 Est. Patient 09:24:01 JEWELRY SALES ASSOCIATE David King [facility] CPT-06847 Level 3 Est. Patient 13:01:07 JEWELRY SALES ASSOCIATE Solitario Howe MD [facility] CPT-24187 Level 4 Est. Patient 10:26:48 JEWELRY SALES ASSOCIATE Andre Barreto MD [facility] CPT-33013 Level 4 Est. Patient 09:45:06 CDT Andre Barreto MD [facility] CPT-42925 Level 4 Est. Patient 11:53:39 JEWELRY SALES ASSOCIATE Andre Barreto MD [facility] CPT-54970 Level 4 Est. Patient 14:21:31 CDT Andre Barreto MD [facility] CPT-15653 Level 4 Est. Patient 15:24:17 CDT Andre Barreto MD [facility] CPT-04194 Level 3 Est. Patient 10:36:40 CDT Andre Barreto MD [facility] CPT-79050 Level 4 Est. Patient 11:27:43 CDT Andre Barreto MD [facility] CPT-53918 Level 3 Est. Patient 10:57:31 JEWELRY SALES ASSOCIATE Andre Barreto MD [facility] CPT-16253 Level 3 Est. Patient 13:53:13 JEWELRY SALES ASSOCIATE Andre Barreto MD [facility] CPT-39717 Level 3 Est. Patient 09:16:12 CDT Andre Barreto MD [facility] CPT-68662 Level 3 Est. Patient 14:50:35 CDT Andre Barreto MD [facility] Procedures Code Procedure Name Date Entry Date Standard Description CPT-51926 Postop F/U Visit 14:31:27 CDT CPT-80217 Postop F/U Visit 14:30:20 CDT CPT-16826 Sono pelvis coley bladder only - XRAY USE ONLY 15:07:39 CDT CPT-52722 First Vx - Ix admin for Medicare patients 13:56:44 JEWELRY SALES ASSOCIATE CPT-45439 Zostavax Subcutaneous Solution Reconstituted 01324 UNT/0.65ML 12/22 13:56:44 JEWELRY SALES ASSOCIATE CPT-G0009 Administration of Pneumococcal Vaccine 10:12:50 CDT CPT-04315 Pneumovax 23 Injection Injectable 25 MCG/0.5ML 10:12:50 CDT CPT-G0439 [facility] Annual Wellness Exam 09:49:25 CDT CPT-66407 First Vx - Ix admin for Medicare patients 17:55:11 JEWELRY SALES ASSOCIATE CPT-64149 Fluzone High-Dose Intramuscular Suspension 17:55:11 JEWELRY SALES ASSOCIATE CPT-99872 Venipuncture Draw Fee 14:11:36 CDT CPT-87179 Lipid - LAB USE ONLY 14:11:36 CDT CPT-54610 CMP - LAB USE ONLY 14:11:36 CDT CPT-G0438 Initial Annual Wellness Exam 13:29:06 CDT CPT-G0009 Administration of Pneumococcal Vaccine 13:26:57 CDT CPT-09419 Prevnar 13 Intramuscular Suspension 13:26:56 CDT 08/19 CPT-99443 Bone Density - XRAY USE ONLY 09:30:16 CDT CPT-Cryo Cryotherapy 08:59:26 JEWELRY SALES ASSOCIATE CPT-Cryo Cryotherapy 08:46:02 CDT CPT-87060 Chest 2V Frontal and Lat 14:02:13 JEWELRY SALES ASSOCIATE
--- OUTSIDE RECORDS SUMMARY | 2018-03-16 20:37 | XMS REPORT | Clinical Summary ---
Author Author Admin, EDUARDO Organization [employer] Address Unknown Phone Unavailable Allergies, Adverse Reactions, Alerts Allergy Name Reaction Description Start Date Severity Status Provider SULFA Mild No Longer Active Jillina Frazell LICENSED MARRIAGE AND FAMILY THERAPIST PENICILLIN Mild No Longer Active Jillina Frazell LICENSED MARRIAGE AND FAMILY THERAPIST ZINC Mild No Longer Active Jillina Frazell LICENSED MARRIAGE AND FAMILY THERAPIST SULFA Critical No Longer Active Marcelle Yesi [...] airway pressure rx V46.2 Active Pushpa Hernandez LICENSED MARRIAGE AND FAMILY THERAPIST Other dependence on machines, supplemental oxygen Osteopenia 733.90 Active Pushpa Hernandez APRN Disorder of bone and cartilage, unspecified Obstructive sleep apnea 327.23 Active Andre Barreto MD Obstructive sleep apnea (adult) (pediatric) Acute exacerbation of chronic bronchitis 491.22 Inactive Solitario Howe MD Obstructive chronic bronchitis with acute bronchitis Sinusitis 473.9 Active David King LICENSED MARRIAGE AND FAMILY THERAPIST Unspecified sinusitis (chronic) Abscess, skin 682.9 Active [...] Apply to affected area BID 05/18 MUPIROCIN 32015141500 No Longer Active Moira Price MA Active CLINDAMYCIN HCL 300 MG ORAL CAPSULE 1 po QID x 7 days CLINDAMYCIN HCL 87032428718 No Longer Active Jillina Frazell LICENSED MARRIAGE AND FAMILY THERAPIST Active BACTRIM DS 800-160 MG ORAL TABLET 1 tab by mouth twice daily 2017 TRIMETHOPRIM-SULFAMETHOXAZOLE 91668857777 No Longer Active Jillina Frazell LICENSED MARRIAGE AND FAMILY THERAPIST Active GUAIFENESIN DM 400-20 MG ORAL TABLET 1 pill by mouth twice daily, if needed for cough DEXTROMETHORPHAN-GUAIFENESIN 99219383768 Active Jillina Frazell LICENSED MARRIAGE AND FAMILY THERAPIST Active CEFDINIR 300 MG ORAL CAPSULE by mouth twice a day CEFDINIR 16086054113 No Longer Active Jillina Frazell LICENSED MARRIAGE AND FAMILY THERAPIST Active BENZONATATE 200 MG ORAL CAPSULE 1 three times a day as needed for cough 03/27 BENZONATATE 14366324525 No Longer Active Luna Prabhakar Active ZITHROMAX Z-NEVAEH 250 MG ORAL TABLET 2 today and then 1 daily for 4 days 03/27 AZITHROMYCIN 68170348923 No Longer Active Luna Prabhakar Active PREDNISONE 20 MG ORAL TABLET 2 daily for 3 days then 1 daily for 3 days 03/27 PREDNISONE 38104865892 No Longer Active Luna Prabhakar Active ATORVASTATIN CALCIUM 40 MG ORAL TABLET 1 po qHS ATORVASTATIN CALCIUM 19081036609 Active Marcelle VERA Active CLOPIDOGREL BISULFATE 75 MG ORAL TABLET 1 po qd CLOPIDOGREL BISULFATE 98245509248 Active Andre Barreto MD Active FUROSEMIDE 20 MG ORAL TABLET 1 po qd PRN Edema FUROSEMIDE 04336975839 Active Andre Barreto MD Active PROAIR HFA 108 (90 Base) MCG/ACT INHALATION AEROSOL SOLUTION 2 puffs q4hr PRN Shortness of air/Wheezing ALBUTEROL SULFATE 69988077258 Active Andre Barreto MD Active ATORVASTATIN CALCIUM 80 MG ORAL TABLET 1 po qHS ATORVASTATIN CALCIUM 02894178855 No Longer Active Andre Barreto MD Active AMBIEN 5 MG ORAL TABLET 1 po qHS PRN Insomnia ZOLPIDEM TARTRATE 97108387413 Active Andre Barreto MD Active DETROL 2 MG ORAL TABLET 1 po qd TOLTERODINE TARTRATE 43170168866 Active Andre Barreto MD Active NITROGLYCERIN 0.4 MG SUBLINGUAL TABLET SUBLINGUAL 1 SL q5min PRN Chest pain up to 3 doses NITROGLYCERIN 87066176716 Active Andre Barreto MD Active TOPROL XL 50 MG ORAL TABLET EXTENDED RELEASE 24 HOUR 1 po qd METOPROLOL SUCCINATE 48247381668 Active Andre Barreto MD Active SYMBICORT 160-4.5 MCG/ACT INHALATION AEROSOL 2 puff BID BUDESONIDE-FORMOTEROL FUMARATE 66800062781 Active Cayla VERA Active FLUOXETINE HCL 40 MG ORAL CAPSULE 1 po qd FLUOXETINE HCL 08178189745 Active Andre Barreto MD Active BENICAR HCT 40-25 MG ORAL TABLET Take one by mouth daily OLMESARTAN MEDOXOMIL-HCTZ 48360279496 No Longer Active Andre Barreto MD Active LOSARTAN POTASSIUM-HCTZ 100-25 MG ORAL TABLET 1 po qd LOSARTAN POTASSIUM-HCTZ 83649781274 Active Andre Barreto MD Active BETAMETHASONE DIPROPIONATE 0.05 % EXTERNAL OINTMENT Apply to affected areas BID for up to 2 weeks BETAMETHASONE DIPROPIONATE 56381624477 No Longer Active Andre Barreto MD Active ZOFRAN 4 MG ORAL TABLET 1 po q6hr PRN Nausea ONDANSETRON HCL 15445004922 No Longer Active Andre Barreto MD Active CIPRO 500 MG ORAL TABLET 1 tablet by mouth twice daily CIPROFLOXACIN HCL 01096303029 No Longer Active Andre Barreto MD Active SYMBICORT 160-4.5 MCG/ACT INHALATION AEROSOL 2 puffs inhaled bid BUDESONIDE-FORMOTEROL FUMARATE 94283052922 No Longer Active Andre Barreto MD Active DICLOFENAC SODIUM 75 MG ORAL TABLET DELAYED RELEASE 1 tablet by mouth twice daily DICLOFENAC SODIUM 92830799802 No Longer Active Andre Barreto MD Active PROZAC 40 MG ORAL CAPSULE 1 cap by mouth at bedtime FLUOXETINE HCL 17192140929 No Longer Active Andre Barreto MD Active HYDROCODONE-ACETAMINOPHEN 5-325 MG ORAL TABLET 1 po q 6hr PRN Pain HYDROCODONE-ACETAMINOPHEN 38393282158 No Longer Active Andre Barreto MD Active TRAMADOL HCL 50 MG ORAL TABLET 2 po q 6 hrs prn TRAMADOL HCL 99065122768 Active Andre Barreto MD Active HYDROCODONE-ACETAMINOPHEN 5-325 MG ORAL TABLET 1 po q 6hr PRN Pain HYDROCODONE-ACETAMINOPHEN 5-325 MG ORAL TABLET 622855 HYDROCODONE- ACETAMINOPHEN Inactive PROZAC 40 MG ORAL CAPSULE 1 cap by mouth at bedtime PROZAC 40 MG ORAL CAPSULE 613514 FLUOXETINE HCL Inactive DICLOFENAC SODIUM 75 MG ORAL TABLET DELAYED RELEASE 1 tablet by mouth twice daily DICLOFENAC SODIUM 75 MG ORAL TABLET DELAYED RELEASE 305936 DICLOFENAC SODIUM Inactive SYMBICORT 160-4.5 MCG/ACT INHALATION AEROSOL 2 puffs inhaled bid SYMBICORT 160-4.5 MCG/ACT INHALATION AEROSOL BUDESONIDE-FORMOTEROL FUMARATE Inactive ZOFRAN 4 MG ORAL TABLET 1 po q6hr PRN Nausea ZOFRAN 4 MG ORAL TABLET 665081 ONDANSETRON HCL Inactive BETAMETHASONE DIPROPIONATE 0.05 % EXTERNAL OINTMENT Apply to affected areas BID for up to 2 weeks BETAMETHASONE DIPROPIONATE 0.05 % EXTERNAL OINTMENT 237151 BETAMETHASONE DIPROPIONATE Inactive BENICAR HCT 40-25 MG ORAL TABLET Take one by mouth daily BENICAR HCT 40-25 MG ORAL TABLET 532472 OLMESARTAN MEDOXOMIL-HCTZ Inactive ATORVASTATIN CALCIUM 80 MG ORAL TABLET 1 po qHS ATORVASTATIN CALCIUM 80 MG ORAL TABLET 137761 ATORVASTATIN CALCIUM Inactive PREDNISONE 20 MG ORAL TABLET 2 daily for 3 days then 1 daily for 3 days 03/27 PREDNISONE 20 MG ORAL TABLET 479049 PREDNISONE Inactive ZITHROMAX Z-NEVAEH 250 MG ORAL TABLET 2 today and then 1 daily for 4 days 03/27 ZITHROMAX Z-NEVAEH 250 MG ORAL TABLET 814582 AZITHROMYCIN Inactive BENZONATATE 200 MG ORAL CAPSULE 1 three times a day as needed for cough 03/27 BENZONATATE 200 MG ORAL CAPSULE 053804 BENZONATATE Inactive BACTRIM DS 800-160 MG ORAL TABLET 1 tab by mouth twice daily 2017 BACTRIM DS 800-160 MG ORAL TABLET 443879 TRIMETHOPRIM- SULFAMETHOXAZOLE Inactive BACTROBAN 2 % EXTERNAL OINTMENT Apply to affected area BID 05/18 BACTROBAN 2 % EXTERNAL OINTMENT 727554 MUPIROCIN Inactive CIPRO 500 MG ORAL TABLET 1 tablet by mouth twice daily CIPRO 500 MG ORAL TABLET 855797 CIPROFLOXACIN HCL Inactive CEFDINIR 300 MG ORAL CAPSULE by mouth twice a day CEFDINIR 300 MG ORAL CAPSULE 013995 CEFDINIR Inactive CLINDAMYCIN HCL 300 MG ORAL CAPSULE 1 po QID x 7 days CLINDAMYCIN HCL 300 MG ORAL CAPSULE 821887 CLINDAMYCIN HCL Inactive Advance Directives Directive Description [...] % 11.6-14.8 platelet count 263 10^3/MM^3 10*3/mm3 788-515 8556/07/24 mean corpuscular volume, RBC 92 fL 80-97 [...] 6.2 % 4.3-6.0 cholesterol, serum 229 mg/dL 862-434 2189/07/24 triglyceride, serum, fasting 106 mg/dL 30-200 HDL cholesterol, serum 60 mg/dL 32-60 LDL cholesterol, serum 148 mg/dL 0-130 sodium, serum 139 mmol/L 124-106 0111/07/24 carbon dioxide, venous blood 34.8 mmol/L 21.0-32.0 [...] Panel - Chemistry cholesterol, serum 275 mg/dL 531-955 9835/11/07 triglyceride, serum, fasting 166 mg/dL 30-200 HDL cholesterol, serum 62 mg/dL 32-60 LDL cholesterol, serum 180 mg/dL 0-130 sodium, serum 141 mmol/L 066-347 4381/11/07 carbon dioxide, venous blood 26.3 mmol/L 21.0-32.0 [...] 0-19 Encounters Code Encounter Date Provider Facility CPT-42188 Level 3 Est. Patient 14:29:01 CDT Esa Jackson MD [facility] CPT-00102 Level 3 Est. Patient 14:06:16 CDT Andre Barreto MD [facility] CPT-89703 Level 3 Est. Patient 09:16:36 CDT David King [facility] CPT-32321 Level 3 Est. Patient 09:24:01 BOTTLE MACHINE OPERATOR David King [facility] CPT-56772 Level 3 Est. Patient 13:01:07 BOTTLE MACHINE OPERATOR Solitario Howe MD [facility] CPT-77725 Level 4 Est. Patient 10:26:48 BOTTLE MACHINE OPERATOR Andre Barreto MD [facility] CPT-17174 Level 4 Est. Patient 09:45:06 CDT Andre Barreto MD [facility] CPT-13402 Level 4 Est. Patient 11:53:39 BOTTLE MACHINE OPERATOR Andre Barreto MD [facility] CPT-35243 Level 4 Est. Patient 14:21:31 CDT Andre Barreto MD [facility] CPT-21999 Level 4 Est. Patient 15:24:17 CDT Andre Barreto MD [facility] CPT-09666 Level 3 Est. Patient 10:36:40 CDT Andre Barreto MD [facility] CPT-90553 Level 4 Est. Patient 11:27:43 CDT Andre Barreto MD [facility] CPT-09223 Level 3 Est. Patient 10:57:31 BOTTLE MACHINE OPERATOR Andre Barreto MD [facility] CPT-54394 Level 3 Est. Patient 13:53:13 BOTTLE MACHINE OPERATOR Andre Barreto MD [facility] CPT-95977 Level 3 Est. Patient 09:16:12 CDT Andre Barreto MD [facility] CPT-44750 Level 3 Est. Patient 14:50:35 CDT Andre Barreto MD [facility] Procedures Code Procedure Name Date Entry Date Standard Description CPT-16696 Postop F/U Visit 14:31:27 CDT CPT-88723 Postop F/U Visit 14:30:20 CDT CPT-38398 Sono pelvis coley bladder only - XRAY USE ONLY 15:07:39 CDT CPT-97351 First Vx - Ix admin for Medicare patients 13:56:44 BOTTLE MACHINE OPERATOR CPT-09039 Zostavax Subcutaneous Solution Reconstituted 74364 UNT/0.65ML 12/22 13:56:44 BOTTLE MACHINE OPERATOR CPT-G0009 Administration of Pneumococcal Vaccine 10:12:50 CDT CPT-15143 Pneumovax 23 Injection Injectable 25 MCG/0.5ML 10:12:50 CDT CPT-G0439 Subsequent Annual Wellness Exam 09:49:25 CDT CPT-22908 First Vx - Ix admin for Medicare patients 17:55:11 BOTTLE MACHINE OPERATOR CPT-47316 Fluzone High-Dose Intramuscular Suspension 17:55:11 BOTTLE MACHINE OPERATOR CPT-32423 Venipuncture Draw Fee 14:11:36 CDT CPT-01022 Lipid - LAB USE ONLY 14:11:36 CDT CPT-00258 CMP - LAB USE ONLY 14:11:36 CDT CPT-G0438 Initial Annual Wellness Exam 13:29:06 CDT CPT-G0009 Administration of Pneumococcal Vaccine 13:26:57 CDT CPT-12265 Prevnar 13 Intramuscular Suspension 13:26:56 CDT 08/19 CPT-99019 Bone Density - XRAY USE ONLY 09:30:16 CDT CPT-Cryo Cryotherapy 08:59:26 BOTTLE MACHINE OPERATOR CPT-Cryo Cryotherapy 08:46:02 CDT CPT-76376 Chest 2V Frontal and Lat 14:02:13 BOTTLE MACHINE OPERATOR
--- OUTSIDE RECORDS SUMMARY | 2018-03-16 20:38 | XMS REPORT | Clinical Summary ---
Author Author Admin, EDUARDO Organization [employer] Address Unknown Phone Unavailable Allergies, Adverse Reactions, Alerts Allergy Name Reaction Description Start Date Severity Status Provider SULFA Mild No Longer Active Jillina Frazell VOTING MACHINE REPAIRER PENICILLIN Mild No Longer Active Jillina Frazell VOTING MACHINE REPAIRER ZINC Mild No Longer Active Jillina Frazell VOTING MACHINE REPAIRER SULFA Critical No Longer Active Marcelle [...] Coronary atherosclerosis of unspecified type of vessel, [place] or graft Obstructive sleep apnea 327.23 [...] Barreto MD Skin tag ICD-701.9 Inactive Andre aBrreto MD 2014 Weakness, muscle ICD-728.87 Inactive Andre [...] 1 po q8hr PRN Dizziness MECLIZINE HCL 89478941179 Active Andre Barreto MD Active MELOXICAM 15 MG ORAL TABLET 1 po qd PRN Pain MELOXICAM 22008080061 Active Andre Barreto MD Active ATORVASTATIN CALCIUM 40 MG ORAL TABLET 1 po qHS ATORVASTATIN CALCIUM 14582822674 No Longer Active Andre Barreto MD Active ATORVASTATIN CALCIUM 20 MG ORAL TABLET 1 po MWF ATORVASTATIN CALCIUM 90505985305 Active Andre Barreto MD Active GUAIFENESIN DM 400-20 MG ORAL TABLET 1 pill by mouth twice daily, if needed for cough DEXTROMETHORPHAN-GUAIFENESIN 36022914748 No Longer Active Andre Barreto MD Active BACTROBAN 2 % EXTERNAL OINTMENT Apply to affected area BID 05/18 MUPIROCIN 68004040886 No Longer Active Moira Price MA Active CLINDAMYCIN HCL 300 MG ORAL CAPSULE 1 po QID x 7 days CLINDAMYCIN HCL 27913339074 No Longer Active David King APRN Active BACTRIM DS 800-160 MG ORAL TABLET 1 tab by mouth twice daily 2017 TRIMETHOPRIM-SULFAMETHOXAZOLE 43678033879 No Longer Active David King APRN Active CEFDINIR 300 MG ORAL CAPSULE by mouth twice a day CEFDINIR 39447566851 No Longer Active David King VOTING MACHINE REPAIRER Active BENZONATATE 200 MG ORAL CAPSULE 1 three times a day as needed for cough 03/27 BENZONATATE 28262007530 No Longer Active Luna Prabhakar Active ZITHROMAX Z-NEVAEH 250 MG ORAL TABLET 2 today and then 1 daily for 4 days 03/27 AZITHROMYCIN 82591691083 No Longer Active Luna Prabhakar Active PREDNISONE 20 MG ORAL TABLET 2 daily for 3 days then 1 daily for 3 days 03/27 PREDNISONE 04826145632 No Longer Active Luna Prabhakar Active CLOPIDOGREL BISULFATE 75 MG ORAL TABLET 1 po qd CLOPIDOGREL BISULFATE 86799817690 Active Andre Barreto MD Active FUROSEMIDE 20 MG ORAL TABLET 1 po qd PRN Edema FUROSEMIDE 90182770469 Active Andre Barreto MD Active PROAIR HFA 108 (90 Base) MCG/ACT INHALATION AEROSOL SOLUTION 2 puffs q4hr PRN Shortness of air/Wheezing ALBUTEROL SULFATE 41333627574 Active Andre Barreto MD Active ATORVASTATIN CALCIUM 80 MG ORAL TABLET 1 po qHS ATORVASTATIN CALCIUM 38614195411 No Longer Active Andre Barreto MD Active AMBIEN 5 MG ORAL TABLET 1 po qHS PRN Insomnia ZOLPIDEM TARTRATE 15363275994 Active Andre Barreto MD Active DETROL 2 MG ORAL TABLET 1 po qd TOLTERODINE TARTRATE 52301037751 Active Andre Barreto MD Active NITROGLYCERIN 0.4 MG SUBLINGUAL TABLET SUBLINGUAL 1 SL q5min PRN Chest pain up to 3 doses NITROGLYCERIN 83688013113 Active Andre Barreto MD Active TOPROL XL 50 MG ORAL TABLET EXTENDED RELEASE 24 HOUR 1 po qd METOPROLOL SUCCINATE 48237969751 Active Andre Barreto MD Active SYMBICORT 160-4.5 MCG/ACT INHALATION AEROSOL 2 puff BID BUDESONIDE-FORMOTEROL FUMARATE 35343917793 Active Cayla VERA Active FLUOXETINE HCL 40 MG ORAL CAPSULE 1 po qd FLUOXETINE HCL 03857279772 Active Andre Barreto MD Active BENICAR HCT 40-25 MG ORAL TABLET Take one by mouth daily OLMESARTAN MEDOXOMIL-HCTZ 54462215436 No Longer Active Andre Barreto MD Active LOSARTAN POTASSIUM-HCTZ 100-25 MG ORAL TABLET 1 po qd LOSARTAN POTASSIUM-HCTZ 90292583150 Active Andre Barreto MD Active BETAMETHASONE DIPROPIONATE 0.05 % EXTERNAL OINTMENT Apply to affected areas BID for up to 2 weeks BETAMETHASONE DIPROPIONATE 47698503765 No Longer Active Andre Barreto MD Active ZOFRAN 4 MG ORAL TABLET 1 po q6hr PRN Nausea ONDANSETRON HCL 73607118467 No Longer Active Andre Barreto MD Active CIPRO 500 MG ORAL TABLET 1 tablet by mouth twice daily CIPROFLOXACIN HCL 13928602419 No Longer Active Andre Barreto MD Active SYMBICORT 160-4.5 MCG/ACT INHALATION AEROSOL 2 puffs inhaled bid BUDESONIDE-FORMOTEROL FUMARATE 25175906346 No Longer Active Andre Barreto MD Active DICLOFENAC SODIUM 75 MG ORAL TABLET DELAYED RELEASE 1 tablet by mouth twice daily DICLOFENAC SODIUM 53680111229 No Longer Active Andre Barreto MD Active PROZAC 40 MG ORAL CAPSULE 1 cap by mouth at bedtime FLUOXETINE HCL 08523817518 No Longer Active Andre Barreto MD Active HYDROCODONE-ACETAMINOPHEN 5-325 MG ORAL TABLET 1 po q 6hr PRN Pain HYDROCODONE-ACETAMINOPHEN 81894717276 No Longer Active Andre Barreto MD Active TRAMADOL HCL 50 MG ORAL TABLET 2 po q 6 hrs prn TRAMADOL HCL 62195537791 Active Andre Barreto MD Active HYDROCODONE-ACETAMINOPHEN 5-325 MG ORAL TABLET 1 po q 6hr PRN Pain HYDROCODONE-ACETAMINOPHEN 5-325 MG ORAL TABLET 423615 HYDROCODONE- ACETAMINOPHEN Inactive PROZAC 40 MG ORAL CAPSULE 1 cap by mouth at bedtime PROZAC 40 MG ORAL CAPSULE 997626 FLUOXETINE HCL Inactive DICLOFENAC SODIUM 75 MG ORAL TABLET DELAYED RELEASE 1 tablet by mouth twice daily DICLOFENAC SODIUM 75 MG ORAL TABLET DELAYED RELEASE 755098 DICLOFENAC SODIUM Inactive SYMBICORT 160-4.5 MCG/ACT INHALATION AEROSOL 2 puffs inhaled bid SYMBICORT 160-4.5 MCG/ACT INHALATION AEROSOL BUDESONIDE-FORMOTEROL FUMARATE Inactive ZOFRAN 4 MG ORAL TABLET 1 po q6hr PRN Nausea ZOFRAN 4 MG ORAL TABLET 233352 ONDANSETRON HCL Inactive BETAMETHASONE DIPROPIONATE 0.05 % EXTERNAL OINTMENT Apply to affected areas BID for up to 2 weeks BETAMETHASONE DIPROPIONATE 0.05 % EXTERNAL OINTMENT 569654 BETAMETHASONE DIPROPIONATE Inactive BENICAR HCT 40-25 MG ORAL TABLET Take one by mouth daily BENICAR HCT 40-25 MG ORAL TABLET 791730 OLMESARTAN MEDOXOMIL-HCTZ Inactive ATORVASTATIN CALCIUM 80 MG ORAL TABLET 1 po qHS ATORVASTATIN CALCIUM 80 MG ORAL TABLET 163918 ATORVASTATIN CALCIUM Inactive PREDNISONE 20 MG ORAL TABLET 2 daily for 3 days then 1 daily for 3 days 03/27 PREDNISONE 20 MG ORAL TABLET 897063 PREDNISONE Inactive ZITHROMAX Z-NEVAEH 250 MG ORAL TABLET 2 today and then 1 daily for 4 days 03/27 ZITHROMAX Z-NEVAEH 250 MG ORAL TABLET 316093 AZITHROMYCIN Inactive BENZONATATE 200 MG ORAL CAPSULE 1 three times a day as needed for cough 03/27 BENZONATATE 200 MG ORAL CAPSULE 671911 BENZONATATE Inactive BACTRIM DS 800-160 MG ORAL TABLET 1 tab by mouth twice daily 2017 BACTRIM DS 800-160 MG ORAL TABLET 214254 TRIMETHOPRIM- SULFAMETHOXAZOLE Inactive BACTROBAN 2 % EXTERNAL OINTMENT Apply to affected area BID 05/18 BACTROBAN 2 % EXTERNAL OINTMENT 906793 MUPIROCIN Inactive GUAIFENESIN DM 400-20 MG ORAL TABLET 1 pill by mouth twice daily, if needed for cough GUAIFENESIN DM 400-20 MG ORAL TABLET 7869688 DEXTROMETHORPHAN-GUAIFENESIN Inactive ATORVASTATIN CALCIUM 40 MG ORAL TABLET 1 po qHS ATORVASTATIN CALCIUM 40 MG ORAL TABLET 223544 ATORVASTATIN CALCIUM Inactive CIPRO 500 MG ORAL TABLET 1 tablet by mouth twice daily CIPRO 500 MG ORAL TABLET 012300 CIPROFLOXACIN HCL Inactive CEFDINIR 300 MG ORAL CAPSULE by mouth twice a day CEFDINIR 300 MG ORAL CAPSULE 628463 CEFDINIR Inactive CLINDAMYCIN HCL 300 MG ORAL CAPSULE 1 po QID x 7 days CLINDAMYCIN HCL 300 MG ORAL CAPSULE 216640 CLINDAMYCIN HCL Inactive Advance Directives Directive Description [...] Panel - Chemistry sodium, serum 139 mmol/L 620-313 2150/05/04 carbon dioxide, venous blood 28.7 mmol/L 21.0-32.0 [...] 6.2 % 4.3-6.0 cholesterol, serum 302 mg/dL 817-299 9019/05/04 triglyceride, serum, fasting 145 mg/dL 30-200 HDL cholesterol, serum 61 mg/dL 32-60 LDL cholesterol, serum 212 mg/dL 0-130 Lab Report: HGBA1C, Lipid Panel, Comp. Metabolic Panel - Chemistry hemoglobin A1C, blood, as % of total hemoglobin 6.2 % 4.3-6.0 cholesterol, serum 229 mg/dL 534-399 9880/07/24 triglyceride, serum, fasting 106 mg/dL 30-200 HDL cholesterol, serum 60 mg/dL 32-60 LDL cholesterol, serum 148 mg/dL 0-130 sodium, serum 139 mmol/L 326-543 5022/07/24 carbon dioxide, venous blood 34.8 mmol/L 21.0-32.0 [...] Panel - Chemistry cholesterol, serum 275 mg/dL 806-830 2341/11/07 triglyceride, serum, fasting 166 mg/dL 30-200 HDL cholesterol, serum 62 mg/dL 32-60 LDL cholesterol, serum 180 mg/dL 0-130 sodium, serum 141 mmol/L 397-291 3150/11/07 carbon dioxide, venous blood 26.3 mmol/L 21.0-32.0 [...] 0-19 Encounters Code Encounter Date Provider Facility CPT-04810 Level 4 Est. Patient 10:07:14 CDT Andre Barreto MD [facility] CPT-50429 Level 3 Est. Patient 14:29:01 CDT Esa Jackson MD [facility] CPT-43540 Level 3 Est. Patient 14:06:16 CDT Andre Barreto MD [facility] CPT-64249 Level 3 Est. Patient 09:16:36 CDT David King [facility] CPT-72680 Level 3 Est. Patient 09:24:01 HOT PIPE GAUGER David King [facility] CPT-37398 Level 3 Est. Patient 13:01:07 HOT PIPE GAUGER Solitario Howe MD [facility] CPT-65509 Level 4 Est. Patient 10:26:48 HOT PIPE GAUGER Andre Barreto MD [facility] CPT-61275 Level 4 Est. Patient 09:45:06 CDT Andre Barreto MD [facility] CPT-20018 Level 4 Est. Patient 11:53:39 HOT PIPE GAUGER Andre Barreto MD [facility] CPT-78207 Level 4 Est. Patient 14:21:31 CDT Andre Barreto MD [facility] CPT-07105 Level 4 Est. Patient 15:24:17 CDT Andre Barreto MD [facility] CPT-29774 Level 3 Est. Patient 10:36:40 CDT Andre Barreto MD [facility] CPT-33649 Level 4 Est. Patient 11:27:43 CDT Andre Barreto MD [facility] CPT-48882 Level 3 Est. Patient 10:57:31 HOT PIPE GAUGER Andre Barreto MD [facility] CPT-44712 Level 3 Est. Patient 13:53:13 HOT PIPE GAUGER Andre Barreto MD [facility] CPT-53409 Level 3 Est. Patient 09:16:12 CDT Andre Barreto MD [facility] CPT-47807 Level 3 Est. Patient 14:50:35 CDT Andre Barreto MD [facility] Procedures Code Procedure Name Date Entry Date Standard Description CPT-72957 Postop F/U Visit 14:31:27 CDT CPT-20998 Postop F/U Visit 14:30:20 CDT CPT-95105 Sono pelvis coley bladder only - XRAY USE ONLY 15:07:39 CDT CPT-52678 First Vx - Ix admin for Medicare patients 13:56:44 HOT PIPE GAUGER CPT-65352 Zostavax Subcutaneous Solution Reconstituted 42847 UNT/0.65ML 12/22 13:56:44 HOT PIPE GAUGER CPT-G0009 Administration of Pneumococcal Vaccine 10:12:50 CDT CPT-21855 Pneumovax 23 Injection Injectable 25 MCG/0.5ML 10:12:50 CDT CPT-G0439 Subsequent Annual Wellness Exam 09:49:25 CDT CPT-87605 First Vx - Ix admin for Medicare patients 17:55:11 HOT PIPE GAUGER CPT-89656 Fluzone High-Dose Intramuscular Suspension 17:55:11 HOT PIPE GAUGER CPT-49877 Venipuncture Draw Fee 14:11:36 CDT CPT-96535 Lipid - LAB USE ONLY 14:11:36 CDT CPT-93482 CMP - LAB USE ONLY 14:11:36 CDT CPT-G0438 Initial Annual Wellness Exam 13:29:06 CDT CPT-G0009 Administration of Pneumococcal Vaccine 13:26:57 CDT CPT-68418 Prevnar 13 Intramuscular Suspension 13:26:56 CDT 08/19 CPT-46398 Bone Density - XRAY USE ONLY 09:30:16 CDT CPT-Cryo Cryotherapy 08:59:26 HOT PIPE GAUGER CPT-Cryo Cryotherapy 08:46:02 CDT CPT-13574 Chest 2V Frontal and Lat 14:02:13 HOT PIPE GAUGER
--- OUTSIDE RECORDS SUMMARY | 2018-03-16 20:39 | XMS REPORT | Clinical Summary ---
Author Author Admin, EDUARDO Organization [employer] Address Unknown Phone Unavailable Allergies, Adverse Reactions, [...] Coronary atherosclerosis of unspecified type of vessel, qagan tayagungin or graft Obstructive sleep apnea 327.23 Active Andre Barreto MD Obstructive sleep apnea (adult) (pediatric) Health screening V70.0 Active Andre Barrteo MD Routine general medical examination at a health care facility Fever 780.60 Resolved Andre Barreto MD Fever, unspecified Actinic keratosis 702.0 Resolved Andre Barreto MD Actinic keratosis Seborrheic keratosis 702.19 Resolved Andre Barreto MD Other seborrheic keratosis Skin tag 701.9 Resolved Andre Barrteo MD Unspecified hypertrophic and atrophic conditions of [...] airway pressure rx V46.2 Active 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 Other dependence on machines, supplemental oxygen Osteopenia [...] ORAL TABS 1 po qd CLOPIDOGREL BISULFATE 68416771303 Active Andre Barreto MD Active FUROSEMIDE 20 MG ORAL TABS 1 po qd PRN Edema FUROSEMIDE 09416816908 Active Andre Barreto MD Active PROAIR HFA 108 (90 BASE) MCG/ACT INH AERS 2 puffs q4hr PRN Shortness of air/ Wheezing ALBUTEROL SULFATE 30828278411 Active Andre Barreto MD Active ATORVASTATIN CALCIUM 80 MG TABS 1 po qHS ATORVASTATIN CALCIUM 75514201610 No Longer Active Andre Barreto MD Active AMBIEN 5 MG TABS 1 po qHS PRN Insomnia ZOLPIDEM TARTRATE 80591118427 Active Andre Barreto MD Active DETROL 2 MG ORAL TABS 1 po qd TOLTERODINE TARTRATE 67129746076 Active Andre Barreto MD Active NITROGLYCERIN 0.4 MG SL SUBL 1 SL q5min PRN Chest pain up to 3 doses NITROGLYCERIN 45068340028 Active Andre Barreto MD Active TOPROL XL 50 MG ORAL [id number] 1 po qd METOPROLOL SUCCINATE 31010160070 Active Andre Barreto MD Active SYMBICORT 160-4.5 MCG/ACT AERO 2 puff BID BUDESONIDE- FORMOTEROL FUMARATE 32335594350 Active Cayla Flanagan [facility] Active FLUOXETINE HCL 40 MG ORAL CAPS 1 po qd FLUOXETINE HCL 71753702182 Active Andre Barreto MD Active BENICAR HCT 40-25 MG TABS Take one by mouth daily OLMESARTAN MEDOXOMIL-HCTZ 25873643113 No Longer Active Andre Barreto MD Active LOSARTAN POTASSIUM-HCTZ 100-25 MG TABS 1 po qd LOSARTAN POTASSIUM-HCTZ 68561935592 Active Andre Barreto MD Active BETAMETHASONE DIPROPIONATE 0.05 % OINT Apply to affected areas BID for up to 2 weeks BETAMETHASONE DIPROPIONATE 09626971506 No Longer Active Andre Barreto MD Active ZOFRAN 4 MG TABS 1 po q6hr PRN Nausea ONDANSETRON HCL 27707179067 No Longer Active Andre Barreto MD Active CIPRO 500 MG TAB 1 tablet by mouth twice daily CIPROFLOXACIN HCL 83227172091 No Longer Active Andre Barreto MD Active SYMBICORT 160-4.5 MCG/ACT AERO 2 puffs inhaled bid BUDESONIDE- FORMOTEROL FUMARATE 06898317167 No Longer Active Andre Barreto MD Active DICLOFENAC SODIUM 75 MG TBEC 1 tablet by mouth twice daily DICLOFENAC SODIUM 28704443832 No Longer Active Andre Barreto MD Active PROZAC 40 MG CAPS 1 cap by mouth at bedtime FLUOXETINE HCL 45556454362 No Longer Active Andre Barreto MD Active HYDROCODONE-ACETAMINOPHEN 5-325 MG TABS 1 po q 6hr PRN Pain HYDROCODONE-ACETAMINOPHEN 85714693425 No Longer Active Andre Barreto MD Active TRAMADOL HCL 50 MG TABS 2 po q 6 hrs prn TRAMADOL HCL 27643165256 Active Andre Barreto MD Active HYDROCODONE-ACETAMINOPHEN 5-325 MG TABS 1 po q 6hr PRN Pain HYDROCODONE-ACETAMINOPHEN 5-325 MG TABS 816613 HYDROCODONE-ACETAMINOPHEN Inactive PROZAC 40 MG CAPS 1 cap by mouth at bedtime PROZAC 40 MG CAPS 763458 FLUOXETINE HCL Inactive DICLOFENAC SODIUM 75 MG TBEC 1 tablet by mouth twice daily DICLOFENAC SODIUM 75 MG TBEC 498157 DICLOFENAC SODIUM Inactive SYMBICORT 160-4.5 MCG/ACT AERO 2 puffs inhaled bid SYMBICORT 160-4.5 MCG/ACT AERO BUDESONIDE-FORMOTEROL FUMARATE Inactive ZOFRAN 4 MG TABS 1 po q6hr PRN Nausea ZOFRAN 4 MG TABS 321574 ONDANSETRON HCL Inactive BETAMETHASONE DIPROPIONATE 0.05 % OINT Apply to affected areas BID for up to 2 weeks BETAMETHASONE DIPROPIONATE 0.05 % OINT 699346 BETAMETHASONE DIPROPIONATE Inactive BENICAR HCT 40-25 MG TABS Take one by mouth daily BENICAR HCT 40-25 MG TABS 918892 OLMESARTAN MEDOXOMIL-HCTZ Inactive ATORVASTATIN CALCIUM 80 MG TABS 1 po qHS ATORVASTATIN CALCIUM 80 MG TABS 762101 ATORVASTATIN CALCIUM Inactive CIPRO 500 MG TAB 1 tablet by mouth twice daily CIPRO 500 MG TAB 182763 CIPROFLOXACIN HCL Inactive Advance Directives Directive Description [...] 6.2 % 4.3-6.0 cholesterol, serum 229 mg/dL 235-554 2973/07/24 triglyceride, serum, fasting 106 mg/dL 30-200 HDL cholesterol, serum 60 mg/dL 32-60 LDL cholesterol, serum 148 mg/dL 0-130 sodium, serum 139 mmol/L 371-925 6422/07/24 carbon dioxide, venous blood 34.8 mmol/L 21.0-32.0 [...] 0.00-1.00 Encounters Code Encounter Date Provider Facility CPT-01189 Level 4 Est. Patient 10:26:48 DECAL APPLIER Andre Barreto MD [facility] CPT-30624 Level 4 Est. Patient 09:45:06 CDT Andre Barreto MD [facility] CPT-76271 Level 4 Est. Patient 11:53:39 DECAL APPLIER Andre Barreto MD [facility] CPT-32956 Level 4 Est. Patient 14:21:31 CDT Andre Barreto MD [facility] CPT-46917 Level 4 Est. Patient 15:24:17 CDT Andre Barreto [facility] CPT-79068 Level 3 Est. Patient 10:36:40 CDT Andre Barreto MD [facility] CPT-06926 Level 4 Est. Patient 11:27:43 CDT Andre Barreto MD [facility] CPT-55285 Level 3 Est. Patient 10:57:31 DECAL APPLIER Andre Barreto MD [facility] CPT-18853 Level 3 Est. Patient 13:53:13 DECAL APPLIER Andre Barreto MD [facility] CPT-88350 Level 3 Est. Patient 09:16:12 CDT Andre Barreto MD [facility] CPT-09029 Level 3 Est. Patient 14:50:35 CDT Andre Barreto MD [facility] Procedures Code Procedure Name Date Entry Date Standard Description CPT-34293 First Vx - Ix admin for Medicare patients 13:56:44 DECAL APPLIER CPT-56302 Zostavax Subcutaneous Solution Reconstituted 04614 UNT/0.65ML 12/22 13:56:44 DECAL APPLIER CPT-G0009 Administration of Pneumococcal Vaccine 10:12:50 CDT CPT-64491 Pneumovax 23 Injection Injectable 25 MCG/0.5ML 10:12:50 CDT CPT-G0439 Subsequent Annual Wellness Exam 09:49:25 CDT CPT-17159 First Vx - Ix admin for Medicare patients 17:55:11 DECAL APPLIER CPT-46410 Fluzone High-Dose Intramuscular Suspension 17:55:11 DECAL APPLIER CPT-70849 Venipuncture Draw Fee 14:11:36 CDT CPT-37799 Lipid - LAB USE ONLY 14:11:36 CDT CPT-89923 CMP - LAB USE ONLY 14:11:36 CDT CPT-G0438 Initial Annual Wellness Exam 13:29:06 CDT CPT-G0009 Administration of Pneumococcal Vaccine 13:26:57 CDT CPT-10697 Prevnar 13 Intramuscular Suspension 13:26:56 CDT 08/19 CPT-76512 Bone Density - XRAY USE ONLY 09:30:16 CDT CPT-Cryo Cryotherapy 08:59:26 DECAL APPLIER CPT-Cryo Cryotherapy 08:46:02 CDT CPT-94195 Chest 2V Frontal and Lat 14:02:13 DECAL APPLIER
--- OUTSIDE RECORDS SUMMARY | 2018-03-16 20:40 | XMS REPORT | Clinical Summary ---
Author Author Admin, Vascular Closure Organization [employer] Address Unknown Phone Unavailable Allergies, Adverse Reactions, Alerts Allergy Name Reaction Description Start Date Severity Status Provider SULFA Mild No Longer Active Jillina Frazell SOLAR APPLICATIONS DEVELOPMENT ENGINEER PENICILLIN Mild No Longer Active Jillina Frazell SOLAR APPLICATIONS DEVELOPMENT ENGINEER ZINC Mild No Longer Active Jillina Frazell SOLAR APPLICATIONS DEVELOPMENT ENGINEER SULFA Critical No Longer Active [...] Coronary atherosclerosis of unspecified type of vessel, [place] or graft Obstructive sleep apnea 327.23 Active [...] Apply to affected area BID 05/18 MUPIROCIN 29425041163 No Longer Active Moira Price MA Active CLINDAMYCIN HCL 300 MG ORAL CAPSULE 1 po QID x 7 days CLINDAMYCIN HCL 70815593226 No Longer Active Jillina Frazell SOLAR APPLICATIONS DEVELOPMENT ENGINEER Active BACTRIM DS 800-160 MG ORAL TABLET 1 tab by mouth twice daily 2017 TRIMETHOPRIM-SULFAMETHOXAZOLE 85354197301 No Longer Active Jillina Frazell SOLAR APPLICATIONS DEVELOPMENT ENGINEER Active GUAIFENESIN DM 400-20 MG ORAL TABLET 1 pill by mouth twice daily, if needed for cough DEXTROMETHORPHAN-GUAIFENESIN 88264937004 Active Jillina Frazell SOLAR APPLICATIONS DEVELOPMENT ENGINEER Active CEFDINIR 300 MG ORAL CAPSULE by mouth twice a day CEFDINIR 06053646558 No Longer Active Jillina Frazell SOLAR APPLICATIONS DEVELOPMENT ENGINEER Active BENZONATATE 200 MG ORAL CAPSULE 1 three times a day as needed for cough 03/27 BENZONATATE 46612257166 No Longer Active Luna Prabhakar Active ZITHROMAX Z-NEVAEH 250 MG ORAL TABLET 2 today and then 1 daily for 4 days 03/27 AZITHROMYCIN 38132139150 No Longer Active Luna Prabhakar Active PREDNISONE 20 MG ORAL TABLET 2 daily for 3 days then 1 daily for 3 days 03/27 PREDNISONE 24220090669 No Longer Active Luna Prabhakar Active ATORVASTATIN CALCIUM 40 MG ORAL TABLET 1 po qHS ATORVASTATIN CALCIUM 62111468226 Active Marcelle VERA Active CLOPIDOGREL BISULFATE 75 MG ORAL TABLET 1 po qd CLOPIDOGREL BISULFATE 13114557794 Active Andre Barreto MD Active FUROSEMIDE 20 MG ORAL TABLET 1 po qd PRN Edema FUROSEMIDE 97793577278 Active Andre Barreto MD Active PROAIR HFA 108 (90 Base) MCG/ACT INHALATION AEROSOL SOLUTION 2 puffs q4hr PRN Shortness of air/Wheezing ALBUTEROL SULFATE 23111232366 Active Andre Barreto MD Active ATORVASTATIN CALCIUM 80 MG ORAL TABLET 1 po qHS ATORVASTATIN CALCIUM 35077622367 No Longer Active Andre Barreto MD Active AMBIEN 5 MG ORAL TABLET 1 po qHS PRN Insomnia ZOLPIDEM TARTRATE 00602624577 Active Andre Barreto MD Active DETROL 2 MG ORAL TABLET 1 po qd TOLTERODINE TARTRATE 73403386239 Active Andre Barreto MD Active NITROGLYCERIN 0.4 MG SUBLINGUAL TABLET SUBLINGUAL 1 SL q5min PRN Chest pain up to 3 doses NITROGLYCERIN 45608298209 Active Andre Barreto MD Active TOPROL XL 50 MG ORAL TABLET EXTENDED RELEASE 24 HOUR 1 po qd METOPROLOL SUCCINATE 26576328145 Active Andre Barreto MD Active SYMBICORT 160-4.5 MCG/ACT INHALATION AEROSOL 2 puff BID BUDESONIDE-FORMOTEROL FUMARATE 69836337064 Active Cayla VERA Active FLUOXETINE HCL 40 MG ORAL CAPSULE 1 po qd FLUOXETINE HCL 66879141965 Active Andre Barreto MD Active BENICAR HCT 40-25 MG ORAL TABLET Take one by mouth daily OLMESARTAN MEDOXOMIL-HCTZ 11160765755 No Longer Active Andre Barreto MD Active LOSARTAN POTASSIUM-HCTZ 100-25 MG ORAL TABLET 1 po qd LOSARTAN POTASSIUM-HCTZ 05643327615 Active Andre Barreto MD Active BETAMETHASONE DIPROPIONATE 0.05 % EXTERNAL OINTMENT Apply to affected areas BID for up to 2 weeks BETAMETHASONE DIPROPIONATE 44749462397 No Longer Active Andre Barreto MD Active ZOFRAN 4 MG ORAL TABLET 1 po q6hr PRN Nausea ONDANSETRON HCL 28540075281 No Longer Active Andre Barreto MD Active CIPRO 500 MG ORAL TABLET 1 tablet by mouth twice daily CIPROFLOXACIN HCL 17798441122 No Longer Active Andre Barreto MD Active SYMBICORT 160-4.5 MCG/ACT INHALATION AEROSOL 2 puffs inhaled bid BUDESONIDE-FORMOTEROL FUMARATE 77780105260 No Longer Active Andre Barreto MD Active DICLOFENAC SODIUM 75 MG ORAL TABLET DELAYED RELEASE 1 tablet by mouth twice daily DICLOFENAC SODIUM 01895734075 No Longer Active Andre Barreto MD Active PROZAC 40 MG ORAL CAPSULE 1 cap by mouth at bedtime FLUOXETINE HCL 95898535190 No Longer Active Andre Barreto MD Active HYDROCODONE-ACETAMINOPHEN 5-325 MG ORAL TABLET 1 po q 6hr PRN Pain HYDROCODONE-ACETAMINOPHEN 32517628011 No Longer Active Andre Barreto MD Active TRAMADOL HCL 50 MG ORAL TABLET 2 po q 6 hrs prn TRAMADOL HCL 67940183515 Active Andre Barreto MD Active HYDROCODONE-ACETAMINOPHEN 5-325 MG ORAL TABLET 1 po q 6hr PRN Pain HYDROCODONE-ACETAMINOPHEN 5-325 MG ORAL TABLET 586984 HYDROCODONE- ACETAMINOPHEN Inactive PROZAC 40 MG ORAL CAPSULE 1 cap by mouth at bedtime PROZAC 40 MG ORAL CAPSULE 749006 FLUOXETINE HCL Inactive DICLOFENAC SODIUM 75 MG ORAL TABLET DELAYED RELEASE 1 tablet by mouth twice daily DICLOFENAC SODIUM 75 MG ORAL TABLET DELAYED RELEASE 263610 DICLOFENAC SODIUM Inactive SYMBICORT 160-4.5 MCG/ACT INHALATION AEROSOL 2 puffs inhaled bid SYMBICORT 160-4.5 MCG/ACT INHALATION AEROSOL BUDESONIDE-FORMOTEROL FUMARATE Inactive ZOFRAN 4 MG ORAL TABLET 1 po q6hr PRN Nausea ZOFRAN 4 MG ORAL TABLET 672977 ONDANSETRON HCL Inactive BETAMETHASONE DIPROPIONATE 0.05 % EXTERNAL OINTMENT Apply to affected areas BID for up to 2 weeks BETAMETHASONE DIPROPIONATE 0.05 % EXTERNAL OINTMENT 040537 BETAMETHASONE DIPROPIONATE Inactive BENICAR HCT 40-25 MG ORAL TABLET Take one by mouth daily BENICAR HCT 40-25 MG ORAL TABLET 183114 OLMESARTAN MEDOXOMIL-HCTZ Inactive ATORVASTATIN CALCIUM 80 MG ORAL TABLET 1 po qHS ATORVASTATIN CALCIUM 80 MG ORAL TABLET 271512 ATORVASTATIN CALCIUM Inactive PREDNISONE 20 MG ORAL TABLET 2 daily for 3 days then 1 daily for 3 days 03/27 PREDNISONE 20 MG ORAL TABLET 945904 PREDNISONE Inactive ZITHROMAX Z-NEVAEH 250 MG ORAL TABLET 2 today and then 1 daily for 4 days 03/27 ZITHROMAX Z-NEVAEH 250 MG ORAL TABLET 620645 AZITHROMYCIN Inactive BENZONATATE 200 MG ORAL CAPSULE 1 three times a day as needed for cough 03/27 BENZONATATE 200 MG ORAL CAPSULE 954835 BENZONATATE Inactive BACTRIM DS 800-160 MG ORAL TABLET 1 tab by mouth twice daily 2017 BACTRIM DS 800-160 MG ORAL TABLET 559632 TRIMETHOPRIM- SULFAMETHOXAZOLE Inactive BACTROBAN 2 % EXTERNAL OINTMENT Apply to affected area BID 05/18 BACTROBAN 2 % EXTERNAL OINTMENT 314030 MUPIROCIN Inactive CIPRO 500 MG ORAL TABLET 1 tablet by mouth twice daily CIPRO 500 MG ORAL TABLET 484187 CIPROFLOXACIN HCL Inactive CEFDINIR 300 MG ORAL CAPSULE by mouth twice a day CEFDINIR 300 MG ORAL CAPSULE 636192 CEFDINIR Inactive CLINDAMYCIN HCL 300 MG ORAL CAPSULE 1 po QID x 7 days CLINDAMYCIN HCL 300 MG ORAL CAPSULE 958923 CLINDAMYCIN HCL Inactive Advance Directives Directive Description [...] 6.2 % 4.3-6.0 cholesterol, serum 229 mg/dL 757-272 4541/07/24 triglyceride, serum, fasting 106 mg/dL 30-200 HDL cholesterol, serum 60 mg/dL 32-60 LDL cholesterol, serum 148 mg/dL 0-130 sodium, serum 139 mmol/L 443-862 9773/07/24 carbon dioxide, venous blood 34.8 mmol/L 21.0-32.0 [...] Panel - Chemistry cholesterol, serum 275 mg/dL 545-106 2653/11/07 triglyceride, serum, fasting 166 mg/dL 30-200 HDL cholesterol, serum 62 mg/dL 32-60 LDL cholesterol, serum 180 mg/dL 0-130 sodium, serum 141 mmol/L 299-403 8881/11/07 carbon dioxide, venous blood 26.3 mmol/L 21.0-32.0 [...] 0-19 Encounters Code Encounter Date Provider Facility CPT-58983 Level 3 Est. Patient 14:29:01 CDT Esa Jackson MD [facility] CPT-55115 Level 3 Est. Patient 14:06:16 CDT Andre Barreto MD [facility] CPT-56607 Level 3 Est. Patient 09:16:36 CDT David King [facility]-56823 Level 3 Est. Patient 09:24:01 FISH HATCHERY SUPERVISOR David King [facility] CPT-29135 Level 3 Est. Patient 13:01:07 FISH HATCHERY SUPERVISOR Solitario Howe MD [facility]-92830 Level 4 Est. Patient 10:26:48 FISH HATCHERY SUPERVISOR Andre Barreto MD [facility] CPT-56915 Level 4 Est. Patient 09:45:06 CDT Andre Barreto MD [facility] CPT-18478 Level 4 Est. Patient 11:53:39 FISH HATCHERY SUPERVISOR Andre Barreto MD [facility] CPT-89898 Level 4 Est. Patient 14:21:31 CDT Andre Barreot MD [facility] CPT-82727 Level 4 Est. Patient 15:24:17 CDT Andre Barreto MD [facility] CPT-48762 Level 3 Est. Patient 10:36:40 CDT Andre Barreto MD [facility] CPT-90026 Level 4 Est. Patient 11:27:43 CDT Andre Barreto MD [facility] CPT-02564 Level 3 Est. Patient 10:57:31 FISH HATCHERY SUPERVISOR Andre Barreto MD [facility] CPT-72145 Level 3 Est. Patient 13:53:13 FISH HATCHERY SUPERVISOR Andre Barreto MD [facility] CPT-49169 Level 3 Est. Patient 09:16:12 CDT Andre Barreto MD [facility] CPT-81233 Level 3 Est. Patient 14:50:35 CDT Andre Barreto MD [facility] Procedures Code Procedure Name Date Entry Date Standard Description CPT-58999 Postop F/U Visit 14:31:27 CDT CPT-14544 Postop F/U Visit 14:30:20 CDT CPT-49996 Sono pelvis coley bladder only - XRAY USE ONLY 15:07:39 CDT CPT-15592 First Vx - Ix admin for Medicare patients 13:56:44 FISH HATCHERY SUPERVISOR CPT-77798 Zostavax Subcutaneous Solution Reconstituted 78956 UNT/0.65ML 12/22 13:56:44 FISH HATCHERY SUPERVISOR CPT-G0009 Administration of Pneumococcal Vaccine 10:12:50 CDT CPT-91569 Pneumovax 23 Injection Injectable 25 MCG/0.5ML 10:12:50 CDT CPT-G0439 Subsequent Annual Wellness Exam 09:49:25 CDT CPT-67997 First Vx - Ix admin for Medicare patients 17:55:11 FISH HATCHERY SUPERVISOR CPT-17709 Fluzone High-Dose Intramuscular Suspension 17:55:11 FISH HATCHERY SUPERVISOR CPT-02575 Venipuncture Draw Fee 14:11:36 CDT CPT-97539 Lipid - LAB USE ONLY 14:11:36 CDT CPT-69647 CMP - LAB USE ONLY 14:11:36 CDT CPT-G0438 Initial Annual Wellness Exam 13:29:06 CDT CPT-G0009 Administration of Pneumococcal Vaccine 13:26:57 CDT CPT-10827 Prevnar 13 Intramuscular Suspension 13:26:56 CDT 08/19 CPT-52705 Bone Density - XRAY USE ONLY 09:30:16 CDT CPT-Cryo Cryotherapy 08:59:26 FISH HATCHERY SUPERVISOR CPT-Cryo Cryotherapy 08:46:02 CDT CPT-68333 Chest 2V Frontal and Lat 14:02:13 FISH HATCHERY SUPERVISOR
--- OUTSIDE RECORDS SUMMARY | 2018-03-16 20:41 | XMS REPORT | Clinical Summary ---
Author Author Admin, E Organization [facility] Address Unknown Phone Unavailable Allergies, [...] Coronary atherosclerosis of unspecified type of vessel, [place] or graft Obstructive sleep apnea 327.23 Active [...] (natural) Family history of osteoporosis V17.81 Active Jantete NICHOLS Family history of osteoporosis Unsteady gait [...] MG TABS 1 po qHS ATORVASTATIN CALCIUM 37561283836 Active Andre Barreto MD Active SYMBICORT 160-4.5 MCG/ACT AERO 2 puff BID BUDESONIDE- FORMOTEROL FUMARATE 33078605230 Active Andre Barreto MD Active PROAIR HFA 108 (90 BASE) MCG/ACT AERS 2 puffs four times a day as needed 2015 ALBUTEROL SULFATE 07554168223 Active Andre Barreto MD Active FLUOXETINE HCL 40 MG ORAL CAPS 1 po qd FLUOXETINE HCL 32317887354 Active Andre Barreto MD Active DETROL 2 MG ORAL TABS one tab daily TOLTERODINE TARTRATE 16094792684 Active Andre Barreto MD Active BENICAR HCT 40-25 MG TABS Take one by mouth daily OLMESARTAN MEDOXOMIL-HCTZ 21457759309 No Longer Active Andre Barreto MD Active LOSARTAN POTASSIUM-HCTZ 100-25 MG TABS 1 po qd LOSARTAN POTASSIUM-HCTZ 69956237315 Active Andre Barreto MD Active BETAMETHASONE DIPROPIONATE 0.05 % OINT Apply to affected areas BID for up to 2 weeks BETAMETHASONE DIPROPIONATE 04407245260 No Longer Active Andre Barreto MD Active ZOFRAN 4 MG TABS 1 po q6hr PRN Nausea ONDANSETRON HCL 57215648095 No Longer Active Andre Barreto MD Active CIPRO 500 MG TAB 1 tablet by mouth twice daily CIPROFLOXACIN HCL 57885514291 No Longer Active Andre Barreto MD Active SYMBICORT 160-4.5 MCG/ACT AERO 2 puffs inhaled bid BUDESONIDE- FORMOTEROL FUMARATE 86918896421 No Longer Active Andre Barreto MD Active LASIX 20 MG TAB 1 tablet by mouth daily PRN FUROSEMIDE 72842162066 Active Andre Barreto MD Active TOPROL XL 25 MG [id number]-SQO Take one by mouth daily METOPROLOL SUCCINATE 11210311094 Active Andre Barreto MD Active PLAVIX 75 MG TABS 1 tablet by mouth daily CLOPIDOGREL BISULFATE 19767365853 Active Andre Barreto MD Active NITROSTAT 0.4 MG SL TAB disolve 1 under tongue repeat if needed NITROGLYCERIN 21514264951 Active Andre Barreto MD Active DICLOFENAC SODIUM 75 MG TBEC 1 tablet by mouth twice daily DICLOFENAC SODIUM 23245766457 No Longer Active Andre Barreto MD Active PROZAC 40 MG CAPS 1 cap by mouth at bedtime FLUOXETINE HCL 65007069995 No Longer Active Andre Barreto MD Active HYDROCODONE-ACETAMINOPHEN 5-325 MG TABS 1 po q 6hr PRN Pain HYDROCODONE-ACETAMINOPHEN 57103467643 No Longer Active Andre Barreto MD Active TRAMADOL HCL 50 MG TABS 2 po q 6 hrs prn TRAMADOL HCL 68374280630 Active David King AUTOCAD ELECTRICAL DESIGNER Active AMBIEN 5 MG TABS 1 po a hs prn ZOLPIDEM TARTRATE 05493039459 Active Andre Barreto MD Active HYDROCODONE-ACETAMINOPHEN 5-325 MG TABS 1 po q 6hr PRN Pain HYDROCODONE-ACETAMINOPHEN 5-325 MG TABS 372009 HYDROCODONE-ACETAMINOPHEN Inactive PROZAC 40 MG CAPS 1 cap by mouth at bedtime PROZAC 40 MG CAPS 610714 FLUOXETINE HCL Inactive DICLOFENAC SODIUM 75 MG TBEC 1 tablet by mouth twice daily DICLOFENAC SODIUM 75 MG TBEC 757564 DICLOFENAC SODIUM Inactive SYMBICORT 160-4.5 MCG/ACT AERO 2 puffs inhaled bid SYMBICORT 160-4.5 MCG/ACT AERO BUDESONIDE-FORMOTEROL FUMARATE Inactive ZOFRAN 4 MG TABS 1 po q6hr PRN Nausea ZOFRAN 4 MG TABS 498860 ONDANSETRON HCL Inactive BETAMETHASONE DIPROPIONATE 0.05 % OINT Apply to affected areas BID for up to 2 weeks BETAMETHASONE DIPROPIONATE 0.05 % OINT 052841 BETAMETHASONE DIPROPIONATE Inactive BENICAR HCT 40-25 MG TABS Take one by mouth daily BENICAR HCT 40-25 MG TABS OLMESARTAN MEDOXOMIL-HCTZ Inactive CIPRO 500 MG TAB 1 tablet by mouth twice daily CIPRO 500 MG TAB 635698 CIPROFLOXACIN HCL Inactive Advance Directives Directive Description [...] ... - Chemistry sodium, serum 140 mmol/L 629-007 7773/06/28 carbon dioxide, venous blood 32.4 mmol/L 21.0-32.0 potassium, serum 4.0 mmol/L 3.5-5.2 chloride, serum 101 mmol/L 98-107 blood glucose 108 mg/dL 65-110 urea nitrogen, blood 20 mg/dL 7-18 creatinine, serum 0.98 mg/dL 0.55-1.30 alanine aminotransferase (SGPT), serum 44 U/L 12-78 aspartate aminotransferase (SGOT), serum 27 U/L 15-37 calcium, serum 9.4 mg/dL 8.5-10.1 bilirubin, serum, total 0.30 mg/dL 0.00-1.00 cholesterol, serum 264 mg/dL 119-528 8106/06/28 triglyceride, serum, fasting 146 mg/dL 30-200 HDL [...] 0-19 Encounters Code Encounter Date Provider Facility CPT-98518 Level 4 Est. Patient 15:24:17 CDT Andre Barreto MD [facility] CPT-62935 Level 3 Est. Patient 10:36:40 CDT Andre Barreto MD [facility] CPT-77651 Level 4 Est. Patient 11:27:43 CDT Andre Barreto MD [facility] CPT-40925 Level 3 Est. Patient 10:57:31 MANAGER PATIENT Andre Barreto MD [facility] CPT-66044 Level 3 Est. Patient 13:53:13 MANAGER PATIENT Andre Barreto MD [facility] CPT-38188 Level 3 Est. Patient 09:16:12 CDT Andre Barreto MD [facility] CPT-16180 Level 3 Est. Patient 14:50:35 CDT Andre Barreto MD [facility] Procedures Code Procedure Name Date Entry Date Standard Description CPT-G0438 Initial Annual Wellness Exam 13:29:06 CDT CPT-G0009 Administration of Pneumococcal Vaccine 13:26:57 CDT CPT-38988 Prevnar 13 Intramuscular Suspension 13:26:56 CDT 08/19 CPT-83545 Bone Density - XRAY USE ONLY 09:30:16 CDT CPT-Cryo Cryotherapy 08:59:26 MANAGER PATIENT CPT-Cryo Cryotherapy 08:46:02 CDT CPT-12491 Chest 2V Frontal and Lat 14:02:13 MANAGER PATIENT
--- OUTSIDE RECORDS SUMMARY | 2018-03-16 20:41 | XMS REPORT | Clinical Summary ---
Author Author Admin, EDUARDO Organization [employer] Address Unknown Phone Unavailable Allergies, Adverse Reactions, [...] Coronary atherosclerosis of unspecified type of vessel, [place] or graft Obstructive sleep apnea 327.23 Active [...] MG TABS 1 po qHS ATORVASTATIN CALCIUM 24508462180 Active Andre Barreto MD Active SYMBICORT 160-4.5 MCG/ACT AERO 2 puff BID BUDESONIDE- FORMOTEROL FUMARATE 57696158685 Active Andre Barreto MD Active PROAIR HFA 108 (90 BASE) MCG/ACT AERS 2 puffs four times a day as needed 2015 ALBUTEROL SULFATE 91057085433 Active Andre Barreto MD Active FLUOXETINE HCL 40 MG ORAL CAPS 1 po qd FLUOXETINE HCL 48783139604 Active Andre Barreto MD Active DETROL 2 MG ORAL TABS one tab daily TOLTERODINE TARTRATE 41104872306 Active Andre Barreto MD Active BENICAR HCT 40-25 MG TABS Take one by mouth daily OLMESARTAN MEDOXOMIL-HCTZ 72707913222 No Longer Active Andre Barreto MD Active LOSARTAN POTASSIUM-HCTZ 100-25 MG TABS 1 po qd LOSARTAN POTASSIUM-HCTZ 73853930527 Active Andre Barreto MD Active BETAMETHASONE DIPROPIONATE 0.05 % OINT Apply to affected areas BID for up to 2 weeks BETAMETHASONE DIPROPIONATE 97290076047 No Longer Active Andre Barreto MD Active ZOFRAN 4 MG TABS 1 po q6hr PRN Nausea ONDANSETRON HCL 02000948902 No Longer Active Andre Barreto MD Active CIPRO 500 MG TAB 1 tablet by mouth twice daily CIPROFLOXACIN HCL 39805514252 No Longer Active Andre Barreto MD Active SYMBICORT 160-4.5 MCG/ACT AERO 2 puffs inhaled bid BUDESONIDE- FORMOTEROL FUMARATE 21507188303 No Longer Active Andre Barreto MD Active LASIX 20 MG TAB 1 tablet by mouth daily PRN FUROSEMIDE 30603251704 Active Andre Barreto MD Active TOPROL XL 25 MG [id number] Take one by mouth daily METOPROLOL SUCCINATE 86139730879 Active Andre Barreto MD Active PLAVIX 75 MG TABS 1 tablet by mouth daily CLOPIDOGREL BISULFATE 37488183038 Active Andre Barreto MD Active NITROSTAT 0.4 MG SL TAB disolve 1 under tongue repeat if needed NITROGLYCERIN 40797354378 Active Andre Barreto MD Active DICLOFENAC SODIUM 75 MG TBEC 1 tablet by mouth twice daily DICLOFENAC SODIUM 51763743617 No Longer Active Andre Barreto MD Active PROZAC 40 MG CAPS 1 cap by mouth at bedtime FLUOXETINE HCL 52627872627 No Longer Active Andre Barreto MD Active HYDROCODONE-ACETAMINOPHEN 5-325 MG TABS 1 po q 6hr PRN Pain HYDROCODONE-ACETAMINOPHEN 25561144638 No Longer Active Andre Barreto MD Active TRAMADOL HCL 50 MG TABS 2 po q 6 hrs prn TRAMADOL HCL 25271937198 Active David King [facility] Active AMBIEN 5 MG TABS 1 po a hs prn ZOLPIDEM TARTRATE 22822091985 Active Andre Barreto MD Active HYDROCODONE-ACETAMINOPHEN 5-325 MG TABS 1 po q 6hr PRN Pain HYDROCODONE-ACETAMINOPHEN 5-325 MG TABS 087730 HYDROCODONE-ACETAMINOPHEN Inactive PROZAC 40 MG CAPS 1 cap by mouth at bedtime PROZAC 40 MG CAPS 897873 FLUOXETINE HCL Inactive DICLOFENAC SODIUM 75 MG TBEC 1 tablet by mouth twice daily DICLOFENAC SODIUM 75 MG TBEC 214784 DICLOFENAC SODIUM Inactive SYMBICORT 160-4.5 MCG/ACT AERO 2 puffs inhaled bid SYMBICORT 160-4.5 MCG/ACT AERO BUDESONIDE-FORMOTEROL FUMARATE Inactive ZOFRAN 4 MG TABS 1 po q6hr PRN Nausea ZOFRAN 4 MG TABS 010408 ONDANSETRON HCL Inactive BETAMETHASONE DIPROPIONATE 0.05 % OINT Apply to affected areas BID for up to 2 weeks BETAMETHASONE DIPROPIONATE 0.05 % OINT 797858 BETAMETHASONE DIPROPIONATE Inactive BENICAR HCT 40-25 MG TABS Take one by mouth daily BENICAR HCT 40-25 MG TABS OLMESARTAN MEDOXOMIL-HCTZ Inactive CIPRO 500 MG TAB 1 tablet by mouth twice daily CIPRO 500 MG TAB 464887 CIPROFLOXACIN HCL Inactive Advance Directives Directive Description [...] ... - Chemistry sodium, serum 140 mmol/L 399-196 8045/06/28 carbon dioxide, venous blood 32.4 mmol/L 21.0-32.0 potassium, serum 4.0 mmol/L 3.5-5.2 chloride, serum 101 mmol/L 98-107 blood glucose 108 mg/dL 65-110 urea nitrogen, blood 20 mg/dL 7-18 creatinine, serum 0.98 mg/dL 0.55-1.30 alanine aminotransferase (SGPT), serum 44 U/L 12-78 aspartate aminotransferase (SGOT), serum 27 U/L 15-37 calcium, serum 9.4 mg/dL 8.5-10.1 bilirubin, serum, total 0.30 mg/dL 0.00-1.00 cholesterol, serum 264 mg/dL 879-869 3399/06/28 triglyceride, serum, fasting 146 mg/dL 30-200 HDL [...] 0-19 Encounters Code Encounter Date Provider Facility CPT-42746 Level 4 Est. Patient 15:24:17 CDT Andre Barreto MD [facility] CPT-37900 Level 3 Est. Patient 10:36:40 CDT Andre Barreto MD [facility] CPT-22210 Level 4 Est. Patient 11:27:43 CDT Andre Barreto MD [facility] CPT-02640 Level 3 Est. Patient 10:57:31 EDGE SANDER Andre Barreto MD [facility] CPT-45726 Level 3 Est. Patient 13:53:13 EDGE SANDER Andre Barreto MD [facility] CPT-38363 Level 3 Est. Patient 09:16:12 CDT Andre Barreto MD [facility] CPT-77671 Level 3 Est. Patient 14:50:35 CDT Andre Barreto MD [facility] Procedures Code Procedure Name Date Entry Date Standard Description CPT-G0438 Initial Annual Wellness Exam 13:29:06 CDT CPT-G0009 Administration of Pneumococcal Vaccine 13:26:57 CDT CPT-68244 Prevnar 13 Intramuscular Suspension 13:26:56 CDT 08/19 CPT-99917 Bone Density - XRAY USE ONLY 09:30:16 CDT CPT-Cryo Cryotherapy 08:59:26 EDGE SANDER CPT-Cryo Cryotherapy 08:46:02 CDT CPT-18652 Chest 2V Frontal and Lat 14:02:13 EDGE SANDER
--- OUTSIDE RECORDS SUMMARY | 2018-03-16 20:42 | XMS REPORT | Clinical Summary ---
Author Author Admin, EDUARDO Organization [employer] Address Unknown Phone Unavailable Allergies, Adverse Reactions, Alerts Allergy Name Reaction Description Start Date Severity Status Provider SULFA Mild No Longer Active Jillina Frazell DRAFTER ELECTROMECHANICAL PENICILLIN Mild No Longer Active Jillina Frazell DRAFTER ELECTROMECHANICAL ZINC Mild No Longer Active Jillina Frazell DRAFTER ELECTROMECHANICAL SULFA Critical No Longer Active Marcelle Yesi [...] Coronary atherosclerosis of unspecified type of vessel, [place] or graft Obstructive sleep apnea 327.23 Active [...] MD 2014 Weakness, muscle ICD-728.87 Inactive Andre Barrteo MD Dyshidrotic eczema, hands ICD-705.81 Inactive Andre [...] 1 po q8hr PRN Dizziness MECLIZINE HCL 47312385722 Active Andre Barreto MD Active MELOXICAM 15 MG ORAL TABLET 1 po qd PRN Pain MELOXICAM 65381164960 Active Andre Barreto MD Active ATORVASTATIN CALCIUM 40 MG ORAL TABLET 1 po qHS ATORVASTATIN CALCIUM 56580649728 No Longer Active Andre Barreto MD Active ATORVASTATIN CALCIUM 20 MG ORAL TABLET 1 po MWF ATORVASTATIN CALCIUM 82872646589 Active Andre Barreto MD Active GUAIFENESIN DM 400-20 MG ORAL TABLET 1 pill by mouth twice daily, if needed for cough DEXTROMETHORPHAN-GUAIFENESIN 98424532375 No Longer Active Andre Barreto MD Active BACTROBAN 2 % EXTERNAL OINTMENT Apply to affected area BID 05/18 MUPIROCIN 87576501895 No Longer Active Moira Price MA Active CLINDAMYCIN HCL 300 MG ORAL CAPSULE 1 po QID x 7 days CLINDAMYCIN HCL 56077593693 No Longer Active David King APRN Active BACTRIM DS 800-160 MG ORAL TABLET 1 tab by mouth twice daily 2017 TRIMETHOPRIM-SULFAMETHOXAZOLE 00560921731 No Longer Active David King APRN Active CEFDINIR 300 MG ORAL CAPSULE by mouth twice a day CEFDINIR 65659173040 No Longer Active David King DRAFTER ELECTROMECHANICAL Active BENZONATATE 200 MG ORAL CAPSULE 1 three times a day as needed for cough 03/27 BENZONATATE 26067363936 No Longer Active Luna Prabhakar Active ZITHROMAX Z-NEVAEH 250 MG ORAL TABLET 2 today and then 1 daily for 4 days 03/27 AZITHROMYCIN 33146272351 No Longer Active Luna Prabhakar Active PREDNISONE 20 MG ORAL TABLET 2 daily for 3 days then 1 daily for 3 days 03/27 PREDNISONE 83103800415 No Longer Active Luna Prabhakar Active CLOPIDOGREL BISULFATE 75 MG ORAL TABLET 1 po qd CLOPIDOGREL BISULFATE 19420106731 Active Andre Barreto MD Active FUROSEMIDE 20 MG ORAL TABLET 1 po qd PRN Edema FUROSEMIDE 56759187195 Active Andre Barreto MD Active PROAIR HFA 108 (90 Base) MCG/ACT INHALATION AEROSOL SOLUTION 2 puffs q4hr PRN Shortness of air/Wheezing ALBUTEROL SULFATE 33458421099 Active Andre Barreto MD Active ATORVASTATIN CALCIUM 80 MG ORAL TABLET 1 po qHS ATORVASTATIN CALCIUM 27462022526 No Longer Active Andre Barreto MD Active AMBIEN 5 MG ORAL TABLET 1 po qHS PRN Insomnia ZOLPIDEM TARTRATE 90705485352 Active Andre Barreto MD Active DETROL 2 MG ORAL TABLET 1 po qd TOLTERODINE TARTRATE 71341265424 Active Andre Barreto MD Active NITROGLYCERIN 0.4 MG SUBLINGUAL TABLET SUBLINGUAL 1 SL q5min PRN Chest pain up to 3 doses NITROGLYCERIN 27315106557 Active Andre Barreto MD Active TOPROL XL 50 MG ORAL TABLET EXTENDED RELEASE 24 HOUR 1 po qd METOPROLOL SUCCINATE 13960054367 Active Andre Barreto MD Active SYMBICORT 160-4.5 MCG/ACT INHALATION AEROSOL 2 puff BID BUDESONIDE-FORMOTEROL FUMARATE 69310416288 Active Cayla VERA Active FLUOXETINE HCL 40 MG ORAL CAPSULE 1 po qd FLUOXETINE HCL 92432157022 Active Andre Barreto MD Active BENICAR HCT 40-25 MG ORAL TABLET Take one by mouth daily OLMESARTAN MEDOXOMIL-HCTZ 71241805528 No Longer Active Andre Barreto MD Active LOSARTAN POTASSIUM-HCTZ 100-25 MG ORAL TABLET 1 po qd LOSARTAN POTASSIUM-HCTZ 80978220259 Active Andre Barreto MD Active BETAMETHASONE DIPROPIONATE 0.05 % EXTERNAL OINTMENT Apply to affected areas BID for up to 2 weeks BETAMETHASONE DIPROPIONATE 60622869254 No Longer Active Andre Barreto MD Active ZOFRAN 4 MG ORAL TABLET 1 po q6hr PRN Nausea ONDANSETRON HCL 14568248464 No Longer Active Andre Barreto MD Active CIPRO 500 MG ORAL TABLET 1 tablet by mouth twice daily CIPROFLOXACIN HCL 79074476570 No Longer Active Andre Barreto MD Active SYMBICORT 160-4.5 MCG/ACT INHALATION AEROSOL 2 puffs inhaled bid BUDESONIDE-FORMOTEROL FUMARATE 17803208371 No Longer Active Andre Barreto MD Active DICLOFENAC SODIUM 75 MG ORAL TABLET DELAYED RELEASE 1 tablet by mouth twice daily DICLOFENAC SODIUM 23000157843 No Longer Active Andre Barreto MD Active PROZAC 40 MG ORAL CAPSULE 1 cap by mouth at bedtime FLUOXETINE HCL 13544845985 No Longer Active Andre Barreto MD Active HYDROCODONE-ACETAMINOPHEN 5-325 MG ORAL TABLET 1 po q 6hr PRN Pain HYDROCODONE-ACETAMINOPHEN 41221820257 No Longer Active Andre Barreto MD Active TRAMADOL HCL 50 MG ORAL TABLET 2 po q 6 hrs prn TRAMADOL HCL 79809771163 Active Andre Barreto MD Active HYDROCODONE-ACETAMINOPHEN 5-325 MG ORAL TABLET 1 po q 6hr PRN Pain HYDROCODONE-ACETAMINOPHEN 5-325 MG ORAL TABLET 538555 HYDROCODONE- ACETAMINOPHEN Inactive PROZAC 40 MG ORAL CAPSULE 1 cap by mouth at bedtime PROZAC 40 MG ORAL CAPSULE 941581 FLUOXETINE HCL Inactive DICLOFENAC SODIUM 75 MG ORAL TABLET DELAYED RELEASE 1 tablet by mouth twice daily DICLOFENAC SODIUM 75 MG ORAL TABLET DELAYED RELEASE 076329 DICLOFENAC SODIUM Inactive SYMBICORT 160-4.5 MCG/ACT INHALATION AEROSOL 2 puffs inhaled bid SYMBICORT 160-4.5 MCG/ACT INHALATION AEROSOL BUDESONIDE-FORMOTEROL FUMARATE Inactive ZOFRAN 4 MG ORAL TABLET 1 po q6hr PRN Nausea ZOFRAN 4 MG ORAL TABLET 229233 ONDANSETRON HCL Inactive BETAMETHASONE DIPROPIONATE 0.05 % EXTERNAL OINTMENT Apply to affected areas BID for up to 2 weeks BETAMETHASONE DIPROPIONATE 0.05 % EXTERNAL OINTMENT 584719 BETAMETHASONE DIPROPIONATE Inactive BENICAR HCT 40-25 MG ORAL TABLET Take one by mouth daily BENICAR HCT 40-25 MG ORAL TABLET 786207 OLMESARTAN MEDOXOMIL-HCTZ Inactive ATORVASTATIN CALCIUM 80 MG ORAL TABLET 1 po qHS ATORVASTATIN CALCIUM 80 MG ORAL TABLET 764204 ATORVASTATIN CALCIUM Inactive PREDNISONE 20 MG ORAL TABLET 2 daily for 3 days then 1 daily for 3 days 03/27 PREDNISONE 20 MG ORAL TABLET 968023 PREDNISONE Inactive ZITHROMAX Z-NEVAEH 250 MG ORAL TABLET 2 today and then 1 daily for 4 days 03/27 ZITHROMAX Z-NEVAEH 250 MG ORAL TABLET 298303 AZITHROMYCIN Inactive BENZONATATE 200 MG ORAL CAPSULE 1 three times a day as needed for cough 03/27 BENZONATATE 200 MG ORAL CAPSULE 584544 BENZONATATE Inactive BACTRIM DS 800-160 MG ORAL TABLET 1 tab by mouth twice daily 2017 BACTRIM DS 800-160 MG ORAL TABLET 953583 TRIMETHOPRIM- SULFAMETHOXAZOLE Inactive BACTROBAN 2 % EXTERNAL OINTMENT Apply to affected area BID 05/18 BACTROBAN 2 % EXTERNAL OINTMENT 775555 MUPIROCIN Inactive GUAIFENESIN DM 400-20 MG ORAL TABLET 1 pill by mouth twice daily, if needed for cough GUAIFENESIN DM 400-20 MG ORAL TABLET 0039557 DEXTROMETHORPHAN-GUAIFENESIN Inactive ATORVASTATIN CALCIUM 40 MG ORAL TABLET 1 po qHS ATORVASTATIN CALCIUM 40 MG ORAL TABLET 981607 ATORVASTATIN CALCIUM Inactive CIPRO 500 MG ORAL TABLET 1 tablet by mouth twice daily CIPRO 500 MG ORAL TABLET 258524 CIPROFLOXACIN HCL Inactive CEFDINIR 300 MG ORAL CAPSULE by mouth twice a day CEFDINIR 300 MG ORAL CAPSULE 240502 CEFDINIR Inactive CLINDAMYCIN HCL 300 MG ORAL CAPSULE 1 po QID x 7 days CLINDAMYCIN HCL 300 MG ORAL CAPSULE 442678 CLINDAMYCIN HCL Inactive Advance Directives Directive Description [...] Panel - Chemistry sodium, serum 139 mmol/L 632-317 6968/05/04 carbon dioxide, venous blood 28.7 mmol/L 21.0-32.0 [...] 6.2 % 4.3-6.0 cholesterol, serum 302 mg/dL 396-576 5810/05/04 triglyceride, serum, fasting 145 mg/dL 30-200 HDL cholesterol, serum 61 mg/dL 32-60 LDL cholesterol, serum 212 mg/dL 0-130 Lab Report: HGBA1C, Lipid Panel, Comp. Metabolic Panel - Chemistry hemoglobin A1C, blood, as % of total hemoglobin 6.2 % 4.3-6.0 cholesterol, serum 229 mg/dL 280-589 1412/07/24 triglyceride, serum, fasting 106 mg/dL 30-200 HDL cholesterol, serum 60 mg/dL 32-60 LDL cholesterol, serum 148 mg/dL 0-130 sodium, serum 139 mmol/L 520-478 8975/07/24 carbon dioxide, venous blood 34.8 mmol/L 21.0-32.0 [...] Panel - Chemistry cholesterol, serum 275 mg/dL 693-738 1316/11/07 triglyceride, serum, fasting 166 mg/dL 30-200 HDL cholesterol, serum 62 mg/dL 32-60 LDL cholesterol, serum 180 mg/dL 0-130 sodium, serum 141 mmol/L 112-261 5892/11/07 carbon dioxide, venous blood 26.3 mmol/L 21.0-32.0 [...] 0-19 Encounters Code Encounter Date Provider Facility CPT-17082 Level 4 Est. Patient 10:07:14 CDT Andre Barreto MD [facility] CPT-59345 Level 3 Est. Patient 14:29:01 CDT Esa Jackson MD [facility] CPT-73950 Level 3 Est. Patient 14:06:16 CDT Andre Barreto MD [facility] CPT-90745 Level 3 Est. Patient 09:16:36 CDT David King [facility] CPT-19963 Level 3 Est. Patient 09:24:01 CNC SPECIALIST David King [facility] CPT-50224 Level 3 Est. Patient 13:01:07 CNC SPECIALIST Solitario Howe MD [facility] CPT-16696 Level 4 Est. Patient 10:26:48 CNC SPECIALIST Andre Barreto MD [facility] CPT-03547 Level 4 Est. Patient 09:45:06 CDT Andre Barreto MD [facility] CPT-67666 Level 4 Est. Patient 11:53:39 CNC SPECIALIST Andre Barreto MD [facility] CPT-76929 Level 4 Est. Patient 14:21:31 CDT Andre Barreto MD [facility] CPT-83312 Level 4 Est. Patient 15:24:17 CDT Andre Barreto MD [facility] CPT-99479 Level 3 Est. Patient 10:36:40 CDT Andre Barreto MD [facility] CPT-12562 Level 4 Est. Patient 11:27:43 CDT Andre Barreto MD [facility] CPT-42940 Level 3 Est. Patient 10:57:31 CNC SPECIALIST Andre Barreto MD [facility] CPT-75359 Level 3 Est. Patient 13:53:13 CNC SPECIALIST Andre Barreto MD [facility] CPT-62763 Level 3 Est. Patient 09:16:12 CDT Andre Barreto MD [facility] CPT-58881 Level 3 Est. Patient 14:50:35 CDT Andre Barreto MD [facility] Procedures Code Procedure Name Date Entry Date Standard Description CPT-36134 Postop F/U Visit 14:31:27 CDT CPT-82883 Postop F/U Visit 14:30:20 CDT CPT-78096 Sono pelvis coley bladder only - XRAY USE ONLY 15:07:39 CDT CPT-54262 First Vx - Ix admin for Medicare patients 13:56:44 CNC SPECIALIST CPT-59344 Zostavax Subcutaneous Solution Reconstituted 59125 UNT/0.65ML 12/22 13:56:44 CNC SPECIALIST CPT-G0009 Administration of Pneumococcal Vaccine 10:12:50 CDT CPT-32058 Pneumovax 23 Injection Injectable 25 MCG/0.5ML 10:12:50 CDT CPT-G0439 Subsequent Annual Wellness Exam 09:49:25 CDT CPT-39372 First Vx - Ix admin for Medicare patients 17:55:11 CNC SPECIALIST CPT-36125 Fluzone High-Dose Intramuscular Suspension 17:55:11 CNC SPECIALIST CPT-11755 Venipuncture Draw Fee 14:11:36 CDT CPT-39049 Lipid - LAB USE ONLY 14:11:36 CDT CPT-03362 CMP - LAB USE ONLY 14:11:36 CDT CPT-G0438 Initial Annual Wellness Exam 13:29:06 CDT CPT-G0009 Administration of Pneumococcal Vaccine 13:26:57 CDT CPT-08614 Prevnar 13 Intramuscular Suspension 13:26:56 CDT 08/19 CPT-70145 Bone Density - XRAY USE ONLY 09:30:16 CDT CPT-Cryo Cryotherapy 08:59:26 CNC SPECIALIST CPT-Cryo Cryotherapy 08:46:02 CDT CPT-83088 Chest 2V Frontal and Lat 14:02:13 CNC SPECIALIST
--- OUTSIDE RECORDS SUMMARY | 2018-03-16 20:43 | XMS REPORT | Clinical Summary ---
Author Author Admin, EDUARDO Organization [employer] Address Unknown Phone Unavailable Allergies, Adverse Reactions, Alerts Allergy Name Reaction Description Start Date Severity Status Provider SULFA Mild No Longer Active Jillina Frazell MARKETING OPERATIONS INTERN PENICILLIN Mild No Longer Active Jillina Frazell MARKETING OPERATIONS INTERN ZINC Mild No Longer Active Jillina Frazell MARKETING OPERATIONS INTERN SULFA Critical No Longer Active Marcelle Yesi [...] atherosclerosis of unspecified type of vessel, lac courte oreilles or graft Obstructive sleep apnea 327.23 Active [...] 1 po q8hr PRN Dizziness MECLIZINE HCL 50966879216 No Longer Active Andre Barreto MD Active MELOXICAM 15 MG ORAL TABLET 1 po qd PRN Pain MELOXICAM 98513474451 Active Andre Barreto MD Active ATORVASTATIN CALCIUM 40 MG ORAL TABLET 1 po qHS ATORVASTATIN CALCIUM 71002907276 No Longer Active Andre Barreto MD Active ATORVASTATIN CALCIUM 20 MG ORAL TABLET 1 po MWF ATORVASTATIN CALCIUM 00987449972 Active Andre Barreto MD Active GUAIFENESIN DM 400-20 MG ORAL TABLET 1 pill by mouth twice daily, if needed for cough DEXTROMETHORPHAN-GUAIFENESIN 64327591087 No Longer Active Andre Barreto MD Active BACTROBAN 2 % EXTERNAL OINTMENT Apply to affected area BID 05/18 MUPIROCIN 10321126433 No Longer Active Moira Price MA Active CLINDAMYCIN HCL 300 MG ORAL CAPSULE 1 po QID x 7 days CLINDAMYCIN HCL 78353957101 No Longer Active Jillina Frazell MARKETING OPERATIONS INTERN Active BACTRIM DS 800-160 MG ORAL TABLET 1 tab by mouth twice daily 2017 TRIMETHOPRIM-SULFAMETHOXAZOLE 31219905905 No Longer Active Jillina Frazell MARKETING OPERATIONS INTERN Active CEFDINIR 300 MG ORAL CAPSULE by mouth twice a day CEFDINIR 59532930123 No Longer Active Jillina Frazell MARKETING OPERATIONS INTERN Active BENZONATATE 200 MG ORAL CAPSULE 1 three times a day as needed for cough 03/27 BENZONATATE 52340542345 No Longer Active Luna Prabhakar Active ZITHROMAX Z-NEVAEH 250 MG ORAL TABLET 2 today and then 1 daily for 4 days 03/27 AZITHROMYCIN 12430577034 No Longer Active Luna Prabhakar Active PREDNISONE 20 MG ORAL TABLET 2 daily for 3 days then 1 daily for 3 days 03/27 PREDNISONE 72589170815 No Longer Active Luna Prabhakar Active CLOPIDOGREL BISULFATE 75 MG ORAL TABLET 1 po qd CLOPIDOGREL BISULFATE 17190655661 Active Andre Barreto MD Active FUROSEMIDE 20 MG ORAL TABLET 1 po qd PRN Edema FUROSEMIDE 11948921571 Active Andre Barreto MD Active PROAIR HFA 108 (90 Base) MCG/ACT INHALATION AEROSOL SOLUTION 2 puffs q4hr PRN Shortness of air/Wheezing ALBUTEROL SULFATE 83045297165 Active Andre Barreto MD Active ATORVASTATIN CALCIUM 80 MG ORAL TABLET 1 po qHS ATORVASTATIN CALCIUM 10103752402 No Longer Active Andre Barreto MD Active AMBIEN 5 MG ORAL TABLET 1 po qHS PRN Insomnia ZOLPIDEM TARTRATE 61052657022 Active Andre Barreto MD Active DETROL 2 MG ORAL TABLET 1 po qd TOLTERODINE TARTRATE 13141394175 Active Andre Barreto MD Active NITROGLYCERIN 0.4 MG SUBLINGUAL TABLET SUBLINGUAL 1 SL q5min PRN Chest pain up to 3 doses NITROGLYCERIN 95678656239 Active Andre Barreto MD Active TOPROL XL 50 MG ORAL TABLET EXTENDED RELEASE 24 HOUR 1 po qd METOPROLOL SUCCINATE 90096596068 Active Andre Barreto MD Active SYMBICORT 160-4.5 MCG/ACT INHALATION AEROSOL 2 puff BID BUDESONIDE-FORMOTEROL FUMARATE 29125800002 Active Cayla VERA Active FLUOXETINE HCL 40 MG ORAL CAPSULE 1 po qd FLUOXETINE HCL 25746245272 Active Andre Barreto MD Active BENICAR HCT 40-25 MG ORAL TABLET Take one by mouth daily OLMESARTAN MEDOXOMIL-HCTZ 99209765708 No Longer Active Andre Barreto MD Active LOSARTAN POTASSIUM-HCTZ 100-25 MG ORAL TABLET 1 po qd LOSARTAN POTASSIUM-HCTZ 37619744874 Active Andre Barreto MD Active BETAMETHASONE DIPROPIONATE 0.05 % EXTERNAL OINTMENT Apply to affected areas BID for up to 2 weeks BETAMETHASONE DIPROPIONATE 04959759507 No Longer Active Andre Barreto MD Active ZOFRAN 4 MG ORAL TABLET 1 po q6hr PRN Nausea ONDANSETRON HCL 73391819200 No Longer Active Andre Barreto MD Active CIPRO 500 MG ORAL TABLET 1 tablet by mouth twice daily CIPROFLOXACIN HCL 48428524514 No Longer Active Andre Barreto MD Active SYMBICORT 160-4.5 MCG/ACT INHALATION AEROSOL 2 puffs inhaled bid BUDESONIDE-FORMOTEROL FUMARATE 18948693272 No Longer Active Andre Barreto MD Active DICLOFENAC SODIUM 75 MG ORAL TABLET DELAYED RELEASE 1 tablet by mouth twice daily DICLOFENAC SODIUM 29867660866 No Longer Active Andre Barreto MD Active PROZAC 40 MG ORAL CAPSULE 1 cap by mouth at bedtime FLUOXETINE HCL 26862115155 No Longer Active Andre Barreto MD Active HYDROCODONE-ACETAMINOPHEN 5-325 MG ORAL TABLET 1 po q 6hr PRN Pain HYDROCODONE-ACETAMINOPHEN 14049265435 No Longer Active Andre Barreto MD Active TRAMADOL HCL 50 MG ORAL TABLET 2 po q 6 hrs prn TRAMADOL HCL 69972323052 Active Andre Barreto MD Active HYDROCODONE-ACETAMINOPHEN 5-325 MG ORAL TABLET 1 po q 6hr PRN Pain HYDROCODONE-ACETAMINOPHEN 5-325 MG ORAL TABLET 225257 HYDROCODONE- ACETAMINOPHEN Inactive PROZAC 40 MG ORAL CAPSULE 1 cap by mouth at bedtime PROZAC 40 MG ORAL CAPSULE 503517 FLUOXETINE HCL Inactive DICLOFENAC SODIUM 75 MG ORAL TABLET DELAYED RELEASE 1 tablet by mouth twice daily DICLOFENAC SODIUM 75 MG ORAL TABLET DELAYED RELEASE 703680 DICLOFENAC SODIUM Inactive SYMBICORT 160-4.5 MCG/ACT INHALATION AEROSOL 2 puffs inhaled bid SYMBICORT 160-4.5 MCG/ACT INHALATION AEROSOL BUDESONIDE-FORMOTEROL FUMARATE Inactive ZOFRAN 4 MG ORAL TABLET 1 po q6hr PRN Nausea ZOFRAN 4 MG ORAL TABLET 546109 ONDANSETRON HCL Inactive BETAMETHASONE DIPROPIONATE 0.05 % EXTERNAL OINTMENT Apply to affected areas BID for up to 2 weeks BETAMETHASONE DIPROPIONATE 0.05 % EXTERNAL OINTMENT 940218 BETAMETHASONE DIPROPIONATE Inactive BENICAR HCT 40-25 MG ORAL TABLET Take one by mouth daily BENICAR HCT 40-25 MG ORAL TABLET 702347 OLMESARTAN MEDOXOMIL-HCTZ Inactive ATORVASTATIN CALCIUM 80 MG ORAL TABLET 1 po qHS ATORVASTATIN CALCIUM 80 MG ORAL TABLET 036405 ATORVASTATIN CALCIUM Inactive PREDNISONE 20 MG ORAL TABLET 2 daily for 3 days then 1 daily for 3 days 03/27 PREDNISONE 20 MG ORAL TABLET 240485 PREDNISONE Inactive ZITHROMAX Z-NEVAEH 250 MG ORAL TABLET 2 today and then 1 daily for 4 days 03/27 ZITHROMAX Z-NEVAEH 250 MG ORAL TABLET 452877 AZITHROMYCIN Inactive BENZONATATE 200 MG ORAL CAPSULE 1 three times a day as needed for cough 03/27 BENZONATATE 200 MG ORAL CAPSULE 364448 BENZONATATE Inactive BACTRIM DS 800-160 MG ORAL TABLET 1 tab by mouth twice daily 2017 BACTRIM DS 800-160 MG ORAL TABLET 183226 TRIMETHOPRIM- SULFAMETHOXAZOLE Inactive BACTROBAN 2 % EXTERNAL OINTMENT Apply to affected area BID 05/18 BACTROBAN 2 % EXTERNAL OINTMENT MUPIROCIN Inactive GUAIFENESIN DM 400-20 MG ORAL TABLET 1 pill by mouth twice daily, if needed for cough GUAIFENESIN DM 400-20 MG ORAL TABLET 8312083 DEXTROMETHORPHAN-GUAIFENESIN Inactive ATORVASTATIN CALCIUM 40 MG ORAL TABLET 1 po qHS ATORVASTATIN CALCIUM 40 MG ORAL TABLET 278353 ATORVASTATIN CALCIUM Inactive MECLIZINE HCL 25 MG ORAL TABLET 1 po q8hr PRN Dizziness MECLIZINE HCL 25 MG ORAL TABLET 533990 MECLIZINE HCL Inactive CIPRO 500 MG ORAL TABLET 1 tablet by mouth twice daily CIPRO 500 MG ORAL TABLET 870169 CIPROFLOXACIN HCL Inactive CEFDINIR 300 MG ORAL CAPSULE by mouth twice a day CEFDINIR 300 MG ORAL CAPSULE 318140 CEFDINIR Inactive CLINDAMYCIN HCL 300 MG ORAL CAPSULE 1 po QID x 7 days CLINDAMYCIN HCL 300 MG ORAL CAPSULE 291961 CLINDAMYCIN HCL Inactive Advance Directives Directive Description [...] % 11.6-14.8 platelet count 263 10^3/MM^3 10*3/mm3 265-260 4375/07/03 leukocyte count, blood 8.1 10^3/MM^3 10*3/mm3 4.6-10.2 [...] Panel - Chemistry sodium, serum 139 mmol/L 824-969 4129/05/04 carbon dioxide, venous blood 28.7 mmol/L 21.0-32.0 [...] 6.2 % 4.3-6.0 cholesterol, serum 302 mg/dL 596-391 5703/05/04 triglyceride, serum, fasting 145 mg/dL 30-200 HDL cholesterol, serum 61 mg/dL 32-60 LDL cholesterol, serum 212 mg/dL 0-130 Lab Report: HGBA1C, Lipid Panel, Comp. Metabolic Panel - Chemistry hemoglobin A1C, blood, as % of total hemoglobin 6.2 % 4.3-6.0 cholesterol, serum 229 mg/dL 464-036 1967/07/24 triglyceride, serum, fasting 106 mg/dL 30-200 HDL cholesterol, serum 60 mg/dL 32-60 LDL cholesterol, serum 148 mg/dL 0-130 sodium, serum 139 mmol/L 438-110 8391/07/24 carbon dioxide, venous blood 34.8 mmol/L 21.0-32.0 [...] Panel - Chemistry cholesterol, serum 275 mg/dL 037-815 9415/11/07 triglyceride, serum, fasting 166 mg/dL 30-200 HDL cholesterol, serum 62 mg/dL 32-60 LDL cholesterol, serum 180 mg/dL 0-130 sodium, serum 141 mmol/L 578-078 5730/11/07 carbon dioxide, venous blood 26.3 mmol/L 21.0-32.0 [...] 0-19 Encounters Code Encounter Date Provider Facility CPT-24219 Level 4 Est. Patient 09:44:36 CDT Andre Barreto MD [facility] CPT-00520 Level 4 Est. Patient 10:07:14 CDT Andre Barreto MD [facility] CPT-62938 Level 3 Est. Patient 14:29:01 CDT Esa Jackson MD [facility] CPT-93006 Level 3 Est. Patient 14:06:16 CDT Andre Barreto MD [facility] CPT-31358 Level 3 Est. Patient 09:16:36 CDT David King [facility] CPT-70599 Level 3 Est. Patient 09:24:01 LEAD APPLICATION ARCHITECT David King [facility] CPT-05898 Level 3 Est. Patient 13:01:07 LEAD APPLICATION ARCHITECT Solitario Howe MD [facility] CPT-19310 Level 4 Est. Patient 10:26:48 LEAD APPLICATION ARCHITECT Andre Barreto MD [facility] CPT-68995 Level 4 Est. Patient 09:45:06 CDT Andre Barreto MD [facility] CPT-20277 Level 4 Est. Patient 11:53:39 LEAD APPLICATION ARCHITECT Andre Barreto MD [facility] CPT-15731 Level 4 Est. Patient 14:21:31 CDT Andre Barreto MD [facility] CPT-37074 Level 4 Est. Patient 15:24:17 CDT Andre Barreto MD [facility] CPT-63284 Level 3 Est. Patient 10:36:40 CDT Andre Barreto MD [facility] CPT-96030 Level 4 Est. Patient 11:27:43 CDT Andre Barreto MD [facility] CPT-61826 Level 3 Est. Patient 10:57:31 LEAD APPLICATION ARCHITECT Andre Barreto MD [facility] CPT-11688 Level 3 Est. Patient 13:53:13 LEAD APPLICATION ARCHITECT Andre Barreto MD [facility] CPT-87127 Level 3 Est. Patient 09:16:12 CDT Andre Barreto MD [facility] CPT-35325 Level 3 Est. Patient 14:50:35 CDT Andre Barreto MD [facility] Procedures Code Procedure Name Date Entry Date Standard Description CPT-45345 Bone Density - XRAY USE ONLY 11:55:39 CDT CPT-94431 Postop F/U Visit 14:31:27 CDT CPT-58100 Postop F/U Visit 14:30:20 CDT CPT-19344 Sono pelvis coley bladder only - XRAY USE ONLY 15:07:39 CDT CPT-51121 First Vx - Ix admin for Medicare patients 13:56:44 LEAD APPLICATION ARCHITECT CPT-52029 Zostavax Subcutaneous Solution Reconstituted 03401 UNT/0.65ML 12/22 13:56:44 LEAD APPLICATION ARCHITECT CPT-G0009 Administration of Pneumococcal Vaccine 10:12:50 CDT CPT-91941 Pneumovax 23 Injection Injectable 25 MCG/0.5ML 10:12:50 CDT CPT-G0439 Subsequent Annual Wellness Exam 09:49:25 CDT CPT-39297 First Vx - Ix admin for Medicare patients 17:55:11 LEAD APPLICATION ARCHITECT CPT-54444 Fluzone High-Dose Intramuscular Suspension 17:55:11 LEAD APPLICATION ARCHITECT CPT-16824 Venipuncture Draw Fee 14:11:36 CDT CPT-24579 Lipid - LAB USE ONLY 14:11:36 CDT CPT-02056 CMP - LAB USE ONLY 14:11:36 CDT CPT-G0438 Initial Annual Wellness Exam 13:29:06 CDT CPT-G0009 Administration of Pneumococcal Vaccine 13:26:57 CDT CPT-63747 Prevnar 13 Intramuscular Suspension 13:26:56 CDT 08/19 CPT-56893 Bone Density - XRAY USE ONLY 09:30:16 CDT CPT-Cryo Cryotherapy 08:59:26 LEAD APPLICATION ARCHITECT CPT-Cryo Cryotherapy 08:46:02 CDT CPT-93002 Chest 2V Frontal and Lat 14:02:13 LEAD APPLICATION ARCHITECT
--- OUTSIDE RECORDS SUMMARY | 2018-03-16 20:44 | XMS REPORT | Clinical Summary ---
Author Author Admin, EDUARDO Organization [employer] Address Unknown Phone Unavailable Allergies, Adverse Reactions, Alerts Allergy Name Reaction Description Start Date Severity Status Provider SULFA Mild No Longer Active Jillina Frazell CLIENT APPLICATION SUPPORT ENGINEER PENICILLIN Mild No Longer Active Jillina Frazell CLIENT APPLICATION SUPPORT ENGINEER ZINC Mild No Longer Active Jillina Frazell CLIENT APPLICATION SUPPORT ENGINEER SULFA Critical No Longer Active Marcelle [...] Urge incontinence Bronchitis, chronic 491.9 Active Andre Barerto MD Unspecified chronic bronchitis Postmenopausal status V49.81 [...] 1 po q8hr PRN Dizziness MECLIZINE HCL 09328843319 No Longer Active Andre Barreto MD Active MELOXICAM 15 MG ORAL TABLET 1 po qd PRN Pain MELOXICAM 11467073307 Active Andre Barreto MD Active ATORVASTATIN CALCIUM 40 MG ORAL TABLET 1 po qHS ATORVASTATIN CALCIUM 04399480188 No Longer Active Andre Barreto MD Active ATORVASTATIN CALCIUM 20 MG ORAL TABLET 1 po MWF ATORVASTATIN CALCIUM 68316547964 Active Andre Barreto MD Active GUAIFENESIN DM 400-20 MG ORAL TABLET 1 pill by mouth twice daily, if needed for cough DEXTROMETHORPHAN-GUAIFENESIN 49313516061 No Longer Active Andre Barreto MD Active BACTROBAN 2 % EXTERNAL OINTMENT Apply to affected area BID 05/18 MUPIROCIN 26563715100 No Longer Active Moira Price MA Active CLINDAMYCIN HCL 300 MG ORAL CAPSULE 1 po QID x 7 days CLINDAMYCIN HCL 38750021748 No Longer Active Jillina Frazell CLIENT APPLICATION SUPPORT ENGINEER Active BACTRIM DS 800-160 MG ORAL TABLET 1 tab by mouth twice daily 2017 TRIMETHOPRIM-SULFAMETHOXAZOLE 26062015471 No Longer Active Jillina Frazell CLIENT APPLICATION SUPPORT ENGINEER Active CEFDINIR 300 MG ORAL CAPSULE by mouth twice a day CEFDINIR 88655331610 No Longer Active Jillina Frazell CLIENT APPLICATION SUPPORT ENGINEER Active BENZONATATE 200 MG ORAL CAPSULE 1 three times a day as needed for cough 03/27 BENZONATATE 48935902282 No Longer Active Luna Prabhakar Active ZITHROMAX Z-NEVAEH 250 MG ORAL TABLET 2 today and then 1 daily for 4 days 03/27 AZITHROMYCIN 18785737407 No Longer Active Luna Prabhakar Active PREDNISONE 20 MG ORAL TABLET 2 daily for 3 days then 1 daily for 3 days 03/27 PREDNISONE 65804623573 No Longer Active Luna Prabhakar Active CLOPIDOGREL BISULFATE 75 MG ORAL TABLET 1 po qd CLOPIDOGREL BISULFATE 35558049760 Active Andre Barreto MD Active FUROSEMIDE 20 MG ORAL TABLET 1 po qd PRN Edema FUROSEMIDE 79395629643 Active Andre Barreto MD Active PROAIR HFA 108 (90 Base) MCG/ACT INHALATION AEROSOL SOLUTION 2 puffs q4hr PRN Shortness of air/Wheezing ALBUTEROL SULFATE 17868209847 Active Andre Barreto MD Active ATORVASTATIN CALCIUM 80 MG ORAL TABLET 1 po qHS ATORVASTATIN CALCIUM 02679207748 No Longer Active Andre Barreto MD Active AMBIEN 5 MG ORAL TABLET 1 po qHS PRN Insomnia ZOLPIDEM TARTRATE 23610114793 Active Andre Barreto MD Active DETROL 2 MG ORAL TABLET 1 po qd TOLTERODINE TARTRATE 43328052469 Active Andre Barreto MD Active NITROGLYCERIN 0.4 MG SUBLINGUAL TABLET SUBLINGUAL 1 SL q5min PRN Chest pain up to 3 doses NITROGLYCERIN 34278159168 Active Andre Barreto MD Active TOPROL XL 50 MG ORAL TABLET EXTENDED RELEASE 24 HOUR 1 po qd METOPROLOL SUCCINATE 18654542637 Active Andre Barreto MD Active SYMBICORT 160-4.5 MCG/ACT INHALATION AEROSOL 2 puff BID BUDESONIDE-FORMOTEROL FUMARATE 66217071362 Active Cayla VERA Active FLUOXETINE HCL 40 MG ORAL CAPSULE 1 po qd FLUOXETINE HCL 36554553306 Active Andre Barreto MD Active BENICAR HCT 40-25 MG ORAL TABLET Take one by mouth daily OLMESARTAN MEDOXOMIL-HCTZ 74446430184 No Longer Active Andre Barreto MD Active LOSARTAN POTASSIUM-HCTZ 100-25 MG ORAL TABLET 1 po qd LOSARTAN POTASSIUM-HCTZ 96604740521 Active Andre Barreto MD Active BETAMETHASONE DIPROPIONATE 0.05 % EXTERNAL OINTMENT Apply to affected areas BID for up to 2 weeks BETAMETHASONE DIPROPIONATE 41371055462 No Longer Active Andre Barreto MD Active ZOFRAN 4 MG ORAL TABLET 1 po q6hr PRN Nausea ONDANSETRON HCL 12180583743 No Longer Active Andre aBrreto MD Active CIPRO 500 MG ORAL TABLET 1 tablet by mouth twice daily CIPROFLOXACIN HCL 36404058541 No Longer Active Andre Barreto MD Active SYMBICORT 160-4.5 MCG/ACT INHALATION AEROSOL 2 puffs inhaled bid BUDESONIDE-FORMOTEROL FUMARATE 55044029296 No Longer Active Andre Barreto MD Active DICLOFENAC SODIUM 75 MG ORAL TABLET DELAYED RELEASE 1 tablet by mouth twice daily DICLOFENAC SODIUM 76015767001 No Longer Active Andre Barreto MD Active PROZAC 40 MG ORAL CAPSULE 1 cap by mouth at bedtime FLUOXETINE HCL 28897509239 No Longer Active Andre Barreto MD Active HYDROCODONE-ACETAMINOPHEN 5-325 MG ORAL TABLET 1 po q 6hr PRN Pain HYDROCODONE-ACETAMINOPHEN 93761372344 No Longer Active Andre Barreto MD Active TRAMADOL HCL 50 MG ORAL TABLET 2 po q 6 hrs prn TRAMADOL HCL 97040963701 Active Andre Barreto MD Active HYDROCODONE-ACETAMINOPHEN 5-325 MG ORAL TABLET 1 po q 6hr PRN Pain HYDROCODONE-ACETAMINOPHEN 5-325 MG ORAL TABLET 630764 HYDROCODONE- ACETAMINOPHEN Inactive PROZAC 40 MG ORAL CAPSULE 1 cap by mouth at bedtime PROZAC 40 MG ORAL CAPSULE 838672 FLUOXETINE HCL Inactive DICLOFENAC SODIUM 75 MG ORAL TABLET DELAYED RELEASE 1 tablet by mouth twice daily DICLOFENAC SODIUM 75 MG ORAL TABLET DELAYED RELEASE 522751 DICLOFENAC SODIUM Inactive SYMBICORT 160-4.5 MCG/ACT INHALATION AEROSOL 2 puffs inhaled bid SYMBICORT 160-4.5 MCG/ACT INHALATION AEROSOL BUDESONIDE-FORMOTEROL FUMARATE Inactive ZOFRAN 4 MG ORAL TABLET 1 po q6hr PRN Nausea ZOFRAN 4 MG ORAL TABLET 782176 ONDANSETRON HCL Inactive BETAMETHASONE DIPROPIONATE 0.05 % EXTERNAL OINTMENT Apply to affected areas BID for up to 2 weeks BETAMETHASONE DIPROPIONATE 0.05 % EXTERNAL OINTMENT 333422 BETAMETHASONE DIPROPIONATE Inactive BENICAR HCT 40-25 MG ORAL TABLET Take one by mouth daily BENICAR HCT 40-25 MG ORAL TABLET 998007 OLMESARTAN MEDOXOMIL-HCTZ Inactive ATORVASTATIN CALCIUM 80 MG ORAL TABLET 1 po qHS ATORVASTATIN CALCIUM 80 MG ORAL TABLET 193166 ATORVASTATIN CALCIUM Inactive PREDNISONE 20 MG ORAL TABLET 2 daily for 3 days then 1 daily for 3 days 03/27 PREDNISONE 20 MG ORAL TABLET 580425 PREDNISONE Inactive ZITHROMAX Z-NEVAEH 250 MG ORAL TABLET 2 today and then 1 daily for 4 days 03/27 ZITHROMAX Z-NEVAEH 250 MG ORAL TABLET 515285 AZITHROMYCIN Inactive BENZONATATE 200 MG ORAL CAPSULE 1 three times a day as needed for cough 03/27 BENZONATATE 200 MG ORAL CAPSULE 850463 BENZONATATE Inactive BACTRIM DS 800-160 MG ORAL TABLET 1 tab by mouth twice daily 2017 BACTRIM DS 800-160 MG ORAL TABLET 772823 TRIMETHOPRIM- SULFAMETHOXAZOLE Inactive BACTROBAN 2 % EXTERNAL OINTMENT Apply to affected area BID 05/18 BACTROBAN 2 % EXTERNAL OINTMENT MUPIROCIN Inactive GUAIFENESIN DM 400-20 MG ORAL TABLET 1 pill by mouth twice daily, if needed for cough GUAIFENESIN DM 400-20 MG ORAL TABLET 5802027 DEXTROMETHORPHAN-GUAIFENESIN Inactive ATORVASTATIN CALCIUM 40 MG ORAL TABLET 1 po qHS ATORVASTATIN CALCIUM 40 MG ORAL TABLET 704119 ATORVASTATIN CALCIUM Inactive MECLIZINE HCL 25 MG ORAL TABLET 1 po q8hr PRN Dizziness MECLIZINE HCL 25 MG ORAL TABLET 791440 MECLIZINE HCL Inactive CIPRO 500 MG ORAL TABLET 1 tablet by mouth twice daily CIPRO 500 MG ORAL TABLET 329810 CIPROFLOXACIN HCL Inactive CEFDINIR 300 MG ORAL CAPSULE by mouth twice a day CEFDINIR 300 MG ORAL CAPSULE 026235 CEFDINIR Inactive CLINDAMYCIN HCL 300 MG ORAL CAPSULE 1 po QID x 7 days CLINDAMYCIN HCL 300 MG ORAL CAPSULE 908099 CLINDAMYCIN HCL Inactive Advance Directives Directive Description [...] % 11.6-14.8 platelet count 263 10^3/MM^3 10*3/mm3 582-448 1425/07/03 leukocyte count, blood 8.1 10^3/MM^3 10*3/mm3 4.6-10.2 [...] Panel - Chemistry sodium, serum 139 mmol/L 673-643 4015/05/04 carbon dioxide, venous blood 28.7 mmol/L 21.0-32.0 [...] 6.2 % 4.3-6.0 cholesterol, serum 302 mg/dL 952-213 1833/05/04 triglyceride, serum, fasting 145 mg/dL 30-200 HDL cholesterol, serum 61 mg/dL 32-60 LDL cholesterol, serum 212 mg/dL 0-130 Lab Report: HGBA1C, Lipid Panel, Comp. Metabolic Panel - Chemistry hemoglobin A1C, blood, as % of total hemoglobin 6.2 % 4.3-6.0 cholesterol, serum 229 mg/dL 878-844 8542/07/24 triglyceride, serum, fasting 106 mg/dL 30-200 HDL cholesterol, serum 60 mg/dL 32-60 LDL cholesterol, serum 148 mg/dL 0-130 sodium, serum 139 mmol/L 566-579 4211/07/24 carbon dioxide, venous blood 34.8 mmol/L 21.0-32.0 [...] Panel - Chemistry cholesterol, serum 275 mg/dL 165-942 8473/11/07 triglyceride, serum, fasting 166 mg/dL 30-200 HDL cholesterol, serum 62 mg/dL 32-60 LDL cholesterol, serum 180 mg/dL 0-130 sodium, serum 141 mmol/L 783-796 6651/11/07 carbon dioxide, venous blood 26.3 mmol/L 21.0-32.0 [...] 0-19 Encounters Code Encounter Date Provider Facility CPT-96061 Level 4 Est. Patient 09:44:36 CDT Andre Barreto MD [facility] CPT-42275 Level 4 Est. Patient 10:07:14 CDT Andre Barreto MD [facility] CPT-91101 Level 3 Est. Patient 14:29:01 CDT Esa Jackson MD [facility] CPT-99425 Level 3 Est. Patient 14:06:16 CDT Andre Barreto MD [facility] CPT-02613 Level 3 Est. Patient 09:16:36 CDT David King [facility] CPT-43683 Level 3 Est. Patient 09:24:01 RIP TAILER David King [facility] CPT-43997 Level 3 Est. Patient 13:01:07 RIP TAILER Solitario Howe MD [facility] CPT-15206 Level 4 Est. Patient 10:26:48 RIP TAILER Andre Barreto MD [facility] CPT-33188 Level 4 Est. Patient 09:45:06 CDT Andre Barreto MD [facility] CPT-14565 Level 4 Est. Patient 11:53:39 RIP TAILER Andre Barreto MD [facility] CPT-02607 Level 4 Est. Patient 14:21:31 CDT Andre Barreto MD [facility] CPT-54958 Level 4 Est. Patient 15:24:17 CDT Andre Barreto MD [facility] CPT-54077 Level 3 Est. Patient 10:36:40 CDT Andre Barreto MD [facility] CPT-76446 Level 4 Est. Patient 11:27:43 CDT Andre Barreto MD [facility] CPT-47504 Level 3 Est. Patient 10:57:31 RIP TAILER Andre Barreto MD [facility] CPT-81191 Level 3 Est. Patient 13:53:13 RIP TAILER Andre Barreto MD [facility] CPT-16064 Level 3 Est. Patient 09:16:12 CDT Andre Barreto MD [facility] CPT-61098 Level 3 Est. Patient 14:50:35 CDT Andre Barreto MD [facility] Procedures Code Procedure Name Date Entry Date Standard Description CPT-60403 Bone Density - XRAY USE ONLY 11:55:39 CDT CPT-79607 Postop F/U Visit 14:31:27 CDT CPT-86868 Postop F/U Visit 14:30:20 CDT CPT-98473 Sono pelvis coley bladder only - XRAY USE ONLY 15:07:39 CDT CPT-91843 First Vx - Ix admin for Medicare patients 13:56:44 RIP TAILER CPT-77229 Zostavax Subcutaneous Solution Reconstituted 56546 UNT/0.65ML 12/22 13:56:44 RIP TAILER CPT-G0009 Administration of Pneumococcal Vaccine 10:12:50 CDT CPT-97093 Pneumovax 23 Injection Injectable 25 MCG/0.5ML 10:12:50 CDT CPT-G0439 Subsequent Annual Wellness Exam 09:49:25 CDT CPT-09561 First Vx - Ix admin for Medicare patients 17:55:11 RIP TAILER CPT-35012 Fluzone High-Dose Intramuscular Suspension 17:55:11 RIP TAILER CPT-63412 Venipuncture Draw Fee 14:11:36 CDT CPT-04094 Lipid - LAB USE ONLY 14:11:36 CDT CPT-24418 CMP - LAB USE ONLY 14:11:36 CDT CPT-G0438 Initial Annual Wellness Exam 13:29:06 CDT CPT-G0009 Administration of Pneumococcal Vaccine 13:26:57 CDT CPT-25305 Prevnar 13 Intramuscular Suspension 13:26:56 CDT 08/19 CPT-47940 Bone Density - XRAY USE ONLY 09:30:16 CDT CPT-Cryo Cryotherapy 08:59:26 RIP TAILER CPT-Cryo Cryotherapy 08:46:02 CDT CPT-02131 Chest 2V Frontal and Lat 14:02:13 RIP TAILER
--- OUTSIDE RECORDS SUMMARY | 2018-03-16 20:45 | XMS REPORT | Clinical Summary ---
Author Author Admin, [employer] Organization [facility] Address Unknown Phone Unavailable Allergies, Adverse Reactions, Alerts Allergy Name Reaction Description Start Date Severity Status Provider SULFA Mild No Longer Active Jillina Frazell BAG PRESS OPERATOR PENICILLIN Mild No Longer Active Jillina Frazell BAG PRESS OPERATOR ZINC Mild No Longer Active Jillina Frazell BAG PRESS OPERATOR SULFA Critical No Longer Active Marcelle [...] Coronary atherosclerosis of unspecified type of vessel, [place] or graft Obstructive sleep apnea 327.23 Active [...] Elevated blood sugar 790.29 Inactive Marcelle Key [facility] Other abnormal glucose Glucose intolerance 271.3 [...] 1 po q8hr PRN Dizziness MECLIZINE HCL 41113906172 No Longer Active Andre Barreto MD Active MELOXICAM 15 MG ORAL TABLET 1 po qd PRN Pain MELOXICAM 30389343725 Active Andre Barreto MD Active ATORVASTATIN CALCIUM 40 MG ORAL TABLET 1 po qHS ATORVASTATIN CALCIUM 64172013868 No Longer Active Andre Barreto MD Active ATORVASTATIN CALCIUM 20 MG ORAL TABLET 1 po MWF ATORVASTATIN CALCIUM 15524066820 Active Andre Barreto MD Active GUAIFENESIN DM 400-20 MG ORAL TABLET 1 pill by mouth twice daily, if needed for cough DEXTROMETHORPHAN-GUAIFENESIN 45248764815 No Longer Active Andre Barreto MD Active BACTROBAN 2 % EXTERNAL OINTMENT Apply to affected area BID 05/18 MUPIROCIN 40779081223 No Longer Active Moira Price MA Active CLINDAMYCIN HCL 300 MG ORAL CAPSULE 1 po QID x 7 days CLINDAMYCIN HCL 32015113164 No Longer Active Jillina Frazell BAG PRESS OPERATOR Active BACTRIM DS 800-160 MG ORAL TABLET 1 tab by mouth twice daily 2017 TRIMETHOPRIM-SULFAMETHOXAZOLE 99462104092 No Longer Active Jillina Frazell BAG PRESS OPERATOR Active CEFDINIR 300 MG ORAL CAPSULE by mouth twice a day CEFDINIR 54430051246 No Longer Active Jillina Frazell BAG PRESS OPERATOR Active BENZONATATE 200 MG ORAL CAPSULE 1 three times a day as needed for cough 03/27 BENZONATATE 15264316614 No Longer Active Luna Prabhakar Active ZITHROMAX Z-NEVAEH 250 MG ORAL TABLET 2 today and then 1 daily for 4 days 03/27 AZITHROMYCIN 22064484639 No Longer Active Luna Prabhakar Active PREDNISONE 20 MG ORAL TABLET 2 daily for 3 days then 1 daily for 3 days 03/27 PREDNISONE 51123652998 No Longer Active Luna Prabhakar Active CLOPIDOGREL BISULFATE 75 MG ORAL TABLET 1 po qd CLOPIDOGREL BISULFATE 10294604617 Active Andre Barreto MD Active FUROSEMIDE 20 MG ORAL TABLET 1 po qd PRN Edema FUROSEMIDE 58679226782 Active Andre Barreto MD Active PROAIR HFA 108 (90 Base) MCG/ACT INHALATION AEROSOL SOLUTION 2 puffs q4hr PRN Shortness of air/Wheezing ALBUTEROL SULFATE 99012475380 Active Andre Barreto MD Active ATORVASTATIN CALCIUM 80 MG ORAL TABLET 1 po qHS ATORVASTATIN CALCIUM 11756356967 No Longer Active Andre Barreto MD Active AMBIEN 5 MG ORAL TABLET 1 po qHS PRN Insomnia ZOLPIDEM TARTRATE 22241183233 Active Andre Barreto MD Active DETROL 2 MG ORAL TABLET 1 po qd TOLTERODINE TARTRATE 76413317171 Active Andre Barreto MD Active NITROGLYCERIN 0.4 MG SUBLINGUAL TABLET SUBLINGUAL 1 SL q5min PRN Chest pain up to 3 doses NITROGLYCERIN 44538254611 Active Andre Barreto MD Active TOPROL XL 50 MG ORAL TABLET EXTENDED RELEASE 24 HOUR 1 po qd METOPROLOL SUCCINATE 13451092589 Active Andre Barreto MD Active SYMBICORT 160-4.5 MCG/ACT INHALATION AEROSOL 2 puff BID BUDESONIDE-FORMOTEROL FUMARATE 56197278701 Active Cayla VERA Active FLUOXETINE HCL 40 MG ORAL CAPSULE 1 po qd FLUOXETINE HCL 26923330123 Active Andre Barreto MD Active BENICAR HCT 40-25 MG ORAL TABLET Take one by mouth daily OLMESARTAN MEDOXOMIL-HCTZ 01000455996 No Longer Active Andre Barreto MD Active LOSARTAN POTASSIUM-HCTZ 100-25 MG ORAL TABLET 1 po qd LOSARTAN POTASSIUM-HCTZ 72475064464 Active Andre Barreto MD Active BETAMETHASONE DIPROPIONATE 0.05 % EXTERNAL OINTMENT Apply to affected areas BID for up to 2 weeks BETAMETHASONE DIPROPIONATE 67937873906 No Longer Active Andre Barreto MD Active ZOFRAN 4 MG ORAL TABLET 1 po q6hr PRN Nausea ONDANSETRON HCL 94496232071 No Longer Active Andre Barreto MD Active CIPRO 500 MG ORAL TABLET 1 tablet by mouth twice daily CIPROFLOXACIN HCL 90478524206 No Longer Active Andre Barreto MD Active SYMBICORT 160-4.5 MCG/ACT INHALATION AEROSOL 2 puffs inhaled bid BUDESONIDE-FORMOTEROL FUMARATE 96064549761 No Longer Active Andre Barreto MD Active DICLOFENAC SODIUM 75 MG ORAL TABLET DELAYED RELEASE 1 tablet by mouth twice daily DICLOFENAC SODIUM 91841556922 No Longer Active Andre Barreto MD Active PROZAC 40 MG ORAL CAPSULE 1 cap by mouth at bedtime FLUOXETINE HCL 34401784188 No Longer Active Andre Barreto MD Active HYDROCODONE-ACETAMINOPHEN 5-325 MG ORAL TABLET 1 po q 6hr PRN Pain HYDROCODONE-ACETAMINOPHEN 74539000613 No Longer Active Andre Barreto MD Active TRAMADOL HCL 50 MG ORAL TABLET 2 po q 6 hrs prn TRAMADOL HCL 92178375067 Active Andre Barreto MD Active HYDROCODONE-ACETAMINOPHEN 5-325 MG ORAL TABLET 1 po q 6hr PRN Pain HYDROCODONE-ACETAMINOPHEN 5-325 MG ORAL TABLET 094124 HYDROCODONE- ACETAMINOPHEN Inactive PROZAC 40 MG ORAL CAPSULE 1 cap by mouth at bedtime PROZAC 40 MG ORAL CAPSULE 979065 FLUOXETINE HCL Inactive DICLOFENAC SODIUM 75 MG ORAL TABLET DELAYED RELEASE 1 tablet by mouth twice daily DICLOFENAC SODIUM 75 MG ORAL TABLET DELAYED RELEASE 748182 DICLOFENAC SODIUM Inactive SYMBICORT 160-4.5 MCG/ACT INHALATION AEROSOL 2 puffs inhaled bid SYMBICORT 160-4.5 MCG/ACT INHALATION AEROSOL BUDESONIDE-FORMOTEROL FUMARATE Inactive ZOFRAN 4 MG ORAL TABLET 1 po q6hr PRN Nausea ZOFRAN 4 MG ORAL TABLET 713650 ONDANSETRON HCL Inactive BETAMETHASONE DIPROPIONATE 0.05 % EXTERNAL OINTMENT Apply to affected areas BID for up to 2 weeks BETAMETHASONE DIPROPIONATE 0.05 % EXTERNAL OINTMENT 684410 BETAMETHASONE DIPROPIONATE Inactive BENICAR HCT 40-25 MG ORAL TABLET Take one by mouth daily BENICAR HCT 40-25 MG ORAL TABLET 239205 OLMESARTAN MEDOXOMIL-HCTZ Inactive ATORVASTATIN CALCIUM 80 MG ORAL TABLET 1 po qHS ATORVASTATIN CALCIUM 80 MG ORAL TABLET 933727 ATORVASTATIN CALCIUM Inactive PREDNISONE 20 MG ORAL TABLET 2 daily for 3 days then 1 daily for 3 days 03/27 PREDNISONE 20 MG ORAL TABLET 162167 PREDNISONE Inactive ZITHROMAX Z-NEVAEH 250 MG ORAL TABLET 2 today and then 1 daily for 4 days 03/27 ZITHROMAX Z-NEVAEH 250 MG ORAL TABLET 980927 AZITHROMYCIN Inactive BENZONATATE 200 MG ORAL CAPSULE 1 three times a day as needed for cough 03/27 BENZONATATE 200 MG ORAL CAPSULE 456622 BENZONATATE Inactive BACTRIM DS 800-160 MG ORAL TABLET 1 tab by mouth twice daily 2017 BACTRIM DS 800-160 MG ORAL TABLET 504317 TRIMETHOPRIM- SULFAMETHOXAZOLE Inactive BACTROBAN 2 % EXTERNAL OINTMENT Apply to affected area BID 05/18 BACTROBAN 2 % EXTERNAL OINTMENT MUPIROCIN Inactive GUAIFENESIN DM 400-20 MG ORAL TABLET 1 pill by mouth twice daily, if needed for cough GUAIFENESIN DM 400-20 MG ORAL TABLET 0058076 DEXTROMETHORPHAN-GUAIFENESIN Inactive ATORVASTATIN CALCIUM 40 MG ORAL TABLET 1 po qHS ATORVASTATIN CALCIUM 40 MG ORAL TABLET 610568 ATORVASTATIN CALCIUM Inactive MECLIZINE HCL 25 MG ORAL TABLET 1 po q8hr PRN Dizziness MECLIZINE HCL 25 MG ORAL TABLET 643050 MECLIZINE HCL Inactive CIPRO 500 MG ORAL TABLET 1 tablet by mouth twice daily CIPRO 500 MG ORAL TABLET 933767 CIPROFLOXACIN HCL Inactive CEFDINIR 300 MG ORAL CAPSULE by mouth twice a day CEFDINIR 300 MG ORAL CAPSULE 439352 CEFDINIR Inactive CLINDAMYCIN HCL 300 MG ORAL CAPSULE 1 po QID x 7 days CLINDAMYCIN HCL 300 MG ORAL CAPSULE 100712 CLINDAMYCIN HCL Inactive Advance Directives Directive Description [...] Panel - Chemistry sodium, serum 139 mmol/L 137-008 5191/05/04 carbon dioxide, venous blood 28.7 mmol/L 21.0-32.0 [...] 6.2 % 4.3-6.0 cholesterol, serum 302 mg/dL 176-724 1636/05/04 triglyceride, serum, fasting 145 mg/dL 30-200 HDL cholesterol, serum 61 mg/dL 32-60 LDL cholesterol, serum 212 mg/dL 0-130 Lab Report: HGBA1C, Lipid Panel, Comp. Metabolic Panel - Chemistry hemoglobin A1C, blood, as % of total hemoglobin 6.2 % 4.3-6.0 cholesterol, serum 229 mg/dL 564-170 3202/07/24 triglyceride, serum, fasting 106 mg/dL 30-200 HDL cholesterol, serum 60 mg/dL 32-60 LDL cholesterol, serum 148 mg/dL 0-130 sodium, serum 139 mmol/L 781-594 0254/07/24 carbon dioxide, venous blood 34.8 mmol/L 21.0-32.0 [...] Panel - Chemistry cholesterol, serum 275 mg/dL 623-609 5205/11/07 triglyceride, serum, fasting 166 mg/dL 30-200 HDL cholesterol, serum 62 mg/dL 32-60 LDL cholesterol, serum 180 mg/dL 0-130 sodium, serum 141 mmol/L 896-588 5679/11/07 carbon dioxide, venous blood 26.3 mmol/L 21.0-32.0 [...] 0-19 Encounters Code Encounter Date Provider Facility CPT-59703 Level 4 Est. Patient 09:44:36 CDT Andre Barreto MD [facility] CPT-29383 Level 4 Est. Patient 10:07:14 CDT Andre Barreto MD [facility] CPT-69583 Level 3 Est. Patient 14:29:01 CDT Esa Jackson MD [facility] CPT-96958 Level 3 Est. Patient 14:06:16 CDT Andre Barreto MD [facility] CPT-16162 Level 3 Est. Patient 09:16:36 CDT David King [facility] CPT-96584 Level 3 Est. Patient 09:24:01 DYNAMIC ETCHING PROCESSOR [facility] CPT-84291 Level 3 Est. Patient 13:01:07 DYNAMIC ETCHING PROCESSOR Solitario Howe MD [facility] CPT-35141 Level 4 Est. Patient 10:26:48 DYNAMIC ETCHING PROCESSOR Andre Barreto MD [facility] CPT-65644 Level 4 Est. Patient 09:45:06 CDT Andre Barreto MD [facility] CPT-33457 Level 4 Est. Patient 11:53:39 DYNAMIC ETCHING PROCESSOR Andre Barreto MD [facility] CPT-80086 Level 4 Est. Patient 14:21:31 CDT Andre Barreto MD [facility] CPT-21874 Level 4 Est. Patient 15:24:17 CDT Andre Barreto MD [facility] CPT-07032 Level 3 Est. Patient 10:36:40 CDT Andre Barreto MD [facility] CPT-20964 Level 4 Est. Patient 11:27:43 CDT Andre Barreto MD [facility] CPT-47240 Level 3 Est. Patient 10:57:31 DYNAMIC ETCHING PROCESSOR Andre Barreto MD [facility] CPT-81280 Level 3 Est. Patient 13:53:13 DYNAMIC ETCHING PROCESSOR Andre Barreto MD [facility] CPT-34616 Level 3 Est. Patient 09:16:12 CDT Andre Barreto MD [facility] CPT-03245 Level 3 Est. Patient 14:50:35 CDT Andre Barreto MD [facility] Procedures Code Procedure Name Date Entry Date Standard Description CPT-96926 Bone Density - XRAY USE ONLY 11:55:39 CDT CPT-80166 Postop F/U Visit 14:31:27 CDT CPT-84430 Postop F/U Visit 14:30:20 CDT CPT-76060 Sono pelvis coley bladder only - XRAY USE ONLY 15:07:39 CDT CPT-67104 First Vx - Ix admin for Medicare patients 13:56:44 DYNAMIC ETCHING PROCESSOR CPT-27263 Zostavax Subcutaneous Solution Reconstituted 66888 UNT/0.65ML 12/22 13:56:44 DYNAMIC ETCHING PROCESSOR CPT-G0009 Administration of Pneumococcal Vaccine 10:12:50 CDT CPT-46534 Pneumovax 23 Injection Injectable 25 MCG/0.5ML 10:12:50 CDT CPT-G0439 [facility] Annual Wellness Exam 09:49:25 CDT CPT-56986 First Vx - Ix admin for Medicare patients 17:55:11 DYNAMIC ETCHING PROCESSOR CPT-88809 Fluzone High-Dose Intramuscular Suspension 17:55:11 DYNAMIC ETCHING PROCESSOR CPT-41531 Venipuncture Draw Fee 14:11:36 CDT CPT-10762 Lipid - LAB USE ONLY 14:11:36 CDT CPT-93522 CMP - LAB USE ONLY 14:11:36 CDT CPT-G0438 Initial Annual Wellness Exam 13:29:06 CDT CPT-G0009 Administration of Pneumococcal Vaccine 13:26:57 CDT CPT-76798 Prevnar 13 Intramuscular Suspension 13:26:56 CDT 08/19 CPT-31339 Bone Density - XRAY USE ONLY 09:30:16 CDT CPT-Cryo Cryotherapy 08:59:26 DYNAMIC ETCHING PROCESSOR CPT-Cryo Cryotherapy 08:46:02 CDT CPT-68021 Chest 2V Frontal and Lat 14:02:13 DYNAMIC ETCHING PROCESSOR
--- OUTSIDE RECORDS SUMMARY | 2018-03-16 20:46 | XMS REPORT | Clinical Summary ---
Author Author Admin, [employer] Organization [facility] Address Unknown Phone Unavailable Allergies, Adverse Reactions, Alerts Allergy Name Reaction Description Start Date Severity Status Provider SULFA Mild No Longer Active Jillina Frazell BUS MONITOR PENICILLIN Mild No Longer Active Jillina Frazell BUS MONITOR ZINC Mild No Longer Active Jillina Frazell BUS MONITOR SULFA Critical No Longer Active Marcelle Yesi [...] Barreto MD Body Mass Index 50.0-59.9, adult FATIGUE ICD-780.79 Inactive Andre Barreto MD 2012 DYSPNEA ICD-786.05 Inactive Andre Barreto MD 2012 DYSPNEA ICD-786.09 Inactive Andre Barreto MD 2012 Fever ICD-780.60 [...] 1 po q8hr PRN Dizziness MECLIZINE HCL 83070772216 No Longer Active Andre Barreto MD Active MELOXICAM 15 MG ORAL TABLET 1 po qd PRN Pain MELOXICAM 23469959770 Active Andre Barreto MD Active ATORVASTATIN CALCIUM 40 MG ORAL TABLET 1 po qHS ATORVASTATIN CALCIUM 12393187686 No Longer Active Andre Barreto MD Active ATORVASTATIN CALCIUM 20 MG ORAL TABLET 1 po MWF ATORVASTATIN CALCIUM 60474006647 Active Andre Barreto MD Active GUAIFENESIN DM 400-20 MG ORAL TABLET 1 pill by mouth twice daily, if needed for cough DEXTROMETHORPHAN-GUAIFENESIN 14852567467 No Longer Active Andre Barreto MD Active BACTROBAN 2 % EXTERNAL OINTMENT Apply to affected area BID 05/18 MUPIROCIN 45714774771 No Longer Active Moira Price MA Active CLINDAMYCIN HCL 300 MG ORAL CAPSULE 1 po QID x 7 days CLINDAMYCIN HCL 40702649401 No Longer Active Jillina Frazell BUS MONITOR Active BACTRIM DS 800-160 MG ORAL TABLET 1 tab by mouth twice daily 2017 TRIMETHOPRIM-SULFAMETHOXAZOLE 09924130263 No Longer Active Jillina Frazell BUS MONITOR Active CEFDINIR 300 MG ORAL CAPSULE by mouth twice a day CEFDINIR 71966850836 No Longer Active Jillina Frazell BUS MONITOR Active BENZONATATE 200 MG ORAL CAPSULE 1 three times a day as needed for cough 03/27 BENZONATATE 35306869406 No Longer Active Luna Prabhakar Active ZITHROMAX Z-NEVAEH 250 MG ORAL TABLET 2 today and then 1 daily for 4 days 03/27 AZITHROMYCIN 80259880822 No Longer Active Luna Prabhakar Active PREDNISONE 20 MG ORAL TABLET 2 daily for 3 days then 1 daily for 3 days 03/27 PREDNISONE 02088251633 No Longer Active Luna Prabhakar Active CLOPIDOGREL BISULFATE 75 MG ORAL TABLET 1 po qd CLOPIDOGREL BISULFATE 87999177641 Active Andre Barreto MD Active FUROSEMIDE 20 MG ORAL TABLET 1 po qd PRN Edema FUROSEMIDE 26658147799 Active Andre Barreto MD Active PROAIR HFA 108 (90 Base) MCG/ACT INHALATION AEROSOL SOLUTION 2 puffs q4hr PRN Shortness of air/Wheezing ALBUTEROL SULFATE 47551904470 Active Andre Barreto MD Active ATORVASTATIN CALCIUM 80 MG ORAL TABLET 1 po qHS ATORVASTATIN CALCIUM 65355921526 No Longer Active Andre Barreto MD Active AMBIEN 5 MG ORAL TABLET 1 po qHS PRN Insomnia ZOLPIDEM TARTRATE 98460147572 Active Andre Barreto MD Active DETROL 2 MG ORAL TABLET 1 po qd TOLTERODINE TARTRATE 64577118528 Active Andre Barreto MD Active NITROGLYCERIN 0.4 MG SUBLINGUAL TABLET SUBLINGUAL 1 SL q5min PRN Chest pain up to 3 doses NITROGLYCERIN 26037232901 Active Andre Barreto MD Active TOPROL XL 50 MG ORAL TABLET EXTENDED RELEASE 24 HOUR 1 po qd METOPROLOL SUCCINATE 15013367501 Active Andre Barreto MD Active SYMBICORT 160-4.5 MCG/ACT INHALATION AEROSOL 2 puff BID BUDESONIDE-FORMOTEROL FUMARATE 95331326140 Active Cayla VERA Active FLUOXETINE HCL 40 MG ORAL CAPSULE 1 po qd FLUOXETINE HCL 74122588920 Active Andre Barreto MD Active BENICAR HCT 40-25 MG ORAL TABLET Take one by mouth daily OLMESARTAN MEDOXOMIL-HCTZ 02693553197 No Longer Active Andre Barreto MD Active LOSARTAN POTASSIUM-HCTZ 100-25 MG ORAL TABLET 1 po qd LOSARTAN POTASSIUM-HCTZ 83118651195 Active Andre Barreto MD Active BETAMETHASONE DIPROPIONATE 0.05 % EXTERNAL OINTMENT Apply to affected areas BID for up to 2 weeks BETAMETHASONE DIPROPIONATE 92818047081 No Longer Active Andre Barreto MD Active ZOFRAN 4 MG ORAL TABLET 1 po q6hr PRN Nausea ONDANSETRON HCL 83492245104 No Longer Active Andre Barreto MD Active CIPRO 500 MG ORAL TABLET 1 tablet by mouth twice daily CIPROFLOXACIN HCL 67206093518 No Longer Active Andre Barreto MD Active SYMBICORT 160-4.5 MCG/ACT INHALATION AEROSOL 2 puffs inhaled bid BUDESONIDE-FORMOTEROL FUMARATE 73613331335 No Longer Active Andre Barreto MD Active DICLOFENAC SODIUM 75 MG ORAL TABLET DELAYED RELEASE 1 tablet by mouth twice daily DICLOFENAC SODIUM 60737649140 No Longer Active Andre Barreto MD Active PROZAC 40 MG ORAL CAPSULE 1 cap by mouth at bedtime FLUOXETINE HCL 10015094564 No Longer Active Andre Barreto MD Active HYDROCODONE-ACETAMINOPHEN 5-325 MG ORAL TABLET 1 po q 6hr PRN Pain HYDROCODONE-ACETAMINOPHEN 08185535394 No Longer Active Andre Barreto MD Active TRAMADOL HCL 50 MG ORAL TABLET 2 po q 6 hrs prn TRAMADOL HCL 08810719081 Active Andre Barreto MD Active HYDROCODONE-ACETAMINOPHEN 5-325 MG ORAL TABLET 1 po q 6hr PRN Pain HYDROCODONE-ACETAMINOPHEN 5-325 MG ORAL TABLET 965646 HYDROCODONE- ACETAMINOPHEN Inactive PROZAC 40 MG ORAL CAPSULE 1 cap by mouth at bedtime PROZAC 40 MG ORAL CAPSULE 858603 FLUOXETINE HCL Inactive DICLOFENAC SODIUM 75 MG ORAL TABLET DELAYED RELEASE 1 tablet by mouth twice daily DICLOFENAC SODIUM 75 MG ORAL TABLET DELAYED RELEASE 320428 DICLOFENAC SODIUM Inactive SYMBICORT 160-4.5 MCG/ACT INHALATION AEROSOL 2 puffs inhaled bid SYMBICORT 160-4.5 MCG/ACT INHALATION AEROSOL BUDESONIDE-FORMOTEROL FUMARATE Inactive ZOFRAN 4 MG ORAL TABLET 1 po q6hr PRN Nausea ZOFRAN 4 MG ORAL TABLET 948764 ONDANSETRON HCL Inactive BETAMETHASONE DIPROPIONATE 0.05 % EXTERNAL OINTMENT Apply to affected areas BID for up to 2 weeks BETAMETHASONE DIPROPIONATE 0.05 % EXTERNAL OINTMENT 553355 BETAMETHASONE DIPROPIONATE Inactive BENICAR HCT 40-25 MG ORAL TABLET Take one by mouth daily BENICAR HCT 40-25 MG ORAL TABLET 761843 OLMESARTAN MEDOXOMIL-HCTZ Inactive ATORVASTATIN CALCIUM 80 MG ORAL TABLET 1 po qHS ATORVASTATIN CALCIUM 80 MG ORAL TABLET 356660 ATORVASTATIN CALCIUM Inactive PREDNISONE 20 MG ORAL TABLET 2 daily for 3 days then 1 daily for 3 days 03/27 PREDNISONE 20 MG ORAL TABLET 162491 PREDNISONE Inactive ZITHROMAX Z-NEVAEH 250 MG ORAL TABLET 2 today and then 1 daily for 4 days 03/27 ZITHROMAX Z-NEVAEH 250 MG ORAL TABLET 445589 AZITHROMYCIN Inactive BENZONATATE 200 MG ORAL CAPSULE 1 three times a day as needed for cough 03/27 BENZONATATE 200 MG ORAL CAPSULE 947086 BENZONATATE Inactive BACTRIM DS 800-160 MG ORAL TABLET 1 tab by mouth twice daily 2017 BACTRIM DS 800-160 MG ORAL TABLET 649725 TRIMETHOPRIM- SULFAMETHOXAZOLE Inactive BACTROBAN 2 % EXTERNAL OINTMENT Apply to affected area BID 05/18 BACTROBAN 2 % EXTERNAL OINTMENT MUPIROCIN Inactive GUAIFENESIN DM 400-20 MG ORAL TABLET 1 pill by mouth twice daily, if needed for cough GUAIFENESIN DM 400-20 MG ORAL TABLET 2452142 DEXTROMETHORPHAN-GUAIFENESIN Inactive ATORVASTATIN CALCIUM 40 MG ORAL TABLET 1 po qHS ATORVASTATIN CALCIUM 40 MG ORAL TABLET 250038 ATORVASTATIN CALCIUM Inactive MECLIZINE HCL 25 MG ORAL TABLET 1 po q8hr PRN Dizziness MECLIZINE HCL 25 MG ORAL TABLET 353761 MECLIZINE HCL Inactive CIPRO 500 MG ORAL TABLET 1 tablet by mouth twice daily CIPRO 500 MG ORAL TABLET 121399 CIPROFLOXACIN HCL Inactive CEFDINIR 300 MG ORAL CAPSULE by mouth twice a day CEFDINIR 300 MG ORAL CAPSULE 996712 CEFDINIR Inactive CLINDAMYCIN HCL 300 MG ORAL CAPSULE 1 po QID x 7 days CLINDAMYCIN HCL 300 MG ORAL CAPSULE 862024 CLINDAMYCIN HCL Inactive Advance Directives Directive Description [...] % 11.6-14.8 platelet count 263 10^3/MM^3 10*3/mm3 133-525 0937/07/24 mean corpuscular volume, RBC 92 fL 80-97 hematocrit, blood 41.5 % 37.0-47.0 hemoglobin, blood 13.5 g/dL 12.0-16.0 erythrocyte (RBC) count 4.49 10^6/MM^3 10*6/mm3 3.80-5.80 leukocyte count, blood 6.7 10^3/MM^3 10*3/mm3 4.6-10.2 Lab Report: CBC - Lab microalbumin, urine 30 mg/L 0-19 Lab Report: Comp. Metabolic Panel - Chemistry sodium, serum 139 mmol/L 313-833 1917/05/04 carbon dioxide, venous blood 28.7 mmol/L 21.0-32.0 [...] 6.2 % 4.3-6.0 cholesterol, serum 302 mg/dL 590-422 3358/05/04 triglyceride, serum, fasting 145 mg/dL 30-200 HDL cholesterol, serum 61 mg/dL 32-60 LDL cholesterol, serum 212 mg/dL 0-130 Lab Report: HGBA1C, Lipid Panel, Comp. Metabolic Panel - Chemistry hemoglobin A1C, blood, as % of total hemoglobin 6.2 % 4.3-6.0 cholesterol, serum 229 mg/dL 889-715 0479/07/24 triglyceride, serum, fasting 106 mg/dL 30-200 HDL cholesterol, serum 60 mg/dL 32-60 LDL cholesterol, serum 148 mg/dL 0-130 sodium, serum 139 mmol/L 137-457 1804/07/24 carbon dioxide, venous blood 34.8 mmol/L 21.0-32.0 [...] Panel - Chemistry cholesterol, serum 275 mg/dL 610-229 4905/11/07 triglyceride, serum, fasting 166 mg/dL 30-200 HDL cholesterol, serum 62 mg/dL 32-60 LDL cholesterol, serum 180 mg/dL 0-130 sodium, serum 141 mmol/L 040-258 3376/11/07 carbon dioxide, venous blood 26.3 mmol/L 21.0-32.0 [...] 0-19 Encounters Code Encounter Date Provider Facility CPT-69639 Level 4 Est. Patient 09:44:36 CDT Andre Barreto MD [facility] CPT-81946 Level 4 Est. Patient 10:07:14 CDT Andre Barreto MD [facility] CPT-03835 Level 3 Est. Patient 14:29:01 CDT Esa Jackson MD [facility] CPT-93702 Level 3 Est. Patient 14:06:16 CDT Andre Barreto MD [facility] CPT-02844 Level 3 Est. Patient 09:16:36 CDT David King [facility] CPT-95850 Level 3 Est. Patient 09:24:01 GENERAL MERCHANDISE MANAGER David King [facility] CPT-25934 Level 3 Est. Patient 13:01:07 GENERAL MERCHANDISE MANAGER Solitario Howe MD [facility] CPT-96923 Level 4 Est. Patient 10:26:48 GENERAL MERCHANDISE MANAGER Andre Barreto MD [facility] CPT-28108 Level 4 Est. Patient 09:45:06 CDT Andre Barreto MD [facility] CPT-54290 Level 4 Est. Patient 11:53:39 GENERAL MERCHANDISE MANAGER Andre Barreto MD [facility] CPT-36811 Level 4 Est. Patient 14:21:31 CDT Andre Barreto MD [facility] CPT-59621 Level 4 Est. Patient 15:24:17 CDT Andre Barreto MD [facility] CPT-28849 Level 3 Est. Patient 10:36:40 CDT Andre Barreto MD [facility] CPT-57726 Level 4 Est. Patient 11:27:43 CDT Andre Barreto MD [facility] CPT-59071 Level 3 Est. Patient 10:57:31 GENERAL MERCHANDISE MANAGER Andre Barreto MD [facility] CPT-51613 Level 3 Est. Patient 13:53:13 GENERAL MERCHANDISE MANAGER Andre Barreto MD [facility] CPT-57052 Level 3 Est. Patient 09:16:12 CDT Andre Barreto MD [facility] CPT-26218 Level 3 Est. Patient 14:50:35 CDT Andre Barreto MD [facility] Procedures Code Procedure Name Date Entry Date Standard Description CPT-30636 Bone Density - XRAY USE ONLY 11:55:39 CDT CPT-60749 Postop F/U Visit 14:31:27 CDT CPT-17671 Postop F/U Visit 14:30:20 CDT CPT-97011 Sono pelvis coley bladder only - XRAY USE ONLY 15:07:39 CDT CPT-82539 First Vx - Ix admin for Medicare patients 13:56:44 GENERAL MERCHANDISE MANAGER CPT-45006 Zostavax Subcutaneous Solution Reconstituted 68188 UNT/0.65ML 12/22 13:56:44 GENERAL MERCHANDISE MANAGER CPT-G0009 Administration of Pneumococcal Vaccine 10:12:50 CDT CPT-07818 Pneumovax 23 Injection Injectable 25 MCG/0.5ML 10:12:50 CDT CPT-G0439 [facility] Annual Wellness Exam 09:49:25 CDT CPT-14820 First Vx - Ix admin for Medicare patients 17:55:11 GENERAL MERCHANDISE MANAGER CPT-58234 Fluzone High-Dose Intramuscular Suspension 17:55:11 GENERAL MERCHANDISE MANAGER CPT-69358 Venipuncture Draw Fee 14:11:36 CDT CPT-78844 Lipid - LAB USE ONLY 14:11:36 CDT CPT-84050 CMP - LAB USE ONLY 14:11:36 CDT CPT-G0438 Initial Annual Wellness Exam 13:29:06 CDT CPT-G0009 Administration of Pneumococcal Vaccine 13:26:57 CDT CPT-43472 Prevnar 13 Intramuscular Suspension 13:26:56 CDT 08/19 CPT-04393 Bone Density - XRAY USE ONLY 09:30:16 CDT CPT-Cryo Cryotherapy 08:59:26 GENERAL MERCHANDISE MANAGER CPT-Cryo Cryotherapy 08:46:02 CDT CPT-24490 Chest 2V Frontal and Lat 14:02:13 GENERAL MERCHANDISE MANAGER
--- OUTSIDE RECORDS SUMMARY | 2018-03-16 20:47 | XMS REPORT | Clinical Summary ---
Author Author Admin, EDUARDO Organization [place] Address Unknown Phone Unavailable Allergies, Adverse Reactions, Alerts Allergy Name Reaction Description Start Date Severity Status Provider SULFA Mild No Longer Active Jillina Frazell SLIP SEAT COVERER PENICILLIN Mild No Longer Active Jillina Frazell SLIP SEAT COVERER ZINC Mild No Longer Active Jillina Frazell SLIP SEAT COVERER SULFA Critical No Longer Active Marcelle Yesi [...] Coronary atherosclerosis of unspecified type of vessel, [place] or graft Obstructive sleep apnea 327.23 Active Andre Barreto MD Obstructive sleep apnea (adult) (pediatric) Health screening V70.0 Active Andre Barreto MD Routine general medical examination at a health care facility Fever 780.60 Resolved Andre Barreto MD Fever, unspecified Actinic keratosis 702.0 Resolved Andre Barreto MD Actinic keratosis Seborrheic keratosis 702.19 Resolved Andre Barreto MD Other seborrheic keratosis Skin tag 701.9 Resolved Adnre Barreto MD Unspecified hypertrophic and atrophic conditions [...] positive airway pressure rx V46.2 Active Pushpa Hernandze APRN Other dependence on machines, supplemental oxygen [...] Andre Barreto MD Unsteady gait ICD-781.2 Inactive Ander Barreto MD Acute exacerbation of chronic bronchitis ICD-491.22 Inactive Solitario Howe MD Sinusitis ICD-473.9 Inactive Andre Barreto MD Abscess, skin ICD-682.9 Inactive Andre Barreto MD Medication List Medication Instructions Start Date Stop Date Generic Name NDC Status Provider Patient Instruction MECLIZINE HCL 25 MG ORAL TABLET 1 po q8hr PRN Dizziness MECLIZINE HCL 61738943183 Active Andre Barreto MD Active MELOXICAM 15 MG ORAL TABLET 1 po qd PRN Pain MELOXICAM 43445111607 Active Andre Barreto MD Active ATORVASTATIN CALCIUM 40 MG ORAL TABLET 1 po qHS ATORVASTATIN CALCIUM 30168229175 No Longer Active Andre Barreto MD Active ATORVASTATIN CALCIUM 20 MG ORAL TABLET 1 po MWF ATORVASTATIN CALCIUM 46526284029 Active Andre Barreto MD Active GUAIFENESIN DM 400-20 MG ORAL TABLET 1 pill by mouth twice daily, if needed for cough DEXTROMETHORPHAN-GUAIFENESIN 47979532627 No Longer Active Andre Barreto MD Active BACTROBAN 2 % EXTERNAL OINTMENT Apply to affected area BID 05/18 MUPIROCIN 38764520409 No Longer Active Moira Price MA Active CLINDAMYCIN HCL 300 MG ORAL CAPSULE 1 po QID x 7 days CLINDAMYCIN HCL 09405958819 No Longer Active David King APRN Active BACTRIM DS 800-160 MG ORAL TABLET 1 tab by mouth twice daily 2017 TRIMETHOPRIM-SULFAMETHOXAZOLE 92062483281 No Longer Active David King APRN Active CEFDINIR 300 MG ORAL CAPSULE by mouth twice a day CEFDINIR 75622246658 No Longer Active David King SLIP SEAT COVERER Active BENZONATATE 200 MG ORAL CAPSULE 1 three times a day as needed for cough 03/27 BENZONATATE 91919999513 No Longer Active Luna Prabhakar Active ZITHROMAX Z-NEVAEH 250 MG ORAL TABLET 2 today and then 1 daily for 4 days 03/27 AZITHROMYCIN 30789857392 No Longer Active Luna Prabhakar Active PREDNISONE 20 MG ORAL TABLET 2 daily for 3 days then 1 daily for 3 days 03/27 PREDNISONE 84890905606 No Longer Active Luna Prabhakar Active CLOPIDOGREL BISULFATE 75 MG ORAL TABLET 1 po qd CLOPIDOGREL BISULFATE 95473836856 Active Andre Barreto MD Active FUROSEMIDE 20 MG ORAL TABLET 1 po qd PRN Edema FUROSEMIDE 07727764695 Active Andre Barreto MD Active PROAIR HFA 108 (90 Base) MCG/ACT INHALATION AEROSOL SOLUTION 2 puffs q4hr PRN Shortness of air/Wheezing ALBUTEROL SULFATE 60361404396 Active Andre Barreto MD Active ATORVASTATIN CALCIUM 80 MG ORAL TABLET 1 po qHS ATORVASTATIN CALCIUM 71068489198 No Longer Active Andre Barreto MD Active AMBIEN 5 MG ORAL TABLET 1 po qHS PRN Insomnia ZOLPIDEM TARTRATE 15959150318 Active Andre Barreto MD Active DETROL 2 MG ORAL TABLET 1 po qd TOLTERODINE TARTRATE 75389779121 Active Andre Barreto MD Active NITROGLYCERIN 0.4 MG SUBLINGUAL TABLET SUBLINGUAL 1 SL q5min PRN Chest pain up to 3 doses NITROGLYCERIN 73196076574 Active Andre Barreto MD Active TOPROL XL 50 MG ORAL TABLET EXTENDED RELEASE 24 HOUR 1 po qd METOPROLOL SUCCINATE 75946529454 Active Andre Barreto MD Active SYMBICORT 160-4.5 MCG/ACT INHALATION AEROSOL 2 puff BID BUDESONIDE-FORMOTEROL FUMARATE 87604523328 Active Cayla VERA Active FLUOXETINE HCL 40 MG ORAL CAPSULE 1 po qd FLUOXETINE HCL 76390140230 Active Andre Barreto MD Active BENICAR HCT 40-25 MG ORAL TABLET Take one by mouth daily OLMESARTAN MEDOXOMIL-HCTZ 27434392882 No Longer Active Andre Barreto MD Active LOSARTAN POTASSIUM-HCTZ 100-25 MG ORAL TABLET 1 po qd LOSARTAN POTASSIUM-HCTZ 14079359619 Active Andre Barreto MD Active BETAMETHASONE DIPROPIONATE 0.05 % EXTERNAL OINTMENT Apply to affected areas BID for up to 2 weeks BETAMETHASONE DIPROPIONATE 84144606996 No Longer Active Andre Barreto MD Active ZOFRAN 4 MG ORAL TABLET 1 po q6hr PRN Nausea ONDANSETRON HCL 64421235685 No Longer Active Andre Barreto MD Active CIPRO 500 MG ORAL TABLET 1 tablet by mouth twice daily CIPROFLOXACIN HCL 02849115335 No Longer Active Andre Barreto MD Active SYMBICORT 160-4.5 MCG/ACT INHALATION AEROSOL 2 puffs inhaled bid BUDESONIDE-FORMOTEROL FUMARATE 52523028969 No Longer Active Andre Barreto MD Active DICLOFENAC SODIUM 75 MG ORAL TABLET DELAYED RELEASE 1 tablet by mouth twice daily DICLOFENAC SODIUM 20977479694 No Longer Active Andre Barreto MD Active PROZAC 40 MG ORAL CAPSULE 1 cap by mouth at bedtime FLUOXETINE HCL 71983823195 No Longer Active Andre Barreto MD Active HYDROCODONE-ACETAMINOPHEN 5-325 MG ORAL TABLET 1 po q 6hr PRN Pain HYDROCODONE-ACETAMINOPHEN 14652567402 No Longer Active Andre Barreto MD Active TRAMADOL HCL 50 MG ORAL TABLET 2 po q 6 hrs prn TRAMADOL HCL 16341081384 Active Andre Barreto MD Active HYDROCODONE-ACETAMINOPHEN 5-325 MG ORAL TABLET 1 po q 6hr PRN Pain HYDROCODONE-ACETAMINOPHEN 5-325 MG ORAL TABLET 307359 HYDROCODONE- ACETAMINOPHEN Inactive PROZAC 40 MG ORAL CAPSULE 1 cap by mouth at bedtime PROZAC 40 MG ORAL CAPSULE 969289 FLUOXETINE HCL Inactive DICLOFENAC SODIUM 75 MG ORAL TABLET DELAYED RELEASE 1 tablet by mouth twice daily DICLOFENAC SODIUM 75 MG ORAL TABLET DELAYED RELEASE 338872 DICLOFENAC SODIUM Inactive SYMBICORT 160-4.5 MCG/ACT INHALATION AEROSOL 2 puffs inhaled bid SYMBICORT 160-4.5 MCG/ACT INHALATION AEROSOL BUDESONIDE-FORMOTEROL FUMARATE Inactive ZOFRAN 4 MG ORAL TABLET 1 po q6hr PRN Nausea ZOFRAN 4 MG ORAL TABLET 585101 ONDANSETRON HCL Inactive BETAMETHASONE DIPROPIONATE 0.05 % EXTERNAL OINTMENT Apply to affected areas BID for up to 2 weeks BETAMETHASONE DIPROPIONATE 0.05 % EXTERNAL OINTMENT 980954 BETAMETHASONE DIPROPIONATE Inactive BENICAR HCT 40-25 MG ORAL TABLET Take one by mouth daily BENICAR HCT 40-25 MG ORAL TABLET 252556 OLMESARTAN MEDOXOMIL-HCTZ Inactive ATORVASTATIN CALCIUM 80 MG ORAL TABLET 1 po qHS ATORVASTATIN CALCIUM 80 MG ORAL TABLET 522520 ATORVASTATIN CALCIUM Inactive PREDNISONE 20 MG ORAL TABLET 2 daily for 3 days then 1 daily for 3 days 03/27 PREDNISONE 20 MG ORAL TABLET 086876 PREDNISONE Inactive ZITHROMAX Z-NEVAEH 250 MG ORAL TABLET 2 today and then 1 daily for 4 days 03/27 ZITHROMAX Z-NEVAEH 250 MG ORAL TABLET 179950 AZITHROMYCIN Inactive BENZONATATE 200 MG ORAL CAPSULE 1 three times a day as needed for cough 03/27 BENZONATATE 200 MG ORAL CAPSULE 878911 BENZONATATE Inactive BACTRIM DS 800-160 MG ORAL TABLET 1 tab by mouth twice daily 2017 BACTRIM DS 800-160 MG ORAL TABLET 581101 TRIMETHOPRIM- SULFAMETHOXAZOLE Inactive BACTROBAN 2 % EXTERNAL OINTMENT Apply to affected area BID 05/18 BACTROBAN 2 % EXTERNAL OINTMENT 106670 MUPIROCIN Inactive GUAIFENESIN DM 400-20 MG ORAL TABLET 1 pill by mouth twice daily, if needed for cough GUAIFENESIN DM 400-20 MG ORAL TABLET 4770331 DEXTROMETHORPHAN-GUAIFENESIN Inactive ATORVASTATIN CALCIUM 40 MG ORAL TABLET 1 po qHS ATORVASTATIN CALCIUM 40 MG ORAL TABLET 203394 ATORVASTATIN CALCIUM Inactive CIPRO 500 MG ORAL TABLET 1 tablet by mouth twice daily CIPRO 500 MG ORAL TABLET 537603 CIPROFLOXACIN HCL Inactive CEFDINIR 300 MG ORAL CAPSULE by mouth twice a day CEFDINIR 300 MG ORAL CAPSULE 971007 CEFDINIR Inactive CLINDAMYCIN HCL 300 MG ORAL CAPSULE 1 po QID x 7 days CLINDAMYCIN HCL 300 MG ORAL CAPSULE 944657 CLINDAMYCIN HCL Inactive Advance Directives Directive Description [...] Panel - Chemistry sodium, serum 139 mmol/L 771-829 3418/05/04 carbon dioxide, venous blood 28.7 mmol/L 21.0-32.0 [...] 6.2 % 4.3-6.0 cholesterol, serum 302 mg/dL 819-293 3551/05/04 triglyceride, serum, fasting 145 mg/dL 30-200 HDL cholesterol, serum 61 mg/dL 32-60 LDL cholesterol, serum 212 mg/dL 0-130 Lab Report: HGBA1C, Lipid Panel, Comp. Metabolic Panel - Chemistry hemoglobin A1C, blood, as % of total hemoglobin 6.2 % 4.3-6.0 cholesterol, serum 229 mg/dL 374-267 3123/07/24 triglyceride, serum, fasting 106 mg/dL 30-200 HDL cholesterol, serum 60 mg/dL 32-60 LDL cholesterol, serum 148 mg/dL 0-130 sodium, serum 139 mmol/L 050-209 6470/07/24 carbon dioxide, venous blood 34.8 mmol/L 21.0-32.0 [...] Panel - Chemistry cholesterol, serum 275 mg/dL 083-681 4194/11/07 triglyceride, serum, fasting 166 mg/dL 30-200 HDL cholesterol, serum 62 mg/dL 32-60 LDL cholesterol, serum 180 mg/dL 0-130 sodium, serum 141 mmol/L 674-341 2979/11/07 carbon dioxide, venous blood 26.3 mmol/L 21.0-32.0 [...] 0-19 Encounters Code Encounter Date Provider Facility CPT-32104 Level 4 Est. Patient 10:07:14 CDT Andre Barreto MD [facility] CPT-76007 Level 3 Est. Patient 14:29:01 CDT Esa Jackson MD [facility] CPT-72631 Level 3 Est. Patient 14:06:16 CDT Andre Barreto MD [facility] CPT-32044 Level 3 Est. Patient 09:16:36 CDT David King [facility] CPT-60157 Level 3 Est. Patient 09:24:01 CRITICAL CARE PARAMEDIC David King [facility] CPT-96785 Level 3 Est. Patient 13:01:07 CRITICAL CARE PARAMEDIC Solitario Howe MD [facility] CPT-21959 Level 4 Est. Patient 10:26:48 CRITICAL CARE PARAMEDIC Andre Barreto MD [facility] CPT-05476 Level 4 Est. Patient 09:45:06 CDT Andre Barreto MD [facility] CPT-50978 Level 4 Est. Patient 11:53:39 CRITICAL CARE PARAMEDIC Andre Barreto MD [facility] CPT-80149 Level 4 Est. Patient 14:21:31 CDT Andre Barreto MD [facility] CPT-33144 Level 4 Est. Patient 15:24:17 CDT Andre Barreto MD [facility] CPT-65243 Level 3 Est. Patient 10:36:40 CDT Andre Barreto MD [facility] CPT-99442 Level 4 Est. Patient 11:27:43 CDT Andre Barreto MD [facility] CPT-45070 Level 3 Est. Patient 10:57:31 CRITICAL CARE PARAMEDIC Andre Barreto MD [facility] CPT-34310 Level 3 Est. Patient 13:53:13 CRITICAL CARE PARAMEDIC Andre Barreto MD [facility] CPT-84506 Level 3 Est. Patient 09:16:12 CDT Andre Barreto MD [facility] CPT-61565 Level 3 Est. Patient 14:50:35 CDT Andre Barreto MD [facility] Procedures Code Procedure Name Date Entry Date Standard Description CPT-07089 Postop F/U Visit 14:31:27 CDT CPT-80069 Postop F/U Visit 14:30:20 CDT CPT-49232 Sono pelvis coley bladder only - XRAY USE ONLY 15:07:39 CDT CPT-87275 First Vx - Ix admin for Medicare patients 13:56:44 CRITICAL CARE PARAMEDIC CPT-97703 Zostavax Subcutaneous Solution Reconstituted 81336 UNT/0.65ML 12/22 13:56:44 CRITICAL CARE PARAMEDIC CPT-G0009 Administration of Pneumococcal Vaccine 10:12:50 CDT CPT-96982 Pneumovax 23 Injection Injectable 25 MCG/0.5ML 10:12:50 CDT CPT-G0439 Subsequent Annual Wellness Exam 09:49:25 CDT CPT-84073 First Vx - Ix admin for Medicare patients 17:55:11 CRITICAL CARE PARAMEDIC CPT-57358 Fluzone High-Dose Intramuscular Suspension 17:55:11 CRITICAL CARE PARAMEDIC CPT-53867 Venipuncture Draw Fee 14:11:36 CDT CPT-85276 Lipid - LAB USE ONLY 14:11:36 CDT CPT-91523 CMP - LAB USE ONLY 14:11:36 CDT CPT-G0438 Initial Annual Wellness Exam 13:29:06 CDT CPT-G0009 Administration of Pneumococcal Vaccine 13:26:57 CDT CPT-64657 Prevnar 13 Intramuscular Suspension 13:26:56 CDT 08/19 CPT-80820 Bone Density - XRAY USE ONLY 09:30:16 CDT CPT-Cryo Cryotherapy 08:59:26 CRITICAL CARE PARAMEDIC CPT-Cryo Cryotherapy 08:46:02 CDT CPT-76785 Chest 2V Frontal and Lat 14:02:13 CRITICAL CARE PARAMEDIC
--- OUTSIDE RECORDS SUMMARY | 2018-03-16 20:48 | XMS REPORT | Clinical Summary ---
Author Author Admin, EDUARDO Organization [place] Address Unknown Phone Unavailable Allergies, Adverse Reactions, Alerts Allergy Name Reaction Description Start Date Severity Status Provider SULFA Mild No Longer Active Jillina Frazell 1[employer] PR[employer] PENICILLIN Mild No Longer Active Jillina Frazell 1[employer] PRESSMAN [employer] WE[employer] PR[employer] ZINC Mild No Longer Active Jillina Frazell 1[employer] PRESSMAN [employer] SULFA Critical No Longer Active Marcelle Yesi [...] Coronary atherosclerosis of unspecified type of vessel, [place] or graft Obstructive sleep apnea 327.23 Active [...] airway pressure rx V46.2 Active Pushpa Hernandez 1[employer] Other dependence on machines, supplemental oxygen Osteopenia 733.90 Active Pushpa Hernandez APRN Disorder of bone and cartilage, unspecified Obstructive sleep apnea 327.23 Active Andre Barreto MD Obstructive sleep apnea (adult) (pediatric) Acute exacerbation of chronic bronchitis 491.22 Inactive Solitario Howe MD Obstructive chronic bronchitis with acute bronchitis Sinusitis 473.9 Active David King [employer] Unspecified sinusitis (chronic) Abscess, skin 682.9 Active [...] po QID x 7 days CLINDAMYCIN HCL 31749832076 Active Jillina Frazell 1[employer] Active BACTRIM DS 800-160 MG ORAL TABLET 1 tab by mouth twice daily 2017 TRIMETHOPRIM-SULFAMETHOXAZOLE 09970149272 No Longer Active Jillina Frazell 1[employer] PRESSMAN [employer] WE[employer] PR[employer] Active BACTROBAN 2 % EXTERNAL OINTMENT Apply to affected area BID MUPIROCIN 84326163403 Active Jillina Frazell 1[employer] PR[employer]MAN [employer] Active GUAIFENESIN DM 400-20 MG ORAL TABLET 1 pill by mouth twice daily, if needed for cough DEXTROMETHORPHAN-GUAIFENESIN 03161992583 Active Jillina Frazell 1[employer] PRESSMAN [employer] Active CEFDINIR 300 MG ORAL CAPSULE by mouth twice a day CEFDINIR 08859742715 No Longer Active Jillina Frazell 1[employer] PRESSMAN [employer] Active BENZONATATE 200 MG ORAL CAPSULE 1 three times a day as needed for cough 03/27 BENZONATATE 36476045412 No Longer Active Luna Prabhakar Active ZITHROMAX Z-NEVAEH 250 MG ORAL TABLET 2 today and then 1 daily for 4 days 03/27 AZITHROMYCIN 72063891925 No Longer Active Luna Prabhakar Active PREDNISONE 20 MG ORAL TABLET 2 daily for 3 days then 1 daily for 3 days 03/27 PREDNISONE 53822194939 No Longer Active Luna Prabhakar Active ATORVASTATIN CALCIUM 40 MG ORAL TABLET 1 po qHS ATORVASTATIN CALCIUM 65310656845 Active Marcelle VERA Active CLOPIDOGREL BISULFATE 75 MG ORAL TABLET 1 po qd CLOPIDOGREL BISULFATE 23379482628 Active Andre Barerto MD Active FUROSEMIDE 20 MG ORAL TABLET 1 po qd PRN Edema FUROSEMIDE 90762396501 Active Andre Barreto MD Active PROAIR HFA 108 (90 Base) MCG/ACT INHALATION AEROSOL SOLUTION 2 puffs q4hr PRN Shortness of air/Wheezing ALBUTEROL SULFATE 78668459944 Active Andre Barreto MD Active ATORVASTATIN CALCIUM 80 MG ORAL TABLET 1 po qHS ATORVASTATIN CALCIUM 90566738676 No Longer Active Andre Barreto MD Active AMBIEN 5 MG ORAL TABLET 1 po qHS PRN Insomnia ZOLPIDEM TARTRATE 91610891499 Active Andre Barreto MD Active DETROL 2 MG ORAL TABLET 1 po qd TOLTERODINE TARTRATE 75018974198 Active Andre Barreto MD Active NITROGLYCERIN 0.4 MG SUBLINGUAL TABLET SUBLINGUAL 1 SL q5min PRN Chest pain up to 3 doses NITROGLYCERIN 06463165841 Active Andre Barreto MD Active TOPROL XL 50 MG ORAL TABLET EXTENDED RELEASE 24 HOUR 1 po qd METOPROLOL SUCCINATE 64374667342 Active Adnre Barreto MD Active SYMBICORT 160-4.5 MCG/ACT INHALATION AEROSOL 2 puff BID BUDESONIDE-FORMOTEROL FUMARATE 19517441590 Active Cayla Flanagan Isabella Active FLUOXETINE HCL 40 MG ORAL CAPSULE 1 po qd FLUOXETINE HCL 00324112820 Active Andre Barreto MD Active BENICAR HCT 40-25 MG ORAL TABLET Take one by mouth daily OLMESARTAN MEDOXOMIL-HCTZ 88682420993 No Longer Active Andre Barreto MD Active LOSARTAN POTASSIUM-HCTZ 100-25 MG ORAL TABLET 1 po qd LOSARTAN POTASSIUM-HCTZ 07565366620 Active Andre Barreto MD Active BETAMETHASONE DIPROPIONATE 0.05 % EXTERNAL OINTMENT Apply to affected areas BID for up to 2 weeks BETAMETHASONE DIPROPIONATE 14767537224 No Longer Active Andre Barreto MD Active ZOFRAN 4 MG ORAL TABLET 1 po q6hr PRN Nausea ONDANSETRON HCL 97743805304 No Longer Active Andre Barreto MD Active CIPRO 500 MG ORAL TABLET 1 tablet by mouth twice daily CIPROFLOXACIN HCL 85212358923 No Longer Active Andre Barreto MD Active SYMBICORT 160-4.5 MCG/ACT INHALATION AEROSOL 2 puffs inhaled bid BUDESONIDE-FORMOTEROL FUMARATE 12858625256 No Longer Active Andre Barreto MD Active DICLOFENAC SODIUM 75 MG ORAL TABLET DELAYED RELEASE 1 tablet by mouth twice daily DICLOFENAC SODIUM 10265243710 No Longer Active Andre Barreto MD Active PROZAC 40 MG ORAL CAPSULE 1 cap by mouth at bedtime FLUOXETINE HCL 62987175755 No Longer Active Andre Barreto MD Active HYDROCODONE-ACETAMINOPHEN 5-325 MG ORAL TABLET 1 po q 6hr PRN Pain HYDROCODONE-ACETAMINOPHEN 25214040633 No Longer Active Andre Barreto MD Active TRAMADOL HCL 50 MG ORAL TABLET 2 po q 6 hrs prn TRAMADOL HCL 80656527259 Active Andre Barreto MD Active HYDROCODONE-ACETAMINOPHEN 5-325 MG ORAL TABLET 1 po q 6hr PRN Pain HYDROCODONE-ACETAMINOPHEN 5-325 MG ORAL TABLET 824431 HYDROCODONE- ACETAMINOPHEN Inactive PROZAC 40 MG ORAL CAPSULE 1 cap by mouth at bedtime PROZAC 40 MG ORAL CAPSULE 523247 FLUOXETINE HCL Inactive DICLOFENAC SODIUM 75 MG ORAL TABLET DELAYED RELEASE 1 tablet by mouth twice daily DICLOFENAC SODIUM 75 MG ORAL TABLET DELAYED RELEASE 741260 DICLOFENAC SODIUM Inactive SYMBICORT 160-4.5 MCG/ACT INHALATION AEROSOL 2 puffs inhaled bid SYMBICORT 160-4.5 MCG/ACT INHALATION AEROSOL BUDESONIDE-FORMOTEROL FUMARATE Inactive ZOFRAN 4 MG ORAL TABLET 1 po q6hr PRN Nausea ZOFRAN 4 MG ORAL TABLET 046826 ONDANSETRON HCL Inactive BETAMETHASONE DIPROPIONATE 0.05 % EXTERNAL OINTMENT Apply to affected areas BID for up to 2 weeks BETAMETHASONE DIPROPIONATE 0.05 % EXTERNAL OINTMENT 503557 BETAMETHASONE DIPROPIONATE Inactive BENICAR HCT 40-25 MG ORAL TABLET Take one by mouth daily BENICAR HCT 40-25 MG ORAL TABLET 494362 OLMESARTAN MEDOXOMIL-HCTZ Inactive ATORVASTATIN CALCIUM 80 MG ORAL TABLET 1 po qHS ATORVASTATIN CALCIUM 80 MG ORAL TABLET 397645 ATORVASTATIN CALCIUM Inactive PREDNISONE 20 MG ORAL TABLET 2 daily for 3 days then 1 daily for 3 days 03/27 PREDNISONE 20 MG ORAL TABLET 429171 PREDNISONE Inactive ZITHROMAX Z-NEVAEH 250 MG ORAL TABLET 2 today and then 1 daily for 4 days 03/27 ZITHROMAX Z-NEVAEH 250 MG ORAL TABLET 653027 AZITHROMYCIN Inactive BENZONATATE 200 MG ORAL CAPSULE 1 three times a day as needed for cough 03/27 BENZONATATE 200 MG ORAL CAPSULE 218266 BENZONATATE Inactive BACTRIM DS 800-160 MG ORAL TABLET 1 tab by mouth twice daily 2017 BACTRIM DS 800-160 MG ORAL TABLET 458447 TRIMETHOPRIM- SULFAMETHOXAZOLE Inactive CIPRO 500 MG ORAL TABLET 1 tablet by mouth twice daily CIPRO 500 MG ORAL TABLET 229978 CIPROFLOXACIN HCL Inactive CEFDINIR 300 MG ORAL CAPSULE by mouth twice a day CEFDINIR 300 MG ORAL CAPSULE 296171 CEFDINIR Inactive Advance Directives Directive Description Start [...] 6.2 % 4.3-6.0 cholesterol, serum 229 mg/dL 013-642 4114/07/24 triglyceride, serum, fasting 106 mg/dL 30-200 HDL cholesterol, serum 60 mg/dL 32-60 LDL cholesterol, serum 148 mg/dL 0-130 sodium, serum 139 mmol/L 199-880 2494/07/24 carbon dioxide, venous blood 34.8 mmol/L 21.0-32.0 [...] Panel - Chemistry cholesterol, serum 275 mg/dL 286-326 4460/11/07 triglyceride, serum, fasting 166 mg/dL 30-200 HDL cholesterol, serum 62 mg/dL 32-60 LDL cholesterol, serum 180 mg/dL 0-130 sodium, serum 141 mmol/L 424-412 7175/11/07 carbon dioxide, venous blood 26.3 mmol/L 21.0-32.0 [...] 0-19 Encounters Code Encounter Date Provider Facility CPT-52450 Level 3 Est. Patient 14:06:16 CDT Andre Barreto MD [facility] CPT-01897 Level 3 Est. Patient 09:16:36 CDT David King [facility] CPT-86106 Level 3 Est. Patient 09:24:01 COLLEGE SPECIALIST David King [facility] CPT-10282 Level 3 Est. Patient 13:01:07 COLLEGE SPECIALIST Solitario Howe MD [facility] CPT-13496 Level 4 Est. Patient 10:26:48 COLLEGE SPECIALIST Andre Barreto MD [facility] CPT-04593 Level 4 Est. Patient 09:45:06 CDT Andre Barreto MD [facility] CPT-58051 Level 4 Est. Patient 11:53:39 COLLEGE SPECIALIST Andre Barreto MD [facility] CPT-06426 Level 4 Est. Patient 14:21:31 CDT Andre Barreto MD [facility] CPT-61401 Level 4 Est. Patient 15:24:17 CDT Andre Barreto MD [facility] CPT-50425 Level 3 Est. Patient 10:36:40 CDT Andre Barreto MD [facility] CPT-06641 Level 4 Est. Patient 11:27:43 CDT Andre Barreto MD [facility] CPT-17274 Level 3 Est. Patient 10:57:31 COLLEGE SPECIALIST Andre Barreto MD [facility] CPT-96031 Level 3 Est. Patient 13:53:13 COLLEGE SPECIALIST Andre Barreto MD [facility] CPT-63845 Level 3 Est. Patient 09:16:12 CDT Andre Barreto MD [facility] CPT-58836 Level 3 Est. Patient 14:50:35 CDT Andre Barreto MD [facility] Procedures Code Procedure Name Date Entry Date Standard Description CPT-73948 First Vx - Ix admin for Medicare patients 13:56:44 COLLEGE SPECIALIST CPT-46326 Zostavax Subcutaneous Solution Reconstituted 06070 UNT/0.65ML 12/22 13:56:44 COLLEGE SPECIALIST CPT-G0009 Administration of Pneumococcal Vaccine 10:12:50 CDT CPT-46260 Pneumovax 23 Injection Injectable 25 MCG/0.5ML 10:12:50 CDT CPT-G0439 Subsequent Annual Wellness Exam 09:49:25 CDT CPT-94057 First Vx - Ix admin for Medicare patients 17:55:11 COLLEGE SPECIALIST CPT-81195 Fluzone High-Dose Intramuscular Suspension 17:55:11 COLLEGE SPECIALIST CPT-24066 Venipuncture Draw Fee 14:11:36 CDT CPT-29096 Lipid - LAB USE ONLY 14:11:36 CDT CPT-53469 CMP - LAB USE ONLY 14:11:36 CDT CPT-G0438 Initial Annual Wellness Exam 13:29:06 CDT CPT-G0009 Administration of Pneumococcal Vaccine 13:26:57 CDT CPT-37847 Prevnar 13 Intramuscular Suspension 13:26:56 CDT 08/19 CPT-15294 Bone Density - XRAY USE ONLY 09:30:16 CDT CPT-Cryo Cryotherapy 08:59:26 COLLEGE SPECIALIST CPT-Cryo Cryotherapy 08:46:02 CDT CPT-07046 Chest 2V Frontal and Lat 14:02:13 COLLEGE SPECIALIST
--- OUTSIDE RECORDS SUMMARY | 2018-03-16 20:49 | XMS REPORT | Clinical Summary ---
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 oxygen Osteopenia [...] Unsteady gait ICD-781.2 Inactive Andre Barreto MD Seborrheic keratosis ICD-702.19 Inactive Andre Barreto MD Weakness, muscle ICD-728.87 Andressa Barreto MD Medication List Medication Instructions Start Date Stop Date Generic Name NDC Status Provider Patient Instruction CLOPIDOGREL BISULFATE 75 MG ORAL TABS 1 po qd CLOPIDOGREL BISULFATE 71038859398 Active Andre Barreto MD Active FUROSEMIDE 20 MG ORAL TABS 1 po qd PRN Edema FUROSEMIDE 54180605148 Active Andre Barreto MD Active PROAIR HFA 108 (90 BASE) MCG/ACT INH AERS 2 puffs q4hr PRN Shortness of air/ Wheezing ALBUTEROL SULFATE 48470177295 Active Andre Barreto MD Active ATORVASTATIN CALCIUM 80 MG TABS 1 po qHS ATORVASTATIN CALCIUM 41255811903 No Longer Active Andre Barreto MD Active AMBIEN 5 MG TABS 1 po qHS PRN Insomnia ZOLPIDEM TARTRATE 86815868410 Active Andre Barreto MD Active DETROL 2 MG ORAL TABS 1 po qd TOLTERODINE TARTRATE 20561186932 Active Andre Barreto MD Active NITROGLYCERIN 0.4 MG SL SUBL 1 SL q5min PRN Chest pain up to 3 doses NITROGLYCERIN 70353310294 Active Andre Barreto MD Active TOPROL XL 50 MG ORAL [id number] 1 po qd METOPROLOL SUCCINATE 18381252529 Active Andre Barreto MD Active SYMBICORT 160-4.5 MCG/ACT AERO 2 puff BID BUDESONIDE- FORMOTEROL FUMARATE 52304660535 Active Cayla Flanagan [facility] Active FLUOXETINE HCL 40 MG ORAL CAPS 1 po qd FLUOXETINE HCL 22758881843 Active Andre Barreto MD Active BENICAR HCT 40-25 MG TABS Take one by mouth daily [place]LM[place]AN MEDOXOMIL-HCTZ 36052913608 No Longer Active Andre Barreto MD Active [place] POTASSIUM-HCTZ 100-25 MG TABS 1 po qd [place]ARTAN POTASSIUM-HCTZ 75036084423 Active Andre Barreto MD Active BETAMETHASONE DIPROPIONATE 0.05 % OINT Apply to affected areas BID for up to 2 weeks BETAMETHASONE DIPROPIONATE 01913960185 No Longer Active Andre Barreto MD Active ZOFRAN 4 MG TABS 1 po q6hr PRN Nausea ONDANSETRON HCL 93183864029 No Longer Active Andre Barreto MD Active CIPRO 500 MG TAB 1 tablet by mouth twice daily CIPROFLOXACIN HCL 63203824103 No Longer Active Andre Barreto MD Active SYMBICORT 160-4.5 MCG/ACT AERO 2 puffs inhaled bid BUDESONIDE- FORMOTEROL FUMARATE 13385582455 No Longer Active Andre Barreto MD Active DICLOFENAC SODIUM 75 MG TBEC 1 tablet by mouth twice daily DICLOFENAC SODIUM 36171975032 No Longer Active Andre Barreto MD Active PROZAC 40 MG CAPS 1 cap by mouth at bedtime FLUOXETINE HCL 65539320559 No Longer Active Andre Barreto MD Active HYDROCODONE-ACETAMINOPHEN 5-325 MG TABS 1 po q 6hr PRN Pain HYDROCODONE-ACETAMINOPHEN 12313308391 No Longer Active Andre Barreto MD Active TRAMADOL HCL 50 MG TABS 2 po q 6 hrs prn TRAMADOL HCL 15290922056 Active Andre Barreto MD Active HYDROCODONE-ACETAMINOPHEN 5-325 MG TABS 1 po q 6hr PRN Pain HYDROCODONE-ACETAMINOPHEN 5-325 MG TABS 877984 HYDROCODONE-ACETAMINOPHEN Inactive PROZAC 40 MG CAPS 1 cap by mouth at bedtime PROZAC 40 MG CAPS 274362 FLUOXETINE HCL Inactive DICLOFENAC SODIUM 75 MG TBEC 1 tablet by mouth twice daily DICLOFENAC SODIUM 75 MG TBEC 527390 DICLOFENAC SODIUM Inactive SYMBICORT 160-4.5 MCG/ACT AERO 2 puffs inhaled bid SYMBICORT 160-4.5 MCG/ACT AERO BUDESONIDE-FORMOTEROL FUMARATE Inactive ZOFRAN 4 MG TABS 1 po q6hr PRN Nausea ZOFRAN 4 MG TABS 986576 ONDANSETRON HCL Inactive BETAMETHASONE DIPROPIONATE 0.05 % OINT Apply to affected areas BID for up to 2 weeks BETAMETHASONE DIPROPIONATE 0.05 % OINT 432570 BETAMETHASONE DIPROPIONATE Inactive BENICAR HCT 40-25 MG TABS Take one by mouth daily BENICAR HCT 40-25 MG TABS 753703 OLMESARTAN MEDOXOMIL-HCTZ Inactive ATORVASTATIN CALCIUM 80 MG TABS 1 po qHS ATORVASTATIN CALCIUM 80 MG TABS 446262 ATORVASTATIN CALCIUM Inactive CIPRO 500 MG TAB 1 tablet by mouth twice daily CIPRO 500 MG TAB 150417 CIPROFLOXACIN HCL Inactive Advance Directives Directive Description [...] % 11.6-14.8 platelet count 263 10^3/MM^3 10*3/mm3 442-779 6961/07/24 mean corpuscular volume, RBC 92 fL 80-97 [...] 6.2 % 4.3-6.0 cholesterol, serum 229 mg/dL 463-816 8127/07/24 triglyceride, serum, fasting 106 mg/dL 30-200 HDL cholesterol, serum 60 mg/dL 32-60 LDL cholesterol, serum 148 mg/dL 0-130 sodium, serum 139 mmol/L 796-427 7929/07/24 carbon dioxide, venous blood 34.8 mmol/L 21.0-32.0 [...] 0.00-1.00 Encounters Code Encounter Date Provider Facility CPT-60173 Level 4 Est. Patient 09:45:06 CDT Andre Barreto MD [facility] CPT-66308 Level 4 Est. Patient 11:53:39 TIMBER BUCKER Andre Barreto MD [facility] CPT-86467 Level 4 Est. Patient 14:21:31 CDT Andre Barreto MD [facility] CPT-32661 Level 4 Est. Patient 15:24:17 CDT Andre Barreto MD [facility] CPT-03806 Level 3 Est. Patient 10:36:40 CDT Andre Barreto MD [facility] CPT-55527 Level 4 Est. Patient 11:27:43 CDT Andre Barreto MD [facility] CPT-18597 Level 3 Est. Patient 10:57:31 TIMBER BUCKER Andre Barreto MD [facility] CPT-21112 Level 3 Est. Patient 13:53:13 TIMBER BUCKER Andre Barreto MD [facility] CPT-50588 Level 3 Est. Patient 09:16:12 CDT Andre Barreto MD [facility] CPT-89414 Level 3 Est. Patient 14:50:35 CDT Andre Barreto MD [facility] Procedures Code Procedure Name Date Entry Date Standard Description CPT-G0009 Administration of Pneumococcal Vaccine 10:12:50 CDT CPT-29626 Pneumovax 23 Injection Injectable 25 MCG/0.5ML 10:12:50 CDT CPT-G0439 Subsequent Annual Wellness Exam 09:49:25 CDT CPT-94294 First Vx - Ix admin for Medicare patients 17:55:11 TIMBER BUCKER CPT-92031 Fluzone High-Dose Intramuscular Suspension 17:55:11 TIMBER BUCKER CPT-44532 Venipuncture Draw Fee 14:11:36 CDT CPT-48224 Lipid - LAB USE ONLY 14:11:36 CDT CPT-08976 CMP - LAB USE ONLY 14:11:36 CDT CPT-G0438 Initial Annual Wellness Exam 13:29:06 CDT CPT-G0009 Administration of Pneumococcal Vaccine 13:26:57 CDT CPT-91506 Prevnar 13 Intramuscular Suspension 13:26:56 CDT 08/19 CPT-06568 Bone Density - XRAY USE ONLY 09:30:16 CDT CPT-Cryo Cryotherapy 08:59:26 TIMBER BUCKER CPT-Cryo Cryotherapy 08:46:02 CDT CPT-75543 Chest 2V Frontal and Lat 14:02:13 TIMBER BUCKER
--- OUTSIDE RECORDS SUMMARY | 2018-03-16 20:49 | XMS REPORT | Clinical Summary ---
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, supplemental oxygen [...] Barreto MD Skin tag ICD-701.9 Inactive Andre Barerto MD 2014 Dyshidrotic eczema, hands ICD-705.81 Inactive [...] MG TABS 1 po qHS ATORVASTATIN CALCIUM 75516558464 No Longer Active Andre Barreto MD Active AMBIEN 5 MG TABS 1 po qHS PRN Insomnia ZOLPIDEM TARTRATE 65828581708 Active Andre Barreto MD Active DETROL 2 MG ORAL TABS 1 po qd TOLTERODINE TARTRATE 67862029537 Active Andre Barreto MD Active NITROGLYCERIN 0.4 MG SL SUBL 1 SL q5min PRN Chest pain up to 3 doses NITROGLYCERIN 19954457136 Active Andre Barreto MD Active TOPROL XL 50 MG ORAL [id number] 1 po qd METOPROLOL SUCCINATE 46468198614 Active Andre Barreto MD Active PLAVIX 75 MG TABS 1 po qd CLOPIDOGREL BISULFATE 83346286770 Active Andre Barreto MD Active LASIX 20 MG TAB 1 po qd PRN Edema FUROSEMIDE 53221233364 Active Andre Barreto MD Active SYMBICORT 160-4.5 MCG/ACT AERO 2 puff BID BUDESONIDE- FORMOTEROL FUMARATE 42864027647 Active Cayla VERA Active PROAIR HFA 108 (90 BASE) MCG/ACT AERS 2 puffs four times a day as needed 2015 ALBUTEROL SULFATE 46181879272 Active Andre Barreto MD Active FLUOXETINE HCL 40 MG ORAL CAPS 1 po qd FLUOXETINE HCL 08761018300 Active Andre Barreto MD Active BENICAR HCT 40-25 MG TABS Take one by mouth daily OLM[place]AN MEDOXOMIL-HCTZ 26501761915 No Longer Active Andre Barreto MD Active [place] POTASSIUM-HCTZ 100-25 MG TABS 1 po qd [place]AN POTASSIUM-HCTZ 63233453679 Active Andre Barreto MD Active BETAMETHASONE DIPROPIONATE 0.05 % OINT Apply to affected areas BID for up to 2 weeks BETAMETHASONE DIPROPIONATE 98243178289 No Longer Active Andre Barreto MD Active ZOFRAN 4 MG TABS 1 po q6hr PRN Nausea ONDANSETRON HCL 30983059735 No Longer Active Andre Barreto MD Active CIPRO 500 MG TAB 1 tablet by mouth twice daily CIPROFLOXACIN HCL 09514897459 No Longer Active Andre Barreto MD Active SYMBICORT 160-4.5 MCG/ACT AERO 2 puffs inhaled bid BUDESONIDE- FORMOTEROL FUMARATE 12821005258 No Longer Active Andre Barreto MD Active DICLOFENAC SODIUM 75 MG TBEC 1 tablet by mouth twice daily DICLOFENAC SODIUM 21697535178 No Longer Active Andre Barreto MD Active PROZAC 40 MG CAPS 1 cap by mouth at bedtime FLUOXETINE HCL 51363672389 No Longer Active Andre Barreto MD Active HYDROCODONE-ACETAMINOPHEN 5-325 MG TABS 1 po q 6hr PRN Pain HYDROCODONE-ACETAMINOPHEN 16950639943 No Longer Active Andre Barreto MD Active TRAMADOL HCL 50 MG TABS 2 po q 6 hrs prn TRAMADOL HCL 23417494416 Active Andre Barreto MD Active HYDROCODONE-ACETAMINOPHEN 5-325 MG TABS 1 po q 6hr PRN Pain HYDROCODONE-ACETAMINOPHEN 5-325 MG TABS 228310 HYDROCODONE-ACETAMINOPHEN Inactive PROZAC 40 MG CAPS 1 cap by mouth at bedtime PROZAC 40 MG CAPS 210088 FLUOXETINE HCL Inactive DICLOFENAC SODIUM 75 MG TBEC 1 tablet by mouth twice daily DICLOFENAC SODIUM 75 MG TBEC 138179 DICLOFENAC SODIUM Inactive SYMBICORT 160-4.5 MCG/ACT AERO 2 puffs inhaled bid SYMBICORT 160-4.5 MCG/ACT AERO BUDESONIDE-FORMOTEROL FUMARATE Inactive ZOFRAN 4 MG TABS 1 po q6hr PRN Nausea ZOFRAN 4 MG TABS 359499 ONDANSETRON HCL Inactive BETAMETHASONE DIPROPIONATE 0.05 % OINT Apply to affected areas BID for up to 2 weeks BETAMETHASONE DIPROPIONATE 0.05 % OINT 753660 BETAMETHASONE DIPROPIONATE Inactive BENICAR HCT 40-25 MG TABS Take one by mouth daily BENICAR HCT 40-25 MG TABS 107615 OLMESARTAN MEDOXOMIL-HCTZ Inactive ATORVASTATIN CALCIUM 80 MG TABS 1 po qHS ATORVASTATIN CALCIUM 80 MG TABS 693240 ATORVASTATIN CALCIUM Inactive CIPRO 500 MG TAB 1 tablet by mouth twice daily CIPRO 500 MG TAB 625225 CIPROFLOXACIN HCL Inactive Advance Directives Directive Description [...] Panel - Chemistry sodium, serum 143 mmol/L 546-709 6633/09/27 carbon dioxide, venous blood 30.1 mmol/L 21.0-32.0 potassium, serum 3.9 mmol/L 3.5-5.2 chloride, serum 107 mmol/L 98-107 blood glucose 114 mg/dL 65-110 urea nitrogen, blood 14 mg/dL 7-18 creatinine, serum 0.79 mg/dL 0.55-1.30 alanine aminotransferase (SGPT), serum 44 U/L 12-78 aspartate aminotransferase (SGOT), serum 25 U/L 15-37 calcium, serum 8.5 mg/dL 8.5-10.1 bilirubin, serum, total 0.30 mg/dL 0.00-1.00 cholesterol, serum 152 mg/dL 465-847 5202/09/27 triglyceride, serum, fasting 85 mg/dL 30-200 HDL cholesterol, serum 59 mg/dL 32-96 LDL cholesterol, serum 76 mg/dL 0-130 Lab Report: HGBA1C, Lipid Panel, Comp. Metabolic Panel - Chemistry hemoglobin A1C, blood, as % of total hemoglobin 6.2 % 4.3-6.0 cholesterol, serum 229 mg/dL 568-747 9953/07/24 triglyceride, serum, fasting 106 mg/dL 30-200 HDL cholesterol, serum 60 mg/dL 32-60 LDL cholesterol, serum 148 mg/dL 0-130 sodium, serum 139 mmol/L 190-286 5603/07/24 carbon dioxide, venous blood 34.8 mmol/L 21.0-32.0 [...] 0.00-1.00 Encounters Code Encounter Date Provider Facility CPT-78269 Level 4 Est. Patient 09:45:06 CDT Andre Barreto MD [facility] CPT-09851 Level 4 Est. 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 CPT-69905 Level 4 Est. Patient 14:21:31 CDT Andre Barreto MD [facility] CPT-84972 Level 4 Est. Patient 15:24:17 CDT Andre Barreto MD [facility] CPT-83612 Level 3 Est. Patient 10:36:40 CDT Andre Barreto MD [facility] CPT-56116 Level 4 Est. Patient 11:27:43 CDT Andre Barreto MD [facility] CPT-98250 Level 3 Est. Patient 10:57:31 FISHING GEAR MECHANIC Andre Barreto MD [facility] CPT-76977 Level 3 Est. Patient 13:53:13 FISHING GEAR MECHANIC Andre Barreto MD [facility] CPT-29443 Level 3 Est. Patient 09:16:12 CDT Andre Barreto MD [facility] CPT-96177 Level 3 Est. Patient 14:50:35 CDT Andre Barreto MD [facility] Procedures Code Procedure Name Date Entry Date Standard Description CPT-G0009 Administration of Pneumococcal Vaccine 10:12:50 CDT CPT-29106 Pneumovax 23 Injection Injectable 25 MCG/0.5ML 10:12:50 CDT CPT-G0439 MC Subsequent Annual Wellness Exam 09:49:25 CDT CPT-30862 First Vx - Ix admin for Medicare patients 17:55:11 FISHING GEAR MECHANIC CPT-91232 Fluzone High-Dose Intramuscular Suspension 17:55:11 FISHING GEAR MECHANIC CPT-16450 Venipuncture Draw Fee 14:11:36 CDT CPT-27838 Lipid - LAB USE ONLY 14:11:36 CDT CPT-70635 CMP - LAB USE ONLY 14:11:36 CDT CPT-G0438 Initial Annual Wellness Exam 13:29:06 CDT CPT-G0009 Administration of Pneumococcal Vaccine 13:26:57 CDT CPT-06824 Prevnar 13 Intramuscular Suspension 13:26:56 CDT 08/19 CPT-11341 Bone Density - XRAY USE ONLY 09:30:16 CDT CPT-Cryo Cryotherapy 08:59:26 FISHING GEAR MECHANIC CPT-Cryo Cryotherapy 08:46:02 CDT CPT-88413 Chest 2V Frontal and Lat 14:02:13 FISHING GEAR MECHANIC
--- OUTSIDE RECORDS SUMMARY | 2018-03-16 20:50 | XMS REPORT | Clinical Summary ---
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, supplemental oxygen [...] ORAL TABLET 1 po qHS ATORVASTATIN CALCIUM 22039849859 Active Marcellekala Key RMA Active CLOPIDOGREL BISULFATE 75 MG ORAL TABLET 1 po qd CLOPIDOGREL BISULFATE 72996750926 Active Andre Barreto MD Active FUROSEMIDE 20 MG ORAL TABLET 1 po qd PRN Edema FUROSEMIDE 14861078486 Active Andre Barreto MD Active PROAIR HFA 108 (90 Base) MCG/ACT INHALATION AEROSOL SOLUTION 2 puffs q4hr PRN Shortness of air/Wheezing ALBUTEROL SULFATE 97135608566 Active Andre Barreto MD Active ATORVASTATIN CALCIUM 80 MG ORAL TABLET 1 po qHS ATORVASTATIN CALCIUM 86243478779 No Longer Active Andre Barreto MD Active AMBIEN 5 MG ORAL TABLET 1 po qHS PRN Insomnia ZOLPIDEM TARTRATE 56989447467 Active Andre Barreto MD Active DETROL 2 MG ORAL TABLET 1 po qd TOLTERODINE TARTRATE 54028129080 Active Andre Barreto MD Active NITROGLYCERIN 0.4 MG SUBLINGUAL TABLET SUBLINGUAL 1 SL q5min PRN Chest pain up to 3 doses NITROGLYCERIN 98437608920 Active Andre Barreto MD Active TOPROL XL 50 MG ORAL TABLET EXTENDED RELEASE 24 HOUR 1 po qd METOPROLOL SUCCINATE 58685458029 Active Andre Barreto MD Active SYMBICORT 160-4.5 MCG/ACT INHALATION AEROSOL 2 puff BID BUDESONIDE-FORMOTEROL FUMARATE 48463677391 Active Cayal Flanagan [facility] Active FLUOXETINE HCL 40 MG ORAL CAPSULE 1 po qd FLUOXETINE HCL 25427133740 Active Andre Barreto MD Active BENICAR HCT 40-25 MG ORAL TABLET Take one by mouth daily OLMESARTAN MEDOXOMIL-HCTZ 59250204751 No Longer Active Andre Barreto MD Active [place] POTASSIUM-HCTZ 100-25 MG ORAL TABLET 1 po qd [place]ARTAN POTASSIUM-HCTZ 36708209663 Active Andre Barreto MD Active BETAMETHASONE DIPROPIONATE 0.05 % EXTERNAL OINTMENT Apply to affected areas BID for up to 2 weeks BETAMETHASONE DIPROPIONATE 70225959329 No Longer Active Andre Barreto MD Active ZOFRAN 4 MG ORAL TABLET 1 po q6hr PRN Nausea ONDANSETRON HCL 12950566745 No Longer Active Andre Barreto MD Active CIPRO 500 MG ORAL TABLET 1 tablet by mouth twice daily CIPROFLOXACIN HCL 77759644293 No Longer Active Andre Barreto MD Active SYMBICORT 160-4.5 MCG/ACT INHALATION AEROSOL 2 puffs inhaled bid BUDESONIDE-FORMOTEROL FUMARATE 79489396545 No Longer Active Andre Barreto MD Active DICLOFENAC SODIUM 75 MG ORAL TABLET DELAYED RELEASE 1 tablet by mouth twice daily DICLOFENAC SODIUM 59323484383 No Longer Active Andre Barreto MD Active PROZAC 40 MG ORAL CAPSULE 1 cap by mouth at bedtime FLUOXETINE HCL 36289772295 No Longer Active Andre Barreto MD Active HYDROCODONE-ACETAMINOPHEN 5-325 MG ORAL TABLET 1 po q 6hr PRN Pain HYDROCODONE-ACETAMINOPHEN 02188676166 No Longer Active Andre Barreto MD Active TRAMADOL HCL 50 MG ORAL TABLET 2 po q 6 hrs prn TRAMADOL HCL 11657920218 Active Andre Barreto MD Active HYDROCODONE-ACETAMINOPHEN 5-325 MG ORAL TABLET 1 po q 6hr PRN Pain HYDROCODONE-ACETAMINOPHEN 5-325 MG ORAL TABLET 288158 HYDROCODONE- ACETAMINOPHEN Inactive PROZAC 40 MG ORAL CAPSULE 1 cap by mouth at bedtime PROZAC 40 MG ORAL CAPSULE 154776 FLUOXETINE HCL Inactive DICLOFENAC SODIUM 75 MG ORAL TABLET DELAYED RELEASE 1 tablet by mouth twice daily DICLOFENAC SODIUM 75 MG ORAL TABLET DELAYED RELEASE 072621 DICLOFENAC SODIUM Inactive SYMBICORT 160-4.5 MCG/ACT INHALATION AEROSOL 2 puffs inhaled bid SYMBICORT 160-4.5 MCG/ACT INHALATION AEROSOL BUDESONIDE-FORMOTEROL FUMARATE Inactive ZOFRAN 4 MG ORAL TABLET 1 po q6hr PRN Nausea ZOFRAN 4 MG ORAL TABLET 175268 ONDANSETRON HCL Inactive BETAMETHASONE DIPROPIONATE 0.05 % EXTERNAL OINTMENT Apply to affected areas BID for up to 2 weeks BETAMETHASONE DIPROPIONATE 0.05 % EXTERNAL OINTMENT 129646 BETAMETHASONE DIPROPIONATE Inactive BENICAR HCT 40-25 MG ORAL TABLET Take one by mouth daily BENICAR HCT 40-25 MG ORAL TABLET 787892 OLMESARTAN MEDOXOMIL-HCTZ Inactive ATORVASTATIN CALCIUM 80 MG ORAL TABLET 1 po qHS ATORVASTATIN CALCIUM 80 MG ORAL TABLET 604173 ATORVASTATIN CALCIUM Inactive CIPRO 500 MG ORAL TABLET 1 tablet by mouth twice daily CIPRO 500 MG ORAL TABLET 775599 CIPROFLOXACIN HCL Inactive Advance Directives Directive Description [...] 6.2 % 4.3-6.0 cholesterol, serum 229 mg/dL 551-823 6845/07/24 triglyceride, serum, fasting 106 mg/dL 30-200 HDL cholesterol, serum 60 mg/dL 32-60 LDL cholesterol, serum 148 mg/dL 0-130 sodium, serum 139 mmol/L 363-710 7542/07/24 carbon dioxide, venous blood 34.8 mmol/L 21.0-32.0 [...] Panel - Chemistry cholesterol, serum 275 mg/dL 159-305 3839/11/07 triglyceride, serum, fasting 166 mg/dL 30-200 HDL cholesterol, serum 62 mg/dL 32-60 LDL cholesterol, serum 180 mg/dL 0-130 sodium, serum 141 mmol/L 473-937 3432/11/07 carbon dioxide, venous blood 26.3 mmol/L 21.0-32.0 [...] 0-19 Encounters Code Encounter Date Provider Facility CPT-93740 Level 4 Est. Patient 10:26:48 V BELT INSPECTOR Andre Barreto MD [facility] CPT-76430 Level 4 Est. Patient 09:45:06 CDT Andre Barreto MD [facility] CPT-33857 Level 4 Est. Patient 11:53:39 V BELT INSPECTOR Andre Barreto MD [facility] CPT-93319 Level 4 Est. Patient 14:21:31 CDT Andre Barreto MD [facility] CPT-66455 Level 4 Est. Patient 15:24:17 CDT Andre Barreto MD [facility] CPT-03754 Level 3 Est. Patient 10:36:40 CDT Andre Barreto MD [facility] CPT-20180 Level 4 Est. Patient 11:27:43 CDT Andre Barreto MD [facility] CPT-77854 Level 3 Est. Patient 10:57:31 V BELT INSPECTOR Andre Barreto MD [facility] CPT-41212 Level 3 Est. Patient 13:53:13 V BELT INSPECTOR Andre Barreto MD [facility] CPT-36414 Level 3 Est. Patient 09:16:12 CDT Andre Barreto MD [facility] CPT-98164 Level 3 Est. Patient 14:50:35 CDT Andre Barreto MD [facility] Procedures Code Procedure Name Date Entry Date Standard Description CPT-69590 First Vx - Ix admin for Medicare patients 13:56:44 V BELT INSPECTOR CPT-06928 Zostavax Subcutaneous Solution Reconstituted 75870 UNT/0.65ML 12/22 13:56:44 V BELT INSPECTOR CPT-G0009 Administration of Pneumococcal Vaccine 10:12:50 CDT CPT-25942 Pneumovax 23 Injection Injectable 25 MCG/0.5ML 10:12:50 CDT CPT-G0439 Subsequent Annual Wellness Exam 09:49:25 CDT CPT-49668 First Vx - Ix admin for Medicare patients 17:55:11 V BELT INSPECTOR CPT-14510 Fluzone High-Dose Intramuscular Suspension 17:55:11 V BELT INSPECTOR CPT-27623 Venipuncture Draw Fee 14:11:36 CDT CPT-75861 Lipid - LAB USE ONLY 14:11:36 CDT CPT-23954 CMP - LAB USE ONLY 14:11:36 CDT CPT-G0438 Initial Annual Wellness Exam 13:29:06 CDT CPT-G0009 Administration of Pneumococcal Vaccine 13:26:57 CDT CPT-99338 Prevnar 13 Intramuscular Suspension 13:26:56 CDT 08/19 CPT-55444 Bone Density - XRAY USE ONLY 09:30:16 CDT CPT-Cryo Cryotherapy 08:59:26 V BELT INSPECTOR CPT-Cryo Cryotherapy 08:46:02 CDT CPT-59328 Chest 2V Frontal and Lat 14:02:13 V BELT INSPECTOR
--- OUTSIDE RECORDS SUMMARY | 2018-03-16 20:50 | XMS REPORT | Clinical Summary ---
Author Author Admin, EDUARDO Organization [employer] Address Unknown Phone Unavailable Allergies, Adverse Reactions, [...] 2012 Fever ICD-780.60 Inactive Andre Barreto MD 2014/ 04/08 DYSPNEA ICD-786.09 Inactive Andre Barreto MD 2012 Dyshidrotic eczema, hands ICD-705.81 Inactive Andre Barreto MD Skin tag ICD-701.9 Inactive Andre Barreto MD 2014 Weakness, muscle ICD-728.87 Inactive Andre Barreto MD Medication List Medication Instructions Start Date Stop Date Generic Name NDC Status Provider Patient Instruction ATORVASTATIN CALCIUM 80 MG TABS 1 po qHS ATORVASTATIN CALCIUM 81467474926 Active Andre Barreto MD Active SYMBICORT 160-4.5 MCG/ACT AERO 2 puff BID BUDESONIDE- FORMOTEROL FUMARATE 02188131459 Active Andre Barreto MD Active PROAIR HFA 108 (90 BASE) MCG/ACT AERS 2 puffs four times a day as needed 2015 ALBUTEROL SULFATE 91936358105 Active Andre Barreto MD Active FLUOXETINE HCL 40 MG ORAL CAPS 1 po qd FLUOXETINE HCL 46589826164 Active Andre Barreto MD Active DETROL 2 MG ORAL TABS one tab daily TOLTERODINE TARTRATE 40740091661 Active Andre Barreto MD Active BENICAR HCT 40-25 MG TABS Take one by mouth daily OLMESARTAN MEDOXOMIL-HCTZ 42309351559 No Longer Active Andre Barreto MD Active LOSARTAN POTASSIUM-HCTZ 100-25 MG TABS 1 po qd LOSARTAN POTASSIUM-HCTZ 68392356734 Active Andre Barreto MD Active BETAMETHASONE DIPROPIONATE 0.05 % OINT Apply to affected areas BID for up to 2 weeks BETAMETHASONE DIPROPIONATE 39005731693 No Longer Active Andre Barreto MD Active ZOFRAN 4 MG TABS 1 po q6hr PRN Nausea ONDANSETRON HCL 48787339671 No Longer Active Andre Barreto MD Active CIPRO 500 MG TAB 1 tablet by mouth twice daily CIPROFLOXACIN HCL 59043549403 No Longer Active Andre Barreto MD Active SYMBICORT 160-4.5 MCG/ACT AERO 2 puffs inhaled bid BUDESONIDE- FORMOTEROL FUMARATE 02669391129 No Longer Active Andre Barreto MD Active LASIX 20 MG TAB 1 tablet by mouth daily PRN FUROSEMIDE 83640016420 Active Andre Barreto MD Active TOPROL XL 25 MG [id number] Take one by mouth daily METOPROLOL SUCCINATE 03231942786 Active Andre Barreto MD Active PLAVIX 75 MG TABS 1 tablet by mouth daily CLOPIDOGREL BISULFATE 35525991417 Active Andre Barreto MD Active NITROSTAT 0.4 MG SL TAB disolve 1 under tongue repeat if needed NITROGLYCERIN 79184823291 Active Andre Barreto MD Active DICLOFENAC SODIUM 75 MG TBEC 1 tablet by mouth twice daily DICLOFENAC SODIUM 49770904244 No Longer Active Andre Barreto MD Active PROZAC 40 MG CAPS 1 cap by mouth at bedtime FLUOXETINE HCL 30834589981 No Longer Active Andre Barreto MD Active HYDROCODONE-ACETAMINOPHEN 5-325 MG TABS 1 po q 6hr PRN Pain HYDROCODONE-ACETAMINOPHEN 76324368265 No Longer Active Andre Barreto MD Active TRAMADOL HCL 50 MG TABS 2 po q 6 hrs prn TRAMADOL HCL 61263952334 Active David King [employer] LAP[employer] P[employer]DER Active AMBIEN 5 MG TABS 1 po a hs prn ZOLPIDEM TARTRATE 01831399029 Active Andre Barreto MD Active HYDROCODONE-ACETAMINOPHEN 5-325 MG TABS 1 po q 6hr PRN Pain HYDROCODONE-ACETAMINOPHEN 5-325 MG TABS 655596 HYDROCODONE-ACETAMINOPHEN Inactive PROZAC 40 MG CAPS 1 cap by mouth at bedtime PROZAC 40 MG CAPS 629143 FLUOXETINE HCL Inactive DICLOFENAC SODIUM 75 MG TBEC 1 tablet by mouth twice daily DICLOFENAC SODIUM 75 MG TBEC 204278 DICLOFENAC SODIUM Inactive SYMBICORT 160-4.5 MCG/ACT AERO 2 puffs inhaled bid SYMBICORT 160-4.5 MCG/ACT AERO BUDESONIDE-FORMOTEROL FUMARATE Inactive ZOFRAN 4 MG TABS 1 po q6hr PRN Nausea ZOFRAN 4 MG TABS 063889 ONDANSETRON HCL Inactive BETAMETHASONE DIPROPIONATE 0.05 % OINT Apply to affected areas BID for up to 2 weeks BETAMETHASONE DIPROPIONATE 0.05 % OINT 252196 BETAMETHASONE DIPROPIONATE Inactive BENICAR HCT 40-25 MG TABS Take one by mouth daily BENICAR HCT 40-25 MG TABS OLMESARTAN MEDOXOMIL-HCTZ Inactive CIPRO 500 MG TAB 1 tablet by mouth twice daily CIPRO 500 MG TAB 302717 CIPROFLOXACIN HCL Inactive Advance Directives Directive Description [...] ... - Chemistry sodium, serum 140 mmol/L 943-955 3406/06/28 carbon dioxide, venous blood 32.4 mmol/L 21.0-32.0 potassium, serum 4.0 mmol/L 3.5-5.2 chloride, serum 101 mmol/L 98-107 blood glucose 108 mg/dL 65-110 urea nitrogen, blood 20 mg/dL 7-18 creatinine, serum 0.98 mg/dL 0.55-1.30 alanine aminotransferase (SGPT), serum 44 U/L 12-78 aspartate aminotransferase (SGOT), serum 27 U/L 15-37 calcium, serum 9.4 mg/dL 8.5-10.1 bilirubin, serum, total 0.30 mg/dL 0.00-1.00 cholesterol, serum 264 mg/dL 357-741 6176/06/28 triglyceride, serum, fasting 146 mg/dL 30-200 HDL [...] 0-19 Encounters Code Encounter Date Provider Facility CPT-37315 Level 4 Est. Patient 15:24:17 CDT Andre Barreto MD [facility] CPT-25541 Level 3 Est. Patient 10:36:40 CDT Andre Barreto MD [facility] CPT-86563 Level 4 Est. Patient 11:27:43 CDT Andre Barreto MD [facility] CPT-00845 Level 3 Est. 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 Patient 13:53:13 SORTING COWS WORKER Andre Barreto MD [facility] CPT-71252 Level 3 Est. Patient 09:16:12 CDT Andre Barreto MD [facility] CPT-90620 Level 3 Est. Patient 14:50:35 CDT Andre Barreto MD [facility] Procedures Code Procedure Name Date Entry Date Standard Description CPT-G0438 Initial Annual Wellness Exam 13:29:06 CDT CPT-G0009 Administration of Pneumococcal Vaccine 13:26:57 CDT CPT-99139 Prevnar 13 Intramuscular Suspension 13:26:56 CDT 08/19 CPT-23146 Bone Density - XRAY USE ONLY 09:30:16 CDT CPT-Cryo Cryotherapy 08:59:26 SORTING COWS WORKER CPT-Cryo Cryotherapy 08:46:02 CDT CPT-78144 Chest 2V Frontal and Lat 14:02:13 SORTING COWS WORKER
--- OUTSIDE RECORDS SUMMARY | 2018-03-16 20:51 | XMS REPORT | Clinical Summary ---
Author Author Admin, EDUARDO Organization [employer] Address Unknown Phone Unavailable Allergies, Adverse [...] Coronary atherosclerosis of unspecified type of vessel, [place] or graft Obstructive sleep apnea 327.23 Active [...] airway pressure rx V46.2 Active Pushpa Beverly PROTOZOOLOGIST Other dependence on machines, supplemental oxygen Osteopenia [...] ORAL TABS 1 po qd CLOPIDOGREL BISULFATE 03309703847 Active Andre Barreto MD Active FUROSEMIDE 20 MG ORAL TABS 1 po qd PRN Edema FUROSEMIDE 29794709511 Active Andre Barreto MD Active PROAIR HFA 108 (90 BASE) MCG/ACT INH AERS 2 puffs q4hr PRN Shortness of air/ Wheezing ALBUTEROL SULFATE 47392968523 Active Andre Barreto MD Active ATORVASTATIN CALCIUM 80 MG TABS 1 po qHS ATORVASTATIN CALCIUM 42033217535 No Longer Active Andre Barreto MD Active AMBIEN 5 MG TABS 1 po qHS PRN Insomnia ZOLPIDEM TARTRATE 62924122133 Active Andre Barreto MD Active DETROL 2 MG ORAL TABS 1 po qd TOLTERODINE TARTRATE 14741885803 Active Andre Barreto MD Active NITROGLYCERIN 0.4 MG SL SUBL 1 SL q5min PRN Chest pain up to 3 doses NITROGLYCERIN 18693829909 Active Andre Barreto MD Active TOPROL XL 50 MG ORAL [id number] 1 po qd METOPROLOL SUCCINATE 43729549223 Active Andre Barreto MD Active SYMBICORT 160-4.5 MCG/ACT AERO 2 puff BID BUDESONIDE- FORMOTEROL FUMARATE 61105085538 Active [facility] Active FLUOXETINE HCL 40 MG ORAL CAPS 1 po qd FLUOXETINE HCL 11837445093 Active Andre Barreto MD Active BENICAR HCT 40-25 MG TABS Take one by mouth daily OLMESARTAN MEDOXOMIL-HCTZ 65807294622 No Longer Active Andre Barreto MD Active LOSARTAN POTASSIUM-HCTZ 100-25 MG TABS 1 po qd LOSARTAN POTASSIUM-HCTZ 80965456449 Active Andre Barreto MD Active BETAMETHASONE DIPROPIONATE 0.05 % OINT Apply to affected areas BID for up to 2 weeks BETAMETHASONE DIPROPIONATE 87076391055 No Longer Active Andre Barreto MD Active ZOFRAN 4 MG TABS 1 po q6hr PRN Nausea ONDANSETRON HCL 97422553057 No Longer Active Andre Barreto MD Active CIPRO 500 MG TAB 1 tablet by mouth twice daily CIPROFLOXACIN HCL 21199351109 No Longer Active Andre Barreto MD Active SYMBICORT 160-4.5 MCG/ACT AERO 2 puffs inhaled bid BUDESONIDE- FORMOTEROL FUMARATE 92280791938 No Longer Active Andre Barreto MD Active DICLOFENAC SODIUM 75 MG TBEC 1 tablet by mouth twice daily DICLOFENAC SODIUM 73946079966 No Longer Active Andre Barreto MD Active PROZAC 40 MG CAPS 1 cap by mouth at bedtime FLUOXETINE HCL 04621941512 No Longer Active Andre Barreto MD Active HYDROCODONE-ACETAMINOPHEN 5-325 MG TABS 1 po q 6hr PRN Pain HYDROCODONE-ACETAMINOPHEN 10180212706 No Longer Active Andre Barreto MD Active TRAMADOL HCL 50 MG TABS 2 po q 6 hrs prn TRAMADOL HCL 24421335038 Active Andre Barreto MD Active BETAMETHASONE DIPROPIONATE 0.05 % OINT Apply to affected areas BID for up to 2 weeks BETAMETHASONE DIPROPIONATE 0.05 % OINT 441784 BETAMETHASONE DIPROPIONATE Inactive CIPRO 500 MG TAB 1 tablet by mouth twice daily CIPRO 500 MG TAB 567372 CIPROFLOXACIN HCL Inactive ZOFRAN 4 MG TABS 1 po q6hr PRN Nausea ZOFRAN 4 MG TABS 670844 ONDANSETRON HCL Inactive DICLOFENAC SODIUM 75 MG TBEC 1 tablet by mouth twice daily DICLOFENAC SODIUM 75 MG TBEC 197591 DICLOFENAC SODIUM Inactive PROZAC 40 MG CAPS 1 cap by mouth at bedtime PROZAC 40 MG CAPS 335912 FLUOXETINE HCL Inactive ATORVASTATIN CALCIUM 80 MG TABS 1 po qHS ATORVASTATIN CALCIUM 80 MG TABS 485691 ATORVASTATIN CALCIUM Inactive HYDROCODONE-ACETAMINOPHEN 5-325 MG TABS 1 po q 6hr PRN Pain HYDROCODONE-ACETAMINOPHEN 5-325 MG TABS 521194 HYDROCODONE-ACETAMINOPHEN Inactive BENICAR HCT 40-25 MG TABS Take one by mouth daily BENICAR HCT 40-25 MG TABS 687870 OLMESARTAN MEDOXOMIL-HCTZ Inactive SYMBICORT 160-4.5 MCG/ACT AERO [...] 6.2 % 4.3-6.0 cholesterol, serum 229 mg/dL 529-768 3579/07/24 triglyceride, serum, fasting 106 mg/dL 30-200 HDL cholesterol, serum 60 mg/dL 32-60 LDL cholesterol, serum 148 mg/dL 0-130 sodium, serum 139 mmol/L 031-791 5458/07/24 carbon dioxide, venous blood 34.8 mmol/L 21.0-32.0 [...] Panel - Chemistry cholesterol, serum 275 mg/dL 429-846 8885/11/07 triglyceride, serum, fasting 166 mg/dL 30-200 HDL cholesterol, serum 62 mg/dL 32-60 LDL cholesterol, serum 180 mg/dL 0-130 sodium, serum 141 mmol/L 969-362 0556/11/07 carbon dioxide, venous blood 26.3 mmol/L 21.0-32.0 [...] 0-19 Encounters Code Encounter Date Provider Facility CPT-75062 Level 4 Est. Patient 10:26:48 CORE INSPECTOR Andre Barreto MD [facility] CPT-23620 Level 4 Est. Patient 09:45:06 CDT Andre Barreto MD [facility] CPT-71559 Level 4 Est. Patient 11:53:39 CORE INSPECTOR Andre Barreto MD [facility] CPT-19627 Level 4 Est. Patient 14:21:31 CDT Andre Barreto MD [facility] CPT-80889 Level 4 Est. Patient 15:24:17 CDT Andre Barreto MD [facility] CPT-92685 Level 3 Est. Patient 10:36:40 CDT Andre Barreto MD [facility] CPT-08601 Level 4 Est. Patient 11:27:43 CDT Andre Barreto MD [facility] CPT-67832 Level 3 Est. Patient 10:57:31 CORE INSPECTOR Andre Barreto MD [facility] CPT-07072 Level 3 Est. Patient 13:53:13 CORE INSPECTOR Andre Barreto MD [facility] CPT-18865 Level 3 Est. Patient 09:16:12 CDT Andre Barreto MD [facility] CPT-23959 Level 3 Est. Patient 14:50:35 CDT Andre Barreto MD [facility] Procedures Code Procedure Name Date Entry Date Standard Description CPT-22010 First Vx - Ix admin for Medicare patients 13:56:44 CORE INSPECTOR CPT-97273 Zostavax Subcutaneous Solution Reconstituted 81613 UNT/0.65ML 12/22 13:56:44 CORE INSPECTOR CPT-G0009 Administration of Pneumococcal Vaccine 10:12:50 CDT CPT-14352 Pneumovax 23 Injection Injectable 25 MCG/0.5ML 10:12:50 CDT CPT-G0439 [facility] Annual Wellness Exam 09:49:25 CDT CPT-30451 First Vx - Ix admin for Medicare patients 17:55:11 CORE INSPECTOR CPT-82651 Fluzone High-Dose Intramuscular Suspension 17:55:11 CORE INSPECTOR CPT-54180 Venipuncture Draw Fee 14:11:36 CDT CPT-21226 Lipid - LAB USE ONLY 14:11:36 CDT CPT-40499 CMP - LAB USE ONLY 14:11:36 CDT CPT-G0438 Initial Annual Wellness Exam 13:29:06 CDT CPT-G0009 Administration of Pneumococcal Vaccine 13:26:57 CDT CPT-87911 Prevnar 13 Intramuscular Suspension 13:26:56 CDT 08/19 CPT-10637 Bone Density - XRAY USE ONLY 09:30:16 CDT CPT-Cryo Cryotherapy 08:59:26 CORE INSPECTOR CPT-Cryo Cryotherapy 08:46:02 CDT CPT-42941 Chest 2V Frontal and Lat 14:02:13 CORE INSPECTOR
--- OUTSIDE RECORDS SUMMARY | 2018-03-16 20:52 | XMS REPORT | Clinical Summary ---
Author Author Admin, EDUARDO Organization [employer] Address Unknown Phone Unavailable Allergies, Adverse Reactions, Alerts Allergy Name Reaction Description Start Date Severity Status Provider SULFA Mild No Longer Active Jillina Frazell OIM ARCHITECT PENICILLIN Mild No Longer Active Jillina Frazell OIM ARCHITECT ZINC Mild No Longer Active Jillina Frazell OIM ARCHITECT SULFA Critical No Longer Active Marcelle Yesi [...] Abscess, skin ICD-682.9 Inactive Andre Barreto MD Seborrheic keratosis ICD-702.19 Inactive Andre Barreto MD Weakness, muscle ICD-728.87 Inactive Andre Barreto MD Medication List Medication Instructions Start Date Stop Date Generic Name NDC Status Provider Patient Instruction MECLIZINE HCL 25 MG ORAL TABLET 1 po q8hr PRN Dizziness MECLIZINE HCL 49924699255 No Longer Active Andre Barreto MD Active MELOXICAM 15 MG ORAL TABLET 1 po qd PRN Pain MELOXICAM 51204438967 Active Andre Barreto MD Active ATORVASTATIN CALCIUM 40 MG ORAL TABLET 1 po qHS ATORVASTATIN CALCIUM 57089655970 No Longer Active Andre Barreto MD Active ATORVASTATIN CALCIUM 20 MG ORAL TABLET 1 po MWF ATORVASTATIN CALCIUM 60342111431 Active Andre Barreto MD Active GUAIFENESIN DM 400-20 MG ORAL TABLET 1 pill by mouth twice daily, if needed for cough DEXTROMETHORPHAN-GUAIFENESIN 83401832044 No Longer Active Andre Barreto MD Active BACTROBAN 2 % EXTERNAL OINTMENT Apply to affected area BID 05/18 MUPIROCIN 37533198832 No Longer Active Moira Price MA Active CLINDAMYCIN HCL 300 MG ORAL CAPSULE 1 po QID x 7 days CLINDAMYCIN HCL 59188817127 No Longer Active Jillina Frazell OIM ARCHITECT Active BACTRIM DS 800-160 MG ORAL TABLET 1 tab by mouth twice daily 2017 TRIMETHOPRIM-SULFAMETHOXAZOLE 67082582896 No Longer Active Jillina Frazell OIM ARCHITECT Active CEFDINIR 300 MG ORAL CAPSULE by mouth twice a day CEFDINIR 85642737298 No Longer Active Jillina Frazell OIM ARCHITECT Active BENZONATATE 200 MG ORAL CAPSULE 1 three times a day as needed for cough 03/27 BENZONATATE 33286408954 No Longer Active Luna Prabhakar Active ZITHROMAX Z-NEVAEH 250 MG ORAL TABLET 2 today and then 1 daily for 4 days 03/27 AZITHROMYCIN 31634237555 No Longer Active Luna Prabhakar Active PREDNISONE 20 MG ORAL TABLET 2 daily for 3 days then 1 daily for 3 days 03/27 PREDNISONE 11791183980 No Longer Active Luna Prabhakar Active CLOPIDOGREL BISULFATE 75 MG ORAL TABLET 1 po qd CLOPIDOGREL BISULFATE 37411969157 Active Andre Barreto MD Active FUROSEMIDE 20 MG ORAL TABLET 1 po qd PRN Edema FUROSEMIDE 72609375451 Active Andre Barreto MD Active PROAIR HFA 108 (90 Base) MCG/ACT INHALATION AEROSOL SOLUTION 2 puffs q4hr PRN Shortness of air/Wheezing ALBUTEROL SULFATE 78532739343 Active Andre Barreto MD Active ATORVASTATIN CALCIUM 80 MG ORAL TABLET 1 po qHS ATORVASTATIN CALCIUM 61253076772 No Longer Active Andre Barreto MD Active AMBIEN 5 MG ORAL TABLET 1 po qHS PRN Insomnia ZOLPIDEM TARTRATE 73263669747 Active Andre Barreto MD Active DETROL 2 MG ORAL TABLET 1 po qd TOLTERODINE TARTRATE 77802670958 Active Andre Barerto MD Active NITROGLYCERIN 0.4 MG SUBLINGUAL TABLET SUBLINGUAL 1 SL q5min PRN Chest pain up to 3 doses NITROGLYCERIN 95558458110 Active Andre Barreto MD Active TOPROL XL 50 MG ORAL TABLET EXTENDED RELEASE 24 HOUR 1 po qd METOPROLOL SUCCINATE 23573880664 Active Andre Barreto MD Active SYMBICORT 160-4.5 MCG/ACT INHALATION AEROSOL 2 puff BID BUDESONIDE-FORMOTEROL FUMARATE 37587733302 Active Cayla VERA Active FLUOXETINE HCL 40 MG ORAL CAPSULE 1 po qd FLUOXETINE HCL 43585731475 Active Andre Barreto MD Active BENICAR HCT 40-25 MG ORAL TABLET Take one by mouth daily OLMESARTAN MEDOXOMIL-HCTZ 09903010529 No Longer Active Andre Barreto MD Active LOSARTAN POTASSIUM-HCTZ 100-25 MG ORAL TABLET 1 po qd LOSARTAN POTASSIUM-HCTZ 14425161068 Active Andre Barreto MD Active BETAMETHASONE DIPROPIONATE 0.05 % EXTERNAL OINTMENT Apply to affected areas BID for up to 2 weeks BETAMETHASONE DIPROPIONATE 05402562656 No Longer Active Andre Barreto MD Active ZOFRAN 4 MG ORAL TABLET 1 po q6hr PRN Nausea ONDANSETRON HCL 17805726171 No Longer Active Andre Barreto MD Active CIPRO 500 MG ORAL TABLET 1 tablet by mouth twice daily CIPROFLOXACIN HCL 63204716219 No Longer Active Andre Barreto MD Active SYMBICORT 160-4.5 MCG/ACT INHALATION AEROSOL 2 puffs inhaled bid BUDESONIDE-FORMOTEROL FUMARATE 15705892274 No Longer Active Andre Barreto MD Active DICLOFENAC SODIUM 75 MG ORAL TABLET DELAYED RELEASE 1 tablet by mouth twice daily DICLOFENAC SODIUM 03283498045 No Longer Active Andre Barreto MD Active PROZAC 40 MG ORAL CAPSULE 1 cap by mouth at bedtime FLUOXETINE HCL 09442399601 No Longer Active Andre Barreto MD Active HYDROCODONE-ACETAMINOPHEN 5-325 MG ORAL TABLET 1 po q 6hr PRN Pain HYDROCODONE-ACETAMINOPHEN 70994612045 No Longer Active Andre Barreto MD Active TRAMADOL HCL 50 MG ORAL TABLET 2 po q 6 hrs prn TRAMADOL HCL 45476502419 Active Andre Barreto MD Active HYDROCODONE-ACETAMINOPHEN 5-325 MG ORAL TABLET 1 po q 6hr PRN Pain HYDROCODONE-ACETAMINOPHEN 5-325 MG ORAL TABLET 102372 HYDROCODONE- ACETAMINOPHEN Inactive PROZAC 40 MG ORAL CAPSULE 1 cap by mouth at bedtime PROZAC 40 MG ORAL CAPSULE 690204 FLUOXETINE HCL Inactive DICLOFENAC SODIUM 75 MG ORAL TABLET DELAYED RELEASE 1 tablet by mouth twice daily DICLOFENAC SODIUM 75 MG ORAL TABLET DELAYED RELEASE 093609 DICLOFENAC SODIUM Inactive SYMBICORT 160-4.5 MCG/ACT INHALATION AEROSOL 2 puffs inhaled bid SYMBICORT 160-4.5 MCG/ACT INHALATION AEROSOL BUDESONIDE-FORMOTEROL FUMARATE Inactive ZOFRAN 4 MG ORAL TABLET 1 po q6hr PRN Nausea ZOFRAN 4 MG ORAL TABLET 497413 ONDANSETRON HCL Inactive BETAMETHASONE DIPROPIONATE 0.05 % EXTERNAL OINTMENT Apply to affected areas BID for up to 2 weeks BETAMETHASONE DIPROPIONATE 0.05 % EXTERNAL OINTMENT 589325 BETAMETHASONE DIPROPIONATE Inactive BENICAR HCT 40-25 MG ORAL TABLET Take one by mouth daily BENICAR HCT 40-25 MG ORAL TABLET 759790 OLMESARTAN MEDOXOMIL-HCTZ Inactive ATORVASTATIN CALCIUM 80 MG ORAL TABLET 1 po qHS ATORVASTATIN CALCIUM 80 MG ORAL TABLET 185976 ATORVASTATIN CALCIUM Inactive PREDNISONE 20 MG ORAL TABLET 2 daily for 3 days then 1 daily for 3 days 03/27 PREDNISONE 20 MG ORAL TABLET 758638 PREDNISONE Inactive ZITHROMAX Z-NEVAEH 250 MG ORAL TABLET 2 today and then 1 daily for 4 days 03/27 ZITHROMAX Z-NEVAEH 250 MG ORAL TABLET 538389 AZITHROMYCIN Inactive BENZONATATE 200 MG ORAL CAPSULE 1 three times a day as needed for cough 03/27 BENZONATATE 200 MG ORAL CAPSULE 129744 BENZONATATE Inactive BACTRIM DS 800-160 MG ORAL TABLET 1 tab by mouth twice daily 2017 BACTRIM DS 800-160 MG ORAL TABLET 797060 TRIMETHOPRIM- SULFAMETHOXAZOLE Inactive BACTROBAN 2 % EXTERNAL OINTMENT Apply to affected area BID 05/18 BACTROBAN 2 % EXTERNAL OINTMENT MUPIROCIN Inactive GUAIFENESIN DM 400-20 MG ORAL TABLET 1 pill by mouth twice daily, if needed for cough GUAIFENESIN DM 400-20 MG ORAL TABLET 1165289 DEXTROMETHORPHAN-GUAIFENESIN Inactive ATORVASTATIN CALCIUM 40 MG ORAL TABLET 1 po qHS ATORVASTATIN CALCIUM 40 MG ORAL TABLET 452697 ATORVASTATIN CALCIUM Inactive MECLIZINE HCL 25 MG ORAL TABLET 1 po q8hr PRN Dizziness MECLIZINE HCL 25 MG ORAL TABLET 529654 MECLIZINE HCL Inactive CIPRO 500 MG ORAL TABLET 1 tablet by mouth twice daily CIPRO 500 MG ORAL TABLET 044815 CIPROFLOXACIN HCL Inactive CEFDINIR 300 MG ORAL CAPSULE by mouth twice a day CEFDINIR 300 MG ORAL CAPSULE 379996 CEFDINIR Inactive CLINDAMYCIN HCL 300 MG ORAL CAPSULE 1 po QID x 7 days CLINDAMYCIN HCL 300 MG ORAL CAPSULE 014189 CLINDAMYCIN HCL Inactive Advance Directives Directive Description [...] Panel - Chemistry sodium, serum 139 mmol/L 612-407 8945/05/04 carbon dioxide, venous blood 28.7 mmol/L 21.0-32.0 [...] 6.2 % 4.3-6.0 cholesterol, serum 302 mg/dL 697-113 4791/05/04 triglyceride, serum, fasting 145 mg/dL 30-200 HDL cholesterol, serum 61 mg/dL 32-60 LDL cholesterol, serum 212 mg/dL 0-130 Lab Report: HGBA1C, Lipid Panel, Comp. Metabolic Panel - Chemistry hemoglobin A1C, blood, as % of total hemoglobin 6.2 % 4.3-6.0 cholesterol, serum 229 mg/dL 526-236 2872/07/24 triglyceride, serum, fasting 106 mg/dL 30-200 HDL cholesterol, serum 60 mg/dL 32-60 LDL cholesterol, serum 148 mg/dL 0-130 sodium, serum 139 mmol/L 246-578 6094/07/24 carbon dioxide, venous blood 34.8 mmol/L 21.0-32.0 [...] Panel - Chemistry cholesterol, serum 275 mg/dL 579-695 7875/11/07 triglyceride, serum, fasting 166 mg/dL 30-200 HDL cholesterol, serum 62 mg/dL 32-60 LDL cholesterol, serum 180 mg/dL 0-130 sodium, serum 141 mmol/L 390-676 4552/11/07 carbon dioxide, venous blood 26.3 mmol/L 21.0-32.0 [...] 0-19 Encounters Code Encounter Date Provider Facility CPT-56510 Level 4 Est. Patient 09:44:36 CDT Andre Barreto MD [facility] CPT-26108 Level 4 Est. Patient 10:07:14 CDT Andre Barreto MD [facility] CPT-06309 Level 3 Est. Patient 14:29:01 CDT Esa Jackson MD [facility] CPT-43808 Level 3 Est. Patient 14:06:16 CDT Andre Barreto MD [facility] CPT-66539 Level 3 Est. Patient 09:16:36 CDT David King [facility] CPT-42997 Level 3 Est. Patient 09:24:01 SPINNING FRAME FIXER David King [facility] CPT-37888 Level 3 Est. Patient 13:01:07 SPINNING FRAME FIXER Solitario Howe MD [facility] CPT-69227 Level 4 Est. Patient 10:26:48 SPINNING FRAME FIXER Andre Barreto MD [facility] CPT-92969 Level 4 Est. Patient 09:45:06 CDT Andre Barreto MD [facility] CPT-43874 Level 4 Est. Patient 11:53:39 SPINNING FRAME FIXER Andre Barreto MD [facility] CPT-91118 Level 4 Est. Patient 14:21:31 CDT Andre Barreto MD [facility] CPT-80458 Level 4 Est. Patient 15:24:17 CDT Ander Barreto MD [facility] CPT-64059 Level 3 Est. Patient 10:36:40 CDT Andre Barreto MD [facility] CPT-95768 Level 4 Est. Patient 11:27:43 CDT Andre Barreto MD [facility] CPT-27759 Level 3 Est. Patient 10:57:31 SPINNING FRAME FIXER Andre Barreto MD [facility] CPT-26757 Level 3 Est. Patient 13:53:13 SPINNING FRAME FIXER Andre Barreto MD [facility] CPT-71260 Level 3 Est. Patient 09:16:12 CDT Andre Barreto MD [facility] CPT-52764 Level 3 Est. Patient 14:50:35 CDT Andre Barreto MD [facility] Procedures Code Procedure Name Date Entry Date Standard Description CPT-47082 Postop F/U Visit 14:31:27 CDT CPT-42818 Postop F/U Visit 14:30:20 CDT CPT-64033 Sono pelvis coley bladder only - XRAY USE ONLY 15:07:39 CDT CPT-24752 First Vx - Ix admin for Medicare patients 13:56:44 SPINNING FRAME FIXER CPT-86225 Zostavax Subcutaneous Solution Reconstituted 34856 UNT/0.65ML 12/22 13:56:44 SPINNING FRAME FIXER CPT-G0009 Administration of Pneumococcal Vaccine 10:12:50 CDT CPT-03718 Pneumovax 23 Injection Injectable 25 MCG/0.5ML 10:12:50 CDT CPT-G0439 [facility] Annual Wellness Exam 09:49:25 CDT CPT-76618 First Vx - Ix admin for Medicare patients 17:55:11 SPINNING FRAME FIXER CPT-14611 Fluzone High-Dose Intramuscular Suspension 17:55:11 SPINNING FRAME FIXER CPT-76354 Venipuncture Draw Fee 14:11:36 CDT CPT-11520 Lipid - LAB USE ONLY 14:11:36 CDT CPT-77398 CMP - LAB USE ONLY 14:11:36 CDT CPT-G0438 Initial Annual Wellness Exam 13:29:06 CDT CPT-G0009 Administration of Pneumococcal Vaccine 13:26:57 CDT CPT-47011 Prevnar 13 Intramuscular Suspension 13:26:56 CDT 08/19 CPT-97025 Bone Density - XRAY USE ONLY 09:30:16 CDT CPT-Cryo Cryotherapy 08:59:26 SPINNING FRAME FIXER CPT-Cryo Cryotherapy 08:46:02 CDT CPT-50588 Chest 2V Frontal and Lat 14:02:13 SPINNING FRAME FIXER
--- OUTSIDE RECORDS SUMMARY | 2018-03-16 20:53 | XMS REPORT | Clinical Summary ---
Author Author Admin, [employer] Organization [employer] Address Unknown Phone Unavailable Allergies, Adverse Reactions, Alerts Allergy Name Reaction Description Start Date Severity Status Provider SULFA Mild No Longer Active Jillina Frazell B2B APPOINTMENT SETTER PENICILLIN Mild No Longer Active Jillina Frazell B2B APPOINTMENT SETTER ZINC Mild No Longer Active Jillina Frazell B2B APPOINTMENT SETTER SULFA Critical No Longer Active Marcelle Yesi [...] Coronary atherosclerosis of unspecified type of vessel, [place] or graft Obstructive sleep apnea 327.23 Active [...] po QID x 7 days CLINDAMYCIN HCL 07574406047 Active Jillina Frazell B2B APPOINTMENT SETTER Active BACTRIM DS 800-160 MG ORAL TABLET 1 tab by mouth twice daily 2017 TRIMETHOPRIM-SULFAMETHOXAZOLE 34477932269 No Longer Active Jillina Frazell B2B APPOINTMENT SETTER Active BACTROBAN 2 % EXTERNAL OINTMENT Apply to affected area BID MUPIROCIN 13305731161 Active Jillina Frazell B2B APPOINTMENT SETTER Active GUAIFENESIN DM 400-20 MG ORAL TABLET 1 pill by mouth twice daily, if needed for cough DEXTROMETHORPHAN-GUAIFENESIN 06034389291 Active Jillina Frazell B2B APPOINTMENT SETTER Active CEFDINIR 300 MG ORAL CAPSULE by mouth twice a day CEFDINIR 67543782144 No Longer Active Jillina Frazell B2B APPOINTMENT SETTER Active BENZONATATE 200 MG ORAL CAPSULE 1 three times a day as needed for cough 03/27 BENZONATATE 59965653904 No Longer Active Luna Prabhakar Active ZITHROMAX Z-NEVAEH 250 MG ORAL TABLET 2 today and then 1 daily for 4 days 03/27 AZITHROMYCIN 10005230224 No Longer Active Luna Prabhakar Active PREDNISONE 20 MG ORAL TABLET 2 daily for 3 days then 1 daily for 3 days 03/27 PREDNISONE 79129418407 No Longer Active Luna Prabhakar Active ATORVASTATIN CALCIUM 40 MG ORAL TABLET 1 po qHS ATORVASTATIN CALCIUM 82979510376 Active Marcelle Key Isabella Active CLOPIDOGREL BISULFATE 75 MG ORAL TABLET 1 po qd CLOPIDOGREL BISULFATE 36080440516 Active Andre Barreto MD Active FUROSEMIDE 20 MG ORAL TABLET 1 po qd PRN Edema FUROSEMIDE 55580164409 Active Andre Barreto MD Active PROAIR HFA 108 (90 Base) MCG/ACT INHALATION AEROSOL SOLUTION 2 puffs q4hr PRN Shortness of air/Wheezing ALBUTEROL SULFATE 82039629686 Active Andre Barreto MD Active ATORVASTATIN CALCIUM 80 MG ORAL TABLET 1 po qHS ATORVASTATIN CALCIUM 46260286509 No Longer Active Andre Barreto MD Active AMBIEN 5 MG ORAL TABLET 1 po qHS PRN Insomnia ZOLPIDEM TARTRATE 53261008523 Active Andre Barreto MD Active DETROL 2 MG ORAL TABLET 1 po qd TOLTERODINE TARTRATE 01978481397 Active Andre Barreto MD Active NITROGLYCERIN 0.4 MG SUBLINGUAL TABLET SUBLINGUAL 1 SL q5min PRN Chest pain up to 3 doses NITROGLYCERIN 69117446825 Active Andre Barreto MD Active TOPROL XL 50 MG ORAL TABLET EXTENDED RELEASE 24 HOUR 1 po qd METOPROLOL SUCCINATE 22390296844 Active Andre Barreto MD Active SYMBICORT 160-4.5 MCG/ACT INHALATION AEROSOL 2 puff BID BUDESONIDE-FORMOTEROL FUMARATE 63305896967 Active Cayla VERA Active FLUOXETINE HCL 40 MG ORAL CAPSULE 1 po qd FLUOXETINE HCL 95352646741 Active Andre Barreto MD Active BENICAR HCT 40-25 MG ORAL TABLET Take one by mouth daily OLMESARTAN MEDOXOMIL-HCTZ 50459909053 No Longer Active Andre Barreto MD Active LOSARTAN POTASSIUM-HCTZ 100-25 MG ORAL TABLET 1 po qd LOSARTAN POTASSIUM-HCTZ 35861601960 Active Andre Barreto MD Active BETAMETHASONE DIPROPIONATE 0.05 % EXTERNAL OINTMENT Apply to affected areas BID for up to 2 weeks BETAMETHASONE DIPROPIONATE 89558948857 No Longer Active Andre Barreto MD Active ZOFRAN 4 MG ORAL TABLET 1 po q6hr PRN Nausea ONDANSETRON HCL 14082513111 No Longer Active Andre Barreto MD Active CIPRO 500 MG ORAL TABLET 1 tablet by mouth twice daily CIPROFLOXACIN HCL 98485420484 No Longer Active Andre Barreto MD Active SYMBICORT 160-4.5 MCG/ACT INHALATION AEROSOL 2 puffs inhaled bid BUDESONIDE-FORMOTEROL FUMARATE 08184966542 No Longer Active Andre Barreto MD Active DICLOFENAC SODIUM 75 MG ORAL TABLET DELAYED RELEASE 1 tablet by mouth twice daily DICLOFENAC SODIUM 43923745001 No Longer Active Andre Barreto MD Active PROZAC 40 MG ORAL CAPSULE 1 cap by mouth at bedtime FLUOXETINE HCL 38240910064 No Longer Active Andre Barreto MD Active HYDROCODONE-ACETAMINOPHEN 5-325 MG ORAL TABLET 1 po q 6hr PRN Pain HYDROCODONE-ACETAMINOPHEN 09642896962 No Longer Active Andre Barreto MD Active TRAMADOL HCL 50 MG ORAL TABLET 2 po q 6 hrs prn TRAMADOL HCL 64120560841 Active Andre Barreto MD Active HYDROCODONE-ACETAMINOPHEN 5-325 MG ORAL TABLET 1 po q 6hr PRN Pain HYDROCODONE-ACETAMINOPHEN 5-325 MG ORAL TABLET 044805 HYDROCODONE- ACETAMINOPHEN Inactive PROZAC 40 MG ORAL CAPSULE 1 cap by mouth at bedtime PROZAC 40 MG ORAL CAPSULE 654471 FLUOXETINE HCL Inactive DICLOFENAC SODIUM 75 MG ORAL TABLET DELAYED RELEASE 1 tablet by mouth twice daily DICLOFENAC SODIUM 75 MG ORAL TABLET DELAYED RELEASE 381292 DICLOFENAC SODIUM Inactive SYMBICORT 160-4.5 MCG/ACT INHALATION AEROSOL 2 puffs inhaled bid SYMBICORT 160-4.5 MCG/ACT INHALATION AEROSOL BUDESONIDE-FORMOTEROL FUMARATE Inactive ZOFRAN 4 MG ORAL TABLET 1 po q6hr PRN Nausea ZOFRAN 4 MG ORAL TABLET 429730 ONDANSETRON HCL Inactive BETAMETHASONE DIPROPIONATE 0.05 % EXTERNAL OINTMENT Apply to affected areas BID for up to 2 weeks BETAMETHASONE DIPROPIONATE 0.05 % EXTERNAL OINTMENT 726858 BETAMETHASONE DIPROPIONATE Inactive BENICAR HCT 40-25 MG ORAL TABLET Take one by mouth daily BENICAR HCT 40-25 MG ORAL TABLET 659308 OLMESARTAN MEDOXOMIL-HCTZ Inactive ATORVASTATIN CALCIUM 80 MG ORAL TABLET 1 po qHS ATORVASTATIN CALCIUM 80 MG ORAL TABLET 407982 ATORVASTATIN CALCIUM Inactive PREDNISONE 20 MG ORAL TABLET 2 daily for 3 days then 1 daily for 3 days 03/27 PREDNISONE 20 MG ORAL TABLET 329741 PREDNISONE Inactive ZITHROMAX Z-NEVAEH 250 MG ORAL TABLET 2 today and then 1 daily for 4 days 03/27 ZITHROMAX Z-NEVAEH 250 MG ORAL TABLET 380297 AZITHROMYCIN Inactive BENZONATATE 200 MG ORAL CAPSULE 1 three times a day as needed for cough 03/27 BENZONATATE 200 MG ORAL CAPSULE 233409 BENZONATATE Inactive BACTRIM DS 800-160 MG ORAL TABLET 1 tab by mouth twice daily 2017 BACTRIM DS 800-160 MG ORAL TABLET 276444 TRIMETHOPRIM- SULFAMETHOXAZOLE Inactive CIPRO 500 MG ORAL TABLET 1 tablet by mouth twice daily CIPRO 500 MG ORAL TABLET 805763 CIPROFLOXACIN HCL Inactive CEFDINIR 300 MG ORAL CAPSULE by mouth twice a day CEFDINIR 300 MG ORAL CAPSULE 758156 CEFDINIR Inactive Advance Directives Directive Description Start [...] 6.2 % 4.3-6.0 cholesterol, serum 229 mg/dL 764-703 8833/07/24 triglyceride, serum, fasting 106 mg/dL 30-200 HDL cholesterol, serum 60 mg/dL 32-60 LDL cholesterol, serum 148 mg/dL 0-130 sodium, serum 139 mmol/L 369-563 8145/07/24 carbon dioxide, venous blood 34.8 mmol/L [...] Panel - Chemistry cholesterol, serum 275 mg/dL 172-025 2338/11/07 triglyceride, serum, fasting 166 mg/dL 30-200 HDL cholesterol, serum 62 mg/dL 32-60 LDL cholesterol, serum 180 mg/dL 0-130 sodium, serum 141 mmol/L 446-721 2684/11/07 carbon dioxide, venous blood 26.3 mmol/L 21.0-32.0 [...] 0-19 Encounters Code Encounter Date Provider Facility CPT-75499 Level 3 Est. Patient 14:06:16 CDT Andre Barreto MD [facility] CPT-36887 Level 3 Est. Patient 09:16:36 CDT David King [facility] CPT-14347 Level 3 Est. Patient 09:24:01 RACKMAN David King [facility] CPT-78108 Level 3 Est. Patient 13:01:07 RACKMAN Solitario Howe MD [facility] CPT-44067 Level 4 Est. Patient 10:26:48 RACKMAN Andre Barreto MD [facility] CPT-32205 Level 4 Est. Patient 09:45:06 CDT Andre Barreto MD [facility] CPT-19703 Level 4 Est. Patient 11:53:39 RACKMAN Andre Barreto MD [facility] CPT-17995 Level 4 Est. Patient 14:21:31 CDT Andre Barreto MD [facility] CPT-73349 Level 4 Est. Patient 15:24:17 CDT Andre Barreto MD [facility] CPT-03475 Level 3 Est. Patient 10:36:40 CDT Andre Barreto MD [facility] CPT-90649 Level 4 Est. Patient 11:27:43 CDT Andre Barreto MD [facility] CPT-00363 Level 3 Est. Patient 10:57:31 RACKMAN Andre Barreto MD [facility] CPT-04248 Level 3 Est. Patient 13:53:13 RACKMAN Andre Barreto MD [facility] CPT-54762 Level 3 Est. Patient 09:16:12 CDT Andre Barreto MD [facility] CPT-78645 Level 3 Est. Patient 14:50:35 CDT Andre Barreto MD [facility] Procedures Code Procedure Name Date Entry Date Standard Description CPT-13830 Sono pelvis coley bladder only - XRAY USE ONLY 15:07:39 CDT CPT-63285 First Vx - Ix admin for Medicare patients 13:56:44 RACKMAN CPT-07477 Zostavax Subcutaneous Solution Reconstituted 41572 UNT/0.65ML 12/22 13:56:44 RACKMAN CPT-G0009 Administration of Pneumococcal Vaccine 10:12:50 CDT CPT-96892 Pneumovax 23 Injection Injectable 25 MCG/0.5ML 10:12:50 CDT CPT-G0439 Subsequent Annual Wellness Exam 09:49:25 CDT CPT-48308 First Vx - Ix admin for Medicare patients 17:55:11 RACKMAN CPT-62157 Fluzone High-Dose Intramuscular Suspension 17:55:11 RACKMAN CPT-27779 Venipuncture Draw Fee 14:11:36 CDT CPT-29123 Lipid - LAB USE ONLY 14:11:36 CDT CPT-50784 CMP - LAB USE ONLY 14:11:36 CDT CPT-G0438 Initial Annual Wellness Exam 13:29:06 CDT CPT-G0009 Administration of Pneumococcal Vaccine 13:26:57 CDT CPT-88503 Prevnar 13 Intramuscular Suspension 13:26:56 CDT 08/19 CPT-57063 Bone Density - XRAY USE ONLY 09:30:16 CDT CPT-Cryo Cryotherapy 08:59:26 RACKMAN CPT-Cryo Cryotherapy 08:46:02 CDT CPT-56686 Chest 2V Frontal and Lat 14:02:13 RACKMAN
--- OUTSIDE RECORDS SUMMARY | 2018-03-16 20:53 | XMS REPORT | Clinical Summary ---
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, supplemental oxygen Osteopenia [...] ORAL TABS 1 po qd TOLTERODINE TARTRATE 67913394454 Active Andre Barreto MD Active NITROGLYCERIN 0.4 MG SL SUBL 1 SL q5min PRN Chest pain up to 3 doses NITROGLYCERIN 90978712949 Active Andre Barreto MD Active TOPROL XL 50 MG ORAL [id number] 1 po qd METOPROLOL SUCCINATE 84744669728 Active Andre Barreto MD Active PLAVIX 75 MG TABS 1 po qd CLOPIDOGREL BISULFATE 35617362587 Active Andre Barreto MD Active LASIX 20 MG TAB 1 po qd PRN Edema FUROSEMIDE 91855177315 Bar Barreto MD Active ATORVASTATIN CALCIUM 80 MG TABS 1 po qHS ATORVASTATIN CALCIUM 97495762821 Active Andre Barreto MD Active SYMBICORT 160-4.5 MCG/ACT AERO 2 puff BID BUDESONIDE- FORMOTEROL FUMARATE 00499571074 Active Andre Barreto MD Active PROAIR HFA 108 (90 BASE) MCG/ACT AERS 2 puffs four times a day as needed 2015 ALBUTEROL SULFATE 29755582899 Active Andre Barreto MD Active FLUOXETINE HCL 40 MG ORAL CAPS 1 po qd FLUOXETINE HCL 96764315366 Active Andre Barreto MD Active BENICAR HCT 40-25 MG TABS Take one by mouth daily OLMESARTAN MEDOXOMIL-HCTZ 96230033595 No Longer Active Andre Barreto MD Active LOSARTAN POTASSIUM-HCTZ 100-25 MG TABS 1 po qd LOSARTAN POTASSIUM-HCTZ 68410977142 Active Andre Barreto MD Active BETAMETHASONE DIPROPIONATE 0.05 % OINT Apply to affected areas BID for up to 2 weeks BETAMETHASONE DIPROPIONATE 37213648231 No Longer Active Andre Barreto MD Active ZOFRAN 4 MG TABS 1 po q6hr PRN Nausea ONDANSETRON HCL 31514614076 No Longer Active Andre Barreto MD Active CIPRO 500 MG TAB 1 tablet by mouth twice daily CIPROFLOXACIN HCL 95145492238 No Longer Active Andre Barreto MD Active SYMBICORT 160-4.5 MCG/ACT AERO 2 puffs inhaled bid BUDESONIDE- FORMOTEROL FUMARATE 05332543798 No Longer Active Andre Barreto MD Active DICLOFENAC SODIUM 75 MG TBEC 1 tablet by mouth twice daily DICLOFENAC SODIUM 00849241821 No Longer Active Andre Barreto MD Active PROZAC 40 MG CAPS 1 cap by mouth at bedtime FLUOXETINE HCL 52501129272 No Longer Active Andre Barreto MD Active HYDROCODONE-ACETAMINOPHEN 5-325 MG TABS 1 po q 6hr PRN Pain HYDROCODONE-ACETAMINOPHEN 67469663278 No Longer Active Andre Barreto MD Active TRAMADOL HCL 50 MG TABS 2 po q 6 hrs prn TRAMADOL HCL 60126181743 Active Andre Barreto MD Active AMBIEN 5 MG TABS 1 po a hs prn ZOLPIDEM TARTRATE 00553340951 Active Andre Barreto MD Active HYDROCODONE-ACETAMINOPHEN 5-325 MG TABS 1 po q 6hr PRN Pain HYDROCODONE-ACETAMINOPHEN 5-325 MG TABS 387723 HYDROCODONE-ACETAMINOPHEN Inactive PROZAC 40 MG CAPS 1 cap by mouth at bedtime PROZAC 40 MG CAPS 779538 FLUOXETINE HCL Inactive DICLOFENAC SODIUM 75 MG TBEC 1 tablet by mouth twice daily DICLOFENAC SODIUM 75 MG TBEC 462492 DICLOFENAC SODIUM Inactive SYMBICORT 160-4.5 MCG/ACT AERO 2 puffs inhaled bid SYMBICORT 160-4.5 MCG/ACT AERO BUDESONIDE-FORMOTEROL FUMARATE Inactive ZOFRAN 4 MG TABS 1 po q6hr PRN Nausea ZOFRAN 4 MG TABS 076456 ONDANSETRON HCL Inactive BETAMETHASONE DIPROPIONATE 0.05 % OINT Apply to affected areas BID for up to 2 weeks BETAMETHASONE DIPROPIONATE 0.05 % OINT 611774 BETAMETHASONE DIPROPIONATE Inactive BENICAR HCT 40-25 MG TABS Take one by mouth daily BENICAR HCT 40-25 MG TABS 335348 OLMESARTAN MEDOXOMIL-HCTZ Inactive CIPRO 500 MG TAB 1 tablet by mouth twice daily CIPRO 500 MG TAB 438435 CIPROFLOXACIN HCL Inactive Advance Directives Directive Description [...] ... - Chemistry sodium, serum 140 mmol/L 194-275 0740/06/28 carbon dioxide, venous blood 32.4 mmol/L 21.0-32.0 potassium, serum 4.0 mmol/L 3.5-5.2 chloride, serum 101 mmol/L 98-107 blood glucose 108 mg/dL 65-110 urea nitrogen, blood 20 mg/dL 7-18 creatinine, serum 0.98 mg/dL 0.55-1.30 alanine aminotransferase (SGPT), serum 44 U/L 12-78 aspartate aminotransferase (SGOT), serum 27 U/L 15-37 calcium, serum 9.4 mg/dL 8.5-10.1 bilirubin, serum, total 0.30 mg/dL 0.00-1.00 cholesterol, serum 264 mg/dL 501-423 8154/06/28 triglyceride, serum, fasting 146 mg/dL 30-200 HDL [...] Panel - Chemistry sodium, serum 143 mmol/L 474-299 3600/09/27 carbon dioxide, venous blood 30.1 mmol/L 21.0-32.0 potassium, serum 3.9 mmol/L 3.5-5.2 chloride, serum 107 mmol/L 98-107 blood glucose 114 mg/dL 65-110 urea nitrogen, blood 14 mg/dL 7-18 creatinine, serum 0.79 mg/dL 0.55-1.30 alanine aminotransferase (SGPT), serum 44 U/L 12-78 aspartate aminotransferase (SGOT), serum 25 U/L 15-37 calcium, serum 8.5 mg/dL 8.5-10.1 bilirubin, serum, total 0.30 mg/dL 0.00-1.00 cholesterol, serum 152 mg/dL 267-425 9159/09/27 triglyceride, serum, fasting 85 mg/dL 30-200 HDL cholesterol, serum 59 mg/dL 32-96 LDL cholesterol, serum 76 mg/dL 0-130 Encounters Code Encounter Date Provider Facility CPT-65868 Level 4 Est. Patient 11:53:39 MEDICAL OFFICE REPRESENTATIVE Andre Barreto MD [facility] CPT-24379 Level 4 Est. Patient 14:21:31 CDT Andre Barreto MD [facility] CPT-95758 Level 4 Est. Patient 15:24:17 CDT Andre Barreto MD [facility] CPT-57585 Level 3 Est. Patient 10:36:40 CDT Andre Barreto MD [facility] CPT-17086 Level 4 Est. Patient 11:27:43 CDT Andre Barreto MD [facility] CPT-68843 Level 3 Est. Patient 10:57:31 MEDICAL OFFICE REPRESENTATIVE Andre Barreto MD [facility] CPT-82791 Level 3 Est. Patient 13:53:13 MEDICAL OFFICE REPRESENTATIVE Andre Barreto MD [facility] CPT-33450 Level 3 Est. Patient 09:16:12 CDT Andre Barreto MD [facility] CPT-70865 Level 3 Est. Patient 14:50:35 CDT Andre Barreto MD [facility] Procedures Code Procedure Name Date Entry Date Standard Description CPT-41670 First Vx - Ix admin for Medicare patients 17:55:11 MEDICAL OFFICE REPRESENTATIVE CPT-11808 Fluzone High-Dose Intramuscular Suspension 17:55:11 MEDICAL OFFICE REPRESENTATIVE CPT-08783 Venipuncture Draw Fee 14:11:36 CDT CPT-35877 Lipid - LAB USE ONLY 14:11:36 CDT CPT-95823 CMP - LAB USE ONLY 14:11:36 CDT CPT-G0438 Initial Annual Wellness Exam 13:29:06 CDT CPT-G0009 Administration of Pneumococcal Vaccine 13:26:57 CDT CPT-18951 Prevnar 13 Intramuscular Suspension 13:26:56 CDT 08/19 CPT-27573 Bone Density - XRAY USE ONLY 09:30:16 CDT CPT-Cryo Cryotherapy 08:59:26 MEDICAL OFFICE REPRESENTATIVE CPT-Cryo Cryotherapy 08:46:02 CDT CPT-23900 Chest 2V Frontal and Lat 14:02:13 MEDICAL OFFICE REPRESENTATIVE
--- OUTSIDE RECORDS SUMMARY | 2018-03-16 20:54 | XMS REPORT | Clinical Summary ---
Author Author Admin, EDUARDO Organization [employer] Address Unknown Phone Unavailable Allergies, Adverse Reactions, [...] MG TABS 1 po qHS ATORVASTATIN CALCIUM 36361283152 Active Andre Barreto MD Active SYMBICORT 160-4.5 MCG/ACT AERO 2 puff BID BUDESONIDE- FORMOTEROL FUMARATE 02496007515 Active Andre Barreto MD Active PROAIR HFA 108 (90 BASE) MCG/ACT AERS 2 puffs four times a day as needed 2015 ALBUTEROL SULFATE 79027547722 Active Andre Barreto MD Active FLUOXETINE HCL 40 MG ORAL CAPS 1 po qd FLUOXETINE HCL 87960710188 Active Andre Barreto MD Active DETROL 2 MG ORAL TABS one tab daily TOLTERODINE TARTRATE 98699637663 Active Andre Barreto MD Active BENICAR HCT 40-25 MG TABS Take one by mouth daily OLMESARTAN MEDOXOMIL-HCTZ 27877664365 No Longer Active Andre Barreto MD Active LOSARTAN POTASSIUM-HCTZ 100-25 MG TABS 1 po qd LOSARTAN POTASSIUM-HCTZ 39180590204 Active Andre Barreto MD Active BETAMETHASONE DIPROPIONATE 0.05 % OINT Apply to affected areas BID for up to 2 weeks BETAMETHASONE DIPROPIONATE 42511480285 No Longer Active Andre Barreto MD Active ZOFRAN 4 MG TABS 1 po q6hr PRN Nausea ONDANSETRON HCL 99846748832 No Longer Active Andre Barreto MD Active CIPRO 500 MG TAB 1 tablet by mouth twice daily CIPROFLOXACIN HCL 88588301052 No Longer Active Andre Barreto MD Active SYMBICORT 160-4.5 MCG/ACT AERO 2 puffs inhaled bid BUDESONIDE- FORMOTEROL FUMARATE 98864268696 No Longer Active Andre Barreto MD Active LASIX 20 MG TAB 1 tablet by mouth daily PRN FUROSEMIDE 75663138405 Active Andre Barreto MD Active TOPROL XL 25 MG CO48Z-UOM Take one by mouth daily METOPROLOL SUCCINATE 26542125585 Active Andre Barreto MD Active PLAVIX 75 MG TABS 1 tablet by mouth daily CLOPIDOGREL BISULFATE 69489284603 Active Andre Barreto MD Active NITROSTAT 0.4 MG SL TAB disolve 1 under tongue repeat if needed NITROGLYCERIN 77378699010 Active Andre Barreto MD Active DICLOFENAC SODIUM 75 MG TBEC 1 tablet by mouth twice daily DICLOFENAC SODIUM 16648912427 No Longer Active Andre Barreto MD Active PROZAC 40 MG CAPS 1 cap by mouth at bedtime FLUOXETINE HCL 57792054021 No Longer Active Andre Barreto MD Active HYDROCODONE-ACETAMINOPHEN 5-325 MG TABS 1 po q 6hr PRN Pain HYDROCODONE-ACETAMINOPHEN 74292902145 No Longer Active Andre Barreto MD Active TRAMADOL HCL 50 MG TABS 2 po q 6 hrs prn TRAMADOL HCL 68001110732 Active David King APRN Active AMBIEN 5 MG TABS 1 po a hs prn ZOLPIDEM TARTRATE 26685643123 Active Andre Barreto MD Active HYDROCODONE-ACETAMINOPHEN 5-325 MG TABS 1 po q 6hr PRN Pain HYDROCODONE-ACETAMINOPHEN 5-325 MG TABS 585388 HYDROCODONE-ACETAMINOPHEN Inactive PROZAC 40 MG CAPS 1 cap by mouth at bedtime PROZAC 40 MG CAPS 231933 FLUOXETINE HCL Inactive DICLOFENAC SODIUM 75 MG TBEC 1 tablet by mouth twice daily DICLOFENAC SODIUM 75 MG TBEC 104122 DICLOFENAC SODIUM Inactive SYMBICORT 160-4.5 MCG/ACT AERO 2 puffs inhaled bid SYMBICORT 160-4.5 MCG/ACT AERO BUDESONIDE-FORMOTEROL FUMARATE Inactive ZOFRAN 4 MG TABS 1 po q6hr PRN Nausea ZOFRAN 4 MG TABS 488032 ONDANSETRON HCL Inactive BETAMETHASONE DIPROPIONATE 0.05 % OINT Apply to affected areas BID for up to 2 weeks BETAMETHASONE DIPROPIONATE 0.05 % OINT 358765 BETAMETHASONE DIPROPIONATE Inactive BENICAR HCT 40-25 MG TABS Take one by mouth daily BENICAR HCT 40-25 MG TABS OLMESARTAN MEDOXOMIL-HCTZ Inactive CIPRO 500 MG TAB 1 tablet by mouth twice daily CIPRO 500 MG TAB 758886 CIPROFLOXACIN HCL Inactive Advance Directives Directive Description [...] ... - Chemistry sodium, serum 140 mmol/L 823-518 2313/06/28 carbon dioxide, venous blood 32.4 mmol/L 21.0-32.0 potassium, serum 4.0 mmol/L 3.5-5.2 chloride, serum 101 mmol/L 98-107 blood glucose 108 mg/dL 65-110 urea nitrogen, blood 20 mg/dL 7-18 creatinine, serum 0.98 mg/dL 0.55-1.30 alanine aminotransferase (SGPT), serum 44 U/L 12-78 aspartate aminotransferase (SGOT), serum 27 U/L 15-37 calcium, serum 9.4 mg/dL 8.5-10.1 bilirubin, serum, total 0.30 mg/dL 0.00-1.00 cholesterol, serum 264 mg/dL 885-039 1803/06/28 triglyceride, serum, fasting 146 mg/dL 30-200 HDL [...] 0-19 Encounters Code Encounter Date Provider Facility CPT-13068 Level 4 Est. Patient 15:24:17 CDT Andre Barreto MD [facility] CPT-88586 Level 3 Est. Patient 10:36:40 CDT Andre Barreto MD [facility] CPT-12009 Level 4 Est. Patient 11:27:43 CDT Andre Barreto MD [facility] CPT-87734 Level 3 Est. Patient 10:57:31 FOOD AND BEVERAGE DIRECTOR Andre Barreto MD [facility] CPT-84436 Level 3 Est. Patient 13:53:13 FOOD AND BEVERAGE DIRECTOR Andre Barreto MD [facility] CPT-24087 Level 3 Est. Patient 09:16:12 CDT Andre Barreto MD [facility] CPT-56691 Level 3 Est. Patient 14:50:35 CDT Andre Barreto MD [facility] Procedures Code Procedure Name Date Entry Date Standard Description CPT-G0009 Administration of Pneumococcal Vaccine 13:26:57 CDT CPT-69343 Prevnar 13 Intramuscular Suspension 13:26:56 CDT 08/19 CPT-94486 Bone Density - XRAY USE ONLY 09:30:16 CDT CPT-Cryo Cryotherapy 08:59:26 FOOD AND BEVERAGE DIRECTOR CPT-Cryo Cryotherapy 08:46:02 CDT CPT-19563 Chest 2V Frontal and Lat 14:02:13 FOOD AND BEVERAGE DIRECTOR
--- OUTSIDE RECORDS SUMMARY | 2018-03-16 20:55 | XMS REPORT | Clinical Summary ---
Author Author Admin, EDUARDO Organization [employer] Address Unknown Phone Unavailable Allergies, Adverse Reactions, Alerts Allergy Name Reaction Description Start Date Severity Status Provider SULFA Mild No Longer Active Jillina Frazell SALVAGER PENICILLIN Mild No Longer Active Jillina Frazell SALVAGER ZINC Mild No Longer Active Jillina Frazell SALVAGER SULFA Critical No Longer Active Marcelle Yesi [...] Coronary atherosclerosis of unspecified type of vessel, cowlitz or graft Obstructive sleep apnea 327.23 Active [...] airway pressure rx V46.2 Active Pushpa Hernandez SALVAGER Other dependence on machines, supplemental oxygen Osteopenia 733.90 Active Pushpa Hernandez APRN Disorder of bone and cartilage, unspecified Obstructive sleep apnea 327.23 Active Andre Barreto MD Obstructive sleep apnea (adult) (pediatric) Acute exacerbation of chronic bronchitis 491.22 Inactive Solitario Howe MD Obstructive chronic bronchitis with acute bronchitis Sinusitis 473.9 Active David King SALVAGER Unspecified sinusitis (chronic) Abscess, skin 682.9 Active [...] po QID x 7 days CLINDAMYCIN HCL 37531807277 Active Jillina Frazell SALVAGER Active BACTRIM DS 800-160 MG ORAL TABLET 1 tab by mouth twice daily 2017 TRIMETHOPRIM-SULFAMETHOXAZOLE 38116188537 No Longer Active Jillina Frazell SALVAGER Active BACTROBAN 2 % EXTERNAL OINTMENT Apply to affected area BID MUPIROCIN 70794293768 Active Jillina Frazell SALVAGER Active GUAIFENESIN DM 400-20 MG ORAL TABLET 1 pill by mouth twice daily, if needed for cough DEXTROMETHORPHAN-GUAIFENESIN 56998135692 Active Jillina Frazell SALVAGER Active CEFDINIR 300 MG ORAL CAPSULE by mouth twice a day CEFDINIR 44434827059 No Longer Active Jillina Frazell SALVAGER Active BENZONATATE 200 MG ORAL CAPSULE 1 three times a day as needed for cough 03/27 BENZONATATE 95073329981 No Longer Active Luna Prabhakar Active ZITHROMAX Z-NEVAEH 250 MG ORAL TABLET 2 today and then 1 daily for 4 days 03/27 AZITHROMYCIN 89774318666 No Longer Active Luna Prabhakar Active PREDNISONE 20 MG ORAL TABLET 2 daily for 3 days then 1 daily for 3 days 03/27 PREDNISONE 78077529284 No Longer Active Luna Prabhakar Active ATORVASTATIN CALCIUM 40 MG ORAL TABLET 1 po qHS ATORVASTATIN CALCIUM 54607670490 Active Marcelle VERA Active CLOPIDOGREL BISULFATE 75 MG ORAL TABLET 1 po qd CLOPIDOGREL BISULFATE 38273183592 Active Andre Barreto MD Active FUROSEMIDE 20 MG ORAL TABLET 1 po qd PRN Edema FUROSEMIDE 36924405613 Active Andre Barreto MD Active PROAIR HFA 108 (90 Base) MCG/ACT INHALATION AEROSOL SOLUTION 2 puffs q4hr PRN Shortness of air/Wheezing ALBUTEROL SULFATE 51589466463 Active Andre Barreto MD Active ATORVASTATIN CALCIUM 80 MG ORAL TABLET 1 po qHS ATORVASTATIN CALCIUM 22029563497 No Longer Active Andre Barreto MD Active AMBIEN 5 MG ORAL TABLET 1 po qHS PRN Insomnia ZOLPIDEM TARTRATE 79037043631 Active Andre Barreto MD Active DETROL 2 MG ORAL TABLET 1 po qd TOLTERODINE TARTRATE 17414419743 Active Andre Barreto MD Active NITROGLYCERIN 0.4 MG SUBLINGUAL TABLET SUBLINGUAL 1 SL q5min PRN Chest pain up to 3 doses NITROGLYCERIN 07352812448 Active Andre Barreto MD Active TOPROL XL 50 MG ORAL TABLET EXTENDED RELEASE 24 HOUR 1 po qd METOPROLOL SUCCINATE 95156436054 Active Andre Brareto MD Active SYMBICORT 160-4.5 MCG/ACT INHALATION AEROSOL 2 puff BID BUDESONIDE-FORMOTEROL FUMARATE 90782360139 Active Cayla Flanagan Isabella Active FLUOXETINE HCL 40 MG ORAL CAPSULE 1 po qd FLUOXETINE HCL 33856930606 Active Andre Barreto MD Active BENICAR HCT 40-25 MG ORAL TABLET Take one by mouth daily OLMESARTAN MEDOXOMIL-HCTZ 63615377421 No Longer Active Andre Barreto MD Active LOSARTAN POTASSIUM-HCTZ 100-25 MG ORAL TABLET 1 po qd LOSARTAN POTASSIUM-HCTZ 22439919287 Active Andre Barreto MD Active BETAMETHASONE DIPROPIONATE 0.05 % EXTERNAL OINTMENT Apply to affected areas BID for up to 2 weeks BETAMETHASONE DIPROPIONATE 39542129580 No Longer Active Andre Barreto MD Active ZOFRAN 4 MG ORAL TABLET 1 po q6hr PRN Nausea ONDANSETRON HCL 55473732571 No Longer Active Andre Barreto MD Active CIPRO 500 MG ORAL TABLET 1 tablet by mouth twice daily CIPROFLOXACIN HCL 47958134749 No Longer Active Andre Barreto MD Active SYMBICORT 160-4.5 MCG/ACT INHALATION AEROSOL 2 puffs inhaled bid BUDESONIDE-FORMOTEROL FUMARATE 39014332574 No Longer Active Andre Barreto MD Active DICLOFENAC SODIUM 75 MG ORAL TABLET DELAYED RELEASE 1 tablet by mouth twice daily DICLOFENAC SODIUM 14103379048 No Longer Active Andre Barreto MD Active PROZAC 40 MG ORAL CAPSULE 1 cap by mouth at bedtime FLUOXETINE HCL 03302782021 No Longer Active Andre Barreto MD Active HYDROCODONE-ACETAMINOPHEN 5-325 MG ORAL TABLET 1 po q 6hr PRN Pain HYDROCODONE-ACETAMINOPHEN 22694086913 No Longer Active Andre Barreto MD Active TRAMADOL HCL 50 MG ORAL TABLET 2 po q 6 hrs prn TRAMADOL HCL 53813277899 Active Andre Barreto MD Active HYDROCODONE-ACETAMINOPHEN 5-325 MG ORAL TABLET 1 po q 6hr PRN Pain HYDROCODONE-ACETAMINOPHEN 5-325 MG ORAL TABLET 244286 HYDROCODONE- ACETAMINOPHEN Inactive PROZAC 40 MG ORAL CAPSULE 1 cap by mouth at bedtime PROZAC 40 MG ORAL CAPSULE 338594 FLUOXETINE HCL Inactive DICLOFENAC SODIUM 75 MG ORAL TABLET DELAYED RELEASE 1 tablet by mouth twice daily DICLOFENAC SODIUM 75 MG ORAL TABLET DELAYED RELEASE 343450 DICLOFENAC SODIUM Inactive SYMBICORT 160-4.5 MCG/ACT INHALATION AEROSOL 2 puffs inhaled bid SYMBICORT 160-4.5 MCG/ACT INHALATION AEROSOL BUDESONIDE-FORMOTEROL FUMARATE Inactive ZOFRAN 4 MG ORAL TABLET 1 po q6hr PRN Nausea ZOFRAN 4 MG ORAL TABLET 270861 ONDANSETRON HCL Inactive BETAMETHASONE DIPROPIONATE 0.05 % EXTERNAL OINTMENT Apply to affected areas BID for up to 2 weeks BETAMETHASONE DIPROPIONATE 0.05 % EXTERNAL OINTMENT 922735 BETAMETHASONE DIPROPIONATE Inactive BENICAR HCT 40-25 MG ORAL TABLET Take one by mouth daily BENICAR HCT 40-25 MG ORAL TABLET 410650 OLMESARTAN MEDOXOMIL-HCTZ Inactive ATORVASTATIN CALCIUM 80 MG ORAL TABLET 1 po qHS ATORVASTATIN CALCIUM 80 MG ORAL TABLET 230545 ATORVASTATIN CALCIUM Inactive PREDNISONE 20 MG ORAL TABLET 2 daily for 3 days then 1 daily for 3 days 03/27 PREDNISONE 20 MG ORAL TABLET 212040 PREDNISONE Inactive ZITHROMAX Z-NEVAEH 250 MG ORAL TABLET 2 today and then 1 daily for 4 days 03/27 ZITHROMAX Z-NEVAEH 250 MG ORAL TABLET 586348 AZITHROMYCIN Inactive BENZONATATE 200 MG ORAL CAPSULE 1 three times a day as needed for cough 03/27 BENZONATATE 200 MG ORAL CAPSULE 644312 BENZONATATE Inactive BACTRIM DS 800-160 MG ORAL TABLET 1 tab by mouth twice daily 2017 BACTRIM DS 800-160 MG ORAL TABLET 713785 TRIMETHOPRIM- SULFAMETHOXAZOLE Inactive CIPRO 500 MG ORAL TABLET 1 tablet by mouth twice daily CIPRO 500 MG ORAL TABLET 234375 CIPROFLOXACIN HCL Inactive CEFDINIR 300 MG ORAL CAPSULE by mouth twice a day CEFDINIR 300 MG ORAL CAPSULE 153964 CEFDINIR Inactive Advance Directives Directive Description Start [...] 6.2 % 4.3-6.0 cholesterol, serum 229 mg/dL 503-454 0462/07/24 triglyceride, serum, fasting 106 mg/dL 30-200 HDL cholesterol, serum 60 mg/dL 32-60 LDL cholesterol, serum 148 mg/dL 0-130 sodium, serum 139 mmol/L 184-070 9644/07/24 carbon dioxide, venous blood 34.8 mmol/L 21.0-32.0 [...] Panel - Chemistry cholesterol, serum 275 mg/dL 273-493 5513/11/07 triglyceride, serum, fasting 166 mg/dL 30-200 HDL cholesterol, serum 62 mg/dL 32-60 LDL cholesterol, serum 180 mg/dL 0-130 sodium, serum 141 mmol/L 785-519 6110/11/07 carbon dioxide, venous blood 26.3 mmol/L 21.0-32.0 [...] 0-19 Encounters Code Encounter Date Provider Facility CPT-73935 Level 3 Est. Patient 14:06:16 CDT Andre Barreto MD [facility] CPT-16742 Level 3 Est. Patient 09:16:36 CDT David King [facility] CPT-31343 Level 3 Est. Patient 09:24:01 INTERNATIONAL EXCHANGE COORDINATOR David King [facility] CPT-93910 Level 3 Est. Patient 13:01:07 INTERNATIONAL EXCHANGE COORDINATOR Solitario Howe MD [facility] CPT-32311 Level 4 Est. Patient 10:26:48 INTERNATIONAL EXCHANGE COORDINATOR Andre Barreto MD [facility] CPT-80849 Level 4 Est. Patient 09:45:06 CDT Andre Barreto MD [facility] CPT-65001 Level 4 Est. Patient 11:53:39 INTERNATIONAL EXCHANGE COORDINATOR Andre Barreto MD [facility] CPT-37586 Level 4 Est. Patient 14:21:31 CDT Andre Barreto MD [facility] CPT-43007 Level 4 Est. Patient 15:24:17 CDT Andre Barreto MD [facility] CPT-58625 Level 3 Est. Patient 10:36:40 CDT Andre Barreto MD [facility] CPT-40281 Level 4 Est. Patient 11:27:43 CDT Andre Barreto MD [facility] CPT-24359 Level 3 Est. Patient 10:57:31 INTERNATIONAL EXCHANGE COORDINATOR Andre Barreto MD [facility] CPT-96657 Level 3 Est. Patient 13:53:13 INTERNATIONAL EXCHANGE COORDINATOR Andre Barreto MD [facility] CPT-67475 Level 3 Est. Patient 09:16:12 CDT Andre Barreto MD [facility] CPT-24870 Level 3 Est. Patient 14:50:35 CDT Andre Barreto MD [facility] Procedures Code Procedure Name Date Entry Date Standard Description CPT-45700 Sono pelvis coley bladder only - XRAY USE ONLY 15:07:39 CDT CPT-94856 First Vx - Ix admin for Medicare patients 13:56:44 INTERNATIONAL EXCHANGE COORDINATOR CPT-84907 Zostavax Subcutaneous Solution Reconstituted 33320 UNT/0.65ML 12/22 13:56:44 INTERNATIONAL EXCHANGE COORDINATOR CPT-G0009 Administration of Pneumococcal Vaccine 10:12:50 CDT CPT-97572 Pneumovax 23 Injection Injectable 25 MCG/0.5ML 10:12:50 CDT CPT-G0439 Subsequent Annual Wellness Exam 09:49:25 CDT CPT-35757 First Vx - Ix admin for Medicare patients 17:55:11 INTERNATIONAL EXCHANGE COORDINATOR CPT-13237 Fluzone High-Dose Intramuscular Suspension 17:55:11 INTERNATIONAL EXCHANGE COORDINATOR CPT-48462 Venipuncture Draw Fee 14:11:36 CDT CPT-95498 Lipid - LAB USE ONLY 14:11:36 CDT CPT-49233 CMP - LAB USE ONLY 14:11:36 CDT CPT-G0438 Initial Annual Wellness Exam 13:29:06 CDT CPT-G0009 Administration of Pneumococcal Vaccine 13:26:57 CDT CPT-70382 Prevnar 13 Intramuscular Suspension 13:26:56 CDT 08/19 CPT-72209 Bone Density - XRAY USE ONLY 09:30:16 CDT CPT-Cryo Cryotherapy 08:59:26 INTERNATIONAL EXCHANGE COORDINATOR CPT-Cryo Cryotherapy 08:46:02 CDT CPT-74404 Chest 2V Frontal and Lat 14:02:13 INTERNATIONAL EXCHANGE COORDINATOR
--- OUTSIDE RECORDS SUMMARY | 2018-03-16 20:55 | XMS REPORT | Clinical Summary ---
[...] eczema, hands ICD-705.81 Inactive Andre Barreto MD Fever ICD-780.60 Inactive Andre Barreto MD 05/23 Medication List Medication Instructions Start Date Stop Date Generic Name NDC Status Provider Patient Instruction ATORVASTATIN CALCIUM 80 MG TABS 1 po qHS ATORVASTATIN CALCIUM 91459725694 Active Andre Barreto MD Active SYMBICORT 160-4.5 MCG/ACT AERO 2 puff BID BUDESONIDE- FORMOTEROL FUMARATE 24808725041 Active Andre Barreto MD Active PROAIR HFA 108 (90 BASE) MCG/ACT AERS 2 puffs four times a day as needed 2015 ALBUTEROL SULFATE 16402933775 Active Andre Barreto MD Active FLUOXETINE HCL 40 MG ORAL CAPS 1 po qd FLUOXETINE HCL 51613412507 Active Andre Barreto MD Active DETROL 2 MG ORAL TABS one tab daily TOLTERODINE TARTRATE 55860277814 Active Andre Barreto MD Active BENICAR HCT 40-25 MG TABS Take one by mouth daily OLMESARTAN MEDOXOMIL-HCTZ 23994696203 No Longer Active Andre Barreto MD Active LOSARTAN POTASSIUM-HCTZ 100-25 MG TABS 1 po qd LOSARTAN POTASSIUM-HCTZ 38725284408 Active Andre Barreto MD Active BETAMETHASONE DIPROPIONATE 0.05 % OINT Apply to affected areas BID for up to 2 weeks BETAMETHASONE DIPROPIONATE 16527694975 No Longer Active Andre Barreto MD Active ZOFRAN 4 MG TABS 1 po q6hr PRN Nausea ONDANSETRON HCL 32299297220 No Longer Active Andre Barreto MD Active CIPRO 500 MG TAB 1 tablet by mouth twice daily CIPROFLOXACIN HCL 79765884434 No Longer Active Andre Barreto MD Active SYMBICORT 160-4.5 MCG/ACT AERO 2 puffs inhaled bid BUDESONIDE- FORMOTEROL FUMARATE 48670963493 No Longer Active Andre Barreto MD Active LASIX 20 MG TAB 1 tablet by mouth daily PRN FUROSEMIDE 18597383146 Active Andre Barreto MD Active TOPROL XL 25 MG [id number] Take one by mouth daily METOPROLOL SUCCINATE 80454904303 Active Andre Barreto MD Active PLAVIX 75 MG TABS 1 tablet by mouth daily CLOPIDOGREL BISULFATE 04520482995 Active Andre Barreto MD Active NITROSTAT 0.4 MG SL TAB disolve 1 under tongue repeat if needed NITROGLYCERIN 77852991547 Active Andre Barreto MD Active DICLOFENAC SODIUM 75 MG TBEC 1 tablet by mouth twice daily DICLOFENAC SODIUM 03017500935 No Longer Active Andre Barreto MD Active PROZAC 40 MG CAPS 1 cap by mouth at bedtime FLUOXETINE HCL 62001810199 No Longer Active Andre Barreto MD Active HYDROCODONE-ACETAMINOPHEN 5-325 MG TABS 1 po q 6hr PRN Pain HYDROCODONE-ACETAMINOPHEN 48344664621 No Longer Active Andre Barreto MD Active TRAMADOL HCL 50 MG TABS 2 po q 6 hrs prn TRAMADOL HCL 09982489215 Active David King FIRE 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 Active AMBIEN 5 MG TABS 1 po a hs prn ZOLPIDEM TARTRATE 19232969256 Active Andre Barreto MD Active HYDROCODONE-ACETAMINOPHEN 5-325 MG TABS 1 po q 6hr PRN Pain HYDROCODONE-ACETAMINOPHEN 5-325 MG TABS 885445 HYDROCODONE-ACETAMINOPHEN Inactive PROZAC 40 MG CAPS 1 cap by mouth at bedtime PROZAC 40 MG CAPS 848544 FLUOXETINE HCL Inactive DICLOFENAC SODIUM 75 MG TBEC 1 tablet by mouth twice daily DICLOFENAC SODIUM 75 MG TBEC 110022 DICLOFENAC SODIUM Inactive SYMBICORT 160-4.5 MCG/ACT AERO 2 puffs inhaled bid SYMBICORT 160-4.5 MCG/ACT AERO BUDESONIDE-FORMOTEROL FUMARATE Inactive ZOFRAN 4 MG TABS 1 po q6hr PRN Nausea ZOFRAN 4 MG TABS 779905 ONDANSETRON HCL Inactive BETAMETHASONE DIPROPIONATE 0.05 % OINT Apply to affected areas BID for up to 2 weeks BETAMETHASONE DIPROPIONATE 0.05 % OINT 210293 BETAMETHASONE DIPROPIONATE Inactive BENICAR HCT 40-25 MG TABS Take one by mouth daily BENICAR HCT 40-25 MG TABS OLMESARTAN MEDOXOMIL-HCTZ Inactive CIPRO 500 MG TAB 1 tablet by mouth twice daily CIPRO 500 MG TAB 397142 CIPROFLOXACIN HCL Inactive Advance Directives Directive Description [...] ... - Chemistry sodium, serum 140 mmol/L 825-317 3209/06/28 carbon dioxide, venous blood 32.4 mmol/L 21.0-32.0 potassium, serum 4.0 mmol/L 3.5-5.2 chloride, serum 101 mmol/L 98-107 blood glucose 108 mg/dL 65-110 urea nitrogen, blood 20 mg/dL 7-18 creatinine, serum 0.98 mg/dL 0.55-1.30 alanine aminotransferase (SGPT), serum 44 U/L 12-78 aspartate aminotransferase (SGOT), serum 27 U/L 15-37 calcium, serum 9.4 mg/dL 8.5-10.1 bilirubin, serum, total 0.30 mg/dL 0.00-1.00 cholesterol, serum 264 mg/dL 430-658 9375/06/28 triglyceride, serum, fasting 146 mg/dL 30-200 HDL [...] 0-19 Encounters Code Encounter Date Provider Facility CPT-89544 Level 4 Est. Patient 15:24:17 CDT Andre Barreto MD [facility] CPT-04435 Level 3 Est. Patient 10:36:40 CDT Andre Barreto MD [facility] CPT-45712 Level 4 Est. Patient 11:27:43 CDT Andre Barreto MD [facility] CPT-41608 Level 3 Est. Patient 10:57:31 GPS FIELD DATA COLLECTOR Andre Barreto MD [facility] CPT-33483 Level 3 Est. Patient 13:53:13 GPS FIELD DATA COLLECTOR Andre Barreto MD [facility] CPT-17108 Level 3 Est. Patient 09:16:12 CDT Andre Barreto MD [facility] CPT-49469 Level 3 Est. Patient 14:50:35 CDT Andre Barreto MD [facility] Procedures Code Procedure Name Date Entry Date Standard Description CPT-G0438 Initial Annual Wellness Exam 13:29:06 CDT CPT-G0009 Administration of Pneumococcal Vaccine 13:26:57 CDT CPT-16868 Prevnar 13 Intramuscular Suspension 13:26:56 CDT 08/19 CPT-88056 Bone Density - XRAY USE ONLY 09:30:16 CDT CPT-Cryo Cryotherapy 08:59:26 GPS FIELD DATA COLLECTOR CPT-Cryo Cryotherapy 08:46:02 CDT CPT-26150 Chest 2V Frontal and Lat 14:02:13 GPS FIELD DATA COLLECTOR
--- OUTSIDE RECORDS SUMMARY | 2018-03-16 20:56 | XMS REPORT | Clinical Summary ---
Author Author Admin, E Organization [facility] Address Unknown Phone Unavailable Allergies, Adverse [...] MD 05/23 Dyshidrotic eczema, hands ICD-705.81 Inactive nAdre Barreto [...] Patient Instruction TOPROL XL 50 MG ORAL [id number] 1 po qd METOPROLOL SUCCINATE 19697931161 Active Andre Barreto MD Active PLAVIX 75 MG TABS 1 po qd CLOPIDOGREL BISULFATE 11268530739 Active Andre Barreto MD Active LASIX 20 MG TAB 1 po qd PRN Edema FUROSEMIDE 46434608246 Active Andre Barreto MD Active ATORVASTATIN CALCIUM 80 MG TABS 1 po qHS ATORVASTATIN CALCIUM 30092671711 Active Andre Barreto MD Active SYMBICORT 160-4.5 MCG/ACT AERO 2 puff BID BUDESONIDE- FORMOTEROL FUMARATE 76064599906 Active Andre Barreto MD Active PROAIR HFA 108 (90 BASE) MCG/ACT AERS 2 puffs four times a day as needed 2015 ALBUTEROL SULFATE 59272019345 Active Andre Barreto MD Active FLUOXETINE HCL 40 MG ORAL CAPS 1 po qd FLUOXETINE HCL 76157500720 Active Andre Barreto MD Active DETROL 2 MG ORAL TABS one tab daily TOLTERODINE TARTRATE 18842551544 Active Andre Barreto MD Active BENICAR HCT 40-25 MG TABS Take one by mouth daily OLMESARTAN MEDOXOMIL-HCTZ 73240111385 No Longer Active Andre Barreto MD Active LOSARTAN POTASSIUM-HCTZ 100-25 MG TABS 1 po qd LOSARTAN POTASSIUM-HCTZ 33769979111 Active Andre Barreto MD Active BETAMETHASONE DIPROPIONATE 0.05 % OINT Apply to affected areas BID for up to 2 weeks BETAMETHASONE DIPROPIONATE 62392494767 No Longer Active Andre Barreto MD Active ZOFRAN 4 MG TABS 1 po q6hr PRN Nausea ONDANSETRON HCL 45256393248 No Longer Active Andre Barreto MD Active CIPRO 500 MG TAB 1 tablet by mouth twice daily CIPROFLOXACIN HCL 31203131917 No Longer Active nAdre Barreto MD Active SYMBICORT 160-4.5 MCG/ACT AERO 2 puffs inhaled bid BUDESONIDE- FORMOTEROL FUMARATE 15864707101 No Longer Active Andre Barreto MD Active NITROSTAT 0.4 MG SL TAB disolve 1 under tongue repeat if needed NITROGLYCERIN 70206852315 Active Andre Barreto MD Active DICLOFENAC SODIUM 75 MG TBEC 1 tablet by mouth twice daily DICLOFENAC SODIUM 54727650208 No Longer Active Andre Barreto MD Active PROZAC 40 MG CAPS 1 cap by mouth at bedtime FLUOXETINE HCL 81671022229 No Longer Active Andre Barreto MD Active HYDROCODONE-ACETAMINOPHEN 5-325 MG TABS 1 po q 6hr PRN Pain HYDROCODONE-ACETAMINOPHEN 00805226547 No Longer Active Andre Barreto MD Active TRAMADOL HCL 50 MG TABS 2 po q 6 hrs prn TRAMADOL HCL 54500493775 Active Andre Barreto MD Active AMBIEN 5 MG TABS 1 po a hs prn ZOLPIDEM TARTRATE 44512966229 Active Andre Barreto MD Active HYDROCODONE-ACETAMINOPHEN 5-325 MG TABS 1 po q 6hr PRN Pain HYDROCODONE-ACETAMINOPHEN 5-325 MG TABS 507446 HYDROCODONE-ACETAMINOPHEN Inactive PROZAC 40 MG CAPS 1 cap by mouth at bedtime PROZAC 40 MG CAPS 336068 FLUOXETINE HCL Inactive DICLOFENAC SODIUM 75 MG TBEC 1 tablet by mouth twice daily DICLOFENAC SODIUM 75 MG TBEC 313509 DICLOFENAC SODIUM Inactive SYMBICORT 160-4.5 MCG/ACT AERO 2 puffs inhaled bid SYMBICORT 160-4.5 MCG/ACT AERO BUDESONIDE-FORMOTEROL FUMARATE Inactive ZOFRAN 4 MG TABS 1 po q6hr PRN Nausea ZOFRAN 4 MG TABS 021370 ONDANSETRON HCL Inactive BETAMETHASONE DIPROPIONATE 0.05 % OINT Apply to affected areas BID for up to 2 weeks BETAMETHASONE DIPROPIONATE 0.05 % OINT 633043 BETAMETHASONE DIPROPIONATE Inactive BENICAR HCT 40-25 MG TABS Take one by mouth daily BENICAR HCT 40-25 MG TABS OLMESARTAN MEDOXOMIL-HCTZ Inactive CIPRO 500 MG TAB 1 tablet by mouth twice daily CIPRO 500 MG TAB 348890 CIPROFLOXACIN HCL Inactive Advance Directives Directive Description [...] ... - Chemistry sodium, serum 140 mmol/L 080-220 4273/06/28 carbon dioxide, venous blood 32.4 mmol/L 21.0-32.0 potassium, serum 4.0 mmol/L 3.5-5.2 chloride, serum 101 mmol/L 98-107 blood glucose 108 mg/dL 65-110 urea nitrogen, blood 20 mg/dL 7-18 creatinine, serum 0.98 mg/dL 0.55-1.30 alanine aminotransferase (SGPT), serum 44 U/L 12-78 aspartate aminotransferase (SGOT), serum 27 U/L 15-37 calcium, serum 9.4 mg/dL 8.5-10.1 bilirubin, serum, total 0.30 mg/dL 0.00-1.00 cholesterol, serum 264 mg/dL 473-912 9097/06/28 triglyceride, serum, fasting 146 mg/dL 30-200 HDL cholesterol, serum 70 mg/dL 32-96 LDL cholesterol, serum 165 mg/dL 0-130 hemoglobin A1C, blood, as % of total hemoglobin 6.0 % 4.3-6.0 albumin/creatinine ratio, urine < 30 mg/g mg/g{creat} 0-29 Lab Report: CBC, Comp. Metabolic Panel, Lipid Panel, HGBA1C, MICROALB/CR ... - Hematology hematocrit, blood 41.8 % 36.0-46.0 hemoglobin, blood 14.0 g/dL 12.0-16.0 erythrocyte (RBC) count 4.43 10^6/MM^3 10*6/mm3 4.04-5.48 leukocyte count, blood 8.2 10^3/MM^3 10*3/mm3 4.6-10.2 mean corpuscular volume, RBC 94 fL 80-97 [...] Comp. Metabolic Panel, Lipid Panel - Chemistry calcium, serum 8.5 mg/dL 8.5-10.1 bilirubin, serum, total 0.30 mg/dL 0.00-1.00 cholesterol, serum 152 mg/dL 461-298 4841/09/27 triglyceride, serum, fasting 85 mg/dL 30-200 HDL cholesterol, serum 59 mg/dL 32-96 LDL cholesterol, serum 76 mg/dL 0-130 sodium, serum 143 mmol/L 660-420 9769/09/27 carbon dioxide, venous blood 30.1 mmol/L 21.0-32.0 potassium, serum 3.9 mmol/L 3.5-5.2 chloride, serum 107 mmol/L 98-107 blood glucose 114 mg/dL 65-110 urea nitrogen, blood 14 mg/dL 7-18 creatinine, serum 0.79 mg/dL 0.55-1.30 alanine aminotransferase (SGPT), serum 44 U/L 12-78 aspartate aminotransferase (SGOT), serum 25 U/L 15-37 Encounters Code Encounter Date Provider Facility CPT-29596 Level 4 Est. Patient 14:21:31 CDT Andre Barreto MD [facility] CPT-02067 Level 4 Est. Patient 15:24:17 CDT Andre Barreto MD [facility] CPT-28139 Level 3 Est. Patient 10:36:40 CDT Andre Barreto MD [facility] CPT-92262 Level 4 Est. Patient 11:27:43 CDT Andre Barreto MD [facility] CPT-89496 Level 3 Est. Patient 10:57:31 DIRECTOR SPEECH AND HEARING Andre Barreto MD [facility] CPT-29086 Level 3 Est. Patient 13:53:13 DIRECTOR SPEECH AND HEARING Andre Barreto MD [facility] CPT-59367 Level 3 Est. Patient 09:16:12 CDT Andre Barreto MD [facility] CPT-29851 Level 3 Est. Patient 14:50:35 CDT Andre Barreto MD [facility] Procedures Code Procedure Name Date Entry Date Standard Description CPT-58243 Venipuncture Draw Fee 14:11:36 CDT CPT-55151 Lipid - LAB USE ONLY 14:11:36 CDT CPT-87239 CMP - LAB USE ONLY 14:11:36 CDT CPT-G0438 Initial Annual Wellness Exam 13:29:06 CDT CPT-G0009 Administration of Pneumococcal Vaccine 13:26:57 CDT CPT-23665 Prevnar 13 Intramuscular Suspension 13:26:56 CDT 08/19 CPT-76901 Bone Density - XRAY USE ONLY 09:30:16 CDT CPT-Cryo Cryotherapy 08:59:26 DIRECTOR SPEECH AND HEARING CPT-Cryo Cryotherapy 08:46:02 CDT CPT-86481 Chest 2V Frontal and Lat 14:02:13 DIRECTOR SPEECH AND HEARING
--- OUTSIDE RECORDS SUMMARY | 2018-03-16 20:57 | XMS REPORT | Clinical Summary ---
Author Author Admin, EDUARDO Organization [employer] Address Unknown Phone Unavailable Allergies, Adverse Reactions, Alerts Allergy Name Reaction Description Start Date Severity Status Provider SULFA Mild No Longer Active Jillina Frazell PRODUCTION OPERATIONS INSPECTOR PENICILLIN Mild No Longer Active Jillina Frazell PRODUCTION OPERATIONS INSPECTOR ZINC Mild No Longer Active Jillina Frazell PRODUCTION OPERATIONS INSPECTOR SULFA Critical No Longer Active Marcelle Yesi [...] Coronary atherosclerosis of unspecified type of vessel, [place] or graft Obstructive sleep apnea 327.23 Active [...] airway pressure rx V46.2 Active Pushpa Hernandez PRODUCTION OPERATIONS INSPECTOR Other dependence on machines, supplemental oxygen Osteopenia 733.90 Active Pushpa Hernandez APRN Disorder of bone and cartilage, unspecified Obstructive sleep apnea 327.23 Active Andre Barreto MD Obstructive sleep apnea (adult) (pediatric) Acute exacerbation of chronic bronchitis 491.22 Inactive Solitario Howe MD Obstructive chronic bronchitis with acute bronchitis Sinusitis 473.9 Active David King PRODUCTION OPERATIONS INSPECTOR Unspecified sinusitis (chronic) Abscess, skin 682.9 Active [...] po QID x 7 days CLINDAMYCIN HCL 20131189368 Active Jillina Frazell PRODUCTION OPERATIONS INSPECTOR Active BACTRIM DS 800-160 MG ORAL TABLET 1 tab by mouth twice daily 2017 TRIMETHOPRIM-SULFAMETHOXAZOLE 41475580470 No Longer Active Jillina Frazell PRODUCTION OPERATIONS INSPECTOR Active BACTROBAN 2 % EXTERNAL OINTMENT Apply to affected area BID MUPIROCIN 99633769738 Active Jillina Frazell PRODUCTION OPERATIONS INSPECTOR Active GUAIFENESIN DM 400-20 MG ORAL TABLET 1 pill by mouth twice daily, if needed for cough DEXTROMETHORPHAN-GUAIFENESIN 26007913129 Active Jillina Frazell PRODUCTION OPERATIONS INSPECTOR Active CEFDINIR 300 MG ORAL CAPSULE by mouth twice a day CEFDINIR 45665269809 No Longer Active Jillina Frazell PRODUCTION OPERATIONS INSPECTOR Active BENZONATATE 200 MG ORAL CAPSULE 1 three times a day as needed for cough 03/27 BENZONATATE 73913151913 No Longer Active Luna Prabhakar Active ZITHROMAX Z-NEVAEH 250 MG ORAL TABLET 2 today and then 1 daily for 4 days 03/27 AZITHROMYCIN 33248582059 No Longer Active Luna Prabhakar Active PREDNISONE 20 MG ORAL TABLET 2 daily for 3 days then 1 daily for 3 days 03/27 PREDNISONE 61905004048 No Longer Active Luna Prabhakar Active ATORVASTATIN CALCIUM 40 MG ORAL TABLET 1 po qHS ATORVASTATIN CALCIUM 03751628934 Active Marcelle VERA Active CLOPIDOGREL BISULFATE 75 MG ORAL TABLET 1 po qd CLOPIDOGREL BISULFATE 72100271304 Active Andre Barreto MD Active FUROSEMIDE 20 MG ORAL TABLET 1 po qd PRN Edema FUROSEMIDE 15251638258 Active Andre Barreto MD Active PROAIR HFA 108 (90 Base) MCG/ACT INHALATION AEROSOL SOLUTION 2 puffs q4hr PRN Shortness of air/Wheezing ALBUTEROL SULFATE 39313237048 Active Andre Barreto MD Active ATORVASTATIN CALCIUM 80 MG ORAL TABLET 1 po qHS ATORVASTATIN CALCIUM 51868385672 No Longer Active Andre Barreto MD Active AMBIEN 5 MG ORAL TABLET 1 po qHS PRN Insomnia ZOLPIDEM TARTRATE 21298473701 Active Andre Barreto MD Active DETROL 2 MG ORAL TABLET 1 po qd TOLTERODINE TARTRATE 08668468716 Active Andre Barreto MD Active NITROGLYCERIN 0.4 MG SUBLINGUAL TABLET SUBLINGUAL 1 SL q5min PRN Chest pain up to 3 doses NITROGLYCERIN 03620035923 Active Andre Barreto MD Active TOPROL XL 50 MG ORAL TABLET EXTENDED RELEASE 24 HOUR 1 po qd METOPROLOL SUCCINATE 24651516487 Active Andre Barreto MD Active SYMBICORT 160-4.5 MCG/ACT INHALATION AEROSOL 2 puff BID BUDESONIDE-FORMOTEROL FUMARATE 71697392161 Active Cayla Flanagan Isabella Active FLUOXETINE HCL 40 MG ORAL CAPSULE 1 po qd FLUOXETINE HCL 81651738703 Active Andre Barreto MD Active BENICAR HCT 40-25 MG ORAL TABLET Take one by mouth daily OLMESARTAN MEDOXOMIL-HCTZ 57300188752 No Longer Active Andre Barreto MD Active LOSARTAN POTASSIUM-HCTZ 100-25 MG ORAL TABLET 1 po qd LOSARTAN POTASSIUM-HCTZ 04210474570 Active Andre Barreto MD Active BETAMETHASONE DIPROPIONATE 0.05 % EXTERNAL OINTMENT Apply to affected areas BID for up to 2 weeks BETAMETHASONE DIPROPIONATE 75013028325 No Longer Active Andre Barreto MD Active ZOFRAN 4 MG ORAL TABLET 1 po q6hr PRN Nausea ONDANSETRON HCL 86220228870 No Longer Active Andre Barreto MD Active CIPRO 500 MG ORAL TABLET 1 tablet by mouth twice daily CIPROFLOXACIN HCL 40273064146 No Longer Active Andre Barreto MD Active SYMBICORT 160-4.5 MCG/ACT INHALATION AEROSOL 2 puffs inhaled bid BUDESONIDE-FORMOTEROL FUMARATE 17431642416 No Longer Active Andre Barreto MD Active DICLOFENAC SODIUM 75 MG ORAL TABLET DELAYED RELEASE 1 tablet by mouth twice daily DICLOFENAC SODIUM 45548539044 No Longer Active Andre Barreto MD Active PROZAC 40 MG ORAL CAPSULE 1 cap by mouth at bedtime FLUOXETINE HCL 65127657415 No Longer Active Andre Barreto MD Active HYDROCODONE-ACETAMINOPHEN 5-325 MG ORAL TABLET 1 po q 6hr PRN Pain HYDROCODONE-ACETAMINOPHEN 81278933994 No Longer Active Andre Barreto MD Active TRAMADOL HCL 50 MG ORAL TABLET 2 po q 6 hrs prn TRAMADOL HCL 52016817080 Active Andre Barreto MD Active HYDROCODONE-ACETAMINOPHEN 5-325 MG ORAL TABLET 1 po q 6hr PRN Pain HYDROCODONE-ACETAMINOPHEN 5-325 MG ORAL TABLET 792077 HYDROCODONE- ACETAMINOPHEN Inactive PROZAC 40 MG ORAL CAPSULE 1 cap by mouth at bedtime PROZAC 40 MG ORAL CAPSULE 020251 FLUOXETINE HCL Inactive DICLOFENAC SODIUM 75 MG ORAL TABLET DELAYED RELEASE 1 tablet by mouth twice daily DICLOFENAC SODIUM 75 MG ORAL TABLET DELAYED RELEASE 830197 DICLOFENAC SODIUM Inactive SYMBICORT 160-4.5 MCG/ACT INHALATION AEROSOL 2 puffs inhaled bid SYMBICORT 160-4.5 MCG/ACT INHALATION AEROSOL BUDESONIDE-FORMOTEROL FUMARATE Inactive ZOFRAN 4 MG ORAL TABLET 1 po q6hr PRN Nausea ZOFRAN 4 MG ORAL TABLET 816563 ONDANSETRON HCL Inactive BETAMETHASONE DIPROPIONATE 0.05 % EXTERNAL OINTMENT Apply to affected areas BID for up to 2 weeks BETAMETHASONE DIPROPIONATE 0.05 % EXTERNAL OINTMENT 488632 BETAMETHASONE DIPROPIONATE Inactive BENICAR HCT 40-25 MG ORAL TABLET Take one by mouth daily BENICAR HCT 40-25 MG ORAL TABLET 416679 OLMESARTAN MEDOXOMIL-HCTZ Inactive ATORVASTATIN CALCIUM 80 MG ORAL TABLET 1 po qHS ATORVASTATIN CALCIUM 80 MG ORAL TABLET 556418 ATORVASTATIN CALCIUM Inactive PREDNISONE 20 MG ORAL TABLET 2 daily for 3 days then 1 daily for 3 days 03/27 PREDNISONE 20 MG ORAL TABLET 240855 PREDNISONE Inactive ZITHROMAX Z-NEVAEH 250 MG ORAL TABLET 2 today and then 1 daily for 4 days 03/27 ZITHROMAX Z-NEVAEH 250 MG ORAL TABLET 828215 AZITHROMYCIN Inactive BENZONATATE 200 MG ORAL CAPSULE 1 three times a day as needed for cough 03/27 BENZONATATE 200 MG ORAL CAPSULE 569059 BENZONATATE Inactive BACTRIM DS 800-160 MG ORAL TABLET 1 tab by mouth twice daily 2017 BACTRIM DS 800-160 MG ORAL TABLET 829392 TRIMETHOPRIM- SULFAMETHOXAZOLE Inactive CIPRO 500 MG ORAL TABLET 1 tablet by mouth twice daily CIPRO 500 MG ORAL TABLET 813371 CIPROFLOXACIN HCL Inactive CEFDINIR 300 MG ORAL CAPSULE by mouth twice a day CEFDINIR 300 MG ORAL CAPSULE 776674 CEFDINIR Inactive Advance Directives Directive Description Start [...] 6.2 % 4.3-6.0 cholesterol, serum 229 mg/dL 506-520 5217/07/24 triglyceride, serum, fasting 106 mg/dL 30-200 HDL cholesterol, serum 60 mg/dL 32-60 LDL cholesterol, serum 148 mg/dL 0-130 sodium, serum 139 mmol/L 758-141 2508/07/24 carbon dioxide, venous blood 34.8 mmol/L 21.0-32.0 [...] Panel - Chemistry cholesterol, serum 275 mg/dL 731-981 4704/11/07 triglyceride, serum, fasting 166 mg/dL 30-200 HDL cholesterol, serum 62 mg/dL 32-60 LDL cholesterol, serum 180 mg/dL 0-130 sodium, serum 141 mmol/L 150-585 2466/11/07 carbon dioxide, venous blood 26.3 mmol/L 21.0-32.0 [...] 0-19 Encounters Code Encounter Date Provider Facility CPT-62669 Level 3 Est. Patient 14:06:16 CDT Andre Barreto MD [facility] CPT-14911 Level 3 Est. Patient 09:16:36 CDT David King [facility] CPT-38763 Level 3 Est. Patient 09:24:01 LIVE OUT NANNY David King [facility] CPT-72691 Level 3 Est. Patient 13:01:07 LIVE OUT NANNY Solitario Howe MD [facility] CPT-25238 Level 4 Est. Patient 10:26:48 LIVE OUT [place]AN[place] Andre Barreto MD [facility] CPT-60002 Level 4 Est. Patient 09:45:06 CDT Andre Barreto MD [facility] CPT-65888 Level 4 Est. Patient 11:53:39 LIVE OUT [place]ANNY Andre Barreto MD [facility] CPT-88800 Level 4 Est. Patient 14:21:31 CDT Andre Barreto MD [facility] CPT-27501 Level 4 Est. Patient 15:24:17 CDT Andre Barreto MD [facility] CPT-78236 Level 3 Est. Patient 10:36:40 CDT Andre Barreto MD [facility] CPT-53364 Level 4 Est. Patient 11:27:43 CDT Andre Barreto MD [facility] CPT-98794 Level 3 Est. Patient 10:57:31 LIVE OUT [place]ANNY Andre Barreto MD [facility] CPT-20834 Level 3 Est. Patient 13:53:13 LIVE OUT [place]ANNY Andre Barreto MD [facility] CPT-00546 Level 3 Est. Patient 09:16:12 CDT Andre Barreto MD [facility] CPT-19239 Level 3 Est. Patient 14:50:35 CDT Andre Barreto MD [facility] Procedures Code Procedure Name Date Entry Date Standard Description CPT-94854 Sono pelvis coley bladder only - XRAY USE ONLY 15:07:39 CDT CPT-64891 First Vx - Ix admin for Medicare patients 13:56:44 LIVE OUT [place]ANNY CPT-22930 Zostavax Subcutaneous Solution Reconstituted 93088 UNT/0.65ML 12/22 13:56:44 LIVE OUT [place]AN[place] CPT-G0009 Administration of Pneumococcal Vaccine 10:12:50 CDT CPT-94562 Pneumovax 23 Injection Injectable 25 MCG/0.5ML 10:12:50 CDT CPT-G0439 Subsequent Annual Wellness Exam 09:49:25 CDT CPT-46098 First Vx - Ix admin for Medicare patients 17:55:11 LIVE OUT [place]AN[place] CPT-07222 Fluzone High-Dose Intramuscular Suspension 17:55:11 LIVE OUT [place]AN[place] CPT-90376 Venipuncture Draw Fee 14:11:36 CDT CPT-56142 Lipid - LAB USE ONLY 14:11:36 CDT CPT-86647 CMP - LAB USE ONLY 14:11:36 CDT CPT-G0438 Initial Annual Wellness Exam 13:29:06 CDT CPT-G0009 Administration of Pneumococcal Vaccine 13:26:57 CDT CPT-93816 Prevnar 13 Intramuscular Suspension 13:26:56 CDT 08/19 CPT-07678 Bone Density - XRAY USE ONLY 09:30:16 CDT CPT-Cryo Cryotherapy 08:59:26 LIVE OUT NANNY CPT-Cryo Cryotherapy 08:46:02 CDT CPT-43257 Chest 2V Frontal and Lat 14:02:13 LIVE OUT NANNY
--- OUTSIDE RECORDS SUMMARY | 2018-03-16 20:57 | XMS REPORT | Clinical Summary ---
Author Author Admin, E Organization [facility] Address Unknown Phone Unavailable Allergies, [...] apnea (adult) (pediatric) Health screening V70.0 Active Adnre Barreto MD Routine general medical examination at [...] MG TABS 1 po qHS ATORVASTATIN CALCIUM 96795279061 Active Andre Barreto MD Active SYMBICORT 160-4.5 MCG/ACT AERO 2 puff BID BUDESONIDE- FORMOTEROL FUMARATE 51234565657 Active Andre Barreto MD Active PROAIR HFA 108 (90 BASE) MCG/ACT AERS 2 puffs four times a day as needed 2015 ALBUTEROL SULFATE 22925391287 Active Andre Barreto MD Active FLUOXETINE HCL 40 MG ORAL CAPS 1 po qd FLUOXETINE HCL 05059601839 Active Andre Barreto MD Active DETROL 2 MG ORAL TABS one tab daily TOLTERODINE TARTRATE 24953714535 Active Andre Barreto MD Active BENICAR HCT 40-25 MG TABS Take one by mouth daily OLMESARTAN MEDOXOMIL-HCTZ 46390423057 No Longer Active Andre Barreto MD Active LOSARTAN POTASSIUM-HCTZ 100-25 MG TABS 1 po qd LOSARTAN POTASSIUM-HCTZ 03209452404 Active Andre Barreto MD Active BETAMETHASONE DIPROPIONATE 0.05 % OINT Apply to affected areas BID for up to 2 weeks BETAMETHASONE DIPROPIONATE 11200161678 No Longer Active Andre Barreto MD Active ZOFRAN 4 MG TABS 1 po q6hr PRN Nausea ONDANSETRON HCL 58727031275 No Longer Active Andre Barreto MD Active CIPRO 500 MG TAB 1 tablet by mouth twice daily CIPROFLOXACIN HCL 28274173489 No Longer Active Andre Barreto MD Active SYMBICORT 160-4.5 MCG/ACT AERO 2 puffs inhaled bid BUDESONIDE- FORMOTEROL FUMARATE 86142686717 No Longer Active Andre Barreto MD Active LASIX 20 MG TAB 1 tablet by mouth daily PRN FUROSEMIDE 09074436090 Active Andre Barreto MD Active TOPROL XL 25 MG [id number] Take one by mouth daily METOPROLOL SUCCINATE 68116508253 Active Andre Barreto MD Active PLAVIX 75 MG TABS 1 tablet by mouth daily CLOPIDOGREL BISULFATE 28046285275 Active Andre Barreto MD Active NITROSTAT 0.4 MG SL TAB disolve 1 under tongue repeat if needed NITROGLYCERIN 65611904535 Active Andre Barreto MD Active DICLOFENAC SODIUM 75 MG TBEC 1 tablet by mouth twice daily DICLOFENAC SODIUM 80908058253 No Longer Active Andre Barreto MD Active PROZAC 40 MG CAPS 1 cap by mouth at bedtime FLUOXETINE HCL 84721844032 No Longer Active Andre Barreto MD Active HYDROCODONE-ACETAMINOPHEN 5-325 MG TABS 1 po q 6hr PRN Pain HYDROCODONE-ACETAMINOPHEN 02858838886 No Longer Active Andre Barreto MD Active TRAMADOL HCL 50 MG TABS 2 po q 6 hrs prn TRAMADOL HCL 93621435998 Active David King DIRECTOR OF [employer]ENCE [employer] Active AMBIEN 5 MG TABS 1 po a hs prn ZOLPIDEM TARTRATE 91844154178 Active Andre Barreto MD Active HYDROCODONE-ACETAMINOPHEN 5-325 MG TABS 1 po q 6hr PRN Pain HYDROCODONE-ACETAMINOPHEN 5-325 MG TABS 040312 HYDROCODONE-ACETAMINOPHEN Inactive PROZAC 40 MG CAPS 1 cap by mouth at bedtime PROZAC 40 MG CAPS 342632 FLUOXETINE HCL Inactive DICLOFENAC SODIUM 75 MG TBEC 1 tablet by mouth twice daily DICLOFENAC SODIUM 75 MG TBEC 986544 DICLOFENAC SODIUM Inactive SYMBICORT 160-4.5 MCG/ACT AERO 2 puffs inhaled bid SYMBICORT 160-4.5 MCG/ACT AERO BUDESONIDE-FORMOTEROL FUMARATE Inactive ZOFRAN 4 MG TABS 1 po q6hr PRN Nausea ZOFRAN 4 MG TABS 058337 ONDANSETRON HCL Inactive BETAMETHASONE DIPROPIONATE 0.05 % OINT Apply to affected areas BID for up to 2 weeks BETAMETHASONE DIPROPIONATE 0.05 % OINT 008193 BETAMETHASONE DIPROPIONATE Inactive BENICAR HCT 40-25 MG TABS Take one by mouth daily BENICAR HCT 40-25 MG TABS OLMESARTAN MEDOXOMIL-HCTZ Inactive CIPRO 500 MG TAB 1 tablet by mouth twice daily CIPRO 500 MG TAB 732104 CIPROFLOXACIN HCL Inactive Advance Directives Directive Description [...] ... - Chemistry sodium, serum 140 mmol/L 946-648 2496/06/28 carbon dioxide, venous blood 32.4 mmol/L 21.0-32.0 potassium, serum 4.0 mmol/L 3.5-5.2 chloride, serum 101 mmol/L 98-107 blood glucose 108 mg/dL 65-110 urea nitrogen, blood 20 mg/dL 7-18 creatinine, serum 0.98 mg/dL 0.55-1.30 alanine aminotransferase (SGPT), serum 44 U/L 12-78 aspartate aminotransferase (SGOT), serum 27 U/L 15-37 calcium, serum 9.4 mg/dL 8.5-10.1 bilirubin, serum, total 0.30 mg/dL 0.00-1.00 cholesterol, serum 264 mg/dL 710-886 8714/06/28 triglyceride, serum, fasting 146 mg/dL 30-200 HDL [...] 0-19 Encounters Code Encounter Date Provider Facility CPT-16187 Level 4 Est. Patient 15:24:17 CDT Andre Barreto MD [facility] CPT-88839 Level 3 Est. Patient 10:36:40 CDT Andre Barreto MD [facility] CPT-63444 Level 4 Est. Patient 11:27:43 CDT Andre Barreto MD [facility] CPT-01394 Level 3 Est. Patient 10:57:31 REPAIRER FINISHED METAL Andre Barreto MD [facility] CPT-19650 Level 3 Est. Patient 13:53:13 REPAIRER FINISHED METAL Andre Barreto MD [facility] CPT-22579 Level 3 Est. Patient 09:16:12 CDT Andre Barreto MD [facility] CPT-77705 Level 3 Est. Patient 14:50:35 CDT Andre Barreto MD [facility] Procedures Code Procedure Name Date Entry Date Standard Description CPT-G0438 Initial Annual Wellness Exam 13:29:06 CDT CPT-G0009 Administration of Pneumococcal Vaccine 13:26:57 CDT CPT-44017 Prevnar 13 Intramuscular Suspension 13:26:56 CDT 08/19 CPT-41620 Bone Density - XRAY USE ONLY 09:30:16 CDT CPT-Cryo Cryotherapy 08:59:26 REPAIRER FINISHED METAL CPT-Cryo Cryotherapy 08:46:02 CDT CPT-61949 Chest 2V Frontal and Lat 14:02:13 REPAIRER FINISHED METAL
--- OUTSIDE RECORDS SUMMARY | 2018-03-16 20:58 | XMS REPORT | Clinical Summary ---
Author Author Admin, E Organization [facility] Address Unknown Phone Unavailable Allergies, Adverse Reactions, [...] Coronary atherosclerosis of unspecified type of vessel, [place] or graft Obstructive sleep apnea 327.23 Active [...] Generic Name NDC Status Provider Patient Instruction PLAVIX 75 MG TABS 1 po qd CLOPIDOGREL BISULFATE 42265079530 Active Andre Barreto MD Active LASIX 20 MG TAB 1 po qd PRN Edema FUROSEMIDE 68583638268 Active Andre Barreto MD Active TOPROL XL 25 MG [id number] 1 po qd METOPROLOL SUCCINATE 43925765191 Active Andre Barreto MD Active ATORVASTATIN CALCIUM 80 MG TABS 1 po qHS ATORVASTATIN CALCIUM 52403489960 Active Andre Barreto MD Active SYMBICORT 160-4.5 MCG/ACT AERO 2 puff BID BUDESONIDE- FORMOTEROL FUMARATE 08039792405 Active Andre Barreto MD Active PROAIR HFA 108 (90 BASE) MCG/ACT AERS 2 puffs four times a day as needed 2015 ALBUTEROL SULFATE 05762252589 Active Andre Barreto MD Active FLUOXETINE HCL 40 MG ORAL CAPS 1 po qd FLUOXETINE HCL 69553050490 Active Andre Barreto MD Active DETROL 2 MG ORAL TABS one tab daily TOLTERODINE TARTRATE 22335301185 Active Andre Barreto MD Active BENICAR HCT 40-25 MG TABS Take one by mouth daily OLMESARTAN MEDOXOMIL-HCTZ 24634804178 No Longer Active Andre Barreto MD Active LOSARTAN POTASSIUM-HCTZ 100-25 MG TABS 1 po qd LOSARTAN POTASSIUM-HCTZ 79502648938 Active Andre Barreto MD Active BETAMETHASONE DIPROPIONATE 0.05 % OINT Apply to affected areas BID for up to 2 weeks BETAMETHASONE DIPROPIONATE 85220918196 No Longer Active Andre Barreto MD Active ZOFRAN 4 MG TABS 1 po q6hr PRN Nausea ONDANSETRON HCL 64467021115 No Longer Active Andre Barreto MD Active CIPRO 500 MG TAB 1 tablet by mouth twice daily CIPROFLOXACIN HCL 39484555587 No Longer Active Andre Barreto MD Active SYMBICORT 160-4.5 MCG/ACT AERO 2 puffs inhaled bid BUDESONIDE- FORMOTEROL FUMARATE 84840907895 No Longer Active Andre Barreto MD Active NITROSTAT 0.4 MG SL TAB disolve 1 under tongue repeat if needed NITROGLYCERIN 34487960255 Active Andre Barreto MD Active DICLOFENAC SODIUM 75 MG TBEC 1 tablet by mouth twice daily DICLOFENAC SODIUM 85165480286 No Longer Active Andre Barreto MD Active PROZAC 40 MG CAPS 1 cap by mouth at bedtime FLUOXETINE HCL 65664839727 No Longer Active Andre Barreto MD Active HYDROCODONE-ACETAMINOPHEN 5-325 MG TABS 1 po q 6hr PRN Pain HYDROCODONE-ACETAMINOPHEN 94196653383 No Longer Active Andre Barreto MD Active TRAMADOL HCL 50 MG TABS 2 po q 6 hrs prn TRAMADOL HCL 72154040768 Active Andre Barreto MD Active AMBIEN 5 MG TABS 1 po a hs prn ZOLPIDEM TARTRATE 38036220570 Active Andre Barreto MD Active HYDROCODONE-ACETAMINOPHEN 5-325 MG TABS 1 po q 6hr PRN Pain HYDROCODONE-ACETAMINOPHEN 5-325 MG TABS 866478 HYDROCODONE-ACETAMINOPHEN Inactive PROZAC 40 MG CAPS 1 cap by mouth at bedtime PROZAC 40 MG CAPS 695688 FLUOXETINE HCL Inactive DICLOFENAC SODIUM 75 MG TBEC 1 tablet by mouth twice daily DICLOFENAC SODIUM 75 MG TBEC 530496 DICLOFENAC SODIUM Inactive SYMBICORT 160-4.5 MCG/ACT AERO 2 puffs inhaled bid SYMBICORT 160-4.5 MCG/ACT AERO BUDESONIDE-FORMOTEROL FUMARATE Inactive ZOFRAN 4 MG TABS 1 po q6hr PRN Nausea ZOFRAN 4 MG TABS 115974 ONDANSETRON HCL Inactive BETAMETHASONE DIPROPIONATE 0.05 % OINT Apply to affected areas BID for up to 2 weeks BETAMETHASONE DIPROPIONATE 0.05 % OINT 655025 BETAMETHASONE DIPROPIONATE Inactive BENICAR HCT 40-25 MG TABS Take one by mouth daily BENICAR HCT 40-25 MG TABS OLMESARTAN MEDOXOMIL-HCTZ Inactive CIPRO 500 MG TAB 1 tablet by mouth twice daily CIPRO 500 MG TAB 149043 CIPROFLOXACIN HCL Inactive Advance Directives Directive Description [...] ... - Chemistry sodium, serum 140 mmol/L 265-570 3924/06/28 carbon dioxide, venous blood 32.4 mmol/L 21.0-32.0 potassium, serum 4.0 mmol/L 3.5-5.2 chloride, serum 101 mmol/L 98-107 blood glucose 108 mg/dL 65-110 urea nitrogen, blood 20 mg/dL 7-18 creatinine, serum 0.98 mg/dL 0.55-1.30 alanine aminotransferase (SGPT), serum 44 U/L 12-78 aspartate aminotransferase (SGOT), serum 27 U/L 15-37 calcium, serum 9.4 mg/dL 8.5-10.1 bilirubin, serum, total 0.30 mg/dL 0.00-1.00 cholesterol, serum 264 mg/dL 687-210 2152/06/28 triglyceride, serum, fasting 146 mg/dL 30-200 HDL [...] Panel - Chemistry sodium, serum 143 mmol/L 611-708 2077/09/27 carbon dioxide, venous blood 30.1 mmol/L 21.0-32.0 potassium, serum 3.9 mmol/L 3.5-5.2 chloride, serum 107 mmol/L 98-107 blood glucose 114 mg/dL 65-110 urea nitrogen, blood 14 mg/dL 7-18 creatinine, serum 0.79 mg/dL 0.55-1.30 alanine aminotransferase (SGPT), serum 44 U/L 12-78 aspartate aminotransferase (SGOT), serum 25 U/L 15-37 calcium, serum 8.5 mg/dL 8.5-10.1 bilirubin, serum, total 0.30 mg/dL 0.00-1.00 cholesterol, serum 152 mg/dL 747-667 9939/09/27 triglyceride, serum, fasting 85 mg/dL 30-200 HDL cholesterol, serum 59 mg/dL 32-96 LDL cholesterol, serum 76 mg/dL 0-130 Encounters Code Encounter Date Provider Facility CPT-76338 Level 4 Est. Patient 15:24:17 CDT Andre Barreto MD [facility] CPT-89364 Level 3 Est. Patient 10:36:40 CDT Andre Barreto MD [facility] CPT-72855 Level 4 Est. Patient 11:27:43 CDT Andre Barreto MD [facility] CPT-58126 Level 3 Est. Patient 10:57:31 DIRECTOR SOCIAL WELFARE Andre Barreto MD [facility] CPT-32268 Level 3 Est. Patient 13:53:13 DIRECTOR SOCIAL WELFARE Andre Barreto MD [facility] CPT-88994 Level 3 Est. Patient 09:16:12 CDT Andre Barreto MD [facility] CPT-10941 Level 3 Est. Patient 14:50:35 CDT Andre Barreto MD [facility] Procedures Code Procedure Name Date Entry Date Standard Description CPT-G0438 Initial Annual Wellness Exam 13:29:06 CDT CPT-G0009 Administration of Pneumococcal Vaccine 13:26:57 CDT CPT-11124 Prevnar 13 Intramuscular Suspension 13:26:56 CDT 08/19 CPT-49721 Bone Density - XRAY USE ONLY 09:30:16 CDT CPT-Cryo Cryotherapy 08:59:26 DIRECTOR SOCIAL WELFARE CPT-Cryo Cryotherapy 08:46:02 CDT CPT-42823 Chest 2V Frontal and Lat 14:02:13 DIRECTOR SOCIAL WELFARE
--- OUTSIDE RECORDS SUMMARY | 2018-03-16 20:58 | XMS REPORT | Clinical Summary ---
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 PROFESSOR Other dependence on machines, supplemental oxygen Osteopenia [...] Seborrheic keratosis ICD-702.19 Inactive Andre Barreto MD Actinic keratosis ICD-702.0 Inactive Andre Barreto MD Weakness, muscle ICD-728.87 Inactive Andre Barreto MD Dyshidrotic eczema, hands ICD-705.81 Inactive Andre aBrreto MD Postmenopausal status ICD-V49.81 Inactive Andre Barreto MD Family history of osteoporosis ICD-V17.81 Inactive Andre Barreto MD Unsteady gait ICD-781.2 Inactive Andre Barreto MD Skin tag ICD-701.9 Inactive Andre Barreto MD 2014 Medication List Medication Instructions Start Date Stop Date Generic Name NDC Status Provider Patient Instruction ATORVASTATIN CALCIUM 80 MG TABS 1 po qHS ATORVASTATIN CALCIUM 16990650564 No Longer Active Anrde Barreto MD Active AMBIEN 5 MG TABS 1 po qHS PRN Insomnia ZOLPIDEM TARTRATE 75974609950 Active Andre Barreto MD Active DETROL 2 MG ORAL TABS 1 po qd TOLTERODINE TARTRATE 52783270010 Active Andre Barreto MD Active NITROGLYCERIN 0.4 MG SL SUBL 1 SL q5min PRN Chest pain up to 3 doses NITROGLYCERIN 48133064315 Active Andre Barreto MD Active TOPROL XL 50 MG ORAL [id number] 1 po qd METOPROLOL SUCCINATE 55557257841 Active Andre Barreto MD Active PLAVIX 75 MG TABS 1 po qd CLOPIDOGREL BISULFATE 18282761769 Active Andre Barreto MD Active LASIX 20 MG TAB 1 po qd PRN Edema FUROSEMIDE 26507225427 Active Andre Barreto MD Active SYMBICORT 160-4.5 MCG/ACT AERO 2 puff BID BUDESONIDE- FORMOTEROL FUMARATE 98355682843 Active Cayla VERA Active PROAIR HFA 108 (90 BASE) MCG/ACT AERS 2 puffs four times a day as needed 2015 ALBUTEROL SULFATE 82902661140 Active Andre Barreto MD Active FLUOXETINE HCL 40 MG ORAL CAPS 1 po qd FLUOXETINE HCL 08580294973 Active Andre Barreto MD Active BENICAR HCT 40-25 MG TABS Take one by mouth daily OLMESARTAN MEDOXOMIL-HCTZ 73277116930 No Longer Active Andre Barreto MD Active LOSARTAN POTASSIUM-HCTZ 100-25 MG TABS 1 po qd LOSARTAN POTASSIUM-HCTZ 64226054896 Active Andre Barreto MD Active BETAMETHASONE DIPROPIONATE 0.05 % OINT Apply to affected areas BID for up to 2 weeks BETAMETHASONE DIPROPIONATE 45658387515 No Longer Active Andre Barreto MD Active ZOFRAN 4 MG TABS 1 po q6hr PRN Nausea ONDANSETRON HCL 64558172589 No Longer Active Andre Barreto MD Active CIPRO 500 MG TAB 1 tablet by mouth twice daily CIPROFLOXACIN HCL 98769015195 No Longer Active Andre Barreto MD Active SYMBICORT 160-4.5 MCG/ACT AERO 2 puffs inhaled bid BUDESONIDE- FORMOTEROL FUMARATE 91978274687 No Longer Active Andre Barreto MD Active DICLOFENAC SODIUM 75 MG TBEC 1 tablet by mouth twice daily DICLOFENAC SODIUM 24714668588 No Longer Active Andre Barreto MD Active PROZAC 40 MG CAPS 1 cap by mouth at bedtime FLUOXETINE HCL 31273228454 No Longer Active Andre Barreto MD Active HYDROCODONE-ACETAMINOPHEN 5-325 MG TABS 1 po q 6hr PRN Pain HYDROCODONE-ACETAMINOPHEN 43706096413 No Longer Active Andre Barreto MD Active TRAMADOL HCL 50 MG TABS 2 po q 6 hrs prn TRAMADOL HCL 12122047383 Active Andre Barreto MD Active HYDROCODONE-ACETAMINOPHEN 5-325 MG TABS 1 po q 6hr PRN Pain HYDROCODONE-ACETAMINOPHEN 5-325 MG TABS 576054 HYDROCODONE-ACETAMINOPHEN Inactive PROZAC 40 MG CAPS 1 cap by mouth at bedtime PROZAC 40 MG CAPS 048015 FLUOXETINE HCL Inactive DICLOFENAC SODIUM 75 MG TBEC 1 tablet by mouth twice daily DICLOFENAC SODIUM 75 MG TBEC 581790 DICLOFENAC SODIUM Inactive SYMBICORT 160-4.5 MCG/ACT AERO 2 puffs inhaled bid SYMBICORT 160-4.5 MCG/ACT AERO BUDESONIDE-FORMOTEROL FUMARATE Inactive ZOFRAN 4 MG TABS 1 po q6hr PRN Nausea ZOFRAN 4 MG TABS 199687 ONDANSETRON HCL Inactive BETAMETHASONE DIPROPIONATE 0.05 % OINT Apply to affected areas BID for up to 2 weeks BETAMETHASONE DIPROPIONATE 0.05 % OINT 122377 BETAMETHASONE DIPROPIONATE Inactive BENICAR HCT 40-25 MG TABS Take one by mouth daily BENICAR HCT 40-25 MG TABS 217471 OLMESARTAN MEDOXOMIL-HCTZ Inactive ATORVASTATIN CALCIUM 80 MG TABS 1 po qHS ATORVASTATIN CALCIUM 80 MG TABS 013746 ATORVASTATIN CALCIUM Inactive CIPRO 500 MG TAB 1 tablet by mouth twice daily CIPRO 500 MG TAB 717794 CIPROFLOXACIN HCL Inactive Advance Directives Directive Description [...] Panel - Chemistry sodium, serum 143 mmol/L 645-625 4233/09/27 carbon dioxide, venous blood 30.1 mmol/L 21.0-32.0 potassium, serum 3.9 mmol/L 3.5-5.2 chloride, serum 107 mmol/L 98-107 blood glucose 114 mg/dL 65-110 urea nitrogen, blood 14 mg/dL 7-18 creatinine, serum 0.79 mg/dL 0.55-1.30 alanine aminotransferase (SGPT), serum 44 U/L 12-78 aspartate aminotransferase (SGOT), serum 25 U/L 15-37 calcium, serum 8.5 mg/dL 8.5-10.1 bilirubin, serum, total 0.30 mg/dL 0.00-1.00 cholesterol, serum 152 mg/dL 643-198 1136/09/27 triglyceride, serum, fasting 85 mg/dL 30-200 HDL cholesterol, serum 59 mg/dL 32-96 LDL cholesterol, serum 76 mg/dL 0-130 Lab Report: HGBA1C, Lipid Panel, Comp. Metabolic Panel - Chemistry hemoglobin A1C, blood, as % of total hemoglobin 6.2 % 4.3-6.0 cholesterol, serum 229 mg/dL 658-515 6860/07/24 triglyceride, serum, fasting 106 mg/dL 30-200 HDL cholesterol, serum 60 mg/dL 32-60 LDL cholesterol, serum 148 mg/dL 0-130 sodium, serum 139 mmol/L 015-045 2977/07/24 carbon dioxide, venous blood 34.8 mmol/L 21.0-32.0 [...] 0.00-1.00 Encounters Code Encounter Date Provider Facility CPT-00920 Level 4 Est. Patient 09:45:06 CDT Andre Barreto MD [facility] CPT-38518 Level 4 Est. Patient 11:53:39 AWNING SPREADER Andre Barreto MD [facility] CPT-91261 Level 4 Est. Patient 14:21:31 CDT Andre Barreto MD [facility] CPT-39363 Level 4 Est. Patient 15:24:17 CDT Andre Barreto MD [facility] CPT-81096 Level 3 Est. Patient 10:36:40 CDT Andre Barreto MD [facility] CPT-27294 Level 4 Est. Patient 11:27:43 CDT Andre Barreto MD [facility] CPT-05222 Level 3 Est. Patient 10:57:31 AWNING SPREADER Andre Barreto MD [facility] CPT-95249 Level 3 Est. Patient 13:53:13 AWNING SPREADER Andre Barreto MD [facility] CPT-98248 Level 3 Est. Patient 09:16:12 CDT Andre Barreto MD [facility] CPT-78359 Level 3 Est. Patient 14:50:35 CDT Andre Barreto MD [facility] Procedures Code Procedure Name Date Entry Date Standard Description CPT-G0009 Administration of Pneumococcal Vaccine 10:12:50 CDT CPT-05013 Pneumovax 23 Injection Injectable 25 MCG/0.5ML 10:12:50 CDT CPT-G0439 MC Subsequent Annual Wellness Exam 09:49:25 CDT CPT-85855 First Vx - Ix admin for Medicare patients 17:55:11 AWNING SPREADER CPT-54545 Fluzone High-Dose Intramuscular Suspension 17:55:11 AWNING SPREADER CPT-65684 Venipuncture Draw Fee 14:11:36 CDT CPT-41374 Lipid - LAB USE ONLY 14:11:36 CDT CPT-64597 CMP - LAB USE ONLY 14:11:36 CDT CPT-G0438 Initial Annual Wellness Exam 13:29:06 CDT CPT-G0009 Administration of Pneumococcal Vaccine 13:26:57 CDT CPT-35062 Prevnar 13 Intramuscular Suspension 13:26:56 CDT 08/19 CPT-86738 Bone Density - XRAY USE ONLY 09:30:16 CDT CPT-Cryo Cryotherapy 08:59:26 AWNING SPREADER CPT-Cryo Cryotherapy 08:46:02 CDT CPT-26546 Chest 2V Frontal and Lat 14:02:13 AWNING SPREADER
--- OUTSIDE RECORDS SUMMARY | 2018-03-16 20:59 | XMS REPORT | Clinical Summary ---
Author Author Admin, EDUARDO Organization [employer] Address Unknown Phone Unavailable Allergies, Adverse Reactions, [...] atherosclerosis of unspecified type of vessel, [place] or graft Obstructive sleep apnea 327.23 Active [...] MG TABS 1 po qHS ATORVASTATIN CALCIUM 63339524342 Active Andre Barreto MD Active SYMBICORT 160-4.5 MCG/ACT AERO 2 puff BID BUDESONIDE- FORMOTEROL FUMARATE 14178241293 Active Andre Barreto MD Active PROAIR HFA 108 (90 BASE) MCG/ACT AERS 2 puffs four times a day as needed 2015 ALBUTEROL SULFATE 26447751173 Active Andre Barreto MD Active FLUOXETINE HCL 40 MG ORAL CAPS 1 po qd FLUOXETINE HCL 47729491900 Active Andre Barreto MD Active DETROL 2 MG ORAL TABS one tab daily TOLTERODINE TARTRATE 96101828968 Active Andre Barreto MD Active BENICAR HCT 40-25 MG TABS Take one by mouth daily OLMESARTAN MEDOXOMIL-HCTZ 05934694486 No Longer Active Andre Barreto MD Active LOSARTAN POTASSIUM-HCTZ 100-25 MG TABS 1 po qd LOSARTAN POTASSIUM-HCTZ 89273284139 Active Andre Barreto MD Active BETAMETHASONE DIPROPIONATE 0.05 % OINT Apply to affected areas BID for up to 2 weeks BETAMETHASONE DIPROPIONATE 97665484161 No Longer Active Andre Barreto MD Active ZOFRAN 4 MG TABS 1 po q6hr PRN Nausea ONDANSETRON HCL 65909294436 No Longer Active Andre Barreto MD Active CIPRO 500 MG TAB 1 tablet by mouth twice daily CIPROFLOXACIN HCL 43321249851 No Longer Active Andre Barreto MD Active SYMBICORT 160-4.5 MCG/ACT AERO 2 puffs inhaled bid BUDESONIDE- FORMOTEROL FUMARATE 15090595754 No Longer Active Andre Barreto MD Active LASIX 20 MG TAB 1 tablet by mouth daily PRN FUROSEMIDE 93899351387 Active Andre Barreto MD Active TOPROL XL 25 MG [id number] Take one by mouth daily METOPROLOL SUCCINATE 98304856038 Active Andre Barreto MD Active PLAVIX 75 MG TABS 1 tablet by mouth daily CLOPIDOGREL BISULFATE 12112502727 Active Andre Barreto MD Active NITROSTAT 0.4 MG SL TAB disolve 1 under tongue repeat if needed NITROGLYCERIN 16974827205 Active Andre Barreto MD Active DICLOFENAC SODIUM 75 MG TBEC 1 tablet by mouth twice daily DICLOFENAC SODIUM 96971678426 No Longer Active Andre Barreto MD Active PROZAC 40 MG CAPS 1 cap by mouth at bedtime FLUOXETINE HCL 29805316345 No Longer Active Andre Barreto MD Active HYDROCODONE-ACETAMINOPHEN 5-325 MG TABS 1 po q 6hr PRN Pain HYDROCODONE-ACETAMINOPHEN 41391541691 No Longer Active Andre Barreto MD Active TRAMADOL HCL 50 MG TABS 2 po q 6 hrs prn TRAMADOL HCL 97408505309 Active David King APRN Active AMBIEN 5 MG TABS 1 po a hs prn ZOLPIDEM TARTRATE 01071647843 Active Andre Barreto MD Active HYDROCODONE-ACETAMINOPHEN 5-325 MG TABS 1 po q 6hr PRN Pain HYDROCODONE-ACETAMINOPHEN 5-325 MG TABS 081991 HYDROCODONE-ACETAMINOPHEN Inactive PROZAC 40 MG CAPS 1 cap by mouth at bedtime PROZAC 40 MG CAPS 117081 FLUOXETINE HCL Inactive DICLOFENAC SODIUM 75 MG TBEC 1 tablet by mouth twice daily DICLOFENAC SODIUM 75 MG TBEC 610374 DICLOFENAC SODIUM Inactive SYMBICORT 160-4.5 MCG/ACT AERO 2 puffs inhaled bid SYMBICORT 160-4.5 MCG/ACT AERO BUDESONIDE-FORMOTEROL FUMARATE Inactive ZOFRAN 4 MG TABS 1 po q6hr PRN Nausea ZOFRAN 4 MG TABS 281081 ONDANSETRON HCL Inactive BETAMETHASONE DIPROPIONATE 0.05 % OINT Apply to affected areas BID for up to 2 weeks BETAMETHASONE DIPROPIONATE 0.05 % OINT 756561 BETAMETHASONE DIPROPIONATE Inactive BENICAR HCT 40-25 MG TABS Take one by mouth daily BENICAR HCT 40-25 MG TABS OLMESARTAN MEDOXOMIL-HCTZ Inactive CIPRO 500 MG TAB 1 tablet by mouth twice daily CIPRO 500 MG TAB 085117 CIPROFLOXACIN HCL Inactive Advance Directives Directive Description [...] ... - Chemistry sodium, serum 140 mmol/L 804-603 0921/06/28 carbon dioxide, venous blood 32.4 mmol/L 21.0-32.0 potassium, serum 4.0 mmol/L 3.5-5.2 chloride, serum 101 mmol/L 98-107 blood glucose 108 mg/dL 65-110 urea nitrogen, blood 20 mg/dL 7-18 creatinine, serum 0.98 mg/dL 0.55-1.30 alanine aminotransferase (SGPT), serum 44 U/L 12-78 aspartate aminotransferase (SGOT), serum 27 U/L 15-37 calcium, serum 9.4 mg/dL 8.5-10.1 bilirubin, serum, total 0.30 mg/dL 0.00-1.00 cholesterol, serum 264 mg/dL 335-430 9850/06/28 triglyceride, serum, fasting 146 mg/dL 30-200 HDL [...] 0-19 Encounters Code Encounter Date Provider Facility CPT-20877 Level 4 Est. Patient 15:24:17 CDT Andre Barreto MD [facility] CPT-87387 Level 3 Est. Patient 10:36:40 CDT Andre Barreto MD [facility] CPT-63770 Level 4 Est. Patient 11:27:43 CDT Andre Barreto MD [facility] CPT-42214 Level 3 Est. Patient 10:57:31 PARKS RECREATION COORDINATOR Andre Barreto MD [facility] CPT-85688 Level 3 Est. Patient 13:53:13 PARKS RECREATION COORDINATOR Andre Barreto MD [facility] CPT-19918 Level 3 Est. Patient 09:16:12 CDT Andre Barreto MD [facility] CPT-21800 Level 3 Est. Patient 14:50:35 CDT Andre Barreto MD [facility] Procedures Code Procedure Name Date Entry Date Standard Description CPT-G0009 Administration of Pneumococcal Vaccine 13:26:57 CDT CPT-98717 Prevnar 13 Intramuscular Suspension 13:26:56 CDT 08/19 CPT-39417 Bone Density - XRAY USE ONLY 09:30:16 CDT CPT-Cryo Cryotherapy 08:59:26 PARKS RECREATION COORDINATOR CPT-Cryo Cryotherapy 08:46:02 CDT CPT-67287 Chest 2V Frontal and Lat 14:02:13 PARKS RECREATION COORDINATOR
--- OUTSIDE RECORDS SUMMARY | 2018-03-16 20:59 | XMS REPORT | Clinical Summary ---
Author Author Admin, EDUARDO Organization [employer] Address Unknown Phone Unavailable Allergies, Adverse Reactions, Alerts Allergy Name Reaction Description Start Date Severity Status Provider SULFA Mild No Longer Active Jillina Frazell PACKER FUSER PENICILLIN Mild No Longer Active Jillina Frazell PACKER FUSER ZINC Mild No Longer Active Jillina Frazell PACKER FUSER SULFA Critical No Longer Active Marcelle Yesi [...] airway pressure rx V46.2 Active Pushpa Hernandez PACKER FUSER Other dependence on machines, supplemental oxygen Osteopenia 733.90 Active Pushpa Hernandez APRN Disorder of bone and cartilage, unspecified Obstructive sleep apnea 327.23 Active Andre Barreto MD Obstructive sleep apnea (adult) (pediatric) Acute exacerbation of chronic bronchitis 491.22 Inactive Solitario Howe MD Obstructive chronic bronchitis with acute bronchitis Sinusitis 473.9 Active David King PACKER FUSER Unspecified sinusitis (chronic) Abscess, skin 682.9 Active [...] Apply to affected area BID 05/18 MUPIROCIN 92765709509 No Longer Active Moira Price MA Active CLINDAMYCIN HCL 300 MG ORAL CAPSULE 1 po QID x 7 days CLINDAMYCIN HCL 10447626328 Active Jillina Frazell PACKER FUSER Active BACTRIM DS 800-160 MG ORAL TABLET 1 tab by mouth twice daily 2017 TRIMETHOPRIM-SULFAMETHOXAZOLE 53443838522 No Longer Active Jillina Frazell PACKER FUSER Active GUAIFENESIN DM 400-20 MG ORAL TABLET 1 pill by mouth twice daily, if needed for cough DEXTROMETHORPHAN-GUAIFENESIN 83783368616 Active Jillina Frazell PACKER FUSER Active CEFDINIR 300 MG ORAL CAPSULE by mouth twice a day CEFDINIR 57024351178 No Longer Active Jillina Frazell PACKER FUSER Active BENZONATATE 200 MG ORAL CAPSULE 1 three times a day as needed for cough 03/27 BENZONATATE 21078421194 No Longer Active Luna Prabhakar Active ZITHROMAX Z-NEVAEH 250 MG ORAL TABLET 2 today and then 1 daily for 4 days 03/27 AZITHROMYCIN 59132898145 No Longer Active Luna Prabhakar Active PREDNISONE 20 MG ORAL TABLET 2 daily for 3 days then 1 daily for 3 days 03/27 PREDNISONE 51999714682 No Longer Active Luna Prabhakar Active ATORVASTATIN CALCIUM 40 MG ORAL TABLET 1 po qHS ATORVASTATIN CALCIUM 83142814395 Active Marcellekala Key RMA Active CLOPIDOGREL BISULFATE 75 MG ORAL TABLET 1 po qd CLOPIDOGREL BISULFATE 36048373632 Active Andre Barreto MD Active FUROSEMIDE 20 MG ORAL TABLET 1 po qd PRN Edema FUROSEMIDE 59708995988 Active Andre Barreto MD Active PROAIR HFA 108 (90 Base) MCG/ACT INHALATION AEROSOL SOLUTION 2 puffs q4hr PRN Shortness of air/Wheezing ALBUTEROL SULFATE 58761201711 Active Andre Barreto MD Active ATORVASTATIN CALCIUM 80 MG ORAL TABLET 1 po qHS ATORVASTATIN CALCIUM 07904262250 No Longer Active Andre Barreto MD Active AMBIEN 5 MG ORAL TABLET 1 po qHS PRN Insomnia ZOLPIDEM TARTRATE 47076546597 Active Andre Barreto MD Active DETROL 2 MG ORAL TABLET 1 po qd TOLTERODINE TARTRATE 50661057415 Active Andre Barreto MD Active NITROGLYCERIN 0.4 MG SUBLINGUAL TABLET SUBLINGUAL 1 SL q5min PRN Chest pain up to 3 doses NITROGLYCERIN 64813706916 Active Andre Barreto MD Active TOPROL XL 50 MG ORAL TABLET EXTENDED RELEASE 24 HOUR 1 po qd METOPROLOL SUCCINATE 38109714033 Active Andre Barreto MD Active SYMBICORT 160-4.5 MCG/ACT INHALATION AEROSOL 2 puff BID BUDESONIDE-FORMOTEROL FUMARATE 17247651461 Active Cayla VERA Active FLUOXETINE HCL 40 MG ORAL CAPSULE 1 po qd FLUOXETINE HCL 51688840009 Active Andre Barreto MD Active BENICAR HCT 40-25 MG ORAL TABLET Take one by mouth daily OLMESARTAN MEDOXOMIL-HCTZ 61058063198 No Longer Active Andre Barreto MD Active LOSARTAN POTASSIUM-HCTZ 100-25 MG ORAL TABLET 1 po qd LOSARTAN POTASSIUM-HCTZ 96460837245 Active Andre Barreto MD Active BETAMETHASONE DIPROPIONATE 0.05 % EXTERNAL OINTMENT Apply to affected areas BID for up to 2 weeks BETAMETHASONE DIPROPIONATE 03596916868 No Longer Active Andre Barreto MD Active ZOFRAN 4 MG ORAL TABLET 1 po q6hr PRN Nausea ONDANSETRON HCL 09599049925 No Longer Active Andre Barreto MD Active CIPRO 500 MG ORAL TABLET 1 tablet by mouth twice daily CIPROFLOXACIN HCL 77220531710 No Longer Active Andre Barreto MD Active SYMBICORT 160-4.5 MCG/ACT INHALATION AEROSOL 2 puffs inhaled bid BUDESONIDE-FORMOTEROL FUMARATE 18980819392 No Longer Active Andre Barreto MD Active DICLOFENAC SODIUM 75 MG ORAL TABLET DELAYED RELEASE 1 tablet by mouth twice daily DICLOFENAC SODIUM 44613507920 No Longer Active Andre Barreto MD Active PROZAC 40 MG ORAL CAPSULE 1 cap by mouth at bedtime FLUOXETINE HCL 18844395059 No Longer Active Andre Barreto MD Active HYDROCODONE-ACETAMINOPHEN 5-325 MG ORAL TABLET 1 po q 6hr PRN Pain HYDROCODONE-ACETAMINOPHEN 11302110690 No Longer Active Andre Barreto MD Active TRAMADOL HCL 50 MG ORAL TABLET 2 po q 6 hrs prn TRAMADOL HCL 82088989582 Active Andre Barreto MD Active HYDROCODONE-ACETAMINOPHEN 5-325 MG ORAL TABLET 1 po q 6hr PRN Pain HYDROCODONE-ACETAMINOPHEN 5-325 MG ORAL TABLET 913577 HYDROCODONE- ACETAMINOPHEN Inactive PROZAC 40 MG ORAL CAPSULE 1 cap by mouth at bedtime PROZAC 40 MG ORAL CAPSULE 467618 FLUOXETINE HCL Inactive DICLOFENAC SODIUM 75 MG ORAL TABLET DELAYED RELEASE 1 tablet by mouth twice daily DICLOFENAC SODIUM 75 MG ORAL TABLET DELAYED RELEASE 467418 DICLOFENAC SODIUM Inactive SYMBICORT 160-4.5 MCG/ACT INHALATION AEROSOL 2 puffs inhaled bid SYMBICORT 160-4.5 MCG/ACT INHALATION AEROSOL BUDESONIDE-FORMOTEROL FUMARATE Inactive ZOFRAN 4 MG ORAL TABLET 1 po q6hr PRN Nausea ZOFRAN 4 MG ORAL TABLET 926497 ONDANSETRON HCL Inactive BETAMETHASONE DIPROPIONATE 0.05 % EXTERNAL OINTMENT Apply to affected areas BID for up to 2 weeks BETAMETHASONE DIPROPIONATE 0.05 % EXTERNAL OINTMENT 467759 BETAMETHASONE DIPROPIONATE Inactive BENICAR HCT 40-25 MG ORAL TABLET Take one by mouth daily BENICAR HCT 40-25 MG ORAL TABLET 985242 OLMESARTAN MEDOXOMIL-HCTZ Inactive ATORVASTATIN CALCIUM 80 MG ORAL TABLET 1 po qHS ATORVASTATIN CALCIUM 80 MG ORAL TABLET 099973 ATORVASTATIN CALCIUM Inactive PREDNISONE 20 MG ORAL TABLET 2 daily for 3 days then 1 daily for 3 days 03/27 PREDNISONE 20 MG ORAL TABLET 952139 PREDNISONE Inactive ZITHROMAX Z-NEVAEH 250 MG ORAL TABLET 2 today and then 1 daily for 4 days 03/27 ZITHROMAX Z-NEVAEH 250 MG ORAL TABLET 407777 AZITHROMYCIN Inactive BENZONATATE 200 MG ORAL CAPSULE 1 three times a day as needed for cough 03/27 BENZONATATE 200 MG ORAL CAPSULE 933168 BENZONATATE Inactive BACTRIM DS 800-160 MG ORAL TABLET 1 tab by mouth twice daily 2017 BACTRIM DS 800-160 MG ORAL TABLET 634921 TRIMETHOPRIM- SULFAMETHOXAZOLE Inactive BACTROBAN 2 % EXTERNAL OINTMENT Apply to affected area BID 05/18 BACTROBAN 2 % EXTERNAL OINTMENT 040112 MUPIROCIN Inactive CIPRO 500 MG ORAL TABLET 1 tablet by mouth twice daily CIPRO 500 MG ORAL TABLET 817891 CIPROFLOXACIN HCL Inactive CEFDINIR 300 MG ORAL CAPSULE by mouth twice a day CEFDINIR 300 MG ORAL CAPSULE 545916 CEFDINIR Inactive Advance Directives Directive Description Start [...] 6.2 % 4.3-6.0 cholesterol, serum 229 mg/dL 440-995 3886/07/24 triglyceride, serum, fasting 106 mg/dL 30-200 HDL cholesterol, serum 60 mg/dL 32-60 LDL cholesterol, serum 148 mg/dL 0-130 sodium, serum 139 mmol/L 898-852 6669/07/24 carbon dioxide, venous blood 34.8 mmol/L 21.0-32.0 [...] Panel - Chemistry cholesterol, serum 275 mg/dL 222-149 3346/11/07 triglyceride, serum, fasting 166 mg/dL 30-200 HDL cholesterol, serum 62 mg/dL 32-60 LDL cholesterol, serum 180 mg/dL 0-130 sodium, serum 141 mmol/L 839-216 0779/11/07 carbon dioxide, venous blood 26.3 mmol/L 21.0-32.0 [...] 0-19 Encounters Code Encounter Date Provider Facility CPT-32236 Level 3 Est. Patient 14:06:16 CDT Andre Barreto MD [facility] CPT-49669 Level 3 Est. Patient 09:16:36 CDT David King [facility] CPT-40741 Level 3 Est. Patient 09:24:01 SPACE SYSTEMS OPERATIONS CRAFTSMAN David King [facility] CPT-25664 Level 3 Est. Patient 13:01:07 SPACE SYSTEMS OPERATIONS CRAFTSMAN Solitario Howe MD [facility] CPT-45661 Level 4 Est. Patient 10:26:48 SPACE SYSTEMS OPERATIONS CRAFTSMAN Andre Barreto MD [facility] CPT-85120 Level 4 Est. Patient 09:45:06 CDT Andre Barreto MD [facility] CPT-71978 Level 4 Est. Patient 11:53:39 SPACE SYSTEMS OPERATIONS CRAFTSMAN Andre Barreto MD [facility] CPT-89808 Level 4 Est. Patient 14:21:31 CDT Andre Barreto MD [facility] CPT-02590 Level 4 Est. Patient 15:24:17 CDT Andre Barreto MD [facility] CPT-52438 Level 3 Est. Patient 10:36:40 CDT Andre Barreto MD [facility] CPT-75944 Level 4 Est. Patient 11:27:43 CDT Andre Barreto MD [facility] CPT-07516 Level 3 Est. Patient 10:57:31 SPACE SYSTEMS OPERATIONS CRAFTSMAN Andre Barreto MD [facility] CPT-20835 Level 3 Est. Patient 13:53:13 SPACE SYSTEMS OPERATIONS CRAFTSMAN Andre Barreto MD [facility] CPT-49688 Level 3 Est. Patient 09:16:12 CDT Andre Barreto MD [facility] CPT-87149 Level 3 Est. Patient 14:50:35 CDT Andre Barreto MD [facility] Procedures Code Procedure Name Date Entry Date Standard Description CPT-33140 Sono pelvis coley bladder only - XRAY USE ONLY 15:07:39 CDT CPT-77910 First Vx - Ix admin for Medicare patients 13:56:44 SPACE SYSTEMS OPERATIONS CRAFTSMAN CPT-15149 Zostavax Subcutaneous Solution Reconstituted 53703 UNT/0.65ML 12/22 13:56:44 SPACE SYSTEMS OPERATIONS CRAFTSMAN CPT-G0009 Administration of Pneumococcal Vaccine 10:12:50 CDT CPT-56020 Pneumovax 23 Injection Injectable 25 MCG/0.5ML 10:12:50 CDT CPT-G0439 Subsequent Annual Wellness Exam 09:49:25 CDT CPT-32875 First Vx - Ix admin for Medicare patients 17:55:11 SPACE SYSTEMS OPERATIONS CRAFTSMAN CPT-10648 Fluzone High-Dose Intramuscular Suspension 17:55:11 SPACE SYSTEMS OPERATIONS CRAFTSMAN CPT-70562 Venipuncture Draw Fee 14:11:36 CDT CPT-06035 Lipid - LAB USE ONLY 14:11:36 CDT CPT-91349 CMP - LAB USE ONLY 14:11:36 CDT CPT-G0438 Initial Annual Wellness Exam 13:29:06 CDT CPT-G0009 Administration of Pneumococcal Vaccine 13:26:57 CDT CPT-76536 Prevnar 13 Intramuscular Suspension 13:26:56 CDT 08/19 CPT-26226 Bone Density - XRAY USE ONLY 09:30:16 CDT CPT-Cryo Cryotherapy 08:59:26 SPACE SYSTEMS OPERATIONS CRAFTSMAN CPT-Cryo Cryotherapy 08:46:02 CDT CPT-80467 Chest 2V Frontal and Lat 14:02:13 SPACE SYSTEMS OPERATIONS CRAFTSMAN
--- OUTSIDE RECORDS SUMMARY | 2018-03-16 21:00 | XMS REPORT | Clinical Summary ---
Author Author Admin, EDUARDO Organization [facility] Address Unknown Phone Allergies, Adverse Reactions, Alerts Allergy Name Reaction [...] unspecified type of vessel, [place] or graft OBSTRUCTIVE SLEEP APNEA 327.23 Active Andre Barreto MD Obstructive sleep apnea (adult) (pediatric) HEALTH SCREENING V70.0 Active Andre Barreto MD Routine general medical examination at a health care facility Fever 780.60 Resolved Andre Barreto MD Fever, unspecified Actinic keratosis 702.0 Active Andre Barreto MD Actinic keratosis Seborrheic keratosis 702.19 Active Andre Barreto MD Other seborrheic keratosis Skin tag 701.9 Active Andre Barreto MD Unspecified hypertrophic and atrophic conditions of skin DYSPNEA ICD-786.09 Inactive Andre Barreto MD 2012 FATIGUE ICD-780.79 Inactive Andre Barreto MD 2012 DYSPNEA ICD-786.05 Inactive Andre Barreto MD 2012 Fever ICD-780.60 Inactive Andre Barreto MD 05/23 Medication List Medication Instructions Start Date Stop Date Generic Name NDC Status Provider Patient Instruction ZOFRAN 4 MG TABS 1 po q6hr PRN Nausea ONDANSETRON HCL 70832314060 No Longer Active Andre Barreto MD Active CIPRO 500 MG TAB 1 tablet by mouth twice daily CIPROFLOXACIN HCL 91705401380 No Longer Active Andre Barreto MD Active SYMBICORT 160-4.5 MCG/ACT AERO 2 puffs inhaled bid BUDESONIDE- FORMOTEROL FUMARATE 20759637751 No Longer Active Andre Barreto MD Active LIPITOR 40 MG TAB Take 1.5 tab by mouth daily ATORVASTATIN CALCIUM 30783469473 Active Andre Barreto MD Active LASIX 20 MG TAB 1 tablet by mouth daily PRN FUROSEMIDE 97968814760 Active Andre Barreto MD Active TOPROL XL 25 MG [id number] Take one by mouth daily METOPROLOL SUCCINATE 54462660684 Active Andre Barreto MD Active PLAVIX 75 MG TABS 1 tablet by mouth daily CLOPIDOGREL BISULFATE 79221179828 Active Andre Barreto MD Active NITROSTAT 0.4 MG SL TAB disolve 1 under tongue repeat if needed NITROGLYCERIN 29827400836 Active Andre Barreto MD Active DICLOFENAC SODIUM 75 MG TBEC 1 tablet by mouth twice daily DICLOFENAC SODIUM 76481356258 No Longer Active Andre Barreto MD Active FLUOXETINE HCL 20 MG CAPS TAKE 3 CAPSULES BY MOUTH ONCE DAILY. FLUOXETINE HCL 72304906078 Active Andre Barreto MD Active PROZAC 40 MG CAPS 1 cap by mouth at bedtime FLUOXETINE HCL 00342153668 No Longer Active Andre Barreto MD Active HYDROCODONE-ACETAMINOPHEN 5-325 MG TABS 1 po q 6hr PRN Pain HYDROCODONE-ACETAMINOPHEN 15777659065 No Longer Active Andre Barreto MD Active TRAMADOL HCL 50 MG TABS 2 po q 6 hrs prn TRAMADOL HCL 77033442779 Active Andre Barreto MD Active AMBIEN 5 MG TABS 1 po a hs prn ZOLPIDEM TARTRATE 83315118884 Active Andre Barreto MD Active BENICAR HCT 40-25 MG TABS Take one by mouth daily OLMESARTAN MEDOXOMIL- HCTZ 16433311053 Active Andre Barreto MD Active HYDROCODONE-ACETAMINOPHEN 5-325 MG TABS 1 po q 6hr PRN Pain HYDROCODONE-ACETAMINOPHEN 5-325 MG TABS 915975 HYDROCODONE-ACETAMINOPHEN Inactive PROZAC 40 MG CAPS 1 cap by mouth at bedtime PROZAC 40 MG CAPS 230266 FLUOXETINE HCL Inactive DICLOFENAC SODIUM 75 MG TBEC 1 tablet by mouth twice daily DICLOFENAC SODIUM 75 MG TBEC 276555 DICLOFENAC SODIUM Inactive SYMBICORT 160-4.5 MCG/ACT AERO 2 puffs inhaled bid SYMBICORT 160-4.5 MCG/ACT AERO BUDESONIDE-FORMOTEROL FUMARATE Inactive ZOFRAN 4 MG TABS 1 po q6hr PRN Nausea ZOFRAN 4 MG TABS 766975 ONDANSETRON HCL Inactive CIPRO 500 MG TAB 1 tablet by mouth twice daily CIPRO 500 MG TAB 994890 CIPROFLOXACIN HCL Inactive Vital Signs Date Name Value Unit Range Description blood pressure, diastolic 87 mm[Hg] BP pat blood pressure, systolic 146 mm[Hg] BP sys height E&M 63 [in_us] Bdy height pulse rate E&M 79 /min Heart rate temperature E&M 98.5 [degF] Body temperature weight E&M 278.38 [lb_av] Weight Measured blood pressure, diastolic 87 mm[Hg] BP pat blood pressure, systolic 159 mm[Hg] BP sys height E&M 63 [in_us] Bdy height pulse rate E&M 89 /min Heart rate temperature E&M 101.6 [degF] Body temperature weight E&M 274.25 [lb_av] Weight Measured Diagnostic Results Date Name Value Unit Range Description Lab Report: CBC W/DIFF, Comp. Metabolic Panel, NAYELY INFLUENZA A/B, Myco ... - Chemistry sodium, serum 138 mmol/L 317-257 4421/02/28 potassium, serum 4.1 mmol/L 3.5-5.2 chloride, serum 98 mmol/L 98-107 carbon dioxide, venous blood 31.6 mmol/L 21.0-32.0 blood glucose 113 mg/dL 65-110 urea nitrogen, blood 11 mg/dL 7-18 creatinine, serum 1.00 mg/dL 0.60-1.30 alanine aminotransferase (SGPT), serum 71 U/L 12-78 aspartate aminotransferase (SGOT), serum 39 U/L 15-37 alkaline phosphatase, serum 164 U/L 50-136 calcium, serum 8.5 mg/dL 8.5-10.1 bilirubin, serum, total 0.50 mg/dL 0.00-1.00 protein, total urine random 1+ mg/dL Negative RBC, urine, dipstick 1+ Negative Lab Report: CBC W/DIFF, Comp. Metabolic Panel, NAYELY INFLUENZA A/B, Myco ... - Hematology leukocyte count, blood 12.4 10^3/MM^3 10*3/mm3 4.6-10.2 neutrophils as percent of blood leukocytes 73.6 % 42.2-75.2 monocytes as percent of blood leukocytes 10.1 % 1.7-9.3 lymphocytes as percent of blood leukocytes 14.5 % 20.5-51.1 erythrocyte (RBC) count 4.08 10^6/MM^3 10*6/mm3 4.04-5.48 hemoglobin, blood 12.9 g/dL 12.0-16.0 hematocrit, blood 38.8 % 36.0-46.0 mean corpuscular volume, RBC 95 fL 80-97 mean corpuscular hemoglobin, RBC 31.5 pg 27.0-31.2 mean corpuscular hemoglobin concentration, RBC 33.1 G/DL % 31.8- 35.4 red blood cell distribution width 13.2 % 11.6-14.8 platelet count 252 10^3/MM^3 10*3/mm3 142-424 Lab Report: CBC W/DIFF, Comp. Metabolic Panel, NAYELY INFLUENZA A/B, Myco ... - Toxicology rapid flu test Negative Negative Lab Report: CBC W/DIFF, Comp. Metabolic Panel, NAYELY INFLUENZA A/B, Myco ... - Urinalysis urine color Yellow Colorless;Lightyellow;Straw;Yellow appearance, urine Clear Clear specific gravity, urine 1.020 1.000-1.030 pH, urine, semiquantitative 6.0 5.0-8.5 urobilinogen, urine, semiquantitative (dipstick) 0.2 Normal leukocyte esterase, urine, by dipstick 2+ Negative nitrite, urine, semiquantitative Positive Negative glucose, urine, semiquantitative Negative Negative ketones, urine, by test strip Negative Negative bilirubin, urine Negative Negative Lab Report: CBC, Comp. Metabolic Panel, CPK, Lipid Panel, MICROALBUMIN, ... - Chemistry albumin/creatinine ratio, urine < 30 mg/g mg/g{creat} 0-29 thyroid stimulating hormone, serum 3770 u[iU]/mL Units converted. See lab report for original value. thyroxine, serum, free 0.79 ng/dL 0.76-1.46 sodium, serum 142 mmol/L 779-205 9291/10/01 potassium, serum 4.0 mmol/L 3.5-5.2 chloride, serum 103 mmol/L 98-107 carbon dioxide, venous blood 28.1 mmol/L 21.0-32.0 blood glucose 112 mg/dL 65-110 urea nitrogen, blood 14 mg/dL 7-18 creatinine, serum 0.90 mg/dL 0.60-1.30 alanine aminotransferase (SGPT), serum 44 U/L 12-78 aspartate aminotransferase (SGOT), serum 24 U/L 15-37 alkaline phosphatase, serum 159 U/L 50-136 calcium, serum 8.8 mg/dL 8.5-10.1 bilirubin, serum, total 0.50 mg/dL 0.00-1.00 cholesterol, serum 179 mg/dL 747-425 3593/10/01 triglyceride, serum, fasting 123 mg/dL 30-200 HDL cholesterol, serum 55 mg/dL 32-96 LDL cholesterol, serum 99 mg/dL 0-130 Lab Report: CBC, Comp. Metabolic Panel, CPK, Lipid Panel, MICROALBUMIN, ... - Hematology leukocyte count, blood 6.0 10^3/MM^3 10*3/mm3 4.6-10.2 erythrocyte (RBC) count 4.39 10^6/MM^3 10*6/mm3 4.04-5.48 hemoglobin, blood 13.5 g/dL 12.0-16.0 hematocrit, blood 41.7 % 36.0-46.0 mean corpuscular volume, RBC 95 fL 80-97 mean corpuscular hemoglobin, RBC 30.8 pg 27.0-31.2 mean corpuscular hemoglobin concentration, RBC 32.5 G/DL % 31.8- 35.4 red blood cell distribution width 13.7 % 11.6-14.8 platelet count 248 10^3/MM^3 10*3/mm3 142-424 Lab Report: CBC, Comp. Metabolic Panel, CPK, Lipid Panel, MICROALBUMIN, ... - Lab microalbumin, urine 30 0-19 Lab Report: RapidStrep Rflx/Cx - Microbiology Microbial identification kit, rapid strep method Negative-Throat Culture to Follow Negative Encounters Code Encounter Date Provider Facility CPT-58655 Level 3 Est. Patient 13:53:13 MATERIAL ANALYST Andre Barreto MD [facility] CPT-46810 Level 3 Est. Patient 09:16:12 CDT Andre Barreto MD [facility] CPT-49235 Level 3 Est. Patient 14:50:35 CDT Andre Barreto MD [facility] Procedures Code Procedure Name Date Entry Date Standard Description CPT-Cryo Cryotherapy 08:46:02 CDT CPT-38540 Chest 2V Frontal and Lat 14:02:13 MATERIAL ANALYST
--- OUTSIDE RECORDS SUMMARY | 2018-03-16 21:00 | XMS REPORT | Clinical Summary ---
Author Author Admin, EDUARDO Organization [facility] Address Unknown Phone Allergies, Adverse Reactions, Alerts [...] Coronary atherosclerosis of unspecified type of vessel, [place] or graft OBSTRUCTIVE SLEEP APNEA 327.23 Active [...] 1 po q6hr PRN Nausea ONDANSETRON HCL 08556390919 No Longer Active Andre Barreto MD Active CIPRO 500 MG TAB 1 tablet by mouth twice daily CIPROFLOXACIN HCL 78458516330 No Longer Active Andre Barreto MD Active SYMBICORT 160-4.5 MCG/ACT AERO 2 puffs inhaled bid BUDESONIDE- FORMOTEROL FUMARATE 72555235413 No Longer Active Andre Barreto MD Active LIPITOR 40 MG TAB Take 1.5 tab by mouth daily ATORVASTATIN CALCIUM 07626973453 Active Andre Barreto MD Active LASIX 20 MG TAB 1 tablet by mouth daily PRN FUROSEMIDE 06685220584 Active Andre Barreto MD Active TOPROL XL 25 MG [id number] Take one by mouth daily METOPROLOL SUCCINATE 86828501500 Active Andre Barreto MD Active PLAVIX 75 MG TABS 1 tablet by mouth daily CLOPIDOGREL BISULFATE 73598636836 Active Andre Barreto MD Active NITROSTAT 0.4 MG SL TAB disolve 1 under tongue repeat if needed NITROGLYCERIN 06740030442 Active Andre Barreto MD Active DICLOFENAC SODIUM 75 MG TBEC 1 tablet by mouth twice daily DICLOFENAC SODIUM 58283284120 No Longer Active Andre Barreto MD Active FLUOXETINE HCL 20 MG CAPS TAKE 3 CAPSULES BY MOUTH ONCE DAILY. FLUOXETINE HCL 43223156457 Active Andre Barreto MD Active PROZAC 40 MG CAPS 1 cap by mouth at bedtime FLUOXETINE HCL 71020730507 No Longer Active Andre Barreto MD Active HYDROCODONE-ACETAMINOPHEN 5-325 MG TABS 1 po q 6hr PRN Pain HYDROCODONE-ACETAMINOPHEN 06063595733 No Longer Active Andre Barreto MD Active TRAMADOL HCL 50 MG TABS 2 po q 6 hrs prn TRAMADOL HCL 86659215145 Active Andre Barreto MD Active AMBIEN 5 MG TABS 1 po a hs prn ZOLPIDEM TARTRATE 15324835020 Active Andre Barreto MD Active BENICAR HCT 40-25 MG TABS Take one by mouth daily OLMESARTAN MEDOXOMIL- HCTZ 82653880926 Active Andre Barreto MD Active HYDROCODONE-ACETAMINOPHEN 5-325 MG TABS 1 po q 6hr PRN Pain HYDROCODONE-ACETAMINOPHEN 5-325 MG TABS 114135 HYDROCODONE-ACETAMINOPHEN Inactive PROZAC 40 MG CAPS 1 cap by mouth at bedtime PROZAC 40 MG CAPS 070018 FLUOXETINE HCL Inactive DICLOFENAC SODIUM 75 MG TBEC 1 tablet by mouth twice daily DICLOFENAC SODIUM 75 MG TBEC 447188 DICLOFENAC SODIUM Inactive SYMBICORT 160-4.5 MCG/ACT AERO 2 puffs inhaled bid SYMBICORT 160-4.5 MCG/ACT AERO BUDESONIDE-FORMOTEROL FUMARATE Inactive ZOFRAN 4 MG TABS 1 po q6hr PRN Nausea ZOFRAN 4 MG TABS 999865 ONDANSETRON HCL Inactive CIPRO 500 MG TAB 1 tablet by mouth twice daily CIPRO 500 MG TAB 540170 CIPROFLOXACIN HCL Inactive Vital Signs Date Name [...] ... - Chemistry sodium, serum 138 mmol/L 159-516 9012/02/28 potassium, serum 4.1 mmol/L 3.5-5.2 chloride, serum [...] 0.79 ng/dL 0.76-1.46 sodium, serum 142 mmol/L 100-736 3672/10/01 potassium, serum 4.0 mmol/L 3.5-5.2 chloride, serum [...] 0.50 mg/dL 0.00-1.00 cholesterol, serum 179 mg/dL 252-961 0608/10/01 triglyceride, serum, fasting 123 mg/dL 30-200 HDL [...] Negative Encounters Code Encounter Date Provider Facility CPT-76772 Level 3 Est. Patient 13:53:13 CFD ENGINEER Andre Barreto MD [facility] CPT-05118 Level 3 Est. Patient 09:16:12 CDT Andre Barreto MD [facility] CPT-76902 Level 3 Est. Patient 14:50:35 CDT Andre Barreto MD [facility] Procedures Code Procedure Name Date Entry Date Standard Description CPT-Cryo Cryotherapy 08:46:02 CDT CPT-87478 Chest 2V Frontal and Lat 14:02:13 CFD ENGINEER
--- OUTSIDE RECORDS SUMMARY | 2018-03-16 21:01 | XMS REPORT | Clinical Summary ---
Author Author Admin, E Organization [facility] Address Unknown Phone Unavailable Allergies, Adverse [...] unspecified type of vessel, [place] or graft OBSTRUCTIVE SLEEP APNEA 327.23 [...] 1 tab by mouth daily ATORVASTATIN CALCIUM 98788568995 Active Andre Barreto MD Active ZOFRAN 4 MG TABS 1 po q6hr PRN Nausea ONDANSETRON HCL 50279553602 No Longer Active Andre Barreto MD Active CIPRO 500 MG TAB 1 tablet by mouth twice daily CIPROFLOXACIN HCL 47742621298 No Longer Active Andre Barreto MD Active SYMBICORT 160-4.5 MCG/ACT AERO 2 puffs inhaled bid BUDESONIDE- FORMOTEROL FUMARATE 16689193242 No Longer Active Andre Barreto MD Active LASIX 20 MG TAB 1 tablet by mouth daily PRN FUROSEMIDE 17299190373 Active Andre Barreto MD Active TOPROL XL 25 MG [id number] Take one by mouth daily METOPROLOL SUCCINATE 83970993457 Active Andre Barreto MD Active PLAVIX 75 MG TABS 1 tablet by mouth daily CLOPIDOGREL BISULFATE 90491901656 Active Andre Barreto MD Active NITROSTAT 0.4 MG SL TAB disolve 1 under tongue repeat if needed NITROGLYCERIN 69657757694 Active Andre Barreto MD Active DICLOFENAC SODIUM 75 MG TBEC 1 tablet by mouth twice daily DICLOFENAC SODIUM 86366913949 No Longer Active Andre Barreto MD Active FLUOXETINE HCL 20 MG CAPS TAKE 3 CAPSULES BY MOUTH ONCE DAILY. FLUOXETINE HCL 03942274686 Active Andre Barreto MD Active PROZAC 40 MG CAPS 1 cap by mouth at bedtime FLUOXETINE HCL 34635574516 No Longer Active Andre Barreto MD Active HYDROCODONE-ACETAMINOPHEN 5-325 MG TABS 1 po q 6hr PRN Pain HYDROCODONE-ACETAMINOPHEN 92022560652 No Longer Active Andre Barreto MD Active TRAMADOL HCL 50 MG TABS 2 po q 6 hrs prn TRAMADOL HCL 03186885432 Active Andre Barreto MD Active AMBIEN 5 MG TABS 1 po a hs prn ZOLPIDEM TARTRATE 90895588873 Active Andre Barreto MD Active BENICAR HCT 40-25 MG TABS Take one by mouth daily OLMESARTAN MEDOXOMIL- HCTZ 85175010177 Active Andre Barreto MD Active HYDROCODONE-ACETAMINOPHEN 5-325 MG TABS 1 po q 6hr PRN Pain HYDROCODONE-ACETAMINOPHEN 5-325 MG TABS 048290 HYDROCODONE-ACETAMINOPHEN Inactive PROZAC 40 MG CAPS 1 cap by mouth at bedtime PROZAC 40 MG CAPS 336016 FLUOXETINE HCL Inactive DICLOFENAC SODIUM 75 MG TBEC 1 tablet by mouth twice daily DICLOFENAC SODIUM 75 MG TBEC 179086 DICLOFENAC SODIUM Inactive SYMBICORT 160-4.5 MCG/ACT AERO 2 puffs inhaled bid SYMBICORT 160-4.5 MCG/ACT AERO BUDESONIDE-FORMOTEROL FUMARATE Inactive ZOFRAN 4 MG TABS 1 po q6hr PRN Nausea ZOFRAN 4 MG TABS 886343 ONDANSETRON HCL Inactive CIPRO 500 MG TAB 1 tablet by mouth twice daily CIPRO 500 MG TAB 383824 CIPROFLOXACIN HCL Inactive Vital Signs Date Name [...] E&M - 3141-9 276.2 [lb_av] Weight Measured blood pressure, diastolic - 8462-4 87 mm[Hg] BP pat blood pressure, systolic - 8480-6 146 mm[Hg] BP sys height E&M - 8302-2 63 [in_us] Bdy height pulse rate E&M - 8867-4 79 /min Heart rate temperature E&M 98.5 [degF] Body temperature weight E&M - 3141-9 278.38 [lb_av] Weight Measured Diagnostic Results Date Name Value Unit Range Description Lab Report: Comp. Metabolic Panel, Lipid Panel, CBC W/DIFF - Chemistry sodium, serum 145 mmol/L 798-031 5812/12/19 potassium, serum 4.3 mmol/L 3.5-5.2 chloride, serum 104 mmol/L 98-107 carbon dioxide, venous blood 29.9 mmol/L 21.0-32.0 blood glucose 121 mg/dL 65-110 urea nitrogen, blood 17 mg/dL 7-18 creatinine, serum 1.20 mg/dL 0.60-1.30 alanine aminotransferase (SGPT), serum 40 U/L 12-78 aspartate aminotransferase (SGOT), serum 25 U/L 15-37 calcium, serum 9.2 mg/dL 8.5-10.1 bilirubin, serum, total 0.50 mg/dL 0.00-1.00 cholesterol, serum 174 mg/dL 619-999 4767/12/19 triglyceride, serum, fasting 129 mg/dL 30-200 HDL [...] 4.3-6.0 Encounters Code Encounter Date Provider Facility CPT-89911 Level 3 Est. Patient 10:57:31 INFUSION NURSE Andre Barreto MD [facility] CPT-58957 Level 3 Est. Patient 13:53:13 INFUSION NURSE Andre Barreto MD [facility] CPT-19097 Level 3 Est. Patient 09:16:12 CDT Andre Barreto MD [facility] CPT-01051 Level 3 Est. Patient 14:50:35 CDT Andre Barreto MD [facility] Procedures Code Procedure Name Date Entry Date Standard Description CPT-Cryo Cryotherapy 08:59:26 INFUSION NURSE CPT-Cryo Cryotherapy 08:46:02 CDT CPT-74815 Chest 2V Frontal and Lat 14:02:13 INFUSION NURSE
--- OUTSIDE RECORDS SUMMARY | 2018-03-16 21:01 | XMS REPORT | Clinical Summary ---
Author Author Admin, E Organization [facility] Address Unknown Phone Unavailable [...] Coronary atherosclerosis of unspecified type of vessel, [place] or graft OBSTRUCTIVE SLEEP APNEA 327.23 Active [...] Elevated blood sugar 790.29 Active Marcelle Key RMIsabella Other abnormal glucose DYSPNEA ICD-786.09 Inactive Andre Barreto MD 2012 FATIGUE ICD-780.79 Inactive Andre Barreto MD 2012 DYSPNEA ICD-786.05 Inactive Andre Barreto MD 2012 Fever ICD-780.60 Inactive Andre Barreto MD 05/23 Medication List Medication Instructions Start Date Stop Date Generic Name NDC Status Provider Patient Instruction LIPITOR 40 MG TAB Take 1 tab by mouth daily ATORVASTATIN CALCIUM 97041351241 Active Andre Barreto MD Active ZOFRAN 4 MG TABS 1 po q6hr PRN Nausea ONDANSETRON HCL 17589364656 No Longer Active Andre Barreto MD Active CIPRO 500 MG TAB 1 tablet by mouth twice daily CIPROFLOXACIN HCL 70099594444 No Longer Active Andre Barreto MD Active SYMBICORT 160-4.5 MCG/ACT AERO 2 puffs inhaled bid BUDESONIDE- FORMOTEROL FUMARATE 00055604790 No Longer Active Andre Barreto MD Active LASIX 20 MG TAB 1 tablet by mouth daily PRN FUROSEMIDE 34047355457 Active Andre Barreto MD Active TOPROL XL 25 MG [id number] Take one by mouth daily METOPROLOL SUCCINATE 26802632428 Active Andre Barreto MD Active PLAVIX 75 MG TABS 1 tablet by mouth daily CLOPIDOGREL BISULFATE 18122789926 Active Andre Barreto MD Active NITROSTAT 0.4 MG SL TAB disolve 1 under tongue repeat if needed NITROGLYCERIN 83116922068 Active Andre Barreto MD Active DICLOFENAC SODIUM 75 MG TBEC 1 tablet by mouth twice daily DICLOFENAC SODIUM 16386825023 No Longer Active Andre Barreto MD Active FLUOXETINE HCL 20 MG CAPS TAKE 3 CAPSULES BY MOUTH ONCE DAILY. FLUOXETINE HCL 18959993760 Active Andre Barreto MD Active PROZAC 40 MG CAPS 1 cap by mouth at bedtime FLUOXETINE HCL 68070904630 No Longer Active Andre Barreto MD Active HYDROCODONE-ACETAMINOPHEN 5-325 MG TABS 1 po q 6hr PRN Pain HYDROCODONE-ACETAMINOPHEN 12795393470 No Longer Active Andre Barreto MD Active TRAMADOL HCL 50 MG TABS 2 po q 6 hrs prn TRAMADOL HCL 63456767367 Active Andre Barreto MD Active AMBIEN 5 MG TABS 1 po a hs prn ZOLPIDEM TARTRATE 71751370103 Active Andre Barreto MD Active BENICAR HCT 40-25 MG TABS Take one by mouth daily OLMESARTAN MEDOXOMIL- HCTZ 04997726723 Active Andre Barreto MD Active HYDROCODONE-ACETAMINOPHEN 5-325 MG TABS 1 po q 6hr PRN Pain HYDROCODONE-ACETAMINOPHEN 5-325 MG TABS 984716 HYDROCODONE-ACETAMINOPHEN Inactive PROZAC 40 MG CAPS 1 cap by mouth at bedtime PROZAC 40 MG CAPS 788130 FLUOXETINE HCL Inactive DICLOFENAC SODIUM 75 MG TBEC 1 tablet by mouth twice daily DICLOFENAC SODIUM 75 MG TBEC 913970 DICLOFENAC SODIUM Inactive SYMBICORT 160-4.5 MCG/ACT AERO 2 puffs inhaled bid SYMBICORT 160-4.5 MCG/ACT AERO BUDESONIDE-FORMOTEROL FUMARATE Inactive ZOFRAN 4 MG TABS 1 po q6hr PRN Nausea ZOFRAN 4 MG TABS 730397 ONDANSETRON HCL Inactive CIPRO 500 MG TAB 1 tablet by mouth twice daily CIPRO 500 MG TAB 209250 CIPROFLOXACIN HCL Inactive Vital Signs Date Name [...] E&M - 3141-9 278.38 [lb_av] Weight Measured blood pressure, diastolic - 8462-4 87 mm[Hg] BP pat blood pressure, systolic - 8480-6 159 mm[Hg] BP sys height E&M - 8302-2 63 [in_us] Bdy height pulse rate E&M - 8867-4 89 /min Heart rate temperature E&M 101.6 [degF] Body temperature weight E&M - 3141-9 274.25 [lb_av] Weight Measured Diagnostic Results Date Name Value Unit Range Description Lab Report: CBC W/DIFF, Comp. Metabolic Panel, NAYELY INFLUENZA A/B, Myco ... - Chemistry RBC, urine, dipstick 1+ Negative sodium, serum 138 mmol/L 197-480 0606/02/28 potassium, serum 4.1 mmol/L 3.5-5.2 chloride, serum [...] protein, total urine random 1+ mg/dL Negative Lab Report: CBC W/DIFF, Comp. Metabolic [...] 1.020 1.000-1.030 pH, urine, semiquantitative 6.0 5.0-8.5 glucose, urine, semiquantitative Negative Negative ketones, urine, by test strip Negative Negative bilirubin, urine Negative Negative urobilinogen, urine, semiquantitative (dipstick) 0.2 Normal leukocyte esterase, urine, by dipstick 2+ Negative nitrite, urine, semiquantitative Positive Negative Lab Report: Comp. Metabolic Panel, Lipid Panel, CBC W/DIFF - Chemistry sodium, serum 145 mmol/L 901-482 5191/12/19 potassium, serum 4.3 mmol/L 3.5-5.2 chloride, serum 104 mmol/L 98-107 carbon dioxide, venous blood 29.9 mmol/L 21.0-32.0 blood glucose 121 mg/dL 65-110 urea nitrogen, blood 17 mg/dL 7-18 creatinine, serum 1.20 mg/dL 0.60-1.30 alanine aminotransferase (SGPT), serum 40 U/L 12-78 aspartate aminotransferase (SGOT), serum 25 U/L 15-37 calcium, serum 9.2 mg/dL 8.5-10.1 bilirubin, serum, total 0.50 mg/dL 0.00-1.00 cholesterol, serum 174 mg/dL 677-654 8369/12/19 triglyceride, serum, fasting 129 mg/dL 30-200 HDL [...] % of total hemoglobin 5.9 % 4.3-6.0 Lab Report: RapidStrep Rflx/Cx - Lab Microbial identification kit, rapid strep method Negative-Throat Culture to Follow Negative Encounters Code Encounter Date Provider Facility CPT-02626 Level 3 Est. Patient 13:53:13 WARRANTY COORDINATOR Andre Barreto MD [facility] CPT-00830 Level 3 Est. Patient 09:16:12 CDT Andre Barreto MD [facility] CPT-00171 Level 3 Est. Patient 14:50:35 CDT Andre Barreto MD [facility] Procedures Code Procedure Name Date Entry Date Standard Description CPT-Cryo Cryotherapy 08:59:26 WARRANTY COORDINATOR CPT-Cryo Cryotherapy 08:46:02 CDT CPT-90032 Chest 2V Frontal and Lat 14:02:13 WARRANTY COORDINATOR
--- OUTSIDE RECORDS SUMMARY | 2018-03-16 21:01 | XMS REPORT | Clinical Summary ---
Author Author Admin, E Organization [facility] Address Unknown Phone Allergies, Adverse Reactions, Alerts [...] of vessel, [place] or graft OBSTRUCTIVE SLEEP APNEA 327.23 Active [...] 1 po q6hr PRN Nausea ONDANSETRON HCL 77104963773 No Longer Active Andre Barreto MD Active CIPRO 500 MG TAB 1 tablet by mouth twice daily CIPROFLOXACIN HCL 81228232772 No Longer Active Andre Barreto MD Active SYMBICORT 160-4.5 MCG/ACT AERO 2 puffs inhaled bid BUDESONIDE- FORMOTEROL FUMARATE 31856913211 No Longer Active Andre Barreto MD Active LIPITOR 40 MG TAB Take 1.5 tab by mouth daily ATORVASTATIN CALCIUM 82009134729 Active Andre Barreto MD Active LASIX 20 MG TAB 1 tablet by mouth daily PRN FUROSEMIDE 48205043843 Active Andre Barreto MD Active TOPROL XL 25 MG [id number] Take one by mouth daily METOPROLOL SUCCINATE 41492291303 Active Andre Barreto MD Active PLAVIX 75 MG TABS 1 tablet by mouth daily CLOPIDOGREL BISULFATE 51274931317 Active Andre Barreto MD Active NITROSTAT 0.4 MG SL TAB disolve 1 under tongue repeat if needed NITROGLYCERIN 48028486759 Active Andre Barreto MD Active DICLOFENAC SODIUM 75 MG TBEC 1 tablet by mouth twice daily DICLOFENAC SODIUM 06694578261 No Longer Active Andre Barreto MD Active FLUOXETINE HCL 20 MG CAPS TAKE 3 CAPSULES BY MOUTH ONCE DAILY. FLUOXETINE HCL 12100811363 Active Andre Barreto MD Active PROZAC 40 MG CAPS 1 cap by mouth at bedtime FLUOXETINE HCL 63264812647 No Longer Active Andre Barreto MD Active HYDROCODONE-ACETAMINOPHEN 5-325 MG TABS 1 po q 6hr PRN Pain HYDROCODONE-ACETAMINOPHEN 72412042695 No Longer Active Andre Barreto MD Active TRAMADOL HCL 50 MG TABS 2 po q 6 hrs prn TRAMADOL HCL 67584118149 Active Andre Barreto MD Active AMBIEN 5 MG TABS 1 po a hs prn ZOLPIDEM TARTRATE 15494935304 Active Andre Barreto MD Active BENICAR HCT 40-25 MG TABS Take one by mouth daily OLMESARTAN MEDOXOMIL- HCTZ 22875383813 Active Andre Barreto MD Active HYDROCODONE-ACETAMINOPHEN 5-325 MG TABS 1 po q 6hr PRN Pain HYDROCODONE-ACETAMINOPHEN 5-325 MG TABS 650417 HYDROCODONE-ACETAMINOPHEN Inactive PROZAC 40 MG CAPS 1 cap by mouth at bedtime PROZAC 40 MG CAPS 486623 FLUOXETINE HCL Inactive DICLOFENAC SODIUM 75 MG TBEC 1 tablet by mouth twice daily DICLOFENAC SODIUM 75 MG TBEC 896278 DICLOFENAC SODIUM Inactive SYMBICORT 160-4.5 MCG/ACT AERO 2 puffs inhaled bid SYMBICORT 160-4.5 MCG/ACT AERO BUDESONIDE-FORMOTEROL FUMARATE Inactive ZOFRAN 4 MG TABS 1 po q6hr PRN Nausea ZOFRAN 4 MG TABS 796227 ONDANSETRON HCL Inactive CIPRO 500 MG TAB 1 tablet by mouth twice daily CIPRO 500 MG TAB 921873 CIPROFLOXACIN HCL Inactive Vital Signs Date Name [...] ... - Chemistry sodium, serum 138 mmol/L 602-753 5672/02/28 potassium, serum 4.1 mmol/L 3.5-5.2 chloride, serum [...] 0.79 ng/dL 0.76-1.46 sodium, serum 142 mmol/L 687-781 8391/10/01 potassium, serum 4.0 mmol/L 3.5-5.2 chloride, serum [...] 0.50 mg/dL 0.00-1.00 cholesterol, serum 179 mg/dL 500-333 2794/10/01 triglyceride, serum, fasting 123 mg/dL 30-200 HDL [...] Negative Encounters Code Encounter Date Provider Facility CPT-80306 Level 3 Est. 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 Patient 09:16:12 CDT Andre Barreto MD [facility] CPT-23485 Level 3 Est. Patient 14:50:35 CDT Andre Barreto MD [facility] Procedures Code Procedure Name Date Entry Date Standard Description CPT-Cryo Cryotherapy 08:46:02 CDT CPT-95728 Chest 2V Frontal and Lat 14:02:13 GREEN HOUSE MANAGER
--- OUTSIDE RECORDS SUMMARY | 2018-03-16 21:02 | XMS REPORT | Clinical Summary ---
Author Author Admin, E Organization [facility] Address Unknown Phone Unavailable Allergies, Adverse [...] of vessel, [place] or graft OBSTRUCTIVE SLEEP APNEA 327.23 Active [...] 1 tab by mouth daily ATORVASTATIN CALCIUM 64080152551 Active Andre Barreto MD Active ZOFRAN 4 MG TABS 1 po q6hr PRN Nausea ONDANSETRON HCL 78040220088 No Longer Active Andre Barreto MD Active CIPRO 500 MG TAB 1 tablet by mouth twice daily CIPROFLOXACIN HCL 42758403496 No Longer Active Andre Barreto MD Active SYMBICORT 160-4.5 MCG/ACT AERO 2 puffs inhaled bid BUDESONIDE- FORMOTEROL FUMARATE 31160368672 No Longer Active Andre Barreto MD Active LASIX 20 MG TAB 1 tablet by mouth daily PRN FUROSEMIDE 61127258550 Active Andre Barreto MD Active TOPROL XL 25 MG [id number] Take one by mouth daily METOPROLOL SUCCINATE 60897359759 Active Andre Barreto MD Active PLAVIX 75 MG TABS 1 tablet by mouth daily CLOPIDOGREL BISULFATE 51830461669 Active Andre Barreto MD Active NITROSTAT 0.4 MG SL TAB disolve 1 under tongue repeat if needed NITROGLYCERIN 60551776207 Active Andre Barreto MD Active DICLOFENAC SODIUM 75 MG TBEC 1 tablet by mouth twice daily DICLOFENAC SODIUM 59367036104 No Longer Active Andre Barreto MD Active FLUOXETINE HCL 20 MG CAPS TAKE 3 CAPSULES BY MOUTH ONCE DAILY. FLUOXETINE HCL 10400546183 Active Andre Barreto MD Active PROZAC 40 MG CAPS 1 cap by mouth at bedtime FLUOXETINE HCL 88648477304 No Longer Active Andre Barreto MD Active HYDROCODONE-ACETAMINOPHEN 5-325 MG TABS 1 po q 6hr PRN Pain HYDROCODONE-ACETAMINOPHEN 11512097615 No Longer Active Andre Barreto MD Active TRAMADOL HCL 50 MG TABS 2 po q 6 hrs prn TRAMADOL HCL 15329712162 Active Andre Barreto MD Active AMBIEN 5 MG TABS 1 po a hs prn ZOLPIDEM TARTRATE 53060422776 Active Andre Barreto MD Active BENICAR HCT 40-25 MG TABS Take one by mouth daily OLMESARTAN MEDOXOMIL- HCTZ 63885404895 Active Andre Barreto MD Active HYDROCODONE-ACETAMINOPHEN 5-325 MG TABS 1 po q 6hr PRN Pain HYDROCODONE-ACETAMINOPHEN 5-325 MG TABS 811540 HYDROCODONE-ACETAMINOPHEN Inactive PROZAC 40 MG CAPS 1 cap by mouth at bedtime PROZAC 40 MG CAPS 759751 FLUOXETINE HCL Inactive DICLOFENAC SODIUM 75 MG TBEC 1 tablet by mouth twice daily DICLOFENAC SODIUM 75 MG TBEC 644339 DICLOFENAC SODIUM Inactive SYMBICORT 160-4.5 MCG/ACT AERO 2 puffs inhaled bid SYMBICORT 160-4.5 MCG/ACT AERO BUDESONIDE-FORMOTEROL FUMARATE Inactive ZOFRAN 4 MG TABS 1 po q6hr PRN Nausea ZOFRAN 4 MG TABS 164625 ONDANSETRON HCL Inactive CIPRO 500 MG TAB 1 tablet by mouth twice daily CIPRO 500 MG TAB 762025 CIPROFLOXACIN HCL Inactive Vital Signs Date Name [...] W/DIFF - Chemistry sodium, serum 145 mmol/L 190-506 7569/12/19 potassium, serum 4.3 mmol/L 3.5-5.2 chloride, serum 104 mmol/L 98-107 carbon dioxide, venous blood 29.9 mmol/L 21.0-32.0 blood glucose 121 mg/dL 65-110 urea nitrogen, blood 17 mg/dL 7-18 creatinine, serum 1.20 mg/dL 0.60-1.30 alanine aminotransferase (SGPT), serum 40 U/L 12-78 aspartate aminotransferase (SGOT), serum 25 U/L 15-37 calcium, serum 9.2 mg/dL 8.5-10.1 bilirubin, serum, total 0.50 mg/dL 0.00-1.00 cholesterol, serum 174 mg/dL 709-136 2739/12/19 triglyceride, serum, fasting 129 mg/dL 30-200 HDL [...] 4.3-6.0 Encounters Code Encounter Date Provider Facility CPT-91778 Level 3 Est. Patient 10:57:31 INTERIOR DESIGN CONSULTANT Andre Barreto MD [facility] CPT-88938 Level 3 Est. Patient 13:53:13 INTERIOR DESIGN CONSULTANT Andre Barreto MD [facility] CPT-54844 Level 3 Est. Patient 09:16:12 CDT Andre Barreto MD [facility] CPT-79773 Level 3 Est. Patient 14:50:35 CDT Andre Barreto MD [facility] Procedures Code Procedure Name Date Entry Date Standard Description CPT-Cryo Cryotherapy 08:59:26 INTERIOR DESIGN CONSULTANT CPT-Cryo Cryotherapy 08:46:02 CDT CPT-60060 Chest 2V Frontal and Lat 14:02:13 INTERIOR DESIGN CONSULTANT
--- OUTSIDE RECORDS SUMMARY | 2018-03-16 21:02 | XMS REPORT | Clinical Summary ---
Author Author Admin, E Organization [facility] Address Unknown Phone Unavailable Allergies, Adverse Reactions, [...] Coronary atherosclerosis of unspecified type of vessel, [place] or graft OBSTRUCTIVE SLEEP APNEA 327.23 Active [...] 1 tab by mouth daily ATORVASTATIN CALCIUM 70977476244 Active Andre Barreto MD Active ZOFRAN 4 MG TABS 1 po q6hr PRN Nausea ONDANSETRON HCL 99794362243 No Longer Active Andre Barreto MD Active CIPRO 500 MG TAB 1 tablet by mouth twice daily CIPROFLOXACIN HCL 42204377044 No Longer Active Andre Barreto MD Active SYMBICORT 160-4.5 MCG/ACT AERO 2 puffs inhaled bid BUDESONIDE- FORMOTEROL FUMARATE 20208551688 No Longer Active Andre Barreto MD Active LASIX 20 MG TAB 1 tablet by mouth daily PRN FUROSEMIDE 16936315758 Active Andre Barreto MD Active TOPROL XL 25 MG [id number] Take one by mouth daily METOPROLOL SUCCINATE 62654300424 Active Andre Barreto MD Active PLAVIX 75 MG TABS 1 tablet by mouth daily CLOPIDOGREL BISULFATE 09810444712 Active Andre Barreto MD Active NITROSTAT 0.4 MG SL TAB disolve 1 under tongue repeat if needed NITROGLYCERIN 53563008855 Active Andre Barreto MD Active DICLOFENAC SODIUM 75 MG TBEC 1 tablet by mouth twice daily DICLOFENAC SODIUM 05334739354 No Longer Active Andre Barreto MD Active FLUOXETINE HCL 20 MG CAPS TAKE 3 CAPSULES BY MOUTH ONCE DAILY. FLUOXETINE HCL 86751640456 Active Andre Barreto MD Active PROZAC 40 MG CAPS 1 cap by mouth at bedtime FLUOXETINE HCL 57232077744 No Longer Active Andre Barreto MD Active HYDROCODONE-ACETAMINOPHEN 5-325 MG TABS 1 po q 6hr PRN Pain HYDROCODONE-ACETAMINOPHEN 36768369762 No Longer Active Andre Barreto MD Active TRAMADOL HCL 50 MG TABS 2 po q 6 hrs prn TRAMADOL HCL 26716839279 Active Andre Barreto MD Active AMBIEN 5 MG TABS 1 po a hs prn ZOLPIDEM TARTRATE 74392065457 Active Andre Barreto MD Active BENICAR HCT 40-25 MG TABS Take one by mouth daily OLMESARTAN MEDOXOMIL- HCTZ 87927324377 Active Andre Barreto MD Active HYDROCODONE-ACETAMINOPHEN 5-325 MG TABS 1 po q 6hr PRN Pain HYDROCODONE-ACETAMINOPHEN 5-325 MG TABS 093863 HYDROCODONE-ACETAMINOPHEN Inactive PROZAC 40 MG CAPS 1 cap by mouth at bedtime PROZAC 40 MG CAPS 681846 FLUOXETINE HCL Inactive DICLOFENAC SODIUM 75 MG TBEC 1 tablet by mouth twice daily DICLOFENAC SODIUM 75 MG TBEC 835178 DICLOFENAC SODIUM Inactive SYMBICORT 160-4.5 MCG/ACT AERO 2 puffs inhaled bid SYMBICORT 160-4.5 MCG/ACT AERO BUDESONIDE-FORMOTEROL FUMARATE Inactive ZOFRAN 4 MG TABS 1 po q6hr PRN Nausea ZOFRAN 4 MG TABS 748370 ONDANSETRON HCL Inactive CIPRO 500 MG TAB 1 tablet by mouth twice daily CIPRO 500 MG TAB 311953 CIPROFLOXACIN HCL Inactive Vital Signs Date Name Value Unit Range Description blood pressure, diastolic - 8462-4 87 mm[Hg] [...] dipstick 1+ Negative sodium, serum 138 mmol/L 378-724 1372/02/28 potassium, serum 4.1 mmol/L 3.5-5.2 chloride, serum [...] W/DIFF - Chemistry sodium, serum 145 mmol/L 534-986 6863/12/19 potassium, serum 4.3 mmol/L 3.5-5.2 chloride, serum 104 mmol/L 98-107 carbon dioxide, venous blood 29.9 mmol/L 21.0-32.0 blood glucose 121 mg/dL 65-110 urea nitrogen, blood 17 mg/dL 7-18 creatinine, serum 1.20 mg/dL 0.60-1.30 alanine aminotransferase (SGPT), serum 40 U/L 12-78 aspartate aminotransferase (SGOT), serum 25 U/L 15-37 calcium, serum 9.2 mg/dL 8.5-10.1 bilirubin, serum, total 0.50 mg/dL 0.00-1.00 cholesterol, serum 174 mg/dL 194-098 3099/12/19 triglyceride, serum, fasting 129 mg/dL 30-200 HDL [...] Negative Encounters Code Encounter Date Provider Facility CPT-43552 Level 3 Est. Patient 13:53:13 REPLENISHMENT ANALYST Andre Barreto MD [facility] CPT-01206 Level 3 Est. Patient 09:16:12 CDT Andre Barreto MD [facility] CPT-86689 Level 3 Est. Patient 14:50:35 CDT Andre Barreto MD [facility] Procedures Code Procedure Name Date Entry Date Standard Description CPT-Cryo Cryotherapy 08:59:26 REPLENISHMENT ANALYST CPT-Cryo Cryotherapy 08:46:02 CDT CPT-12698 Chest 2V Frontal and Lat 14:02:13 REPLENISHMENT ANALYST
--- OUTSIDE RECORDS SUMMARY | 2018-03-16 21:02 | XMS REPORT | Clinical Summary ---
Author Author Admin, E Organization [facility] Address Unknown Phone Unavailable Allergies, [...] Coronary atherosclerosis of unspecified type of vessel, [place] or graft OBSTRUCTIVE SLEEP APNEA 327.23 Active [...] 1 tab by mouth daily ATORVASTATIN CALCIUM 05639329232 Active Andre Barreto MD Active ZOFRAN 4 MG TABS 1 po q6hr PRN Nausea ONDANSETRON HCL 89884152908 No Longer Active Andre Barreto MD Active CIPRO 500 MG TAB 1 tablet by mouth twice daily CIPROFLOXACIN HCL 15864019395 No Longer Active Andre Barreto MD Active SYMBICORT 160-4.5 MCG/ACT AERO 2 puffs inhaled bid BUDESONIDE- FORMOTEROL FUMARATE 02855512880 No Longer Active Andre Barreto MD Active LASIX 20 MG TAB 1 tablet by mouth daily PRN FUROSEMIDE 68011506879 Active Andre Barreto MD Active TOPROL XL 25 MG [id number] Take one by mouth daily METOPROLOL SUCCINATE 82274222208 Active Andre Barreto MD Active PLAVIX 75 MG TABS 1 tablet by mouth daily CLOPIDOGREL BISULFATE 47499697181 Active Andre Barreto MD Active NITROSTAT 0.4 MG SL TAB disolve 1 under tongue repeat if needed NITROGLYCERIN 08833964850 Active Andre Barreto MD Active DICLOFENAC SODIUM 75 MG TBEC 1 tablet by mouth twice daily DICLOFENAC SODIUM 40213088153 No Longer Active Andre Barreto MD Active FLUOXETINE HCL 20 MG CAPS TAKE 3 CAPSULES BY MOUTH ONCE DAILY. FLUOXETINE HCL 11726131574 Active Andre Barreto MD Active PROZAC 40 MG CAPS 1 cap by mouth at bedtime FLUOXETINE HCL 94315075505 No Longer Active Andre Barreto MD Active HYDROCODONE-ACETAMINOPHEN 5-325 MG TABS 1 po q 6hr PRN Pain HYDROCODONE-ACETAMINOPHEN 04887723865 No Longer Active Andre Barreto MD Active TRAMADOL HCL 50 MG TABS 2 po q 6 hrs prn TRAMADOL HCL 73109820455 Active Andre Barreto MD Active AMBIEN 5 MG TABS 1 po a hs prn ZOLPIDEM TARTRATE 32565539169 Active Andre Barreto MD Active BENICAR HCT 40-25 MG TABS Take one by mouth daily [place]LM[place]AN MEDOXOMIL- HCTZ 62420088881 Active Andre Barreto MD Active HYDROCODONE-ACETAMINOPHEN 5-325 MG TABS 1 po q 6hr PRN Pain HYDROCODONE-ACETAMINOPHEN 5-325 MG TABS 427402 HYDROCODONE-ACETAMINOPHEN Inactive PROZAC 40 MG CAPS 1 cap by mouth at bedtime PROZAC 40 MG CAPS 078442 FLUOXETINE HCL Inactive DICLOFENAC SODIUM 75 MG TBEC 1 tablet by mouth twice daily DICLOFENAC SODIUM 75 MG TBEC 976181 DICLOFENAC SODIUM Inactive SYMBICORT 160-4.5 MCG/ACT AERO 2 puffs inhaled bid SYMBICORT 160-4.5 MCG/ACT AERO BUDESONIDE-FORMOTEROL FUMARATE Inactive ZOFRAN 4 MG TABS 1 po q6hr PRN Nausea ZOFRAN 4 MG TABS 467484 ONDANSETRON HCL Inactive CIPRO 500 MG TAB 1 tablet by mouth twice daily CIPRO 500 MG TAB 817992 CIPROFLOXACIN HCL Inactive Vital Signs Date Name [...] Panel, Lipid Panel, CBC W/DIFF - Chemistry bilirubin, serum, total 0.50 mg/dL 0.00-1.00 cholesterol, serum 174 mg/dL 106-173 2062/12/19 triglyceride, serum, fasting 129 mg/dL 30-200 HDL cholesterol, serum 55 mg/dL 32-96 LDL cholesterol, serum 93 mg/dL 0-130 blood glucose 121 mg/dL 65-110 carbon dioxide, venous blood 29.9 mmol/L 21.0-32.0 chloride, serum 104 mmol/L 98-107 potassium, serum 4.3 mmol/L 3.5-5.2 sodium, serum 145 mmol/L 788-942 8174/12/19 calcium, serum 9.2 mg/dL 8.5-10.1 aspartate aminotransferase (SGOT), serum 25 U/L 15-37 alanine aminotransferase (SGPT), serum 40 U/L 12-78 creatinine, serum 1.20 mg/dL 0.60-1.30 urea nitrogen, blood 17 mg/dL 7-18 Lab Report: Comp. Metabolic Panel, Lipid Panel, [...] 4.3-6.0 Encounters Code Encounter Date Provider Facility CPT-87553 Level 3 Est. Patient 10:57:31 WATER/WASTEWATER ENGINEER Andre Barreto MD [facility] CPT-49637 Level 3 Est. Patient 13:53:13 WATER/WASTEWATER ENGINEER Andre Barreto MD [facility] CPT-48976 Level 3 Est. Patient 09:16:12 CDT Andre Barreto MD [facility] CPT-26215 Level 3 Est. Patient 14:50:35 CDT Andre Barreto MD [facility] Procedures Code Procedure Name Date Entry Date Standard Description CPT-Cryo Cryotherapy 08:59:26 WATER/WASTEWATER ENGINEER CPT-Cryo Cryotherapy 08:46:02 CDT CPT-88937 Chest 2V Frontal and Lat 14:02:13 WATER/WASTEWATER ENGINEER
--- OUTSIDE RECORDS SUMMARY | 2018-03-16 21:03 | XMS REPORT | Clinical Summary ---
Author Author Admin, EDUARDO Organization [facility] Address Unknown Phone Allergies, Adverse Reactions, [...] Coronary atherosclerosis of unspecified type of vessel, [place] or graft OBSTRUCTIVE SLEEP APNEA 327.23 Active [...] 1 po q6hr PRN Nausea ONDANSETRON HCL 21921008945 No Longer Active Andre Barreto MD Active CIPRO 500 MG TAB 1 tablet by mouth twice daily CIPROFLOXACIN HCL 96052691977 No Longer Active Andre Barreto MD Active SYMBICORT 160-4.5 MCG/ACT AERO 2 puffs inhaled bid BUDESONIDE- FORMOTEROL FUMARATE 28083151799 No Longer Active Andre Barreto MD Active LIPITOR 40 MG TAB Take 1.5 tab by mouth daily ATORVASTATIN CALCIUM 32261506230 Active Andre Barreto MD Active LASIX 20 MG TAB 1 tablet by mouth daily PRN FUROSEMIDE 19694151498 Active Andre Barreto MD Active TOPROL XL 25 MG [id number] Take one by mouth daily METOPROLOL SUCCINATE 80366768307 Active Andre Barreto MD Active PLAVIX 75 MG TABS 1 tablet by mouth daily CLOPIDOGREL BISULFATE 93385239011 Active Andre Barreto MD Active NITROSTAT 0.4 MG SL TAB disolve 1 under tongue repeat if needed NITROGLYCERIN 44438735050 Active Andre Barreto MD Active DICLOFENAC SODIUM 75 MG TBEC 1 tablet by mouth twice daily DICLOFENAC SODIUM 75882535408 No Longer Active Andre Barreto MD Active FLUOXETINE HCL 20 MG CAPS TAKE 3 CAPSULES BY MOUTH ONCE DAILY. FLUOXETINE HCL 02116070013 Active Andre Barreto MD Active PROZAC 40 MG CAPS 1 cap by mouth at bedtime FLUOXETINE HCL 42651938071 No Longer Active Andre Barreto MD Active HYDROCODONE-ACETAMINOPHEN 5-325 MG TABS 1 po q 6hr PRN Pain HYDROCODONE-ACETAMINOPHEN 80463779256 No Longer Active Andre Barreto MD Active TRAMADOL HCL 50 MG TABS 2 po q 6 hrs prn TRAMADOL HCL 82718457003 Active Andre Barreto MD Active AMBIEN 5 MG TABS 1 po a hs prn ZOLPIDEM TARTRATE 76745704409 Active Andre Barreto MD Active BENICAR HCT 40-25 MG TABS Take one by mouth daily [place]LM[place]AN MEDOXOMIL- HCTZ 44311747053 Active Andre Barreto MD Active HYDROCODONE-ACETAMINOPHEN 5-325 MG TABS 1 po q 6hr PRN Pain HYDROCODONE-ACETAMINOPHEN 5-325 MG TABS 768487 HYDROCODONE-ACETAMINOPHEN Inactive PROZAC 40 MG CAPS 1 cap by mouth at bedtime PROZAC 40 MG CAPS 467020 FLUOXETINE HCL Inactive DICLOFENAC SODIUM 75 MG TBEC 1 tablet by mouth twice daily DICLOFENAC SODIUM 75 MG TBEC 776259 DICLOFENAC SODIUM Inactive SYMBICORT 160-4.5 MCG/ACT AERO 2 puffs inhaled bid SYMBICORT 160-4.5 MCG/ACT AERO BUDESONIDE-FORMOTEROL FUMARATE Inactive ZOFRAN 4 MG TABS 1 po q6hr PRN Nausea ZOFRAN 4 MG TABS 132021 ONDANSETRON HCL Inactive CIPRO 500 MG TAB 1 tablet by mouth twice daily CIPRO 500 MG TAB 737879 CIPROFLOXACIN HCL Inactive Vital Signs Date Name [...] ... - Chemistry sodium, serum 138 mmol/L 736-550 5302/02/28 potassium, serum 4.1 mmol/L 3.5-5.2 chloride, serum [...] 0.79 ng/dL 0.76-1.46 sodium, serum 142 mmol/L 596-293 4139/10/01 potassium, serum 4.0 mmol/L 3.5-5.2 chloride, serum [...] 0.50 mg/dL 0.00-1.00 cholesterol, serum 179 mg/dL 281-991 1067/10/01 triglyceride, serum, fasting 123 mg/dL 30-200 HDL [...] Negative Encounters Code Encounter Date Provider Facility CPT-16498 Level 3 Est. 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 Patient 09:16:12 CDT Andre Barreto MD [facility] CPT-95377 Level 3 Est. Patient 14:50:35 CDT Andre Barreto MD [facility] Procedures Code Procedure Name Date Entry Date Standard Description CPT-Cryo Cryotherapy 08:46:02 CDT CPT-57295 Chest 2V Frontal and Lat 14:02:13 RANGE MECHANIC
--- OUTSIDE RECORDS SUMMARY | 2018-03-16 21:03 | XMS REPORT | Clinical Summary ---
Author Author Admin, EDUARDO Organization [facility] Address Unknown Phone Allergies, Adverse Reactions, [...] unspecified type of vessel, [place] or graft OBSTRUCTIVE SLEEP APNEA 327.23 Active [...] 1 po q6hr PRN Nausea ONDANSETRON HCL 29760130507 No Longer Active Andre Barreto MD Active CIPRO 500 MG TAB 1 tablet by mouth twice daily CIPROFLOXACIN HCL 74392924572 No Longer Active Andre Barreto MD Active SYMBICORT 160-4.5 MCG/ACT AERO 2 puffs inhaled bid BUDESONIDE- FORMOTEROL FUMARATE 27451598256 No Longer Active Andre Barreto MD Active LIPITOR 40 MG TAB Take 1.5 tab by mouth daily ATORVASTATIN CALCIUM 11488359526 Active Andre Barreto MD Active LASIX 20 MG TAB 1 tablet by mouth daily PRN FUROSEMIDE 11299525734 Active Andre Barreto MD Active TOPROL XL 25 MG [id number] Take one by mouth daily METOPROLOL SUCCINATE 01290362321 Active Andre Barreto MD Active PLAVIX 75 MG TABS 1 tablet by mouth daily CLOPIDOGREL BISULFATE 87138615848 Active Andre Barreto MD Active NITROSTAT 0.4 MG SL TAB disolve 1 under tongue repeat if needed NITROGLYCERIN 53095315785 Active Andre Barreto MD Active DICLOFENAC SODIUM 75 MG TBEC 1 tablet by mouth twice daily DICLOFENAC SODIUM 23048299778 No Longer Active Andre Barreto MD Active FLUOXETINE HCL 20 MG CAPS TAKE 3 CAPSULES BY MOUTH ONCE DAILY. FLUOXETINE HCL 18147273436 Active Andre Barreto MD Active PROZAC 40 MG CAPS 1 cap by mouth at bedtime FLUOXETINE HCL 14616355596 No Longer Active Andre Barreto MD Active HYDROCODONE-ACETAMINOPHEN 5-325 MG TABS 1 po q 6hr PRN Pain HYDROCODONE-ACETAMINOPHEN 94936723860 No Longer Active Andre Barreto MD Active TRAMADOL HCL 50 MG TABS 2 po q 6 hrs prn TRAMADOL HCL 58680244763 Active Andre Barreto MD Active AMBIEN 5 MG TABS 1 po a hs prn ZOLPIDEM TARTRATE 59945561424 Active Andre Barreto MD Active BENICAR HCT 40-25 MG TABS Take one by mouth daily [place]LM[place]AN MEDOXOMIL- HCTZ 93390336893 Active Andre Barreto MD Active HYDROCODONE-ACETAMINOPHEN 5-325 MG TABS 1 po q 6hr PRN Pain HYDROCODONE-ACETAMINOPHEN 5-325 MG TABS 068557 HYDROCODONE-ACETAMINOPHEN Inactive PROZAC 40 MG CAPS 1 cap by mouth at bedtime PROZAC 40 MG CAPS 265164 FLUOXETINE HCL Inactive DICLOFENAC SODIUM 75 MG TBEC 1 tablet by mouth twice daily DICLOFENAC SODIUM 75 MG TBEC 044524 DICLOFENAC SODIUM Inactive SYMBICORT 160-4.5 MCG/ACT AERO 2 puffs inhaled bid SYMBICORT 160-4.5 MCG/ACT AERO BUDESONIDE-FORMOTEROL FUMARATE Inactive ZOFRAN 4 MG TABS 1 po q6hr PRN Nausea ZOFRAN 4 MG TABS 961387 ONDANSETRON HCL Inactive CIPRO 500 MG TAB 1 tablet by mouth twice daily CIPRO 500 MG TAB 996316 CIPROFLOXACIN HCL Inactive Vital Signs Date Name [...] ... - Chemistry sodium, serum 138 mmol/L 653-767 1099/02/28 potassium, serum 4.1 mmol/L 3.5-5.2 chloride, serum [...] 0.79 ng/dL 0.76-1.46 sodium, serum 142 mmol/L 959-812 6839/10/01 potassium, serum 4.0 mmol/L 3.5-5.2 chloride, serum [...] 0.50 mg/dL 0.00-1.00 cholesterol, serum 179 mg/dL 493-261 5213/10/01 triglyceride, serum, fasting 123 mg/dL 30-200 HDL [...] Negative Encounters Code Encounter Date Provider Facility CPT-29274 Level 3 Est. Patient 13:53:13 REGISTERED NURSING PROFESSOR Andre Barreto MD [facility] CPT-76348 Level 3 Est. Patient 09:16:12 CDT Andre Barreto MD [facility] CPT-23873 Level 3 Est. Patient 14:50:35 CDT Andre Barreto MD [facility] Procedures Code Procedure Name Date Entry Date Standard Description CPT-Cryo Cryotherapy 08:46:02 CDT CPT-68267 Chest 2V Frontal and Lat 14:02:13 REGISTERED NURSING PROFESSOR
--- OUTSIDE RECORDS SUMMARY | 2018-03-16 21:04 | XMS REPORT | Clinical Summary ---
Author Author Admin, EDUARDO Organization [facility] Address Unknown Phone Unavailable Allergies, Adverse [...] Coronary atherosclerosis of unspecified type of vessel, [place] or graft OBSTRUCTIVE SLEEP APNEA 327.23 Active [...] 1 tab by mouth daily ATORVASTATIN CALCIUM 09156968312 Active Andre Barreto MD Active ZOFRAN 4 MG TABS 1 po q6hr PRN Nausea ONDANSETRON HCL 94937056868 No Longer Active Andre Barreto MD Active CIPRO 500 MG TAB 1 tablet by mouth twice daily CIPROFLOXACIN HCL 23051013882 No Longer Active Andre Barreto MD Active SYMBICORT 160-4.5 MCG/ACT AERO 2 puffs inhaled bid BUDESONIDE- FORMOTEROL FUMARATE 36122617747 No Longer Active Andre Barreto MD Active LASIX 20 MG TAB 1 tablet by mouth daily PRN FUROSEMIDE 53472574722 Active Andre Barreto MD Active TOPROL XL 25 MG [id number] Take one by mouth daily METOPROLOL SUCCINATE 19145889038 Active Andre Barreto MD Active PLAVIX 75 MG TABS 1 tablet by mouth daily CLOPIDOGREL BISULFATE 36507651732 Active Andre Barreto MD Active NITROSTAT 0.4 MG SL TAB disolve 1 under tongue repeat if needed NITROGLYCERIN 13794724791 Active Andre Barreto MD Active DICLOFENAC SODIUM 75 MG TBEC 1 tablet by mouth twice daily DICLOFENAC SODIUM 19900426451 No Longer Active Andre Barreto MD Active FLUOXETINE HCL 20 MG CAPS TAKE 3 CAPSULES BY MOUTH ONCE DAILY. FLUOXETINE HCL 38785110140 Active Andre Barreto MD Active PROZAC 40 MG CAPS 1 cap by mouth at bedtime FLUOXETINE HCL 51032241225 No Longer Active Andre Barreto MD Active HYDROCODONE-ACETAMINOPHEN 5-325 MG TABS 1 po q 6hr PRN Pain HYDROCODONE-ACETAMINOPHEN 15535894864 No Longer Active Andre Barreto MD Active TRAMADOL HCL 50 MG TABS 2 po q 6 hrs prn TRAMADOL HCL 23529155295 Active Andre Barreto MD Active AMBIEN 5 MG TABS 1 po a hs prn ZOLPIDEM TARTRATE 77644400218 Active Andre Barreto MD Active BENICAR HCT 40-25 MG TABS Take one by mouth daily OLMESARTAN MEDOXOMIL- HCTZ 55481582951 Active Andre Barreto MD Active HYDROCODONE-ACETAMINOPHEN 5-325 MG TABS 1 po q 6hr PRN Pain HYDROCODONE-ACETAMINOPHEN 5-325 MG TABS 723107 HYDROCODONE-ACETAMINOPHEN Inactive PROZAC 40 MG CAPS 1 cap by mouth at bedtime PROZAC 40 MG CAPS 475035 FLUOXETINE HCL Inactive DICLOFENAC SODIUM 75 MG TBEC 1 tablet by mouth twice daily DICLOFENAC SODIUM 75 MG TBEC 936004 DICLOFENAC SODIUM Inactive SYMBICORT 160-4.5 MCG/ACT AERO 2 puffs inhaled bid SYMBICORT 160-4.5 MCG/ACT AERO BUDESONIDE-FORMOTEROL FUMARATE Inactive ZOFRAN 4 MG TABS 1 po q6hr PRN Nausea ZOFRAN 4 MG TABS 416363 ONDANSETRON HCL Inactive CIPRO 500 MG TAB 1 tablet by mouth twice daily CIPRO 500 MG TAB 376972 CIPROFLOXACIN HCL Inactive Vital Signs Date Name [...] ... - Chemistry sodium, serum 138 mmol/L 640-006 7892/02/28 potassium, serum 4.1 mmol/L 3.5-5.2 chloride, serum [...] NAYELY INFLUENZA A/B, Myco ... - Hematology hemoglobin, blood 12.9 g/dL 12.0-16.0 hematocrit, blood 38.8 % 36.0-46.0 mean corpuscular volume, RBC 95 fL 80-97 mean corpuscular hemoglobin, RBC 31.5 pg 27.0-31.2 mean corpuscular hemoglobin concentration, RBC 33.1 G/DL % 31.8- 35.4 red blood cell distribution width 13.2 % 11.6-14.8 platelet count 252 10^3/MM^3 10*3/mm3 788-907 5174/02/28 erythrocyte (RBC) count 4.08 10^6/MM^3 10*6/mm3 4.04-5.48 lymphocytes as percent of blood leukocytes 14.5 % 20.5-51.1 monocytes as percent of blood leukocytes 10.1 % 1.7-9.3 neutrophils as percent of blood leukocytes 73.6 % 42.2-75.2 leukocyte count, blood 12.4 10^3/MM^3 10*3/mm3 4.6-10.2 Lab Report: CBC W/DIFF, Comp. Metabolic Panel, [...] W/DIFF - Chemistry sodium, serum 145 mmol/L 735-639 5391/12/19 potassium, serum 4.3 mmol/L 3.5-5.2 chloride, serum 104 mmol/L 98-107 carbon dioxide, venous blood 29.9 mmol/L 21.0-32.0 blood glucose 121 mg/dL 65-110 urea nitrogen, blood 17 mg/dL 7-18 creatinine, serum 1.20 mg/dL 0.60-1.30 alanine aminotransferase (SGPT), serum 40 U/L 12-78 aspartate aminotransferase (SGOT), serum 25 U/L 15-37 calcium, serum 9.2 mg/dL 8.5-10.1 bilirubin, serum, total 0.50 mg/dL 0.00-1.00 cholesterol, serum 174 mg/dL 143-852 2759/12/19 triglyceride, serum, fasting 129 mg/dL 30-200 HDL [...] count 256 10^3/MM^3 10*3/mm3 142-424 Lab Report: RapidStrep Rflx/Cx - Lab Microbial identification kit, rapid strep method Negative-Throat Culture to Follow Negative Encounters Code Encounter Date Provider Facility CPT-53554 Level 3 Est. Patient 13:53:13 MANAGER STORY Andre Barreto MD [facility] CPT-13370 Level 3 Est. Patient 09:16:12 CDT Andre Barreto MD [facility] CPT-95803 Level 3 Est. Patient 14:50:35 CDT Andre Barreto MD [facility] Procedures Code Procedure Name Date Entry Date Standard Description CPT-Cryo Cryotherapy 08:59:26 MANAGER STORY CPT-Cryo Cryotherapy 08:46:02 CDT CPT-78592 Chest 2V Frontal and Lat 14:02:13 MANAGER STORY
--- OUTSIDE RECORDS SUMMARY | 2018-03-16 21:04 | XMS REPORT | Clinical Summary ---
Author Author Admin, E Organization [facility] Address Unknown Phone Allergies, Adverse [...] Coronary atherosclerosis of unspecified type of vessel, [place] or graft OBSTRUCTIVE SLEEP APNEA 327.23 Active [...] 1 po q6hr PRN Nausea ONDANSETRON HCL 94652348226 No Longer Active Andre Barreto MD Active CIPRO 500 MG TAB 1 tablet by mouth twice daily CIPROFLOXACIN HCL 42412930205 No Longer Active Andre Barreto MD Active SYMBICORT 160-4.5 MCG/ACT AERO 2 puffs inhaled bid BUDESONIDE- FORMOTEROL FUMARATE 46363604205 No Longer Active Andre Barreto MD Active LIPITOR 40 MG TAB Take 1.5 tab by mouth daily ATORVASTATIN CALCIUM 01459216090 Active Andre Barreto MD Active LASIX 20 MG TAB 1 tablet by mouth daily PRN FUROSEMIDE 32452735852 Active Andre Barreto MD Active TOPROL XL 25 MG [id number] Take one by mouth daily METOPROLOL SUCCINATE 53983248976 Active Andre Barreto MD Active PLAVIX 75 MG TABS 1 tablet by mouth daily CLOPIDOGREL BISULFATE 43292773492 Active Andre Barreto MD Active NITROSTAT 0.4 MG SL TAB disolve 1 under tongue repeat if needed NITROGLYCERIN 97906968831 Active Andre Barreto MD Active DICLOFENAC SODIUM 75 MG TBEC 1 tablet by mouth twice daily DICLOFENAC SODIUM 36637200298 No Longer Active Andre Barreto MD Active FLUOXETINE HCL 20 MG CAPS TAKE 3 CAPSULES BY MOUTH ONCE DAILY. FLUOXETINE HCL 25530740734 Active Andre Barreto MD Active PROZAC 40 MG CAPS 1 cap by mouth at bedtime FLUOXETINE HCL 95911303790 No Longer Active Andre Barreto MD Active HYDROCODONE-ACETAMINOPHEN 5-325 MG TABS 1 po q 6hr PRN Pain HYDROCODONE-ACETAMINOPHEN 84152358873 No Longer Active Andre Barreto MD Active TRAMADOL HCL 50 MG TABS 2 po q 6 hrs prn TRAMADOL HCL 64191637234 Active Andre Barreto MD Active AMBIEN 5 MG TABS 1 po a hs prn ZOLPIDEM TARTRATE 67185215337 Active Andre Barreto MD Active BENICAR HCT 40-25 MG TABS Take one by mouth daily OLMESARTAN MEDOXOMIL- HCTZ 39833582529 Active Andre Barreto MD Active HYDROCODONE-ACETAMINOPHEN 5-325 MG TABS 1 po q 6hr PRN Pain HYDROCODONE-ACETAMINOPHEN 5-325 MG TABS 498464 HYDROCODONE-ACETAMINOPHEN Inactive PROZAC 40 MG CAPS 1 cap by mouth at bedtime PROZAC 40 MG CAPS 192342 FLUOXETINE HCL Inactive DICLOFENAC SODIUM 75 MG TBEC 1 tablet by mouth twice daily DICLOFENAC SODIUM 75 MG TBEC 121625 DICLOFENAC SODIUM Inactive SYMBICORT 160-4.5 MCG/ACT AERO 2 puffs inhaled bid SYMBICORT 160-4.5 MCG/ACT AERO BUDESONIDE-FORMOTEROL FUMARATE Inactive ZOFRAN 4 MG TABS 1 po q6hr PRN Nausea ZOFRAN 4 MG TABS 046641 ONDANSETRON HCL Inactive CIPRO 500 MG TAB 1 tablet by mouth twice daily CIPRO 500 MG TAB 465505 CIPROFLOXACIN HCL Inactive Vital Signs Date Name [...] ... - Chemistry sodium, serum 138 mmol/L 943-107 9662/02/28 potassium, serum 4.1 mmol/L 3.5-5.2 chloride, serum [...] 0.79 ng/dL 0.76-1.46 sodium, serum 142 mmol/L 964-511 0909/10/01 potassium, serum 4.0 mmol/L 3.5-5.2 chloride, serum [...] 0.50 mg/dL 0.00-1.00 cholesterol, serum 179 mg/dL 871-783 7435/10/01 triglyceride, serum, fasting 123 mg/dL 30-200 HDL [...] Negative Encounters Code Encounter Date Provider Facility CPT-26412 Level 3 Est. Patient 13:53:13 SUPERVISOR INTERNATIONAL RESERVATIONS Andre Barreto MD [facility] CPT-11905 Level 3 Est. Patient 09:16:12 CDT Andre Barreto MD [facility] CPT-39627 Level 3 Est. Patient 14:50:35 CDT Andre Barreto MD [facility] Procedures Code Procedure Name Date Entry Date Standard Description CPT-Cryo Cryotherapy 08:46:02 CDT CPT-41367 Chest 2V Frontal and Lat 14:02:13 SUPERVISOR INTERNATIONAL RESERVATIONS
--- OUTSIDE RECORDS SUMMARY | 2018-03-16 21:05 | XMS REPORT | Clinical Summary ---
Author Author Admin, EDUARDO Organization [facility] Address Unknown Phone Unavailable Allergies, [...] breath CORONARY ARTERY DISEASE 414.00 Active Andre Brareto MD Coronary atherosclerosis of unspecified type of vessel, [place] or graft OBSTRUCTIVE SLEEP APNEA 327.23 Active [...] Active Marcelle Key RMA Other abnormal glucose DYSPNEA ICD-786.09 Inactive Andre Barreto MD 2012 FATIGUE ICD-780.79 Inactive Andre Barreto MD 2012 DYSPNEA ICD-786.05 Inactive Andre Barerto MD 2012 Fever ICD-780.60 Inactive Andre Barreto MD 05/23 Medication List Medication Instructions Start Date Stop Date Generic Name NDC Status Provider Patient Instruction LIPITOR 40 MG TAB Take 1 tab by mouth daily ATORVASTATIN CALCIUM 40889902331 Active Andre Barreto MD Active ZOFRAN 4 MG TABS 1 po q6hr PRN Nausea ONDANSETRON HCL 66257831751 No Longer Active Andre Barreto MD Active CIPRO 500 MG TAB 1 tablet by mouth twice daily CIPROFLOXACIN HCL 97790666107 No Longer Active Andre Barreto MD Active SYMBICORT 160-4.5 MCG/ACT AERO 2 puffs inhaled bid BUDESONIDE- FORMOTEROL FUMARATE 51795050375 No Longer Active Andre Barreto MD Active LASIX 20 MG TAB 1 tablet by mouth daily PRN FUROSEMIDE 88151201235 Active Andre Barreto MD Active TOPROL XL 25 MG [id number] Take one by mouth daily METOPROLOL SUCCINATE 22967773455 Active Andre Barreto MD Active PLAVIX 75 MG TABS 1 tablet by mouth daily CLOPIDOGREL BISULFATE 44152072286 Active Andre Barreto MD Active NITROSTAT 0.4 MG SL TAB disolve 1 under tongue repeat if needed NITROGLYCERIN 89024397404 Active Andre Barreto MD Active DICLOFENAC SODIUM 75 MG TBEC 1 tablet by mouth twice daily DICLOFENAC SODIUM 44021855658 No Longer Active Andre Barreto MD Active FLUOXETINE HCL 20 MG CAPS TAKE 3 CAPSULES BY MOUTH ONCE DAILY. FLUOXETINE HCL 16491045823 Active Andre Barreto MD Active PROZAC 40 MG CAPS 1 cap by mouth at bedtime FLUOXETINE HCL 01432809577 No Longer Active Andre Barreto MD Active HYDROCODONE-ACETAMINOPHEN 5-325 MG TABS 1 po q 6hr PRN Pain HYDROCODONE-ACETAMINOPHEN 28685972350 No Longer Active Andre Barreto MD Active TRAMADOL HCL 50 MG TABS 2 po q 6 hrs prn TRAMADOL HCL 70146024515 Active Andre Barreto MD Active AMBIEN 5 MG TABS 1 po a hs prn ZOLPIDEM TARTRATE 85638619380 Active Andre Barreto MD Active BENICAR HCT 40-25 MG TABS Take one by mouth daily OLMESARTAN MEDOXOMIL- HCTZ 80590728713 Active Andre Barreto MD Active HYDROCODONE-ACETAMINOPHEN 5-325 MG TABS 1 po q 6hr PRN Pain HYDROCODONE-ACETAMINOPHEN 5-325 MG TABS 400057 HYDROCODONE-ACETAMINOPHEN Inactive PROZAC 40 MG CAPS 1 cap by mouth at bedtime PROZAC 40 MG CAPS 370361 FLUOXETINE HCL Inactive DICLOFENAC SODIUM 75 MG TBEC 1 tablet by mouth twice daily DICLOFENAC SODIUM 75 MG TBEC 389397 DICLOFENAC SODIUM Inactive SYMBICORT 160-4.5 MCG/ACT AERO 2 puffs inhaled bid SYMBICORT 160-4.5 MCG/ACT AERO BUDESONIDE-FORMOTEROL FUMARATE Inactive ZOFRAN 4 MG TABS 1 po q6hr PRN Nausea ZOFRAN 4 MG TABS 625538 ONDANSETRON HCL Inactive CIPRO 500 MG TAB 1 tablet by mouth twice daily CIPRO 500 MG TAB 209264 CIPROFLOXACIN HCL Inactive Vital Signs Date Name [...] ... - Chemistry sodium, serum 138 mmol/L 130-095 3156/02/28 potassium, serum 4.1 mmol/L 3.5-5.2 chloride, serum [...] 8.5-10.1 bilirubin, serum, total 0.50 mg/dL 0.00-1.00 RBC, urine, dipstick 1+ Negative protein, total urine random 1+ mg/dL Negative [...] Negative bilirubin, urine Negative Negative Lab Report: Comp. Metabolic Panel, Lipid Panel, CBC W/DIFF - Chemistry sodium, serum 145 mmol/L 877-518 5953/12/19 potassium, serum 4.3 mmol/L 3.5-5.2 chloride, serum 104 mmol/L 98-107 carbon dioxide, venous blood 29.9 mmol/L 21.0-32.0 blood glucose 121 mg/dL 65-110 urea nitrogen, blood 17 mg/dL 7-18 creatinine, serum 1.20 mg/dL 0.60-1.30 alanine aminotransferase (SGPT), serum 40 U/L 12-78 aspartate aminotransferase (SGOT), serum 25 U/L 15-37 calcium, serum 9.2 mg/dL 8.5-10.1 bilirubin, serum, total 0.50 mg/dL 0.00-1.00 cholesterol, serum 174 mg/dL 789-575 5665/12/19 triglyceride, serum, fasting 129 mg/dL 30-200 HDL [...] Negative Encounters Code Encounter Date Provider Facility CPT-60426 Level 3 Est. Patient 13:53:13 GUYLINE OPERATOR Andre Barreto MD [facility] CPT-56535 Level 3 Est. Patient 09:16:12 CDT Andre Barreto MD [facility] CPT-90324 Level 3 Est. Patient 14:50:35 CDT Andre Barreto MD [facility] Procedures Code Procedure Name Date Entry Date Standard Description CPT-Cryo Cryotherapy 08:59:26 GUYLINE OPERATOR CPT-Cryo Cryotherapy 08:46:02 CDT CPT-77538 Chest 2V Frontal and Lat 14:02:13 GUYLINE OPERATOR
--- OUTSIDE RECORDS SUMMARY | 2018-03-16 21:05 | XMS REPORT | Clinical Summary ---
Author Author Admin, EDUARDO Organization [facility] Address Unknown Phone Allergies, Adverse Reactions, [...] Coronary atherosclerosis of unspecified type of vessel, [place] or graft OBSTRUCTIVE SLEEP APNEA 327.23 Active [...] 1 po q6hr PRN Nausea ONDANSETRON HCL 45167345971 No Longer Active Andre Barreto MD Active CIPRO 500 MG TAB 1 tablet by mouth twice daily CIPROFLOXACIN HCL 59381309984 No Longer Active Andre Barreto MD Active SYMBICORT 160-4.5 MCG/ACT AERO 2 puffs inhaled bid BUDESONIDE- FORMOTEROL FUMARATE 20646281452 No Longer Active Andre Barreto MD Active LIPITOR 40 MG TAB Take 1.5 tab by mouth daily ATORVASTATIN CALCIUM 32225840837 Active Andre Barreto MD Active LASIX 20 MG TAB 1 tablet by mouth daily PRN FUROSEMIDE 11902286991 Active Andre Barreto MD Active TOPROL XL 25 MG [id number] Take one by mouth daily METOPROLOL SUCCINATE 58543651470 Active Andre Barreto MD Active PLAVIX 75 MG TABS 1 tablet by mouth daily CLOPIDOGREL BISULFATE 63012795009 Active Andre Barreto MD Active NITROSTAT 0.4 MG SL TAB disolve 1 under tongue repeat if needed NITROGLYCERIN 37023382194 Active Andre Barreto MD Active DICLOFENAC SODIUM 75 MG TBEC 1 tablet by mouth twice daily DICLOFENAC SODIUM 60294933050 No Longer Active Andre Barreto MD Active FLUOXETINE HCL 20 MG CAPS TAKE 3 CAPSULES BY MOUTH ONCE DAILY. FLUOXETINE HCL 59248712660 Active Andre Barreto MD Active PROZAC 40 MG CAPS 1 cap by mouth at bedtime FLUOXETINE HCL 08096248651 No Longer Active Andre Barreto MD Active HYDROCODONE-ACETAMINOPHEN 5-325 MG TABS 1 po q 6hr PRN Pain HYDROCODONE-ACETAMINOPHEN 38879513859 No Longer Active Andre Barreto MD Active TRAMADOL HCL 50 MG TABS 2 po q 6 hrs prn TRAMADOL HCL 79593899446 Active Andre Barreto MD Active AMBIEN 5 MG TABS 1 po a hs prn ZOLPIDEM TARTRATE 24533964908 Active Andre Barreto MD Active BENICAR HCT 40-25 MG TABS Take one by mouth daily OLMESARTAN MEDOXOMIL- HCTZ 04463033362 Active Andre Barreto MD Active HYDROCODONE-ACETAMINOPHEN 5-325 MG TABS 1 po q 6hr PRN Pain HYDROCODONE-ACETAMINOPHEN 5-325 MG TABS 750484 HYDROCODONE-ACETAMINOPHEN Inactive PROZAC 40 MG CAPS 1 cap by mouth at bedtime PROZAC 40 MG CAPS 762501 FLUOXETINE HCL Inactive DICLOFENAC SODIUM 75 MG TBEC 1 tablet by mouth twice daily DICLOFENAC SODIUM 75 MG TBEC 853132 DICLOFENAC SODIUM Inactive SYMBICORT 160-4.5 MCG/ACT AERO 2 puffs inhaled bid SYMBICORT 160-4.5 MCG/ACT AERO BUDESONIDE-FORMOTEROL FUMARATE Inactive ZOFRAN 4 MG TABS 1 po q6hr PRN Nausea ZOFRAN 4 MG TABS 309773 ONDANSETRON HCL Inactive CIPRO 500 MG TAB 1 tablet by mouth twice daily CIPRO 500 MG TAB 100749 CIPROFLOXACIN HCL Inactive Vital Signs Date Name [...] ... - Chemistry sodium, serum 138 mmol/L 779-811 5765/02/28 potassium, serum 4.1 mmol/L 3.5-5.2 chloride, serum [...] 0.79 ng/dL 0.76-1.46 sodium, serum 142 mmol/L 975-655 2120/10/01 potassium, serum 4.0 mmol/L 3.5-5.2 chloride, serum [...] 0.50 mg/dL 0.00-1.00 cholesterol, serum 179 mg/dL 824-455 3160/10/01 triglyceride, serum, fasting 123 mg/dL 30-200 HDL [...] Negative Encounters Code Encounter Date Provider Facility CPT-38507 Level 3 Est. 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 Patient 09:16:12 CDT Andre Barreto MD [facility] CPT-82053 Level 3 Est. Patient 14:50:35 CDT Andre Barreto MD [facility] Procedures Code Procedure Name Date Entry Date Standard Description CPT-Cryo Cryotherapy 08:46:02 CDT CPT-55289 Chest 2V Frontal and Lat 14:02:13 DIESEL SERVICE TECHNICIAN
--- OUTSIDE RECORDS SUMMARY | 2018-03-16 21:05 | XMS REPORT | Clinical Summary ---
Author Author Admin, EDUARDO Organization [facility] Address [...] Coronary atherosclerosis of unspecified type of vessel, [place] or graft OBSTRUCTIVE SLEEP APNEA 327.23 Active [...] 1 tab by mouth daily ATORVASTATIN CALCIUM 73817335280 Active Andre Barreto MD Active ZOFRAN 4 MG TABS 1 po q6hr PRN Nausea ONDANSETRON HCL 29396317043 No Longer Active Andre Barreto MD Active CIPRO 500 MG TAB 1 tablet by mouth twice daily CIPROFLOXACIN HCL 07392574687 No Longer Active Andre Barreto MD Active SYMBICORT 160-4.5 MCG/ACT AERO 2 puffs inhaled bid BUDESONIDE- FORMOTEROL FUMARATE 07094503218 No Longer Active Andre Barreto MD Active LASIX 20 MG TAB 1 tablet by mouth daily PRN FUROSEMIDE 33292659162 Active Andre Barreto MD Active TOPROL XL 25 MG [id number] Take one by mouth daily METOPROLOL SUCCINATE 29350309107 Active Andre Barreto MD Active PLAVIX 75 MG TABS 1 tablet by mouth daily CLOPIDOGREL BISULFATE 15503454095 Active Andre Barreto MD Active NITROSTAT 0.4 MG SL TAB disolve 1 under tongue repeat if needed NITROGLYCERIN 76319053318 Active Andre Barreto MD Active DICLOFENAC SODIUM 75 MG TBEC 1 tablet by mouth twice daily DICLOFENAC SODIUM 74834438159 No Longer Active Andre Barreto MD Active FLUOXETINE HCL 20 MG CAPS TAKE 3 CAPSULES BY MOUTH ONCE DAILY. FLUOXETINE HCL 20512936225 Active Andre Barreto MD Active PROZAC 40 MG CAPS 1 cap by mouth at bedtime FLUOXETINE HCL 05757654561 No Longer Active Andre Barreto MD Active HYDROCODONE-ACETAMINOPHEN 5-325 MG TABS 1 po q 6hr PRN Pain HYDROCODONE-ACETAMINOPHEN 45439938141 No Longer Active Andre Barreto MD Active TRAMADOL HCL 50 MG TABS 2 po q 6 hrs prn TRAMADOL HCL 12255237887 Active Andre Barreto MD Active AMBIEN 5 MG TABS 1 po a hs prn ZOLPIDEM TARTRATE 59236736768 Active Andre Barreto MD Active BENICAR HCT 40-25 MG TABS Take one by mouth daily OLMESARTAN MEDOXOMIL- HCTZ 34305493392 Active Andre Barreto MD Active HYDROCODONE-ACETAMINOPHEN 5-325 MG TABS 1 po q 6hr PRN Pain HYDROCODONE-ACETAMINOPHEN 5-325 MG TABS 352023 HYDROCODONE-ACETAMINOPHEN Inactive PROZAC 40 MG CAPS 1 cap by mouth at bedtime PROZAC 40 MG CAPS 425828 FLUOXETINE HCL Inactive DICLOFENAC SODIUM 75 MG TBEC 1 tablet by mouth twice daily DICLOFENAC SODIUM 75 MG TBEC 720611 DICLOFENAC SODIUM Inactive SYMBICORT 160-4.5 MCG/ACT AERO 2 puffs inhaled bid SYMBICORT 160-4.5 MCG/ACT AERO BUDESONIDE-FORMOTEROL FUMARATE Inactive ZOFRAN 4 MG TABS 1 po q6hr PRN Nausea ZOFRAN 4 MG TABS 016232 ONDANSETRON HCL Inactive CIPRO 500 MG TAB 1 tablet by mouth twice daily CIPRO 500 MG TAB 934721 CIPROFLOXACIN HCL Inactive Vital Signs Date Name [...] dipstick 1+ Negative sodium, serum 138 mmol/L 636-156 5546/02/28 potassium, serum 4.1 mmol/L 3.5-5.2 chloride, serum [...] W/DIFF - Chemistry sodium, serum 145 mmol/L 434-283 0135/12/19 potassium, serum 4.3 mmol/L 3.5-5.2 chloride, serum 104 mmol/L 98-107 carbon dioxide, venous blood 29.9 mmol/L 21.0-32.0 blood glucose 121 mg/dL 65-110 urea nitrogen, blood 17 mg/dL 7-18 creatinine, serum 1.20 mg/dL 0.60-1.30 alanine aminotransferase (SGPT), serum 40 U/L 12-78 aspartate aminotransferase (SGOT), serum 25 U/L 15-37 calcium, serum 9.2 mg/dL 8.5-10.1 bilirubin, serum, total 0.50 mg/dL 0.00-1.00 cholesterol, serum 174 mg/dL 466-606 0642/12/19 triglyceride, serum, fasting 129 mg/dL 30-200 HDL [...] Negative Encounters Code Encounter Date Provider Facility CPT-65016 Level 3 Est. 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 Patient 09:16:12 CDT Andre Barreto MD [facility] CPT-94489 Level 3 Est. Patient 14:50:35 CDT Andre Barreto MD [facility] Procedures Code Procedure Name Date Entry Date Standard Description CPT-Cryo Cryotherapy 08:59:26 MACHINIST HELPER CPT-Cryo Cryotherapy 08:46:02 CDT CPT-03550 Chest 2V Frontal and Lat 14:02:13 MACHINIST HELPER
--- OUTSIDE RECORDS SUMMARY | 2018-03-16 21:06 | XMS REPORT | Clinical Summary ---
Author Author Admin, E Organization [facility] Address Unknown Phone Allergies, Adverse Reactions, [...] Coronary atherosclerosis of unspecified type of vessel, [place] or graft OBSTRUCTIVE SLEEP APNEA 327.23 Active [...] 1 po q6hr PRN Nausea ONDANSETRON HCL 38142696140 No Longer Active Andre Barreto MD Active CIPRO 500 MG TAB 1 tablet by mouth twice daily CIPROFLOXACIN HCL 53636609270 No Longer Active Andre Barreto MD Active SYMBICORT 160-4.5 MCG/ACT AERO 2 puffs inhaled bid BUDESONIDE- FORMOTEROL FUMARATE 87671469348 No Longer Active Andre Barreto MD Active LIPITOR 40 MG TAB Take 1.5 tab by mouth daily ATORVASTATIN CALCIUM 11491145076 Active Andre Barreto MD Active LASIX 20 MG TAB 1 tablet by mouth daily PRN FUROSEMIDE 95436815486 Active Andre Barreto MD Active TOPROL XL 25 MG [id number] Take one by mouth daily METOPROLOL SUCCINATE 87569032913 Active Andre Barreto MD Active PLAVIX 75 MG TABS 1 tablet by mouth daily CLOPIDOGREL BISULFATE 39885523958 Active Andre Barreto MD Active NITROSTAT 0.4 MG SL TAB disolve 1 under tongue repeat if needed NITROGLYCERIN 89031504995 Active Andre Barreto MD Active DICLOFENAC SODIUM 75 MG TBEC 1 tablet by mouth twice daily DICLOFENAC SODIUM 22654881589 No Longer Active Andre Barreto MD Active FLUOXETINE HCL 20 MG CAPS TAKE 3 CAPSULES BY MOUTH ONCE DAILY. FLUOXETINE HCL 96893906141 Active Andre Barreto MD Active PROZAC 40 MG CAPS 1 cap by mouth at bedtime FLUOXETINE HCL 27866397746 No Longer Active Andre Barreto MD Active HYDROCODONE-ACETAMINOPHEN 5-325 MG TABS 1 po q 6hr PRN Pain HYDROCODONE-ACETAMINOPHEN 45137446635 No Longer Active Andre Barreto MD Active TRAMADOL HCL 50 MG TABS 2 po q 6 hrs prn TRAMADOL HCL 24258225943 Active Andre Barreto MD Active AMBIEN 5 MG TABS 1 po a hs prn ZOLPIDEM TARTRATE 48109355351 Active Andre Barreto MD Active BENICAR HCT 40-25 MG TABS Take one by mouth daily OLMESARTAN MEDOXOMIL- HCTZ 99459761397 Active Andre Barreto MD Active HYDROCODONE-ACETAMINOPHEN 5-325 MG TABS 1 po q 6hr PRN Pain HYDROCODONE-ACETAMINOPHEN 5-325 MG TABS 125759 HYDROCODONE-ACETAMINOPHEN Inactive PROZAC 40 MG CAPS 1 cap by mouth at bedtime PROZAC 40 MG CAPS 614174 FLUOXETINE HCL Inactive DICLOFENAC SODIUM 75 MG TBEC 1 tablet by mouth twice daily DICLOFENAC SODIUM 75 MG TBEC 094552 DICLOFENAC SODIUM Inactive SYMBICORT 160-4.5 MCG/ACT AERO 2 puffs inhaled bid SYMBICORT 160-4.5 MCG/ACT AERO BUDESONIDE-FORMOTEROL FUMARATE Inactive ZOFRAN 4 MG TABS 1 po q6hr PRN Nausea ZOFRAN 4 MG TABS 757719 ONDANSETRON HCL Inactive CIPRO 500 MG TAB 1 tablet by mouth twice daily CIPRO 500 MG TAB 924151 CIPROFLOXACIN HCL Inactive Vital Signs Date Name [...] ... - Chemistry sodium, serum 138 mmol/L 424-860 0388/02/28 potassium, serum 4.1 mmol/L 3.5-5.2 chloride, serum [...] 0.79 ng/dL 0.76-1.46 sodium, serum 142 mmol/L 672-459 5427/10/01 potassium, serum 4.0 mmol/L 3.5-5.2 chloride, serum [...] 0.50 mg/dL 0.00-1.00 cholesterol, serum 179 mg/dL 161-703 0335/10/01 triglyceride, serum, fasting 123 mg/dL 30-200 HDL [...] Negative Encounters Code Encounter Date Provider Facility CPT-09071 Level 3 Est. Patient 13:53:13 BLENDING SUPERVISOR Andre Barreto MD [facility] CPT-83660 Level 3 Est. Patient 09:16:12 CDT Andre Barreto MD [facility] CPT-87459 Level 3 Est. Patient 14:50:35 CDT Andre Barreto MD [facility] Procedures Code Procedure Name Date Entry Date Standard Description CPT-Cryo Cryotherapy 08:46:02 CDT CPT-70015 Chest 2V Frontal and Lat 14:02:13 BLENDING SUPERVISOR
--- OUTSIDE RECORDS SUMMARY | 2018-03-16 21:06 | XMS REPORT ---
Author Author [facility] Medical Staff Organization [facility] Address [address], [place] [address] Phone [phone] Care Team Providers Care Brushing Machine Operator Name Role Phone ANDRE ALFARO MD PP [phone] Summary purpose TRANSITION OF CARE AUTO GENERATION [...] tests and/or laboratory data RESULTS Radiology Results 30-19-343760:15:00 Bilateral Screen Digital Mammo PACs Image DATE OF EXAM: Feb 27 2014 [facility] 0845-BILAT SCREEN DIG MAMMO : RADIOLOGY REPORT DATE OF SERVICE: 02/27/14 HISTORY: Screening exam BILATERAL DIGITAL SCREENING MAMMOGRAM WITH iCAD SecondLook 7.2-H+ 0800 HOURS Comparison is made with 10/28/2010 and 03/07/2010. There are stable smooth-walled breast nodules bilaterally. There are no irregular masses. There are fatty involutional changes bilaterally. There is no distortion. There are no grouped microcalculi. IMPRESSION: Stable benign mammograms BI-RADS II. MD TRAV Miguel/ut02/27/2014 11:22:00 / 02/27/2014 11:26:44 cc:Dr. Andre Alfaro This document has been electronically Signed by: On: DATE OF EXAM: Feb 27 2014 [facility] 0845-BILAT SCREEN DIG MAMMO : RADIOLOGY REPORT CORRECT REPORT DATE OF SERVICE: 02/27/14 HISTORY: Screening exam BILATERAL DIGITAL SCREENING MAMMOGRAM WITH iCAD SecondLook 7.2-H+ 0800 HOURS Comparison is made with 10/28/2010 and 03/07/2010. There are stable smooth-walled breast nodules bilaterally. There are no irregular masses. There are fatty involutional changes bilaterally. There is no distortion. There are no grouped microcalculi. IMPRESSION: Stable benign mammograms BI-RADS II. MD TRAV Miguel/ut02/27/2014 11:22:00 / 02/27/2014 11:26:44 cc:Dr. Andre Alfaro This document has been electronically Signed by: On: DATE OF EXAM: Feb 27 2014 [facility] 0845-BILAT SCREEN DIG MAMMO : RADIOLOGY REPORT CORRECT REPORT DATE OF SERVICE: 02/27/14 HISTORY: Screening exam BILATERAL DIGITAL SCREENING MAMMOGRAM WITH iCAD SecondLook 7.2-H+ 0800 HOURS Comparison is made with 10/28/2010 and 03/07/2010. There are stable smooth-walled breast nodules bilaterally. There are no irregular masses. There are fatty involutional changes bilaterally. There is no distortion. There are no grouped microcalculi. IMPRESSION: Stable benign mammograms BI-RADS II. MD TRAV Miguel/ut02/27/2014 11:22:00 / 02/27/2014 11:26:44 cc:Dr. Andre Alfaro This document has been electronically Signed by: TANIA OVERTON On: Feb 27 20142:15P Result Amended on 2014-02-27 at 13:00:46. Previous status was SC. Result Amended on 2014-02-27 at 14:16:00. Previous status was SC. History of procedures No procedures recorded for [...]
--- OUTSIDE RECORDS SUMMARY | 2018-03-16 21:06 | XMS REPORT | Clinical Summary ---
Author Author Admin, EDUARDO Organization [facility] Address Unknown Phone Unavailable Allergies, Adverse Reactions, [...] of vessel, [place] or graft OBSTRUCTIVE SLEEP APNEA 327.23 Active [...] 1 tab by mouth daily ATORVASTATIN CALCIUM 14321192893 Active Andre Barreto MD Active ZOFRAN 4 MG TABS 1 po q6hr PRN Nausea ONDANSETRON HCL 56905568111 No Longer Active Andre Barreto MD Active CIPRO 500 MG TAB 1 tablet by mouth twice daily CIPROFLOXACIN HCL 52393542285 No Longer Active Andre Barreto MD Active SYMBICORT 160-4.5 MCG/ACT AERO 2 puffs inhaled bid BUDESONIDE- FORMOTEROL FUMARATE 20647466057 No Longer Active Andre Barreto MD Active LASIX 20 MG TAB 1 tablet by mouth daily PRN FUROSEMIDE 85068094304 Active Andre Barreto MD Active TOPROL XL 25 MG [id number] Take one by mouth daily METOPROLOL SUCCINATE 58049559975 Active Andre Barreto MD Active PLAVIX 75 MG TABS 1 tablet by mouth daily CLOPIDOGREL BISULFATE 23716653300 Active Andre Barreto MD Active NITROSTAT 0.4 MG SL TAB disolve 1 under tongue repeat if needed NITROGLYCERIN 06854452719 Active Andre Barreto MD Active DICLOFENAC SODIUM 75 MG TBEC 1 tablet by mouth twice daily DICLOFENAC SODIUM 55976016505 No Longer Active Andre Barreto MD Active FLUOXETINE HCL 20 MG CAPS TAKE 3 CAPSULES BY MOUTH ONCE DAILY. FLUOXETINE HCL 91002862616 Active Andre Barreto MD Active PROZAC 40 MG CAPS 1 cap by mouth at bedtime FLUOXETINE HCL 52241034108 No Longer Active Andre Barreto MD Active HYDROCODONE-ACETAMINOPHEN 5-325 MG TABS 1 po q 6hr PRN Pain HYDROCODONE-ACETAMINOPHEN 54232179311 No Longer Active Andre Barreto MD Active TRAMADOL HCL 50 MG TABS 2 po q 6 hrs prn TRAMADOL HCL 42350488832 Active Andre Barreto MD Active AMBIEN 5 MG TABS 1 po a hs prn ZOLPIDEM TARTRATE 97523151376 Active Andre Barreto MD Active BENICAR HCT 40-25 MG TABS Take one by mouth daily OLMESARTAN MEDOXOMIL- HCTZ 51114211299 Active Andre Barreto MD Active HYDROCODONE-ACETAMINOPHEN 5-325 MG TABS 1 po q 6hr PRN Pain HYDROCODONE-ACETAMINOPHEN 5-325 MG TABS 427417 HYDROCODONE-ACETAMINOPHEN Inactive PROZAC 40 MG CAPS 1 cap by mouth at bedtime PROZAC 40 MG CAPS 632165 FLUOXETINE HCL Inactive DICLOFENAC SODIUM 75 MG TBEC 1 tablet by mouth twice daily DICLOFENAC SODIUM 75 MG TBEC 783582 DICLOFENAC SODIUM Inactive SYMBICORT 160-4.5 MCG/ACT AERO 2 puffs inhaled bid SYMBICORT 160-4.5 MCG/ACT AERO BUDESONIDE-FORMOTEROL FUMARATE Inactive ZOFRAN 4 MG TABS 1 po q6hr PRN Nausea ZOFRAN 4 MG TABS 592737 ONDANSETRON HCL Inactive CIPRO 500 MG TAB 1 tablet by mouth twice daily CIPRO 500 MG TAB 864455 CIPROFLOXACIN HCL Inactive Vital Signs Date Name [...] dipstick 1+ Negative sodium, serum 138 mmol/L 073-234 3591/02/28 potassium, serum 4.1 mmol/L 3.5-5.2 chloride, serum [...] W/DIFF - Chemistry sodium, serum 145 mmol/L 751-975 9722/12/19 potassium, serum 4.3 mmol/L 3.5-5.2 chloride, serum 104 mmol/L 98-107 carbon dioxide, venous blood 29.9 mmol/L 21.0-32.0 blood glucose 121 mg/dL 65-110 urea nitrogen, blood 17 mg/dL 7-18 creatinine, serum 1.20 mg/dL 0.60-1.30 alanine aminotransferase (SGPT), serum 40 U/L 12-78 aspartate aminotransferase (SGOT), serum 25 U/L 15-37 calcium, serum 9.2 mg/dL 8.5-10.1 bilirubin, serum, total 0.50 mg/dL 0.00-1.00 cholesterol, serum 174 mg/dL 109-121 6834/12/19 triglyceride, serum, fasting 129 mg/dL 30-200 HDL [...] Negative Encounters Code Encounter Date Provider Facility CPT-28538 Level 3 Est. Patient 13:53:13 BIOMETRICS INSTRUCTOR Andre Barreto MD [facility] CPT-90226 Level 3 Est. Patient 09:16:12 CDT Andre Barreto MD [facility] CPT-16552 Level 3 Est. Patient 14:50:35 CDT Andre Barreto MD [facility] Procedures Code Procedure Name Date Entry Date Standard Description CPT-Cryo Cryotherapy 08:59:26 BIOMETRICS INSTRUCTOR CPT-Cryo Cryotherapy 08:46:02 CDT CPT-87734 Chest 2V Frontal and Lat 14:02:13 BIOMETRICS INSTRUCTOR
--- OUTSIDE RECORDS SUMMARY | 2018-03-16 21:06 | XMS REPORT | Clinical Summary ---
Author Author Admin, EDUARDO Organization [facility] Address Unknown Phone Allergies, Adverse Reactions, Alerts [...] Coronary atherosclerosis of unspecified type of vessel, [place] or graft OBSTRUCTIVE SLEEP APNEA 327.23 Active [...] 1 po q6hr PRN Nausea ONDANSETRON HCL 83874887006 No Longer Active Andre Barreto MD Active CIPRO 500 MG TAB 1 tablet by mouth twice daily CIPROFLOXACIN HCL 79095291095 No Longer Active Andre Barreto MD Active SYMBICORT 160-4.5 MCG/ACT AERO 2 puffs inhaled bid BUDESONIDE- FORMOTEROL FUMARATE 03144689247 No Longer Active Andre Barreto MD Active LIPITOR 40 MG TAB Take 1.5 tab by mouth daily ATORVASTATIN CALCIUM 59756355579 Active Andre Barreto MD Active LASIX 20 MG TAB 1 tablet by mouth daily PRN FUROSEMIDE 92969040028 Active Andre Barreto MD Active TOPROL XL 25 MG [id number] Take one by mouth daily METOPROLOL SUCCINATE 90845987394 Active Andre Barreto MD Active PLAVIX 75 MG TABS 1 tablet by mouth daily CLOPIDOGREL BISULFATE 63676560179 Active Andre Barreto MD Active NITROSTAT 0.4 MG SL TAB disolve 1 under tongue repeat if needed NITROGLYCERIN 51195155154 Active Andre Barreto MD Active DICLOFENAC SODIUM 75 MG TBEC 1 tablet by mouth twice daily DICLOFENAC SODIUM 32254149495 No Longer Active Andre Barreto MD Active FLUOXETINE HCL 20 MG CAPS TAKE 3 CAPSULES BY MOUTH ONCE DAILY. FLUOXETINE HCL 55290832923 Active Andre Barreto MD Active PROZAC 40 MG CAPS 1 cap by mouth at bedtime FLUOXETINE HCL 09446877164 No Longer Active Andre Barreto MD Active HYDROCODONE-ACETAMINOPHEN 5-325 MG TABS 1 po q 6hr PRN Pain HYDROCODONE-ACETAMINOPHEN 53428480637 No Longer Active Andre Barreto MD Active TRAMADOL HCL 50 MG TABS 2 po q 6 hrs prn TRAMADOL HCL 77600895500 Active Andre Barreto MD Active AMBIEN 5 MG TABS 1 po a hs prn ZOLPIDEM TARTRATE 10688069267 Active Andre Barreto MD Active BENICAR HCT 40-25 MG TABS Take one by mouth daily OLMESARTAN MEDOXOMIL- HCTZ 64280452050 Active Andre Barreto MD Active HYDROCODONE-ACETAMINOPHEN 5-325 MG TABS 1 po q 6hr PRN Pain HYDROCODONE-ACETAMINOPHEN 5-325 MG TABS 152546 HYDROCODONE-ACETAMINOPHEN Inactive PROZAC 40 MG CAPS 1 cap by mouth at bedtime PROZAC 40 MG CAPS 575361 FLUOXETINE HCL Inactive DICLOFENAC SODIUM 75 MG TBEC 1 tablet by mouth twice daily DICLOFENAC SODIUM 75 MG TBEC 539998 DICLOFENAC SODIUM Inactive SYMBICORT 160-4.5 MCG/ACT AERO 2 puffs inhaled bid SYMBICORT 160-4.5 MCG/ACT AERO BUDESONIDE-FORMOTEROL FUMARATE Inactive ZOFRAN 4 MG TABS 1 po q6hr PRN Nausea ZOFRAN 4 MG TABS 330533 ONDANSETRON HCL Inactive CIPRO 500 MG TAB 1 tablet by mouth twice daily CIPRO 500 MG TAB 798989 CIPROFLOXACIN HCL Inactive Vital Signs Date Name [...] ... - Chemistry sodium, serum 138 mmol/L 487-646 7320/02/28 potassium, serum 4.1 mmol/L 3.5-5.2 chloride, serum [...] 0.79 ng/dL 0.76-1.46 sodium, serum 142 mmol/L 568-332 0311/10/01 potassium, serum 4.0 mmol/L 3.5-5.2 chloride, serum [...] 0.50 mg/dL 0.00-1.00 cholesterol, serum 179 mg/dL 723-636 6415/10/01 triglyceride, serum, fasting 123 mg/dL 30-200 HDL [...] Negative Encounters Code Encounter Date Provider Facility CPT-84065 Level 3 Est. 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 Patient 09:16:12 CDT Andre Barreto MD [facility] CPT-32179 Level 3 Est. Patient 14:50:35 CDT Andre Barreto MD [facility] Procedures Code Procedure Name Date Entry Date Standard Description CPT-Cryo Cryotherapy 08:46:02 CDT CPT-64993 Chest 2V Frontal and Lat 14:02:13 TETRYL DISSOLVER OPERATOR
--- OUTSIDE RECORDS SUMMARY | 2018-03-16 21:07 | XMS REPORT | Continuity of Care Document ---
Author Author [facility] Address Unknown Phone Unavailable Allergies Active Description Code Type Severity Reaction Onset Reported/Identified Relationship to Patient Clinical Status Yes Penicillins 476 Drug Allergy N/ A Hives Yes Sulfa (Sulfonamide Antibiotics) 491 Drug Allergy N/A Hives Yes Zinc 841 Drug Allergy N/A Hives Yes No Known Medication Allergies Drug N/A N/A Yes penicillin 3 Drug N/A N/A Yes sulfa drug 16 Drug N/A N/A Yes Penicillins Penicillins Drug Allergy Severe rash 09/24/2011 Yes zinc zinc Drug Allergy Severe rash 09/24/2011 Medications There is no data. Problems Date Dx Coded Attending Type Code Diagnosis Diagnosed By 05/15/2014 ANDRE ALFARO 729.89 MUSCSKEL SYMPT LIMB NEC 05/15/2014 ANDRE ALFARO V57.1 PHYSICAL THERAPY NEC 07/02/2014 ANDRE ALFARO 729.89 MUSCEL SYMPT LIMB NEC 07/02/2014 ANDRE ALFARO V57.1 PHYSICAL THERAPY NEC 08/17/2016 L21.8 Other seborrheic dermatitis Jose AlfredoNelly 08/17/2016 L30.4 Erythema intertrigo Jose AlfredoHayderNelly 08/17/2016 L57.0 Actinic keratosis Jose AlfredoHayderNelly 08/17/2016 L82.1 Other seborrheic keratosis Nelly Veliz 08/17/2016 Z71.89 Other specified counseling Nelly Veliz 08/17/2016 Z85.828 Personal history of other malignant neoplasm of skin CaioHayder ashtonmejia Rodas 09/22/2016 Andre Alfaro MD G47.33 Obstructive sleep apnea 03/27/2017 Andre Alfaro MD J44.0 Acute exacerbation of chronic bronchitis 04/22/2017 Andre Alfaro MD J32.9 Sinusitis 05/14/2017 Anrde Alfaro MD L02.91 Abscess, skin 05/14/2017 LINA ANAYAINA D L02.91 Cutaneous abscess, unspecified 06/21/2017 Andre Alfaro MD E78.2 Mixed hyperlipidemia 06/21/2017 Andre Alfaro MD H81.10 Benign paroxysmal positional vertigo 07/30/2017 Andre Alfaro MD F32.1 Major depressive disorder, single episode, moderate 07/30/2017 Andre Alfaro MD Z00.00 Well Adult Exam 07/30/2017 Andre Alfaro MD Z68.43 Body Mass Index 50.0-59.9 Adult 02/02/2018 Andre Alfaro MD E66.01 Obesity Class III (BMI >=40) Procedures Code Description [place] [address] PT EVALUATION 05/15/2014 42864 THERAPEUTIC EXERCISES 05/15/2014 G8978 MOBILITY CURRENT STATUS 05/15/2014 G8979 MOBILITY GOAL STATUS 05/15/2014 37856 COMP SCREEN MAMMOGRAM ADD- ON 08/23/2015 91276 MAMMOGRAM, SCREENING 08/23/2015 80244 Destruction (eg, laser surgery, electrosurgery, cryosurgery, chemosurgery, surgical curettement), pr Nelly Veliz 08/17/2016 14377 Destruction (eg, laser surgery, electrosurgery, cryosurgery, chemosurgery, surgical curettement), pr Nelly Veliz 08/17/2016 71379 Level III new patient office visit Nelly Veliz 08/17/2016 16680 Destruction (eg, laser surgery, electrosurgery, cryosurgery, chemosurgery, surgical curettement), pr Nelly Veliz 09/11/2016 53029 Destruction (eg, laser surgery, electrosurgery, cryosurgery, chemosurgery, surgical curettement), pr Nelly Veliz 09/11/2016 44952 Level III new patient office visit Nelly Veliz 09/11/2016 76523 CULTURE OTHR SPECIMN AEROBIC FRAZELL PAINTER, JILLINA 05/14/2017 45398 CULTURE AEROBIC IDENTIFY FRAZELL PAINTER, JILLINA 05/14/2017 79575 MICROBE SUSCEPTIBLE BRAYDON NATL PAINTER, JILLINA 05/14/2017 46570 SMEAR GRAM STAIN JACKSON HENDERSON, JILLINA 05/14/2017 Results Test Result Range CBC - 03/28/15 10:39 MEAN CELL HGB 31.0 pg 27.0-33.0 MEAN CELL HGB CONCENTRATION 33.1 g/dL 32.0-37.0 MEAN CELL VOLUME 93.6 fl 80.0-100.0 RED BLOOD CELL 3.77 m/cumm 4.00-6.00 RED CELL DISTRIBUTION WIDTH 13.5 % 11.0-15.6 WHITE BLOOD CELL 8.9 k/cumm 5.0-10.0 HEMOGLOBIN 11.7 gm/dL 12.0-16.0 HEMATOCRIT 35.3 % 37.0-47.0 PLATELET COUNT 217 k/cumm 150-450 PLT FUNCTION, P2Y12 (PLAVIX) - 03/28/15 10:39 PLATELET COUNT 217 k/cumm 150-450 PLT FUNCTION P2Y12 234 PRU 194-418 PROTHROMBIN TIME WITH INR - 03/28/15 10:39 INTERNATIONAL NORMAL RATIO 1.0 0.9-1.1 PROTHROMBIN TIME 11.0 sec 9.3-12.2 PARTIAL THROMBOPLASTIN TIME - 03/28/15 10:39 PARTIAL THROMBOPLASTIN TIME 32 sec 23-39 METABOLIC PANEL, BASIC - 03/28/15 10:39 POTASSIUM 3.5 mmol/L 3.5-5.3 EST GFR (MDRD) 35 mL/min > 59 ANION GAP 10 mmol/L 5-15 EST CrCl (CG) 46 mL/min > 59 GLUCOSE 100 mg/dL 70-99 CALCIUM 9.1 mg/dL 8.5-10.1 BLOOD UREA NITROGEN 22 mg/dL 7-20 CREATININE 1.5 mg/dL 0.6-1.0 SODIUM 142 mmol/L 135-148 CHLORIDE 103 mmol/L 98-110 CARBON DIOXIDE 29 mmol/L 21-32 MAGNESIUM - 03/28/15 10:39 MAGNESIUM 1.7 mg/dL 1.8-2.4 Encounters ACCT No. Visit Date/Time Discharge Status Pt. Type Provider Facility Loc./Unit Complaint [id number] 05/14/2017 09:20:00 05/14/2017 09:20:00 DIS Outpatient JACKSON HENDERSON [facility] 08/18/2017 18:21:42 ACT Document Registration [id number] 09/10/2016 10:58:00 09/10/2016 23:59:59 CLS Outpatient [id number] 03/28/2015 09:38:00 03/29/2015 09:25:00 DIS Outpatient Patti DYE, Juan [facility] ER E.CVLO [id number] 05/18/2017 16:42:19 05/18/2017 23:59:59 CLS Preadmit MARA MCELROY [facility] Surgery ops [id number] 04/05/2017 10:57:20 04/05/2017 23:59:59 CLS Preadmit DIANA FERNANDEZ [facility] Sleep Hypersomnia, Snoring,Sleep Apnea,Hypertension [id number] 03/29/2017 20:51:00 03/29/2017 23:59:59 CLS Emergency [facility] ED ER [id number] 09/23/2016 16:13:32 09/23/2016 23:59:59 DIS Outpatient ANDRE ALFARO [facility] RAD screening [id number] 02/14/2018 14:12:01 ACT Unknown Mary Lou DYE, Andre [id number] 08/23/2015 10:03:00 08/23/2015 10:03:00 DIS Outpatient ANDRE ALFARO [facility] RAD [id number] 06/15/2014 00:01:00 07/02/2014 11:12:00 DIS Outpatient ANDRE ALFARO [facility] PT [id number] 05/16/2014 00:01:00 06/14/2014 23:59:00 DIS Outpatient ANDRE ALFARO [facility] PT [id number] 04/23/2014 11:02:00 05/15/2014 23:59:00 DIS Outpatient ANDRE ALFARO [facility] PT [id number] 02/27/2014 07:34:00 02/27/2014 07:34:00 DIS Outpatient ANDRE ALFARO [facility] RAD
--- OUTSIDE RECORDS SUMMARY | 2018-03-16 21:07 | XMS REPORT ---
Author Author [facility] Organization [facility] Address [address], [place] [address] Phone [phone] Care Team Providers Care Equipment Hire Manager Name Role Phone ANDRE ALFARO MD PP [phone] Summary purpose TRANSITION OF CARE AUTO GENERATION Chief Complaint and Reason for Visit Admit Diagnosis 1 OT SCREEN MAMMOGRAM Problem list No authorized problems tracked for [...] tests and/or laboratory data RESULTS Radiology Results 03-04-621266:15:00 Bilateral Screen Digital Mammo PACs Image DATE OF EXAM: Feb 27 2014 [facility] 0845-BILAT SCREEN DIG MAMMO : [...] microcalculi. IMPRESSION: Stable benign mammograms BI-RADS II. Bruce Donohue MD [facility]/md02/27/2014 11:22:00 / 02/27/2014 11:26:44 cc:Dr. Andre Alfaro This document has been electronically Signed by: On: DATE OF EXAM: Feb 27 2014 [facility] 0845-BILAT SCREEN DIG MAMMO : [...] Stable benign mammograms BI-RADS II. MD TRAV Miguel/md02/27/2014 11:22:00 / 02/27/2014 11:26:44 cc:Dr. Andre Alfaro [...] Stable benign mammograms BI-RADS II. MD TRAV Miguel/md02/27/2014 11:22:00 / 02/27/2014 11:26:44 cc:Dr. Andre Alfaro This document has been electronically Signed by: BRUCE DONOHUE On: Feb 27 20142:15P Result Amended on 2014-02-27 at 13:00:46. Previous status was MN. Result Amended on 2014-02-27 at 14:16:00. Previous status was MN. History of procedures Procedure Code Code Type Description Date Performed Performing Physician 24976 CPT-4 MAMMOGRAM, SCREENING 02-27-2014 ANDRE ALFARO 55009 CPT-4 COMP SCREEN MAMMOGRAM ADD-ON 02-27-2014 ANDRE ALFARO Functional status No functional or [...]
--- OUTSIDE RECORDS SUMMARY | 2018-03-16 21:07 | XMS REPORT | Clinical Summary ---
Author Author Admin, E Organization [facility] Address Unknown Phone Unavailable Allergies, Adverse [...] of breath CORONARY ARTERY DISEASE 414.00 Active Ander Barreto MD Coronary atherosclerosis of unspecified type of vessel, [place] or graft OBSTRUCTIVE SLEEP APNEA 327.23 Active [...] 1 tab by mouth daily ATORVASTATIN CALCIUM 43113108656 Active Andre Barreto MD Active ZOFRAN 4 MG TABS 1 po q6hr PRN Nausea ONDANSETRON HCL 35518083865 No Longer Active Andre Barreto MD Active CIPRO 500 MG TAB 1 tablet by mouth twice daily CIPROFLOXACIN HCL 96188806295 No Longer Active Andre Barreto MD Active SYMBICORT 160-4.5 MCG/ACT AERO 2 puffs inhaled bid BUDESONIDE- FORMOTEROL FUMARATE 02892512914 No Longer Active Andre Barreto MD Active LASIX 20 MG TAB 1 tablet by mouth daily PRN FUROSEMIDE 46884979533 Active Andre Barreto MD Active TOPROL XL 25 MG [id number] Take one by mouth daily METOPROLOL SUCCINATE 29225895271 Active Andre Barreto MD Active PLAVIX 75 MG TABS 1 tablet by mouth daily CLOPIDOGREL BISULFATE 59768661550 Active Andre Barreto MD Active NITROSTAT 0.4 MG SL TAB disolve 1 under tongue repeat if needed NITROGLYCERIN 31724122998 Active Andre Barreto MD Active DICLOFENAC SODIUM 75 MG TBEC 1 tablet by mouth twice daily DICLOFENAC SODIUM 88280534135 No Longer Active Andre Barreto MD Active FLUOXETINE HCL 20 MG CAPS TAKE 3 CAPSULES BY MOUTH ONCE DAILY. FLUOXETINE HCL 68968453246 Active Andre Barreto MD Active PROZAC 40 MG CAPS 1 cap by mouth at bedtime FLUOXETINE HCL 97889472259 No Longer Active Andre Barreto MD Active HYDROCODONE-ACETAMINOPHEN 5-325 MG TABS 1 po q 6hr PRN Pain HYDROCODONE-ACETAMINOPHEN 06677980878 No Longer Active Andre Barreto MD Active TRAMADOL HCL 50 MG TABS 2 po q 6 hrs prn TRAMADOL HCL 86881681309 Active Andre Barreto MD Active AMBIEN 5 MG TABS 1 po a hs prn ZOLPIDEM TARTRATE 25563753404 Active Andre Barreto MD Active BENICAR HCT 40-25 MG TABS Take one by mouth daily OLMESARTAN MEDOXOMIL- HCTZ 14703045934 Active Andre Barreto MD Active HYDROCODONE-ACETAMINOPHEN 5-325 MG TABS 1 po q 6hr PRN Pain HYDROCODONE-ACETAMINOPHEN 5-325 MG TABS 616679 HYDROCODONE-ACETAMINOPHEN Inactive PROZAC 40 MG CAPS 1 cap by mouth at bedtime PROZAC 40 MG CAPS 720512 FLUOXETINE HCL Inactive DICLOFENAC SODIUM 75 MG TBEC 1 tablet by mouth twice daily DICLOFENAC SODIUM 75 MG TBEC 380396 DICLOFENAC SODIUM Inactive SYMBICORT 160-4.5 MCG/ACT AERO 2 puffs inhaled bid SYMBICORT 160-4.5 MCG/ACT AERO BUDESONIDE-FORMOTEROL FUMARATE Inactive ZOFRAN 4 MG TABS 1 po q6hr PRN Nausea ZOFRAN 4 MG TABS 057710 ONDANSETRON HCL Inactive CIPRO 500 MG TAB 1 tablet by mouth twice daily CIPRO 500 MG TAB 094381 CIPROFLOXACIN HCL Inactive Vital Signs Date Name [...] W/DIFF - Chemistry sodium, serum 145 mmol/L 253-189 9695/12/19 potassium, serum 4.3 mmol/L 3.5-5.2 chloride, serum 104 mmol/L 98-107 carbon dioxide, venous blood 29.9 mmol/L 21.0-32.0 blood glucose 121 mg/dL 65-110 urea nitrogen, blood 17 mg/dL 7-18 creatinine, serum 1.20 mg/dL 0.60-1.30 alanine aminotransferase (SGPT), serum 40 U/L 12-78 aspartate aminotransferase (SGOT), serum 25 U/L 15-37 calcium, serum 9.2 mg/dL 8.5-10.1 bilirubin, serum, total 0.50 mg/dL 0.00-1.00 cholesterol, serum 174 mg/dL 694-206 5088/12/19 triglyceride, serum, fasting 129 mg/dL 30-200 HDL [...] 4.3-6.0 Encounters Code Encounter Date Provider Facility CPT-11025 Level 3 Est. Patient 10:57:31 [employer]NET [employer] Andre Barreto MD [facility] CPT-90646 Level 3 Est. 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 Patient 09:16:12 CDT Andre Barreto MD [facility] CPT-62263 Level 3 Est. Patient 14:50:35 CDT Andre Barreto MD [facility] Procedures Code Procedure Name Date Entry Date Standard Description CPT-Cryo Cryotherapy 08:59:26 [employer]NET [employer]SEM[employer]ER CPT-Cryo Cryotherapy 08:46:02 CDT CPT-15237 Chest 2V Frontal and Lat 14:02:13 [employer]
[2018-03-17] MEDS: HYDROcodone/APAP 10 MG/325 MG (LORTAB) TAB PO PRN ×6 (00:44→23:43)
[2018-03-17 05:31] VITALS: BP 151/81
[2018-03-17 06:11] LABS: BASOPHILS % (AUTO) 0 % (0-10); EOSINOPHILS # (AUTO) 0.2 10^3/uL (0.0-0.3); EOSINOPHILS % (AUTO) 2 % (0-10); HEMATOCRIT 32 % (35-52); HEMOGLOBIN 10.2 G/DL (11.5-16.0); LYMPHOCYTES # (AUTO) 2.3 X 10^3 (1.0-4.0); LYMPHOCYTES % (AUTO) 27 % (12-44); MEAN CORPUSCULAR HEMOGLOBIN 30 PG (25-34); MEAN CORPUSCULAR HGB CONC 32 G/DL (32-36); MEAN CORPUSCULAR VOLUME 95 FL (80-99); MEAN PLATELET VOLUME 9.7 FL (7.4-10.4); MONOCYTES # (AUTO) 0.9 X 10^3 (0.0-1.0); MONOCYTES % (AUTO) 11 % (0-12); NEUTROPHILS # (AUTO) 5.1 X 10^3 (1.8-7.8); NEUTROPHILS % (AUTO) 60 % (42-75); PLATELET COUNT 235 10^3/uL (130-400); RED CELL DISTRIBUTION WIDTH 13.9 % (10.0-14.5)
[2018-03-17 06:17] LABS: WHITE BLOOD COUNT 8.5 10^3/uL (4.3-11.0)
[2018-03-17 06:27] LABS: ALANINE AMINOTRANSFERASE 22 U/L (0-55); ALBUMIN 3.5 GM/DL (3.2-4.5); ALKALINE PHOSPHATASE 81 U/L (40-136); BILIRUBIN,TOTAL 0.3 MG/DL (0.1-1.0); BUN/CREATININE RATIO 22; CALCIUM 9.1 MG/DL (8.5-10.1); CARBON DIOXIDE 30 MMOL/L (21-32); CHLORIDE 101 MMOL/L (98-107); CREATININE SERUM 0.79 MG/DL (0.60-1.30); GFR ESTIMATED > 60; GLUCOSE 105 MG/DL (70-105); SODIUM 137 MMOL/L (135-145); TOTAL PROTEIN 6.4 GM/DL (6.4-8.2)
[2018-03-17] MEDS: RT-ALBUTEROL SULF 2.5 MG/3 ML PRE-MIX VIAL INH SCH ×3 (06:28→20:55)
[2018-03-17] MEDS: RT-ADVAIR HFA 115/21 MCG PER PUFF IH SCH ×2 (06:28→20:55)
[2018-03-17 08:07] VITALS: BP 111/70
[2018-03-17] MEDS: POLYETHYLENE GLYCOL 17 GM (MIRALAX) PACK PO SCH ×2 (08:08→19:55)
[2018-03-17] MEDS: LACTULOSE SYRUP 10GM/15ML (ENULOSE) 30ML UDC PO SCH ×2 (08:09→19:55)
[2018-03-17] MEDS: BACLOFEN 10 MG (LIORESAL) TAB PO SCH ×3 (08:10→19:54)
[2018-03-17] MEDS: DOCUSATE SODIUM 100 MG (COLACE) CAP PO SCH ×2 (08:10→19:54)
[2018-03-17] MEDS: CLOPIDOGREL 75 MG (PLAVIX) TABLET PO SCH (08:10)
[2018-03-17] MEDS: FLUoxetine HCL 20 MG (PROzac) CAP PO SCH (08:12)
[2018-03-17] MEDS: MYRBETRIQ 25 MG PO SCH (08:12)
--- NOTE | 2018-03-17 08:38 | PM&R Progress Note ---
Subjective HPI/CC On Admission Date Seen by Provider: Mar 17, 2018 Time Seen by Provider: 08:45 Subjective/Events-last exam Patient tearful when she does not feel good or can't be as independent as she usually is Xanax offered but declined but then after crying I told nurse to give her one Prozac increased to 40mg as requested yesterday CXR ordered Labs reviewed Obtaining records Cardiology Nikolas Patient reports pain in left knee is intense at times No BM yet and multiple meds were given already Maintained on O2 Hypoxia during exertion has limited PT/OT Home meds will be mostly restarted but mild soft BP limits restarting all of BP meds Review of Systems General: Fatigue Pulmonary: Dyspnea Gastrointestinal: Constipation Musculoskeletal: leg pain (left knee) Neurological: Weakness Objective Exam Vital Signs Vital Signs Date Time Temp Pulse Resp B/P (MAP) Pulse Ox O2 Delivery O2 Flow Rate FiO2 03/17/18 09:06 97 Room Air 03/17/18 08:07 89 111/70 (84) 03/17/18 06:29 2.00 03/17/18 05:31 98.3 18 Capillary Refill : General Appearance: No Apparent Distress, WD/WN HEENT: PERRL/EOMI, TMs Normal, Normal ENT Inspection, Pharynx Normal Neck: Full Range of Motion, Normal Inspection, Non Tender, Supple Respiratory: Chest Non Tender, Lungs Clear, Normal Breath Sounds, No Accessory Muscle Use, No Respiratory Distress Cardiovascular: Regular Rate, Rhythm, No Edema, No Gallop, No JVD, No Murmur, Normal Peripheral Pulses Gastrointestinal: Normal Bowel Sounds, No Organomegaly, No Pulsatile Mass, Non Tender, Soft Back: Normal Inspection, No CVA Tenderness, No Vertebral Tenderness Extremity: Normal Capillary Refill, Normal Inspection, Normal Range of Motion, Non Tender, No Pedal Edema, Swelling (left leg) Neurologic/Psychiatric: Alert, Oriented x3, No Motor/Sensory Deficits, Normal Mood/Affect, pharmacy ancillary II-XII Norm as Tested Skin: Normal Color, Warm/Dry Results/Procedures Lab Laboratory Tests 03/17/18 05:25 Patient resulted labs reviewed. Assessment/Plan Assessment and Plan Assess & Plan/Chief Complaint Assessment: Right total knee replacement POD # 2 Hypoxia requiring supplemental oxygen new onset Chronic bronchitis Anemia s/p surgery DVT prophylaxis with Eliquis DOM on CPAP HTN HLP CAD s/p stent Chronic constipation Depression Anxiety Obesity OAB Insomnia Plan: IRF Monitor depression and hypoxia closely Obtain ECHO and Cardiology records at [facility] (1) Status post left knee replacement (2) Stented coronary artery (3) Oxygen dependent Onset Date: ~ 03/14/2018 (4) DOM on CPAP (5) Tearfulness (6) DVT prophylaxis (7) Anemia due to blood loss, acute (8) Overactive bladder (9) Hypertension (10) Chronic bronchitis (11) Hyperlipidemia (12) Depression (13) CAD (coronary artery disease) (14) Anxiety (15) Insomnia (16) Constipation Clinical Quality Measures DVT/VTE Risk/Contraindication: Risk Factor Score Per Nursin RFS Level Per Nursing on Admit: 4+=Very High TATE TURNER DO Mar 17, 2018 08:38
[2018-03-17] MEDS ORDERED: LOSA1TAB23 PO (08:41)
[2018-03-17] MEDS ORDERED: RT-ALBUINH INH (08:41)
[2018-03-17] MEDS ORDERED: METO-352 PO (08:41)
[2018-03-17] MEDS ORDERED: MIRA25TA PO (08:41)
[2018-03-17] MEDS ORDERED: ATOR20TA66 PO (08:41)
[2018-03-17] MEDS ORDERED: FLUO40CA PO (08:41)
[2018-03-17] MEDS ORDERED: CLOP75TA28 PO (08:41)
[2018-03-17] MEDS ORDERED: ZOLP5TAB7 PO (08:41)
[2018-03-17] MEDS ORDERED: FURO20TA4 PO (08:41)
--- NOTE | 2018-03-17 08:52 | Physical Therapy Evaluation ---
PT Evaluation-General Medical Diagnosis Admission Date Mar 16, 2018 at 18:35 Medical Diagnosis: left TKA Onset Date: Mar 15, 2018 Therapy Diagnosis Therapy Diagnosis: impaired mobility, strength, endurance, ROM Height/Weight Height (Feet): 5 Height (Inches): 3.00 Weight (Pounds): 304 Weight (Ounces): 6.4 Precautions Precautions/Isolations: Fall Prevention, Standard Precautions Weight Bear Status Left Lower Extremity: Left Weight Bearing/Tolerated Referral Physician: Tricia Mccormick DO Reason for Referral: Evaluation/Treatment Medical History Pertinent Medical History: HTN Additional Medical History depression, hypercholesterolemia, SOB, heart disease Reviewed History: Yes Social History Home: Multilevel Current Living Status: Spouse Entry Into Home: Stairs Without Railing PT Steps Into Home: 5 Patient states she will not need to go upstairs at home and that her will not be available to assist her much at home. Prior/Core FIM Prior Level of Function Therapy Code Descriptions/Definitions Functional [place] Measure: 0=Not Assessed/NA 4=Minimal Assistance 1=Total Assistance 5=Supervision or Setup 2=Maximal Assistance 6=Modified [place] 3=Moderate Assistance 7=Complete [place] Therapy Quality Codes: 6 Independent with activity with or without an assistive device 5 Patient requires set up or clean up by helper. Patient completes activity by themselves 4 Supervision or touching assist (CGA). Parthenon provide cues , steadying assist 3 The helper provides less than half the effort to complete the activity 2 The helper provides more than half the effort to complete the activity 1 Dependent. The helper does all the effort to complete an activity 7 Patient refused to complete or attempt activity 9 The patient did not perform the activity before the current illness or injury 88 Not attempted due to Medical conditions or safety concerns Functional Abilities and Goals: Independent: Patient completed the activities by him/herself, with or without an assistive device, with no assistance from a helper. Needed Some Help: Patient needed partial assistance from another person to complete activities. Dependent: A helper completed the activities for the patient. Unknown: Not Applicable: Bed Mobility: 6 Transfers (B,C,W/C) (FIM): 6 Gait: 6 Stairs: 6 Indoor Mobility (Ambulation): Independent Stairs: Independent Patient states she was using a single point cane for ambulation PT Evaluation-Current Subjective Patient in bed pre tx, agrees to PT, has 4/10 pain in left knee at rest. Pt/Family Goals to be independent at home Objective Patient Orientation: Person, Place, Situation, Normal For Age Attachments: Oxygen, Polar Pack ROM/Strength ROM Lower Extremities left knee flexion 70 degrees, extension +5 degrees Strenght Lower Extremities NT due to recent surgery Neuromuscular (Tone, Coordination, Reflexes) NT Sensory Vision: Functional Hearing: Functional Sensation Right Lower Extremit: Intact Sensation Left Lower Extremity: Intact Sensation Lower Extremities Patient has no complaints of numbness or tingling around her left knee. Transfers Therapy Code Descriptions/Definitions Functional [place] Measure: 0=Not Assessed/NA 4=Minimal Assistance 1=Total Assistance 5=Supervision or Setup 2=Maximal Assistance 6=Modified [place] 3=Moderate Assistance 7=Complete [place] Therapy Quality Codes: 6 Independent with activity with or without an assistive device 5 Patient requires set up or clean up by helper. Patient completes activity by themselves 4 Supervision or touching assist (CGA). Parthenon provide cues , steadying assist 3 The helper provides less than half the effort to complete the activity 2 The helper provides more than half the effort to complete the activity 1 Dependent. The helper does all the effort to complete an activity 7 Patient refused to complete or attempt activity 9 The patient did not perform the activity before the current illness or injury 88 Not attempted due to Medical conditions or safety concerns Transfers (B, C, W/C) (FIM): 4 Scootin Rollin Roll Left to Right (QC): 4 Supine to/from Sit: 5 Sit to/from Stand: 4 Sit to Lying (QC): 4 Lying to Sitting/Side of Bed(Q: 4 Sit to Stand (QC): 4 Chair/Uoq-kp-Ozscy Xfer(QC): 4 Patient performs bed mobility with SBA, supine <-> sit with SBA, sit <-> stand with CGA, transfers with CGA. Patient was not able to make it out of the room to perform a car transfer and she got nauseated. Gait Does the Patient Walk?: Yes Mode of Locomotion: Walk Anticipated Mode of Locomotion: Walk Gait (FIM): 1 Walk 10 feet (QC): 4 Distance: 10'x2 Gait Level of Assist: 4 Gait Persons Needed: 1 Gait Assistive Device: FWW Comments/Gait Description Patient can ambulate 10' with a rolling walker with CGA. Gait is antalgic, slow , poor step through on the right side, decreased stance time on the left side. Patient had to go to the bathroom so she ambulated to the toilet and back. After ambulating to the toilet and using it, her O2 was 98% without the oxygen on. Patient became nauseated on the way back from the bathroom and had to sit in a chair with emesis basin. Nurse notified of nausea. It did pass after some time but patient became very anxious and tearful. She was open to performing exercises in the chair. Stairs If not tested on admit;explain Patient was not able to ambulate out of her room, she became nauseated after ambulation and was not able to ambulate more after that. Balance Sitting Static: Normal Sitting Dynamic: Normal Standing Static: Good Standing Dynamic: Good Treatment seated exercises x15, AP, LAQ, hamstring curls, QS (with legs elevated on recliner) Assessment/Needs Patient has impaired mobility, strength, endurance, ROM. She is very anxious and got nauseated with ambulation. Rehab Potential: Fair PT Short Term Goals Short Term Goals Time Frame: Mar 24, 2018 Transfers (B,C,W/C) (FIM): 5 Gait (FIM): 2 Gait Distance Comment: 50' Gait Level of Assist: 5 Gait Assistive Device: FWW Wheelchair Distance: See PT goals PT Log Sorter Goals Log Sorter Goals PT Log Sorter Goals Time Frame: Apr 07, 2018 Transfers (B,C,W/C) (FIM): 6 Sit to Lying (QC): 6 Lying-Sitting on Side/Bed(QC): 6 Sit to Stand (QC): 6 Rollin Roll Left to Right (QC): 6 Chair/Azv-yp-Lxwnp Xfer(QC): 6 Car Transfer (QC): 4 Gait (FIM): 5 Distance: 150' Walk 10 feet (QC): 4 Walk 10ft-Uneven Surface(QC): 4 Walk 50ft with 2 Turns (QC): 4 Walk 150 ft (QC): 4 Gait Level of Assist: 5 Gait Assistive Device: FWW Stairs (FIM): 2 # of Steps: 4 1 Step (curb) (QC): 4 4 Steps (QC): 4 Stairs Level Of Assist: 4 PT Plan Problem List Problem List: Activity Tolerance, Functional Strength, Safety, Balance, Gait, Transfer, Bed Mobility, ROM Treatment/Plan Treatment Plan: Continue Plan of Care Treatment Plan: Bed Mobility, Education, Functional Activity Audie, Functional Strength, Group Therapy, Gait, Safety, Therapeutic Exercise, Transfers Treatment Duration: Apr 07, 2018 Frequency: At least 5 of 7 days/Wk (IRF) Estimated Hrs Per Day: 1.5 hours per day Patient and/or Family Agrees t: Yes Safety Risks/Education Patient Education: Gait Training, Transfer Techniques, Reviewed Use of Ice, Correct Positioning, Safety Issues Teaching Recipient: Patient Teaching Methods: Demonstration, Discussion Response to Teaching: Reinforcement Needed Discharge Recommendations Plan Patient will perform bed mobility and transfer training, balance and endurance training, functional strengthening, stair training, gait training, and education , to improve functional mobility and independence at home. Therapy D/C Recommendations: Home w/ Family Support Time/GCodes Time In: 0800 Time Out: 0900 Total Billed Treatment Time: 60 Total Billed Treatment 1 visit EVM 30' FA 15' GT 15' FIDELINA URENA PT Mar 17, 2018 08:52
[2018-03-17] MEDS ORDERED: MELA10TA2 PO (09:03)
[2018-03-17] MEDS ORDERED: BUDE10.2 IH (09:03)
[2018-03-17] MEDS ORDERED: POTA10TA36 PO (09:03)
[2018-03-17] MEDS ORDERED: TOLT2TAB5 PO (09:03)
[2018-03-17] MEDS ORDERED: METO-333 PO (09:03)
[2018-03-17] MEDS ORDERED: MELO15TA39 PO (09:03)
[2018-03-17] MEDS ORDERED: FLUT1DIS26 INH (09:03)
--- NOTE | 2018-03-17 09:34 | NUR ---
UPDATED THE MED REC TO THE LIST OF MEDICATIONS THE PATIENT WAS TAKING UPON ADMISSION TO [facility]. I USES THE DISCHARGE MED LIST WELL COMPARING WITH THE EXT MED HX AND SPEAKING WITH THE PATIENT DIRECTLY. SHE HAD HER MEDICATION BOTTLES WITH HER WELL. NOTE THE FOLLOWING MEDS WERE STARTED UPON DISCHARGE FROM [facility] THAT ARE NOT CURRENTLY REFLECTED ON THE HOME MED REC: BACLOFEN 10MG TID PRN HYDROCODONE 10-325MG 1-2 TABS Q 4-6 HOURS PRN THE LIST OF MEDS TO CONTINUE WAS NOT ACCURATE ON A FEW MEDICATIONS INCLUDING: *HYZAAR 100-12.5MG DAILY (PATIENT IS TAKING THE 100-25MG DAILY) *METOPROLOL SUCC 25MG DAILY (PATIENT IS TAKING METOPROLOL TARTRATE 25MG DAILY. EXT MED HX SHOWS THE XL50MG BEING FILLED #90 02-02-18 PATIENT STATES THE [facility]IL ORDER [facility] FILLED THIS IN ERROR AND TOLD HER TO JUST CUT THOSE TABLETS IN HALF HOWEVER PRIOR TO THAT SHE FILLED THE METOPROLOL TARTRATE 25MG DAILY #90 12-01-17, SHE IS NOT OUT OF THOSE YET AND THAT IS WHAT SHE HAS BEEN TAKING, WHEN THEY RUN OUT TO WILL SWITCH TO THE 1/2 OF THE METOPROLOL SUCCINATE 50MG) *SYMBICORT 160-4.5 (CHANGED TO ADVAIR 250-50 BID FILLED 02-14-18) *FLUOXETINE 20MG DAILY (PATIENT TAKES 40MG DAILY) IN ADDITION TO WHAT WAS ON THE LIST TO CONTINUE THE PATIENT ALSO TAKES MELATONIN 10MG 2 HS OTC AND MOBIC 15MG DAILY. SHE STATES SHE HAS BEEN HOLDING THE MOBIC FOR SURGERY BUT INTENDS TO RESUME WHEN SHE IS GIVEN THE OK. IN ADDITION TO WHAT IS SHOWN ON THE EXT MED HX THE PATIENT HAS A BOTTLE OF POTASSIUM 10MEQ TABLETS FILLED #90 08-12-16 SHE STATES SHE ONLY TAKES IT PRN WHEN TAKING THE FUROSEMIDE. SHE ALSO HAS A BOTTLE OF TOLTERODINE 2MG BID #180 FILLED 01-07-18.
[2018-03-17] MEDS ORDERED: APIXABAN 2.5 MG (ELIQUIS) TABLET PO ONE (10:45)
--- NOTE | 2018-03-17 12:49 | Pulmonary Consultation ---
History of Present Illness History of Present Illness Date of Consultation 03/17/18 12:44 Time Seen by Provider: 12:44 Date of Admission History of Present Illness 68yo with hx DOM uses CPAP patient directly admitted to IRF from [facility] following a uncomplicated left knee replacement. Pt has been having worsening exertional dyspnea, and hypoxia. Denies productive cough. I am consulted for pulmonary management. Allergies and Home Medications Allergies Coded Allergies: pineapple (Verified Allergy, Severe, ANAPHYLAXIS, 03/16/18) adhesive tape (Verified Allergy, Unknown, 03/16/18) Home Medications Albuterol Sulfate 1 Puff Puff, 1-2 PUFF INH Q4H PRN for SHORTNESS OF BREATH, ( Reported) Atorvastatin Calcium 20 Mg Tablet, 20 MG PO MoWeFr, (Reported) Clopidogrel Bisulfate 75 Mg Tablet, 75 MG PO DAILY, (Reported) Fluoxetine HCl 40 Mg Capsule, 40 MG PO DAILY, (Reported) Fluticasone/Salmeterol 1 Each Blst.w.dev, 1 PUFF INH BID, (Reported) Furosemide 20 Mg Tablet, 20 MG PO DAILY PRN for SWELLING, (Reported) Losartan/Hydrochlorothiazide 1 Each Tablet, 1 TAB PO DAILY, (Reported) Melatonin 10 Mg Tablet, 20 MG PO HS, (Reported) Meloxicam 15 Mg Tablet, 15 MG PO DAILY, (Reported) Metoprolol Tartrate 25 Mg Tablet, 25 MG PO DAILY, (Reported) Mirabegron 25 Mg Tab.er.24h, 25 MG PO DAILY, (Reported) Potassium Chloride 10 Meq Tab.er.prt, 10 MEQ PO DAILY PRN for WHEN TAKING FUROSEMIDE, (Reported) Tolterodine Tartrate 2 Mg Tablet, 2 MG PO BID, (Reported) Zolpidem Tartrate 5 Mg Tablet, 5 MG PO HS, (Reported) Past Ofpzbtd-Fnpcsx-Mscehi Hx Past Med/Social Hx: Reviewed Nursing Past Med/Soc Hx, Reviewed and Corrections made Patient Social History Alcohol Use: Denies Use Recreational Drug Use: No Smoking Status: Never a Smoker Recent Foreign Travel: No Contact w/Someone Who Travel: No Recent Infectious Disease Expo: No Recent Hopitalizations: Yes (left TKR) Immunizations Up To Date Date of Pneumonia Vaccine: Jan 15, 2018 Date of Influenza Vaccine: Feb 01, 2018 Seasonal Allergies Seasonal Allergies: No Past Medical History Abdominal (exp lap appy), Orthopedic Respiratory: Yes Chronic Bronchitis, Sleep Apnea Currently Using CPAP: Yes Currently Using BIPAP: No Cardiac: Yes Chronic Edema/Swelling, Coronary Artery Disease, High Cholesterol, Hypertension Neurological: No Genitourinary: Yes (overactive bladder) Gastrointestinal: No Chronic Constipation Musculoskeletal: Yes Arthritis, Chronic Back Pain Endocrine: No HEENT: No Cancer: No Psychosocial: Yes Anxiety, Depression Integumentary: No Blood Disorders: No Adverse Reaction/Blood Tranf: No Review of Systems Time Seen by Provider: 13:00 Constitutional: Weakness, Malaise; No: Fever, Chills, Sweats, Other Eyes: No: Pain, Vision change, Conjunctivae inflammation, Eyelid inflammation, Other, Redness ENT: Nose congestion Respiratory: Cough, Dry, Shortness of breath, SOB with excertion; No: Wheezing , Hemoptysis Cardiovascular: Paroxysmal Noc. Dyspnea; No: Chest Pain, Palpitations, Orthopnea, Edema, Lt Headedness, Other Gastrointestinal: No: Nausea, Vomiting, Abdominal Pain, Diarrhea, Constipation , Melena, Hematochezia, Other Sepsis Event Evaluation Height, Weight, BMI Height: 5'3.00" Weight: 304lbs. 6.4oz. 138.055744sd; 53.9 BMI Method: Exam Exam Vital Signs Date Time Temp Pulse Resp B/P (MAP) Pulse Ox O2 Delivery O2 Flow Rate FiO2 03/17/18 09:06 97 Room Air 03/17/18 09:00 97 Room Air 03/17/18 08:07 89 111/70 (84) 03/17/18 06:29 96 Nasal Cannula 2.00 03/17/18 06:29 Nasal Cannula 2.00 03/17/18 05:31 98.3 75 18 151/81 (104) 95 NIV CPAP 03/16/18 22:06 Nasal Cannula 2.00 03/16/18 21:32 2.00 03/16/18 20:25 Nasal Cannula 2.00 03/16/18 20:17 96 Nasal Cannula 2.00 03/16/18 18:52 97.2 80 18 114/71 (85) 96 Nasal Cannula 2.00 I & O 03/17/18 07:00 Intake Total 850 ml Balance 850 ml Height & Weight Height: 5'3.00" Weight: 304lbs. 6.4oz. 138.857701gf; 53.9 BMI Method: General Appearance: No Apparent Distress, WD/WN HEENT: PERRL/EOMI, TMs Normal, Normal ENT Inspection, Pharynx Normal Neck: Full Range of Motion, Normal Inspection, Non Tender, Supple Respiratory: Chest Non Tender, Lungs Clear, Normal Breath Sounds, No Accessory Muscle Use, No Respiratory Distress Cardiovascular: Regular Rate, Rhythm, No Edema, No Gallop, No JVD, No Murmur, Normal Peripheral Pulses Extremity: Normal Capillary Refill, Normal Inspection, Normal Range of Motion, Non Tender, No Pedal Edema, Swelling (left leg) Neurologic/Psychiatric: Alert, Oriented x3, No Motor/Sensory Deficits, Normal 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
--- NOTE | 2018-03-17 12:57 | Diagnostic Imaging Report ---
INDICATION: Hypoxia after knee replacement. Comparison made with prior examination from 09/24/2014. PA and lateral views of the chest were obtained. FINDINGS: The heart size, mediastinal configuration, and pulmonary vascularity are within normal limits. There is no pleural effusion, pneumothorax, or pneumonia. The osseous structures are unremarkable. IMPRESSION: No acute cardiopulmonary abnormality. Dictated by: Dictated on workstation # [id number]
--- NOTE | 2018-03-17 13:06 | Occupational Therapy Eval ---
OT Evaluation-General/PLF Medical Diagnosis Admission Date Mar 16, 2018 at 18:35 Medical Diagnosis: left TKA Onset Date: Mar 15, 2018 Therapy Diagnosis Therapy Diagnosis: Decreased ADL skills Height/Weight Height (Feet): 5 Height (Inches): 3.00 Weight (Pounds): 304 Weight (Ounces): 6.4 Precautions Precautions/Isolations: Standard Precautions Safety Interventions: None Weight Bear Status Weight Bearing Restriction: Weight Bearing/Tolerated Referral Physician: Tricia Mccormick DO Referral Reason: Activity Tolerance, Self Care, Evaluation/Treatment, Strengthening/ROM Medical History Pertinent Medical History: HTN Additional Medical History Right knee replacement approximately 8 years ago. Current History Pt. had elective knee surgery. Reviewed History: Yes Social History Home: Single Level Current Living Status: Spouse Entry Into Home: Stairs Without Railing Steps Into Home: 5 ADL-Prior Level of Function Therapy Code Descriptions/Definitions Functional [place] Measure: 0=Not Assessed/NA 4=Minimal Assistance 1=Total Assistance 5=Supervision or Setup 2=Maximal Assistance 6=Modified [place] 3=Moderate Assistance 7=Complete [place] Therapy Quality Codes: 6 Independent with activity with or without an assistive device 5 Patient requires set up or clean up by helper. Patient completes activity by themselves 4 Supervision or touching assist (CGA). [place] provide cues , steadying assist 3 The helper provides less than half the effort to complete the activity 2 The helper provides more than half the effort to complete the activity 1 Dependent. The helper does all the effort to complete an activity 7 Patient refused to complete or attempt activity 9 The patient did not perform the activity before the current illness or injury 88 Not attempted due to Medical conditions or safety concerns Functional Abilities and Goals: Independent: Patient completed the activities by him/herself, with or without an assistive device, with no assistance from a helper. Needed Some Help: Patient needed partial assistance from another person to complete activities. Dependent: A helper completed the activities for the patient. Unknown: Not Applicable: ADL PLOF Comments Pt. states that she was independent with daily tasks, even though LE dressing was difficult for her. Pt. able to drive. Self Care: Independent Functional Cognition: Independent DME/Equipment: Tub/Shower DME/Equipment Comments Pt. has a cane and walker. Uses the cane mostly. Drive Self: Yes OT Current Status Subjective Pt. does not report pain level. Appearance Pt. up in chair. Alert and oriented. Agrees to work with OT. Mental Status/Objective Patient Orientation: Person, Place, Time, Situation Current Upper Extremity ROM WFL Upper Extremity Strength WFL ADL-Treatment Eating (FIM): 6 Eating (QC): 6 Grooming (FIM): 5 (Set up at sink to brush hair and teeth.) Oral Hygiene (QC): 5 Bathing (FIM): 3 (Pt. requires assistance to wash richard areas thoroughly, and to wash bilateral feet.) Shower/Bathe Self (QC): 3 Upper Body Dressing (FIM): 5 Upper Body Dressing (QC): 5 Lower Body Dressing (FIM): 3 (Pt. requires assistance to doff/don slipper socks. Able to don brief and shorts over feet, but min assist to don over hips in stance.) Lower Body Dressing (QC): 3 On/Off Footwear (QC): 2 Toileting (FIM): 3 (Assistance to cleanse self thoroughly after BM.) Toileting Hygiene (QC): 3 Transfers (B, C, W/C) (FIM): 4 (CGA sit-stand and ambulation with walker.) Toilet/Commode Transfer (FIM): 4 Toilet Transfer (QC): 4 Other Treatments Pt. declined showering but states that she would like to spongebathe. Session interrupted briefly due to chest x-ray. Pt. is motivated to complete all ADLs and increase independence for home. Education OT Patient Education: Correct positioning, Modified ADL techniques, Progress toward Goal/Update tx plan, Purpose of tx/functional activities, Reviewed precautions, Rehab process, Transfer techniques Teaching Recipient: Patient Teaching Methods: Demonstration, Discussion Response to Teaching: Verbalize Understanding, Return Demonstration OT Short Term Goals Short Term Goals Time Frame: Mar 24, 2018 Eating(FIM): 6 Grooming(FIM): 6 Bathing(FIM): 5 Upper Body Dressing(FIM): 5 Lower Body Dressing(FIM): 5 Toileting(FIM): 5 Transfers (B,C,W/C) (FIM): 5 Toilet/Commode Transfer(FIM): 5 Shower Transfer(FIM): 5 Additional Short Term Goals: 1-Demonstrate ADL Tasks, 2-Verbalize Understanding , 3-ImproveStrength/Audie 1=Demonstrate adherence to instructed precautions during ADL tasks. 2=Patient will verbalize/demonstrate understanding of assistive devices/ modifications for ADL. 3=Patient will improve strength/tolerance for activity to enable patient to perform ADL's. OT Box Builder Goals Fdc Goals Time Frame: Mar 31, 2018 Eating (FIM): 6 Eating (QC): 6 Groomin Oral Hygiene (QC): 6 Bathing(FIM): 6 Shower/Bathe Self (QC): 6 Upper Body Dressing(FIM): 6 Upper Body Dressing (QC): 6 Lower Body Dressing(FIM): 6 Lower Body Dressing (QC): 6 On/Off Footwear (QC): 6 Toileting(FIM): 6 Toileting Hygiene (QC): 6 Transfers (B,C,W/C) (FIM): 6 Toilet/Commode Transfer(FIM): 6 Toilet/Commode Transfer (QC): 6 Shower Transfer(FIM): 5 Additional Goals: 1-Demonstrate ADL Tasks, 2-Verbalize Understanding, 3- ImproveStrength/Audie 1=Demonstrate adherence to instructed precautions during ADL tasks. 2=Patient will verbalize/demonstrate understanding of assistive devices/ modifications for ADL. 3=Patient will improve strength/tolerance for activity to enable patient to perform ADL's. OT Education/Plan Problem List/Assessment Assessment: Decreased Activ Tolerance, Impaired Funct Balance, Impaired I ADL's , Impaired Self-Care Skills Discharge Recommendations Plan/Recommendations: Continue POC Therapy D/C Recommendations: Home w/ Family Support, Occupational Therapy Home Care Equpiment Recommendations-D/C: Extended Bath Bench, Hip Kit Treatment Plan/Plan of Care Treatment,Training & Education: Yes Patient would benefit from OT for education, treatment and training to promote independence in ADL's, mobility, safety and/or upper extremity function for ADL' s. Plan of Care: ADL Retraining, Functional Mobility, Group Exercise/Act as Ind, UE Funct Exercise/Act Treatment Duration: Mar 31, 2018 Frequency: At least 5 of 7 days/Wk (IRF) Estimated Hrs Per Day: 1.5 hours per day Agreement: Yes Rehab Potential: Good Time/GCodes Start Time: 10:30 Stop Time: 11:55 Total Time Billed (hr/min): 70 Billed Treatment Time 4351-9891 1, EVM x 10minutes, ADL x 30minutes [id number] 1, ADL x 30minutes NACCARATO,BARBARA OT Mar 17, 2018 13:06
--- NOTE | 2018-03-17 13:22 | Occupational Ther Daily Note ---
OT Current Status-Daily Note Subjective Pt alert, lying in bed. Pt stated that she had been hurting and just gotten back into bed and had pain medications. Pt agrees to complete therapy lying in bed. Mental Status/Objective Patient Orientation: Person, Place, Time, Situation Therapy Code Descriptions/Definitions Functional [place] Measure: 0=Not Assessed/NA 4=Minimal Assistance 1=Total Assistance 5=Supervision or Setup 2=Maximal Assistance 6=Modified [place] 3=Moderate Assistance 7=Complete [place] ADL-Treatment Therapy Code Descriptions/Definitions Functional [place] Measure: 0=Not Assessed/NA 4=Minimal Assistance 1=Total Assistance 5=Supervision or Setup 2=Maximal Assistance 6=Modified [place] 3=Moderate Assistance 7=Complete [place] Therapy Quality Codes: 6 Independent with activity with or without an assistive device 5 Patient requires set up or clean up by helper. Patient completes activity by themselves 4 Supervision or touching assist (CGA). [place] provide cues , steadying assist 3 The helper provides less than half the effort to complete the activity 2 The helper provides more than half the effort to complete the activity 1 Dependent. The helper does all the effort to complete an activity 7 Patient refused to complete or attempt activity 9 The patient did not perform the activity before the current illness or injury 88 Not attempted due to Medical conditions or safety concerns Other Treatment Pt will need to use AE for lower body bathing, dressing and toileting. Deployment Engineer , dressing stick, sock aide, long handle sponge and toilet tongs given to pt to use during rehab stay. Pt was educated on how each device is used and pt verbalized understanding of each. Discussion about home bathroom and pt stated that she has a tub/shower. Discussed and educated pt on tub transfer bench and how to use. Pt stated that she has BSC already at home. After therapy, respiratory in room. Call light/phone in reach. All needs met in room. OT Short Term Goals Short Term Goals Time Frame: Mar 24, 2018 Eating(FIM): 6 Grooming(FIM): 6 Bathing(FIM): 5 Upper Body Dressing(FIM): 5 Lower Body Dressing(FIM): 5 Toileting(FIM): 5 Transfers (B,C,W/C) (FIM): 5 Toilet/Commode Transfer(FIM): 5 Shower Transfer(FIM): 5 Additional Short Term Goals: 1-Demonstrate ADL Tasks, 2-Verbalize Understanding , 3-ImproveStrength/Audie 1=Demonstrate adherence to instructed precautions during ADL tasks. 2=Patient will verbalize/demonstrate understanding of assistive devices/ modifications for ADL. 3=Patient will improve strength/tolerance for activity to enable patient to perform ADL's. OT Invoice Clerk Goals Correction Goals Time Frame: Mar 31, 2018 Eating (FIM): 6 Eating (QC): 6 Groomin Oral Hygiene (QC): 6 Bathing(FIM): 6 Shower/Bathe Self (QC): 6 Upper Body Dressing(FIM): 6 Upper Body Dressing (QC): 6 Lower Body Dressing(FIM): 6 Lower Body Dressing (QC): 6 On/Off Footwear (QC): 6 Toileting(FIM): 6 Toileting Hygiene (QC): 6 Transfers (B,C,W/C) (FIM): 6 Toilet/Commode Transfer(FIM): 6 Toilet/Commode Transfer (QC): 6 Shower Transfer(FIM): 5 Additional Goals: 1-Demonstrate ADL Tasks, 2-Verbalize Understanding, 3- ImproveStrength/Audie 1=Demonstrate adherence to instructed precautions during ADL tasks. 2=Patient will verbalize/demonstrate understanding of assistive devices/ modifications for ADL. 3=Patient will improve strength/tolerance for activity to enable patient to perform ADL's. OT Education/Plan Discharge Recommendations Plan/Recommendations: Continue POC Treatment Plan/Plan of Care Patient would benefit from OT for education, treatment and training to promote independence in ADL's, mobility, safety and/or upper extremity function for ADL' s. Plan of Care: ADL Retraining, Functional Mobility, Group Exercise/Act as Ind, UE Funct Exercise/Act Treatment Duration: Mar 31, 2018 Frequency: At least 5 of 7 days/Wk (IRF) Estimated Hrs Per Day: 1.5 hours per day Agreement: Yes Rehab Potential: Good Time/GCodes Start Time: 13:00 Stop Time: 13:20 Total Time Billed (hr/min): 20 Billed Treatment Time 1 visit-FA 1 (20 min) TRISTA JIANG Mar 17, 2018 13:22
--- NOTE | 2018-03-17 14:25 | Physical Therapy Daily Note ---
PT Daily Note-Current Subjective Agrees to PT. Reports she is feeling better this afternoon. Pain Numeric Pain Scale: 8 Location: Left Location Body Site: Knee Pain Description: Ache Mental Status Patient Orientation: Person, Place, Time, Situation Transfers Therapy Code Descriptions/Definitions Functional [place] Measure: 0=Not Assessed/NA 4=Minimal Assistance 1=Total Assistance 5=Supervision or Setup 2=Maximal Assistance 6=Modified [place] 3=Moderate Assistance 7=Complete [place] Therapy Quality Codes: 6 Independent with activity with or without an assistive device 5 Patient requires set up or clean up by helper. Patient completes activity by themselves 4 Supervision or touching assist (CGA). [place] provide cues , steadying assist 3 The helper provides less than half the effort to complete the activity 2 The helper provides more than half the effort to complete the activity 1 Dependent. The helper does all the effort to complete an activity 7 Patient refused to complete or attempt activity 9 The patient did not perform the activity before the current illness or injury 88 Not attempted due to Medical conditions or safety concerns Transfers (B, C, W/C) (FIM): 4 Supine to/from Sit: 4 (assist with left leg in and out of bed. ) Sit to Stand (QC): 4 (min assist to come to a stand) Car Transfer (QC): 4 (assist with left LE) toilet transfer with min assist as well (4). Weight Bearing Left Lower Extremity: Left Weight Bearing/Tolerated Gait Training Does the Patient Walk?: Yes Gait (FIM): 2 Distance (FIM): 8=898-54 ft Distance: 50 ftx2; 100 ft 125 ft. Walk 10 feet (QC): 4 Walk 50 ft with 2 Turns(QC): 4 Walk 150 ft (QC): 88 Gait Assistive Device: FWW slow gait with decreased heel strike and toe off on the left. Stair Training Stair Training: Handrails/: uses walker Stairs (FIM): 1 #of Steps: 1 1 Step (curb) (QC): 4 4 Steps (QC): 88 12 Steps (QC): 88 Stairs: Pattern: Step to Treatments Monitored oxygen sats throughout treatment, her sats were 93% or greater throughout treatment. Nursing notified. Pt was not using oxygen Assessment Current Status: Good Progress Appears to be feeling better this afternoon. PT Short Term Goals Short Term Goals Time Frame: Mar 24, 2018 Transfers (B,C,W/C) (FIM): 5 Gait (FIM): 2 Gait Distance Comment: 50' Gait Level of Assist: 5 Gait Assistive Device: FWW Wheelchair Distance: See PT goals PT Systems Planner Goals Group Home Goals PT Group Home Goals Time Frame: Apr 07, 2018 Transfers (B,C,W/C) (FIM): 6 Sit to Lying (QC): 6 Lying-Sitting on Side/Bed(QC): 6 Sit to Stand (QC): 6 Rollin Roll Left to Right (QC): 6 Chair/[id number] Xfer(QC): 6 Car Transfer (QC): 4 Gait (FIM): 5 Distance: 150' Walk 10 feet (QC): 4 Walk 10ft-Uneven Surface(QC): 4 Walk 50ft with 2 Turns (QC): 4 Walk 150 ft (QC): 4 Gait Level of Assist: 5 Gait Assistive Device: FWW Stairs (FIM): 2 # of Steps: 4 1 Step (curb) (QC): 4 4 Steps (QC): 4 Stairs Level Of Assist: 4 PT Plan Problem List Problem List: Activity Tolerance, Functional Strength, Safety, Balance, Gait, Transfer, Bed Mobility Treatment/Plan Treatment Plan: Continue Plan of Care Treatment Plan: Bed Mobility, Education, Functional Activity Audie, Functional Strength, Group Therapy, Gait, Safety, Therapeutic Exercise, Transfers Treatment Duration: Apr 07, 2018 Frequency: At least 5 of 7 days/Wk (IRF) Estimated Hrs Per Day: 1.5 hours per day Patient and/or Family Agrees t: Yes Safety Risks/Education Patient Education: Transfer Techniques Teaching Recipient: Patient Teaching Methods: Demonstration, Discussion Response to Teaching: Reinforcement Needed Discharge Recommendations Therapy D/C Recommendations: Physical Therapy Home Care Time/GCodes Time In: 1315 Time Out: 1345 Total Billed Treatment Time: 30 Total Billed Treatment visit GT 30 TRISTA SILVA PT Mar 17, 2018 14:25
--- NOTE | 2018-03-17 15:14 | ST Cognitive Linguistic Eval ---
Speech Evaluation-General Medical Diagnosis left TKA Onset Date: Mar 15, 2018 Therapy Diagnosis Therapy Diagnosis: Cognitive-communication Precautions Precautions/Isolations: Standard Precautions Medical History Pertinent Medical History: HTN Reviewed History: Yes Social History Current Living Status: Spouse Speech PLF-Current Status Prior Level of Function Patient lived at home with her prior to the TKR surgery. She managed her daily tasks with his assistance as needed. Subjective Patient was pleasant and cooperative. Language Eval: Auditory Comprehends Simple Yes/No Ques: Functional Indent/Objects [place]: Functional Ident/Pics in [place]: Functional Follows 1-Step Commands: Functional Follows Complex Directions: Functional Follows General Conversations: Functional Language Eval: Verbal Language Completes Spontaneous Greeting: Functional Produces Auto, Serial Info: Functional Imitates Simple Words/Phrases: Functional Word Finding: Functional Requests Basic Needs: Functional States Basic Personal Info: Functional Expresses Complex Ideas: Functional Cognitive Patient Orientation Patient is oriented to all concepts Objective Cognitive Domain Attention: WNL Memory: WNL Problem Solving: Functional Executive Functions: [facility] Objective Formal/Standardized Tests [facility] Cognitive/Communication Results Memory: Immediate 3/3, Delayed 3/3, Orientation 3/3, Problem Solving Simple 5/5 , Complex 5/5, Auditory Processing 5/5 Oral Motor/Speech Production Within Functional Limits Impression Patient s a pleasant 68 year old female who was admitted to the ARU post TKR surgery. She was evaluated for cognitive communication to insure she was able to function safely while a patient on the ARU. Patient tested within functional limits for all areas. Communication/Social Cognition Comprehension: 7 Expression: 7 Social Interaction: 7 Problem Solvin Memory: 7 Speech Patient Assess Expression of Ideas/Wants: Expression (4) Understanding Verbal Content: Understands (4) Brief Interview-Mental Status: Yes Repetition of Three Words: Three (3) Temporal Orientation: Year: Correct (3) Temporal Orientation: Month: Accurate within 5 days(2) Temporal Orientation: Day: Correct (1) Recall : Wear to say "Sock": Yes, no cue required (2) Recall : Color: Yes, no cue required (2) Recall : Bed: Yes, no cue required (2) Memory/Recall Ability: Current season, That he or she is in a hsp/hsp unit Speech-Plan Patient/Family Goals Patient/Family Goals: Patient plans to return home with her post rehab. Treatment Plan Speech Therapy Treatment Plan: Discontinue ST Patient is not recommended for skilled services at this time. Treatment Duration: Mar 17, 2018 Frequency: 1 time per week Estimated Hrs Per Day: .25 hour per day Rehab Potential: Good Barriers to Learning: Patient is experiencing a lot of pain. Safety Risks/Education Teaching Recipient: Patient, Significant Other Teaching Methods: Discussion Response to Teaching: Verbalize Understanding Education Topics Provided: Safety within her room. Time Speech Therapy Time In: 10:00 Speech Therapy Time Out: 10:15 Total Billed Time: 15 Billed Treatment Time 1, SPSNDCOMP MOOKIE Johnston Mar 17, 2018 15:14
[2018-03-17 17:24] VITALS: BP 110/70
--- NOTE | 2018-03-17 17:26 | NUR ---
Patient has remained on room air through the entirety of this shift. Spot O2 checks performed throughout shift. Most physical activity occurred during PT session. O2 saturations remained between 93% and 97% during that time.
[2018-03-17] MEDS: APIXABAN 2.5 MG (ELIQUIS) TABLET PO SCH (19:54)
[2018-03-17] MEDS: TOLTERODINE LA 2 MG (DETROL LA) CAP PO SCH (19:54)
[2018-03-17] MEDS: ZOLPIDEM 5 MG (AMBIEN) TAB PO SCH (19:54)
[2018-03-18] MEDS: HYDROcodone/APAP 10 MG/325 MG (LORTAB) TAB PO PRN ×4 (05:29→23:35)
[2018-03-18 05:43] VITALS: BP 143/71
[2018-03-18] MEDS: RT-ADVAIR HFA 115/21 MCG PER PUFF IH SCH ×2 (06:25→20:11)
[2018-03-18] MEDS: RT-ALBUTEROL SULF 2.5 MG/3 ML PRE-MIX VIAL INH SCH ×4 (06:25→20:11)
[2018-03-18 08:00] VITALS: BP 132/76
[2018-03-18] MEDS: FLUoxetine HCL 20 MG (PROzac) CAP PO SCH (08:07)
[2018-03-18] MEDS: CLOPIDOGREL 75 MG (PLAVIX) TABLET PO SCH (08:07)
[2018-03-18] MEDS: BACLOFEN 10 MG (LIORESAL) TAB PO SCH ×3 (08:07→20:19)
[2018-03-18] MEDS: DOCUSATE SODIUM 100 MG (COLACE) CAP PO SCH ×2 (08:09→20:27)
[2018-03-18] MEDS: MYRBETRIQ 25 MG PO SCH (08:12)
--- NOTE | 2018-03-18 08:30 | NUR ---
DR. TURNER HERE TO SEE PATIENT AND INFORMED OF PATIENT WANTING CPM MACHINE AND REQUESTING DETROL BID INSTEAD OF HS ONLY. DR. TURNER STATES TO CONTINUE PLAVIX AND ELIQUIS FOR DVT PROTECTION.
--- NOTE | 2018-03-18 08:39 | PM&R Progress Note ---
Subjective HPI/CC On Admission Date Seen by Provider: Mar 18, 2018 Time Seen by Provider: 08:45 CC: Debility following left knee replacement uncomplicated per Dr Aleamn HPI: This is a 68yoWF clinic patient of Dr Andre Barreto in [place] who presents to the IRF following DC from [facility] in [place] after an uncomplicated left knee replacement but having debility and significant hypoxia during exertion precluding a fast recovery following elective surgery so she was admitted for Pulmonology consultation along with intense therapy in order to optimize her recovery and return home with her . She had her right knee replaced in 2010 and had a long recovery. Patient is maintained on CPAP for DOM but had not required home O2 in the past but has had extensive cardiac history in [facility] in [place] s/p stent in the past. She has required an increase in her Prozac due to tearfulness while at [place] yesterday along with prn Xanax so that will be monitored closely also. Subjective/Events-last exam Patient doing better Xanax oTID prn Prozac increased to 40mg as requested and tolerating it well Reviewed records Cardiology [place] revealing normal EF s/p BM yet after multiple meds were given Maintained on O2 but on room air most of the time Hypoxia during exertion has limited PT/OT Home meds will be corrected since there are some frequencies that are incorrect Review of Systems General: Fatigue Pulmonary: Dyspnea Objective Exam Vital Signs Vital Signs Date Time Temp Pulse Resp B/P (MAP) Pulse Ox O2 Delivery O2 Flow Rate FiO2 03/18/18 20:18 Room Air 03/18/18 20:11 95 03/18/18 18:00 99.2 78 20 125/65 (85) 03/18/18 14:38 2.00 Capillary Refill : General Appearance: No Apparent Distress, WD/WN HEENT: PERRL/EOMI, TMs Normal, Normal ENT Inspection, Pharynx Normal Neck: Full Range of Motion, Normal Inspection, Non Tender, Supple Respiratory: Chest Non Tender, Lungs Clear, Normal Breath Sounds, No Accessory Muscle Use, No Respiratory Distress Cardiovascular: Regular Rate, Rhythm, No Edema, No Gallop, No JVD, No Murmur, Normal Peripheral Pulses Gastrointestinal: Normal Bowel Sounds, No Organomegaly, No Pulsatile Mass, Non Tender, Soft Back: Normal Inspection, No CVA Tenderness, No Vertebral Tenderness Extremity: Normal Capillary Refill, Normal Inspection, Normal Range of Motion, Non Tender, No Pedal Edema, Swelling (left leg) Neurologic/Psychiatric: Alert, Oriented x3, No Motor/Sensory Deficits, Normal Mood/Affect, screen room operator II-XII Norm as Tested Skin: Normal Color, Warm/Dry Lymphatic: No Adenopathy Results/Procedures Lab Patient resulted labs reviewed. Assessment/Plan Assessment and Plan Assess & Plan/Chief Complaint Assessment: Right total knee replacement POD # 4 Hypoxia requiring supplemental oxygen new onset Chronic bronchitis Anemia s/p surgery DVT prophylaxis with Eliquis DOM on CPAP HTN HLP CAD s/p stent Chronic constipation Depression Anxiety Obesity OAB Insomnia Plan: IRF Monitor depression and hypoxia closely Reviewed ECHO and Cardiology records at [place] (1) Status post left knee replacement (2) Stented coronary artery (3) Oxygen dependent Onset Date: ~ 03/14/2018 (4) DOM on CPAP (5) Tearfulness (6) DVT prophylaxis (7) Anemia due to blood loss, acute (8) Overactive bladder (9) Hypertension (10) Chronic bronchitis (11) Hyperlipidemia (12) Depression (13) CAD (coronary artery disease) (14) Anxiety (15) Insomnia (16) Constipation Clinical Quality Measures DVT/VTE Risk/Contraindication: Risk Factor Score Per Nursin RFS Level Per Nursing on Admit: 4+=Very High TATE TURNER DO Mar 18, 2018 08:39
[2018-03-18] MEDS ORDERED: FUROSEMIDE 20 MG (LASIX) TAB PO PRN (08:45)
--- NOTE | 2018-03-18 09:02 | Occupational Ther Daily Note ---
OT Current Status-Daily Note Subjective Pt alert, lying in bed. Pt agrees to therapy. C/o pain but stated that pain meds had been given 2 hours before would like a muscle relaxer, reported to nrsg. Mental Status/Objective Patient Orientation: Person, Place, Time, Situation Therapy Code Descriptions/Definitions Functional [place] Measure: 0=Not Assessed/NA 4=Minimal Assistance 1=Total Assistance 5=Supervision or Setup 2=Maximal Assistance 6=Modified [place] 3=Moderate Assistance 7=Complete [place] Attachments: IV ADL-Treatment Pt declines shower. Agrees to sponge bath. With HOB raised pt able to go from supine to sitting using bedrail. Ambulated to bathroom using FWW with SBA. Transferred to toilet using grabbars and FWW with SBA. SBA for toileting. Then ambulated to sink for grooming. Pt completed sponge bath and grooming sitting at sink by self. Donned/doffed upper body clothing by self after set up. Using AE for lower body dressing pt able to complete with SBA while standing to hike pants over hips. Pt then ambulated back to recliner. Therapy Code Descriptions/Definitions Functional [place] Measure: 0=Not Assessed/NA 4=Minimal Assistance 1=Total Assistance 5=Supervision or Setup 2=Maximal Assistance 6=Modified [place] 3=Moderate Assistance 7=Complete [place] Therapy Quality Codes: 6 Independent with activity with or without an assistive device 5 Patient requires set up or clean up by helper. Patient completes activity by themselves 4 Supervision or touching assist (CGA). [place] provide cues , steadying assist 3 The helper provides less than half the effort to complete the activity 2 The helper provides more than half the effort to complete the activity 1 Dependent. The helper does all the effort to complete an activity 7 Patient refused to complete or attempt activity 9 The patient did not perform the activity before the current illness or injury 88 Not attempted due to Medical conditions or safety concerns Grooming (FIM): 6 Oral Hygiene (QC): 6 Upper Body (FIM): 5 Upper Body Dressing (QC): 5 Lower Body Dressing (FIM): 5 Lower Body Dressing (QC): 4 On/Off Footwear (QC): 5 Toileting (FIM): 5 Toileting Hygiene (QC): 4 Transfers (B, C, W/C) (FIM): 5 Toilet/Commode Transfer (FIM): 5 Toilet Transfer (QC): 4 Other Treatment HEP for UE theraband given to pt for room use. Pt verbalized understanding of exercises. Will continue to monitor for skilled instruction to increase pt's strength for daily functional tasks. After therapy. pt sitting in recliner with call light/phone in reach. All needs met in room. OT Short Term Goals Short Term Goals Time Frame: Mar 24, 2018 Eating(FIM): 6 Grooming(FIM): 6 Bathing(FIM): 5 Upper Body Dressing(FIM): 5 Lower Body Dressing(FIM): 5 Toileting(FIM): 5 Transfers (B,C,W/C) (FIM): 5 Toilet/Commode Transfer(FIM): 5 Shower Transfer(FIM): 5 Additional Short Term Goals: 1-Demonstrate ADL Tasks, 2-Verbalize Understanding , 3-ImproveStrength/Audie 1=Demonstrate adherence to instructed precautions during ADL tasks. 2=Patient will verbalize/demonstrate understanding of assistive devices/ modifications for ADL. 3=Patient will improve strength/tolerance for activity to enable patient to perform ADL's. OT Fan Installer Goals Fan Installer Goals Time Frame: Mar 31, 2018 Eating (FIM): 6 Eating (QC): 6 Groomin Oral Hygiene (QC): 6 Bathing(FIM): 6 Shower/Bathe Self (QC): 6 Upper Body Dressing(FIM): 6 Upper Body Dressing (QC): 6 Lower Body Dressing(FIM): 6 Lower Body Dressing (QC): 6 On/Off Footwear (QC): 6 Toileting(FIM): 6 Toileting Hygiene (QC): 6 Transfers (B,C,W/C) (FIM): 6 Toilet/Commode Transfer(FIM): 6 Toilet/Commode Transfer (QC): 6 Shower Transfer(FIM): 5 Additional Goals: 1-Demonstrate ADL Tasks, 2-Verbalize Understanding, 3- ImproveStrength/Audie 1=Demonstrate adherence to instructed precautions during ADL tasks. 2=Patient will verbalize/demonstrate understanding of assistive devices/ modifications for ADL. 3=Patient will improve strength/tolerance for activity to enable patient to perform ADL's. OT Education/Plan Discharge Recommendations Plan/Recommendations: Continue POC Treatment Plan/Plan of Care Patient would benefit from OT for education, treatment and training to promote independence in ADL's, mobility, safety and/or upper extremity function for ADL' s. Plan of Care: ADL Retraining, Functional Mobility, Group Exercise/Act as Ind, UE Funct Exercise/Act Treatment Duration: Mar 31, 2018 Frequency: At least 5 of 7 days/Wk (IRF) Estimated Hrs Per Day: 1.5 hours per day Agreement: Yes Rehab Potential: Good Time/GCodes Start Time: 07:00 Stop Time: 08:30 Total Time Billed (hr/min): 90 Billed Treatment Time 1 visit-ADL 5 (75 min) EX 1 (15 min) TRISTA JIANG Mar 18, 2018 09:02
[2018-03-18] MEDS: LACTULOSE SYRUP 10GM/15ML (ENULOSE) 30ML UDC PO SCH ×2 (09:21→20:27)
[2018-03-18] MEDS: APIXABAN 2.5 MG (ELIQUIS) TABLET PO SCH ×2 (09:22→20:19)
[2018-03-18] MEDS: POLYETHYLENE GLYCOL 17 GM (MIRALAX) PACK PO SCH ×2 (09:22→20:28)
[2018-03-18] MEDS ORDERED: KCL 10 MEQ TAB (MICRO K) PO PRN (09:38)
[2018-03-18] MEDS: TOLTERODINE LA 2 MG (DETROL LA) CAP PO SCH ×2 (09:44→20:20)
--- NOTE | 2018-03-18 09:44 | NUR ---
USED OWN TOLTERODINE LA 2 MG. VOICES UNDERSTANDING TO NOT USE OWN ANY MORE. HAVE ORDER TO CONTINUE HERE BID.
--- NOTE | 2018-03-18 10:57 | Physical Therapy Daily Note ---
PT Daily Note-Current Subjective Pt. agrees to Rx and states she has goals of vacationing in [place] in [facility] . Pt. has steps in out of her home and no rails as well as a high bed she will need to negotiate. pt. rates pain in left knee at 3-4/10. Pain Numeric Pain Scale: 4 Location: Left Location Body Site: Knee Pain Description: Heavy Mental Status Patient Orientation: Normal For Age Attachments: SCD's, Other-See Comments (CPM initiated at end of rx as well as polar pack) Transfers Therapy Code Descriptions/Definitions Functional [place] Measure: 0=Not Assessed/NA 4=Minimal Assistance 1=Total Assistance 5=Supervision or Setup 2=Maximal Assistance 6=Modified [place] 3=Moderate Assistance 7=Complete [place] Therapy Quality Codes: 6 Independent with activity with or without an assistive device 5 Patient requires set up or clean up by helper. Patient completes activity by themselves 4 Supervision or touching assist (CGA). [place] provide cues , steadying assist 3 The helper provides less than half the effort to complete the activity 2 The helper provides more than half the effort to complete the activity 1 Dependent. The helper does all the effort to complete an activity 7 Patient refused to complete or attempt activity 9 The patient did not perform the activity before the current illness or injury 88 Not attempted due to Medical conditions or safety concerns Transfers (B, C, W/C) (FIM): 4 Scootin Rollin Supine to/from Sit: 4 (needs assist LLE and occas for trunk) Sit to/from Stand: 6 Weight Bearing Left Lower Extremity: Left Weight Bearing/Tolerated Gait Training Does the Patient Walk?: Yes Gait (FIM): 4 Distance (FIM): 3=150 ft (160, 50,60,70) Gait Level of Assist: 4 Gait Persons Needed: 1 Gait Assistive Device: FWW heavy weight bearing on FWW, antalgic Exercises Supine Ex: Ankle pumps, Quad Set, Rolling, Glut sets, Heel Slides, Short Arc Quads, Scooting, Straight leg raise (assisted) Supine Reps: 20 Seated Therapy Exercises: Ankle pumps, Sit to stand, Long arc quads Seated Reps: 12 NuStep Minutes: 10 NuStep Workload: 3 Treatments pt. toileted requesting assist for pants down up as well as cleaning. Pt. on Nustep utilized for pt. to assist herself for increased flexion as well as to initiate some aerobic training. pt. states she is out of condition. Also educted pt. in breathing exercises for relaxation and proper safety during exercise Assessment Current Status: Good Progress AROM L TKR 10 -60 degrees PT Short Term Goals Short Term Goals Time Frame: Mar 24, 2018 Transfers (B,C,W/C) (FIM): 5 Gait (FIM): 2 Gait Distance Comment: 50' Gait Level of Assist: 5 Gait Assistive Device: FWW Wheelchair Distance: See PT goals PT Security Engineer Goals Security Engineer Goals PT Care Home Goals Time Frame: Apr 07, 2018 Transfers (B,C,W/C) (FIM): 6 Sit to Lying (QC): 6 Lying-Sitting on Side/Bed(QC): 6 Sit to Stand (QC): 6 Rollin Roll Left to Right (QC): 6 Chair/Xdl-ox-Fnbxh Xfer(QC): 6 Car Transfer (QC): 4 Gait (FIM): 5 Distance: 150' Walk 10 feet (QC): 4 Walk 10ft-Uneven Surface(QC): 4 Walk 50ft with 2 Turns (QC): 4 Walk 150 ft (QC): 4 Gait Level of Assist: 5 Gait Assistive Device: FWW Stairs (FIM): 2 # of Steps: 4 1 Step (curb) (QC): 4 4 Steps (QC): 4 Stairs Level Of Assist: 4 PT Plan Treatment/Plan Treatment Plan: Continue Plan of Care Treatment Plan: Bed Mobility, Education, Functional Activity Audie, Functional Strength, Group Therapy, Gait, Safety, Therapeutic Exercise, Transfers Treatment Duration: Apr 07, 2018 Frequency: At least 5 of 7 days/Wk (IRF) Estimated Hrs Per Day: 1.5 hours per day Patient and/or Family Agrees t: Yes Safety Risks/Education Patient Education: Gait Training, Transfer Techniques, Correct Positioning, Disease Process, Safety Issues Teaching Recipient: Patient Teaching Methods: Demonstration, Discussion Response to Teaching: Verbalize Understanding, Return Demonstration, Reinforcement Needed Time/GCodes Time In: 930 Time Out: 1100 Total Billed Treatment Time: 90 Total Billed Treatment 1,EX30m,FA30m,GT30m G Codes Necessary: No KIMBERLY NOONAN INDUSTRIAL CLEANER Mar 18, 2018 10:57
--- NOTE | 2018-03-18 11:06 | Pulmonary Progress Note ---
Subjective Time Seen by a Provider: 11:06 Subjective/Events-last exam No complications noted. Sepsis Event Evaluation Height, Weight, BMI Height: 5'3.00" Weight: 304lbs. 6.4oz. 138.751941xs; 53.9 BMI Method: Exam Exam Vital Signs Date Time Temp Pulse Resp B/P (MAP) Pulse Ox O2 Delivery O2 Flow Rate FiO2 03/18/18 06:27 93 NIV CPAP 2.00 03/18/18 06:26 93 NIV CPAP 2.00 03/18/18 05:43 98.6 78 18 143/71 (95) 96 Room Air 03/17/18 21:06 95 Room Air 03/17/18 20:55 94 Room Air 03/17/18 20:51 Room Air 03/17/18 17:24 98.6 79 110/70 (83) 96 Room Air 03/17/18 13:50 97 Room Air 03/17/18 13:17 96 Nasal Cannula 2.00 I & O 03/18/18 07:00 Intake Total 1650 ml Balance 1650 ml Height & Weight Height: 5'3.00" Weight: 304lbs. 6.4oz. 138.122616mg; 53.9 BMI Method: General Appearance: No Apparent Distress, WD/WN HEENT: PERRL/EOMI, TMs Normal, Normal ENT Inspection, Pharynx Normal Neck: Full Range of Motion, Normal Inspection, Non Tender, Supple Respiratory: Chest Non Tender, Lungs Clear, Normal Breath Sounds, No Accessory Muscle Use, No Respiratory Distress Cardiovascular: Regular Rate, Rhythm, No Edema, No Gallop, No JVD, No Murmur, Normal Peripheral Pulses Extremity: Normal Capillary Refill, Normal Inspection, Normal Range of Motion, Non Tender, No Pedal Edema, Swelling (left leg) Neurologic/Psychiatric: Alert, Oriented x3, No Motor/Sensory Deficits, Normal Mood/Affect, 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
[2018-03-18] MEDS: HYDROCHLOROTHIAZIDE 25 MG (HCTZ) TAB PO SCH (11:17)
[2018-03-18] MEDS: ATORVASTATIN 20 MG (LIPITOR) TABLET PO SCH (11:17)
[2018-03-18] MEDS: LOSARTAN 100 MG (COZAAR) TABLET PO SCH (11:17)
--- NOTE | 2018-03-18 11:47 | Physical Therapy Progress Note ---
Therapy Progress Note Measured and applied CPM 0-65 degrees. TRISTA SILVA PT Mar 18, 2018 11:47
--- NOTE | 2018-03-18 14:00 | NUR ---
STATES CPM RELIEVES PAIN. LEFT KNEE DRESSING PEELING OFF AND ISLAND DRESSING APPLIED. LORTAB ALSO RELIEVES KNEE PAIN.
[2018-03-18 18:00] VITALS: BP 125/65
[2018-03-18] MEDS: ZOLPIDEM 5 MG (AMBIEN) TAB PO SCH (20:19)
[2018-03-19 05:53] VITALS: BP 141/81
[2018-03-19] MEDS: RT-ADVAIR HFA 115/21 MCG PER PUFF IH SCH ×2 (08:19→18:53)
[2018-03-19] MEDS: RT-ALBUTEROL SULF 2.5 MG/3 ML PRE-MIX VIAL INH SCH ×4 (08:19→18:53)
[2018-03-19] MEDS: FLUoxetine HCL 20 MG (PROzac) CAP PO SCH (09:20)
[2018-03-19] MEDS: TOLTERODINE LA 2 MG (DETROL LA) CAP PO SCH ×2 (09:20→20:24)
[2018-03-19] MEDS: HYDROCHLOROTHIAZIDE 25 MG (HCTZ) TAB PO SCH (09:21)
[2018-03-19] MEDS: CLOPIDOGREL 75 MG (PLAVIX) TABLET PO SCH (09:21)
[2018-03-19] MEDS: LACTULOSE SYRUP 10GM/15ML (ENULOSE) 30ML UDC PO SCH ×2 (09:21→21:00)
[2018-03-19] MEDS: APIXABAN 2.5 MG (ELIQUIS) TABLET PO SCH ×2 (09:21→20:24)
[2018-03-19] MEDS: DOCUSATE SODIUM 100 MG (COLACE) CAP PO SCH ×2 (09:21→21:00)
[2018-03-19] MEDS: HYDROcodone/APAP 10 MG/325 MG (LORTAB) TAB PO PRN ×3 (09:21→20:25)
[2018-03-19] MEDS: LOSARTAN 100 MG (COZAAR) TABLET PO SCH (09:21)
[2018-03-19] MEDS: BACLOFEN 10 MG (LIORESAL) TAB PO SCH ×3 (09:21→20:25)
[2018-03-19] MEDS: POLYETHYLENE GLYCOL 17 GM (MIRALAX) PACK PO SCH ×2 (09:22→21:00)
[2018-03-19] MEDS: MYRBETRIQ 25 MG PO SCH (09:24)
--- NOTE | 2018-03-19 11:05 | PM&R Progress Note ---
Subjective HPI/CC On Admission Date Seen by Provider: Mar 19, 2018 Time Seen by Provider: 10:15 CC: Debility following left knee replacement uncomplicated per Dr Aleman HPI: This is a 68yoWF clinic patient of Dr Andre Barreto in [place] who presents to the IRF following DC from [facility] in [place] after an uncomplicated left knee replacement but having debility and significant hypoxia during exertion precluding a fast recovery following elective surgery so she was admitted for Pulmonology consultation along with intense therapy in order to optimize her recovery and return home with her . She had her right knee replaced in 2010 and had a long recovery. Patient is maintained on CPAP for DOM but had not required home O2 in the past but has had extensive cardiac history in [facility] in [place] s/p stent in the past. She has required an increase in her Prozac due to tearfulness while at [place] yesterday along with prn Xanax so that will be monitored closely also. Subjective/Events-last exam Patient doing better and getting stronger O2 now put in her CPAP machine at night Prozac 40mg tolerating well Maintained on O2 but on room air most of the time Hypoxia during exertion has limited PT/OT Pain is controlled [facility] in [place] manages her DME Review of Systems General: Fatigue Pulmonary: Dyspnea Musculoskeletal: leg pain Objective Exam Vital Signs Vital Signs Date Time Temp Pulse Resp B/P (MAP) Pulse Ox O2 Delivery O2 Flow Rate FiO2 03/19/18 11:41 94 Room Air 03/19/18 05:53 97.5 69 20 141/81 (101) 03/18/18 14:38 2.00 Capillary Refill : General Appearance: No Apparent Distress, WD/WN, Obese HEENT: PERRL/EOMI, TMs Normal, Normal ENT Inspection, Pharynx Normal Neck: Full Range of Motion, Normal Inspection, Non Tender, Supple Respiratory: Chest Non Tender, Normal Breath Sounds, No Accessory Muscle Use, No Respiratory Distress, Decreased Breath Sounds Cardiovascular: Regular Rate, Rhythm, No Edema, No Gallop, No JVD, No Murmur, Normal Peripheral Pulses Gastrointestinal: Normal Bowel Sounds, No Organomegaly, No Pulsatile Mass, Non Tender, Soft Back: Normal Inspection, No CVA Tenderness, No Vertebral Tenderness Extremity: Normal Capillary Refill, Normal Inspection, Normal Range of Motion, Non Tender, No Pedal Edema, Swelling (left leg) Neurologic/Psychiatric: Alert, Oriented x3, No Motor/Sensory Deficits, Normal Mood/Affect, stem lead former II-XII Norm as Tested Skin: Normal Color, Warm/Dry Lymphatic: No Adenopathy Results/Procedures Lab Patient resulted labs reviewed. Assessment/Plan Assessment and Plan Assess & Plan/Chief Complaint Assessment: Right total knee replacement POD # 5 Hypoxia requiring supplemental oxygen new onset Chronic bronchitis Anemia s/p surgery DVT prophylaxis with Eliquis DOM on CPAP HTN HLP CAD s/p stent Chronic constipation Depression Anxiety Obesity OAB Insomnia Plan: IRF Monitor depression and hypoxia closely Patient improved today (1) Status post left knee replacement (2) Stented coronary artery (3) Oxygen dependent Onset Date: ~ 03/14/2018 (4) DOM on CPAP (5) Tearfulness (6) DVT prophylaxis (7) Anemia due to blood loss, acute (8) Overactive bladder (9) Hypertension (10) Chronic bronchitis (11) Hyperlipidemia (12) Depression (13) CAD (coronary artery disease) (14) Anxiety (15) Insomnia (16) Constipation Clinical Quality Measures DVT/VTE Risk/Contraindication: Risk Factor Score Per Nursin RFS Level Per Nursing on Admit: 4+=Very High TATE TURNER DO Mar 19, 2018 11:04
--- NOTE | 2018-03-19 12:41 | Physical Therapy Daily Note ---
PT Daily Note-Current Subjective States that she is doing okay. Transfers Therapy Code Descriptions/Definitions Functional [place] Measure: 0=Not Assessed/NA 4=Minimal Assistance 1=Total Assistance 5=Supervision or Setup 2=Maximal Assistance 6=Modified [place] 3=Moderate Assistance 7=Complete [place] Therapy Quality Codes: 6 Independent with activity with or without an assistive device 5 Patient requires set up or clean up by helper. Patient completes activity by themselves 4 Supervision or touching assist (CGA). [place] provide cues , steadying assist 3 The helper provides less than half the effort to complete the activity 2 The helper provides more than half the effort to complete the activity 1 Dependent. The helper does all the effort to complete an activity 7 Patient refused to complete or attempt activity 9 The patient did not perform the activity before the current illness or injury 88 Not attempted due to Medical conditions or safety concerns Transfers (B, C, W/C) (FIM): 4 Supine to/from Sit: 4 Sit to/from Stand: 5 Weight Bearing Left Lower Extremity: Left Weight Bearing/Tolerated Gait Training Gait (FIM): 5 Distance (FIM): 6=353-80 ft Distance: 100' Gait Level of Assist: 5 Gait Persons Needed: 1 Gait Assistive Device: FWW Exercises NuStep Minutes: 10 NuStep Workload: 5 Assessment Current Status: Excellent Progress The patient did well. Patient maintained 95% SpO2 during activities. PT Short Term Goals Short Term Goals Time Frame: Mar 24, 2018 Transfers (B,C,W/C) (FIM): 5 Gait (FIM): 2 Gait Distance Comment: 50' Gait Level of Assist: 5 Gait Assistive Device: FWW Wheelchair Distance: See PT goals PT Correction Goals Drafter Electronic Goals PT Correction Goals Time Frame: Apr 07, 2018 Transfers (B,C,W/C) (FIM): 6 Sit to Lying (QC): 6 Lying-Sitting on Side/Bed(QC): 6 Sit to Stand (QC): 6 Rollin Roll Left to Right (QC): 6 Chair/Blj-ir-Stqfc Xfer(QC): 6 Car Transfer (QC): 4 Gait (FIM): 5 Distance: 150' Walk 10 feet (QC): 4 Walk 10ft-Uneven Surface(QC): 4 Walk 50ft with 2 Turns (QC): 4 Walk 150 ft (QC): 4 Gait Level of Assist: 5 Gait Assistive Device: FWW Stairs (FIM): 2 # of Steps: 4 1 Step (curb) (QC): 4 4 Steps (QC): 4 Stairs Level Of Assist: 4 PT Plan Treatment/Plan Treatment Plan: Continue Plan of Care Treatment Plan: Bed Mobility, Education, Functional Activity Audie, Functional Strength, Group Therapy, Gait, Safety, Therapeutic Exercise, Transfers Treatment Duration: Apr 07, 2018 Frequency: At least 5 of 7 days/Wk (IRF) Estimated Hrs Per Day: 1.5 hours per day Patient and/or Family Agrees t: Yes Time/GCodes Time In: 1210 Time Out: 1240 Total Billed Treatment Time: 30 Total Billed Treatment 1, EX x 15, GT x 15 ARLET YAO PT Mar 19, 2018 12:41
[2018-03-19 18:00] VITALS: BP 120/60
[2018-03-19] MEDS: ZOLPIDEM 5 MG (AMBIEN) TAB PO SCH (20:24)
[2018-03-20] MEDS: HYDROcodone/APAP 10 MG/325 MG (LORTAB) TAB PO PRN ×4 (02:09→20:32)
--- NOTE | 2018-03-20 02:45 | NUR ---
REPORT GIVEN TO ELOINA JONES.
--- NOTE | 2018-03-20 02:58 | NUR ---
REPORT RECEIVED FROM ELOINA PADILLA. ASSUMED CARE AT THIS TIME.
[2018-03-20 05:58] VITALS: BP 134/78
[2018-03-20] MEDS: RT-ALBUTEROL SULF 2.5 MG/3 ML PRE-MIX VIAL INH SCH ×4 (08:21→19:28)
[2018-03-20] MEDS: APIXABAN 2.5 MG (ELIQUIS) TABLET PO SCH ×2 (09:08→20:31)
[2018-03-20] MEDS: FLUoxetine HCL 20 MG (PROzac) CAP PO SCH (09:08)
[2018-03-20] MEDS: TOLTERODINE LA 2 MG (DETROL LA) CAP PO SCH ×2 (09:08→20:31)
[2018-03-20] MEDS: DOCUSATE SODIUM 100 MG (COLACE) CAP PO SCH ×2 (09:08→20:32)
[2018-03-20] MEDS: CLOPIDOGREL 75 MG (PLAVIX) TABLET PO SCH (09:08)
[2018-03-20] MEDS: BACLOFEN 10 MG (LIORESAL) TAB PO SCH ×3 (09:08→20:32)
[2018-03-20] MEDS: POLYETHYLENE GLYCOL 17 GM (MIRALAX) PACK PO SCH ×2 (09:08→20:30)
[2018-03-20] MEDS: LOSARTAN 100 MG (COZAAR) TABLET PO SCH (09:08)
[2018-03-20] MEDS: LACTULOSE SYRUP 10GM/15ML (ENULOSE) 30ML UDC PO SCH ×2 (09:08→20:33)
[2018-03-20] MEDS: HYDROCHLOROTHIAZIDE 25 MG (HCTZ) TAB PO SCH (09:08)
[2018-03-20] MEDS: MYRBETRIQ 25 MG PO SCH (09:10)
--- NOTE | 2018-03-20 10:10 | Pulmonary Progress Note ---
Subjective Date Seen by a Provider: Mar 19, 2018 (Late entry for is 2/3 ) Time Seen by a Provider: 10:10 Subjective/Events-last exam No complications noted. Pt is sitting up in chair Sepsis Event Evaluation Height, Weight, BMI Height: 5'3.00" Weight: 304lbs. 6.4oz. 138.191564po; 53.9 BMI Method: Exam Exam Vital Signs Date Time Temp Pulse Resp B/P (MAP) Pulse Ox O2 Delivery O2 Flow Rate FiO2 03/20/18 08:21 93 Room Air 03/20/18 05:58 97.6 69 18 134/78 (96) 96 Room Air 03/19/18 21:00 Room Air 03/19/18 19:06 Room Air 03/19/18 18:56 97 Room Air 03/19/18 18:00 98.5 75 18 120/60 (80) 95 Room Air 03/19/18 15:17 94 Room Air 03/19/18 11:41 94 Room Air I & O 03/20/18 07:00 Intake Total 1900 ml Balance 1900 ml Height & Weight Height: 5'3.00" Weight: 304lbs. 6.4oz. 138.486743tt; 53.9 BMI Method: General Appearance: No Apparent Distress, WD/WN HEENT: PERRL/EOMI, TMs Normal, Normal ENT Inspection, Pharynx Normal Neck: Full Range of Motion, Normal Inspection, Non Tender, Supple Respiratory: Chest Non Tender, Lungs Clear, Normal Breath Sounds, No Accessory Muscle Use, No Respiratory Distress Cardiovascular: Regular Rate, Rhythm, No Edema, No Gallop, No JVD, No Murmur, Normal Peripheral Pulses Extremity: Normal Capillary Refill, Normal Inspection, Normal Range of Motion, Non Tender, No Pedal Edema, Swelling (left leg) Neurologic/Psychiatric: Alert, Oriented x3, No Motor/Sensory Deficits, Normal Mood/Affect, 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
[2018-03-20] MEDS: RT-ADVAIR HFA 115/21 MCG PER PUFF IH SCH ×2 (11:03→19:29)
--- NOTE | 2018-03-20 12:47 | PM&R Progress Note ---
Subjective HPI/CC On Admission Date Seen by Provider: Mar 20, 2018 Time Seen by Provider: 12:15 CC: Debility following left knee replacement uncomplicated per Dr Aleman HPI: This is a 68yoWF clinic patient of Dr Andre Barreto in [place] who presents to the IRF following DC from [facility] in [place] after an uncomplicated left knee replacement but having debility and significant hypoxia during exertion precluding a fast recovery following elective surgery so she was admitted for Pulmonology consultation along with intense therapy in order to optimize her recovery and return home with her . She had her right knee replaced in 2010 and had a long recovery. Patient is maintained on CPAP for DOM but had not required home O2 in the past but has had extensive cardiac history in [facility] in [place] s/p stent in the past. She has required an increase in her Prozac due to tearfulness while at [place] yesterday along with prn Xanax so that will be monitored closely also. Subjective/Events-last exam Patient doing better and getting stronger, ice machine used left knee O2 maintained in her CPAP machine at night Prozac 40mg tolerating well Maintained on O2 but on room air most of the time Hypoxia during exertion has limited PT/OT so will perform formal home O2 evaluation and may need 6 minute walk if needed Pain is controlled [facility] in [place] manages her DME BM regular Review of Systems General: Fatigue Pulmonary: Dyspnea Musculoskeletal: leg pain Objective Exam Vital Signs Vital Signs Date Time Temp Pulse Resp B/P (MAP) Pulse Ox O2 Delivery O2 Flow Rate FiO2 03/20/18 11:05 Room Air 03/20/18 11:03 94 03/20/18 05:58 97.6 69 18 134/78 (96) 03/18/18 14:38 2.00 Capillary Refill : General Appearance: No Apparent Distress, WD/WN HEENT: PERRL/EOMI, TMs Normal, Normal ENT Inspection, Pharynx Normal Neck: Full Range of Motion, Normal Inspection, Non Tender, Supple Respiratory: Chest Non Tender, Lungs Clear, No Accessory Muscle Use, No Respiratory Distress, Decreased Breath Sounds Cardiovascular: Regular Rate, Rhythm, No Edema, No Gallop, No JVD, No Murmur, Normal Peripheral Pulses Gastrointestinal: Normal Bowel Sounds, No Organomegaly, No Pulsatile Mass, Non Tender, Soft Back: Normal Inspection, No CVA Tenderness, No Vertebral Tenderness Extremity: Normal Capillary Refill, Normal Inspection, Normal Range of Motion, Non Tender, No Pedal Edema, Swelling (left leg) Neurologic/Psychiatric: Alert, Oriented x3, No Motor/Sensory Deficits, Normal Mood/Affect, tie 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 Assessment/Plan Assessment and Plan Assess & Plan/Chief Complaint Assessment: Right total knee replacement POD # 6 Hypoxia requiring supplemental oxygen new onset Chronic bronchitis Anemia s/p surgery DVT prophylaxis with Eliquis DOM on CPAP HTN HLP CAD s/p stent Chronic constipation Depression Anxiety Obesity OAB Insomnia Plan: IRF Monitor depression and hypoxia closely Patient improved today Check labs in am (1) Status post left knee replacement (2) Stented coronary artery (3) Oxygen dependent Onset Date: ~ 03/14/2018 (4) DOM on CPAP (5) Tearfulness (6) DVT prophylaxis (7) Anemia due to blood loss, acute (8) Overactive bladder (9) Hypertension (10) Chronic bronchitis (11) Hyperlipidemia (12) Depression (13) CAD (coronary artery disease) (14) Anxiety (15) Insomnia (16) Constipation Clinical Quality Measures DVT/VTE Risk/Contraindication: Risk Factor Score Per Nursin RFS Level Per Nursing on Admit: 4+=Very High TATE TURNER DO Mar 20, 2018 12:47
--- NOTE | 2018-03-20 16:32 | NUR ---
home oxygen study pt walked on room air with walker and did not require any oxygen spo2 stayed in the 90's, stopped after 4 minutes due to pt pain and returned to pts room, no oxygen required at this time.
[2018-03-20 17:50] VITALS: BP 128/75
[2018-03-20] MEDS: ZOLPIDEM 5 MG (AMBIEN) TAB PO SCH (20:32)
--- NOTE | 2018-03-20 22:40 | NUR ---
REPORT GIVEN TO THERESE, RN
[2018-03-21] MEDS: HYDROcodone/APAP 10 MG/325 MG (LORTAB) TAB PO PRN ×4 (02:07→20:11)
[2018-03-21 05:03] LABS: BASOPHILS % (AUTO) 0 % (0-10); EOSINOPHILS # (AUTO) 0.3 10^3/uL (0.0-0.3); EOSINOPHILS % (AUTO) 3 % (0-10); HEMATOCRIT 33 % (35-52); HEMOGLOBIN 10.6 G/DL (11.5-16.0); LYMPHOCYTES # (AUTO) 2.3 X 10^3 (1.0-4.0); LYMPHOCYTES % (AUTO) 24 % (12-44); MEAN CORPUSCULAR HEMOGLOBIN 30 PG (25-34); MEAN CORPUSCULAR HGB CONC 32 G/DL (32-36); MEAN CORPUSCULAR VOLUME 94 FL (80-99); MEAN PLATELET VOLUME 9.4 FL (7.4-10.4); MONOCYTES # (AUTO) 0.8 X 10^3 (0.0-1.0); MONOCYTES % (AUTO) 9 % (0-12); NEUTROPHILS # (AUTO) 5.9 X 10^3 (1.8-7.8); NEUTROPHILS % (AUTO) 64 % (42-75); PLATELET COUNT 290 10^3/uL (130-400); WHITE BLOOD COUNT 9.3 10^3/uL (4.3-11.0)
[2018-03-21 05:31] LABS: ALANINE AMINOTRANSFERASE 25 U/L (0-55); ALBUMIN 3.5 GM/DL (3.2-4.5); ALKALINE PHOSPHATASE 108 U/L (40-136); BILIRUBIN,TOTAL 0.5 MG/DL (0.1-1.0); BUN/CREATININE RATIO 20; CALCIUM 9.4 MG/DL (8.5-10.1); CARBON DIOXIDE 26 MMOL/L (21-32); CHLORIDE 100 MMOL/L (98-107); CREATININE SERUM 0.76 MG/DL (0.60-1.30); GFR ESTIMATED > 60; GLUCOSE 122 MG/DL (70-105); POTASSIUM 3.9 MMOL/L (3.6-5.0); SODIUM 137 MMOL/L (135-145); TOTAL PROTEIN 6.5 GM/DL (6.4-8.2)
[2018-03-21 06:00] VITALS: BP 125/79
[2018-03-21] MEDS: RT-ADVAIR HFA 115/21 MCG PER PUFF IH SCH (06:35)
[2018-03-21] MEDS: RT-ALBUTEROL SULF 2.5 MG/3 ML PRE-MIX VIAL INH SCH ×3 (06:35→14:57)
--- NOTE | 2018-03-21 07:20 | Occupational Ther Daily Note ---
OT Current Status-Daily Note Subjective Pt alert, lying in bed. Pt agrees to therapy. No c/o pain at this time. Does state that she has rash on her back and had bring cortisone cream for it , reported to nrsg. Mental Status/Objective Patient Orientation: Person, Place, Time, Situation Therapy Code Descriptions/Definitions Functional [place] Measure: 0=Not Assessed/NA 4=Minimal Assistance 1=Total Assistance 5=Supervision or Setup 2=Maximal Assistance 6=Modified [place] 3=Moderate Assistance 7=Complete [place] ADL-Treatment Therapy Code Descriptions/Definitions Functional [place] Measure: 0=Not Assessed/NA 4=Minimal Assistance 1=Total Assistance 5=Supervision or Setup 2=Maximal Assistance 6=Modified [place] 3=Moderate Assistance 7=Complete [place] Therapy Quality Codes: 6 Independent with activity with or without an assistive device 5 Patient requires set up or clean up by helper. Patient completes activity by themselves 4 Supervision or touching assist (CGA). [place] provide cues , steadying assist 3 The helper provides less than half the effort to complete the activity 2 The helper provides more than half the effort to complete the activity 1 Dependent. The helper does all the effort to complete an activity 7 Patient refused to complete or attempt activity 9 The patient did not perform the activity before the current illness or injury 88 Not attempted due to Medical conditions or safety concerns Eating (FIM): 6 (Implants/partial. Pt able to complete by self.) Eating (QC): 6 Bathing (FIM): 6 (Using shower bench, hand held shower, long handle sponge and grabbars is able to complete by self.) Bathing Location: L Arm, R Arm, L Upper Leg, R Upper Leg, L Lower Leg ( including foot), R Lower Leg (including foot), Chest, Abdomen, Buttocks, Perineal Area Shower/Bathe Self (QC): 6 Upper Body (FIM): 5 (After given clothing pt transported clothing with FWW. Pt able to complete by self.) Upper Body Dressing (QC): 5 Lower Body Dressing (FIM): 5 (Pt transports clothing with FWW. Using AE for lower body dressing, pt able to complete by self.) Lower Body Dressing (QC): 5 On/Off Footwear (QC): 5 Toileting (FIM): 5 (Supervision using FWW, BSC and grabbars.) Toileting Hygiene (QC): 4 Transfers (B, C, W/C) (FIM): 5 (Using FWW pt able to complete by self.) Toilet/Commode Transfer (FIM): 5 Toilet Transfer (QC): 4 Shower Transfer(FIM): 5 (Supervision using grabbars, FWW and shower bench.) Pt takes increased time to complete tasks, needs cues to stay on task. After therapy, pt sitting in recliner with call light/phone in reach. All needs met in room. Nrsg in room. OT Short Term Goals Short Term Goals Time Frame: Mar 24, 2018 Eating(FIM): 6 Grooming(FIM): 6 Bathing(FIM): 5 Upper Body Dressing(FIM): 5 Lower Body Dressing(FIM): 5 Toileting(FIM): 5 Transfers (B,C,W/C) (FIM): 5 Toilet/Commode Transfer(FIM): 5 Shower Transfer(FIM): 5 Additional Short Term Goals: 1-Demonstrate ADL Tasks, 2-Verbalize Understanding , 3-ImproveStrength/Audie 1=Demonstrate adherence to instructed precautions during ADL tasks. 2=Patient will verbalize/demonstrate understanding of assistive devices/ modifications for ADL. 3=Patient will improve strength/tolerance for activity to enable patient to perform ADL's. OT Pastry Decorator Goals Pastry Decorator Goals Time Frame: Mar 31, 2018 Eating (FIM): 6 Eating (QC): 6 Groomin Oral Hygiene (QC): 6 Bathing(FIM): 6 Shower/Bathe Self (QC): 6 Upper Body Dressing(FIM): 6 Upper Body Dressing (QC): 6 Lower Body Dressing(FIM): 6 Lower Body Dressing (QC): 6 On/Off Footwear (QC): 6 Toileting(FIM): 6 Toileting Hygiene (QC): 6 Transfers (B,C,W/C) (FIM): 6 Toilet/Commode Transfer(FIM): 6 Toilet/Commode Transfer (QC): 6 Shower Transfer(FIM): 5 Additional Goals: 1-Demonstrate ADL Tasks, 2-Verbalize Understanding, 3- ImproveStrength/Audie 1=Demonstrate adherence to instructed precautions during ADL tasks. 2=Patient will verbalize/demonstrate understanding of assistive devices/ modifications for ADL. 3=Patient will improve strength/tolerance for activity to enable patient to perform ADL's. OT Education/Plan Discharge Recommendations Plan/Recommendations: Continue POC Treatment Plan/Plan of Care Patient would benefit from OT for education, treatment and training to promote independence in ADL's, mobility, safety and/or upper extremity function for ADL' s. Plan of Care: ADL Retraining, Functional Mobility, Group Exercise/Act as Ind, UE Funct Exercise/Act Treatment Duration: Mar 31, 2018 Frequency: At least 5 of 7 days/Wk (IRF) Estimated Hrs Per Day: 1.5 hours per day Agreement: Yes Rehab Potential: Good Time/GCodes Start Time: 07:00 Stop Time: 08:30 Total Time Billed (hr/min): 90 Billed Treatment Time 1 visit-ADL 6 (90 min) TRISTA JIANG Mar 21, 2018 07:20
--- NOTE | 2018-03-21 07:43 | Pulmonary Progress Note ---
Sepsis Event Evaluation Height, Weight, BMI Height: 5'3.00" Weight: 292lbs. 6.4oz. 132.315865of; 53.9 BMI Method: Exam Exam Vital Signs Date Time Temp Pulse Resp B/P (MAP) Pulse Ox O2 Delivery O2 Flow Rate FiO2 03/21/18 06:36 92 Room Air 03/21/18 06:00 98.8 76 18 125/79 (94) 93 Room Air 03/20/18 21:00 Room Air 03/20/18 19:34 Room Air 03/20/18 19:29 93 Room Air 03/20/18 17:50 98.3 78 18 128/75 (92) 93 Room Air 03/20/18 14:40 95 Room Air 03/20/18 11:05 Room Air 03/20/18 11:03 94 Room Air 03/20/18 09:00 Room Air 03/20/18 08:21 93 Room Air I & O 03/21/18 07:00 Intake Total 500 ml Balance 500 ml Height & Weight Height: 5'3.00" Weight: 292lbs. 6.4oz. 132.144636nw; 53.9 BMI Method: General Appearance: No Apparent Distress, WD/WN HEENT: PERRL/EOMI, TMs Normal, Normal ENT Inspection, Pharynx Normal Neck: Full Range of Motion, Normal Inspection, Non Tender, Supple Respiratory: Chest Non Tender, Lungs Clear, No Accessory Muscle Use, No Respiratory Distress, Decreased Breath Sounds Cardiovascular: Regular Rate, Rhythm, No Edema, No Gallop, No JVD, No Murmur, Normal Peripheral Pulses Extremity: Normal Capillary Refill, Normal Inspection, Normal Range of Motion, Non Tender, No Pedal Edema, Swelling (left leg) Neurologic/Psychiatric: Alert, Oriented x3, No Motor/Sensory Deficits, Normal Mood/Affect, air battle manager II-XII Norm as Tested Skin: Normal Color, Warm/Dry Lymphatic: No Adenopathy Results Lab Laboratory Tests 03/21/18 04:10 Assessment/Plan Assessment/Plan Right total knee replacement Hypoxia - probably secondary to atelectasis -Increase activity -IS -SVNs Chronic bronchitis -Will do out patient PFT debility -PT/OT DVT ppx with Eliquis Obesity with DOM - uses CPAP JEFFRY JONES DO Mar 21, 2018 07:43
[2018-03-21] MEDS: APIXABAN 2.5 MG (ELIQUIS) TABLET PO SCH ×2 (08:11→20:11)
[2018-03-21] MEDS: LOSARTAN 100 MG (COZAAR) TABLET PO SCH (08:11)
[2018-03-21] MEDS: DOCUSATE SODIUM 100 MG (COLACE) CAP PO SCH ×2 (08:11→20:11)
[2018-03-21] MEDS: CLOPIDOGREL 75 MG (PLAVIX) TABLET PO SCH (08:11)
[2018-03-21] MEDS: HYDROCHLOROTHIAZIDE 25 MG (HCTZ) TAB PO SCH (08:11)
[2018-03-21] MEDS: FLUoxetine HCL 20 MG (PROzac) CAP PO SCH (08:11)
[2018-03-21] MEDS: BACLOFEN 10 MG (LIORESAL) TAB PO SCH ×3 (08:11→20:12)
[2018-03-21] MEDS: TOLTERODINE LA 2 MG (DETROL LA) CAP PO SCH ×2 (08:11→20:12)
[2018-03-21] MEDS: POLYETHYLENE GLYCOL 17 GM (MIRALAX) PACK PO SCH ×2 (08:12→20:17)
[2018-03-21] MEDS: LACTULOSE SYRUP 10GM/15ML (ENULOSE) 30ML UDC PO SCH ×2 (08:12→20:16)
[2018-03-21] MEDS: MYRBETRIQ 25 MG PO SCH (08:12)
[2018-03-21] MEDS: ATORVASTATIN 20 MG (LIPITOR) TABLET PO SCH (08:12)
--- NOTE | 2018-03-21 08:16 | PM&R Progress Note ---
Subjective HPI/CC On Admission Date Seen by Provider: Mar 21, 2018 Time Seen by Provider: 08:00 CC: Debility following left knee replacement uncomplicated per Dr Aleman HPI: This is a 68yoWF clinic patient of Dr Andre Barreto in [place] who presents to the IRF following DC from [facility] in [place] after an uncomplicated left knee replacement but having debility and significant hypoxia during exertion precluding a fast recovery following elective surgery so she was admitted for Pulmonology consultation along with intense therapy in order to optimize her recovery and return home with her . She had her right knee replaced in 2010 and had a long recovery. Patient is maintained on CPAP for DOM but had not required home O2 in the past but has had extensive cardiac history in [facility] in [place] s/p stent in the past. She has required an increase in her Prozac due to tearfulness while at [place] yesterday along with prn Xanax so that will be monitored closely also. Subjective/Events-last exam Patient doing better and getting stronger, ice machine used on left knee Patient mentioned that she would go to intermediate after this was originally planned but I'm really unsure that that would be necessary since she would complete her aggressive therapy treatment here O2 maintained in her CPAP machine at night but I spoke to pulmonology and he stated that a new sleep study would be needed Patient reported last sleep study was 3 months prior to knee surgery and switched her to BiPAP since she has Pulmonology consultation in [place] Prozac 40mg tolerating well and it appears to be working very well Maintained on room air most of the time Hypoxia during exertion had limited PT/OT at [place] and [facility] on initial admit but home O2 evaluation performed by RT revealed no need for home O2 Pain is controlled on current meds [facility] in [place] manages her DME BM regular Review of Systems General: Fatigue Musculoskeletal: leg pain Objective Exam Vital Signs Vital Signs Date Time Temp Pulse Resp B/P (MAP) Pulse Ox O2 Delivery O2 Flow Rate FiO2 03/21/18 06:36 92 Room Air 03/21/18 06:00 98.8 76 18 125/79 (94) 03/18/18 14:38 2.00 Capillary Refill : General Appearance: No Apparent Distress, WD/WN, Obese HEENT: PERRL/EOMI, TMs Normal, Normal ENT Inspection, Pharynx Normal Neck: Full Range of Motion, Normal Inspection, Non Tender, Supple Respiratory: Chest Non Tender, Lungs Clear, Normal Breath Sounds, No Accessory Muscle Use, No Respiratory Distress, Other (much improved respiratory status now ) Cardiovascular: Regular Rate, Rhythm, No Edema, No Gallop, No JVD, No Murmur, Normal Peripheral Pulses Gastrointestinal: Normal Bowel Sounds, No Organomegaly, No Pulsatile Mass, Non Tender, Soft Back: Normal Inspection, No CVA Tenderness, No Vertebral Tenderness Extremity: Normal Capillary Refill, Normal Inspection, Normal Range of Motion, Non Tender, No Pedal Edema, Swelling (left leg limited ROM) Neurologic/Psychiatric: Alert, Oriented x3, No Motor/Sensory Deficits, Normal Mood/Affect, print 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 Assessment/Plan Assessment and Plan Assess & Plan/Chief Complaint Assessment: Right total knee replacement POD # 7 Hypoxia requiring supplemental oxygen new onset but now weaning very well and it appears that she does not need O2 during day and if needs at night will nee another sleep study Chronic bronchitis Anemia s/p surgery DVT prophylaxis with Eliquis DOM on CPAP HTN HLP CAD s/p stent Chronic constipation Depression Anxiety Obesity OAB Insomnia Plan: IRF to continue Monitor depression and hypoxia closely but doing very well Patient improved today Check labs today and all stable (1) Status post left knee replacement (2) Stented coronary artery (3) Oxygen dependent Onset Date: ~ 03/14/2018 (4) DOM on CPAP (5) Tearfulness (6) DVT prophylaxis (7) Anemia due to blood loss, acute (8) Overactive bladder (9) Hypertension (10) Chronic bronchitis (11) Hyperlipidemia (12) Depression (13) CAD (coronary artery disease) (14) Anxiety (15) Insomnia (16) Constipation Clinical Quality Measures DVT/VTE Risk/Contraindication: Risk Factor Score Per Nursin RFS Level Per Nursing on Admit: 4+=Very High TATE TURNER DO Mar 21, 2018 08:16
--- NOTE | 2018-03-21 10:30 | NUR ---
Pastoral care visit. I shared with pt the availability and support of Chaplains.
--- NOTE | 2018-03-21 11:35 | Physical Therapy Daily Note ---
PT Daily Note-Current Subjective Pt sitting in recliner upon arrival. Pt agrees to PT. Pt is talkative and wanted to give medical history since surgery. Pain Numeric Pain Scale: 5-Moderate Pain Location: Left Location Body Site: Knee Pain Description: Ache, Tightness Mental Status Patient Orientation: Person, Place, Time, Situation Attachments: Polar Pack, Other-See Comments (CPM) Transfers Therapy Code Descriptions/Definitions Functional [place] Measure: 0=Not Assessed/NA 4=Minimal Assistance 1=Total Assistance 5=Supervision or Setup 2=Maximal Assistance 6=Modified [place] 3=Moderate Assistance 7=Complete [place] Therapy Quality Codes: 6 Independent with activity with or without an assistive device 5 Patient requires set up or clean up by helper. Patient completes activity by themselves 4 Supervision or touching assist (CGA). [place] provide cues , steadying assist 3 The helper provides less than half the effort to complete the activity 2 The helper provides more than half the effort to complete the activity 1 Dependent. The helper does all the effort to complete an activity 7 Patient refused to complete or attempt activity 9 The patient did not perform the activity before the current illness or injury 88 Not attempted due to Medical conditions or safety concerns Scootin Rollin Supine to/from Sit: 6 Sit to/from Stand: 6 Sit to Lying (QC): 6 Sit to Stand (QC): 6 Weight Bearing Left Lower Extremity: Left Weight Bearing/Tolerated Gait Training Does the Patient Walk?: Yes Distance (FIM): 3=150 ft Distance: 150' Walk 10 feet (QC): 6 Walk 50 ft with 2 Turns(QC): 6 Walk 150 ft (QC): 5 Gait Level of Assist: 5 Gait Persons Needed: 1 Gait Assistive Device: FWW Pt walks with antalgic gait and stiff L knee to which pt attributes to tape of incision being tight. Wheelchair Training Does the Pt Use a Wheelchair?: No Exercises Seated Therapy Exercises: Ankle pumps, Long arc quads, Hip flexion, Kicking activity Seated Reps: 15 NuStep Minutes: 10 NuStep Workload: 5 Treatments Pt wants to discuss issues she has had with CPM as well as controlling bladder schedule and transfers during night for toileting. WEFT STRAIGHTENER reassures pt. Pt transfers from recliner to standing using FWW at SBA. Pt ambulates in hallway using FWW. Pt uses NuStep for 10m at WL 5. Pt then transfers to chair and completes Seated Ex. Pt ambulates back to room to use restroom then return to bed. Pt ask for polar pack and CPM to be reapplied and CPM adjust for better fit. Pt has all needs met at end of tx. Assessment Current Status: Good Progress Pt is talkative and needs reminders to stay on task at times. Pt is able to get around better than she feels she can. Pt ask for CPM to be turned down from 70' to 50' per Surgeon's request. PT Short Term Goals Short Term Goals Time Frame: Mar 24, 2018 Transfers (B,C,W/C) (FIM): 5 Gait (FIM): 2 Gait Distance Comment: 50' Gait Level of Assist: 5 Gait Assistive Device: FWW Wheelchair Distance: See PT goals PT Long-Term Goals Long-Term Goals PT Petroleum Geologist Goals Time Frame: Apr 07, 2018 Transfers (B,C,W/C) (FIM): 6 Sit to Lying (QC): 6 Lying-Sitting on Side/Bed(QC): 6 Sit to Stand (QC): 6 Rollin Roll Left to Right (QC): 6 Chair/Qhh-uh-Sjonv Xfer(QC): 6 Car Transfer (QC): 4 Gait (FIM): 5 Distance: 150' Walk 10 feet (QC): 4 Walk 10ft-Uneven Surface(QC): 4 Walk 50ft with 2 Turns (QC): 4 Walk 150 ft (QC): 4 Gait Level of Assist: 5 Gait Assistive Device: FWW Stairs (FIM): 2 # of Steps: 4 1 Step (curb) (QC): 4 4 Steps (QC): 4 Stairs Level Of Assist: 4 PT Plan Problem List Problem List: Activity Tolerance, Functional Strength Treatment/Plan Treatment Plan: Continue Plan of Care Treatment Plan: Bed Mobility, Education, Functional Activity Audie, Functional Strength, Group Therapy, Gait, Safety, Therapeutic Exercise, Transfers Treatment Duration: Apr 07, 2018 Frequency: At least 5 of 7 days/Wk (IRF) Estimated Hrs Per Day: 1.5 hours per day Patient and/or Family Agrees t: Yes Safety Risks/Education Patient Education: Gait Training, Transfer Techniques, Reviewed Use of Ice, Correct Positioning, Safety Issues Teaching Recipient: Patient Teaching Methods: Discussion Response to Teaching: Verbalize Understanding Time/GCodes Time In: 830 Time Out: 1000 Total Billed Treatment Time: 90 Total Billed Treatment 1, GT (20m), EX x2 (30m) & FA x3 (40m) G Codes Necessary: CURLY Yu PTA Mar 21, 2018 11:35
[2018-03-21 18:00] VITALS: BP 114/80
--- NOTE | 2018-03-21 19:43 | Individualized Plan of Care ---
Individualized Plan of Care Rehab Nursing IPOC Order Admission Date Mar 16, 2018 at 18:35 Current Orders Orders Admission Order(Inpt,Obs,Sdc) (03/16/18 18:01) Vital Signs: Routine (Order) 08,16,00 (03/16/18 18:01) Diego Hose 09,21 (03/16/18 18:01) Sequential Compression Device 08,20 (03/16/18 18:01) Padded Products Finisher-Inpt Rehab Con (03/16/18 18:01) Rehab Nursing Orders-Ipoc (03/16/18 18:01) Physical Therapy Rehab Orders (03/16/18 18:01) Occupational Therapy Rehab Ord (03/16/18 18:01) Rt Request For Service (03/16/18 18:) Intake & Output 06,14,22 (03/16/18 18:01) Precautions (Aru) (03/16/18 18:01) Daily Weight 06 (03/16/18 18:01) Weekly Weight (Lbs) WEEK (03/16/18 18:01) Rehab-Intensity Of Therapy (03/16/18 18:01) Cbc With Automated Diff (03/17/18 06:00) Comprehensive Metabolic Panel (03/17/18 06:00) Chest Pa/Lat (2 View) (03/17/18 06:00) Albuterol Pre-Mix Nebs (Rt) (Proventil (03/16/18 19:00) Svn Small Volume Nebulizer (03/16/18 18:01) Zolpidem Tablet (Ambien Tablet) (03/16/18 21:00) Code/Resuscitation (03/16/18 18:01) Initiate Admission Nursing Pro .admission (03/16/18 18:01) Hydrocodone/Apap 10/325 Tablet (Lortab 1 (03/16/18 18:15) Baclofen Tablet (Lioresal Tablet) (03/16/18 21:00) Acetaminophen Tablet (Tylenol Tablet) (03/16/18 18:15) Alprazolam Tablet (Xanax Tablet) (03/16/18 18:15) Calcium Carbonate Chew Tablet (Antacid C (03/16/18 18:15) Diphenhydramine Tablet (Benadryl Tablet) (03/16/18 18:15) Docusate Sodium Capsule (Colace Capsule) (03/16/18 21:00) Bisacodyl Suppository (Dulcolax Supposit (03/16/18 18:15) Loperamide Capsule (Imodium Capsule) (03/16/18 18:15) Melatonin Tablet (Melatonin Tablet) (03/16/18 18:15) Polyethylene Glycol Powder Pkt (Miralax (03/16/18 21:00) Lactulose Oral Solution (Enulose Oral So (03/16/18 21:00) Ondansetron Oral Dissolve Tab (Zofran (03/16/18 18:15) Guaifenesin/Codeine Syrup (Robitussin Ac (03/16/18 18:15) Fluticasone/Salmeterol Common (Advair 11 (03/16/18 20:00) Mdi Treatment (03/16/18 18:01) Clopidogrel Tablet (Plavix Tablet) (03/17/18 09:00) Tolterodine La Capsule (Detrol La Capsul (03/16/18 21:00) Fluoxetine Capsule (Prozac Capsule) (03/17/18 09:00) Patient May Use Own Meds, All (Patient M (03/16/18 18:15) Metoprolol Succinate (Xl) Tab (Toprol Xl (03/17/18 09:00) General/Regular (03/16/18 Dinner) Patient's Own Med(Rx Use Only) (Patient' (03/17/18 09:00) Sequential Compression Device 08,20 (03/16/18 19:54) Dvt/Vte Risk - Notifiy Physici 08 (03/16/18 19:54) BNP (03/17/18 06:00) Troponin I (03/17/18 06:00) Apixaban Tablet (Eliquis Tablet) (03/17/18 10:45) Apixaban Tablet (Eliquis Tablet) (03/17/18 21:00) Speech Therapy Rehab Orders (03/17/18 10:55) Patient Visit (03/17/18 ) Speech Sound Lang Comp (03/17/18 ) Patient Visit (03/17/18 ) Pt Eval Moderate Complexity (03/17/18 ) Gait Training, Ea 15 Min (03/17/18 ) Functional Activities, Ea 15 (03/17/18 ) Patient Visit (03/17/18 ) Functional Activities, Ea 15 (03/17/18 ) Gait Training, Ea 15 Min (03/17/18 ) Atorvastatin Tablet (Lipitor Tablet) (03/18/18 09:30) Furosemide Tablet (Lasix Tablet) (03/18/18 08:45) Fluticasone/Salmeterol Common (Advair 11 (03/18/18 20:00) Losartan Tablet (Cozaar Tablet) (03/18/18 09:34) Potassium Chloride (Tablet) (Klor Con Ta (03/18/18 09:38) Tolterodine La Capsule (Detrol La Capsul (03/18/18 09:45) Hydrochlorothiazide Cap/Tablet (Hctz Cap (03/18/18 09:34) Physical Therapy Oder (03/18/18 09:37) Patient Visit (03/18/18 ) Exercise Therap, Ea 15 Min (03/18/18 ) Functional Activities, Ea 15 (03/18/18 ) Gait Training, Ea 15 Min (03/18/18 ) Patient Visit (03/19/18 ) Exercise Therap, Ea 15 Min (03/19/18 ) Gait Training, Ea 15 Min (03/19/18 ) Ambulate W/O 02-Home O2 Qual (03/20/18 12:47) Cbc With Automated Diff (03/21/18 06:00) Comprehensive Metabolic Panel (03/21/18 06:00) Cpoe Transfer Order Process (03/21/18 08:17) Patient Visit (03/21/18 ) Gait Training, Ea 15 Min (03/21/18 ) Exercise Therap, Ea 15 Min (03/21/18 ) Functional Activities, Ea 15 (03/21/18 ) Rehab Nursing Orders: Ongoing Assess. of Function Status, Bowel Management, Disease Management & Educaiton, DVT Prophylaxis, Fall Prevention, Fluid/ Electrolyte/Nutrition Mgmt, Management of Risks & Complications, Safety Management, Wound Management Intensity of Therapy to be met Patient to be seen: Min.3h per day/5 of 7d PT IPOC Problem List: Activity Tolerance, Functional Strength Treatment Plan: Continue Plan of Care Bed Mobility, Education, Functional Activity Audie, Functional Strength, Group Therapy, Gait, Safety, Therapeutic Exercise, Transfers Treatment Duration: Apr 07, 2018 Frequency: At least 5 of 7 days/Wk (IRF) Estimated Hrs Per Day: 1.5 hours per day OT IPOC Problems: Decreased Activ Tolerance, Impaired Funct Balance, Impaired I ADL's, Impaired Self-Care Skills OT Treatment, Training and Edu: Yes Plan of Care: ADL Retraining, Functional Mobility, Group Exercise/Act as Ind, UE Funct Exercise/Act Treatment Duration: Mar 31, 2018 Frequency: At least 5 of 7 days/Wk (IRF) Estimated Hrs Per Day: 1.[address] IPOC Speech Therapy Treatment Plan: Discontinue ST Treatment Duration: Mar 17, 2018 Frequency: 1 time per week Estimated Hrs Per Day: .25 hour per day Padded Products Finisher/Case Mgmt Padded Products Finisher/Case Managemen: Discharge Planning Dietitian/Ceiling Installer Dietitian/Ceiling Installer to monitor nutritional status and make changes and/or recommendations as needed and work with speech pathology on dietary upgrades as the occur. Physician IPOC Medical Issues being managed closely and that require the 24 hour availability of a physician: Severe hypoxia requiring new onset oxygen dependency at admit will require close monitoring along with pulmonology care and oxygen supplementation along with nebulizer treatments DVT prophylaxis maintained on low-dose Eliquis Medical Issues: Bowel/Bladder Function, Falls Precautions, Fluid/Electrolyte/ Nutrition Balance Brief Synthesis of Preadmission Screen, Post-Admission Evaluation, and Therapy Evaluations: Physical therapy will work on ambulation and walker training along with fall prevention Occupational therapy will work on independent ADLs Respiratory therapy will work on oxygen supplementation and lung function Medical Prognosis: good Anticipated Length of Stay: 7 days TATE TURNER DO Mar 21, 2018 19:43
[2018-03-21] MEDS: ZOLPIDEM 5 MG (AMBIEN) TAB PO SCH (20:12)
[2018-03-22 06:10] VITALS: BP 135/76
[2018-03-22] MEDS: HYDROcodone/APAP 10 MG/325 MG (LORTAB) TAB PO PRN ×3 (06:54→18:33)
[2018-03-22] MEDS: RT-ALBUTEROL SULF 2.5 MG/3 ML PRE-MIX VIAL INH SCH ×5 (07:25→23:48)
--- NOTE | 2018-03-22 08:41 | Occupational Ther Daily Note ---
OT Current Status-Daily Note Subjective Pt alert, lying in bed. Pt agrees to therapy. No c/o pain. Mental Status/Objective Patient Orientation: Person, Place, Time, Situation Therapy Code Descriptions/Definitions Functional [place] Measure: 0=Not Assessed/NA 4=Minimal Assistance 1=Total Assistance 5=Supervision or Setup 2=Maximal Assistance 6=Modified [place] 3=Moderate Assistance 7=Complete [place] ADL-Treatment Therapy Code Descriptions/Definitions Functional [place] Measure: 0=Not Assessed/NA 4=Minimal Assistance 1=Total Assistance 5=Supervision or Setup 2=Maximal Assistance 6=Modified [place] 3=Moderate Assistance 7=Complete [place] Therapy Quality Codes: 6 Independent with activity with or without an assistive device 5 Patient requires set up or clean up by helper. Patient completes activity by themselves 4 Supervision or touching assist (CGA). [place] provide cues , steadying assist 3 The helper provides less than half the effort to complete the activity 2 The helper provides more than half the effort to complete the activity 1 Dependent. The helper does all the effort to complete an activity 7 Patient refused to complete or attempt activity 9 The patient did not perform the activity before the current illness or injury 88 Not attempted due to Medical conditions or safety concerns Eating (FIM): 6 (Dentures/implants. Pt able to complete independently) Eating (QC): 6 Grooming (FIM): 6 (Sitting at sink, pt able to complete by self.) Oral Hygiene (QC): 6 Bathing (FIM): 6 (Using long handle sponge, grabbar, hand held shower and shower bench pt able to complete.) Bathing Location: L Arm, R Arm, L Upper Leg, R Upper Leg, L Lower Leg ( including foot), R Lower Leg (including foot), Chest, Abdomen, Buttocks, Perineal Area Shower/Bathe Self (QC): 6 Upper Body (FIM): 6 (Using FWW to retrieve clothing pt able to complete by self.) Upper Body Dressing (QC): 6 Lower Body Dressing (FIM): 6 (Retrieves clothing with FWW and uses AE for lower body dressing, mod I.) Lower Body Dressing (QC): 6 On/Off Footwear (QC): 6 Toileting (FIM): 6 (Using FWW, toilet tongs, BSC and grabbars pt able to complete by self.) Toileting Hygiene (QC): 6 Transfers (B, C, W/C) (FIM): 6 (Using FWW, mod I.) Toilet/Commode Transfer (FIM): 6 (Using FWW, grabbar and BSC) Toilet Transfer (QC): 6 Shower Transfer(FIM): 6 (Using grabbar, shower bench and FWW.) Other Treatment Pt is able to complete HEP UE theraband exercises using light resistance theraband. After therapy, pt lying in bed with call light/phone in reach. All needs met in room. OT Short Term Goals Short Term Goals Time Frame: Mar 24, 2018 Eating(FIM): 6 Grooming(FIM): 6 Bathing(FIM): 5 Upper Body Dressing(FIM): 5 Lower Body Dressing(FIM): 5 Toileting(FIM): 5 Transfers (B,C,W/C) (FIM): 5 Toilet/Commode Transfer(FIM): 5 Shower Transfer(FIM): 5 Additional Short Term Goals: 1-Demonstrate ADL Tasks, 2-Verbalize Understanding , 3-ImproveStrength/Audie 1=Demonstrate adherence to instructed precautions during ADL tasks. 2=Patient will verbalize/demonstrate understanding of assistive devices/ modifications for ADL. 3=Patient will improve strength/tolerance for activity to enable patient to perform ADL's. OT Simulation Analyst Goals [facility] Goals Time Frame: Mar 31, 2018 Eating (FIM): 6 (met) Eating (QC): 6 (met) Groomin (met) Oral Hygiene (QC): 6 (met) Bathing(FIM): 6 (met) Shower/Bathe Self (QC): 6 (met) Upper Body Dressing(FIM): 6 (met) Upper Body Dressing (QC): 6 (met) Lower Body Dressing(FIM): 6 (met) Lower Body Dressing (QC): 6 (met) On/Off Footwear (QC): 6 (met) Toileting(FIM): 6 (met) Toileting Hygiene (QC): 6 (met) Transfers (B,C,W/C) (FIM): 6 (met) Toilet/Commode Transfer(FIM): 6 (met) Toilet/Commode Transfer (QC): 6 (met) Shower Transfer(FIM): 5 (met) Additional Goals: 1-Demonstrate ADL Tasks, 2-Verbalize Understanding, 3- ImproveStrength/Audie 1=Demonstrate adherence to instructed precautions during ADL tasks. 2=Patient will verbalize/demonstrate understanding of assistive devices/ modifications for ADL. 3=Patient will improve strength/tolerance for activity to enable patient to perform ADL's. OT Education/Plan Discharge Recommendations Plan/Recommendations: Continue POC Treatment Plan/Plan of Care Patient would benefit from OT for education, treatment and training to promote independence in ADL's, mobility, safety and/or upper extremity function for ADL' s. Plan of Care: ADL Retraining, Functional Mobility, Group Exercise/Act as Ind, UE Funct Exercise/Act Treatment Duration: Mar 31, 2018 Frequency: At least 5 of 7 days/Wk (IRF) Estimated Hrs Per Day: 1.5 hours per day Agreement: Yes Rehab Potential: Good Time/GCodes Start Time: 07:00 Stop Time: 08:30 Total Time Billed (hr/min): 90 Billed Treatment Time 1 visit-ADL 5 (80 min) EX 1 (10 min) TRISTA JIANG Mar 22, 2018 08:41
[2018-03-22] MEDS: HYDROCHLOROTHIAZIDE 25 MG (HCTZ) TAB PO SCH (09:16)
[2018-03-22] MEDS: FLUoxetine HCL 20 MG (PROzac) CAP PO SCH (09:16)
[2018-03-22] MEDS: TOLTERODINE LA 2 MG (DETROL LA) CAP PO SCH ×2 (09:16→20:48)
[2018-03-22] MEDS: CLOPIDOGREL 75 MG (PLAVIX) TABLET PO SCH (09:16)
[2018-03-22] MEDS: BACLOFEN 10 MG (LIORESAL) TAB PO SCH ×3 (09:16→20:49)
[2018-03-22] MEDS: LOSARTAN 100 MG (COZAAR) TABLET PO SCH (09:16)
[2018-03-22] MEDS: APIXABAN 2.5 MG (ELIQUIS) TABLET PO SCH ×2 (09:16→20:48)
[2018-03-22] MEDS: MYRBETRIQ 25 MG PO SCH (09:18)
[2018-03-22] MEDS: POLYETHYLENE GLYCOL 17 GM (MIRALAX) PACK PO SCH ×2 (09:19→20:49)
[2018-03-22] MEDS: LACTULOSE SYRUP 10GM/15ML (ENULOSE) 30ML UDC PO SCH ×2 (09:19→20:49)
[2018-03-22] MEDS: DOCUSATE SODIUM 100 MG (COLACE) CAP PO SCH ×2 (09:22→20:48)
--- NOTE | 2018-03-22 09:27 | PM&R Progress Note ---
Subjective HPI/CC On Admission Date Seen by Provider: Mar 22, 2018 Time Seen by Provider: 09:00 CC: Debility following left knee replacement uncomplicated per Dr Aleman HPI: This is a 68yoWF clinic patient of Dr Andre Barreto in [place] who presents to the IRF following DC from [facility] in [place] after an uncomplicated left knee replacement but having debility and significant hypoxia during exertion precluding a fast recovery following elective surgery so she was admitted for Pulmonology consultation along with intense therapy in order to optimize her recovery and return home with her . She had her right knee replaced in 2010 and had a long recovery. Patient is maintained on CPAP for DOM but had not required home O2 in the past but has had extensive cardiac history in [facility] in [place] s/p stent in the past. She has required an increase in her Prozac due to tearfulness while at [place] yesterday along with prn Xanax so that will be monitored closely also. Subjective/Events-last exam Patient doing better and getting stronger Patient mentioned that she would go to care home after this was originally planned but I'm really unsure that that would be necessary since she would complete her aggressive therapy treatment here so director will talk to her today O2 maintained in her CPAP machine at night but I spoke to pulmonology and he stated that a new sleep study would be needed Patient maintained on biPAP Prozac 40mg working well for her anxiety and depression Maintained on room air now and has completely weaned off O2 Pain is controlled on current meds [facility] in [place] manages her DME BM regular Pt does not need a nebulizer treatment at home [place] will be removed per Dr. Aleman's plan, I will reach out to him today which resulted in leaving the jeffery in until they see her on 03/29/18 Discharge is planned hopefully in the near future to home instead of a care home No longer requiring supplemental oxygen Maintain on BiPAP at night Review of Systems Musculoskeletal: leg pain Objective Exam Vital Signs Vital Signs Date Time Temp Pulse Resp B/P (MAP) Pulse Ox O2 Delivery O2 Flow Rate FiO2 03/22/18 18:00 99.7 75 20 130/80 (97) 97 Room Air 03/18/18 14:38 2.00 Capillary Refill : General Appearance: No Apparent Distress, WD/WN, Obese HEENT: PERRL/EOMI, TMs Normal, Normal ENT Inspection, Pharynx Normal Neck: Full Range of Motion, Normal Inspection, Non Tender, Supple Respiratory: Chest Non Tender, Lungs Clear, Normal Breath Sounds, No Accessory Muscle Use, No Respiratory Distress, Other (much improved respiratory status now ) Cardiovascular: Regular Rate, Rhythm, No Edema, No Gallop, No JVD, No Murmur, Normal Peripheral Pulses Gastrointestinal: Normal Bowel Sounds, No Organomegaly, No Pulsatile Mass, Non Tender, Soft Back: Normal Inspection, No CVA Tenderness, No Vertebral Tenderness Extremity: Normal Capillary Refill, Normal Inspection, Normal Range of Motion, Non Tender, No Pedal Edema, Swelling (left leg limited ROM) Neurologic/Psychiatric: Alert, Oriented x3, No Motor/Sensory Deficits, Normal Mood/Affect, chicken tender II-XII Norm as Tested Skin: Normal Color, Warm/Dry, Other (no drainage of left staple line left knee and no erythema) Lymphatic: No Adenopathy Results/Procedures Lab Patient resulted labs reviewed. Assessment/Plan Assessment and Plan Assess & Plan/Chief Complaint Assessment: Right total knee replacement POD # 8 Hypoxia requiring supplemental oxygen new onset but now weaned off Chronic bronchitis Anemia s/p surgery DVT prophylaxis with Eliquis DOM on CPAP HTN HLP CAD s/p stent Chronic constipation Depression Anxiety Obesity OAB Insomnia Plan: IRF to continue Monitor left staple incision line Pain control (1) Status post left knee replacement (2) Stented coronary artery (3) Oxygen dependent Onset Date: ~ 03/14/2018 (4) DOM on CPAP (5) Tearfulness (6) DVT prophylaxis (7) Anemia due to blood loss, acute (8) Overactive bladder (9) Hypertension (10) Chronic bronchitis (11) Hyperlipidemia (12) Depression (13) CAD (coronary artery disease) (14) Anxiety (15) Insomnia (16) Constipation Clinical Quality Measures DVT/VTE Risk/Contraindication: Risk Factor Score Per Nursin RFS Level Per Nursing on Admit: 4+=Very High TATE TURNER DO Mar 22, 2018 09:27
--- NOTE | 2018-03-22 11:00 | NUR ---
DR. WOODS'S OFFICE CALLED TO SEE WHEN TAMAR SHOULD BE REMOVED. THEY STATE TO LEAVE THEM IN UNTIL HER FOLLOW UP VISIT ON MARCH 29.
--- NOTE | 2018-03-22 11:29 | Physical Therapy Daily Note ---
PT Daily Note-Current Subjective Pt. agrees to Rx. States she does not want HC PT or O2. Rates pain at 4/10 in left knee at beginning of Rx then up to 8/10 with exercise, back down to 4/10 with some rest. Pain Numeric Pain Scale: 4 Location: Left Location Body Site: Knee Pain Description: Pressure Mental Status Patient Orientation: Normal For Age Transfers Therapy Code Descriptions/Definitions Functional [place] Measure: 0=Not Assessed/NA 4=Minimal Assistance 1=Total Assistance 5=Supervision or Setup 2=Maximal Assistance 6=Modified [place] 3=Moderate Assistance 7=Complete [place] Therapy Quality Codes: 6 Independent with activity with or without an assistive device 5 Patient requires set up or clean up by helper. Patient completes activity by themselves 4 Supervision or touching assist (CGA). [place] provide cues , steadying assist 3 The helper provides less than half the effort to complete the activity 2 The helper provides more than half the effort to complete the activity 1 Dependent. The helper does all the effort to complete an activity 7 Patient refused to complete or attempt activity 9 The patient did not perform the activity before the current illness or injury 88 Not attempted due to Medical conditions or safety concerns Transfers (B, C, W/C) (FIM): 6 Scootin Rollin Roll Left to Right (QC): 6 Supine to/from Sit: 6 Sit to/from Stand: 6 Sit to Lying (QC): 6 Sit to Stand (QC): 6 Chair/Ufq-cy-Fpdle Xfer(QC): 6 Bed to/from Chair: 6 Car Transfer (QC): 6 Weight Bearing Left Lower Extremity: Left Weight Bearing/Tolerated Gait Training Does the Patient Walk?: Yes Gait (FIM): 6 Distance (FIM): 3=150 ft (x2) Walk 10 feet (QC): 6 Walk 50 ft with 2 Turns(QC): 6 Walk 150 ft (QC): 6 Walking 10ft/uneven surface-QC: 6 Gait Level of Assist: 6 Gait Persons Needed: 0 Gait Assistive Device: FWW slow, careful, more even step length, still moderate wt bearing on FWW Stair Training Stair Training: Handrails/: 2 handrails Stairs (FIM): 5 #of Steps: 4 1 Step (curb) (QC): 5 4 Steps (QC): 5 Stairs: Pattern: Step to Level of Assist: 5 household exception Exercises Supine Ex: Ankle pumps, Quad Set, Rolling, Glut sets, Heel Slides, Short Arc Quads, Scooting, Straight leg raise (assist left) Supine Reps: 20 NuStep Minutes: 10 NuStep Workload: 2 Treatments Nustep pt. concentrating on extension with hold and self stretch with hold for flexion Assessment Current Status: Good Progress AROM 10 to 80 degrees. PT Short Term Goals Short Term Goals Time Frame: Mar 24, 2018 Transfers (B,C,W/C) (FIM): 5 Gait (FIM): 2 Gait Distance Comment: 50' Gait Level of Assist: 5 Gait Assistive Device: FWW Wheelchair Distance: See PT goals PT Snf Goals Machine Wood Sander Goals PT Snf Goals Time Frame: Apr 07, 2018 Transfers (B,C,W/C) (FIM): 6 Sit to Lying (QC): 6 Lying-Sitting on Side/Bed(QC): 6 Sit to Stand (QC): 6 Rollin Roll Left to Right (QC): 6 Chair/Ggr-wj-Pvult Xfer(QC): 6 Car Transfer (QC): 4 Gait (FIM): 5 Distance: 150' Walk 10 feet (QC): 4 Walk 10ft-Uneven Surface(QC): 4 Walk 50ft with 2 Turns (QC): 4 Walk 150 ft (QC): 4 Gait Level of Assist: 5 Gait Assistive Device: FWW Stairs (FIM): 2 # of Steps: 4 1 Step (curb) (QC): 4 4 Steps (QC): 4 Stairs Level Of Assist: 4 PT Plan Treatment/Plan Treatment Plan: Continue Plan of Care Treatment Plan: Bed Mobility, Education, Functional Activity Audie, Functional Strength, Group Therapy, Gait, Safety, Therapeutic Exercise, Transfers Treatment Duration: Apr 07, 2018 Frequency: At least 5 of 7 days/Wk (IRF) Estimated Hrs Per Day: 1.5 hours per day Patient and/or Family Agrees t: Yes Safety Risks/Education Patient Education: Gait Training, Transfer Techniques, Steps, Correct Positioning (educated pt. on left TKR extension as pt. keeps knee bent in bed and in "frog leg" position at rest), Disease Process, Safety Issues Teaching Recipient: Patient Teaching Methods: Demonstration, Discussion Response to Teaching: Verbalize Understanding, Return Demonstration, Reinforcement Needed Time/GCodes Time In: 900 Time Out: 1000 Total Billed Treatment Time: 60 Total Billed Treatment 1,EX30m,FA10m,GT20m G Codes Necessary: KIMBERLY Pradhan LEGAL ADMINISTRATIVE ASSISTANT Mar 22, 2018 11:29
[2018-03-22] MEDS: RT-ADVAIR HFA 115/21 MCG PER PUFF IH SCH ×2 (11:49→23:48)
--- NOTE | 2018-03-22 13:03 | Physical Therapy Daily Note ---
PT Daily Note-Current Subjective Pt. agrees to Rx. States she is feeling positive about DC tomorrow. Wants to normalize her gait. Credits herself with giving full effort. Pain Location: No Pain Reported Mental Status Patient Orientation: Normal For Age Transfers Therapy Code Descriptions/Definitions Functional [place] Measure: 0=Not Assessed/NA 4=Minimal Assistance 1=Total Assistance 5=Supervision or Setup 2=Maximal Assistance 6=Modified [place] 3=Moderate Assistance 7=Complete [place] Therapy Quality Codes: 6 Independent with activity with or without an assistive device 5 Patient requires set up or clean up by helper. Patient completes activity by themselves 4 Supervision or touching assist (CGA). [place] provide cues , steadying assist 3 The helper provides less than half the effort to complete the activity 2 The helper provides more than half the effort to complete the activity 1 Dependent. The helper does all the effort to complete an activity 7 Patient refused to complete or attempt activity 9 The patient did not perform the activity before the current illness or injury 88 Not attempted due to Medical conditions or safety concerns TRF in out recliner , toilet and bed mod Indep Weight Bearing Left Lower Extremity: Left Weight Bearing/Tolerated Gait Training Gait Assistive Device: FWW gait 150x2 FWW with improved more equalized step length and fluid movement. still moderate weight bearing on FWW with gait Exercises Supine Ex: Ankle pumps, Heel Slides, Short Arc Quads Supine Reps: 15 Seated Therapy Exercises: Ankle pumps, Sit to stand, Long arc quads, Hip flexion Seated Reps: 15 Treatments seated knee flexion stretches, keeping foot in place as she scooted bottom forward and allowed honest flexion stretch 20 seconds, then back again in chair to rest x 3, Assessment Current Status: Good Progress improved gait pattern PT Short Term Goals Short Term Goals Time Frame: Mar 24, 2018 Transfers (B,C,W/C) (FIM): 5 Gait (FIM): 2 Gait Distance Comment: 50' Gait Level of Assist: 5 Gait Assistive Device: FWW Wheelchair Distance: See PT goals PT Retail Pharmacy Manager Goals Group Home Goals PT Group Home Goals Time Frame: Apr 07, 2018 Transfers (B,C,W/C) (FIM): 6 Sit to Lying (QC): 6 Lying-Sitting on Side/Bed(QC): 6 Sit to Stand (QC): 6 Rollin Roll Left to Right (QC): 6 Chair/Omi-yz-Kifjb Xfer(QC): 6 Car Transfer (QC): 4 Gait (FIM): 5 Distance: 150' Walk 10 feet (QC): 4 Walk 10ft-Uneven Surface(QC): 4 Walk 50ft with 2 Turns (QC): 4 Walk 150 ft (QC): 4 Gait Level of Assist: 5 Gait Assistive Device: FWW Stairs (FIM): 2 # of Steps: 4 1 Step (curb) (QC): 4 4 Steps (QC): 4 Stairs Level Of Assist: 4 PT Plan Treatment/Plan Treatment Plan: Continue Plan of Care Treatment Plan: Bed Mobility, Education, Functional Activity Audie, Functional Strength, Group Therapy, Gait, Safety, Therapeutic Exercise, Transfers Treatment Duration: Apr 07, 2018 Frequency: At least 5 of 7 days/Wk (IRF) Estimated Hrs Per Day: 1.5 hours per day Patient and/or Family Agrees t: Yes Safety Risks/Education Patient Education: Gait Training, Transfer Techniques, Correct Positioning, Disease Process, Safety Issues Teaching Recipient: Patient Teaching Methods: Demonstration, Discussion Response to Teaching: Verbalize Understanding, Return Demonstration, Reinforcement Needed pt. demonstrated ability to lacey polar pack indep Discharge Recommendations Plan 1,GT15m, EX15m Time/GCodes Time In: 1230 Time Out: 1300 Total Billed Treatment Time: 30 Total Billed Treatment 1,EX15m,GT15m G Codes Necessary: KIMBERLY Pradhan GARMENT TURNER Mar 22, 2018 13:03
--- NOTE | 2018-03-22 16:45 | NUR ---
Discharge planning Discussed discharge home with patient. Patient is agreeable to planned discharge on 03/23/18. She would like to receive outpatient PT from [facility]. She denies the need for adaptive equipment, but would like a CPM for home use. Attempted to call regarding the CPM, but unable to reach anyone. Will attempt to call tomorrow morning.
[2018-03-22 18:00] VITALS: BP 130/80
[2018-03-22] MEDS: ZOLPIDEM 5 MG (AMBIEN) TAB PO SCH (20:48)
[2018-03-23] MEDS: HYDROcodone/APAP 10 MG/325 MG (LORTAB) TAB PO PRN ×2 (02:11→08:30)
[2018-03-23 05:02] VITALS: BP 119/75
[2018-03-23] MEDS: RT-ADVAIR HFA 115/21 MCG PER PUFF IH SCH (07:38)
[2018-03-23] MEDS: RT-ALBUTEROL SULF 2.5 MG/3 ML PRE-MIX VIAL INH SCH (07:43)
--- NOTE | 2018-03-23 08:15 | Therapy Team Discharge Summary ---
Therapy Discharge Summary Discharge Recommendations Date of Discharge Therapy D/C Recommendations: Physical Therapy Home Care Physical Therapy Patient came to rehab following a left TKA. Upon evaluation patient performed bed mobility with SBA, supine <-> sit with SBA, sit <-> stand with CGA, transfers with CGA, ambulated 10' with a rolling walker with CGA, no stairs at that time. Patient has been performing bed mobility and transfer training, ROM/ stretching, balance and endurance training, functional strengthening, stair training, gait training, and education. Patient has made good progress and has met all of her longterm goals. Now, patient performs bed mobility and transfers with mod I, car transfer mod I, ambulates 150' with a rolling walker with mod I, and can go up an down 4 steps using 2 handrails with SBA. Patient is discharging from this facility today and will be discharged from PT at this time. Occupational Therapy Decreased Activ Tolerance, Impaired Funct Balance, Impaired I ADL's, Impaired Self-Care Skills PT Snf Goals Snf Goals PT Snf Goals Time Frame: Apr 07, 2018 Transfers (B,C,W/C) (FIM): 6 Roll Left to Right (QC): 6 Sit to Lying (QC): 6 Lying-Sitting on Side/Bed(QC): 6 Sit to Stand (QC): 6 Chair/Zdm-jg-Mamjh Xfer(QC): 6 Car Transfer (QC): 4 Gait (FIM): 5 Distance: 150' Walk 10 feet (QC): 4 Walk 10ft-Uneven Surface(QC): 4 Walk 50ft with 2 Turns (QC): 4 Walk 150 ft (QC): 4 Gait Level of Assist: 5 Gait Assistive Device: FWW Stairs (FIM): 2 # of Steps: 4 1 Step (curb) (QC): 4 4 Steps (QC): 4 Stairs Level Of Assist: 4 OT Snf Goals Occupancy Specialist Goals Time Frame: Mar 31, 2018 Eating (FIM): 6 (met) Eating (QC): 6 (met) Oral Hygiene (QC): 6 (met) Grooming(FIM): 6 (met) Bathing(FIM): 6 (met) Shower/Bathe Self (QC): 6 (met) Upper Body Dressing(FIM): 6 (met) Upper Body Dressing (QC): 6 (met) Lower Body Dressing(FIM): 6 (met) Lower Body Dressing (QC): 6 (met) On/Off Footwear (QC): 6 (met) Toileting(FIM): 6 (met) Toileting Hygiene (QC): 6 (met) Transfers (B,C,W/C) (FIM): 6 (met) Toilet/Commode Transfer(FIM): 6 (met) Toilet/Commode Transfer (QC): 6 (met) Shower Transfer(FIM): 5 (met) Additional Goals: 1-Demonstrate ADL Tasks, 2-Verbalize Understanding, 3- ImproveStrength/Audie 1=Demonstrate adherence to instructed precautions during ADL tasks. 2=Patient will verbalize/demonstrate understanding of assistive devices/ modifications for ADL. 3=Patient will improve strength/tolerance for activity to enable patient to perform ADL's. FIDELINA URENA PT Mar 23, 2018 08:15
[2018-03-23] MEDS: TOLTERODINE LA 2 MG (DETROL LA) CAP PO SCH (08:29)
[2018-03-23] MEDS: HYDROCHLOROTHIAZIDE 25 MG (HCTZ) TAB PO SCH (08:30)
[2018-03-23] MEDS: FLUoxetine HCL 20 MG (PROzac) CAP PO SCH (08:30)
[2018-03-23] MEDS: APIXABAN 2.5 MG (ELIQUIS) TABLET PO SCH (08:30)
[2018-03-23] MEDS: ATORVASTATIN 20 MG (LIPITOR) TABLET PO SCH (08:30)
[2018-03-23] MEDS: LOSARTAN 100 MG (COZAAR) TABLET PO SCH (08:30)
[2018-03-23] MEDS: CLOPIDOGREL 75 MG (PLAVIX) TABLET PO SCH (08:30)
[2018-03-23] MEDS: BACLOFEN 10 MG (LIORESAL) TAB PO SCH (08:30)
--- NOTE | 2018-03-23 08:31 | Therapy Team Discharge Summary ---
Therapy Discharge Summary Discharge Recommendations Date of Discharge 03-23-18 Therapy D/C Recommendations: Home w/ Family Support, Physical Therapy Home Care Occupational Therapy Pt. has been seen by occupational therapy to increase overall strength and independence with daily tasks. Pt. has met all goals. Pt. is able to bathe/ dress/groom with Mod I. Pt. is discharging home with needed equipment and spouse support. No further OT warranted at this time. PT [facility] Goals [facility] Goals PT Clip Riveter Goals Time Frame: Apr 07, 2018 Transfers (B,C,W/C) (FIM): 6 Roll Left to Right (QC): 6 Sit to Lying (QC): 6 Lying-Sitting on Side/Bed(QC): 6 Sit to Stand (QC): 6 Chair/Uth-xm-Rpadk Xfer(QC): 6 Car Transfer (QC): 4 Gait (FIM): 5 Distance: 150' Walk 10 feet (QC): 4 Walk 10ft-Uneven Surface(QC): 4 Walk 50ft with 2 Turns (QC): 4 Walk 150 ft (QC): 4 Gait Level of Assist: 5 Gait Assistive Device: FWW Stairs (FIM): 2 # of Steps: 4 1 Step (curb) (QC): 4 4 Steps (QC): 4 Stairs Level Of Assist: 4 OT [facility] Goals Clip Riveter Goals Time Frame: Mar 31, 2018 Eating (FIM): 6 (met) Eating (QC): 6 (met) Oral Hygiene (QC): 6 (met) Grooming(FIM): 6 (met) Bathing(FIM): 6 (met) Shower/Bathe Self (QC): 6 (met) Upper Body Dressing(FIM): 6 (met) Upper Body Dressing (QC): 6 (met) Lower Body Dressing(FIM): 6 (met) Lower Body Dressing (QC): 6 (met) On/Off Footwear (QC): 6 (met) Toileting(FIM): 6 (met) Toileting Hygiene (QC): 6 (met) Transfers (B,C,W/C) (FIM): 6 (met) Toilet/Commode Transfer(FIM): 6 (met) Toilet/Commode Transfer (QC): 6 (met) Shower Transfer(FIM): 5 (met) Additional Goals: 1-Demonstrate ADL Tasks, 2-Verbalize Understanding, 3- ImproveStrength/Audie 1=Demonstrate adherence to instructed precautions during ADL tasks. 2=Patient will verbalize/demonstrate understanding of assistive devices/ modifications for ADL. 3=Patient will improve strength/tolerance for activity to enable patient to perform ADL's. BARBARA IRBY OT Mar 23, 2018 08:31
[2018-03-23] MEDS: MYRBETRIQ 25 MG PO SCH (08:32)
[2018-03-23] MEDS: POLYETHYLENE GLYCOL 17 GM (MIRALAX) PACK PO SCH (09:00)
[2018-03-23] MEDS: DOCUSATE SODIUM 100 MG (COLACE) CAP PO SCH (09:00)
[2018-03-23] MEDS: LACTULOSE SYRUP 10GM/15ML (ENULOSE) 30ML UDC PO SCH (09:00)
[2018-03-23] MEDS ORDERED: HYDR-3820 PO (09:08)
[2018-03-23] MEDS ORDERED: FLUT1DIS26 INH (09:08)
[2018-03-23] MEDS ORDERED: BACL10TA PO (09:08)
[2018-03-23] MEDS ORDERED: ALPR0.254 PO (09:08)
--- NOTE | 2018-03-23 09:10 | Discharge Summary ---
Diagnosis/Chief Complaint Date of Admission Mar 16, 2018 at 18:35 Date of Discharge Discharge Date: Mar 23, 2018 Discharge Diagnosis Assessment: Right total knee replacement POD # 9 Hypoxia requiring supplemental oxygen new onset but now weaned off Chronic bronchitis Anemia s/p surgery DVT prophylaxis with Eliquis DOM on CPAP HTN HLP CAD s/p stent Chronic constipation Depression Anxiety Obesity OAB Insomnia Discharge Summary Discharge Physical Examination Allergies: Coded Allergies: pineapple (Verified Allergy, Severe, ANAPHYLAXIS, 03/16/18) adhesive tape (Verified Allergy, Unknown, 03/16/18) Vitals & I&Os Vital Signs Date Time Temp Pulse Resp B/P (MAP) Pulse Ox O2 Delivery O2 Flow Rate FiO2 03/23/18 15:24 68 16 119/75 97 Room Air 03/23/18 05:02 97.2 03/18/18 14:38 2.00 Hospital Course Was the Problem List Reviewed?: Yes Hospital course: Patient was admitted to inpatient rehab from [facility] following uncomplicated left knee replacement. She is found to need new onset oxygen supplementation along with shortness of breath limiting her physical therapy so she was admitted to inpatient rehab pulmonology consult ensued chest x-ray was normal along with labs and patient maintain on nebulizer treatments and oxygen supplementation during the entire hospital course until she was weaned from oxygen by time of discharge. She was maintain on low-dose Eliquis for DVT prophylaxis during her time in inpatient rehab until she was fully ambulating and no longer an increased DVT risk. She maintain her BiPAP at night and was in much improved condition and stronger at time of discharge in order to go home with her family. Labs (last 24 hrs) Laboratory Tests 03/17/18 05:25: White Blood Count 8.5, Red Blood Count 3.40L, Hemoglobin 10.2L, Hematocrit 32L, Mean Corpuscular Volume 95, Mean Corpuscular Hemoglobin 30, Mean Corpuscular Hemoglobin Concent 32, Red Cell Distribution Width 13.9, Platelet Count 235, Mean Platelet Volume 9.7, Neutrophils (%) (Auto) 60, Lymphocytes (%) (Auto) 27, Monocytes (%) (Auto) 11, Eosinophils (%) (Auto) 2, Basophils (%) (Auto) 0, Neutrophils # (Auto) 5.1, Lymphocytes # (Auto) 2.3, Monocytes # (Auto) 0.9, Eosinophils # (Auto) 0.2, Basophils # (Auto) 0.0, Sodium Level 137, Potassium Level 4.0, Chloride Level 101, Carbon Dioxide Level 30, Anion Gap 6, Blood Urea Nitrogen 17, Creatinine 0.79, Estimat Glomerular Filtration Rate > 60, BUN/ Creatinine Ratio 22, Glucose Level 105, Calcium Level 9.1, Corrected Calcium 9.5 , Total Bilirubin 0.3, Aspartate Amino Transf (AST/SGOT) 25, Alanine Aminotransferase (ALT/SGPT) 22, Alkaline Phosphatase 81, Troponin I < 0.028, B- Type Natriuretic Peptide 109.2H, Total Protein 6.4, Albumin 3.5 03/21/18 04:10: White Blood Count 9.3, Red Blood Count 3.53L, Hemoglobin 10.6L, Hematocrit 33L, Mean Corpuscular Volume 94, Mean Corpuscular Hemoglobin 30, Mean Corpuscular Hemoglobin Concent 32, Red Cell Distribution Width 14.0, Platelet Count 290, Mean Platelet Volume 9.4, Neutrophils (%) (Auto) 64, Lymphocytes (%) (Auto) 24, Monocytes (%) (Auto) 9, Eosinophils (%) (Auto) 3, Basophils (%) (Auto) 0, Neutrophils # (Auto) 5.9, Lymphocytes # (Auto) 2.3, Monocytes # (Auto) 0.8, Eosinophils # (Auto) 0.3, Basophils # (Auto) 0.0, Sodium Level 137, Potassium Level 3.9, Chloride Level 100, Carbon Dioxide Level 26, Anion Gap 11, Blood Urea Nitrogen 15, Creatinine 0.76, Estimat Glomerular Filtration Rate > 60, BUN/ Creatinine Ratio 20, Glucose Level 122H, Calcium Level 9.4, Corrected Calcium 9.8, Total Bilirubin 0.5, Aspartate Amino Transf (AST/SGOT) 21, Alanine Aminotransferase (ALT/SGPT) 25, Alkaline Phosphatase 108, Total Protein 6.5, Albumin 3.5 Pending Labs Laboratory Tests 03/17/18 05:25: White Blood Count 8.5, Red Blood Count 3.40, Hemoglobin 10.2, Hematocrit 32, Mean Corpuscular Volume 95, Mean Corpuscular Hemoglobin 30, Mean Corpuscular Hemoglobin Concent 32, Red Cell Distribution Width 13.9, Platelet Count 235, Mean Platelet Volume 9.7, Neutrophils (%) (Auto) 60, Lymphocytes (%) (Auto) 27, Monocytes (%) (Auto) 11, Eosinophils (%) (Auto) 2, Basophils (%) (Auto) 0, Neutrophils # (Auto) 5.1, Lymphocytes # (Auto) 2.3, Monocytes # (Auto) 0.9, Eosinophils # (Auto) 0.2, Basophils # (Auto) 0.0, Sodium Level 137, Potassium Level 4.0, Chloride Level 101, Carbon Dioxide Level 30, Anion Gap 6, Blood Urea Nitrogen 17, Creatinine 0.79, Estimat Glomerular Filtration Rate > 60, BUN/ Creatinine Ratio 22, Glucose Level 105, Calcium Level 9.1, Corrected Calcium 9.5 , Total Bilirubin 0.3, Aspartate Amino Transf (AST/SGOT) 25, Alanine Aminotransferase (ALT/SGPT) 22, Alkaline Phosphatase 81, Troponin I < 0.028, B- Type Natriuretic Peptide 109.2, Total Protein 6.4, Albumin 3.5 03/21/18 04:10: White Blood Count 9.3, Red Blood Count 3.53, Hemoglobin 10.6, Hematocrit 33, Mean Corpuscular Volume 94, Mean Corpuscular Hemoglobin 30, Mean Corpuscular Hemoglobin Concent 32, Red Cell Distribution Width 14.0, Platelet Count 290, Mean Platelet Volume 9.4, Neutrophils (%) (Auto) 64, Lymphocytes (%) (Auto) 24, Monocytes (%) (Auto) 9, Eosinophils (%) (Auto) 3, Basophils (%) (Auto) 0, Neutrophils # (Auto) 5.9, Lymphocytes # (Auto) 2.3, Monocytes # (Auto) 0.8, Eosinophils # (Auto) 0.3, Basophils # (Auto) 0.0, Sodium Level 137, Potassium Level 3.9, Chloride Level 100, Carbon Dioxide Level 26, Anion Gap 11, Blood Urea Nitrogen 15, Creatinine 0.76, Estimat Glomerular Filtration Rate > 60, BUN/ Creatinine Ratio 20, Glucose Level 122, Calcium Level 9.4, Corrected Calcium 9.8 , Total Bilirubin 0.5, Aspartate Amino Transf (AST/SGOT) 21, Alanine Aminotransferase (ALT/SGPT) 25, Alkaline Phosphatase 108, Total Protein 6.5, Albumin 3.5 Discharge Home Medications: Active Scripts Active Alprazolam 0.25 Mg Tablet 0.25 Mg PO Q8H PRN Hydrocodon-Acetaminophn 10-325 (Hydrocodone/Acetaminophen) 1 Each Tablet 1 Ea PO Q4H PRN Baclofen 10 Mg Tablet 10 Mg PO TID Advair 250-50 Diskus (Fluticasone/Salmeterol) 1 Each Blst.w.dev 1 Puff INH BID Reported Tolterodine Tartrate 2 Mg Tablet 2 Mg PO BID Potassium Chloride 10 Meq Tab.er.prt 10 Meq PO DAILY PRN Melatonin 10 Mg Tablet 20 Mg PO HS Metoprolol Tartrate 25 Mg Tablet 25 Mg PO DAILY Myrbetriq (Mirabegron) 25 Mg Tab.er.24h 25 Mg PO DAILY Atorvastatin Calcium 20 Mg Tablet 20 Mg PO MOWEFR Fluoxetine HCl 40 Mg Capsule 40 Mg PO DAILY Proair Hfa (Albuterol Sulfate) 1 Puff Puff 1-2 Puff INH Q4H PRN Furosemide 20 Mg Tablet 20 Mg PO DAILY PRN Zolpidem Tartrate 5 Mg Tablet 5 Mg PO HS Clopidogrel (Clopidogrel Bisulfate) 75 Mg Tablet 75 Mg PO DAILY Losartan-Hctz 100-25 mg Tab (Losartan/Hydrochlorothiazide) 1 Each Tablet 1 Tab PO DAILY Instructions to patient/family Please see electronic discharge instructions given to patient. Diagnosis/Problems Diagnosis/Problems (1) Status post left knee replacement (2) Stented coronary artery (3) Oxygen dependent Onset Date: ~ 03/14/2018 (4) DOM on CPAP (5) Tearfulness (6) DVT prophylaxis (7) Anemia due to blood loss, acute (8) Overactive bladder (9) Hypertension (10) Chronic bronchitis (11) Hyperlipidemia (12) Depression (13) CAD (coronary artery disease) (14) Anxiety (15) Insomnia (16) Constipation Clinical Quality Measures DVT/VTE Risk/Contraindication: Risk Factor Score Per Nursin RFS Level Per Nursing on Admit: 4+=Very High TATE TURNER DO Mar 23, 2018 09:10
--- NOTE | 2018-03-23 10:02 | NUR ---
Discharge planning Talked with Meg Shaver regarding home CPM. Insurance will not cover the cost of the CPM since it has been greater than 48 hours since surgery. The cost to rent the machine is $250/month. Discussed this with the patient and she is agreeable to pay the rental fee. Meg informed and she will deliver the CPM machine to the hospital today before noon.
[2018-03-23 15:24] VITALS: BP 119/75
== END 2018-03-23 12:00 | disposition home or self-care (01) | DRG 560 ==
PROVIDERS: ADMIT Internal Medicine; ATTEND Internal Medicine
DX: Z47.1 Aftercare following joint replacement surgery (principal); Z96.652 Presence of left artificial knee joint; R53.1 Weakness; R09.02 Hypoxemia; J98.11 Atelectasis; G47.33 Obstructive sleep apnea (adult) (pediatric); E66.9 Obesity, unspecified; Z68.43 Body mass index [BMI] 50.0-59.9, adult; D62 Acute posthemorrhagic anemia; J42 Unspecified chronic bronchitis; I25.10 Atherosclerotic heart disease of native coronary artery without angina pectoris; I10 Essential (primary) hypertension; E78.5 Hyperlipidemia, unspecified; K59.09 Other constipation; F41.9 Anxiety disorder, unspecified; F32.9 Major depressive disorder, single episode, unspecified; N32.81 Overactive bladder; G47.00 Insomnia, unspecified; Z99.81 Dependence on supplemental oxygen; Z95.5 Presence of coronary angioplasty implant and graft
CPT/HCPCS: 36415; 71046; 80053; 83880; 84484; 85025; 94640; 94760; 94761